=== PATIENT | male | born 1985 | race Caucasian/White ===

== ENCOUNTER 2018-06-25 19:23 | Observation (INO) | payer MEDICARE, SELFPAY ==
[2018-06-25] VITALS (7 sets, daily range): BP systolic 138–164; BP diastolic 56–89; PULSE 94–107; RESP 18–24; TEMP 37.1; O2SAT 90–94; BMI 66.4
--- NOTE | 2018-06-25 19:59 | EKG12_ITS ---
Test Reason : SOB Blood Pressure : / mmHG Vent. Rate : 101 BPM Atrial Rate : 101 BPM P-R Int : 152 ms QRS Dur : 108 ms QT Int : 378 ms P-R-T Axes : 046 071 023 degrees QTc Int : 490 ms Sinus tachycardia Otherwise normal ECG Confirmed by MARCY GONZALEZ, FAN ([id number]), video effects editor HUMBERTO VELEZ ([id number]) on 06/28/2018 3:19:17 PM Referred By: POPPY Confirmed By:FAN VIDAL MD
--- NOTE | 2018-06-25 20:01 | RAD_ITS ---
STUDY: X-RAY CHEST REASON FOR EXAM: Male, 33 years old. Shortness of breath TECHNIQUE: Single frontal view COMPARISON: Frontal and lateral views FINDINGS: The lungs are not fully expanded. There is mild right basilar interstitial prominence. Normal size heart. Normal mediastinum and hair. Normal visualized pulmonary arteries. Normal visualized aortic arch and descending thoracic aorta. Normal visualized thoracic spine. Normal visualized ribs, clavicles, and shoulders. There is no demonstrated abnormality of the visualized soft tissue structures of the upper abdomen. RAD/Chest 1 View (Portable) IMPRESSION: Mild right basilar interstitial prominence. Electronically Signed: Monico Ackerman DO at 20:24 EDT Tel [phone], Service support ,
--- NOTE | 2018-06-25 20:01 | ED.DCSUM_ITS ---
- ER Visit Summary Date of Service: 06/25/18 Chief Complaint: Shortness of breath History of Present Illness: The patient is a 33 M presenting with lightheadedness and shortness of breath. Patient states he was taking a shower and he started to feel lightheaded. He needed to use the handle bar in the show er to avoid falling. He did not pass out. He states he felt dizzy following this as well. EMS was called. He now feels improved on oxygen. He states he had mid chest pain associated with this as well. He has had a cough and sinus congestion. He denies fever or other complaints. Physical Examination: Vitals are stable. Patient is afebrile. Alert no acute distress. HEENT exam is unremarkable. Neck is supple. Lungs are clear and equal bilaterally. Heart is regular rate and rhythm. Abdomen is soft nontender nondistended. Extremities are unremarkable. Skin is warm and dry. No focal neurologic deficit. Remainder of exam is unremarkable. Emergency Department Course and Treatment: EKG is sinus tachycardia rate of 101. Chest x-ray shows right basilar interstitial prominence. CBC, chemistries unremarkable other than glucose 236. Troponin is less than 0.015. Patient was given albuterol Atrovent aerosol. Attempted to remove his nasal cannula and he desaturates into the 80s. He is satting 90% on 4 L. CTA chest was obtained and shows no evidence of PE. On re-evaluation he is now chest pain free. Due to his chest pain and hypoxia will discuss with the hospitalist for observation. Disposition: Observation Impression: Chest pain, hypoxia This note was generated with [employer] dictation software. It may contain incorrect words, spelling, and punctuation that were not noted in review of the chart prior to signing ED Disposition - Plan for ED Patient: Chief Complaint: Shortness of Breath Referrals: Manpreet Milan MD [Primary Care Provider] -
[2018-06-25] MEDS: Aspirin 81 MG TAB.CHEW 324 MG PO (20:10)
[2018-06-25 20:17] LABS: Absolute Lymphocyte Count 2.13 X10^3/ul (0.83-4.51); Absolute Neutrophil Count 6.7 X10^3/uL (2.0-7.7); Basophil# 0.03 X10^3/uL; Basophil% 0.3 % (0-1); Hemoglobin 14.6 g/dl (13.0-16.5); Lymphocyte # 2.13 X10^3/ul (4.0); Lymphocyte % 21.4 % (19-41); Mean Corp Hgb Conc 31.7 g/gl (32-36); Mean Corpuscular Hgb 27.8 pg (27.0-32.0); Mean Corpuscular Volume 87.6 fL (80-94); Mean Platelet Vol. 11.7 fl (6.2-12.0); Monocyte# 0.68 X10^3/uL; Monocyte% 6.8 % (0-10); Neutrophil # 6.68 X10^3/uL (2.7-7.7); Platelet Count 199 K/mm3 (150-450); RBC Distribution Width CV 15.1 % (11.6-14.6); RBC Distribution Width SD 48.2 fl (35.1-43.9); Red Blood Count 5.25 M/mm3 (4.6-6.2)
[2018-06-25 20:18] LABS: Differential Indicated SCAN CRITERIA MET; POSITIVE COUNT YES; POSITIVE DIFFERENTIAL NO; POSITIVE MORPHOLOGY NO
[2018-06-25 20:21] LABS: Anion Gap 9 (5-15); BUN 10 mg/dL (7-18); BUN/Creat Ratio 10.6 RATIO (10-20); Calcium,Total 8.2 mg/dL (8.5-10.1); Chloride 103 mmol/L (98-107); Creatinine, Serum 0.94 mg/dL (0.70-1.30); EST Glomerular Filtration Rate 97 mL/min (>60); Est Glom Filt Rate - Afr Amer 118 mL/min (>60); Estimated Creatinine Clearance 92.72 ml/min; Glucose 236 mg/dL (74-106); Potassium 3.5 mmol/L (3.5-5.1); Sodium Level 140 mmol/L (136-145)
[2018-06-25 20:31] LABS: Differential Comment SCANNED
--- NOTE | 2018-06-25 20:44 | CT_ITS ---
STUDY: CTA CHEST REASON FOR EXAM: Male, 33 years old. Shortness of breath, syncope RADIATION DOSAGE (If Supplied By Facility): CTDIvol = ( 22.07 ) mGy, DLP = ( 885.60 ) mGycm TECHNIQUE: The examination was performed with the intravenous administration of 100ML ml of Isovue 370 contrast material. Post-processing of the angiographic images was performed, with multiplanar reformation and 3D reconstruction. Individualized dose optimization techniques were used for this CT. COMPARISON: None. FINDINGS: Normal enhancement of the main pulmonary artery and right and left pulmonary arteries. Normal enhancement of the bilateral peripheral pulmonary arteries. There is no demonstrated pulmonary embolism. Normal thoracic aorta and visualized great vessels. There is no demonstrated aortic dissection. Normal heart and pericardium. Normal mediastinum. Normal hilar regions. Normal visualized trachea and bronchi. The lungs are well expanded. Normal pulmonary parenchyma. Normal pleura. Normal chest wall structures. Mild degenerative vertebral changes. Prominent spleen. CT/CTA Chest W/WO Contrast IMPRESSION: No demonstrated pulmonary embolism or arterial dissection. Electronically Signed: Monico Ackerman DO at 22:51 EDT Tel [phone], Service support ,
[2018-06-25] MEDS: Ipratropium/Albuterol Sulfate 3 ML AMPUL.NEB INHALATION (20:50)
--- NOTE | 2018-06-25 23:10 | HP.PCM_ITS ---
Problem List (1) Chest pain Status: Acute History of Present Illness Date of Admission: 06/26/18 Chief Complaint: chest pain The patient is a 33 year old M with a significant history of asthma; obesity; epilepsy; hypertension; diabetes; obstructive sleep apnea who presented with chest pain that started on the day of his admission. Patient reported that while in the shower he had chest pain; shortness of breath and wobbliness of his feet requiring him to hold onto a rail in the bathroom. He reports his chest pain as a baby sitting on his chest. His chest pain severity was 5 out of 10. His chest pain stayed constant. In the emergency department he was given oxygen which helped improved his chest pain. He reports no aggravating factor to his chest pain. His chest pain was nonradiating. However he had some frontal headache at the time of the chest pain. Associated with his symptoms is lightheadedness; diaphoresis and nausea. Patient reports that typically his oxygen saturation is in the low 90s. However on admission patient's patient oxygen saturation was 87 on 2 L. In the emergency department his troponin was negative. His EKG showed sinus tachycardia. Past Medical History Past Medical History (Chronic Problems): Chronic Problems Benign hypertension (Chronic) Obstructive sleep apnea (Chronic) History of cerebral palsy (Chronic) Type II diabetes mellitus (Chronic) Gout (Chronic) Bronchial asthma (Chronic) Super obesity (Chronic) Vertigo (Chronic) S/P CAPACITY PLANNING ANALYST shunt (Chronic) Allergies DUST Allergy (Uncoded 06/25/18 19:29) Other Home Medications: Ambulatory Orders Medication Instructions Recorded Allopurinol [Zyloprim] 300 mg PO DAILY 06/09/15 Fluoxetine [Prozac] 10 mg PO DAILY 06/09/15 Furosemide [Lasix] 40 mg PO BID 06/09/15 Metformin(XR) [Glucophage Xr] 500 mg PO DAILY 06/09/15 Nebivolol HCl [Bystolic (Beta 10 mg PO DAILY 06/09/15 Leonora)] levETIRAcetam tablet [Keppra 500 mg PO BID #60 tablet 10/18/15 tablet] Montelukast [Singulair] 10 mg PO DAILY 01/26/16 Albuterol Sulfate [Ventolin Hfa] 18 gm IH BID 05/07/16 Budesonide/Formoterol 80-4.5 2 puff INHALATION BID 09/14/16 [Symbicort 80-4.5 Mcg Inhaler] Theophylline Anhydrous [Jules-24] 400 mg PO BID 01/22/17 Guaifenesin [Mucinex] 1,000 mg PO BID PRN 01/24/17 Baclofen 20 mg PO DAILY 06/25/18 Levocetirizine Dihydrochloride 5 mg PO DAILY 06/25/18 [Allergy Relief] Pantoprazole Sodium [Protonix] 40 mg PO DAILY 06/25/18 Potassium 1,080 mg PO DAILY 06/25/18 Surgical History: - - Cerebral shunt secondary to hydrocephalus, tendon release Psychiatric History: No pertinent psych hx Lives: Alone Smoking Status: Never smoker - *Family History Maternal History Items: Diabetes Paternal History Items: - - History of atrial fibrillation Sibling History Items: Diabetes Review of Systems Constitutional: Denies: Chills, Fever, Weight Change HEENT: Reports: Head Aches. Denies: Sinus Congestion, Sinus Drainage Cardiovascular: Reports: Chest Pain, Light Headedness. Denies: Palpitations Respiratory: Reports: Shortness of Breath. Denies: Cough, Sputum production Gastrointestinal: Reports: Nausea. Denies: Abdominal Pain, Vomiting Genitourinary: Denies: Dysuria Musculoskeletal: Denies: Joint Pain, Joint Tenderness Skin: Denies: Rash, Wounds Neurological: Denies: Numbness, Tingling, Focal weakness Psychiatric: Denies: Anxiety, Depression, Homicidal Ideations, Suicidal Ideations Hematologic/ Lymphatic: Denies: Easy Bruising, Easy Bleeding VTE Information - Inpt Only VTE Present on Admission: No VTE Mechan Device Prophylaxis: None VTE Pharm Prophylaxis ordered?: Yes Patient Problems: Active and Suspected Problems Chest pain (Acute) - Physical Exam General: Alert, Oriented x3, Cooperative HEENT: Atraumatic, PERRLA, EOMI, Normocephalic Neck: Supple, No JVD, Negative Carotid Bruits Lungs: Diminished - Neck thickening to body habitus. Cardiovascular: No murmurs, Tachycardic Abdomen: Bowel Sounds Present, Soft, Non Tender Extremities: No edema, Capillary Refill Less than 3 Seconds Skin: No rashes, No breakdown Musculoskeletal: No Tenderness to Palpation of Joints or Extremities Neurological: Cranial nerves II-XII grossly intact Psych/Mental Status: Normal Affect, Appropriate Vital Signs Temp Pulse Resp BP Pulse Ox 98.8 F 103 H 18 138/56 H 94 06/25/18 19:24 06/25/18 22:00 06/25/18 22:00 06/25/18 22:00 06/25/18 22:00 Oxygen Flow Rate (L/min) 4 Oxygen Delivery Method Nasal Cannula Weight: 175.4 kg Body Mass Index (BMI) 66.4 Laboratory Tests Past 24 Hrs 06/25/18 06/25/18 19:36 19:36 WBC 10.0 RBC 5.25 Hgb 14.6 Hct 46.0 MCV 87.6 MCH 27.8 MCHC 31.7 L RDW 15.1 H RDW Differential 48.2 H Plt Count 199 MPV 11.7 Immature Gran % (Auto) 0.500 Neut % (Auto) 67.0 Lymph % (Auto) 21.4 Converse % (Auto) 6.8 Eos % (Auto) 4.0 Baso % (Auto) 0.3 Absolute Neuts (auto) 6.7 Absolute Lymphs (auto) 2.13 Total Counted Not Reportable Differential Comment SCANNED Sodium 140 Potassium 3.5 Chloride 103 Carbon Dioxide 28.0 Anion Gap 9 BUN 10 Creatinine 0.94 Estim Creat Clear Calc 92.72 Est GFR (MDRD) Af Amer 118 Est GFR (MDRD) Non-Af 97 BUN/Creatinine Ratio 10.6 Glucose 236 H Calcium 8.2 L Troponin I < 0.015 Assessment/Plan All Active Problems Chest pain (Acute) The patient is a 33 year old M with a significant history of asthma; morbid obesity; epilepsy; hypertension; diabetes; obstructive sleep apnea who presented with chest pain; shortness of breath and lightheadedness. Chest pain Admit to a monitored bed on PCU CXR independently reviewed confirms mild bibasilar infiltrates. EKG independently reviewed confirms sinus tachycardia Received aspirin 324 mg at emergency department ASA 81 mg p.o. daily SL NTG 0.4 mg prn as needed for chest pain Serial cardiac enzymes Stat EKG as needed for chest pain Stress test in the AM if the cardiac enzymes are negative . Because patient is unsure whether he can run a chemical stress test was ordered. Echocardiogram ordered. Acute hypoxemic respiratory failure. Oxygen saturation 87% on 2 L at admission. Etiology unclear at this time. Patient has a history of asthma but it did not appears that he was in asthma exacerbation. He had no wheezing or coughing spell. With his body habitus he is at risk for obesity hypoventilation syndrome but again is unclear why his oxygen saturation is acutely decreased if indeed he runs low 90s at baseline. As needed oxygen. At home he takes albuterol scheduled. DuoNeb scheduled. Albuterol as needed Echocardiogram ordered. Hypertension On admission blood pressure was not within goal Nebivolol continued Trend blood pressures and titrate blood pressure medication. Diabetes mellitus On admission blood glucose was not within goal. Home metformin held Correction scale insulin ordered. Obstructive sleep apnea At home patient uses a CPAP with oxygen bled in. CPAP per home setting; bleed oxygen in. Epilepsy Keppra continued Gout Allopurinol continued Depression Prozac continued History of bilateral leg swelling. Patient denies any history of heart failure Home Lasix with potassium continued DVT prophylaxis Subcutaneous Lovenox. Code Visit OBSV E&M: 19655 Initial observation care L3
[2018-06-26] VITALS (12 sets, daily range): BP systolic 136–178; BP diastolic 77–104; PULSE 79–104; RESP 18–22; TEMP 36.6–36.8; O2SAT 90–97; BMI 65.2; BMI 65.3
--- NOTE | 2018-06-26 00:26 | EKG12_ITS ---
Test Reason : AM EKG Blood Pressure : / mmHG Vent. Rate : 078 BPM Atrial Rate : 078 BPM P-R Int : 164 ms QRS Dur : 108 ms QT Int : 410 ms P-R-T Axes : 042 072 032 degrees QTc Int : 467 ms Normal sinus rhythm Normal ECG When compared with ECG of 26-JUN-2018 00:29, MANUAL COMPARISON REQUIRED, DATA IS UNCONFIRMED Confirmed by MARCY GONZALEZ, FAN ([id number]), supervising editor trailer HUMBERTO VELEZ ([id number]) on 07/01/2018 4:08:35 PM Referred By: GWENDOLYN Confirmed By:FAN VIDAL MD
[2018-06-26] MEDS: Albuterol 2.5 MG/3 ML VIAL.NEB. INHALATION (00:39)
[2018-06-26] MEDS: Atorvastatin Calcium 80 MG Tablet PO (00:51)
[2018-06-26 01:06] LABS: Bedside Glucose 153 mg/dL (70-110)
--- NOTE | 2018-06-26 01:14 | ECHOCS_ITS ---
Reason For Study: Chest Pain Procedure This was a 2D Doppler, Color Flow transthoracic echocardiogram. Technically difficult study due to patients body habitus. Echo images obtained with patient supine. Exam performed portable in patient room. Left Ventricle Normal LV size. Left ventricular systolic function is normal. The estimated ejection fraction is 60 %. Normal diastology for age. No regional wall motion abnormalities noted. Right Ventricle Normal RV size. Normal systolic function. Atria The left atrium is not well visualized. The right atrium is not well visualized. Mitral Valve Mitral valve not well visualized. Tricuspid Valve The tricuspid valve is not well visualized. Unable to estimate RV systolic pressure due to inadequate jet, pulmonary artery pressure probably normal. Unable to estimate RV systolic pressure/pulmonary artery pressure due to technically difficult study. Aortic Valve The aortic valve is not well visualized. Great Vessels Normal aortic root. Pericardium/Pleural No pericardial effusion. Medication Diluted definity 4ml given slow IV push to enhance endocardial definition. MMode/2D Measurements & Calculations LVIDd: 5.0 cm IVSd: 1.5 cm LVIDs: 2.8 cm LVPWd: 1.7 cm FS: 44.9 % Time Measurements MV dec time: 0.17 sec Doppler Measurements & Calculations MV E max william: 97.3 cm/sec Lat Peak E' William: 9.2 cm/sec Med Peak E' William: 11.7 cm/sec MV A max william: 73.4 cm/sec E/E' lat: 10.5 E/E' med: 8.3 MV E/A: 1.3 MV V2 max: 122.3 cm/sec MV P1/2t max william: 123.3 cm/sec Ao V2 max: 157.0 cm/sec MV max P.0 mmHg MV P1/2t: 58.0 msec Ao max P.9 mmHg MV V2 mean: 71.4 cm/sec MV dec slope: 622.8 cm/sec2 MV mean P.4 mmHg MVA(P1/2t): 3.8 cm2 MV V2 VTI: 28.8 cm LV V1 max: 132.1 cm/sec PA V2 max: 113.6 cm/sec LV V1 max P.0 mmHg Interpretation Summary Normal LV size. Left ventricular systolic function is normal. The estimated ejection fraction is 60 %. Normal diastology for age. Contrast injection was performed. The study was technically difficult. Ordering Physician: Javy Carr Referring Physician: Manpreet Milan Performed By: Zach Mcdermott RCS
[2018-06-26 04:18] LABS: Anion Gap 11 (5-15); BUN 9 mg/dL (7-18); BUN/Creat Ratio 13.2 RATIO (10-20); Calcium,Total 7.8 mg/dL (8.5-10.1); Chloride 106 mmol/L (98-107); Creatinine, Serum 0.68 mg/dL (0.70-1.30); EST Glomerular Filtration Rate 142 mL/min (>60); Est Glom Filt Rate - Afr Amer 171 mL/min (>60); Estimated Creatinine Clearance 128.17 ml/min; Glucose 160 mg/dL (74-106); Potassium 3.7 mmol/L (3.5-5.1); Sodium Level 142 mmol/L (136-145)
[2018-06-26 04:30] LABS: Absolute Lymphocyte Count 1.85 X10^3/ul (0.83-4.51); Absolute Neutrophil Count 5.5 X10^3/uL (2.0-7.7); Basophil# 0.04 X10^3/uL; Basophil% 0.5 % (0-1); Eosinophil# 0.39 X10^3/uL; Eosinophils% 4.5 % (0-5); Hematocrit 44.4 % (40-54); Hemoglobin 14.3 g/dl (13.0-16.5); Lymphocyte # 1.85 X10^3/ul (4.0); Lymphocyte % 21.5 % (19-41); Mean Corp Hgb Conc 32.2 g/gl (32-36); Mean Corpuscular Hgb 28.7 pg (27.0-32.0); Mean Corpuscular Volume 89.2 fL (80-94); Mean Platelet Vol. 11.2 fl (6.2-12.0); Monocyte# 0.79 X10^3/uL; Monocyte% 9.2 % (0-10); Platelet Count 158 K/mm3 (150-450); RBC Distribution Width CV 15.4 % (11.6-14.6); RBC Distribution Width SD 49.2 fl (35.1-43.9); Red Blood Count 4.98 M/mm3 (4.6-6.2); White Blood Count 8.6 K/mm3 (4.4-11.0)
[2018-06-26 04:31] LABS: Differential Indicated SCAN CRITERIA MET; POSITIVE COUNT NO; POSITIVE DIFFERENTIAL NO; POSITIVE MORPHOLOGY YES
[2018-06-26 04:32] LABS: Differential Comment SCANNED
[2018-06-26] MEDS: 0.9% NaCl Peripheral Flush Adult/Peds IV (05:35)
[2018-06-26] MEDS: Aspirin E.C. 81 MG Tablet PO (05:35)
[2018-06-26 05:55] LABS: International Normalized Ratio 1.1; Partial Thromboplast Time 27.8 Seconds (24.1-36.2); Prothrombin Time (Protime)PT. 13.7 SECONDS (11.7-14.9)
--- NOTE | 2018-06-26 05:55 | EKG12_ITS ---
Test Reason : ADM EKG Blood Pressure : / mmHG Vent. Rate : 085 BPM Atrial Rate : 085 BPM P-R Int : 168 ms QRS Dur : 102 ms QT Int : 386 ms P-R-T Axes : 033 069 028 degrees QTc Int : 459 ms Normal sinus rhythm Low voltage QRS Borderline ECG When compared with ECG of 22-JAN-2017 20:15, No significant change was found Confirmed by MARCY GONZALEZ, FAN ([id number]), society editor HUMBERTO VELEZ ([id number]) on 07/01/2018 4:08:45 PM Referred By: GWENDOLYN Confirmed By:FAN VIDAL MD
[2018-06-26 06:03] LABS: Cholesterol 176 mg/dL (200); High Density Lipoprotein 36 mg/dL; Triglycerides 107 mg/dL; Very Low Density Lipoprotein 21 mg/dL (5-40)
[2018-06-26 06:50] LABS: Bedside Glucose 193 mg/dL (70-110)
[2018-06-26] MEDS: Budesonide Respules 0.5 MG/2 ML AMPUL.NEB. INHALATION (07:29)
[2018-06-26] MEDS: Ipratropium/Albuterol Sulfate 3 ML AMPUL.NEB INHALATION (07:29)
--- NOTE | 2018-06-26 10:02 | STRESSREP ---
Stress Test Report Pharmacologic myocardial perfusion stress test. 33-year-old male with a history of chest pain. Stress protocol: Resting EKG demonstrates normal sinus rhythm with a rate of 88 bpm normal intervals and noted resting blood pressure 142/70 mmHg. 0.4 mg of regadenoson was infused per usual protocol followed by rapid intravenous saline flush injection continuous EKG monitoring was performed. The maximum heart rate attained was 111 bpm which was 59% of maximum predicted heart rate the maximum workload attained was 1 metabolic equivalent. At rest no ST or T wave changes were noted suggest abnormal flow reserve and at peak infusion no ST or T wave changes were noted suggest abnormal flow reserve. Resting blood pressure 142/70 mmHg with a maximum blood pressure 146/70 6 cm of mercury. Myocardial perfusion protocol. 15.0 mCi of technetium 99m sestamibi was injected at rest. 0.4 mg of regadenoson was infused per usual protocol. Peak infusion 45.0 mCi of technetium 99m sestamibi was injected stress images were obtained stress and rest images were reconstructed and compared in the short axis vertical long horizontal long axis. Gated images were also obtained per Perfusion SPECT analysis: Review of the stress images demonstrate normal uptake of tracer noted in all areas of the myocardium. The resting images similarly demonstrate normal uptake of tracer noted in all areas of the myocardium. No areas of reversibility are noted suggest ischemia no previous infarct is noted. Gated SPECT analysis: The gated ejection fraction is 71%. Conclusion: Normal pharmacologic myocardial perfusion stress test. Preserved ejection fraction.
[2018-06-26] MEDS: Furosemide 40 MG Tablet PO (10:26)
[2018-06-26] MEDS: Baclofen 10 MG Tablet 20 MG PO (10:26)
[2018-06-26] MEDS: levETIRAcetam 500 MG Tablet PO (10:26)
[2018-06-26] MEDS: Pantoprazole Sodium 40 MG Tablet PO (10:26)
[2018-06-26] MEDS: FLUoxetine 10 MG Capsule PO (10:26)
[2018-06-26] MEDS: Montelukast 10 MG Tablet PO (10:26)
[2018-06-26] MEDS: Nebivolol HCl 10 MG Tablet PO (10:27)
[2018-06-26] MEDS: Allopurinol 300 MG Tablet PO (10:27)
[2018-06-26] MEDS: Loratadine 10 MG Tablet 5 MG PO (10:31)
--- NOTE | 2018-06-26 11:32 | DCINST_ITS ---
- Discharge Diagnoses Current Active Problems: Current Active and Chronic Problems Chest pain (Acute) Reason(s) for Visit for Discharge Instructions: Chest pain, Shortness of breath You will use the following diet at home:: Calorie/Carbohydrate Controlled (specify 1200, 1400, etc), Cardiac Your food should be the consistency of: Regular Your liquids should be the consistency of: Regular/Thin Discharge Activity: Return to Normal Activity Additional Instructions: Continue to take all your medications and use your CPAP at night and when sleeping. Allergies/Adverse Reactions: Allergies DUST Allergy (Uncoded 06/26/18 00:22) Other Medications to take at Discharge Allopurinol [Zyloprim] 300 mg PO DAILY 06/09/15 Fluoxetine [Prozac] 10 mg PO DAILY 06/09/15 Furosemide [Lasix] 40 mg PO BID 06/09/15 Metformin(XR) [Glucophage Xr] 500 mg PO DAILY 06/09/15 Nebivolol HCl [Bystolic (Beta Leonora)] 10 mg PO DAILY 06/09/15 levETIRAcetam tablet [Keppra tablet] 500 mg PO BID #60 tablet 10/18/15 Montelukast [Singulair] 10 mg PO DAILY 01/26/16 Albuterol Sulfate [Ventolin Hfa] 18 gm IH BID 05/07/16 Budesonide/Formoterol 80-4.5 [Symbicort 80-4.5 Mcg Inhaler] 2 puff INHALATION BID 05/07/16 Theophylline Anhydrous [Jules-24] 400 mg PO BID 01/22/17 Guaifenesin [Mucinex] 1,000 mg PO BID PRN 01/24/17 Baclofen 20 mg PO DAILY 06/25/18 Levocetirizine Dihydrochloride [Allergy Relief] 5 mg PO DAILY 06/25/18 Pantoprazole Sodium [Protonix] 40 mg PO DAILY 06/25/18 Potassium 1,080 mg PO DAILY 06/25/18 Primary Care Physician: Manpreet Milan MD [Primary Care Provider] - Please follow up with your Primary Care Physician in: within 2 weeks Test Results: Test results from this visit will be discussed in further detail at your follow- up appointment, if applicable. Proposed Discharge Date: 06/26/18
--- NOTE | 2018-06-26 11:34 | DS.PCM_ITS ---
Discharge Date and Diagnosis Date of Admission: 06/26/18 Date of Discharge: 06/26/18 - Primary Discharge Diagnosis Active and Suspected Problems Chest pain (Acute) Acute hypoxic respiratory insufficiency Super super morbid obesity - Secondary Discharge Diagnosis Chronic Problems Benign hypertension (Chronic) Obstructive sleep apnea (Chronic) History of cerebral palsy (Chronic) Type II diabetes mellitus (Chronic) Gout (Chronic) Bronchial asthma (Chronic) Super obesity (Chronic) Vertigo (Chronic) S/P [employer] shunt (Chronic) Hospital Course and Treatment Imaging Results: 06/26/18 05:55 Nuclear Stress Test - Chemical [NM] AM (NON MEDS) None Operations: None Procedures: None Summary of Care Provided: The patient is a 33 year old M with a history of super super morbid obesity, asthma who comes in with complaints of shortness of breath and chest pain. Admitting EKG shows sinus tachycardia. He was found to be hypoxic with SPO2 of 87% on 2 L. He was managed on a telemetry bed with no acute events. He had a stress test in the morning that was negative. Patient's orthostatic vitals were negative on the day of discharge. He was ambulated with no drops in his oxygenation. He was oxygenating not less than 92% on room air Subjective: Patient was seen and examined. Denies any new complains. Denies worsening SOB. He had stress test that was negative. - Physical Exam General: Alert, Oriented x3, Cooperative, No apparent distress - super super morbidly obese, - HEENT: Atraumatic, PERRLA, EOMI, Normocephalic Oral: Moist Mucosa Neck: Supple, No JVD, Negative Carotid Bruits Lungs: Clear to auscultation, Normal air movement Cardiovascular: Regular rate, Regular Rhythm, Normal S1, Normal S2, No murmurs Abdomen: Bowel Sounds Present, Soft, Non Tender, Non-Distended, No Hepato- splenomegaly Extremities: No edema Skin: No rashes, No breakdown Musculoskeletal: No Tenderness to Palpation of Joints or Extremities Lymphatic: No Cervical, Supraclavicular, or Inguinal Adenopathy Neurological: Cranial nerves II-XII grossly intact, Motor Exam 5/5 strength throughout Psych/Mental Status: Normal Affect, Appropriate Vital Signs Temp Pulse Resp BP Pulse Ox 98.0 F 85 18 152/87 H 91 06/26/18 10:20 06/26/18 11:32 06/26/18 10:20 06/26/18 11:32 06/26/18 11:32 Oxygen Flow Rate (L/min) 5 Oxygen Delivery Method Room Air Weight: 172.5 kg Body Mass Index (BMI) 65.2 Orthostatic Vital Signs Start: 06/26/18 11:32 Freq: q24h Status: Active Protocol: Activity Type Activity Date Activity User E-Sign Co-Sign Detail Recorded Client Recorded Date Recorded By Document 06/26/18 11:32 DIRECTOR OF PUBLIC SAFETY [id number] 06/26/18 11:33 DIRECTOR OF PUBLIC SAFETY 06/26/18 11:32 Orthostatic Vitals Standing -Blood Pressure (90/60-120/80) 158/94 H -Extremity Use Left Arm -Pulse Rate (60-100) 87 Sitting -Blood Pressure (90/60-120/80) 147/104 H -Extremity Use Left Arm -Pulse Rate (60-100) 87 Lying -Blood Pressure (90/60-120/80) 152/87 H -Extremity Use Left Arm -Pulse Rate (60-100) 85 Intake and Output for Last 24 Hours 06/24/18 06/25/18 06/26/18 23:59 23:59 23:59 Intake Total 120 / 120 Balance 120 / 120 Laboratory Tests Past 24 Hrs 06/25/18 06/25/18 06/26/18 19:36 19:36 00:40 WBC 10.0 RBC 5.25 Hgb 14.6 Hct 46.0 MCV 87.6 MCH 27.8 MCHC 31.7 L RDW 15.1 H RDW Differential 48.2 H Plt Count 199 MPV 11.7 Immature Gran % (Auto) 0.500 Neut % (Auto) 67.0 Lymph % (Auto) 21.4 [place] % (Auto) 6.8 Eos % (Auto) 4.0 Baso % (Auto) 0.3 Absolute Neuts (auto) 6.7 Absolute Lymphs (auto) 2.13 Total Counted Not Reportable Differential Comment SCANNED PT INR APTT Sodium 140 Potassium 3.5 Chloride 103 Carbon Dioxide 28.0 Anion Gap 9 BUN 10 Creatinine 0.94 Estim Creat Clear Calc 92.72 Est GFR (MDRD) Af Amer 118 Est GFR (MDRD) Non-Af 97 BUN/Creatinine Ratio 10.6 Glucose 236 H Calcium 8.2 L Troponin I < 0.015 < 0.015 Triglycerides Cholesterol LDL Cholesterol VLDL Cholesterol HDL Cholesterol 06/26/18 06/26/18 06/26/18 03:18 03:18 03:18 WBC 8.6 RBC 4.98 Hgb 14.3 Hct 44.4 MCV 89.2 MCH 28.7 MCHC 32.2 RDW 15.4 H RDW Differential 49.2 H Plt Count 158 MPV 11.2 Immature Gran % (Auto) 0.300 Neut % (Auto) 64.0 Lymph % (Auto) 21.5 [place] % (Auto) 9.2 Eos % (Auto) 4.5 Baso % (Auto) 0.5 Absolute Neuts (auto) 5.5 Absolute Lymphs (auto) 1.85 Total Counted Not Reportable Differential Comment SCANNED PT INR APTT Sodium 142 Cancelled Potassium 3.7 Cancelled Chloride 106 Cancelled Carbon Dioxide 25.0 Cancelled Anion Gap 11 Cancelled BUN 9 Cancelled Creatinine 0.68 L Cancelled Estim Creat Clear Calc 128.17 Cancelled Est GFR (MDRD) Af Amer 171 Cancelled Est GFR (MDRD) Non-Af 142 Cancelled BUN/Creatinine Ratio 13.2 Cancelled Glucose 160 H Cancelled Calcium 7.8 L Cancelled Troponin I < 0.015 Triglycerides Cholesterol LDL Cholesterol VLDL Cholesterol HDL Cholesterol 06/26/18 06/26/18 05:30 05:30 WBC RBC Hgb Hct MCV MCH MCHC RDW RDW Differential Plt Count MPV Immature Gran % (Auto) Neut % (Auto) Lymph % (Auto) [place] % (Auto) Eos % (Auto) Baso % (Auto) Absolute Neuts (auto) Absolute Lymphs (auto) Total Counted Differential Comment PT 13.7 INR 1.1 APTT 27.8 Sodium Potassium Chloride Carbon Dioxide Anion Gap BUN Creatinine Estim Creat Clear Calc Est GFR (MDRD) Af Amer Est GFR (MDRD) Non-Af BUN/Creatinine Ratio Glucose Calcium Troponin I < 0.015 Triglycerides 107 Cholesterol 176 LDL Cholesterol 119 VLDL Cholesterol 21 HDL Cholesterol 36 L POC Glucose 06/26/18 06/26/18 06:25 01:00 POC Glucose 193 H 153 H Discharge Diet: Low fat/ Low Cholesterol, 2000 mg Sodium Diet Discharge Activity: Return to Normal Activity Home Medications: Medications to take at Discharge Allopurinol [Zyloprim] 300 mg PO DAILY 06/09/15 Fluoxetine [Prozac] 10 mg PO DAILY 06/09/15 Furosemide [Lasix] 40 mg PO BID 06/09/15 Metformin(XR) [Glucophage Xr] 500 mg PO DAILY 06/09/15 Nebivolol HCl [Bystolic (Beta Leonora)] 10 mg PO DAILY 06/09/15 levETIRAcetam tablet [Keppra tablet] 500 mg PO BID #60 tablet 10/18/15 Montelukast [Singulair] 10 mg PO DAILY 01/26/16 Albuterol Sulfate [Ventolin Hfa] 18 gm IH BID 05/07/16 Budesonide/Formoterol 80-4.5 [Symbicort 80-4.5 Mcg Inhaler] 2 puff INHALATION BID 05/07/16 Theophylline Anhydrous [Jules-24] 400 mg PO BID 01/22/17 Guaifenesin [Mucinex] 1,000 mg PO BID PRN 01/24/17 Baclofen 20 mg PO DAILY 06/25/18 Levocetirizine Dihydrochloride [Allergy Relief] 5 mg PO DAILY 06/25/18 Pantoprazole Sodium [Protonix] 40 mg PO DAILY 06/25/18 Potassium 1,080 mg PO DAILY 06/25/18 Primary Care Physician: Manpreet Milan MD [Primary Care Provider] - Please follow up with your Primary Care Physician in: within 2 weeks Disposition: Home Minutes spent on discharge:: 40 Patient Condition:: Stable Medical Necessity - Tobacco Use Smoking Status: Never smoker Meaningful Use Info Meaningful Use Diagnoses (Choose all that apply): None applicable Code Visit OBSV E&M: 72506 Observation care discharge
== END 2018-06-26 11:39 | disposition home or self-care (01) ==
LOC: ED 20:08 → PCU 23:30
PROVIDERS: Admitting Provider Hospitalist; Emergency Provider Emergency Medicine; Family Provider Family Medicine; PCP Family Medicine; Visit Provider Internal Medicine
DX: R07.89 Other chest pain (principal); J96.01 Acute respiratory failure with hypoxia; E66.01 Morbid (severe) obesity due to excess calories; G47.33 Obstructive sleep apnea (adult) (pediatric); G80.9 Cerebral palsy, unspecified; E11.9 Type 2 diabetes mellitus without complications; I10 Essential (primary) hypertension; M10.9 Gout, unspecified; J45.909 Unspecified asthma, uncomplicated; R42 Dizziness and giddiness; R00.0 Tachycardia, unspecified; G40.909 Epilepsy, unspecified, not intractable, without status epilepticus; Z98.2 Presence of cerebrospinal fluid drainage device; Z79.899 Other long term (current) drug therapy; Z79.84 Long term (current) use of oral hypoglycemic drugs; G91.9 Hydrocephalus, unspecified; Z68.44 Body mass index [BMI] 60.0-69.9, adult; Z71.3 Dietary counseling and surveillance; F32.9 Major depressive disorder, single episode, unspecified
CPT/HCPCS: 36415; 71045; 71275; 78452; 80048; 80061; 82962; 84484; 85025; 85610; 85730; 93005; 93017; 93306; 94640; 94660; 99218; 99285; A9500; Q9957; Q9967; A4216; C8929; G0378; J2785

== ENCOUNTER → 2018-08-05 19:26 | Outpatient (CLI) | payer MEDICARE, SELFPAY ==
[2018-08-05 21:45] LABS: Chlamydia Trachomatis by PCR Negative (Negative); Neisserai gonorrhoeae by PCR Negative (Negative); Probe Check PASS; Sample Adequacy Control PASS; Specimen Processing Control PASS
--- OUTSIDE RECORDS SUMMARY | 2018-09-21 15:12 | XMS RPT_ITS ---
:1985 Author Organization OH[facility] Care Team Providers Name Role Phone Zenon Carrillo Attending Unavailable Manpreet Milan Primary Care Unavailable Zenon Carrillo Referring Unavailable Manpreet Milan Primary Care Unavailable Javy Carr Admitting Unavailable Paintsil, [place] Attending Unavailable Javy Carr Admitting Unavailable Javy Carr Attending Unavailable Manpreet Milan Primary Care Unavailable Javy Carr Consulting Unavailable Javy Carr Admitting Unavailable Paintsil, [place] Attending Unavailable Manpreet Milan Primary Care Unavailable Paintsil, [place] Consulting Unavailable Bruce Victor Attending Unavailable Javy Carr Referring Unavailable PROBLEMS PROBLEMS DATE TYPE CONDITION / CODE ATTENDING STATUS SOURCE 08/06/2018 Unknown R35.0 - Frequency Zenon Carrillo Active [facility] of micturition / E Community R35.0(ICD-10) Hospital Repository 07/12/2018 Unknown R07.9 - Chest [place], [place] Active [facility] pain, unspecified Community / R07.9(ICD-10) Hospital Repository PROCEDURES PROCEDURES No Procedure Records FoundRESULTS RESULTS CT/NG [facility] BY PCR Collected: 08/05/2018 Status: F Source: [place] 4:00 PM [facility] REPOSITORY TYPE CODE TESTS RESULT OUT OF RANGE REFERENCE UNITS LAB L8200.2100 Negative Normal Chlam Negative Trac PCR LAB L8200.2200 Negative Normal NG by Negative PCR Performed By: #### L8200.2000 #### [facility] [address] [place], [address] Observed: 08/05/2018 Status: F Source: [place] CULTURE, URINE 4:00 PM [facility] REPOSITORY Urine Culture ORGANISM 1: Mixed Gram Pos AND Gram Neg Org [place] Count 11,000-25,000 MIX CULTURE Mixed contaminants. Submit a new specimen if indicated. Performed By: #### M100.0650 #### [facility] [address] [place], [address] 12 LEAD ELECTROCARDIOGRAM Observed: 07/01/2018 Status: F Source: [place] 4:09 PM [facility] REPOSITORY [facility] Cardiovascular Services [address] [place] [address] 12 Lead EKG 06/26/18 0509 MR#: [id number] Acct: [id number] Name: ROBBIE PIMENTEL Rep #: [id number] : 1985 33 From: Bruce Victor MD Attending Dr: Dee Dee Hercules MD Status: DIS JESSICA Ordering Dr: Javy Carr MD Date: 06/26/18 Location: U Sex: M C Admitted: 06/25/18 Test Reason : AM EKG Blood Pressure : / mmHG Vent. Rate : 078 BPM Atrial Rate : 078 BPM P-R Int : 164 ms QRS Dur : 108 ms QT Int : 410 ms P-R-T Axes : 042 072 032 degrees QTc Int : 467 ms Normal sinus rhythm Normal ECG When compared with ECG of 26-JUN-2018 00:29, MANUAL COMPARISON REQUIRED, DATA IS UNCONFIRMED Confirmed by BRUCE VICTOR MD ([id number]), managing editor HUMBERTO VELEZ ([id number]) on 07/01/2018 4:08:35 PM Referred By: GWENDOLYN Confirmed By:BRUCE VICTOR MD 07/01/18 1609 Date Bruce Victor MD CC: Dee Dee Hercules MD; Manpreet Milan MD; Javy Carr MD Signed 12 LEAD ELECTROCARDIOGRAM Observed: 07/01/2018 Status: F Source: [place] 4:09 PM [facility] REPOSITORY [facility] Cardiovascular Services [address] [place] [address] 12 Lead EKG 06/26/18 0029 MR#: [id number] Acct: [id number] Name: ROBBIE PIMENTEL Rep #: [id number] : 1985 33 From: Bruce Victor MD Attending Dr: Dee Dee Hercules MD Status: DIS JESSICA Ordering Dr: Javy Carr MD Date: 06/26/18 Location: [facility] Sex: M C Admitted: 06/25/18 Test Reason : ADM EKG Blood Pressure : / mmHG Vent. Rate : 085 BPM Atrial Rate : 085 BPM P-R Int : 168 ms QRS Dur : 102 ms QT Int : 386 ms P-R-T Axes : 033 069 028 degrees QTc Int : 459 ms Normal sinus rhythm Low voltage QRS Borderline ECG When compared with ECG of 22-JAN-2017 20:15, No significant change was found Confirmed by BRUCE VICTOR MD ([id number]), managing editor HUMBERTO VELEZ ([id number]) on 07/01/2018 4:08:45 PM Referred By: GWENDOLYN Confirmed By:BRUCE VICTOR MD 07/01/18 1608 Date Bruce Victor MD CC: Dee Dee Hercules MD; Manpreet Milan MD; Javy Carr MD Signed 12 LEAD ELECTROCARDIOGRAM Observed: 06/28/2018 Status: F Source: [place] 3:19 PM [facility] REPOSITORY [facility] Cardiovascular Services [address] [place] [address] 12 Lead EKG 06/25/182028 MR#: [id number] Acct: [id number] Name: ROBBIE PIMENTEL Rep #: [id number] : 1985 33 From: Bruce Victor MD Attending Dr: Dee Dee Hercules MD Status: DIS JESSICA Ordering Dr: Renu Watts MD Date: 06/25/18 Location: [facility] Sex: M C Admitted: 06/25/18 Test Reason : SOB Blood Pressure : / mmHG Vent. Rate : 101 BPM Atrial Rate : 101 BPM P-R Int : 152 ms QRS Dur : 108 ms QT Int : 378 ms P-R-T Axes : 046 071 023 degrees QTc Int : 490 ms Sinus tachycardia Otherwise normal ECG Confirmed by VALENTE GONZALEZ, BRUCE ([id number]), managing editor HUMBERTO VELEZ ([id number]) on 06/28/2018 3:19:17 PM Referred By: POPPY Confirmed By:BRUCE VICTOR MD 06/28/18 1519 Date Bruce Victor MD CC: Renu Watts MD; Dee Dee Hercules MD; Manpreet Milan MD Signed DISCHARGE SUMMARY Observed: 06/26/2018 Status: F Source: [place] 1:28 PM [facility] REPOSITORY [facility] Medical Records Department [address] [place] [address] Discharge Summary 06/26/18 1133 MR#: [id number] Acct: [id number] Name: ROBBIE PIMENTEL Rep #: [id number] : 1985 33 From: Dee Dee Hercules MD PCP: Bjorn GONZALEZ,Manpreet Status: DIS JESSICA Y Location: [place] [address]-1 Discharge Date and Diagnosis Date of Admission: 06/26/18 Date of Discharge: 06/26/18 - Primary Discharge Diagnosis Active and Suspected Problems Chest pain (Acute) Acute hypoxic respiratory insufficiency Super super morbid obesity - Secondary Discharge Diagnosis Chronic Problems Benign hypertension (Chronic) Obstructive sleep apnea (Chronic) History of cerebral palsy (Chronic) Type II diabetes mellitus (Chronic) Gout (Chronic) Bronchial asthma (Chronic) Super obesity (Chronic) Vertigo (Chronic) S/P RN ONCOLOGY shunt (Chronic) Hospital Course and Treatment Imaging Results: 06/26/18 05:55 Nuclear Stress Test - Chemical [NM] AM (NON MEDS) None Operations: None Procedures: None Summary of Care Provided: The patient is a 33 year old M with a history of super super morbid obesity, asthma who comes in with complaints of shortness of breath and chest pain. Admitting EKG shows sinus tachycardia. He was found to be hypoxic with SPO2 of 87% on 2 L. He was managed on a telemetry bed with no acute events. He had a stress test in the morning that was negative. Patient's orthostatic vitals were negative on the day of discharge. He was ambulated with no drops in his oxygenation. He was oxygenating not less than 92% on room air Subjective: Patient was seen and examined. Denies any new complains. Denies worsening SOB. He had stress test that was negative. - Physical Exam General: Alert, Oriented x3, Cooperative, No apparent distress - super super morbidly obese, - HEENT: Atraumatic, PERRLA, EOMI, Normocephalic Oral: Moist Mucosa Neck: Supple, No JVD, Negative Carotid Bruits Lungs: Clear to auscultation, Normal air movement Cardiovascular: Regular rate, Regular Rhythm, Normal S1, Normal S2, No murmurs Abdomen: Bowel Sounds Present, Soft, Non Tender, Non-Distended, No Hepato-splenomegaly Extremities: No edema Skin: No rashes, No breakdown Musculoskeletal: No Tenderness to Palpation of Joints or Extremities Lymphatic: No Cervical, Supraclavicular, or Inguinal Adenopathy Neurological: Cranial nerves II-XII grossly intact, Motor Exam 5/5 strength throughout Psych/Mental Status: Normal Affect, Appropriate Vital Signs Temp Pulse Resp BP Pulse Ox 98.0 F 85 18 152/87 H 91 06/26/18 10:20 06/26/18 11:32 06/26/18 10:20 06/26/18 11:32 06/26/18 11:32 Oxygen Flow Rate (L/min) 5 Oxygen Delivery Method Room Air Weight: 172.5 kg Body Mass Index (BMI) 65.2 Orthostatic Vital Signs Start: 06/26/18 11:32 Freq: q24h Status: Active Protocol: Activity Type Activity Date Activity User E-Sign Co-Sign Detail Recorded Client Recorded Date Recorded By Document 06/26/18 11:32 [employer] [id number] 06/26/18 11:33 [employer] Orthostatic Vitals Standing -Blood Pressure (90/60-120/80) 158/94 H -Extremity Use Left Arm -Pulse Rate (60-100) 87 Sitting -Blood Pressure (90/60-120/80) 147/104 H Intake and Output for Last 24 Hours Intake Total 120 / 120 Balance 120 / 120 Laboratory Tests Past 24 Hrs WBC 10.0 RBC 5.25 Hgb 14.6 Hct 46.0 MCV 87.6 MCH 27.8 MCHC 31.7 L RDW 15.1 H WBC 8.6 RBC 4.98 Hgb 14.3 WBC RBC Hgb Hct MCV MCH MCHC RDW RDW Differential Plt Count MPV Immature Gran % (Auto) POC Glucose POC Glucose 193 H 153 H Discharge Diet: Low fat/ Low Cholesterol, 2000 mg Sodium Diet Discharge Activity: Return to Normal Activity Home Medications: Medications to take at Discharge Allopurinol [Zyloprim] 300 mg PO DAILY 06/09/15 Fluoxetine [Prozac] 10 mg PO DAILY 06/09/15 Furosemide [Lasix] 40 mg PO BID 06/09/15 Metformin(XR) [Glucophage Xr] 500 mg PO DAILY 06/09/15 Nebivolol HCl [Bystolic (Beta Leonora)] 10 mg PO DAILY 06/09/15 levETIRAcetam tablet [Keppra tablet] 500 mg PO BID #60 tablet 10/18/15 Montelukast [Singulair] 10 mg PO DAILY 01/26/16 Albuterol Sulfate [Ventolin Hfa] 18 gm IH BID 05/07/16 Budesonide/Formoterol 80-4.5 [Symbicort 80-4.5 Mcg Inhaler] 2 puff INHALATION BID 05/07/16 Theophylline Anhydrous [Jules-24] 400 mg PO BID 01/22/17 Guaifenesin [Mucinex] 1,000 mg PO BID PRN 01/24/17 Baclofen 20 mg PO DAILY 06/25/18 Levocetirizine Dihydrochloride [Allergy Relief] 5 mg PO DAILY 06/25/18 Pantoprazole Sodium [Protonix] 40 mg PO DAILY 06/25/18 Potassium 1,080 mg PO DAILY 06/25/18 Primary Care Physician: Manpreet Milan MD [Primary Care Provider] - Please follow up with your Primary Care Physician in: within 2 weeks Disposition: Home Minutes spent on discharge:: 40 Patient Condition:: Stable Medical Necessity - Tobacco Use Smoking Status: Never smoker Meaningful Use Info Meaningful Use Diagnoses (Choose all that apply): None applicable Code Visit OBSV E AND M: 66951 Observation care discharge 06/26/18 1328 <Electronically signed by Dee Dee Hercules MD> Date Dee Dee Hercules MD Cosigner Signature (if applicable): Date CC: Dee Dee Hercules MD; Manpreet Milan MD Signed ECHO, COMPLETE W/ Observed: 06/26/2018 Status: F Source: [place] CONTRAST 11:41 [facility] REPOSITORY [facility] Cardiovascular Services [address] [place] [address] Echo Complete W/ Contrast 06/26/18 0638 MR#: [id number] Acct: [id number] Name: ROBBIE PIMENTEL Rep #: [id number] : 1985 33 From: Bruce Victor MD Attending Dr: Dee Dee Hercules MD Status: ADM JESSICA Ordering Dr: Javy Carr MD Date: 06/26/18 Location: [facility] Sex: M C Admitted: 06/25/18 Reason For Study: Chest Pain Procedure This was a 2D Doppler, Color Flow transthoracic echocardiogram. Technically difficult study due to patients body habitus. Echo images obtained with patient supine. Exam performed portable in patient room. Left Ventricle Normal LV size. Left ventricular systolic function is normal. The estimated ejection fraction is 60 %. Normal diastology for age. No regional wall motion abnormalities noted. Right Ventricle Normal RV size. Normal systolic function. Atria The left atrium is not well visualized. The right atrium is not well visualized. Mitral Valve Mitral valve not well visualized. Tricuspid Valve The tricuspid valve is not well visualized. Unable to estimate RV systolic pressure due to inadequate jet, pulmonary artery pressure probably normal. Unable to estimate RV systolic pressure/pulmonary artery pressure due to technically difficult study. Aortic Valve The aortic valve is not well visualized. Great Vessels Normal aortic root. Pericardium/Pleural No pericardial effusion. Medication Diluted definity 4ml given slow IV push to enhance endocardial definition. MMode/2D Measurements AND Calculations LVIDd: 5.0 cm IVSd: 1.5 cm LVIDs: 2.8 cm LVPWd: 1.7 cm FS: 44.9 % Time Measurements MV dec time: 0.17 sec Doppler Measurements AND Calculations MV E max william: 97.3 cm/sec Lat Peak E' William: 9.2 cm/sec Med Peak E' William: 11.7 cm/sec MV A max william: 73.4 cm/sec E/E' lat: 10.5 E/E' med: 8.3 MV E/A: 1.3 MV V2 max: 122.3 cm/sec MV P1/2t max william: 123.3 cm/sec Ao V2 max: 157.0 cm/sec MV max P.0 mmHg MV P1/2t: 58.0 msec Ao max P.9 mmHg MV V2 mean: 71.4 cm/sec MV dec slope: 622.8 cm/sec2 MV mean P.4 mmHg MVA(P1/2t): 3.8 cm2 MV V2 VTI: 28.8 cm LV V1 max: 132.1 cm/sec PA V2 max: 113.6 cm/sec LV V1 max P.0 mmHg Interpretation Summary Normal LV size. Left ventricular systolic function is normal. The estimated ejection fraction is 60 %. Normal diastology for age. Contrast injection was performed. The study was technically difficult. Ordering Physician: Javy Carr Referring Physician: Manpreet Milan Performed By: Zach Mcdermott RCS 06/26/18 1141 Date Bruce Victor MD CC: Dee Dee Hercules MD; Manpreet Milan MD; Javy Carr MD Date Dictated: 06/26/18 0638 Date Transcribed: 06/26/18 1141 Velvet Cutter: Signed DISCHARGE INSTRUCTION Observed: 06/26/2018 Status: F Source: [place] 11:39 AM [facility] REPOSITORY [facility] Medical Records Department [address] [place] [address] Instructions for Home/Discharge Instructions 06/26/18 1127 MR#: [id number] Acct: [id number] Name: ROBBIE PIMENTEL Rep #: [id number] : 1985 33 From: Dee Dee Hercules MD PCP: Manpreet Milan MD Status: ADM JESSICA - Discharge Diagnoses Current Active Problems: Current Active and Chronic Problems Chest pain (Acute) Reason(s) for Visit for Discharge Instructions: Chest pain, Shortness of breath You will use the following diet at home:: Calorie/Carbohydrate Controlled (specify 1200, 1400, etc), Cardiac Your food should be the consistency of: Regular Your liquids should be the consistency of: Regular/Thin Discharge Activity: Return to Normal Activity Additional Instructions: Continue to take all your medications and use your CPAP at night and when sleeping. Allergies/Adverse Reactions: Allergies DUST Allergy (Uncoded 06/26/18 00:22) Other Medications to take at Discharge Allopurinol [Zyloprim] 300 mg PO DAILY 06/09/15 Fluoxetine [Prozac] 10 mg PO DAILY 06/09/15 Furosemide [Lasix] 40 mg PO BID 06/09/15 Metformin(XR) [Glucophage Xr] 500 mg PO DAILY 06/09/15 Nebivolol HCl [Bystolic (Beta Leonora)] 10 mg PO DAILY 06/09/15 levETIRAcetam tablet [Keppra tablet] 500 mg PO BID #60 tablet 10/18/15 Montelukast [Singulair] 10 mg PO DAILY 01/26/16 Albuterol Sulfate [Ventolin Hfa] 18 gm IH BID 05/07/16 Budesonide/Formoterol 80-4.5 [Symbicort 80-4.5 Mcg Inhaler] 2 puff INHALATION BID 05/07/16 Theophylline Anhydrous [Jules-24] 400 mg PO BID 01/22/17 Guaifenesin [Mucinex] 1,000 mg PO BID PRN 01/24/17 Baclofen 20 mg PO DAILY 06/25/18 Levocetirizine Dihydrochloride [Allergy Relief] 5 mg PO DAILY 06/25/18 Pantoprazole Sodium [Protonix] 40 mg PO DAILY 06/25/18 Potassium 1,080 mg PO DAILY 06/25/18 Primary Care Physician: Manpreet Milan MD [Primary Care Provider] - Please follow up with your Primary Care Physician in: within 2 weeks Test Results: Test results from this visit will be discussed in further detail at your follow-up appointment, if applicable. Proposed Discharge Date: 06/26/18 06/26/18 1139 <Electronically signed by Dee Dee Hercules MD> Date Dee Dee Hercules MD CC: Manpreet Milan MD STRESS REPORT Observed: 06/26/2018 Status: F Source: [place] 10:05 [facility] REPOSITORY [facility] Cardiovascular Services [address] [place] [address] MR#: [id number] Acct: [id number] Name: ROBBIE PIMENTEL Rep #: [id number] : 1985 33 From: Bruce Victor MD Primary Care: Manpreet Milan MD Status: ADM JESSICA Ordering Dr: Sex: M C Stress Test Report Pharmacologic myocardial perfusion stress test. 33-year-old male with a history of chest pain. Stress protocol: Resting EKG demonstrates normal sinus rhythm with a rate of 88 bpm normal intervals and noted resting blood pressure 142/70 mmHg. 0.4 mg of regadenoson was infused per usual protocol followed by rapid intravenous saline flush injection continuous EKG monitoring was performed. The maximum heart rate attained was 111 bpm which was 59% of maximum predicted heart rate the maximum workload attained was 1 metabolic equivalent. At rest no ST or T wave changes were noted suggest abnormal flow reserve and at peak infusion no ST or T wave changes were noted suggest abnormal flow reserve. Resting blood pressure 142/70 mmHg with a maximum blood pressure 146/70 6 cm of mercury. Myocardial perfusion protocol. 15.0 mCi of technetium 99m sestamibi was injected at rest. 0.4 mg of regadenoson was infused per usual protocol. Peak infusion 45.0 mCi of technetium 99m sestamibi was injected stress images were obtained stress and rest images were reconstructed and compared in the short axis vertical long horizontal long axis. Gated images were also obtained per Perfusion SPECT analysis: Review of the stress images demonstrate normal uptake of tracer noted in all areas of the myocardium. The resting images similarly demonstrate normal uptake of tracer noted in all areas of the myocardium. No areas of reversibility are noted suggest ischemia no previous infarct is noted. Gated SPECT analysis: The gated ejection fraction is 71%. Conclusion: Normal pharmacologic myocardial perfusion stress test. Preserved ejection fraction. 06/26/18 1005 <Electronically signed by Bruce Victor MD> Date Bruce Victor MD CC: Dee Dee Hercules MD; Manpreet Milan MD Date Dictated: 06/26/18 1002 Date Transcribed: 06/26/18 1002 Velvet Cutter: CO Signed BEDSIDE GLUCOSE Collected: 06/26/2018 Status: F Source: [place] 6:25 AM [facility] REPOSITORY TYPE CODE TESTS RESULT OUT OF REFERENCE UNITS RANGE LAB L501.080 70-110 mg/dL High BEDSIDE GLU 193 Result Comment: MANAGEMENT OF PATIENT CARE PER NURSING PROTOCOL Performed By: #### L501.080 #### [facility] Point of Care [address] [facility]. [place], [place] [address] PROTHROMBIN TIME W/INR Collected: 06/26/2018 Status: F Source: [place] 5:30 AM [facility] REPOSITORY TYPE CODE TESTS RESULT OUT OF RANGE REFERENCE UNITS LAB L300.4150 11.7-14.9 SECONDS Normal PROTIME 13.7 LAB L300.4200 Normal INR 1.1 Performed By: #### L300.3900, L300.4310 #### [facility] [address] [place], [address] PARTIAL THROMBOPLAST Collected: 06/26/2018 Status: F Source: [place] TIME 5:30 AM [facility] REPOSITORY TYPE CODE TESTS RESULT OUT OF RANGE REFERENCE UNITS LAB L300.4310 24.1-36.2 Seconds Normal PTT 27.8 Performed By: #### L300.3900, L300.4310 #### [facility] [address] [place], [address] LIPID PROFILE Collected: 06/26/2018 Status: F Source: [place] 5:30 AM [facility] REPOSITORY Order Comment: 'TROP' Serial specimen #1, #2 or #3: 3 TYPE CODE TESTS RESULT OUT OF RANGE REFERENCE UNITS LAB L501.4900 200 mg/dL Normal CHOL 176 Result Comment: <200 mg/dL Desirable 200-240 mg/dL Borderline >240 mg/dL High Risk LAB L501.5000 mg/dL Normal TRIG 107 Result Comment: The drugs N-Acetylcysteine and Metamizole may falsely depress this assay. Serum Triglycerides Reference Interval Normal <150 mg/dL Borderline high 150 - 199 mg/dL High 200 - 499 mg/dL Very High > or = 500 mg/dL LAB L501.6400 mg/dL Low HDL 36 Result Comment: The drugs N-Acetylcysteine and Metamizole may falsely depress this assay. Reference Range HDL <40 mg/dL Low HDL Cholesterol HDL >or= 60 mg/dL High HDL Cholesterol LAB L501.6500 0-130 mg/dL Normal LDL 119 LAB L501.6600 5-40 mg/dL Normal VLDL 21 Performed By: #### L500.4100, L501.4010 #### [facility] [address] [facility] [place], [place], [address] TROPONIN-I Collected: 06/26/2018 Status: F Source: [place] 5:30 AM [facility] REPOSITORY Order Comment: 'TROP' Serial specimen #1, #2 or #3: 3 TYPE CODE TESTS RESULT OUT OF RANGE REFERENCE UNITS LAB L501.4010 <0.045 ng/mL Normal < 0.015 TROPONIN-I Result Comment: TROPONIN-I EXPECTED VALUES <0.045 Negative 0.045 - 0.590 Consistent with Cardiac Damage > OR = 0.600 Critical Value Not every elevated troponin is indicative of CA. These values should be used with clinical judgement in examining the patient's clinical picture for diagnosis. To establish a diagnosis of CA versus myocardial injury, there must be a demonstrated rise and/or fall in the troponin values, in addition to ischemic symptoms, EKG changes, new regional wall motion abnormality, and/or angiographical evidence. PLEASE NOTE: REFERENCE RANGES EDITED 18 Performed By: #### L500.4100, L501.4010 #### [facility] [address] [place], [address] TROPONIN-I Collected: 06/26/2018 Status: F Source: [place] 3:18 AM [facility] REPOSITORY Order Comment: 'TROP' Serial specimen #1, #2 or #3: 2 'TROP' Serial specimen #1, #2, #3, or #4: 2 TYPE CODE TESTS RESULT OUT OF RANGE REFERENCE UNITS LAB L501.4010 <0.045 ng/mL Normal < 0.015 TROPONIN-I Result Comment: TROPONIN-I EXPECTED VALUES <0.045 Negative 0.045 - 0.590 Consistent with Cardiac Damage > OR = 0.600 Critical Value Not every elevated troponin is indicative of CA. These values should be used with clinical judgement in examining the patient's clinical picture for diagnosis. To establish a diagnosis of CA versus myocardial injury, there must be a demonstrated rise and/or fall in the troponin values, in addition to ischemic symptoms, EKG changes, new regional wall motion abnormality, and/or angiographical evidence. PLEASE NOTE: REFERENCE RANGES EDITED 18 Performed By: #### L501.4010, L500.2500 #### [facility] [place], [address] BASIC METABOLIC Collected: 06/26/2018 Status: F Source: [place] PROFILE (BMP) 3:18 AM [facility] REPOSITORY Order Comment: 'TROP' Serial specimen #1, #2 or #3: 2 'TROP' Serial specimen #1, #2, #3, or #4: 2 TYPE CODE TESTS RESULT OUT OF RANGE REFERENCE UNITS LAB L501.0100 74-106 mg/dL High GLU 160 Result Comment: Fasting Glucose result greater than or equal to 126 mg/dL suggests DIABETES MELLITUS per A.D.A. criteria. Please note revised GLUCOSE reference range effective 2017. LAB L501.1000 7-18 mg/dL Normal BUN 9 LAB L501.1100 0.70-1.30 mg/dL Low CREAT,SERUM 0.68 Result Comment: The validity of the calculated GFR AND GFRAA in patients over 70 years has not been determined. Clinical correlation is essential. LAB L501.1110 >60 mL/min Normal EST GFR 142 Result Comment: Non- GFR Calc LAB L501.1115 >60 mL/min Normal EST GFR - AA 171 Result Comment: GFR Calc LAB L501.1255 ml/min Normal Estimated CRCL 128.17 LAB L501.1300 10-20 RATIO BUN/CRE Normal 13.2 LAB L501.2200 8.5-10 mg/dL Low .1 CA 7.8 LAB L501.5300 136-14 mmol/L 5 NA Normal 142 LAB L501.5600 3.5-5. mmol/L 1 K Normal 3.7 LAB L501.5900 98-107 mmol/L CL Normal 106 LAB L501.6100 21.0-3 mmol/L 2.0 CO2 Normal 25.0 LAB L501.6200 5-15 GAP Normal 11 Performed By: #### L501.4010, L500.2500 #### [facility] [address] [place], [place], [address] CBC W/DIFF, AUTOMATED Collected: 06/26/2018 Status: F Source: [place] 3:18 AM [facility] REPOSITORY TYPE CODE TESTS RESULT OUT OF RANGE REFERENCE UNITS LAB L100.1000 4.4-11.0 K/mm3 Normal WBC 8.6 LAB L100.1200 4.6-6.2 M/mm3 Normal RBC 4.98 LAB L100.1300 13.0-16.5 g/dl Normal HGB 14.3 LAB L100.1400 40-54 % Normal HCT 44.4 LAB L100.1500 80-94 fL Normal MCV 89.2 LAB L100.1600 27.0-32.0 pg Normal MCH 28.7 LAB L100.1700 32-36 g/gl Normal MCHC 32.2 LAB L100.1810 11.6-14.6 % High RDW CV 15.4 LAB L100.1820 35.1-43.9 fl High RDW SD 49.2 LAB L100.1900 150-450 K/mm3 Normal PLT 158 LAB L100.2000 6.2-12.0 fl Normal MPV 11.2 LAB L100.2100 47-70 % Normal NEUT% 64.0 LAB L100.2200 19-41 % Normal LY% 21.5 LAB L100.2300 0-10 % Normal MONO% 9.2 LAB L100.2400 0-5 % Normal EO% 4.5 LAB L100.2500 0-1 % Normal BASO% 0.5 LAB L100.2550 0.0-0.9 % Normal IM GRAN % 0.300 Result Comment: IG% - Immature Granulocytes (promyelocytes, myelocytes and metamyelocytes) > 1% indicates that a LEFT SHIFT is Present. LAB L100.2620 2.0-7.7 X10 3/uL Normal Absolute Neut 5.5 LAB L100.2720 0.83-4.51 X10 3/ul Normal Absolute Lymph 1.85 LAB L100.4500 Normal SMEAR COMMENT SCANNED Performed By: #### L100.0100 #### [facility] [address] [place], [address] HISTORY AND PHYSICAL Observed: 06/26/2018 Status: F Source: [place] EXAM 1:28 AM [facility] REPOSITORY [facility] Medical Records Department [address] [place] [address] History and Physical 06/25/18 2309 MR#: [id number] Acct: [id number] Name: ROBBIE PIMENTEL Rep #: [id number] : 1985 33 From: Javy Carr MD PCP: Manpreet Milan MD Status: ADM JESSICA Y Location: [place] [address] Problem List (1) Chest pain Status: Acute History of Present Illness Date of Admission: 06/26/18 Chief Complaint: chest pain The patient is a 33 year old M with a significant history of asthma; obesity; epilepsy; hypertension; diabetes; obstructive sleep apnea who presented with chest pain that started on the day of his admission. Patient reported that while in the shower he had chest pain; shortness of breath and wobbliness of his feet requiring him to hold onto a rail in the bathroom. He reports his chest pain as a baby sitting on his chest. His chest pain severity was 5 out of 10. His chest pain stayed constant. In the emergency department he was given oxygen which helped improved his chest pain. He reports no aggravating factor to his chest pain. His chest pain was nonradiating. However he had some frontal headache at the time of the chest pain. Associated with his symptoms is lightheadedness; diaphoresis and nausea. Patient reports that typically his oxygen saturation is in the low 90s. However on admission patient's patient oxygen saturation was 87 on 2 L. In the emergency department his troponin was negative. His EKG showed sinus tachycardia. Past Medical History Past Medical History (Chronic Problems): Chronic Problems Benign hypertension (Chronic) Obstructive sleep apnea (Chronic) History of cerebral palsy (Chronic) Type II diabetes mellitus (Chronic) Gout (Chronic) Bronchial asthma (Chronic) Super obesity (Chronic) Vertigo (Chronic) S/P RN ONCOLOGY shunt (Chronic) Allergies DUST Allergy (Uncoded 06/25/18 19:29) Other Home Medications: Ambulatory Orders Medication Instructions Recorded Allopurinol [Zyloprim] 300 mg PO DAILY 06/09/15 Fluoxetine [Prozac] 10 mg PO DAILY 06/09/15 Surgical History: - - Cerebral shunt secondary to hydrocephalus, tendon release Psychiatric History: No pertinent psych hx Lives: Alone Smoking Status: Never smoker - *Family History Maternal History Items: Diabetes Paternal History Items: - - History of atrial fibrillation Sibling History Items: Diabetes Review of Systems Constitutional: Denies: Chills, Fever, Weight Change HEENT: Reports: Head Aches. Denies: Sinus Congestion, Sinus Drainage Cardiovascular: Reports: Chest Pain, Light Headedness. Denies: Palpitations Respiratory: Reports: Shortness of Breath. Denies: Cough, Sputum production Gastrointestinal: Reports: Nausea. Denies: Abdominal Pain, Vomiting Genitourinary: Denies: Dysuria Musculoskeletal: Denies: Joint Pain, Joint Tenderness Skin: Denies: Rash, Wounds Neurological: Denies: Numbness, Tingling, Focal weakness Psychiatric: Denies: Anxiety, Depression, Homicidal Ideations, Suicidal Ideations Hematologic/ Lymphatic: Denies: Easy Bruising, Easy Bleeding VTE Information - Inpt Only VTE Present on Admission: No VTE Mechan Device Prophylaxis: None VTE Pharm Prophylaxis ordered?: Yes Patient Problems: Active and Suspected Problems Chest pain (Acute) - Physical Exam General: Alert, Oriented x3, Cooperative HEENT: Atraumatic, PERRLA, EOMI, Normocephalic Neck: Supple, No JVD, Negative Carotid Bruits Lungs: Diminished - Neck thickening to body habitus. Cardiovascular: No murmurs, Tachycardic Abdomen: Bowel Sounds Present, Soft, Non Tender Extremities: No edema, Capillary Refill Less than 3 Seconds Skin: No rashes, No breakdown Musculoskeletal: No Tenderness to Palpation of Joints or Extremities Neurological: Cranial nerves II-XII grossly intact Psych/Mental Status: Normal Affect, Appropriate Vital Signs Temp Pulse Resp BP Pulse Ox 98.8 F 103 H 18 138/56 H 94 06/25/18 19:24 06/25/18 22:00 06/25/18 22:00 06/25/18 22:00 06/25/18 22:00 Oxygen Flow Rate (L/min) 4 Oxygen Delivery Method Nasal Cannula Weight: 175.4 kg Body Mass Index (BMI) 66.4 Laboratory Tests Past 24 Hrs WBC 10.0 RBC 5.25 Hgb 14.6 Hct 46.0 MCV 87.6 MCH 27.8 MCHC 31.7 L RDW 15.1 H RDW Differential 48.2 H Plt Count 199 Assessment/Plan All Active Problems Chest pain (Acute) The patient is a 33 year old M with a significant history of asthma; morbid obesity; epilepsy; hypertension; diabetes; obstructive sleep apnea who presented with chest pain; shortness of breath and lightheadedness. Chest pain Admit to a monitored bed on PCU CXR independently reviewed confirms mild bibasilar infiltrates. EKG independently reviewed confirms sinus tachycardia Received aspirin 324 mg at emergency department ASA 81 mg p.o. daily SL NTG 0.4 mg prn as needed for chest pain Serial cardiac enzymes Stat EKG as needed for chest pain Stress test in the AM if the cardiac enzymes are negative . Because patient is unsure whether he can run a chemical stress test was ordered. Echocardiogram ordered. Acute hypoxemic respiratory failure. Oxygen saturation 87% on 2 L at admission. Etiology unclear at this time. Patient has a history of asthma but it did not appears that he was in asthma exacerbation. He had no wheezing or coughing spell. With his body habitus he is at risk for obesity hypoventilation syndrome but again is unclear why his oxygen saturation is acutely decreased if indeed he runs low 90s at baseline. As needed oxygen. At home he takes albuterol scheduled. DuoNeb scheduled. Albuterol as needed Echocardiogram ordered. Hypertension On admission blood pressure was not within goal Nebivolol continued Trend blood pressures and titrate blood pressure medication. Diabetes mellitus On admission blood glucose was not within goal. Home metformin held Correction scale insulin ordered. Obstructive sleep apnea At home patient uses a CPAP with oxygen bled in. CPAP per home setting; bleed oxygen in. Epilepsy Keppra continued Gout Allopurinol continued Depression Prozac continued History of bilateral leg swelling. Patient denies any history of heart failure Home Lasix with potassium continued DVT prophylaxis Subcutaneous Lovenox. Code Visit OBSV E AND M: [id number] Initial observation care L3 06/26/18 0128 <Electronically signed by Javy Carr MD> Date Javy Carr MD Cosigner Signature: Date (if applicable) CC: Manpreet Milan MD; Javy Carr MD Signed BEDSIDE GLUCOSE Collected: 06/26/2018 Status: F Source: [place] 1:00 AM [facility] REPOSITORY TYPE CODE TESTS RESULT OUT OF REFERENCE UNITS RANGE LAB L501.080 70-110 mg/dL High BEDSIDE GLU 153 Result Comment: MANAGEMENT OF PATIENT CARE PER NURSING PROTOCOL Performed By: #### L501.080 #### [facility] Point of Care [address] [facility] [place] [address] EMERGENCY DEPARTMENT Observed: 06/25/2018 Status: F Source: [place] SUMMARY 11:16 PM [facility] REPOSITORY [facility] Medical Records Department [address] [place] [address] Emergency Department Summary 06/25/181999 MR#: [id number] Acct: [id number] Name: ROBBIE PIMENTEL Rep #: [id number] : 1985 33 From: Renu Watts MD PCP: Manpreet Milan MD Status: REG ER - ER Visit Summary Date of Service: 06/25/18 Chief Complaint: Shortness of breath History of Present Illness: The patient is a 33 M presenting with lightheadedness and shortness of breath. Patient states he was taking a shower and he started to feel lightheaded. He needed to use the handle bar in the shower to avoid falling. He did not pass out. He states he felt dizzy following this as well. EMS was called. He now feels improved on oxygen. He states he had mid chest pain associated with this as well. He has had a cough and sinus congestion. He denies fever or other complaints. Physical Examination: Vitals are stable. Patient is afebrile. Alert no acute distress. HEENT exam is unremarkable. Neck is supple. Lungs are clear and equal bilaterally. Heart is regular rate and rhythm. Abdomen is soft nontender nondistended. Extremities are unremarkable. Skin is warm and dry. No focal neurologic deficit. Remainder of exam is unremarkable. Emergency Department Course and Treatment: EKG is sinus tachycardia rate of 101. Chest x-ray shows right basilar interstitial prominence. CBC, chemistries unremarkable other than glucose 236. Troponin is less than 0.015. Patient was given albuterol Atrovent aerosol. Attempted to remove his nasal cannula and he desaturates into the 80s. He is satting 90% on 4 L. CTA chest was obtained and shows no evidence of PE. On re-evaluation he is now chest pain free. Due to his chest pain and hypoxia will discuss with the hospitalist for observation. Disposition: Observation Impression: Chest pain, hypoxia This note was generated with [employer] dictation software. It may contain incorrect words, spelling, and punctuation that were not noted in review of the chart prior to signing ED Disposition - Plan for ED Patient: Chief Complaint: Shortness of Breath Referrals: Manpreet Milan MD [Primary Care Provider] - What to do if you have Problems For any increased pain, shortness of breath, bleeding, nausea or vomiting, chest pain, or any unexpected problems, contact your Primary Care Provider. Call [facility] ([phone]) or report to the closest Emergency Room. Call 911 if necessary. 06/25/18 3351 <Electronically signed by Renu Watts MD> Date Renu Watts MD Cosigner Signature (If Indicated): Date CC: Manpreet Milan MD CTA CHEST W/WO Observed: 06/25/2018 Status: F Source: [place] 8:44 PM [facility] Imaging Services [address] [place] [address] CTA Chest W/WO Contrast MR#: [id number] Acct: [id number] Name: ROBBIE PIMENTEL Rep #: [id number] : 1985 M 33 From: Monico Ackerman DO PCP: Manpreet Milan MD Status: REG ER Study: CTA Chest W/WO Contrast Date of Exam: 06/25/18 Exam# [id number] Ordering Dr: Renu Watts MD STUDY: CTA CHEST REASON FOR EXAM: Male, 33 years old. Shortness of breath, syncope RADIATION DOSAGE (If Supplied By Facility): CTDIvol = ( 22.07 ) mGy, DLP = ( 885.60 ) mGycm TECHNIQUE: The examination was performed with the intravenous administration of 100ML ml of Isovue 370 contrast material. Post-processing of the angiographic images was performed, with multiplanar reformation and 3D reconstruction. Individualized dose optimization techniques were used for this CT. COMPARISON: None. FINDINGS: Normal enhancement of the main pulmonary artery and right and left pulmonary arteries. Normal enhancement of the bilateral peripheral pulmonary arteries. There is no demonstrated pulmonary embolism. Normal thoracic aorta and visualized great vessels. There is no demonstrated aortic dissection. Normal heart and pericardium. Normal mediastinum. Normal hilar regions. Normal visualized trachea and bronchi. The lungs are well expanded. Normal pulmonary parenchyma. Normal pleura. Normal chest wall structures. Mild degenerative vertebral changes. Prominent spleen. CT/CTA Chest W/WO Contrast IMPRESSION: No demonstrated pulmonary embolism or arterial dissection. Electronically Signed: Monico Ackerman DO at 22:51 EDT Tel [phone], Service support , CC: Renu Watts MD; Manpreet Milan MD Velvet Cutter: Signed CHEST 1 VIEW Observed: 06/25/2018 Status: F Source: [place] (PORTABLE) 8:00 PM [facility] REPOSITORY [facility] Imaging Services [address] [place] [address] Chest 1 View (Portable) MR#: [id number] Acct: [id number] Name: ROBBIE PIMENTEL Rep #: [id number] : 1985 M 33 From: Monico Ackerman DO PCP: Manpreet Milan MD Status: REG ER Study: Chest 1 View (Portable) Date of Exam: 06/25/18 Exam# [id number] Ordering Dr: Renu Watts MD STUDY: X-RAY CHEST REASON FOR EXAM: Male, 33 years old. Shortness of breath TECHNIQUE: Single frontal view COMPARISON: Frontal and lateral views FINDINGS: The lungs are not fully expanded. There is mild right basilar interstitial prominence. Normal size heart. Normal mediastinum and hiar. Normal visualized pulmonary arteries. Normal visualized aortic arch and descending thoracic aorta. Normal visualized thoracic spine. Normal visualized ribs, clavicles, and shoulders. There is no demonstrated abnormality of the visualized soft tissue structures of the upper abdomen. RAD/Chest 1 View (Portable) IMPRESSION: Mild right basilar interstitial prominence. Electronically Signed: Monico Ackerman DO at 20:24 EDT Tel [phone], Service support , CC: Renu Watts MD; Manpreet Milan MD Velvet Cutter: Signed CBC W/DIFF, AUTOMATED Collected: 06/25/2018 Status: F Source: [place] 7:36 PM [facility] REPOSITORY TYPE CODE TESTS RESULT OUT OF RANGE REFERENCE UNITS LAB L100.1000 4.4-11.0 K/mm3 Normal WBC 10.0 LAB L100.1200 4.6-6.2 M/mm3 Normal RBC 5.25 LAB L100.1300 13.0-16.5 g/dl Normal HGB 14.6 LAB L100.1400 40-54 % Normal HCT 46.0 LAB L100.1500 80-94 fL Normal MCV 87.6 LAB L100.1600 27.0-32.0 pg Normal MCH 27.8 LAB L100.1700 32-36 g/gl Low MCHC 31.7 LAB L100.1810 11.6-14.6 % High RDW CV 15.1 LAB L100.1820 35.1-43.9 fl High RDW SD 48.2 LAB L100.1900 150-450 K/mm3 Normal PLT 199 LAB L100.2000 6.2-12.0 fl Normal MPV 11.7 LAB L100.2100 47-70 % Normal NEUT% 67.0 LAB L100.2200 19-41 % Normal LY% 21.4 LAB L100.2300 0-10 % Normal MONO% 6.8 LAB L100.2400 0-5 % Normal EO% 4.0 LAB L100.2500 0-1 % Normal BASO% 0.3 LAB L100.2550 0.0-0.9 % Normal IM GRAN % 0.500 Result Comment: IG% - Immature Granulocytes (promyelocytes, myelocytes and metamyelocytes) > 1% indicates that a LEFT SHIFT is Present. LAB L100.2620 2.0-7.7 X10 3/uL Normal Absolute Neut 6.7 LAB L100.2720 0.83-4.51 X10 3/ul Normal Absolute Lymph 2.13 LAB L100.4500 Normal SMEAR COMMENT SCANNED Result Comment: AUTO DIFF OK Performed By: #### L100.0100 #### [facility] [address] [place], [address] BASIC METABOLIC Collected: 06/25/2018 Status: F Source: [place] PROFILE (BMP) 7:36 PM [facility] REPOSITORY TYPE CODE TESTS RESULT OUT OF RANGE REFERENCE UNITS LAB L501.0100 74-106 mg/dL High GLU 236 Result Comment: Glucose result greater than or equal to 200 mg/dL suggests DIABETES MELLITUS per A.D.A. criteria. Please note revised GLUCOSE reference range effective 2017. LAB L501.1000 7-18 mg/dL Normal BUN 10 LAB L501.1100 0.70-1.30 mg/dL Normal CREAT,SERUM 0.94 Result Comment: The validity of the calculated GFR AND GFRAA in patients over 70 years has not been determined. Clinical correlation is essential. LAB L501.1110 >60 mL/min Normal EST GFR 97 Result Comment: Non- GFR Calc LAB L501.1115 >60 mL/min Normal EST GFR - AA 118 Result Comment: GFR Calc LAB L501.1255 ml/min Normal Estimated CRCL 92.72 LAB L501.1300 10-20 RATIO Normal BUN/CRE 10.6 LAB L501.2200 8.5-10 mg/dL Low .1 CA 8.2 LAB L501.5300 136-14 mmol/L Normal 5 NA 140 LAB L501.5600 3.5-5. mmol/L Normal 1 K 3.5 LAB L501.5900 98-107 mmol/L Normal CL 103 LAB L501.6100 21.0-3 mmol/L Normal 2.0 CO2 28.0 LAB L501.6200 5-15 Normal GAP 9 Performed By: #### L500.2500, L501.4010 #### [facility] [address] [facility] [place], [place], [address] TROPONIN-I Collected: 06/25/2018 Status: F Source: [place] 7:36 PM [facility] REPOSITORY TYPE CODE TESTS RESULT OUT OF RANGE REFERENCE UNITS LAB L501.4010 <0.045 ng/mL Normal < 0.015 TROPONIN-I Result Comment: TROPONIN-I EXPECTED VALUES <0.045 Negative 0.045 - 0.590 Consistent with Cardiac Damage > OR = 0.600 Critical Value Not every elevated troponin is indicative of CA. These values should be used with clinical judgement in examining the patient's clinical picture for diagnosis. To establish a diagnosis of CA versus myocardial injury, there must be a demonstrated rise and/or fall in the troponin values, in addition to ischemic symptoms, EKG changes, new regional wall motion abnormality, and/or angiographical evidence. PLEASE NOTE: REFERENCE RANGES EDITED 18 Performed By: #### L500.2500, L501.4010 #### [facility] [address] [place], [place], [address] ALLERGIES ALLERGIES DATE TYPE / CODE NAME / REACTION SEVERITY SOURCE CODE 06/26/2018 Miscellaneous DUST Other Unknown [place] Allergy/[id number](Critical access hospital [place]) Hospital Repository ENCOUNTERS ENCOUNTERS ADMIT/DISCHARGE ACCOUNT ADMITTING ENCOUNTER LOCATION SOURCE NUMBER CLASS 08/05/2018 [id number] Ambulatory [place] 7 [facility] ing:LABSPEC Repository 06/26/2018 [id number] Ambulatory BMSBuilding:W [place] 9 [facility] Repository 06/25/2018/ [id number] [place], Ambulatory [place] 8 9 [facility] ing:PCURoom: Repository [id number]: 1 06/25/2018 [id number] [place], Ambulatory BMSBuilding:B [place] 7 Javy JC.[facility] Repository 06/25/2018 [id number] [place], Ambulatory BMSBuilding:B [place] [address] [place] MS.[facility] Repository PAYERS PAYERS ENCOUNTER GUARANTOR PAYER SUBSCRIBER SOURCE 08/05/2018 ROBBIE Peña Primary ROBBIE J [place] [id number] Insurance:MYCARE CRSC CONAWAYDOB: Community [address] *IN [facility] [id number] Number: Repository [id number]: 330 [id number] [phone] () Date:[id number] CLAIMS [facility] [address] [address]TY: 08/05/2018 Secondary NOT GIVENUNK [place] Insurance:SELF PAY [facility] Number: Effective Repository Date:2018-08-05 06/26/2018 ROBBIE J Primary ROBBIE J [place] [id number] Insurance:MYCARE CRSC CONAWAYDOB: Community [address] *IN [facility] [id number] Number: Repository [id number]: 330 [id number] [phone] () Date:7776-88-61VPVD CLAIMS DEPTPO [address] [address]EK: 06/26/2018 Secondary NOT GIVENUNK [place] Insurance:SELF PAY [facility] Number: Effective Repository Date:2018-06-26 06/25/2018 ROBBIE J Primary ROBBIE J [place] [id number] Insurance:MYCARE CRSC CONAWAYDOB: Community [address] *IN [facility] [id number] Number: Repository [id number]: 330 [id number] [phone] (HP) Date:1926-70-03KLCG CLAIMS DEPTPO [address] [place] [address]OH: 06/25/2018 Secondary NOT GIVENUNK [place] Insurance:SELF PAY [facility] Number: Effective Repository Date:2018-06-25 06/25/2018 Robbie J Primary Robbie J [place] [id number] Insurance:MYCARE CRSC ConawayDOB: [address] *[place] [facility] [id number] Number: Repository [id number]: 330 [id number] [phone] () Date:[id number] CLAIMS DEPTPO [address] [place] [address]BL: 06/25/2018 Secondary NOT GIVENUNK [place] Insurance:SELF PAY [facility] Number: Effective Repository Date:2018-06-25 06/25/2018 Robbie J Primary Robbie J [place] [id number] Insurance:MYCARE CRSC ConawayDOB: [address] *IN [facility] [id number] Number: Repository [id number]: 330 [id number] [phone] (HP) Date:[id number] CLAIMS [address], [place] [address]HH: 06/25/2018 Secondary NOT GIVENUNK [place] Insurance:SELF PAY [facility] Number: Effective Repository Date:2018-06-25
== END ==
PROVIDERS: Family Provider Family Medicine; PCP Family Medicine; Referring Provider Family Medicine; Visit Provider Family Medicine
DX: R35.0 Frequency of micturition (principal)
CPT/HCPCS: 87086; 87088; 87491; 87591

== ENCOUNTER → 2019-04-11 11:17 | Outpatient (CLI) | payer MEDICARE, SELFPAY ==
[2019-03-23 06:29] VITALS: BMI 65.4
[2019-04-11 13:46] LABS: Absolute Lymphocyte Count 1.88 X10^3/uL (0.83-4.51); Absolute Neutrophil Count 5.8 X10^3/uL (2.0-7.7); Basophil# 0.06 X10^3/uL; Basophil% 0.7 % (0-1); Eosinophil# 0.35 X10^3/uL; Hematocrit 46.6 % (40-54); Hemoglobin 15.1 g/dL (13.0-16.5); Lymphocyte # 1.88 X10^3/ul (4.0); Lymphocyte % 21.6 % (19-41); Mean Corp Hgb Conc 32.4 g/dL (32-36); Mean Corpuscular Hgb 28.4 pg (27.0-32.0); Mean Corpuscular Volume 87.6 fL (80-94); Mean Platelet Vol. 10.8 fl (6.2-12.0); Monocyte# 0.56 X10^3/uL; Monocyte% 6.4 % (0-10); NRBC Flagged by Analyzer 0 % (0-5); Neutrophil # 5.79 X10^3/uL (2.7-7.7); Neutrophil % 66.4 % (47-70); Platelet Count 193 K/mm3 (150-450); RBC Distribution Width CV 15.7 % (11.6-14.6); RBC Distribution Width SD 49.5 fl (35.1-43.9); Red Blood Count 5.32 M/mm3 (4.6-6.2); White Blood Count 8.7 K/mm3 (4.4-11.0)
[2019-04-11 14:07] LABS: Microalbumin,Random Urine 10.4 mg/L (NO RANGE EST.); Microalbumin:Creatinine Ratio 18.2 mg/g CRE (<30 mg/g CRE)
[2019-04-11 14:08] LABS: ALB/GLOB Ratio 0.8 RATIO (0.9-2.4); AST(SGOT) 57 U/L (15-37); Alanine Aminotransfer ALT/SGPT 89 U/L (16-61); Albumin, Serum 3.7 g/dL (3.2-5.0); Alkaline Phosphatase 86 U/L (45-117); Anion Gap 10 (5-15); BUN 8 mg/dL (7-18); BUN/Creat Ratio 11.4 RATIO (10-20); Calcium,Total 8.7 mg/dL (8.5-10.1); Chloride 103 mmol/L (98-107); Cholesterol 190 mg/dL (200); EST Glomerular Filtration Rate 137 mL/min (>60); Est Glom Filt Rate - Afr Amer 165 mL/min (>60); Globulin 4.4 g/dL (2.2-4.2); Glucose 111 mg/dL (74-106); High Density Lipoprotein 41 mg/dL; Potassium 3.6 mmol/L (3.5-5.1); Protein, Total 8.1 g/dL (6.4-8.2); Sodium Level 142 mmol/L (136-145); Thyroid Stim Hormone (TSH) 4.12 uIU/mL (0.358-3.74); Triglycerides 182 mg/dL; Very Low Density Lipoprotein 36 mg/dL (5-40)
== END ==
PROVIDERS: Family Provider Family Medicine; PCP Family Medicine; Referring Provider Family Medicine; Visit Provider Family Medicine
DX: E11.9 Type 2 diabetes mellitus without complications (principal)
CPT/HCPCS: 36415; 80053; 80061; 82043; 82570; 84443; 85025

== ENCOUNTER 2019-06-02 06:13 | Emergency (ER) | payer MEDICARE, SELFPAY ==
[2019-03-23 06:29] VITALS: BMI 65.4
[2019-06-02 06:14] VITALS: BP 143/80; PULSE 84; RESP 22; TEMP 36.7; O2SAT 93; BMI 63.1
--- NOTE | 2019-06-02 06:35 | ED.VIS.GEN ---
History of Present Illness Chief Complaint: Back Informant: Patient Onset: Days - 2 Narrative: Worsening right lower back spasms after bending over to wipe the toilet 2 days ago. Intermittent spasms since with cramping in the legs. No direct falls or injuries. No loss of bowel or bladder control. Using Tylenol and Aleve last dose was last evening. No history of gastric ulcers. Has had spasms in the past however less severe. No nausea vomiting. Prior similar symptoms: Yes Past Medical History - Allergies and Home Meds Allergies/Adverse Reactions: Allergies DUST Allergy (Uncoded 06/26/18 00:22) Other Primary Care Physician: Manpreet Milan MD [Primary Care Provider] - Surgical History: - - Cerebral shunt secondary to hydrocephalus, tendon release Smoking Status: Never smoker - Family History Maternal Family History: Family History (Last Updated 03/23/19 @ 13:31 by Ying Reagan) Father Chronic a-fib CVA (cerebral vascular accident) Mother ROBERT (obstructive sleep apnea) Breast cancer Grandfather Cancer Other Diabetes Family History: Reports: Diabetes Paternal Family History: Family History (Last Updated 03/23/19 @ 13:31 by Ying Reagan) Father Chronic a-fib CVA (cerebral vascular accident) Mother ROBERT (obstructive sleep apnea) Breast cancer Grandfather Cancer Other Diabetes Family History: Reports: - - History of atrial fibrillation Sibling Family History: Family History (Last Updated 03/23/19 @ 13:31 by Ying Reagan) Father Chronic a-fib CVA (cerebral vascular accident) Mother ROBERT (obstructive sleep apnea) Breast cancer Grandfather Cancer Other Diabetes Family History: Reports: Diabetes Review of Systems General: Denies: Chills, Fever, Sweats Eyes: Denies: Visual changes - bilaterally, Diplopia ENT: Denies: Rhinorrhea, Sore throat Cardiovascular: Denies: Chest pain, Palpitations Respiratory: Denies: Dyspnea, Cough, Dyspnea on exertion Gastrointestinal: Denies: Abdominal pain, Nausea, Vomiting, Diarrhea, Melena, Hematochezia Genitourinary: Denies: Dysuria, Hematuria, Frequency Musculoskeletal: Reports: Back pain. Denies: Extremity Pain Skin: Denies: Rash, Wounds Neurological: Denies: Headache, Weakness, Parasthesia, Numbness Physical Exam Vital Signs/Narrative: Vital Signs Temp Pulse Resp BP Pulse Ox 06/02/19 06:14 98.0 F 84 22 H 143/80 H 93 Inital Vital Signs reviewed: Yes General: Well nourished, Well developed, Obese, - - Uncomfortable Head: Normocephalic, Atraumatic Eyes: Perrl, EOMI ENT: Moist mucous membranes, No rhinorrhea Neck: Supple, Nontender Cardiovascular: Regular rate, Regular rhythm, No murmurs Respiratory: No distress, CTA bilaterally, Chest nontender Abdomen: Soft, Nontender, Nondistended, Normal bowel sounds Back: - - No midline tenderness, tender palpation right paralumbar, straight leg test negative bilaterally. 1+ patellar reflex bilaterally. Extremities: Nontender, No edema Skin: Normal color, No rash Neurological: Alert, Oriented x3 Psychological: Normal affect, Normal Mood Diagnostic/Tx/Re-eval - Medical Decision Making Patient exam concerns for lumbar strain with muscle spasms there is no midline tenderness. No cauda equina symptoms. She was Toradol and Valium in the ED reevaluation symptoms more controlled he is more comfortable. We will continue to treat symptomatically. Follow-up with PCP for reevaluation as an outpatient. All questions were answered. ED Disposition - Plan for ED Patient: Disposition: Home or Assisted Living Diagnosis: Acute lumbar myofascial strain Instructions: Back Sprain/Strain Prescriptions: Ibuprofen [Motrin] 600 mg PO Q6H PRN PRN #20 tablet PRN Reason: Pain Score 1-10/10 Diazepam [Valium] 5 mg PO Q8 PRN #12 tablet PRN Reason: Muscle Spasm Referrals: Manpreet Milan MD [Primary Care Provider] - 3-5 Days
[2019-06-02] MEDS: diazePAM 5 MG Tablet PO (06:41)
[2019-06-02] MEDS: Ketorolac 60 MG/2 ML Vial IM (06:41)
== END 2019-06-02 07:38 | disposition home or self-care (01) ==
PROVIDERS: Emergency Provider Emergency Medicine; Family Provider Family Medicine; PCP Family Medicine
DX: S39.012A Strain of muscle, fascia and tendon of lower back, initial encounter (principal); X50.1XXA Overexertion from prolonged static or awkward postures, initial encounter; Y93.9 Activity, unspecified; Y92.9 Unspecified place or not applicable; E66.9 Obesity, unspecified; G91.9 Hydrocephalus, unspecified; Z98.2 Presence of cerebrospinal fluid drainage device; Z79.899 Other long term (current) drug therapy
CPT/HCPCS: 96372; 99284

== ENCOUNTER → 2019-07-18 12:18 | Outpatient (CLI) | payer MEDICARE, SELFPAY ==
[2019-03-23 06:29] VITALS: BMI 65.4
--- NOTE | 2019-07-18 14:25 | PFTCOMP ---
COMPLETE PULMONARY FUNCTION TEST INTERPRETATION Brief HPI: Patient is a 34 year old male, currently under the care of Dr. Price, who presents to [facility] for complete pulmonary function tests secondary to diagnosis of asthma. Respiratory therapist reports good effort and reproducible results. Interpretation: Forced expiration spirometry shows a moderately severe large airways obstructive ventilatory defect with an FEV1 of 58% predicted. There is a significant bronchodilator response in FVC by strict ATS criteria. Spirograms are of good quality and plateau slowly, indicating slowly emptying areas of the lungs. The respiratory flow volume loop shows decreased expiratory flow rates at high lung volumes consistent with small airways obstruction. Lung volumes by body plethysmography show a normal total lung capacity at 5.1 L, 91% predicted. FRC and RV are elevated out of proportion. Lung volume measurements are consistent with air-trapping. Diffusion capacity by carbon monoxide is decreased at 78% predicted. The airway resistance is normal. No previous pulmonary function tests were available for review. Impression: Partially reversible moderately severe large airways obstructive ventilatory defect resulting in air trapping.
== END ==
PROVIDERS: Family Provider Family Medicine; PCP Family Medicine; Referring Provider Internal Medicine Critical Care Medicine; Visit Provider Internal Medicine Critical Care Medicine
DX: J45.909 Unspecified asthma, uncomplicated (principal); E66.9 Obesity, unspecified
CPT/HCPCS: 94060; 94726; 94729

== ENCOUNTER 2019-07-29 06:18 | Emergency (ER) | payer MEDICARE, SELFPAY ==
[2019-07-29 06:19] VITALS: BP 108/91; PULSE 107; RESP 22; TEMP 37.6; O2SAT 90; BMI 62.6
--- NOTE | 2019-07-29 06:28 | EKG12_ITS ---
Test Reason : NAUSEA/VOMITING Blood Pressure : / mmHG Vent. Rate : 104 BPM Atrial Rate : 104 BPM P-R Int : 154 ms QRS Dur : 094 ms QT Int : 344 ms P-R-T Axes : 047 077 030 degrees QTc Int : 452 ms Sinus tachycardia Otherwise normal ECG Confirmed by KAMILLE GONZALEZ, AIDAN ([id number]), school photograph editor HUMBERTO VELEZ ([id number]) on 07/31/2019 9:33:12 AM Referred By: CARLOS Confirmed By:GOSIA SIMENTAL MD
--- NOTE | 2019-07-29 06:29 | RAD_ITS ---
HISTORY: COUGH, SOB ADDITIONAL HISTORY: None provided. COMPARISON: 06/25/2018 TECHNIQUE: Frontal and lateral chest radiographs. Number of images including paperwork: 2 FINDINGS: LUNGS AND PLEURA: No dense consolidation. Low lung volumes. No sizable pleural effusion or pneumothorax. CARDIAC SILHOUETTE: Unremarkable. MEDIASTINUM AND OFELIA: Unremarkable. UPPER ABDOMEN: Unremarkable. SKELETON AND SOFT TISSUES: No acute findings. Degenerative changes. OTHER DEVICES AND HARDWARE: Shunt catheter in the right chest and abdominal wall. RAD/Chest PA and Lateral IMPRESSION: Low lung volumes. No definite acute cardiopulmonary abnormality. at 0728 Reported and signed by: Yohana Morejon MD Electronically Signed: Yohana Morejon MD at 7:27 EST Tel , Service support ,
--- NOTE | 2019-07-29 06:30 | ED.VIS.GI ---
History of Present Illness Chief Complaint: Nausea/Vomiting Informant: Patient - Abdominal Pain/Flank Pain Onset: Hours - 5.5 Context: Gradual Onset Timing: Continuous Quality: Aching Location: - - right of umbilicus Current Severity: Moderate Maximum Severity: Moderate Worsened by: - - vomiting Relieved by: Nothing - Nausea/Vomiting/Emesis GI Symptom: Nausea, Vomiting Onset: Today Quality: Nonbilious. Negative for: Blood streaks, Coffee ground, Hematemesis Severity: Moderate - Diarrhea/Melena/Hematochezia GI Symptom: Negative for: Diarrhea, Melena, Hematochezia Associated Symptoms: Negative for: Dysuria, Frequency, Hematuria, Urgency Narrative: Patient states he gradually felt nauseated followed by gas pains in his abdomen that have persisted. It persisted much of the morning and because he felt lightheaded, he states that the on-call nurse directed him to come to the ER. He arrives by EMS. He states that he drinks some sparkling water before he put his CPAP on to go to bed, and went to have a bowel movement. He then started coughing and states that he coughed up the water that I drank. When asked if he was coughing or vomiting, he states both. When asked if he coughed to the point of gagging himself or felt nauseated, he states both. He has a history of asthma and agrees that he feels a little wheezy but he does not feel like he is having a significant flareup, since I do not have any chest tightness. - Past Medical History (1) Benign hypertension Status: Chronic (2) Bronchial asthma Status: Chronic (3) GERD (gastroesophageal reflux disease) Status: Chronic (4) Gout Status: Chronic (5) History of cerebral palsy Status: Chronic (6) Obstructive sleep apnea Status: Chronic (7) S/P MEDICAL RECORDS MANAGER shunt Status: Chronic (8) Type II diabetes mellitus Status: Chronic (9) Vertigo Status: Chronic Past Medical History - Allergies and Home Meds Allergies/Adverse Reactions: Allergies DUST Allergy (Uncoded 07/29/19 06:19) Other Primary Care Physician: Manpreet Milan MD [Primary Care Provider] - Surgical History: - - Cerebral shunt secondary to hydrocephalus, tendon release Lives: Alone Smoking Status: Never smoker Alcohol: None - Family History Maternal Family History: Family History (Last Updated 07/31/19 @ 13:31 by Ying Reagan) Father Chronic a-fib CVA (cerebral vascular accident) Mother ROBERT (obstructive sleep apnea) Breast cancer Grandfather Cancer Other Diabetes Family History: Reports: Diabetes Paternal Family History: Family History (Last Updated 03/23/19 @ 13:31 by Ying Reagan) Father Chronic a-fib CVA (cerebral vascular accident) Mother ROBERT (obstructive sleep apnea) Breast cancer Grandfather Cancer Other Diabetes Family History: Reports: - - History of atrial fibrillation Sibling Family History: Family History (Last Updated 03/23/19 @ 13:31 by Ying Reagan) Father Chronic a-fib CVA (cerebral vascular accident) Mother ROBERT (obstructive sleep apnea) Breast cancer Grandfather Cancer Other Diabetes Family History: Reports: Diabetes Review of Systems General: Reports: Malaise, - - lightheadedness; no near-syncope. Denies: Chills, Fever, Sweats Eyes: Denies: Visual changes - bilaterally, Diplopia ENT: Denies: Rhinorrhea, Sore throat Cardiovascular: Denies: Chest pain, Palpitations Respiratory: Reports: Dyspnea, Cough. Denies: Sputum, Dyspnea on exertion Gastrointestinal: Reports: Abdominal pain, Nausea, Vomiting. Denies: Diarrhea, Melena, Hematochezia Genitourinary: Denies: Dysuria, Hematuria, Frequency Musculoskeletal: Denies: Neck pain, Back pain, Extremity Pain Skin: Denies: Rash, Wounds Neurological: Denies: Headache, Weakness, Numbness Physical Exam Vital Signs/Narrative: Vital Signs Temp Pulse Resp BP Pulse Ox 07/29/19 06:19 99.7 F H 107 H 22 H 108/91 H 90 Inital Vital Signs reviewed: Yes General: Well nourished, Well developed, Obese, No Acute Distress Head: Normocephalic, Atraumatic Eyes: Perrl, EOMI ENT: Moist mucous membranes, No rhinorrhea Neck: Supple, Nontender, No lymphadenopathy Cardiovascular: Regular rate, Regular rhythm, No murmurs, Normal S1, Normal S2, Tachycardia Respiratory: No distress, CTA bilaterally, Chest nontender Abdomen: Soft, Nondistended, Normal bowel sounds, Tender - diffusely, nonfocal. Negative for: Guarding, Rebound tenderness, Pulsatile mass Back: Nontender, Normal Inspection Extremities: Nontender, Edema - 1+ BLE. Negative for: Calf Tenderness Skin: Normal color, No rash, No Trauma Neurological: Alert, Oriented x3, Cranial nerves II-XII grossly intact, Normal Strength, Normal Sensation Psychological: Normal affect, Normal Mood Diagnostic/Tx/Re-eval Impressions Chest X-Ray 07/29/19 06:29 IMPRESSION: Low lung volumes. No definite acute cardiopulmonary abnormality. at 0728 Reported and signed by: Yohana Morejon MD Electronically Signed: Yohana Morejon MD at 7:27 EST Tel , Service support , 07/29/19 06:29 Chest PA and Lateral [RAD] Stat Laboratory Results 07/29/19 07/29/19 06:25 06:25 WBC 9.6 RBC 5.45 Hgb 15.8 Hct 48.9 MCV 89.7 MCH 29.0 MCHC 32.3 RDW Std Deviation 51.5 H RDW Coeff of Kusum 15.9 H Plt Count 183 MPV 11.5 Immature Gran % (Auto) 0.800 Neut % (Auto) 86.3 H Lymph % (Auto) 4.8 L [place] % (Auto) 5.0 Eos % (Auto) 2.8 Baso % (Auto) 0.3 Absolute Neuts (auto) 8.3 H Absolute Lymphs (auto) 0.46 L Nucleated RBC % 0 Sodium 139 Potassium 4.3 Chloride 105 Carbon Dioxide 29.0 Anion Gap 5 BUN 11 Creatinine 0.88 Estim Creat Clear Calc 98.11 Est GFR (MDRD) Af Amer 127 Est GFR (MDRD) Non-Af 105 BUN/Creatinine Ratio 12.5 Glucose 185 H Calcium 8.4 L Total Bilirubin 0.70 AST 30 ALT 50 Alkaline Phosphatase 74 Troponin I < 0.015 Total Protein 8.1 Albumin 3.6 Globulin 4.5 H Albumin/Globulin Ratio 0.8 L Lipase 74 - Rhythm Strip Rhythm Strip: Sinus Tach Rate: 104 Ectopy: None - EKG Initial EKG Interpretation: No Acute Injury Pattern, Sinus Tachycardia - otherwise normal - Medical Decision Making After GI cocktail, Zofran, IV fluids, and simethicone patient is feeling better. He is still little sore in his right abdomen. In talking with him more, he confirms that this started with coughing, that he started coughing so hard that he gagged himself and vomited, and this happened several times. Then he noticed his right abdomen was hurting. I do not think he needs a CT scan. He has no significant leukocytosis or bandemia, and with the way his symptoms started I would not be surprised if this is all muscle strain. Really is tender diffusely. He is breathing better and wheezing last after an albuterol treatment. I will give him a dose of Toradol prior to discharge, he is encouraged to bland diet for the day, I do not think he needs prednisone right now, he is welcome to return if worse or follow-up. ED Disposition - Plan for ED Patient: Disposition: Home or Assisted Living Diagnosis: Acute gastritis without hemorrhage, Asthma exacerbation Instructions: DIET, Vomiting or Diarrhea [6yr-Adult], GASTRITIS (Adult), DIET, [place] (Adult) Prescriptions: proMETHazine tablet [Phenergan] 25 mg PO Q6H PRN PRN #10 tab PRN Reason: Nausea Prescription Printed Referrals: Manpreet Milan MD [Primary Care Provider] - 1-2 Days if not improving (or may return to the ER) Additional Instructions: Drink plenty of fluids. Avoid carbonated beverages while you have this illness.
[2019-07-29 06:35] LABS: Absolute Lymphocyte Count 0.46 X10^3/uL (0.83-4.51); Absolute Neutrophil Count 8.3 X10^3/uL (2.0-7.7); Basophil# 0.03 X10^3/uL; Basophil% 0.3 % (0-1); Eosinophil# 0.27 X10^3/uL; Eosinophils% 2.8 % (0-5); Hematocrit 48.9 % (40-54); Hemoglobin 15.8 g/dL (13.0-16.5); Lymphocyte # 0.46 X10^3/ul (4.0); Lymphocyte % 4.8 % (19-41); Mean Corp Hgb Conc 32.3 g/dL (32-36); Mean Corpuscular Volume 89.7 fL (80-94); Mean Platelet Vol. 11.5 fl (6.2-12.0); Monocyte# 0.48 X10^3/uL; NRBC Flagged by Analyzer 0 % (0-5); Neutrophil # 8.31 X10^3/uL (2.7-7.7); Neutrophil % 86.3 % (47-70); POSITIVE DIFFERENTIAL YES; Platelet Count 183 K/mm3 (150-450); RBC Distribution Width CV 15.9 % (11.6-14.6); RBC Distribution Width SD 51.5 fl (35.1-43.9); Red Blood Count 5.45 M/mm3 (4.6-6.2); White Blood Count 9.6 K/mm3 (4.4-11.0)
[2019-07-29 06:36] LABS: Differential Indicated SCAN CRITERIA MET
[2019-07-29] MEDS: 0.9% Normal Saline 1,000 ML 125 ML IV (06:36)
[2019-07-29] MEDS: Ondansetron 4 MG/2 ML Vial IV (06:36)
[2019-07-29] MEDS: Mag Hydrox/Al Hydrox/Simeth 30 ML UDC PO (06:44)
[2019-07-29 06:49] VITALS: O2SAT 93
[2019-07-29 06:54] VITALS: PULSE 102; RESP 22
[2019-07-29 06:54] LABS: ALB/GLOB Ratio 0.8 RATIO (0.9-2.4); AST(SGOT) 30 U/L (15-37); Alanine Aminotransfer ALT/SGPT 50 U/L (16-61); Albumin, Serum 3.6 g/dL (3.2-5.0); Alkaline Phosphatase 74 U/L (45-117); Anion Gap 5 (5-15); BUN 11 mg/dL (7-18); BUN/Creat Ratio 12.5 RATIO (10-20); Calcium,Total 8.4 mg/dL (8.5-10.1); Chloride 105 mmol/L (98-107); Creatinine, Serum 0.88 mg/dL (0.70-1.30); EST Glomerular Filtration Rate 105 mL/min (>60); Est Glom Filt Rate - Afr Amer 127 mL/min (>60); Estimated Creatinine Clearance 98.11 ml/min; Globulin 4.5 g/dL (2.2-4.2); Glucose 185 mg/dL (74-106); Lipase 74 U/L (73-393); Potassium 4.3 mmol/L (3.5-5.1); Protein, Total 8.1 g/dL (6.4-8.2); Sodium Level 139 mmol/L (136-145)
[2019-07-29] MEDS: Albuterol 2.5 MG/3 ML VIAL.NEB. INHALATION (06:54)
[2019-07-29 07:36] LABS: Bacteria 0 SEEN /hpf (None Seen); Mucous, Urine 0 SEEN /hpf (<or=2+); Red Blood Cells-Urine 0 SEEN /hpf (0-5); Squamous Epithelial Cells - UA 0 SEEN /hpf (0-5); White Blood Cells 0 SEEN /hpf (0-5)
[2019-07-29 07:58] LABS: Color, Urine Yellow (Yellow); Glucose, Dipstick Normal (Normal); Ketone-Dipstick Negative (Negative); Leukocyte Esterase-Dipstick Negative /ul (Negative); Nitrite-Dipstick Negative (Negative); Occult Blood-Urine Negative /ul (Negative); Protein-Dipstick 30 mg/dl (Negative); Urine Bilirubin Dipstick Negative (Negative); Urine Clarity Clear (Clear); Urine Urobilinogen Normal (Normal)
[2019-07-29] MEDS: Ketorolac 30 MG/ML Syringe IV (08:05)
[2019-07-29 08:08] VITALS: BP 153/67; PULSE 73; RESP 19; O2SAT 90
== END 2019-07-29 08:12 | disposition home or self-care (01) ==
PROVIDERS: Emergency Provider Emergency Medicine; Family Provider Family Medicine; PCP Family Medicine
DX: K29.00 Acute gastritis without bleeding (principal); J45.901 Unspecified asthma with (acute) exacerbation; E11.9 Type 2 diabetes mellitus without complications; G47.33 Obstructive sleep apnea (adult) (pediatric); G80.9 Cerebral palsy, unspecified; I10 Essential (primary) hypertension; J45.909 Unspecified asthma, uncomplicated; K21.9 Gastro-esophageal reflux disease without esophagitis; M10.9 Gout, unspecified; Z82.3 Family history of stroke; Z98.2 Presence of cerebrospinal fluid drainage device
CPT/HCPCS: 71046; 80053; 81001; 83690; 84484; 85025; 93005; 94640; 96361; 96374; 96375; 99285; J7030; J2405

== ENCOUNTER → 2019-09-02 14:09 | Outpatient (CLI) | payer MEDICARE, SELFPAY ==
[2019-09-02 13:17] VITALS: BMI 61.6
[2019-09-02 14:53] LABS: Absolute Lymphocyte Count 2.08 X10^3/uL (0.83-4.51); Absolute Neutrophil Count 5.6 X10^3/uL (2.0-7.7); Basophil# 0.07 X10^3/uL; Basophil% 0.8 % (0-1); Eosinophil# 0.39 X10^3/uL; Eosinophils% 4.4 % (0-5); Hematocrit 46.8 % (40-54); Lymphocyte # 2.08 X10^3/ul (4.0); Lymphocyte % 23.3 % (19-41); Mean Corp Hgb Conc 32.1 g/dL (32-36); Mean Corpuscular Hgb 28.7 pg (27.0-32.0); Mean Corpuscular Volume 89.7 fL (80-94); Mean Platelet Vol. 11.7 fl (6.2-12.0); Monocyte# 0.73 X10^3/uL; Monocyte% 8.2 % (0-10); NRBC Flagged by Analyzer 0 % (0-5); Neutrophil # 5.59 X10^3/uL (2.7-7.7); Neutrophil % 62.6 % (47-70); Platelet Count 226 K/mm3 (150-450); Red Blood Count 5.22 M/mm3 (4.6-6.2); White Blood Count 8.9 K/mm3 (4.4-11.0)
[2019-09-07 20:07] LABS: Alternaria alternata <0.10 kU/L (Class 0); Aspirgillus flavus Negative (Neg:<1:1); Aspirgillus fumigatus Negative (Neg:<1:1); Aspirgillus niger Negative (Neg:<1:1); Bermuda Grass <0.10 kU/L (Class 0); Bluegrass, Kentucky <0.10 kU/L (Class 0); Cat Hair/Dander, Standard <0.10 kU/L (Class 0); D farinae Mite <0.10 kU/L (Class 0); D pteronyssinus <0.10 kU/L (Class 0); Dog Epithelia <0.10 kU/L (Class 0); Elm, American White <0.10 kU/L (Class 0); Oak, White <0.10 kU/L (Class 0); Plantain, English <0.10 kU/L (Class 0); Ragweed, Short/Common <0.10 kU/L (Class 0)
[2019-09-07 20:50] LABS: Immunoglobulin E 7 IU/mL (6-495)
[2019-09-07 20:51] LABS: Mouse Urine <0.10 kU/L (Class 0)
== END ==
PROVIDERS: Family Provider Family Medicine; PCP Family Medicine; Referring Provider Nurse Practitioner Acute Care; Visit Provider Nurse Practitioner Acute Care
DX: J45.909 Unspecified asthma, uncomplicated (principal); R06.09 Other forms of dyspnea
CPT/HCPCS: 36415; 82785; 85025; 86003; 86606

== ENCOUNTER → 2019-11-16 08:17 | Outpatient (CLI) | payer MEDICARE, SELFPAY ==
[2019-09-02 13:17] VITALS: BMI 61.6
[2019-11-16 10:18] LABS: Absolute Lymphocyte Count 1.81 X10^3/uL (0.83-4.51); Absolute Neutrophil Count 4.7 X10^3/uL (2.0-7.7); Basophil# 0.05 X10^3/uL; Basophil% 0.7 % (0-1); Eosinophil# 0.37 X10^3/uL; Eosinophils% 4.9 % (0-5); Hematocrit 45.9 % (40-54); Hemoglobin 14.6 g/dL (13.0-16.5); Lymphocyte # 1.81 X10^3/ul (4.0); Lymphocyte % 24.1 % (19-41); Mean Corp Hgb Conc 31.8 g/dL (32-36); Mean Corpuscular Hgb 28.7 pg (27.0-32.0); Mean Corpuscular Volume 90.4 fL (80-94); Mean Platelet Vol. 11.6 fl (6.2-12.0); Monocyte# 0.48 X10^3/uL; Monocyte% 6.4 % (0-10); NRBC Flagged by Analyzer 0 % (0-5); Neutrophil # 4.73 X10^3/uL (2.7-7.7); Platelet Count 205 K/mm3 (150-450); RBC Distribution Width CV 15.3 % (11.6-14.6); RBC Distribution Width SD 50.7 fl (35.1-43.9); Red Blood Count 5.08 M/mm3 (4.6-6.2); White Blood Count 7.5 K/mm3 (4.4-11.0)
[2019-11-16 10:35] LABS: Hemoglobin A1c 5.9 % (4.2-6.3)
[2019-11-16 10:38] LABS: ALB/GLOB Ratio 0.8 RATIO (0.9-2.4); AST(SGOT) 38 U/L (15-37); Alanine Aminotransfer ALT/SGPT 55 U/L (16-61); Albumin, Serum 3.6 g/dL (3.2-5.0); Alkaline Phosphatase 71 U/L (45-117); Anion Gap 8 (5-15); BUN 11 mg/dL (7-18); BUN/Creat Ratio 17.4 RATIO (10-20); Calcium,Total 8.4 mg/dL (8.5-10.1); Chloride 100 mmol/L (98-107); Cholesterol 172 mg/dL (200); Creatinine, Serum 0.63 mg/dL (0.70-1.30); EST Glomerular Filtration Rate 153 mL/min (>60); Est Glom Filt Rate - Afr Amer 185 mL/min (>60); Globulin 4.5 g/dL (2.2-4.2); Glucose 109 mg/dL (74-106); High Density Lipoprotein 34 mg/dL; Potassium 3.7 mmol/L (3.5-5.1); Protein, Total 8.1 g/dL (6.4-8.2); Sodium Level 140 mmol/L (136-145); Thyroid Stim Hormone (TSH) 3.56 uIU/mL (0.358-3.74); Triglycerides 196 mg/dL; Very Low Density Lipoprotein 39 mg/dL (5-40)
[2019-11-16 10:46] LABS: Microalbumin:Creatinine Ratio 78.1 mg/g CRE (<30 mg/g CRE)
== END ==
PROVIDERS: PCP Family Medicine; Referring Provider Family Medicine; Visit Provider Family Medicine
DX: E11.9 Type 2 diabetes mellitus without complications (principal); J45.909 Unspecified asthma, uncomplicated
CPT/HCPCS: 36415; 80053; 80061; 82043; 82570; 83036; 84443; 85025

== ENCOUNTER 2020-01-28 07:58 | Observation (INO) | payer MEDICARE, MEDICAID, SELFPAY ==
[2019-09-02 13:17] VITALS: BMI 61.6
[2020-01-28 08:00] VITALS: BP 153/93; PULSE 90; RESP 22; TEMP 36.9; O2SAT 92; BMI 58.9
--- NOTE | 2020-01-28 08:17 | RAD_ITS ---
STUDY: X-RAY - LEFT FOOT CLINICAL: Male, 34 years old. Extreme pain, stiffness and swelling of the left foot. History of gout. TECHNIQUE: 3 view(s) of the foot. COMPARISON: None. FINDINGS: Normal talus, calcaneus, and tarsal bones. Normal visualized subtalar, talonavicular, calcaneocuboid, tarsal and tarsometatarsal articulations. Normal metatarsi. Nonerosive degenerative narrowing with sclerotic changes of the metatarsophalangeal joint of the great toe. Normal tibial and fibular sesamoid bones. Normal interphalangeal joint of the great toe. Normal phalanges of the great toe. Normal second through fifth metatarsophalangeal joints. Normal interphalangeal joints and phalanges of the lesser toes. Soft tissue swelling around the left foot. RAD/Foot min 3 Views IMPRESSION: 1. 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 2. No acute osseous abnormality of the left foot. Electronically Signed: Romulo Alvarado MD at 8:47 EDT , Service support ,
--- NOTE | 2020-01-28 08:17 | ED.DCSUM_ITS ---
- ER Visit Summary Date of Service: 01/28/20 Chief Complaint: [Left foot pain and inability to care for self] History of Present Illness: The patient is a 34 M [presents to the emergency department with complaint of pain in his left foot that started 4 days ago. Patient has history of gout. Patient attempted using ibuprofen for discomfort which was not helping. He had a telephone call with his primary care physician who called him in [place] which again is not helping his pain. Patient unable to bear any weight on his foot and has been crawling around the house. Patient has history of morbid obesity. Patient has history of cerebral palsy with RAILROAD AUDITOR shunt as a child. Patient has history of hypertension and diabetes. Patient with history of obstructive sleep apnea.] Patient presented via EMS. Physical Examination: [HEENT-PERRLA, EOMI. Cranial nerves II through XII shell sly intact. TMs clear. Mucous membranes moist. No adenopathy. Cardiovascular-regular rate and rhythm without murmur or ectopy Lungs-clear to auscultation, chest wall stable without crepitus or subcu emphysema Abdomen-normoactive bowel sounds, soft, nontender, no rebound or rigidity, no peritoneal signs. Extremities-intact ?4, normal range of motion, normal pulses. Left foot-patient has diffuse soft tissue swelling of the foot with tenderness over the first MTP joint. Patient has diffuse tenderness over the foot as well. Patient has diffuse discomfort to the ankle. No cellulitic changes noted. He does have a superficial abrasion to the dorsum of the base of the third toe which was caused by itching his foot with his right foot.] Test Results: [X-rays of the left foot obtained showed degenerative changes at the first MTP joint otherwise nothing acute. CBC with differential was normal. Chemistries were unremarkable.] Emergency Department Course and Treatment: [Patient was given prednisone 40 mg p.o. as well as 1 [place] p.o.] Treatment Plan: [Admit for pain control] Disposition: [Admit] Impression: [Intractable left foot pain secondary to gouty arthropathy Inability to ambulate and care for self] This note was generated with [employer] software. It may contain incorrect words, spelling, and punctuation that were not noted in review of the chart prior to signing ED Disposition - Plan for ED Patient: Referrals: Manpreet Milan MD [Primary Care Provider] -
[2020-01-28] MEDS: predniSONE 20 MG Tablet 40 MG PO (08:23)
[2020-01-28] MEDS: HYDROcodone Bitartrate/Apap 5/325 Tablet PO (08:23)
[2020-01-28 08:45] LABS: Absolute Lymphocyte Count 1.58 X10^3/uL (0.83-4.51); Basophil# 0.05 X10^3/uL; Basophil% 0.5 % (0-1); Eosinophil# 0.34 X10^3/uL; Eosinophils% 3.5 % (0-5); Hemoglobin 14.5 g/dL (13.0-16.5); Lymphocyte # 1.58 X10^3/ul (4.0); Lymphocyte % 16.4 % (19-41); Mean Corp Hgb Conc 31.5 g/dL (32-36); Mean Corpuscular Hgb 28.6 pg (27.0-32.0); Mean Corpuscular Volume 90.7 fL (80-94); Mean Platelet Vol. 10.8 fl (6.2-12.0); Monocyte# 0.67 X10^3/uL; Monocyte% 6.9 % (0-10); NRBC Flagged by Analyzer 0 % (0-5); Neutrophil # 6.96 X10^3/uL (2.7-7.7); Neutrophil % 72.1 % (47-70); Platelet Count 194 K/mm3 (150-450); RBC Distribution Width CV 15.6 % (11.6-14.6); RBC Distribution Width SD 51.1 fl (35.1-43.9); Red Blood Count 5.07 M/mm3 (4.6-6.2); White Blood Count 9.7 K/mm3 (4.4-11.0)
[2020-01-28 08:55] LABS: Anion Gap 6 (5-15); BUN 9 mg/dL (7-18); BUN/Creat Ratio 13.4 RATIO (10-20); Calcium,Total 8.9 mg/dL (8.5-10.1); Chloride 102 mmol/L (98-107); Creatinine, Serum 0.67 mg/dL (0.70-1.30); EST Glomerular Filtration Rate 143 mL/min (>60); Est Glom Filt Rate - Afr Amer 173 mL/min (>60); Estimated Creatinine Clearance 128.86 ml/min; Glucose 119 mg/dL (74-106); Potassium 3.7 mmol/L (3.5-5.1); Sodium Level 141 mmol/L (136-145)
--- NOTE | 2020-01-28 09:01 | HP.PCM_ITS ---
Problem List (1) STERN (dyspnea on exertion) Status: Chronic (2) GERD (gastroesophageal reflux disease) Status: Chronic (3) Chest pain Status: Acute (4) Benign hypertension Status: Chronic (5) Obstructive sleep apnea Status: Chronic (6) History of cerebral palsy Status: Chronic (7) Type II diabetes mellitus Status: Chronic (8) Gout Status: Chronic (9) Bronchial asthma Status: Chronic Qualifiers: Asthma severity: moderate Asthma persistence: persistent Asthma complication type: uncomplicated Qualified Code(s): J45.40 - Moderate persistent asthma, uncomplicated (10) Super obesity Status: Chronic (11) Vertigo Status: Chronic (12) 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 Patient was not able to put weight or take care of himself. Patient denies fever or chills. He also has swelling of left foot that started from left great toe and then progressed proximally to foot and lower half of left leg. At baseline, patient has mild gait instability/disequilibrium secondary to morbid obesity. Patient has history of DENTAL TECHNICIAN INSTRUCTOR shunt and seizure controlled; last episode when he was in kindergarten on [facility]. He has other comorbidities including obstructive sleep apnea on CPAP, hypertension and GERD. [] Patient was given [place] and prednisone 40 mg in ED. Past Medical History Past Medical History (Chronic Problems): Chronic Problems (Last Reviewed 09/02/19 @ 13:38 by ROBERT Craft) STERN (dyspnea on exertion) (Chronic) GERD (gastroesophageal reflux disease) (Chronic) Benign hypertension (Chronic) Obstructive sleep apnea (Chronic) History of cerebral palsy (Chronic) Type II diabetes mellitus (Chronic) Gout (Chronic) Bronchial asthma (Chronic) Super obesity (Chronic) Vertigo (Chronic) S/P DENTAL TECHNICIAN INSTRUCTOR shunt (Chronic) Medical History: Medical History (Last Reviewed 09/02/19 @ 13:38 by SANA CraftC) GERD (gastroesophageal reflux disease) (Chronic) K21.9 Chest pain (Acute) R07.9 Benign hypertension (Chronic) I10 Obstructive sleep apnea (Chronic) G47.33 History of cerebral palsy (Chronic) Z86.69 Type II diabetes mellitus (Chronic) E11.9 Gout (Chronic) M10.9 Bronchial asthma (Chronic) J45.909 Super obesity (Chronic) E66.9 Vertigo (Chronic) R42 Depression F32.9 History of bronchitis Z87.09 History of pneumonia Z87.01 Hypertension I10 Seizure disorder G40.909 Allergies DUST Allergy (Uncoded 09/02/19 13:38) Other grass Allergy (Uncoded 01/28/20 08:00) PT UNSURE OF REACTION pollen Allergy (Uncoded 01/28/20 08:00) PT UNSURE OF REACTION Home Medications: Ambulatory Orders Medication Instructions Recorded Allopurinol [Zyloprim] 300 mg PO DAILY 06/09/15 Furosemide [Lasix] 40 mg PO BID 06/09/15 Nebivolol HCl [Bystolic (Beta 10 mg PO DAILY 06/09/15 Leonora)] Montelukast [Singulair] 10 mg PO DAILY 01/26/16 Albuterol Sulfate [Ventolin Hfa] 18 gm IH Q4H PRN PRN 05/07/16 Budesonide/Formoterol 80-4.5 2 puff INHALATION BID 05/07/16 [Symbicort 80-4.5 Mcg Inhaler] Guaifenesin [Mucinex] 1,000 mg PO BID PRN 01/24/17 Baclofen 20 mg PO DAILY 06/25/18 Pantoprazole Sodium [Protonix] 40 mg PO DAILY 06/25/18 Potassium 1,080 mg PO DAILY 06/25/18 fluticasone propionate 50 2 spray INTRANASAL DAILY #48 g 03/23/19 mcg/actuation nasal spray,suspension metformin 500 mg tablet,extended 1,000 mg PO BID tab 03/23/19 release 24 hr Fluoxetine HCl 10 mg PO DAILY 01/28/20 Loratadine 10 mg PO DAILY 01/28/20 Multivitamin with Minerals 1 tab PO DAILY 01/28/20 [Multiple Vitamin] levETIRAcetam tablet [Keppra 500 mg PO BID 01/28/20 tablet] Surgical History: Surgical History (Last Reviewed 09/02/19 @ 13:38 by Dania Norris, LEAD PROJECT ENGINEER-C) S/P DENTAL TECHNICIAN INSTRUCTOR shunt (Chronic) H/O eye surgery Z98.890 H/O hernia repair Z98.890, Z87.19 Surgical History: - - Cerebral shunt secondary to hydrocephalus, tendon release Psychiatric History: No pertinent psych hx Smoking Status: Never smoker - *Family History Maternal Family History: Family History (Last Reviewed 09/02/19 @ 13:38 by ROBERT Craft) Father Chronic a-fib CVA (cerebral vascular accident) Mother ROBERT (obstructive sleep apnea) Breast cancer Grandfather Cancer Other Diabetes History Items: Diabetes Paternal Family History: Family History (Last Reviewed 09/02/19 @ 13:38 by ROBERT Craft) Father Chronic a-fib CVA (cerebral vascular accident) Mother ROBERT (obstructive sleep apnea) Breast cancer Grandfather Cancer Other Diabetes History Items: - - History of atrial fibrillation Sibling Family History: Family History (Last Reviewed 09/02/19 @ 13:38 by ROBERT Craft) Father Chronic a-fib CVA (cerebral vascular accident) Mother ROBERT (obstructive sleep apnea) Breast cancer Grandfather Cancer Other Diabetes History Items: Diabetes Review of Systems Constitutional: Denies: Chills, Fever, Weight Change HEENT: Denies: Head Aches, Sinus Congestion, Sinus Drainage Cardiovascular: Denies: Chest Pain, Palpitations Respiratory: Reports: Shortness of breath upon exertion. Denies: Cough, Shortness of breath at rest, Sputum production Gastrointestinal: Denies: Abdominal Pain, Nausea, Vomiting Genitourinary: Reports: - - Noticed decreased urine amount for last few days because of decreased water intake.. Denies: Dysuria, Frequency, Retention, Urgency Musculoskeletal: Reports: Foot Pain, Joint Pain, Joint stiffness, Joint swelling, Joint Tenderness, Leg Pain Skin: Denies: Rash, Wounds Neurological: Reports: Balance problems, Incoordination. Denies: Focal weakness, Numbness, Tingling Psychiatric: Denies: Anxiety, Depression, Homicidal Ideations, Suicidal Ideations Hematologic/ Lymphatic: Denies: Easy Bruising, Easy Bleeding VTE Information - Inpt Only VTE Present on Admission: No VTE Mechan Device Prophylaxis: None VTE Pharm Prophylaxis ordered?: Yes Patient Problems: Active and Suspected Problems (Last Reviewed 09/02/19 @ 13:38 by ROBERT Craft) Exacerbation of gout (Acute) - Physical Exam Vitals/I&O's: Vital Signs Temp Pulse Resp BP Pulse Ox 98.5 F 90 22 H 153/93 H 92 01/28/20 08:00 01/28/20 08:00 01/28/20 08:00 01/28/20 08:00 01/28/20 08:00 Oxygen Delivery Method Room Air Weight: 343 lb 7.683 oz Body Mass Index (BMI) 58.9 General: Alert, Oriented x3, Cooperative HEENT: Atraumatic, PERRLA, EOMI, Normocephalic Neck: Supple, No JVD, Negative Carotid Bruits Lungs: Clear to auscultation, No rhonchi, No wheeze, No rales, Diminished - Air entry is bilaterally diminished Cardiovascular: Regular rate, Regular Rhythm, Normal S1, Normal S2, No murmurs Abdomen: Bowel Sounds Present, Soft, Non Tender, Non-Distended Extremities: Capillary Refill Less than 3 Seconds, Edema - Edema of left foot and left lower leg., Tenderness - Exquisite tenderness present over left foot including left great toe along with swelling Skin: No rashes, No breakdown Musculoskeletal: Arthritic Changes, Tenderness Neurological: Cranial nerves II-XII grossly intact, Deep Tendon Reflexes 2+/4 and Symmetrical, Neuro grossly intact, - - Patient has DENTAL TECHNICIAN INSTRUCTOR shunt, palpable behind the right ear. Mild squint of eyes. Psych/Mental Status: Normal Affect, Appropriate Laboratory Results 01/28/20 08:30: WBC 9.7, RBC 5.07, Hgb 14.5, Hct 46.0, MCV 90.7, MCH 28.6, MCHC 31.5 L, RDW Std Deviation 51.1 H, RDW Coeff of Kusum 15.6 H, Plt Count 194, MPV 10.8, Immature Gran % (Auto) 0.600, Neut % (Auto) 72.1 H, Lymph % (Auto) 16.4 L, [place] % (Auto) 6.9, Eos % (Auto) 3.5, Baso % (Auto) 0.5, Absolute Neuts (auto) 7.0, Absolute Lymphs (auto) 1.58, Nucleated RBC % 0 01/28/20 08:30: Sodium 141, Potassium 3.7, Chloride 102, Carbon Dioxide 33.0 H, Anion Gap 6, BUN 9, Creatinine 0.67 L, Estim Creat Clear Calc 128.86, Est GFR (MDRD) Af Amer 173, Est GFR (MDRD) Non-Af 143, BUN/Creatinine Ratio 13.4, Glucose 119 H, Calcium 8.9 Current Medications Colchicine (Colchicine) 0.6 mg PO BID [facility] Colchicine (Colchicine) 1.2 mg PO X1 ONE Stop: 01/28/20 08:59 Sodium Chloride () 1,000 mls @ 100 mls/hr IV .Q10H [facility] Assessment/Plan All Active Problems (Last Reviewed 09/02/19 @ 13:38 by Dania Norris, DUSTIN-C) Exacerbation of gout (Acute) Chest pain (Acute) This 34-year-old gentleman with history of morbid obesity weight, CP, history of seizure, hydrocephalus status post DENTAL TECHNICIAN INSTRUCTOR shunt came to ER with left foot gout exacerbation 1. Acute exacerbation of gout: Patient is being admitted on MedSurg. Uric acid is 11.1, calcium 8.9. IV fluid normal saline. Started on colchicine 1.2 mg now. If pain does not get better can repeat 0.6 mg after 2 to 3 hours. Routine colchicine prophylaxis 0.6 mg twice daily from tomorrow a.m. Patient had prednisone 40 mg in the ER. Monitor kidney function, electrolytes, intake and output. Motrin as needed for moderate pain. Continue allopurinol 300 mg daily. 2. Diabetes mellitus type 2: Glucose 619. A1c tomorrow a.m. Accu-Chek SHS and cover with blood sliding scale. Hold metformin. 3. Hypertension: Blood pressure is slightly elevated. On Bystolic 10 mg daily. Hydralazine 10 mg IV every 4 hourly as needed for systolic blood pressure more than 180 mmHg. 4. Super morbid, obstructive sleep apnea, chronic rhinitis/sinusitis/postnasal drip syndrome, GERD, physical deconditioning: PT and OT ordered. Dining Room Manager consult. Patient uses his own CPAP. On loratadine. 5. Neurological disease: Mild CP, history of seizure, hydrocephalus status post DENTAL TECHNICIAN INSTRUCTOR shunt: Keppra regimen. 6. DVT prophylaxis: High risk secondary to morbid obesity, gout exacerbation and inability to walk: Lovenox 40 mg every 12 hourly. OBSV E&M: [id number] Initial observation care L2
[2020-01-28 09:21] VITALS: BP 147/91; PULSE 91; RESP 14; TEMP 36.7; O2SAT 98
[2020-01-28 09:35] LABS: AST(SGOT) 21 U/L (15-37); Alanine Aminotransfer ALT/SGPT 41 U/L (16-61); Albumin, Serum 3.5 g/dL (3.2-5.0); Alkaline Phosphatase 69 U/L (45-117); Bilirubin, Direct 0.15 mg/dL (0.00-0.30); Globulin 4.9 g/dL (2.2-4.2); Magnesium 2.1 mg/dL (1.6-2.6); Protein, Total 8.4 g/dL (6.4-8.2); Uric Acid 11.1 mg/dL (3.5-7.2)
[2020-01-28 09:38] LABS: Phosphorus 2.4 mg/dL (2.5-4.9)
[2020-01-28 09:43] VITALS: BMI 59.2
[2020-01-28 09:52] VITALS: BP 141/94; PULSE 90; RESP 18; TEMP 36.8; O2SAT 95
[2020-01-28 11:36] LABS: Bedside Glucose 131 mg/dL (70-110)
[2020-01-28] MEDS: 0.9% Normal Saline 1,000 ML 100 ML IV ×2 (11:40→21:35)
[2020-01-28] MEDS: Fluticasone 0.05% 1 SPRAY NASAL.SRY 2 SPRAY NASAL (12:36)
[2020-01-28] MEDS: Pantoprazole Sodium 40 MG Tablet PO (12:37)
[2020-01-28] MEDS: levETIRAcetam 500 MG Tablet PO ×2 (12:37→21:47)
[2020-01-28] MEDS: Enoxaparin 40 MG/0.4 ML Syringe SC ×2 (12:38→21:47)
[2020-01-28] MEDS: Nebivolol HCl 10 MG Tablet PO (12:38)
[2020-01-28] MEDS: Montelukast 10 MG Tablet PO (12:38)
[2020-01-28] MEDS: Allopurinol 300 MG Tablet PO (12:38)
[2020-01-28] MEDS: Ibuprofen 400 MG Tablet PO ×2 (12:42→21:50)
[2020-01-28 15:57] VITALS: BP 148/89; PULSE 84; RESP 18; TEMP 37; O2SAT 92
--- NOTE | 2020-01-28 16:05 | CASEMGMT ---
Addendum entered by Wiley Ramírez 01/28/20 19:55: Addendum: Call was placed to [employer] to inquire if they deliver Walkers to the hospital on the weekend. Per [employer] route sales delivery driver/route sales delivery drivers supervisor, they do not. Original Note: BEKAH MARTINEZ NOTE: To room to talk with pt. Introduced self and role of BEKAH MARTINEZ. Pt states he lives alone and has aides through [employer] for 15 hrs/week. He receives Mom's meals, 14 meals every 2 weeks. His [employer] CM is Tabitha. ANN, Claire, kb aware. Pharmacy: [facility]; [facility]. DME pt has @ home: CPAP through [employer] w/O2 bleed-in @ 5 L/M, nebulizer, Glucometer-states it is functioning well and he has all the needed supplies for it, shower chair, rails/grab bars in bathroom. Pt states is it has been difficult getting around at home d/t the severe pain from the gout flare-up and was crawling around on the floor. He states he does not have a cane or a walker. He does not feel he would be safe using crutches and would like a walker. Pt made aware walker could not be delivered to the hospital over the weekend, but that he could be given a script for a walker and he could get one at a location of his choice, but that DME companies are not open on Sundays. Pt states the pain is improving and he is able to get around better now since being at the hospital and feels he would be safe at home and able to get around well enough until Thursday when he could get a walker and that his parents could help him with picking up a walker. Plan: Home. PT/OT evals are pending. Will await eval to ensure pt is safe to return home. Pt to be given script for WW prior to discharge and he/parents can bean picker WW at location of their choice. Yohana GODFREY aware. Script on chart for Dr Forrest to sign for Heavy duty WW. Dr Forrest aware. Colt BANGURAN BEKAH MARTINEZ
[2020-01-28 16:20] LABS: Bedside Glucose 143 mg/dL (70-110)
--- NOTE | 2020-01-28 16:25 | CASEMGMT ---
As per CM, pt has waiver services and Tabitha Blackmon is pt's case investigator, pt has aides through [employer]. Green sheet will be placed on chart with information to contact Tabitha Blackmon and Sheila at discharge. SW also left Tabitha a message letting her know pt is in the hospital. FCO Ruelas
[2020-01-28 21:39] VITALS: BP 143/81; PULSE 77; RESP 18; TEMP 36.4; O2SAT 93
[2020-01-28 22:21] LABS: Bedside Glucose 140 mg/dL (70-110)
[2020-01-29 03:36] VITALS: BP 129/84; PULSE 72; RESP 18; TEMP 36.3; O2SAT 100
[2020-01-29] MEDS: oxyCODONE 5 MG Tablet PO (06:23)
[2020-01-29 06:39] LABS: Absolute Lymphocyte Count 2.58 X10^3/uL (0.83-4.51); Absolute Neutrophil Count 5.5 X10^3/uL (2.0-7.7); Basophil# 0.07 X10^3/uL; Basophil% 0.7 % (0-1); Eosinophil# 0.26 X10^3/uL; Eosinophils% 2.8 % (0-5); Hematocrit 42.9 % (40-54); Hemoglobin 13.5 g/dL (13.0-16.5); Lymphocyte # 2.58 X10^3/ul (4.0); Lymphocyte % 27.4 % (19-41); Mean Corp Hgb Conc 31.5 g/dL (32-36); Mean Corpuscular Hgb 29.2 pg (27.0-32.0); Mean Corpuscular Volume 92.9 fL (80-94); Mean Platelet Vol. 11.6 fl (6.2-12.0); Monocyte# 0.87 X10^3/uL; Monocyte% 9.2 % (0-10); NRBC Flagged by Analyzer 0 % (0-5); Neutrophil # 5.54 X10^3/uL (2.7-7.7); Neutrophil % 58.8 % (47-70); Platelet Count 215 K/mm3 (150-450); RBC Distribution Width CV 15.9 % (11.6-14.6); RBC Distribution Width SD 53.3 fl (35.1-43.9); Red Blood Count 4.62 M/mm3 (4.6-6.2); White Blood Count 9.4 K/mm3 (4.4-11.0)
[2020-01-29 06:51] LABS: Bedside Glucose 111 mg/dL (70-110)
[2020-01-29 07:08] LABS: Anion Gap 4 (5-15); BUN 14 mg/dL (7-18); BUN/Creat Ratio 19.4 RATIO (10-20); Calcium,Total 8.7 mg/dL (8.5-10.1); Chloride 106 mmol/L (98-107); Creatinine, Serum 0.72 mg/dL (0.70-1.30); EST Glomerular Filtration Rate 131 mL/min (>60); Est Glom Filt Rate - Afr Amer 158 mL/min (>60); Estimated Creatinine Clearance 119.91 ml/min; Glucose 123 mg/dL (74-106); Potassium 4.1 mmol/L (3.5-5.1); Sodium Level 141 mmol/L (136-145)
[2020-01-29] MEDS: 0.9% Normal Saline 1,000 ML 100 ML IV (07:43)
[2020-01-29 09:15] VITALS: BP 111/70; PULSE 70; RESP 16; TEMP 36.5; O2SAT 95
[2020-01-29] MEDS: Pantoprazole Sodium 40 MG Tablet PO (09:57)
[2020-01-29] MEDS: levETIRAcetam 500 MG Tablet PO ×2 (09:58→21:53)
[2020-01-29] MEDS: Loratadine 10 MG Tablet PO (09:58)
[2020-01-29] MEDS: Montelukast 10 MG Tablet PO (09:58)
[2020-01-29] MEDS: FLUoxetine 10 MG Capsule PO (09:58)
[2020-01-29] MEDS: Fluticasone 0.05% 1 SPRAY NASAL.SRY 2 SPRAY NASAL (09:59)
[2020-01-29] MEDS: Nebivolol HCl 10 MG Tablet PO (09:59)
[2020-01-29] MEDS: Enoxaparin 40 MG/0.4 ML Syringe SC ×2 (10:04→21:53)
[2020-01-29] MEDS: predniSONE 20 MG Tablet 40 MG PO (10:05)
[2020-01-29] MEDS: Allopurinol 300 MG Tablet PO (10:06)
[2020-01-29] MEDS: Ibuprofen 400 MG Tablet PO ×3 (10:09→21:53)
[2020-01-29 11:16] LABS: Bedside Glucose 149 mg/dL (70-110)
[2020-01-29 11:28] VITALS: BP 114/68; PULSE 76; RESP 16; TEMP 36.8; O2SAT 95
--- NOTE | 2020-01-29 12:23 | PCM.PN.HOSP ---
Patient Problems: Active and Suspected Problems (Last Reviewed 09/02/19 @ 13:38 by ROBERT Craft) Exacerbation of gout (Acute) Reason for Visit: Acute gouty arthritis exacerbation with multiple comorbidities Objective: No fever or chills. Mild improvement in distal left foot and lower leg pain but he still has moderate to severe pain in left great toe and forefoot. Swelling of left great toe. No open ulcer. On physical exam General: Alert, Oriented x3, Cooperative HEENT: Atraumatic, PERRLA, EOMI, Normocephalic Neck: Supple, No JVD, Negative Carotid Bruits Lungs: Clear to auscultation, No rhonchi, No wheeze, No rales, Air entry is bilaterally diminished to obesity Cardiovascular: Regular rate, Regular Rhythm, Normal S1, Normal S2, No murmurs Abdomen: Bowel Sounds Present, Soft, Non Tender, Non-Distended Extremities: Capillary Refill Less than 3 Seconds, Edema of left foot. Exquisite tenderness present over left forefoot and left great toe along with swelling. Mild erythema present on left forefoot Skin: No breakdown, no ulcer Musculoskeletal: Arthritic Changes, Tenderness as described above Neurological: Cranial nerves II-XII grossly intact, Deep Tendon Reflexes 2+/4 and Symmetrical, Neuro grossly intact, - - Patient has YEAST STACKER shunt, palpable behind the right ear. Mild squint of eyes. Psych/Mental Status: Normal Affect, Appropriate Vitals/I&O's: Vital Signs Temp Pulse Resp BP Pulse Ox 98.2 F 76 16 114/68 95 01/29/20 11:28 01/29/20 11:28 01/29/20 11:28 01/29/20 11:28 01/29/20 11:28 Oxygen Flow Rate (L/min) 5 Oxygen Delivery Method Room Air Weight: 345 lb Body Mass Index (BMI) 59.2 Intake and Output for Last 24 Hours 01/27/20 01/28/20 01/29/20 23:59 23:59 23:59 Intake Total 1631.67 / 1631.67 2420 / 2420 Output Total 200 / 200 500 / 500 Balance 1431.67 / 1431.67 1920 / 1920 Laboratory Results 01/28/20 16:12: POC Glucose 143 H 01/28/20 21:44: POC Glucose 140 H 01/29/20 06:12: WBC 9.4, RBC 4.62, Hgb 13.5, Hct 42.9, MCV 92.9, MCH 29.2, MCHC 31.5 L, RDW Std Deviation 53.3 H, RDW Coeff of Kusum 15.9 H, Plt Count 215, MPV 11.6, Immature Gran % (Auto) 1.100 H, Neut % (Auto) 58.8, Lymph % (Auto) 27.4, [place]minn % (Auto) 9.2, Eos % (Auto) 2.8, Baso % (Auto) 0.7, Absolute Neuts (auto) 5.5, Absolute Lymphs (auto) 2.58, Nucleated RBC % 0 01/29/20 06:12: Sodium 141, Potassium 4.1, Chloride 106, Carbon Dioxide 31.0, Anion Gap 4 L, BUN 14, Creatinine 0.72, Estim Creat Clear Calc 119.91, Est GFR (MDRD) Af Amer 158, Est GFR (MDRD) Non-Af 131, BUN/Creatinine Ratio 19.4, Glucose 123 H, Calcium 8.7, TSH 3.80 H 01/29/20 06:44: POC Glucose 111 H 01/29/20 11:10: POC Glucose 149 H Current Medications Acetaminophen (Tylenol) 650 mg PO Q6H PRN PRN PRN Reason: Pain Score 1-10/Temp > 100.7 F Albuterol Sulfate (Ventolin Aerosols) 2.5 mg INHALATION Q2H PRN PRN PRN Reason: Shortness of Breath/Wheezing Allopurinol (Zyloprim) 300 mg PO DAILY [facility] Last Admin: 01/29/20 10:06 Dose: 300 mg Documented by: Colchicine (Colchicine) 0.6 mg PO BID [facility] Last Admin: 01/29/20 09:57 Dose: 0.6 mg Documented by: Dextrose (D50w Syringe) 0 gm IV X1 PRN; Protocol PRN Reason: Hypoglycemia Enoxaparin Sodium (Lovenox) 40 mg SC BID [facility] Last Admin: 01/29/20 10:04 Dose: 40 mg Documented by: Fluoxetine HCl (Prozac) 10 mg PO DAILY [facility] Last Admin: 01/29/20 09:58 Dose: 10 mg Documented by: Fluticasone Propionate (Flonase Nasal [place]) 2 spray NASAL DAILY [facility] Last Admin: 01/29/20 09:59 Dose: 2 spray Documented by: Glucagon () 1 mg IM .X1 PRN PRN Reason: Hypoglycemia Guaifenesin (Mucinex) 1,200 mg PO BID PRN PRN Reason: CONGESTION Sodium Chloride () 250 mls @ 15 mls/hr IV .[id number] PRN PRN Reason: Saline Flush Sodium Chloride () 250 mls @ 15 mls/hr IV .[id number] PRN PRN Reason: Additional IVPB Infusion Ibuprofen (Motrin) 400 mg PO Q4H PRN PRN PRN Reason: Pain Score 4-10/10 Last Admin: 01/29/20 10:09 Dose: 400 mg Documented by: Insulin Human Lispro (Humalog Kwikpen (Bkc)) 0 unit SC [facility]; Protocol Last Admin: 01/29/20 11:30 Dose: Not Given Documented by: Levetiracetam (Keppra Tablet) 500 mg PO BID [facility] Last Admin: 01/29/20 09:58 Dose: 500 mg Documented by: Loratadine (Claritin) 10 mg PO DAILY [facility] Last Admin: 01/29/20 09:58 Dose: 10 mg Documented by: Montelukast Sodium (Singulair) 10 mg PO DAILY [facility] Last Admin: 01/29/20 09:58 Dose: 10 mg Documented by: Morphine Sulfate () 2 mg IV Q3H PRN PRN PRN Reason: Pain Score 6-10/10 Nebivolol (Bystolic) 10 mg PO DAILY [facility] Last Admin: 01/29/20 09:59 Dose: 10 mg Documented by: Nystatin (Mycostatin Powder) 1 applic TOPICAL TID [facility]; Protocol Ondansetron HCl (Zofran) 4 mg IV Q8H PRN PRN PRN Reason: NAUSEA/VOMITING Oxycodone HCl (Oxyir) 5 mg PO Q4H PRN PRN PRN Reason: Pain Score 4-5/10 Last Admin: 01/29/20 06:23 Dose: 5 mg Documented by: Pantoprazole Sodium (Protonix) 40 mg PO DAILY [facility] Last Admin: 01/29/20 09:57 Dose: 40 mg Documented by: Prednisone () 40 mg PO DAILY@0800 [facility] Last Admin: 01/29/20 10:05 Dose: 40 mg Documented by: Psyllium Hydrophilic Mucilloid (Metamucil) 1 packet PO DAILY PRN PRN PRN Reason: Constipation Senna/Docusate Sodium (Senokot-S, Sherice-Colace) 2 tablet PO BID [facility] Last Admin: 01/29/20 09:58 Dose: Not Given Documented by: Sodium Chloride () 10 - 40 ml IV UD PRN PRN Reason: SALINE FLUSH STROKE Vital Signs/Narrative: Vital Signs Temp Pulse Resp BP Pulse Ox 01/29/20 11:28 98.2 F 76 16 114/68 95 01/29/20 09:15 97.7 F L 70 16 111/70 95 Medical Necessity - Tobacco Use Smoking Status: Never smoker Assessment/Plan All Active Problems (Last Reviewed 09/02/19 @ 13:38 by Dania Norris NP-C) Exacerbation of gout (Acute) Chest pain (Acute) This 34-year-old gentleman with history of morbid obesity weight, CP, history of seizure, hydrocephalus status post YEAST STACKER shunt came to ER with left foot gout exacerbation 1. Acute exacerbation of gout: Patient is being admitted on MedSurg. Uric acid is 11.1, calcium 8.9. IV fluid normal saline. Started on colchicine 1.2 mg now. If pain does not get better can repeat 0.6 mg after 2 to 3 hours. Routine colchicine prophylaxis 0.6 mg twice daily from tomorrow a.m. Patient had prednisone 40 mg in the ER. Monitor kidney function, electrolytes, intake and output. Motrin as needed for moderate pain. Continue allopurinol 300 mg daily. 6/7: Pain is better. Continue colchicine. Prednisone continued. Patient might need to increase allopurinol gradually 100 mg/day q. weekly until uric acid is less than 5.8 as an outpatient when acute exacerbation is over. 2. Diabetes mellitus type 2: Glucose 619. A1c tomorrow a.m. Accu-Chek SHS and cover with blood sliding scale. Hold metformin. 3. Hypertension: Blood pressure is slightly elevated. On Bystolic 10 mg daily. Hydralazine 10 mg IV every 4 hourly as needed for systolic blood pressure more than 180 mmHg. 4. Super morbid, obstructive sleep apnea, chronic rhinitis/sinusitis/postnasal drip syndrome, GERD, physical deconditioning: PT and OT ordered. Commissary Helper consult. Patient uses his own CPAP. On loratadine. 5. Neurological disease: Mild CP, history of seizure, hydrocephalus status post YEAST STACKER shunt: Keppra regimen. 6. DVT prophylaxis: High risk secondary to morbid obesity, gout exacerbation and inability to walk: Lovenox 40 mg every 12 hourly. Inpatient E&M: 60653 Subs Hosp L2
[2020-01-29] MEDS: Nystatin Powder 15gm Bottle 1 APPLIC TOPICAL ×2 (14:55→21:54)
[2020-01-29 15:17] VITALS: BP 96/69; PULSE 73; RESP 16; TEMP 36.8; O2SAT 94
--- NOTE | 2020-01-29 15:17 | NURSING ---
mother josse called with update
[2020-01-29 16:35] LABS: Bedside Glucose 140 mg/dL (70-110)
[2020-01-29 21:45] VITALS: BP 134/75; PULSE 69; RESP 16; TEMP 37.1; O2SAT 94
[2020-01-29 22:05] LABS: Bedside Glucose 175 mg/dL (70-110)
[2020-01-30 03:57] VITALS: BP 149/90; PULSE 66; RESP 18; TEMP 36.3; O2SAT 98
[2020-01-30] MEDS: Ibuprofen 400 MG Tablet PO (06:19)
[2020-01-30] MEDS: Nystatin Powder 15gm Bottle 1 APPLIC TOPICAL (06:21)
[2020-01-30 06:26] LABS: Absolute Neutrophil Count 6.4 X10^3/uL (2.0-7.7); Basophil# 0.06 X10^3/uL; Basophil% 0.6 % (0-1); Eosinophil# 0.18 X10^3/uL; Eosinophils% 1.8 % (0-5); Hematocrit 42.6 % (40-54); Hemoglobin 13.3 g/dL (13.0-16.5); Lymphocyte % 26.5 % (19-41); Mean Corp Hgb Conc 31.2 g/dL (32-36); Mean Corpuscular Hgb 28.7 pg (27.0-32.0); Mean Platelet Vol. 11.2 fl (6.2-12.0); Monocyte% 7.9 % (0-10); NRBC Flagged by Analyzer 0 % (0-5); Neutrophil # 6.38 X10^3/uL (2.7-7.7); Neutrophil % 62.5 % (47-70); Platelet Count 219 K/mm3 (150-450); RBC Distribution Width CV 15.7 % (11.6-14.6); RBC Distribution Width SD 52.3 fl (35.1-43.9); Red Blood Count 4.63 M/mm3 (4.6-6.2); White Blood Count 10.2 K/mm3 (4.4-11.0)
[2020-01-30 06:30] LABS: Bedside Glucose 105 mg/dL (70-110)
[2020-01-30 06:53] LABS: Anion Gap 4 (5-15); BUN 16 mg/dL (7-18); BUN/Creat Ratio 26.1 RATIO (10-20); Calcium,Total 8.9 mg/dL (8.5-10.1); Chloride 107 mmol/L (98-107); Creatinine, Serum 0.61 mg/dL (0.70-1.30); EST Glomerular Filtration Rate 158 mL/min (>60); Est Glom Filt Rate - Afr Amer 191 mL/min (>60); Estimated Creatinine Clearance 141.53 ml/min; Glucose 108 mg/dL (74-106); Sodium Level 139 mmol/L (136-145); T4 Free Direct 1.19 ng/dL (0.76-1.46)
[2020-01-30 07:34] VITALS: O2SAT 93
[2020-01-30 08:11] LABS: Hemoglobin A1c 5.6 % (3.8-5.6)
[2020-01-30 08:12] VITALS: BP 133/78; PULSE 63; RESP 16; TEMP 36.7; O2SAT 95
[2020-01-30] MEDS: predniSONE 20 MG Tablet 40 MG PO (08:20)
--- NOTE | 2020-01-30 09:26 | DCINST_ITS ---
- Discharge Diagnoses Current Active Problems: Current Active and Chronic Problems (Last Reviewed 09/02/19 @ 13:38 by ROBERT Craft) Exacerbation of gout (Acute) You will use the following diet at home:: Calorie/Carbohydrate Controlled (specify 1200, 1400, etc), Cardiac Discharge Activity: May Not Drive Call your doctor if you observe: Fever of 101 or Higher, Coldness, Increased Pain, Numbness or Tingling, Inability to urinate, Inability to have a bowel mo vement, Shortness of breath, Dizziness, Fainting spells, Swelling in the ankles, Chest pain, Prolonged hiccoughing, Calf discomfort, Uncontrolled pain Additional Instructions: Advised to follow-up with PCP for increase allopurinol 100 mg q. weekly in 1 week to decrease the uric acid serum level less than 5.8 mg/dl Allergies/Adverse Reactions: Allergies DUST Allergy (Uncoded 09/02/19 13:38) Other grass Allergy (Uncoded 01/28/20 08:00) PT UNSURE OF REACTION pollen Allergy (Uncoded 01/28/20 08:00) PT UNSURE OF REACTION Medications to take at Discharge RX: Allopurinol [Zyloprim] 300 mg PO DAILY 06/09/15 RX: Nebivolol HCl [Bystolic (Beta Leonora)] 10 mg PO DAILY 06/09/15 RX: Montelukast [Singulair] 10 mg PO DAILY 01/26/16 RX: Albuterol Sulfate [Ventolin Hfa] 18 gm IH Q4H PRN PRN 05/07/16 RX: Budesonide/Formoterol 80-4.5 [Symbicort 80-4.5 Mcg Inhaler] 2 puff INHALATION BID 05/07/16 RX: Guaifenesin [Mucinex] 1,000 mg PO BID PRN 01/24/17 RX: Baclofen 20 mg PO DAILY 06/25/18 RX: Pantoprazole Sodium [Protonix] 40 mg PO DAILY 06/25/18 RX: Potassium 1,080 mg PO DAILY 06/25/18 fluticasone propionate 50 mcg/actuation nasal spray,suspension 2 spray INTRANASAL DAILY #48 g 03/23/19 metformin 500 mg tablet,extended release 24 hr 1,000 mg PO BID tab 03/23/19 RX: Fluoxetine HCl 10 mg PO DAILY 01/28/20 RX: Loratadine 10 mg PO DAILY 01/28/20 RX: Multivitamin with Minerals [Multiple Vitamin] 1 tab PO DAILY 01/28/20 RX: levETIRAcetam tablet [Keppra tablet] 500 mg PO BID 01/28/20 RX: Colchicine 0.6 mg PO BID #60 tab 01/30/20 RX: Furosemide [Lasix] 40 mg PO DAILY #0 01/30/20 RX: Nystatin Powder [Mycostatin Powder] 1 applic TOPICAL TID #1 bottle 01/30/20 The following prescriptions were given: RX: Colchicine 0.6 mg PO BID #60 tab Transmission Status: Sent to [facility]/pharmacy #[id number] RX: Nystatin Powder [Mycostatin Powder] 1 applic TOPICAL TID #1 bottle Transmission Status: Pending to [facility]/pharmacy #[id number] Primary Care Physician: Manpreet Milan MD [Primary Care Provider] - Please follow up with your Primary Care Physician in: in 1 week to increase the dose of allopurinol for gout prophylaxis Test Results: Test results from this visit will be discussed in further detail at your follow- up appointment, if applicable.
--- NOTE | 2020-01-30 09:28 | PCM.DC.SUM ---
Discharge Date and Diagnosis Date of Admission: 01/28/20 Date of Discharge: 01/30/20 - Primary Discharge Diagnosis Acute Problems: Active Problems (Last Reviewed 09/02/19 @ 13:38 by ROBERT Craft) Exacerbation of gout (Acute) - Secondary Discharge Diagnosis Chronic Problems: Chronic Problems (Last Reviewed 09/02/19 @ 13:38 by ROBERT Craft) STERN (dyspnea on exertion) (Chronic) GERD (gastroesophageal reflux disease) (Chronic) Benign hypertension (Chronic) Obstructive sleep apnea (Chronic) History of cerebral palsy (Chronic) Type II diabetes mellitus (Chronic) Gout (Chronic) Bronchial asthma (Chronic) Super obesity (Chronic) Vertigo (Chronic) S/P SAP SENIOR DEVELOPER shunt (Chronic) Hospital Course and Treatment Operations: None Summary of Care Provided: T[] This 34-year-old gentleman with history of morbid obesity weight, CP, history of seizure, hydrocephalus status post SAP SENIOR DEVELOPER shunt came to ER with left foot gout exacerbation 1. Acute exacerbation of gout: Patient is being admitted on MedSur. Uric acid is 11.1, calcium 8.9. IV fluid normal saline. Patient was started on colchicine and was treated with prednisone for 2 days. Advised to continue colchicine 0.6 mg twice daily for 5 days and then 1 tablet daily. Prescription for colchicine given. Colchicine given. Advised to not to take indomethacin or other NSAID and prednisone. Continue allopurinol 400 mg daily advised to follow-up with PCP in 1 week. Will need to increase allopurinol dose 100 mg/day q. weekly until uric acid is less than 5.8 when acute exacerbation is over. Prescription for walker signed. 2. Diabetes mellitus type 2: Glucose 619. A1c 5.6 suggestive good control of glucose last 3 months. Accu-Chek SHS and cover with blood sliding scale. Metformin resumed 3. Hypertension: Blood pressure is slightly elevated. On Bystolic 10 mg daily. Blood pressure is controlled 4. Super morbid, obstructive sleep apnea, chronic rhinitis/sinusitis/postnasal drip syndrome, GERD, physical deconditioning: PT and OT ordered. Plaster Mixer consult. Patient uses his own CPAP. On loratadine. 5. Neurological disease: Mild CP, history of seizure, hydrocephalus status post SAP SENIOR DEVELOPER shunt: Keppra regimen. 6. DVT prophylaxis: High risk secondary to morbid obesity, gout exacerbation and inability to walk: Lovenox 40 mg every 12 hourly. Discharge medication reconciliation done. Discharge follow-up instructions completed. Discharge process discussed with the patient and all questions were answered to patient's satisfaction. Total time spent, exact 35 minutes on discharge meds reconciliation, examination, coordination of care with nurses and ancillary staff, review of imaging and blood test and discussion with the patient on follow-up instructions - Physical Exam Vitals/I&O's: Vital Signs Temp Pulse Resp BP Pulse Ox 98.1 F 63 16 133/78 H 95 01/30/20 08:12 01/30/20 08:12 01/30/20 08:12 01/30/20 08:12 01/30/20 08:12 Oxygen Flow Rate (L/min) 5 Oxygen Delivery Method Room Air Weight: 345 lb Body Mass Index (BMI) 59.2 Intake and Output for Last 24 Hours 01/28/20 01/29/20 01/30/20 23:59 23:59 23:59 Intake Total 1631.67 / 1631.67 3070 / 3070 Output Total 200 / 200 500 / 500 300 / 300 Balance 1431.67 / 1431.67 2570 / 2570 -300 / -300 General: Alert, Oriented x3, Cooperative HEENT: Atraumatic, PERRLA, EOMI, Normocephalic Oral: No Gingival or Mucosal Lesions/ Ulcerations, Dry Mucosa Neck: Supple, No JVD, Negative Carotid Bruits Lungs: Clear to auscultation, No rhonchi, No wheeze, No rales, Diminished Cardiovascular: Regular rate, Regular Rhythm, Normal S1, Normal S2, No murmurs Abdomen: Bowel Sounds Present, Soft, Non Tender Extremities: No edema, Capillary Refill Less than 3 Seconds, Edema - Left leg and foot edema improved Skin: No rashes, No breakdown Musculoskeletal: Arthritic Changes, Tenderness - Tenderness is restricted to only left great toe. Patient can walk and ambulate. Walker prescription was given. Neurological: Cranial nerves II-XII grossly intact, Deep Tendon Reflexes 2+/4 and Symmetrical, Neuro grossly intact Psych/Mental Status: Normal Affect, Appropriate Laboratory Results 01/29/20 11:10: POC Glucose 149 H 01/29/20 16:28: POC Glucose 140 H 01/29/20 21:51: POC Glucose 175 H 01/30/20 06:10: Hemoglobin A1c 5.6 01/30/20 06:10: Sodium 139, Potassium 4.0, Chloride 107, Carbon Dioxide 28.0, Anion Gap 4 L, BUN 16, Creatinine 0.61 L, Estim Creat Clear Calc 141.53, Est GFR (MDRD) Af Amer 191, Est GFR (MDRD) Non-Af 158, BUN/Creatinine Ratio 26.1 H, Glucose 108 H, Calcium 8.9, Free T4 1.19 01/30/20 06:10: WBC 10.2, RBC 4.63, Hgb 13.3, Hct 42.6, MCV 92.0, MCH 28.7, MCHC 31.2 L, RDW Std Deviation 52.3 H, RDW Coeff of Kusum 15.7 H, Plt Count 219, MPV 11.2, Immature Gran % (Auto) 0.700, Neut % (Auto) 62.5, Lymph % (Auto) 26.5, [place] % (Auto) 7.9, Eos % (Auto) 1.8, Baso % (Auto) 0.6, Absolute Neuts (auto) 6.4, Absolute Lymphs (auto) 2.70, Nucleated RBC % 0 01/30/20 06:20: POC Glucose 105 Current Medications Acetaminophen (Tylenol) 650 mg PO Q6H PRN PRN PRN Reason: Pain Score 1-10/Temp > 100.7 F Albuterol Sulfate (Ventolin Aerosols) 2.5 mg INHALATION Q2H PRN PRN PRN Reason: Shortness of Breath/Wheezing Allopurinol (Zyloprim) 300 mg PO DAILY [facility] Last Admin: 01/29/20 10:06 Dose: 300 mg Documented by: Colchicine (Colchicine) 0.6 mg PO BID [facility] Last Admin: 01/29/20 21:53 Dose: 0.6 mg Documented by: Dextrose (D50w Syringe) 0 gm IV X1 PRN; Protocol PRN Reason: Hypoglycemia Enoxaparin Sodium (Lovenox) 40 mg SC BID [facility] Last Admin: 01/29/20 21:53 Dose: 40 mg Documented by: Fluoxetine HCl (Prozac) 10 mg PO DAILY [facility] Last Admin: 01/29/20 09:58 Dose: 10 mg Documented by: Fluticasone Propionate (Flonase Nasal [place]) 2 spray NASAL DAILY [facility] Last Admin: 01/29/20 09:59 Dose: 2 spray Documented by: Glucagon () 1 mg IM .X1 PRN PRN Reason: Hypoglycemia Guaifenesin (Mucinex) 1,200 mg PO BID PRN PRN Reason: CONGESTION Sodium Chloride () 250 mls @ 15 mls/hr IV .[id number] PRN PRN Reason: Saline Flush Sodium Chloride () 250 mls @ 15 mls/hr IV .[id number] PRN PRN Reason: Additional IVPB Infusion Ibuprofen (Motrin) 400 mg PO Q4H PRN PRN PRN Reason: Pain Score 4-10/10 Last Admin: 01/30/20 06:19 Dose: 400 mg Documented by: Insulin Human Lispro (Humalog Kwikpen (Bkc)) 0 unit SC [facility]; Protocol Last Admin: 01/30/20 06:21 Dose: Not Given Documented by: Levetiracetam (Keppra Tablet) 500 mg PO BID [facility] Last Admin: 01/29/20 21:53 Dose: 500 mg Documented by: Loratadine (Claritin) 10 mg PO DAILY [facility] Last Admin: 01/29/20 09:58 Dose: 10 mg Documented by: Montelukast Sodium (Singulair) 10 mg PO DAILY [facility] Last Admin: 01/29/20 09:58 Dose: 10 mg Documented by: Morphine Sulfate () 2 mg IV Q3H PRN PRN PRN Reason: Pain Score 6-10/10 Nebivolol (Bystolic) 10 mg PO DAILY [facility] Last Admin: 01/29/20 09:59 Dose: 10 mg Documented by: Nystatin (Mycostatin Powder) 1 applic TOPICAL TID [facility]; Protocol Last Admin: 01/30/20 06:21 Dose: 1 applicatio Documented by: Ondansetron HCl (Zofran) 4 mg IV Q8H PRN PRN PRN Reason: NAUSEA/VOMITING Oxycodone HCl (Oxyir) 5 mg PO Q4H PRN PRN PRN Reason: Pain Score 4-5/10 Last Admin: 01/29/20 06:23 Dose: 5 mg Documented by: Pantoprazole Sodium (Protonix) 40 mg PO DAILY [facility] Last Admin: 01/29/20 09:57 Dose: 40 mg Documented by: Prednisone () 40 mg PO DAILY@0800 [facility] Last Admin: 01/30/20 08:20 Dose: 40 mg Documented by: Psyllium Hydrophilic Mucilloid (Metamucil) 1 packet PO DAILY PRN PRN PRN Reason: Constipation Senna/Docusate Sodium (Senokot-S, Sherice-Colace) 2 tablet PO BID [facility] Last Admin: 01/30/20 08:18 Dose: Not Given Documented by: Sodium Chloride () 10 - 40 ml IV UD PRN PRN Reason: SALINE FLUSH Discharge Activity: May Not Drive Call your doctor if you observe: Fever of 101 or Higher, Coldness, Increased Pain, Numbness or Tingling, Inability to urinate, Inability to have a bowel movement, Shortness of breath, Dizziness, Fainting spells, Swelling in the ankles, Chest pain, Prolonged hiccoughing, Calf discomfort, Uncontrolled pain Home Medications: Medications to take at Discharge Allopurinol [Zyloprim] 300 mg PO DAILY 06/09/15 Nebivolol HCl [Bystolic (Beta Leonora)] 10 mg PO DAILY 06/09/15 Montelukast [Singulair] 10 mg PO DAILY 01/26/16 Albuterol Sulfate [Ventolin Hfa] 18 gm IH Q4H PRN PRN 05/07/16 Budesonide/Formoterol 80-4.5 [Symbicort 80-4.5 Mcg Inhaler] 2 puff INHALATION BID 05/07/16 Guaifenesin [Mucinex] 1,000 mg PO BID PRN 01/24/17 Baclofen 20 mg PO DAILY 06/25/18 Pantoprazole Sodium [Protonix] 40 mg PO DAILY 06/25/18 Potassium 1,080 mg PO DAILY 06/25/18 fluticasone propionate 50 mcg/actuation nasal spray,suspension 2 spray INTRANASAL DAILY #48 g 03/23/19 metformin 500 mg tablet,extended release 24 hr 1,000 mg PO BID tab 03/23/19 Fluoxetine HCl 10 mg PO DAILY 01/28/20 Loratadine 10 mg PO DAILY 01/28/20 Multivitamin with Minerals [Multiple Vitamin] 1 tab PO DAILY 01/28/20 levETIRAcetam tablet [Keppra tablet] 500 mg PO BID 01/28/20 Colchicine 0.6 mg PO BID #60 tab 01/30/20 Furosemide [Lasix] 40 mg PO DAILY #0 01/30/20 Nystatin Powder [Mycostatin Powder] 1 applic TOPICAL TID #1 bottle 01/30/20 Following Prescrptions Were Given to Patient: Colchicine 0.6 mg PO BID #60 tab Transmission Status: Received by [facility]/pharmacy #[id number] Nystatin Powder [Mycostatin Powder] 1 applic TOPICAL TID #1 bottle Transmission Status: Received by [facility]/pharmacy #[id number] Primary Care Physician: Manpreet Milan MD [Primary Care Provider] - Please follow up with your Primary Care Physician in: in 1 week to increase the dose of allopurinol for gout prophylaxis Medical Necessity - Tobacco Use Smoking Status: Never smoker Meaningful Use Info Meaningful Use Diagnoses (Choose all that apply): None applicable Inpatient E&M: 92019 [facility]
[2020-01-30] MEDS: Nebivolol HCl 10 MG Tablet PO (10:10)
[2020-01-30] MEDS: Pantoprazole Sodium 40 MG Tablet PO (10:10)
[2020-01-30] MEDS: levETIRAcetam 500 MG Tablet PO (10:10)
[2020-01-30] MEDS: FLUoxetine 10 MG Capsule PO (10:10)
[2020-01-30] MEDS: Loratadine 10 MG Tablet PO (10:10)
[2020-01-30] MEDS: Allopurinol 300 MG Tablet PO (10:11)
[2020-01-30] MEDS: Montelukast 10 MG Tablet PO (10:11)
--- NOTE | 2020-01-30 10:18 | CASEMGMT ---
BEKAH MARTINEZ Note:Intro role of CM to patient and SIDDIQI form explained re: Observation status for treatment of Gout. Explained hospitalization will be paid per? insurance policy for Outpatient billing?and condition will continue to be evaluated for Inpt necessity. Also let pt know that [facility] sends paper in the billing packet with their phone number if questions arise. Discussed Pharmacy section of SIDDIQI form and self administered medication guideline.? Pt verbalizes understanding and does not have further questions. Form signed and placed in chart, copy to pt. Pt to dc to home today. Declining any HHC or PT/OT. Script for walker given to pt and he will take care of obtaining. No assist needed. Pt has HHC aides through [place] [employer]. Pt has already called to notify of dc. ANN Dunlap also updated. CHRIS GODFREY BSN CM
--- NOTE | 2020-01-30 10:27 | CASEMGMT ---
Social Work Note Pt is discharging home today. ANN placed a call to Tabitha Blackmon at [facility] and left message that pt will be discharged home today. ANN faxed discharge paperwork to Tabitha. Denisa Shepherd MANAGER MARITIME, BROMINATION EQUIPMENT OPERATOR
== END 2020-01-30 10:45 | disposition home or self-care (01) ==
LOC: ED 08:53 → MS3 09:19
PROVIDERS: Admitting Provider Internal Medicine; Emergency Provider Emergency Medicine; PCP Family Medicine; Visit Provider Internal Medicine
DX: M10.9 Gout, unspecified (principal); K21.9 Gastro-esophageal reflux disease without esophagitis; E11.9 Type 2 diabetes mellitus without complications; G47.33 Obstructive sleep apnea (adult) (pediatric); I10 Essential (primary) hypertension; G80.9 Cerebral palsy, unspecified; E66.01 Morbid (severe) obesity due to excess calories; R56.9 Unspecified convulsions; Z68.43 Body mass index [BMI] 50.0-59.9, adult; Z79.899 Other long term (current) drug therapy; Z79.51 Long term (current) use of inhaled steroids; Z79.84 Long term (current) use of oral hypoglycemic drugs; J45.40 Moderate persistent asthma, uncomplicated; Z98.2 Presence of cerebrospinal fluid drainage device
CPT/HCPCS: 36415; 73630; 80048; 80076; 82962; 83036; 83735; 84100; 84439; 84443; 84550; 85025; 96360; 96361; 96372; 97802; 99218; 99251; 99285; J7030; A4216; G0378; G0463

== ENCOUNTER 2020-04-13 09:10 | Emergency (ER) | payer MEDICARE, MEDICAID, SELFPAY ==
[2020-02-08 06:06] VITALS: BMI 59.0
[2020-04-13 09:11] VITALS: BP 155/85; PULSE 89; RESP 16; TEMP 36.9; O2SAT 93; BMI 60.0
--- NOTE | 2020-04-13 09:24 | RAD_ITS ---
STUDY: X-RAY - RIGHT FOOT CLINICAL: Male, 34 years old. right foot pain -- NKI TECHNIQUE: 3 view(s) of the foot. COMPARISON: None. FINDINGS: There is an enthesophyte involving the posterior superior calcaneus at the site of insertion of the Achilles tendon. Normal visualized subtalar, talonavicular, calcaneocuboid, tarsal and tarsometatarsal articulations. Normal metatarsi. There is degenerative arthrosis of the metatarsophalangeal joint of the hallux . Normal tibial and fibular sesamoid bones. Normal interphalangeal joint of the great toe. Normal phalanges of the great toe. Normal second through fifth metatarsophalangeal joints. Normal interphalangeal joints and phalanges of the lesser toes. The soft tissue structures are unremarkable. RAD/Foot min 3 Views IMPRESSION: No acute bone injury of the foot. Electronically Signed: Anette Bass, at 9:46 EDT Tel , Service support ,
[2020-04-13] MEDS: HYDROcodone Bitartrate/Apap 5/325 Tablet PO (09:42)
--- NOTE | 2020-04-13 09:56 | ED.DCSUM_ITS ---
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 Denies any injury or trauma. He thinks he is having a flare of his gout. 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 gout diabetes hypertension cerebral palsy Surgical History: - - Cerebral shunt secondary to hydrocephalus, tendon release Lives: Alone Smoking Status: Never smoker Alcohol: None Drugs: None - Family History Maternal Family History: Family History (Last Reviewed 02/08/20 @ 12:37 by Arlene Barrera) Father Chronic a-fib CVA (cerebral vascular accident) Mother ROBERT (obstructive sleep apnea) Breast cancer Grandfather Cancer Other Diabetes Family History: Reports: Diabetes Paternal Family History: Family History (Last Reviewed 02/08/20 @ 12:37 by Arlene Barrera) Father Chronic a-fib CVA (cerebral vascular accident) Mother ROBERT (obstructive sleep apnea) Breast cancer Grandfather Cancer Other Diabetes Family History: Reports: - - History of atrial fibrillation Sibling Family History: Family History (Last Reviewed 02/08/20 @ 12:37 by Arlene Barrera) Father Chronic a-fib CVA (cerebral vascular accident) Mother ROBERT (obstructive sleep apnea) Breast cancer Grandfather Cancer Other Diabetes Family History: Reports: Diabetes <Oliverio Jimenez - Last Filed: 04/13/20 09:57> - Family History Maternal Family History: Family History (Last Reviewed 02/08/20 @ 12:37 by Arlene Barrera) Father Chronic a-fib CVA (cerebral vascular accident) Mother ROBERT (obstructive sleep apnea) Breast cancer Grandfather Cancer Other Diabetes Paternal Family History: Family History (Last Reviewed 02/08/20 @ 12:37 by Arlene Barrera) Father Chronic a-fib CVA (cerebral vascular accident) Mother ROBERT (obstructive sleep apnea) Breast cancer Grandfather Cancer Other Diabetes Sibling Family History: Family History (Last Reviewed 02/08/20 @ 12:37 by Arlene Barrera) Father Chronic a-fib CVA (cerebral vascular accident) Mother ROBERT (obstructive sleep apnea) Breast cancer Grandfather Cancer Other Diabetes <Madhu Page - Last Filed: 04/13/20 10:23> - Allergies and Home Meds Allergies/Adverse Reactions: Allergies DUST Allergy (Uncoded 04/13/20 09:11) Other grass Allergy (Uncoded 04/13/20 09:11) PT UNSURE OF REACTION pollen Allergy (Uncoded 04/13/20 09:11) PT UNSURE OF REACTION Primary Care Physician: Manpreet Milan MD [Primary Care Provider] - Review of Systems All systems negative except as indicated General: Denies: Chills, Fever, Sweats Eyes: Denies: Visual changes - bilaterally, Diplopia ENT: Denies: Rhinorrhea, Sore throat Cardiovascular: Denies: Chest pain, Palpitations Respiratory: Denies: Dyspnea, Cough, Dyspnea on exertion Gastrointestinal: Denies: Abdominal pain, Nausea, Vomiting, Diarrhea, Melena, Hematochezia Genitourinary: Denies: Dysuria, Hematuria, Frequency Musculoskeletal: Reports: Extremity Pain. Denies: Back pain Skin: Denies: Rash, Wounds Neurological: Denies: Headache, Weakness, Numbness <Oliverio Jimenez - Last Filed: 04/13/20 09:57> Physical Exam Vital Signs/Narrative: Vital Signs Temp Pulse Resp BP Pulse Ox 04/13/20 09:11 98.5 F 89 16 155/85 H 93 Inital Vital Signs reviewed: Yes - Extremity Exam Right Foot: - - Patient has a normal inspection of the right foot. There is no evidence of redness there is no swelling no rash no signs of trauma. He is got some mild bony tenderness at the base of his first MTP. He has normal capillary refill and sensation of all 5 toes. He has normal active range of motion of all 5 toes. There is no other bony tenderness of his foot or ankle. DP and PT pulses are normal. There is no asymmetrical leg swelling. General: Well nourished, Well developed Head: Normocephalic, Atraumatic Eyes: Perrl, EOMI ENT: No Trauma, Moist Mucous Membranes Neck: Nontender, Full ROM Cardiovascular: Regular rate, Regular rhythm, No murmurs Respiratory: No distress, CTA bilaterally, Chest nontender Abdomen: Soft, Nontender, Nondistended, Normal bowel sounds Back: Nontender Skin: Normal color, No rash Neurological: Alert, Oriented x3, Cranial nerves II-XII grossly intact, Normal Strength, Normal Sensation Psychological: Normal affect <Oliverio Jimenez - Last Filed: 04/13/20 09:57> Vital Signs/Narrative: Vital Signs Temp Pulse Resp BP Pulse Ox 04/13/20 09:11 98.5 F 89 16 155/85 H 93 <Madhu Page - Last Filed: 04/13/20 10:23> Diagnostic/Tx/Re-eval Impressions Foot X-Ray 04/13/20 09:24 IMPRESSION: No acute bone injury of the foot. Electronically Signed: Anette Bass, at 9:46 EDT Tel , Service support , 04/13/20 09:24 Xray Foot [Foot min 3 Views] [RAD] Stat - Medical Decision Making Patient was given 1 [place] for pain. X-ray is unremarkable. No acute findings are noted by radiology. Patient will be given a short course of anti-inflammatories. I discussed with him it could be an early flare of his gout but at this time there is no significant redness warmth or swelling. He does have a walker at home as he was concerned about getting around at his home. We will give him a postoperative shoe as well. He will be discharged <Oliverio Jimenez - Last Filed: 04/13/20 09:57> - Medical Decision Making I performed a history and physical examination of the patient and discussed management plan with the physician executive personal assistant. I reviewed the physician executive personal assistant's note and agree with the documented findings and plan of care. Diagnosed with gout in January. Patient states that his great toe is hurting him and was unable to walk. He has a walker that he can use at home but did not use it today. He called the ambulance. The toe itself is not red or swollen. He complains of tenderness to palpation. X-rays were negative. This may be early gout but at the time other than pain there is no outward signs of it. We can place him on naproxen would recommend using the walker to get around. But at this time I do not see a need for hospitalization. 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
[2020-04-13 10:28] VITALS: BP 151/62; PULSE 96; RESP 18; O2SAT 94
== END 2020-04-13 10:29 | disposition home or self-care (01) ==
PROVIDERS: Emergency Provider Physician Assistant Medical; PCP Family Medicine
DX: M79.671 Pain in right foot (principal); G80.9 Cerebral palsy, unspecified; E11.9 Type 2 diabetes mellitus without complications; E66.01 Morbid (severe) obesity due to excess calories; M10.9 Gout, unspecified; Z79.84 Long term (current) use of oral hypoglycemic drugs; Z98.2 Presence of cerebrospinal fluid drainage device; Z79.899 Other long term (current) drug therapy
CPT/HCPCS: 73630; 99285

== ENCOUNTER 2020-04-13 20:50 | Inpatient (IN) | payer MEDICARE, MEDICAID, SELFPAY ==
[2020-04-13 09:11] VITALS: BMI 60.0
[2020-04-13 20:50] VITALS: PULSE 92; RESP 16; O2SAT 93
[2020-04-13 20:51] VITALS: BP 157/119; PULSE 96; RESP 22; TEMP 36.8; O2SAT 92; BMI 59.8
--- NOTE | 2020-04-13 22:32 | ED.VISSUMM ---
- ER Visit Summary Date of Service: 04/13/20 Chief Complaint: Right foot pain History of Present Illness: The patient is a [address] Manpreet Milan and Dr. Deng. He reports that he has a history of gout in his right foot. He has pain that began again yesterday after he was walking more than usual. States that he is wearing tennis shoes and did not think it would cause a problem. He denies any other trauma. No fall or MVA. Describes a sharp pain in his foot that is 10 out of 10 in severity. Is worsened by walking and movement. Is taking Tylenol and Aleve without relief. He reports that the pain is so severe that he cannot walk well. Patient reports that at 9:00 this evening he fell while using his walker. He denies any blow to the head or loss of consciousness. Is not on anticoagulants. He denies any neck, back, wrist, shoulder, or hip pain. On review of systems patient denies a chronic cough is unchanged. He denies any constitutional symptoms. No fever, chills, nausea, or vomiting. Physical Examination: Vitals: Stable. Afebrile. General: Well-nourished and well-developed. Head: Normocephalic atraumatic. Neck: Supple, no lymphadenopathy. No JVD. Nontender. Cardiovascular: Regular rate and rhythm. No murmurs. Respiratory: No respiratory distress. Clear to auscultation bilaterally. Abdominal: Soft, nontender, nondistended, normal bowel sounds. No guarding, rebound, or peritoneal signs. Back: Nontender. Extremities: Severe tenderness palpation over the right first MTP joint. Mild tenderness palpation just distal to his left ankle. There is minimal erythema in both these areas. There is no induration or fluctuance. He has no pain with short arc movements of his ankle. He has a 2+ dorsalis pedis pulse bilaterally. Skin: Normal color, no rash. Neurologic: Alert and oriented ?3. Cranial nerves II through XII are intact. Normal strength and sensation. Psych: Normal affect. Test Results: Patient had an x-ray of this foot done earlier today that was normal. This was not repeated. He had a CBC that shows a white count of 12.2 with 17 lymphocytes. Chem-7 shows a glucose 133 and calcium of 8.4. His uric acid is 5.2. Emergency Department Course and Treatment: Patient was given a dose of morphine IM and prednisone p.o. He was placed in a walking boot. He attempted to ambulate and was unable to walk. Treatment Plan: Patient was discussed with Dr. Carr. He was given a dose of Ancef IV and admitted to the hospital for further evaluation and treatment. Disposition: Admitted in stable condition. Impression: 1. Right foot pain. 2. Inability to ambulate. ED Disposition - Plan for ED Patient:
[2020-04-13] MEDS: predniSONE 20 MG Tablet 40 MG PO (22:33)
[2020-04-13] MEDS: morphine 8 MG/ML Syringe IM (22:33)
--- NOTE | 2020-04-13 23:12 | PCM.HP.STD ---
Problem List (1) Exacerbation of gout Status: Acute (2) STERN (dyspnea on exertion) Status: Chronic (3) GERD (gastroesophageal reflux disease) Status: Chronic (4) Benign hypertension Status: Chronic (5) Obstructive sleep apnea Status: Chronic (6) History of cerebral palsy Status: Chronic (7) Type II diabetes mellitus Status: Chronic (8) Gout Status: Chronic (9) Bronchial asthma Status: Chronic Qualifiers: Asthma severity: moderate Asthma persistence: persistent Asthma complication type: uncomplicated Qualified Code(s): J45.40 - Moderate persistent asthma, uncomplicated (10) Super obesity Status: Chronic (11) Vertigo Status: Chronic (12) S/P PRIMARY GRADE TEACHER shunt Status: Chronic History of Present Illness Date of Admission: 04/13/20 Chief Complaint: RIGHT FOOT PAIN The patient is a 34 year old M significant history of morbid obesity; gouty arthritis; type 2 diabetes; seizure disorder and obstructive sleep apnea on CPAP who presents emergency department with right foot pain x2 days. His pain is excruciating and sharp. His pain is aggravated by moving. Morphine given at emergency department gave him some relief from pain. Associated with symptoms is swelling; mild erythema and mild increased warmth in his right foot. On the same day of presentation he was at emergency department 2 times. On the first time he was prescribed NSAIDs and was given a boot and sent home. However reportedly he continued to have difficulty in bearing weight on his right foot; and also he fell so he came back to emergency department. On the second time a decision was made to discharge patient. However patient reported that he lives by himself and he would not be able to take care of himself when discharged. A decision was then made to admit him. Past Medical History Past Medical History (Chronic Problems): Chronic Problems (Last Reviewed 04/14/20 @ 01:[address] Javy Carr MD) STERN (dyspnea on exertion) (Chronic) GERD (gastroesophageal reflux disease) (Chronic) Benign hypertension (Chronic) Obstructive sleep apnea (Chronic) History of cerebral palsy (Chronic) Type II diabetes mellitus (Chronic) Gout (Chronic) Bronchial asthma (Chronic) Super obesity (Chronic) Vertigo (Chronic) S/P PRIMARY GRADE TEACHER shunt (Chronic) Medical History: Medical History (Last Reviewed 04/14/20 @ 06:[address] Javy Carr MD) GERD (gastroesophageal reflux disease) (Chronic) K21.9 Chest pain (Inactive) R07.9 Benign hypertension (Chronic) I10 Obstructive sleep apnea (Chronic) G47.33 History of cerebral palsy (Chronic) Z86.69 Type II diabetes mellitus (Chronic) E11.9 Gout (Chronic) M10.9 Bronchial asthma (Chronic) J45.909 Super obesity (Chronic) E66.9 Vertigo (Chronic) R42 Depression F32.9 History of bronchitis Z87.09 History of pneumonia Z87.01 Hypertension I10 Seizure disorder G40.909 Allergies DUST Allergy (Uncoded 04/13/20 20:56) Other grass Allergy (Uncoded 04/13/20 20:56) PT UNSURE OF REACTION pollen Allergy (Uncoded 04/13/20 20:56) PT UNSURE OF REACTION Home Medications: Ambulatory Orders Medication Instructions Recorded Allopurinol [Zyloprim] 300 mg PO DAILY 06/09/15 Nebivolol HCl [Bystolic (Beta 10 mg PO DAILY 06/09/15 Leonora)] Montelukast [Singulair] 10 mg PO DAILY 01/26/16 Albuterol Sulfate [Ventolin Hfa] 18 gm IH Q4H PRN PRN 05/07/16 Budesonide/Formoterol 80-4.5 2 puff INHALATION BID 05/07/16 [Symbicort 80-4.5 Mcg Inhaler] Guaifenesin [Mucinex] 1,000 mg PO BID PRN 01/24/17 Baclofen 20 mg PO DAILY 06/25/18 Pantoprazole Sodium [Protonix] 40 mg PO DAILY 06/25/18 Potassium 1,080 mg PO DAILY 06/25/18 fluticasone propionate 50 2 spray INTRANASAL DAILY #48 g 03/23/19 mcg/actuation nasal spray,suspension metformin 500 mg tablet,extended 1,000 mg PO BID tab 03/23/19 release 24 hr Fluoxetine HCl 10 mg PO DAILY 01/28/20 Loratadine 10 mg PO DAILY 01/28/20 Multivitamin with Minerals 1 tab PO DAILY 01/28/20 [Multiple Vitamin] levETIRAcetam tablet [Keppra 500 mg PO BID 01/28/20 tablet] Furosemide [Lasix] 40 mg PO DAILY #0 01/30/20 Nystatin Powder [Mycostatin Powder] 1 applic TOPICAL TID #1 bottle 01/30/20 Naproxen [Naprosyn] 500 mg PO BID #14 tab 04/13/20 Surgical History: Surgical History (Last Reviewed 04/14/20 @ 01:[address] Javy Carr MD) S/P PRIMARY GRADE TEACHER shunt (Chronic) H/O eye surgery Z98.890 H/O hernia repair Z98.890, Z87.19 Surgical History: - - Cerebral shunt secondary to hydrocephalus, tendon release Psychiatric History: No pertinent psych hx Smoking Status: Never smoker - *Family History Maternal Family History: Family History (Last Reviewed 04/14/20 @ 01:[address] Javy Carr MD) Father Chronic a-fib CVA (cerebral vascular accident) Mother ROBERT (obstructive sleep apnea) Breast cancer Grandfather Cancer Other Diabetes History Items: Diabetes Paternal Family History: Family History (Last Reviewed 04/14/20 @ 01:[address] Javy Carr MD) Father Chronic a-fib CVA (cerebral vascular accident) Mother ROBERT (obstructive sleep apnea) Breast cancer Grandfather Cancer Other Diabetes History Items: - - History of atrial fibrillation Sibling Family History: Family History (Last Reviewed 04/14/20 @ 01:[address] Javy Carr MD) Father Chronic a-fib CVA (cerebral vascular accident) Mother ROBERT (obstructive sleep apnea) Breast cancer Grandfather Cancer Other Diabetes History Items: Diabetes Review of Systems Constitutional: Denies: Chills, Fever, Weight Change HEENT: Denies: Head Aches, Sinus Congestion, Sinus Drainage Cardiovascular: Denies: Chest Pain, Palpitations Respiratory: Denies: Cough, Shortness of breath at rest, Sputum production Gastrointestinal: Denies: Abdominal Pain, Nausea, Vomiting Genitourinary: Denies: Dysuria Musculoskeletal: Reports: Foot Pain. Denies: Leg Pain Skin: Reports: Skin Changes - Erythema of right foot. Denies: Rash, Wounds Neurological: Denies: Numbness, Tingling, Focal weakness Psychiatric: Denies: Anxiety, Depression, Homicidal Ideations, Suicidal Ideations Hematologic/ Lymphatic: Denies: Easy Bruising, Easy Bleeding VTE Information - Inpt Only VTE Present on Admission: No VTE Mechan Device Prophylaxis: None VTE Pharm Prophylaxis ordered?: Yes - Physical Exam Vitals/I&O's: Vital Signs Temp Pulse Resp BP Pulse Ox 98.3 F 96 22 H 157/119 H 92 04/13/20 20:51 04/13/20 20:51 04/13/20 20:51 04/13/20 20:51 04/13/20 20:51 Oxygen Delivery Method Room Air Weight: 157.941 kg Body Mass Index (BMI) 59.8 General: Alert, Oriented x3, Cooperative HEENT: Atraumatic, PERRLA, EOMI, Normocephalic Neck: Supple, No JVD, Negative Carotid Bruits Lungs: Clear to auscultation, Normal air movement Cardiovascular: Regular rate, No murmurs Abdomen: Bowel Sounds Present, Soft, Non Tender Extremities: Edema, Tenderness - Right foot Skin: No rashes, No breakdown, - - Erythema of right foot; mild increase in warmth of right foot. Musculoskeletal: Tenderness - Right foot Neurological: Cranial nerves II-XII grossly intact Psych/Mental Status: Normal Affect, Appropriate Assessment/Plan All Active Problems (Last Reviewed 04/14/20 @ 06:[address] Javy Carr MD) Exacerbation of gout (Acute) The patient is a 34 year old M significant history of morbid obesity; gouty arthritis; type 2 diabetes; seizure disorder and obstructive sleep apnea on CPAP who presents emergency department with right foot pain x2 days; swelling of same extremity; mild increase in warmth and mild erythema of the same foot. Acute flare of gouty arthritis Prednisone was ordered at emergency department and continued Received morphine IV at emergency department. We will continue patient on morphine IV as needed. IV antiemetics PRN and bowel protocol in place. In the setting of gout will hold home Lasix. Allopurinol continued Differential Diagnoses include cellulitis. Discussed with emergent department doctor to give cefazolin. Cefazolin continued. Of note x-ray of foot in first ED visit in same day 04/13/2020 did not show any fracture. Obstructive sleep apnea CPAP continued Diabetes mellitus Patient with mild hyperglycemia on presentation Hold metformin in the hospital setting. Accu-Chek with correction scale insulin ordered. Calorie controlled diet Super morbid obesity: BMI 59.8. Lifestyle modification discussed. Complicates care. Asthma Montelukast continued On ICS?laba. Therapeutic interchange with a Princess and ICS. Seizure disorder Keppra continued. Depression/anxiety Fluoxetine continued. DVT prophylaxis Subcutaneous Lovenox adjusted for weight Inpatient E&M: 11971 Init Hosp L3
[2020-04-14 00:02] LABS: Absolute Lymphocyte Count 2.05 X10^3/uL (0.83-4.51); Absolute Neutrophil Count 8.4 X10^3/uL (2.0-7.7); Basophil# 0.07 X10^3/uL; Basophil% 0.6 % (0-1); Eosinophil# 0.38 X10^3/uL; Eosinophils% 3.1 % (0-5); Hematocrit 42.5 % (40-54); Hemoglobin 13.7 g/dL (13.0-16.5); Lymphocyte # 2.05 X10^3/ul (4.0); Lymphocyte % 16.9 % (19-41); Mean Corp Hgb Conc 32.2 g/dL (32-36); Mean Corpuscular Hgb 29.1 pg (27.0-32.0); Mean Corpuscular Volume 90.4 fL (80-94); Mean Platelet Vol. 11.6 fl (6.2-12.0); Monocyte# 1.17 X10^3/uL; Monocyte% 9.6 % (0-10); NRBC Flagged by Analyzer 0 % (0-5); Neutrophil # 8.36 X10^3/uL (2.7-7.7); Neutrophil % 68.8 % (47-70); Platelet Count 194 K/mm3 (150-450); RBC Distribution Width CV 15.6 % (11.6-14.6); RBC Distribution Width SD 50.8 fl (35.1-43.9); White Blood Count 12.2 K/mm3 (4.4-11.0)
[2020-04-14 00:24] LABS: Anion Gap 4 (5-15); BUN 13 mg/dL (7-18); BUN/Creat Ratio 18.3 RATIO (10-20); Calcium,Total 8.4 mg/dL (8.5-10.1); Chloride 106 mmol/L (98-107); Creatinine, Serum 0.71 mg/dL (0.70-1.30); EST Glomerular Filtration Rate 134 mL/min (>60); Est Glom Filt Rate - Afr Amer 162 mL/min (>60); Glucose 133 mg/dL (74-106); Sodium Level 139 mmol/L (136-145); Uric Acid 5.2 mg/dL (3.5-7.2)
[2020-04-14 02:26] VITALS: BMI 59.4
[2020-04-14 02:27] VITALS: BP 147/79; PULSE 88; RESP 24; TEMP 37.3; O2SAT 92
[2020-04-14] MEDS: 0.9% Saline Lock 10 ML Syringe IV (03:11)
[2020-04-14] MEDS: Cefazolin 2 GM in 0.9% Normal Saline 100 ML IV (03:13)
[2020-04-14] MEDS: Insulin Lispro 100 UNIT/ML INSULN.PEN SC ×2 (06:34→11:33)
[2020-04-14] MEDS: Nystatin Powder 15gm Bottle 1 APPLIC TOPICAL (06:35)
[2020-04-14 06:55] LABS: Bedside Glucose 200 mg/dL (70-110)
[2020-04-14 07:06] VITALS: PULSE 82; RESP 20
[2020-04-14] MEDS: Albuterol 2.5 MG/3 ML VIAL.NEB. INHALATION (07:06)
[2020-04-14 07:29] LABS: Absolute Lymphocyte Count 1.42 X10^3/uL (0.83-4.51); Absolute Neutrophil Count 10.7 X10^3/uL (2.0-7.7); Basophil# 0.06 X10^3/uL; Basophil% 0.5 % (0-1); Eosinophil# 0.04 X10^3/uL; Eosinophils% 0.3 % (0-5); Hemoglobin 14.6 g/dL (13.0-16.5); Lymphocyte # 1.42 X10^3/ul (4.0); Mean Corp Hgb Conc 31.7 g/dL (32-36); Mean Corpuscular Hgb 28.9 pg (27.0-32.0); Mean Corpuscular Volume 90.9 fL (80-94); Monocyte% 3.9 % (0-10); NRBC Flagged by Analyzer 0 % (0-5); Neutrophil # 10.67 X10^3/uL (2.7-7.7); Platelet Count 203 K/mm3 (150-450); RBC Distribution Width CV 16.1 % (11.6-14.6); RBC Distribution Width SD 52.3 fl (35.1-43.9); Red Blood Count 5.06 M/mm3 (4.6-6.2); White Blood Count 12.9 K/mm3 (4.4-11.0)
[2020-04-14 07:45] LABS: Anion Gap 6 (5-15); BUN 14 mg/dL (7-18); BUN/Creat Ratio 18.5 RATIO (10-20); Calcium,Total 8.6 mg/dL (8.5-10.1); Chloride 104 mmol/L (98-107); Creatinine, Serum 0.76 mg/dL (0.70-1.30); EST Glomerular Filtration Rate 124 mL/min (>60); Est Glom Filt Rate - Afr Amer 150 mL/min (>60); Glucose 199 mg/dL (74-106); Potassium 4.4 mmol/L (3.5-5.1); Sodium Level 136 mmol/L (136-145)
[2020-04-14] MEDS: Acetaminophen 325 MG Tablet 650 MG PO (07:53)
[2020-04-14] MEDS: Allopurinol 300 MG Tablet PO (07:54)
[2020-04-14] MEDS: Multivitamins,Ther W-Minerals Tablet 1 TABLET PO (07:54)
[2020-04-14] MEDS: predniSONE 20 MG Tablet 40 MG PO (07:54)
[2020-04-14 08:04] VITALS: BP 145/88; PULSE 86; RESP 16; TEMP 36.6; O2SAT 95
[2020-04-14] MEDS: Glucerna Shake 120 ML LIQUID PO (10:05)
[2020-04-14] MEDS: Baclofen 10 MG Tablet 20 MG PO (10:10)
[2020-04-14] MEDS: Loratadine 10 MG Tablet PO (10:10)
[2020-04-14] MEDS: Pantoprazole Sodium 40 MG Tablet PO (10:10)
[2020-04-14] MEDS: FLUoxetine 10 MG Capsule PO (10:10)
[2020-04-14] MEDS: levETIRAcetam 500 MG Tablet PO (10:10)
[2020-04-14] MEDS: Nebivolol HCl 10 MG Tablet PO (10:10)
[2020-04-14] MEDS: Enoxaparin 40 MG/0.4 ML Syringe SC (10:10)
[2020-04-14] MEDS: Montelukast 10 MG Tablet PO (10:10)
--- NOTE | 2020-04-14 10:34 | PCM.DC ---
You will use the following diet at home:: Calorie/Carbohydrate Controlled (specify 1200, 1400, etc) - 1800 kiana / day Your food should be the consistency of: Regular Your liquids should be the consistency of: Regular/Thin Discharge Activity: Return to Normal Activity Instructions: ED ARTHRITIS Gout Additional Instructions: Do not resume allopurinol until you complete the colchicine prescription. Do not take over the counter NSAIDS while using colchicine. Allergies/Adverse Reactions: Allergies DUST Allergy (Uncoded 04/14/20 02:30) SNEEZING, COUGHING grass Allergy (Uncoded 04/14/20 02:30) SNEEZING, COUGHING pollen Allergy (Uncoded 04/14/20 02:30) SNEEZING, COUGHING Medications to take at Discharge Allopurinol [Zyloprim] 300 mg PO DAILY 06/09/15 Nebivolol HCl [Bystolic (Beta Leonora)] 10 mg PO DAILY 06/09/15 Montelukast [Singulair] 10 mg PO DAILY 01/26/16 Albuterol Sulfate [Ventolin Hfa] 18 gm IH Q4H PRN PRN 05/07/16 Budesonide/Formoterol 80-4.5 [Symbicort 80-4.5 Mcg Inhaler] 2 puff INHALATION BID 05/07/16 Guaifenesin [Mucinex] 1,000 mg PO BID PRN 01/24/17 Baclofen 20 mg PO DAILY 06/25/18 Pantoprazole Sodium [Protonix] 40 mg PO DAILY 06/25/18 Potassium 1,080 mg PO DAILY 06/25/18 fluticasone propionate 50 mcg/actuation nasal spray,suspension 2 spray INTRANASAL DAILY #48 g 03/23/19 metformin 500 mg tablet,extended release 24 hr 1,000 mg PO BID tab 03/23/19 Fluoxetine HCl 10 mg PO DAILY 01/28/20 Loratadine 10 mg PO DAILY 01/28/20 Multivitamin with Minerals [Multiple Vitamin] 1 tab PO DAILY 01/28/20 levETIRAcetam tablet [Keppra tablet] 500 mg PO BID 01/28/20 Furosemide [Lasix] 40 mg PO DAILY #0 01/30/20 Nystatin Powder [Mycostatin Powder] 1 applic TOPICAL TID #1 bottle 01/30/20 Acetaminophen [Tylenol Tablet] 650 mg PO Q6H PRN PRN tablet 04/14/20 Colchicine 0.6 mg PO DAILY #7 cap 04/14/20 Oxycodone [Oxyir] 5 mg PO Q6H PRN PRN 2 Days #8 tablet 04/14/20 The following prescriptions were given: Colchicine 0.6 mg PO DAILY #7 cap Transmission Status: Pending to [facility] Oxycodone [Oxyir] 5 mg PO Q6H PRN PRN 2 Days #8 tablet PRN Reason: Pain Score 6-10/10 Transmission Status: Sent to [facility] Primary Care Physician: Ryan Deng DPM [STAFF PHYSICIAN] - 3-5 Days if not improving Please follow up with your Primary Care Physician in: 2 weeks Test Results: Test results from this visit will be discussed in further detail at your follow-up appointment, if applicable. Please Follow Up With: PCP When: 1-2 weeks Proposed Discharge Date: 04/14/20
[2020-04-14 11:45] LABS: Bedside Glucose 257 mg/dL (70-110)
--- NOTE | 2020-04-14 11:52 | DS.PCM_ITS ---
<Petar Herman - Last Filed: 04/14/20 11:52> Discharge Date and Diagnosis Date of Admission: 04/13/20 Date of Discharge: 04/14/20 - Primary Discharge Diagnosis Acute Problems: Gout flare right foot, 1st great toe and right lateral aspect - Secondary Discharge Diagnosis Chronic Problems: Chronic Problems (Last Reviewed 04/14/20 @ 01:[address] Javy Carr MD) STERN (dyspnea on exertion) (Chronic) GERD (gastroesophageal reflux disease) (Chronic) Benign hypertension (Chronic) Obstructive sleep apnea (Chronic) History of cerebral palsy (Chronic) Type II diabetes mellitus (Chronic) Gout (Chronic) Bronchial asthma (Chronic) Super obesity (Chronic) Vertigo (Chronic) S/P QUALITY TESTER shunt (Chronic) Hospital Course and Treatment Operations: None Procedures: None Summary of Care Provided: Hospital course: The patient is a 34 year old M with pmhx as above notably recurrent gout who presented to the ER with c/o severe right foot pain from his gout. He had been treated as an outpatient with NSAIDs and had no significant improvement. He had worsening pain and inability to ambulate due to pain. He was found to have mild leukocytosis, no pain, and swollen and tender right great toe c/w gout. He was admitted and placed on prednisone and morphine. The following day he had mild erythema, significant improvement in pain, and was able to ambulate in the room with a walker. He was transitioned to colchicine therapy, as we were concerned about steroid use with his underlying diabetes. He was instructed to hold allopurinol until he completes the colchicine course. He was discharged home in stable condition and should follow up wit his PCP in 2 weeks and with his big data developer if no improvement. This patient was seen by Petar Herman PA-C under the supervision of Doctor Araujo. [] - Physical Exam Vitals/I&O's: Vital Signs Temp Pulse Resp BP Pulse Ox 97.8 F 86 16 145/88 H 95 04/14/20 08:04 04/14/20 08:04 04/14/20 08:04 04/14/20 08:04 04/14/20 08:04 Oxygen Delivery Method Room Air Weight: 346 lb 2.012 oz Body Mass Index (BMI) 59.4 Intake and Output for Last 24 Hours 04/12/20 04/13/20 04/14/20 23:59 23:59 23:59 Intake Total 310 / 310 Balance 310 / 310 General: Alert, Oriented x3, Cooperative HEENT: Atraumatic, PERRLA, EOMI, Normocephalic Neck: Supple, No JVD, Negative Carotid Bruits Lungs: Clear to auscultation, Normal air movement Cardiovascular: Regular rate, No murmurs Abdomen: Bowel Sounds Present, Soft, Non Tender, Obese Extremities: No edema, Capillary Refill Less than 3 Seconds Skin: No rashes, No breakdown Musculoskeletal: No Tenderness to Palpation of Joints or Extremities, - - ROM intact. mild eryhtema right great toe. mild tenderness to palpation. not hot. no lymphangitis. DP/PT Pulses 2+/= Neurological: Cranial nerves II-XII grossly intact Psych/Mental Status: Normal Affect, Appropriate, Alert and oriented to time, place, person, mood and affect Laboratory Results 04/13/20 23:50: WBC 12.2 H, RBC 4.70, Hgb 13.7, Hct 42.5, MCV 90.4, MCH 29.1, MCHC 32.2, RDW Std Deviation 50.8 H, RDW Coeff of Kusum 15.6 H, Plt Count 194, MPV 11.6, Immature Gran % (Auto) 1.000 H, Neut % (Auto) 68.8, Lymph % (Auto) 16.9 L , [place] % (Auto) 9.6, Eos % (Auto) 3.1, Baso % (Auto) 0.6, Absolute Neuts (auto) 8.4 H, Absolute Lymphs (auto) 2.05, Nucleated RBC % 0 04/13/20 23:50: Sodium 139, Potassium 4.0, Chloride 106, Carbon Dioxide 29.0, Anion Gap 4 L, BUN 13, Creatinine 0.71, Estim Creat Clear Calc 121.60, Est GFR (MDRD) Af Amer 162, Est GFR (MDRD) Non-Af 134, BUN/Creatinine Ratio 18.3, Glucose 133 H, Uric Acid 5.2, Calcium 8.4 L 04/14/20 06:30: POC Glucose 200 H 04/14/20 06:40: WBC 12.9 H, RBC 5.06, Hgb 14.6, Hct 46.0, MCV 90.9, MCH 28.9, MCHC 31.7 L, RDW Std Deviation 52.3 H, RDW Coeff of Kusum 16.1 H, Plt Count 203, MPV 12.0, Immature Gran % (Auto) 1.300 H, Neut % (Auto) 83.0 H, Lymph % (Auto) 11.0 L, [place] % (Auto) 3.9, Eos % (Auto) 0.3, Baso % (Auto) 0.5, Absolute Neuts (auto) 10.7 H, Absolute Lymphs (auto) 1.42, Nucleated RBC % 0 04/14/20 06:40: Sodium 136, Potassium 4.4, Chloride 104, Carbon Dioxide 26.0, Anion Gap 6, BUN 14, Creatinine 0.76, Estim Creat Clear Calc 113.60, Est GFR (MDRD) Af Amer 150, Est GFR (MDRD) Non-Af 124, BUN/Creatinine Ratio 18.5, Glucose 199 H, Calcium 8.6 04/14/20 11:31: POC Glucose 257 H Current Medications Acetaminophen (Tylenol) 650 mg PO Q6H PRN PRN PRN Reason: Pain Score 1-10/Temp > 100.7 F Last Admin: 04/14/20 07:53 Dose: 650 mg Documented by: Albuterol Sulfate (Ventolin Aerosols) 2.5 mg INHALATION Q2H PRN PRN PRN Reason: SOB &/OR WHEEZING Albuterol Sulfate (Ventolin Aerosols) 2.5 mg INHALATION Q6HWA.RT [facility] Last Admin: 04/14/20 07:06 Dose: 2.5 mg Documented by: Baclofen (Lioresal) 20 mg PO DAILY [facility] Last Admin: 04/14/20 10:10 Dose: 20 mg Documented by: Dextrose (D50w Syringe) 0 gm IV X1 PRN; Protocol PRN Reason: Hypoglycemia Enoxaparin Sodium (Lovenox) 40 mg SC BID [facility] Last Admin: 04/14/20 10:10 Dose: 40 mg Documented by: Fluoxetine HCl (Prozac) 10 mg PO DAILY [facility] Last Admin: 04/14/20 10:10 Dose: 10 mg Documented by: Fluticasone Propionate (Flonase Nasal [place]) 2 spray NASAL DAILY [facility] Last Admin: 04/14/20 10:11 Dose: Not Given Documented by: Glucagon () 1 mg IM .X1 PRN PRN Reason: Hypoglycemia Guaifenesin (Mucinex) 1,200 mg PO BID PRN PRN PRN Reason: CONGESTION Insulin Human Lispro (Humalog Kwikpen (Bkc)) 0 unit SC [facility]; Protocol Last Admin: 04/14/20 11:33 Dose: 3 u Documented by: Levetiracetam (Keppra Tablet) 500 mg PO BID [facility] Last Admin: 04/14/20 10:10 Dose: 500 mg Documented by: Loratadine (Claritin) 10 mg PO DAILY [facility] Last Admin: 04/14/20 10:10 Dose: 10 mg Documented by: Montelukast Sodium (Singulair) 10 mg PO DAILY [facility] Last Admin: 04/14/20 10:10 Dose: 10 mg Documented by: Multivitamins/Minerals ([facility]ivitamin With Minerals (Bkc)) [facility] Last Admin: 04/14/20 07:54 Dose: 1 tablet Documented by: Nebivolol (Bystolic) 10 mg PO DAILY [facility] Last Admin: 04/14/20 10:10 Dose: 10 mg Documented by: Nutritional Formula (Lactose Free) (Glucerna Shake) 120 ml PO 4X/DAY [facility] Last Admin: 04/14/20 10:05 Dose: 5 ml Documented by: Nystatin (Mycostatin Powder) 1 applic TOPICAL TID [facility]; Protocol Last Admin: 04/14/20 06:35 Dose: 1 applicatio Documented by: Ondansetron HCl (Zofran) 4 mg IV Q8H PRN PRN PRN Reason: NAUSEA/VOMITING Pantoprazole Sodium (Protonix) 40 mg PO DAILY [facility] Last Admin: 04/14/20 10:10 Dose: 40 mg Documented by: Senna/Docusate Sodium (Senokot-S, Sherice-Colace) 2 tablet PO BID PRN PRN PRN Reason: Constipation Sodium Chloride () 10 - 40 ml IV UD PRN PRN Reason: SALINE FLUSH Last Admin: 04/14/20 03:11 Dose: 10 ml Documented by: Discharge Diet: 1800 Calorie Control Diet Discharge Activity: Return to Normal Activity Home Medications: Medications to take at Discharge Allopurinol [Zyloprim] 300 mg PO DAILY 06/09/15 Nebivolol HCl [Bystolic (Beta Leonora)] 10 mg PO DAILY 06/09/15 Montelukast [Singulair] 10 mg PO DAILY 01/26/16 Albuterol Sulfate [Ventolin Hfa] 18 gm IH Q4H PRN PRN 05/07/16 Budesonide/Formoterol 80-4.5 [Symbicort 80-4.5 Mcg Inhaler] 2 puff INHALATION BID 05/07/16 Guaifenesin [Mucinex] 1,000 mg PO BID PRN 01/24/17 Baclofen 20 mg PO DAILY 06/25/18 Pantoprazole Sodium [Protonix] 40 mg PO DAILY 06/25/18 Potassium 1,080 mg PO DAILY 06/25/18 fluticasone propionate 50 mcg/actuation nasal spray,suspension 2 spray INTRANAS AL DAILY #48 g 03/23/19 metformin 500 mg tablet,extended release 24 hr 1,000 mg PO BID tab 03/23/19 Fluoxetine HCl 10 mg PO DAILY 01/28/20 Loratadine 10 mg PO DAILY 01/28/20 Multivitamin with Minerals [Multiple Vitamin] 1 tab PO DAILY 01/28/20 levETIRAcetam tablet [Keppra tablet] 500 mg PO BID 01/28/20 Furosemide [Lasix] 40 mg PO DAILY #0 01/30/20 Nystatin Powder [Mycostatin Powder] 1 applic TOPICAL TID #1 bottle 01/30/20 Acetaminophen [Tylenol Tablet] 650 mg PO Q6H PRN PRN tab 04/14/20 Colchicine 0.6 mg PO DAILY #7 cap 04/14/20 Oxycodone [Oxyir] 5 mg PO Q6H PRN PRN 2 Days #8 tab 04/14/20 Following Prescriptions Were Given to Patient: Colchicine 0.6 mg PO DAILY #7 cap Transmission Status: Received by [facility] Oxycodone [Oxyir] 5 mg PO Q6H PRN PRN 2 Days #8 tab PRN Reason: Pain Score 6-10/10 Transmission Status: Received by [facility] Primary Care Physician: Ryan Deng DPM [STAFF PHYSICIAN] - 3-5 Days if not improving Please follow up with your Primary Care Physician in: 2 weeks Please Follow Up With: PCP When: 1-2 weeks Patient Instructions: ED ARTHRITIS Gout Disposition: Home Minutes spent on discharge:: 35 Patient Condition:: Stable Medical Necessity - Tobacco Use Smoking Status: Never smoker Meaningful Use Info Meaningful Use Diagnoses (Choose all that apply): None applicable <Sung Araujo F - Last Filed: 04/14/20 16:07> Discharge Date and Diagnosis - Secondary Discharge Diagnosis Chronic Problems: Chronic Problems (Last Reviewed 04/14/20 @ 01:[address] Javy Carr MD) STERN (dyspnea on exertion) (Chronic) GERD (gastroesophageal reflux disease) (Chronic) Benign hypertension (Chronic) Obstructive sleep apnea (Chronic) History of cerebral palsy (Chronic) Type II diabetes mellitus (Chronic) Gout (Chronic) Bronchial asthma (Chronic) Super obesity (Chronic) Vertigo (Chronic) S/P QUALITY TESTER shunt (Chronic) Hospital Course and Treatment Summary of Care Provided: The patient is a 34 year old M [] - Physical Exam Vitals/I&O's: Vital Signs Temp Pulse Resp BP Pulse Ox 97.8 F 86 16 145/88 H 95 04/14/20 08:04 04/14/20 08:04 04/14/20 08:04 04/14/20 08:04 04/14/20 08:04 Oxygen Delivery Method Room Air Weight: 346 lb 2.012 oz Body Mass Index (BMI) 59.4 Intake and Output for Last 24 Hours 04/12/20 04/13/20 04/14/20 23:59 23:59 23:59 Intake Total 310 / 310 Balance 310 / 310 Laboratory Results 04/13/20 23:50: WBC 12.2 H, RBC 4.70, Hgb 13.7, Hct 42.5, MCV 90.4, MCH 29.1, MCHC 32.2, RDW Std Deviation 50.8 H, RDW Coeff of Kusum 15.6 H, Plt Count 194, MPV 11.6, Immature Gran % (Auto) 1.000 H, Neut % (Auto) 68.8, Lymph % (Auto) 16.9 L , [place] % (Auto) 9.6, Eos % (Auto) 3.1, Baso % (Auto) 0.6, Absolute Neuts (auto) 8.4 H, Absolute Lymphs (auto) 2.05, Nucleated RBC % 0 04/13/20 23:50: Sodium 139, Potassium 4.0, Chloride 106, Carbon Dioxide 29.0, Anion Gap 4 L, BUN 13, Creatinine 0.71, Estim Creat Clear Calc 121.60, Est GFR (MDRD) Af Amer 162, Est GFR (MDRD) Non-Af 134, BUN/Creatinine Ratio 18.3, Glucose 133 H, Uric Acid 5.2, Calcium 8.4 L 04/14/20 06:30: POC Glucose 200 H 04/14/20 06:40: WBC 12.9 H, RBC 5.06, Hgb 14.6, Hct 46.0, MCV 90.9, MCH 28.9, MCHC 31.7 L, RDW Std Deviation 52.3 H, RDW Coeff of Kusum 16.1 H, Plt Count 203, MPV 12.0, Immature Gran % (Auto) 1.300 H, Neut % (Auto) 83.0 H, Lymph % (Auto) 11.0 L, [place] % (Auto) 3.9, Eos % (Auto) 0.3, Baso % (Auto) 0.5, Absolute Neuts (auto) 10.7 H, Absolute Lymphs (auto) 1.42, Nucleated RBC % 0 04/14/20 06:40: Sodium 136, Potassium 4.4, Chloride 104, Carbon Dioxide 26.0, Anion Gap 6, BUN 14, Creatinine 0.76, Estim Creat Clear Calc 113.60, Est GFR (MDRD) Af Amer 150, Est GFR (MDRD) Non-Af 124, BUN/Creatinine Ratio 18.5, Glucose 199 H, Calcium 8.6 04/14/20 11:31: POC Glucose 257 H Addendum: Dr. Araujo I personally examined the patient and reviewed the chart. I agree with the above. 34-year-old morbidly obese male with a BMI of 59 presents to the hospital with right foot pain. Is mostly concentrated in his big toe and is consistent with his previous gout flares. He is feeling better since he was started on prednisone however he is a diabetic and his blood sugar is climbing therefore will transition him to colchicine with 1.2 mg being given prior to discharge and then he can take 0.6 daily for the next 7 to 10 days until symptoms resolve. Once his symptoms resolve he can resume his allopurinol. His uric acid during this acute level was 5.2, however previously was 11.1. I discussed with him the plan for discharge and he expressed understanding of the risks and benefits of going home today. Inpatient E&M: [id number] Disch Hosp
--- NOTE | 2020-04-16 13:45 | CASEMGMT ---
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 No answer and no messaging with name identifier. Latha BANGURAN RN ACM
== END 2020-04-14 12:18 | disposition home or self-care (01) | DRG 554 ==
LOC: ED 22:16 → MS3 04-14 03:38
PROVIDERS: Admitting Provider Hospitalist; Emergency Provider Emergency Medicine; PCP Family Medicine; Visit Provider Family Medicine
DX: M1A.9XX0 Chronic gout, unspecified, without tophus (tophi) (principal); Z68.43 Body mass index [BMI] 50.0-59.9, adult; K21.9 Gastro-esophageal reflux disease without esophagitis; I10 Essential (primary) hypertension; G47.33 Obstructive sleep apnea (adult) (pediatric); G80.9 Cerebral palsy, unspecified; Z98.2 Presence of cerebrospinal fluid drainage device; E66.01 Morbid (severe) obesity due to excess calories; Z79.51 Long term (current) use of inhaled steroids; Z80.3 Family history of malignant neoplasm of breast; Z82.3 Family history of stroke; Z83.3 Family history of diabetes mellitus; Z87.01 Personal history of pneumonia (recurrent); E11.65 Type 2 diabetes mellitus with hyperglycemia; F32.9 Major depressive disorder, single episode, unspecified; F41.9 Anxiety disorder, unspecified; G40.909 Epilepsy, unspecified, not intractable, without status epilepticus; J45.40 Moderate persistent asthma, uncomplicated
CPT/HCPCS: 36415; 73630; 80048; 82962; 84550; 85025; 94640; 97162; 97165; 99284; 99285; A4216

== ENCOUNTER → 2020-07-10 15:47 | Outpatient (CLI) | payer MEDICARE, MEDICAID, SELFPAY ==
[2020-04-14 02:26] VITALS: BMI 59.4
== END ==
PROVIDERS: PCP Family Medicine; Referring Provider Family Medicine; Visit Provider Family Medicine
DX: Z20.828 Contact with and (suspected) exposure to other viral communicable diseases (principal)
CPT/HCPCS: 87635; U0003

== ENCOUNTER → 2020-08-28 17:04 | Outpatient (CLI) | payer MEDICARE, MEDICAID, SELFPAY ==
[2020-08-15 14:04] VITALS: BMI 59.0
--- NOTE | 2020-08-28 17:07 | RAD_ITS ---
HISTORY: left side shoulder pain ADDITIONAL HISTORY: None provided. COMPARISON: 07/29/2019. CT 06/25/2018 EXAMINATION/TECHNIQUE: XR Chest 2 Views Number of images including paperwork: 3 FINDINGS: LUNGS AND PLEURA: No dense consolidation. Mild right middle lobe opacity with linear component. No sizable pleural effusion or pneumothorax. CARDIAC SILHOUETTE: Unremarkable. MEDIASTINUM AND OFELIA: Unremarkable. UPPER ABDOMEN: Unremarkable. SKELETON AND SOFT TISSUES: No acute findings. OTHER DEVICES AND HARDWARE: Shunt catheter overlies the right chest. RAD/Chest PA and Lateral IMPRESSION: Mild right middle lobe atelectasis versus infiltrate. at 0742 Reported and signed by: Yohana Morejon MD Electronically Signed: Yohana Morejon MD at 7:41 EST Tel , Service support ,
== END ==
PROVIDERS: PCP Family Medicine; Referring Provider Family Medicine; Visit Provider Family Medicine
DX: R07.89 Other chest pain (principal)
CPT/HCPCS: 71046

== ENCOUNTER 2020-10-27 14:28 | Inpatient (IN) | payer MEDICARE, MEDICAID, SELFPAY ==
[2020-08-15 14:04] VITALS: BMI 59.0
[2020-10-27] VITALS (13 sets, daily range): BP systolic 120–163; BP diastolic 68–101; PULSE 75–93; RESP 12–26; TEMP 36.4–37; O2SAT 88–97; BMI 60.0; BMI 62.3
--- NOTE | 2020-10-27 14:48 | CT_ITS ---
STUDY: CT BRAIN WITHOUT CONTRAST REASON FOR EXAM: Male, 35 years old. headache RADIATION DOSAGE (If Supplied By Facility): CTDIvol = ( 44.99 ) mGy, DLP = ( 829.85 ) mGycm TECHNIQUE: Transaxial CT imaging of the brain was performed without administration of intravenous contrast material. Individualized dose optimization techniques were used for this CT. COMPARISON: 08/11/2017 FINDINGS: Normal soft tissue structures. Normal calvarium. Right ventricular shunt catheter is stable in position. Stable ventricular system without dilation. Normal white matter tracts of the cerebral hemispheres. Normal basal ganglia and thalami. Normal brainstem. Normal cerebellum. There is no intracranial hemorrhage. There are no findings of an acute ischemic infarction. Normal visualized paranasal sinuses. CT/Brain/Head without Contrast IMPRESSION: Stable, nonacute unenhanced CT scan of the brain. 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 Electronically Signed: Huy Barnett MD ([place]) at 15:41 EST , Service support ,
--- NOTE | 2020-10-27 14:49 | ED.DCSUM_ITS ---
History of Present Illness Chief Complaint: Shortness of Breath Informant: Patient Narrative: 35-year-old male presenting with chest pressure and shortness of breath. He states the chest pressure has been constant since yesterday but he notes he has had it for the last 3 days. Patient also complains of shortness of breath. He has a home pulse oximeter and states that his oxygen has been dropping down to 90 at home. Patient states he is having to wear his CPAP throughout the day just to get his oxygen up. Patient has not had fever, body aches, myalgias. He does state he is fatigued. He also notes that he has a frontal pressure headache. He states he has history of LEVELER HELPER shunt. He denies being dizzy or lightheaded. Denies visual changes. - Past Medical History (1) Benign hypertension Status: Chronic (2) GERD (gastroesophageal reflux disease) Status: Chronic (3) Gout Status: Chronic (4) History of cerebral palsy Status: Chronic (5) Obstructive sleep apnea Status: Chronic Past Medical History - Allergies and Home Meds Allergies/Adverse Reactions: Allergies DUST Allergy (Uncoded 10/27/20 14:34) SNEEZING, COUGHING grass Allergy (Uncoded 10/27/20 14:34) SNEEZING, COUGHING pollen Allergy (Uncoded 10/27/20 14:34) SNEEZING, COUGHING Primary Care Physician: Manpreet Milan MD [Primary Care Provider] - Prior records reviewed: Yes Surgical History: noncontributory, - - Cerebral shunt secondary to hydrocephalus, tendon release Lives: Spouse/ Significant Other Smoking Status: Never smoker Alcohol: None Drugs: None - Family History Maternal Family History: Family History (Last Reviewed 08/15/20 @ 13:47 by Dania Norris NP, FORESTRY AID TECHNICIAN-C) Father Chronic a-fib CVA (cerebral vascular accident) Mother ROBERT (obstructive sleep apnea) Breast cancer Grandfather Cancer Other Diabetes Family History: Reports: Diabetes Paternal Family History: Family History (Last Reviewed 08/15/20 @ 13:47 by Dania Norris NP, FORESTRY AID TECHNICIAN-C) Father Chronic a-fib CVA (cerebral vascular accident) Mother ROBERT (obstructive sleep apnea) Breast cancer Grandfather Cancer Other Diabetes Family History: Reports: - - History of atrial fibrillation Sibling Family History: Family History (Last Reviewed 08/15/20 @ 13:47 by Dania Norris FORESTRY AID TECHNICIAN, FORESTRY AID TECHNICIAN-C) Father Chronic a-fib CVA (cerebral vascular accident) Mother ROBERT (obstructive sleep apnea) Breast cancer Grandfather Cancer Other Diabetes Family History: Reports: Diabetes Review of Systems General: Reports: Malaise. Denies: Chills, Fever, Sweats Eyes: Denies: Visual changes - bilaterally, Diplopia ENT: Denies: Rhinorrhea, Sore throat Cardiovascular: Reports: Chest pain. Denies: Palpitations, Heart racing Respiratory: Reports: Dyspnea. Denies: Cough Gastrointestinal: Denies: Abdominal pain, Nausea, Vomiting Genitourinary: Denies: Dysuria, Hematuria Musculoskeletal: Denies: Myalgias, Arthralgias Neurological: Reports: Headache. Denies: Weakness, Parasthesia Psych: Denies: Depression, Anxiety Physical Exam Vital Signs/Narrative: Vital Signs Temp Pulse Resp BP Pulse Ox 10/27/20 14:29 97.5 F L 93 26 H 163/101 H 94 Inital Vital Signs reviewed: Yes General: Well nourished, No Acute Distress Head: Normocephalic, Atraumatic Eyes: Perrl ENT: Moist mucous membranes, No rhinorrhea Cardiovascular: Regular rate, Regular rhythm Respiratory: No distress, CTA bilaterally Abdomen: Soft, Nontender, Nondistended Extremities: Nontender, No edema Skin: Normal color, No rash Neurological: Alert, Oriented x3, Cranial nerves II-XII grossly intact Psychological: Normal affect, Normal Mood Diagnostic/Tx/Re-eval Clinical Impression(s) from Imaging Studies Brain CT 10/27/20 14:48 IMPRESSION: Stable, nonacute unenhanced CT scan of the brain. Right LEVELER HELPER shunt. Electronically Signed: Huy Barnett MD (Brooks) at 15:41 EST , Service support , Shuntogram 10/27/20 15:30 IMPRESSION: Unremarkable LEVELER HELPER shunt. Electronically Signed: uHy Barnett MD (Brooks) at 15:49 EST , Service support , Laboratory Data 10/27/20 10/27/20 10/27/20 15:15 15:15 15:15 WBC 9.2 RBC 5.07 Hgb 14.4 Hct 46.1 MCV 90.9 MCH 28.4 MCHC 31.2 L RDW Std Deviation 49.9 H RDW Coeff of Kusum 15.2 H Plt Count 200 MPV 11.6 Immature Gran % (Auto) 1.100 H Neut % (Auto) 64.9 Lymph % (Auto) 20.9 [place] % (Auto) 6.8 Eos % (Auto) 5.4 H Baso % (Auto) 0.9 Absolute Neuts (auto) 6.0 Absolute Lymphs (auto) 1.93 Nucleated RBC % 0 D-Dimer Quant (PE/DVT) 0.29 Sodium 139 Potassium 3.4 L Chloride 102 Carbon Dioxide 31.0 Anion Gap 6 BUN 9 Creatinine 0.76 Estim Creat Clear Calc 112.51 Est GFR (MDRD) Af Amer 149 Est GFR (MDRD) Non-Af 123 BUN/Creatinine Ratio 11.8 Glucose 159 H Calcium 8.8 Troponin I < 0.015 - Medical Decision Making 5-year-old male presenting with shortness of breath saying that he has to wear his CPAP during the day. Patient was noted to be hypoxic on room air at 88%. Patient had EKG performed on arrival which is sinus rhythm at 91 bpm without signs of ischemic change. Patient had shuntogram visualized to be operational. CT brain is negative. There is nothing on his AP chest that appears acute as interpreted by myself radiology does agree. D-dimer is negative. Troponin is negative. Covid is negative. Given patient's hypoxia I will admit him to the hospital for further treatment. Impression: 1. Hypoxia 2. Shortness of breath 3. Chest pain ED Disposition - Plan for ED Patient: Referrals: Manpreet Milan MD [Primary Care Provider] -
--- NOTE | 2020-10-27 14:49 | EKG12_ITS ---
Test Reason : SOB Blood Pressure : / mmHG Vent. Rate : 091 BPM Atrial Rate : 091 BPM P-R Int : 156 ms QRS Dur : 104 ms QT Int : 376 ms P-R-T Axes : 040 073 013 degrees QTc Int : 462 ms Normal sinus rhythm Normal ECG Confirmed by ANJUM GONZALEZ, BENJA ([id number]), commercial production editor TAMMY NOLAN ([id number]) on 10/30/2020 12:34:42 PM Referred By: RU Confirmed By:BENJA VALERO MD
[2020-10-27] MEDS: Aspirin 81 MG TAB.CHEW 324 MG PO (15:15)
[2020-10-27 15:24] LABS: Absolute Lymphocyte Count 1.93 X10^3/uL (0.83-4.51); Basophil# 0.08 X10^3/uL; Basophil% 0.9 % (0-1); Eosinophils% 5.4 % (0-5); Hematocrit 46.1 % (40-54); Hemoglobin 14.4 g/dL (13.0-16.5); Lymphocyte # 1.93 X10^3/ul (4.0); Lymphocyte % 20.9 % (19-41); Mean Corp Hgb Conc 31.2 g/dL (32-36); Mean Corpuscular Hgb 28.4 pg (27.0-32.0); Mean Corpuscular Volume 90.9 fL (80-94); Mean Platelet Vol. 11.6 fl (6.2-12.0); Monocyte# 0.63 X10^3/uL; Monocyte% 6.8 % (0-10); NRBC Flagged by Analyzer 0 % (0-5); Neutrophil % 64.9 % (47-70); Platelet Count 200 K/mm3 (150-450); RBC Distribution Width CV 15.2 % (11.6-14.6); RBC Distribution Width SD 49.9 fl (35.1-43.9); Red Blood Count 5.07 M/mm3 (4.6-6.2); White Blood Count 9.2 K/mm3 (4.4-11.0)
--- NOTE | 2020-10-27 15:30 | RAD_ITS ---
EXAM: XR SHUNTOGRAM CLINICAL INDICATION: Headache TECHNIQUE: Frontal view of the head, neck, chest, abdomen and pelvis. This report was created using Experiment report generation technology. COMPARISON: None. FINDINGS: Right ventriculoperitoneal shunt catheter is grossly intact without obvious catheter disruption. The tip of the catheter projects over the left lower abdomen. No acute abnormality of chest, abdomen or pelvis. 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 Electronically Signed: Huy Barnett MD ([place]) at 15:49 EST , Service support ,
[2020-10-27 15:39] LABS: D-Dimer Quantitative (DVT/PE) 0.29 FEU/ug/m (0.27-0.49)
[2020-10-27 15:43] LABS: Anion Gap 6 (5-15); BUN 9 mg/dL (7-18); BUN/Creat Ratio 11.8 RATIO (10-20); Calcium,Total 8.8 mg/dL (8.5-10.1); Chloride 102 mmol/L (98-107); Creatinine, Serum 0.76 mg/dL (0.70-1.30); EST Glomerular Filtration Rate 123 mL/min (>60); Est Glom Filt Rate - Afr Amer 149 mL/min (>60); Estimated Creatinine Clearance 112.51 ml/min; Glucose 159 mg/dL (74-106); Potassium 3.4 mmol/L (3.5-5.1); Sodium Level 139 mmol/L (136-145)
[2020-10-27 16:46] LABS: Allen Test Positive; Base Excess 9 mmol/L (-2 to +2); Bicarbonate 34.4 mmol/L (22-26); Blood Gas Specimen Type ART; O2 Delivery Device Cannula; PO2 86 mmHG (75-100); SITE R Radial; SO2 96 % (95-99); Total Carbon Dioxide 36 mmol/L; pCO2 62.1 mmHg (35-45); pH 7.35 (7.35-7.45)
--- NOTE | 2020-10-27 17:03 | PCM.HP.STD ---
Problem List (1) Hypoxia Status: Acute (2) GERD (gastroesophageal reflux disease) Status: Chronic Qualifiers: Esophagitis presence: esophagitis presence not specified Qualified Code(s): K21.9 - Gastro-esophageal reflux disease without esophagitis (3) Benign hypertension Status: Chronic (4) Obstructive sleep apnea Status: Chronic (5) Type II diabetes mellitus Status: Chronic Qualifiers: Diabetes mellitus complication status: with other specified complication (6) Super obesity Status: Chronic (7) S/P FLUTE POLISHER shunt Status: Chronic History of Present Illness Date of Admission: 10/27/20 Chief Complaint: Shortness of breath - 3 days The patient is a 35 year old M with past medical history of ROBERT on CPAP, hypertension, GERD, seizure disorder, super morbid obesity, type II DM who comes in with progressive shortness of breath. Patient at baseline uses CPAP with 4 L of oxygen bled into it. Patient verbalized on the last 3 days, he feels very short of breath, he is not on oxygen [id number]. He took his pulse oximetry and he was saturating 88% on room air. He found that he was fatigued, and has increasingly been using his CPAP. This persisted for 3 days. 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 Zafar. He denied any fever or chills or runny nose or cough. He denies any asthma exacerbation. His admitting vitals show temperature of 97.5F, heart rate 93, blood pressure 163/101, respiratory rate was 26, SPO2 was 94% on room air, later on was 88% on room air. His CBCD was unremarkable. BMP showed potassium of 3.4, otherwise unremarkable. Initial troponins was negative. CT scan of the brain was unremarkable. Shuntogram was also unremarkable. COVID-19 antigen test was negative. Past Medical History Past Medical History (Chronic Problems): Chronic Problems (Last Reviewed 08/15/20 @ 13:47 by Dania Norris THERAPEUTIC SPECIALIST, THERAPEUTIC SPECIALIST-C) STERN (dyspnea on exertion) (Chronic) GERD (gastroesophageal reflux disease) (Chronic) Benign hypertension (Chronic) Obstructive sleep apnea (Chronic) History of cerebral palsy (Chronic) Type II diabetes mellitus (Chronic) Gout (Chronic) Bronchial asthma (Chronic) Super obesity (Chronic) Vertigo (Chronic) S/P FLUTE POLISHER shunt (Chronic) Medical History: Medical History (Last Reviewed 08/15/20 @ 13:47 by Dania Norris THERAPEUTIC SPECIALIST, THERAPEUTIC SPECIALIST-C) GERD (gastroesophageal reflux disease) (Chronic) K21.9 Chest pain (Inactive) R07.9 Benign hypertension (Chronic) I10 Obstructive sleep apnea (Chronic) G47.33 History of cerebral palsy (Chronic) Z86.69 Type II diabetes mellitus (Chronic) E11.9 Gout (Chronic) M10.9 Bronchial asthma (Chronic) J45.909 Super obesity (Chronic) E66.9 Vertigo (Chronic) R42 Depression F32.9 History of bronchitis Z87.09 History of pneumonia Z87.01 Hypertension I10 Seizure disorder G40.909 Allergies DUST Allergy (Uncoded 10/27/20 14:34) SNEEZING, COUGHING grass Allergy (Uncoded 10/27/20 14:34) SNEEZING, COUGHING pollen Allergy (Uncoded 10/27/20 14:34) SNEEZING, COUGHING Home Medications: Ambulatory Orders Medication Instructions Recorded Allopurinol [Zyloprim] 300 mg PO DAILY 06/09/15 Nebivolol HCl [Bystolic (Beta 10 mg PO DAILY 06/09/15 Leonora)] Montelukast [Singulair] 10 mg PO DAILY 01/26/16 Albuterol Sulfate [Ventolin Hfa] 18 gm IH Q4H PRN PRN 05/07/16 Budesonide/Formoterol 80-4.5 2 puff INHALATION BID 05/07/16 [Symbicort 80-4.5 Mcg Inhaler] Guaifenesin [Mucinex] 1,000 mg PO BID PRN 01/24/17 Baclofen 20 mg PO DAILY 06/25/18 Pantoprazole Sodium [Protonix] 40 mg PO DAILY 06/25/18 Potassium 1,080 mg PO DAILY 06/25/18 fluticasone propionate 50 2 spray INTRANASAL DAILY #48 g 03/23/19 mcg/actuation nasal spray,suspension metformin 500 mg tablet,extended 1,000 mg PO BID tab 03/23/19 release 24 hr Loratadine 10 mg PO DAILY 01/28/20 Multivitamin with Minerals 1 tab PO DAILY 01/28/20 [Multiple Vitamin] levETIRAcetam tablet [Keppra 500 mg PO BID 01/28/20 tablet] Furosemide [Lasix] 40 mg PO DAILY #0 01/30/20 Nystatin Powder [Mycostatin Powder] 1 applic TOPICAL TID #1 bottle 01/30/20 Acetaminophen [Tylenol Tablet] 650 mg PO Q6H PRN PRN tab 04/14/20 fluoxetine 10 mg capsule 20 mg PO DAILY cap 08/15/20 Surgical History: Surgical History (Last Reviewed 08/15/20 @ 13:47 by Dania Norris THERAPEUTIC SPECIALIST, THERAPEUTIC SPECIALIST-C) S/P FLUTE POLISHER shunt (Chronic) H/O eye surgery Z98.890 H/O hernia repair Z98.890, Z87.19 Surgical History: - - Cerebral shunt secondary to hydrocephalus, tendon release Psychiatric History: No pertinent psych hx Lives: Spouse/ Significant Other Smoking Status: Never smoker Tobacco Use: Non-smoker Alcohol: None Drugs: None - *Family History Maternal Family History: Family History (Last Reviewed 08/15/20 @ 13:47 by Dania Norris THERAPEUTIC SPECIALIST, THERAPEUTIC SPECIALIST-C) Father Chronic a-fib CVA (cerebral vascular accident) Mother ROBERT (obstructive sleep apnea) Breast cancer Grandfather Cancer Other Diabetes History Items: Diabetes Paternal Family History: Family History (Last Reviewed 08/15/20 @ 13:47 by Dania Norris THERAPEUTIC SPECIALIST, THERAPEUTIC SPECIALIST-C) Father Chronic a-fib CVA (cerebral vascular accident) Mother ROBERT (obstructive sleep apnea) Breast cancer Grandfather Cancer Other Diabetes History Items: - - History of atrial fibrillation Sibling Family History: Family History (Last Reviewed 08/15/20 @ 13:47 by Dania Norris THERAPEUTIC SPECIALIST, THERAPEUTIC SPECIALIST-C) Father Chronic a-fib CVA (cerebral vascular accident) Mother ROBERT (obstructive sleep apnea) Breast cancer Grandfather Cancer Other Diabetes History Items: Diabetes Review of Systems Constitutional: Reports: Weakness, Fatigue. Denies: Anorexia, Chills, Fever, Night Sweats, Malaise, Weight Change Eyes: Denies: Blurred vision, Cataracts, Conjunctivae Inflammation, Pain, Redness, Vision Change HEENT: Denies: Difficulty Hearing, Difficulty Swallowing, Head Aches, Hearing Changes, Sinus Congestion, Sinus Drainage Cardiovascular: Denies: Chest Pain, Claudication, Orthopnea, Palpitations, Paroxysmal Noc. Dyspnea Respiratory: Reports: Shortness of Breath, Shortness of breath at rest, Shortness of breath upon exertion, Wheezing. Denies: Cough, Sputum production Gastrointestinal: Denies: Abdominal Pain, Hematemesis, Hematochezia, Nausea, Vomiting Genitourinary: Denies: Dysuria Musculoskeletal: Denies: Joint Pain, Joint stiffness, Joint swelling, Joint Tenderness Skin: Denies: Rash, Wounds Neurological: Denies: Difficulty swallowing, Focal weakness, Numbness, Tingling Psychiatric: Denies: Anxiety, Depression, Homicidal Ideations, Suicidal Ideations Hematologic/ Lymphatic: Denies: Easy Bruising, Easy Bleeding VTE Information - Inpt Only VTE Present on Admission: No VTE Pharm Prophylaxis ordered?: Yes Patient Problems: Active and Suspected Problems (Last Reviewed 08/15/20 @ 13:47 by Dania Norris THERAPEUTIC SPECIALIST, THERAPEUTIC SPECIALIST-C) Hypoxia (Acute) - Physical Exam Vitals/I&O's: Vital Signs Temp Pulse Resp BP Pulse Ox 97.5 F L 81 21 H 120/68 97 10/27/20 14:29 10/27/20 16:26 10/27/20 16:26 10/27/20 16:26 10/27/20 16:26 Oxygen Flow Rate (L/min) 2 Oxygen Delivery Method Nasal Cannula Weight: 158.757 kg Body Mass Index (BMI) 60.0 General: Alert, Oriented x3, Cooperative, No apparent distress, - - on 3L oxygen, super morbidly obese HEENT: Atraumatic, PERRLA, EOMI, Normocephalic Oral: Moist Mucosa Neck: Supple Lungs: Diminished Cardiovascular: Regular rate, Regular Rhythm, Normal S1, Normal S2, No murmurs Abdomen: Bowel Sounds Present, Soft, Non Tender, Non-Distended, No Hepato-splenomegaly Extremities: Edema - Bilateral leg edema +2 Skin: No rashes Musculoskeletal: No Tenderness to Palpation of Joints or Extremities Lymphatic: No Cervical, Supraclavicular, or Inguinal Adenopathy Neurological: Cranial nerves II-XII grossly intact, Neuro grossly intact Psych/Mental Status: Normal Affect, Appropriate Microbiology Past 72 Hours 10/27/20 15:05 Mucosa - Nose SARS-CoV-2 Antigen (Rapid) - Final Laboratory Results 10/27/20 15:15: WBC 9.2, RBC 5.07, Hgb 14.4, Hct 46.1, MCV 90.9, MCH 28.4, MCHC 31.2 L, RDW Std Deviation 49.9 H, RDW Coeff of K[place] 15.2 H, Plt Count 200, MPV 11.6, Immature Gran % (Auto) 1.100 H, Neut % (Auto) 64.9, Lymph % (Auto) 20.9, [place] % (Auto) 6.8, Eos % (Auto) 5.4 H, Baso % (Auto) 0.9, Absolute Neuts (auto) 6.0, Absolute Lymphs (auto) 1.93, Nucleated RBC % 0 10/27/20 15:15: D-Dimer Quant (PE/DVT) 0.29 10/27/20 15:15: Sodium 139, Potassium 3.4 L, Chloride 102, Carbon Dioxide 31.0, Anion Gap 6, BUN 9, Creatinine 0.76, Estim Creat Clear Calc 112.51, Est GFR (MDRD) Af Amer 149, Est GFR (MDRD) Non-Af 123, BUN/Creatinine Ratio 11.8, Glucose 159 H, Calcium 8.8, Troponin I < 0.015 10/27/20 16:39: Specimen Type ART, Sample Site R Radial, pH 7.35, Bicarbonate Actual 34.4 H, Total CO2 36, Base Excess 9 H, O2 Saturation 96, ABG pCO2 62.1 H, ABG pO2 86, Tomer Test Positive, O2 Delivery Device Cannula, Liter Flow 2.0 Assessment/Plan All Active Problems (Last Reviewed 08/15/20 @ 13:47 by Dania Norris THERAPEUTIC SPECIALIST, THERAPEUTIC SPECIALIST-C) Exacerbation of gout (Acute) Hypoxia (Acute) 1. Acute hypoxic respiratory insufficiency likely secondary to obesity hypoventilation syndrome History of obstructive sleep apnea, on CPAP Admitted SPO2 was 88% on room air, improved to 94% on 2 L of oxygen Pulmonology consult, Continue on breathing treatments 2. Hypokalemia, replace, recheck in a.m. Will also check magnesium level 3. Asthma, moderate persistent, no signs of asthma exacerbation Continue on breathing treatments 4. Morbid obesity, BMI 60.1, lifestyle modification recommended 5. Hypertension, controlled, on continue with home regimen 6. Type II DM, on metformin, , will continue with blood glucose checkswith insulin sliding scale 7. ROBERT on CPAP 8. Seizure disorder, history of FLUTE POLISHER shunt, continue on Keppra 9. DVT PPx- Lovenox SC Inpatient E&M: 43897 Init Hosp L3
[2020-10-27 18:40] LABS: AST(SGOT) 51 U/L (15-37); Alanine Aminotransfer ALT/SGPT 61 U/L (16-61); Albumin, Serum 3.6 g/dL (3.2-5.0); Alkaline Phosphatase 78 U/L (45-117); Bilirubin, Direct 0.08 mg/dL (0.00-0.30); Globulin 4.3 g/dL (2.2-4.2); Magnesium 1.9 mg/dL (1.6-2.6); Protein, Total 7.9 g/dL (6.4-8.2)
[2020-10-27] MEDS: Potassium Chloride Oral Tablet 20 MEQ 40 MEQ PO (18:48)
[2020-10-27] MEDS: metFORMIN (XR) 500 MG Tablet 1000 MG PO (18:49)
[2020-10-27] MEDS: Budesonide Respules 0.5 MG/2 ML AMPUL.NEB. INHALATION (19:52)
[2020-10-27] MEDS: Ipratropium/Albuterol Sulfate 3 ML AMPUL.NEB INHALATION (19:52)
[2020-10-27] MEDS: Enoxaparin 40 MG/0.4 ML Syringe SC (21:02)
[2020-10-27] MEDS: levETIRAcetam 500 MG Tablet PO (21:02)
[2020-10-27 22:16] LABS: Bedside Glucose 136 mg/dL (70-110)
[2020-10-28] VITALS (9 sets, daily range): BP systolic 144–160; BP diastolic 79–94; PULSE 68–90; RESP 12–20; TEMP 36.3–36.7; O2SAT 86–96
[2020-10-28] MEDS: Nystatin Powder 15gm Bottle 1 APPLIC TOPICAL ×2 (03:12→08:21)
[2020-10-28 06:22] LABS: Absolute Lymphocyte Count 1.87 X10^3/uL (0.83-4.51); Absolute Neutrophil Count 4.9 X10^3/uL (2.0-7.7); Basophil# 0.06 X10^3/uL; Basophil% 0.8 % (0-1); Eosinophil# 0.42 X10^3/uL; Eosinophils% 5.3 % (0-5); Hematocrit 45.4 % (40-54); Hemoglobin 14.1 g/dL (13.0-16.5); Lymphocyte # 1.87 X10^3/ul (4.0); Lymphocyte % 23.4 % (19-41); Mean Corp Hgb Conc 31.1 g/dL (32-36); Mean Corpuscular Hgb 28.3 pg (27.0-32.0); Mean Platelet Vol. 11.6 fl (6.2-12.0); Monocyte% 7.5 % (0-10); NRBC Flagged by Analyzer 0 % (0-5); Neutrophil # 4.94 X10^3/uL (2.7-7.7); Neutrophil % 61.9 % (47-70); Platelet Count 181 K/mm3 (150-450); RBC Distribution Width CV 15.5 % (11.6-14.6); RBC Distribution Width SD 51.3 fl (35.1-43.9); Red Blood Count 4.99 M/mm3 (4.6-6.2)
[2020-10-28] MEDS: Insulin Lispro 100 UNIT/ML INSULN.PEN SC ×2 (06:30→12:20)
[2020-10-28 06:50] LABS: Bedside Glucose 190 mg/dL (70-110)
[2020-10-28 06:52] LABS: ALB/GLOB Ratio 0.8 RATIO (0.9-2.4); AST(SGOT) 65 U/L (15-37); Alanine Aminotransfer ALT/SGPT 62 U/L (16-61); Albumin, Serum 3.3 g/dL (3.2-5.0); Alkaline Phosphatase 74 U/L (45-117); Anion Gap 5 (5-15); BUN 11 mg/dL (7-18); BUN/Creat Ratio 16.9 RATIO (10-20); Calcium,Total 8.5 mg/dL (8.5-10.1); Chloride 101 mmol/L (98-107); Creatinine, Serum 0.65 mg/dL (0.70-1.30); EST Glomerular Filtration Rate 147 mL/min (>60); Est Glom Filt Rate - Afr Amer 178 mL/min (>60); Estimated Creatinine Clearance 131.56 ml/min; Globulin 4.1 g/dL (2.2-4.2); Glucose 169 mg/dL (74-106); Potassium 3.7 mmol/L (3.5-5.1); Protein, Total 7.4 g/dL (6.4-8.2); Sodium Level 140 mmol/L (136-145)
[2020-10-28] MEDS: Ipratropium/Albuterol Sulfate 3 ML AMPUL.NEB INHALATION ×2 (07:18→15:11)
[2020-10-28] MEDS: Budesonide Respules 0.5 MG/2 ML AMPUL.NEB. INHALATION (07:18)
[2020-10-28 08:00] LABS: Magnesium 2.1 mg/dL (1.6-2.6)
[2020-10-28] MEDS: Fluticasone 0.05% 1 SPRAY NASAL.SRY 2 SPRAY NASAL (08:18)
[2020-10-28] MEDS: Montelukast 10 MG Tablet PO (08:19)
[2020-10-28] MEDS: Furosemide 40 MG Tablet PO (08:19)
[2020-10-28] MEDS: Baclofen 10 MG Tablet 20 MG PO (08:19)
[2020-10-28] MEDS: Enoxaparin 40 MG/0.4 ML Syringe SC (08:19)
[2020-10-28] MEDS: Loratadine 10 MG Tablet PO (08:19)
[2020-10-28] MEDS: Allopurinol 300 MG Tablet PO (08:20)
[2020-10-28] MEDS: Pantoprazole Sodium 40 MG Tablet PO (08:20)
[2020-10-28] MEDS: Nebivolol HCl 10 MG Tablet PO (08:20)
[2020-10-28] MEDS: levETIRAcetam 500 MG Tablet PO (08:20)
[2020-10-28] MEDS: metFORMIN (XR) 500 MG Tablet 1000 MG PO (08:20)
[2020-10-28] MEDS: Multivitamins,Ther W-Minerals Tablet 1 TABLET PO (08:20)
[2020-10-28] MEDS: FLUoxetine 20 MG Capsule PO (08:21)
[2020-10-28] MEDS: Glucerna Shake 120 ML LIQUID PO ×2 (08:27→12:23)
[2020-10-28] MEDS: Magnesium Sulfate 1 GM in 0.9% Normal Saline 100 ML IV (08:47)
--- NOTE | 2020-10-28 08:51 | PCM.CONS.PUL ---
Problem List (1) Hypoxia Status: Acute (2) STERN (dyspnea on exertion) Status: Chronic (3) GERD (gastroesophageal reflux disease) Status: Chronic Qualifiers: Esophagitis presence: esophagitis presence not specified Qualified Code(s): K21.9 - Gastro-esophageal reflux disease without esophagitis (4) Benign hypertension Status: Chronic (5) Obstructive sleep apnea Status: Chronic (6) History of cerebral palsy Status: Chronic (7) Type II diabetes mellitus Status: Chronic Qualifiers: Diabetes mellitus complication status: with other specified complication (8) Gout Status: Chronic (9) Bronchial asthma Status: Chronic Qualifiers: Asthma severity: moderate Asthma persistence: persistent Asthma complication type: uncomplicated Qualified Code(s): J45.40 - Moderate persistent asthma, uncomplicated (10) Super obesity Status: Chronic (11) S/P [employer] shunt Status: Chronic Reason for Consult Date of Consultation: 10/28/20 Reason for Consultation: Hypoxia History of Present Illness: The patient is a 35 year old M with past medical history listed below and well-known to me from the outpatient office, who presented to [facility] on 10/27/2020 secondary to increasing chest pressure and shortness of breath. Patient reportedly had had 24 hours of progressive chest pain, but it first noticed that 3 days prior. Patient states that he does have a pulse oximeter at home and had noted saturations in the mid 80s despite his baseline supplemental oxygen. Patient had used his CPAP during the day and was able to get his saturations to improve. Patient had not reported any fever, chills, nausea or vomiting. Patient did have a frontal headache, but denied any syncope, dizziness or lightheadedness. Patient did not report any new medications in the last week. In the ER, patient was hypertensive at 163/101 and saturating 94% on baseline oxygen. Initial imaging with CT of the head and shuntogram were unremarkable. Laboratory data showed a white blood cell count of 9.2, hemoglobin of 14.4 and a D-dimer of 0.29. Chemistries were unremarkable, along with troponin. EKG showed sinus rhythm at 91 bpm. Patient was admitted to the floor for further evaluation given increased need for supplemental oxygen. Overnight, patient was placed on BiPAP therapy. Patient woke up this morning feeling much improved. Saturations were stable on baseline nasal cannula oxygen. Patient is not reporting any current chest pain or abdominal pain. Patient does state that he has been struggling with his weight loss secondary to the loss of his mother. Patient is active in counseling. Patient does report that he has been compliant with his CPAP and oxygen therapy at home. Patient is not reporting any nocturnal cough or sinus congestion. Review of systems otherwise negative from a constitutional, HEENT, respiratory, cardiovascular, GI, genitourinary, musculoskeletal, skin, neurologic, psychiatric and hematologic system unless stated above. Past Medical History Past Medical History (Chronic Problems): Chronic Problems (Last Reviewed 08/15/20 @ 13:47 by Dania Norris MANAGER OF COMMUNITY RELATIONS, MANAGER OF COMMUNITY RELATIONS-C) STERN (dyspnea on exertion) (Chronic) GERD (gastroesophageal reflux disease) (Chronic) Benign hypertension (Chronic) Obstructive sleep apnea (Chronic) History of cerebral palsy (Chronic) Type II diabetes mellitus (Chronic) Gout (Chronic) Bronchial asthma (Chronic) Super obesity (Chronic) Vertigo (Chronic) S/P [employer] shunt (Chronic) Medical History: Medical History (Last Reviewed 08/15/20 @ 13:47 by Dania Norris MANAGER OF COMMUNITY RELATIONS, MANAGER OF COMMUNITY RELATIONS-C) GERD (gastroesophageal reflux disease) (Chronic) K21.9 Chest pain (Inactive) R07.9 Benign hypertension (Chronic) I10 Obstructive sleep apnea (Chronic) G47.33 History of cerebral palsy (Chronic) Z86.69 Type II diabetes mellitus (Chronic) E11.9 Gout (Chronic) M10.9 Bronchial asthma (Chronic) J45.909 Super obesity (Chronic) E66.9 Vertigo (Chronic) R42 Depression F32.9 History of bronchitis Z87.09 History of pneumonia Z87.01 Hypertension I10 Seizure disorder G40.909 Allergies DUST Allergy (Uncoded 10/27/20 14:34) SNEEZING, COUGHING grass Allergy (Uncoded 10/27/20 14:34) SNEEZING, COUGHING pollen Allergy (Uncoded 10/27/20 14:34) SNEEZING, COUGHING Home Medications: Ambulatory Orders Medication Instructions Recorded Allopurinol [Zyloprim] 300 mg PO DAILY 06/09/15 Nebivolol HCl [Bystolic (Beta 10 mg PO DAILY 06/09/15 Leonora)] Montelukast [Singulair] 10 mg PO DAILY 01/26/16 Albuterol Sulfate [Ventolin Hfa] 18 gm IH Q4H PRN PRN 09/14/16 Budesonide/Formoterol 80-4.5 2 puff INHALATION BID 05/07/16 [Symbicort 80-4.5 Mcg Inhaler] Guaifenesin [Mucinex] 1,000 mg PO BID PRN 01/24/17 Baclofen 20 mg PO DAILY 06/25/18 Pantoprazole Sodium [Protonix] 40 mg PO DAILY 06/25/18 Potassium 1,080 mg PO DAILY 06/25/18 fluticasone propionate 50 2 spray INTRANASAL DAILY #48 g 03/23/19 mcg/actuation nasal spray,suspension metformin 500 mg tablet,extended 1,000 mg PO BID tab 03/23/19 release 24 hr Loratadine 10 mg PO DAILY 01/28/20 Multivitamin with Minerals 1 tab PO DAILY 01/28/20 [Multiple Vitamin] levETIRAcetam tablet [Keppra 500 mg PO BID 01/28/20 tablet] Furosemide [Lasix] 40 mg PO DAILY #0 01/30/20 Nystatin Powder [Mycostatin Powder] 1 applic TOPICAL TID #1 bottle 01/30/20 Acetaminophen [Tylenol Tablet] 650 mg PO Q6H PRN PRN tab 04/14/20 fluoxetine 10 mg capsule 20 mg PO DAILY cap 08/15/20 Surgical History: Surgical History (Last Reviewed 08/15/20 @ 13:47 by Dania Norris MANAGER OF COMMUNITY RELATIONS, MANAGER OF COMMUNITY RELATIONS-C) S/P [employer] shunt (Chronic) H/O eye surgery Z98.890 H/O hernia repair Z98.890, Z87.19 Surgical History: - - Cerebral shunt secondary to hydrocephalus, tendon release Psychiatric History: No pertinent psych hx Lives: Spouse/ Significant Other Smoking Status: Never smoker Tobacco Use: Non-smoker Alcohol: None Drugs: None - *Family History Maternal Family History: Family History (Last Reviewed 08/15/20 @ 13:47 by Dania Norris MANAGER OF COMMUNITY RELATIONS, MANAGER OF COMMUNITY RELATIONS-C) Father Chronic a-fib CVA (cerebral vascular accident) Mother ROBERT (obstructive sleep apnea) Breast cancer Grandfather Cancer Other Diabetes History Items: Diabetes Paternal Family History: Family History (Last Reviewed 08/15/20 @ 13:47 by Dania Norris NP, MANAGER OF COMMUNITY RELATIONS-C) Father Chronic a-fib CVA (cerebral vascular accident) Mother ROBERT (obstructive sleep apnea) Breast cancer Grandfather Cancer Other Diabetes History Items: - - History of atrial fibrillation Sibling Family History: Family History (Last Reviewed 08/15/20 @ 13:47 by Dania Norris MANAGER OF COMMUNITY RELATIONS, MANAGER OF COMMUNITY RELATIONS-C) Father Chronic a-fib CVA (cerebral vascular accident) Mother ROBERT (obstructive sleep apnea) Breast cancer Grandfather Cancer Other Diabetes History Items: Diabetes Review of Systems Comment: See HPI Patient Problems: Active and Suspected Problems (Last Reviewed 08/15/20 @ 13:47 by Dania Norris MANAGER OF COMMUNITY RELATIONS, MANAGER OF COMMUNITY RELATIONS-C) Hypoxia (Acute) Objective: All imaging was personally reviewed. Agree with formal interpretation. Patient's last pulmonary function test was completed in 2019 showing a moderately severe obstructive ventilatory defect (FVC 65%, FEV1 58%, TLC 91%, RV 168%, DLCO 78%). Patient's last echocardiogram was completed in 2018 showing an EF of 60% with normal diastolic function. And poor visualization of the right ventricle. - Physical Exam Vitals/I&O's: Vital Signs Temp Pulse Resp BP Pulse Ox 36.3 C L 77 16 144/94 H 93 10/28/20 03:09 10/28/20 07:18 10/28/20 07:18 10/28/20 03:09 10/28/20 07:18 Oxygen Flow Rate (L/min) 3 Oxygen Delivery Method Nasal Cannula Weight: 164.6 kg Body Mass Index (BMI) 62.3 Intake and Output for Last 24 Hours 10/26/20 10/27/20 10/28/20 23:59 23:59 23:59 Intake Total 400 / 400 Balance 400 / 400 General: Alert, Oriented x3, Cooperative, No apparent distress, - - Morbid obesity HEENT: Atraumatic, PERRLA, EOMI, Normocephalic, - - Disconjugate gaze Oral: Moist Mucosa, No Gingival or Mucosal Lesions/ Ulcerations, - - Crowded posterior pharynx Neck: Supple, No JVD, No Nodes, Trachea Midline Lungs: No rhonchi, No wheeze, No rales, Diminished Cardiovascular: Regular rate, Regular Rhythm, Normal S1, Normal S2, No murmurs, No rub noted, No Gallop Abdomen: Bowel Sounds Present, Soft, Non Tender, Non-Distended, Obese Extremities: No clubbing, No cyanosis, No edema, Capillary Refill Less than 3 Seconds Skin: - - Vascular insufficiency changes of the lower legs Musculoskeletal: No Tenderness to Palpation of Joints or Extremities Lymphatic: No Cervical, Supraclavicular, or Inguinal Adenopathy Neurological: Cranial nerves II-XII grossly intact, Neuro grossly intact, Motor Exam 5/5 strength throughout Psych/Mental Status: Alert and oriented to time, place, person, mood and affect Microbiology Past 72 Hours 10/27/20 15:05 Mucosa - Nose SARS-CoV-2 Antigen (Rapid) - Final Laboratory Results 10/27/20 15:15: WBC 9.2, RBC 5.07, Hgb 14.4, Hct 46.1, MCV 90.9, MCH 28.4, MCHC 31.2 L, RDW Std Deviation 49.9 H, RDW Coeff of Kusum 15.2 H, Plt Count 200, MPV 11.6, Immature Gran % (Auto) 1.100 H, Neut % (Auto) 64.9, Lymph % (Auto) 20.9, [place] % (Auto) 6.8, Eos % (Auto) 5.4 H, Baso % (Auto) 0.9, Absolute Neuts (auto) 6.0, Absolute Lymphs (auto) 1.93, Nucleated RBC % 0 10/27/20 15:15: D-Dimer Quant (PE/DVT) 0.29 10/27/20 15:15: Sodium 139, Potassium 3.4 L, Chloride 102, Carbon Dioxide 31.0, Anion Gap 6, BUN 9, Creatinine 0.76, Estim Creat Clear Calc 112.51, Est GFR (MDRD) Af Amer 149, Est GFR (MDRD) Non-Af 123, BUN/Creatinine Ratio 11.8, Glucose 159 H, Calcium 8.8, Troponin I < 0.015 10/27/20 15:15: Magnesium 1.9, Total Bilirubin 0.40, Direct Bilirubin 0.08, AST 51 H, ALT 61, Alkaline Phosphatase 78, Total Protein 7.9, Albumin 3.6, Globulin 4.3 H 10/27/20 16:39: Specimen Type ART, Sample Site R Radial, pH 7.35, Bicarbonate Actual 34.4 H, Total CO2 36, Base Excess 9 H, O2 Saturation 96, ABG pCO2 62.1 H, ABG pO2 86, Tomer Test Positive, O2 Delivery Device Cannula, Liter Flow 2.0 10/27/20 22:12: POC Glucose 136 H 10/28/20 05:30: WBC 8.0, RBC 4.99, Hgb 14.1, Hct 45.4, MCV 91.0, MCH 28.3, MCHC 31.1 L, RDW Std Deviation 51.3 H, RDW Coeff of Kusum 15.5 H, Plt Count 181, MPV 11.6, Immature Gran % (Auto) 1.100 H, Neut % (Auto) 61.9, Lymph % (Auto) 23.4, [place] % (Auto) 7.5, Eos % (Auto) 5.3 H, Baso % (Auto) 0.8, Absolute Neuts (auto) 4.9, Absolute Lymphs (auto) 1.87, Nucleated RBC % 0 10/28/20 05:30: Sodium 140, Potassium 3.7, Chloride 101, Carbon Dioxide 34.0 H, Anion Gap 5, BUN 11, Creatinine 0.65 L, Estim Creat Clear Calc 131.56, Est GFR (MDRD) Af Amer 178, Est GFR (MDRD) Non-Af 147, BUN/Creatinine Ratio 16.9, Glucose 169 H, Calcium 8.5, Total Bilirubin 0.50, AST 65 H, ALT 62 H, Alkaline Phosphatase 74, Total Protein 7.4, Albumin 3.3, Globulin 4.1, Albumin/Globulin Ratio 0.8 L 10/28/20 05:30: Magnesium 2.1 10/28/20 06:27: POC Glucose 190 H Current Medications Acetaminophen (Acetaminophen 325 Mg Tablet) 650 mg PO Q6H PRN PRN PRN Reason: Pain Score 1-10/Temp > 100.7 F Al Hydroxide/Mg Hydroxide (Mag Hydrox/Al Hydrox/Simeth 30 Ml Udc) 30 ml PO Q6H PRN PRN PRN Reason: Gastric Burning Albuterol Sulfate (Albuterol 2.5 Mg/3 Ml Vial.Neb.) 2.5 mg INHALATION Q2H PRN PRN PRN Reason: Shortness of Breath/Wheezing Albuterol/Ipratropium (Ipratropium/Albuterol Sulfate 3 Ml Ampul.Neb) 3 ml INHALATION Q4HWA.RT [facility] Last Admin: 10/28/20 07:18 Dose: 3 ml Documented by: Allopurinol ([facility] 300 Mg Tablet) [facility] Admin: 10/28/20 08:20 Dose: 300 mg Documented by: Baclofen (Baclofen 10 Mg Tablet) 20 mg PO DAILY [facility] Last Admin: 10/28/20 08:19 Dose: 20 mg Documented by: Budesonide (Budesonide Respules 0.5 Mg/2 Ml Ampul.Neb.) 0.5 mg INHALATION Q12H.RT [facility] Last Admin: 10/28/20 07:18 Dose: 0.5 mg Documented by: Dextrose (Dextrose 50%-Water 25 Gm/50 Ml Disp.Syrin) 0 gm IV X1 PRN; Protocol PRN Reason: Hypoglycemia Enoxaparin Sodium (Enoxaparin 40 Mg/0.4 Ml Syringe) 40 mg SC BID [facility] Last Admin: 10/28/20 08:19 Dose: 40 mg Documented by: Fluoxetine HCl (Fluoxetine 20 Mg Capsule) 20 mg PO DAILY [facility] Last Admin: 10/28/20 08:21 Dose: 20 mg Documented by: Fluticasone Propionate (Fluticasone 0.05% 1 [place] Nasal.Sry) 2 spray NASAL DAILY [facility] Last Admin: 10/28/20 08:18 Dose: 2 spray Documented by: Furosemide (Furosemide 40 Mg Tablet) 40 mg PO DAILY [facility] Last Admin: 10/28/20 08:19 Dose: 40 mg Documented by: Glucagon (Glucagon 1 Mg/Ml Syringe) 1 mg IM .X1 PRN PRN Reason: Hypoglycemia Sodium Chloride () 250 mls @ 15 mls/hr IV .[id number] PRN PRN Reason: Saline Flush Sodium Chloride () 250 mls @ 15 mls/hr IV .[id number] PRN PRN Reason: Additional IVPB Infusion Magnesium Sulfate 1 gm/ Sodium (Chloride) 102 mls @ 52 mls/hr IV X1 ONE Stop: 10/28/20 10:27 Last Admin: 10/28/20 08:47 Dose: 52 mls/hr Documented by: Insulin Human Lispro (Insulin Lispro 100 Unit/Ml Insuln.Pen) 0 unit SC ACHS [facility]; Protocol Last Admin: 10/28/20 06:30 Dose: 1 units Documented by: Levetiracetam (Levetiracetam 500 Mg Tablet) 500 mg PO BID [facility] Last Admin: 10/28/20 08:20 Dose: 500 mg Documented by: Loratadine (Loratadine 10 Mg Tablet) 10 mg PO DAILY [facility] Last Admin: 10/28/20 08:19 Dose: 10 mg Documented by: Metformin HCl (Metformin (Xr) 500 Mg Tablet) 1,000 mg PO BIDCM [facility] Last Admin: 10/28/20 08:20 Dose: 1,000 mg Documented by: Montelukast Sodium (Montelukast 10 Mg Tablet) 10 mg PO DAILY [facility] Last Admin: 10/28/20 08:19 Dose: 10 mg Documented by: Multivitamins/Minerals (Multivitamins,Ther W-Minerals Tablet) 1 tablet PO DAILY@0800 [facility] Last Admin: 10/28/20 08:20 Dose: 1 tablet Documented by: Nebivolol (Nebivolol Hcl 10 Mg Tablet) 10 mg PO DAILY [facility] Last Admin: 10/28/20 08:20 Dose: 10 mg Documented by: Nutritional Formula (Lactose Free) (Glucerna Shake 120 Ml Liquid) 120 ml PO TIDCM [facility] Last Admin: 10/28/20 08:27 Dose: 120 ml Documented by: Nystatin (Nystatin Powder 15gm Bottle) 1 applic TOPICAL BID [facility]; Protocol Last Admin: 10/28/20 08:21 Dose: 1 applicatio Documented by: Ondansetron HCl (Ondansetron 4 Mg/2 Ml Vial) 4 mg IV Q8H PRN PRN PRN Reason: NAUSEA/VOMITING Pantoprazole Sodium (Pantoprazole Sodium 40 Mg Tablet) 40 mg PO DAILY [facility] Last Admin: 10/28/20 08:20 Dose: 40 mg Documented by: Psyllium Hydrophilic Mucilloid (Psyllium 1 Packet) 1 packet PO DAILY PRN PRN PRN Reason: Constipation Sodium Chloride (0.9% Saline Lock 10 Ml Syringe) 10 - 40 ml IV UD PRN PRN Reason: SALINE FLUSH Clinical Impression(s) from Imaging Studies Brain CT 10/27/20 14:48 IMPRESSION: Stable, nonacute unenhanced CT scan of the brain. Right [employer] shunt. Electronically Signed: Huy Barnett MD ([place]) at 15:41 EST , Service support , Shuntogram 10/27/20 15:30 IMPRESSION: Unremarkable [employer] shunt. Electronically Signed: Huy Barnett MD ([place]) at 15:49 EST , Service support , Assessment/Plan All Active Problems (Last Reviewed 08/15/20 @ 13:47 by Dania Norris MANAGER OF COMMUNITY RELATIONS, MANAGER OF COMMUNITY RELATIONS-C) Exacerbation of gout (Acute) Hypoxia (Acute) RECOMMENDATIONS: 1. Supplemental oxygen as needed 2. Keep saturations 90 to 92% 3. Avoid narcotics 4. Walking oximetry prior to discharge 5. Transition to [facility] as an outpatient IMPRESSIONS: 1. Hypoxia secondary to obesity hypoventilation syndrome Patient is currently on CPAP as an outpatient. However, ABG shows a normal AA gradient suggesting hypoventilation as an etiology. Patient does have a history of a [employer] shunt, but this appears to be working correctly. Patient should keep saturations 90 to 92% to maintain hypoxic drive. Patient would benefit from transition from CPAP to BiPAP to help with nocturnal ventilation. This can be addressed as an outpatient. Did encourage weight loss. Once patient is on BiPAP for 3 to 6 months, may evaluate with echocardiogram for pulmonary hypertension, although body habitus may make this difficult. 2. Moderate persistent asthma/ROBERT No signs or symptoms of exacerbation at this time. Do not recommend change in baseline regimen from an asthmatic standpoint. Transition to AVAPS is secondary to obesity hypoventilation syndrome, not lack of efficacy of ROBERT therapy. No indication for steroids or increased bronchodilators from my perspective 3. Morbid obesity/type 2 diabetes mellitus/hypertension/seizure disorder with history of [employer] shunt Complicates care, management, recovery and prognosis. Continue with p.o. medications for diabetes and hypertension. Did stress to the patient that weight loss will be helpful. These appear to be relatively controlled at this time. Likely okay to continue with baseline regimens. There does not appear to be any findings consistent with [employer] shunt malfunction. Presenting headache could be explained by hypoxia. Inpatient E&M: 96162 Init Hosp L3
[2020-10-28] MEDS: 0.9% Saline Lock 10 ML Syringe IV (10:43)
--- NOTE | 2020-10-28 10:57 | PCM.DC ---
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 Continue to use your CPAP at night until you are seen by Dr. Gaytan's assistant center manager, Dania Norris. Follow-up with her in 1 week. Allergies/Adverse Reactions: Allergies DUST Allergy (Uncoded 10/27/20 14:34) SNEEZING, COUGHING grass Allergy (Uncoded 10/27/20 14:34) SNEEZING, COUGHING pollen Allergy (Uncoded 10/27/20 14:34) SNEEZING, COUGHING Medications to take at Discharge Allopurinol [Zyloprim] 300 mg PO DAILY 06/09/15 Nebivolol HCl [Bystolic (Beta Leonora)] 10 mg PO DAILY 06/09/15 Montelukast [Singulair] 10 mg PO DAILY 01/26/16 Albuterol Sulfate [Ventolin Hfa] 18 gm IH Q4H PRN PRN 05/07/16 Budesonide/Formoterol 80-4.5 [Symbicort 80-4.5 Mcg Inhaler] 2 puff INHALATION BID 05/07/16 Guaifenesin [Mucinex] 1,000 mg PO BID PRN 01/24/17 Baclofen 20 mg PO DAILY 06/25/18 Pantoprazole Sodium [Protonix] 40 mg PO DAILY 06/25/18 Potassium 1,080 mg PO DAILY 06/25/18 fluticasone propionate 50 mcg/actuation nasal spray,suspension 2 spray INTRANASAL DAILY #48 g 03/23/19 metformin 500 mg tablet,extended release 24 hr 1,000 mg PO BID tab 03/23/19 Loratadine 10 mg PO DAILY 01/28/20 Multivitamin with Minerals [Multiple Vitamin] 1 tab PO DAILY 01/28/20 levETIRAcetam tablet [Keppra tablet] 500 mg PO BID 01/28/20 Furosemide [Lasix] 40 mg PO DAILY #0 01/30/20 Nystatin Powder [Mycostatin Powder] 1 applic TOPICAL TID #1 bottle 01/30/20 Acetaminophen [Tylenol Tablet] 650 mg PO Q6H PRN PRN tab 04/14/20 fluoxetine 10 mg capsule 20 mg PO DAILY cap 08/15/20 Primary Care Physician: Manpreet Milan MD [Primary Care Provider] - Please follow up with your Primary Care Physician in: within 1-2 weeks Test Results: Test results from this visit will be discussed in further detail at your follow-up appointment, if applicable. Please Follow Up With: Dania Norris NP, [employer]OM STICK WORKER-C When: in 1 week Proposed Discharge Date: 10/28/20
--- NOTE | 2020-10-28 11:00 | PCM.DC.SUM ---
Discharge Date and Diagnosis - Problem List Patient Problems: Active and Suspected Problems (Last Reviewed 08/15/20 @ 13:47 by Dania Norris ANIMAL CAREGIVER, ANIMAL CAREGIVER-C) Hypoxia (Acute) Date of Admission: 10/27/20 Date of Discharge: 10/28/20 - Primary Discharge Diagnosis Acute Problems: Active Problems (Last Reviewed 08/15/20 @ 13:47 by Dania Norris ANIMAL CAREGIVER, ANIMAL CAREGIVER-C) Acute hypoxic respiratory insufficiency Acute respiratory acidosis Obesity hypoventilation syndrome - Secondary Discharge Diagnosis Chronic Problems: Chronic Problems (Last Reviewed 08/15/20 @ 13:47 by Dania Norris NP, ANIMAL CAREGIVER-C) STERN (dyspnea on exertion) (Chronic) GERD (gastroesophageal reflux disease) (Chronic) Benign hypertension (Chronic) Obstructive sleep apnea (Chronic) History of cerebral palsy (Chronic) Type II diabetes mellitus (Chronic) Gout (Chronic) Bronchial asthma (Chronic) Super obesity (Chronic) Vertigo (Chronic) S/P CUSTOMER CARE REPRESENTATIVE shunt (Chronic) Hospital Course and Treatment Imaging Results: Clinical Impression(s) from Imaging Studies Brain CT 10/27/20 14:48 IMPRESSION: Stable, nonacute unenhanced CT scan of the brain. Right CUSTOMER CARE REPRESENTATIVE shunt. Electronically Signed: Huy Barnett MD (Brooks) at 15:41 EST , Service support , Shuntogram 10/27/20 15:30 IMPRESSION: Unremarkable CUSTOMER CARE REPRESENTATIVE shunt. Electronically Signed: Huy Barnett MD (Brooks) at 15:49 EST , Service support , Pulmonology Operations: None Procedures: None Summary of Care Provided: 35 year old M with past medical history of ROBERT on CPAP, hypertension, GERD, seizure disorder, super morbid obesity, type II DM who comes in with progressive shortness of breath. Patient at baseline uses CPAP with 4 L of oxygen bled into it. Patient verbalized on the last 3 days, he feels very short of breath, he is not on oxygen [id number]. He took his pulse oximetry and he was saturating 88% on room air. He found that he was fatigued, and has increasingly been using his CPAP. This persisted for 3 days. 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 He denied any fever or chills or runny nose or cough. He denies any asthma exacerbation. Patient had an ABG done which showed pH of 7.35, PCO2 was 62.1 which is above his previous of 44, PO2 was 86 on 2 L of oxygen. He was managed overnight on BiPAP with improvement in his fatigue. He was seen by pulmonology. Patient was discharged home on continuous oxygen. He qualified for home oxygen. He will follow-up with Dania Norris in the outpatient in a week for paperwork for BiPAP. He was encouraged to continue using the oxygen [id number]. Patient Problems: Active and Suspected Problems (Last Reviewed 08/15/20 @ 13:47 by Dania Norris ANIMAL CAREGIVER, ANIMAL CAREGIVER-C) Hypoxia (Acute) Subjective: On the day of discharge, patient felt improved. He denied any fever or chills. He did well on the BiPAP. He was evaluated for home oxygen and qualified. Objective: General: Alert, Oriented x3, Cooperative, No apparent distress, - - on 3L oxygen, super morbidly obese HEENT: Atraumatic, PERRLA, EOMI, Normocephalic Oral: Moist Mucosa Neck: Supple Lungs: Diminished Cardiovascular: Regular rate, Regular Rhythm, Normal S1, Normal S2, No murmurs Abdomen: Bowel Sounds Present, Soft, Non Tender, Non-Distended, No Hepato-splenomegaly Extremities: Edema - Bilateral leg edema +2 Skin: No rashes Musculoskeletal: No Tenderness to Palpation of Joints or Extremities Lymphatic: No Cervical, Supraclavicular, or Inguinal Adenopathy Neurological: Cranial nerves II-XII grossly intact, Neuro grossly intact Psych/Mental Status: Normal Affect, Appropriate - Physical Exam Vitals/I&O's: Vital Signs Temp Pulse Resp BP Pulse Ox 98.0 F 90 20 H 160/79 H 90 10/28/20 09:10 10/28/20 09:10 10/28/20 09:10 10/28/20 09:10 10/28/20 09:12 Oxygen Flow Rate (L/min) [ 3 AMBULATION with Oxygen] Oxygen Flow Rate (L/min) 3 Oxygen Delivery Method Nasal Cannula Weight: 164.6 kg Body Mass Index (BMI) 62.3 Intake and Output for Last 24 Hours 0310/27/20 10/28/20 23:59 23:59 23:59 Intake Total 502 / 502 Balance 502 / 502 Microbiology Past 72 Hours 10/27/20 15:05 Mucosa - Nose SARS-CoV-2 Antigen (Rapid) - Final Laboratory Results 10/27/20 15:15: WBC 9.2, RBC 5.07, Hgb 14.4, Hct 46.1, MCV 90.9, MCH 28.4, MCHC 31.2 L, RDW Std Deviation 49.9 H, RDW Coeff of Kusum 15.2 H, Plt Count 200, MPV 11.6, Immature Gran % (Auto) 1.100 H, Neut % (Auto) 64.9, Lymph % (Auto) 20.9, [place] % (Auto) 6.8, Eos % (Auto) 5.4 H, Baso % (Auto) 0.9, Absolute Neuts (auto) 6.0, Absolute Lymphs (auto) 1.93, Nucleated RBC % 0 10/27/20 15:15: D-Dimer Quant (PE/DVT) 0.29 10/27/20 15:15: Sodium 139, Potassium 3.4 L, Chloride 102, Carbon Dioxide 31.0, Anion Gap 6, BUN 9, Creatinine 0.76, Estim Creat Clear Calc 112.51, Est GFR (MDRD) Af Amer 149, Est GFR (MDRD) Non-Af 123, BUN/Creatinine Ratio 11.8, Glucose 159 H, Calcium 8.8, Troponin I < 0.015 10/27/20 15:15: Magnesium 1.9, Total Bilirubin 0.40, Direct Bilirubin 0.08, AST 51 H, ALT 61, Alkaline Phosphatase 78, Total Protein 7.9, Albumin 3.6, Globulin 4.3 H 10/27/20 16:39: Specimen Type ART, Sample Site R Radial, pH 7.35, Bicarbonate Actual 34.4 H, Total CO2 36, Base Excess 9 H, O2 Saturation 96, ABG pCO2 62.1 H, ABG pO2 86, Tomer Test Positive, O2 Delivery Device Cannula, Liter Flow 2.0 10/27/20 22:12: POC Glucose 136 H 10/28/20 05:30: WBC 8.0, RBC 4.99, Hgb 14.1, Hct 45.4, MCV 91.0, MCH 28.3, MCHC 31.1 L, RDW Std Deviation 51.3 H, RDW Coeff of Kusum 15.5 H, Plt Count 181, MPV 11.6, Immature Gran % (Auto) 1.100 H, Neut % (Auto) 61.9, Lymph % (Auto) 23.4, [place] % (Auto) 7.5, Eos % (Auto) 5.3 H, Baso % (Auto) 0.8, Absolute Neuts (auto) 4.9, Absolute Lymphs (auto) 1.87, Nucleated RBC % 0 10/28/20 05:30: Sodium 140, Potassium 3.7, Chloride 101, Carbon Dioxide 34.0 H, Anion Gap 5, BUN 11, Creatinine 0.65 L, Estim Creat Clear Calc 131.56, Est GFR (MDRD) Af Amer 178, Est GFR (MDRD) Non-Af 147, BUN/Creatinine Ratio 16.9, Glucose 169 H, Calcium 8.5, Total Bilirubin 0.50, AST 65 H, ALT 62 H, Alkaline Phosphatase 74, Total Protein 7.4, Albumin 3.3, Globulin 4.1, Albumin/Globulin Ratio 0.8 L 10/28/20 05:30: Magnesium 2.1 10/28/20 06:27: POC Glucose 190 H Current Medications Acetaminophen (Acetaminophen 325 Mg Tablet) 650 mg PO Q6H PRN PRN PRN Reason: Pain Score 1-10/Temp > 100.7 F Al Hydroxide/Mg Hydroxide (Mag Hydrox/Al Hydrox/Simeth 30 Ml Udc) 30 ml PO Q6H PRN PRN PRN Reason: Gastric Burning Albuterol Sulfate (Albuterol 2.5 Mg/3 Ml Vial.Neb.) 2.5 mg INHALATION Q2H PRN PRN PRN Reason: Shortness of Breath/Wheezing Albuterol/Ipratropium (Ipratropium/Albuterol Sulfate 3 Ml Ampul.Neb) 3 ml INHALATION Q4HWA.RT [facility] Last Admin: 10/28/20 07:18 Dose: 3 ml Documented by: [facility]opurinol ([facility] 300 Mg Tablet) [facility] Admin: 10/28/20 08:20 Dose: 300 mg Documented by: Baclofen (Baclofen 10 Mg Tablet) 20 mg PO DAILY [facility] Last Admin: 10/28/20 08:19 Dose: 20 mg Documented by: Budesonide (Budesonide Respules 0.5 Mg/2 Ml Ampul.Neb.) 0.5 mg INHALATION Q12H.RT [facility] Last Admin: 10/28/20 07:18 Dose: 0.5 mg Documented by: Dextrose (Dextrose 50%-Water 25 Gm/50 Ml Disp.Syrin) 0 gm IV X1 PRN; Protocol PRN Reason: Hypoglycemia Enoxaparin Sodium (Enoxaparin 40 Mg/0.4 Ml Syringe) 40 mg SC BID [facility] Last Admin: 10/28/20 08:19 Dose: 40 mg Documented by: Fluoxetine HCl (Fluoxetine 20 Mg Capsule) 20 mg PO DAILY [facility] Last Admin: 10/28/20 08:21 Dose: 20 mg Documented by: Fluticasone Propionate (Fluticasone 0.05% 1 [place] Nasal.Sry) 2 spray NASAL DAILY [facility] Last Admin: 10/28/20 08:18 Dose: 2 spray Documented by: Furosemide (Furosemide 40 Mg Tablet) 40 mg PO DAILY [facility] Last Admin: 10/28/20 08:19 Dose: 40 mg Documented by: Glucagon (Glucagon 1 Mg/Ml Syringe) 1 mg IM .X1 PRN PRN Reason: Hypoglycemia Sodium Chloride () 250 mls @ 15 mls/hr IV .[id number] PRN PRN Reason: Saline Flush Sodium Chloride () 250 mls @ 15 mls/hr IV .[id number] PRN PRN Reason: Additional IVPB Infusion Insulin Human Lispro (Insulin Lispro 100 Unit/Ml Insuln.Pen) 0 unit SC ACHS [facility]; Protocol Last Admin: 10/28/20 06:30 Dose: 1 units Documented by: Levetiracetam (Levetiracetam 500 Mg Tablet) 500 mg PO BID [facility] Last Admin: 10/28/20 08:20 Dose: 500 mg Documented by: Loratadine (Loratadine 10 Mg Tablet) 10 mg PO DAILY [facility] Last Admin: 10/28/20 08:19 Dose: 10 mg Documented by: Metformin HCl (Metformin (Xr) 500 Mg Tablet) 1,000 mg PO BIDCM [facility] Last Admin: 10/28/20 08:20 Dose: 1,000 mg Documented by: Montelukast Sodium (Montelukast 10 Mg Tablet) 10 mg PO DAILY [facility] Last Admin: 10/28/20 08:19 Dose: 10 mg Documented by: Multivitamins/Minerals (Multivitamins,Ther W-Minerals Tablet) 1 tablet PO DAILY@0800 [facility] Last Admin: 10/28/20 08:20 Dose: 1 tablet Documented by: Nebivolol (Nebivolol Hcl 10 Mg Tablet) 10 mg PO DAILY [facility] Last Admin: 10/28/20 08:20 Dose: 10 mg Documented by: Nutritional Formula (Lactose Free) (Glucerna Shake 120 Ml Liquid) 120 ml PO TIDCM [facility] Last Admin: 10/28/20 08:27 Dose: 120 ml Documented by: Nystatin (Nystatin Powder 15gm Bottle) 1 applic TOPICAL BID [facility]; Protocol Last Admin: 10/28/20 08:21 Dose: 1 applicatio Documented by: Ondansetron HCl (Ondansetron 4 Mg/2 Ml Vial) 4 mg IV Q8H PRN PRN PRN Reason: NAUSEA/VOMITING Pantoprazole Sodium (Pantoprazole Sodium 40 Mg Tablet) 40 mg PO DAILY [facility] Last Admin: 10/28/20 08:20 Dose: 40 mg Documented by: Psyllium Hydrophilic Mucilloid (Psyllium 1 Packet) 1 packet PO DAILY PRN PRN PRN Reason: Constipation Sodium Chloride (0.9% Saline Lock 10 Ml Syringe) 10 - 40 ml IV UD PRN PRN Reason: SALINE FLUSH Last Admin: 10/28/20 10:43 Dose: 10 ml Documented by: Discharge Diet: Low fat/ Low Cholesterol, 2000 mg Sodium Diet, Carb Control Diet Discharge Activity: Return to Normal Activity Home Medications: Medications to take at Discharge Allopurinol [Zyloprim] 300 mg PO DAILY 06/09/15 Nebivolol HCl [Bystolic (Beta Leonora)] 10 mg PO DAILY 06/09/15 Montelukast [Singulair] 10 mg PO DAILY 01/26/16 Albuterol Sulfate [Ventolin Hfa] 18 gm IH Q4H PRN PRN 05/07/16 Budesonide/Formoterol 80-4.5 [Symbicort 80-4.5 Mcg Inhaler] 2 puff INHALATION BID 05/07/16 Guaifenesin [Mucinex] 1,000 mg PO BID PRN 01/24/17 Baclofen 20 mg PO DAILY 06/25/18 Pantoprazole Sodium [Protonix] 40 mg PO DAILY 06/25/18 Potassium 1,080 mg PO DAILY 06/25/18 fluticasone propionate 50 mcg/actuation nasal spray,suspension 2 spray INTRANASAL DAILY #48 g 03/23/19 metformin 500 mg tablet,extended release 24 hr 1,000 mg PO BID tab 03/23/19 Loratadine 10 mg PO DAILY 01/28/20 Multivitamin with Minerals [Multiple Vitamin] 1 tab PO DAILY 01/28/20 levETIRAcetam tablet [Keppra tablet] 500 mg PO BID 01/28/20 Furosemide [Lasix] 40 mg PO DAILY #0 01/30/20 Nystatin Powder [Mycostatin Powder] 1 applic TOPICAL TID #1 bottle 01/30/20 Acetaminophen [Tylenol Tablet] 650 mg PO Q6H PRN PRN tab 04/14/20 fluoxetine 10 mg capsule 20 mg PO DAILY cap 08/15/20 Primary Care Physician: Manpreet Milan MD [Primary Care Provider] - Please follow up with your Primary Care Physician in: within 1-2 weeks Please Follow Up With: Dania Norris ANIMAL CAREGIVER, ANIMAL CAREGIVER-C When: in 1 week Disposition: Home Minutes spent on discharge:: 40 Patient Condition:: Stable Medical Necessity - Tobacco Use Smoking Status: Never smoker Tobacco Use: Non-smoker Meaningful Use Info Meaningful Use Diagnoses (Choose all that apply): None applicable Inpatient E&M: 29911 [facility]
[2020-10-28 11:53] LABS: BNP,B-Type NATRIURETIC PEPTIDE < 2.0 pg/mL (0-100)
[2020-10-28 12:16] LABS: Bedside Glucose 279 mg/dL (70-110)
== END 2020-10-28 15:50 | disposition home or self-care (01) | DRG 206 ==
LOC: ED 16:32 → MS3 17:13
PROVIDERS: Admitting Provider Internal Medicine; Emergency Provider Student in an Organized Health Care Education/Training Program; PCP Family Medicine; Visit Provider Internal Medicine
DX: E66.2 Morbid (severe) obesity with alveolar hypoventilation (principal); Z68.44 Body mass index [BMI] 60.0-69.9, adult; E87.2 Acidosis; R09.02 Hypoxemia; E87.6 Hypokalemia; J45.40 Moderate persistent asthma, uncomplicated; K21.9 Gastro-esophageal reflux disease without esophagitis; E11.9 Type 2 diabetes mellitus without complications; R06.89 Other abnormalities of breathing; G80.9 Cerebral palsy, unspecified; I10 Essential (primary) hypertension; G40.909 Epilepsy, unspecified, not intractable, without status epilepticus; Z98.2 Presence of cerebrospinal fluid drainage device; M1A.9XX0 Chronic gout, unspecified, without tophus (tophi); I27.20 Pulmonary hypertension, unspecified; Z79.51 Long term (current) use of inhaled steroids; Z80.3 Family history of malignant neoplasm of breast; Z82.3 Family history of stroke; Z83.3 Family history of diabetes mellitus; Z87.01 Personal history of pneumonia (recurrent)
CPT/HCPCS: 36415; 36600; 70450; 75809; 80048; 80053; 80076; 82803; 82962; 83735; 83880; 84484; 85025; 85379; 87426; 93005; 94002; 94003; 94640; 97802; 99285; A4216

== ENCOUNTER → 2020-11-07 10:37 | Outpatient (CLI) | payer MEDICARE, MEDICAID, SELFPAY ==
[2020-11-07 09:42] VITALS: BMI 63.6
[2020-11-07 12:35] LABS: Absolute Lymphocyte Count 2.09 X10^3/uL (0.83-4.51); Absolute Neutrophil Count 5.1 X10^3/uL (2.0-7.7); Basophil% 1.2 % (0-1); Eosinophil# 0.45 X10^3/uL; Eosinophils% 5.3 % (0-5); Hematocrit 48.1 % (40-54); Hemoglobin 14.9 g/dL (13.0-16.5); Lymphocyte # 2.09 X10^3/ul (4.0); Lymphocyte % 24.6 % (19-41); Mean Corpuscular Hgb 28.6 pg (27.0-32.0); Mean Corpuscular Volume 92.3 fL (80-94); Mean Platelet Vol. 12.1 fl (6.2-12.0); Monocyte# 0.65 X10^3/uL; Monocyte% 7.6 % (0-10); NRBC Flagged by Analyzer 0 % (0-5); Neutrophil % 59.9 % (47-70); Platelet Count 240 K/mm3 (150-450); RBC Distribution Width CV 15.1 % (11.6-14.6); RBC Distribution Width SD 50.6 fl (35.1-43.9); Red Blood Count 5.21 M/mm3 (4.6-6.2); White Blood Count 8.5 K/mm3 (4.4-11.0)
[2020-11-07 12:47] LABS: Hemoglobin A1c 6.7 % (3.8-5.6)
[2020-11-07 12:59] LABS: Microalbumin,Random Urine 32.2 mg/L (NO RANGE EST.); Microalbumin:Creatinine Ratio 181.9 mg/g CRE (<30 mg/g CRE)
[2020-11-07 13:30] LABS: ALB/GLOB Ratio 1.1 RATIO (0.9-2.4); AST(SGOT) 55 U/L (15-37); Alanine Aminotransfer ALT/SGPT 76 U/L (16-61); Albumin, Serum 4.2 g/dL (3.2-5.0); Alkaline Phosphatase 86 U/L (45-117); Anion Gap 8 (5-15); BUN 14 mg/dL (7-18); BUN/Creat Ratio 18.8 RATIO (10-20); Calcium,Total 9.1 mg/dL (8.5-10.1); Chloride 102 mmol/L (98-107); Creatinine, Serum 0.75 mg/dL (0.70-1.30); EST Glomerular Filtration Rate 126 mL/min (>60); Est Glom Filt Rate - Afr Amer 152 mL/min (>60); Globulin 3.9 g/dL (2.2-4.2); Glucose 127 mg/dL (74-106); Protein, Total 8.1 g/dL (6.4-8.2); Sodium Level 141 mmol/L (136-145)
== END ==
PROVIDERS: PCP Family Medicine; Referring Provider Family Medicine; Visit Provider Family Medicine
DX: E11.9 Type 2 diabetes mellitus without complications (principal); F33.1 Major depressive disorder, recurrent, moderate
CPT/HCPCS: 36415; 80053; 82043; 82570; 83036; 85025

== ENCOUNTER → 2020-11-20 21:30 | Outpatient (CLI) | payer MEDICARE, MEDICAID, SELFPAY ==
[2020-11-07 09:42] VITALS: BMI 63.6
== END ==
PROVIDERS: PCP Family Medicine; Referring Provider Nurse Practitioner Acute Care; Visit Provider Nurse Practitioner Acute Care
DX: E66.2 Morbid (severe) obesity with alveolar hypoventilation (principal); G47.33 Obstructive sleep apnea (adult) (pediatric)
CPT/HCPCS: 95811

== ENCOUNTER → 2020-11-21 14:44 | Outpatient (CLI) | payer MEDICARE, MEDICAID, SELFPAY ==
[2020-11-07 09:42] VITALS: BMI 63.6
--- NOTE | 2020-11-21 14:46 | ECHOCS_ITS ---
Reason For Study: Dyspnea/SOB Procedure This was a 2D Doppler, Color Flow transthoracic echocardiogram. Technically difficult study due to patients body habits. Patient scanned sitting upright due to SOB. The study was technically difficult. Contrast injection was performed. Exam performed in department. Left Ventricle Based upon the 2D echocardiographic and contrast enhanced images obtained there appears to be grossly normal left ventricular size, wall motion, and systolic function. The estimated ejection fraction is 65 %. No evidence for diastolic dysfunction. Right Ventricle Based upon the 2D echocardiographic images obtained there appears to be grossly normal right ventricular size and systolic function. Atria The left atrium is not well visualized. The right atrium is not well visualized. No doppler evidence for ASD. Mitral Valve There is no mitral annular calcification. Normal mitral valve. Tricuspid Valve The tricuspid valve is not well visualized. Aortic Valve The aortic valve is not well visualized. Pulmonic Valve The pulmonic valve is not well visualized. Great Vessels The aortic root is not well visualized. Pericardium/Pleural No pericardial effusion. Medication 22 gauge I.V. with prn adaptor inserted into left arm. Diluted definity 4ml given slow IV push to enhance endocardial definition. Time Measurements MV dec time: 0.22 sec Doppler Measurements & Calculations MV E max duy: 105.9 cm/sec MV V2 max: 140.6 cm/sec MV P1/2t max duy: 139.6 cm/sec MV A max duy: 78.4 cm/sec MV max P.9 mmHg MV P1/2t: 88.7 msec MV E/A: 1.4 MV V2 mean: 77.4 cm/sec MV mean P.9 mmHg MV dec slope: 461.2 cm/sec2 MV V2 VTI: 30.9 cm MVA(P1/2t): 2.5 cm2 ECHO/Echo Complete W/ Contrast Interpretation Summary The study was technically difficult. Contrast injection was performed. Based upon the 2D echocardiographic and contrast enhanced images obtained there appears to be grossly normal left ventricular size, wall motion, and systolic function. The estimated ejection fraction is 65 %. No evidence for diastolic dysfunction. Ordering Physician: Dania Norris Referring Physician: Manpreet Milan Performed By: Zach Mcdermott RCS
== END ==
PROVIDERS: PCP Family Medicine; Referring Provider Nurse Practitioner Acute Care; Visit Provider Nurse Practitioner Acute Care
DX: R06.00 Dyspnea, unspecified (principal); R06.02 Shortness of breath
CPT/HCPCS: 93306; Q9957; A4216; C8929

== ENCOUNTER → 2021-02-12 14:42 | Outpatient (CLI) | payer MEDICARE, MEDICAID, SELFPAY ==
[2021-01-08 06:01] VITALS: BMI 62.6
[2021-02-12 17:56] LABS: Absolute Lymphocyte Count 1.97 X10^3/uL (0.83-4.51); Absolute Neutrophil Count 5.7 X10^3/uL (2.0-7.7); Basophil# 0.06 X10^3/uL; Basophil% 0.7 % (0-1); Eosinophil# 0.42 X10^3/uL; Eosinophils% 4.8 % (0-5); Hematocrit 44.6 % (40-54); Hemoglobin 13.9 g/dL (13.0-16.5); Lymphocyte # 1.97 X10^3/ul (0.83-4.51); Lymphocyte % 22.5 % (19-41); Mean Corp Hgb Conc 31.2 g/dL (32-36); Mean Corpuscular Hgb 28.3 pg (27.0-32.0); Mean Corpuscular Volume 90.8 fL (80-94); Mean Platelet Vol. 11.8 fl (6.2-12.0); Monocyte# 0.57 X10^3/uL; Monocyte% 6.5 % (0-10); NRBC Flagged by Analyzer 0 % (0-5); Neutrophil # 5.65 X10^3/uL (2.7-7.7); Neutrophil % 64.6 % (47-70); Platelet Count 204 K/mm3 (150-450); RBC Distribution Width CV 15.6 % (11.6-14.6); RBC Distribution Width SD 51.2 fl (35.1-43.9); Red Blood Count 4.91 M/mm3 (4.6-6.2); White Blood Count 8.8 K/mm3 (4.4-11.0)
[2021-02-12 18:09] LABS: ALB/GLOB Ratio 0.9 RATIO (0.9-2.4); AST(SGOT) 41 U/L (15-37); Alanine Aminotransfer ALT/SGPT 58 U/L (16-61); Albumin, Serum 3.6 g/dL (3.2-5.0); Alkaline Phosphatase 84 U/L (45-117); Anion Gap 8 (5-15); BUN 8 mg/dL (7-18); BUN/Creat Ratio 11.2 RATIO (10-20); Calcium,Total 8.6 mg/dL (8.5-10.1); Chloride 104 mmol/L (98-107); Creatinine, Serum 0.71 mg/dL (0.70-1.30); EST Glomerular Filtration Rate 132 mL/min (>60); Est Glom Filt Rate - Afr Amer 160 mL/min (>60); Glucose 154 mg/dL (74-106); Potassium 4.1 mmol/L (3.5-5.1); Protein, Total 7.6 g/dL (6.4-8.2); Sodium Level 142 mmol/L (136-145)
== END ==
PROVIDERS: PCP Family Medicine; Referring Provider Family Medicine; Visit Provider Family Medicine
DX: E11.9 Type 2 diabetes mellitus without complications (principal); I27.20 Pulmonary hypertension, unspecified
CPT/HCPCS: 36415; 80053; 85025

== ENCOUNTER → 2021-03-11 08:52 | Outpatient (CLI) | payer MEDICARE, MEDICAID, SELFPAY ==
[2021-01-08 06:01] VITALS: BMI 62.6
[2021-03-11 09:38] LABS: Allen Test POS; Blood Gas Specimen Type ART; O2 Delivery Device Nasal Can; SITE R RADIAL; pH 7.41 (7.35-7.45)
[2021-03-11 09:39] LABS: Base Excess 1 mmol/L (-2 to +2); PO2 87 mmHG (75-100); SO2 97 % (95-99); Total Carbon Dioxide 27 mmol/L; pCO2 40.9 mmHg (35-45)
== END ==
PROVIDERS: PCP Family Medicine; Referring Provider Psychiatry & Neurology Neurology; Visit Provider Psychiatry & Neurology Neurology
DX: R56.9 Unspecified convulsions (principal)
CPT/HCPCS: 82803

== ENCOUNTER 2021-10-13 12:28 | Emergency (ER) | payer MEDICARE, SELFPAY ==
[2021-10-13 12:29] VITALS: BP 165/87; PULSE 100; RESP 15; TEMP 36.6; O2SAT 95; BMI 59.8
[2021-10-13 13:49] LABS: Absolute Lymphocyte Count 2.33 X10^3/uL (0.83-4.51); Absolute Neutrophil Count 5.1 X10^3/uL (2.0-7.7); Basophil# 0.09 X10^3/uL; Eosinophil# 0.43 X10^3/uL; Hematocrit 45.9 % (40-54); Hemoglobin 14.8 g/dL (13.0-16.5); Lymphocyte # 2.33 X10^3/ul (0.83-4.51); Lymphocyte % 27.1 % (19-41); Mean Corp Hgb Conc 32.2 g/dL (32-36); Mean Corpuscular Volume 89.8 fL (80-94); Mean Platelet Vol. 10.8 fl (6.2-12.0); Monocyte# 0.65 X10^3/uL; Monocyte% 7.6 % (0-10); NRBC Flagged by Analyzer 0 % (0-5); Neutrophil # 5.05 X10^3/uL (2.7-7.7); Neutrophil % 58.8 % (47-70); Platelet Count 193 K/mm3 (150-450); RBC Distribution Width CV 15.6 % (11.6-14.6); RBC Distribution Width SD 50.9 fl (35.1-43.9); Red Blood Count 5.11 M/mm3 (4.6-6.2); White Blood Count 8.6 K/mm3 (4.4-11.0)
[2021-10-13 13:52] LABS: Anion Gap 6 (5-15); BUN 13 mg/dL (7-18); BUN/Creat Ratio 15.5 RATIO (10-20); Calcium,Total 8.7 mg/dL (8.5-10.1); Chloride 104 mmol/L (98-107); Creatinine, Serum 0.84 mg/dL (0.70-1.30); EST Glomerular Filtration Rate 109 mL/min (>60); Est Glom Filt Rate - Afr Amer 132 mL/min (>60); Estimated Creatinine Clearance 100.82 ml/min; Glucose 104 mg/dL (74-106); Potassium 3.6 mmol/L (3.5-5.1); Sodium Level 140 mmol/L (136-145)
--- NOTE | 2021-10-13 14:04 | ED.RN ---
up to bathroom. multiple attempts to urinate for specimen
--- NOTE | 2021-10-13 14:18 | CT_ITS ---
STUDY: CT ABDOMEN AND PELVIS WITH CONTRAST REASON FOR EXAM: Male, 36 years old. LLQ abdominal pain RADIATION DOSAGE (If Supplied By Facility): CTDIvol = ( 31.36 ) mGy, DLP = ( 1539.18 ) mGycm TECHNIQUE: Transaxial images were obtained from the dome of the diaphragm to the symphysis pubis without oral contrast. IV 100mL Isovue-370 was administered. Sagittal and coronal images were reconstructed. Individualized dose optimization techniques were used for this CT. COMPARISON: 08/11/1970 FINDINGS: The visualized lung bases are unremarkable. The visualized portions of the heart are within normal limits. Normal liver. Normal gallbladder and extrahepatic biliary system. Normal spleen. Normal pancreas. Normal bilateral adrenal glands. Normal right kidney. Normal left kidney. Normal visualized stomach. Normal small intestine. Normal colon. There is non-visualization of the appendix. Normal abdominal aorta. Normal inferior vena cava. Normal retroperitoneum. Normal urinary bladder. Normal abdominal wall. Mild dextroscoliosis of the thoracic lumbar spine with degenerative disc disease. CT/Abdomen/Pelvis W IV Cont ONLY IMPRESSION: Normal enhanced CT of the abdomen and pelvis. Electronically Signed: Daniel Birmingham MD at 15:17 EST ,
--- NOTE | 2021-10-13 14:25 | ED.VIS.GI ---
HPI HPI - GI History of Present Illness Chief Complaint: Abd Pain Narrative Narrative: 36-year-old male presenting with left lower quadrant pain. He denies nausea, vomiting, diarrhea, constipation, fever, chills. He denies urinary complaints. He states he has a history of a muscle pull in this area. He has no history of diverticulitis. He states he called his primary care physician who sent him to the emergency room for evaluation. [facility] Medical History Benign hypertension Bronchial asthma Chest pain Depression GERD (gastroesophageal reflux disease) Gout History of bronchitis History of cerebral palsy History of pneumonia Hypertension Obstructive sleep apnea Seizure disorder Super obesity Type II diabetes mellitus Vertigo Home Medications allopurinol 300 mg PO DAILY 06/09/15 [History Last Taken 04/13/20 08:00] nebivolol 10 mg PO DAILY 06/09/15 [History Last Taken 04/13/20 08:00] montelukast 10 mg PO DAILY 01/26/16 [History Last Taken 04/13/20 16:00] albuterol sulfate 18 gm IH Q4H PRN PRN 05/07/16 [History Last Taken 04/12/20 20:00] guaifenesin 1,000 mg PO BID PRN 01/24/17 [History Last Taken Unknown] baclofen 20 mg PO DAILY 06/25/18 [History Last Taken 04/13/20 16:00] pantoprazole 40 mg PO DAILY 06/25/18 [History Last Taken 04/13/20 08:00] potassium 1,080 mg PO DAILY 06/25/18 [History Last Taken 04/13/20 08:00] fluticasone propionate 50 mcg/actuation nasal spray,suspension 2 spray INTRANASAL DAILY #48 g 03/23/19 [History Last Taken 04/13/20 08:00] metformin 500 mg tablet,extended release 24 hr 1,000 mg PO BID tab 03/23/19 [History Last Taken 04/13/20 16:00] levetiracetam 500 mg PO BID 01/28/20 [History Last Taken 04/13/20 16:00] multivitamin with minerals 1 tab PO DAILY 01/28/20 [History Last Taken 04/13/20 08:00] nystatin 1 applic TOPICAL TID #1 bottle 01/30/20 [Rx Last Taken 04/12/20] acetaminophen 650 mg PO Q6H PRN PRN tab 04/14/20 [Rx Last Taken Unknown] fluoxetine 10 mg capsule 20 mg PO DAILY cap 08/15/20 [History Last Taken Unknown] budesonide-formoterol HFA 160 mcg-4.5 mcg/actuation aerosol inhaler 2 puff INHALATION BID #1 each 11/07/20 [Rx Last Taken Unknown] furosemide 40 mg PO BID 10/13/21 [History Last Taken Unknown] Allergy/AdvReac Type Severity Reaction Status Date / Time DUST Allergy SNEEZING, Uncoded 10/13/21 12:29 COUGHING grass Allergy SNEEZING, Uncoded 10/13/21 12:29 COUGHING pollen Allergy SNEEZING, Uncoded 10/13/21 12:29 COUGHING Family History Father Chronic a-fib CVA (cerebral vascular accident) Mother ROBERT (obstructive sleep apnea) Breast cancer Grandfather Cancer bladder Other Diabetes Surgical History H/O eye surgery H/O hernia repair 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 Social History Smoking Status: Never smoker ROS ROS ED Constitutional Constitutional ED: Denies chills or fever(s) ENT ENT ED: Denies rhinorrhea or sore throat Cardiovascular Cardiovascular: Denies chest pain or palpitations Respiratory/Chest Respiratory/Chest: Denies cough or dyspnea Gastrointestinal Gastrointestinal: Reports abdominal pain; Denies constipation, diarrhea, nausea or vomiting Genitourinary Genitourinary ED: Denies dysuria or hematuria Musculoskeletal Musculoskeletal: Denies arthralgias or myalgias Integumentary Denies Abrasions or rash Neurologic Neurologic: Denies headache(s) or weakness EXAM Physical Exam Const Vital Signs: 10/13/21 12:29 10/13/21 16:06 Temperature 97.8 F Temperature Source Temporal Pulse Rate 100 88 Respiratory Rate 15 22 H Blood Pressure 165/87 H Blood Pressure Mean 113 Pulse Ox 95 93 Oxygen Delivery Method Nasal Cannula Nasal Cannula Oxygen Flow Rate (L/min) 2 2 Positive obese General Appearance ED: NAD; Negative for pallor Nutritional Appearance: obese HEENT normocephalic and atraumatic Eyes PERRL and EOMs intact bilaterally General Eye ED: Negative for pale conjunctiva or scleral icterus Neck No no lymphadenopathy and No supple GI non-distended Palpation: soft and tender LLQ Back/Spine no CVA tenderness Neuro CN's II-XII intact bilaterally Sensorium / Orientation: alert, oriented to person and oriented to place Psych mental status grossly normal and thought process normal Skin General Skin Exam: Negative for jaundice or pallor MDM MDM MDM Narrative Medical decision making narrative: Lab work was obtained. CBC and BMP are normal. Urinalysis is negative. Patient required nothing for pain. CT of the abdomen pelvis was performed which is negative for acute intra-abdominal findings. Patient counseled on this and he states he presumed this is a muscle pull because he had a before. He will use ibuprofen and ice at home. Patient discharged home in stable condition. Impression: 1. Abdominal pain Lab Data Attestation: I reviewed the patient's lab results. Labs: Laboratory Results - last 24 hr 10/13/21 10/13/21 10/13/21 13:00 13:00 14:30 WBC 8.6 RBC 5.11 Hgb 14.8 Hct 45.9 MCV 89.8 MCH 29.0 MCHC 32.2 RDW Std Deviation 50.9 H RDW Coeff of Kusum 15.6 H Plt Count 193 MPV 10.8 Immature Gran % (Auto) 0.500 Neut % (Auto) 58.8 Lymph % (Auto) 27.1 Jones % (Auto) 7.6 Eos % (Auto) 5.0 Baso % (Auto) 1.0 Absolute Neuts (auto) 5.1 Absolute Lymphs (auto) 2.33 Nucleated RBC % 0 Sodium 140 Potassium 3.6 Chloride 104 Carbon Dioxide 30.0 Anion Gap 6 BUN 13 Creatinine 0.84 Estim Creat Clear Calc 100.82 Est GFR (MDRD) Af Amer 132 Est GFR (MDRD) Non-Af 109 BUN/Creatinine Ratio 15.5 Glucose 104 Calcium 8.7 Urine Color Yellow Urine Clarity Clear Urine pH 5.0 Ur Specific Hines 1.020 Urine Protein 15 H Urine Glucose (UA) Normal Urine Ketones Negative Urine Occult Blood Negative Urine Nitrite Negative Urine Bilirubin Negative Urine Urobilinogen Normal Ur Leukocyte Esterase Negative Urine RBC 0 SEEN Urine WBC 0 SEEN Ur Squamous Epith Cells 0 SEEN Urine Bacteria 0 SEEN Urine Mucus 0 SEEN Radiography Diagnostic Testing: Clinical Impression(s) from Imaging Studies Abdomen/Pelvis CT 10/13/21 14:18 IMPRESSION: Normal enhanced CT of the abdomen and pelvis. Electronically Signed: Daniel Birmingham MD at 15:17 EST , Discharge Plan Triage Chief Complaint: Abd Pain ED Provider: Robinson Guillen Dx/Rx/DC Orders Instructions: ED Abdominal Pain Unkn Cause Male... Prescriptions: No Action fluticasone propionate 50 mcg/actuation spray,suspension 2 spray INTRANASAL DAILY Qty: 48 RF: 0 budesonide-formoterol [Symbicort] 160-4.5 mcg/actuation HFA aerosol inhaler 2 puff INHALATION BID Qty: 1 RF: 3 allopurinol 300 MG tablet 300 mg PO DAILY RF: 0 nebivolol 10 MG tablet 10 mg PO DAILY RF: 0 metformin 500 mg tablet extended release 24 hr 1,000 mg PO BID RF: 0 montelukast 10 MG tablet 10 mg PO DAILY RF: 0 albuterol sulfate 18 GM HFA aerosol inhaler 18 gm IH Q4H PRN PRN (Reason: Sob &/Or Wheezing) RF: 0 guaifenesin 1,200 MG tablet 1,000 mg PO BID PRN (Reason: Congestion) RF: 0 baclofen 20 MG tablet 20 mg PO DAILY RF: 0 potassium 99 MG tablet 1,080 mg PO DAILY RF: 0 pantoprazole 40 MG tablet 40 mg PO DAILY RF: 0 multivitamin with minerals 1 EACH tablet 1 tab PO DAILY RF: 0 levetiracetam 500 MG tablet 500 mg PO BID RF: 0 nystatin 1 APPLIC bottle 1 applic TOPICAL TID Qty: 1 RF: 0 fluoxetine 10 mg capsule 20 mg PO DAILY RF: 0 acetaminophen 325 MG tablet 650 mg PO Q6H PRN PRN (Reason: Pain Score 1-10/Temp > 100.7 F) RF: 0 furosemide 20 MG tablet 40 mg PO BID RF: 0 Primary Care Provider: Aliza Roman Referrals: Aliza Roman MD [Primary Care Provider] - Disposition Disposition: Home, Self Care
[2021-10-13 14:35] LABS: Bacteria 0 SEEN /hpf (None Seen); Mucous, Urine 0 SEEN /hpf (<or=2+); Red Blood Cells-Urine 0 SEEN /hpf (0-5); Squamous Epithelial Cells - UA 0 SEEN /hpf (0-5); White Blood Cells 0 SEEN /hpf (0-5)
[2021-10-13 14:39] LABS: Color, Urine Yellow (Yellow); Glucose, Dipstick Normal (Normal); Ketone-Dipstick Negative (Negative); Leukocyte Esterase-Dipstick Negative /ul (Negative); Nitrite-Dipstick Negative (Negative); Occult Blood-Urine Negative /ul (Negative); Protein-Dipstick 15 mg/dl (Negative); Urine Bilirubin Dipstick Negative (Negative); Urine Clarity Clear (Clear); Urine Urobilinogen Normal (Normal)
[2021-10-13 16:06] VITALS: PULSE 88; RESP 22; O2SAT 93
== END 2021-10-13 16:23 | disposition home or self-care (01) ==
PROVIDERS: Emergency Provider Student in an Organized Health Care Education/Training Program; PCP Family Medicine; Visit Provider Student in an Organized Health Care Education/Training Program
DX: R10.9 Unspecified abdominal pain (principal); G40.909 Epilepsy, unspecified, not intractable, without status epilepticus; E11.9 Type 2 diabetes mellitus without complications; I10 Essential (primary) hypertension; K21.9 Gastro-esophageal reflux disease without esophagitis; G47.33 Obstructive sleep apnea (adult) (pediatric)
CPT/HCPCS: 74177; 80048; 81001; 85025; 99284; P9612; Q9967; A4216

== ENCOUNTER 2022-02-14 12:32 | Emergency (ER) | payer MEDICARE, MEDICAID, SELFPAY ==
[2022-02-14 12:35] VITALS: BP 142/69; PULSE 146; RESP 38; TEMP 39.4; O2SAT 98; BMI 60.0
--- NOTE | 2022-02-14 12:58 | RAD_ITS ---
STUDY: X-RAY CHEST REASON FOR EXAM: Male, 36 years old. CHEST PAIN fever TECHNIQUE: XR Chest 1 View COMPARISON: 08/28/2020 FINDINGS: There is no demonstrated pleural abnormality. Right DYE TUB OPERATOR shunt. Normal size heart. Normal mediastinum and hair. Normal visualized pulmonary arteries. Normal visualized aortic arch and descending thoracic aorta. Normal visualized thoracic spine. Normal visualized ribs, clavicles, and shoulders. There is no demonstrated abnormality of the visualized soft tissue structures of the upper abdomen. RAD/Chest 1 View (Portable) IMPRESSION: There are no acute findings. Electronically Signed: Tripp John MD at 14:09 EDT ,
--- NOTE | 2022-02-14 12:58 | EKG12_ITS ---
Test Reason : Blood Pressure : / mmHG Vent. Rate : 147 BPM Atrial Rate : 144 BPM P-R Int : 116 ms QRS Dur : 112 ms QT Int : 338 ms P-R-T Axes : 025 099 006 degrees QTc Int : 528 ms Undetermined rhythm : Consider Sinus Tachycardia Incomplete right bundle branch block Nonspecific T wave abnormality Abnormal ECG Confirmed by ANJUM GONZALEZ, BENJA ([id number]), assignment desk editor TAMMY NOLAN ([id number]) on 02/18/2022 8:03:46 AM Referred By: MODE Confirmed By:BENJA VALERO MD
--- NOTE | 2022-02-14 13:02 | EDS_ITS ---
HPI History of Present Illness Chief Complaint: General Illness Narrative Narrative: Patient presents with fever, cough and worsening dyspnea for the past few days but worse since yesterday. He has noticed in the past week a rash under his breasts under his pannus and in his penile region, he was treated with nystatin and this seems to have improved. There is no neck pain or stiffness. He is denying a headache. He does have some upper airway congestion. He is denying any abdominal pain. No dysuria. No testicular pain. [facility] Medical History (Updated 02/14/22 @ 17:[address] Souleymane Allen MD) Benign hypertension Bronchial asthma Chest pain Depression GERD (gastroesophageal reflux disease) Gout History of bronchitis History of cerebral palsy History of pneumonia Hypertension Obstructive sleep apnea Seizure disorder Super obesity Type II diabetes mellitus Vertigo Home Medications allopurinol 300 mg tablet 300 mg PO DAILY gout 06/09/15 [History Last Taken 04/13/20 08:00] nebivolol 10 mg tablet 10 mg PO DAILY heart 06/09/15 [History Last Taken 04/13/20 08:00] montelukast 10 mg tablet 10 mg PO DAILY allergies 01/26/16 [History Last Taken 04/13/20 16:00] albuterol sulfate 90 mcg/actuation aerosol inhaler 18 gm IH Q4H PRN PRN Sob &/Or Wheezing 05/07/16 [History Last Taken 04/12/20 20:00] guaifenesin 1,200 mg tablet, extended release 12 hr 1,000 mg PO BID PRN Congestion 01/24/17 [History Last Taken Unknown] baclofen 20 mg tablet 20 mg PO DAILY muscle spasms 06/25/18 [History Last Taken 04/13/20 16:00] pantoprazole 40 mg tablet,delayed release 40 mg PO DAILY gi 06/25/18 [History Last Taken 04/13/20 08:00] potassium 99 mg tablet 1,080 mg PO DAILY supplement 06/25/18 [History Last Taken 04/13/20 08:00] fluticasone propionate 50 mcg/actuation nasal spray,suspension 2 spray intranasal DAILY allergies #48 grams 03/23/19 [History Last Taken 04/13/20 08:00] metformin 500 mg tablet,extended release 24 hr 1,000 mg PO BID diabetes 03/23/19 [History Last Taken 04/13/20 16:00] levetiracetam 500 mg tablet 500 mg PO BID seizures 01/28/20 [History Last Taken 04/13/20 16:00] multivitamin with minerals 1 tab PO DAILY vitamin 01/28/20 [History Last Taken 04/13/20 08:00] nystatin 100,000 unit/gram topical powder 1 applic topical TID #1 BOTTLE 01/30/20 [Rx Last Taken 04/12/20] acetaminophen 325 mg tablet 650 mg PO Q6H PRN PRN Pain Score 1-10/Temp > 100.7 F 04/14/20 [Rx Last Taken Unknown] fluoxetine 10 mg capsule 20 mg PO DAILY depression 08/15/20 [History Last Taken Unknown] budesonide-formoterol HFA 160 mcg-4.5 mcg/actuation aerosol inhaler (Symbicort) 2 puff inhalation BID #1 ea 11/07/20 [Rx Last Taken Unknown] furosemide 20 mg tablet 40 mg PO BID diuretic 10/13/21 [History Last Taken Unknown] colchicine 0.6 mg tablet ea PO 12/02/21 [History Last Taken Unknown] liraglutide 0.6 mg/0.1 mL (18 mg/3 mL) subcutaneous pen injector ml subcut 12/02/21 [History Last Taken Unknown] amoxicillin 500 mg-potassium clavulanate 125 mg tablet (Augmentin) 1 tab PO BID #14 tabs 02/14/22 [Rx Last Taken Unknown] doxycycline hyclate 100 mg capsule 100 mg PO BID #14 caps 02/14/22 [Rx Last Taken Unknown] Allergy/AdvReac Type Severity Reaction Status Date / Time DUST Allergy SNEEZING, Uncoded 12/02/21 13:46 COUGHING grass Allergy SNEEZING, Uncoded 12/02/21 13:46 COUGHING pollen Allergy SNEEZING, Uncoded 12/02/21 13:46 COUGHING Family History Father Chronic a-fib CVA (cerebral vascular accident) Mother ROBERT (obstructive sleep apnea) Breast cancer Grandfather Cancer bladder Other Diabetes Surgical History H/O eye surgery H/O hernia repair S/P [employer]UCATIONAL [employer]ER[employer] TE[employer]ER shunt Social History Smoking Status: Never smoker ROS ROS ED ROS Narrative Past medical history: Reviewed, it is extensive and includes, obesity, gout, hypoxia on home oxygen, GERD, hypertension, ROBERT, diabetes, asthma Medications: Reviewed in [employer] Social history: Noncontributory Review of systems: All systems negative except as indicated General: Fever Eyes: No visual changes ENT: Upper airway congestion Neck: No neck pain Cardiovascular: No chest pain Respiratory: Shortness of breath with a cough Gastrointestinal: No abdominal pain, nausea vomiting or diarrhea Genitourinary: No dysuria. Penile rash Musculoskeletal: Denies myalgias no difficulty with ambulation Skin: Rash as in HPI Neurological: No memory loss, confusion or any focal weakness Psych: No recent behavioral changes Hematologic: No easy bleeding or easy bruising EXAM Physical Exam Narrative Exam Narrative: Physical exam General: Patient is morbidly obese, he appears somewhat uncomfortable. Head: Normocephalic, Atraumatic Eyes: Conjunctiva not pale ENT: Moist mucous membranes. He does have some upper airway congestion. Neck: Supple, Nontender, No lymphadenopathy Cardiovascular: Tachycardic, Regular rhythm I cannot appreciate any murmurs Respiratory: Patient is speaking in full sentences, he has some coarse breath sounds but no obvious wheezing. Abdomen: Soft, Nontender, Nondistended normal external genitalia including scrotum and posterior scrotal regions without any signs of foreign years. I examined the penis and the tip of the penis at this time I cannot see any evidence of candidiasis. Back: Nontender, Normal Inspection. Negative for: CVA tenderness Extremities: Nontender, No edema Skin: Normal color, No rash. I examined under the breasts and pannus there is very slight candidiasis but looks like it is healing. Neurological: Alert, Normal Strength, Normal Sensation Psychological: Normal affect Const Vital Signs: 02/14/22 12:35 02/14/22 13:41 02/14/22 13:41 Temperature 102.9 F H Temperature Source Oral Pulse Rate 146 H 137 H Respiratory Rate 38 H 23 H Respiratory Effort Short of Breath Respiratory Pattern Tachypnea Blood Pressure 142/69 H 137/48 H Blood Pressure Mean 93 77 Pulse Ox 98 94 Oxygen Delivery Method Nasal Cannula Nasal Cannula Oxygen Flow Rate (L/min) 2 2 02/14/22 15:03 02/14/22 15:03 02/14/22 15:03 Temperature 97.6 F L 97.6 F L Temperature Source Temporal Temporal Pulse Rate 116 H Respiratory Rate 21 H Respiratory Effort Respiratory Pattern Blood Pressure 96/47 L Blood Pressure Mean 63 Pulse Ox 93 Oxygen Delivery Method Non-Rebreather @ 15L/min Nasal Cannula Oxygen Flow Rate (L/min) 2 02/14/22 16:06 02/14/22 16:06 Temperature 98.7 F 97.6 F L Temperature Source Temporal Temporal Pulse Rate 78 Respiratory Rate 14 Respiratory Effort Respiratory Pattern Blood Pressure 117/87 H Blood Pressure Mean 97 Pulse Ox 98 Oxygen Delivery Method Oxygen Flow Rate (L/min) MDM MDM MDM Narrative Medical decision making narrative: Patient has an unremarkable emergency department work-up, however I do believe there is a possibility that he has pneumonia especially with tachycardia fever and slight white count as well as a cough. I will be cautious because he has comorbidities and treat him with antibiotics. There is no evidence of sepsis at this time especially that his lactic acid improved with IV fluids. He appears well he significantly improved and wants to go home he is only slightly tachycardic, he tells me his baselines about 1 10-1 15 which is what he has right now. If anything worsens he is to return, he is on home oxygen when he needs it although at this time he was satting well without any oxygen for about an hour prior to discharge Lab Data Labs: Laboratory Results - last 24 hr 02/14/22 02/14/22 02/14/22 13:15 13:15 13:37 WBC 11.6 H RBC 5.04 Hgb 14.8 Hct 45.6 MCV 90.5 MCH 29.4 MCHC 32.5 RDW Std Deviation 49.9 H RDW Coeff of [place] 15.2 H Plt Count 200 MPV 11.0 Immature Gran % (Auto) 0.900 Neut % (Auto) 85.1 H Lymph % (Auto) 7.6 L [place] % (Auto) 4.8 Eos % (Auto) 1.2 Baso % (Auto) 0.4 Absolute Neuts (auto) 9.8 H Absolute Lymphs (auto) 0.88 Nucleated RBC % 0 PT 13.3 INR 1.0 APTT 27.7 Sodium Potassium Chloride Carbon Dioxide Anion Gap BUN Creatinine Estim Creat Clear Calc Est GFR (MDRD) Af Amer Est GFR (MDRD) Non-Af BUN/Creatinine Ratio Glucose Lactic Acid Calcium Total Bilirubin AST ALT Alkaline Phosphatase Total Protein Albumin Globulin Albumin/Globulin Ratio Urine Color Yellow Urine Clarity Clear Urine pH 6.0 Ur Specific Sieper 1.010 Urine Protein 15 H Urine Glucose (UA) 100 H Urine Ketones Negative Urine Occult Blood Negative Urine Nitrite Negative Urine Bilirubin Negative Urine Urobilinogen Normal Ur Leukocyte Esterase Negative Urine RBC 0 SEEN Urine WBC 0 SEEN Ur Squamous Epith Cells 0 SEEN Urine Bacteria 0 SEEN Urine Mucus 0 SEEN 02/14/22 02/14/22 02/14/22 13:37 13:37 16:16 WBC RBC Hgb Hct MCV MCH MCHC RDW Std Deviation RDW Coeff of [place] Plt Count MPV Immature Gran % (Auto) Neut % (Auto) Lymph % (Auto) [place] % (Auto) Eos % (Auto) Baso % (Auto) Absolute Neuts (auto) Absolute Lymphs (auto) Nucleated RBC % PT INR APTT Sodium 139 Potassium 3.8 Chloride 105 Carbon Dioxide 27.0 Anion Gap 7 BUN 14 Creatinine 0.82 Estim Creat Clear Calc 103.28 Est GFR (MDRD) Af Amer 134 Est GFR (MDRD) Non-Af 111 BUN/Creatinine Ratio 17.0 Glucose 198 H Lactic Acid 2.4 H* 1.7 Calcium 8.8 Total Bilirubin 0.50 AST 26 ALT 42 Alkaline Phosphatase 96 Total Protein 8.0 Albumin 3.5 Globulin 4.5 H Albumin/Globulin Ratio 0.8 L Urine Color Urine Clarity Urine pH Ur Specific Sieper Urine Protein Urine Glucose (UA) Urine Ketones Urine Occult Blood Urine Nitrite Urine Bilirubin Urine Urobilinogen Ur Leukocyte Esterase Urine RBC Urine WBC Ur Squamous Epith Cells Urine Bacteria Urine Mucus Radiography Diagnostic Testing: Clinical Impression(s) from Imaging Studies Chest X-Ray 02/14/22 12:58 IMPRESSION: There are no acute findings. Electronically Signed: Tripp John MD at 14:09 EDT , Discharge Plan Triage Chief Complaint: General Illness ED Provider: Souleymane Allen Dx/Rx/DC Orders Clinical Impression: Fever, Cough Instructions: ED Cough Chronic Uncertain Cause Adult, ED Fever Control (Adult) Prescriptions: New doxycycline hyclate 100 mg capsule 100 mg PO BID Qty: 14 0RF amoxicillin-pot clavulanate [Augmentin] 500-125 mg tablet 1 tab PO BID Qty: 14 0RF No Action fluticasone propionate 50 mcg/actuation spray,suspension 2 spray INTRANASAL DAILY Qty: 48 Label Comments: USE 2 SPRAYS IN EACH NOSTRIL DAILY budesonide-formoterol [Symbicort] 160-4.5 mcg/actuation HFA aerosol inhaler 2 puff INHALATION BID Qty: 1 3RF Rx Instructions: administer with spacer, rinse mouth after each use colchicine 0.6 mg tablet PO Label Comments: take 1 tablet by mouth every 6 hours if needed for GOUT FLARE Victoza 3-Foster 0.6 mg/0.1 mL (18 mg/3 mL) pen injector subcut Label Comments: inject 1.8 milligram subcutaneously daily allopurinol 300 MG tablet 300 mg PO DAILY Label Comments: gout nebivolol 10 MG tablet 10 mg PO DAILY Label Comments: blood pressure metformin 500 mg tablet extended release 24 hr 1,000 mg PO BID Label Comments: diabetes montelukast 10 MG tablet 10 mg PO DAILY Label Comments: allergy med albuterol sulfate 18 GM HFA aerosol inhaler 18 gm IH Q4H PRN PRN (Reason: Sob &/Or Wheezing) Label Comments: inhaler guaifenesin 1,200 MG tablet 1,000 mg PO BID PRN (Reason: Congestion) baclofen 20 MG tablet 20 mg PO DAILY potassium 99 MG tablet 1,080 mg PO DAILY pantoprazole 40 MG tablet 40 mg PO DAILY multivitamin with minerals 1 EACH tablet 1 tab PO DAILY levetiracetam 500 MG tablet 500 mg PO BID Label Comments: seizure nystatin 1 APPLIC bottle 1 applic TOPICAL TID Qty: 1 0RF Protocol: *Topical Application Instructions APPLICATION INSTRUCTIONS: groin Rx Instructions: SKIN ISSUES fluoxetine 10 mg capsule 20 mg PO DAILY Label Comments: TAKE 1 CAPSULE BY MOUTH EVERY DAY acetaminophen 325 MG tablet 650 mg PO Q6H PRN PRN (Reason: Pain Score 1-10/Temp > 100.7 F) 0RF furosemide 20 MG tablet 40 mg PO BID Label Comments: Diuretic (water pill) Primary Care Provider: Aliza Roman Referrals: Alzia Roman MD [Primary Care Provider] - 2 Days Disposition Disposition: Home, Self Care
[2022-02-14 13:23] LABS: Bacteria 0 SEEN /hpf (None Seen); Mucous, Urine 0 SEEN /hpf (<or=2+); Red Blood Cells-Urine 0 SEEN /hpf (0-5); Squamous Epithelial Cells - UA 0 SEEN /hpf (0-5); White Blood Cells 0 SEEN /hpf (0-5)
[2022-02-14 13:24] LABS: Absolute Lymphocyte Count 0.88 X10^3/uL (0.83-4.51); Absolute Neutrophil Count 9.8 X10^3/uL (2.0-7.7); Basophil# 0.05 X10^3/uL; Basophil% 0.4 % (0-1); Color, Urine Yellow (Yellow); Eosinophil# 0.14 X10^3/uL; Eosinophils% 1.2 % (0-5); Glucose, Dipstick 100 mg/dl (Normal); Hematocrit 45.6 % (40-54); Hemoglobin 14.8 g/dL (13.0-16.5); Ketone-Dipstick Negative (Negative); Leukocyte Esterase-Dipstick Negative /ul (Negative); Lymphocyte # 0.88 X10^3/ul (0.83-4.51); Lymphocyte % 7.6 % (19-41); Mean Corp Hgb Conc 32.5 g/dL (32-36); Mean Corpuscular Hgb 29.4 pg (27.0-32.0); Mean Corpuscular Volume 90.5 fL (80-94); Monocyte# 0.56 X10^3/uL; Monocyte% 4.8 % (0-10); NRBC Flagged by Analyzer 0 % (0-5); Neutrophil # 9.84 X10^3/uL (2.7-7.7); Neutrophil % 85.1 % (47-70); Nitrite-Dipstick Negative (Negative); Occult Blood-Urine Negative /ul (Negative); Platelet Count 200 K/mm3 (150-450); Protein-Dipstick 15 mg/dl (Negative); RBC Distribution Width CV 15.2 % (11.6-14.6); RBC Distribution Width SD 49.9 fl (35.1-43.9); Red Blood Count 5.04 M/mm3 (4.6-6.2); Urine Bilirubin Dipstick Negative (Negative); Urine Clarity Clear (Clear); Urine Urobilinogen Normal (Normal); White Blood Count 11.6 K/mm3 (4.4-11.0)
[2022-02-14 13:41] VITALS: BP 137/48; PULSE 137; RESP 23; O2SAT 94
[2022-02-14] MEDS: Acetaminophen 500 MG Tablet 1000 MG PO (13:44)
[2022-02-14] MEDS: 0.9% Normal Saline 1,000 ML 999 ML IV (13:45)
[2022-02-14] MEDS: Ketorolac 15 MG/ML Vial IV (13:45)
[2022-02-14 13:58] LABS: Partial Thromboplast Time 27.7 Seconds (24.1-36.2); Prothrombin Time (Protime)PT. 13.3 SECONDS (11.7-14.9)
[2022-02-14 14:05] LABS: ALB/GLOB Ratio 0.8 RATIO (0.9-2.4); AST(SGOT) 26 U/L (15-37); Alanine Aminotransfer ALT/SGPT 42 U/L (16-61); Albumin, Serum 3.5 g/dL (3.2-5.0); Alkaline Phosphatase 96 U/L (45-117); Anion Gap 7 (5-15); BUN 14 mg/dL (7-18); Calcium,Total 8.8 mg/dL (8.5-10.1); Chloride 105 mmol/L (98-107); Creatinine, Serum 0.82 mg/dL (0.70-1.30); EST Glomerular Filtration Rate 111 mL/min (>60); Est Glom Filt Rate - Afr Amer 134 mL/min (>60); Estimated Creatinine Clearance 103.28 ml/min; Globulin 4.5 g/dL (2.2-4.2); Glucose 198 mg/dL (74-106); Potassium 3.8 mmol/L (3.5-5.1); Sodium Level 139 mmol/L (136-145)
[2022-02-14 14:09] LABS: Lactic Acid 2.4 mmol/L (0.4-1.9)
[2022-02-14 15:03] VITALS: BP 96/47; PULSE 116; RESP 21; TEMP 36.4; O2SAT 93
[2022-02-14 16:06] VITALS: BP 117/87; PULSE 78; RESP 14; TEMP 36.4; TEMP 37.1; O2SAT 98
[2022-02-14] MEDS: Ceftriaxone 1 GM/50 ML BAG IV (16:22)
[2022-02-14 16:59] LABS: Lactic Acid 1.7 mmol/L (0.4-1.9)
[2022-02-14 17:44] LABS: Reflex Lactate? Y
[2022-02-14 18:00] VITALS: BP 92/55
[2022-02-14 18:46] VITALS: BP 92/60; PULSE 107; RESP 20; TEMP 36.6; O2SAT 94
== END 2022-02-14 18:58 | disposition home or self-care (01) ==
PROVIDERS: Emergency Provider Emergency Medicine; PCP Family Medicine; Visit Provider Emergency Medicine
DX: R50.9 Fever, unspecified (principal); E66.01 Morbid (severe) obesity due to excess calories; G40.909 Epilepsy, unspecified, not intractable, without status epilepticus; E11.9 Type 2 diabetes mellitus without complications; R06.02 Shortness of breath; R05.9 Cough, unspecified; I10 Essential (primary) hypertension; R21 Rash and other nonspecific skin eruption; K21.9 Gastro-esophageal reflux disease without esophagitis; G47.33 Obstructive sleep apnea (adult) (pediatric); J45.909 Unspecified asthma, uncomplicated; R06.00 Dyspnea, unspecified; F32.A Depression, unspecified; M10.9 Gout, unspecified; Z99.81 Dependence on supplemental oxygen
CPT/HCPCS: 71045; 80053; 81001; 83605; 85025; 85610; 85730; 87040; 87077; 87086; 87088; 87186; 87428; 93005; 96361; 96365; 96367; 96375; 99285

== ENCOUNTER 2022-05-02 21:04 | Emergency (ER) | payer MEDICARE, MEDICAID, SELFPAY ==
[2022-05-02 21:05] VITALS: BP 168/102; PULSE 103; RESP 24; TEMP 36.5; BMI 60.5
[2022-05-02 21:07] VITALS: BP 168/102; PULSE 103; RESP 24; TEMP 36.5
--- NOTE | 2022-05-02 21:28 | RAD_ITS ---
STUDY: X-RAY - RIGHT HAND REASON FOR EXAM: Male, 36 years old. pain TECHNIQUE: 3 view(s) of the hand. COMPARISON: None. FINDINGS: Normal radiocarpal articulation. Normal distal radioulnar joint. Normal visualized carpal bones. Normal carpal articulations Normal carpometacarpal articulation of the thumb. Normal second through fifth carpometacarpal joints. Normal metacarpi. Normal metacarpophalangeal joint of the thumb. Normal interphalangeal joint of the thumb. Normal proximal and distal phalanges of the thumb. Normal metacarpophalangeal joints of the second through fifth fingers. Normal proximal and distal interphalangeal joints of the second through fifth fingers. Normal phalanges of the second through fifth fingers. The soft tissue structures are unremarkable. RAD/Hand Min 3 Views IMPRESSION: Normal x-ray examination of the hand. Electronically Signed: Daniel Birmingham MD at 22:18 EDT ,
--- NOTE | 2022-05-02 21:31 | EX.ED.UPPERE ---
HPI History of Present Illness Chief Complaint: Upper Extremity Injury Narrative Narrative: Patient presents with nontraumatic swelling of the right hand for 2 days. No fever or chills he noticed some redness. He has a history of gout although he has never had gout in his hand or wrist. He has no wrist pain. No fevers or chills [facility] Medical History (Updated 05/02/22 @ 21:[address] Souleymane Allen MD) Benign hypertension Bronchial asthma Chest pain Depression GERD (gastroesophageal reflux disease) Gout History of bronchitis History of cerebral palsy History of pneumonia Hypertension Obstructive sleep apnea Seizure disorder Super obesity Type II diabetes mellitus Vertigo Home Medications allopurinol 300 mg tablet 300 mg PO DAILY gout 06/09/15 [History Last Taken 04/13/20 08:00] nebivolol 10 mg tablet 10 mg PO DAILY heart 06/09/15 [History Last Taken 04/13/20 08:00] montelukast 10 mg tablet 10 mg PO DAILY allergies 01/26/16 [History Last Taken 04/13/20 16:00] albuterol sulfate 90 mcg/actuation aerosol inhaler 18 gm IH Q4H PRN PRN Sob &/Or Wheezing 05/07/16 [History Last Taken 04/12/20 20:00] guaifenesin 1,200 mg tablet, extended release 12 hr 1,000 mg PO BID PRN Congestion 01/24/17 [History Last Taken Unknown] baclofen 20 mg tablet 20 mg PO DAILY muscle spasms 06/25/18 [History Last Taken 04/13/20 16:00] pantoprazole 40 mg tablet,delayed release 40 mg PO DAILY gi 06/25/18 [History Last Taken 04/13/20 08:00] potassium 99 mg tablet 1,080 mg PO DAILY supplement 06/25/18 [History Last Taken 04/13/20 08:00] fluticasone propionate 50 mcg/actuation nasal spray,suspension 2 spray intranasal DAILY allergies #48 grams 03/23/19 [History Last Taken 04/13/20 08:00] metformin 500 mg tablet,extended release 24 hr 1,000 mg PO BID diabetes 03/23/19 [History Last Taken 04/13/20 16:00] levetiracetam 500 mg tablet 500 mg PO BID seizures 01/28/20 [History Last Taken 04/13/20 16:00] multivitamin with minerals 1 tab PO DAILY vitamin 01/28/20 [History Last Taken 04/13/20 08:00] nystatin 100,000 unit/gram topical powder 1 applic topical TID #1 BOTTLE 01/30/20 [Rx Last Taken 04/12/20] acetaminophen 325 mg tablet 650 mg PO Q6H PRN PRN Pain Score 1-10/Temp > 100.7 F 04/14/20 [Rx Last Taken Unknown] fluoxetine 10 mg capsule 20 mg PO DAILY depression 08/15/20 [History Last Taken Unknown] budesonide-formoterol HFA 160 mcg-4.5 mcg/actuation aerosol inhaler (Symbicort) 2 puff inhalation BID #1 ea 11/07/20 [Rx Last Taken Unknown] furosemide 20 mg tablet 40 mg PO BID diuretic 10/13/21 [History Last Taken Unknown] colchicine 0.6 mg tablet ea PO 12/02/21 [History Last Taken Unknown] liraglutide 0.6 mg/0.1 mL (18 mg/3 mL) subcutaneous pen injector ml subcut 12/02/21 [History Last Taken Unknown] doxycycline hyclate 100 mg capsule 100 mg PO BID #20 caps 05/02/22 [Rx Last Taken Unknown] Allergy/AdvReac Type Severity Reaction Status Date / Time grass pollen Allergy Other Verified 03/25/22 16:38 house dust Allergy Other Verified 03/25/22 16:38 pollen extracts Allergy Other Verified 03/25/22 16:38 bird dander Allergy Intermediate Chest Uncoded 02/27/22 13:41 tightness Family History Father Chronic a-fib CVA (cerebral vascular accident) Mother ROBERT (obstructive sleep apnea) Breast cancer Grandfather Cancer bladder Other Diabetes Surgical History H/O eye surgery H/O hernia repair S/P PREBOARDER shunt Social History Smoking Status: Never smoker ROS ROS ED ROS Narrative Past medical history: Type 2 diabetes, obesity, ROBERT, gout Medications: Reviewed Social history: Noncontributory Review of systems: Musculoskeletal: Right hand pain Skin: No abrasions or lacerations Neurological: No weakness or paresthesias Hematologic: No easy bleeding or easy bruising EXAM Physical Exam Narrative Exam Narrative: Physical exam General: Patient does not appear in significant distress . Head: Normocephalic, Atraumatic Neck: No C-spine tenderness Cardiovascular: Normal distal pulses Back: Nontender, Normal Inspection. Extremities: Right hand shows slight dorsal swelling and very slight erythema, no tenderness in the wrist no effusion no other joint pain. Normal strength and sensation. Skin: No abrasions, no lacerations Neurological: Normal strength and sensation Const Vital Signs: 05/02/22 21:05 05/02/22 21:07 Temperature 97.7 F L 97.7 F L Temperature Source Temporal Temporal Pulse Rate 103 H 103 H Respiratory Rate 24 H 24 H Blood Pressure 168/102 H 168/102 H Blood Pressure Mean 124 124 MDM MDM Radiography Diagnostic Testing: Right hand x-ray read by me is negative Treatment and Re-Evaluation Narrative: Patient likely has early cellulitis will be treated with antibiotics if anything worsens he is to return. Discharge Plan Triage Chief Complaint: Upper Extremity Injury ED Provider: Souleymane Allen Dx/Rx/DC Orders Clinical Impression: Type II diabetes mellitus, Cellulitis Instructions: Cellulitis Dc Prescriptions: New doxycycline hyclate 100 mg capsule 100 mg PO BID Qty: 20 0RF No Action fluticasone propionate 50 mcg/actuation spray,suspension 2 spray INTRANASAL DAILY Qty: 48 Label Comments: USE 2 SPRAYS IN EACH NOSTRIL DAILY budesonide-formoterol [Symbicort] 160-4.5 mcg/actuation HFA aerosol inhaler 2 puff INHALATION BID Qty: 1 3RF Rx Instructions: administer with spacer, rinse mouth after each use colchicine 0.6 mg tablet PO Label Comments: take 1 tablet by mouth every 6 hours if needed for GOUT FLARE Victoza 3-Foster 0.6 mg/0.1 mL (18 mg/3 mL) pen injector subcut Label Comments: inject 1.8 milligram subcutaneously daily allopurinol 300 MG tablet 300 mg PO DAILY Label Comments: gout nebivolol 10 MG tablet 10 mg PO DAILY Label Comments: blood pressure metformin 500 mg tablet extended release 24 hr 1,000 mg PO BID Label Comments: diabetes montelukast 10 MG tablet 10 mg PO DAILY Label Comments: allergy med albuterol sulfate 18 GM HFA aerosol inhaler 18 gm IH Q4H PRN PRN (Reason: Sob &/Or Wheezing) Label Comments: inhaler guaifenesin 1,200 MG tablet 1,000 mg PO BID PRN (Reason: Congestion) baclofen 20 MG tablet 20 mg PO DAILY potassium 99 MG tablet 1,080 mg PO DAILY pantoprazole 40 MG tablet 40 mg PO DAILY multivitamin with minerals 1 EACH tablet 1 tab PO DAILY levetiracetam 500 MG tablet 500 mg PO BID Label Comments: seizure nystatin 1 APPLIC bottle 1 applic TOPICAL TID Qty: 1 0RF Protocol: *Topical Application Instructions APPLICATION INSTRUCTIONS: groin Rx Instructions: SKIN ISSUES fluoxetine 10 mg capsule 20 mg PO DAILY Label Comments: TAKE 1 CAPSULE BY MOUTH EVERY DAY acetaminophen 325 MG tablet 650 mg PO Q6H PRN PRN (Reason: Pain Score 1-10/Temp > 100.7 F) 0RF furosemide 20 MG tablet 40 mg PO BID Label Comments: Diuretic (water pill) Primary Care Provider: Aliza Roman Referrals: Aliza Roman MD [Primary Care Provider] - 2 Days for wound check Disposition Disposition: Home, Self Care
[2022-05-02] MEDS: Doxycycline 100 MG CAPSULE PO (21:56)
[2022-05-02 21:59] VITALS: BP 142/84; PULSE 88; RESP 49; O2SAT 98
== END 2022-05-02 22:00 | disposition home or self-care (01) ==
PROVIDERS: Emergency Provider Emergency Medicine; PCP Family Medicine; Visit Provider Emergency Medicine
DX: L03.113 Cellulitis of right upper limb (principal); E11.9 Type 2 diabetes mellitus without complications; I10 Essential (primary) hypertension; G47.33 Obstructive sleep apnea (adult) (pediatric); M10.9 Gout, unspecified
CPT/HCPCS: 73130; 99282

== ENCOUNTER 2023-01-13 13:02 | Emergency (ER) | payer MEDICARE, MEDICAID, SELFPAY ==
[2023-01-13 13:03] VITALS: BP 152/95; PULSE 100; RESP 16; TEMP 36.6; O2SAT 96
--- NOTE | 2023-01-13 13:07 | RAD_ITS ---
STUDY: X-RAY - PELVIS AND LEFT HIP REASON FOR EXAM: Male, 37 years old. FALL TECHNIQUE: 3 views of the pelvis and hip. COMPARISON: December 02, [address] pelvis [address] left hip[address] pelvis October 13, 2021 FINDINGS: There is a non-specific bowel gas pattern. Normal visualized soft tissue structures. Normal bilateral iliac wings, sacroiliac joints and visualized sacrum. Normal bilateral superior and inferior pubic rami. Normal pubic symphysis. Normal bilateral ischial tuberosities. There is a stable appearance of the bilateral hip joints. There is apparent bilateral hip dysplasia. There is a slight flattened appearance of the bilateral humeral heads and a fat widened appearance of the femoral necks. There is also a proximal migration of the left hip stable since prior study. Visualized subchondral cyst formation and/or chronic erosion of the superior aspect of the left acetabulum stable since prior study. RAD/HIP, UNI W/ Pelvis 2-3 Views IMPRESSION: No visualized fracture .. Stable bilateral hip dysplasia as described on prior study. Could consider follow-up MRI especially of the left hip if clinically appropriate. Electronically Signed: Vaishali Malcolm MD at 14:17 EDT ,
--- NOTE | 2023-01-13 15:49 | EDS_ITS ---
HPI History of Present Illness Chief Complaint: Lower Extremity Injury Informant: patient Narrative Narrative: Patient presents with pain near his left hip. Patient has known hip dysplasia on both sides so he always has some discomfort. He also has some cerebral palsy affecting his left lower extremity so he always has some weakness there. He was playing volleyball over the weekend. He fell onto his buttock to avoid hitting the neck. He states it really did not hurt at the time. But later that evening he started to get soreness in his left hip and he has noticed this just slowly increased a little bit. Is worse with weightbearing and is better with rest. No fevers or chills. No secondary trauma. All the pain is in the left inguinal area which is where he normally has pain when his hip hurts. No nausea vomiting abdominal pain change in bowel habits or difficulty urinating. No fullness or swelling in that area. [facility] Medical History (Updated 01/13/23 @ 15:[address] Asif Mast MD) Benign hypertension Bronchial asthma Chest pain Depression GERD (gastroesophageal reflux disease) Gout History of bronchitis History of cerebral palsy History of pneumonia Hypertension Obstructive sleep apnea Seizure disorder Super obesity Type II diabetes mellitus Vertigo Home Medications allopurinol 300 mg tablet 300 mg PO DAILY gout 06/09/15 [History Last Taken 04/13/20 08:00] nebivolol 10 mg tablet 10 mg PO DAILY heart 06/09/15 [History Last Taken 04/13/20 08:00] guaifenesin 1,200 mg tablet, extended release 12 hr 1,000 mg PO BID PRN Congestion 01/24/17 [History Last Taken Unknown] baclofen 20 mg tablet 20 mg PO DAILY muscle spasms 06/25/18 [History Last Taken 04/13/20 16:00] pantoprazole 40 mg tablet,delayed release 40 mg PO DAILY gi 06/25/18 [History Last Taken 04/13/20 08:00] potassium 99 mg tablet 1,080 mg PO DAILY supplement 06/25/18 [History Last Taken 04/13/20 08:00] metformin 500 mg tablet,extended release 24 hr 1,000 mg PO BID diabetes 03/23/19 [History Last Taken 04/13/20 16:00] levetiracetam 500 mg tablet 500 mg PO BID seizures 01/28/20 [History Last Taken 04/13/20 16:00] multivitamin with minerals 1 tab PO DAILY vitamin 01/28/20 [History Last Taken 04/13/20 08:00] nystatin 100,000 unit/gram topical powder 1 applic topical TID #1 BOTTLE 01/30/20 [Rx Last Taken 04/12/20] acetaminophen 325 mg tablet 650 mg PO Q6H PRN PRN Pain Score 1-10/Temp > 100.7 F 04/14/20 [Rx Last Taken Unknown] fluoxetine 10 mg capsule 20 mg PO DAILY depression 08/15/20 [History Last Taken Unknown] furosemide 20 mg tablet 40 mg PO BID diuretic 10/13/21 [History Last Taken Unknown] colchicine 0.6 mg tablet ea PO 12/02/21 [History Last Taken Unknown] liraglutide 0.6 mg/0.1 mL (18 mg/3 mL) subcutaneous pen injector ml subcut 12/02/21 [History Last Taken Unknown] albuterol sulfate 2.5 mg/3 mL (0.083 %) solution for nebulization 2.5 mg (3 mL) inhalation Q4H PRN shortness of breath or wheezing #180 mL 01/05/23 [Rx Last Taken Unknown] albuterol sulfate 90 mcg/actuation aerosol inhaler 2 inh inhalation Q4H PRN PRN Sob &/Or Wheezing #8.5 grams 01/05/23 [Rx Last Taken Unknown] budesonide-formoterol HFA 160 mcg-4.5 mcg/actuation aerosol inhaler (Symbicort) 2 puff inhalation BID #10.2 grams 01/05/23 [Rx Last Taken Unknown] fluticasone propionate 50 mcg/actuation nasal spray,suspension 2 spray intranasal DAILY allergies #16 grams 01/05/23 [Rx Last Taken Unknown] montelukast 10 mg tablet 10 mg PO DAILY allergies #90 tabs 01/05/23 [Rx Last Taken Unknown] spacer #1 ea 01/05/23 [Rx Last Taken Unknown] hydrocodone-acetaminophen 5-325mg 5mg-325mg 1 tab PO Q6H PRN PRN Pain 3 days #10 TABLETS 01/13/23 [Rx Last Taken Unknown] Allergy/AdvReac Type Severity Reaction Status Date / Time animal dander Allergy Chest Verified 01/13/23 13:06 tightness grass pollen Allergy Other Verified 01/13/23 13:06 house dust Allergy Other Verified 01/13/23 13:06 pollen extracts Allergy Other Verified 01/13/23 13:06 Family History Father Chronic a-fib CVA (cerebral vascular accident) Mother ROBERT (obstructive sleep apnea) Breast cancer Grandfather Cancer bladder Other Diabetes Surgical History H/O eye surgery H/O hernia repair S/P WRAPPER LEAF INSPECTOR shunt Social History Smoking Status: Never smoker ROS ROS ED Constitutional Constitutional ED: Denies chills, fever(s) or subjective Cardiovascular Cardiovascular: Denies chest pain or palpitations Respiratory/Chest Respiratory/Chest: Denies cough Gastrointestinal Gastrointestinal: Denies nausea or vomiting Genitourinary Genitourinary ED: Denies dysuria, hematuria or urinary frequency Musculoskeletal Musculoskeletal: Reports arthralgias; Denies back pain, myalgias or neck pain Integumentary Denies Abrasions or rash Neurologic Neurologic: Denies headache(s), paresthesias or weakness Allergic/Immunologic Allergic/Immunologic ED: Denies urticaria EXAM Physical Exam Narrative Exam Narrative: Patient awake alert no acute distress pleasant sitting in chair in triage room. HEENT shows no sign of trauma Neck is supple Heart is regular Lungs are clear bilaterally. No difficulty breathing. O2 saturation 96% on room air showing no hypoxia. Abdomen is obese but benign Extremities show somewhat thin left extremity. There is no edema. No distended veins. He is not somewhat tender but moving the hip causes some discomfort for him. He states mostly it hurts when he bears weight. There is no notable pain with passive range of motion that would make me think this is infectious. No deformities or bruising. Const Vital Signs: 01/13/23 13:03 Temperature 98 F Temperature Source Temporal Pulse Rate 100 Respiratory Rate 16 Blood Pressure 152/95 H Blood Pressure Mean 114 Pulse Ox 96 Oxygen Delivery Method Room Air MDM MDM MDM Narrative Medical decision making narrative: My independent interpretation the patient's three-view x-ray of the left hip shows no sign of fracture or dislocation. There is sign of dysplasia on both sides but more on the left. Final reading is similar. Patient's been trying Aleve is not working. I will write for some stronger meds. He has absolutely no controlled substances on his online prescribing report when that was accessed and reviewed. We discussed returning with fevers worsening pain or any other concerns. All questions were answered Radiography Diagnostic Testing: Clinical Impression(s) from Imaging Studies Hip/Pelvis X-Ray 01/13/23 13:07 IMPRESSION: No visualized fracture .. Stable bilateral hip dysplasia as described on prior study. Could consider follow-up MRI especially of the left hip if clinically appropriate. Electronically Signed: Vaishali Malcolm MD at 14:17 EDT , Discharge Plan Triage Chief Complaint: Lower Extremity Injury ED Provider: Asif Mast Dx/Rx/DC Orders Clinical Impression: Contusion of hip, left, Fall from slipping, Hip dysplasia Instructions: ED Hip Contusion Prescriptions: New hydrocodone-acetaminophen [hydrocodone-acetaminophen] 5-325 mg tablet 1 tab PO Q6H PRN PRN (Reason: Pain) 3 Days Qty: 10 0RF No Action colchicine 0.6 mg tablet PO Label Comments: take 1 tablet by mouth every 6 hours if needed for GOUT FLARE Victoza 3-Foster 0.6 mg/0.1 mL (18 mg/3 mL) pen injector subcut Label Comments: inject 1.8 milligram subcutaneously daily albuterol sulfate 2.5 mg /3 mL (0.083 %) solution for nebulization 2.5 mg inhalation Q4H PRN (Reason: shortness of breath or wheezing) Qty: 180 11RF albuterol sulfate 90 mcg/actuation HFA aerosol inhaler 2 inh inhalation Q4H PRN PRN (Reason: Sob &/Or Wheezing) Qty: 8.5 11RF budesonide-formoterol [Symbicort] 160-4.5 mcg/actuation HFA aerosol inhaler 2 puff inhalation BID Qty: 10.2 11RF montelukast 10 mg tablet 10 mg PO DAILY Qty: 90 3RF fluticasone propionate 50 mcg/actuation spray,suspension 2 spray INTRANASAL DAILY Qty: 16 11RF (DME) spacer See Rx Instructions .ROUTE .MEDSUPPLY Qty: 1 0RF Rx Instructions: As directed allopurinol 300 MG tablet 300 mg PO DAILY Label Comments: gout nebivolol 10 MG tablet 10 mg PO DAILY Label Comments: blood pressure metformin 500 mg tablet extended release 24 hr 1,000 mg PO BID Label Comments: diabetes guaifenesin 1,200 MG tablet 1,000 mg PO BID PRN (Reason: Congestion) baclofen 20 MG tablet 20 mg PO DAILY potassium 99 MG tablet 1,080 mg PO DAILY pantoprazole 40 MG tablet 40 mg PO DAILY multivitamin with minerals 1 EACH tablet 1 tab PO DAILY levetiracetam 500 MG tablet 500 mg PO BID Label Comments: seizure nystatin 1 APPLIC bottle 1 applic TOPICAL TID Qty: 1 0RF Protocol: *Topical Application Instructions APPLICATION INSTRUCTIONS: groin Rx Instructions: SKIN ISSUES fluoxetine 10 mg capsule 20 mg PO DAILY Label Comments: TAKE 1 CAPSULE BY MOUTH EVERY DAY acetaminophen 325 MG tablet 650 mg PO Q6H PRN PRN (Reason: Pain Score 1-10/Temp > 100.7 F) 0RF furosemide 20 MG tablet 40 mg PO BID Label Comments: Diuretic (water pill) Primary Care Provider: Aliza Roman Referrals: Aliza Roman MD [Primary Care Provider] - 3-5 Days Disposition Disposition: Home, Self Care
== END 2023-01-13 16:18 | disposition home or self-care (01) ==
LOC: ED 15:56
PROVIDERS: Emergency Provider Emergency Medicine; PCP Family Medicine; Visit Provider Emergency Medicine
DX: S70.02XA Contusion of left hip, initial encounter (principal); G40.909 Epilepsy, unspecified, not intractable, without status epilepticus; E11.9 Type 2 diabetes mellitus without complications; Z79.4 Long term (current) use of insulin; Q65.89 Other specified congenital deformities of hip; I10 Essential (primary) hypertension; Y93.68 Activity, volleyball (beach) (court); W19.XXXA Unspecified fall, initial encounter; M10.9 Gout, unspecified; K21.9 Gastro-esophageal reflux disease without esophagitis; Z79.899 Other long term (current) drug therapy; Z79.84 Long term (current) use of oral hypoglycemic drugs; F32.A Depression, unspecified; Z79.52 Long term (current) use of systemic steroids
CPT/HCPCS: 73502; 99284

== ENCOUNTER → 2023-01-30 | Outpatient (CLI) | payer MEDICARE, MEDICAID, SELFPAY ==
[2023-01-30 08:11] LABS: ALB/GLOB Ratio 0.8 RATIO (0.9-2.4); AST(SGOT) 28 U/L (15-37); Alanine Aminotransfer ALT/SGPT 42 U/L (16-61); Albumin, Serum 3.2 g/dL (3.2-5.0); Alkaline Phosphatase 86 U/L (45-117); Anion Gap 8 (5-15); BUN 14 mg/dL (7-18); Calcium,Total 8.5 mg/dL (8.5-10.1); Chloride 104 mmol/L (98-107); Cholesterol 180 mg/dL (200); Creatinine, Serum 0.67 mg/dL (0.70-1.30); EST Glomerular Filtration Rate 142 mL/min (>60); Est Glom Filt Rate - Afr Amer 171 mL/min (>60); Globulin 4.2 g/dL (2.2-4.2); Glucose 177 mg/dL (74-106); High Density Lipoprotein 37 mg/dL; Protein, Total 7.4 g/dL (6.4-8.2); Sodium Level 138 mmol/L (136-145); Triglycerides 304 mg/dL; Very Low Density Lipoprotein 61 mg/dL (5-40)
== END | disposition home or self-care (01) ==
PROVIDERS: PCP Family Medicine; Referring Provider Family Medicine; Visit Provider Family Medicine
DX: E11.9 Type 2 diabetes mellitus without complications (principal); I10 Essential (primary) hypertension
CPT/HCPCS: 36415; 80053; 80061

== ENCOUNTER → 2023-02-02 | Outpatient (CLI) | payer MEDICARE, MEDICAID, SELFPAY ==
--- NOTE | 2023-02-02 17:30 | CT_ITS ---
EXAM: CT LEFT LOWER EXTREMITY WITHOUT INTRAVENOUS CONTRAST CLINICAL INDICATION: Pain after fall -- Cannot have MRI due to shunt TECHNIQUE: Helically acquired images were obtained of the left lower extremity without intravenous contrast. 2-D reformats were performed by the technologist. CTDIvol = ( 48.72 ) mGy, DLP = ( 1885.96 ) mGycm This CT exam was performed using one or more of the following dose reduction techniques: automated exposure control, adjustment of the mA and/or kV according to patient size, and/or use of iterative reconstruction technique. COMPARISON: No relevant prior studies available. FINDINGS: BONES/JOINTS: Dysplastic appearance of the left hip with secondary degenerative changes of moderate severity including prominent subchondral cyst at the acetabular roof. No acute or healing fracture or malalignment. SOFT TISSUES: Small right inguinal hernia containing fat and ovoid soft tissue/fluid measuring approximately 3.0 x 2.5 cm. No soft tissue swelling or gas. No radiopaque foreign body. OTHER FINDINGS: No bowel herniation. CT/Extremity Lower without Contra IMPRESSION: 1. No acute or healing fracture or malalignment. 2. Small right inguinal hernia containing fat and ovoid soft tissue/fluid measuring approximately 3.0 x 2.5 cm. No bowel herniation. Electronically Signed: Jason Grover MD at 23:45 EDT ,
== END | disposition home or self-care (01) ==
LOC: CT 17:26
PROVIDERS: PCP Family Medicine
DX: Q65.89 Other specified congenital deformities of hip (principal)
CPT/HCPCS: 73700

== ENCOUNTER 2023-02-15 10:04 | Emergency (ER) | payer MEDICARE, MEDICAID, SELFPAY ==
[2023-02-15 10:05] VITALS: BP 135/95; PULSE 96; RESP 16; TEMP 36.6; O2SAT 94; BMI 57.4
[2023-02-15 10:36] LABS: Absolute Lymphocyte Count 2.26 X10^3/uL (0.83-4.51); Absolute Neutrophil Count 5.9 X10^3/uL (2.0-7.7); Basophil# 0.06 X10^3/uL; Basophil% 0.7 % (0-1); Eosinophil# 0.29 X10^3/uL; Eosinophils% 3.2 % (0-5); Hematocrit 47.1 % (40-54); Hemoglobin 15.3 g/dL (13.0-16.5); Lymphocyte # 2.26 X10^3/ul (0.83-4.51); Lymphocyte % 24.8 % (19-41); Mean Corp Hgb Conc 32.5 g/dL (32-36); Mean Corpuscular Hgb 28.5 pg (27.0-32.0); Mean Corpuscular Volume 87.9 fL (80-94); Mean Platelet Vol. 11.1 fl (6.2-12.0); Monocyte# 0.58 X10^3/uL; Monocyte% 6.4 % (0-10); NRBC Flagged by Analyzer 0 % (0-5); Neutrophil # 5.88 X10^3/uL (2.7-7.7); Neutrophil % 64.2 % (47-70); Platelet Count 196 K/mm3 (150-450); RBC Distribution Width CV 15.5 % (11.6-14.6); RBC Distribution Width SD 48.9 fl (35.1-43.9); Red Blood Count 5.36 M/mm3 (4.6-6.2); White Blood Count 9.1 K/mm3 (4.4-11.0)
--- NOTE | 2023-02-15 10:44 | CT_ITS ---
STUDY: CT ABDOMEN AND PELVIS WITH CONTRAST REASON FOR EXAM: Male, 37 years old. DX WITH HERNIA LAST WEEK, PAIN TODAY LT SIDE, HTN, GERD, DB,shunt d/t hydrocephalus-CEREBRAL PALSY RADIATION DOSAGE (If Supplied By Facility): CTDIvol = ( 24.26 ) mGy, DLP = ( 1777.75 ) mGycm TECHNIQUE: Transaxial images were obtained from the dome of the diaphragm to the symphysis pubis without oral contrast. ml of 100mL Isovue-370 contrast was administered. Sagittal and coronal images were reconstructed. Individualized dose optimization techniques were used for this CT. COMPARISON: None. FINDINGS: The visualized lung bases are unremarkable. The visualized portions of the heart are within normal limits. Right-sided TERRITORY SERVICE REPRESENTATIVE shunt catheter tubing terminates in the mid anterior abdominal region. There is decreased attenuation of the liver consistent with steatosis. Normal gallbladder and extrahepatic biliary system. Normal spleen. Normal pancreas. Normal bilateral adrenal glands. Normal right kidney. Normal left kidney. Normal visualized stomach. Normal small intestine. Normal colon. There is non-visualization of the appendix. No bowel dilatation or evidence of obstruction. No fluid collections or free air is present. No inflammatory stranding is seen. Normal abdominal aorta. Normal inferior vena cava. Normal retroperitoneum. Normal urinary bladder. Normal abdominal wall. Normal osseous structures. CT/Abdomen/Pelvis W IV Cont ONLY IMPRESSION: 1. No acute process of the abdomen and pelvis. 2. No bowel dilatation or evidence of obstruction. No fluid collections or free air is present. No inflammatory stranding is seen. Electronically Signed: Antonio Swan MD at 12:23 EDT ,
[2023-02-15 10:49] LABS: ALB/GLOB Ratio 0.8 RATIO (0.9-2.4); AST(SGOT) 24 U/L (15-37); Alanine Aminotransfer ALT/SGPT 48 U/L (16-61); Albumin, Serum 3.4 g/dL (3.2-5.0); Alkaline Phosphatase 96 U/L (45-117); Anion Gap 9 (5-15); BUN 16 mg/dL (7-18); BUN/Creat Ratio 21.9 RATIO (10-20); Calcium,Total 8.8 mg/dL (8.5-10.1); Chloride 103 mmol/L (98-107); Creatinine, Serum 0.73 mg/dL (0.70-1.30); EST Glomerular Filtration Rate 127 mL/min (>60); Est Glom Filt Rate - Afr Amer 154 mL/min (>60); Estimated Creatinine Clearance 114.89 ml/min; Globulin 4.4 g/dL (2.2-4.2); Glucose 151 mg/dL (74-106); Lipase 26 U/L (13-75); Potassium 3.9 mmol/L (3.5-5.1); Protein, Total 7.8 g/dL (6.4-8.2); Sodium Level 140 mmol/L (136-145)
[2023-02-15 10:49] LABS: Bacteria 0 SEEN /hpf (None Seen); Mucous, Urine 0 SEEN /hpf (<or=2+); Red Blood Cells-Urine 0 SEEN /hpf (0-5); Squamous Epithelial Cells - UA 0 SEEN /hpf (0-5); White Blood Cells 0 SEEN /hpf (0-5)
[2023-02-15 10:52] LABS: Color, Urine Yellow (Yellow); Glucose, Dipstick 1000 mg/dl (Normal); Ketone-Dipstick Negative (Negative); Leukocyte Esterase-Dipstick Negative /ul (Negative); Nitrite-Dipstick Negative (Negative); Occult Blood-Urine Negative /ul (Negative); Protein-Dipstick Negative (Negative); Specific Gravity, Urine 1.015 (1.002-1.030); Urine Bilirubin Dipstick Negative (Negative); Urine Clarity Clear (Clear); Urine Urobilinogen Normal (Normal)
[2023-02-15 11:09] LABS: Lactic Acid 1.3 mmol/L (0.4-1.9)
--- NOTE | 2023-02-15 11:42 | ED.VIS.GI ---
HPI HPI - GI History of Present Illness Chief Complaint: Abd Pain Narrative Narrative: Patient presenting with left lower quadrant abdominal pain. Patient states it started today when he was at [employer]. He stood up and felt this pain. He states that when he sits still it is better. Denies diarrhea or constipation. Denies fever or chills. Denies urinary complaints. Denies history of kidney stones. Patient does state that he had recently injured his hip and had a CT of it and they noted that he had a hernia. He wanted to make sure this was not a hernia pain. He did not feel a pop when he stood up. He states he has no nausea. [facility] Medical History Benign hypertension Bronchial asthma Chest pain Depression GERD (gastroesophageal reflux disease) Gout History of bronchitis History of cerebral palsy History of pneumonia Hypertension Obstructive sleep apnea Seizure disorder Super obesity Type II diabetes mellitus Vertigo Home Medications allopurinol 300 mg tablet 300 mg PO DAILY gout 06/09/15 [History Last Taken 04/13/20 08:00] nebivolol 10 mg tablet 10 mg PO DAILY heart 06/09/15 [History Last Taken 04/13/20 08:00] guaifenesin 1,200 mg tablet, extended release 12 hr 1,000 mg PO BID PRN Congestion 01/24/17 [History Last Taken Unknown] baclofen 20 mg tablet 20 mg PO DAILY muscle spasms 06/25/18 [History Last Taken 04/13/20 16:00] pantoprazole 40 mg tablet,delayed release 40 mg PO DAILY gi 06/25/18 [History Last Taken 04/13/20 08:00] potassium 99 mg tablet 1,080 mg PO DAILY supplement 06/25/18 [History Last Taken 04/13/20 08:00] levetiracetam 500 mg tablet 500 mg PO BID seizures 01/28/20 [History Last Taken 04/13/20 16:00] multivitamin with minerals 1 tab PO DAILY vitamin 01/28/20 [History Last Taken 04/13/20 08:00] nystatin 100,000 unit/gram topical powder 1 applic topical TID #1 BOTTLE 01/30/20 [Rx Last Taken 04/12/20] acetaminophen 325 mg tablet 650 mg PO Q6H PRN PRN Pain Score 1-10/Temp > 100.7 F 04/14/20 [Rx Last Taken Unknown] fluoxetine 10 mg capsule 20 mg PO DAILY depression 08/15/20 [History Last Taken Unknown] furosemide 20 mg tablet 40 mg PO BID diuretic 10/13/21 [History Last Taken Unknown] colchicine 0.6 mg tablet ea PO 12/02/21 [History Last Taken Unknown] liraglutide 0.6 mg/0.1 mL (18 mg/3 mL) subcutaneous pen injector ml subcut 12/02/21 [History Last Taken Unknown] albuterol sulfate 2.5 mg/3 mL (0.083 %) solution for nebulization 2.5 mg (3 mL) inhalation Q4H PRN shortness of breath or wheezing #180 mL 01/05/23 [Rx Last Taken Unknown] albuterol sulfate 90 mcg/actuation aerosol inhaler 2 inh inhalation Q4H PRN PRN Sob &/Or Wheezing #8.5 grams 01/05/23 [Rx Last Taken Unknown] budesonide-formoterol HFA 160 mcg-4.5 mcg/actuation aerosol inhaler (Symbicort) 2 puff inhalation BID #10.2 grams 01/05/23 [Rx Last Taken Unknown] fluticasone propionate 50 mcg/actuation nasal spray,suspension 2 spray intranasal DAILY allergies #16 grams 01/05/23 [Rx Last Taken Unknown] montelukast 10 mg tablet 10 mg PO DAILY allergies #90 tabs 01/05/23 [Rx Last Taken Unknown] spacer #1 ea 01/05/23 [Rx Last Taken Unknown] dapagliflozin propanediol 5 mg tablet (Farxiga) 5 mg PO DAILY 01/22/23 [History Last Taken Unknown] Allergy/AdvReac Type Severity Reaction Status Date / Time animal dander Allergy Chest Verified 01/21/23 13:01 tightness grass pollen Allergy Other Verified 01/21/23 13:01 house dust Allergy Other Verified 01/21/23 13:01 pollen extracts Allergy Other Verified 01/21/23 13:01 Family History Father Chronic a-fib CVA (cerebral vascular accident) Mother ROBERT (obstructive sleep apnea) Breast cancer Grandfather Cancer bladder Other Diabetes Surgical History H/O eye surgery H/O hernia repair S/P WARP PLACER shunt Social History Smoking Status: Never smoker ROS ROS ED Constitutional Constitutional ED: Denies chills, fever(s) or sweats Eyes Eyes: Denies blurry vision or change in vision ENT ENT ED: Denies ear pain or sore throat Cardiovascular Cardiovascular: Denies chest pain, palpitations or racing heartbeat Respiratory/Chest Respiratory/Chest: Denies cough, dyspnea or sputum Gastrointestinal Gastrointestinal: Reports abdominal pain; Denies constipation, diarrhea, nausea or vomiting Genitourinary Genitourinary ED: Denies dysuria, hematuria or urinary frequency Musculoskeletal Musculoskeletal: Denies arthralgias, myalgias or neck pain Integumentary Denies abscess, Abrasions or rash Neurologic Neurologic: Denies headache(s), paresthesias or weakness Psychiatric Psychiatric: Denies anxiety, depression, suicidal ideation or suicidal thoughts Endocrine Endocrinology: Denies polydipsia or polyuria EXAM Physical Exam Const Vital Signs: 02/15/23 10:05 Temperature 97.9 F Temperature Source Temporal Pulse Rate 96 Respiratory Rate 16 Blood Pressure 135/95 H Blood Pressure Mean 108 Pulse Ox 94 Oxygen Delivery Method Room Air Positive obese General Appearance ED: NAD; Negative for pallor Nutritional Appearance: obese HEENT Reports moist mucous membranes Eyes PERRL Resp normal respiratory effort and clear to auscultation bilaterally Auscultation: Negative for rales, rhonchi or wheezes Cardio regular rate GI Palpation: tender LLQ; Negative for hernia Back/Spine no CVA tenderness Neuro CN's II-XII intact bilaterally and moves all extremities Sensorium / Orientation: alert Motor Exam: strength 5/5 throughout Psych mental status grossly normal and thought process normal Skin General Skin Exam: Negative for jaundice or pallor MDM MDM MDM Narrative Medical decision making narrative: Patient presenting with left lower quadrant abdominal pain. Differential includes UTI, kidney stone, ureteral stone, diverticulitis, colitis, hernia, muscle strain. CBC to assess white blood cell count, hemoglobin, platelets. CMP to assess liver function, renal function, electrolytes. Lactic acid will be added to make sure there is no ischemic bowel. Lipase to assess for pancreatitis. UA source for assess for UTI. CBC shows no significant leukocytosis. Hemoglobin hematocrit are stable. Platelets are normal. Liver function, renal function all within normal limits. Electrolytes normal. Lactic acid normal at 1.3. Lipase negative. Urinalysis negative for infection. CT of the abdomen pelvis with IV contrast was obtained and shows no acute intra-abdominal process. Patient counseled on findings. Recommended ibuprofen and Tylenol. Return precautions discussed. Impression: 1. Abdominal pain Lab Data Attestation: I reviewed the patient's lab results. Labs: Laboratory Results - last 24 hr 02/15/23 02/15/23 02/15/23 10:26 10:26 10:38 WBC 9.1 RBC 5.36 Hgb 15.3 Hct 47.1 MCV 87.9 MCH 28.5 MCHC 32.5 RDW Std Deviation 48.9 H RDW Coeff of [place] 15.5 H Plt Count 196 MPV 11.1 Immature Gran % (Auto) 0.700 Neut % (Auto) 64.2 Lymph % (Auto) 24.8 [place] % (Auto) 6.4 Eos % (Auto) 3.2 Baso % (Auto) 0.7 Absolute Neuts (auto) 5.9 Absolute Lymphs (auto) 2.26 Nucleated RBC % 0 Sodium 140 Potassium 3.9 Chloride 103 Carbon Dioxide 28.0 Anion Gap 9 BUN 16 Creatinine 0.73 Estim Creat Clear Calc 114.89 Est GFR (MDRD) Af Amer 154 Est GFR (MDRD) Non-Af 127 BUN/Creatinine Ratio 21.9 H Glucose 151 H Lactic Acid 1.3 Calcium 8.8 Total Bilirubin 0.40 AST 24 ALT 48 Alkaline Phosphatase 96 Total Protein 7.8 Albumin 3.4 Globulin 4.4 H Albumin/Globulin Ratio 0.8 L Lipase 26 Urine Color Urine Clarity Urine pH Ur Specific [place] Urine Protein Urine Glucose (UA) Urine Ketones Urine Occult Blood Urine Nitrite Urine Bilirubin Urine Urobilinogen Ur Leukocyte Esterase Urine RBC Urine WBC Ur Squamous Epith Cells Urine Bacteria Urine Mucus 02/15/23 10:47 WBC RBC Hgb Hct MCV MCH MCHC RDW Std Deviation RDW Coeff of [place] Plt Count MPV Immature Gran % (Auto) Neut % (Auto) Lymph % (Auto) [place] % (Auto) Eos % (Auto) Baso % (Auto) Absolute Neuts (auto) Absolute Lymphs (auto) Nucleated RBC % Sodium Potassium Chloride Carbon Dioxide Anion Gap BUN Creatinine Estim Creat Clear Calc Est GFR (MDRD) Af Amer Est GFR (MDRD) Non-Af BUN/Creatinine Ratio Glucose Lactic Acid Calcium Total Bilirubin AST ALT Alkaline Phosphatase Total Protein Albumin Globulin Albumin/Globulin Ratio Lipase Urine Color Yellow Urine Clarity Clear Urine pH 8.0 Ur Specific [place] 1.015 Urine Protein Negative Urine Glucose (UA) 1000 H Urine Ketones Negative Urine Occult Blood Negative Urine Nitrite Negative Urine Bilirubin Negative Urine Urobilinogen Normal Ur Leukocyte Esterase Negative Urine RBC 0 SEEN Urine WBC 0 SEEN Ur Squamous Epith Cells 0 SEEN Urine Bacteria 0 SEEN Urine Mucus 0 SEEN Radiography Diagnostic Testing: Clinical Impression(s) from Imaging Studies Abdomen/Pelvis CT 02/15/23 10:44 IMPRESSION: 1. No acute process of the abdomen and pelvis. 2. No bowel dilatation or evidence of obstruction. No fluid collections or free air is present. No inflammatory stranding is seen. Electronically Signed: Antonio Swan MD at 12:23 EDT Reading Location ID and State: [facility] / [place] , Service support , Discharge Plan Triage Chief Complaint: Abd Pain ED Provider: Robinson Guillen Dx/Rx/DC Orders Instructions: ED Abdominal Pain Unkn Cause Male... Prescriptions: No Action colchicine 0.6 mg tablet PO Label Comments: take 1 tablet by mouth every 6 hours if needed for GOUT FLARE Victoza 3-Foster 0.6 mg/0.1 mL (18 mg/3 mL) pen injector subcut Label Comments: inject 1.8 milligram subcutaneously daily albuterol sulfate 2.5 mg /3 mL (0.083 %) solution for nebulization 2.5 mg inhalation Q4H PRN (Reason: shortness of breath or wheezing) Qty: 180 11RF albuterol sulfate 90 mcg/actuation HFA aerosol inhaler 2 inh inhalation Q4H PRN PRN (Reason: Sob &/Or Wheezing) Qty: 8.5 11RF budesonide-formoterol [Symbicort] 160-4.5 mcg/actuation HFA aerosol inhaler 2 puff inhalation BID Qty: 10.2 11RF montelukast 10 mg tablet 10 mg PO DAILY Qty: 90 3RF fluticasone propionate 50 mcg/actuation spray,suspension 2 spray INTRANASAL DAILY Qty: 16 11RF (DME) spacer See Rx Instructions .ROUTE .MEDSUPPLY Qty: 1 0RF Rx Instructions: As directed Farxiga 5 mg tablet 5 mg PO DAILY allopurinol 300 MG tablet 300 mg PO DAILY Label Comments: gout nebivolol 10 MG tablet 10 mg PO DAILY Label Comments: blood pressure guaifenesin 1,200 MG tablet 1,000 mg PO BID PRN (Reason: Congestion) baclofen 20 MG tablet 20 mg PO DAILY potassium 99 MG tablet 1,080 mg PO DAILY pantoprazole 40 MG tablet 40 mg PO DAILY multivitamin with minerals 1 EACH tablet 1 tab PO DAILY levetiracetam 500 MG tablet 500 mg PO BID Label Comments: seizure nystatin 1 APPLIC bottle 1 applic TOPICAL TID Qty: 1 0RF Protocol: *Topical Application Instructions APPLICATION INSTRUCTIONS: groin Rx Instructions: SKIN ISSUES fluoxetine 10 mg capsule 20 mg PO DAILY Label Comments: TAKE 1 CAPSULE BY MOUTH EVERY DAY acetaminophen 325 MG tablet 650 mg PO Q6H PRN PRN (Reason: Pain Score 1-10/Temp > 100.7 F) 0RF furosemide 20 MG tablet 40 mg PO BID Label Comments: Diuretic (water pill) Primary Care Provider: Aliza Roman Referrals: Aliza Roman MD [Primary Care Provider] - Disposition Disposition: Home, Self Care Discharge Date/Time: 02/15/23 13:28
[2023-02-15] MEDS: Ketorolac 15 MG/ML Vial IV (11:46)
== END 2023-02-15 13:28 | disposition home or self-care (01) ==
PROVIDERS: Emergency Provider Student in an Organized Health Care Education/Training Program; PCP Family Medicine; Visit Provider Student in an Organized Health Care Education/Training Program
DX: R10.32 Left lower quadrant pain (principal); E11.9 Type 2 diabetes mellitus without complications; I10 Essential (primary) hypertension; M10.9 Gout, unspecified; Z79.899 Other long term (current) drug therapy; K21.9 Gastro-esophageal reflux disease without esophagitis; F32.A Depression, unspecified; Z79.85 Long-term (current) use of injectable non-insulin antidiabetic drugs
CPT/HCPCS: 74177; 80053; 81001; 83605; 83690; 85025; 96374; 99283; Q9967; A4216

== ENCOUNTER → 2023-09-03 | Outpatient (CLI) | payer MEDICARE, MEDICAID, SELFPAY ==
--- OUTSIDE RECORDS SUMMARY | 2023-09-03 12:42 | XMS RPT_ITS | CCD ---
Author Name Unknown Address [address] [place] [address] Organization [facility] Care Team Providers Care Ret[employer] Specialist Name Role Phone INA LEVINE Primary Care Physician [phone] LANCE CRUZ Primary Care Unavailable Results Test Name Value Interpretation Reference Range Facil ity Encounters Encounter Date Encounter Type Care Provider Facility Start: 07-21-2022 End: 07-21-2022 ambulatory LANCE CRUZ Facility:[facility] Start: 10-10-2021 End: 10-10-2021 Patient encounter procedure TONNY SONG MD [facility] Payers Date Payer Category Payer Medicare [id number] Social History Date Type Detail Facility [facility] Sex Assigned At Male [facility] Influenza virus A and B RNA and SARS-CoV-2 (COVID-19) N gene panel CINDY+probe (Resp) 07-21-2022 Note Date & Type Note Facility 07-21-2022 Influenza virus A and B RNA and SARS-CoV-2 (COVID-19) N gene panel CINDY+probe (Resp) COVID 19 RESULT: SARS-CoV-2 (Agent of COVID-19) Not Detected by RT-PCR or equivalent method. shruthi [id number]_Oqzth [employer] (ALEKSANDR)_EUA This test was developed and its performance characteristics determined by [facility] [place]. This test has been authorized by FDA under an Emergency Use Authorization (EUA). This test has been validated in accordance with the FDA's Guidance Document Policy for Diagnostics Testing in Laboratories Certified to Perform High Complexity Testing under CLIA prior to Emergency use Authorization for Coronavirus Disease 2019 during the Public Health Emergency issued on October 22, 2019. Test performed by [facility], [facility] [place], [address] [place], [place] [address]. INFLUENZA A PCR: Negative for Influenza A by RT-PCR INFLUENZA B PCR: Negative for Influenza B by RT-PCR [facility] Progress note 07-21-2022 Note Date & Type Note Facility 07-21-2022 Note HNO ID: [id number] Author: Ag Villalta MD Service: ? Author Type: Physician Type: Progress Notes Filed: 07/21/2022 12:47 PM Note Text: Patient presents with: Sinus Problem: sinus pressure, drainage, cough and sore throat x 4 days HPI: Feeling sick for 5 days. His doctor recommended he be tested for COVID. Positive symptoms: Cough, Sore throat, Sinus pressure, Nasal Congestion, Rhinorrhea, Post nasal drainage, Negative symptoms: Shortness of breath (beyond baseline), Vomiting, Diarrhea, OTC: Cold Medicine Baseline oxygen 91% at rest off home O2. PAST MEDICAL HISTORY Diagnosis Date Asthma Cerebral palsy (HCC) DM2 (diabetes mellitus, type 2) (HCC) Gout HTN (hypertension) Hydrocephalus with operating shunt (HCC) Obesity hypoventilation syndrome (HCC) Sleep apnea on BiPap MEDICATIONS: Current Outpatient Medications Medication Sig allopurinol (ZYLOPRIM) 300 mg tablet Take 1 tablet by mouth once daily. nebivolol (BYSTOLIC) 10 mg tablet Take 1 tablet by mouth once daily. montelukast (SINGULAIR) 10 mg tablet Take 1 tablet by mouth once daily. metFORMIN (GLUCOPHAGE) 500 mg tablet Take 1 tablet by mouth once daily. No current facility-administered medications for this visit. ALLERGIES: ALLERGIES Allergen Reactions Seasonal Allergies Other: See Comments VITALS: BP 128/80 Pulse (!) 122 Temp 36.7 ?C (98.1 ?F) Resp 22 Wt (!) 157.4 kg (347 lb) SpO2 91% PHYSICAL EXAM: GEN: mildly ill appearing HEENT: PERRL, exotropia, conjunctiva clear, scalp seborrhea Ears: canals clear. TMs without erythema, bulge, or effusion Sinuses:tender sinuses Throat: moist mucous membranes, mild erythema, no exudate Neck: supple, no thyromegaly, no lymphadenopathy HEART: regular rate and rhythm, no murmurs LUNGS: clear to auscultation, no wheezes or crackles, no increased WOB ASSESSMENT/PLAN: 1. Sore throat - ICD9: 462, ICD10: J02.9 (primary diagnosis) - STREP A MOLECULAR (POC) - negative. - COVID WITH FLUA+B, ROUTINE 2. URI, acute - ICD9: 465.9, ICD10: J06.9 - suspect viral URI, differential includes COVID-19. - Discussed supportive care treatment with home isolation, rest, cold medicine, and analgesia. - Red flags to seek further treatment include chest pain, shortness of breath, and lethargy; in the ER if severe. - COVID WITH FLUA+B, ROUTINE Ag Villalta MD [facility] Evaluation + Plan note Note Date & Type Note Facility Evaluation + Plan note No data available for this section [facility] Hospital Discharge instructions Note Date & Type Note Facility Hospital Discharge instructions No data available for this section [facility] Summary Purpose Family History No Family History Records FoundNo Family History Records Found Advance Directives No Advanced Directives Records FoundNo Advanced Directives Records Found Additional Source Comments (unrecognized sect ion and content) No Status Records FoundNo Status Records Found INFORMATION SOURCE (unrecogn ized section and content) DATE CREATED AUTHOR AUTHOR'S ORGANIZ ATION 07/22/2022 [facility] FOR RECORDS PERTAINING TO PATIENTS WHO ARE OR HAVE BEEN ENROLLED IN A CHEMICAL DEPENDENCY/SUBSTANCEABUSE PROGRAM, SOME INFORMATION MAY BE OMITTED. This clinical summary was aggregated from multiple sources. Caution should be exercised in using it in the provision of clinical care. This summary normalizes information from multiple sources, and as a consequence, information in this document may materially change the coding, format and clinical context of patient data. In addition, data may be omitted in some cases. CLINICAL DECISIONS SHOULD BE BASED ON THE PRIMARY CLINICAL RECORDS. [employer] [facility]. provides no warranty or guarantee of the accuracy or completeness of information in this document.
[2023-09-03 14:31] LABS: Amphetamine Urine VISTA NEGATIVE (<1000 ng/mL); Barbiturate Urine VISTA NEGATIVE (< 200 ng/mL); Benzodiazepine Urine VISTA NEGATIVE (< 200 ng/mL); Cocaine Urine VISTA NEGATIVE (< 300 ng/mL); Ecstacy Urine VISTA NEGATIVE (< 500 ng/mL); Methadone Urine VISTA NEGATIVE (< 300 ng/mL); PCP Urine VISTA NEGATIVE (< 25 ng/mL); THC Urine VISTA NEGATIVE (< 50 ng/mL); Vista UDS pH Range 5
== END | disposition home or self-care (01) ==
LOC: LAB 11:00
PROVIDERS: PCP Family Medicine; Referring Provider Anesthesiology Pain Medicine; Visit Provider Anesthesiology Pain Medicine
DX: F11.20 Opioid dependence, uncomplicated (principal)
CPT/HCPCS: 80307

== ENCOUNTER → 2023-09-10 | Outpatient (CLI) | payer MEDICARE, MEDICAID, SELFPAY ==
[2023-09-10 13:54] LABS: Amphetamine Urine VISTA NEGATIVE (<1000 ng/mL); Barbiturate Urine VISTA NEGATIVE (< 200 ng/mL); Benzodiazepine Urine VISTA NEGATIVE (< 200 ng/mL); Cocaine Urine VISTA NEGATIVE (< 300 ng/mL); Ecstacy Urine VISTA NEGATIVE (< 500 ng/mL); Methadone Urine VISTA NEGATIVE (< 300 ng/mL); PCP Urine VISTA NEGATIVE (< 25 ng/mL); THC Urine VISTA NEGATIVE (< 50 ng/mL); Vista UDS pH Range 7
== END | disposition home or self-care (01) ==
PROVIDERS: PCP Family Medicine; Referring Provider Anesthesiology Pain Medicine; Visit Provider Anesthesiology Pain Medicine
DX: F11.20 Opioid dependence, uncomplicated (principal)
CPT/HCPCS: 80307

== ENCOUNTER → 2023-10-30 | Outpatient (CLI) | payer MEDICARE, MEDICAID, SELFPAY ==
--- NOTE | 2023-10-30 10:25 | RAD_ITS ---
INDICATION: Other intervertebral disc degeneration, lumbar region EXAMINATION/TECHNIQUE: X-RAY - XR Spine Lumbar 2 or 3 Views COMPARISON: No relevant prior comparison study available FINDINGS: VERTEBRAE: Preserved vertebral body height. No fracture. No spondylolisthesis. Preservation of the normal lumbar lordosis. No substantial scoliosis. DISCS: The disc spaces are within normal limits. Mild endplate spondylosis. INCLUDED ABDOMEN: Included bowel gas pattern is non-obstructive. RAD/Lumbar Spine 2 or 3 Views IMPRESSION: Mild degenerative changes. Electronically Signed: Chris Valentine MD at 15:28 EST ,
--- OUTSIDE RECORDS SUMMARY | 2023-10-30 10:45 | XMS RPT_ITS | CCD ---
Author Name Unknown Address [address] [place] [address] Organization [facility] Care Team Providers Care Licensed Home Inspector Name Role Phone INA LEVINE Primary Care Physician [phone] Rodney GONZALEZ, Denny Brewer Primary Care Provider Denny Santos MD Unavailable DENNY STEVENS Primary Care Unavailable SIMIN PLASCENCIA Attending Unavailable DENNY STEVENS Primary Care Unavailable SIMIN PLASCENCIA Referring Unavailable Allergies Allergy Classification Reported Allergen(s) Allergy Type Date of Onset Reaction(s) Facility (5 sources) Seasonal allergy; Translations: [SEASONAL ALLERGIES] Allergy to substance 1 Other: See Comments [facility] Work Phone: Medications Completed/Discontinued Medications Medication Drug Class(es) Dates Sig (Normalized) Sig (Original) acetaminophen 325 mg oral tablet (3 sources) Start: 04-14-2020 acetaminophen (TYLENOL) 325 mg tablet Take by mouth. 0 04/14/2020 Active Problems Problem Classification Problem Date Documented Da te Episodic/Chronic Diabetes mellitus without complication (4 sources) Diabetes mellitus; Translations: [Type 2 diabetes mellitus without complications] Onset: 05-16-2014 05-16-2014 Chronic Mycoses (1 source) Onychomycosis; Translations: [Tinea unguium] 10-06-2023 Episodic Nervous system congenital anomalies (4 sources) Congenital hydrocephalus; Translations: [Congenital hydrocephalus, unspecified] Onset: 10-06-2023 10-06-2023 Chronic Other connective tissue disease (1 source) Pain of toe of left foot; Translations: [Pain in left toe(s)] 10-06-2023 Episodic Other connective tissue disease (1 source) Pain of toe of right foot; Translations: [Pain in right toe(s)] 10-06-2023 Episodic Other non-traumatic joint disorders (1 source) Hip pain; Translations: [Pain in left hip] 10-13-2023 Episodic Other nutritional; endocrine; and metabolic disorders (4 sources) Morbid obesity; Translations: [Morbid (severe) obesity due to excess calories] Onset: 10-06-2023 10-06-2023 Chronic Other skin disorders (1 source) Foot callus; Translations: [Corns and callosities] 10-06-2023 Episodic Residual codes; unclassified (2 sources) Pain; Translations: [Pain, unspecified] 10-06-2023 Episodic Residual codes; unclassified (1 source) Pain, unspecified; Translations: [Pain] Onset: 10-06-2023 Episodic Results Test Name Value Interpretation Reference Range Facil ity Encounters Encounter Date Encounter Type Care Provider Facility Start: 10-13-2023 Orders Only Rashida Mccormick Work Phone: [facility] Plan of Treatment Date Care Activity Detail Author Start: 08-24-2023 Depression Assessment Depression Assessment [facility] Start: 04-24-2023 Covid-19 Vaccine ( season) Covid-19 Vaccine ( season) [facility] Start: 01-27-2015 Pneumococcal vaccination Pneumococcal Vaccine (2 of 2 - PCV) [facility] Start: 2003 Urine microalbumin profile DTaP,Tdap,Td Vaccine (1 - Tdap) [facility] Start: 2002 Annual PCP Team Chronic Disease Visit Annual PCP Team Chronic Disease Visit [facility] Start: 2002 Hepatitis B surface antibody level LDL Cholesterol [facility] Start: 2002 Hepatitis C screening Hepatitis C Screening [facility] Start: 2002 HIV screening HIV Screening [facility] Start: 1994 Diabetic foot examination Diabetic Foot Exam [facility] Start: 1994 Glaucoma screening Dilated Retinal Exam [facility] Start: 1994 Hepatitis B screening Urine Albumin:Creatinine Ratio [facility] Start: 1989 Hemoglobin A1c measurement HbA1C [facility] Start: 1984 Hepatitis B Vaccine (1 of 3 - 3-dose series) Hepatitis B Vaccine (1 of 3 - 3-dose series) [facility] XR Foot - bilateral AP and Lateral and oblique XR FOOT GENERAL 3V AP/LAT/OBL BILATERAL Radiology Routine Pain 10/06/2023 12:52 PM EST [facility] Work Phone: End: 11-11-2024 XR Pelvis and Hip - left AP and Lateral frog [facility] Work Phone: Payers Date Payer Category Payer Medicaid [employer] [id number] 2015-Present [phone] [address] [place] [address] Medicaid [id number] 2015 Medicare [employer] [facility] [employer] [id number] 2015-Present [phone] [address] [place] [address] Medicare [id number] 2015 Medicare [id number] Social History Date Type Detail Facility Never smoker [facility] Sex Assigned At Male [facility] Start: 05-16-2014 Tobacco smoking stat [facility] Never smoked tobacco [facility] Start: 05-16-2014 Tobacco use and exposure Smokeless tobacco non-user [facility] Start: 10-06-2023 Alcohol intake Current drinke r of alcohol (finding) [facility] Start: 10-06-2023 History of Social function [facility] Start: 10-06-2023 Tobacco use panel [facility] National Score (1-100), lower number is lower risk 66 [facility] Start: 10-06-2023 Alcohol Comment holidays [facility] Start: 1984 Sex Assigned At Not on file [facility] Clinical Notes 10-06-2023 Patient InstructionsSimin Plascencia - 10/06/2023 2:26 PM Camryn Harvey LPN - 10/06/2023 2:11 PM Liseth Tomas, RT(R) - 10/06/2023 1:20 PM EST Note Date & Type Note Facility 10-06-2023 Note HNO ID: [id number] Author: SIMIN PLASCENCIA, ? Service: ? Author Type: Physician Type: Progress Notes Filed: 10/06/2023 14:44 Note Text: Initial Office Visit Subjective: This 38 year old male presents to clinic for diabetic foot check. Patient has the following complaints: pain in left great toenail. Patient admits to being diabetic for 4-5 years now. Patient +B/T/N in feet at this time. Patient +pain in legs when walking. No other pedal complaints at this time. No change in medications or medical history since last visit. PAIN EVALUATION No data found in the last 1 encounters. No results found for: HBA1C PCP: Denny Stevens MD PAST MEDICAL HISTORY Diagnosis Date Asthma Cerebral palsy ([facility]) DM2 (diabetes mellitus, type 2) ([facility]) Gout HTN (hypertension) Hydrocephalus with operating shunt ([facility]) Obesity hypoventilation syndrome ([facility]) Sleep apnea on BiPap Current Outpatient Medications Medication Sig traMADol (ULTRAM) 50 mg tablet Potassium Gluconate 2.5 mEq tab Take 1,[address] (PROTONIX) 40 mg tablet Take 1 tablet by mouth every afternoon. VICTOZA 3-DENITA 0.6 mg/0.1 mL (18 mg/3 mL) INJECT 1.8MG SUBCUTANEOUSLY EVERY DAY levETIRAcetam (KEPPRA) 500 mg tablet FARXIGA 10 mg tablet Take 1 tablet by mouth every afternoon. colchicine 0.6 mg tablet take 1 tablet by mouth every 6 hours if needed for GOUT FLARE baclofen 20 mg tablet Take 1 tablet by mouth every afternoon. acetaminophen (TYLENOL) 325 mg tablet Take by mouth. FLUoxetine HCl 20 mg tablet Take 20 mg by mouth once daily. allopurinol (ZYLOPRIM) 300 mg tablet Take 1 tablet by mouth once daily. montelukast (SINGULAIR) 10 mg tablet Take 1 tablet by mouth once daily. No current facility-administered medications for this visit. ALLERGIES Allergen Reactions Seasonal Allergies Other: See Comments PAST SURGICAL HISTORY Procedure Laterality Date SHUNT PLACEMENT W/ULTRASOUND GUIDANCE 1983 at PAST SURGICAL HISTORY OF 1988 heel cord lengthing, L REVISION OF A SHUNT 1988 FAMILY HISTORY Problem Relation Age of Onset other (a fib [Other]) Father other (dm2 [Other]) Mother other (dm2 [Other]) Father Cancer Maternal Grandmother Cancer Paternal Grandfather other (heart diease [Other]) Paternal Grandfather Social History Tobacco Use Smoking status: Never Smokeless tobacco: Never Vaping Use Vaping Use: Never used Substance Use Topics Alcohol use: Yes Comment: holidays Drug use: No REVIEW OF SYSTEMS GENERAL: Negative for Malaise, significant weight loss, fever RESPIRATORY: Negative for cough, wheezing and shortness of breath CARDIOVASCULAR: Negative for chest pain, leg swelling and palpitations GI: Negative for abdominal discomfort, blood in stools or black stools and change in bowel habits : Negative for dysuria, frequency and incontinence MUSCULOSKELETAL: Negative for joint pain or swelling, back pain, and muscle pain. SKIN: Negative for lesions, rash, and itching. HEMATOLOGY/LYMPHOLOGY Negative for prolonged bleeding, bruising easily, and swollen nodes. ENDOCRINE: Negative for cold or heat intolerance, polyuria, polydipsia and goiter. NEURO: negative The remainder of the review of systems is noncontributory. Objective: Patient presents to clinic nonambulatory Constitutional: Pt is a well developed 38 year old male who is alert, oriented, cooperative and in no apparent distress. Eyes: Following during examination. No redness or drainage. Respiratory: RR normal and nonlabored. Even breathing. No evidence of distress. Psychology: Patient is engaged during conversation. Normal affect and mood. Does not appear depressed or anxious. Vasc: DP and PT pulses are palpable bilateral. CFT is less than 5 seconds bilateral. Skin temperature is warm to warm proximal to distal bilateral. There is mild edema or varicosities noted. Hair growth present. Neuro: Protective sensation is intact to the foot and toes when tested with the 5.07 SWM bilateral. Vibratory sensation is intact at the hallux bilateral. No Significant neurological defecits. Derm: Inspection and palpation performed. Nails 1-5 b/l are discolored-yellow, thick, crumbly, dystrophic and with subungal debris. Pain is present to left hallux toenail. Skin is of normal turgor and texture. Hyperkeratosis noted to left hallux. NO ulcerations, scars, verruca or other lesions noted. Ortho: Ankle joint DF is full with the knee extended and full with knee flexed. No pain or crepitus noted. STJ, MTJ ROM are full and free of pain or crepitus. Muscle strength is 5/5 for dorsiflexors, plantarflexors, inverters, everters. Digital deformities include none. Assessment: Diabetes Mellitus Type II (B35.1) Onychomycosis (primary encounter diagnosis) (M79.675) Pain in toe of left foot (M79.674) Pain in toe of right foot (L84) Callus of foot Plan: 1. Patient was seen and evaluated. 2. (more content not included)... [facility] 10-06-2023 Note HNO ID: [id number] Author: CAMRYN IMLAN LPN Service: ? Author Type: LICENSED NURSE Type: Progress Notes Filed: 10/06/2023 14:44 Note Text: AMB ROOMING INTAKE FLOWSHEET DATA Risk Screening Do you have concerns about personal safety or safety in the home?: No Patient presents with: Left Foot - New, Diabetic Foot Care Right Foot - New, Diabetic Foot Care Camryn Milan LPN [facility] 10-06-2023 Note HNO ID: [id number] Author: LISETH GONZALEZ RT(Juliano) Service: Radiology Author Type: Technologist Type: Progress Notes Filed: 10/06/2023 12:55 Note Text: Radiology Service Progress Note PATIENT NAME: Robbie Rodriges DATE OF SERVICE: October 06, 2023 TIME: 12:37 PM PATIENT IDENTITY VERIFICATION COMPLETED USING TWO (2) IDENTIFIERS: Name and Date of confirmed by patient verbally. FALL SCREENING: Has the patient had 2 falls in the last year or 1 fall with injury or currently using an Ambulatory Assistive Device (Walker, Cane, Wheelchair, Crutches, etc.)? Yes, Patient High Risk for Falls What interventions were put in place to prevent falls during this visit? Instructed Patient to Remain Seated (Not on Exam Table) Until Exam and Increased Observations by Caregivers PATIENT GENDER DATA: Male PATIENT RELEVANT IMPLANT DATA REVIEWED: Not Applicable PATIENT PRESENTS WITH AN IMPLANTABLE OR ATTACHED OIL PROCESSING TECHNICIAN: No RADIOLOGY DEPARTMENT: General X-ray: Exam(s) Completed: Lower Extremity X-Ray(s): Foot, Bilateral PERIPHERAL IV DATA: Not applicable SIGNED BY: RT King(R) October 06, 2023 12:37 PM [facility] 10-06-2023 Instructions Simin Plascencia - 10/06/2023 2:41 PM EST Diabetes Foot Care Instructions When you have diabetes, proper foot care is very important. Poor foot care may lead to amputation of a foot or leg. As a person with diabetes, you are more vulnerable to foot problems, because diabetes can damage your nerves and reduce blood flow to your feet. Here are some diabetes foot care tips to follow: Wash and Dry Your Feet Daily Use mild soaps Use warm water Pat your skin dry; do not rub. Thoroughly dry your feet. After washing, use lotion on your feet to prevent cracking. Do not put lotion between your toes. Examine Your Feet Each Day Check the tops and bottoms of your feet. Have someone else look at your feet if you cannot see them. Check for dry, cracked skin. Look for blisters, cuts, scratches, or other sores. Check for redness, increased warmth, or tenderness when touching any area of your feet. Check for ingrown toenails, corns, and calluses. If you get a blister or sore from your shoes, do not pop it. Apply a bandage and wear a different pair of shoes. Take Care of Your Toenails Cut toenails after bathing, when they are soft. Cut toenails straight across and smooth with a nail file. Avoid cutting into the corners of toes. Do not cut cuticles. If you have neuropathy (or decreased sensation in your feet) a gym teacher should always cut your toenails. Be Careful When Exercising Walk and exercise in comfortable shoes. Do not exercise when you have open sores on your feet. Protect Your Feet With Shoes and Socks Never go barefoot. Always protect your feet by wearing shoes or hard-soled slippers or footwear. Avoid shoes with high heels and pointed toes. Avoid shoes that expose your toes or heels (such as open-toed shoes or sandals). These types of shoes increase your risk for injury and potential infections. Try on new footwear with the type of socks you usually wear. Do not wear new shoes for more than an hour at a time. Change your socks daily. Look and feel inside your shoes before putting them on to make sure there are no foreign objects or rough areas. Avoid tight socks. Wear natural-fiber socks (cotton, wool, or a cotton-wool blend). Wear special shoes if your health care provider recommends them. Wear shoes/boots that will protect your feet from various weather conditions (cold, moisture, etc.). Make sure your shoes fit properly. If you have neuropathy (nerve damage), you may not notice that your shoes are too tight. Perform the footwear test described below. Footwear Test Use this simple test to see if your shoes fit correctly: Stand on a piece of paper. (Make sure you are standing and not sitting, because your foot changes shape when you stand.) Trace the outline of your foot. Trace the outline of your shoe. Compare the tracings: Is the shoe too narrow? Is your foot crammed into the shoe? The shoe should be at least 1/2 inch longer than your longest toe and as wide as your foot. Proper Shoe Choices The following types of shoes are best for people with diabetes Closed toes and heels Leather uppers without a seam inside At least 1/2 inch extra space at the end of your longest toe Inside of shoe should be soft with no rough areas Outer sole should be made of stiff material Shoes should be at least as wide as your feet Tips for Foot Care in Diabetes Don't wait to treat a minor foot problem if you have diabetes. Follow your health care provider's guidelines and first aid guidelines. Report foot injuries and infections to your health care provider immediately. Check water temperature with your elbow, not your foot. Do not use a heating pad on your feet. Do not cross your legs. Do not self-treat your corns, calluses, or other foot problems. Go to your health care provider or gym teacher to treat these conditions. documented in this encounter [facility] 10-06-2023 History of Presen t illness Narrative Initial Office Visit Subjective: This 38 year old male presents to clinic for diabetic foot check. Patient has the following complaints: pain in left great toenail. Patient admits to being diabetic for 4-5 years now. Patient +B/T/N in feet at this time. Patient +pain in legs when walking. No other pedal complaints at this time. No change in medications or medical history since last visit. PAIN EVALUATION No data found in the last 1 encounters. No results found for: HBA1C PCP: Denny Stevens MD PAST MEDICAL HISTORY Diagnosis Date Asthma Cerebral palsy ([facility]) DM2 (diabetes mellitus, type 2) ([facility]) Gout HTN (hypertension) Hydrocephalus with operating shunt ([facility]) Obesity hypoventilation syndrome ([facility]) Sleep apnea on BiPap Current Outpatient Medications Medication Sig traMADol (ULTRAM) 50 mg tablet Potassium Gluconate 2.5 mEq tab Take 1,[address] (PROTONIX) 40 mg tablet Take 1 tablet by mouth every afternoon. VICTOZA 3-DENITA 0.6 mg/0.1 mL (18 mg/3 mL) INJECT 1.8MG SUBCUTANEOUSLY EVERY DAY levETIRAcetam (KEPPRA) 500 mg tablet FARXIGA 10 mg tablet Take 1 tablet by mouth every afternoon. colchicine 0.6 mg tablet take 1 tablet by mouth every 6 hours if needed for GOUT FLARE baclofen 20 mg tablet Take 1 tablet by mouth every afternoon. acetaminophen (TYLENOL) 325 mg tablet Take by mouth. FLUoxetine HCl 20 mg tablet Take 20 mg by mouth once daily. allopurinol (ZYLOPRIM) 300 mg tablet Take 1 tablet by mouth once daily. montelukast (SINGULAIR) 10 mg tablet Take 1 tablet by mouth once daily. No current facility-administered medications for this visit. ALLERGIES Allergen Reactions Seasonal Allergies Other: See Comments PAST SURGICAL HISTORY Procedure Laterality Date SHUNT PLACEMENT W/ULTRASOUND GUIDANCE 1983 at PAST SURGICAL HISTORY OF 1988 heel cord lengthing, L REVISION OF A SHUNT 1988 FAMILY HISTORY Problem Relation Age of Onset other (a fib [Other]) Father other (dm2 [Other]) Mother other (dm2 [Other]) Father Cancer Maternal Grandmother Cancer Paternal Grandfather other (heart diease [Other]) Paternal Grandfather Social History Tobacco Use Smoking status: Never Smokeless tobacco: Never Vaping Use Vaping Use: Never used Substance Use Topics Alcohol use: Yes Comment: holidays Drug use: No REVIEW OF SYSTEMS GENERAL: Negative for Malaise, significant weight loss, fever RESPIRATORY: Negative for cough, wheezing and shortness of breath CARDIOVASCULAR: Negative for chest pain, leg swelling and palpitations GI: Negative for abdominal discomfort, blood in stools or black stools and change in bowel habits : Negative for dysuria, frequency and incontinence MUSCULOSKELETAL: Negative for joint pain or swelling, back pain, and muscle pain. SKIN: Negative for lesions, rash, and itching. HEMATOLOGY/LYMPHOLOGY Negative for prolonged bleeding, bruising easily, and swollen nodes. ENDOCRINE: Negative for cold or heat intolerance, polyuria, polydipsia and goiter. NEURO: negative The remainder of the review of systems is noncontributory. Objective: Patient presents to clinic nonambulatory Constitutional: Pt is a well developed 38 year old male who is alert, oriented, cooperative and in no apparent distress. Eyes: Following during examination. No redness or drainage. Respiratory: RR normal and nonlabored. Even breathing. No evidence of distress. Psychology: Patient is engaged during conversation. Normal affect and mood. Does not appear depressed or anxious. Vasc: DP and PT pulses are palpable bilateral. CFT is less than 5 seconds bilateral. Skin temperature is warm to warm proximal to distal bilateral. There is mild edema or varicosities noted. Hair growth present. Neuro: Protective sensation is intact to the foot and toes when tested with the 5.07 SWM bilateral. Vibratory sensation is intact at the hallux bilateral. No Significant neurological defecits. Derm: Inspection and palpation performed. Nails 1-5 b/l are discolored-yellow, thick, crumbly, dystrophic and with subungal debris. Pain is present to left hallux toenail. Skin is of normal turgor and texture. Hyperkeratosis noted to left hallux. NO ulcerations, scars, verruca or other lesions noted. Ortho: Ankle joint DF is full with the knee extended and full with knee flexed. No pain or crepitus noted. STJ, MTJ ROM are full and free of pain or crepitus. Muscle strength is 5/5 for dorsiflexors, plantarflexors, inverters, everters. Digital deformities include none. Assessment: Diabetes Mellitus Type II (B35.1) Onychomycosis (primary encounter diagnosis) (M79.675) Pain in toe of left foot (M79.674) Pain in toe of right foot (L84) Callus of foot Plan: 1. Patient was seen and evaluated. 2. Patient was instructed on the continued importance of diabetic foot care along with proper diet and keeping their blood sugar under control to prevent complications. Instructions given both oral and written. 3. Toenails 1-5 b/l debrided in length and thickness. Discussed possible matrixectomy of left hallux due to deformity of nail. Patient may consider. Needs A1c below 8 to consider 4. Callus reduced with dremmel to left hallux. Continue with diabetic shoe. Avoid barefoot walking Simin Plascencia DPM AMB ROOMING INTAKE FLOWSHEET DATA Risk Screening Do you have concerns about personal safety or safety in the home?: No Patient presents with: Left Foot - New, Diabetic Foot Care Right Foot - New, Diabetic Foot Care Camryn Milan LPN documented in this encounter [facility] 10-06-2023 History of Presen t illness Narrative Radiology Service Progress Note PATIENT NAME: Robbie Rodriges DATE OF SERVICE: October 06, 2023 TIME: 12:37 PM PATIENT IDENTITY VERIFICATION COMPLETED USING TWO (2) IDENTIFIERS: Name and Date of confirmed by patient verbally. FALL SCREENING: Has the patient had 2 falls in the last year or 1 fall with injury or currently using an Ambulatory Assistive Device (Walker, Cane, Wheelchair, Crutches, etc.)? Yes, Patient High Risk for Falls What interventions were put in place to prevent falls during this visit? Instructed Patient to Remain Seated (Not on Exam Table) Until Exam and Increased Observations by Caregivers PATIENT GENDER DATA: Male PATIENT RELEVANT IMPLANT DATA REVIEWED: Not Applicable PATIENT PRESENTS WITH AN IMPLANTABLE OR ATTACHED OIL PROCESSING TECHNICIAN: No RADIOLOGY DEPARTMENT: General X-ray: Exam(s) Completed: Lower Extremity X-Ray(s): Foot, Bilateral PERIPHERAL IV DATA: Not applicable SIGNED BY: RT King(R) October 06, 2023 12:37 PM documented in this encounter [facility] Evaluation + Plan note No data available for this section [facility] documented in this encounter [facility]* Diagnosis Pain Generalized pain documented in this encounter [facility] note* Diagnosis Pain- Primary Generalized pain documented in this encounter [facility] note* Diagnosis Pain in left hip- Primary Pain in joint, pelvic region and thigh documented [facility] Discharge instructions No data available for this section [facility] Reason for referral (narrative)* Diagnostic Procedure Only (Routine) - Authorized Specialty Diagnoses / Procedures Referred By Stephen vega Referred To Contact XR IMAGING Diagnoses Pain Procedures XR HIP GENERAL 3V PELV/AP/LAT LEFT RADEX HIP UNILATERAL WITH PELVIS 2-3 VIEWS Rashida Guido PA-C [address] [place], [place] [id number] Xr Imaging [place] [address] Referral ID Status Reason Start Date Expiration Date Visits Requested Visits Authorized [id number] Authorized Auto-Generat ed Referral 10/13/2023 11/11/2024 1 1 [facility] for referral (narrative)* Diagnostic Procedure Only (Routine) - Pending Review Specialty Diagnoses / Procedures Referred By Contac t Referred To Contact XR IMAGING Diagnoses Pain in left hip Procedures XR HIP GENERAL 3V PELV/AP/LAT LEFT RADEX HIP UNILATERAL WITH PELVIS 2-3 VIEWS Philippe Lamb MD [address] [facility] [address] [address] Xr Imaging [place] [id number] Referral ID Status Reason Start Date Expiration Date Visits Requested Visits Authorized [id number] Pending Review Auto-Generat ed Referral 10/14/2023 11/11/2024 1 1 [facility] for visit Narrative* Diagnostic Procedure Only (Routine) - Closed Specialty Diagnoses / Procedures Referred By Contac t Referred To Contact XR IMAGING Diagnoses Pain Procedures XR FOOT GENERAL 3V AP/LAT/OBL BILATERAL RADEX FOOT COMPLETE MINIMUM 3 VIEWS Simin Pl[address] [place] [id number] [place] [id number] Referral ID Status Reason Start Date Expiration Date V isits Requested Visits Authorized [id number] Closed Auto-Generate d Referral 09/18/2023 10/17/2024 1 1 [facility] Summary Purpose Family History No Family History Records FoundNo Family History Records Found Advance Directives No Advanced Directives Records FoundNo Advanced Directives Records Found Additional Source Comments (unrecognized sect ion and content) No Status Records FoundNo Status Records Found INFORMATION SOURCE (unrecogn ized section and content) DATE CREATED AUTHOR AUTHOR'S ORGANIZ ATION 10/08/2023 [facility] Source Comments (unrecognize d section and content) In the event this informatio n is protected by the Federal Confidentiality of Alcohol and Drug Abuse Patient Records regulations: The Federal rules restrict any use of the information to criminally investigate or prosecute any alcohol or drug abuse patient.[facility] the event this information is protected by the Federal Confidentiality of Alcohol and Drug Abuse Patient Records regulations: The Federal rules restrict any use of the information to criminally investigate or prosecute any alcohol or drug abuse patient.[facility] the event this information is protected by the Federal Confidentiality of Alcohol and Drug Abuse Patient Records regulations: The Federal rules restrict any use of the information to criminally investigate or prosecute any alcohol or drug abuse patient.[facility] the event this information is protected by the Federal Confidentiality of Alcohol and Drug Abuse Patient Records regulations: The Federal rules restrict any use of the information to criminally investigate or prosecute any alcohol or drug abuse patient.[facility] Reason for Visit (unrecogniz ed section and content) Care Teams (unrecognized sec tion and content) Licensed Home Inspector Relationship Specialty Start Date End Date Denny Stevens MD [address] [place] [address] PCP - General Family Medicine 07/21/22 Denny Santos MD [address] [place] [id number] Referring Sports Medicine 08/31/23 Licensed Home Inspector Relationship Specialty Start Date End Date Denny Stevens MD [address] [place], [place] [address] PCP - General Family Medicine 07/21/22 Denny Santos MD [address] [place] [id number] Referring Sports Medicine 08/31/23 FOR RECORDS PERTAINING TO PATIENTS WHO ARE [...] BE BASED ON THE PRIMARY CLINICAL RECORDS. [facility]. provides no warranty or guarantee of the accuracy or completeness of information in this document.
== END | disposition home or self-care (01) ==
LOC: RAD 10:21
PROVIDERS: PCP Family Medicine; Referring Provider Anesthesiology Pain Medicine; Visit Provider Anesthesiology Pain Medicine
DX: M51.36 Other intervertebral disc degeneration, lumbar region (principal)
CPT/HCPCS: 72100

== ENCOUNTER 2023-12-05 11:02 | Emergency (ER) | payer MEDICARE, MEDICAID, SELFPAY ==
[2023-12-05 11:03] VITALS: BP 171/95; PULSE 100; RESP 24; TEMP 35.7; O2SAT 95
--- NOTE | 2023-12-05 11:17 | CT_ITS ---
EXAM: CT LUMBAR SPINE WITH INTRAVENOUS CONTRAST CLINICAL INDICATION: Pain status post injection TECHNIQUE: Helically acquired images were obtained of the lumbar spine with intravenous contrast. 2D reformats were reviewed. This CT exam was performed using one or more of the following dose reduction techniques: automated exposure control, adjustment of the mA and/or kV according to patient size, and/or use of iterative reconstruction technique. CONTRAST: IV 100mL [id number] COMPARISON: CT abdomen pelvis 02/15/2023 FINDINGS: VERTEBRAE: No acute fracture or subluxation. DISCS/SPINAL CANAL/NEURAL FORAMINA: Multilevel disc space narrowing and vertebral body hypertrophy. Facet arthropathy noted at L3-4, L4-5 and L5-S1. Multilevel spinal stenosis related to short pedicles and bony hypertrophic changes. Dysplastic changes of the left hip with secondary degenerative change again noted.. No discrete evidence of disc herniation. VASCULATURE: Visualized abdominal aorta is not dilated. LYMPH NODES: Normal. No retroperitoneal adenopathy. CT/Spine Lumbar WITH Contrast IMPRESSION: 1. Diffuse spinal stenosis related to short pedicles and prominent bony hypertrophy of the facets and vertebral bodies. 2. Dysplastic and degenerative changes of left hip. Electronically Signed: Tyler Lyman MD at 13:04 EDT ,
--- NOTE | 2023-12-05 11:21 | EDS_ITS ---
HPI History of Present Illness Chief Complaint: Back Narrative Narrative: 38-year-old male past medical history of diabetes, chronic hip dysplasia for which he received injection from pain management on 23 November, 11 days ago[address] He sees Dr. Gray. He states the following Thursday approximately 5 days afterwards, he developed pain. He is no longer able to sit. He denies any chills but states he had a fever few days ago as high as 101. He took Tylenol. He states he had the pain management doctor look at the area no redness or swelling was noted. He saw his primary care provider as well who thought there was swelling, so he was put on prednisone. He presents via EMS today because he is having pain at the top of the cleft of his buttocks and it hurts when he sits or lies flat. [facility] Medical History Benign hypertension Bronchial asthma Chest pain Depression GERD (gastroesophageal reflux disease) Gout History of bronchitis History of cerebral palsy History of pneumonia Hypertension Obstructive sleep apnea 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 Seizure disorder Super obesity Type II diabetes mellitus Vertigo Home Medications allopurinol 300 mg tablet 300 mg PO DAILY gout 06/09/15 [History Last Taken 04/13/20 08:00] nebivolol 10 mg tablet 10 mg PO DAILY heart 06/09/15 [History Last Taken 04/13/20 08:00] baclofen 20 mg tablet 20 mg PO DAILY muscle spasms 06/25/18 [History Last Taken 04/13/20 16:00] pantoprazole 40 mg tablet,delayed release 40 mg PO DAILY gi 06/25/18 [History Last Taken 04/13/20 08:00] levetiracetam 500 mg tablet 500 mg PO BID seizures 01/28/20 [History Last Taken 04/13/20 16:00] multivitamin with minerals 1 tab PO DAILY vitamin 01/28/20 [History Last Taken 04/13/20 08:00] acetaminophen 325 mg tablet 650 mg (2 x 325 mg) PO Q6H PRN PRN Pain Score 1- 10/Temp > 100.7 F 04/14/20 [Rx Last Taken Unknown] fluoxetine 10 mg capsule 20 mg PO DAILY depression 08/15/20 [History Last Taken Unknown] furosemide 20 mg tablet 40 mg PO BID diuretic 10/13/21 [History Last Taken Unknown] colchicine 0.6 mg tablet ea PO 12/02/21 [History Last Taken Unknown] liraglutide 0.6 mg/0.1 mL (18 mg/3 mL) subcutaneous pen injector ml subcut 12/02/21 [History Last Taken Unknown] albuterol sulfate 2.5 mg/3 mL (0.083 %) solution for nebulization 2.5 mg (3 mL) inhalation Q4H PRN shortness of breath or wheezing #180 mL 01/05/23 [Rx Last Taken Unknown] albuterol sulfate 90 mcg/actuation aerosol inhaler 2 inh inhalation Q4H PRN PRN Sob &/Or Wheezing #8.5 grams 01/05/23 [Rx Last Taken Unknown] budesonide-formoterol HFA 160 mcg-4.5 mcg/actuation aerosol inhaler (Symbicort) 2 puff inhalation BID #10.2 grams 01/05/23 [Rx Last Taken Unknown] montelukast 10 mg tablet 10 mg PO DAILY allergies #90 tabs 01/05/23 [Rx Last Taken Unknown] spacer #1 ea 01/05/23 [Rx Last Taken Unknown] dapagliflozin propanediol 5 mg tablet (Farxiga) 10 mg PO DAILY 07/23/23 [History Last Taken Unknown] potassium citrate 10 mEq (1,080 mg) tablet,extended release 10 meq PO DAILY 07/23/23 [History Last Taken Unknown] fluticasone propionate 50 mcg/actuation nasal spray,suspension 2 spray intranasal DAILY allergies #16 grams 11/23/23 [Rx Last Taken Unknown] ipratropium bromide 21 mcg (0.03 %) nasal spray 2 spray intranasal BID #30 mL 11/23/23 [Rx Last Taken Unknown] Allergy/AdvReac Type Severity Reaction Status Date / Time animal dander Allergy Chest Verified 11/23/23 13:45 tightness grass pollen Allergy Other Verified 11/23/23 13:45 house dust Allergy Other Verified 11/23/23 13:45 pollen extracts Allergy Other Verified 11/23/23 13:45 Family History Father Chronic a-fib CVA (cerebral vascular accident) Mother ROBERT (obstructive sleep apnea) Breast cancer Grandfather Cancer bladder Other Diabetes Surgical History H/O eye surgery H/O hernia repair S/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 HEENT: No sore throat. No neck pain. No loss of vision. No rhinorrhea. Cardiovascular: No chest pain. No palpitations. No pedal edema. Respiratory: No cough, no shortness of breath. Abdominal: No abdominal pain. No nausea. No vomiting. Genitourinary: No dysuria. No hematuria. Musculoskeletal: No myalgias. No arthralgias. Positive low back pain and sacral pain. Worse with sitting or lying on back. Reported swelling in that area. Neurologic: No headaches. No dizziness. No lightheadedness. Skin: No rash. No change in color. Psychiatric: No depression. No anxiety. EXAM Physical Exam Narrative Exam Narrative: Afebrile. Vital signs noted. Nontoxic-appearing. HEENT: Normocephalic. Atraumatic. PERRL, EOMI. Neck soft and supple. No point tenderness or step off. Cardiovascular: Regular rate and rhythm. No murmurs, rubs, or gallops appreciated. Respiratory: No tachypnea. Lungs clear to auscultation bilaterally. Gastrointestinal: Abdomen soft, obese, nontender, with normoactive bowel sounds. No rebound or guarding. Neurological: Awake. Alert. Nonfocal, nonlateralizing. Able to sit on edge of cot. Skin: No rash. Normal color. No pallor. Musculoskeletal: No pedal edema. Full range of motion extremities. Mild tenderness to palpation above top of buttocks cleft, no noted erythema, no fluctuance. Const Vital Signs: 12/05/23 11:03 Temperature 96.3 F L Temperature Source Temporal Pulse Rate 100 Respiratory Rate 24 H Blood Pressure 171/95 H Blood Pressure Mean 120 Pulse Ox 95 Oxygen Delivery Method Room Air MDM MDM MDM Narrative Medical decision making narrative: In the differential diagnosis is pilonidal abscess versus chronic back pain exacerbation versus sacral abscess/fluid collection status post injection. While I do not feel that an emergent MRI is indicated, I will obtain basic laboratory work along with CT of the lumbar spine and sacrum with IV contrast. Patient is enrolled in pain management taking tramadol. I do not feel that narcotics are currently indicated. I reviewed his laboratory work and he has normal white count of 8.1, hemoglobin normal at 15.2, platelet count normal at 202. Electrolyte panel shows creatinine low at 0.61, chloride slightly elevated at 108 which I think is nonspecific, sodium normal at 139, potassium normal at 4.3. Glucose is appropriately elevated at 129 with anion gap low at 3. I have no concern for diabetic ketoacidosis. I reviewed the CT report which shows no evidence of a fluid collection or pilonidal abscess. There is noted spinal stenosis. At this point in time, he was seen ambulating to the bathroom in his room. I do not feel that he requires admission. He states he is already on prednisone. Britni turpin, I do not feel narcotic pain medication is indicated to treat his pain as he is enrolled in pain management. He will continue his tramadol and take up to 3 g of Tylenol and finish his prednisone. Prior to discharge, he was given 1 shot of Toradol intravenously, along with Zofran for nausea. I feel he can be discharged safely home with follow-up. Return instructions to the emergency department were reviewed. He will follow-up with his primary care provider and pain management doctor on Thursday. Disposition is discharged home in stable condition. History & Record Review Discussion w/independent historian: Patient Lab Data Attestation: I reviewed the patient's lab results. Labs: Laboratory Results - last 24 hr 12/05/23 12/05/23 11:30 13:01 WBC 8.1 RBC 5.43 Hgb 15.2 Hct 47.4 MCV 87.3 MCH 28.0 MCHC 32.1 RDW Std Deviation 49.2 H RDW Coeff of K[place] 15.6 H Plt Count 202 MPV 11.1 Immature Gran % (Auto) 1.000 H Neut % (Auto) 57.5 Lymph % (Auto) 31.9 [place] % (Auto) 7.5 Eos % (Auto) 1.5 Baso % (Auto) 0.6 Absolute Neuts (auto) 4.6 Absolute Lymphs (auto) 2.57 Nucleated RBC % 0 Sodium 139 Potassium 4.3 Chloride 108 H Carbon Dioxide 28.0 Anion Gap 3 L BUN 18 Creatinine 0.61 L Est GFR (MDRD) Af Amer 187 Est GFR (MDRD) Non-Af 155 BUN/Creatinine Ratio 29.3 H Glucose 129 H Calcium 8.9 Total Bilirubin 0.40 AST 36 ALT 48 Alkaline Phosphatase 96 Total Protein 8.1 Albumin 3.6 Globulin 4.5 H Albumin/Globulin Ratio 0.8 L Urine Color Yellow Urine Clarity Sl. Cloudy Urine pH 5.0 Ur Specific [place] 1.010 Urine Protein 30 H Urine Glucose (UA) 1000 H Urine Ketones Negative Urine Occult Blood 150 H Urine Nitrite Negative Urine Bilirubin Negative Urine Urobilinogen Normal Ur Leukocyte Esterase 500 H Urine RBC 0-5 SEEN Urine WBC 25-50 SEEN Ur Squamous Epith Cells 0 SEEN Urine Bacteria 1+ Urine Mucus 0 SEEN Radiography Diagnostic Testing: Clinical Impression(s) from Imaging Studies Lumbar Spine CT 12/05/23 11:17 IMPRESSION: 1. Diffuse spinal stenosis related to short pedicles and prominent bony hypertrophy of the facets and vertebral bodies. 2. Dysplastic and degenerative changes of left hip. Electronically Signed: Tyler Lyman MD at 13:04 EDT Reading Location ID and State: [address] [place] [address] Tel , Service support , Discharge Plan Triage Chief Complaint: Back ED Provider: Romulo Estrella Dx/Rx/DC Orders Clinical Impression: Back pain, Spinal stenosis Instructions: Anatomy of a Normal Spine, ED Back Pain (Acute or Chronic) Prescriptions: No Action colchicine 0.6 mg tablet PO Patient Comments: take 1 tablet by mouth every 6 hours if needed for GOUT FLARE Victoza 3-Foster 0.6 mg/0.1 mL (18 mg/3 mL) pen injector subcut Patient Comments: inject 1.8 milligram subcutaneously daily albuterol sulfate 2.5 mg /3 mL (0.083 %) solution for nebulization 2.5 mg inhalation Q4H PRN (Reason: shortness of breath or wheezing) Qty: 180 11RF albuterol sulfate 90 mcg/actuation HFA aerosol inhaler 2 inh inhalation Q4H PRN PRN (Reason: Sob &/Or Wheezing) Qty: 8.5 11RF budesonide-formoterol [Symbicort] 160-4.5 mcg/actuation HFA aerosol inhaler 2 puff inhalation BID Qty: 10.2 11RF montelukast 10 mg tablet 10 mg PO DAILY Qty: 90 3RF (DME) spacer See Rx Instructions .ROUTE .MEDSUPPLY Qty: 1 0RF Rx Instructions: As directed potassium citrate 10 mEq (1,080 mg) tablet extended release 10 meq PO DAILY Patient Comments: TAKE 1 TABLET BY MOUTH EVERY DAY Farxiga 5 mg tablet 10 mg PO DAILY ipratropium bromide 21 mcg (0.03 %) spray,non-aerosol 2 spray intranasal BID Qty: 30 6RF fluticasone propionate 50 mcg/actuation spray,suspension 2 spray INTRANASAL DAILY Qty: 16 11RF allopurinol 300 MG tablet 300 mg PO DAILY Patient Comments: gout nebivolol 10 MG tablet 10 mg PO DAILY Patient Comments: blood pressure baclofen 20 MG tablet 20 mg PO DAILY pantoprazole 40 MG tablet 40 mg PO DAILY multivitamin with minerals 1 EACH tablet 1 tab PO DAILY levetiracetam 500 MG tablet 500 mg PO BID Patient Comments: seizure fluoxetine 10 mg capsule 20 mg PO DAILY Patient Comments: TAKE 1 CAPSULE BY MOUTH EVERY DAY acetaminophen 325 MG tablet 650 mg PO Q6H PRN PRN (Reason: Pain Score 1-10/Temp > 100.7 F) 0RF furosemide 20 MG tablet 40 mg PO BID Patient Comments: Diuretic (water pill) Primary Care Provider: Aliza Roman Referrals: Alejandro Gray MD [Med Staff - Active Staff] - 2 Days Aliza Roman MD [Primary Care Provider] - 3-5 Days Activity Restrictions/Additional Instructions: Call your pain management physician on Thursday. You can continue Tylenol up to 3 g / 3000 mg a day. Continue your tramadol as previously directed. You have evidence of spinal stenosis on your CT scan. Disposition Disposition: Home, Self Care
[2023-12-05 11:43] LABS: Absolute Lymphocyte Count 2.57 X10^3/uL (0.83-4.51); Absolute Neutrophil Count 4.6 X10^3/uL (2.0-7.7); Basophil# 0.05 X10^3/uL; Basophil% 0.6 % (0-1); Eosinophil# 0.12 X10^3/uL; Eosinophils% 1.5 % (0-5); Hematocrit 47.4 % (40-54); Hemoglobin 15.2 g/dL (13.0-16.5); Lymphocyte # 2.57 X10^3/ul (0.83-4.51); Lymphocyte % 31.9 % (19-41); Mean Corp Hgb Conc 32.1 g/dL (32-36); Mean Corpuscular Volume 87.3 fL (80-94); Mean Platelet Vol. 11.1 fl (6.2-12.0); Monocyte% 7.5 % (0-10); NRBC Flagged by Analyzer 0 % (0-5); Neutrophil # 4.63 X10^3/uL (2.7-7.7); Neutrophil % 57.5 % (47-70); Platelet Count 202 K/mm3 (150-450); RBC Distribution Width CV 15.6 % (11.6-14.6); RBC Distribution Width SD 49.2 fl (35.1-43.9); Red Blood Count 5.43 M/mm3 (4.6-6.2); White Blood Count 8.1 K/mm3 (4.4-11.0)
[2023-12-05 12:16] LABS: ALB/GLOB Ratio 0.8 RATIO (0.9-2.4); AST(SGOT) 36 U/L (15-37); Alanine Aminotransfer ALT/SGPT 48 U/L (16-61); Albumin, Serum 3.6 g/dL (3.2-5.0); Alkaline Phosphatase 96 U/L (45-117); Anion Gap 3 (5-15); BUN 18 mg/dL (7-18); BUN/Creat Ratio 29.3 RATIO (10-20); Calcium,Total 8.9 mg/dL (8.5-10.1); Chloride 108 mmol/L (98-107); Creatinine, Serum 0.61 mg/dL (0.70-1.30); EST Glomerular Filtration Rate 155 mL/min (>60); Est Glom Filt Rate - Afr Amer 187 mL/min (>60); Globulin 4.5 g/dL (2.2-4.2); Glucose 129 mg/dL (74-106); Potassium 4.3 mmol/L (3.5-5.1); Protein, Total 8.1 g/dL (6.4-8.2); Sodium Level 139 mmol/L (136-145)
[2023-12-05 13:10] LABS: Mucous, Urine 0 SEEN /hpf (<or=2+); Squamous Epithelial Cells - UA 0 SEEN /hpf (0-5)
[2023-12-05 13:17] LABS: Color, Urine Yellow (Yellow); Glucose, Dipstick 1000 mg/dl (Normal); Ketone-Dipstick Negative (Negative); Leukocyte Esterase-Dipstick 500 /ul (Negative); Nitrite-Dipstick Negative (Negative); Occult Blood-Urine 150 /ul (Negative); Protein-Dipstick 30 mg/dl (Negative); Urine Bilirubin Dipstick Negative (Negative); Urine Clarity Sl. Cloudy (Clear); Urine Urobilinogen Normal (Normal)
[2023-12-05 13:34] LABS: Bacteria 1+ /hpf (None Seen); Red Blood Cells-Urine 0-5 SEEN /hpf (0-5); White Blood Cells 25-50 SEEN /hpf (0-5)
[2023-12-05] MEDS: Ondansetron 4 MG/2 ML Vial IV (14:13)
[2023-12-05] MEDS: Ketorolac 30 MG/ML Syringe IV (14:13)
[2023-12-05 14:42] VITALS: BP 162/84; PULSE 86; RESP 20; TEMP 36.6; O2SAT 95
== END 2023-12-05 14:43 | disposition home or self-care (01) ==
PROVIDERS: Emergency Provider Emergency Medicine; PCP Family Medicine; Visit Provider Emergency Medicine
DX: M48.00 Spinal stenosis, site unspecified (principal); E11.9 Type 2 diabetes mellitus without complications; G47.33 Obstructive sleep apnea (adult) (pediatric)
CPT/HCPCS: 72132; 80053; 81001; 85025; 96374; 96375; 99282; Q9967; J2405

== ENCOUNTER 2023-12-18 22:27 | Emergency (ER) | payer MEDICARE, MEDICAID, SELFPAY ==
[2023-12-18 22:28] VITALS: BP 137/65; PULSE 91; RESP 18; TEMP 36.9; O2SAT 98; BMI 58.1
[2023-12-18 22:54] VITALS: BP 133/86; PULSE 84; RESP 18; O2SAT 97
--- NOTE | 2023-12-18 23:01 | ED.VIS.BACK ---
HPI History of Present Illness Chief Complaint: Back Informant: patient Narrative Narrative: Patient presents with acute on chronic back pain. Patient has been following with Dr. Gray for pain management secondary to back pain. Earlier this month he had an injection in his back. Since that time he has an area just superior to the injection site that is swollen and painful. He was seen in the emergency room on the sixth and had a CT of the lumbar spine that showed some spinal stenosis. There was no evidence of abscess. Patient has seen his primary care physician as well as pain management since and states that his pain is not controlled. 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 He is on baclofen twice a day as well. His PCP recently put him on a prednisone taper that he states did not help. He states he has numbness radiating down the backs of both legs today. There is been no new injury. He has no fever or chills. He states he called his insurance company and they recommended he come back to the emergency room. [facility] Medical History Benign hypertension Bronchial asthma Chest pain Depression GERD (gastroesophageal reflux disease) Gout History of bronchitis History of cerebral palsy History of pneumonia Hypertension Obstructive sleep apnea 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 Seizure disorder Super obesity Type II diabetes mellitus Vertigo Home Medications allopurinol 300 mg tablet 300 mg PO DAILY gout 06/09/15 [History Last Taken 04/13/20 08:00] nebivolol 10 mg tablet 10 mg PO DAILY heart 06/09/15 [History Last Taken 04/13/20 08:00] baclofen 20 mg tablet 20 mg PO DAILY muscle spasms 06/25/18 [History Last Taken 04/13/20 16:00] pantoprazole 40 mg tablet,delayed release 40 mg PO DAILY gi 06/25/18 [History Last Taken 04/13/20 08:00] levetiracetam 500 mg tablet 500 mg PO BID seizures 01/28/20 [History Last Taken 04/13/20 16:00] multivitamin with minerals 1 tab PO DAILY vitamin 01/28/20 [History Last Taken 04/13/20 08:00] acetaminophen 325 mg tablet 650 mg (2 x 325 mg) PO Q6H PRN PRN Pain Score 1-10/Temp > 100.7 F 04/14/20 [Rx Last Taken Unknown] fluoxetine 10 mg capsule 20 mg PO DAILY depression 08/15/20 [History Last Taken Unknown] furosemide 20 mg tablet 40 mg PO BID diuretic 10/13/21 [History Last Taken Unknown] colchicine 0.6 mg tablet ea PO 12/02/21 [History Last Taken Unknown] liraglutide 0.6 mg/0.1 mL (18 mg/3 mL) subcutaneous pen injector ml subcut 12/02/21 [History Last Taken Unknown] albuterol sulfate 2.5 mg/3 mL (0.083 %) solution for nebulization 2.5 mg (3 mL) inhalation Q4H PRN shortness of breath or wheezing #180 mL 01/05/23 [Rx Last Taken Unknown] albuterol sulfate 90 mcg/actuation aerosol inhaler 2 inh inhalation Q4H PRN PRN Sob &/Or Wheezing #8.5 grams 01/05/23 [Rx Last Taken Unknown] budesonide-formoterol HFA 160 mcg-4.5 mcg/actuation aerosol inhaler (Symbicort) 2 puff inhalation BID #10.2 grams 01/05/23 [Rx Last Taken Unknown] montelukast 10 mg tablet 10 mg PO DAILY allergies #90 tabs 01/05/23 [Rx Last Taken Unknown] spacer #1 ea 01/05/23 [Rx Last Taken Unknown] dapagliflozin propanediol 5 mg tablet (Farxiga) 10 mg PO DAILY 07/23/23 [History Last Taken Unknown] potassium citrate 10 mEq (1,080 mg) tablet,extended release 10 meq PO DAILY 07/23/23 [History Last Taken Unknown] fluticasone propionate 50 mcg/actuation nasal spray,suspension 2 spray intranasal DAILY allergies #16 grams 11/23/23 [Rx Last Taken Unknown] ipratropium bromide 21 mcg (0.03 %) nasal spray 2 spray intranasal BID #30 mL 11/23/23 [Rx Last Taken Unknown] hydrocodone-acetaminophen 5-325mg 5mg-325mg 1 tab PO TID 12/18/23 [History Last Taken Unknown] naproxen 500 mg tablet (Naprosyn) 500 mg PO BID PRN pain #20 tabs 12/19/23 [Rx Last Taken Unknown] Allergy/AdvReac Type Severity Reaction Status Date / Time animal dander Allergy Chest Verified 12/18/23 22:29 tightness grass pollen Allergy Other Verified 12/18/23 22:29 house dust Allergy Other Verified 12/18/23 22:29 pollen extracts Allergy Other Verified 12/18/23 22:29 Family History Father Chronic a-fib CVA (cerebral vascular accident) Mother ROBERT (obstructive sleep apnea) Breast cancer Grandfather Cancer bladder Other Diabetes Surgical History H/O eye surgery H/O hernia repair S/P PROGRAMMER OR 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 shunt Social History Smoking Status: Never smoker ROS ROS ED Constitutional Constitutional ED: Denies chills or fever(s) Eyes Eyes: Denies discharge from eye(s) ENT ENT ED: Denies discharge from eye(s), rhinorrhea or sore throat Cardiovascular Cardiovascular: Denies chest pain or palpitations Respiratory/Chest Respiratory/Chest: Denies cough or dyspnea Gastrointestinal Gastrointestinal: Denies abdominal pain, nausea or vomiting Genitourinary Genitourinary ED: Denies dysuria or hematuria Musculoskeletal Musculoskeletal: Reports back pain; Denies extremity pain Integumentary Denies Abrasions or rash Neurologic Neurologic: Reports paresthesias RLE and LLE; Denies headache(s) or weakness Psychiatric Psychiatric: Reports anxiety and depression Allergic/Immunologic Allergic/Immunologic ED: Denies lip swelling or urticaria EXAM Physical Exam Const Vital Signs: 12/18/23 22:28 12/18/23 22:54 12/19/23 00:54 Temperature 98.4 F Temperature Source Oral Pulse Rate 91 84 99 Respiratory Rate 18 18 20 H Blood Pressure 137/65 H 133/86 H 128/96 H Blood Pressure Mean 89 101 106 Pulse Ox 98 97 91 Oxygen Delivery Method Room Air Room Air Room Air Positive obese Nutritional Appearance: obese HEENT Reports moist mucous membranes Eyes EOMs intact bilaterally Resp normal respiratory effort and clear to auscultation bilaterally Cardio regular rate and regular rhythm GI soft to palpation and non-tender Back/Spine Back/Spine Narrative: Reproducible tenderness over the low lumbar spine midline. No erythema. No palpable masses. Extremity normal to inspection Extremity Narrative: Good distal pulses in the lower extremities. No focal neurologic deficit appreciated. Psych Mood & Affect: sad and tearful Skin no rashes or lesions noted MDM MDM MDM Narrative Medical decision making narrative: IV line established. Labwork obtained to evaluate for leukocytosis, anemia, and electrolyte derangement. Lumbar spine CT with IV contrast to be obtained to evaluate for any evidence of abscess or abnormal fluid collection. Patient given a dose of Dilaudid and Zofran here for pain control. History & Record Review Discussion w/independent historian: Patient Additional record(s) reviewed:: Prior ED visit and Prior labs Lab Data Attestation: I reviewed the patient's lab results. Labs: Laboratory Results - last 24 hr 12/18/23 23:25 WBC 9.5 RBC 5.09 Hgb 14.7 Hct 44.7 MCV 87.8 MCH 28.9 MCHC 32.9 RDW Std Deviation 48.0 H RDW Coeff of [place] 15.2 H Plt Count 225 MPV 10.8 Immature Gran % (Auto) 0.800 Neut % (Auto) 60.9 Lymph % (Auto) 27.8 [place] % (Auto) 7.9 Eos % (Auto) 2.0 Baso % (Auto) 0.6 Absolute Neuts (auto) 5.8 Absolute Lymphs (auto) 2.65 Nucleated RBC % 0 Sodium 139 Potassium 4.6 Chloride 104 Carbon Dioxide 31.0 Anion Gap 4 L BUN 19 H Creatinine 0.70 Estim Creat Clear Calc 194.38 Est GFR (MDRD) Af Amer 160 Est GFR (MDRD) Non-Af 133 BUN/Creatinine Ratio 27.1 H Glucose 216 H Calcium 8.7 Radiography Diagnostic Testing: Clinical Impression(s) from Imaging Studies Lumbar Spine CT 12/19/23 00:10 IMPRESSION: 1. No acute abnormalities identified involving the lumbar spine. 2. Degenerative changes. Electronically Signed: Tripp Vogel MD at 1:05 EDT , Treatment and Re-Evaluation Narrative: CBC reveals normal white count 9.5 with a hemoglobin of 14.7. Chemistry studies remarkable only for glucose of 216. Renal function is normal. CT scan of the lumbar spine with IV contrast reveals no evidence of focal fluid collection. No acute abnormalities are identified. No critical stenosis. After the patient received 0.5 mg of Dilaudid he did have some mild hypoxia with a sat of 85%. He does normally wear CPAP at night for sleep apnea. He was placed on 2 L nasal cannula. He states that the numbness in his legs resolved with pain medication. At this time he is alert and appropriate. He is satting 96% on room air. I will write him a prescription for naproxen. 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 Return instructions provided. Discharge Plan Triage Chief Complaint: Back ED Provider: Zeny Dumont Dx/Rx/DC Orders Clinical Impression: Back pain Instructions: ED Back Pain (Acute or Chronic) Prescriptions: New naproxen [Naprosyn] 500 mg tablet 500 mg PO BID PRN (Reason: pain) Qty: 20 0RF No Action colchicine 0.6 mg tablet PO Patient Comments: take 1 tablet by mouth every 6 hours if needed for GOUT FLARE Victoza 3-Foster 0.6 mg/0.1 mL (18 mg/3 mL) pen injector subcut Patient Comments: inject 1.8 milligram subcutaneously daily albuterol sulfate 2.5 mg /3 mL (0.083 %) solution for nebulization 2.5 mg inhalation Q4H PRN (Reason: shortness of breath or wheezing) Qty: 180 11RF albuterol sulfate 90 mcg/actuation HFA aerosol inhaler 2 inh inhalation Q4H PRN PRN (Reason: Sob &/Or Wheezing) Qty: 8.5 11RF budesonide-formoterol [Symbicort] 160-4.5 mcg/actuation HFA aerosol inhaler 2 puff inhalation BID Qty: 10.2 11RF montelukast 10 mg tablet 10 mg PO DAILY Qty: 90 3RF (DME) spacer See Rx Instructions .ROUTE .MEDSUPPLY Qty: 1 0RF Rx Instructions: As directed potassium citrate 10 mEq (1,080 mg) tablet extended release 10 meq PO DAILY Patient Comments: TAKE 1 TABLET BY MOUTH EVERY DAY Farxiga 5 mg tablet 10 mg PO DAILY ipratropium bromide 21 mcg (0.03 %) spray,non-aerosol 2 spray intranasal BID Qty: 30 6RF fluticasone propionate 50 mcg/actuation spray,suspension 2 spray INTRANASAL DAILY Qty: 16 11RF allopurinol 300 MG tablet 300 mg PO DAILY Patient Comments: gout nebivolol 10 MG tablet 10 mg PO DAILY Patient Comments: blood pressure baclofen 20 MG tablet 20 mg PO DAILY pantoprazole 40 MG tablet 40 mg PO DAILY multivitamin with minerals 1 EACH tablet 1 tab PO DAILY levetiracetam 500 MG tablet 500 mg PO BID Patient Comments: seizure fluoxetine 10 mg capsule 20 mg PO DAILY Patient Comments: TAKE 1 CAPSULE BY MOUTH EVERY DAY acetaminophen 325 MG tablet 650 mg PO Q6H PRN PRN (Reason: Pain Score 1-10/Temp > 100.7 F) 0RF furosemide 20 MG tablet 40 mg PO BID Patient Comments: Diuretic (water pill) hydrocodone-acetaminophen 5-325 mg tablet 1 tab PO TID Primary Care Provider: Aliza Roman Referrals: Alejandro Gray MD [Med Staff - Active Staff] - 1 Week Aliza Roman MD [Primary Care Provider] - Disposition Disposition: Home, Self Care
[2023-12-18] MEDS: Ondansetron 4 MG/2 ML Vial IV (23:25)
[2023-12-18] MEDS: HYDROmorphone 1 MG/ML Syringe 0.5 MG IV (23:25)
[2023-12-18] MEDS: 0.9% Normal Saline (1000mL) 1,000 ML 150 ML IV (23:25)
[2023-12-18 23:32] LABS: Absolute Lymphocyte Count 2.65 X10^3/uL (0.83-4.51); Absolute Neutrophil Count 5.8 X10^3/uL (2.0-7.7); Basophil# 0.06 X10^3/uL; Basophil% 0.6 % (0-1); Eosinophil# 0.19 X10^3/uL; Hematocrit 44.7 % (40-54); Hemoglobin 14.7 g/dL (13.0-16.5); Lymphocyte # 2.65 X10^3/ul (0.83-4.51); Lymphocyte % 27.8 % (19-41); Mean Corp Hgb Conc 32.9 g/dL (32-36); Mean Corpuscular Hgb 28.9 pg (27.0-32.0); Mean Corpuscular Volume 87.8 fL (80-94); Mean Platelet Vol. 10.8 fl (6.2-12.0); Monocyte# 0.75 X10^3/uL; Monocyte% 7.9 % (0-10); NRBC Flagged by Analyzer 0 % (0-5); Neutrophil # 5.81 X10^3/uL (2.7-7.7); Neutrophil % 60.9 % (47-70); Platelet Count 225 K/mm3 (150-450); RBC Distribution Width CV 15.2 % (11.6-14.6); Red Blood Count 5.09 M/mm3 (4.6-6.2); White Blood Count 9.5 K/mm3 (4.4-11.0)
[2023-12-18 23:59] LABS: Anion Gap 4 (5-15); BUN 19 mg/dL (7-18); BUN/Creat Ratio 27.1 RATIO (10-20); Calcium,Total 8.7 mg/dL (8.5-10.1); Chloride 104 mmol/L (98-107); EST Glomerular Filtration Rate 133 mL/min (>60); Est Glom Filt Rate - Afr Amer 160 mL/min (>60); Estimated Creatinine Clearance 194.38 ml/min; Glucose 216 mg/dL (74-106); Potassium 4.6 mmol/L (3.5-5.1); Sodium Level 139 mmol/L (136-145)
--- NOTE | 2023-12-19 00:10 | CT_ITS ---
EXAM: CT LUMBAR SPINE WITH INTRAVENOUS CONTRAST CLINICAL INDICATION: pain after injection TECHNIQUE: Helically acquired images were obtained of the lumbar spine with intravenous contrast. 2D reformats were reviewed. This CT exam was performed using one or more of the following dose reduction techniques: automated exposure control, adjustment of the mA and/or kV according to patient size, and/or use of iterative reconstruction technique. CONTRAST: IV 100mL [id number] RADIATION DOSE: CTDIvol = 73.11 mGy, DLP = 2708.88 mGy-cm COMPARISON: CT lumbar spine 12/05/2023. FINDINGS: VERTEBRAE: Facet joint hypertrophy. No fracture. No traumatic subluxation. No discrete lytic or blastic abnormality. Normal alignment. DISCS/SPINAL CANAL/NEURAL FORAMINA: Degenerative changes of the intervertebral discs throughout the lumbar spine. No critical stenosis. VASCULATURE: Visualized abdominal aorta is not dilated. LYMPH NODES: Unremarkable. No retroperitoneal adenopathy. CT/Spine Lumbar WITH Contrast IMPRESSION: 1. No acute abnormalities identified involving the lumbar spine. 2. Degenerative changes. Electronically Signed: Tripp Vogel MD at 1:05 EDT ,
[2023-12-19 00:54] VITALS: BP 128/96; PULSE 99; RESP 20; O2SAT 91
== END 2023-12-19 01:40 | disposition home or self-care (01) ==
PROVIDERS: Emergency Provider Emergency Medicine; PCP Family Medicine; Visit Provider Emergency Medicine
DX: M54.9 Dorsalgia, unspecified (principal); E11.9 Type 2 diabetes mellitus without complications; I10 Essential (primary) hypertension; M10.9 Gout, unspecified; K21.9 Gastro-esophageal reflux disease without esophagitis; F32.A Depression, unspecified; Z79.899 Other long term (current) drug therapy; Z79.85 Long-term (current) use of injectable non-insulin antidiabetic drugs; G47.30 Sleep apnea, unspecified; Z99.89 Dependence on other enabling machines and devices; R09.02 Hypoxemia
CPT/HCPCS: 72132; 80048; 85025; 96361; 96374; 96375; 99284; J7030; Q9967; A4216; J2405

== ENCOUNTER 2023-12-23 17:07 | Emergency (ER) | payer MEDICARE, MEDICAID, SELFPAY ==
[2023-12-23 17:08] VITALS: BP 148/94; PULSE 81; RESP 18; TEMP 36.2; O2SAT 94
--- NOTE | 2023-12-23 18:50 | CT_ITS ---
INDICATION: Seizure EXAMINATION: CT BRAIN - CT Head or Brain W/O Contrast Injection TECHNIQUE: Multiple axial images were obtained of the head without intravenous contrast. A radiation dose optimization technique was used for this scan. IV Contrast dosage and agent: None. COMPARISON: None FINDINGS: BRAIN PARENCHYMA: Right parietal ventricular shunt is in place with slight relative decrease size of right lateral ventricle compared with left ventricle. No hydrocephalus. No midline shift. No intra- or extra-axial hemorrhage. No evidence of acute infarct. No intracranial mass or mass effect. Unremarkable white matter for age. There is preservation of the pérez/white matter interface. Posterior fossa structures are unremarkable. CSF SPACES: Cerebral volume appropriate for age. No hydrocephalus. Basal cisterns are patent. CALVARIUM, SKULL BASE, PARANASAL SINUSES AND MASTOID AIR CELLS: No acute osseous finding. Left maxillary mucous retention cyst.. Mastoid air cells are clear. ORBITS: Both globes, extraocular muscles, optic nerves and retrobulbar fat appear unremarkable. ASPECTS Score for Acute Strokes: 10 CT/Brain/Head without Contrast IMPRESSION: Right parietal ventricular shunt in place with relatively small right lateral ventricle . No other acute intracranial finding. Electronically Signed: Yvan Díaz MD at 20:03 EDT ,
--- NOTE | 2023-12-23 18:50 | RAD_ITS ---
INDICATION: headache EXAMINATION/TECHNIQUE: X-RAY - XR Shuntogram (Previously Placed) COMPARISON: October 30, 2023 lumbar spine radiograph. FINDINGS: Lateral head and neck, frontal chest, frontal abdominal radiograph submitted for review. No evidence of shunt disruption on provided images. Lungs are clear. Nonobstructive bowel gas pattern. RAD/Shuntogram/Prev Placed Shunt IMPRESSION: No evidence of shunt disruption. Electronically Signed: Yvan Díaz MD at 20:07 EDT ,
--- NOTE | 2023-12-23 18:50 | EKG12_ITS ---
Test Reason : BACK PAIN Blood Pressure : / mmHG Vent. Rate : 080 BPM Atrial Rate : 080 BPM P-R Int : 154 ms QRS Dur : 114 ms QT Int : 400 ms P-R-T Axes : 044 082 025 degrees QTc Int : 461 ms Sinus rhythm with Fusion complexes Incomplete right bundle branch block Borderline ECG Confirmed by MARCY GONZALEZ, FAN ([id number]), editor school photograph BHAKTI ABRAHAM ([id number]) on 12/24/2023 11:39:50 AM Referred By: Confirmed By:FAN VIDAL MD
--- NOTE | 2023-12-23 18:52 | EDS_ITS ---
HPI History of Present Illness Chief Complaint: Back Narrative Narrative: 38-year-old male presenting with either an episode of syncope or seizure. He has a history of seizure and is on Keppra. He has not had one in a while but he does report that he is having difficulty sleeping secondary to chronic back pain and sleep apnea. He does wear a CPAP. Patient is unable to get comfortable when he sleeps he was a chronic back pain. She has pain management for this. Patient states today he was started on duloxetine and took his first dose and noted that he started to feel very anxious today and he went to his knees and grabbed a hold of the table next to him and apparently started shaking and did not fall and hit his head per his girlfriend but did go unresponsive for several minutes. He states that initially he could hear her talking but could not respond and he states when he woke up he was a little confused for about 10 minutes. He has a mild headache and some mild neck pain. He has chronic back pain with no real change. Patient denies any chest pain or shortness of breath associate with the episode. Patient also has a history of a SEISMIC PROSPECTING OBSERVER HELPER shunt. He denies nausea, vomiting, visual complaints. His hearing is normal. He does not have any numbness or tingling anywhere. [facility] Medical History Benign hypertension Bronchial asthma Chest pain Depression GERD (gastroesophageal reflux disease) Gout History of bronchitis History of cerebral palsy History of pneumonia Hypertension Obstructive sleep apnea 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 Seizure disorder Super obesity Type II diabetes mellitus Vertigo Home Medications allopurinol 300 mg tablet 300 mg PO DAILY gout 06/09/15 [History Last Taken 04/13/20 08:00] nebivolol 10 mg tablet 10 mg PO DAILY heart 06/09/15 [History Last Taken 04/13/20 08:00] baclofen 20 mg tablet 20 mg PO Q12H muscle spasms 06/25/18 [History Last Taken 04/13/20 16:00] pantoprazole 40 mg tablet,delayed release 40 mg PO DAILY gi 06/25/18 [History Last Taken 04/13/20 08:00] levetiracetam 500 mg tablet 500 mg PO BID seizures 01/28/20 [History Last Taken 04/13/20 16:00] multivitamin with minerals 1 tab PO DAILY vitamin 01/28/20 [History Last Taken 04/13/20 08:00] acetaminophen 325 mg tablet 650 mg (2 x 325 mg) PO Q6H PRN PRN Pain Score 1- 10/Temp > 100.7 F 04/14/20 [Rx Last Taken Unknown] fluoxetine 10 mg capsule 20 mg PO DAILY depression 08/15/20 [History Last Taken Unknown] furosemide 20 mg tablet 40 mg PO BID diuretic 10/13/21 [History Last Taken Unknown] colchicine 0.6 mg tablet 0.6 mg PO PRN gout 12/02/21 [History Last Taken Unknown] albuterol sulfate 2.5 mg/3 mL (0.083 %) solution for nebulization 2.5 mg (3 mL) inhalation Q4H PRN shortness of breath or wheezing #180 mL 01/05/23 [Rx Last Taken Unknown] albuterol sulfate 90 mcg/actuation aerosol inhaler 2 inh inhalation Q4H PRN PRN Sob &/Or Wheezing #8.5 grams 01/05/23 [Rx Last Taken Unknown] budesonide-formoterol HFA 160 mcg-4.5 mcg/actuation aerosol inhaler (Symbicort) 2 puff inhalation BID #10.2 grams 01/05/23 [Rx Last Taken Unknown] montelukast 10 mg tablet 10 mg PO DAILY allergies #90 tabs 01/05/23 [Rx Last Taken Unknown] spacer #1 ea 01/05/23 [Rx Last Taken Unknown] potassium citrate 10 mEq (1,080 mg) tablet,extended release 10 meq PO DAILY 07/23/23 [History Last Taken Unknown] fluticasone propionate 50 mcg/actuation nasal spray,suspension 2 spray intranasal DAILY allergies #16 grams 11/23/23 [Rx Last Taken Unknown] ipratropium bromide 21 mcg (0.03 %) nasal spray 2 spray intranasal BID #30 mL 11/23/23 [Rx Last Taken Unknown] hydrocodone-acetaminophen 5-325mg 5mg-325mg 1 tab PO Q6H 12/18/23 [History Last Taken Unknown] naproxen 500 mg tablet (Naprosyn) 500 mg PO BID PRN pain #20 tabs 12/19/23 [Rx Last Taken Unknown] semaglutide 0.25 mg or 0.5 mg (2 mg/3 mL) subcutaneous pen injector (Ozempic) 0.5 mg subcut QWEEK 12/23/23 [History Last Taken Unknown] tramadol 50 mg tablet 50 mg PO TID 12/23/23 [History Last Taken Unknown] Allergy/AdvReac Type Severity Reaction Status Date / Time animal dander Allergy Chest Verified 12/23/23 17:12 tightness grass pollen Allergy Other Verified 12/23/23 17:12 house dust Allergy Other Verified 12/23/23 17:12 pollen extracts Allergy Other Verified 12/23/23 17:12 Family History Father Chronic a-fib CVA (cerebral vascular accident) Mother ROBERT (obstructive sleep apnea) Breast cancer Grandfather Cancer bladder Other Diabetes Surgical History H/O eye surgery H/O hernia repair S/P SEISMIC PROSPECTING OBSERVER HELPER shunt Social History Smoking Status: Never smoker ROS ROS ED Constitutional Constitutional ED: Denies chills, fever(s) or sweats Eyes Eyes: Denies blurry vision or change in vision ENT ENT ED: Denies ear pain or sore throat Cardiovascular Cardiovascular: Denies chest pain, palpitations or racing heartbeat Respiratory/Chest Respiratory/Chest: Denies cough, dyspnea or sputum Gastrointestinal Gastrointestinal: Denies abdominal pain, constipation, diarrhea, nausea or vomiting Genitourinary Genitourinary ED: Denies dysuria, hematuria or urinary frequency Musculoskeletal Musculoskeletal: Reports back pain; Denies arthralgias, myalgias or neck pain Integumentary Denies abscess, Abrasions or rash Neurologic Neurologic: Reports headache(s); Denies paresthesias or weakness Psychiatric Psychiatric: Denies anxiety, depression, suicidal ideation or suicidal thoughts Endocrine Endocrinology: Denies polydipsia or polyuria EXAM Physical Exam Const Vital Signs: 12/23/23 17:08 12/23/23 19:07 12/23/23 21:00 Temperature 97.2 F L Temperature Source Temporal Pulse Rate 81 65 71 Respiratory Rate 18 18 12 Blood Pressure 148/94 H 120/78 113/80 Blood Pressure Mean 112 92 91 Pulse Ox 94 94 100 Oxygen Delivery Method Room Air Room Air Room Air 12/23/23 22:37 Temperature 98.5 F Temperature Source Pulse Rate 76 Respiratory Rate 18 Blood Pressure 126/76 H Blood Pressure Mean 92 Pulse Ox 94 Oxygen Delivery Method Positive well nourished General Appearance ED: NAD HEENT atraumatic and trauma Eyes PERRL and EOMs intact bilaterally Resp normal respiratory effort Auscultation: Negative for rales, rhonchi or wheezes Cardio regular rhythm GI normal to inspection, nondistended, normoactive bowel sounds Extremity normal to inspection Neuro CN's II-XII intact bilaterally, moves all extremities, no focal motor deficits and no sensory deficits noted Omayra Coma Scale: document GCS findings Spontaneous Obeys Commands Oriented 15 Motor Exam: strength 5/5 throughout Psych mental status grossly normal Skin no rashes or lesions noted and no wounds MDM MDM MDM Narrative Medical decision making narrative: 38-year-old male presenting after episode of anxiety and he is concerned he might have a seizure or syncope. No history of syncope but does have history of seizure. Patient on Keppra and has not missed any doses. Differential seizure, syncope, dehydration, anemia, electrolyte normalities, intracranial hemorrhage, C-spine fracture, anxiety. CT brain will be obtained. X-rays will be obtained. CBC to assess for blood cell count, hemoglobin, platelets. CMP to assess liver function and renal function electrolytes, glucose. High-sensitivity troponin and EKG to assess for ischemia/dysrhythmia. Patient CBC shows normal white blood cell count, hemoglobin, platelets. Renal function electrolytes are normal. LFTs are normal. CT of the brain shows no acute process. Shuntogram was negative. EKG on my interpretation showed normal sinus rhythm without any evidence of ischemia or dysrhythmia. Patient was given IV fluids. We discussed his workup being negative. I suspect he might of had a breakthrough seizure due to the slight postictal phase. I recommend he continue his medication at home and return precautions were discussed. He will follow-up with his pain management physician for his back pain. He stated that he will discontinue his duloxetine since he started that today and was unsure if this is causing his symptoms. Impression 1. Breakthrough seizure 2. History of back pain Lab Data Labs: Laboratory Results - last 24 hr 12/23/23 19:00 WBC 8.2 RBC 5.30 Hgb 15.1 Hct 46.0 MCV 86.8 MCH 28.5 MCHC 32.8 RDW Std Deviation 47.8 H RDW Coeff of [place] 15.3 H Plt Count 218 MPV 10.2 Immature Gran % (Auto) 1.200 H Neut % (Auto) 67.2 Lymph % (Auto) 21.6 [place] % (Auto) 7.3 Eos % (Auto) 2.2 Baso % (Auto) 0.5 Absolute Neuts (auto) 5.5 Absolute Lymphs (auto) 1.77 Nucleated RBC % 0 Sodium 138 Potassium 4.3 Chloride 102 Carbon Dioxide 32.0 Anion Gap 4 L BUN 15 Creatinine 0.68 L Estim Creat Clear Calc 204.27 Est GFR (MDRD) Af Amer 167 Est GFR (MDRD) Non-Af 138 BUN/Creatinine Ratio 22.1 H Glucose 243 H Calcium 9.1 Total Bilirubin 0.40 AST 31 ALT 41 Alkaline Phosphatase 84 Troponin I High Sens < 3 L Total Protein 8.2 Albumin 3.7 Globulin 4.5 H Albumin/Globulin Ratio 0.8 L Radiography Diagnostic Testing: Clinical Impression(s) from Imaging Studies Brain CT 12/23/23 18:50 IMPRESSION: Right parietal ventricular shunt in place with relatively small right lateral ventricle . No other acute intracranial finding. Electronically Signed: Yvan Díaz MD at 20:03 EDT , Shuntogram 12/23/23 18:50 IMPRESSION: No evidence of shunt disruption. Electronically Signed: Yvan Díaz MD at 20:07 EDT , Discharge Plan Triage Chief Complaint: Back ED Provider: Robinson Guillen Dx/Rx/DC Orders Instructions: ED Back Pain (Acute or Chronic), ED Seizure, Recurrent (Adult), ED SEISMIC PROSPECTING OBSERVER HELPER Shunt Prescriptions: No Action colchicine 0.6 mg tablet 0.6 mg PO PRN Patient Comments: take 1 tablet by mouth every 6 hours if needed for GOUT FLARE albuterol sulfate 2.5 mg /3 mL (0.083 %) solution for nebulization 2.5 mg inhalation Q4H PRN (Reason: shortness of breath or wheezing) Qty: 180 11RF albuterol sulfate 90 mcg/actuation HFA aerosol inhaler 2 inh inhalation Q4H PRN PRN (Reason: Sob &/Or Wheezing) Qty: 8.5 11RF budesonide-formoterol [Symbicort] 160-4.5 mcg/actuation HFA aerosol inhaler 2 puff inhalation BID Qty: 10.2 11RF montelukast 10 mg tablet 10 mg PO DAILY Qty: 90 3RF (DME) spacer See Rx Instructions .ROUTE .MEDSUPPLY Qty: 1 0RF Rx Instructions: As directed potassium citrate 10 mEq (1,080 mg) tablet extended release 10 meq PO DAILY Patient Comments: TAKE 1 TABLET BY MOUTH EVERY DAY ipratropium bromide 21 mcg (0.03 %) spray,non-aerosol 2 spray intranasal BID Qty: 30 6RF fluticasone propionate 50 mcg/actuation spray,suspension 2 spray INTRANASAL DAILY Qty: 16 11RF allopurinol 300 MG tablet 300 mg PO DAILY Patient Comments: gout nebivolol 10 MG tablet 10 mg PO DAILY Patient Comments: blood pressure baclofen 20 MG tablet 20 mg PO Q12H pantoprazole 40 MG tablet 40 mg PO DAILY multivitamin with minerals 1 EACH tablet 1 tab PO DAILY levetiracetam 500 MG tablet 500 mg PO BID Patient Comments: seizure fluoxetine 10 mg capsule 20 mg PO DAILY Patient Comments: TAKE 1 CAPSULE BY MOUTH EVERY DAY acetaminophen 325 MG tablet 650 mg PO Q6H PRN PRN (Reason: Pain Score 1-10/Temp > 100.7 F) 0RF furosemide 20 MG tablet 40 mg PO BID Patient Comments: Diuretic (water pill) Ozempic 0.25 mg or 0.5 mg (2 mg/3 mL) pen injector 0.5 mg subcut QWEEK tramadol 50 mg tablet 50 mg PO TID hydrocodone-acetaminophen 5-325 mg tablet 1 tab PO Q6H naproxen [Naprosyn] 500 mg tablet 500 mg PO BID PRN (Reason: pain) Qty: 20 0RF Primary Care Provider: Aliza Roman Referrals: Aliza Roman MD [Primary Care Provider] - Disposition Disposition: Home, Self Care Discharge Date/Time: 12/23/23 22:38
[2023-12-23] MEDS: 0.9% Normal Saline (1000mL) 1,000 ML 1000 ML IV (19:05)
[2023-12-23 19:06] VITALS: BMI 60.0
[2023-12-23 19:07] VITALS: BP 120/78; PULSE 65; RESP 18; O2SAT 94
[2023-12-23 19:07] LABS: Absolute Lymphocyte Count 1.77 X10^3/uL (0.83-4.51); Absolute Neutrophil Count 5.5 X10^3/uL (2.0-7.7); Basophil# 0.04 X10^3/uL; Basophil% 0.5 % (0-1); Eosinophil# 0.18 X10^3/uL; Eosinophils% 2.2 % (0-5); Hemoglobin 15.1 g/dL (13.0-16.5); Lymphocyte # 1.77 X10^3/ul (0.83-4.51); Lymphocyte % 21.6 % (19-41); Mean Corp Hgb Conc 32.8 g/dL (32-36); Mean Corpuscular Hgb 28.5 pg (27.0-32.0); Mean Corpuscular Volume 86.8 fL (80-94); Mean Platelet Vol. 10.2 fl (6.2-12.0); Monocyte% 7.3 % (0-10); NRBC Flagged by Analyzer 0 % (0-5); Neutrophil % 67.2 % (47-70); Platelet Count 218 K/mm3 (150-450); RBC Distribution Width CV 15.3 % (11.6-14.6); RBC Distribution Width SD 47.8 fl (35.1-43.9); White Blood Count 8.2 K/mm3 (4.4-11.0)
[2023-12-23 19:39] LABS: ALB/GLOB Ratio 0.8 RATIO (0.9-2.4); AST(SGOT) 31 U/L (15-37); Alanine Aminotransfer ALT/SGPT 41 U/L (16-61); Albumin, Serum 3.7 g/dL (3.2-5.0); Alkaline Phosphatase 84 U/L (45-117); Anion Gap 4 (5-15); BUN 15 mg/dL (7-18); BUN/Creat Ratio 22.1 RATIO (10-20); Calcium,Total 9.1 mg/dL (8.5-10.1); Chloride 102 mmol/L (98-107); Creatinine, Serum 0.68 mg/dL (0.70-1.30); EST Glomerular Filtration Rate 138 mL/min (>60); Est Glom Filt Rate - Afr Amer 167 mL/min (>60); Estimated Creatinine Clearance 204.27 ml/min; Globulin 4.5 g/dL (2.2-4.2); Glucose 243 mg/dL (74-106); Potassium 4.3 mmol/L (3.5-5.1); Protein, Total 8.2 g/dL (6.4-8.2); Sodium Level 138 mmol/L (136-145); Troponin-I HS < 3 pg/mL (3.0-78.0)
[2023-12-23 21:00] VITALS: BP 113/80; PULSE 71; RESP 12; O2SAT 100
[2023-12-23 22:37] VITALS: BP 126/76; PULSE 76; RESP 18; TEMP 36.9; O2SAT 94
== END 2023-12-23 22:38 | disposition home or self-care (01) ==
PROVIDERS: Emergency Provider Student in an Organized Health Care Education/Training Program; PCP Family Medicine; Visit Provider Student in an Organized Health Care Education/Training Program
DX: G40.909 Epilepsy, unspecified, not intractable, without status epilepticus (principal); E11.9 Type 2 diabetes mellitus without complications; M54.9 Dorsalgia, unspecified; G89.29 Other chronic pain; G47.30 Sleep apnea, unspecified; F41.9 Anxiety disorder, unspecified; R51.9 Headache, unspecified; G47.33 Obstructive sleep apnea (adult) (pediatric); K21.9 Gastro-esophageal reflux disease without esophagitis; I10 Essential (primary) hypertension; Z99.89 Dependence on other enabling machines and devices
CPT/HCPCS: 70450; 75809; 80053; 84484; 85025; 93005; 96360; 99284; A4216

== ENCOUNTER → 2024-01-13 | Outpatient (CLI) | payer MEDICARE, MEDICAID, SELFPAY | END | disposition home or self-care (01) | LOC: BFHLAB 14:22 → LABSPEC 14:23 | PROVIDERS: PCP Nurse Practitioner Family; Referring Provider Nurse Practitioner Family; Visit Provider Nurse Practitioner Family | DX: L02.91 Cutaneous abscess, unspecified (principal) | CPT/HCPCS: 87070; 87205 ==

== ENCOUNTER 2024-03-28 06:46 | Day surgery (SDC) | payer MEDICARE, MEDICAID, SELFPAY ==
[2024-03-28] VITALS (8 sets, daily range): BP systolic 127–156; BP diastolic 66–86; PULSE 87–92; RESP 16; TEMP 36.5–37.3; O2SAT 95–97; BMI 58.8
[2024-03-28] MEDS: MethylPREDNISolone Acetate 80 MG/ML Vial (07:08)
[2024-03-28] MEDS: Lactated Ringers 1,000 ML 15 ML IV (07:24)
--- NOTE | 2024-03-28 07:25 | RAD_ITS ---
PROCEDURE: Left hip injection. DATE OF EXAMINATION: March 28, 2024. INDICATION: Male, 38 years old. Left hip pain. FLUOROSCOPY TIME (if supplied): (12 seconds) minutes/seconds. 12.57 mGy. 3 images were submitted. RAD/Fluoro Guided Needle Placement IMPRESSION: Intraoperative imaging provided for left hip injection. Electronically Signed: Donaldo Roldan MD at 15:25 EDT ,
--- NOTE | 2024-03-28 07:39 | PCM.PRE.AN2 ---
ASA Classification* ASA Classification ASA Classification: 3 Assessment & Plan Anesthesia* Anesthesia Assessment Anesthesia Assessment: Discussed sedation and/or anesthesia options, risks, benefits, and alternatives with patient/parents/legal guardian/POA. Questions invited. The patient/parents/legal guardian/POA seems to understand and agrees to proceed with anesthesia plan. Reviewed the physical assessment, medical history, allergy history and patient home medications list prior to surgery/procedure/anesthetic and documented any changes. Performed airway and anesthesia risk assessments. Anesthesia Type Anesthesia Type: MAC (*see written pre anesthesia record for full assessment) Anesthesia Focused Assessment* Temperature: 99.1 F Pulse Rate: 88 Blood Pressure: 156/86 Respiratory Rate: 16 Pulse Ox: 95 Airway Assessment Mouth opens: >3 cm Mallampati Score: III Focused Labs Anesthesia Preop lab: CBC WBC 8.2 K/mm3 (4.4-11.0) 12/23/23 19:00 RBC 5.30 M/mm3 (4.6-6.2) 12/23/23 19:00 Hgb 15.1 g/dL (13.0-16.5) 12/23/23 19:00 Hct 46.0 % (40-54) 12/23/23 19:00 Plt Count 218 K/mm3 (150-450) 12/23/23 19:00 CHEMISTRY Potassium 4.3 mmol/L (3.5-5.1) 12/23/23 19:00 Sodium 138 mmol/L (136-145) 12/23/23 19:00 Magnesium 2.1 mg/dL (1.6-2.6) 10/28/20 05:30 Phosphorus 2.4 mg/dL (2.5-4.9) L 01/28/20 08:30 BUN 15 mg/dL (7-18) 12/23/23 19:00 Creatinine 0.68 mg/dL (0.70-1.30) L 12/23/23 19:00 Glucose 243 mg/dL (74-106) H 12/23/23 19:00 POC Glucose 279 mg/dL (70-110) H 10/28/20 12:07 TSH 3.80 uIU/mL (0.358-3.74) H 01/29/20 06:12 COAG PT 13.3 SECONDS (11.7-14.9) 02/14/22 13:37 Pre-Assessment Diagnosis/Proposed Procedure Planned Operative Procedure(s): LEFT HIP INTRA ARTICULAR STEROID INJECTION UNDER FLUOROSCOPY Anesthesia History 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 When Was Last Pacemaker Check QUESTION #4 FULL TEXT: You/Your Family Experience fever (hyperthermia) with Anesthesia Last Oral Intake Last Oral intake: Last Oral Intake NPO since 06:20 03/28/24 07:11 Meds taken in AM with sips of Yes 03/28/24 07:11 water? 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 Female No 03/17/24 08:06 HX of Motion Sickness Yes 03/17/24 08:06 HX of N/V After Surgery No 03/17/24 08:06 Non-Smoker Yes 03/17/24 08:06 Duration of Surgery greater No 03/17/24 08:06 than 60 minutes Number of Risk Factors 2 03/17/24 08:06 PONV Score Moderate Risk 03/17/24 08:06 Height & Weight Height & Weight: Anesthesia: Height & Weight Height 5 ft 4 in 03/28/24 07:11 Weight: 155.4 kg 03/28/24 07:11 Body Mass Index (BMI) 58.8 03/28/24 07:11 Respiratory Assessment Respiratory Assessment - construction teacher: Respiratory Tract Infection Hx - construction teacher Hx Respiratory Tract Infection No 03/17/24 08:06 STOP Sleep Apnea STOP Sleep Apnea - construction teacher: STOP Sleep Apnea - construction teacher Hx Hypertension Yes: CONTROLLED WITH MEDS 03/17/24 08:06 Hx Sleep Apnea Yes 03/17/24 08:06 CPAP No 03/17/24 08:06 BIPAP Yes 03/17/24 08:06 Do you snore loudly (louder than talking or can be heard Do you often feel tired/ fatigued/ sleepy during daytime? Has anyone observed you stop breathing during sleep? STOP Results Positive 03/17/24 08:06 QUESTION #5 FULL TEXT : Do you snore loudly (louder than talking or can be heard through closed doors)? 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 Specify any problems Hx of Preganancy in last 3 N/A 03/17/24 08:06 Months Nurse Filling Out Transfusion [id number] 03/17/24 08:06 & Questions: Date: 03/17/24 03/17/24 08:06 Time: 08:13 03/17/24 08:06 Patient unable to answer at this time (ie. confused, unrespo /Reproduction History /Reproductive History - construction teacher: /Reproductive Hx- construction teacher Hx Now Gestational Age (in weeks): EDC: Hx Hx Para Hx Section SAB Active Medications Active Medications: Current Medications Generic Name Dose Route Start Last Admin Trade Name Freq PRN Reason Stop Dose Admin Lactated Ringer's 1,000 mls @ 15 mls/hr 03/28/24 07:00 03/28/24 07:24 IV 15 mls/hr .Q48H ZAIN Administration Lactated Ringer's 1,000 mls @ 15 mls/hr 03/28/24 07:15 IV .Q48H ZAIN PFSH Medical History Anxiety Chronic cough Diabetes Non-smoker History of echocardiogram History of stress test 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 Seizure disorder Depression Hypertension History of bronchitis History of pneumonia GERD (gastroesophageal reflux disease) Chest pain Vertigo Super obesity Bronchial asthma Gout Type II diabetes mellitus History of cerebral palsy Obstructive sleep apnea Benign hypertension Home Medications ?Medication ?Instructions ?Recorded ?Last Taken ?Type allopurinol 300 mg tablet 300 mg PO DAILY gout 06/09/15 04/13/20 08:00 History nebivolol 10 mg tablet 10 mg PO DAILY heart 06/09/15 03/28/24 06:20 History baclofen 20 mg tablet 20 mg PO Q12H muscle spasms 06/25/18 04/13/20 16:00 History pantoprazole 40 mg tablet,delayed 40 mg PO DAILY gi 06/25/18 04/13/20 08:00 History release levetiracetam 500 mg tablet 500 mg PO BID seizures 01/28/20 04/13/20 16:00 History multivitamin with minerals 1 tab PO DAILY vitamin 01/28/20 04/13/20 08:00 History acetaminophen 325 mg tablet 650 mg (2 x 325 mg) PO Q6H PRN PRN 04/14/20 Unknown Rx Pain Score 1-10/Temp > 100.7 F fluoxetine 10 mg capsule 20 mg PO DAILY depression 08/15/20 Unknown History furosemide 20 mg tablet 40 mg PO BID diuretic 10/13/21 Unknown History colchicine 0.6 mg tablet 0.6 mg PO PRN gout 12/02/21 Unknown History albuterol sulfate 2.5 mg/3 mL 2.5 mg (3 mL) inhalation Q4H PRN 01/05/23 Unknown Rx (0.083 %) solution for nebulization shortness of breath or wheezing #180 mL albuterol sulfate 90 mcg/actuation 2 inh inhalation Q4H PRN PRN Sob 01/05/23 Unknown Rx aerosol inhaler &/Or Wheezing #8.5 grams budesonide-formoterol HFA 160 2 puff inhalation BID #10.2 grams 01/05/23 Unknown Rx mcg-4.5 mcg/actuation aerosol inhaler (Symbicort) montelukast 10 mg tablet 10 mg PO DAILY allergies #90 tabs 01/05/23 Unknown Rx spacer #1 ea 01/05/23 Unknown Rx potassium citrate 10 mEq (1,080 10 meq PO DAILY 07/23/23 Unknown History mg) tablet,extended release fluticasone propionate 50 2 spray intranasal DAILY allergies 11/23/23 Unknown Rx mcg/actuation nasal #16 grams spray,suspension ipratropium bromide 21 mcg (0.03 2 spray intranasal BID #30 mL 11/23/23 Unknown Rx %) nasal spray naproxen 500 mg tablet (Naprosyn) 500 mg PO BID PRN pain #20 tabs 12/19/23 Unknown Rx semaglutide 0.25 mg or 0.5 mg (2 0.5 mg subcut QWEEK 12/23/23 03/21/24 History mg/3 mL) subcutaneous pen injector (Ozempic) Allergy/AdvReac Type Severity Reaction Status Date / Time animal dander Allergy Chest Verified 03/28/24 07:05 tightness grass pollen Allergy Other Verified 03/28/24 07:05 house dust Allergy Other Verified 03/28/24 07:05 pollen extracts Allergy Other Verified 03/28/24 07:05 Family History Father Chronic a-fib CVA (cerebral vascular accident) Mother ROBERT (obstructive sleep apnea) Breast cancer Grandfather Cancer bladder Other Diabetes Surgical History H/O hernia repair H/O eye surgery S/P APPRAISER LAND shunt Social History Smoking Status: Never smoker Review of Systems (Anesthesia) ROS Narrative System reviewed and no additional complaints, except as documented.
[2024-03-28 07:44] LABS: Bedside Glucose 275 mg/dL (74-106)
[2024-03-28] MEDS: Lidocaine 1% (5 ml sdv) 5 ML Vial (08:27)
--- NOTE | 2024-03-28 08:36 | PCM.POST.ANE ---
Anesthesia: Postop Eval I Current Vital Signs Temperature: 98.8 F Pulse Rate: 90 Blood Pressure: 128/71 Respiratory Rate: 16 Pulse Ox: 96 Oxygen Delivery Method: Room Air Assessment Airway patent: Yes Spontaneous unlabored respirations: Yes Mental status: Awake and Calm nausea: No Vomiting: No Anesthesia Complication: No Fluid Hydration Crystalloid volume administer (ml): 300 Total IV fluid infused: 300 Progress Note Anesthesia document: Postop Eval 1 completed: Yes
--- NOTE | 2024-03-28 08:36 | PCM.OPRPT ---
Report of Operation Date of Procedure: 03/28/24 Description of Surgical Findings:: PREOPERATIVE DIAGNOSIS: Osteoarthritis of the left hip POSTOPERATIVE DIAGNOSIS: Osteoarthritis of the left hip PROCEDURE PERFORMED: Left hip intraarticular steroid injection under fluoroscopy guidance. ANESTHESIA: MAC. BLOOD LOSS: Minimal. COMPLICATIONS: None. DESCRIPTION OF PROCEDURE: History and physical of today was reviewed. Risks and benefits of the procedure were explained. The patient understood and agreed to proceed. Informed consent was obtained. IV inserted per routine protocol. The patient was taken to the operating room and placed in the supine position. The left hip area was prepped and draped in a sterile fashion using iodine x3. Under fluoroscopy guidance on AP view, the left hip joint was visualized. The skin and subcutaneous tissue was anesthetized with approximately 3 mL of 1% lidocaine using a 25-gauge regular needle approximately 3 cm cephalad to the left greater trochanter. Under direct visualization with fluoroscopy on an AP view, using a 22-gauge 5-inch spinal needle, the needle was advanced via the skin using the lateral approach. The tip of the needle was maneuvered and directed towards the superiormost aspect of the hip joint. Once the tip of the needle was at the vicinity of the joint, after negative aspiration for blood and positive aspiration of synovial fluid, a total of 1 mL of contrast was injected to confirm correct placement of the needle as well as halo spread around the hip joint. After repeated negative aspiration for blood and confirmation on AP as well as oblique view, a total of 10 mL of preservative-free 0.25% Marcaine with 80 mg of Depo-Medrol was injected easily. The needle was then removed intact. The patient experienced no sign or symptoms of intrathecal or intravascular injection. The patient experienced no paresthesia. The procedure was completed without any apparent difficulty or any complications. The patient appeared to tolerate it well. ASSESSMENT AND PLAN: This is a 38-year-old male with osteoarthritis of the left hip status post left hip intra-articular steroid injection under fluoroscopic guidance, patient will continue his current medications, patient will follow up in approximately 2 weeks for reevaluation.
--- NOTE | 2024-03-28 09:10 | POSTOPAN2_ITS ---
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.[email or web address] Spontaneous unlabored Yes 03/28/24 08:36 ENGINEERING MODEL MAKER.JOSE respirations Mental status Awake,Calm 03/28/24 08:36 ENGINEERING MODEL MAKER.JOSE nausea No 03/28/24 08:36 ENGINEERING MODEL MAKER.JOSE Vomiting No 03/28/24 08:36 ENGINEERING MODEL MAKERELIAZAR Anesthesia Postop Eval I: Fluid Summary Crystalloid volume administer 300 03/28/24 08:36 ENGINEERING MODEL MAKER.JOSE (ml) Colloids volume administered ( ml) Blood Product volume administered (ml) Total IV fluid infused 300 03/28/24 08:36 ENGINEERING MODEL MAKERELIAZAR Anesthesia Postop Eval I: Summary Notes Anesthesia Complication No 03/28/24 08:36 ZEFERINO Anesthesia Complication Comment: Post-operative progress note Anesthesia: Postop Eval II Evaluation Mental status: Awake Pain Level: 0 nausea: No Vomiting: No
--- NOTE | 2024-03-28 09:10 | PCM.POSTANE2 ---
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[email or web address] Spontaneous unlabored Yes 03/28/24 08:36 LABOR CONTRACTOR.JOSE respirations Mental status Awake,Calm 03/28/24 08:36 LABOR CONTRACTOR.JOSE nausea No 03/28/24 08:36 LABOR CONTRACTOR.JOSE Vomiting No 03/28/24 08:36 LABOR CONTRACTORELIAZAR Anesthesia Postop Eval I: Fluid Summary Crystalloid volume administer 300 03/28/24 08:36 LABOR CONTRACTOR.JOSE (ml) Colloids volume administered ( ml) Blood Product volume administered (ml) Total IV fluid infused 300 03/28/24 08:36 LABOR CONTRACTORELIAZAR Anesthesia Postop Eval I: Summary Notes Anesthesia Complication No 03/28/24 08:36 ZEFERINO Anesthesia Complication Comment: Post-operative progress note Anesthesia: Postop Eval II Evaluation Mental status: Awake Pain Level: 0 nausea: No Vomiting: No
== END 2024-03-28 09:04 | disposition home or self-care (01) ==
LOC: SDC 06:46 → AC 06:48
PROVIDERS: PCP Family Medicine; Referring Provider Anesthesiology Pain Medicine; Visit Provider Anesthesiology Pain Medicine
PROC: 3E0U3GC Introduction of Other Therapeutic Substance into Joints, Percutaneous Approach (ICD-10-PCS; CPT 20610; principal; 2024-03-28 08:20)
DX: M16.12 Unilateral primary osteoarthritis, left hip (principal); E11.9 Type 2 diabetes mellitus without complications; I10 Essential (primary) hypertension; J45.909 Unspecified asthma, uncomplicated; K21.9 Gastro-esophageal reflux disease without esophagitis; G47.33 Obstructive sleep apnea (adult) (pediatric); F41.9 Anxiety disorder, unspecified; Z79.51 Long term (current) use of inhaled steroids; Z79.899 Other long term (current) drug therapy
CPT/HCPCS: 20610; 01992; 76000; 77002; 82962; J7120

== ENCOUNTER 2024-08-29 09:31 | Day surgery (SDC) | payer MEDICARE, MEDICAID, SELFPAY ==
[2024-08-29 10:14] VITALS: BP 159/97; PULSE 96; RESP 16; TEMP 36.6; O2SAT 95; BMI 57.6
[2024-08-29] MEDS: MethylPREDNISolone Acetate 80 MG/ML Vial (10:53)
--- NOTE | 2024-08-29 11:03 | RAD_ITS ---
STUDY: HIP INJECTION. LEFT REASON FOR EXAM: Male, 39 years old. LT HIP INJECTION FLUOROSCOPY TIME (if supplied): ( 4 seconds ) minutes/seconds. 1.94 mGy. One image was submitted. FINDINGS: Intraoperative imaging provided for left hip injection. RAD/Fluoro Guided Needle Placement IMPRESSION: Intraoperative imaging provided for left hip injection. Electronically Signed: Donaldo Roldan MD at 12:02 EST ,
[2024-08-29] MEDS: Lidocaine 1% (5 ml sdv) 5 ML Vial (11:10)
[2024-08-29] MEDS: Bupivacaine 0.25% 30 ML Vial (11:10)
--- NOTE | 2024-08-29 11:14 | PCM.OPRPT ---
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: No Type of Anesthesia: Local RN Documented Start/Stop Times: Operation Date: 08/29/24 11:00 Case Time Into Pre-Op 08/29/24 09:51 Out of Pre-Op 08/29/24 10:58 Into Room 08/29/24 11:02 Procedure Start 08/29/24 11:09 Procedure End 08/29/24 11:12 Anesthesia End 08/29/24 11:13 Out of Room 08/29/24 11:13 Procedure Start Time: 11:14 Procedure Stop Time: 11:14 Select all DRAINS/GRAFTS/IMPLANTS that apply: None Estimated Blood Loss: 1 Specimen collected: No Description of surgery: PREOPERATIVE DIAGNOSIS: Osteoarthritis of the left hip POSTOPERATIVE DIAGNOSIS: Osteoarthritis of the left hip PROCEDURE PERFORMED: Left hip intraarticular steroid injection under fluoroscopy guidance. ANESTHESIA: Local BLOOD LOSS: Minimal. COMPLICATIONS: None. DESCRIPTION OF PROCEDURE: History and physical of today was reviewed. Risks and benefits of the procedure were explained. The patient understood and agreed to proceed. Informed consent was obtained. IV inserted per routine protocol. The patient was taken to the operating room and placed in the supine position. The left hip area was prepped and draped in a sterile fashion using iodine x3. Under fluoroscopy guidance on AP view, the left hip joint was visualized. The skin and subcutaneous tissue was anesthetized with approximately 3 mL of 1% lidocaine using a 25-gauge regular needle approximately 3 cm cephalad to the left greater trochanter. Under direct visualization with fluoroscopy on an AP view, using a 22-gauge 5-inch spinal needle, the needle was advanced via the skin using the lateral approach. The tip of the needle was maneuvered and directed towards the superiormost aspect of the hip joint. Once the tip of the needle was at the vicinity of the joint, after negative aspiration for blood and positive aspiration of synovial fluid, a total of 1 mL of contrast was injected to confirm correct placement of the needle as well as halo spread around the hip joint. After repeated negative aspiration for blood and confirmation on AP as well as oblique view, a total of 10 mL of preservative-free 0.25% Marcaine with 80 mg of Depo-Medrol was injected easily. The needle was then removed intact. The patient experienced no sign or symptoms of intrathecal or intravascular injection. The patient experienced no paresthesia. The procedure was completed without any apparent difficulty or any complications. The patient appeared to tolerate it well. ASSESSMENT AND PLAN: This is a 39-year-old male with osteoarthritis of the left hip status post left hip intra-articular steroid injection under fluoroscopic guidance, patient will continue his current medications, patient will follow up in approximately 2 weeks for reevaluation. Surgical Findings: 0 Complications Complications: No Admit VTE Documentation VTE Present on Admission: No VTE Mechan Device Prophylaxis: None VTE Pharm Prophylaxis ordered?: No
[2024-08-29 11:34] VITALS: BP 159/106; PULSE 96; RESP 16; TEMP 36.7; O2SAT 96
[2024-08-29 13:50] VITALS: BP 167/105; O2SAT 98
[2024-08-29 17:14] LABS: Bedside Glucose 287 mg/dL (74-106)
== END 2024-08-29 11:47 | disposition home or self-care (01) ==
LOC: SDC 09:32 → AC 09:36
PROVIDERS: PCP Family Medicine; Referring Provider Anesthesiology Pain Medicine; Visit Provider Anesthesiology Pain Medicine
PROC: 3E0U3GC Introduction of Other Therapeutic Substance into Joints, Percutaneous Approach (ICD-10-PCS; CPT 20610; principal; 2024-08-29 10:55)
DX: M16.12 Unilateral primary osteoarthritis, left hip (principal); M54.50 Low back pain, unspecified; Z79.899 Other long term (current) drug therapy
CPT/HCPCS: 20610; 76000; 77002; 82962; A4216

== ENCOUNTER → 2024-09-21 | Outpatient (CLI) | payer MEDICARE, MEDICAID, SELFPAY ==
[2024-09-21 10:34] LABS: ALB/GLOB Ratio 0.7 RATIO (0.9-2.4); AST(SGOT) 54 U/L (15-37); Alanine Aminotransfer ALT/SGPT 84 U/L (16-61); Albumin, Serum 3.4 g/dL (3.2-5.0); Alkaline Phosphatase 126 U/L (45-117); Anion Gap 8 (5-15); BUN 16 mg/dL (7-18); BUN/Creat Ratio 22.3 RATIO (10-20); Calcium,Total 9.4 mg/dL (8.5-10.1); Chloride 101 mmol/L (98-107); Cholesterol 233 mg/dL (200); Creatinine, Serum 0.72 mg/dL (0.70-1.30); EST Glomerular Filtration Rate 129 mL/min (>60); Est Glom Filt Rate - Afr Amer 156 mL/min (>60); Globulin 4.7 g/dL (2.2-4.2); Glucose 319 mg/dL (74-106); High Density Lipoprotein 37 mg/dL; Potassium 4.3 mmol/L (3.5-5.1); Protein, Total 8.1 g/dL (6.4-8.2); Sodium Level 136 mmol/L (136-145); Triglycerides 311 mg/dL; Very Low Density Lipoprotein 62 mg/dL (5-40)
[2024-09-21 13:41] LABS: Microalbumin,Random Urine 8.8 mg/L (NO RANGE EST.); Microalbumin:Creatinine Ratio 16.1 mg/g CRE (<30 mg/g CRE)
== END | disposition home or self-care (01) ==
LOC: MTLAB 08:23
PROVIDERS: PCP Family Medicine; Referring Provider Family Medicine; Visit Provider Family Medicine
DX: I10 Essential (primary) hypertension (principal); E11.9 Type 2 diabetes mellitus without complications
CPT/HCPCS: 36415; 80053; 80061; 82043; 82570

== ENCOUNTER 2024-10-28 12:48 | Emergency (ER) | payer MEDICARE, MEDICAID, SELFPAY ==
[2024-10-28 12:49] VITALS: BP 153/102; PULSE 105; RESP 16; TEMP 36.7; O2SAT 94
--- NOTE | 2024-10-28 12:56 | VDLE_ITS ---
Reason For Study Reason For Study: Pain RLE RIGHT LEFT GSV is normal. CFV is compressible, spontaneous, phasic, competent, CFV is compressible, spontaneous, phasic, competent and demonstrates normal augmentation. and demonstrates normal augmentation. FV is compressible, spontaneous, phasic, competent and demonstrates normal augmentation. POP V is compressible, spontaneous, phasic, competent and demonstrates normal augmentation. T/P Trunk is compressible. PTV is compressible. RT PerV is compressible. Procedure This is a venous duplex using B-mode, color flow and spectral Doppler. Exam performed in department. A preliminary report was called and/or faxed to ED, Jil GODFREY. VL/Venous Duplex US, Unilateral Interpretation Summary Deep veins of the right lower extremity are patent and compressible segmentally . There is no evidence of right lower extremity deep vein thrombosis. Valvular competence appears intact within the p roximal deep venous system on the right . The right great saphenous vein appears patent and compressible segmentally. The left common femoral vein is patent and compressible . Ordering Physician: Hafsa Salcedo Referring Physician: Aliza Roman Performed By: Maday Boo, ROBERT, RVT
--- NOTE | 2024-10-28 15:17 | ED.VIS.LOWEX ---
HPI History of Present Illness Chief Complaint: Lower Extremity Injury Informant: patient and spouse/S.O. Narrative Narrative: 39-year-old male presenting to the emergency department chief complaint of right calf pain. Patient states that he has a history of lymphedema and noticed that his leg was more swollen last night he had pain in the right calf. He denies a history of DVT PE. He states that he is concerned for DVT. He denies any injuries to the leg. He takes 40 mg of furosemide twice a day PFSH [facility] Medical History ROBERT treated with BiPAP Cerebral palsy Anxiety Chronic cough Diabetes Non-smoker History of echocardiogram History of stress test 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 Seizure disorder Depression Hypertension History of bronchitis History of pneumonia GERD (gastroesophageal reflux disease) Chest pain Vertigo Super obesity Bronchial asthma Gout Type II diabetes mellitus History of cerebral palsy Obstructive sleep apnea Benign hypertension Home Medications ?Medication ?Instructions ?Recorded ?Last Taken ?Type allopurinol 300 mg tablet 300 mg PO DAILY gout 06/09/15 08/28/24 History nebivolol 10 mg tablet 10 mg PO DAILY heart 06/09/15 08/28/24 History baclofen 20 mg tablet 20 mg PO Q12H muscle spasms 06/25/18 08/28/24 History pantoprazole 40 mg tablet,delayed 40 mg PO DAILY gi 06/25/18 08/28/24 History release levetiracetam 500 mg tablet 500 mg PO BID seizures 01/28/20 08/28/24 History multivitamin with minerals 1 tab PO DAILY vitamin 01/28/20 08/28/24 History acetaminophen 325 mg tablet 650 mg (2 x 325 mg) PO Q6H PRN PRN 04/14/20 08/22/24 Rx Pain Score 1-10/Temp > 100.7 F fluoxetine 10 mg capsule 20 mg PO DAILY depression 08/15/20 08/28/24 History furosemide 20 mg tablet 40 mg PO BID diuretic 10/13/21 08/28/24 History colchicine 0.6 mg tablet 0.6 mg PO PRN gout 12/02/21 08/22/24 History albuterol sulfate 2.5 mg/3 mL 2.5 mg (3 mL) inhalation Q4H PRN 01/05/23 Unknown Rx (0.083 %) solution for nebulization shortness of breath or wheezing #180 mL albuterol sulfate 90 mcg/actuation 2 inh inhalation Q4H PRN PRN Sob 01/05/23 Unknown Rx aerosol inhaler &/Or Wheezing #8.5 grams budesonide-formoterol HFA 160 2 puff inhalation BID #10.2 grams 01/05/23 08/28/24 Rx mcg-4.5 mcg/actuation aerosol inhaler (Symbicort) montelukast 10 mg tablet 10 mg PO DAILY allergies #90 tabs 01/05/23 08/28/24 Rx spacer #1 ea 01/05/23 Unknown Rx potassium citrate 10 mEq (1,080 10 meq PO DAILY 07/23/23 08/28/24 History mg) tablet,extended release fluticasone propionate 50 2 spray intranasal DAILY allergies 11/23/23 08/28/24 Rx mcg/actuation nasal #16 grams spray,suspension ipratropium bromide 21 mcg (0.03 2 spray intranasal BID #30 mL 11/23/23 08/28/24 Rx %) nasal spray naproxen 500 mg tablet (Naprosyn) 500 mg PO BID PRN pain #20 tabs 12/19/23 Unknown Rx Held on 08/29/24. Instructions: Conflicting Appointment semaglutide 1 mg/dose (4 mg/3 mL) mg subcut 05/31/24 08/19/24 History subcutaneous pen injector (Ozempic) Allergy/AdvReac Type Severity Reaction Status Date / Time animal dander Allergy Chest Verified 10/28/24 12:52 tightness grass pollen Allergy Other Verified 10/28/24 12:52 house dust Allergy Other Verified 10/28/24 12:52 pollen extracts Allergy Other Verified 10/28/24 12:52 Family History Father Chronic a-fib CVA (cerebral vascular accident) Mother ROBERT (obstructive sleep apnea) Breast cancer Grandfather Cancer bladder Other Diabetes Surgical History H/O hernia repair H/O eye surgery S/P SENIOR BUYER shunt Social History Smoking Status: Never smoker ROS ROS ED Constitutional Constitutional ED: Denies chills or weight loss Eyes Eyes: Denies change in vision or diplopia ENT ENT ED: Denies ear pain, rhinorrhea or sore throat Cardiovascular Cardiovascular: Denies chest pain, orthopnea, palpitations or racing heartbeat Respiratory/Chest Respiratory/Chest: Denies cough, dyspnea or orthopnea Gastrointestinal Gastrointestinal: Denies abdominal pain, diarrhea, nausea or vomiting Genitourinary Genitourinary ED: Denies dysuria, hematuria or urinary frequency Musculoskeletal Musculoskeletal: Reports other Details: Right leg swelling and pain ; Denies arthralgias or myalgias Integumentary Denies abscess or rash Neurologic Neurologic: Denies headache(s) or weakness Psychiatric Psychiatric: Denies anxiety, depression, suicidal ideation or suicidal thoughts Endocrine Endocrinology: Denies polydipsia, polyphagia or polyuria Allergic/Immunologic Allergic/Immunologic ED: Denies mouth swelling, tongue swelling or urticaria EXAM Physical Exam Const Vital Signs: 10/28/24 12:49 Temperature 98.1 F Temperature Source Temporal Pulse Rate 105 H Respiratory Rate 16 Blood Pressure 153/102 H Blood Pressure Mean 119 Pulse Ox 94 Oxygen Delivery Method Room Air Positive well nourished and well developed General Appearance ED: well developed HEENT Reports normocephalic, head/scalp atraumatic and moist mucous membranes Eyes PERRL Eyes Narrative: Chronic strabismus Neck no lymphadenopathy, supple and no JVD Resp normal respiratory effort and clear to auscultation bilaterally Cardio regular rate, regular rhythm and no murmurs GI normal to inspection, nondistended, normoactive bowel sounds and non-tender Palpation: soft Back/Spine no CVA tenderness and normal ROM Extremity Extremity Narrative: Right greater than left distal leg swelling. Calf is mildly tender. I do not palpate any cords. Distal leg and foot is warm. Achilles palpates intact and functionally is intact. No rashes. There are multiple abrasions due to dog scratches but no erythema. General Extremety ED: Negative for edema General Extremity: Negative for edema Neuro oriented x3 and CN's II-XII intact bilaterally Sensorium / Orientation: alert Motor Exam: strength 5/5 throughout Psych mental status grossly normal Mood & Affect: Negative for depressed or tearful Skin no rashes or lesions noted and no wounds MDM MDM MDM Narrative Medical decision making narrative: Differential diagnosis includes lymphedema congestive heart DVT superficial venous thrombosis cellulitis muscle injury bony injury Duplex ultrasound was obtained and is negative for DVT. Patient was advised to monitor salt intake and increase his Lasix to 3 times a day over the next couple days. Elevate the leg with compression stockings monitor for changes in the skin such as erythema or increased warmth. Return if worsening or concerns. Follow-up primary care if not improving History & Record Review Discussion w/independent historian: Patient and Significant other Discharge Plan Triage Chief Complaint: Lower Extremity Injury ED Provider: Madhu Page Dx/Rx/DC Orders Clinical Impression: Pain of right calf, Right leg swelling Instructions: ED Lymphedema Prescriptions: No Action colchicine 0.6 mg tablet 0.6 mg PO PRN Patient Comments: take 1 tablet by mouth every 6 hours if needed for GOUT FLARE albuterol sulfate 2.5 mg /3 mL (0.083 %) solution for nebulization 2.5 mg inhalation Q4H PRN (Reason: shortness of breath or wheezing) Qty: 180 11RF Patient Comments: has not taken to date, on standby albuterol sulfate 90 mcg/actuation HFA aerosol inhaler 2 inh inhalation Q4H PRN PRN (Reason: Sob &/Or Wheezing) Qty: 8.5 11RF Patient Comments: has not taken, on standby budesonide-formoterol [Symbicort] 160-4.5 mcg/actuation HFA aerosol inhaler 2 puff inhalation BID Qty: 10.2 11RF montelukast 10 mg tablet 10 mg PO DAILY Qty: 90 3RF (DME) spacer See Rx Instructions .ROUTE .MEDSUPPLY Qty: 1 0RF Rx Instructions: As directed potassium citrate 10 mEq (1,080 mg) tablet extended release 10 meq PO DAILY Patient Comments: TAKE 1 TABLET BY MOUTH EVERY DAY ipratropium bromide 21 mcg (0.03 %) spray,non-aerosol 2 spray intranasal BID Qty: 30 6RF fluticasone propionate 50 mcg/actuation spray,suspension 2 spray INTRANASAL DAILY Qty: 16 11RF Ozempic 1 mg/dose (4 mg/3 mL) pen injector subcut allopurinol 300 MG tablet 300 mg PO DAILY Patient Comments: gout nebivolol 10 MG tablet 10 mg PO DAILY Patient Comments: blood pressure baclofen 20 MG tablet 20 mg PO Q12H pantoprazole 40 MG tablet 40 mg PO DAILY multivitamin with minerals 1 EACH tablet 1 tab PO DAILY levetiracetam 500 MG tablet 500 mg PO BID Patient Comments: seizure fluoxetine 10 mg capsule 20 mg PO DAILY Patient Comments: TAKE 1 CAPSULE BY MOUTH EVERY DAY acetaminophen 325 MG tablet 650 mg PO Q6H PRN PRN (Reason: Pain Score 1-10/Temp > 100.7 F) 0RF furosemide 20 MG tablet 40 mg PO BID Patient Comments: Diuretic (water pill) naproxen [Naprosyn] 500 mg tablet 500 mg PO BID PRN (Reason: pain) Qty: 20 0RF Primary Care Provider: Aliza Roman Referrals: Aliza Roman MD [Primary Care Provider] - 3-5 Days if not improving Print Language: German Disposition Disposition: Home, Self Care Discharge Date/Time: 10/28/24 14:19
== END 2024-10-28 14:19 | disposition home or self-care (01) ==
LOC: ED 14:12
PROVIDERS: Emergency Provider Emergency Medicine; PCP Family Medicine; Referring Provider Emergency Medicine; Visit Provider Emergency Medicine
DX: M79.661 Pain in right lower leg (principal); E11.9 Type 2 diabetes mellitus without complications; I10 Essential (primary) hypertension; M79.89 Other specified soft tissue disorders; Z79.899 Other long term (current) drug therapy; K21.9 Gastro-esophageal reflux disease without esophagitis; F32.A Depression, unspecified
CPT/HCPCS: 93971; 99284

== ENCOUNTER 2024-11-27 11:00 | Emergency (ER) | payer MEDICARE, MEDICAID, SELFPAY ==
[2024-11-27 11:01] VITALS: BP 152/73; PULSE 87; RESP 25; TEMP 36.9; O2SAT 96; BMI 60.9
--- NOTE | 2024-11-27 11:36 | EKG12_ITS ---
Test Reason : FALL Blood Pressure : */* mmHG Vent. Rate : 77 BPM Atrial Rate : 77 BPM P-R Int : 158 ms QRS Dur : 150 ms QT Int : 424 ms P-R-T Axes : 53 91 -11 degrees QTcB Int : 479 ms Normal sinus rhythm Right bundle branch block T wave abnormality, consider inferior ischemia Abnormal ECG Confirmed by MARCY GONZALEZ, FAN ([id number]), legal editor CATHERINE PATTERSON ([id number]) on 11/28/2024 9:15:43 AM Referred By: Confirmed By: FAN VIDAL MD
--- NOTE | 2024-11-27 11:36 | CT_ITS ---
PROCEDURE: BRAIN/HEAD WITHOUT CONTRAST 11/27/2024 REASON FOR EXAM: HEAD INJURY, POSSIBLE SEIZURE SPREADING MACHINE OPERATOR shunt surgery. History of seizures TECHNIQUE: Head CT without intravenous contrast. Coronal and Sagittal reconstruction series were provided. One or more dose reduction techniques were used (e.g., Automated exposure control, adjustment of the mA and/or kV according to patient size, use of iterative reconstruction technique. RADIATION DOSE SUMMARY: CTDlvol: 44.99 mGy DLP: 796.11 mGycm COMPARISON: None. FINDINGS: Brain: Right parietal SPREADING MACHINE OPERATOR shunt tube appears satisfactorily positioned. No ventriculomegaly. No mass, mass effect or midline shift. No intra-axial or extra-axial hemorrhage. CSF Spaces: Again SPREADING MACHINE OPERATOR shunt tube in place. Ventricles and sulci are normal in size. Sinuses/Mastoids: Mucous retention cyst in the base of the left maxillary sinus. Mastoid air cells and remaining sinuses are clear. Bones: Unremarkable. CT/Brain/Head without Contrast IMPRESSION: No acute process detected. Reading Location: [facility]
--- NOTE | 2024-11-27 11:36 | RAD_ITS ---
PROCEDURE: HIP, UNI W/ PELVIS 2-3 VIEWS 11/27/2024 REASON FOR EXAM: HIP PAIN, FALL TECHNIQUE: AP pelvis and 2 radiographic views of the left hip. FINDINGS: Bones: No fracture Joints: No dislocation. Marked cartilage loss and deformity of bone ends of advanced osteoarthritis Soft tissues: Unremarkable Other: RAD/HIP, UNI W/ Pelvis 2-3 Views IMPRESSION: Advanced osteoarthritis of left hip. Reading [facility]
--- NOTE | 2024-11-27 11:46 | EX.ED.DYSGE1 ---
HPI <GUICHO Jarrell - Last Filed: 11/27/24 14:41> History of Present Illness Chief Complaint: Edema Narrative Narrative: Patient presenting today due to concerns for a possible seizure that occurred this morning. He got up from his chair but did not use his cane that he normally uses to ambulate, he then fell to the ground onto his right side. He then rolled onto his back and his noticed that his head bobbed back and forth about 3 times against the ground. She was trying to talk to him but he was not responding, the episode lasted a few minutes. He reports that he could hear her talking to him but he thinks he was in shock from the fall and could not respond. He is not currently postictal. He does have a history of a seizure disorder and is compliant with his Keppra. No incontinence occurred. He does report mild left hip pain from the fall. Additionally, he reports history of lower extremity edema, he thinks he has a history of CHF but is not sure. He takes Lasix, his swelling has been worse since Thursday, his PCP told him to double his dose and he took 80 mg yesterday and today, he does report some improvement of his edema since then. He denies fevers, chills, chest pain, abdominal pain, and shortness of breath. He has a PMH of T2DM, cerebral palsy, ALLERGY AND IMMUNOLOGY CHIEF shunt, obesity, HTN, and ROBERT. PFSH <GUICHO Jarrell - Last Filed: 11/27/24 14:41> [facility] Medical History ROBERT treated with BiPAP Cerebral palsy Anxiety Chronic cough Diabetes Non-smoker History of echocardiogram History of stress test 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 Seizure disorder Depression Hypertension History of bronchitis History of pneumonia GERD (gastroesophageal reflux disease) Chest pain Vertigo Super obesity Bronchial asthma Gout Type II diabetes mellitus History of cerebral palsy Obstructive sleep apnea Benign hypertension Home Medications ?Medication ?Instructions ?Recorded ?Last Taken ?Type allopurinol 300 mg tablet 300 mg PO DAILY gout 06/09/15 08/28/24 History nebivolol 10 mg tablet 10 mg PO DAILY heart 06/09/15 08/28/24 History baclofen 20 mg tablet 20 mg PO Q12H muscle spasms 06/25/18 08/28/24 History pantoprazole 40 mg tablet,delayed 40 mg PO DAILY gi 06/25/18 08/28/24 History release levetiracetam 500 mg tablet 500 mg PO BID seizures 01/28/20 08/28/24 History multivitamin with minerals 1 tab PO DAILY vitamin 01/28/20 08/28/24 History acetaminophen 325 mg tablet 650 mg (2 x 325 mg) PO Q6H PRN PRN 04/14/20 08/22/24 Rx Pain Score 1-10/Temp > 100.7 F fluoxetine 10 mg capsule 20 mg PO DAILY depression 08/15/20 08/28/24 History furosemide 20 mg tablet 40 mg PO BID diuretic 10/13/21 08/28/24 History colchicine 0.6 mg tablet 0.6 mg PO PRN gout 12/02/21 08/22/24 History albuterol sulfate 2.5 mg/3 mL 2.5 mg (3 mL) inhalation Q4H PRN 01/05/23 Unknown Rx (0.083 %) solution for nebulization shortness of breath or wheezing #180 mL albuterol sulfate 90 mcg/actuation 2 inh inhalation Q4H PRN PRN Sob 01/05/23 Unknown Rx aerosol inhaler &/Or Wheezing #8.5 grams budesonide-formoterol HFA 160 2 puff inhalation BID #10.2 grams 01/05/23 08/28/24 Rx mcg-4.5 mcg/actuation aerosol inhaler (Symbicort) montelukast 10 mg tablet 10 mg PO DAILY allergies #90 tabs 01/05/23 08/28/24 Rx spacer #1 ea 01/05/23 Unknown Rx potassium citrate 10 mEq (1,080 10 meq PO DAILY 07/23/23 08/28/24 History mg) tablet,extended release fluticasone propionate 50 2 spray intranasal DAILY allergies 11/23/23 08/28/24 Rx mcg/actuation nasal #16 grams spray,suspension ipratropium bromide 21 mcg (0.03 2 spray intranasal BID #30 mL 11/23/23 08/28/24 Rx %) nasal spray naproxen 500 mg tablet (Naprosyn) 500 mg PO BID PRN pain #20 tabs 12/19/23 Unknown Rx Held on 08/29/24. Instructions: Conflicting Appointment semaglutide 1 mg/dose (4 mg/3 mL) mg subcut 05/31/24 08/19/24 History subcutaneous pen injector (Ozempic) Allergy/AdvReac Type Severity Reaction Status Date / Time animal dander Allergy Chest Verified 11/27/24 11:05 tightness grass pollen Allergy Other Verified 11/27/24 11:05 house dust Allergy Other Verified 11/27/24 11:05 pollen extracts Allergy Other Verified 11/27/24 11:05 Family History Father Chronic a-fib CVA (cerebral vascular accident) Mother ROBERT (obstructive sleep apnea) Breast cancer Grandfather Cancer bladder Other Diabetes Surgical History H/O hernia repair H/O eye surgery S/P ALLERGY AND IMMUNOLOGY CHIEF shunt Social History Smoking Status: Never smoker ROS <GUICHO Jarrell - Last Filed: 11/27/24 14:41> ROS ED Constitutional Constitutional ED: Denies chills or fever(s) Cardiovascular Cardiovascular: Denies chest pain Respiratory/Chest Respiratory/Chest: Denies dyspnea Gastrointestinal Gastrointestinal: Denies abdominal pain, nausea or vomiting Genitourinary Genitourinary ED: Denies dysuria, hematuria or urinary urgency Musculoskeletal Musculoskeletal: Reports arthralgias; Denies myalgias Integumentary Denies Abrasions Neurologic Neurologic: Denies headache(s) or weakness EXAM <GUICHO Jarrell - Last Filed: 11/27/24 14:41> Physical Exam Const Vital Signs: 11/27/24 11:01 11/27/24 13:00 11/27/24 13:21 Temperature 98.5 F 98.4 F Temperature Source Oral Pulse Rate 87 81 81 Respiratory Rate 25 H 16 16 Blood Pressure 152/73 H 131/69 H 131/69 H Blood Pressure Mean 99 89 89 Pulse Ox 96 93 94 Oxygen Delivery Method Room Air Room Air Positive well nourished, well developed and no apparent distress General Appearance ED: well developed HEENT Reports normocephalic and head/scalp atraumatic Mouth ED: Yes moist mucous membranes normal Eyes PERRL and EOMs intact bilaterally Neck full ROM and supple Chest Wall inspection of chest normal Resp normal respiratory effort and clear to auscultation bilaterally Cardio regular rate and regular rhythm GI soft to palpation, non-tender, non-distended and no masses Back/Spine normal ROM and normal to inspection Extremity normal to inspection and full ROM Extremity Narrative: Pain to the left greater trochanter, slight pain to the left hip with log roll. Bilateral DP pulse 2+, good cap refill, sensation intact Mild nonpitting edema to the bilateral feet and ankles Neuro oriented x3, CN's II-XII intact bilaterally, moves all extremities, no focal motor deficits and no sensory deficits noted Sensorium / Orientation: awake and alert Psych mental status grossly normal and thought process normal Skin no rashes or lesions noted and no wounds <Dr. Davonte Mendez DO - Last Filed: 11/27/24 19:05> Physical Exam Const Vital Signs: 11/27/24 11:01 11/27/24 13:00 11/27/24 13:21 Temperature 98.5 F 98.4 F Temperature Source Oral Pulse Rate 87 81 81 Respiratory Rate 25 H 16 16 Blood Pressure 152/73 H 131/69 H 131/69 H Blood Pressure Mean 99 89 89 Pulse Ox 96 93 94 Oxygen Delivery Method Room Air Room Air [facility] <GUICHO Jarrell - Last Filed: 11/27/24 14:41> [facility] Narrative Medical decision making narrative: Patient presenting today due to a fall that occurred this morning. He got up to help his with something and was not using his cane and lost his balance and fell onto his side, his then noticed he bobbed his head against the ground about 3 times and was not answering her for a few minutes. He does have a history of a seizure disorder and is compliant with his Keppra. He does not think that he had a seizure and thinks that he just was in shock from the fall and could not answer her. He did not have any loss of consciousness, no incontinence. He reports concerns due to hitting his head against the ground a few times due to his ALLERGY AND IMMUNOLOGY CHIEF shunt. Therefore, a shuntogram and head CT obtained to assess for intracranial abnormality. These came back negative. He reported left hip pain from the fall, this is negative for fracture but show severe arthritis. He also has complaints of lower extremity edema which is chronic for him, he upped his Lasix dose a few days ago and has had improvement of the swelling. He has mild foot and ankle swelling on my exam. No evidence for DVT. Labs obtained, his CBC, BMP, troponin, and BNP are unremarkable aside from hyperglycemia at 303, no evidence of DKA. Patient was instructed to follow-up with his PCP over the next 5 to 7 days. He will be discharged home in stable condition. Lab Data Attestation: I reviewed the patient's lab results. Labs: Laboratory Results - last 24 hr 11/27/24 11:19 WBC 7.6 RBC 5.14 Hgb 15.1 Hct 45.3 MCV 88.1 MCH 29.4 MCHC 33.3 RDW Std Deviation 49.7 H RDW Coeff of Kusum 15.4 H Plt Count 190 MPV 11.8 Immature Gran % (Auto) 1.300 H Neut % (Auto) 64.3 Lymph % (Auto) 25.6 Jerauld % (Auto) 5.5 Eos % (Auto) 2.6 Baso % (Auto) 0.7 Absolute Neuts (auto) 4.9 Absolute Lymphs (auto) 1.95 Nucleated RBC % 0 Sodium 138 Potassium 3.9 Chloride 100 Carbon Dioxide 24.1 Anion Gap 14 BUN 16 Creatinine 0.61 L Estim Creat Clear Calc 227.50 Est GFR (MDRD) Non-Af 125 BUN/Creatinine Ratio 26.2 H Glucose 303 H Calcium 9.2 Troponin T High Sens 12 NT pro BNP II < 36 Radiography X-Ray: Read by ED Physician Diagnostic Testing: Clinical Impression(s) from Imaging Studies Brain CT 11/27/24 11:36 IMPRESSION: No acute process detected. Reading [facility] Hip/Pelvis X-Ray 11/27/24 11:36 IMPRESSION: Advanced osteoarthritis of left hip. Reading Location: [facility] Shuntogram 11/27/24 12:09 IMPRESSION: Patent ALLERGY AND IMMUNOLOGY CHIEF shunt. Reading Location: [facility] EKG Initial EKG: Comments: 89 bpm, sinus rhythm, no ST elevation, interpreted by attending ED physician <Dr. Davonte Mendez, DO - Last Filed: 11/27/24 19:05> MDM MDM Narrative Medical decision making narrative: Patient presenting today due to a fall that occurred this morning. He got up to help his with something and was not using his cane and lost his balance and fell onto his side, his then noticed he bobbed his head against the ground about 3 times and was not answering her for a few minutes. He does have a history of a seizure disorder and is compliant with his Keppra. He does not think that he had a seizure and thinks that he just was in shock from the fall and could not answer her. He did not have any loss of consciousness, no incontinence. He reports concerns due to hitting his head against the ground a few times due to his ALLERGY AND IMMUNOLOGY CHIEF shunt. Therefore, a shuntogram and head CT obtained to assess for intracranial abnormality. These came back negative. He reported left hip pain from the fall, this is negative for fracture but show severe arthritis. He also has complaints of lower extremity edema which is chronic for him, he upped his Lasix dose a few days ago and has had improvement of the swelling. He has mild foot and ankle swelling on my exam. No evidence for DVT. Labs obtained, his CBC, BMP, troponin, and BNP are unremarkable aside from hyperglycemia at 303, no evidence of DKA. Patient was instructed to follow-up with his PCP over the next 5 to 7 days. He will be discharged home in stable condition. ED attending note: I evaluated the patient in conjunction with the ROQUE. I agree with his/her statements and above findings. I have personally performed a face to face assessment of the patient and have reviewed the ROQUE Note. I performed a substantive portion of the visit including all aspects of the following. I personally saw the patient performed chart review, physical exam, reviewed labs, imaging (if obtained), and formulated a treatment and management plan. History as above Exam as above MDM/plan: X-ray of the patient's hip was read and reviewed person myself show no evidence of obvious bony abnormality. Radiologist agrees my interpretation X-ray of the patient's ALLERGY AND IMMUNOLOGY CHIEF shunt was read and reviewed personally by myself showed no evidence of obvious shunt kinking or occlusion. Radiologist agrees my interpretation This note was generated with [employer] software. It may contain incorrect words, spelling, and punctuation that were not noted in review of the chart prior to signing. Lab Data Labs: Laboratory Results - last 24 hr 11/27/24 11:19 WBC 7.6 RBC 5.14 Hgb 15.1 Hct 45.3 MCV 88.1 MCH 29.4 MCHC 33.3 RDW Std Deviation 49.7 H RDW Coeff of Kusum 15.4 H Plt Count 190 MPV 11.8 Immature Gran % (Auto) 1.300 H Neut % (Auto) 64.3 Lymph % (Auto) 25.6 Jerauld % (Auto) 5.5 Eos % (Auto) 2.6 Baso % (Auto) 0.7 Absolute Neuts (auto) 4.9 Absolute Lymphs (auto) 1.95 Nucleated RBC % 0 Sodium 138 Potassium 3.9 Chloride 100 Carbon Dioxide 24.1 Anion Gap 14 BUN 16 Creatinine 0.61 L Estim Creat Clear Calc 227.50 Est GFR (MDRD) Non-Af 125 BUN/Creatinine Ratio 26.2 H Glucose 303 H Calcium 9.2 Troponin T High Sens 12 NT pro BNP II < 36 Radiography Diagnostic Testing: Clinical Impression(s) from Imaging Studies Brain CT 11/27/24 11:36 IMPRESSION: No acute process detected. Reading [facility] Hip/Pelvis X-Ray 11/27/24 11:36 IMPRESSION: Advanced osteoarthritis of left hip. Reading Location: [facility] Shuntogram 11/27/24 12:09 IMPRESSION: Patent ALLERGY AND IMMUNOLOGY CHIEF shunt. Reading Location: [facility] Discharge Plan Triage Chief Complaint: Edema ED Midlevel Provider: Krystina Hernández ED Provider: Davonte Mendez Dx/Rx/DC Orders Clinical Impression: Fall, Observed seizure-like activity, Lower extremity edema Instructions: ED Lymphedema, ED Seizure, Recurrent (Adult) Prescriptions: No Action colchicine 0.6 mg tablet 0.6 mg PO PRN Patient Comments: take 1 tablet by mouth every 6 hours if needed for GOUT FLARE albuterol sulfate 2.5 mg /3 mL (0.083 %) solution for nebulization 2.5 mg inhalation Q4H PRN (Reason: shortness of breath or wheezing) Qty: 180 11RF Patient Comments: has not taken to date, on standby albuterol sulfate 90 mcg/actuation HFA aerosol inhaler 2 inh inhalation Q4H PRN PRN (Reason: Sob &/Or Wheezing) Qty: 8.5 11RF Patient Comments: has not taken, on standby budesonide-formoterol [Symbicort] 160-4.5 mcg/actuation HFA aerosol inhaler 2 puff inhalation BID Qty: 10.2 11RF montelukast 10 mg tablet 10 mg PO DAILY Qty: 90 3RF (DME) spacer See Rx Instructions .ROUTE .MEDSUPPLY Qty: 1 0RF Rx Instructions: As directed potassium citrate 10 mEq (1,080 mg) tablet extended release 10 meq PO DAILY Patient Comments: TAKE 1 TABLET BY MOUTH EVERY DAY ipratropium bromide 21 mcg (0.03 %) spray,non-aerosol 2 spray intranasal BID Qty: 30 6RF fluticasone propionate 50 mcg/actuation spray,suspension 2 spray INTRANASAL DAILY Qty: 16 11RF Ozempic 1 mg/dose (4 mg/3 mL) pen injector subcut allopurinol 300 MG tablet 300 mg PO DAILY Patient Comments: gout nebivolol 10 MG tablet 10 mg PO DAILY Patient Comments: blood pressure baclofen 20 MG tablet 20 mg PO Q12H pantoprazole 40 MG tablet 40 mg PO DAILY multivitamin with minerals 1 EACH tablet 1 tab PO DAILY levetiracetam 500 MG tablet 500 mg PO BID Patient Comments: seizure fluoxetine 10 mg capsule 20 mg PO DAILY Patient Comments: TAKE 1 CAPSULE BY MOUTH EVERY DAY acetaminophen 325 MG tablet 650 mg PO Q6H PRN PRN (Reason: Pain Score 1-10/Temp > 100.7 F) 0RF furosemide 20 MG tablet 40 mg PO BID Patient Comments: Diuretic (water pill) naproxen [Naprosyn] 500 mg tablet 500 mg PO BID PRN (Reason: pain) Qty: 20 0RF Primary Care Provider: Aliza Roman Referrals: Aliza Roman MD [Primary Care Provider] - 5-7 Days Activity Restrictions/Additional Instructions: Follow-up with your PCP and return for any worsening symptoms. Print Language: Emirati Disposition Disposition: Home, Self Care Discharge Date/Time: 11/27/24 13:32
[2024-11-27 11:51] LABS: Absolute Lymphocyte Count 1.95 X10^3/uL (0.83-4.51); Absolute Neutrophil Count 4.9 X10^3/uL (2.0-7.7); Basophil# 0.05 X10^3/uL; Basophil% 0.7 % (0-1); Eosinophils% 2.6 % (0-5); Hematocrit 45.3 % (40-54); Hemoglobin 15.1 g/dL (13.0-16.5); Lymphocyte # 1.95 X10^3/ul (0.83-4.51); Lymphocyte % 25.6 % (19-41); Mean Corp Hgb Conc 33.3 g/dL (32-36); Mean Corpuscular Hgb 29.4 pg (27.0-32.0); Mean Corpuscular Volume 88.1 fL (80-94); Mean Platelet Vol. 11.8 fl (6.2-12.0); Monocyte# 0.42 X10^3/uL; Monocyte% 5.5 % (0-10); NRBC Flagged by Analyzer 0 % (0-5); Neutrophil # 4.89 X10^3/uL (2.7-7.7); Neutrophil % 64.3 % (47-70); Platelet Count 190 K/mm3 (150-450); RBC Distribution Width CV 15.4 % (11.6-14.6); RBC Distribution Width SD 49.7 fl (35.1-43.9); Red Blood Count 5.14 M/mm3 (4.6-6.2); White Blood Count 7.6 K/mm3 (4.4-11.0)
--- NOTE | 2024-11-27 12:09 | RAD_ITS ---
EXAM: Diagnostic shuntogram of placed shunt. CLINICAL HISTORY: Bilateral lower extremity edema for 2 days. COMPARISON: Yesterday, November 26 pelvis and November 27 brain TECHNIQUE: Plain films were obtained to survey the entire course of the right-sided GENERAL WORKER shunt. FINDINGS: Skull demonstrates right parietal shunt. The tubing traverses the right skull and right thorax and then is seen right abdomen initially and then crosses over to the left abdomen. No obvious kinking or other abnormality. RAD/Shuntogram/Prev Placed Shunt IMPRESSION: Patent GENERAL WORKER shunt. Reading Location: [facility]
[2024-11-27 12:16] LABS: Troponin T High Sensitivity 12 ng/L (<=22)
[2024-11-27 12:17] LABS: Anion Gap 14 (5-15); BUN 16 mg/dL (4-19); BUN/Creat Ratio 26.2 RATIO (10-20); Calcium,Total 9.2 mg/dL (7.6-11.0); Carbon Dioxide 24.1 mmol/L (21.0-32.0); Chloride 100 mmol/L (98-108); Creatinine, Serum 0.61 mg/dL (0.70-1.20); EST Glomerular Filtration Rate 125 (>60); Glucose 303 mg/dL (70-99); Potassium 3.9 mmol/L (3.3-5.1); Sodium Level 138 mmol/L (133-145)
[2024-11-27 12:18] LABS: Pro- Brain NATRIURETIC PEPTIDE < 36 pg/mL (<=450)
[2024-11-27 13:00] VITALS: BP 131/69; PULSE 81; RESP 16; O2SAT 93
[2024-11-27 13:21] VITALS: BP 131/69; PULSE 81; RESP 16; TEMP 36.9; O2SAT 94
== END 2024-11-27 13:32 | disposition home or self-care (01) ==
PROVIDERS: Physician Assistant; Emergency Provider Emergency Medicine; PCP Family Medicine; Visit Provider Emergency Medicine
DX: G40.909 Epilepsy, unspecified, not intractable, without status epilepticus (principal); E11.65 Type 2 diabetes mellitus with hyperglycemia; M25.552 Pain in left hip; I10 Essential (primary) hypertension; R60.0 Localized edema; Z98.2 Presence of cerebrospinal fluid drainage device; E66.9 Obesity, unspecified; Z79.899 Other long term (current) drug therapy; W19.XXXA Unspecified fall, initial encounter; K21.9 Gastro-esophageal reflux disease without esophagitis; M16.12 Unilateral primary osteoarthritis, left hip
CPT/HCPCS: 70450; 73502; 75809; 80048; 83880; 84484; 85025; 93005; 99285

== ENCOUNTER 2025-01-09 06:24 | Day surgery (SDC) | payer MEDICARE, MEDICAID, SELFPAY ==
[2025-01-09] VITALS (7 sets, daily range): BP systolic 128–154; BP diastolic 80–90; PULSE 85–89; RESP 16–18; TEMP 36.6–36.7; O2SAT 94–98; BMI 60.1
[2025-01-09] MEDS: Lactated Ringers 1,000 ML 15 ML IV (07:03)
--- NOTE | 2025-01-09 07:15 | RAD_ITS ---
PROCEDURE: FLUORO GUIDED NEEDLE PLACEMENT 01/09/2025 REASON FOR EXAM: INJECTION LT HIP TECHNIQUE: Intraoperative fluoroscopic services provided for left hip injection. 8.4 seconds of fluoroscopy. 2.99 mGy. 3 images were obtained. COMPARISON: None FINDINGS: Intraoperative fluoroscopic services provided for left hip injection. RAD/Fluoro Guided Needle Placement IMPRESSION: Intraoperative fluoroscopic services provided for left hip injection. Reading Location: [facility]
--- NOTE | 2025-01-09 07:18 | PCM.PRE.AN2 ---
ASA Classification* ASA Classification ASA Classification: 3 Assessment & Plan Anesthesia* Anesthesia Assessment Anesthesia Assessment: Discussed sedation and/or anesthesia options, risks, benefits, and alternatives with patient/parents/legal guardian/POA. Questions invited. The patient/parents/legal guardian/POA seems to understand and agrees to proceed with anesthesia plan. Reviewed the physical assessment, medical history, allergy history and patient home medications list prior to surgery/procedure/anesthetic and documented any changes. Performed airway and anesthesia risk assessments. Anesthesia Type Anesthesia Type: MAC Anesthesia Focused Assessment* Temperature: 97.8 F Pulse Rate: 85 Blood Pressure: 154/90 Respiratory Rate: 18 Pulse Ox: 94 Airway Assessment Mouth opens: >3 cm Mallampati Score: II Focused Labs Anesthesia Preop lab: CBC WBC 7.6 K/mm3 (4.4-11.0) 11/27/24 11:19 11/27/24 RBC 5.14 M/mm3 (4.6-6.2) 11/27/24 11:19 11/27/24 Hgb 15.1 g/dL (13.0-16.5) 11/27/24 11:19 11/27/24 Hct 45.3 % (40-54) 11/27/24 11:19 11/27/24 Plt Count 190 K/mm3 (150-450) 11/27/24 11:19 11/27/24 CHEMISTRY Potassium 3.9 mmol/L (3.3-5.1) 11/27/24 11:19 11/27/24 Sodium 138 mmol/L (133-145) 11/27/24 11:19 11/27/24 Magnesium 2.1 mg/dL (1.6-2.6) 10/28/20 05:30 10/28/20 Phosphorus 2.4 mg/dL (2.5-4.9) L 01/28/20 08:30 01/28/20 BUN 16 mg/dL (4-19) 11/27/24 11:19 11/27/24 Creatinine 0.61 mg/dL (0.70-1.20) L 11/27/24 11:19 11/27/24 Glucose 303 mg/dL (70-99) H 11/27/24 11:19 11/27/24 POC Glucose 287 mg/dL (74-106) H 08/29/24 10:07 08/29/24 TSH 3.80 uIU/mL (0.358-3.74) H 01/29/20 06:12 01/29/20 COAG PT 13.3 SECONDS (11.7-14.9) 02/14/22 13:37 02/14/22 Pre-Assessment Diagnosis/Proposed Procedure Planned Operative Procedure(s): left hip injection Anesthesia History Anesthesia History - 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 When Was Last Pacemaker Check QUESTION #4 FULL TEXT: You/Your Family Experience fever (hyperthermia) with Anesthesia Last Oral Intake Last Oral intake: Last Oral Intake NPO since 21:00 01/09/25 06:48 Meds taken in AM with sips of No 01/09/25 06:48 water? 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 - crm marketing executive: PONV - crm marketing executive Female HX of Motion Sickness HX of N/V After Surgery Non-Smoker Duration of Surgery greater than 60 minutes Number of Risk Factors PONV Score Height & Weight Height & Weight: Anesthesia: Height & Weight Height 5 ft 4 in 01/09/25 06:48 Weight: 159 kg 01/09/25 06:48 Body Mass Index (BMI) 60.1 01/09/25 06:48 Respiratory Assessment Respiratory Assessment - crm marketing executive: Respiratory Tract Infection Hx - crm marketing executive Hx Respiratory Tract Infection No 03/17/24 08:06 STOP Sleep Apnea STOP Sleep Apnea - crm marketing executive: STOP Sleep Apnea - crm marketing executive Hx Hypertension Yes: CONTROLLED WITH MEDS 03/17/24 08:06 Hx Sleep Apnea Yes 03/28/24 08:47 CPAP No 03/17/24 08:06 BIPAP Yes 07/25/24 08:06 Do you snore loudly (louder than talking or can be heard Do you often feel tired/ fatigued/ sleepy during daytime? Has anyone observed you stop breathing during sleep? STOP Results QUESTION #5 FULL TEXT : Do you snore loudly (louder than talking or can be heard through closed doors)? Tobacco Use History Tobacco Use History - crm marketing executive: Tobacco Use History - crm marketing executive Tobacco Use Non-smoker 02/27/22 14:09 Smoking Status Never smoker 11/27/24 11:04 Hx Tobacco Use No 03/17/24 08:06 Years Smoking Packs Smoked per Day Smoking Cessation Date was within the last 15 years Hx Smoking Cessation Date Hx Smoking Cessation Counseling Hematologic Medial History Hematologic Hx - crm marketing executive: Hematologic Medical Hx - radiographer cardiac catheterization Hx of Blood Transfusion Hx of Transfusion in last 3 Months Date of Last Transfusion (if within last 3 months) Ever experience any problems with transfusion(s)? Specify any problems Hx of Preganancy in last 3 Months Nurse Filling Out Transfusion & Questions: Date: Time: Patient unable to answer at this time (ie. confused, unrespo /Reproduction History /Reproductive History - crm marketing executive: /Reproductive Hx- crm marketing executive Hx Now Gestational Age (in weeks): EDC: Hx Hx Para Hx Section SAB Active Medications Active Medications: Current Medications Generic Name Dose Route Start Last Admin Trade Name Freq PRN Reason Stop Dose Admin Lactated Ringer's 1,000 mls @ 15 mls/hr 01/09/25 06:30 01/09/25 07:03 IV 15 mls/hr .Q48H ZAIN Administration PFSH Medical History ROBERT treated with BiPAP Cerebral palsy Anxiety Chronic cough Diabetes Non-smoker History of echocardiogram History of stress test 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 Seizure disorder Depression Hypertension History of bronchitis History of pneumonia GERD (gastroesophageal reflux disease) Chest pain Vertigo Super obesity Bronchial asthma Gout Type II diabetes mellitus History of cerebral palsy Obstructive sleep apnea Benign hypertension Home Medications ?Medication ?Instructions ?Recorded ?Last Taken ?Type nebivolol 10 mg tablet 10 mg PO DAILY heart 06/09/15 08/28/24 History baclofen 20 mg tablet 20 mg PO Q12H muscle spasms 06/25/18 08/28/24 History pantoprazole 40 mg tablet,delayed 40 mg PO DAILY gi 06/25/18 08/28/24 History release levetiracetam 500 mg tablet 500 mg PO BID seizures 01/28/20 08/28/24 History acetaminophen 325 mg tablet 650 mg (2 x 325 mg) PO Q6H PRN PRN 04/14/20 08/22/24 Rx Pain Score 1-10/Temp > 100.7 F furosemide 20 mg tablet 40 mg PO BID diuretic 10/13/21 08/28/24 History colchicine 0.6 mg tablet 0.6 mg PO PRN gout 12/02/21 08/22/24 History albuterol sulfate 2.5 mg/3 mL 2.5 mg (3 mL) inhalation Q4H PRN 01/05/23 Unknown Rx (0.083 %) solution for nebulization shortness of breath or wheezing #180 mL albuterol sulfate 90 mcg/actuation 2 inh inhalation Q4H PRN PRN Sob 01/05/23 Unknown Rx aerosol inhaler &/Or Wheezing #8.5 grams montelukast 10 mg tablet 10 mg PO DAILY allergies #90 tabs 01/05/23 08/28/24 Rx spacer #1 ea 01/05/23 Unknown Rx potassium citrate 10 mEq (1,080 10 meq PO DAILY 07/23/23 08/28/24 History mg) tablet,extended release allopurinol 300 mg tablet 300 mg PO BID gout 12/19/24 Unknown History 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 sensor (FreeStyle #2 ea 12/19/24 Unknown Rx Nancy 3 Plus Sensor device) 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,medicare interviewer,cont #1 ea 12/19/24 Unknown Rx (FreeStyle Nancy 3 [place]) celecoxib 200 mg capsule 200 mg PO DAILY 12/19/24 Unknown History insulin regular hum U-500 conc 500 100 unit (0.2 mL) subcut TIDWMEAL 12/19/24 Unknown Rx unit/mL(3 mL) subcut pen (Humulin #18 mL R U-500 (Conc) Insulin Kwikpen) rosuvastatin 5 mg tablet 5 mg PO QDAY #30 tabs 12/19/24 Unknown Rx tirzepatide 2.5 mg/0.5 mL 2.5 mg (0.5 mL) subcut QWEEK #2 mL 12/19/24 Unknown Rx subcutaneous pen injector (Mounjaro) Allergy/AdvReac Type Severity Reaction Status Date / Time animal dander Allergy Chest Verified 01/09/25 06:46 tightness grass pollen Allergy Other Verified 01/09/25 06:46 house dust Allergy Other Verified 01/09/25 06:46 pollen extracts Allergy Other Verified 01/09/25 06:46 Family History Father Chronic a-fib CVA (cerebral vascular accident) Mother ROBERT (obstructive sleep apnea) Breast cancer Grandfather Cancer bladder Other Diabetes Hypertension Thyroid disorder Surgical History H/O hernia repair H/O eye surgery S/P WELDER shunt Social History Smoking Status: Never smoker Review of Systems (Anesthesia) ROS Narrative System reviewed and no additional complaints, except as documented.
[2025-01-09] MEDS: MethylPREDNISolone Acetate 80 MG/ML Vial (08:16)
[2025-01-09] MEDS: Lidocaine 1% (5 ml sdv) 5 ML Vial (08:16)
[2025-01-09] MEDS: Bupivacaine 0.25% 30 ML Vial (08:16)
--- NOTE | 2025-01-09 08:24 | OP.PCM_ITS ---
Operative Report (Standard) Operative Information Date of Procedure: 01/09/25 Pre-Operative Diagnosis: 1 Post-Operative Diagnosis: 1 Surgery/Procedure Performed: 1 grinder set up operator centerless: No Type of Anesthesia: Local MAC RN Documented Start/Stop Times: Operation Date: 01/09/25 08:15 Case Time Into Pre-Op 01/09/25 06:28 Out of Pre-Op 01/09/25 08:04 Anesthesia Start 01/09/25 08:07 Into Room 01/09/25 08:07 Procedure Start 01/09/25 08:17 Procedure End 01/09/25 08:18 Anesthesia End 01/09/25 08:21 Out of Room 01/09/25 08:21 Procedure Start Time: 08:24 Procedure Stop Time: 08:24 Select all DRAINS/GRAFTS/IMPLANTS that apply: None Estimated Blood Loss: 1 Specimen collected: No Description of surgery: PREOPERATIVE DIAGNOSIS: Osteoarthritis of the left hip POSTOPERATIVE DIAGNOSIS: Osteoarthritis of the left hip PROCEDURE PERFORMED: Left hip intraarticular steroid injection under fluoroscopy guidance. ANESTHESIA: MAC BLOOD LOSS: Minimal. COMPLICATIONS: None. DESCRIPTION OF PROCEDURE: History and physical of today was reviewed. Risks and benefits of the procedure were explained. The patient understood and agreed to proceed. Informed consent was obtained. IV inserted per routine protocol. The patient was taken to the operating room and placed in the supine position. The left hip area was prepped and draped in a sterile fashion using iodine x3. Under fluoroscopy guidance on AP view, the left hip joint was visualized. The skin and subcutaneous tissue was anesthetized with approximately 3 mL of 1% lidocaine using a 25-gauge regular needle approximately 3 cm cephalad to the left greater trochanter. Under direct visualization with fluoroscopy on an AP view, using a 22-gauge 5-inch spinal needle, the needle was advanced via the skin using the lateral approach. The tip of the needle was maneuvered and directed towards the superiormost aspect of the hip joint. Once the tip of the needle was at the vicinity of the joint, after negative aspiration for blood and positive aspiration of synovial fluid, a total of 1 mL of contrast was injected to confirm correct placement of the needle as well as halo spread around the hip joint. After repeated negative aspiration for blood and confirmation on AP as well as oblique view, a total of 10 mL of preservative-free 0.25% Marcaine with 80 mg of Depo-Medrol was injected easily. The needle was then removed intact. The patient experienced no sign or symptoms of intrathecal or intravascular injection. The patient experienced no paresthesia. The procedure was completed without any apparent difficulty or any complications. The patient appeared to tolerate it well. ASSESSMENT AND PLAN: This is a 39-year-old male with osteoarthritis of the left hip status post left hip intra-articular steroid injection under fluoroscopic guidance, patient will continue his current medications, patient will follow up in approximately 2 weeks for reevaluation. Surgical Findings: 1 Complications Complications: No Admit VTE Documentation VTE Present on Admission: No VTE Mechan Device Prophylaxis: None VTE Pharm Prophylaxis ordered?: No
--- NOTE | 2025-01-09 08:59 | PCM.POST.ANE ---
Anesthesia: Postop Eval I Current Vital Signs Temperature: 98 F Pulse Rate: 85 Blood Pressure: 154/87 Respiratory Rate: 16 Pulse Ox: 98 Oxygen Delivery Method: Room Air Assessment Airway patent: Yes Spontaneous unlabored respirations: Yes Mental status: Awake and Calm nausea: No Vomiting: No Anesthesia Complication: No Fluid Hydration Crystalloid volume administer (ml): 200 Total IV fluid infused: 200 Progress Note Anesthesia document: Postop Eval 1 completed: Yes
--- NOTE | 2025-01-09 09:09 | POSTOPAN2_ITS ---
Anesthesia Postop Eval I Sum Postop Eval Completion status Anesthesia document: Postop Eval 1 completed: Yes Anesthesia Postop Eval I Summary Anesthesia Postop Eval I Summary: Anesthesia Postop Eval I: Assessment Summary Airway patent Yes 01/09/25 09:00 SHORT STORY [email or web address] Spontaneous unlabored Yes 01/09/25 09:00 SHORT STORY [email or web address] respirations Mental status Awake,Calm 01/09/25 09:00 SHORT STORY [email or web address] nausea No 01/09/25 09:00 SHORT STORY [email or web address] Vomiting No 01/09/25 09:00 SHORT STORY [email or web address] Anesthesia Postop Eval I: Fluid Summary Crystalloid volume administer 200 01/09/25 09:00 SHORT STORY [email or web address] (ml) Colloids volume administered ( ml) Blood Product volume administered (ml) Total IV fluid infused 200 01/09/25 09:00 SHORT STORY [email or web address] Anesthesia Postop Eval I: Summary Notes Anesthesia Complication No 01/09/25 09:00 SHORT STORY [email or web address] Anesthesia Complication Comment: Post-operative progress note Anesthesia: Postop Eval II Evaluation Mental status: Awake Pain Level: 2 nausea: No Vomiting: No
--- NOTE | 2025-01-09 09:09 | PCM.POSTANE2 ---
Anesthesia Postop Eval I Sum Postop Eval Completion status Anesthesia document: Postop Eval 1 completed: Yes Anesthesia Postop Eval I Summary Anesthesia Postop Eval I Summary: Anesthesia Postop Eval I: Assessment Summary Airway patent Yes 01/09/25 09:00 GLASS PROCESSING WORKER.[email or web address] Spontaneous unlabored Yes 01/09/25 09:00 GLASS PROCESSING WORKER.[email or web address] respirations Mental status Awake,Calm 01/09/25 09:00 GLASS PROCESSING WORKER.[email or web address] nausea No 01/09/25 09:00 GLASS PROCESSING WORKER.[email or web address] Vomiting No 01/09/25 09:00 GLASS PROCESSING WORKER.[email or web address] Anesthesia Postop Eval I: Fluid Summary Crystalloid volume administer 200 01/09/25 09:00 GLASS PROCESSING WORKER.[email or web address] (ml) Colloids volume administered ( ml) Blood Product volume administered (ml) Total IV fluid infused 200 01/09/25 09:00 GLASS PROCESSING WORKER.[email or web address] Anesthesia Postop Eval I: Summary Notes Anesthesia Complication No 01/09/25 09:00 GLASS PROCESSING WORKER.[email or web address] Anesthesia Complication Comment: Post-operative progress note Anesthesia: Postop Eval II Evaluation Mental status: Awake Pain Level: 2 nausea: No Vomiting: No
== END 2025-01-09 08:49 | disposition home or self-care (01) ==
LOC: SDC 06:24 → AC 06:25
PROVIDERS: PCP Family Medicine; Referring Provider Anesthesiology Pain Medicine; Visit Provider Anesthesiology Pain Medicine
PROC: 3E0U3GC Introduction of Other Therapeutic Substance into Joints, Percutaneous Approach (ICD-10-PCS; CPT 20610; principal; 2025-01-09 08:10)
DX: M16.12 Unilateral primary osteoarthritis, left hip (principal); G80.9 Cerebral palsy, unspecified; G40.909 Epilepsy, unspecified, not intractable, without status epilepticus; E11.9 Type 2 diabetes mellitus without complications; Z79.4 Long term (current) use of insulin; I10 Essential (primary) hypertension; F41.9 Anxiety disorder, unspecified; F32.A Depression, unspecified; K21.9 Gastro-esophageal reflux disease without esophagitis; M10.9 Gout, unspecified; G47.33 Obstructive sleep apnea (adult) (pediatric); Z79.85 Long-term (current) use of injectable non-insulin antidiabetic drugs; Z79.899 Other long term (current) drug therapy
CPT/HCPCS: 20610; 76000; 77002

== ENCOUNTER 2025-04-23 16:29 | Emergency (ER) | payer MEDICARE, MEDICAID, SELFPAY ==
[2025-04-23 16:30] VITALS: BP 153/66; PULSE 95; RESP 20; TEMP 36.9; O2SAT 97; BMI 59.4
--- NOTE | 2025-04-23 16:38 | EX.ED.DYSGE1 ---
HPI History of Present Illness Chief Complaint: Lower Extremity Injury Detail of Chief Complaint: Pain localized to the left greater trochanteric region. Informant: patient, spouse/S.O. and EMS Onset/Context/Timing Onset: Days (Pain has gotten worse over the past 2 days) Context: Sudden Onset Timing: Continuous Quality: Pain Location: Points to the left greater trochanteric region. Current Severity: Mild Maximum Severity: Severe Worsened by: Weightbearing Relieved by: Nothing Associated Symptoms Associated Symptoms: Denies paresthesia, anesthesia or motor weakness. Denies symptoms of ji Narrative Narrative: Patient states Dr. Alexis and checks his hip with cortisone. He was asked specifically he has history of osteoporosis. He was not certain. Review of prior records and outside records indicates he does have osteoarthritis of his left hip joint. He was asked if he has [id number]. He responded yes. He denies fever, chills night sweats. He denies urologic symptoms. He denies paresthesia, anesthesia motors. He is a type II diabetic on Mounjaro and insulin. He takes insulin prior to eating. He denies cramps or pain in his calf or thigh with walking. He has not noted a rash over the left hip region. He denies direct or indirect trauma to the hip area. Prior similar symptoms: Yes Recent Illness/Hospitalization: No PFSH PFSH Medical History ROBERT treated with BiPAP Cerebral palsy Anxiety Chronic cough Diabetes Non-smoker History of echocardiogram History of stress test 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 Seizure disorder Depression Hypertension History of bronchitis History of pneumonia GERD (gastroesophageal reflux disease) Chest pain Vertigo Super obesity Bronchial asthma Gout Type II diabetes mellitus History of cerebral palsy Obstructive sleep apnea Benign hypertension Medical History no medical history Home Medications ?Medication ?Instructions ?Recorded ?Last Taken ?Type baclofen 20 mg tablet 20 mg PO Q12H muscle spasms 06/25/18 08/28/24 History pantoprazole 40 mg tablet,delayed 40 mg PO DAILY gi 06/25/18 08/28/24 History release acetaminophen 325 mg tablet 650 mg (2 x 325 mg) PO Q6H PRN PRN 04/14/20 08/22/24 Rx Pain Score 1-10/Temp > 100.7 F furosemide 20 mg tablet 40 mg PO BID diuretic 10/13/21 08/28/24 History colchicine 0.6 mg tablet 0.6 mg PO PRN gout 12/02/21 08/22/24 History albuterol sulfate 2.5 mg/3 mL 2.5 mg (3 mL) inhalation Q4H PRN 01/05/23 Unknown Rx (0.083 %) solution for nebulization shortness of breath or wheezing #180 mL albuterol sulfate 90 mcg/actuation 2 inh inhalation Q4H PRN PRN Sob 01/05/23 Unknown Rx aerosol inhaler &/Or Wheezing #8.5 grams montelukast 10 mg tablet 10 mg PO DAILY allergies #90 tabs 01/05/23 08/28/24 Rx spacer #1 ea 01/05/23 Unknown Rx potassium citrate 10 mEq (1,080 10 meq PO DAILY 07/23/23 08/28/24 History mg) tablet,extended release allopurinol 300 mg tablet 300 mg PO BID gout 12/19/24 Unknown History 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,movie star,cont #1 ea 12/19/24 Unknown Rx (FreeStyle Nancy 3 Kerrick) celecoxib 200 mg capsule 200 mg PO DAILY 12/19/24 Unknown History rosuvastatin 5 mg tablet 5 mg PO QDAY #30 tabs 12/19/24 Unknown Rx budesonide-formoterol HFA 160 2 inh inhalation BID #1 ea 01/23/25 Unknown Rx mcg-4.5 mcg/actuation aerosol inhaler (Symbicort) levetiracetam 500 mg tablet 500 mg PO BID seizures 01/23/25 Unknown History nebivolol 10 mg tablet 10 mg PO DAILY heart 01/23/25 Unknown History 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 sensor (FreeStyle #2 ea 02/06/25 Unknown Rx Nancy 3 Plus Sensor device) insulin regular hum U-500 conc 500 115 unit (0.23 mL) subcut TIDWMEAL 02/06/25 Unknown Rx unit/mL(3 mL) subcut pen (Humulin #18 mL R U-500 (Conc) Insulin Kwikpen) tirzepatide 5 mg/0.5 mL 5 mg (0.5 mL) subcut QWEEK #2 mL 02/06/25 Unknown Rx subcutaneous pen injector (Ean) hydrocodone-acetaminophen 5-325mg 1 tab PO Q6H PRN PRN Pain 5 days 04/23/25 Unknown Rx 5mg-325mg #20 TABLETS Allergy/AdvReac Type Severity Reaction Status Date / Time animal dander Allergy Chest Verified 02/06/25 13:06 tightness grass pollen Allergy Other Verified 02/06/25 13:06 house dust Allergy Other Verified 02/06/25 13:06 pollen extracts Allergy Other Verified 02/06/25 13:06 Family History Father Chronic a-fib CVA (cerebral vascular accident) Mother ROBERT (obstructive sleep apnea) Breast cancer Grandfather Cancer bladder Other Diabetes Hypertension Thyroid disorder Family History no significant family his Surgical History H/O hernia repair H/O eye surgery S/P CHILD ADVOCATE shunt Surgical History no surgical history Social History (Updated 04/23/25 @ 16:[address] Dre Johnson MD) household members: spouse Smoking Status: Never smoker ROS ROS ED Constitutional Constitutional ED: Denies chills, fever(s), subjective, sweats or weight loss Gastrointestinal Gastrointestinal: Denies abdominal pain, nausea or vomiting Genitourinary Genitourinary ED: Denies dysuria or urinary frequency Musculoskeletal Musculoskeletal: Reports other Details: Pain left hip region ; Denies arthralgias, back pain, myalgias or neck pain Integumentary Denies Abrasions or rash Neurologic Neurologic: Denies paresthesias or weakness Endocrine Endocrinology: Denies cold intolerance or heat intolerance Hematologic/Lymphatic Hematologic/Lymphatic: Reports systems reviewed and no addt'l complaints, except as documented EXAM Physical Exam Const Vital Signs: 04/23/25 16:30 Temperature 98.4 F Temperature Source Oral Pulse Rate 95 Respiratory Rate 20 H Blood Pressure 153/66 H Blood Pressure Mean 95 Pulse Ox 97 Oxygen Delivery Method Room Air Positive well nourished and well developed Constitutional Narrative: Patient's BMI is 59.4. Vital signs are remarkable for elevated blood pressure of 153/66. Pulse pressure slightly widened pulse. General Appearance ED: well developed and NAD; Negative for cyanotic, diaphoretic or pallor HEENT Reports moist mucous membranes HEENT Narrative: Head is atraumatic. Eyes are normal. Ears are normal. Eyes PERRL and EOMs intact bilaterally General Eye ED: Negative for pale conjunctiva or scleral icterus Resp normal respiratory effort and clear to auscultation bilaterally Cardio regular rate, regular rhythm, S1 normal heart sound, S2 normal heart sound and no murmurs GI normal to inspection, nondistended, normoactive bowel sounds, non-tender, non-distended and no masses; Negative for hepatosplenomegaly Extremity Negative for normal to inspection Extremity Narrative: Patient has thickening of his toenails. He still has hair on his toes. DP pulse was palpable. PT was not due to edema. Capillary refill is normal. Sensation is normal right and left foot. Logrolling of his left lower extremity does not cause him discomfort. He is able to lift his leg up off the bed. He does have pain outpatient over the left greater trochanteric region. Neuro oriented x3, CN's II-XII intact bilaterally and no sensory deficits noted Sensorium / Orientation: alert Psych Mood & Affect: depressed Skin no rashes or lesions noted, no wounds and skin turgor normal General Skin Exam: Negative for jaundice or pallor MDM MDM MDM Narrative Medical decision making narrative: Suspect patient has exacerbation of his osteoarthritis based on review of outside records and ER records. Outside records were reviewed and were authored by Lesvia Russo, for endocrine and management of his diabetes, Dania Kenny regarding his pulmonary disease and obstructive sleep apnea, ER visit November of this year for fall. Also records from earlier this year regarding sleep lab note. Suspect patient's pain is due to osteoarthritis and is worse since his BMI is 59.4. Has not had images for 2 to 3 years. Will reimage the area and obtain basic blood work to assess white count, electrolytes and specifically glucose renal function and inflammatory markers. History & Record Review Additional record(s) reviewed:: Prior outpatient record, Prior ED visit and Prior labs Lab Data Attestation: I reviewed the patient's lab results. Lab results narrative: CBC is unremarkable. Basic metabolic panel reveals glucose of 195. CO2 anion gap are normal. Sed rate slightly elevated. This is nonspecific. Labs: Laboratory Results - last 24 hr 04/23/25 16:58 WBC 9.8 RBC 5.03 Hgb 14.5 Hct 43.6 MCV 86.7 MCH 28.8 MCHC 33.3 RDW Std Deviation 46.8 H RDW Coeff of [place] 14.9 H Plt Count 206 MPV 10.7 Immature Gran % (Auto) 0.900 Neut % (Auto) 64.0 Lymph % (Auto) 24.9 [place] % (Auto) 6.6 Eos % (Auto) 3.1 Baso % (Auto) 0.5 Absolute Neuts (auto) 6.3 Absolute Lymphs (auto) 2.44 Nucleated RBC % 0 ESR 37 H Sodium 143 Potassium 4.0 Chloride 105 Carbon Dioxide 25.1 Anion Gap 13 BUN 12 Creatinine 0.60 L Estim Creat Clear Calc 227.69 Est GFR (MDRD) Non-Af 125 BUN/Creatinine Ratio 20.1 H Glucose 195 H Calcium 8.9 Radiography Chest X-Ray - ED: Read by ED Physician (Three-view x-ray of the left hip reveals severe osteoarthritis. This has progressed significantly since December 2022. There is no fracture, subluxation dislocation noted. There is asymmetry of the femoral head) Diagnostic Testing: Clinical Impression(s) from Imaging Studies Hip/Pelvis X-Ray 04/23/25 17:05 IMPRESSION: Very severe osteoarthritis of the left hip. This has significantly worsened since December 2022. No fracture. Note: The femoral heads are aspherical. Correlate with impingement. Orthopedic consultation suggested to ensure no significant bony reduction and bone stock and remodeling of the acetabulum in this young patient. Reading Location: [id number] The report by radiologist was reviewed at 1731. Will ask if he is seen by orthopedics. He is present under the care of pain management. Based on this he at the minimum needs orthopedic referral to determine if total hip arthroplasty is still an option. Treatment and Re-Evaluation :: Patient and were told he has significant osteoarthritis. He has seen orthopedic surgeon. He informed that he has seen multiple orthopedic surgeons. He is even been seen by the [facility] and they are reluctant to do surgery because of his obstructive sleep apnea and body weight. He has declined bypass surgery. Patient was treated with opiate analgesics for pain. He is instructed to follow-up with orthopedics because of the significant changes noted since 2022. Discharge Plan Triage Chief Complaint: Lower Extremity Injury ED Provider: Dre Johnson Dx/Rx/DC Orders Clinical Impression: Osteoarthritis of left hip, Type II diabetes mellitus, S/P CHILD ADVOCATE shunt, Obesity hypoventilation syndrome, Fatty liver disease, nonalcoholic, Obstructive sleep apnea, History of cerebral palsy, Body mass index (BMI) greater than 50 Instructions: ED Osteoarthritis Prescriptions: New hydrocodone-acetaminophen 5-325 mg tablet 1 tab PO Q6H PRN PRN (Reason: Pain) 5 Days Qty: 20 0RF No Action colchicine 0.6 mg tablet 0.6 mg PO PRN Patient Comments: take 1 tablet by mouth every 6 hours if needed for GOUT FLARE albuterol sulfate 2.5 mg /3 mL (0.083 %) solution for nebulization 2.5 mg inhalation Q4H PRN (Reason: shortness of breath or wheezing) Qty: 180 11RF Patient Comments: has not taken to date, on standby albuterol sulfate 90 mcg/actuation HFA aerosol inhaler 2 inh inhalation Q4H PRN PRN (Reason: Sob &/Or Wheezing) Qty: 8.5 11RF Patient Comments: has not taken, on standby montelukast 10 mg tablet 10 mg PO DAILY Qty: 90 3RF (DME) spacer See Rx Instructions .ROUTE .MEDSUPPLY Qty: 1 0RF Rx Instructions: As directed potassium citrate 10 mEq (1,080 mg) tablet extended release 10 meq PO DAILY Patient Comments: TAKE 1 TABLET BY MOUTH EVERY DAY celecoxib 200 mg capsule 200 mg PO DAILY (DME) FreeStyle Nancy 3 Kerrick Misc See Rx Instructions .Route Qty: 1 0RF Rx Instructions: As directed rosuvastatin 5 mg tablet 5 mg PO QDAY Qty: 30 5RF budesonide-formoterol [Symbicort] 160-4.5 mcg/actuation HFA aerosol inhaler 2 inh inhalation BID Qty: 1 11RF Rx Instructions: administer with spacer, rinse mouth after each use Mounjaro 5 mg/0.5 mL pen injector 5 mg subcut QWEEK Qty: 2 3RF (DME) FreeStyle Nancy 3 Plus Sensor Device See Rx Instructions .Route Qty: 2 5RF Rx Instructions: 1 sensor 15 q days Humulin R U-500 (Conc) Kwikpen 500 unit/mL (3 mL) insulin pen 115 unit subcut TIDWMEAL Qty: 18 5RF allopurinol 300 mg tablet 300 mg PO BID Patient Comments: gout nebivolol 10 mg tablet 10 mg PO DAILY Patient Comments: blood pressure baclofen 20 MG tablet 20 mg PO Q12H pantoprazole 40 MG tablet 40 mg PO DAILY levetiracetam 500 mg tablet 500 mg PO BID Patient Comments: seizure acetaminophen 325 MG tablet 650 mg PO Q6H PRN PRN (Reason: Pain Score 1-10/Temp > 100.7 F) 0RF furosemide 20 MG tablet 40 mg PO BID Patient Comments: Diuretic (water pill) Primary Care Provider: Aliza Roman Referrals: Aliza Roman MD [Primary Care Provider] - Activity Restrictions/Additional Instructions: The name of the bicycle sharps are [employer] bicycle works and at [employer] Print Language: Indonesian Disposition Disposition: Home, Self Care
[2025-04-23] MEDS: HYDROcodone Bitartrate/Apap 5/325 Tablet PO (16:50)
--- OUTSIDE RECORDS SUMMARY | 2025-04-23 17:03 | XMS RPT_ITS | CCD ---
Author Organization [facility] Care Team Providers Care Language Tutor Name Role Phone ALIZA ROMAN Primary Care Physician Dr. Aliza Roman Primary Care Provider [phone] Dr. Aliza Roman Referring Provider Dr. Kenneth Gaytan Attending Provider GUICHO Gonzalez Attending Provider Dr. Bruce Victor Attending Provider [phone] Aliza Roman Primary Care Provider [phone] Dr. Aliza Roman Referring Provider Myrna RN DERMATOLOGY, RN DERMATOLOGY-C Dania Attending Provider Dr. Aliza Roman Primary Care Provider [phone] Dr. Aliza Roman Referring Provider Myrna RN DERMATOLOGY, RN DERMATOLOGY-C Dania Attending Provider [phone] GUICHO Gonzalez Attending Provider Dr. Aliza Roman Primary Care Provider [phone] Dr. Aliza Roman Referring Provider Dr. Kenneth Gaytan Attending Provider MD Denny Santos Attending Provider Denny Stevens MD Primary Care Provider [phone] Denny Santos MD Unavailable Dr. Aliza Roman Primary Care Provider [phone] Dr. Aliza Roman Referring Provider [phone] Kenneth Gaytan Attending Provider MD Denny Santos Attending Provider SIMIN HENDRIX Referring Unavailable NANCY, DENNY MICHAELS Primary Care Unavailable SIMIN HENDRIX Attending Unavailable NANCY, DENNY MICHAELS Primary Care Unavailable NANCY, DENNY MICHAELS Primary Care Unavailable TORITO DUEÑAS Attending Unavailable NANCY, DENNY MICHAELS Primary Care Unavailable TORITO DUEÑAS Referring Unavailable Dr. Aliza Roman Primary Care Provider [phone] Dr. Aliza Roman Referring Provider [phone] Myrna RN DERMATOLOGY, RN DERMATOLOGY-C Dania Attending Provider ALIZA ROMAN Primary Care Physician MARGARETTE ARELLANO-KAILA VALENTINE Attending Unavail able ALIZA ROMAN Primary Care Unavailable MARGARETTE ARELLANO-PRODUCT ANALYSTKAILA Attending Unavail able ALIZA ROMAN Primary Care Unavailable Dr. Aliza Roman MD Primary Care Provider [phone] Dr. Carlos Ibarra MD Attending Provider [phone] Dr. Carlos Ibarra MD Referring Provider Dr. Aliza Roman MD Attending Provider [phone] Aliza Roman MD Referring Provider [phone] Madhu Page DO Referring Provider [phone] Madhu Page DO Emergency Provider Dr. Aliza Roman MD Primary Care Provider Dr. Carlos Ibarra MD Attending Provider Dr. Carlos Ibarra MD Referring Provider Dr. Aliza Roman MD Attending Provider [phone] Dr. Aliza Roman MD Referring Provider [phone] Dr. Madhu Page DO Attending Provider [phone] Madhu Referring Provider Camilo GIVENS, Dr. Leung Emergency Provider Reji GONZALEZ, Dr. Mamadou Maradiaga Attending Provider Denisse GIVENS, Dr. Pereyra Referring Provider Andrea GIVENS, Dr. Arauz Emergency Provider [phone] Jessie GONZALEZ, Dr. Abrams Primary Care Provider Dr. Davonte Mendez DO Attending Provider Karan RN DERMATOLOGY-CLesvia Attending Provider Fred GONZALEZ, Dr. Gonzalez Attending Provider Fred GNOZALEZ, Dr. Gonzalez Referring Provider Jessie GONZALEZ, Dr. Abrams Primary Care Provider Jessie GONZALEZ, Dr. Abrams Referring Provider [phone] Myrna RN DERMATOLOGY-CDania Attending Provider Carlos Ibarra Referring Unavailable Carlos Ibarra Attending Unavailable Miedel, Aliza Primary Care Unavailable Miedel, Aliza Primary Care Unavailable Miedel, Aliza Attending Unavailable Miedel, Aliza Referring Unavailable Miedel, Aliza Primary Care Unavailable Madhu Page Attending Unavailable Madhu Page Referring Unavailable Miedel, Aliza Primary Care Unavailable Davonte Mendez Attending Unavailable Carlos Ibarra Referring Unavailable Miedel, Aliza Primary Care Unavailable Carlos Ibarra Attending Unavailable Carlos Ibarra Referring Unavailable Miedel, Aliza Primary Care Unavailable Carlos Ibarra Attending Unavailable Carlos Ibarra Referring Unavailable Carlos Ibarra Attending Unavailable Miedel, Aliza Primary Care Unavailable Miedel, Aliza Primary Care Unavailable Dania Norris NP Attending Unavailable Miedel, Aliza Referring Unavailable Miedel, Aliza Primary Care Unavailable Lesvia Russo Attending Unavailable Miedel, Aliza Referring Unavailable Dania Norris NP Attending Unavailable Miedel, Aliza Referring Unavailable Miedel, Aliza Primary Care Unavailable Lesvia Russo Attending Unavailable Aliza Roman Referring Unavailable Aliza Roman Primary Care Unavailable Allergies Allergy Classification Reported Allergen(s) Allergy Type Date of Onset Reaction(s) Facility DULoxetine (1 source) DULoxetine; Translations: [duloxetine] Drug Allergy Seizure (finding) [facility] (1 source) Dust Allergy to substance 2 SNEEZING, COUGHING [facility] Work Phone: (1 source) Pollen Allergy to substance 2 SNEEZING, COUGHING [facility] Work Phone: (1 source) grass Allergy to substance 2 SNEEZING, COUGHING [facility] Work Phone: (14 sources) Grass pollen; Translations: [grass pollen] Allergy to substance 2 Other [facility] Comment on above: SNEEZING, COUGHING (13 sources) house dust allergenic extract Drug Allergy 2 Other [facility] Comment on above: SNEEZING, COUGHING (13 sources) Pollen Allergy to substance 2 [facility] Comment on above: SNEEZING, COUGHING (1 source) bird dander Allergy to substance 2 Chest tightness [facility] Work Phone: (13 sources) animal dander; Translations: [animal dander] Allergy to substance 3 Chest tightness [facility] Comment on above: bird dander (6 sources) Seasonal allergy; Translations: [SEASONAL ALLERGIES] Allergy to substance 1 Other: See Comments [facility] Work Phone: (1 source) DULoxetine; Translations: [duloxetine] Drug Allergy Seizure (finding) [facility] (1 source) house dust allergenic extract Drug Allergy 5 [facility] (1 source) Pollen Drug allergy (disorder) 5 [facility] Medications Current Medications Medication Drug Class(es) Dates Sig (Normalized) Sig (Original) [id number] actuat albuterol 0.09 mg/actuat metered dose inhaler (20 sources) beta2-Adrenergic Agonist Start: 01-05-2023 Albuterol Sulfate 90 mcg/actuation HFA aerosol inhaler Active 2 NMA INHALATION EVERY 4 HOURS NEEDED as needed for Sob &/Or Wheezing 8.January 05, 2023 1:06pm Start: 01-05-2023 Albuterol Sulf ate Active 2 INH INHALATION EVERY 4 HOURS NEEDED 8.January 05, 2023 1:06pm Start: 01-05-2023 take 2.5 mg by inhal ation every four hours Albuterol Sulfate Active 2.5 MG INHALATION Q4H 180 January 05, 2023 12:06pm Start: 01-05-2023 take 2.5 mg by inhal ation every four hours Albuterol Sulfate Active 2.5 MG INHALATION Q4H 180 January 05, 2023 1:06pm Start: 01-05-2023 End: 01-05-2023 take 2.5 mg by inhalation every four hours as needed Albuterol Sulfate 2.5 mg /3 mL (0.083 %) solution for nebulization Discontinued 2.5 mg INHALATION Q4H as needed January 05, 2023 12:00am January 05, 2023 1:07pm Start: 05-07-2016 End: 01-05-2023 Albuterol Sulfate 18 GM HFA aerosol inhaler Discontinued 18 NMA IH EVERY 4 HOURS NEEDED as needed for Sob &/Or Wheezing May 07, 2016 12:00am January 05, 2023 1:07pm Start: 05-07-2016 End: 01-05-2023 Albuterol Sulfate 18 GM HFA aerosol inhaler Discontinued 18 NMA IH EVERY 4 HOURS NEEDED as needed for Sob &/Or Wheezing May 06, 2016 11:00pm January 05, 2023 12:07pm Start: 05-07-2016 End: 01-05-2023 take 18 g by inhalation every four hours as needed Albuterol Sulfate Discontinued 18 G IH EVERY 4 HOURS NEEDED May 06, 2016 11:00pm January 05, 2023 12:07pm Start: 05-07-2016 End: 01-05-2023 take 18 g by inhalation every four hours as needed Albuterol Sulfate Discontinued 18 G IH EVERY 4 HOURS NEEDED May 07, 2016 12:00am January 05, 2023 1:07pm Start: 05-07-2016 take 18 g by inhalat ion every four hours as needed Albuterol Sulfate Active 18 G IH EVERY 4 HOURS NEEDED May 07, 2016 12:00am Start: 01-23-2014 End: 01-27-2014 take 2.5 mg by inhalation every four hours as needed for wheezing Albuterol Sulfate 2.5 MG/3 ML Vial.Neb. Discontinued 2.5 mg INHALATION EVERY 4 HOURS NEEDED January 23, 2014 12:00am January 27, 2014 2:32pm Use q4 hours and PRN for wheezing Albuterol Sulfate 2.5 mg /3 mL (0.083 %) solution for nebulization (5 sources) Start: 01-05-2023 take 2.5 mg by inhalation every four hours as needed for wheezing Albuterol Sulfate 2.5 mg /3 mL (0.083 %) solution for nebulization Active 2.5 mg INHALATION Q4H as needed for shortness of breath or wheezing 180 January 05, 2023 1:06pm Start: 01-05-2023 take 2.5 mg by inhal ation every four hours as needed for wheezing Albuterol Sulfate 2.5 mg /3 mL (0.083 %) solution for nebulization Active 2.5 mg INHALATION Q4H as needed for shortness of breath or wheezing 180 January 05, 2023 12:06pm allopurinol 300 mg oral tablet (20 sources) Xanthine Oxidase Inhibitor Start: 12-19-2024 take 1 tablet by mouth twice daily Allopurinol 300 mg tablet Active 300 mg PO TWICE A DAY December 19, 2024 1:19pm Start: 05-16-2014 End: 12-19-2024 take 1 tablet by mouth once daily Allopurinol 300 MG tablet Discontinued 300 mg PO DAILY June 09, 2015 12:00am December 19, 2024 1:22pm Comment on above: Take 1 tablet by scott th once daily. Baclofen (20 sources) gamma-Aminobutyric Acid-ergic Agonist Start: 01-19-2024 BACLOFEN 20 MG TABLE T BACLOFEN 20 MG TABLET, 0 Refill(s) Start Date: 01/19/24 Status: Ordered Start: 06-25-2018 take 1 tablet by scott th every twelve hours Baclofen 20 MG tablet Active 20 mg PO Q12H June 25, 2018 12:00am Start: 06-25-2018 take 20 mg by mouth once daily Baclofen Active 20 MG PO DAILY June 25, 2018 12:00am Comment on above: Take 1 tablet by scott th every afternoon. Blood-Glucose Sensor (Freestyle Nancy 3 Plus Sensor) device (4 sources) Start: 02-06-2025 Blood-Glucose Sensor (Freestyle Nancy 3 Plus Sensor) device Active 0 .Route 2 February 06, 2025 1:26pm 1 sensor 15 q days Start: 12-19-2024 End: 02-06-2025 Blood-Glucose Sensor (Freest yle Nancy 3 Plus Sensor) device Discontinued 0 .Route 2 December 19, 2024 12:00am February 06, 2025 1:27pm 1 sensor 15 q days Start: 12-19-2024 Blood-Glucose Sensor (Freestyle Nancy 3 Plus Sensor) device Active 0 .Route 2 December 19, 2024 12:00am 1 sensor 15 q days Blood-Glucose,Rack Carrier,Cont (Freestyle Nancy 3 [place]) misc (3 sources) Start: 12-19-2024 Blood-Glucose,Rack Carrier,Cont (Freestyle Nancy 3 [place]) misc Active 0 .Route 1 December 19, 2024 12:00am As directed Budesonide-Formoterol (20 sources) Corticoste roid, beta2-Adre nergic Agonist Start: 01-23-2025 Budesonide-Formoterol (Symbicort) 160-4.5 mcg/actuation HFA aerosol inhaler Active 2 NMA INHALATION TWICE A DAY 1 January 23, 2025 12:00am administer with spacer, rinse mouth after each use Start: 01-05-2023 End: 12-19-2024 Budesonide-Formoterol (Symbi ale) 160-4.5 mcg/actuation HFA aerosol inhaler Discontinued 2 NMA INHALATION TWICE A DAY 10.2 January 05, 2023 1:06pm December 19, 2024 1:31pm Start: 01-05-2023 Budesonide-For moterol (Symbicort) 160-4.5 mcg/actuation HFA aerosol inhaler Active 2 NMA INHALATION TWICE A DAY 10.2 January 05, 2023 1:06pm Start: 01-05-2023 Budesonide-For moterol (Symbicort) 160-4.5 mcg/actuation HFA aerosol inhaler Active 2 NMA INHALATION TWICE A DAY 10.2 January 05, 2023 12:06pm Start: 01-05-2023 take 1 puff(s) by in halation twice daily Budesonide-Formoterol (Symbicort) 160-4.5 mcg/actuation HFA aerosol inhaler Active 2 PUFF INHALATION TWICE A DAY 10.2 January 05, 2023 12:06pm Start: 01-05-2023 take 1 puff(s) by in halation twice daily Budesonide-Formoterol (Symbicort) 160-4.5 mcg/actuation HFA aerosol inhaler Active 2 PUFF INHALATION TWICE A DAY 10.2 January 05, 2023 1:06pm Start: 07-08-2022 End: 01-05-2023 Budesonide-Formoterol (Symbi ale) 160-4.5 mcg/actuation HFA aerosol inhaler Discontinued 2 NMA INHALATION TWICE A DAY 10.2 July 08, 2022 1:00am January 05, 2023 1:07pm Start: 07-08-2022 End: 01-05-2023 Budesonide-Formoterol (Symbi ale) 160-4.5 mcg/actuation HFA aerosol inhaler Discontinued 2 NMA INHALATION TWICE A DAY 10.2 July 08, 2022 12:00am January 05, 2023 12:07pm Start: 07-08-2022 End: 01-05-2023 take 1 puff(s) by inhalation twice daily Budesonide-Formoterol (Symbicort) 160-4.5 mcg/actuation HFA aerosol inhaler Discontinued 2 PUFF INHALATION TWICE A DAY 10.2 July 08, 2022 12:00am January 05, 2023 12:07pm Start: 07-08-2022 End: 01-05-2023 take 1 puff(s) by inhalation twice daily Budesonide-Formoterol (Symbicort) 160-4.5 mcg/actuation HFA aerosol inhaler Discontinued 2 PUFF INHALATION TWICE A DAY 10.2 July 08, 2022 1:00am January 05, 2023 1:07pm Start: 11-07-2020 End: 07-08-2022 Budesonide-Formoterol (Symbi ale) 160-4.5 mcg/actuation HFA aerosol inhaler Discontinued 2 NMA INHALATION TWICE A DAY 1 November 07, 2020 12:00am July 08, 2022 3:03pm administer with spacer, rinse mouth after each use Start: 11-07-2020 End: 07-08-2022 Budesonide-Formoterol (Symbi ale) 160-4.5 mcg/actuation HFA aerosol inhaler Discontinued 2 NMA INHALATION TWICE A DAY 1 November 06, 2020 11:00pm July 08, 2022 2:03pm administer with spacer, rinse mouth after each use Start: 11-07-2020 End: 07-08-2022 take 1 puff(s) by mouth twice daily Budesonide-Formoterol (Symbicort) 160-4.5 mcg/actuation HFA aerosol inhaler Discontinued 2 PUFF INHALATION TWICE A DAY 1 November 06, 2020 11:00pm July 08, 2022 2:03pm administer with spacer, rinse mouth after each use Start: 11-07-2020 End: 07-08-2022 take 1 puff(s) by mouth twice daily Budesonide-Formoterol (Symbicort) 160-4.5 mcg/actuation HFA aerosol inhaler Discontinued 2 PUFF INHALATION TWICE A DAY 1 November 07, 2020 12:00am July 08, 2022 3:03pm administer with spacer, rinse mouth after each use Start: 11-07-2020 take 1 puff(s) by mo uth twice daily Budesonide-Formoterol (Symbicort) 160-4.5 mcg/actuation HFA aerosol inhaler Active 2 PUFF INHALATION TWICE A DAY 1 November 07, 2020 12:00am administer with spacer, rinse mouth after each use Start: 05-07-2016 End: 11-07-2020 Budesonide-Formoterol 1 INHA LER inhaler Discontinued 2 NMA INHALATION TWICE A DAY May 07, 2016 12:00am November 07, 2020 1:36pm Start: 05-07-2016 End: 11-07-2020 Budesonide-Formoterol 1 INHA LER inhaler Discontinued 2 NMA INHALATION TWICE A DAY May 06, 2016 11:00pm November 07, 2020 12:36pm Start: 05-07-2016 End: 11-07-2020 take 1 puff(s) by inhalation twice daily Budesonide-Formoterol Discontinued 2 PUFF INHALATION TWICE A DAY May 06, 2016 11:00pm November 07, 2020 12:36pm Start: 05-07-2016 End: 11-07-2020 take 1 puff(s) by inhalation twice daily Budesonide-Formoterol Discontinued 2 PUFF INHALATION TWICE A DAY May 07, 2016 12:00am November 07, 2020 1:36pm celecoxib 200 mg oral capsule (3 sources) Nonsteroidal Anti-inflammatory Drug Start: 12-19-2024 take 1 capsule by mouth once daily Celecoxib 200 mg capsule Active 200 mg PO DAILY December 19, 2024 12:00am colchicine 0.6 mg oral tablet (18 sources) Start: 12-02-2021 Colchicine 0.6 mg tablet Active 0.6 mg PO NEEDED December 02, 2021 12:00am Comment on above: take 1 tablet by scott th every 6 hours if needed for GOUT [place]ARE doxycycline monohydrate 100 mg oral tablet (20 sources) Tetracycline-class Drug Start: 01-19-2024 take 1 tablet by mouth twice daily doxycycline monohydrate 100 mg oral tablet TAKE 1 TABLET BY MOUTH 2 TIMES A DAY FOR 10 DAYS Start Date: 01/19/24 Status: Ordered Start: 05-02-2022 End: 01-05-2023 take 1 capsule by mouth twice daily Doxycycline Hyclate 100 mg capsule Discontinued 100 mg PO TWICE A DAY May 02, 2022 12:00am January 05, 2023 12:43pm Start: 02-14-2022 End: 02-27-2022 take 1 capsule by mouth twice daily Doxycycline Hyclate 100 mg capsule Discontinued 100 mg PO TWICE A DAY February 14, 2022 12:00am February 27, 2022 1:42pm furosemide 40 mg oral tablet (20 sources) Loop Diuretic Start: 01-19-2024 furosemide 40 mg oral tablet Dose : 40 mg = 1 tab(s), 0 Refill(s) Start Date: 01/19/24 Status: Ordered Start: 10-13-2021 take 2 tablets by mo uth twice daily Furosemide 20 MG tablet Active 40 mg PO TWICE A DAY October 13, 2021 1:54pm Start: 10-13-2021 take 40 mg by mouth twice janice y Furosemide Active 40 MG PO TWICE A DAY October 13, 2021 1:54pm Start: 01-30-2020 End: 10-13-2021 take 2 tablets by mouth once daily Furosemide 20 MG tablet Discontinued 40 mg PO DAILY 0 January 30, 2020 9:25am October 13, 2021 1:54pm Start: 01-30-2020 End: 10-13-2021 take 40 mg by mouth once daily Furosemide Discontinued 40 MG PO DAILY 0 January 30, 2020 9:25am October 13, 2021 1:54pm Start: 06-09-2015 End: 01-30-2020 take 2 tablets by mouth twice daily Furosemide 20 MG tablet Discontinued 40 mg PO TWICE A DAY June 09, 2015 12:00am January 30, 2020 9:25am Start: 06-09-2015 End: 01-30-2020 take 40 mg by mouth twice daily Furosemide Discontinue d 40 MG PO TWICE A DAY June 09, 2015 12:00am January 30, 2020 9:25am gabapentin 300 mg oral capsule (2 sources) Anti-epileptic Agent Start: 01-19-2024 gabapenti n 300 mg oral capsule Dose : 300 mg = 1 cap(s), Oral, BID, # 60 cap(s), 0 Refill(s) Start Date: 01/19/24 Status: Ordered 3 ml insulin, regular, human 500 unt/ml pen injector (4 sources) Insulin Start: 02-06-2025 Insulin Regula r Hum U-500 Conc (Humulin R U-500 (Conc) Kwikpen) 500 unit/mL (3 mL) insulin pen Active 115 U SC 3 times per day with meals February 06, 2025 1:27pm Start: 12-19-2024 End: 02-06-2025 Insulin Regular Hum U-500 Co nc (Humulin R U-500 (Conc) Kwikpen) 500 unit/mL (3 mL) insulin pen Discontinued 100 U SC 3 times per day with meals December 19, 2024 12:00am February 06, 2025 1:28pm Ipratropium (13 sources) Anticholinergic Start: 11-23-2023 Ipratropium Br omide Active 2 SPRAY INTRANASAL TWICE A DAY November 23, 2023 2:03pm Start: 07-23-2023 End: 11-23-2023 Ipratropium [place] 21 mcg ( 0.03 %) spray,non-aerosol Discontinued 2 NMA INTRANASAL TWICE A DAY July 23, 2023 1:00am November 23, 2023 2:04pm Start: 07-23-2023 End: 11-23-2023 Ipratropium [place] Disconti nued 2 SPRAY INTRANASAL TWICE A DAY July 23, 2023 1:00am November 23, 2023 2:04pm Multivitamin With Minerals (9 sources) Start: 01-28-2020 take 1 tablet by mouth once daily Multivitamin With Minerals Active 1 TABLET PO DAILY January 27, 2020 11:00pm Start: 01-28-2020 take 1 tablet by scott th once daily Multivitamin With Minerals Active 1 TABLET PO DAILY January 28, 2020 12:00am pantoprazole 40 mg delayed release oral tablet (20 sources) Proton Pump Inhibitor Start: 06-25-2018 take 1 tablet by mouth once daily Pantoprazole 40 MG tablet Active 40 mg PO DAILY June 25, 2018 12:00am Comment on above: Take 1 tablet by scott th every afternoon. potassium citrate 10 meq extended release oral tablet (12 sources) Start: 07-23-2023 take 1 tablet by mouth once daily Potassium Citrate 10 mEq (1,080 mg) tablet extended release Active 10 meq PO DAILY July 23, 2023 1:00am predniSONE 20 mg oral tablet (20 sources) Start: 01-19-2024 Deltasone 20mg tab (TAPER) Dose : 20 mg = 1 tab(s), 0 Refill(s) Start Date: 01/19/24 Status: Ordered Start: 06-09-2015 End: 05-16-2016 take 4 tablets by mouth once daily, then take 3 tablets by mouth once daily, then take 2 tablets by mouth once daily, then take 1 tablet by mouth once daily, then take 1 tablet by mouth every other day Prednisone 10 MG tablet Discontinued 10 mg PO DIRECTED 33 June 09, 2015 12:00am May 16, 2016 9:27pm Take 4 tablets daily for 3 days, then 3 daily for 3 days, then 2 daily for 3 days, then 1 a day for 3 days then 1 QOD for 3 doses. Start: 01-23-2014 End: 01-27-2014 take 3 tablets by mouth once daily Prednisone 20 MG tablet Discontinued 60 mg PO DAILY@0800 January 23, 2014 12:00am January 27, 2014 2:32pm Start: 01-23-2014 End: 01-27-2014 take 60 mg by mouth once daily Prednisone Discontinued 60 MG PO DAILY@0800 15 January 23, 2014 12:00am January 27, 2014 2:32pm rosuvastatin calcium 5 mg oral tablet (3 sources) HMG-CoA Reductase Inhibitor Start: 12-19-2024 take 1 tablet by mouth once daily Rosuvastatin 5 mg tablet Active 5 mg PO daily December 19, 2024 12:00am spacer (12 sources) Start: 01-05-2023 spacer Active 0 .ROUTE .MEDSUPPLY January 04, 2023 11:00pm As directed Start: 01-05-2023 spacer Active 0 .ROUTE .MEDSUPPLY January 05, 2023 12:00am As directed Tirzepatide (Mounjaro) 5 mg/ 0.5 mL pen injector (1 source) Start: 02-06-2025 Tirzepatide (M ounjaro) 5 mg/0.5 mL pen injector Active 5 mg SC EVERY WEEK February 06, 2025 12:00am Completed/Discontinued Medications Medication Drug Class(es) Dates Sig (Normalized) Sig (Original) 0.25 MG, 0.5 MG Dose 3 ML semaglutide 0.68 MG/ML Pen Injector [Ozempic] (2 sources) Start: 01-19-2024 inject 0.5 mg by subcutaneous injection every week Ozempic 2 mg/3 mL (0.25 mg or 0.5 mg dose) subcutaneous solution Dose : 0.5 mg =, Subcutaneous, qWeek, rotate injection sites, # 1 EA, 0 Refill(s) Start Date: 01/19/24 Status: Ordered acetaminophen 325 mg oral tablet (18 sources) Start: 04-14-2020 acetaminophen (TYLENOL) 325 mg tablet Take by mouth. 0 04/14/2020 Active Start: 04-14-2020 Acetaminophen 325 MG tablet Active 650 mg PO EVERY 6 HOURS NEEDED as needed for Pain Score 1-10/Temp > 100.7 F April 14, 2020 12:00am Start: 04-14-2020 take 650 mg by mouth every six hours as needed Acetaminophen Active 650 MG PO EVERY 6 HOURS NEEDED April 14, 2020 12:00am Comment on above: Take by mouth. acetaminophen 325 mg / HYDROcodone bitartrate 5 mg oral tablet (20 sources) Opioid Agonist Start: 12-18-2023 End: 03-17-2024 Hydrocodone-Acetaminophen 5-325 mg tablet Discontinued 1 {tbl} PO EVERY 6 HOURS December 18, 2023 12:00am March 17, 2024 8:03am Start: 12-18-2023 take 1 tablet by scott th every six hours Hydrocodone-Acetaminophen Active 1 TABLE T PO EVERY 6 HOURS December 18, 2023 12:00am Start: 12-18-2023 take 1 tablet by scott th three times daily Hydrocodone-Acetaminophen Active 1 TABLE T PO THREE TIMES A DAY December 18, 2023 12:00am Start: 01-13-2023 End: 02-04-2023 Hydrocodone-Acetaminophen 5- 325 mg tablet Discontinued 1 {tbl} PO EVERY 6 HOURS NEEDED as needed for Pain 10 01January 30, 2023 February 03, 2023 12:00am February 04, 2023 12:05am Start: 01-13-2023 End: 02-04-2023 take 1 tablet by mouth every six hours as needed Hydrocodone-Acetaminophen Discontinued 1 TABLET PO EVERY 6 HOURS NEEDED 10 01January 30, 2023 February 04, 2023 12:05am amoxicillin 500 mg / clavulanate 125 mg oral tablet (20 sources) Penicillin-class Antibacterial Start: 02-14-2022 End: 02-27-2022 Amoxicillin-Pot Clavulanate (Augmentin) 500-125 mg tablet Discontinued 1 {tbl} PO TWICE A DAY February 14, 2022 12:00am February 27, 2022 1:41pm Start: 05-16-2016 End: 05-19-2016 take 1 tablet by mouth every twelve hours Amoxicillin-Pot Clavulanate 875 MG tablet Discontinued 875 mg PO Q12H May 16, 2016 12:00am May 19, 2016 2:51pm dapagliflozin 10 mg oral tablet (20 sources) Sodium-Glucose Cotransporter 2 Inhibitor Start: 09-23-2023 take 1 tablet by mouth once FARXIGA 10 mg tablet Take 1 tablet by mouth every afternoon. 0 09/23/2023 Active Start: 01-22-2023 End: 12-23-2023 take 1 tablet by mouth once daily Dapagliflozin Propanediol (Farxiga) 5 mg tablet Discontinued 10 mg PO DAILY July 23, 2023 2:06pm December 23, 2023 5:14pm Comment on above: Take 1 tablet by scott th every afternoon. FLUoxetine 10 mg oral capsule (20 sources) Serotonin Reuptake Inhibitor Start: 0 End: take 2 capsules by mouth once daily Fluoxetine 10 mg capsule Discontinued 20 mg PO DAILY August 15, 2020 2:28pm December 19, 2024 1:31pm Start: 08-15-2020 take 20 mg by mouth once daily Fluoxetine Active 20 MG PO DAILY August 15, 2020 2:28pm Start: 01-28-2020 End: 08-15-2020 take 1 capsule by mouth once daily Fluoxetine 10 mg capsule Discontinued 10 mg PO DAILY January 28, 2020 12:00am August 15, 2020 2:28pm Start: 06-09-2015 End: 03-23-2019 take 1 capsule by mouth once daily Fluoxetine 10 MG capsule Discontinued 10 mg PO DAILY June 09, 2015 12:00am March 23, 2019 1:19pm take 1 tablet by scott once daily FLUoxetine HCl 20 mg tablet Take 20 mg by mouth once daily. 0 Active Comment on above: Take 20 mg by mouth once daily. fluticasone propionate 0.05 mg/actuat metered dose nasal spray (20 sources) Corticosteroid Start: 03-23-2019 End: 12-19-2024 Fluticasone Propionate 50 mcg/actuation spray,suspension Discontinued 2 NMA INTRANASAL DAILY November 23, 2023 2:10pm December 19, 2024 1:31pm Start: 03-23-2019 End: 11-23-2023 Fluticasone Propionate Disco ntinued 2 SPRAY INTRANASAL DAILY January 05, 2023 1:07pm November 23, 2023 2:10pm 12 hr guaiFENesin 1200 mg extended release oral tablet (20 sources) Start: 01-24-2017 End: 07-23-2023 Guaifenesin 1,200 MG tablet Discontinued 1000 mg PO TWICE A DAY as needed for Congestion January 24, 2017 6:16pm July 23, 2023 2:06pm Start: 01-24-2017 End: 07-23-2023 take 1000 mg by mouth twice daily Guaifenesin Disconti nued 1000 MG PO TWICE A DAY January 24, 2017 6:16pm July 23, 2023 2:06pm Start: 01-22-2017 End: 01-24-2017 take 1 tablet by mouth twice daily as needed for congestion Guaifenesin (Mucinex) 1,200 MG tablet Discontinued 1200 mg PO TWICE A DAY as needed for Congestion January 22, 2017 11:13pm January 24, 2017 6:16pm hydrOXYzine hydrochloride 25 mg oral tablet (14 sources) Antihistamine Start: 12-09-2018 End: 03-23-2019 take 1 tablet by mouth three to four times daily as needed Hydroxyzine Hcl 25 mg tablet Discontinued 25 mg PO 3 to 4 times per day as needed December 09, 2018 12:00am March 23, 2019 1:20pm 3 ml insulin glargine 100 unt/ml pen injector (3 sources) Insulin Analog Start: 12-19-2024 End: 12-19-2024 Insulin Glargine (Lantus Solostar U-100 Insulin) 100 unit/mL (3 mL) insulin pen Discontinued 0 - 50 U SC AT BEDTIME December 19, 2024 12:00am December 19, 2024 2:36pm 3 ml insulin lispro 100 unt/ml pen injector (3 sources) Insulin Analog Start: 12-19-2024 End: 12-19-2024 Insulin Lispro (Humalog Kwikpen Insulin) 100 unit/mL insulin pen Discontinued 40 U SC THREE TIMES A DAY December 19, 2024 12:00am December 19, 2024 2:36pm Ipratropium [place] 21 mcg (0.03 %) spray,non-aerosol (5 sources) Start: 11-23-2023 End: 12-19-2024 Ipratropium [place] 21 mcg (0.03 %) spray,non-aerosol Discontinued 2 NMA INTRANASAL TWICE A DAY November 23, 2023 2:03pm December 19, 2024 1:31pm Start: 11-23-2023 Ipratropium Br omide 21 mcg (0.03 %) spray,non-aerosol Active 2 NMA INTRANASAL TWICE A DAY November 23, 2023 2:03pm Start: 11-23-2023 Ipratropium Br omide 21 mcg (0.03 %) spray,non-aerosol Active 2 NMA INTRANASAL TWICE A DAY November 23, 2023 1:03pm levETIRAcetam 500 mg oral tablet (20 sources) Start: 10-18-2015 End: 01-23-2025 take 1 tablet by mouth twice daily Levetiracetam 500 MG tablet Discontinued 500 mg PO TWICE A DAY January 28, 2020 9:43am January 23, 2025 2:49pm levocetirizine dihydrochloride 5 mg oral tablet (14 sources) Histamine-1 Receptor Antagonist Start: 06-25-2018 End: 03-23-2019 take 1 tablet by mouth once daily Levocetirizine 5 MG tablet Discontinued 5 mg PO DAILY June 25, 2018 12:00am March 23, 2019 1:22pm 3 ml liraglutide 6 mg/ml pen injector (18 sources) GLP-1 Receptor Agonist Start: 12-02-2021 End: 12-23-2023 Liraglutide (Victoza 3-Denita) 0.6 mg/0.1 mL (18 mg/3 mL) pen injector Discontinued mL SC December 02, 2021 12:00am December 23, 2023 5:15pm Comment on above: INJECT 1.8MG SUBCUTA NEOUSLY EVERY DAY 24 hr metFORMIN hydrochloride 500 mg extended release oral tablet (20 sources) Biguanide Start: 03-23-2019 End: 01-21-2023 Metformin 500 mg tablet extended release 24 hr Discontinued 1000 mg PO TWICE A DAY March 23, 2019 1:21pm January 21, 2023 1:21pm Start: 03-23-2019 End: 01-21-2023 take 1000 mg by mouth twice daily Metformin Discontinued 1000 MG PO TWICE A DAY March 23, 2019 1:21pm January 21, 2023 1:21pm Start: 06-09-2015 End: 03-23-2019 take 1 tablet by mouth once daily Metformin 500 MG tablet Discontinued 500 mg PO DAILY June 09, 2015 12:00am March 23, 2019 1:23pm Start: 05-16-2014 End: 10-06-2023 take 1 tablet by mouth once daily metFORMIN (GLUCOPHAGE) 500 mg tablet Take 1 tablet by mouth once daily. 0 05/16/2014 10/06/2023 Discontinued Comment on above: Take 1 tablet by scott once daily. montelukast 10 mg oral tablet (20 sources) Leukotriene Receptor Antagonist Start: 4 End: 3 take 1 tablet by mouth once daily Montelukast 10 MG tablet Discontinued 10 mg PO DAILY January 26, 2016 12:00am January 05, 2023 1:07pm Comment on above: Take 1 tablet by scott once daily. Multivitamin With Minerals 1 EACH tablet (5 sources) Start: 0 End: 5 take 1 tablet by mouth once daily Multivitamin With Minerals 1 EACH tablet Discontinued 1 {tbl} PO DAILY January 28, 2020 12:00am December 19, 2024 1:31pm Start: 01-28-2020 take 1 tablet by scott th once daily Multivitamin With Minerals 1 EACH tablet Active 1 {tbl} PO DAILY January 28, 2020 12:00am Start: 01-28-2020 take 1 tablet by scott once daily Multivitamin With Minerals 1 EACH tablet Active 1 {tbl} PO DAILY January 27, 2020 11:00pm naproxen 500 mg oral tablet (20 sources) Nonsteroidal Anti-inflammatory Drug Start: 12-19-2023 End: 12-19-2024 take 1 tablet by mouth twice daily as needed for pain Naproxen (Naprosyn) 500 mg tablet Discontinued 500 mg PO TWICE A DAY as needed for pain December 19, 2023 12:00am December 19, 2024 1:31pm On Hold: Conflicting Appointment Start: 04-13-2020 End: 04-14-2020 take 1 tablet by mouth twice daily Naproxen 500 MG tablet Discontinued 500 mg PO TWICE A DAY April 13, 2020 12:00am April 14, 2020 10:26am PAIN nebivolol 10 mg oral tablet (20 sources) Start: 05-16-2014 End: 01-23-2025 take 1 tablet by mouth once daily Nebivolol 10 MG tablet Discontinued 10 mg PO DAILY June 09, 2015 12:00am January 23, 2025 2:49pm Comment on above: Take 1 tablet by scott once daily. nystatin 100 unt/mg topical powder (14 sources) Polyene Antifungal Start: 01-30-2020 End: 11-23-2023 Nystatin 1 APPLIC bottle Discontinued 1 NMA TOPICAL THREE TIMES A DAY January 30, 2020 12:00am November 23, 2023 1:47pm SKIN ISSUES Please contact the information source for Protocol details. Start: 01-30-2020 End: 11-23-2023 Nystatin Discontinued 1 APPL IC TOPICAL THREE TIMES A DAY January 30, 2020 12:00am November 23, 2023 1:47pm SKIN ISSUES oxyCODONE hydrochloride 5 mg oral tablet (14 sources) Opioid Agonist Start: 04-14-2020 End: 04-16-2020 take 1 tablet by mouth every six hours as needed for pain Oxycodone 5 MG tablet Discontinued 5 mg PO EVERY 6 HOURS NEEDED as needed for Pain Score 6-10/10 8 2 April 14, 2020 April 15, 2020 12:00am April 16, 2020 12:02am potassium chloride 10 meq extended release oral tablet (14 sources) Start: 07-14-2013 End: 09-30-2013 take 1 tablet by mouth once daily Potassium Chloride 10 MEQ tablet Discontinued 10 meq PO DAILY July 14, 2013 1:00am September 30, 2013 5:36pm potassium gluconate 2.5 meq oral tablet (18 sources) Start: 06-25-2018 Potassium Gluc wilman 2.5 mEq tab Take 1,080 mg by mouth. 0 06/25/2018 Active Start: 06-25-2018 End: 07-23-2023 Potassium 99 MG tablet Disco ntinued 1080 mg PO DAILY June 25, 2018 12:00am July 23, 2023 2:09pm Start: 06-25-2018 End: 07-23-2023 take 1080 mg by mouth once daily Potassium Discontinued 1080 MG PO DAILY June 25, 2018 12:00am July 23, 2023 2:09pm Comment on above: Take 1,080 mg by scott th. Semaglutide (5 sources) Start: 05-31-2024 End: 12-19-2024 Semaglutide (Ozempic) 1 mg/dose (4 mg/3 mL) pen injector Discontinued mg SC May 31, 2024 12:00am December 19, 2024 1:31pm Start: 05-31-2024 Semaglutide (O zempic) 1 mg/dose (4 mg/3 mL) pen injector Active mg SC May 31, 2024 12:00am Start: 05-31-2024 Semaglutide (O zempic) 1 mg/dose (4 mg/3 mL) pen injector Active mg SC May 30, 2024 11:00pm Semaglutide [Semaglutide 0.2 5 Mg Or 0.5 Mg (2 Mg/3 Ml) Subcutaneous Pen Injector] (6 sources) Start: 12-23-2023 End: 05-31-2024 Semaglutide [Semaglutide 0.2 5 Mg Or 0.5 Mg (2 Mg/3 Ml) Subcutaneous Pen Injector] (Semaglutide 0.25 Mg Or 0.5 Mg (2 Mg/3 Ml) Subcutaneous Pen ) 0.25 mg or 0.5 mg (2 mg/3 mL) pen injector Discontinued 0.5 mg SC EVERY WEEK December 23, 2023 12:00am May 31, 2024 2:00pm Start: 12-23-2023 End: 05-31-2024 Semaglutide [Semaglutide 0.2 5 Mg Or 0.5 Mg (2 Mg/3 Ml) Subcutaneous Pen Injector] (Semaglutide 0.25 Mg Or 0.5 Mg (2 Mg/3 Ml) Subcutaneous Pen ) 0.25 mg or 0.5 mg (2 mg/3 mL) pen injector Discontinued 0.5 mg SC EVERY WEEK December 22, 2023 11:00pm May 31, 2024 1:00pm Start: 12-23-2023 Semaglutide [S emaglutide 0.25 Mg Or 0.5 Mg (2 Mg/3 Ml) Subcutaneous Pen Injector] (Semaglutide 0.25 Mg Or 0.5 Mg (2 Mg/3 Ml) Subcutaneous Pen ) 0.25 mg or 0.5 mg (2 mg/3 mL) pen injector Active 0.5 MG SC EVERY WEEK December 23, 2023 12:00am SITagliptin 25 mg oral tablet (3 sources) Dipeptidyl Peptidase 4 Inhibitor Start: 12-19-2024 End: 12-19-2024 take 4 tablets by mouth once daily Sitagliptin Phosphate (Januvia) 25 mg tablet Discontinued 100 mg PO DAILY December 19, 2024 12:00am December 19, 2024 2:10pm theophylline 400 mg extended release oral capsule (14 sources) Methylxanthine Start: 01-22-2017 End: 03-23-2019 take 1 capsule by mouth twice daily Theophylline 400 MG capsule,extended release 24hr Discontinued 400 mg PO TWICE A DAY January 22, 2017 12:00am March 23, 2019 1:45pm Tirzepatide (Mounjaro) 2.5 mg/0.5 mL pen injector (3 sources) Start: 12-19-2024 End: 02-06-2025 Tirzepatide (Mounjaro) 2.5 mg/0.5 mL pen injector Discontinued 2.5 mg SC EVERY WEEK December 19, 2024 12:00am February 06, 2025 1:26pm Start: 12-19-2024 Tirzepatide (M ounjaro) 2.5 mg/0.5 mL pen injector Active 2.5 mg SC EVERY WEEK December 19, 2024 12:00am traMADol hydrochloride 50 mg oral tablet (10 sources) Opioid Agonist Start: 12-23-2023 End: 03-17-2024 take 1 tablet by mouth three times daily Tramadol 50 mg tablet Discontinued 50 mg PO THREE TIMES A DAY December 23, 2023 12:00am March 17, 2024 8:08am Start: 10-05-2023 traMADol (ULTR AM) 50 mg tablet Problems Problem Classification Problem Date Documented Date Episodic/Chronic Abdominal hernia (20 sources) Recurrent umbilical hernia; Translations: [Umbilical hernia without obstruction or gangrene] 02-19-2023 Episodic Comment on above: Incidentally noted. Small umbilical defect containing chronically incarcerated fat. Would appear to be a low risk for bowel herniation This is a 37-year-ol d male with incidentally noted right inguinal hernia. Specifically, on exam and with independent review of the patient's CT imaging this represents a indirect inguinal hernia defect. While patient is tender today on exam, he denies prior symptoms. Given this absence of symptoms and absence of bowel within the hernia, alongside patient's super morbid obesity I would recommend against proceeding for operative repair. His present BMI of 58 I believe he is at exceptionally high risk of recurrence given well-documented data to show increased risk of recurrence in individuals with BMI greater than 40. Unfortunately, patient is convinced that he would not be a candidate for bariatric surgery and would be categorically excluded based on his mental health history. I have encouraged him to continue his current plans of reducing his calorie intake through drinking and suggested he could reach out to his primary care provider regarding GLP-1 medications for possible weight loss. I have also provided him with red flag symptoms that should prompt him to seek emergent evaluation if experienced. Shared with him that such an event rate should be very low based on extrapolation of the [facility]. Acute bronchitis (14 sources) Acute bronchitis with bronchospasm; Translations: [Acute bronchitis, unspecified] 10-01-2013 Episodic Asthma (20 sources) Exacerbation of asthma; Translations: [Unspecified asthma with (acute) exacerbation] Chronic Conditions associated with dizziness or vertigo (14 sources) Vertigo; Translations: [Dizziness and giddiness] 12-09-2018 Episodic Diabetes mellitus with complications (1 source) Type 2 diabetes mellitus with hyperglycemia; Translations: [Type 2 diabetes mellitus with hyperglycemia] Onset: 5 Chronic Diabetes mellitus without complication (20 sources) Type 2 diabetes mellitus; Translations: [Type 2 diabetes mellitus without complications] Onset: 4 05-02-2022 Chronic Disorders of lipid metabolism (7 sources) Hyperlipidemia; Translations: [Hyperlipidemia, unspecified] Onset: 5 12-19-2024 Chronic E Codes: Fall (16 sources) Fall on same level from slipping; Translations: [Fall on same level from slipping, tripping and stumbling without subsequent striking against object, initial encounter] 01-21-2023 Episodic Epilepsy; convulsions (2 sources) Epilepsy 01-15-2024 Chronic Epilepsy; convulsions (4 sources) Seizure related finding; Translations: [Unspecified convulsions] 11-27-2024 Episodic Esophageal disorders (14 sources) Gastroesophageal reflux disease; Translations: [Gastro-esophageal reflux disease without esophagitis] 10-27-2020 Chronic Essential hypertension (18 sources) Benign hypertension; Translations: [Essential (primary) hypertension] Onset: 5 12-09-2018 Chronic Fever of unknown origin (14 sources) Fever; Translations: [Fever, unspecified] 02-22-2022 Episodic Gastritis and duodenitis (14 sources) Acute gastritis; Translations: [Acute gastritis without bleeding] 07-30-2019 Episodic Gout and other crystal arthropathies (20 sources) Gout; Translations: [Gout, unspecified] 01-28-2020 Chronic Lymphadenitis (14 sources) Mesenteric lymphadenitis; Translations: [Nonspecific mesenteric lymphadenitis] 01-25-2017 Episodic Mycoses (1 source) Onychomycosis; Translations: [Tinea unguium] 10-06-2023 Episodic Nervous system congenital anomalies (7 sources) Congenital hydrocephalus; Translations: [Congenital hydrocephalus, unspecified] Onset: 4 10-06-2023 Chronic Nonspecific chest pain (14 sources) Chest pain; Translations: [Chest pain, unspecified] 04-14-2020 Episodic Osteoarthritis (16 sources) 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; Translations: [Unilateral osteoarthritis resulting from hip dysplasia, left hip] Onset: 5 08-31-2023 Chronic Other aftercare (1 source) care home (current) use of insulin; Translations: [medical terminologist (current) use of insulin] Onset: 5 Episodic Other congenital anomalies (3 sources) Other specified congenital deformities of hip; Translations: [Other congenital deformity of hip (joint)] Chronic Other congenital anomalies (12 sources) Disorder of hip joint; Translations: [Other specified congenital deformities of hip] 01-21-2023 Chronic Other connective tissue disease (14 sources) Foot pain; Translations: [Pain in right foot] 04-14-2020 Episodic Other connective tissue disease (1 source) Pain of toe of left foot; Translations: [Pain in left toe(s)] 10-06-2023 Episodic Other connective tissue disease (1 source) Pain of toe of right foot; Translations: [Pain in right toe(s)] 10-06-2023 Episodic Other connective tissue disease (5 sources) Swelling of right lower limb; Translations: [Other specified soft tissue disorders] 10-28-2024 Episodic Other connective tissue disease (5 sources) Pain in calf; Translations: [Pain in right lower leg] 10-28-2024 Episodic Other connective tissue disease (1 source) Pain in right lower leg; Translations: [Pain in right lower leg] Onset: 5 Episodic Other liver diseases (6 sources) Fatty (change of) liver, not elsewhere classified; Translations: [Nonalcoholic fatty liver disease] 12-19-2024 Chronic Other liver diseases (14 sources) Elevated liver enzymes level; Translations: [Abnormal levels of other serum enzymes] 01-25-2017 Episodic Other lower respiratory disease (14 sources) Dyspnea on exertion; Translations: [Dyspnea, unspecified] 03-23-2019 Episodic Other lower respiratory disease (14 sources) Cough; Translations: [Cough] 02-22-2022 Episodic Other lower respiratory disease (15 sources) Hypoxia; Translations: [Hypoxemia] 10-27-2020 Episodic Other lower respiratory disease (1 source) Hypoxemia; Translations: [Hypoxemia] Episodic Other nervous system disorders (12 sources) Ventriculoperitoneal shunt in situ; Translations: [Presence of cerebrospinal fluid drainage device] 04-13-2020 Chronic Comment on above: 2 WEEKS AFTER Other nervous system disorders (14 sources) H/O: brain disorder; Translations: [Personal history of other diseases of the nervous system and sense organs] 12-09-2018 Episodic Other nervous system disorders (3 sources) Personal history of other diseases of the nervous system and sense organs; Translations: [Personal history of other disorders of nervous system and sense organs] Episodic Other non-traumatic joint disorders (15 sources) Hip pain; Translations: [Pain in unspecified hip] 12-02-2021 Episodic Other non-traumatic joint disorders (5 sources) Pain in unspecified hip; Translations: [Pain in joint, pelvic region and thigh] 08-31-2023 Episodic Other non-traumatic joint disorders (1 source) Pain in right hip; Translations: [Pain in right hip] Onset: 5 Episodic Other nutritional; endocrine; and metabolic disorders (20 sources) Morbid obesity; Translations: [Obesity, unspecified] Onset: 4 04-13-2020 Chronic Other nutritional; endocrine; and metabolic disorders (15 sources) Alveolar hypoventilation; Translations: [Morbid (severe) obesity with alveolar hypoventilation] 10-17-2021 Chronic Comment on above: BiPAP 24/18 centimet ers of water Other nutritional; endocrine; and metabolic disorders (9 sources) Morbid (severe) obesity with alveolar hypoventilation; Translations: [Obesity hypoventilation syndrome] Chronic Other nutritional; endocrine; and metabolic disorders (8 sources) Obesity, unspecified; Translations: [Obesity, unspecified] Chronic Other nutritional; endocrine; and metabolic disorders (6 sources) Obesity; Translations: [Obesity, unspecified] 12-19-2024 Chronic Other skin disorders (1 source) Foot callus; Translations: [Corns and callosities] 10-06-2023 Episodic Paralysis (2 sources) Cerebral palsy, unspecified; Translations: [Infantile cerebral palsy, unspecified] 01-21-2023 Chronic Residual codes; unclassified (14 sources) Obstructive sleep apnea syndrome; Translations: [Obstructive sleep apnea (adult) (pediatric)] 12-09-2018 Chronic Residual codes; unclassified (3 sources) Pain; Translations: [Pain, unspecified] 10-06-2023 Episodic Residual codes; unclassified (1 source) Pain, unspecified; Translations: [Pain] Onset: Episodic Residual codes; unclassified (4 sources) Edema of lower extremity; Translations: [Localized edema] 11-27-2024 Episodic Residual codes; unclassified (1 source) Edema, unspecified; Translations: [Edema, unspecified] Onset: Episodic Skin and subcutaneous tissue infections (13 sources) Cellulitis; Translations: [Cellulitis, unspecified] 2022 Episodic Spondylosis; intervertebral disc disorders; other back problems (20 sources) Backache; Translations: [Dorsalgia, unspecified] 12-05-2023 Episodic Sprains and strains (14 sources) Lower back injury; Translations: [Strain of muscle, fascia and tendon of lower back, initial encounter] 06-03-2019 Episodic Superficial injury; contusion (12 sources) Contusion of hip; Translations: [Contusion of left hip, initial encounter] 01-21-2023 Episodic Results Test Name Value Interpretation Reference Range Facility Endocrinology Visit Reporton 02-06-2025 Endocrinology Visit Report [facility] [address] [place] [address] OFFICE VISIT Date of Service: 02/06/25 MR#: [id number] Acct: [id number] Name: LORENDONNA Mariana Rep #: [id number] : 1985 Provider: ROBERT munoz Age/Sex: 39/M Location[place] [facility] [place]: Signed Intake Vital Signs 12/19/24 13:26 01/23/25 08:20 02/06/25 13:03 Height 5 ft 4 in 5 ft 4 in 5 ft 4 in Weight: 352 lb 356 lb BMI 60.4 61.1 BP 118/70 140/85 H Blood Pressure Location Rt radial Lt brachial Position Sitting Sitting Respiration 22 H Pulse 84 85 Pulse Source NIBP Monitor Temp 97.8 F Pulse Oximetry (%) 95 93 Oxygen Delivery Method nasal canula room air Oxygen Flow Rate (L/min) 2 Intake Visit Reasons: 7 Wk FU Chief Complaint: f/u diabetes [employer] Manager Required: No Accompanied by: Is patient in pain?: Yes (Lt Hip) Pain scale (1-10): 5 Allergies animal dander Allergy (Verified 02/06/25 13:06) Chest tightness grass pollen Allergy (Verified 02/06/25 13:06) Other house dust Allergy (Verified 02/06/25 13:06) Other pollen extracts Allergy (Verified 02/06/25 13:06) Other Medications ???Medication ???Instructions ???Recorded ???Confirmed ???Type baclofen 20 mg tablet 20 mg PO Q12H muscle spasms 02/06/25 History pantoprazole 40 mg tablet,delayed 40 mg PO DAILY gi 06/25/18 History release acetaminophen 325 mg tablet 650 mg (2 x 325 mg) PO Q6H PRN PRN 04/14/20 02/06/25 Rx Pain Score 1-10/Temp > 100.7 F furosemide 20 mg tablet 40 mg PO BID diuretic 10/13/21 History colchicine 0.6 mg tablet 0.6 mg PO PRN gout 12/02/21 History albuterol sulfate 2.5 mg/3 mL 2.5 mg (3 mL) inhalation Q4H PRN 0 01/05/23 02/06/25 Rx (0.083 %) solution for nebulization shortness of breath or wheezing #180 mL albuterol sulfate 90 mcg/actuation 2 inh inhalation Q4H PRN PRN Sob 01/05/23 02/06/25 Rx aerosol inhaler /Or Wheezing #8.5 grams montelukast 10 mg tablet 10 mg PO DAILY allergies #90 tabs 01/05/23 02/06/25 Rx spacer #1 ea 01/05/23 02/06/25 Rx potassium citrate 10 mEq (1,080 10 meq PO DAILY 07/23/23 02/06/25 History mg) tablet,extended release allopurinol 300 mg tablet 300 mg PO BID gout 12/19/24 History 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,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, cont #1 ea 12/19/24 02/06/25 Rx (FreeStyle Nancy 3 [place]) celecoxib 200 mg capsule 200 mg PO DAILY 12/19/24 02/06/25 History rosuvastatin 5 mg tablet 5 mg PO QDAY #30 tabs 12/19/24 Rx budesonide-formoterol HFA 160 2 inh inhalation BID #1 ea 5 02/06/25 Rx mcg-4.5 mcg/actuation aerosol inhaler (Symbicort) levetiracetam 500 mg tablet 500 mg PO BID seizures 01/23/25 History nebivolol 10 mg tablet 10 mg PO DAILY heart 01/23/2501/22 History 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 sensor (FreeStyle #2 ea 02/06/25 02/06/25 Rx Nancy 3 Plus Sensor device) insulin regular hum U-500 conc 500 115 unit (0.23 mL) subcut TIDWME AL 02/06/25 02/06/25 Rx unit/mL(3 mL) subcut pen (Humulin #18 mL R U-500 (Conc) Insulin Kwikpen) tirzepatide 5 mg/0.5 mL 5 mg (0.5 mL) subcut QWEEK #2 mL 0 02/06/25 02/06/25 Rx subcutaneous pen injector (Ean) [facility] Medical History ROBERT treated with BiPAP Cerebral palsy Anxiety Chronic cough Diabetes Non-smoker History of echocardiogram History of stress test 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 Seizure disorder Depression Hypertension History of bronchitis History of pneumonia GERD (gastroesophageal reflux disease) Chest pain Vertigo Super obesity Bronchial asthma Gout Type II diabetes mellitus History of cerebral palsy Obstructive sleep apnea Benign hypertension Surgical History H/O hernia repair H/O eye surgery S/P ENGINEERING ILLUSTRATOR shunt Family History Father Chronic a-fib CVA (cerebral vascular accident) Mother ROBERT (obstructive sleep apnea) Breast cancer Grandfather Cancer bladder Other Diabetes Hypertension Thyroid disorder Social History Smoking Status: Never smoker HPI HPI Chief Complaint: f/u diabetes Details: DONNA RODRIGES, is a 39 M who presents to the office today for evaluation and management of diabetes. GMI today is 7.3%, improved significantly from A1C on 12/19/24 at 9.6%. He has gained 8 lbs since that time. Currently taking Mounjaro 2.5 mg qweek- tolerating well, and U500 50 u with low carb meals, 100 u with high carb meals. CGM tracings reviewed in detail with patient- he is having post meal elevations. He denies any significan (more content not included)... Normal [facility] Pulmonary Visit Reporton Pulmonary Visit Report [facility] of [address] [place] [address] OFFICE VISIT Date of Service: 01/23/25 MR#: [id number] Acct: [id number] Name: DNONA RODRIGES Rep #: [id number] : 1985 Provider: ROBERT Norris Age/Sex: 39/M [facility] Status: Signed Assessment and Plan Assessment and Plan (1) Obesity hypoventilation syndrome: Status: Chronic Comment: BiPAP 24/18 centimeters of water Plan: Stable, he is using and benefiting from Pap therapy. No indication for titration study at this time. Contact the office for any new or worsening symptoms in the meantime. Follow-up in 6 months. (2) Bronchial asthma: Status: Chronic Qualifiers: Asthma severity: moderate Asthma complication type: uncomplicated Asthma persistence: persistent Qualified Code(s): J45.40 - Moderate persistent asthma, uncomplicated Plan: Stable, no signs of exacerbation of asthma today. No change in maintenance medications, symptomatically controlled with the use of Symbicort and Singulair. No additional testing at this time. Contact the office with any signs of new or worsening symptoms. Follow-up in 6 months. (3) Super obesity: Status: Chronic Plan: Complicates exam, plan, care and prognosis. Continue to encourage healthy weight loss. (4) Hypoxia: Status: Chronic Plan: The patient is using and benefiting from oxygen. Continue to utilize to maintain a saturation of 89-92%. Follow-up in 6 months. Medications: New budesonide-formoterol 160-4.5 mcg/actuation (Symbicort) administer with spacer, rinse mouth after each use 2 inhalations inhalation BID 1 ea 11RF Plan Details Additional Comments: This note was generated with [employer] dictation software. It may contain incorrect words, spelling, and punctuation that were not noted in checking the note before signing. Follow Up: 6 Months HPI HPI Comments Details: This patient presents to the office today for follow-up of his asthma and obesity hypoventilation syndrome. He is ambulatory with the use of a wheeled walker, currently on supplemental oxygen and accompanied today by his . He has not recently been seen in the ED or urgent care for any respiratory illness. He reports an ED visit secondary to a fall earlier this year. He has not required any antibiotics or prednisone for any breathing problems. He is compliant with use of Symbicort 2 puffs twice daily. He does report rinsing his mouth out after each use. He denies any medication side effect such as sore throat or thrush. He is compliant with Flonase and Singulair daily. He has not recently needed to use his albuterol rescue inhaler. He does have shortness of breath on exertion. He denies any cough, sputum production or hemoptysis. He denies any wheezing, chest tightness, chest pain or palpitations. He has not had any fever, chills or body aches. He continues to struggle with hip pain. He is currently under the care of pain management. He is compliant with Lasix 40 mg twice daily as prescribed. He admits that if he is away from home frequently for doctors office visits he is not as compliant with the Lasix. He is also compliant with supplemental oxygen, using 2 L/min on exertion. He has been working with an cloth handler for weight loss. Recently started Mounjaro. He reports that he failed Ozempic. He wakes up feeling rested and refreshed with use of his PAP device. He is not having difficulty with nocturia or dry mouth. He is experiencing mask leaks, which he attributes to the fact that he is only receiving 3 headgear's per year. He has previously requested to have an order to dispense a new headgear every 2 months. According to our documentation, we accommodated this request back in September. He is not requiring naps. He denies nodding off to sleep unintentionally. Compliance report for the past 30 days shows 100% compliance with an average use of 9 hours and 40 minutes per night. Current setting is BiPAP 24/18 cm of water with a residual AHI 1.6 events per hour. Leaks do appear to be an issue. Intake Vital Signs 12/07/24 08:02 01/23/25 08:20 Height 5 ft 4 in 5 ft 4 in Weight: 352 lb BMI 60.4 BP 118/70 Blood Pressure Location Rt radial Position Sitting Respiration 22 H Pulse 84 Pulse Source NIBP Temp 97.8 F Temperature Source Temporal Artery Pulse Oximetry (%) 95 Oxygen Delivery Method nasal canula Oxygen Flow Rate (L/min) 2 Intake Visit Reasons: 6 M FU Chief Complaint: establish care- diabetes DME Vendor: Rodríguez Accompanied by: Is patient in pain?: No Allergies animal dander Allergy (Verified 01/23/25 14:46) Chest tightness grass pollen Allergy (Verified 01/23/25 14:46) Other house dust Allergy (Verified 01/23/25 14:46) Other pollen extracts Allergy (Verif (more content not included)... Normal [facility] Fluoro Guided Needle Placeme nton 01-09-2025 Fluoro Guided Needle Placement [facility] Imaging Services [address] [place], [place] [id number] Fluoro Guided Needle Placement MR#: [id number] Acct: [id number] Name: DONNA RODRIGES Rep #: [id number] : 1985 M 39 From: Donaldo powell MD PCP: Dr. Aliza Roman MD Status: [facility] Study: Fluoro Guided Needle Placement Date of Exam: 0 01/09/25 Exam# [id number] Ordering Dr: Carlos Ibarra MD PROCEDURE: FLUORO GUIDED NEEDLE PLACEMENT 01/09/2025 REASON FOR EXAM: INJECTION LT HIP TECHNIQUE: Intraoperative fluoroscopic services provided for left hip injection. 8.4 seconds of fluoroscopy. 2.99 mGy. 3 images were obtained. COMPARISON: None FINDINGS: Intraoperative fluoroscopic services provided for left hip injection. RAD/Fluoro Guided Needle Placement IMPRESSION: Intraoperative fluoroscopic services provided for left hip injection. Reading Location: [place] [address] CC: Dr. Aliza Roman MD; Dr. Carlos Ibarra MD Mandarin Teacher: Signed [facility] MR/POSTOP.ANE 01-09-2025 [facility] Medical Records Department [address] [place] [address] Anesthesia Postop Eval I 01/09/2559 MR#: [id number] Acct: [id number] Name: DONNA RODRIGES Rep #: [id number] : 1985 39 From: Ike Sanchez CRNA PCP: Dr. Aliza Roman MD Status:[facility] Y Race: C Location: [facility] Anesthesia: Postop Eval I Current Vital Signs Temperature: 98 F Pulse Rate: 85 Blood Pressure: 154/87 Respiratory Rate: 16 Pulse Ox: 98 Oxygen Delivery Method: Room Air Assessment Airway patent: Yes Spontaneous unlabored respirations: Yes Mental status: Awake and Calm nausea: No Vomiting: No Anesthesia Complication: No Fluid Hydration Crystalloid volume administer (ml): 200 Total IV fluid infused: 200 Progress Note Anesthesia document: Postop Eval 1 completed: Yes 01/09/25 09 Date Ike Sanchez CRNA Cosigner Signature: Date CC: Signed [facility] MR/[id number] 01-09-2025 MR/POST[address] Medical Records Department [address] [place] [address] Anesthesia Postop Eval II 01/09/25908 MR#: [id number] Acct: [id number] Name: DONNA RODRIGES Rep #: [id number] : 1985 39 From: Sridhar Cardozo MD PCP: Dr. Aliza Roman MD Status:[facility] Y Race: C Location: [facility] Anesthesia Postop Eval I Sum Postop Eval Completion status Anesthesia document: Postop Eval 1 completed: Yes Anesthesia Postop Eval I Summary Anesthesia Postop Eval I Summary: Anesthesia Postop Eval I: Assessment Summary Airway patent Yes 01/09/25 09:00 GAS PLANT [email or web address] Spontaneous unlabored Yes 01/09/25 09:00 GAS PLANT [email or web address].[email or web address] respirations Mental status Awake,Calm 01/09/25 09:00 GAS PLANT OPERATOR.[email or web address] nausea No 01/09/25 09:00 GAS PLANT [email or web address].[email or web address] Vomiting No 01/09/25 09:00 GAS PLANT OPERATOR.[email or web address] Anesthesia Postop Eval I: Fluid Summary Crystalloid volume administer 200 01/09/25 09:00 GAS PLANT [email or web address].[email or web address] (ml) Colloids volume administered ( ml) Blood Product volume administered (ml) Total IV fluid infused 200 01/09/25 09:00 GAS PLANT [email or web address].[email or web address] Anesthesia Postop Eval I: Summary Notes Anesthesia Complication No 01/09/25 09:00 GAS PLANT [email or web address].JBLOU Anesthesia Complication Comment: Post-operative progress note Anesthesia: Postop Eval II Evaluation Mental status: Awake Pain Level: 2 nausea: No Vomiting: No 01/09/25908 Date Sridhar Cardozo MD Cosigner Signature: Date CC: Signed Normal [facility] Operative Reporton 5 Operative Report [facility] Medical Records Department [address] [place] [address] Operative Report 01/09/25823 MR#: [id number] Acct: [id number] Name: DONNA RODRIGES Rep #: [id number] : 1985 39 From: Carlos Ibarra MD PCP: Dr. Aliza Roman MD Status:REG [facility] Location: [place] [address] Operative Report (Standard) Operative Information Date of Procedure: 01/09/25 Pre-Operative Diagnosis: 1 Post-Operative Diagnosis: 1 Surgery/Procedure Performed: 1 rug repairer: No Type of Anesthesia: Local MAC RN Documented Start/Stop Times: Operation Date: 01/09/25 08:15 Case Time Into Pre-Op 01/09/25 06:28 Out of Pre-Op 01/09/25 08:04 Anesthesia Start 01/09/25 08:07 Into Room 01/09/25 08:07 Procedure Start 01/09/25 08:17 Procedure End 01/09/25 08:18 Anesthesia End 01/09/25 08:21 Out of Room 01/09/25 08:21 Procedure Start Time: 08:24 Procedure Stop Time: 08:24 Select all DRAINS/GRAFTS/IMPLANTS that apply: None Estimated Blood Loss: 1 Specimen collected: No Description of surgery: PREOPERATIVE DIAGNOSIS: Osteoarthritis of the left hip POSTOPERATIVE DIAGNOSIS: Osteoarthritis of the left hip PROCEDURE PERFORMED: Left hip intraarticular steroid injection under fluoroscopy guidance. ANESTHESIA: MAC BLOOD LOSS: Minimal. COMPLICATIONS: None. DESCRIPTION OF PROCEDURE: History and physical of today was reviewed. Risks and benefits of the procedure were explained. The patient understood and agreed to proceed. Informed consent was obtained. IV inserted per routine protocol. The patient was taken to the operating room and placed in the supine position. The left hip area was prepped and draped in a sterile fashion using iodine x3. Under fluoroscopy guidance on AP view, the left hip joint was visualized. The skin and subcutaneous tissue was anesthetized with approximately 3 mL of 1% lidocaine using a 25-gauge regular needle approximately 3 cm cephalad to the left greater trochanter. Under direct visualization with fluoroscopy on an AP view, using a 22-gauge 5-inch spinal needle, the needle was advanced via the skin using the lateral approach. The tip of the needle was maneuvered and directed towards the superiormost aspect of the hip joint. Once the tip of the needle was at the vicinity of the joint, after negative aspiration for blood and positive aspiration of synovial fluid, a total of 1 mL of contrast was injected to confirm correct placement of the needle as well as halo spread around the hip joint. After repeated negative aspiration for blood and confirmation on AP as well as oblique view, a total of 10 mL of preservative-free 0.25% Marcaine with 80 mg of Depo-Medrol was injected easily. The needle was then removed intact. The patient experienced no sign or symptoms of intrathecal or intravascular injection. The patient experienced no paresthesia. The procedure was completed without any apparent difficulty or any complications. The patient appeared to tolerate it well. ASSESSMENT AND PLAN: This is a 39-year-old male with osteoarthritis of the left hip status post left hip intra-articular steroid injection under fluoroscopic guidance, patient will continue his current medications, patient will follow up in approximately 2 weeks for reevaluation. Surgical Findings: 1 Complications Complications: No Admit VTE Documentation VTE Present on Admission: No VTE Mechan Device Prophylaxis: None VTE Pharm Prophylaxis ordered?: No 01/09/25 0825 Cosigner Signature (if applicable): CC: Dr. Aliza Roman MD; Dr. Carlos Ibarra MD Signed Normal [facility] Endocrinology Visit Reporton 12-19-2024 Endocrinology Visit Report [facility] [address] [place] [address] OFFICE VISIT Date of Service: 12/19/24 MR#: [id number] Acct: [id number] Name: DONNA RODRIGES Rep #: [id number] : 1985 Provider: ROBERT munoz Age/Sex: 39/M [facility] Status: Signed Intake Vital Signs 11/27/24 11:01 12/19/24 13:26 Height 5 ft 4 in 5 ft 4 in Weight: 348 lb BMI 59.7 BP 141/82 H Blood Pressure Location Lt brachial Position Sitting Pulse 81 Pulse Source Monitor Pulse Oximetry (%) 93 Oxygen Delivery Method room air Intake Visit Reasons: Diabetes Chief Complaint: establish care- diabetes Allergies animal dander Allergy (Verified 12/19/24 13:34) Chest tightness grass pollen Allergy (Verified 12/19/24 13:34) Other house dust Allergy (Verified 12/19/24 13:34) Other pollen extracts Allergy (Verified 12/19/24 13:34) Other Medications ???Medication ???Instructions ???Recorded ???Confirmed ???Type nebivolol 10 mg tablet 10 mg PO DAILY heart 06/09/1511/23 History baclofen 20 mg tablet 20 mg PO Q12H muscle spasms 12/19/24 History pantoprazole 40 mg tablet,delayed 40 mg PO DAILY gi 06/25/18 History release levetiracetam 500 mg tablet 500 mg PO BID seizures 01/28/20 History acetaminophen 325 mg tablet 650 mg (2 x 325 mg) PO Q6H PRN PRN 04/14/20 12/19/24 Rx Pain Score 1-10/Temp > 100.7 F furosemide 20 mg tablet 40 mg PO BID diuretic 10/13/21 History colchicine 0.6 mg tablet 0.6 mg PO PRN gout 12/02/21 History albuterol sulfate 2.5 mg/3 mL 2.5 mg (3 mL) inhalation Q4H PRN 0 01/05/23 12/19/24 Rx (0.083 %) solution for nebulization shortness of breath or wheezing #180 mL albuterol sulfate 90 mcg/actuation 2 inh inhalation Q4H PRN PRN Sob 01/05/23 12/19/24 Rx aerosol inhaler /Or Wheezing #8.5 grams montelukast 10 mg tablet 10 mg PO DAILY allergies #90 tabs 01/05/23 12/19/24 Rx spacer #1 ea 01/05/23 05/31/24 Rx potassium citrate 10 mEq (1,080 10 meq PO DAILY 07/23/23 12/19/24 History mg) tablet,extended release allopurinol 300 mg tablet 300 mg PO BID gout 12/19/24 History 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 meter,continuous #1 ea 12/19/24 12/19/24 Rx (FreeStyle Nancy 3 [place]) 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 sensor (FreeStyle #2 ea 12/19/24 12/19/24 Rx Nancy 3 Plus Sensor device) celecoxib 200 mg capsule 200 mg PO DAILY 12/19/24 12/19/24 History insulin regular hum U-500 conc 500 100 unit (0.2 mL) subcut TIDWMEA L 12/19/24 12/19/24 Rx unit/mL(3 mL) subcut pen (Humulin #18 mL R U-500 (Conc) Insulin Kwikpen) rosuvastatin 5 mg tablet 5 mg PO QDAY #30 tabs 12/19/24 Rx tirzepatide 2.5 mg/0.5 mL 2.5 mg (0.5 mL) subcut QWEEK #2 mL 12/19/24 12/19/24 Rx subcutaneous pen injector (Mounjaro) [facility] Medical History ROBERT treated with BiPAP Cerebral palsy Anxiety Chronic cough Diabetes Non-smoker History of echocardiogram History of stress test 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 Seizure disorder Depression Hypertension History of bronchitis History of pneumonia GERD (gastroesophageal reflux disease) Chest pain Vertigo Super obesity Bronchial asthma Gout Type II diabetes mellitus History of cerebral palsy Obstructive sleep apnea Benign hypertension Surgical History H/O hernia repair H/O eye surgery S/P ENGINEERING ILLUSTRATOR shunt Family History (Updated 12/19/24 @ 13:25 by Isaias Dumont RN) Father Chronic a-fib CVA (cerebral vascular accident) Mother ROBERT (obstructive sleep apnea) Breast cancer Grandfather Cancer bladder Other Diabetes Hypertension Thyroid disorder Social History Smoking Status: Never smoker HPI HPI Chief Complaint: establish care- diabetes Details: DONNA RODRIGES, is a 39 M who presents to the office today for evaluation and management of diabetes. Referred by PCP for uncontrolled blood sugars. He was diagnosed in routine labs approximately 4+ years ago. + family history. He denies any known complications of diabetes. A1C today is 9.6%, improved somewhat from 09/23/24 at 10.8%. Currently taking Januvia 100 mg once daily, Lantus 50 u once daily, and Humalog 45 u TIDCM unless he is not having bread with his meal. Reports typical fasting blood sugar is 250. He denies any recent blood sugar <100. Initially he states that he is mindful of his diet; however, at the end of the appointment he was more forthcoming with his dietary choices. His diet contains a large amount of processed carbohydrates. Unfortunately, he is on a fixed income an (more content not included)... Normal [facility] - Hematology and Cell countsOrdered By: Lesvia Russo on 12-19-2024 HbA1c (Bld) [Mass fraction] 9.6 % High 4.2-6.3 [facility] 12 Lead EKGon 11-27-2024 12 [address] [facility] Cardiovascular Services [address] [place] [address] 12 Lead EKG 11/27/24 1148 MR#: [id number] Acct: [id number] Name: DONNA RODRIEGS Rep #: [id number] : 1985 39 From: Bruce Victor MD Attending Dr: Status: DEP ER Ordering Dr: Krystina Hernández Date: 11/27/24 Location: ED Sex: M C Admitted: Test Reason : FALL Blood Pressure : */* mmHG Vent. Rate : 77 BPM Atrial Rate : 77 BPM P-R Int : 158 ms QRS Dur : 150 ms QT Int : 424 ms P-R-T Axes : 53 91 -11 degrees QTcB Int : 479 ms Normal sinus rhythm Right bundle branch block T wave abnormality, consider inferior ischemia Abnormal ECG Confirmed by BRUCE VICTOR MD ([id number]), movie editor CATHERINE PATTERSON ([id number]) on 11/28/2024 9:15:43 AM Referred By: Confirmed By: BRUCE VICTOR MD 11/28/24 0915 Date Bruce Victor MD CC: Dr. Aliza Roman MD; Dr. Davonte Mendez DO; GUICHO Jarrell Signed Normal [facility] Absolute lymphocyte countOrd ered By: Krystina Hernández on 11-27-2024 Lymphocytes Auto (Unsp spec) [#/Vol] 1.95 10*3/uL 0.83-4.51 [facility] Absolute neutrophil countOrd ered By: Krystina Hernández on 11-27-2024 Neutrophils (Bld) [#/Vol] 4.9 10*3/uL 2.0-7.7 [facility] Anion gap in Serum or Plasma Ordered By: Krystina Hernández on 11-27-2024 Anion gap [Moles/Vol] 14 mmol/L 5-15 [facility] Automated lymphocyte count a s percentage of total leukocytesOrdered By: Krystina Hernández on 11-27-2024 Lymphocytes/100 WBC Auto (Unsp spec) 25.6 % [facility] BUN/creatinine ratioOrdered By: Krystina Hernández on 11-27-2024 Urea nitrogen/Creatinine [Mass ratio] 26.2 mg/mg High 06-12 [facility] Basic Metabolic Profile (BMP )on 11-27-2024 BUN/CRE 26.2 RATIO High 06-12 [facility] Comment on above: Performed By: #### L 500.2500, L503.7505 ####[facility] [address] [place], [address] Calcium [Mass/Vol] 9.2 mg/dL Normal 7.6-11.[address] [facility] Comment on above: Performed By: #### L 500.2500, L503.7505 ####[facility] [address] [place], [address] Chloride [Moles/Vol] 100 mmol/L Normal 98-108 [facility] Comment on above: Performed By: #### L 500.2500, L503.7505 ####[facility] [address] [place], [address] CO2 [Moles/Vol] 24.1 mmol/L Normal 21.0-32.0 [facility] Comment on above: Performed By: #### L 500.2500, L503.7505 ####[facility] [address] [place], [address] Creatinine [Mass/Vol] 0.61 mg/dL Low 0.70-1.20 [facility] Comment on above: Performed By: #### L 500.2500, L503.7505 ####[facility] [address] [place], [address] ECRCL 227.50 ml/min Normal 50-250 [facility] Comment on above: Performed By: #### L 500.2500, L503.7505 ####[facility] [address] [place], [address] GAP 14 Normal 5-15 [facility] Comment on above: Performed By: #### L 500.2500, L503.7505 ####[facility] [address] [place], [address] GFR/1.73 sq M.predicted among non-blacks MDRD (S/P/Bld) [Vol rate/Area] 125 mL/min/{1.73_m2} Normal >60 [facility] Comment on above: Result Comment: mL/m in/1.73m2 CKD-EPI Creatinine Equation (2020) Performed By: #### L 500.2500, L503.7505 ####[facility] [address] [place], [address] Glucose [Mass/Vol] 303 mg/dL High 70-[address] [facility] Comment on above: Performed By: #### L 500.2500, L503.7505 ####[facility] [address] [place], [address] Potassium [Moles/Vol] 3.9 mmol/L Normal 3.3-5.1 [facility] Comment on above: Performed By: #### L 500.2500, L503.7505 ####[facility] [address] [place], [address] Sodium [Moles/Vol] 138 mmol/L Normal 133-[address] [facility] Comment on above: Performed By: #### L 500.2500, L503.7505 ####[facility] [address] [place], [place], [address] Urea nitrogen [Mass/Vol] 16 mg/dL Normal 4-19 [facility] Comment on above: Performed By: #### L 500.2500, L503.7505 ####[facility] [address] [place], [address] Basophil percentageOrdered B y: Krystina Hernández on 11-27-2024 Basophils/100 WBC (Bld) 0.7 % 0-1 [facility] Brain/Head without Contrasto n 11-27-2024 Brain/Head without Contrast [facility] Imaging Services [address] [place], [place] [address] Brain/Head without Contrast MR#: [id number] Acct: [id number] Name: DONNA RODRIGES Rep #: [id number] : 1985 M 39 From: Asif [place] DO PCP: Dr. Aliza Roman MD Status: REG ER Study: Brain/Head without Contrast Date of Exam: 02/15 Exam# [id number] Ordering Dr: Krystina Hernández PROCEDURE: BRAIN/HEAD WITHOUT CONTRAST 11/27/2024 REASON FOR EXAM: HEAD INJURY, POSSIBLE SEIZURE ENGINEERING ILLUSTRATOR shunt surgery. History of seizures TECHNIQUE: Head CT without intravenous contrast. Coronal and Sagittal reconstruction series were provided. One or more dose reduction techniques were used (e.g., Automated exposure control, adjustment of the mA and/or kV according to patient size, use of iterative reconstruction technique. RADIATION DOSE SUMMARY: CTDlvol: 44.99 mGy DLP: 796.11 mGycm COMPARISON: None. FINDINGS: Brain: Right parietal ENGINEERING ILLUSTRATOR shunt tube appears satisfactorily positioned. No ventriculomegaly. No mass, mass effect or midline shift. No intra-axial or extra-axial hemorrhage. CSF Spaces: Again ENGINEERING ILLUSTRATOR shunt tube in place. Ventricles and sulci are normal in size. Sinuses/Mastoids: Mucous retention cyst in the base of the left maxillary sinus. Mastoid air cells and remaining sinuses are clear. Bones: Unremarkable. CT/Brain/Head without Contrast IMPRESSION: No acute process detected. Reading [facility] CC: Dr. Aliza Roman MD; GUICHO Jarrell Mandarin Teacher: Signed Normal [facility] CBC W/Diff, Automatedon 04-0 Absolute Lymph 1.95 X10 3/uL Normal 0.83-4.51 [facility] Comment on above: Performed By: #### L 100.0100 #### [facility] [address] [place], [address] Absolute Neut 4.9 X10 3/uL Normal 2.0-7.7 [facility] Comment on above: Performed By: #### L 100.0100 #### [facility] [address] [place], [address] Basophils/100 WBC (Bld) 0.7 % Normal 0-1 [facility] Comment on above: Performed By: #### L 100.0100 #### [facility] [address] [place], [address] Eosinophils/100 WBC (Bld) 2.6 % Normal 0-5 [facility] Comment on above: Performed By: #### L 100.0100 #### [facility] [address] [place], [address] Erythrocyte distribution width (RBC) [Ratio] 15.4 % High 11.6-14.6 [facility] Comment on above: Performed By: #### L 100.0100 #### [facility] [address] [place], [address] Hematocrit (Bld) [Volume fraction] 45.3 % Normal 40-54 [facility] Comment on above: Performed By: #### L 100.0100 #### [facility] [address] [place], [address] Hemoglobin (Bld) [Mass/Vol] 15.1 g/dL Normal 13.0-16.5 [facility] Comment on above: Performed By: #### L 100.0100 #### [facility] [address] [place], [address] IG% 1.300 High 0.0-0.9 [facility] Comment on above: Result Comment: IG% - Immature Granulocytes (promyelocytes, myelocytes and metamyelocytes) > 1% indicates that a LEFT SHIFT is Present. Performed By: #### L 100.0100 #### [facility] [address] [place], [address] Lymphocytes/100 WBC (Bld) 25.6 % Normal 19-41 [facility] Comment on above: Performed By: #### L 100.0100 #### [facility] [address] [place], [address] MCH (RBC) [Entitic mass] 29.4 pg Normal 27.0-32.0 [facility] Comment on above: Performed By: #### L 100.0100 #### [facility] [address] [place], [address] MCHC (RBC) [Mass/Vol] 33.3 g/dL Normal 32-36 [facility] Comment on above: Performed By: #### L 100.0100 #### [facility] [address] [place], [address] MCV (RBC) [Entitic vol] 88.1 fL Normal 80-94 [facility] Comment on above: Performed By: #### L 100.0100 #### [facility] [address] [place], [address] Monocytes/100 WBC (Bld) 5.5 % Normal 0-10 [facility] Comment on above: Performed By: #### L 100.0100 #### [facility] [address] [place], [address] Neutrophils/100 WBC (Bld) 64.3 % Normal 47-70 [facility] Comment on above: Performed By: #### L 100.0100 #### [facility] [address] [place], [address] Nucleated RBC (Bld) [#/Vol] 0 10*3/uL Normal 0-5 [facility] Comment on above: Performed By: #### L 100.0100 #### [facility] [address] [place], [address] Platelet mean volume (Bld) [Entitic vol] 11.8 fL Normal 6.2-12.0 [facility] Comment on above: Performed By: #### L 100.0100 #### [facility] [address] [place], [address] Platelets (Bld) [#/Vol] 190 10*3/uL Normal 150-450 [facility] Comment on above: Performed By: #### L 100.0100 #### [facility] [address] [place], [address] RBC (Bld) [#/Vol] 5.14 10*6/uL Normal 4.6-6.2 [facility] Comment on above: Performed By: #### L 100.0100 #### [facility] [address] [place], [address] RDW SD 49.7 fl High 35.1-43.9 [facility] Comment on above: Performed By: #### L 100.0100 #### [facility] [address] [place], [address] WBC (Bld) [#/Vol] 7.6 10*3/uL Normal 4.4-11.[address] [facility] Comment on above: Performed By: #### L 100.0100 #### [facility] [address] [place], [address] Carbon dioxide, total [Moles /volume] in Central venous bloodOrdered By: Krystina Hernández on 11-27-2024 CO2 [Moles/Vol] 24.1 mmol/L 21.0-32.0 [facility] Chloride assayOrdered By: Prema Hernández on 11-27-2024 Chloride [Moles/Vol] 100 mmol/L 98-108 [facility] Emergency Department Summary on 11-27-2024 Emergency Department Summary [facility] Medical Records Department [address] [place] [address] Emergency Department Summary 11/27/24 MR#: [id number] Acct: [id number] Name: DONNA RODRIGES Rep #: [id number] : 1985 39 From: Krystina LINDO PCP: Dr. Aliza Roman MD Status:DEP ER Location: ED HPI History of Present Illness Chief Complaint: Edema Narrative Narrative: Patient presenting today due to concerns for a possible seizure that occurred this morning. He got up from his chair but did not use his cane that he normally uses to ambulate, he then fell to the ground onto his right side. He then rolled onto his back and his noticed that his head bobbed back and forth about 3 times against the ground. She was trying to talk to him but he was not responding, the episode lasted a few minutes. He reports that he could hear her talking to him but he thinks he was in shock from the fall and could not respond. He is not currently postictal. He does have a history of a seizure disorder and is compliant with his Keppra. No incontinence occurred. He does report mild left hip pain from the fall. Additionally, he reports history of lower extremity edema, he thinks he has a history of CHF but is not sure. He takes Lasix, his swelling has been worse since Thursday, his PCP told him to double his dose and he took 80 mg yesterday and today, he does report some improvement of his edema since then. He denies fevers, chills, chest pain, abdominal pain, and shortness of breath. He has a PMH of T2DM, cerebral palsy, ENGINEERING ILLUSTRATOR shunt, obesity, HTN, and ROBERT. [facility] Medical History ROBERT treated with BiPAP Cerebral palsy Anxiety Chronic cough Diabetes Non-smoker History of echocardiogram History of stress test 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 Seizure disorder Depression Hypertension History of bronchitis History of pneumonia GERD (gastroesophageal reflux disease) Chest pain Vertigo Super obesity Bronchial asthma Gout Type II diabetes mellitus History of cerebral palsy Obstructive sleep apnea Benign hypertension Home Medications ???Medication ???Instructions ???Recorded ???Last Taken ???Type allopurinol 300 mg tablet 300 mg PO DAILY gout 06/09/1501/15 History nebivolol 10 mg tablet 10 mg PO DAILY heart 06/09/1501/15 History baclofen 20 mg tablet 20 mg PO Q12H muscle spasms 08/28/24 History pantoprazole 40 mg tablet,delayed 40 mg PO DAILY gi 06/25/18 History release levetiracetam 500 mg tablet 500 mg PO BID seizures 01/28/20 History multivitamin with minerals 1 tab PO DAILY vitamin 01/28/20 History acetaminophen 325 mg tablet 650 mg (2 x 325 mg) PO Q6H PRN PRN 04/14/20 08/22/24 Rx Pain Score 1-10/Temp > 100.7 F fluoxetine 10 mg capsule 20 mg PO DAILY depression 08/15/20 08/28/24 History furosemide 20 mg tablet 40 mg PO BID diuretic 10/13/2101/15 History colchicine 0.6 mg tablet 0.6 mg PO PRN gout 12/02/21 History albuterol sulfate 2.5 mg/3 mL 2.5 mg (3 mL) inhalation Q4H PRN 0 01/05/23 Unknown Rx (0.083 %) solution for nebulization shortness of breath or wheezing #180 mL albuterol sulfate 90 mcg/actuation 2 inh inhalation Q4H PRN PRN Sob 01/05/23 Unknown Rx aerosol inhaler /Or Wheezing #8.5 grams budesonide-formoterol HFA 160 2 puff inhalation BID #10.2 grams 01/05/23 08/28/24 Rx mcg-4.5 mcg/actuation aerosol inhaler (Symbicort) montelukast 10 mg tablet 10 mg PO DAILY allergies #90 tabs 01/05/23 08/28/24 Rx spacer #1 ea 01/05/23 Unknown Rx potassium citrate 10 mEq (1,080 10 meq PO DAILY 07/23/23 08/28/24 History mg) tablet,extended release fluticasone propionate 50 2 spray intranasal DAILY allergies 11/23/23 08/28/24 Rx mcg/actuation nasal #16 grams spray,suspension ipratropium bromide 21 mcg (0.03 2 spray intranasal BID #30 mL 09/1608/28/24 Rx %) nasal spray naproxen 500 mg tablet (Naprosyn) 500 mg PO BID PRN pain #20 tabs 0 12/19/23 Unknown Rx Held on 08/29/24. Instructions: Conflicting Appointment semaglutide 1 mg/dose (4 mg/3 mL) mg subcut 05/31/24 08/19/24 Histo ry subcutaneous pen injector (Ozempic) Allergy/AdvReac Type Severity Reaction Status Date / Time animal dander Allergy Chest Verified 11/27/24 11:05 tightness grass pollen Allergy Other Verified 11/27/24 11:05 house dust Allergy Other Verified 11/27/24 11:05 pollen extracts Allergy Other Verified 11/27/24 11:05 Family History Father Chronic a-fib CVA (cerebral vascular accident) Mother ROBERT (obstructive sleep apnea) Breast cancer Grandfather Cancer bladder Other Diabetes Surgica (more content not included)... Normal [facility] Eosinophil percentageOrdered By: Krystina Hernández on 11-27-2024 Eosinophils/100 WBC (Bld) 2.6 % 0-5 [facility] Erythrocyte distribution wid th (RBC) [Ratio]Ordered By: Krystina Hernández on 11-27-2024 Erythrocyte distribution width (RBC) [Entitic vol] 49.7 fL High 35.1-43.[address] [facility] Erythrocyte distribution wid th ratioOrdered By: Krystina Hernández on 11-27-2024 Erythrocyte distribution width (RBC) [Ratio] 15.4 % High 11.6-14.6 [facility] Erythrocyte distribution wid th standard deviationOrdered By: Krystina Hernández on 11-27-2024 Erythrocyte distribution width (RBC) [Ratio] 49.7 fl High 35.1-43.9 [facility] Estimation of creatinine dorothy aranceOrdered By: Krystina Hernández on 11-27-2024 Estimated Creatinine Clearance Calc 227.50 ml/min 50-250 [facility] GFR/1.73 sq M.predicted supa g non-blacks MDRD (S/P/Bld) [Vol rate/Area]Ordered By: Krystina Hernández on 11-27-2024 Estimated GFR (MDRD) Non-Af Amer 125 >60 [facility] Comment on above: mL/min/1.73m2 CKD-EP I Creatinine Equation (2020) Glomerular filtration rate ( GFR) estimation/1.73 sq m using serum, plasma, or whole bOrdered By: Krystina Hernández on 11-27-2024 GFR/1.73 sq M.predicted among non-blacks MDRD (S/P/Bld) [Vol rate/Area] 125 mL/min/{1.73_m2} >60 [facility] Comment on above: mL/min/1.73m2 CKD-EP I Creatinine Equation (2020) HIP, UNI W/ Pelvis 2-3 Views on 11-27-2024 HIP, UNI W/ Pelvis 2-[address] [facility] Imaging Services [address] [place] [address] HIP, UNI W/ Pelvis 2-3 Views MR#: [id number] Acct: [id number] Name: DONNA RODRIGES Rep #: [id number] : 1985 M 39 From: Asif [place] DO PCP: Dr. Aliza Roman MD Status: [facility] ER Study: HIP, UNI W/ Pelvis 2-3 Views Date of Exam: 02/15 Exam# [id number] Ordering Dr: Krystina Hernández PROCEDURE: HIP, UNI W/ PELVIS 2-3 VIEWS 11/27/2024 REASON FOR EXAM: HIP PAIN, FALL TECHNIQUE: AP pelvis and 2 radiographic views of the left hip. FINDINGS: Bones: No fracture Joints: No dislocation. Marked cartilage loss and deformity of bone ends of advanced osteoarthritis Soft tissues: Unremarkable Other: RAD/HIP, UNI W/ Pelvis 2-3 Views IMPRESSION: Advanced osteoarthritis of left hip. Reading [facility] CC: Dr. Aliza Roman MD; GUICHO Jarrell Mandarin Teacher: Signed Normal [facility] Hematocrit Auto (Bld) [Volum e fraction]Ordered By: Krystina Hernández on 11-27-2024 Hematocrit (Bld) [Volume fraction] 45.3 % 40-54 [facility] Hemoglobin measurementOrdere d By: Krystina Hernández on 11-27-2024 Hemoglobin (Bld) [Mass/Vol] 15.1 g/dL 13.0-16.5 [facility] Immature granulocytes/100 WB C Auto (Bld)Ordered By: Krystina Hernández on 11-27-2024 Immature granulocytes/100 WBC (Bld) 1.300 % High 0.0-0.9 [facility] Comment on above: IG% - Immature Granu locytes (promyelocytes, myelocytes and metamyelocytes) > 1% indicates that a LEFT SHIFT is Present. L501.4021on 11-27-2024 Trop T High Sen 12 ng/L Normal <=22 [facility] Comment on above: Performed By: #### L 501.4021 #### [facility] [address] [place], [place], [id number] L503.7505on 11-27-2024 proBNP < 36 Normal <=450 [facility] Comment on above: Result Comment: Hear t Failure Unlikely: < 300 pg/mL Heart Failure Likely < 50 Years: > 450 pg/mL 50-75 Years: > 900 pg/mL >75 Years: > 1800 pg/mL Performed By: #### L 500.2500, L503.7505 ####[facility] [address] [place], [address] Lymphocytes Auto (Unsp spec) [#/Vol]Ordered By: Krystina Hernández on 11-27-2024 Lymphocytes (Bld) [#/Vol] 1.95 10*3/uL 0.83-4.5 1 [facility] Lymphocytes/100 WBC Auto (Un sp spec)Ordered By: Krystina Hernández on 11-27-2024 Lymphocytes/100 WBC (Bld) 25.6 % 19-41 [facility] MCV (mean corpuscular volume ) determinationOrdered By: Krystina Hernández on 11-27-2024 MCV (RBC) [Entitic vol] 88.1 fL 80-94 [facility] Mean corpuscular hemoglobin (MCH) determinationOrdered By: Krystina Hernández on 11-27-2024 MCH (RBC) [Entitic mass] 29.4 pg 27.0-32.0 [facility] Mean corpuscular hemoglobin concentration (MCHC) determinationOrdered By: Krystina Hernández on 11-27-2024 MCHC (RBC) [Mass/Vol] 33.3 g/dL 32-36 [facility] Mean platelet volume determi nationOrdered By: Krystina Hernández on 11-27-2024 Platelet mean volume (Bld) [Entitic vol] 11.8 fL 6.2-12.0 [facility] Monocyte percentageOrdered B y: Krystina Hernández on 11-27-2024 Monocytes/100 WBC (Bld) 5.5 % 0-10 [facility] Natriuretic peptide.B prohor valentine N-Terminal [Mass/Vol]Ordered By: Krystina Hernández on 11-27-2024 MG-LvbY-Ncqg Natriuretic Peptide II < 36 pg/mL <450 [facility] Comment on above: Heart Failure Unlike ly: < 300 pg/mLHeart Failure Likely< 50 Years: > 450 pg/mL50-75 Years: > 900 pg/mL>75 Years: > 1800 pg/mL Natriuretic peptide.B prohor valentine N-Terminal [Mass/volume] in Serum or PlasmaOrdered By: Krystina Hernández on 11-27-2024 Natriuretic peptide.B prohormone N-Terminal [Mass/Vol] < 36 pg/mL <450 [facility] Comment on above: Heart Failure Unlike ly: < 300 pg/mLHeart Failure Likely< 50 Years: > 450 pg/mL50-75 Years: > 900 pg/mL>75 Years: > 1800 pg/mL Neutrophil percentageOrdered By: Krystina Hernández on 11-27-2024 Neutrophils/100 WBC (Bld) 64.3 % 47-70 [facility] Nucleated red blood cell per centageOrdered By: Krystina Hernández on 11-27-2024 Nucleated RBC/100 WBC (Bld) [Ratio] 0 % 0-5 [facility] Platelet countOrdered By: Prema Hernández on 11-27-2024 Platelets (Bld) [#/Vol] 190 10*3/uL 150-450 [facility] Potassium (Unsp spec) [Mass/ Vol]Ordered By: Krystina Hernández on 11-27-2024 Potassium [Moles/Vol] 3.9 mmol/L 3.3-5.1 [facility] Potassium measurement (mass/ volume)Ordered By: Krystina Hernández on 11-27-2024 Potassium (Unsp spec) [Mass/Vol] 3.9 mmol/L 3.3-5.1 [facility] RBC Auto (Bld) [#/Vol]Ordere d By: Krystina Hernández on 11-27-2024 RBC (Bld) [#/Vol] 5.14 10*6/uL 4.6-6.2 [facility] Serum creatinine measurement (mass/volume)Ordered By: Krystina Hernández on 11-27-2024 Creatinine [Mass/Vol] 0.61 mg/dL Low 0.70-1.20 [facility] Serum glucose measurement (m ass/volume)Ordered By: Krystina Hernández on 11-27-2024 Glucose [Mass/Vol] 303 mg/dL High 70-[address] [facility] Serum or plasma calcium gloria urement (mass/volume)Ordered By: Krystina Hernández on 11-27-2024 Calcium [Mass/Vol] 9.2 mg/dL 7.6-11.[address] [facility] Serum or plasma urea nitroge n measurement (mass/volume)Ordered By: Krystina Hernández on 11-27-2024 Urea nitrogen [Mass/Vol] 16 mg/dL 4-19 [facility] Shuntogram/Prev Placed Shunt on 11-27-2024 Shuntogram/Prev Placed Shunt [facility] Imaging Services [address] [place] [id number] Shuntogram/Prev Placed Shunt MR#: [id number] Acct: [id number] Name: DONNA RODRIGES Rep #: [id number] : 1985 M 39 From: Asif [place] DO PCP: Dr. Aliza Roman MD Status: REG ER Study: Shuntogram/Prev Placed Shunt Date of Exam: 02/15 Exam# [id number] Ordering Dr: Davonte Mendez DO EXAM: Diagnostic shuntogram of placed shunt. CLINICAL HISTORY: Bilateral lower extremity edema for 2 days. COMPARISON: Yesterday, November 26 pelvis and November 27 brain TECHNIQUE: Plain films were obtained to survey the entire course of the right-sided ENGINEERING ILLUSTRATOR shunt. FINDINGS: Skull demonstrates right parietal shunt. The tubing traverses the right skull and right thorax and then is seen right abdomen initially and then crosses over to the left abdomen. No obvious kinking or other abnormality. RAD/Shuntogram/Prev Placed Shunt IMPRESSION: Patent ENGINEERING ILLUSTRATOR shunt. Reading Location[facility] CC: Dr. Aliza Roman MD; Dr. Davonte Mendez DO Mandarin Teacher: Signed Normal [facility] Sodium levelOrdered By: Obey Hernández on 11-27-2024 Sodium [Moles/Vol] 138 mmol/L 133-[address] [facility] Troponin T.cardiac High sens itivity method [Mass/Vol]Ordered By: Krystina Hernández on 11-27-2024 Troponin T High Sensitivity 12 ng/L <22 [facility] Troponin T.cardiac [Mass/vol ume] in Serum or Plasma by High sensitivity methodOrdered By: Krystina Hernández on 11-27-2024 Troponin T.cardiac High sensitivity method [Mass/Vol] 12 ng/L <22 [facility] White blood cell (WBC) count Ordered By: Krystina Hernández on 11-27-2024 WBC (Bld) [#/Vol] 7.6 10*3/uL 4.4-11.[address] [facility] Emergency Department Summary on 10-28-2024 Emergency Department Summary [facility] Medical Records Department [address] [place] [address] Emergency Department Summary 10/28/24 MR#: [id number] Acct: [id number] Name: DONNA RODRIGES Rep #: [id number] : 1985 39 From: Madhu Page DO PCP: Dr. Aliza Roman MD Status:DEP ER Location: ED HPI History of Present Illness Chief Complaint: Lower Extremity Injury Informant: patient and spouse/S.O. Narrative Narrative: 39-year-old male presenting to the emergency department chief complaint of right calf pain. Patient states that he has a history of lymphedema and noticed that his leg was more swollen last night he had pain in the right calf. He denies a history of DVT PE. He states that he is concerned for DVT. He denies any injuries to the leg. He takes 40 mg of furosemide twice a day PFSH PFSH Medical History ROBERT treated with BiPAP Cerebral palsy Anxiety Chronic cough Diabetes Non-smoker History of echocardiogram History of stress test 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 Seizure disorder Depression Hypertension History of bronchitis History of pneumonia GERD (gastroesophageal reflux disease) Chest pain Vertigo Super obesity Bronchial asthma Gout Type II diabetes mellitus History of cerebral palsy Obstructive sleep apnea Benign hypertension Home Medications ???Medication ???Instructions ???Recorded ???Last Taken ???Type allopurinol 300 mg tablet 300 mg PO DAILY gout 06/09/1501/15 History nebivolol 10 mg tablet 10 mg PO DAILY heart 06/09/1501/15 History baclofen 20 mg tablet 20 mg PO Q12H muscle spasms 08/28/24 History pantoprazole 40 mg tablet,delayed 40 mg PO DAILY gi 06/25/18 History release levetiracetam 500 mg tablet 500 mg PO BID seizures 01/28/20 History multivitamin with minerals 1 tab PO DAILY vitamin 01/28/20 History acetaminophen 325 mg tablet 650 mg (2 x 325 mg) PO Q6H PRN PRN 04/14/20 08/22/24 Rx Pain Score 1-10/Temp > 100.7 F fluoxetine 10 mg capsule 20 mg PO DAILY depression 08/15/20 08/28/24 History furosemide 20 mg tablet 40 mg PO BID diuretic 10/13/2101/15 History colchicine 0.6 mg tablet 0.6 mg PO PRN gout 12/02/21 History albuterol sulfate 2.5 mg/3 mL 2.5 mg (3 mL) inhalation Q4H PRN 0 01/05/23 Unknown Rx (0.083 %) solution for nebulization shortness of breath or wheezing #180 mL albuterol sulfate 90 mcg/actuation 2 inh inhalation Q4H PRN PRN Sob 01/05/23 Unknown Rx aerosol inhaler /Or Wheezing #8.5 grams budesonide-formoterol HFA 160 2 puff inhalation BID #10.2 grams 01/05/23 08/28/24 Rx mcg-4.5 mcg/actuation aerosol inhaler (Symbicort) montelukast 10 mg tablet 10 mg PO DAILY allergies #90 tabs 01/05/23 08/28/24 Rx spacer #1 ea 01/05/23 Unknown Rx potassium citrate 10 mEq (1,080 10 meq PO DAILY 07/23/23 08/28/24 History mg) tablet,extended release fluticasone propionate 50 2 spray intranasal DAILY allergies 11/23/23 08/28/24 Rx mcg/actuation nasal #16 grams spray,suspension ipratropium bromide 21 mcg (0.03 2 spray intranasal BID #30 mL 09/1608/28/24 Rx %) nasal spray naproxen 500 mg tablet (Naprosyn) 500 mg PO BID PRN pain #20 tabs 0 12/19/23 Unknown Rx Held on 08/29/24. Instructions: Conflicting Appointment semaglutide 1 mg/dose (4 mg/3 mL) mg subcut 05/31/24 08/19/24 Histo ry subcutaneous pen injector (Ozempic) Allergy/AdvReac Type Severity Reaction Status Date / Time animal dander Allergy Chest Verified 10/28/24 12:52 tightness grass pollen Allergy Other Verified 10/28/24 12:52 house dust Allergy Other Verified 10/28/24 12:52 pollen extracts Allergy Other Verified 10/28/24 12:52 Family History Father Chronic a-fib CVA (cerebral vascular accident) Mother ROBERT (obstructive sleep apnea) Breast cancer Grandfather Cancer bladder Other Diabetes Surgical History H/O hernia repair H/O eye surgery S/P ENGINEERING ILLUSTRATOR shunt Social History Smoking Status: Never smoker ROS ROS ED Constitutional Constitutional ED: Denies chills or weight loss Eyes Eyes: Denies change in vision or diplopia ENT ENT ED: Denies ear pain, rhinorrhea or sore throat Cardiovascular Cardiovascular: Denies chest pain, orthopnea, palpitations or racing heartbeat Respiratory/Chest Respiratory/Chest: Denies cough, dyspnea or orthopnea Gastrointestinal Gastrointestinal: Denies abdominal pain, diarrhea, nausea or vomiting Genitourinary Genitourinary ED: Denies dysuria, hematuria or urinary frequency Musculoskeletal Musc (more content not included)... Normal [facility] Venous Duplex US, Unilateral on 10-28-2024 Venous Duplex US, Unilateral [facility] Cardiovascular Services [address] [place] [address] Venous Duplex US, Unilateral 10/28/24 1307 MR#: [id number] Acct: [id number] Name: DONNA RODRIGES Rep #: [id number] : 1985 39 From: Mamadou Mendoza MD Attending Dr: Status: DEP ER Ordering Dr: Hafsa Salcedo DO Date: 10/28/24 Location: ED Sex: M C Admitted: Reason For Study Reason For Study: Pain RLE RIGHT LEFT GSV is normal. CFV is compressible, spontaneous, phasic, competent, CFV is compressible, spontaneous, phasic, competent and demonstrates normal augmentation. and demonstrates normal augmentation. FV is compressible, spontaneous, phasic, competent and demonstrates normal augmentation. POP V is compressible, spontaneous, phasic, competent and demonstrates normal augmentation. T/P Trunk is compressible. PTV is compressible. RT PerV is compressible. Procedure This is a venous duplex using B-mode, color flow and spectral Doppler. Exam performed in department. A preliminary report was called and/or faxed to ED, Jil GODFREY. VL/Venous Duplex US, Unilateral Interpretation Summary Deep veins of the right lower extremity are patent and compressible segmentally. There is no evidence of right lower extremity deep vein thrombosis. Valvular competence appears intact within the proximal deep venous system on the right . The right great saphenous vein appears patent and compressible segmentally. The left common femoral vein is patent and compressible . Ordering Physician: Hafsa Salcedo Referring Physician: Aliza Roamn Performed By: Maday Boo, RDCS, RVT 10/31/241809 Date Mamadou Mendoza MD CC: Dr. Hafsa Salcedo DO; Dr. Madhu Page DO; Dr. Aliza Roman MD Date Dictated: 10/28/24 1307 Date Transcribed: 10/31/241809 Mandarin Teacher: Signed Normal [facility] Albumin to globulin ratioOrd ered By: Aliza Roman on 09-21-2024 Albumin/Globulin [Mass ratio] 0.7 {ratio} Low 0.9-2.4 [facility] Bilirubin, totalOrdered By: Aliza Roman on 09-21-2024 Bilirubin [Mass/Vol] 0.40 mg/dL 0.20-1.00 [facility] Comment on above: For patients on eltr ombopag therapy, use of Dimension [place] TBIL is not recommended. Blood urea nitrogen (BUN)/cr eatinine ratioOrdered By: Aliza Roman on 09-21-2024 Urea nitrogen/Creatinine [Mass ratio] 22.3 mg/mg High 10-20 [facility] Carbon dioxide measurementOr dered By: Aliza Roman on 09-21-2024 CO2 [Moles/Vol] 27.0 mmol/L 21.0-32.0 [facility] Chloride measurementOrdered By: Aliza oRman on 09-21-2024 Chloride [Moles/Vol] 101 mmol/L 98-107 [facility] Comprehensive Metabolic Prof ilon 09-21-2024 Albumin [Mass/Vol] 3.4 g/dL Normal 3.2-5.[address] [facility] Comment on above: Performed By: #### L 502.0250, L500.4050, L500.4100 ####[facility] [address] [place], [address] Albumin/Globulin [Mass ratio] 0.7 {ratio} Low 0.9-2.4 [facility] Comment on above: Performed By: #### L 502.0250, L500.4050, L500.4100 ####[facility] [address] [place], [address] ALK P 126 U/L High 45-117 [facility] Comment on above: Performed By: #### L 502.0250, L500.4050, L500.4100 ####[facility] [address] [place], [address] ALT [Catalytic activity/Vol] 84 U/L High 16-61 [facility] Comment on above: Performed By: #### L 502.0250, L500.4050, L500.4100 ####[facility] [address] [place], [address] AST [Catalytic activity/Vol] 54 U/L High 15-37 [facility] Comment on above: Performed By: #### L 502.0250, L500.4050, L500.4100 ####[facility] [address] [place], [address] Bilirubin [Mass/Vol] 0.40 mg/dL Normal 0.20-1.00 [facility] Comment on above: Result Comment: For patients on eltrombopag therapy, use of Dimension [place] TBIL is not recommended. Performed By: #### L 502.0250, L500.4050, L500.4100 ####[facility] [address] [place], [address] BUN/CRE 22.3 RATIO High 10-20 [facility] Comment on above: Performed By: #### L 502.0250, L500.4050, L500.4100 ####[facility] [address] [place], [address] CA,Total 9.4 mg/dL Normal 8.5-10.1 [facility] Comment on above: Performed By: #### L 502.0250, L500.4050, L500.4100 ####[facility] [address] [place], [address] Chloride [Moles/Vol] 101 mmol/L Normal 98-107 [facility] Comment on above: Performed By: #### L 502.0250, L500.4050, L500.4100 ####[facility] [address] [place], [address] CO2 [Moles/Vol] 27.0 mmol/L Normal 21.0-32.0 [facility] Comment on above: Performed By: #### L 502.0250, L500.4050, L500.4100 ####[facility] [address] [place], [address] Creatinine [Mass/Vol] 0.72 mg/dL Normal 0.70-1.30 [facility] Comment on above: Result Comment: The validity of the calculated GFR GFRAA in patients over 70 years has not been determined. Clinical correlation is essential. Performed By: #### L 502.0250, L500.4050, L500.4100 ####[facility] [address] [place], [address] EST GFR - AA 156 mL/min Normal >60 [facility] Comment on above: Result Comment: Afri can Lebanese GFR Calc Performed By: #### L 502.0250, L500.4050, L500.4100 ####[facility] [address] [place], [address] GAP 8 Normal 5-15 [facility] Comment on above: Performed By: #### L 502.0250, L500.4050, L500.4100 ####[facility] [address] [place], [address] GFR/1.73 sq M.predicted among non-blacks MDRD (S/P/Bld) [Vol rate/Area] 129 mL/min/{1.73_m2} Normal >60 [facility] Comment on above: Result Comment: Non- GFR Calc Performed By: #### L 502.0250, L500.4050, L500.4100 ####[facility] [address] [place], [address] Globulin (S) [Mass/Vol] 4.7 g/dL High 2.2-4.2 [facility] Comment on above: Performed By: #### L 502.0250, L500.4050, L500.4100 ####[facility] [address] [place], [address] Glucose [Mass/Vol] 319 mg/dL High 74-[address] [facility] Comment on above: Result Comment: Gluc ose result greater than or equal to 200 mg/dL suggests DIABETES MELLITUS per A.D.A. criteria. Performed By: #### L 502.0250, L500.4050, L500.4100 ####[facility] [address] [place], [address] Potassium [Moles/Vol] 4.3 mmol/L Normal 3.5-5.1 [facility] Comment on above: Performed By: #### L 502.0250, L500.4050, L500.4100 ####[facility] [address] [place], [address] Sodium [Moles/Vol] 136 mmol/L Normal 136-[address] [facility] Comment on above: Performed By: #### L 502.0250, L500.4050, L500.4100 ####[facility] [address] [place], [address] T PROT 8.1 g/dL Normal 6.4-8.2 [facility] Comment on above: Performed By: #### L 502.0250, L500.4050, L500.4100 ####[facility] [address] [place], [address] Urea nitrogen [Mass/Vol] 16 mg/dL Normal 7-18 [facility] Comment on above: Performed By: #### L 502.0250, L500.4050, L500.4100 ####[facility] [address] [place], [address] Estimated glomerular filtrat ion rate (GFR) AmericanOrdered By: Aliza Roman on 09-21-2024 Estimated GFR (MDRD) Amer 156 mL/min >60 [facility] Comment on above: GFR Calc Glomerular filtration rate ( GFR) estimationOrdered By: Aliza Roman on 09-21-2024 Estimated GFR (MDRD) Non-Af Amer 129 mL/min >60 [facility] Comment on above: Non- GFR Calc GFR/1.73 sq M.predicted among non-blacks MDRD (S/P/Bld) [Vol rate/Area] 129 mL/min/{1.73_m2} >60 [facility] Comment on above: Non- GFR Calc Glucose measurementOrdered B y: Aliza Roman on 09-21-2024 Glucose [Mass/Vol] 319 mg/dL High 74-[address] [facility] Comment on above: Glucose result great er than or equal to 200 mg/dLsuggests DIABETES MELLITUS per A.D.A. criteria. High density lipoprotein (HD L) measurementOrdered By: Aliza Roman on 09-21-2024 Cholesterol in HDL [Mass/Vol] 37 mg/dL Low >40 [facility] Comment on above: The drugs N-Acetylcy steine and Metamizole may falsely depress this assay. Reference Range HDL <40 mg/dL Low HDL Cholesterol HDL >or= 60 mg/dL High HDL Cholesterol Laboratory - Chemistry and C hemistry - challengeOrdered By: Aliza Roman on 09-21-2024 AST [Catalytic activity/Vol] 54 U/L High 15-37 [facility] Lipid Profileon 09-21-2024 Cholesterol [Mass/Vol] 233 mg/dL High 200 [facility] Comment on above: Result Comment: <200 mg/dL Desirable 200-240 mg/dL Borderline >240 mg/dL High Risk Performed By: #### L 502.0250, L500.4050, L500.4100 ####[facility] [address] [place], [address] Cholesterol in HDL [Mass/Vol] 37 mg/dL Low [facility] Comment on above: Result Comment: The drugs N-Acetylcysteine and Metamizole may falsely depress this assay. Reference Range HDL <40 mg/dL Low HDL Cholesterol HDL >or= 60 mg/dL High HDL Cholesterol Performed By: #### L 502.0250, L500.4050, L500.4100 ####[facility] [address] [place], [address] Cholesterol in LDL [Mass/Vol] 134 mg/dL High 0-130 [facility] Comment on above: Performed By: #### L 502.0250, L500.4050, L500.4100 ####[facility] [address] [place], [address] Cholesterol in VLDL [Mass/Vol] 62 mg/dL High 5-40 [facility] Comment on above: Performed By: #### L 502.0250, L500.4050, L500.4100 ####[facility] [address] [place], [address] Triglyceride [Mass/Vol] 311 mg/dL High [facility] Comment on above: Result Comment: The drugs N-Acetylcysteine and Metamizole may falsely depress this assay. Serum Triglycerides Reference Interval Normal <150 mg/dL Borderline high 150 - 199 mg/dL High 200 - 499 mg/dL Very High > or = 500 mg/dL Performed By: #### L 502.0250, L500.4050, L500.4100 ####[facility] [address] [place], [address] Low density lipoprotein (LDL ) cholesterol measurementOrdered By: Aliza Roman on 09-21-2024 Cholesterol in LDL [Mass/Vol] 134 mg/dL High 0-130 [facility] Microalb:Creat Ratio,Random URon 09-21-2024 Creatinine [Mass/Vol] 55.10 mg/dL Normal NO RAN GE EST. [facility] Comment on above: Performed By: #### L 502.0250, L500.4050, L500.4100 ####[facility] [address] [place], [address] MALB:CRE 16.1 mg/g CRE Normal <30 mg/g CRE [facility] Comment on above: Performed By: #### L 502.0250, L500.4050, L500.4100 ####[facility] [address] [place], [address] MICROALBUMIN,UR 8.8 mg/L Normal NO RANGE EST. [facility] Comment on above: Performed By: #### L 502.0250, L500.4050, L500.4100 ####[facility] [address] [place], [address] Potassium measurementOrdered By: Aliza Roman on 09-21-2024 Potassium [Moles/Vol] 4.3 mmol/L 3.5-5.1 [facility] Random urine microalbumin me asurementOrdered By: Aliza Roman on 09-21-2024 Urine Random Microalbumin 8.8 mg/L NO RANGE EST. [facility] Serum anion gap measurementO rdered By: Aliza Roman on 09-21-2024 Anion gap [Moles/Vol] 8 mmol/L 5-15 [facility] Serum globulin measurementOr dered By: Aliza Roman on 09-21-2024 Globulin (S) [Mass/Vol] 4.7 g/dL High 2.2-4.2 [facility] Serum or plasma alanine elizondo otransferase (ALT) measurementOrdered By: Aliza Roman on 09-21-2024 ALT [Catalytic activity/Vol] 84 U/L High 16-61 [facility] Serum or plasma albumin gloria urement (mass/volume)Ordered By: Aliza Roman on 09-21-2024 Albumin [Mass/Vol] 3.4 g/dL 3.2-5.[address] [facility] Serum or plasma alkaline ramesh sphatase measurementOrdered By: Aliza Roman on 09-21-2024 ALP [Catalytic activity/Vol] 126 U/L High 45-117 [facility] Serum or plasma calcium gloria urement (mass/volume)Ordered By: Aliza Roman on 09-21-2024 Calcium [Mass/Vol] 9.4 mg/dL 8.5-10.[address] [facility] Serum or plasma cholesterol measurement (mass/volume)Ordered By: Aliza Roman on 09-21-2024 Cholesterol [Mass/Vol] 233 mg/dL High <200 [facility] Comment on above: <200 mg/dL Desirable 200-240 mg/dL Borderline >240 mg/dL High Risk Serum or plasma creatinine m easurement (mass/volume)Ordered By: Aliza Roman on 09-21-2024 Creatinine [Mass/Vol] 0.72 mg/dL 0.70-1.30 [facility] Comment on above: The validity of the calculated GFR & GFRAA in patients over 70 years has not been determined. Clinical correlation is essential. Serum or plasma urea nitroge n measurement (mass/volume)Ordered By: Aliza Roman on 09-21-2024 Urea nitrogen [Mass/Vol] 16 mg/dL 7-18 [facility] Sodium levelOrdered By: Sunny Roman on 09-21-2024 Sodium [Moles/Vol] 136 mmol/L 136-[address] [facility] Total proteinOrdered By: Byron Roman on 09-21-2024 Protein [Mass/Vol] 8.1 g/dL 6.4-8.[address] [facility] Triglycerides measurementOrd ered By: Aliza Roman on 09-21-2024 Triglyceride [Mass/Vol] 311 mg/dL High <199 [facility] Comment on above: The drugs N-Acetylcy steine and Metamizole may falsely depress this assay.Serum Triglycerides Reference Interval Normal <150 mg/dL Borderline high 150 - 199 mg/dL High 200 - 499 mg/dL Very High > or = 500 mg/dL Urine albumin/creatinine rat io for detection of microalbuminuriaOrdered By: Aliza Roman on 09-21-2024 Urine Microalbumin/Creatinine Ratio 16.1 mg/g CRE <30 [facility] Urine creatinine measurement (mass/volume)Ordered By: Aliza Roman on 09-21-2024 Creatinine (U) [Mass/Vol] 55.10 mg/dL NO RANGE EST. [facility] Very low density lipoprotein (VLDL) cholesterol measurementOrdered By: Aliza Roman on 09-21-2024 Very low density lipoprotein (VLDL) cholesterol measurement 62 mg/dL High 5-40 [facility] VLDL Cholesterol 62 mg/dL High 5-40 [facility] Bedside Glucoseon 08-29-2024 FINGERSTICK GLU 287 mg/dL High 74-106 [facility] Comment on above: Result Comment: TIN BESS OF PATIENT CARE PER NURSING PROTOCOL Performed By: #### L 501.080 #### [facility] [address] [place], [address] Fluoro Guided Needle Placeme nton 08-29-2024 Fluoro Guided Needle Placement [facility] Imaging Services [address] [place] [address] Fluoro Guided Needle Placement MR#: [id number] Acct: [id number] Name: DONNA RODRIGES Rep #: [id number] : 1985 M 39 From: Donaldo powell MD PCP: Dr. Aliza Roman MD Status: PRE [facility] Study: Fluoro Guided Needle Placement Date of Exam: 0 08/29/24 Exam# [id number] Ordering Dr: [place] [id number] STUDY: HIP INJECTION. LEFT REASON FOR EXAM: Male, 39 years old. LT HIP INJECTION FLUOROSCOPY TIME (if supplied): ( 4 seconds ) minutes/seconds. 1.94 mGy. One image was submitted. FINDINGS: Intraoperative imaging provided for left hip injection. RAD/Fluoro Guided Needle Placement IMPRESSION: Intraoperative imaging provided for left hip injection. Electronically Signed: Donaldo Roldan MD at 12:02 EST Reading Location ID and State: [address] [place] [address] , Service support , CC: Dr. Aliza Roman MD; Dr. Carlos Ibarra MD Mandarin Teacher: Signed Normal [facility] Operative Reporton 5 Operative Report [facility] Medical Records Department [address] [place] [address] Operative Report 08/29/24 1114 MR#: [id number] Acct: [id number] Name: DONNA RODRIGES Rep #: [id number] : 1985 39 From: Carlos Ibarra MD PCP: Dr. Aliza Roman MD Status:REG [facility] Location: [place] [address] Operative Report (Standard) Operative Information Date of Procedure: 08/29/24 Pre-Operative Diagnosis: 1 Post-Operative Diagnosis: 1 Surgery/Procedure Performed: 1 rug repairer: No Type of Anesthesia: Local RN Documented Start/Stop Times: Operation Date: 08/29/24 11:00 Case Time Into Pre-Op 08/29/24 09:51 Out of Pre-Op 08/29/24 10:58 Into Room 08/29/24 11:02 Procedure Start 08/29/24 11:09 Procedure End 08/29/24 11:12 Anesthesia End 08/29/24 11:13 Out of Room 08/29/24 11:13 Procedure Start Time: 11:14 Procedure Stop Time: 11:14 Select all DRAINS/GRAFTS/IMPLANTS that apply: None Estimated Blood Loss: 1 Specimen collected: No Description of surgery: PREOPERATIVE DIAGNOSIS: Osteoarthritis of the left hip POSTOPERATIVE DIAGNOSIS: Osteoarthritis of the left hip PROCEDURE PERFORMED: Left hip intraarticular steroid injection under fluoroscopy guidance. ANESTHESIA: Local BLOOD LOSS: Minimal. COMPLICATIONS: None. DESCRIPTION OF PROCEDURE: History and physical of today was reviewed. Risks and benefits of the procedure were explained. The patient understood and agreed to proceed. Informed consent was obtained. IV inserted per routine protocol. The patient was taken to the operating room and placed in the supine position. The left hip area was prepped and draped in a sterile fashion using iodine x3. Under fluoroscopy guidance on AP view, the left hip joint was visualized. The skin and subcutaneous tissue was anesthetized with approximately 3 mL of 1% lidocaine using a 25-gauge regular needle approximately 3 cm cephalad to the left greater trochanter. Under direct visualization with fluoroscopy on an AP view, using a 22-gauge 5-inch spinal needle, the needle was advanced via the skin using the lateral approach. The tip of the needle was maneuvered and directed towards the superiormost aspect of the hip joint. Once the tip of the needle was at the vicinity of the joint, after negative aspiration for blood and positive aspiration of synovial fluid, a total of 1 mL of contrast was injected to confirm correct placement of the needle as well as halo spread around the hip joint. After repeated negative aspiration for blood and confirmation on AP as well as oblique view, a total of 10 mL of preservative-free 0.25% Marcaine with 80 mg of Depo-Medrol was injected easily. The needle was then removed intact. The patient experienced no sign or symptoms of intrathecal or intravascular injection. The patient experienced no paresthesia. The procedure was completed without any apparent difficulty or any complications. The patient appeared to tolerate it well. ASSESSMENT AND PLAN: This is a 39-year-old male with osteoarthritis of the left hip status post left hip intra-articular steroid injection under fluoroscopic guidance, patient will continue his current medications, patient will follow up in approximately 2 weeks for reevaluation. Surgical Findings: 0 Complications Complications: No Admit VTE Documentation VTE Present on Admission: No VTE Mechan Device Prophylaxis: None VTE Pharm Prophylaxis ordered?: No 08/29/24 0631 Cosigner Signature (if applicable): CC: Dr. Aliza Roman MD; Dr. Carlos Ibarra MD Signed Normal [facility] Pulmonary Visit Reporton Pulmonary Visit Report [facility] Pulmonary Medicine of [address] [place] [address] OFFICE VISIT Date of Service: 05/31/24 MR#: [id number] Acct: [id number] Name: DONNA RODRIGES Rep #: [id number] : 1985 Provider: ROBERT Norris Age/Sex: 39/M Location: [facility] Status: Signed Assessment and Plan Assessment and Plan (1) Bronchial asthma: Status: Chronic Qualifiers: Asthma complication type: uncomplicated Asthma persistence: persistent Asthma severity: moderate Qualified Code(s): J45.40 - Moderate persistent asthma, uncomplicated Plan: Stable, no signs of exacerbation of asthma today. No change in maintenance medications, symptomatically controlled with the use of Symbicort, Flonase and Singulair. No additional testing at this time. Contact the office with any signs of new or worsening symptoms. Follow-up in 6 months. (2) Super obesity: Status: Chronic Plan: Deteriorated, the patient has put on a few pounds since last office visit. The patient reports that he needs to lose 108 pounds before he can have his hip replacement. Continue to encourage healthy weight loss. (3) Obesity hypoventilation syndrome: Status: Chronic Comment: BiPAP 24/18 centimeters of water Plan: Stable, he is using and benefiting from Pap therapy. No indication for titration study at this time. Continue to encourage weight loss. Contact the office for any new or worsening symptoms in the meantime. Follow-up in 6 months. Plan Details Follow Up: 6 Months ([facility]) [facility] HPI Comments Details: This patient presents to the office today for follow-up of his asthma and obesity hypoventilation syndrome. He is ambulatory with the use of a cane, currently on supplemental oxygen and accompanied today by his . He has not recently been seen in the ED or urgent care for any respiratory illness. He has not required any antibiotics or prednisone for any breathing problems. He is compliant with use of Symbicort 2 puffs twice daily. He does report rinsing his mouth out after each use. He denies any medication side effect such as sore throat or thrush. He is compliant with Flonase and Singulair daily. He has not recently needed to use his albuterol rescue inhaler. He does have shortness of breath on exertion. He denies any cough, sputum production or hemoptysis. He denies any wheezing, chest tightness, chest pain or palpitations. He has not had any fever, chills or body aches. He is compliant with Lasix 40 mg twice daily as prescribed. He is also compliant with supplemental oxygen, using 2 L/min on exertion. He wakes up feeling rested and refreshed with use of his PAP device. He is not having difficulty with nocturia or dry mouth. He is not having excessive mask leaks. He is not requiring naps. He denies nodding off to sleep unintentionally. Compliance report for the past 30 days shows 100% compliance with an average use of 10 hours and 6 minutes per night. Current setting is BiPAP 24/18 cm of water with a residual AHI 2.5 events per hour. Leaks do not appear to be an issue. Intake Vital Signs 11/23/23 08:19 03/28/24 07:11 05/31/24 12:38 Height 5 ft 4 in 5 ft 4 in 5 ft 4 in Weight: 343 lb BMI 58.8 BP 153/97 H Blood Pressure Location Lt brachial Position Sitting Respiration 22 H Pulse 98 Pulse Source Monitor Temp 97.2 F L Temperature Source Temporal Artery Pulse Oximetry (%) 93 Oxygen Delivery Method room air Intake Visit Reasons: 6 m fu Chief Complaint: hernia [employer] Manager Required: No DME Vendor: rodríguez Accompanied by: Allergies animal dander Allergy (Verified 05/31/24 13:59) Chest tightness grass pollen Allergy (Verified 05/31/24 13:59) Other house dust Allergy (Verified 05/31/24 13:59) Other pollen extracts Allergy (Verified 05/31/24 13:59) Other Medications ???Medication ???Instructions ???Recorded ???Confirmed ???Type allopurinol 300 mg tablet 300 mg PO DAILY gout 06/09/15 05/31/24 History nebivolol 10 mg tablet 10 mg PO DAILY heart 06/09/15 05/31/24 History baclofen 20 mg tablet 20 mg PO Q12H muscle spasms 06/25/18 05/31/24 History pantoprazole 40 mg tablet,delayed 40 mg PO DAILY gi 06/25/18 05/31/24 History release levetiracetam 500 mg tablet 500 mg PO BID seizures 01/28/20 05/31/24 History multivitamin with minerals 1 tab PO DAILY vitamin 01/28/20 05/31/24 History acetaminophen 325 mg tablet 650 mg (2 x 325 mg) PO Q6H PRN PRN 04/14/20 05/31/24 Rx Pain Score 1-10/Temp > 100.7 F fluoxetine 10 mg capsule 20 mg PO DAILY depression 08/15/20 05/31/24 History furosemide 20 mg tablet 40 mg PO BID diuretic 10/13/21 05/31/24 History colchicine 0.6 mg tablet 0.6 mg PO PRN gout 12/02/21 05/31/24 History albuterol sulfate 2.5 mg/3 mL 2.5 mg (3 mL) inhalation Q4H PRN 01/05/23 (more content not included)... Normal [facility] Bedside Glucoseon 03-28-2024 FINGERSTICK GLU 275 mg/dL High 74-106 [facility] Comment on above: Result Comment: TIN BESS OF PATIENT CARE PER NURSING PROTOCOL Performed By: #### L 501.080 #### [facility] [address] [place], [address] Fluoro Guided Needle Placeme nton 03-28-2024 Fluoro Guided Needle Placement [facility] Imaging Services [address] [place] [address] Fluoro Guided Needle Placement MR#: [id number] Acct: [id number] Name: DONNA RODRIGES Rep #: [id number] : 1985 M 38 From: Donaldo powell MD PCP: Dr. Aliza Roman MD Status: [facility] Study: Fluoro Guided Needle Placement Date of Exam: 0 03/28/24 Exam# [id number] Ordering Dr: [place] [id number] PROCEDURE: Left hip injection. DATE OF EXAMINATION: March 28, 2024. INDICATION: Male, 38 years old. Left hip pain. FLUOROSCOPY TIME (if supplied): (12 seconds) minutes/seconds. 12.57 mGy. 3 images were submitted. RAD/Fluoro Guided Needle Placement IMPRESSION: Intraoperative imaging provided for left hip injection. Electronically Signed: Donaldo Roldan MD at 15:25 EDT , CC: Dr. Aliza Roman MD; Dr. Carlos Ibarra MD Mandarin Teacher: Signed [facility] MR/POSTOP.[facility] 03-28-2024 [facility]POSTOP[facility] Medical Records Department [address] [place] [address] Anesthesia Postop Eval I 03/28/24 0836 MR#: [id number] Acct: [id number] Name: DONNA RODRIGES Rep #: [id number] : 1985 38 From: Helena Moralez CRNA PCP: Dr. Aliza Roman MD Status:[facility] Y Race: C Location: [place] [address] Anesthesia: Postop Eval I Current Vital Signs Temperature: 98.8 F Pulse Rate: 90 Blood Pressure: 128/71 Respiratory Rate: 16 Pulse Ox: 96 Oxygen Delivery Method: Room Air Assessment Airway patent: Yes Spontaneous unlabored respirations: Yes Mental status: Awake and Calm nausea: No Vomiting: No Anesthesia Complication: No Fluid Hydration Crystalloid volume administer (ml): 300 Total IV fluid infused: 300 Progress Note Anesthesia document: Postop Eval 1 completed: Yes 03/28/24 0836 Date Helena Moralez GAS PLANT OPERATOR Cosigner Signature: Date CC: Signed Normal [facility] MR/[id number] 03-28-2024 [facility] Medical Records Department [address] [place] [address] Anesthesia Postop Eval II 03/28/24 0910 MR#: [id number] Acct: [id number] Name: DONNA RODRIGES Rep #: [id number] : 1985 38 From: Manpreet Campbell MD PCP: Dr. Aliza Roman MD Status:[facility] Y Race: C Location: [facility] Anesthesia Postop Eval I Sum Postop Eval Completion status Anesthesia document: Postop Eval 1 completed: Yes Anesthesia Postop Eval I Summary Anesthesia Postop Eval I Summary: Anesthesia Postop Eval I: Assessment Summary Airway patent Yes 03/28/24 08:36 GAS PLANT OPERATOR.SKOBY Spontaneous unlabored Yes 03/28/24 08:36 GAS PLANT OPERATOR.SKOBY respirations Mental status Awake,Calm 03/28/24 08:36 GAS PLANT OPERATOR.SKOBY nausea No 03/28/24 08:36 GAS PLANT OPERATOR.SKOBY Vomiting No 03/28/24 08:36 GAS PLANT OPERATOR.SKOBY Anesthesia Postop Eval I: Fluid Summary Crystalloid volume administer 300 03/28/24 08:36 GAS PLANT OPERATOR.SKOBY (ml) Colloids volume administered ( ml) Blood Product volume administered (ml) Total IV fluid infused 300 03/28/24 08:36 GAS PLANT OPERATOR.JOSE Anesthesia Postop Eval I: Summary Notes Anesthesia Complication No 03/28/24 08:36 GAS PLANT OPERATOR.SKOBY Anesthesia Complication Comment: Post-operative progress note Anesthesia: Postop Eval II Evaluation Mental status: Awake Pain Level: 0 nausea: No Vomiting: No 03/28/24 0910 Date Manpreet Campbell MD Cosigner Signature: Date CC: Signed Normal [facility] Operative Reporton 4 Operative Report [facility] Medical Records Department [address] [place] [address] Operative Report 03/28/24 0836 MR#: [id number] Acct: [id number] Name: DONNA RODRIGES Rep #: [id number] : 1985 38 From: Carlos Ibarra MD PCP: Dr. Aliza Roman MD Status:[facility] Location: [place] [address] Report of Operation Date of Procedure: 03/28/24 Description of Surgical Findings:: PREOPERATIVE DIAGNOSIS: Osteoarthritis of the left hip POSTOPERATIVE DIAGNOSIS: Osteoarthritis of the left hip PROCEDURE PERFORMED: Left hip intraarticular steroid injection under fluoroscopy guidance. ANESTHESIA: MAC. BLOOD LOSS: Minimal. COMPLICATIONS: None. DESCRIPTION OF PROCEDURE: History and physical of today was reviewed. Risks and benefits of the procedure were explained. The patient understood and agreed to proceed. Informed consent was obtained. IV inserted per routine protocol. The patient was taken to the operating room and placed in the supine position. The left hip area was prepped and draped in a sterile fashion using iodine x3. Under fluoroscopy guidance on AP view, the left hip joint was visualized. The skin and subcutaneous tissue was anesthetized with approximately 3 mL of 1% lidocaine using a 25-gauge regular needle approximately 3 cm cephalad to the left greater trochanter. Under direct visualization with fluoroscopy on an AP view, using a 22-gauge 5-inch spinal needle, the needle was advanced via the skin using the lateral approach. The tip of the needle was maneuvered and directed towards the superiormost aspect of the hip joint. Once the tip of the needle was at the vicinity of the joint, after negative aspiration for blood and positive aspiration of synovial fluid, a total of 1 mL of contrast was injected to confirm correct placement of the needle as well as halo spread around the hip joint. After repeated negative aspiration for blood and confirmation on AP as well as oblique view, a total of 10 mL of preservative-free 0.25% Marcaine with 80 mg of Depo-Medrol was injected easily. The needle was then removed intact. The patient experienced no sign or symptoms of intrathecal or intravascular injection. The patient experienced no paresthesia. The procedure was completed without any apparent difficulty or any complications. The patient appeared to tolerate it well. ASSESSMENT AND PLAN: This is a 38-year-old male with osteoarthritis of the left hip status post left hip intra-articular steroid injection under fluoroscopic guidance, patient will continue his current medications, patient will follow up in approximately 2 weeks for reevaluation. 03/28/24 0838 Cosigner Signature (if applicable): CC: Dr. Aliza Roman MD; Dr. Carlos Ibarra MD Signed [facility] XR SHUNTOGRAMon 02-03-2024 XR SHUNTOGRAM ORIGINAL EXAMINATION: SHUNT SERIES 6 x-ray views 02/02/2024 10:37 am COMPARISON: None. HISTORY: ORDERING SYSTEM PROVIDED HISTORY: Reason for Exam: Assess shunt integrity FINDINGS: Very small areas of calcification are identified along the shunt. The tubing does not appear discontinuous on these images. No other contributory finding. IMPRESSION: There may be minimal Sherice shunt tubing calcification. No shunt discontinuity seen. Interpreted by: Bobby Johnson MD Preliminary Report By: Bobby Johnson MD Electronically signed By Bobby Johnson MD Dictated Date: 02/03/2024 9:16:44 AM Prelim Date: 02/03/2024 9:18:07 AM Sign Date: 02/03/2024 9:18:07 AM Ordering Provider: KAILA PFEIFFER [facility] ([place]) CT HEAD OR BRAIN W/O CONTRAS Ton 02-02-2024 CT HEAD OR BRAIN W/O CONTRAST ORIGINAL EXAMINATION: CT OF THE HEAD WITHOUT CONTRAST 02/02/2024 10:37 am TECHNIQUE: CT of the head was performed without the administration of intravenous contrast. Automated exposure control, iterative reconstruction, and/or weight based adjustment of the mA/kV was utilized to reduce the radiation dose to as low as reasonably achievable. COMPARISON: 10/10/2021. HISTORY: ORDERING SYSTEM PROVIDED HISTORY: Reason for Exam: Hydrocephalus FINDINGS: There is no acute intracranial hemorrhage, mass, mass effect or abnormal extra-axial fluid collection. There is no CT evidence of acute infarct. The density in the larger dural venous sinuses is grossly normal. A ventriculostomy tube seen from a right parietal approach. The tubing terminates near the posterior aspect of the right lateral ventricle. The ventricular caliber is unchanged relative to the 2021 exam. Paucity of the white matter is similar to the prior study. There are few scattered chronic insults in the white matter which are similar to the prior exam. Lacunar defects near the right caudate are unchanged. The skull base and calvarium demonstrate no abnormality. A 1.6 cm retention cyst or polyp seen in the left maxillary sinus. Included mastoid air cells are clear. IMPRESSION: No interval change. Interpreted by: Luca Foss MD Preliminary Report By: Luca Foss MD Electronically signed By Luca Foss MD Dictated Date: 02/02/2024 2:55:17 PM Prelim Date: 02/02/2024 3:05:07 PM Sign Date: 02/02/2024 3:05:07 PM Ordering Provider: KAILA PFEIFFER [facility] ([place]) Absolute lymphocyte countOrd ered By: Robinson Guillen on 12-23-2023 Lymphocytes Auto (Unsp spec) [#/Vol] 1.77 10*3/uL 0.83-4.51 [facility] Automated lymphocyte count a s percentage of total leukocytesOrdered By: Robinson Guillen on 12-23-2023 Lymphocytes/100 WBC Auto (Unsp spec) 21.6 % 19-41 [facility] Basophil percentageOrdered B y: Robinson Guillen on 12-23-2023 Basophils/100 WBC (Bld) 0.5 % 0-1 [facility] Bilirubin [Mass/Vol] 0.40 mg/dL 0.20-1.00 [facility] Comment on above: For patients on eltr ombopag therapy, use of Dimension [place] TBIL is not recommended. Chloride [Moles/Vol] 102 mmol/L 98-107 [facility] Eosinophils/100 WBC (Bld) 2.2 % 0-5 [facility] Glucose [Mass/Vol] 243 mg/dL 74-[address] [facility] Comment on above: Glucose result great er than or equal to 200 mg/dLsuggests DIABETES MELLITUS per A.D.A. criteria. Hemoglobin (Bld) [Mass/Vol] 15.1 g/dL 13.0-16.5 [facility] Monocytes/100 WBC (Bld) 7.3 % 0-10 [facility] Neutrophils (Bld) [#/Vol] 5.5 10*3/uL 2.0-7.7 [facility] Neutrophils/100 WBC (Bld) 67.2 % 47-70 [facility] Potassium [Moles/Vol] 4.3 mmol/L 3.5-5.1 [facility] Comment on above: Moderate Hemolysis, Result may be falsely increased. Protein [Mass/Vol] 8.2 g/dL 6.4-8.[address] [facility] Sodium [Moles/Vol] 138 mmol/L 136-[address] [facility] WBC (Bld) [#/Vol] 8.2 10*3/uL 4.4-11.[address] [facility] Determination of erythrocyte mean corpuscular volume (MCV)Ordered By: Robinson Guillen on 12-23-2023 MCV (RBC) [Entitic vol] 86.8 fL 80-94 [facility] Erythrocyte distribution wid th ratioOrdered By: Robinson Guillen on 12-23-2023 Erythrocyte distribution width (RBC) [Ratio] 15.3 % 11.6-14.6 [facility] Erythrocyte distribution wid th standard deviationOrdered By: Robinson Guillen on 12-23-2023 Erythrocyte distribution width (RBC) [Entitic vol] 47.8 fL 35.1-43.[address] [facility] Hematocrit Auto (Bld) [Volum e fraction]Ordered By: Robinson Guillen on 12-23-2023 Hematocrit (Bld) [Volume fraction] 46.0 % 40-54 [facility] Immature granulocytes/100 WB C Auto (Bld)Ordered By: Robinson uGillen on 12-23-2023 Immature granulocytes/100 WBC (Bld) 1.200 % 0.0-0.9 [facility] Comment on above: IG% - Immature Granu locytes (promyelocytes, myelocytes and metamyelocytes) > 1% indicates that a LEFT SHIFT is Present. Laboratory - Chemistry and C hemistry - challengeOrdered By: Robinson Guillen on 12-23-2023 Albumin/Globulin [Mass ratio] 0.8 {ratio} 0.9-2.4 [facility] ALP [Catalytic activity/Vol] 84 U/L 45-117 [facility] ALT [Catalytic activity/Vol] 41 U/L 16-61 [facility] CO2 [Moles/Vol] 32.0 mmol/L 21.0-32.0 [facility] Globulin (S) [Mass/Vol] 4.5 g/dL 2.2-4.2 [facility] Urea nitrogen/Creatinine [Mass ratio] 22.1 mg/mg 10-20 [facility] Laboratory - Hematology and Cell countsOrdered By: Robinson Guillen on 12-23-2023 MCH (RBC) [Entitic mass] 28.5 pg 27.0-32.0 [facility] MCHC (RBC) [Mass/Vol] 32.8 g/dL 32-36 [facility] Nucleated RBC/100 WBC (Bld) [Ratio] 0 % 0-5 [facility] Platelet mean volume (Bld) [Entitic vol] 10.2 fL 6.2-12.0 [facility] Platelets (Bld) [#/Vol] 218 10*3/uL 150-450 [facility] No Panel InformationOrdered By: Robinson Guillen on 12-23-2023 Estimated Creatinine Clearance Calc 204.27 ml/min [facility] Estimated GFR (MDRD) Amer 167 mL/min >60 [facility] Comment on above: GFR Calc Estimated GFR (MDRD) Non-Af Amer 138 mL/min >60 [facility] Comment on above: Non- GFR Calc Troponin I High Sensitivity < 3 pg/mL 3.0-78.0 [facility] Comment on above: Please Note: New Katja t Units and Gender Specific Reference Ranges. For more information see Policy Stat Procedure [place] High Sensitivity Troponin (TNIH) and attachments. RBC Auto (Bld) [#/Vol]Ordere d By: Robinson Guillen on 12-23-2023 RBC (Bld) [#/Vol] 5.30 10*6/uL 4.6-6.2 [facility] Serum or plasma calcium gloria urement (mass/volume)Ordered By: Robinson Guillen on 12-23-2023 Calcium [Mass/Vol] 9.1 mg/dL 8.5-10.[address] [facility] Serum or plasma creatinine m easurement (mass/volume)Ordered By: Robinson Guillen on 12-23-2023 Creatinine [Mass/Vol] 0.68 mg/dL 0.70-1.30 [facility] Comment on above: The validity of the calculated GFR & GFRAA in patients over 70 years has not been determined. Clinical correlation is essential. Serum or plasma urea nitroge n measurement (mass/volume)Ordered By: Robinson Guillen on 12-23-2023 Urea nitrogen [Mass/Vol] 15 mg/dL 7-18 [facility] Thin prep Papanicolaou smear with manual screeningOrdered By: Robinson Guillen on 12-23-2023 Thin prep Papanicolaou smear with manual screening 3.7 g/dL 3.2-5.0 [facility] Thin prep Papanicolaou smear with manual screening 31 U/L 15-37 [facility] Comment on above: Moderate Hemolysis, Result may be falsely increased. Thin prep Papanicolaou smear with manual screening 4 5-15 [facility] Absolute lymphocyte countOrd ered By: Zeny Dumont on 12-18-2023 Lymphocytes Auto (Unsp spec) [#/Vol] 2.65 10*3/uL 0.83-4.51 [facility] Automated lymphocyte count a s percentage of total leukocytesOrdered By: Zeny Dumont on 12-18-2023 Lymphocytes/100 WBC Auto (Unsp spec) 27.8 % 19-41 [facility] Basophil percentageOrdered B y: Zeny Dumont on 12-18-2023 Basophils/100 WBC (Bld) 0.6 % 0-1 [facility] Chloride [Moles/Vol] 104 mmol/L 98-107 [facility] Eosinophils/100 WBC (Bld) 2.0 % 0-5 [facility] Glucose [Mass/Vol] 216 mg/dL 74-[address] [facility] Comment on above: Glucose result great er than or equal to 200 mg/dLsuggests DIABETES MELLITUS per A.D.A. criteria. Hemoglobin (Bld) [Mass/Vol] 14.7 g/dL 13.0-16.5 [facility] Monocytes/100 WBC (Bld) 7.9 % 0-10 [facility] Neutrophils (Bld) [#/Vol] 5.8 10*3/uL 2.0-7.7 [facility] Neutrophils/100 WBC (Bld) 60.9 % 47-70 [facility] Potassium [Moles/Vol] 4.6 mmol/L 3.5-5.1 [facility] Comment on above: Moderate Hemolysis, Result may be falsely increased. Sodium [Moles/Vol] 139 mmol/L 136-[address] [facility] WBC (Bld) [#/Vol] 9.5 10*3/uL 4.4-11.[address] [facility] Determination of erythrocyte mean corpuscular volume (MCV)Ordered By: Zeny Dumont on 12-18-2023 MCV (RBC) [Entitic vol] 87.8 fL 80-94 [facility] Erythrocyte distribution wid th ratioOrdered By: Zeny Dumont on 12-18-2023 Erythrocyte distribution width (RBC) [Ratio] 15.2 % 11.6-14.6 [facility] Erythrocyte distribution wid th standard deviationOrdered By: Zeny Dumont on 12-18-2023 Erythrocyte distribution width (RBC) [Entitic vol] 48.0 fL 35.1-43.[address] [facility] Hematocrit Auto (Bld) [Volum e fraction]Ordered By: Zeny Dumont on 12-18-2023 Hematocrit (Bld) [Volume fraction] 44.7 % 40-54 [facility] Immature granulocytes/100 WB C Auto (Bld)Ordered By: Zeny Dumont on 12-18-2023 Immature granulocytes/100 WBC (Bld) 0.800 % 0.0-0.9 [facility] Comment on above: IG% - Immature Granu locytes (promyelocytes, myelocytes and metamyelocytes) > 1% indicates that a LEFT SHIFT is Present. Laboratory - Chemistry and C hemistry - challengeOrdered By: Zeny Dumont on 12-18-2023 CO2 [Moles/Vol] 31.0 mmol/L 21.0-32.0 [facility] Urea nitrogen/Creatinine [Mass ratio] 27.1 mg/mg 10-20 [facility] Laboratory - Hematology and Cell countsOrdered By: Zeny Dumont on 12-18-2023 MCH (RBC) [Entitic mass] 28.9 pg 27.0-32.0 [facility] MCHC (RBC) [Mass/Vol] 32.9 g/dL 32-36 [facility] Nucleated RBC/100 WBC (Bld) [Ratio] 0 % 0-5 [facility] Platelet mean volume (Bld) [Entitic vol] 10.8 fL 6.2-12.0 [facility] Platelets (Bld) [#/Vol] 225 10*3/uL 150-450 [facility] No Panel InformationOrdered By: Zeny Dumont on 12-18-2023 Estimated Creatinine Clearance Calc 194.38 ml/min [facility] Estimated GFR (MDRD) Amer 160 mL/min >60 [facility] Comment on above: GFR Calc Estimated GFR (MDRD) Non-Af Amer 133 mL/min >60 [facility] Comment on above: Non- GFR Calc RBC Auto (Bld) [#/Vol]Ordere d By: Zeny Dumont on 12-18-2023 RBC (Bld) [#/Vol] 5.09 10*6/uL 4.6-6.2 [facility] Serum or plasma calcium gloria urement (mass/volume)Ordered By: Zeny Dumont on 12-18-2023 Calcium [Mass/Vol] 8.7 mg/dL 8.5-10.[address] [facility] Serum or plasma creatinine m easurement (mass/volume)Ordered By: Zeny Dumont on 12-18-2023 Creatinine [Mass/Vol] 0.70 mg/dL 0.70-1.30 [facility] Comment on above: The validity of the calculated GFR & GFRAA in patients over 70 years has not been determined. Clinical correlation is essential. Serum or plasma urea nitroge n measurement (mass/volume)Ordered By: Zeny Dumont on 12-18-2023 Urea nitrogen [Mass/Vol] 19 mg/dL 7-18 [facility] Thin prep Papanicolaou smear with manual screeningOrdered By: Zeny Dumont on 12-18-2023 Thin prep Papanicolaou smear with manual screening 4 5-15 [facility] Absolute lymphocyte countOrd ered By: Romulo Estrella on 12-05-2023 Lymphocytes Auto (Unsp spec) [#/Vol] 2.57 10*3/uL 0.83-4.51 [facility] Automated lymphocyte count a s percentage of total leukocytesOrdered By: Romulo Estrella on 12-05-2023 Lymphocytes/100 WBC Auto (Unsp spec) 31.9 % 19-41 [facility] Basophil percentageOrdered B y: Romulo Estrella on 12-05-2023 Basophil percentage 25-50 SEEN /hpf 0-5 [facility] Basophils/100 WBC (Bld) 0.6 % 0-1 [facility] Bilirubin [Mass/Vol] 0.40 mg/dL 0.20-1.00 [facility] Comment on above: For patients on eltr ombopag therapy, use of Dimension [place] TBIL is not recommended. Chloride [Moles/Vol] 108 mmol/L 98-107 [facility] Eosinophils/100 WBC (Bld) 1.5 % 0-5 [facility] Glucose [Mass/Vol] 129 mg/dL 74-[address] [facility] Comment on above: Fasting Glucose resu lt greater than or equal to 126 mg/dL suggests DIABETES MELLITUS per A.D.A. criteria. Hemoglobin (Bld) [Mass/Vol] 15.2 g/dL 13.0-16.5 [facility] Monocytes/100 WBC (Bld) 7.5 % 0-10 [facility] Neutrophils (Bld) [#/Vol] 4.6 10*3/uL 2.0-7.7 [facility] Neutrophils/100 WBC (Bld) 57.5 % 47-70 [facility] Potassium [Moles/Vol] 4.3 mmol/L 3.5-5.1 [facility] Comment on above: Moderate Hemolysis, Result may be falsely increased. Protein [Mass/Vol] 8.1 g/dL 6.4-8.[address] [facility] Sodium [Moles/Vol] 139 mmol/L 136-[address] [facility] WBC (Bld) [#/Vol] 8.1 10*3/uL 4.4-11.[address] [facility] Bilirubin Test strip Ql (U)O rdered By: Romulo Estrella on 12-05-2023 Bilirubin Ql (U) Negative Negative [facility] Determination of erythrocyte mean corpuscular volume (MCV)Ordered By: Romulo Estrella on 12-05-2023 MCV (RBC) [Entitic vol] 87.3 fL 80-94 [facility] Erythrocyte distribution wid th ratioOrdered By: Romulo Estrella on 12-05-2023 Erythrocyte distribution width (RBC) [Ratio] 15.6 % 11.6-14.6 [facility] Erythrocyte distribution wid th standard deviationOrdered By: Romulo Estrella on 12-05-2023 Erythrocyte distribution width (RBC) [Entitic vol] 49.2 fL 35.1-43.[address] [facility] Hematocrit Auto (Bld) [Volum e fraction]Ordered By: Romulo Estrella on 12-05-2023 Hematocrit (Bld) [Volume fraction] 47.4 % 40-54 [facility] Immature granulocytes/100 WB C Auto (Bld)Ordered By: Romulo Estrella on 12-05-2023 Immature granulocytes/100 WBC (Bld) 1.000 % 0.0-0.9 [facility] Comment on above: IG% - Immature Granu locytes (promyelocytes, myelocytes and metamyelocytes) > 1% indicates that a LEFT SHIFT is Present. Ketones Test strip Ql (U)Ord ered By: Romulo Estrella on 12-05-2023 Ketones Ql (U) Negative Negative [facility] Laboratory - Chemistry and C hemistry - challengeOrdered By: Romulo Estrella on 12-05-2023 Albumin/Globulin [Mass ratio] 0.8 {ratio} 0.9-2.4 [facility] ALP [Catalytic activity/Vol] 96 U/L 45-117 [facility] ALT [Catalytic activity/Vol] 48 U/L 16-61 [facility] CO2 [Moles/Vol] 28.0 mmol/L 21.0-32.0 [facility] Globulin (S) [Mass/Vol] 4.5 g/dL 2.2-4.2 [facility] Urea nitrogen/Creatinine [Mass ratio] 29.3 mg/mg 10-20 [facility] Laboratory - Hematology and Cell countsOrdered By: Romulo Estrella on 12-05-2023 MCH (RBC) [Entitic mass] 28.0 pg 27.0-32.0 [facility] MCHC (RBC) [Mass/Vol] 32.1 g/dL 32-36 [facility] Nucleated RBC/100 WBC (Bld) [Ratio] 0 % 0-5 [facility] Platelet mean volume (Bld) [Entitic vol] 11.1 fL 6.2-12.0 [facility] Platelets (Bld) [#/Vol] 202 10*3/uL 150-450 [facility] Mucus LM Ql (Urine sed)Order ed By: Romulo Estrella on 12-05-2023 Mucus Ql (Urine sed) 0 SEEN /hpf [facility] Nitrite Test strip Ql (U)Ord ered By: Romulo Estrella on 12-05-2023 Nitrite Ql (U) Negative Negative [facility] No Panel InformationOrdered By: Romulo Estrella on 12-05-2023 Urine RBC 0-5 SEEN /hpf 0-5 [facility] Estimated GFR (MDRD) Amer 187 mL/min >60 [facility] Comment on above: GFR Calc Estimated GFR (MDRD) Non-Af Amer 155 mL/min >60 [facility] Comment on above: Non- GFR Calc Protein Test strip Ql (U)Ord ered By: Romulo Estrella on 12-05-2023 Protein Ql (U) 30 mg/dl Negative [facility] RBC Auto (Bld) [#/Vol]Ordere d By: Romulo Estrella on 12-05-2023 RBC (Bld) [#/Vol] 5.43 10*6/uL 4.6-6.2 [facility] Serum or plasma calcium gloria urement (mass/volume)Ordered By: Romulo Estrella on 12-05-2023 Calcium [Mass/Vol] 8.9 mg/dL 8.5-10.[address] [facility] Serum or plasma creatinine m easurement (mass/volume)Ordered By: Romulo Estrella on 12-05-2023 Creatinine [Mass/Vol] 0.61 mg/dL 0.70-1.30 [facility] Comment on above: The validity of the calculated GFR & GFRAA in patients over 70 years has not been determined. Clinical correlation is essential. Serum or plasma urea nitroge n measurement (mass/volume)Ordered By: Romulo Estrella on 12-05-2023 Urea nitrogen [Mass/Vol] 18 mg/dL 7-18 [facility] Squamous epithelial cells de tection in urine sediment by light microscopyOrdered By: Romulo Estrella on 12-05-2023 Epithelial cells.squamous LM Ql (Urine sed) 0 SEEN /hpf 0-5 [facility] Thin prep Papanicolaou smear with manual screeningOrdered By: Romulo Estrella on 12-05-2023 Thin prep Papanicolaou smear with manual screening 3.6 g/dL 3.2-5.0 [facility] Thin prep Papanicolaou smear with manual screening 36 U/L 15-37 [facility] Comment on above: Moderate Hemolysis, Result may be falsely increased. Thin prep Papanicolaou smear with manual screening 3 5-15 [facility] Urine blood detectionOrdered By: Romulo Estrella on 12-05-2023 RBC Ql (U) 150 /ul Negative [facility] Urine clarityOrdered By: Jocelyn Estrella on 12-05-2023 Clarity (U) Sl. Cloudy Clear [facility] Urine color determinationOrd ered By: Romulo Estrella on 12-05-2023 Color (U) Yellow Yellow [facility] Urine glucose detectionOrder ed By: Romulo Estrella on 12-05-2023 Glucose Ql (U) 1000 mg/dl Normal [facility] Urine leukocyte esterase det ection by dipstickOrdered By: Romulo Estrella on 12-05-2023 Leukocyte esterase Test strip Ql (U) 500 /ul Negative [facility] Urine pHOrdered By: Romulo latif on 12-05-2023 pH (U) 5.0 [pH] 5.0 - 8.0 [facility] Urine sediment bacteria coun t by microscopy (number/high power field)Ordered By: Romulo Estrella on 12-05-2023 Bacteria LM.HPF (Urine sed) [#/Area] 1 /[HPF] None Seen [facility] Urine specific gravity measu rementOrdered By: Romulo Estrella on 12-05-2023 Specific gravity (U) [Rel density] 1.010 1.002-1.030 [facility] Urine urobilinogen measureme ntOrdered By: Romulo Estrella on 12-05-2023 Urobilinogen Ql (U) Normal mg/dl Normal [facility] CNOVon 11-19-2023 CNOV Office Visit (ORTHIN ) DONNA RODRIGES ([id number]) 1985 M Date Time Provider Department 11/19/23 2:30 PM TORITO DUEÑAS During your visit today, we recorded the following information about you: Weight Height 148.4 kg 1.626 m Torito Dueñas PA-C 11/19/2023 6:52 PM Signed Patient: Donna Rodriges : 1985 Providers Referring physician: Denny Stevens MD Primary care physician: Denny Stevens MD Chief complaint: Patient presents with: Left Hip - Pain Patient seen in subspecialty orthopedic hip consultation at the request of Denny Stevens MD . The final recommendations will be communicated back to the requesting clinician by way of the shared medical record or letter via [place] mail. HPI: Donna Rodriges is a 38 year old male seen with a several years history of left hip pain. The onset of pain has been acute on chronic, and the pain is worsening over the past few months. The pain primarily localizes: left groin pain. PAIN EVALUATION 11/17/2023195111/19/2023 1500 Pain Level: 8 7 Pain Location: Hip-Left Hip-Left Description: Shooting Burning Duration Units: Months Unknown Frequency: Continuous Continuous Intervention/Comfort measure: Medication Medication;Reposition;R elaxation The patient denies preceding traumatic injury. The patient does have pain with weight-bearing. The patient does not have pain at night. The patient has difficulty with placing shoes and socks. The pain is exacerbated with ADL's, managing stairs, prolonged standing, recreational activities, and walking. He denies numbness, tingling, or electric shocks. He reports popping, catching, and instability. Alleviating factors: Nothing makes my pain better Prior pertinent orthopedic surgery: none Prior interventions: Physical therapy: Yes Injections/ aspiration: Yes minimal relief with most recent injection Bracing: No Assistive devise: cane Pain medications: Ibuprofen and Tylenol Past Medical History PAST MEDICAL HISTORY Diagnosis Date Asthma Cerebral palsy (HCC) DM2 (diabetes mellitus, type 2) (HCC) Gout HTN (hypertension) Hydrocephalus with operating shunt (HCC) Obesity hypoventilation syndrome (HCC) Sleep apnea on BiPap Past Surgical History PAST SURGICAL HISTORY Procedure Laterality Date SHUNT PLACEMENT W/ULTRASOUND GUIDANCE 1983 at PAST SURGICAL HISTORY OF 1988 heel cord lengthing, L REVISION OF A SHUNT 1988 Family History FAMILY HISTORY Problem Relation Age of Onset other (a fib [Other]) Father other (dm2 [Other]) Mother other (dm2 [Other]) Father Cancer Maternal Grandmother Cancer Paternal Grandfather other (heart diease [Other]) Paternal Grandfather Social History Social History Tobacco Use Smoking status: Never Smokeless tobacco: Never Vaping Use Vaping Use: Never used Substance Use Topics Alcohol use: Yes Comment: holidays Drug use: No Allergies: ALLERGIES Allergen Reactions Seasonal Allergies Other: See Comments Medications Current Outpatient Medications: Potassium Gluconate 2.[address] (PROTONIX) 40 mg tablet VICTOZA 3-DENITA 0.6 mg/0.1 mL (18 mg/3 mL) levETIRAcetam (KEPPRA) 500 mg tablet FARXIGA 10 mg tablet colchicine 0.6 mg tablet baclofen 20 mg tablet acetaminophen (TYLENOL) 325 mg tablet FLUoxetine HCl 20 mg tablet allopurinol (ZYLOPRIM) 300 mg tablet montelukast (SINGULAIR) 10 mg tablet traMADol (ULTRAM) 50 mg tablet Review of Systems: Reviewed and charted into Node1. Physical Exam: PE reveals a male with the following vitals signs: Ht 162.6 cm (5' 4) Wt (!) 148.4 kg (327 lb 2.6 oz) BMI 56.16 kg/m? Body mass index is 56.16 kg/m?. General appearance: Well appearing, alert, in no acute distress, well-hydrated, well nourished. Psych: Mood and affect broad and appropriate Head: Normocephalic, no masses, lesions, tenderness or abnormalities Eyes: Anicteric sclera. Pupils are equally round and reactive to light. Extraocular movements are intact. ENT: Nares patent Lymph: There is no lymphadenopathy. The patient has a stable gait with cane. There is a negative Trendelenberg sign. HIP EXAM: Left Hip extension 10 degrees Hip flexion 90 degrees Hip IR (supine) 5 degrees Hip ER (supine) 5 degrees Hip aBduction 30 degrees Hip aDduction 15 degrees Knee extension 0 degrees Knee flexion 110 degrees Straight leg raise Intact Knee effusion No Knee stable Yes Point tenderness on palpation: The left hip is tender over the anterior aspect of the hip. Pain with resisted hip flexion: positive Pain with passive hip rotation: positive Skin: Normal temperature without erythema Scars: No Motor/sensory function: Intact DP/PT pulses: 2+ KNEE EXAM: Examination of the knees demonstrates normal ROM without pain. Radiology Findings: (I hav (more content not included)... Normal [facility] XR HIP 3V PELV+ AP/LAT LTon 11-16-2023 XR HIP 3V PELV+ AP/LAT LT * * *Final Rep ort* * * DATE OF EXAM: Nov 16 2023 10:36AM [id number] - XR HIP 3V PELV+ AP/LAT LT / PROCEDURE REASON: Pain * * * * Physician Interpretation * * * * EXAMINATION: XR HIP 3V PELV+ AP/LAT LT HISTORY: Hx of hip dysplasia, Increasing pain over the last 6 months Pain . TECHNIQUE: XR HIP 3V PELV+ AP/LAT LT Laterality: LEFT Number of different views (projections): 3 M: XB_1 COMPARISON: RESULT: Dysplasia of the left acetabulum with severe joint space narrowing. Minimal right hip degenerative change. Maintained sacroiliac joints and pubic symphysis. There is a catheter projecting over the abdomen. No acute fracture or dislocation. There are no bony erosions. IMPRESSION: Advanced left hip degenerative change. Mandarin Teacher: PSCB Transcribe Date/Time: Nov 18 2023 4:59P Dictated by : BOBBY BANUELOS MD This examination was interpreted and the report reviewed and electronically signed by: BOBBY BANUELOS MD on Nov 18 2023 5:13PM EST [id number] Normal [facility] CNOVon 10-06-2023 CNOV Office Visit (PODIWS ) DONNA RODRIGES ([id number]) 1985 M Date Time Provider Department 10/06/23 2:15 PM SIMIN HENDRIX PODIWS During your visit today, we recorded the following information about you: Camryn Milan LPN 10/06/2023 2:44 PM Signed AMB ROOMING INTAKE FLOWSHEET DATA Risk Screening Do you have concerns about personal safety or safety in the home?: No Patient presents with: Left Foot - New, Diabetic Foot Care Right Foot - New, Diabetic Foot Care DENZEL Knight Matthew 10/06/2023 2:44 PM Signed Initial Office Visit Subjective: This 38 year [...] noted. Ortho: Ankle joint DF is full wit (more content not included)... Normal [facility] XR FOOT 3V AP/LAT/OBL BILon 10-06-2023 XR FOOT 3V AP/LAT/OBL DWIGHT * * *Final Rep ort* * * DATE OF EXAM: Oct 06 2023 12:52PM [id number] - XR FOOT 3V AP/LAT/OBL DWIGHT / PROCEDURE REASON: Pain * * * * Physician Interpretation * * * * EXAMINATION: XR FOOT 3V AP/LAT/OBL DWIGHT CLINICAL HISTORY: Bilateral foot pain Technique: XR FOOT 3V AP/LAT/OBL DWIGHT -- BILATERAL with 3 each views on 5 images Comparison: None RESULT: Right foot: No acute fracture or dislocation. No destructive osseous lesion. Pseudoarthrosis at the third and fourth metatarsal bases. Hammertoe deformities of the second through fifth toes. Left foot: No acute fracture or dislocation. Left first metatarsophalangeal joint space narrowing with subchondral sclerosis and marginal osteophytes. Hammertoe deformities of the left second through fifth toes. IMPRESSION: No acute osseous abnormality Mandarin Teacher: EVERARDO Transcribe Date/Time: Oct 07 2023 12:11P Dictated by : ARIANNA RODRIGUEZ MD This examination was interpreted and the report reviewed and electronically signed by: ARIANNA RODRIGUEZ MD on Oct 07 2023 12:13PM EST [id number] Normal [facility] Laboratory - Drug toxicology Ordered By: Alejandro Gray on 09-10-2023 Amphetamines Ql (U) Negative <1000 ng/mL [facility] Benzodiazepines Ql (U) Negative < 200 ng/mL [facility] Cannabinoids Screen Ql (U) Negative < 50 ng/mL [facility] Cocaine Ql (U) Negative < 300 ng/mL [facility] Opiates Ql (U) Negative < 300 ng/mL [facility] No Panel InformationOrdered By: Alejandro Grya on 09-10-2023 MDMA (Ecstasy) Screen Negative < 500 ng/mL [facility] Miscellaneous Test See comment [facility] Comment on above: TEST RESULTS LIMITS Tramadol Positive [id number] Tramadol Conf, MS, UR 1312 ng/mL [id number] TESTING PERFORMED AT [facility]. ORIGINAL REPORT ON FILE IN LAB CONTAINS ADDITIONAL TEST SITE INFORMATION. Urine Barbiturates Screen Negative < 200 ng/m L [facility] Urine Drug Screen Comment [facility] Comment on above: CONFIRMATORY TESTING FOR ALL POSITIVE URINE DRUG SCREENRESULTS WILL ONLY BE SENT OUT UPON PHYSICIAN ORDER. VISTA Urine Drug Screen methods provide only preliminaryanalytical test results. A more specific alternate chemicalmethod must be used in order to obtain a confirmedanalytical result. Gas chromatography/mass spectrometery(GC/MS) is the preferred confirmatory method. Clinicalconsideration and professional judgement should be appliedto any drug of abuse test result, particularly whenpreliminary positive results are used. URINE TCA TESTING MUST BE ORDERED SEPARATELY. USE TESTMNEMONIC: [facility] Urine Methadone Screen Negative < 300 ng/mL [facility] Urine phencyclidine (PCP) de tectionOrdered By: Alejandro Gray on 09-10-2023 Phencyclidine Ql (U) Negative < 25 ng/mL [facility] Laboratory - Drug toxicology Ordered By: Alejandro Gray on 09-03-2023 Amphetamines Ql (U) Negative <1000 ng/mL [facility] Benzodiazepines Ql (U) Negative < 200 ng/mL [facility] Cannabinoids Screen Ql (U) Negative < 50 ng/mL [facility] Cocaine Ql (U) Negative < 300 ng/mL [facility] Opiates Ql (U) Negative < 300 ng/mL [facility] No Panel InformationOrdered By: Alejandro Gray on 09-03-2023 MDMA (Ecstasy) Screen Negative < 500 ng/mL [facility] Urine Barbiturates Screen Negative < 200 ng/m L [facility] Urine Drug Screen Comment [facility] Comment on above: CONFIRMATORY TESTING FOR ALL POSITIVE URINE DRUG SCREENRESULTS WILL ONLY BE SENT OUT UPON PHYSICIAN ORDER. VISTA Urine Drug Screen methods provide only preliminaryanalytical test results. A more specific alternate chemicalmethod must be used in order to obtain a confirmedanalytical result. Gas chromatography/mass spectrometery(GC/MS) is the preferred confirmatory method. Clinicalconsideration and professional judgement should be appliedto any drug of abuse test result, particularly whenpreliminary positive results are used. URINE TCA TESTING MUST BE ORDERED SEPARATELY. USE TESTMNEMONIC: [facility] Urine Methadone Screen Negative < 300 ng/mL [facility] Urine phencyclidine (PCP) de tectionOrdered By: Alejandro Gray on 09-03-2023 Phencyclidine Ql (U) Negative < 25 ng/mL [facility] Absolute lymphocyte countOrd ered By: Dr. Guillen on 02-15-2023 Lymphocytes Auto (Unsp spec) [#/Vol] 2.26 10*3/uL 0.83-4.51 [facility] Basophil percentageOrdered B y: Dr. Guillen on 02-15-2023 Basophil percentage 0 SEEN /hpf 0-5 [facility] Lactate [Moles/Vol] 1.3 mmol/L 0.4-2.0 [facility] Basophils/100 WBC (Bld) 0.7 % 0-1 [facility] Bilirubin [Mass/Vol] 0.40 mg/dL 0.20-1.00 [facility] Comment on above: For patients on eltr ombopag therapy, use of Dimension [place] TBIL is not recommended. Chloride [Moles/Vol] 103 mmol/L 98-107 [facility] Eosinophils/100 WBC (Bld) 3.2 % 0-5 [facility] Glucose [Mass/Vol] 151 mg/dL 74-[address] [facility] Comment on above: Fasting Glucose resu lt greater than or equal to 126 mg/dL suggests DIABETES MELLITUS per A.D.A. criteria. Neutrophils (Bld) [#/Vol] 5.9 10*3/uL 2.0-7.7 [facility] Neutrophils/100 WBC (Bld) 64.2 % 47-70 [facility] Potassium [Moles/Vol] 3.9 mmol/L 3.5-5.1 [facility] Protein [Mass/Vol] 7.8 g/dL 6.4-8.[address] [facility] Sodium [Moles/Vol] 140 mmol/L 136-[address] [facility] WBC (Bld) [#/Vol] 9.1 10*3/uL 4.4-11.[address] [facility] Bilirubin Test strip Ql (U)O rdered By: Dr. Guillen on 02-15-2023 Bilirubin Ql (U) Negative Negative [facility] Blood erythrocytes count (nu mber/volume)Ordered By: Dr. Guillen on 02-15-2023 RBC (Bld) [#/Vol] 5.36 10*6/uL 4.6-6.2 [facility] Blood hemoglobin measurement (mass/volume)Ordered By: Dr. Guillen on 02-15-2023 Hemoglobin (Bld) [Mass/Vol] 15.3 g/dL 13.0-16.5 [facility] Blood lymphocytes/100 leukoc ytesOrdered By: Dr. Guillen on 02-15-2023 Lymphocytes/100 WBC (Bld) 24.8 % 19-41 [facility] Blood monocytes/100 leukocyt esOrdered By: Dr. Guillen on 02-15-2023 Monocytes/100 WBC (Bld) 6.4 % 0-10 [facility] Blood platelet mean volumeOr dered By: Dr. Guillen on 02-15-2023 Platelet mean volume (Bld) [Entitic vol] 11.1 fL 6.2-12.0 [facility] Determination of erythrocyte mean corpuscular volume (MCV)Ordered By: Dr. Guillen on 02-15-2023 MCV (RBC) [Entitic vol] 87.9 fL 80-94 [facility] Hematocrit Auto (Bld) [Volum e fraction]Ordered By: Dr. Guillen on 02-15-2023 Hematocrit (Bld) [Volume fraction] 47.1 % 40-54 [facility] Ketones Test strip Ql (U)Ord ered By: Dr. Guillen on 02-15-2023 Ketones Ql (U) Negative Negative [facility] Laboratory - Chemistry and C hemistry - challengeOrdered By: Dr. Guillen on 02-15-2023 ALP [Catalytic activity/Vol] 96 U/L 45-117 [facility] ALT [Catalytic activity/Vol] 48 U/L 16-61 [facility] CO2 [Moles/Vol] 28.0 mmol/L 21.0-32.0 [facility] Globulin (S) [Mass/Vol] 4.4 g/dL 2.2-4.2 [facility] Lipase [Catalytic activity/Vol] 26 U/L 13-75 [facility] Comment on above: Please note:LIPASE r evised reference range effective 22. New Lipase methodology. Expected to produce lower values than the previous assay method. NEW Reference Range: 13 - 75 U/L Urea nitrogen/Creatinine [Mass ratio] 21.9 mg/mg 10-20 [facility] Laboratory - Hematology and Cell countsOrdered By: Dr. Guillen on 02-15-2023 Erythrocyte distribution width (RBC) [Entitic vol] 48.9 fL 35.1-43.[address] [facility] Erythrocyte distribution width (RBC) [Ratio] 15.5 % 11.6-14.6 [facility] Immature granulocytes/100 WBC (Bld) 0.700 % 0.0-0.9 [facility] Comment on above: IG% - Immature Granu locytes (promyelocytes, myelocytes and metamyelocytes) > 1% indicates that a LEFT SHIFT is Present. MCH (RBC) [Entitic mass] 28.5 pg 27.0-32.0 [facility] Nucleated RBC/100 WBC (Bld) [Ratio] 0 % 0-5 [facility] MCHC Auto (RBC) [Mass/Vol]Or dered By: Dr. Guillen on 02-15-2023 MCHC (RBC) [Mass/Vol] 32.5 g/dL 32-36 [facility] Mucus LM Ql (Urine sed)Order ed By: Dr. Guillen on 02-15-2023 Mucus Ql (Urine sed) 0 SEEN /hpf [facility] Nitrite Test strip Ql (U)Ord ered By: Dr. Guillen on 02-15-2023 Nitrite Ql (U) Negative Negative [facility] No Panel InformationOrdered By: Dr. Guillen on 02-15-2023 Estimated Creatinine Clearance Calc 114.89 ml/min [facility] Estimated GFR (MDRD) Amer 154 mL/min >60 [facility] Comment on above: GFR Calc Estimated GFR (MDRD) Non-Af Amer 127 mL/min >60 [facility] Comment on above: Non- GFR Calc Platelets bldOrdered By: Dr. Guillen on 02-15-2023 Platelets (Bld) [#/Vol] 196 10*3/uL 150-450 [facility] Protein Test strip Ql (U)Ord ered By: Dr. Guillen on 02-15-2023 Protein Ql (U) Negative Negative [facility] Serum or plasma albumin gloria urement (mass/volume)Ordered By: Dr. Guillen on 02-15-2023 Albumin [Mass/Vol] 3.4 g/dL 3.2-5.[address] [facility] Serum or plasma albumin/glob ulin mass ratioOrdered By: Dr. Guillen on 02-15-2023 Albumin/Globulin [Mass ratio] 0.8 {ratio} 0.9-2.4 [facility] Serum or plasma calcium gloria urement (mass/volume)Ordered By: Dr. Guillen on 02-15-2023 Calcium [Mass/Vol] 8.8 mg/dL 8.5-10.[address] [facility] Serum or plasma creatinine m easurement (mass/volume)Ordered By: Dr. Guillen on 02-15-2023 Creatinine [Mass/Vol] 0.73 mg/dL 0.70-1.30 [facility] Comment on above: The validity of the calculated GFR & GFRAA in patients over 70 years has not been determined. Clinical correlation is essential. Serum or plasma urea nitroge n measurement (mass/volume)Ordered By: Dr. Guillen on 02-15-2023 Urea nitrogen [Mass/Vol] 16 mg/dL 7-18 [facility] Squamous epithelial cells de tection in urine sediment by light microscopyOrdered By: Dr. Guillen on 02-15-2023 Epithelial cells.squamous LM Ql (Urine sed) 0 SEEN /hpf 0-5 [facility] Thin prep Papanicolaou smear with manual screeningOrdered By: Dr. Guillen on 02-15-2023 Thin prep Papanicolaou smear with manual screening 24 U/L 15-37 [facility] Thin prep Papanicolaou smear with manual screening 9 5-15 [facility] Urine blood detectionOrdered By: Dr. Guillen on 02-15-2023 RBC Ql (U) Negative Negative [facility] RBC Ql (U) 0 SEEN /hpf 0-5 [facility] Urine clarityOrdered By: Dr. Guillen on 02-15-2023 Clarity (U) Clear Clear [facility] Urine color determinationOrd ered By: Dr. Guillen on 02-15-2023 Color (U) Yellow Yellow [facility] Urine glucose detectionOrder ed By: Dr. Guillen on 02-15-2023 Glucose Ql (U) 1000 mg/dl Normal [facility] Urine leukocyte esterase det ection by dipstickOrdered By: Dr. Guillen on 02-15-2023 Leukocyte esterase Test strip Ql (U) Negative Negative [facility] Urine pHOrdered By: Dr. Kai conklin on 02-15-2023 pH (U) 8.0 [pH] 5.0 - 8.0 [facility] Urine sediment bacteria coun t by microscopy (number/high power field)Ordered By: Dr. Guillen on 02-15-2023 Bacteria LM.HPF (Urine sed) [#/Area] 0 /[HPF] None Seen [facility] Urine specific gravity measu rementOrdered By: Dr. Guillen on 02-15-2023 Specific gravity (U) [Rel density] 1.015 1.002-1.030 [facility] Urobilinogen Auto test strip Ql (U)Ordered By: Dr. Guillen on 02-15-2023 Urobilinogen Ql (U) Normal mg/dl Normal [facility] Basophil percentageOrdered B y: Dr. Roman on 01-30-2023 Bilirubin [Mass/Vol] 0.40 mg/dL 0.20-1.00 [facility] Comment on above: For patients on eltr ombopag therapy, use of Dimension [place] TBIL is not recommended. Chloride [Moles/Vol] 104 mmol/L 98-107 [facility] Cholesterol [Mass/Vol] 180 mg/dL <200 [facility] Comment on above: <200 mg/dL Desirable 200-240 mg/dL Borderline >240 mg/dL High Risk Glucose [Mass/Vol] 177 mg/dL 74-[address] [facility] Comment on above: Fasting Glucose resu lt greater than or equal to 126 mg/dL suggests DIABETES MELLITUS per A.D.A. criteria. Potassium [Moles/Vol] 4.0 mmol/L 3.5-5.1 [facility] Protein [Mass/Vol] 7.4 g/dL 6.4-8.[address] [facility] Sodium [Moles/Vol] 138 mmol/L 136-[address] [facility] Triglyceride [Mass/Vol] 304 mg/dL <199 [facility] Comment on above: The drugs N-Acetylcy steine and Metamizole may falsely depress this assay.Serum Triglycerides Reference Interval Normal <150 mg/dL Borderline high 150 - 199 mg/dL High 200 - 499 mg/dL Very High > or = 500 mg/dL Laboratory - Chemistry and C hemistry - challengeOrdered By: Dr. Roman on 01-30-2023 ALP [Catalytic activity/Vol] 86 U/L 45-117 [facility] ALT [Catalytic activity/Vol] 42 U/L 16-61 [facility] CO2 [Moles/Vol] 26.0 mmol/L 21.0-32.0 [facility] Globulin (S) [Mass/Vol] 4.2 g/dL 2.2-4.2 [facility] Urea nitrogen/Creatinine [Mass ratio] 21.0 mg/mg 10-20 [facility] No Panel InformationOrdered By: Dr. Roman on 01-30-2023 Estimated GFR (MDRD) Amer 171 mL/min >60 [facility] Comment on above: GFR Calc Estimated GFR (MDRD) Non-Af Amer 142 mL/min >60 [facility] Comment on above: Non- GFR Calc Serum or plasma albumin gloria urement (mass/volume)Ordered By: Dr. Roman on 01-30-2023 Albumin [Mass/Vol] 3.2 g/dL 3.2-5.[address] [facility] Serum or plasma albumin/glob ulin mass ratioOrdered By: Dr. Roman on 01-30-2023 Albumin/Globulin [Mass ratio] 0.8 {ratio} 0.9-2.4 [facility] Serum or plasma calcium gloria urement (mass/volume)Ordered By: Dr. Roman on 01-30-2023 Calcium [Mass/Vol] 8.5 mg/dL 8.5-10.[address] [facility] Serum or plasma cholesterol in HDL measurement (mass/volume)Ordered By: Dr. Roman on 01-30-2023 Cholesterol in HDL [Mass/Vol] 37 mg/dL >40 [facility] Comment on above: The drugs N-Acetylcy steine and Metamizole may falsely depress this assay. Reference Range HDL <40 mg/dL Low HDL Cholesterol HDL >or= 60 mg/dL High HDL Cholesterol Serum or plasma cholesterol in VLDL measurement (mass/volume)Ordered By: Dr. Roman on 01-30-2023 Cholesterol in VLDL [Mass/Vol] 61 mg/dL 5-40 [facility] Serum or plasma creatinine m easurement (mass/volume)Ordered By: Dr. Roman on 01-30-2023 Creatinine [Mass/Vol] 0.67 mg/dL 0.70-1.30 [facility] Comment on above: The validity of the calculated GFR & GFRAA in patients over 70 years has not been determined. Clinical correlation is essential. Serum or plasma low density lipoprotein (LDL) cholesterol measurement (mass/volume)Ordered By: Dr. Roman on 01-30-2023 Cholesterol in LDL [Mass/Vol] 82 mg/dL 0-130 [facility] Serum or plasma urea nitroge n measurement (mass/volume)Ordered By: Dr. Roman on 01-30-2023 Urea nitrogen [Mass/Vol] 14 mg/dL 7-18 [facility] Thin prep Papanicolaou smear with manual screeningOrdered By: Dr. Roman on 01-30-2023 Thin prep Papanicolaou smear with manual screening 28 U/L 15-37 [facility] Thin prep Papanicolaou smear with manual screening 8 5-15 [facility] Absolute lymphocyte counton 02-14-2022 Lymphocytes Auto (Unsp spec) [#/Vol] 0.88 10*3/uL 0.83-4.51 [facility] Work Phone: Basophil percentageon 2021 Lactate [Moles/Vol] 1.7 mmol/L 0.4-2.0 [facility] Work Phone: Bilirubin [Mass/Vol] 0.50 mg/dL 0.20-1.00 [facility] Work Phone: Comment on above: For patients on eltr ombopag therapy, use of [employer] [place] TBIL is not recommended. Chloride [Moles/Vol] 105 mmol/L 98-107 [facility] Work Phone: Glucose [Mass/Vol] 198 mg/dL 74-[address] [facility] Work Phone: Comment on above: Fasting Glucose resu lt greater than or equal to 126 mg/dL suggests DIABETES MELLITUS per A.D.A. criteria. Potassium [Moles/Vol] 3.8 mmol/L 3.5-5.1 [facility] Work Phone: Protein [Mass/Vol] 8.0 g/dL 6.4-8.[address] [facility] Work Phone: Sodium [Moles/Vol] 139 mmol/L 136-[address] [facility] Work Phone: Basophil percentage 0 SEEN /hpf 0-5 [facility] Work Phone: [phone] Basophils/100 WBC (Bld) 0.4 % 0-1 [facility] Work Phone: Eosinophils/100 WBC (Bld) 1.2 % 0-5 [facility] Work Phone: [phone] Neutrophils (Bld) [#/Vol] 9.8 10*3/uL 2.0-7.7 [facility] Work Phone: Neutrophils/100 WBC (Bld) 85.1 % 47-70 [facility] Work Phone: [phone] WBC (Bld) [#/Vol] 11.6 10*3/uL 4.4-11.0 [facility] Work Phone: Bilirubin Test strip Ql (U)o n 02-14-2022 Bilirubin Ql (U) Negative Negative [facility] Work Phone: Blood erythrocytes count (nu mber/volume)on 02-14-2022 RBC (Bld) [#/Vol] 5.04 10*6/uL 4.6-6.2 [facility] Work Phone: Blood hemoglobin measurement (mass/volume)on 02-14-2022 Hemoglobin (Bld) [Mass/Vol] 14.8 g/dL 13.0-16.5 [facility] Work Phone: Blood lymphocytes/100 leukoc yteson 02-14-2022 Lymphocytes/100 WBC (Bld) 7.6 % 19-41 [facility] Work Phone: [phone] Blood monocytes/100 leukocyt eson 02-14-2022 Monocytes/100 WBC (Bld) 4.8 % 0-10 [facility] Work Phone: Blood platelet mean volumeon 02-14-2022 Platelet mean volume (Bld) [Entitic vol] 11.0 fL 6.2-12.0 [facility] Work Phone: Determination of erythrocyte mean corpuscular volume (MCV)on 02-14-2022 MCV (RBC) [Entitic vol] 90.5 fL 80-94 [facility] Work Phone: Hematocrit Auto (Bld) [Volum e fraction]on 02-14-2022 Hematocrit (Bld) [Volume fraction] 45.6 % 40-54 [facility] Work Phone: INR in Blood by Coagulation assayon 02-14-2022 INR Coag (Bld) [Relative time] 1.0 {INR} [facility] Work Phone: Ketones Test strip Ql (U)on 02-14-2022 Ketones Ql (U) Negative Negative [facility] Work Phone: Laboratory - Chemistry and C hemistry - challengeon 02-14-2022 ALP [Catalytic activity/Vol] 96 U/L 45-117 [facility] Work Phone: ALT [Catalytic activity/Vol] 42 U/L 16-61 [facility] Work Phone: CO2 [Moles/Vol] 27.0 mmol/L 21.0-32.0 [facility] Work Phone: Globulin (S) [Mass/Vol] 4.5 g/dL 2.2-4.2 [facility] Work Phone: Urea nitrogen/Creatinine [Mass ratio] 17.0 mg/mg 10-20 [facility] Work Phone: Laboratory - Coagulationon 0 02-14-2022 aPTT Coag (Bld) [Time] 27.7 s 24.1-36.2 reji [facility] Work Phone: PT Coag (PPP) [Time] 13.3 s 11.7-14.[address] [facility] Work Phone: Laboratory - Hematology and Cell countson 02-14-2022 Erythrocyte distribution width (RBC) [Entitic vol] 49.9 fL 35.1-43.9 [facility] r [facility] Work Phone: Erythrocyte distribution width (RBC) [Ratio] 15.2 % 11.6-14.6 [facility] Work Phone: Immature granulocytes/100 WBC (Bld) 0.900 % 0.0-0.9 [facility] Work Phone: Comment on above: IG% - Immature Granu locytes (promyelocytes, myelocytes and metamyelocytes) > 1% indicates that a LEFT SHIFT is Present. MCH (RBC) [Entitic mass] 29.4 pg 27.0-32.0 [facility] Work Phone: Nucleated RBC/100 WBC (Bld) [Ratio] 0 % 0-5 [facility] Work Phone: MCHC Auto (RBC) [Mass/Vol]on 02-14-2022 MCHC (RBC) [Mass/Vol] 32.5 g/dL 32-36 [facility] Work Phone: Mucus LM Ql (Urine sed)on Mucus Ql (Urine sed) 0 SEEN /hpf [facility] Work Phone: Nitrite Test strip Ql (U)on 02-14-2022 Nitrite Ql (U) Negative Negative [facility] Work Phone: No Panel Informationon 02-14 Estimated Creatinine Clearance Calc 103.28 ml/min [facility] Work Phone: Estimated GFR (MDRD) Amer 134 mL/min >60 [facility] Work Phone: Comment on above: GFR Calc Estimated GFR (MDRD) Non-Af Amer 111 mL/min >60 [facility] Work Phone: Comment on above: Non- GFR Calc Platelets bldon 02-14-2022 Platelets (Bld) [#/Vol] 200 10*3/uL 150-450 [facility] Work Phone: Protein Test strip Ql (U)on 02-14-2022 Protein Ql (U) 15 mg/dl Negative [facility] Work Phone: Serum or plasma albumin gloria urement (mass/volume)on 02-14-2022 Albumin [Mass/Vol] 3.5 g/dL 3.2-5.[address] [facility] Work Phone: Serum or plasma albumin/glob ulin mass ratioon 02-14-2022 Albumin/Globulin [Mass ratio] 0.8 {ratio} 0.9-2.4 [facility] Work Phone: Serum or plasma calcium gloria urement (mass/volume)on 02-14-2022 Calcium [Mass/Vol] 8.8 mg/dL 8.5-10.[address] [facility] Work Phone: Serum or plasma creatinine m easurement (mass/volume)on 02-14-2022 Creatinine [Mass/Vol] 0.82 mg/dL 0.70-1.30 [facility] Work Phone: Comment on above: The validity of the calculated GFR & GFRAA in patients over 70 years has not been determined. Clinical correlation is essential. Serum or plasma urea nitroge n measurement (mass/volume)on 02-14-2022 Urea nitrogen [Mass/Vol] 14 mg/dL 7-18 [facility] Work Phone: Squamous epithelial cells de tection in urine sediment by light microscopyon 02-14-2022 Epithelial cells.squamous LM Ql (Urine sed) 0 SEEN /hpf 0-5 [facility] Work Phone: Thin prep Papanicolaou smear with manual screeningon 02-14-2022 Thin prep Papanicolaou smear with manual screening 26 U/L 15-37 [facility] Work Phone: Thin prep Papanicolaou smear with manual screening 7 5-15 [facility] Work Phone: Urine blood detectionon 01-23 RBC Ql (U) Negative Negative [facility] Work Phone: RBC Ql (U) 0 SEEN /hpf 0-5 [facility] Work Phone: Urine clarityon 02-14-2022 Clarity (U) Clear Clear [facility] Work Phone: Urine color determinationon 02-14-2022 Color (U) Yellow Yellow [facility] Work Phone: Urine glucose detectionon Glucose Ql (U) 100 mg/dl Normal [facility] Work Phone: Urine leukocyte esterase det ection by dipstickon 02-14-2022 Leukocyte esterase Test strip Ql (U) Negative Negative [facility] Work Phone: Urine pHon 02-14-2022 pH (U) 6.0 [pH] 5.0 - 8.0 [facility] Work Phone: Urine sediment bacteria coun t by microscopy (number/high power field)on 02-14-2022 Bacteria LM.HPF (Urine sed) [#/Area] 0 /[HPF] None Seen [facility] Work Phone: Urine specific gravity measu rementon 02-14-2022 Specific gravity (U) [Rel density] 1.010 1.002-1.030 [facility] Work Phone: Urobilinogen Auto test strip Ql (U)on 02-14-2022 Urobilinogen Ql (U) Normal mg/dl Normal [facility] Work Phone: Culture, urine Bacteria identified Cx Nom (U) Proteus mirabilis [facility] Work Phone: Laboratory - Microbiology an d Antimicrobial susceptibility Bacteria identified Cx Nom (Bld) No growth in 5 days. [facility] Work Phone: No Panel Information SARS-CoV-2 & FLU Antigen (Rapid) [facility] Work Phone: Vital Signs Date Time Vital Sign Value Performing Clinician Faci lity 02-06-2025 13:03-0400 Body height 162.[address] Aliza Roman MD Work Phone: [facility] 02-06-2025 13:03-0400 Body mass index (BMI) [Ratio] 61.1 kg/m2 Dr. Aliza Roman MD Work Phone: [facility] 02-06-2025 13:03-0400 Body weight 161.[address] Aliza Roman MD Work Phone: [facility] 02-06-2025 13:03-0400 Diastolic blood pressure 85 mm[Hg] Dr. Aliza Roman MD Work Phone: [facility] 02-06-2025 13:03-0400 Heart rate 85 /min Dr. Aliza Roman MD Work Phone: [facility] 02-06-2025 13:03-0400 SaO2% (BldA) [Mass fraction] 93 % Dr. Aliza Roman MD Work Phone: [facility] 02-06-2025 13:03-0400 Systolic blood pressure 140 mm[Hg] Dr. Aliza Roman MD Work Phone: [facility] 01-23-2025 08:20-0400 Body mass index (BMI) [Ratio] 60.4 kg/m2 Dr. Aliza Roman MD Work Phone: [facility] 01-23-2025 08:20-0400 Body temperature 97.8 [degF] Dr. Aliza Roman MD Work Phone: [facility] 01-23-2025 08:20-0400 Body weight 159.[address] Aliza Roman MD Work Phone: [facility] 01-23-2025 08:20-0400 Diastolic blood pressure 70 mm[Hg] Dr. Aliza Roman MD Work Phone: [facility] 01-23-2025 08:20-0400 Heart rate 84 /min Dr. Aliza Roman MD Work Phone: [facility] 01-23-2025 08:20-0400 Inhaled oxygen flow rate 2 L/min Dr. Aliza Roman MD Work Phone: [facility] 01-23-2025 08:20-0400 Respiratory rate 22 /min Dr. Aliza Roman MD Work Phone: [facility] 01-23-2025 08:20-0400 SaO2% (BldA) [Mass fraction] 95 % Dr. Aliza Roman MD Work Phone: [facility] 01-23-2025 08:20-0400 Systolic blood pressure 118 mm[Hg] Dr. Aliza Roman MD Work Phone: [facility] 01-09-2025 09:00-0400 Body temperature 98 [degF] Dr. Aliza Roman MD Work Phone: [facility] 01-09-2025 09:00-0400 Diastolic blood pressure 87 mm[Hg] Dr. Aliza Roman MD Work Phone: [facility] 01-09-2025 09:00-0400 Heart rate 85 /min Dr. Aliza Roman MD Work Phone: [facility] 01-09-2025 09:00-0400 Respiratory rate 16 /min Dr. Aliza Roman MD Work Phone: [facility] 01-09-2025 09:00-0400 SaO2% (BldA) [Mass fraction] 98 % Dr. Aliza Roman MD Work Phone: [facility] 01-09-2025 09:00-0400 Systolic blood pressure 154 mm[Hg] Dr. Aliza Roman MD Work Phone: [facility] 01-09-2025 08:35-0400 Body temperature 98 [degF] Dr. Aliza Roman MD Work Phone: [facility] 01-09-2025 08:35-0400 Diastolic blood pressure 87 mm[Hg] Dr. lAiza Roman MD Work Phone: [facility] 01-09-2025 08:35-0400 Heart rate 85 /min Dr. Aliza Roman MD Work Phone: [facility] 01-09-2025 08:35-0400 Respiratory rate 16 /min Dr. Aliza Roman MD Work Phone: [facility] 01-09-2025 08:35-0400 SaO2% (BldA) [Mass fraction] 96 % Dr. Aliza Roman MD Work Phone: [facility] 01-09-2025 08:35-0400 Systolic blood pressure 154 mm[Hg] Dr. Aliza Roman MD Work Phone: [facility] 01-09-2025 06:48-0400 Body height 162.[address] Aliza Roman MD Work Phone: [facility] 01-09-2025 06:48-0400 Body mass index (BMI) [Ratio] 60.1 kg/m2 Dr. Aliza Roman MD Work Phone: [phone] [place] [address] 01-09-2025 06:48-0400 Body weight [address] Aliza Roman MD Work Phone: [facility] 12-19-2024 13:26-0400 Body mass index (BMI) [Ratio] 59.7 kg/m2 Dr. Aliza Roman MD Work Phone: [facility] 12-19-2024 13:26-0400 Body weight 157.[address] Aliza Roman MD Work Phone: [facility] 12-19-2024 13:26-0400 Diastolic blood pressure 82 mm[Hg] Dr. Aliza Roman MD Work Phone: [facility] 12-19-2024 13:26-0400 Heart rate 81 /min Dr. Aliza Roman MD Work Phone: [facility] 12-19-2024 13:26-0400 SaO2% (BldA) [Mass fraction] 93 % Dr. Aliza Roman MD Work Phone: [facility] 12-19-2024 13:26-0400 Systolic blood pressure 141 mm[Hg] Dr. Aliza Roman MD Work Phone: [facility] 11-27-2024 13:21-0400 Body temperature 98.4 [degF] Dr. Aliza Roman MD Work Phone: [facility] 11-27-2024 13:21-0400 Diastolic blood pressure 69 mm[Hg] Dr. Aliza Roman MD Work Phone: [facility] 11-27-2024 13:21-0400 Heart rate 81 /min Dr. Aliza Roman MD Work Phone: [facility] 11-27-2024 13:21-0400 Respiratory rate 16 /min Dr. Aliza Roman MD Work Phone: [facility] 11-27-2024 13:21-0400 SaO2% (BldA) [Mass fraction] 94 % Dr. Aliza Roman MD Work Phone: [facility] 11-27-2024 13:21-0400 Systolic blood pressure 131 mm[Hg] Dr. Aliza Roman MD Work Phone: [facility] 11-27-2024 11:01-0400 Body height 162.[address] Aliza Roman MD Work Phone: [facility] 11-27-2024 11:01-0400 Body mass index (BMI) [Ratio] 60.9 kg/m2 Dr. Aliza Roman MD Work Phone: [facility] 11-27-2024 11:01-0400 Body weight [address] Aliza Roman MD Work Phone: [facility] 10-28-2024 12:49-0500 Body height 162.[address] Aliza Roman MD Work Phone: [facility] 10-28-2024 12:49-0500 Body temperature 98.1 [degF] Dr. Aliza Roman MD Work Phone: [facility] 10-28-2024 12:49-0500 Diastolic blood pressure 102 mm[Hg] Dr. Aliza Roman MD Work Phone: [facility] 10-28-2024 12:49-0500 Heart rate 105 /min Dr. Aliza Roman MD Work Phone: [facility] 10-28-2024 12:49-0500 Respiratory rate 16 /min Dr. Aliza Roman MD Work Phone: [facility] 10-28-2024 12:49-0500 SaO2% (BldA) [Mass fraction] 94 % Dr. Aliza Roman MD Work Phone: [facility] 10-28-2024 12:49-0500 Systolic blood pressure 153 mm[Hg] Dr. Aliza Roman MD Work Phone: [facility] 08-29-2024 13:50-0500 Diastolic blood pressure 105 mm[Hg] Dr. Aliza Roman MD Work Phone: [facility] 08-29-2024 13:50-0500 Systolic blood pressure 167 mm[Hg] Dr. Aliza Roman MD Work Phone: [facility] 08-29-2024 11:34-0500 Body temperature 98.1 [degF] Dr. Aliza Roman MD Work Phone: [facility] 08-29-2024 11:34-0500 Heart rate 96 /min Dr. Aliza Roman MD Work Phone: [facility] 08-29-2024 11:34-0500 Respiratory rate 16 /min Dr. Aliza Roman MD Work Phone: [facility] 08-29-2024 11:34-0500 SaO2% (BldA) [Mass fraction] 96 % Dr. Aliza Roman MD Work Phone: [facility] 08-29-2024 10:14-0500 Body mass index (BMI) [Ratio] 57.6 kg/m2 Dr. Aliza Roman MD Work Phone: [facility] 08-29-2024 10:14-0500 Body weight 152.[address] Aliza Roman MD Work Phone: [facility] 12-23-2023 22:37-0400 Body temperature 98.5 [degF] Dr. Aliza Roman Work Phone: [facility] 12-23-2023 22:37-0400 Diastolic blood pressure 76 mm[Hg] Dr. Aliza Roman Work Phone: [facility] 12-23-2023 22:37-0400 Heart rate 76 /min Dr. Aliza Roman Work Phone: [facility] 12-23-2023 22:37-0400 Respiratory rate 18 /min Dr. Aliza Roman Work Phone: [facility] 12-23-2023 22:37-0400 SaO2% (BldA) [Mass fraction] 94 % Dr. Aliza Roman Work Phone: [facility] 12-23-2023 22:37-0400 Systolic blood pressure 126 mm[Hg] Dr. Aliza Roman Work Phone: [facility] 12-23-2023 19:06-0400 Body mass index (BMI) [Ratio] 60 kg/m2 Dr. Aliza Roman Work Phone: [facility] 12-23-2023 19:06-0400 Body weight 158.[address] Aliza Roman Work Phone: [facility] 12-23-2023 17:08-0400 Body height 162.[address] Aliza Roman Work Phone: [facility] 12-19-2023 00:54-0400 Diastolic blood pressure 96 mm[Hg] Dr. Aliza Roman Work Phone: [facility] 12-19-2023 00:54-0400 Heart rate 99 /min Dr. Aliza Roman Work Phone: [facility] 12-19-2023 00:54-0400 Respiratory rate 20 /min Dr. Aliza Roman Work Phone: [facility] 12-19-2023 00:54-0400 SaO2% (BldA) [Mass fraction] 91 % Dr. Aliza Roman Work Phone: [facility] 12-19-2023 00:54-0400 Systolic blood pressure 128 mm[Hg] Dr. Aliza Roman Work Phone: [facility] 12-18-2023 22:28-0400 Body height 162.[address] Aliza Roman Work Phone: [facility] 12-18-2023 22:28-0400 Body mass index (BMI) [Ratio] 58.1 kg/m2 Dr. Aliza Roman Work Phone: [facility] 12-18-2023 22:28-0400 Body temperature 98.4 [degF] Dr. Aliza Roman Work Phone: [facility] 12-18-2023 22:28-0400 Body weight 153.[address] Aliza Roman Work Phone: [facility] 12-05-2023 14:42-0400 Body temperature 97.9 [degF] Dr. Aliza Roman Work Phone: [facility] 12-05-2023 14:42-0400 Diastolic blood pressure 84 mm[Hg] Dr. Aliza Roman Work Phone: [facility] 12-05-2023 14:42-0400 Heart rate 86 /min Dr. Aliza Roman Work Phone: [facility] 12-05-2023 14:42-0400 Respiratory rate 20 /min Dr. Aliza Roman Work Phone: [facility] 12-05-2023 14:42-0400 SaO2% (BldA) [Mass fraction] 95 % Dr. Aliza Roman Work Phone: [facility] 12-05-2023 14:42-0400 Systolic blood pressure 162 mm[Hg] Dr. Aliza Roman Work Phone: [facility] 12-05-2023 11:03-0400 Body height 162.[address] Aliza Roman Work Phone: [facility] 11-23-2023 08:19-0400 Body mass index (BMI) [Ratio] 56.9 kg/m2 Dr. Aliza Roman Work Phone: [facility] 11-23-2023 08:19-0400 Body temperature 97.5 [degF] Dr. Aliza Roman Work Phone: [facility] 11-23-2023 08:19-0400 Body weight 150.[address] Aliza Roman Work Phone: [facility] 11-23-2023 08:19-0400 Diastolic blood pressure 83 mm[Hg] Dr. Aliza Roman Work Phone: [facility] 11-23-2023 08:19-0400 Heart rate 96 /min Dr. Aliza Roman Work Phone: [facility] 11-23-2023 08:19-0400 Inhaled oxygen flow rate 2 L/min Dr. Aliza Roman Work Phone: [facility] 11-23-2023 08:19-0400 Respiratory rate 20 /min Dr. Aliza Roman Work Phone: [facility] 11-23-2023 08:19-0400 SaO2% (BldA) [Mass fraction] 94 % Dr. Aliza Roman Work Phone: [facility] 11-23-2023 08:19-0400 Systolic blood pressure 131 mm[Hg] Dr. Aliza Roman Work Phone: [facility] 08-31-2023 10:46-0500 Body height 162.[address] Aliza Roman Work Phone: [facility] 08-31-2023 10:46-0500 Body mass index (BMI) [Ratio] 58.7 kg/m2 Dr. Aliza Roman Work Phone: [facility] 08-31-2023 10:46-0500 Body weight 155.[address] Aliza Roman Work Phone: [facility] 07-23-2023 06:22-0500 Body mass index (BMI) [Ratio] 57.3 kg/m2 Dr. Aliza Roman Work Phone: [facility] 07-23-2023 06:22-0500 Body temperature 97.3 [degF] Dr. Aliza Roman Work Phone: [facility] 07-23-2023 06:22-0500 Body weight 151.[address] Aliza Roman Work Phone: [facility] 07-23-2023 06:22-0500 Diastolic blood pressure 82 mm[Hg] Dr. Aliza Roman Work Phone: [facility] 07-23-2023 06:22-0500 Heart rate 105 /min Dr. Aliza Roman Work Phone: [facility] 07-23-2023 06:22-0500 Respiratory rate 18 /min Dr. Aliza Roman Work Phone: [facility] 07-23-2023 06:22-0500 SaO2% (BldA) [Mass fraction] 93 % Dr. Aliza Roman Work Phone: [facility] 07-23-2023 06:22-0500 Systolic blood pressure 130 mm[Hg] Dr. Aliza Roman Work Phone: [facility] 02-15-2023 10:05-0400 Body height 162.[address] Aliza Roman Work Phone: [facility] 02-15-2023 10:05-0400 Body mass index (BMI) [Ratio] 57.4 kg/m2 Dr. Aliza Roman Work Phone: [facility] 02-15-2023 10:05-0400 Body temperature 97.9 [degF] Dr. Aliza Roman Work Phone: [facility] 02-15-2023 10:05-0400 Body weight 151.[address] Aliza Roman Work Phone: [facility] 02-15-2023 10:05-0400 Diastolic blood pressure 95 mm[Hg] Dr. Aliza Roman Work Phone: [facility] 02-15-2023 10:05-0400 Heart rate 96 /min Dr. Aliza Roman Work Phone: [facility] 02-15-2023 10:05-0400 Respiratory rate 16 /min Dr. Aliza Roman Work Phone: [facility] 02-15-2023 10:05-0400 SaO2% (BldA) [Mass fraction] 94 % Dr. Aliza Roman Work Phone: [facility] 02-15-2023 10:05-0400 Systolic blood pressure 135 mm[Hg] Dr. Aliza Roman Work Phone: [facility] 01-13-2023 13:03-0400 Body height 162.[address] Aliza Roman Work Phone: [facility] 01-13-2023 13:03-0400 Body temperature 98 [degF] Dr. Aliza Roman Work Phone: [facility] 01-13-2023 13:03-0400 Diastolic blood pressure 95 mm[Hg] Dr. Aliza Roman Work Phone: [facility] 01-13-2023 13:03-0400 Heart rate 100 /min Dr. Aliza Roman Work Phone: [facility] 01-13-2023 13:03-0400 Respiratory rate 16 /min Dr. Aliza Roman Work Phone: [facility] 01-13-2023 13:03-0400 SaO2% (BldA) [Mass fraction] 96 % Dr. Aliza Roman Work Phone: [facility] 01-13-2023 13:03-0400 Systolic blood pressure 152 mm[Hg] Dr. Aliza Roman Work Phone: [facility] 01-05-2023 07:46-0400 Body mass index (BMI) [Ratio] 56.8 kg/m2 Dr. Aliza Roman Work Phone: [facility] 01-05-2023 07:46-0400 Body temperature 97.6 [degF] Dr. Aliza Roman Work Phone: [facility] 01-05-2023 07:46-0400 Body weight 150.[address] Aliza Roman Work Phone: [facility] 01-05-2023 07:46-0400 Diastolic blood pressure 84 mm[Hg] Dr. Aliza Roman Work Phone: [facility] 01-05-2023 07:46-0400 Heart rate 106 /min Dr. Aliza Roman Work Phone: [facility] 01-05-2023 07:46-0400 Inhaled oxygen flow rate 2 L/min Dr. Aliza Roman Work Phone: [facility] 01-05-2023 07:46-0400 Respiratory rate 18 /min Dr. Aliza Roman Work Phone: [facility] 01-05-2023 07:46-0400 SaO2% (BldA) [Mass fraction] 94 % Dr. Aliza Roman Work Phone: [facility] 01-05-2023 07:46-0400 Systolic blood pressure 142 mm[Hg] Dr. Aliza Roman Work Phone: [facility] 05-02-2022 21:59-0400 Diastolic blood pressure 84 mm[Hg] Dr. Aliza Roman Work Phone: [facility] Work Phone: 05-02-2022 21:59-0400 Heart rate 88 /min Dr. Aliza Roman Work Phone: [facility] Work Phone: 05-02-2022 21:59-0400 Respiratory rate 49 /min Dr. Aliza Roman Work Phone: [facility] Work Phone: 05-02-2022 21:59-0400 SaO2% (BldA) [Mass fraction] 98 % Dr. Aliza Roman Work Phone: [facility] Work Phone: 05-02-2022 21:59-0400 Systolic blood pressure 142 mm[Hg] Dr. Aliza Roman Work Phone: [facility] Work Phone: 05-02-2022 21:07-0400 Body temperature 97.7 [degF] Dr. Aliza Roman Work Phone: [facility] Work Phone: 05-02-2022 21:05-0400 Body height 162.[address] Aliza Roman Work Phone: [facility] Work Phone: 05-02-2022 21:05-0400 Body mass index (BMI) [Ratio] 60.5 kg/m2 Dr. Aliza Roman Work Phone: [facility] Work Phone: 05-02-2022 21:05-0400 Body weight 159.[address] Aliza Roman Work Phone: [facility] Work Phone: 02-27-2022 07:56-0400 Body mass index (BMI) [Ratio] 59.5 kg/m2 Dr. Aliza Roman Work Phone: [facility] Work Phone: 02-27-2022 07:56-0400 Body temperature 98.7 [degF] Dr. Aliza Roman Work Phone: [facility] Work Phone: 02-27-2022 07:56-0400 Body weight 157.[address] Aliza Roman Work Phone: [facility] Work Phone: 02-27-2022 07:56-0400 Diastolic blood pressure 81 mm[Hg] Dr. Aliza Roman Work Phone: [facility] Work Phone: 02-27-2022 07:56-0400 Heart rate 86 /min Dr. Aliza Roman Work Phone: [facility] Work Phone: 02-27-2022 07:56-0400 Inhaled oxygen flow rate 2 L/min Dr. Aliza Roman Work Phone: [facility] Work Phone: 02-27-2022 07:56-0400 Respiratory rate 20 /min Dr. Aliza Roman Work Phone: [facility] Work Phone: 02-27-2022 07:56-0400 SaO2% (BldA) [Mass fraction] 96 % Dr. Aliza Roman Work Phone: [facility] Work Phone: 02-27-2022 07:56-0400 Systolic blood pressure 147 mm[Hg] Dr. Aliza Roman Work Phone: [facility] Work Phone: 02-14-2022 18:46-0400 Body temperature 97.9 [degF] Dr. Aliza Roman Work Phone: [facility] Work Phone: 02-14-2022 18:46-0400 Diastolic blood pressure 60 mm[Hg] Dr. Aliza Roman Work Phone: [facility] Work Phone: 02-14-2022 18:46-0400 Heart rate 107 /min Dr. Aliza Roman Work Phone: [facility] Work Phone: 02-14-2022 18:46-0400 Respiratory rate 20 /min Dr. Aliza Roman Work Phone: [facility] Work Phone: 02-14-2022 18:46-0400 SaO2% (BldA) [Mass fraction] 94 % Dr. Aliza Roman Work Phone: [facility] Work Phone: 02-14-2022 18:46-0400 Systolic blood pressure 92 mm[Hg] Dr. Aliza Roman Work Phone: [facility] Work Phone: 02-14-2022 15:03-0400 Inhaled oxygen flow rate 2 L/min Dr. Aliza Roman Work Phone: [facility] Work Phone: 02-14-2022 12:35-0400 Body height 162.[address] Aliza Roman Work Phone: [facility] Work Phone: 02-14-2022 12:35-0400 Body mass index (BMI) [Ratio] 60 kg/m2 Dr. Aliza Roman Work Phone: [facility] Work Phone: 02-14-2022 12:35-0400 Body weight 158.[address] Aliza Roman Work Phone: [facility] Work Phone: 12-02-2021 13:46-0400 Body mass index (BMI) [Ratio] 59.1 kg/m2 Dr. Aliza Roman Work Phone: [facility] Work Phone: 12-02-2021 13:46-0400 Body weight 156.[address] Aliza Roman Work Phone: [facility] Work Phone: 10-17-2021 06:25-0500 Body mass index (BMI) [Ratio] 59.7 kg/m2 Dr. Aliza Roman Work Phone: [facility] Work Phone: 10-17-2021 06:25-0500 Body temperature 97.5 [degF] Dr. Aliza Roman Work Phone: [facility] Work Phone: 10-17-2021 06:25-0500 Body weight 157.[address] Aliza Roman Work Phone: [facility] Work Phone: 10-17-2021 06:25-0500 Diastolic blood pressure 83 mm[Hg] Dr. Aliza Roman Work Phone: [facility] Work Phone: 10-17-2021 06:25-0500 Heart rate 89 /min Dr. Aliza Roman Work Phone: [facility] Work Phone: 10-17-2021 06:25-0500 Respiratory rate 18 /min Dr. Aliza Roman Work Phone: [facility] Work Phone: 10-17-2021 06:25-0500 SaO2% (BldA) [Mass fraction] 95 % Dr. Aliza Roamn Work Phone: [facility] Work Phone: 10-17-2021 06:25-0500 Systolic blood pressure 145 mm[Hg] Dr. Aliza Roman Work Phone: [facility] Work Phone: Encounters Encounter Date Encounter Type Care Provider Facility Start: 02-06-2025 End: 02-06-2025 Patient encounter procedure Lesvia HOODC -[facility] Work Phone: Start: 02-06-2025 End: 02-06-[address] Aliza Roman MD Work Phone: [facility] Work Phone: Start: 01-23-2025 End: 01-23-2025 Patient encounter procedure Dania Norris RN DERMATOLOGYAnny -[facility] Work Phone: Start: 01-23-2025 End: 01-23-[address] Aliza Roman MD Work Phone: [facility] Work Phone: Start: 01-09-2025 End: 01-09-2025 Admission to same day surgery center Dr. Carlos Ibarra MD [facility] Start: 01-09-2025 End: 01-09-[address] Aliza Roman MD Work Phone: [facility] Work Phone: Start: 12-19-2024 End: 12-19-2024 Patient encounter procedure Lesvia Russo NP-C -[facility] Work Phone: Start: 12-19-2024 End: 12-19-2024 ambulatory Aliza Roman Facility:[facility] Start: 11-27-2024 End: 11-27-2024 Emergency department patient visit Dr. Aliza Roman MD Work Phone: -Emergency Department Work Phone: Start: 10-28-2024 End: 10-28-2024 Emergency department patient visit Dr. Aliza Roman MD Work Phone: -Emergency Department Work Phone: Start: 09-21-2024 End: 09-21-[address] Aliza Roman MD -[facility] Work Phone: Start: 09-21-2024 End: 09-21-2024 ambulatory Aliza Roman Facility:[facility] Start: 08-29-2024 ambulatory Carlos Ibarra Facilit y:[facility] Start: 08-29-2024 End: 08-29-2024 Admission to same day surgery center Dr. Carlos Ibarra MD [facility] Start: 08-29-2024 End: 08-29-2024 ambulatory Carlos Ibarra Facility:[facility] Start: 05-31-2024 End: 05-31-2024 ambulatory Aliza Midayanna Facility:[facility] Start: 03-28-2024 End: 03-28-2024 ambulatory Carlos Ibarra Facility:[facility] Start: 02-02-2024 End: 02-02-2024 ambulatory KAILA P[employer]FFER [employer] Facility:[facility] Start: 02-02-2024 End: 02-02-2024 Patient encounter procedure KAILA PFEIFFER [employer] ANALYST [facility] Start: 01-19-2024 End: 01-19-2024 ambulatory KAILA PFEIFFER [employer] A[employer]LY[employer] Facility:[facility] Start: 01-19-2024 End: 01-19-2024 Patient encounter procedure KAILA PFEIFFER [employer]PRODUCT ANALYST [facility] Start: 12-23-2023 End: 12-23-2023 Emergency department patient visit Dr. Aliza Roman Work Phone: [facility] Work Phone: Start: 12-18-2023 End: 12-19-2023 Emergency department patient visit Dr. Aliza Roman Work Phone: [facility] Work Phone: Start: 12-05-2023 End: 12-05-2023 Emergency department patient visit Dr. Aliza Roman Work Phone: [facility] Work Phone: Start: 11-23-2023 End: 11-23-[address] Aliza Roman Work Phone: [facility] Medicine Work Phone: Start: 11-19-2023 End: 11-19-2023 ambulatory DENNY STEVENS Facility:[facility] Start: 11-16-2023 End: 11-16-2023 ambulatory DENNY STEVENS Facility:[facility] Start: 11-16-2023 End: 11-16-2023 Subsequent hospital visit by physician Xr [facility] Work Phone: Radiology Comment on above: Pain [R52] Start: 10-30-2023 End: 10-30-[address] Aliza Roman Work Phone: [facility] Work Phone: Start: 10-30-2023 End: 10-30-[address] Aliza Roman Work Phone: [facility], [facility] Work Phone: Start: 10-13-2023 Orders Only Torito Mccormick Work Phone: [facility] [place] Comment on above: Pain (Primary Dx) Pain in left hip (Pr imary Dx) Start: 10-06-2023 End: 10-06-2023 [facility] Facility[facility] Start: 10-06-2023 End: 10-06-2023 ambulatory [facility] Facility:[facility] Start: 10-06-2023 End: 10-06-2023 Patient encounter procedure Simin Herrerasiobhan Work Phone: Podiatry Comment on above: Onychomycosis (Prima ry Dx); Pain in toe of left foot; Pain in toe of right foot; Callus of foot Start: 10-06-2023 End: 10-06-2023 Subsequent hospital visit by physician Xr [facility] Work Phone: Radiology Comment on above: Pain [R52] Start: 09-10-2023 End: 09-10-[address] Aliza Roman Work Phone: [facility] Work Phone: Start: 09-03-2023 End: 09-03-[address] Aliza Roman Work Phone: [facility] Work Phone: Start: 09-03-2023 End: 09-03-[address] Aliza Roman Work Phone: [facility] Work Phone: Start: 08-31-2023 End: 08-31-[address] Aliza Roman Work Phone: [facility] Work Phone: Start: 07-23-2023 End: 07-23-[address] [facility] Work Phone: Start: 02-15-2023 End: 02-15-2023 Emergency department patient visit Dr. Aliza Roman Work Phone: [facility] Start: 02-02-2023 End: 02-02-[address] Aliza Roman Work Phone: [facility] Work Phone: Start: 02-02-2023 End: 02-02-[address] Aliza Roman Work Phone: [facility] Start: 01-30-2023 End: 01-30-[address] Aliza Roman Work Phone: [facility] Start: 01-21-2023 End: 01-21-[address] Aliza Roman Work Phone: [facility] Start: 01-13-2023 End: 01-13-2023 Emergency department patient visit Dr. Aliza Roman Work Phone: [facility] Start: 01-05-2023 End: 01-05-[address] [facility] Roman [facility] Start: 05-02-2022 End: 05-02-2022 Emergency department patient visit Dr. Aliza Roman [facility] Start: 02-27-2022 End: 02-27-[address] Aliza Roman Work Phone: [facility] Start: 02-14-2022 End: 02-14-2022 Emergency department patient visit Dr. Aliza Roman [facility] Start: 12-02-2021 End: 12-02-[address] Aliza Roman Work Phone: [facility] Start: 10-17-2021 End: 10-17-[address] Aliza Roman Work Phone: [facility] Start: 10-10-2021 End: 10-10-2021 Patient encounter procedure TONNY SONG MD [facility] Procedures Date Procedure Procedure Detail Performing Clinician Start: 01-09-[address] Domingo Roman MD Work Phone: Start: 01-09-2025 Fluoroscopic guidance Carlos Roman MD Work Phone: Start: 11-27-2024 X-ray of shunt Dr. Sunny Roman MD Work Phone: Start: 11-27-2024 CT of head without contrast Dr. Aliza Roman MD Work Phone: Start: 11-27-2024 Plain x-ray of pelvi s and lower extremity Dr. Aliza Roman MD Work Phone: Start: 11-27-[address] Aliza Roman MD Work Phone: Start: 09-21-2024 Measurement of renal function Dr. Aliza Roman MD Work Phone: Comment on above: GFR Calc Start: 09-21-[address] Aliza Roman MD Work Phone: Start: 09-21-2024 Urine microalbumin/creatinine ratio measurement Dr. Aliza Roman MD Work Phone: Start: 12-23-2023 CT of head without contrast Dr. Aliza Roman Work Phone: Start: 12-23-2023 Radiographic imaging of soft tissue Dr. Aliza Roman Work Phone: Start: 12-19-2023 Computerized axial tomography of lumbar spine with contrast Dr. Aliza Roman Work Phone: Start: 12-05-2023 Computerized axial tomography of lumbar spine with contrast Dr. Aliza Roman Work Phone: Start: 10-30-2023 X-ray of lumbar spin e, two or three views Dr. Aliza Roman Work Phone: Start: 02-15-2023 Computed tomography of abdomen and pelvis with intravenous contrast Dr. Aliza Roman Work Phone: Start: 02-02-2023 MRI of lower extremity Dr. Aliza Roman Work Phone: Start: 01-13-2023 Plain x-ray of pelvi s and lower extremity Dr. Aliza Roman Work Phone: Start: 02-14-2022 Plain chest X-ray Dr. Denny Roman Work Phone: Start: 12-02-2021 Plain x-ray of pelvi s and lower extremity Dr. Aliza Roman Work Phone: Bacteria identified in Blood by Culture Dr. Aliza Roman Work Phone: H/O: surgery S/P ENGINEERING ILLUSTRATOR shunt Dr. Aliza balderas Work Phone: SARS-CoV-2 & FLU Ant igen (Rapid) Dr. 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 Aliza aly Work Phone: Plan of Treatment Date Care Activity Detail Author Start: 01-09-2025 Arthrocentesis aspir &/inj major jt/bursa w/o us DRAIN/INJ JOINT/BURSA W/O US [facility] Start: 01-09-2025 Fluoroscopic guidance [facility] Start: 01-09-2025 Patient discharge [facility] Start: 11-27-2024 [facility] Start: 11-27-2024 [facility] Start: 10-28-2024 [facility] Start: 08-29-2024 Arthrocentesis aspir &/inj major jt/bursa w/o us DRAIN/INJ JOINT/BURSA W/O US [facility] Start: 08-29-2024 Patient discharge [facility] Start: 12-23-2023 [facility] Start: 12-19-2023 [facility] Start: 12-05-2023 [facility] Start: 09-03-2023 Procedure [facility] Start: 08-31-2023 Patient referral [facility] Work Phone: Start: 08-24-2023 Depression Assessment Depression Ass essment [facility] Start: 04-24-2023 Covid-19 Vaccine ( season) Covid-19 Vaccine () [facility] Start: 05-02-2022 Plain x-ray of hand Hand Min 3 Views [facility] Work Phone: Start: 05-02-2022 XR Hand GE 3 Views [facility] Work Phone: Start: 02-14-2022 End: 02-14-2022 [facility] Work Phone: Start: 02-14-2022 End: 02-14-2022 Blood culture [facility] Work Phone: Start: 01-27-2015 Pneumococcal vaccination Pneum ococcal Vaccine (2 of 2 - PCV) [facility] Start: 2003 Hepatitis B Vaccine (1 of 3 - 19+ 3-dose series) Hepatitis B Vaccine (1 of 3 - 19+ 3-dose series) [facility] Start: 2003 Urine microalbumin profile DTaP,Tdap,Td Vaccine (1 - Tdap) [facility] Start: 2002 Annual PCP Team [employer] Immigration Officer oswaldo Disease Visit Annual PCP Team Chronic Disease Visit [facility] Start: 2002 Hepatitis B surface antibody level LDL Cholesterol [facility] Start: 2002 Hepatitis C screening Hepatitis C Sc reening [facility] Start: 2002 HIV screening HIV Screening [facility] Start: 1994 Diabetic foot examination Diabetic F oot Exam [facility] Start: 1994 Glaucoma screening Dilated Retinal E xam [facility] Start: 1994 Hepatitis B screening Urine Albumin:Creatinine Ratio [facility] Start: 1989 Hemoglobin A1c measurement HbA1C [facility] Start: 1984 Hepatitis B Vaccine (1 of 3 - 3-dose series) Hepatitis B Vaccine (1 of 3 - 3-dose series) [facility] Bacteria identified in Blood by Culture Blood Culture [facility] Work Phone: Bacteria identified in Urine by Culture Urine Culture [facility] Work Phone: Blood culture [facility] Work Phone: Patient Education [facility] Work Phone: Patient referral [facility] Work Phone: XR Foot - bilateral AP and Lateral and oblique XR FOOT GENERAL 3V AP/LAT/OBL BILATERAL Radiology Routine Pain 10/06/2023 12:52 PM EST [facility] Work Phone: End: 11-11-2024 XR Pelvis and Hip - left AP and Lateral frog [facility] Work Phone: Comment on above: 1 Occurrences starti ng 10/13/2023 until 11/11/2024 1 Occurrences starti ng 10/14/2023 until 11/11/2024 XR Pelvis and Hip - left AP and Lateral frog XR HIP GENERAL 3V PELV/AP/LAT LEFT Radiology Routine Pain 11/16/2023 10:36 AM EDT [facility] Work Phone: [facility] Work Phone: [facility] Immunizations Immunization Date Immunization Notes Care Provider Fa cility 12-14-2020 Covid (Moderna) Dr. Aliza flores Work Phone: [facility] 05-30-[address] Aliza Roman Work Phone: [facility] 05-25-[address] Aliza Roman Work Phone: [facility] 05-24-[address] Aliza Roman Work Phone: [facility] 05-12-[address] Aliza Roman Work Phone: [facility] 05-25-[address] Aliza Roman Work Phone: [facility] 01-27-[address] Byron Roman Work Phone: [facility] Work Phone: 01-27-2014 pneumococcal vaccine , unspecified formulation Dr. Aliza Roman Work Phone: [facility] Payers Date Payer Category Payer Self-pay [id number] 2015 Medicaid [facility] [id number] 2015-Present [phone] [address] [place] [address] Medicaid [id number] 2015 Medicare [employer] [id number] 2015-Present [phone] [address] [place] [address] Medicare [id number] 2014 Unknown [id number] 2014 Unknown [id number] 1984 Unknown [id number] 1984 Unknown [id number] Unknown [id number] Unknown [id number] Unknown [id number] Unknown [id number] Unknown [id number] Unknown [id number] Unknown [id number] Unknown [id number] [id number] Unknown [id number] Unknown [id number] Unknown [id number] Social History Date Type Detail Facility [facility] Start: 1985 Sex Assigned At Male A [facility] Start: 02-14-2022 End: 12-23-2023 Tobacco smoking status NHIS Unknown if ever smoked [facility] Start: 10-27-2020 None [facility] Start: 10-27-2020 Spouse/ Signif icant Other [facility] Start: 10-27-2020 Non-smoker [facility] Start: 05-16-2014 End: 11-27-2024 Tobacco smoking status INIS Never smoked tobacco [facility] Start: 05-16-2014 Tobacco use and exposure Smokeless tobacco non-user [facility] Start: 10-06-2023 Alcohol intake Current drinke r of alcohol (finding) [facility] Start: 10-06-2023 History of Social function [facility] Start: 10-06-2023 Tobacco use panel [facility] National Score (1-100), lower number is lower risk 66 [facility] Start: 10-06-2023 Alcohol Comment holidays [facility] Start: 1985 Sex Assigned At Not on file [facility] Start: 10-28-2024 End: 11-27-2024 Sex Male (finding) [facility] Goals Date Patient Goal Desired Activity /State Mental Status Date Assessment Result Facility 01-09-2025 Cognitive function Voice/Name [facility] Work Phone: 11-27-2024 Cognitive function Level Of Cons ciousness Awake;Alert;Appropriate;Follow s Commands [facility] Work Phone: 08-29-2024 Cognitive function Voice/Name [facility] Work Phone: 02-14-2022 Cognitive function Level Of Cons ciousness Awake;Alert;Appropriate;Follow s Commands [facility] Work Phone: Clinical Notes 10-06-2023 to 01-09-2025 Note Date & Type Note Facility 01-09-2025 Procedure note [facility] 01-09-2025 Consult note [facility] 12-19-2024 Evaluation note Diagnosis Onset Date Resolution Benign hypertension chronic December 19, 2024 1:29pm Fatty liver disease, nonalcoholic chronic December 19, 2024 1:29pm Hyperlipemia chronic December 19, 2024 1:29pm Obesity chronic December 19 1:29pm Type II diabetes mellitus chronic December 19, 2024 1:29pm [facility] Work Phone: 1(105) 153-872004-28-2025 Evaluation note* Diagnosis Onset Date Resolution Status Admit Date Benign hypertension chronic December 19, 2024 1:29pm Fatty liver disease, nonalcoholic ch ronic December 19, 2024 1:29pm Hyperlipemia chronic December 19, 2024 1:29pm Obesity chronic December 19 1:29pm Type II diabetes mellitus chronic December 19, 2024 1:29pm Bronchial asthma chronic January 2:35pm Hypoxia chronic January 23, 2025 2:35pm Obesity hypoventilation syndrome chr onic January 23, 2025 2:35pm Super obesity chronic January 23 2:35pm [facility] Work Phone: 1(215) 589-300404-06-2025 Radiology Diagnostic study note [facility] Imaging Services [address] [facility] [address] [place], [place] [address] Shuntogram/Prev Placed Shunt MR#: [id number] Acct: [id number] Name: DONNA RODRIGES Rep #: [id number] : 1985 M 39 From: Pet er Peer DO PCP: Dr. Aliza Roman MD Status: REG ER Study:Shuntogram/Prev Placed Shunt Date of Ex am: 11/27/24 Exam# [id number] Ordering Dr: Mica Mendez DO EXAM: Diagnostic shuntogram of placed shunt. CLINICAL HISTORY: Bilateral lower extremity edema for 2 days. COMPARISON: Yesterday, November 26 pelvis and November 27 brain TECHNIQUE: Plain films were obtained to survey the entire course of the right-sided ENGINEERING ILLUSTRATOR shunt. FINDINGS: Skull demonstrates right parietal shunt. The tubing traverses the right skull and right thorax and then is seen right abdomen initially and then crosses over to the left abdomen. No obvious kinking or other abnormality. RAD/Shuntogram/Prev Placed Shunt IMPRESSION: Patent ENGINEERING ILLUSTRATOR shunt. Reading Location: [facility] CC: Dr. Aliza Roman MD; Dr. Davonte Mendez DO ~ Mandarin Teacher: Signed [facility]04-06-2025 Radiology Diagnostic study note [facility] Imaging Services [address] [place], [place] [address] HIP, UNI W/ Pelvis 2-3 Views MR#: [id number] Acct: [id number] Name: DONNA RODRIGES Rep #: [id number] : 1985 M 39 From: Pet er Peer DO PCP: Dr. Aliza Roman MD Status: REG ER Study:HIP, UNI W/ Pelvis 2-3 Views Date of Ex am: 11/27/24 Exam# [id number] Ordering Dr: Krystina Bunch PROCEDURE: HIP, UNI W/ PELVIS 2-3 VIEWS 11/27/2024 REASON FOR EXAM: HIP PAIN, FALL TECHNIQUE: AP pelvis and 2 radiographic views of the left hip. FINDINGS: Bones: No fracture Joints: No dislocation. Marked cartilage loss and deformity of bone ends of advanced osteoarthritis Soft tissues: Unremarkable Other: RAD/HIP, UNI W/ Pelvis 2-3 Views IMPRESSION: Advanced osteoarthritis of left hip. Reading Location: [facility] CC: Dr. Aliza Roman MD; GUICHO Jarrell ~ Mandarin Teacher: Signed [facility]04-06-2025 Radiology Diagnostic study note [facility] Imaging Services [address] [place] [address] Brain/Head without Contrast MR#: [id number] Acct: [id number] Name: DONNA RODRIGES Rep #: [id number] : 1985 M 39 From: Pet er Peer DO PCP: Dr. Aliza Roman MD Status: REG ER Study:Brain/Head without Contrast Date of Exa m: 11/27/24 Exam# [id number] Ordering Dr: Krystina Bunch PROCEDURE: BRAIN/HEAD WITHOUT CONTRAST 11/27/2024 REASON FOR EXAM: HEAD INJURY, POSSIBLE SEIZURE ENGINEERING ILLUSTRATOR shunt surgery. History of seizures TECHNIQUE: Head CT without intravenous contrast. Coronal and Sagittal reconstruction serieswere provided. One or more dose reduction techniques were used (e.g., Automated exposure control, adjustment of the mA and/or kV according to patient size, use of iterative reconstruction technique. RADIATION DOSE SUMMARY: CTDlvol: 44.99 mGy DLP: 796.11 mGycm COMPARISON: None. FINDINGS: Brain: Right parietal ENGINEERING ILLUSTRATOR shunt tube appears satisfactorily positioned. No ventriculomegaly. No mass, mass effect or midline shift. No intra-axial or extra-axial hemorrhage. CSF Spaces: Again ENGINEERING ILLUSTRATOR shunt tube in place. Ventricles and sulci are normal in size. Sinuses/Mastoids: Mucous retention cyst in the base of the left maxillary sinus. Mastoid air cells and remaining sinuses are clear. Bones: Unremarkable. CT/Brain/Head without Contrast IMPRESSION: No acute process detected. Reading Location: [facility] CC: Dr. Aliza Roman MD; GUICHO Jarrell ~ Mandarin Teacher: Signed [facility]06-11-2024 Note ORIGINAL EXAMINATION: CT OF THE HEAD WITHOUT CONTRAST 02/02/2024 10:37 am TECHNIQUE: CT of the head was performed without the administration of intravenous contrast. Automated exposure control, iterative reconstruction, and/or weight based adjustment of the mA/kV was utilized to reduce the radiation dose to as low as reasonably achievable. COMPARISON: 10/10/2021. HISTORY: ORDERING SYSTEM PROVIDED HISTORY: Reason for Exam: Hydrocephalus FINDINGS: There is no acute intracranial hemorrhage, mass, mass effect or abnormal extra-axial fluid collection. There is no CT evidence of acute infarct. The density in the larger dural venous sinuses is grossly normal. A ventriculostomy tube seen from a right parietal approach. The tubing terminates near the posterior aspect of the right lateral ventricle. The ventricular caliber is unchanged relative to the 2021 exam. Paucity of the white matter is similar to the prior study. There are few scattered chronic insults in the white matter which are similar to the prior exam. Lacunar defects near the right caudate are unchanged. The skull base and calvarium demonstrate no abnormality. A 1.6 cm retention cyst or polyp seen in the left maxillary sinus. Included mastoid air cells are clear. IMPRESSION: No interval change. Interpreted by: Luca Foss MD Preliminary Report By: Luca Foss MD Electronically signed By Lcua Foss MD Dictated Date: 02/02/2024 2:55:17 PM Prelim Date: 02/02/2024 3:05:07 PM Sign Date: 02/02/2024 3:05:07 PM Ordering Provider: [facility] Discharge summary Author Zeny Dumont [facility] December 19, 2023 1:20am Note Date/Time December 18, 2023 11: 05pm [facility] Medical Records Department [address] [place] [address] Emergency Department Summary 12/18/23 MR#: [id number] Acct: [id number] Name: DONNA RODRIGES Rep #:[id number] : 1985 38 From: Zeny Dumont MD PCP: Dr. Aliza Roman MD Status:REG ER Location: ED HPI History of Present Illness Chief Complaint: Back Informant: patient Narrative Narrative: Patient presents with acute on chronic back pain. Patient has been following with Dr. Gray for pain management secondary to back pain. Earlier this month he had an injection in his back. Since that time he has an area just superior to the injection site that is swollen and painful. He was seen in the emergencyroom on the sixth and had a CT of the lumbar spine that showed some spinal stenosis. There was no evidence of abscess. Patient has seen his primary care physician as well as pain management since and states that his pain is not controlled. He finished his last prescription of [place] today and states he doesnot want to go machine operator picker his new prescription tomorrow because the pills do not help him. He is on baclofen twice a day as well. His PCP recently put him on aprednisone taper that he states did not help. He states he has numbness radiating down the backs of both legs today. There is been no new injury. He has no fever or chills. He states he called his insurance company and they recommended he come back to the emergency room. [facility] Medical History Benign hypertension Bronchial asthma Chest pain Depression GERD (gastroesophageal reflux disease) Gout History of bronchitis History of cerebral palsy History of pneumonia Hypertension Obstructive sleep apnea 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 Seizure disorder Super obesity Type II diabetes mellitus Vertigo Home Medications allopurinol 300 mg tablet 300 mg PO DAILY gout 06/09/15 [History Last Taken 04/13/20 08:00] nebivolol 10 mg tablet 10 mg PO DAILY heart 06/09/15 [History Last Taken 04/13/20 08:00] baclofen 20 mg tablet 20 mg PO DAILY muscle spasms 06/25/18 [History Last Taken 04/13/20 16:00] pantoprazole 40 mg tablet,delayed release 40 mg PO DAILY gi 06/25/18 [History Last Taken 04/13/20 08:00] levetiracetam 500 mg tablet 500 mg PO BID seizures 01/28/20 [History Last Taken 04/13/20 16:00] multivitamin with minerals 1 tab PO DAILY vitamin 01/28/20 [History Last Taken 04/13/20 08:00] acetaminophen 325 mg tablet 650 mg (2 x 325 mg) PO Q6H PRN PRN Pain Score 1- 10/Temp > 100.7 F 04/14/20 [Rx Last Taken Unknown] fluoxetine 10 mg capsule 20 mg PO DAILY depression 08/15/20 [History Last Taken Unknown] furosemide 20 mg tablet 40 mg PO BID diuretic 10/13/21 [History Last Taken Unknown] colchicine 0.6 mg tablet ea PO 12/02/21 [History Last Taken Unknown] liraglutide 0.6 mg/0.1 mL (18 mg/3 mL) subcutaneous pen injector ml subcut 12/02/21 [History Last Taken Unknown] albuterol sulfate 2.5 mg/3 mL (0.083 %) solution for nebulization 2.5 mg (3 mL) inhalation Q4H PRN shortness of breath or wheezing #180 mL 01/05/23 [Rx Last Taken Unknown] albuterol sulfate 90 mcg/actuation aerosol inhaler 2 inh inhalation Q4H PRN PRN Sob &/Or Wheezing #8.5 grams 01/05/23 [Rx Last Taken Unknown] budesonide-formoterol HFA 160 mcg-4.5 mcg/actuation aerosol inhaler (Symbicort) 2 puff inhalation BID #10.2 grams 01/05/23 [Rx Last Taken Unknown] montelukast 10 mg tablet 10 mg PO DAILY allergies #90 tabs 01/05/23 [Rx Last Taken Unknown] spacer #1 ea 01/05/23 [Rx Last Taken Unknown] dapagliflozin propanediol 5 mg tablet (Farxiga) 10 mg PO DAILY 07/23/23 [History Last Taken Unknown] potassium citrate 10 mEq (1,080 mg) tablet,extended release 10 meq PO DAILY 07/23/23 [History Last Taken Unknown] fluticasone propionate 50 mcg/actuation nasal spray,suspension 2 spray intranasal DAILY allergies #16 grams 11/23/23 [Rx Last Taken Unknown] ipratropium bromide 21 mcg (0.03 %) nasal spray 2 spray intranasal BID #30 mL 11/23/23 [Rx Last Taken Unknown] hydrocodone-acetaminophen 5-325mg 5mg-325mg 1 tab PO TID 12/18/23 [History Last Taken Unknown] naproxen 500 mg tablet (Naprosyn) 500 mg PO BID PRN pain #20 tabs 12/19/23 [Rx Last Taken Unknown] Allergy/AdvReac Type Severity Reaction Status Date / Time animal dander Allergy Chest Verified 12/18/23 22:29 tightness grass pollen Allergy Other Verified 12/18/23 22:29 house dust Allergy Other Verified 12/18/23 22:29 pollen extracts Allergy Other Verified 12/18/23 22:29 Family History Father Chronic a-fib CVA (cerebral vascular accident) Mother ROBERT (obstructive sleep apnea) Breast cancer Grandfather Cancer bladder Other Diabetes Surgical History H/O eye surgery H/O hernia repair S/P ENGINEERING ILLUSTRATOR shunt Social History Smoking Status: Never smoker ROS ROS ED Constitutional Constitutional ED: Denies chills or fever(s) Eyes Eyes: Denies discharge from eye(s) ENT ENT ED: Denies discharge from eye(s), rhinorrhea or sore throat Cardiovascular Cardiovascular: Denies chest pain or palpitations Respiratory/Chest Respiratory/Chest: Denies cough or dyspnea Gastrointestinal Gastrointestinal: Denies abdominal pain, nausea or vomiting Genitourinary Genitourinary ED: Denies dysuria or hematuria Musculoskeletal Musculoskeletal: Reports back pain; Denies extremity pain Integumentary Denies Abrasions or rash Neurologic Neurologic: Reports paresthesias RLE and LLE; Denies headache(s) or weakness Psychiatric Psychiatric: Reports anxiety and depression Allergic/Immunologic Allergic/Immunologic ED: Denies lip swelling or urticaria EXAM Physical Exam Const Vital Signs: 12/18/23 22:28 12/18/23 22:54 12/19/23 00:54 Temperature 98.4 F Temperature Source Oral Pulse Rate 91 84 99 Respiratory Rate 18 18 20 H Blood Pressure 137/65 H 133/86 H 128/96 H Blood Pressure Mean 89 101 106 Pulse Ox 98 97 91 Oxygen Delivery Method Room Air Room Air Room Air Positive obese Nutritional Appearance: obese HEENT Reports moist mucous membranes Eyes EOMs intact bilaterally Resp normal respiratory effort and clear to auscultation bilaterally Cardio regular rate and regular rhythm GI soft to palpation and non-tender Back/Spine Back/Spine Narrative: Reproducible tenderness over the low lumbar spine midline. No erythema. No palpable masses. Extremity normal to inspection Extremity Narrative: Good distal pulses in the lower extremities. No focal neurologic deficit appreciated. Psych Mood & Affect: sad and tearful Skin no rashes or lesions noted MDM MDM MDM Narrative Medical decision making narrative: IV line established. Labwork obtained to evaluate for leukocytosis, anemia, andelectrolyte derangement. Lumbar spine CT with IV contrast to be obtained to evaluate for any evidence of abscess or abnormal fluid collection. Patient given a dose of Dilaudid and Zofran here for pain control. History & Record Review Discussion w/independent historian: Patient Additional record(s) reviewed:: Prior ED visit and Prior labs Lab Data Attestation: I reviewed the patient's lab results. Labs: Laboratory Results - last 24 hr 12/18/23 23:25 WBC 9.5 RBC 5.09 Hgb 14.7 Hct 44.7 MCV 87.8 MCH 28.9 MCHC 32.9 RDW Std Deviation 48.0 H RDW Coeff of Kusum 15.2 H Plt Count 225 MPV 10.8 Immature Gran % (Auto) 0.800 Neut % (Auto) 60.9 Lymph % (Auto) 27.8 Beauregard % (Auto) 7.9 Eos % (Auto) 2.0 Baso % (Auto) 0.6 Absolute Neuts (auto) 5.8 Absolute Lymphs (auto) 2.65 Nucleated RBC % 0 Sodium 139 Potassium 4.6 Chloride 104 Carbon Dioxide 31.0 Anion Gap 4 L BUN 19 H Creatinine 0.70 Estim Creat Clear Calc 194.38 Est GFR (MDRD) Af Amer 160 Est GFR (MDRD) Non-Af 133 BUN/Creatinine Ratio 27.1 H Glucose 216 H Calcium 8.7 Radiography Diagnostic Testing: Clinical Impression(s) from Imaging Studies Lumbar Spine CT 12/19/23 00:10 IMPRESSION: 1. No acute abnormalities identified involving the lumbar spine. 2. Degenerative changes. Electronically Signed: Tripp Vogel MD at 1:05 EDT , Treatment and Re-Evaluation Narrative: CBC reveals normal white count 9.5 with a hemoglobin of 14.7. Chemistry studiesremarkable only for glucose of 216. Renal function is normal. CT scan of the lumbar spine with IV contrast reveals no evidence of focal fluid collection. Noacute abnormalities are identified. No critical stenosis. After the patient received 0.5 mg of Dilaudid he did have some mild hypoxia witha sat of 85%. He does normally wear CPAP at night for sleep apnea. He was placed on 2 L nasal cannula. He states that the numbness in his legs resolved with pain medication. At this time he is alert and appropriate. He is satting 96% on room air. I will write him a prescription for naproxen. He has [place] and baclofen to machine operator picker at the pharmacy tomorrow. Return instructions provided. Discharge Plan Triage Chief Complaint: Back ED Provider: Zeny Dumont Dx/Rx/DC Orders Clinical Impression: Back pain Instructions: ED Back Pain (Acute or Chronic) Prescriptions: New naproxen [Naprosyn] 500 mg tablet 500 mg PO BID PRN (Reason: pain) Qty: 20 0RF No Action colchicine 0.6 mg tablet PO Patient Comments: take 1 tablet by mouth every 6 hours if needed for GOUT FLARE Victoza 3-Denita 0.6 mg/0.1 mL (18 mg/3 mL) pen injector subcut Patient Comments: inject 1.8 milligram subcutaneously daily albuterol sulfate 2.5 mg /3 mL (0.083 %) solution for nebulization 2.5 mg inhalation Q4H PRN (Reason: shortness of breath or wheezing) Qty: 180 11RF albuterol sulfate 90 mcg/actuation HFA aerosol inhaler 2 inh inhalation Q4H PRN PRN (Reason: Sob &/Or Wheezing) Qty: 8.5 11RF budesonide-formoterol [Symbicort] 160-4.5 mcg/actuation HFA aerosol inhaler 2 puff inhalation BID Qty: 10.2 11RF montelukast 10 mg tablet 10 mg PO DAILY Qty: 90 3RF (DME) spacer See Rx Instructions .ROUTE .MEDSUPPLY Qty: 1 0RF Rx Instructions: As directed potassium citrate 10 mEq (1,080 mg) tablet extended release 10 meq PO DAILY Patient Comments: TAKE 1 TABLET BY MOUTH EVERY DAY Farxiga 5 mg tablet 10 mg PO DAILY ipratropium bromide 21 mcg (0.03 %) spray,non-aerosol 2 spray intranasal BID Qty: 30 6RF fluticasone propionate 50 mcg/actuation spray,suspension 2 spray INTRANASAL DAILY Qty: 16 11RF allopurinol 300 MG tablet 300 mg PO DAILY Patient Comments: gout nebivolol 10 MG tablet 10 mg PO DAILY Patient Comments: blood pressure baclofen 20 MG tablet 20 mg PO DAILY pantoprazole 40 MG tablet 40 mg PO DAILY multivitamin with minerals 1 EACH tablet 1 tab PO DAILY levetiracetam 500 MG tablet 500 mg PO BID Patient Comments: seizure fluoxetine 10 mg capsule 20 mg PO DAILY Patient Comments: TAKE 1 CAPSULE BY MOUTH EVERY DAY acetaminophen 325 MG tablet 650 mg PO Q6H PRN PRN (Reason: Pain Score 1-10/Temp > 100.7 F) 0RF furosemide 20 MG tablet 40 mg PO BID Patient Comments: Diuretic (water pill) hydrocodone-acetaminophen 5-325 mg tablet 1 tab PO TID Primary Care Provider: Aliza Roman Referrals: Alejandro Gray MD [Med Staff - Active Staff] - 1 Week Aliza Roman MD [Primary Care Provider] - Disposition Disposition: Home, Self Care What to do if you have Problems For any increased pain, shortness of breath, bleeding, nausea or vomiting, chestpain, or any unexpected problems, contact your Primary Care Provider. Call [facility] ([phone]) or report to the closest Emergency Room. Call 911 if necessary. 12/19/23 0120 <Electronically signed by Zeny Dumont MD> Cosigner Signature (if applicable): CC: Dr. Aliza Roman MD ~ Signed [facility] Work Phone: [phone] 971-421204-13-2024 Discharge summary Author Romulo Estrella [facility] December 05, 2023 2:16pm Note Date/Time December 05, 2023 11: 23am [facility] Medical Records Department [address] [place] [address] Emergency Department Summary 12/05/23 MR#: [id number] Acct: [id number] Name: DONNA RODRIGES Rep #:[id number] : 1985 38 From: Romulo Estrella MD PCP: Dr. Aliza Roman MD Status:REG ER Location: ED HPI History of Present Illness Chief Complaint: Back Narrative Narrative: 38-year-old male past medical history of diabetes, chronic hip dysplasia for which he received injection from pain management on 23 November, 11 days [address] He sees Dr[address] Gray. He states the following Thursday approximately 5 days afterwards, he developed pain. He is no longer able to sit. He denies any chills but states he had a fever few days ago as high as 101. He took Tylenol. He states he had the pain management doctor look at the area no redness or swelling was noted. He saw his primary care provider as well who thought there was swelling, so he was put on prednisone. He presents via EMS today because heis having pain at the top of the cleft of his buttocks and it hurts when he sitsor lies flat. PFS PFSH Medical History Benign hypertension Bronchial asthma Chest pain Depression GERD (gastroesophageal reflux disease) Gout History of bronchitis History of cerebral palsy History of pneumonia Hypertension Obstructive sleep apnea 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 Seizure disorder Super obesity Type II diabetes mellitus Vertigo Home Medications allopurinol 300 mg tablet 300 mg PO DAILY gout 06/09/15 [History Last Taken 04/13/20 08:00] nebivolol 10 mg tablet 10 mg PO DAILY heart 06/09/15 [History Last Taken 04/13/20 08:00] baclofen 20 mg tablet 20 mg PO DAILY muscle spasms 06/25/18 [History Last Taken 04/13/20 16:00] pantoprazole 40 mg tablet,delayed release 40 mg PO DAILY gi 06/25/18 [History Last Taken 04/13/20 08:00] levetiracetam 500 mg tablet 500 mg PO BID seizures 01/28/20 [History Last Taken 04/13/20 16:00] multivitamin with minerals 1 tab PO DAILY vitamin 01/28/20 [History Last Taken 04/13/20 08:00] acetaminophen 325 mg tablet 650 mg (2 x 325 mg) PO Q6H PRN PRN Pain Score 1- 10/Temp > 100.7 F 04/14/20 [Rx Last Taken Unknown] fluoxetine 10 mg capsule 20 mg PO DAILY depression 08/15/20 [History Last Taken Unknown] furosemide 20 mg tablet 40 mg PO BID diuretic 10/13/21 [History Last Taken Unknown] colchicine 0.6 mg tablet ea PO 12/02/21 [History Last Taken Unknown] liraglutide 0.6 mg/0.1 mL (18 mg/3 mL) subcutaneous pen injector ml subcut 12/02/21 [History Last Taken Unknown] albuterol sulfate 2.5 mg/3 mL (0.083 %) solution for nebulization 2.5 mg (3 mL) inhalation Q4H PRN shortness of breath or wheezing #180 mL 01/05/23 [Rx Last Taken Unknown] albuterol sulfate 90 mcg/actuation aerosol inhaler 2 inh inhalation Q4H PRN PRN Sob &/Or Wheezing #8.5 grams 01/05/23 [Rx Last Taken Unknown] budesonide-formoterol HFA 160 mcg-4.5 mcg/actuation aerosol inhaler (Symbicort) 2 puff inhalation BID #10.2 grams 01/05/23 [Rx Last Taken Unknown] montelukast 10 mg tablet 10 mg PO DAILY allergies #90 tabs 01/05/23 [Rx Last Taken Unknown] spacer #1 ea 01/05/23 [Rx Last Taken Unknown] dapagliflozin propanediol 5 mg tablet (Farxiga) 10 mg PO DAILY 07/23/23 [History Last Taken Unknown] potassium citrate 10 mEq (1,080 mg) tablet,extended release 10 meq PO DAILY 07/23/23 [History Last Taken Unknown] fluticasone propionate 50 mcg/actuation nasal spray,suspension 2 spray intranasal DAILY allergies #16 grams 11/23/23 [Rx Last Taken Unknown] ipratropium bromide 21 mcg (0.03 %) nasal spray 2 spray intranasal BID #30 mL 11/23/23 [Rx Last Taken Unknown] Allergy/AdvReac Type Severity Reaction Status Date / Time animal dander Allergy Chest Verified 11/23/23 13:45 tightness grass pollen Allergy Other Verified 11/23/23 13:45 house dust Allergy Other Verified 11/23/23 13:45 pollen extracts Allergy Other Verified 11/23/23 13:45 Family History Father Chronic a-fib CVA (cerebral vascular accident) Mother ROBERT (obstructive sleep apnea) Breast cancer Grandfather Cancer bladder Other Diabetes Surgical History H/O eye surgery H/O hernia repair S/P ENGINEERING ILLUSTRATOR shunt Social History Smoking Status: Never smoker ROS ROS ED ROS Narrative Constitutional: Reported fever, no chills. HEENT: No sore throat. No neck pain. No loss of vision. No rhinorrhea. Cardiovascular: No chest pain. No palpitations. No pedal edema. Respiratory: No cough, no shortness of breath. Abdominal: No abdominal pain. No nausea. No vomiting. Genitourinary: No dysuria. No hematuria. Musculoskeletal: No myalgias. No arthralgias. Positive low back pain and sacral pain. Worse with sitting or lying on back. Reported swelling in that area. Neurologic: No headaches. No dizziness. No lightheadedness. Skin: No rash. No change in color. Psychiatric: No depression. No anxiety. EXAM Physical Exam Narrative Exam Narrative: Afebrile. Vital signs noted. Nontoxic-appearing. HEENT: Normocephalic. Atraumatic. PERRL, EOMI. Neck soft and supple. No pointtenderness or step off. Cardiovascular: Regular rate and rhythm. No murmurs, rubs, or gallops appreciated. Respiratory: No tachypnea. Lungs clear to auscultation bilaterally. Gastrointestinal: Abdomen soft, obese, nontender, with normoactive bowel sounds. No rebound or guarding. Neurological: Awake. Alert. Nonfocal, nonlateralizing. Able to sit on edge of cot. Skin: No rash. Normal color. No pallor. Musculoskeletal: No pedal edema. Full range of motion extremities. Mild tenderness to palpation above top of buttocks cleft, no noted erythema, no fluctuance. Const Vital Signs: 12/05/23 11:03 Temperature 96.3 F L Temperature Source Temporal Pulse Rate 100 Respiratory Rate 24 H Blood Pressure 171/95 H Blood Pressure Mean 120 Pulse Ox 95 Oxygen Delivery Method Room Air MDM MDM MDM Narrative Medical decision making narrative: In the differential diagnosis is pilonidal abscess versus chronic back pain exacerbation versus sacral abscess/fluid collection status post injection. While I do not feel that an emergent MRI is indicated, I will obtain basic laboratory work along with CT of the lumbar spine and sacrum with IV contrast. Patient is enrolled in pain management taking tramadol. I do not feel that narcotics are currently indicated. I reviewed his laboratory work and he has normal white count of 8.1, hemoglobin normal at 15.2, platelet count normal at 202. Electrolyte panel shows creatinine low at 0.61, chloride slightly elevated at 108 which I think is nonspecific, sodium normal at 139, potassium normal at 4.3. Glucose is appropriately elevated at 129 with anion gap low at 3. I have no concern for diabeticketoacidosis. I reviewed the CT report which shows no evidence of a fluid collection or pilonidal abscess. There is noted spinal stenosis. At this pointin time, he was seen ambulating to the bathroom in his room. I do not feel thathe requires admission. He states he is already on prednisone. However, I do not feel narcotic pain medication is indicated to treat his pain as he is enrolled in pain management. He will continue his tramadol and take up to 3 g of Tylenol and finish his prednisone. Prior to discharge, he was given 1 shot of Toradol intravenously, along with Zofran for nausea. I feel he can be discharged safely home with follow-up. Return instructions to the emergency department were reviewed. He will follow-up with his primary care provider and pain management doctor on Thursday. Disposition is discharged home in stable condition. History & Record Review Discussion w/independent historian: Patient Lab Data Attestation: I reviewed the patient's lab results. Labs: Laboratory Results - last 24 hr 12/05/23 12/05/23 11:30 13:01 WBC 8.1 RBC 5.43 Hgb 15.2 Hct 47.4 MCV 87.3 MCH 28.0 MCHC 32.1 RDW Std Deviation 49.2 H RDW Coeff of Kusum 15.6 H Plt Count 202 MPV 11.1 Immature Gran % (Auto) 1.000 H Neut % (Auto) 57.5 Lymph % (Auto) 31.9 Beauregard % (Auto) 7.5 Eos % (Auto) 1.5 Baso % (Auto) 0.6 Absolute Neuts (auto) 4.6 Absolute Lymphs (auto) 2.57 Nucleated RBC % 0 Sodium 139 Potassium 4.3 Chloride 108 H Carbon Dioxide 28.0 Anion Gap 3 L BUN 18 Creatinine 0.61 L Est GFR (MDRD) Af Amer 187 Est GFR (MDRD) Non-Af 155 BUN/Creatinine Ratio 29.3 H Glucose 129 H Calcium 8.9 Total Bilirubin 0.40 AST 36 ALT 48 Alkaline Phosphatase 96 Total Protein 8.1 Albumin 3.6 Globulin 4.5 H Albumin/Globulin Ratio 0.8 L Urine Color Yellow Urine Clarity Sl. Cloudy Urine pH 5.0 Ur Specific [place] 1.010 Urine Protein 30 H Urine Glucose (UA) 1000 H Urine Ketones Negative Urine Occult Blood 150 H Urine Nitrite Negative Urine Bilirubin Negative Urine Urobilinogen Normal Ur Leukocyte Esterase 500 H Urine RBC 0-5 SEEN Urine WBC 25-50 SEEN Ur Squamous Epith Cells 0 SEEN Urine Bacteria 1+ Urine Mucus 0 SEEN Radiography Diagnostic Testing: Clinical Impression(s) from Imaging Studies Lumbar Spine CT 12/05/23 11:17 IMPRESSION: 1. Diffuse spinal stenosis related to short pedicles and prominent bony hypertrophy of the facets and vertebral bodies. 2. Dysplastic and degenerative changes of left hip. Electronically Signed: Tyler Lyman MD at 13:04 EDT , Discharge Plan Triage Chief Complaint: Back ED Provider: Romulo Estrella Dx/Rx/DC Orders Clinical Impression: Back pain, Spinal stenosis Instructions: Anatomy of a Normal Spine, ED Back Pain (Acute or Chronic) Prescriptions: No Action colchicine 0.6 mg tablet PO Patient Comments: take 1 tablet by mouth every 6 hours if needed for GOUT FLARE Victoza 3-Denita 0.6 mg/0.1 mL (18 mg/3 mL) pen injector subcut Patient Comments: inject 1.8 milligram subcutaneously daily albuterol sulfate 2.5 mg /3 mL (0.083 %) solution for nebulization 2.5 mg inhalation Q4H PRN (Reason: shortness of breath or wheezing) Qty: 180 11RF albuterol sulfate 90 mcg/actuation HFA aerosol inhaler 2 inh inhalation Q4H PRN PRN (Reason: Sob &/Or Wheezing) Qty: 8.5 11RF budesonide-formoterol [Symbicort] 160-4.5 mcg/actuation HFA aerosol inhaler 2 puff inhalation BID Qty: 10.2 11RF montelukast 10 mg tablet 10 mg PO DAILY Qty: 90 3RF (DME) spacer See Rx Instructions .ROUTE .MEDSUPPLY Qty: 1 0RF Rx Instructions: As directed potassium citrate 10 mEq (1,080 mg) tablet extended release 10 meq PO DAILY Patient Comments: TAKE 1 TABLET BY MOUTH EVERY DAY Farxiga 5 mg tablet 10 mg PO DAILY ipratropium bromide 21 mcg (0.03 %) spray,non-aerosol 2 spray intranasal BID Qty: 30 6RF fluticasone propionate 50 mcg/actuation spray,suspension 2 spray INTRANASAL DAILY Qty: 16 11RF allopurinol 300 MG tablet 300 mg PO DAILY Patient Comments: gout nebivolol 10 MG tablet 10 mg PO DAILY Patient Comments: blood pressure baclofen 20 MG tablet 20 mg PO DAILY pantoprazole 40 MG tablet 40 mg PO DAILY multivitamin with minerals 1 EACH tablet 1 tab PO DAILY levetiracetam 500 MG tablet 500 mg PO BID Patient Comments: seizure fluoxetine 10 mg capsule 20 mg PO DAILY Patient Comments: TAKE 1 CAPSULE BY MOUTH EVERY DAY acetaminophen 325 MG tablet 650 mg PO Q6H PRN PRN (Reason: Pain Score 1-10/Temp > 100.7 F) 0RF furosemide 20 MG tablet 40 mg PO BID Patient Comments: Diuretic (water pill) Primary Care Provider: Aliza Roman Referrals: Alejandro Gray MD [Med Staff - Active Staff] - 2 Days Aliza Roman MD [Primary Care Provider] - 3-5 Days Activity Restrictions/Additional Instructions: Call your pain management physician on Thursday. You can continue Tylenol up to 3g / 3000 mg a day. Continue your tramadol as previously directed. You have evidence of spinal stenosis on your CT scan. Disposition Disposition: Home, Self Care What to do if you have Problems For any increased pain, shortness of breath, bleeding, nausea or vomiting, chestpain, or any unexpected problems, contact your Primary Care Provider. Call [facility] ([phone]) or report to the closest Emergency Room. Call 911 if necessary. 12/05/23 1416 <Electronically signed by Romulo Estrella MD> Cosigner Signature (if applicable): CC: Dr. Aliza Roman MD ~ Signed [facility] Work Phone: 1(589) 845-102203-28-2024 NoteHNO ID: [id number] Author: OTRITO DUEÑAS PA-C Service: ? Author Type: Physician Kidney Puller Type: Progress Notes Filed: 11/19/2023 18:52 Note Text: Patient: Donna Rodriges : 1985 Providers Referring physician: Denny Stevens MD Primary care physician: Denny Stevesn MD Chief complaint: Patient presents with: Left Hip - Pain Patient seen in subspecialty orthopedic hip consultation at the request of Denny Stevens MD . The final recommendations will be communicated back to the requesting clinician by way of the shared medical record or letter via US mail. HPI: Donna Rodriges is a 38 year old male seen with a several years history of left hip pain. The onset of pain has been acute on chronic, and the pain is worsening over the past few months. The pain primarily localizes: left groin pain. PAIN EVALUATION 11/17/2023195111/19/2023 1500 Pain Level: 8 7 Pain Location: Hip-Left Hip-Left Description: Shooting Burning Duration Units: Months Unknown Frequency: Continuous Continuous Intervention/Comfort measure: Medication Medication;Reposition;Relaxation The patient denies preceding traumatic injury. The patient does have pain with weight-bearing. The patient does not have pain at night. The patient has difficulty with placing shoes and socks. The pain is exacerbated with ADL's, managing stairs, prolonged standing, recreational activities, and walking. He denies numbness, tingling, or electric shocks. He reports popping, catching, and instability. Alleviating factors: Nothing makes my pain better Prior pertinent orthopedic surgery: none Prior interventions: Physical therapy: Yes Injections/ aspiration: Yes minimal relief with most recent injection Bracing: No Assistive devise: cane Pain medications: Ibuprofen and Tylenol Past Medical History PAST MEDICAL HISTORY Diagnosis Date Asthma Cerebral palsy (HCC) DM2 (diabetes mellitus, type 2) (HCC) Gout HTN (hypertension) Hydrocephalus with operating shunt (HCC) Obesity hypoventilation syndrome (HCC) Sleep apnea on BiPap Past Surgical History PAST SURGICAL HISTORY Procedure Laterality Date SHUNT PLACEMENT W/ULTRASOUND GUIDANCE 1983 at PAST SURGICAL HISTORY OF 1988 heel cord lengthing, L REVISION OF A SHUNT 1988 Family History FAMILY HISTORY Problem Relation Age of Onset other (a fib [Other]) Father other (dm2 [Other]) Mother other (dm2 [Other]) Father Cancer Maternal Grandmother Cancer Paternal Grandfather other (heart diease [Other]) Paternal Grandfather Social History Social History Tobacco Use Smoking status: Never Smokeless tobacco: Never Vaping Use Vaping Use: Never used Substance Use Topics Alcohol use: Yes Comment: holidays Drug use: No Allergies: ALLERGIES Allergen Reactions Seasonal Allergies Other: See Comments Medications Current Outpatient Medications: Potassium Gluconate 2.[address] (PROTONIX) 40 mg tablet VICTOZA 3-DENITA 0.6 mg/0.1 mL (18 mg/3 mL) levETIRAcetam (KEPPRA) 500 mg tablet FARXIGA 10 mg tablet colchicine 0.6 mg tablet baclofen 20 mg tablet acetaminophen (TYLENOL) 325 mg tablet FLUoxetine HCl 20 mg tablet allopurinol (ZYLOPRIM) 300 mg tablet montelukast (SINGULAIR) 10 mg tablet traMADol (ULTRAM) 50 mg tablet Review of Systems: Reviewed and charted into [facility]. Physical Exam: PE reveals a male with the following vitals signs: Ht 162.6 cm (5' 4) Wt (!) 148.4 kg (327 lb 2.6 oz) BMI 56.16 kg/m? Body mass index is 56.16 kg/m?. General appearance: Well appearing, alert, in no acute distress, well-hydrated, well nourished. Psych: Mood and affect broad and appropriate Head: Normocephalic, no masses, lesions, tenderness or abnormalities Eyes: Anicteric sclera. Pupils are equally round and reactive to light. Extraocular movements are intact. ENT: Nares patent Lymph: There is no lymphadenopathy. The patient has a stable gait with cane. There is a negative Trendelenberg sign. HIP EXAM: Left Hip extension 10 degrees Hip flexion 90 degrees Hip IR (supine) 5 degrees Hip ER (supine) 5 degrees Hip aBduction 30 degrees Hip aDduction 15 degrees Knee extension 0 degrees Knee flexion 110 degrees Straight leg raise Intact Knee effusion No Knee stable Yes Point tenderness on palpation: The left hip is tender over the anterior aspect of the hip. Pain with resisted hip flexion: positive Pain with passive hip rotation: positive Skin: Normal temperature without erythema Scars: No Motor/sensory function: Intact DP/PT pulses: 2+ KNEE EXAM: Examination of the knees demonstrates normal ROM without pain. Radiology Findings: (I have reviewed appropriate radiology images and reports.) 11/16/23 Left hip XR RESULT: Dysplasia of the left acetabulum with severe joint space narrowing. Minimal right hip degenerative change. Maintained sacroiliac (more content not included)...[facility]03-25-2024 NoteHNO ID: [id number] Author: RICHIE LOUIS RT(R) Service: Radiology Author Type: Technologist Type: Progress Notes Filed: 11/16/2023 10:37 Note Text: Radiology Service Progress Note PATIENT NAME: Donna Rodriges DATE OF SERVICE: November 16, 2023 TIME: 10:28 AM PATIENT IDENTITY VERIFICATION COMPLETED USING TWO (2) [...] falls during this visit? Instructed Patient to Call for Help if Needed, Offered Assistance with Transfers/Clothing, and Increased Observations by Caregivers PATIENT GENDER DATA: Male PATIENT RELEVANT IMPLANT DATA REVIEWED: Yes PATIENT PRESENTS WITH AN IMPLANTABLE OR ATTACHED GROCERY MANAGER: No RADIOLOGY DEPARTMENT: General X-ray: Exam(s) Completed: Pelvis X-Ray: Pelvis with Hip Left PERIPHERAL IV DATA: Not applicable SIGNED BY: RT Shahrzad(Juliano) November 16, 2023 10:28 [facility]03-25-2024 History of Present illness Narrative* Richie Louis RT(R) - 11/16/2023 10:30 AM EDT Radiology Service Progress Note PATIENT NAME: Donna Rodriges DATE OF SERVICE: November 16, 2023 TIME: 10:28 AM PATIENT IDENTITY VERIFICATION COMPLETED USING TWO (2) IDENTIFIERS: Name and Date of confirmedby patient verbally. FALL SCREENING: Has the patient had 2 falls in the last year or 1 fall with injury or currently using an Ambulatory Assistive Device (Walker, Cane, Wheelchair, Crutches, etc.)? Yes, Patient High Riskfor Falls What interventions were put in place to prevent falls during this visit? Instructed Patient to Callfor Help if Needed, Offered Assistance with Transfers/Clothing, and Increased Observations by Caregivers PATIENT GENDER DATA: Male PATIENT RELEVANT IMPLANT DATA REVIEWED: Yes PATIENT PRESENTS WITH AN IMPLANTABLE OR ATTACHED GROCERY MANAGER: No RADIOLOGY DEPARTMENT: General X-ray: Exam(s) Completed: Pelvis X-Ray: Pelvis with Hip Left PERIPHERAL IV DATA: Not applicable SIGNED BY: RT Shahrzad(Juliano) November 16, 2023 10:28 AM documented in [facility]-2024 NoteHNO ID: [id number] Author: SIMIN HENDRIX, ? Service: ? Author Type: Physician Type: [...] palsy (HCC) DM2 (diabetes mellitus, type 2) ([facility]) Gout HTN (hypertension) Hydrocephalus with operating shunt ([facility]) Obesity hypoventilation syndrome (HCC) Sleep apnea on [...] seen and evaluated. 2. (more content not included)...[facility]02-13-2024 NoteHNO ID: [id number] Author: CAMRYN MILAN LPN Service: ? Author Type: LICENSED NURSE Type: Progress Notes Filed: 10/06/2023 14:44 Note Text: AMB ROOMING INTAKE FLOWSHEET DATA Risk Screening Do you have concerns about personal safety or safety in the home?: No Patient presents with: Left Foot - New, Diabetic Foot Care Right Foot - New, Diabetic Foot Care [facility]24 NoteHNO ID: [id number] Author: TONI GONZALEZ RT(R) Service: Radiology Author Type: Technologist Type: Progress Notes Filed: 10/06/2023 12:55 Note Text: Radiology Service Progress Note PATIENT NAME: Donna Rodriges DATE OF SERVICE: October 06, 2023 [...] PATIENT PRESENTS WITH AN IMPLANTABLE OR ATTACHED GROCERY MANAGER: No RADIOLOGY DEPARTMENT: General X-ray: Exam(s) Completed: Lower Extremity X-Ray(s): Foot, Bilateral PERIPHERAL IV DATA: Not applicable SIGNED BY: RT King(R) October 06, 2023 12:37 [facility]02-13-2024 Instructions* Patient Instructions* Simin Hendrix - 10/06/2023 2:41 PM EST Diabetes Foot [...] it. Apply a bandage and wear a differentpair of shoes. Take Care of Your Toenails Cut toenails after bathing, when they are soft. Cut toenails straight across and smooth with a nail file. Avoid cutting into the corners of toes. Do not cut cuticles. If you have neuropathy (or decreased sensation in your feet) a service center supervisor should always cut your toenails. Be Careful [...] make sure there are no foreign objects orrough areas. Avoid tight socks. Wear natural-fiber socks [...] Go to your health care provider or service center supervisor to treat these conditions. documented in this encounterPark[facility]02-13-2024 History of Present illness Narrative* Simin Hendrix - 10/06/2023 2:26 PM EST Initial Office Visit Subjective: This 38 year [...] toes when tested with the 5.07 SWM bilateral.Vibratory sensation is intact at the hallux bilateral. [...] full with knee flexed. No pain or crepitusnoted. STJ, MTJ ROM are full and free of pain or crepitus. Muscle strength is 5/5 for dorsiflexors,plantarflexors, inverters, everters. Digital deformities include none. Assessment: [...] with diabetic shoe. Avoid barefoot walking Simin Hendrix DPM * Camryn Milan LPN - 10/06/2023 2:11 PM EST AMB ROOMING INTAKE FLOWSHEET DATA Risk Screening Do you have concerns about personal safety or safety in the home?: No Patient presents with: Left Foot - New, Diabetic Foot Care Right Foot - New, Diabetic Foot Care Camryn Milan LPN documented in this encounterPark[facility] Health02-13-2024 History of Present illness Narrative* Tnoi Gonzalez RT(R) - 10/06/2023 1:20 PM EST Radiology Service Progress Note PATIENT NAME: Donna Rodriges DATE OF SERVICE: October 06, 2023 TIME: 12:37 PM PATIENT IDENTITY VERIFICATION COMPLETED USING TWO (2) IDENTIFIERS: Name and Date of confirmedby patient verbally. FALL SCREENING: Has the patient had 2 falls in the last year or 1 fall with injury or currently using an Ambulatory Assistive Device (Walker, Cane, Wheelchair, Crutches, etc.)? Yes, Patient High Riskfor Falls What interventions were put in place to prevent falls during this visit? Instructed Patient to Remain Seated (Not on Exam Table) Until Exam and Increased Observations by Caregivers PATIENT GENDER DATA: Male PATIENT RELEVANT IMPLANT DATA REVIEWED: Not Applicable PATIENT PRESENTS WITH AN IMPLANTABLE OR ATTACHED GROCERY MANAGER: No RADIOLOGY DEPARTMENT: General X-ray: Exam(s) Completed: Lower Extremity X- Ray(s): Foot, Bilateral PERIPHERAL IV DATA: Not applicable SIGNED BY: RT King(R) October 06, 2023 12:37 PM [facility] Author Sridhar Cardozo [facility] Note Date/Time January 09, 2025 7:19a m [facility] Medical Records Department [address] [place] [address] Pre-Anesthesia Evaluation 01/09/25 0718 MR#: [id number] Acct: [id number] Name: DONNA RODRIGES Rep #:[id number] : 1985 39 From: Sridhar Cardozo MD PCP: Dr. Aliza Roman MD Status:REG SDC Y Race: C Location: [place] [address] ASA Classification* ASA Classification ASA Classification: 3 Assessment & Plan Anesthesia* Anesthesia Assessment Anesthesia Assessment: Discussed sedation and/or anesthesia options, risks, benefits, and alternatives with patient/parents/legal guardian/POA. Questions invited. The patient/parents/legal guardian/POA seems to understand and agrees to proceedwith anesthesia plan. Reviewed the physical assessment, medical history, allergy history and patient home medications list prior to surgery/procedure/anesthetic and documented any changes. Performed airway and anesthesia risk assessments. Anesthesia Type Anesthesia Type: MAC Anesthesia Focused Assessment* Temperature: 97.8 F Pulse Rate: 85 Blood Pressure: 154/90 Respiratory Rate: 18 Pulse Ox: 94 Airway Assessment Mouth opens: >3 cm Mallampati Score: II Focused Labs Anesthesia Preop lab: CBC WBC 7.6 K/mm3 (4.4-11.0) 11/27/24 11:19 11/27/24 RBC 5.14 M/mm3 (4.6-6.2) 11/27/24 11:11/27/24 Hgb 15.1 g/dL (13.0-16.5) 11/27/24 11:11/27/24 Hct 45.3 % (40-54) 11/27/24 11:19 11/27/24 Plt Count 190 K/mm3 (150-450) 11/27/24 11:19 11/27/24 CHEMISTRY Potassium 3.9 mmol/L (3.3-5.1) 11/27/24 11:19 11/27/24 Sodium 138 mmol/L (133-145) 11/27/24 11:19 11/27/24 Magnesium 2.1 mg/dL (1.6-2.6) 10/28/20 05:30 10/28/20 Phosphorus 2.4 mg/dL (2.5-4.9) L 01/28/20 08:30 01/28/20 BUN 16 mg/dL (4-19) 11/27/24 11:19 11/27/24 Creatinine 0.61 mg/dL (0.70-1.20) L 11/27/24 11:19 Glucose 303 mg/dL (70-99) H 11/27/24 11:19 11/27/24 POC Glucose 287 mg/dL (74-106) H 08/29/24 10:07 08/29/24 TSH 3.80 uIU/mL (0.358-3.74) H 01/29/20 06:12 03/12 COAG PT 13.3 SECONDS (11.7-14.9) 02/14/22 13:37 Pre-Assessment Diagnosis/Proposed Procedure Planned Operative Procedure(s): left hip injection Anesthesia History 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 When Was Last Pacemaker Check QUESTION #4 FULL TEXT: You/Your Family Experience fever (hyperthermia) with Anesthesia Last Oral Intake Last Oral intake: Last Oral Intake NPO since 21:00 01/09/25 06:48 Meds taken in AM with sips of No 01/09/25 06:48 water? 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 Female HX of Motion Sickness HX of N/V After Surgery Non-Smoker Duration of Surgery greater than 60 minutes Number of Risk Factors PONV Score Height & Weight Height & Weight: Anesthesia: Height & Weight Height 5 ft 4 in 01/09/25 06:48 Weight: 159 kg 01/09/25 06:48 Body Mass Index (BMI) 60.1 01/09/25 06:48 Respiratory Assessment Respiratory Assessment - assistant professor of criminal justice: Respiratory Tract Infection Hx - assistant professor of criminal justice Hx Respiratory Tract Infection No 03/17/24 08:06 STOP Sleep Apnea STOP Sleep Apnea - assistant professor of criminal justice: STOP Sleep Apnea - assistant professor of criminal justice Hx Hypertension Yes: CONTROLLED WITH MEDS 03/17/24 08:06 Hx Sleep Apnea Yes 03/28/24 08:47 CPAP No 03/17/24 08:06 BIPAP Yes 03/17/24 08:06 Do you snore loudly (louder than talking or can be heard Do you often feel tired/ fatigued/ sleepy during daytime? Has anyone observed you stop breathing during sleep? STOP Results QUESTION #5 FULL TEXT : Do you snore loudly (louder than talking or can be heard through closed doors)? 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 Specify any problems Hx of Preganancy in last 3 Months Nurse Filling Out Transfusion & Questions: Date: Time: Patient unable to answer at this time (ie. 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: /Reproductive Hx- assistant professor of criminal justice Hx Now Gestational Age (in weeks): EDC: Hx Hx Para Hx Section SAB Active Medications Active Medications: Current Medications Generic Name Dose Route Start Last Admin Trade Name Freq PRN Reason Stop Dose Admin Lactated Ringer's 1,000 mls @ 15 mls/hr 01/09/25 06:30 01/09/25 07:03 IV 15 mls/hr .Q48H ZAIN Administration PFSH Medical History ROBERT treated with BiPAP Cerebral palsy Anxiety Chronic cough Diabetes Non-smoker History of echocardiogram History of stress test 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 Seizure disorder Depression Hypertension History of bronchitis History of pneumonia GERD (gastroesophageal reflux disease) Chest pain Vertigo Super obesity Bronchial asthma Gout Type II diabetes mellitus History of cerebral palsy Obstructive sleep apnea Benign hypertension Home Medications ?Medication ?Instructions ?Recorded ?Last Taken ?Type nebivolol 10 mg tablet 10 mg PO DAILY heart 5 08/28/24 History baclofen 20 mg tablet 20 mg PO Q12H muscle spasms 06/25/18 08/28/24 History pantoprazole 40 mg tablet,delayed 40 mg PO DAILY gi 08/28/24 History release levetiracetam 500 mg tablet 500 mg PO BID seizures 02/1008/28/24 History acetaminophen 325 mg tablet 650 mg (2 x 325 mg) PO Q6H PRN PRN 04/14/20 08/22/24 Rx Pain Score 1-10/Temp > 100.7 F furosemide 20 mg tablet 40 mg PO BID diuretic 08/28/24 History colchicine 0.6 mg tablet 0.6 mg PO PRN gout 12/02/21 08/22/24 History albuterol sulfate 2.5 mg/3 mL 2.5 mg (3 mL) inhalation Q4H PRN 01/05/23 Unknown Rx (0.083 %) solution for nebulization shortness of breat h or wheezing #180 mL albuterol sulfate 90 mcg/actuation 2 inh inhalation Q4 H PRN PRN Sob 01/05/23 Unknown Rx aerosol inhaler &/Or Wheezing #8.5 grams montelukast 10 mg tablet 10 mg PO DAILY allergies #90 tabs 01/05/23 08/28/24 Rx spacer #1 ea 01/05/23 Unknown Rx potassium citrate 10 mEq (1,080 10 meq PO DAILY 08/28/24 History mg) tablet,extended release allopurinol 300 mg tablet 300 mg PO BID gout 12/19/24 Unknown History 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 sensor (FreeStyle #2 ea 12/19/24 Unknown Rx Nancy 3 Plus Sensor device) 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,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,cont #1 ea 12/19/24 Unknown Rx (FreeStyle Nancy 3 [place]) celecoxib 200 mg capsule 200 mg PO DAILY 12/19/24 Unk nown History insulin regular hum U-500 conc 500 100 unit (0.2 mL) s ubcut TIDWMEAL 12/19/24 Unknown Rx unit/mL(3 mL) subcut pen (Humulin #18 mL R U-500 (Conc) Insulin Kwikpen) rosuvastatin 5 mg tablet 5 mg PO QDAY #30 tabs Unknown Rx tirzepatide 2.5 mg/0.5 mL 2.5 mg (0.5 mL) subcut QWEEK #2 mL 12/19/24 Unknown Rx subcutaneous pen injector (Mounjaro) Allergy/AdvReac Type Severity Reaction Status Date / Time animal dander Allergy Chest Verified 01/09/25 06:46 tightness grass pollen Allergy Other Verified 01/09/25 06:46 house dust Allergy Other Verified 01/09/25 06:46 pollen extracts Allergy Other Verified 01/09/25 06:46 Family History Father Chronic a-fib CVA (cerebral vascular accident) Mother ROBERT (obstructive sleep apnea) Breast cancer Grandfather Cancer bladder Other Diabetes Hypertension Thyroid disorder Surgical History H/O hernia repair H/O eye surgery S/P ENGINEERING ILLUSTRATOR shunt Social History Smoking Status: Never smoker Review of Systems (Anesthesia) ROS Narrative System reviewed and no additional complaints, except as documented. 01/09/25718 <Electronically signed by Sridhar Cardozo MD > Date _ Sridhar Cardozo MD Cosigner Signature: Date CC: ~ Signed [facility] Work Phone: Evaluation + Plan note No data available for this section [facility] Evaluation + Plan note Future Appointments Appointment Date:02/02/2024 01:30:00 PM Scheduled Provider: Location:[facility] Appointment Type:CT Head or Brain w/o Contrast Future Scheduled Tests Radiology* XR Shuntogram 01/19/24 * CT Head or Brain w/o Contrast 02/02/24 * XR Skull Minimum 4 Views 01/19/24 [facility] Evaluation note* Diagnosis Onset Date Resolution Status Obesity hypoventilation syndrome acute Bronchial asthma chronic Super obesity chronic History of cerebral palsy ch ronic Congenital dysplasia of left hip noneactive [facility] Work Phone: Evaluation note* Diagnosis Onset Date Resolution Status Hypoxia acute Obesity hypoventilation syndrome acute Bronchial asthma chronic [facility] Work Phone: Evaluation note* Diagnosis Onset Date Resolution Status Obesity hypoventilation syndrome acute Bronchial asthma chronic Super obesity chronic History of cerebral palsy ch ronic Cerebral palsy noneactive Congenital dysplasia of left hip noneactive [facility] Work Phone: Evaluation note* Diagnosis Onset Date Resolution Status Obesity hypoventilation syndrome acute Bronchial asthma chronic Super obesity chronic Hip pain acute 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 [facility] Work Phone: Evaluation note* Diagnosis Onychomycosis- Primary Dermatophytosis of nail Pain in toe of left foot Pain in limb Pain in toe of right foot Pain in limb Callus of foot Corns and callosities [facility] Pain Generalized [facility] Pain- Primary Generalized pain [facility] Diagnosis Pain in left hip- Primary Pain in joint, pelvic region and thigh [facility] Diagnosis Pain Generalized pain [facility] Diagnosis Onset Date Resolution Status Hip pain acute 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 acute Obesity hypoventilation syndrome acute Bronchial asthma chronic Super obesity chronic [facility] Work Phone: Evaluation noteNo assessment information available [facility] Work Phone: Hospital Discharge instructions No data available for this section [facility] Hospital Discharge instructions Additional Instructions Call your pain management physician on Thursday. You can continue Tylenol up to 3 g / 3000 mg a day. Continue your tramadol as previously directed. You have evidence of spinal stenosis on your CT scan.[facility] Work Phone: Hospital Discharge instructions Additional Instructions Follow-up with your PCP and return for any worsening symptoms.[facility] Work Phone: Progress note No data available for this section [facility] Reason for referral (narrative)* Diagnostic Procedure Only (Routine) - Authorized Specialty Diagnoses / Procedures Referred By Contac t Referred To Contact XR IMAGING Diagnoses Pain Procedures XR HIP GENERAL 3V PELV/AP/LAT LEFT RADEX HIP UNILATERAL WITH PELVIS 2-3 VIEWS Torito Dueñas PA-C [address] [address] Xr Imaging [place] [address] Referral ID Status Reason Start Date Expiration Date Visits Requested Visits Authorized [id number] Authorized Auto-Generat ed Referral 10/13/2023 11/11/2024 1 1 [facility] for referral (narrative)* Diagnostic Procedure Only (Routine) - Pending Review Specialty Diagnoses / Procedures Referred By Contac t Referred To Contact XR IMAGING Diagnoses Pain in left hip Procedures XR HIP GENERAL 3V PELV/AP/LAT LEFT RADEX HIP UNILATERAL WITH PELVIS 2-3 VIEWS Philippe Lamb MD [address] [facility] [place] [address] Xr Imaging [facility] Referral ID Status Reason Start Date Expiration Date Visits Requested Visits Authorized [id number] Pending Review Auto-Generat ed Referral 10/14/2023 11/11/2024 1 1 [facility] for referral (narrative)No [facility] for [facility] Work [facility]: Reason for visit Narrative* Diagnostic Procedure Only (Routine) - Closed Specialty Diagnoses / Procedures Referred By Contac t Referred To Contact XR IMAGING Diagnoses Pain Procedures XR FOOT GENERAL 3V AP/LAT/OBL BILATERAL RADEX FOOT COMPLETE MINIMUM 3 VIEWS Simin Hendrix [address] [place] [address] [place] [address] Referral ID Status Reason Start Date Expiration Date V isits Requested Visits Authorized [id number] Closed Auto-Generate d Referral 09/18/2023 10/17/2024 1 1 [facility]* Diagnostic Procedure Only (Routine) - Closed Specialty Diagnoses / Procedures Referred By Contac t Referred To Contact XR IMAGING Diagnoses Pain Procedures XR HIP GENERAL 3V PELV/AP/LAT LEFT RADEX HIP UNILATERAL WITH PELVIS 2-3 VIEWS Torito Dueñas PA-C [address] [address] [place] [address] Referral ID Status Reason Start Date Expiration Date V isits Requested Visits Authorized [id number] Closed Auto-Generate d Referral 10/13/2023 11/11/2024 1 1 [facility] Chief Complaint and Reason for Visit Chief Complaint 4 M FU LEFT HIP xray Fever Reason for Visit Obesity hypoventilat ion syndrome Bronchial asthma Super obesity History of cerebral palsy Congenital dysplasia of left hip Chief Complaint Fever 4 M FU UPPER Reason for Visit Hypoxia Obesity hypoventilation syndrome Bronchial asthma Chief Complaint 6 M FU LEFT HIP PAIN LEFT HIP PAIN AFTER FALL Reason for Visit Obesity hypoventilat ion syndrome Bronchial asthma Super obesity History of cerebral palsy Cerebral palsy Congenital dysplasia of left hip Chief Complaint 6 M FU LEFT HIP PAIN LEFT HIP PAIN AFTER FALL ABD PAIN/HERNIA Reason for Visit Obesity hypoventilat ion syndrome Bronchial asthma Super obesity History of cerebral palsy Cerebral palsy Congenital dysplasia of left hip Chief Complaint 6 M FU LEFT HIP Reason for Visit Obesity hypoventilat ion syndrome Bronchial asthma Super obesity Hip pain 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 Chief Complaint LEFT HIP 4 M FU back Reason for Visit Hip pain 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 Obesity hypoventilation syndrome Bronchial asthma Super obesity Chief Complaint LEFT HIP 4 M FU back back Reason for Visit Hip pain 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 Obesity hypoventilation syndrome Bronchial asthma Super obesity Chief Complaint LEFT HIP 4 M FU back back back Reason for Visit Hip pain 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 Obesity hypoventilation syndrome Bronchial asthma Super obesity Chief Complaint Admit Date FASTING September 21, 2024 8 :22am R LE EDEMA October 28, 2024 12:4 8pm Chief Complaint Admit Date FASTING September 21, 2024 8 :22am R LE EDEMA October 28, 2024 12:4 8pm PAIN RLE October 28, 2024 1:07 pm edema November 27, 2024 11:0 0am Chief Complaint Admit Date FASTING September 21, 2024 8 :22am R LE EDEMA October 28, 2024 12:4 8pm PAIN RLE October 28, 2024 1:07 pm edema November 27, 2024 11:0 0am Diabetes December 19, 2024 1:2 9pm Reason for Visit Admit Date Benign hypertension December 19, 2024 1:2 9pm Fatty liver disease, nonalcoholic December 19, 2024 1:29pm Hyperlipemia December 19, 2024 1:2 9pm Obesity December 19, 2024 1:2 9pm Type II diabetes mellitus December 19 1:29pm Chief Complaint Admit Date R LE EDEMA October 28, 2024 12:4 8pm PAIN RLE October 28, 2024 1:07 pm edema November 27, 2024 11:0 0am Diabetes December 19, 2024 1:2 9pm 6 M FU January 23, 2025 2:35p m Chief Complaint Admit Date R LE EDEMA October 28, 2024 12:4 8pm PAIN RLE October 28, 2024 1:07 pm edema November 27, 2024 11:0 0am Diabetes December 19, 2024 1:2 9pm 6 M FU January 23, 2025 2:35p m 7 Wk FU February 06, 2025 12:5 8pm Reason for Visit Admit Date Benign hypertension December 19, 2024 1:2 9pm Fatty liver disease, nonalcoholic December 19, 2024 1:29pm Hyperlipemia December 19, 2024 1:2 9pm Obesity December 19, 2024 1:2 9pm Type II diabetes mellitus December 19 1:29pm Bronchial asthma January 23, 2025 2:35p m Hypoxia January 23, 2025 2:35p m Obesity hypoventilation syndrome January 2:35pm Super obesity January 23, 2025 2:35p m Family History No Family History Records Found Relationship Condition Age at Onset Recorded Date/T rigoberto Not Specified Diabetes mellitus Unknown father Chronic atrial fibrillation Unknown Cerebrovascular accident (CVA) Unknown mother Obstructive sleep apnea syndrome Unknown Malignant neoplasm of breast Unknown grandfather Malignant neoplasm Unknown Relationship Condition Age at Onset Recorded Date/T rigoberto Not Specified Diabetes mellitus Unknown Hypertension Unknown Disorder of thyroid Unknown father Chronic atrial fibrillation Unknown Cerebrovascular accident (CVA) Unknown mother Obstructive sleep apnea syndrome Unknown Malignant neoplasm of breast Unknown grandfather Malignant neoplasm Unknown Advance Directives No Advanced Directives Records Found Advance Directive Response Recorded Date/ Time Advance Directives Yes April 11:10am Living Will No February 14, 2022 1:41pm Power of Agent Licensing Clerk No February 14 1:41pm Advance Directive Response Recorded Date/ Time Advance Directives Yes February 27 2:09pm Living Will No May 02 9:07pm Power of Agent Licensing Clerk No May 02, 2022 9:07pm Advance Directive Response Recorded Date/ Time Advance Directives Yes February 27 2:09pm Living Will No January 13, 2023 2 :25pm Power of Agent Licensing Clerk No January 13, 2023 2:25pm Advance Directive Response Recorded Date/ Time Advance Directives Yes February 27 2:09pm Living Will No February 15, 2023 10:20am Power of Agent Licensing Clerk No February 15 10:20am Advance Directive Response Recorded Date/ Time Advance Directives Yes February 27 1:09pm Living Will No February 15, 2023 9:20am Power of Agent Licensing Clerk No February 15 9:20am Advance Directive Response Recorded Date/ Time Advance Directives Yes February 27 2:09pm Living Will No December 05, 2023 11:10am Power of Agent Licensing Clerk No December 04 11:10am Advance Directive Response Recorded Date/ Time Advance Directives Yes February 27 2:09pm Living Will No December 18, 2023 10:28pm Power of Agent Licensing Clerk No December 17 10:28pm Advance Directive Response Recorded Date/ Time Advance Directives Yes February 27 2:09pm Living Will No December 23, 2023 5: 08pm Power of Agent Licensing Clerk No December 23, 2023 5:08pm Advance Directive Response Recorded Date/ Time Living Will No October 28, 2024 2:17pm Power of Agent Licensing Clerk No October 28 2:17pm Advance Directives Yes February 27 1:09pm Advance Directive Response Recorded Date/ Time Living Will No October 28, 2024 3:17pm Do you have a Healthcare Power of Agent Licensing Clerk? No October 28, 2024 3:17pm Living Will No November 27, 2024 11:04am Do you have a Healthcare Power of Agent Licensing Clerk? No November 27, 2024 11:04am Advance Directives Yes February 27 2:09pm Summary Purpose Additional Source Comments Goals (unrecognized section and content) Goals may be documented in a n alternate section Care Teams (unrecognized sec tion and content) Team Status: Active Member Role Status Dates Dr. Manpreet Milan MD Family Provider Active Dr. Aliza Roman MD Primary Care Provider Active Team Status: Inactive Member Role Status Dates Dr. Aliza Roman MD Primary Care Provider, Referrin g Provider Active Dania Norris RN DERMATOLOGY, RN DERMATOLOGY-C Attending Provider Active Team Status: Inactive Member Role Status Dates Dr. Aliza Roman MD Primary Care Provider, Referrin g Provider Active GUICHO Gill Attending Provider Active Team Status: Inactive Member Role Status Dates Dr. Aliza Roman MD Primary Care Provider Active Dr. Asif Mast MD Attending Provider, Emergency Provider Active Team Status: Inactive Member Role Status Dates Dr. Aliza Roman MD Primary Care Provider Active GUICHO Gill Attending Provider, Referring Provi jaclyn Active Team Status: Inactive Member Role Status Dates Dr. Aliza Roman MD Primary Care Prov ider, Attending Provider, Referring Provider Active Team Status: Inactive Member Role Status Dates Dr. Aliza Roman MD Primary Care Provider Active Dr. Robinson Guillen DO Emergency Provider Active Team Status: Inactive Member Role Status Dates Dr. Aliza Roman MD Primary Care Provider, Referluis e g Provider Active Dr. Kenneth Gaytan MD Attending Provider Active Team Status: Inactive Member Role Status Dates Dr. Aliza Roman MD Primary Care Provider, Referrin g Provider Active Denny Santos MD Attending Provider Active Team Status: Inactive Member Role Status Dates Dr. Aliza Roman MD Primary Care Provider Active Dr. Alejandro Gray MD Attending Provider, Referring Pr ovider Active Language Tutor Relationship Specialty Start Date End Date Denny Stevens MD [address] [place] [address] PCP - General Family Medicine 07/21/22 Denny Santos MD [address] [place] [id number] Referring Sports Medicine 08/31/23 Language Tutor Relationship Specialty Start Date End Date Denny Stevens MD [address] [place], [place] [id number] PCP - General Family Medicine 07/21/22 Denny Santos MD [address] [place] [address] [phone] Referring Sports Medicine 08/31/23 Language Tutor Relationship Specialty Start Date End Date Denny Stevens MD [address] [place], [place] [address] PCP - General Family Medicine 07/21/22 Denny Santos MD [address] [place] [address] [phone] Referring Sports Medicine 08/31/23 Language Tutor Relationship Specialty Start Date End Date Denny Stevens MD [address] [place] [address] PCP - General Family Medicine 07/21/22 Denny Santos MD [address] [facility] [address] [place] [address] Referring Sports Medicine 08/31/23 Team Status: Inactive Member Role Status Dates Dr. Aliza Roman MD Primary Care Provider Active Romulo Estrella MD Emergency Provider Active Team Status: Inactive Member Role Status Dates Dr. Aliza Roman MD Primary Care Provider Active Romulo Estrella MD Attending Provider, Emergency Provid er Active Team Status: Inactive Member Role Status Dates Dr. Aliza Roman MD Primary Care Provider Active Dr. Zeny Dumont MD Emergency Provider Active Team Status: Active Member Role Status Dates Dr. Aliza Romna MD Primary Care Provider Active Team Status: Inactive Member Role Status Dates Dr. Aliza Roman MD Primary Care Provider Active Start: August 29, 2024 End: August 29, 2024 Dr. Carlos Ibarra MD Attending Provider Active Start: August 29, 2024 End: August 29, 2024 Dr. Carlos Ibarra MD Referring Provider Active Start: August 29, 2024 End: August 29, 2024 Team Status: Inactive Member Role Status Dates Dr. Aliza Roman MD Primary Care Provider Active Start: September 21, 2024 End: September 21, 2024 Dr. Aliza Roman MD Attending Provider Active Start: September 21, 2024 End: September 21, 2024 Dr. Aliza Roman MD Referring Provider Active Start: September 21, 2024 End: September 21, 2024 Team Status: Inactive Member Role Status Dates Dr. Aliza Roman MD Primary Care Provider Active Start: October 28, 2024 End: October 28, 2024 Dr. Madhu Page DO Referring Provider Active Start: October 28, 2024 End: October 28, 2024 Dr. Madhu Page DO Emergency Provider Active Start: October 28, 2024 End: October 28, 2024 Team Status: Inactive Member Role Status Dates Dr. Aliza Roman MD Primary Care Provider Active Start: October 28, 2024 End: October 28, 2024 Dr. Madhu Page DO Attending Provider Active Start: October 28, 2024 End: October 28, 2024 Dr. Madhu Page DO Referring Provider Active Start: October 28, 2024 End: October 28, 2024 Dr. Madhu Page DO Emergency Provider Active Start: October 28, 2024 End: October 28, 2024 Team Status: Active Member Role Status Dates Dr. Mamadou Mendoza MD Attending Provider Active Start: October 28, 2024 Dr. Hafsa Salcedo DO Referring Provider Active Start: October 28, 2024 Team Status: Inactive Member Role Status Dates Dr. Aliza Roman MD Primary Care Provider Active Start: November 27, 2024 End: November 27, 2024 Dr. Davonte Mendez DO Emergency Provider Active Start: November 27, 2024 End: November 27, 2024 Team Status: Inactive Member Role Status Dates Dr. Aliza Roman MD Primary Care Provider Active Start: November 27, 2024 End: November 27, 2024 Dr. Davonte Mendez DO Attending Provider Active Start: November 27, 2024 End: November 27, 2024 Dr. Davonte Mendez DO Emergency Provider Active Start: November 27, 2024 End: November 27, 2024 Team Status: Inactive Member Role Status Dates Dr. Aliza Roman MD Primary Care Provider Active Start: December 19, 2024 End: December 19, 2024 Dr. Aliza Roman MD Referring Provider Active Start: December 19, 2024 End: December 19, 2024 ROBERT Winter Attending Provider Active Start: December 19, 2024 End: December 19, 2024 Team Status: Inactive Member Role Status Dates Dr. Aliza Roman MD Primary Care Provider Active Start: January 09, 2025 End: January 09, 2025 Dr. Carlos Ibarra MD Attending Provider Active Start: January 09, 2025 End: January 09, 2025 Dr. Carlos Ibarra MD Referring Provider Active Start: January 09, 2025 End: January 09, 2025 Team Status: Inactive Member Role Status Dates Dr. Aliza Roman MD Primary Care Provider Active Start: January 23, 2025 End: January 23, 2025 Dr. Aliza Roman MD Referring Provider Active Start: January 23, 2025 End: January 23, 2025 Dania Norris NP, RN DERMATOLOGY-C Attending Provider Active Start: January 23, 2025 End: January 23, 2025 Team Status: Inactive Member Role Status Dates Dr. Aliza Roman MD Primary Care Provider Active Start: February 06, 2025 End: February 06, 2025 Dr. Aliza Roman MD Referring Provider Active Start: February 06, 2025 End: February 06, 2025 SANA WinterC Attending Provider Active Start: February 06, 2025 End: February 06, 2025 Source Comments (unrecognize d section and content) In the event this informatio n is protected by the Federal Confidentiality of Alcohol and Drug Abuse Patient Records regulations: The Federal rules restrict any use of the information to criminally investigate or prosecute any alcohol or drug abuse patient.[facility] Health[facility] the event this information is protected by the Federal Confidentiality of Alcohol and Drug Abuse Patient Records regulations: The Federal rules restrict any use of the information to criminally investigate or prosecute any alcohol or drug abuse patient.[facility] HealthIn the event this information is protected by the Federal Confidentiality of Alcohol and Drug Abuse Patient Records regulations: The Federal rules restrict any use of the information to criminally investigate or prosecute any alcohol or drug abuse patient.[facility] Health[facility] the event this information is protected by the Federal Confidentiality of Alcohol and Drug Abuse Patient Records regulations: The Federal rules restrict any use of the information to criminally investigate or prosecute any alcohol or drug abuse patient.[facility] HealthIn the event this information is protected by the Federal Confidentiality of Alcohol and Drug Abuse Patient Records regulations: The Federal rules restrict any use of the information to criminally investigate or prosecute any alcohol or drug abuse patient.[facility] Reason for Visit (unrecogniz ed section and content) Reason Comments New Di[facility] (unrecognized sect ion and content) No Status Records FoundNo Status Records FoundNo Status Records Found INFORMATION SOURCE (unrecogn ized section and content) DATE CREATED AUTHOR 11/20/2023 [facility] DATE CREATED AUTHOR AUTHOR'S ORGANIZ ATION 02/04/2024 [facility] ([place]) DATE CREATED AUTHOR AUTHOR'S ORGANIZ ATION 02/08/2025 [facility] FOR RECORDS PERTAINING TO PATIENTS WHO ARE [...] BE BASED ON THE PRIMARY CLINICAL RECORDS. [employer] [facility]. provides no warranty or guarantee of the accuracy or completeness of information in this document.
--- NOTE | 2025-04-23 17:05 | RAD_ITS ---
PROCEDURE: HIP, UNI W/ PELVIS 2-3 VIEWS 04/23/2025 REASON FOR EXAM: INJURY/PAIN TECHNIQUE: Procedure Code: RADHP Modality: DX Procedure: HIP, UNI W/ PELVIS 2-3 VIEWS Laterality: Left COMPARISON: November 27, 2024, January 13, 2023 FINDINGS: Bones: No fracture seen. Joints: Severe joint space narrowing with flattening, remodeling, sclerosis, subchondral cyst formation. Soft tissues: Soft tissues are unremarkable. Note: The femoral heads are aspherical. RAD/HIP, UNI W/ Pelvis 2-3 Views IMPRESSION: Very severe osteoarthritis of the left hip. This has significantly worsened si nce December 2022. No fracture. Note: The femoral heads are aspherical. Correlate with impingement. Orthopedi c consultation suggested to ensure no significant bony reduction and bone stock and remodeling of the acetabulum in this young pa tient. Reading Location: [id number]
[2025-04-23 17:10] LABS: Hematocrit 43.6 % (40-54); Hemoglobin 14.5 g/dL (13.0-16.5); Immature Granulocytes Count 0.090 X10^3/uL (0.0-0.0); Mean Corp Hgb Conc 33.3 g/dL (32-36); Mean Corpuscular Volume 86.7 fL (80-94); Mean Platelet Vol. 10.7 fl (6.2-12.0); NRBC Flagged by Analyzer 0 % (0-5); Platelet Count 206 K/mm3 (150-450); RBC Distribution Width CV 14.9 % (11.6-14.6); RBC Distribution Width SD 46.8 fl (35.1-43.9); Red Blood Count 5.03 M/mm3 (4.6-6.2); White Blood Count 9.8 K/mm3 (4.4-11.0)
[2025-04-23 17:33] LABS: Anion Gap 13 (5-15); BUN 12 mg/dL (4-19); BUN/Creat Ratio 20.1 RATIO (10-20); Calcium,Total 8.9 mg/dL (7.6-11.0); Carbon Dioxide 25.1 mmol/L (21.0-32.0); Chloride 105 mmol/L (98-108); Estimated Creatinine Clearance 227.69 ml/min (50-250); Glucose 195 mg/dL (70-99); Potassium 4.0 mmol/L (3.3-5.1)
[2025-04-23 18:45] VITALS: BP 124/82; PULSE 87; RESP 15; TEMP 36.4; O2SAT 99
== END 2025-04-23 19:15 | disposition home or self-care (01) ==
PROVIDERS: Emergency Provider Emergency Medicine; PCP Family Medicine; Visit Provider Emergency Medicine
DX: M16.12 Unilateral primary osteoarthritis, left hip (principal); Z68.43 Body mass index [BMI] 50.0-59.9, adult; E66.2 Morbid (severe) obesity with alveolar hypoventilation; E11.9 Type 2 diabetes mellitus without complications; K76.0 Fatty (change of) liver, not elsewhere classified; Z98.2 Presence of cerebrospinal fluid drainage device
CPT/HCPCS: 73502; 80048; 85025; 85652; 99283; A4216

== ENCOUNTER 2025-06-12 06:48 | Day surgery (SDC) | payer MEDICARE, MEDICAID, SELFPAY ==
[2025-06-12] VITALS (7 sets, daily range): BP systolic 115–142; BP diastolic 71–93; PULSE 77–98; RESP 6–18; TEMP 36.6–36.8; O2SAT 92–99; BMI 60.9
--- OUTSIDE RECORDS SUMMARY | 2025-06-12 06:59 | XMS RPT_ITS | CCD ---
Author Organization [facility] Care Team Providers Care Commercial Service Technician Name Role Phone ALIZA ROMAN Primary Care Physician [phone] Dr. Aliza Roman Primary Care Provider [phone] Dr. Aliza Roman Referring Provider Dr. Kenneth Gaytan Attending Provider GUICHO Gonzalez Attending Provider Dr. Bruce Victor Attending Provider [phone] Aliza Roman Primary Care Provider [phone] Aliza Roman Referring Provider Myrna MANAGER NIGHT, MANAGER NIGHT-C Dania Attending Provider Dr. Aliza Roman Primary Care Provider [phone] Dr. Aliza Roman Referring Provider Myrna MANAGER NIGHT, MANAGER NIGHT-C Dania Attending Provider GUICHO Gonzalez Attending Provider Dr. Aliza Roman Primary Care Provider [phone] Dr. Aliza Roman Referring Provider Dr. Kenneth Gaytan Attending Provider MD Denny Santos Attending Provider Denny Stevens MD Primary Care Provider [phone] Denny Santos MD Unavailable Dr. Aliza Roman Primary Care Provider [phone] Dr. Aliza Roman Referring Provider [phone] Kenneth Gaytan Attending Provider MD Denny Santos Attending Provider [phone] SIMIN HENDRIX Referring Unavailable NANCY, DENNY MICHAELS Primary Care Unavailable SIMIN HENDRIX Attending Unavailable NANCY, DENNY MICHAELS Primary Care Unavailable NANCY, DENNY MICHAELS Primary Care Unavailable TORITO DUEÑAS Attending Unavailable NANCY, DENNY MICHAELS Primary Care Unavailable TORITO DUEÑAS Referring Unavailable Dr. Aliza Roman Primary Care Provider Dr. Aliza Roman Referring Provider [phone] Myrna MANAGER NIGHT, MANAGER NIGHT-C Dania Attending Provider ALIZA ROMAN Primary Care Physician [phone] MARGARETTE ARELLANO-LOBSTER FISHERMANKAILA Attending Unavail able ALIZA ROMAN Primary Care Unavailable MARGARETTE STRUCTURAL STEEL SHOP SUPERVISOR-LOBSTER FISHERMAN, KAILA Attending Unavail able ALIZA ROMAN Primary Care Unavailable Dr. Aliza Roman MD Primary Care Provider [phone] Dr. Carlos Ibarra MD Attending Provider Dr. Carlos Ibarra MD Referring Provider Dr. Aliza Roman MD Attending Provider [phone] Aliza Roman MD Referring Provider [phone] Dr. Madhu Page DO Referring Provider [phone] Madhu Page DO Emergency Provider Dr. Aliza Roman MD Primary Care Provider Dr. Carlos Ibarra MD Attending Provider Dr. Carlos Ibarra MD Referring Provider Dr. Aliza Roman MD Attending Provider Dr. Aliza Roman MD Referring Provider Dr. Madhu Page DO Attending Provider Camilo GIVENS, Dr. Leung Referring Provider Camilo GIVENS, Dr. Leung Emergency Provider Reji GONZALEZ, Dr. Mamadou Maradiaga Attending Provider Denisse GIVENS, Dr. Pereyra Referring Provider Andrea GIVENS, Dr. Arauz Emergency Provider Jessie GONZALEZ, Dr. Abrams Primary Care Provider Dr. Davonte Mendez DO Attending Provider Karan MANAGER NIGHT-CLesvia Attending Provider Fred GONZALEZ, Dr. Gonzalez Attending Provider [phone] Fred GONZALEZ, Dr. Gonzalez Referring Provider Jessie GONZALEZ, Dr. Abrams Primary Care Provider Jessie GONZALEZ, Dr. Abrams Referring Provider Myrna MANAGER NIGHT-CDania Attending Provider Jessie GONZALEZ, Dr. Abrams Primary Care Provider Jessie GONZALEZ, Dr. Abrams Referring Provider [phone] Karan MANAGER NIGHT-CLesvia Attending Provider [phone] Dr. Dre Johnson MD Emergency Provider [phone] Bobby Mas Attending Unavailable Bobby Mas Referring Unavailable Flaco Guadalupe Attending Unavaila ble No, Physician Referring Unavailable Miedel, Aliza Primary Care Unavailable Davonte Mendez Attending Unavailable Carlos Ibarra Referring Unavailable Carlos Ibarra Attending Unavailable Lovelyel, Aliza Primary Care Unavailable Carlos Ibarra Referring Unavailable Carlos Ibarra Attending Unavailable Miedel, Aliza Primary Care Unavailable Miedel, Aliza Primary Care Unavailable Miedel, Aliza Attending Unavailable Miedel, Aliza Referring Unavailable Dre Johnson Attending Unavailable Miedel, Aliza Primary Care Unavailable Carlos Ibarra Referring Unavailable Carlos Ibarra Attending Unavailable Miedel, Aliza Primary Care Unavailable Vtedel, Aliza Primary Care Unavailable Carlos Ibarra Referring Unavailable Carlos Ibarra Attending Unavailable Vtedel, Aliza Primary Care Unavailable Lesvia Russo Attending Unavailable Miedel, Aliza Referring Unavailable Miedel, Aliza Primary Care Unavailable Dania Norris NP Attending Unavailable Miedel, Aliza Referring Unavailable Miedel, Ailza Primary Care Unavailable Lesvia Russo Attending Unavailable Miedel, Aliza Referring Unavailable Miedel, Aliza Primary Care Unavailable Madhu Page Attending Unavailable Madhu Page Referring Unavailable Allergies Allergy Classification Reported Allergen(s) Allergy Type Date of Onset Reaction(s) Facility DULoxetine (1 source) DULoxetine; Translations: [duloxetine] Drug Allergy Seizure (finding) [facility] (1 source) Dust Allergy to substance 2 SNEEZING, COUGHING [facility] Work Phone: (1 source) Pollen Allergy to substance 2 SNEEZING, COUGHING [facility] Work Phone: (1 source) grass Allergy to substance 2 SNEEZING, COUGHING [facility] Work Phone: (15 sources) Grass pollen; Translations: [grass pollen] Allergy to substance 2 Other [facility] Comment on above: SNEEZING, COUGHING (14 sources) house dust allergenic extract Drug Allergy 2 [facility] Comment on above: SNEEZING, COUGHING (14 sources) Pollen Allergy to substance 2 [facility] Comment on above: SNEEZING, COUGHING (1 source) bird dander Allergy to substance 2 Chest tightness [facility] Work Phone: (14 sources) animal dander; Translations: [animal dander] Allergy to substance 3 Chest tightness [facility] Comment on above: bird dander (6 sources) Seasonal allergy; Translations: [SEASONAL ALLERGIES] Allergy to substance 1 Other: See Comments [facility] Work Phone: (1 source) DULoxetine; Translations: [duloxetine] Drug Allergy Seizure (finding) [facility] (1 source) DULoxetine Drug Allergy [facility] (1 source) house dust allergenic extract Drug Allergy [facility] (1 source) Pollen Drug allergy (disorder) [facility] Medications Current Medications Medication Drug Class(es) Dates Sig (Normalized) Sig (Original) acetaminophen 325 mg / HYDROcodone bitartrate 5 mg oral tablet (20 sources) Opioid Agonist Start: 04-23-2025 take 2 tablets by mouth every six hours as needed for pain Hydrocodone-Acetamin ophen 5-325 mg tablet Active 1 {tbl} PO EVERY 6 HOURS NEEDED as needed for Pain 20 5 0 April 23, 2025 Osteoarthritis of left hip Type 2 diabetes mellitus Body mass index (BMI) greater than 50 Unilateral primary osteoarthritis, left hip Type 2 diabetes mellitus with hyperglycemia 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 Start: 12-18-2023 End: 03-17-2024 Hydrocodone-Acetaminophen 5- 325 mg tablet Discontinued 1 [...] 6 HOURS NEEDED as needed for Pain 20 5 0 January 30, 2023 February 03, 2023 12:00am February 04, 2023 12:05am Contusion of left hip Dysplasia of hip Contusion of left hip, initial encounter Other specified congenital deformities of hip Start: 01-13-2023 End: 02-04-2023 take 1 tablet by mouth every six hours as needed Hydrocodone-Acetaminophen Discontinued 1 TABLET PO EVERY 6 HOURS NEEDED 20 5 January 30, 2023 February 04, 2023 12:05am [id number] 200 actuat albuterol 0.09 mg/actuat metered dose inhaler (20 sources) beta2-Adrenergic Agonist Start: 01-05-2023 Albut balwinder Sulfate 90 mcg/actuation HFA aerosol inhaler Active 2 NMA INHALATION EVERY 4 HOURS NEEDED as needed for Sob &/Or Wheezing 8.5 11 January 05, 2023 1:06pm Start: 01-05-2023 Albuterol Sulf ate Active 2 INH INHALATION EVERY 4 HOURS NEEDED 8.5 January 05, 2023 1:06pm Start: 01-05-2023 take [...] 2.5 mg INHALATION EVERY 4 HOURS NEEDED 25 0 January 23, 2014 12:00am January 27, 2014 2:32pm Use q4 hours and PRN for wheezing Albuterol Sulfate 2.5 mg /3 mL (0.083 %) solution for nebulization (6 sources) Start: 01-05-2023 take 2.5 mg by inhalation every four hours as needed for wheezing Albuterol Sulfate 2.5 mg /3 mL (0.083 %) solution for nebulization Active 2.5 mg INHALATION Q4H as needed for shortness of breath or wheezing 180 11 January 05, 2023 1:06pm Start: 01-05-2023 take [...] TWICE A DAY December 19, 2024 1:19pm gout Start: 05-16-2014 End: 12-19-2024 take 1 tablet by mouth once daily Allopurinol 300 MG tablet Discontinued 300 mg PO DAILY June 09, 2015 12:00am December 19, 2024 1:22pm gout Comment on above: Take 1 tablet by scott th once daily. Baclofen (20 sources) gamma-Aminobutyric Acid-ergic Agonist Start: 01-19-2024 BACLOFEN 20 MG TABLE T BACLOFEN 20 MG TABLET, 0 Refill(s) Start Date: 01/19/24 Status: Ordered Start: 06-25-2018 take 1 tablet by scott th every twelve hours Baclofen 20 MG tablet Active 20 mg PO Q12H June 25, 2018 12:00am muscle spasms Start: 06-25-2018 take 20 mg by mouth once daily Baclofen Active 20 MG PO DAILY June 25, 2018 12:00am Comment on above: Take 1 tablet by scott th every afternoon. Blood-Glucose Sensor (Freestyle Nancy 3 Plus Sensor) device (6 sources) Start: 02-06-2025 Blood-Glucose Sensor (Freestyle Nancy 3 Plus Sensor) device Active 0 .Route 2 February 06, 2025 1:26pm Type 2 diabetes mellitus Type 2 diabetes mellitus without complications 1 sensor 15 q days Start: 02-06-2025 Blood-Glucose Sensor (Freestyle Nancy 3 Plus Sensor) device Active 0 .Route 2 February 06, 2025 1:26pm 1 sensor 15 q days Start: 12-19-2024 End: 02-06-2025 Blood-Glucose Sensor (Freest yle Nancy 3 Plus Sensor) device Discontinued 0 .Route 2 December 19, 2024 12:00am February 06, 2025 1:27pm Type 2 diabetes mellitus Type 2 diabetes mellitus without complications 1 sensor 15 q days Start: 12-19-2024 End: 02-06-2025 Blood-Glucose Sensor (Freest yle Nancy 3 Plus Sensor) device Discontinued 0 .Route 2 December 19, 2024 12:00am February 06, 2025 1:27pm 1 sensor 15 q days Start: 12-19-2024 Blood-Glucose Sensor (Freestyle Nancy 3 Plus Sensor) device Active 0 .Route 2 December 19, 2024 12:00am 1 sensor 15 q days Blood-Glucose,Railroad Engineer,Cont (Freestyle Nancy 3 [place]) misc (4 sources) Start: 12-19-2024 Blood-Glucose,Railroad Engineer,Cont (Freestyle Nancy 3 [place]) misc Active 0 .Route 1 0 December 19, 2024 12:00am Type 2 diabetes mellitus Type 2 diabetes mellitus without complications As directed Start: 12-19-2024 Blood-Glucose, Railroad Engineer,Cont (Freestyle Nancy 3 [place]) [facility] Active 0 .Route 1 December 19, 2024 12:00am As directed Budesonide-Formoterol (20 sources) Corticosteroid, beta2-Adrenergic Agonist Start: 01-23-2025 Budesonide-Formoterol (Symbicort) 160-4.5 mcg/actuation HFA aerosol inhaler Active 2 NMA INHALATION TWICE A DAY 1 January 23, 2025 12:00am administer with spacer, rinse mouth after each use Start: 01-23-2025 Budesonide-For moterol (Symbicort) 160-4.5 mcg/actuation HFA aerosol inhaler Active 2 NMA INHALATION TWICE A DAY January 23, 2025 12:00am administer with spacer, rinse mouth after each use Start: 01-05-2023 End: 12-19-2024 Budesonide-Formoterol (Symbi ale) 160-4.5 mcg/actuation HFA aerosol inhaler Discontinued 2 NMA INHALATION TWICE A DAY 10.2 January 05, 2023 1:06pm December 19, 2024 1:31pm Start: 01-05-2023 End: 12-19-2024 Budesonide-Formoterol (Symbi ale) [...] Discontinued 2 NMA INHALATION TWICE A DAY November 06, 2020 11:00pm July 08, 2022 2:03pm administer with spacer, rinse mouth after each use Start: 11-07-2020 End: 07-08-2022 take 1 puff(s) by mouth twice daily Budesonide-Formoterol (Symbicort) 160-4.5 mcg/actuation HFA aerosol inhaler Discontinued 2 PUFF INHALATION TWICE A DAY November 06, 2020 11:00pm July 08, 2022 [...] 07, 2016 12:00am November 07, 2020 1:36pm lungs Start: 05-07-2016 End: 11-07-2020 Budesonide-Formoterol 1 INHA [...] 2020 1:36pm celecoxib 200 mg oral capsule (4 sources) Nonsteroidal Anti-inflammatory Drug Start: 12-19-2024 take 1 capsule by mouth once daily Celecoxib 200 mg capsule Active 200 mg PO DAILY December 19, 2024 12:00am colchicine 0.6 mg oral tablet (19 sources) Start: 12-02-2021 Colchicine 0.6 mg tablet Active 0.6 mg PO NEEDED December 02, 2021 12:00am gout Comment on above: take 1 tablet by scott every 6 hours if needed for GOUT [...] Discontinued 100 mg PO TWICE A DAY 20 0 May 02, 2022 12:00January 05, 2023 12:43pm Start: 02-14-2022 End: 02-27-2022 take 1 capsule by mouth twice daily Doxycycline Hyclate 100 mg capsule Discontinued 100 mg PO TWICE A DAY 14 0 February 14, 2022 12:00am February 27, 2022 1:42pm furosemide 40 mg oral tablet (20 sources) Loop Diuretic Start: 01-19-2024 furosemide 40 mg oral tablet Dose : 40 mg = 1 tab(s), 0 Refill(s) Start Date: 01/19/24 Status: Ordered Start: 10-13-2021 take 2 tablets by mo ut twice daily Furosemide 20 MG tablet Active 40 mg PO TWICE A DAY October 13, 2021 1:54pm diuretic Start: 10-13-2021 take 40 mg by mouth twice janice y Furosemide Active 40 MG PO TWICE A DAY October 13, 2021 1:54pm Start: 01-30-2020 End: 10-13-2021 take 2 tablets by mouth once daily Furosemide 20 MG tablet Discontinued 40 mg PO DAILY 0 0 January 30, 2020 9:25am October 13, 2021 1:54pm diuretic Start: 01-30-2020 End: 10-13-2021 take 40 mg by mouth once daily Furosemide Discontinued 40 MG PO DAILY 0 January 30, 2020 9:25am October 13, 2021 1:54pm Start: 06-09-2015 End: 01-30-2020 take 2 tablets by mouth twice daily Furosemide 20 MG tablet Discontinued 40 mg PO TWICE A DAY June 09, 2015 12:00am January 30, 2020 9:25am diuretic Start: 06-09-2015 End: 01-30-2020 take 40 mg [...] insulin, regular, human 500 unt/ml pen injector (6 sources) Insulin Start: 02-06-2025 Insulin Regula r Hum U-500 Conc (Humulin R U-500 (Conc) Kwikpen) 500 unit/mL (3 mL) insulin pen Active 115 U SC 3 times per day with meals 18 February 06, 2025 1:27pm Type 2 diabetes mellitus Type 2 diabetes mellitus without complications Start: 12-19-2024 End: 02-06-2025 Insulin Regular Hum U-500 Co nc (Humulin R U-500 (Conc) Kwikpen) 500 unit/mL (3 mL) insulin pen Discontinued 100 U SC 3 times per day with meals 08 01December 19, 2024 12:00am February 06, 2025 1:28pm Type 2 diabetes mellitus Type 2 diabetes mellitus without complications Ipratropium (14 sources) Anticholinergic Start: 11-23-2023 Ipratropium Br omide Active 2 SPRAY INTRANASAL TWICE A DAY November 23, 2023 2:03pm Start: 07-23-2023 End: 11-23-2023 Ipratropium [place] 21 mcg ( 0.03 %) spray,non-aerosol Discontinued 2 NMA INTRANASAL TWICE A DAY July 23, 2023 1:00am November 23, 2023 2:04pm Start: 07-23-2023 End: 11-23-2023 Ipratropium [place] Disconti nued 2 SPRAY INTRANASAL TWICE A [...] mg PO DAILY June 25, 2018 12:00am gi Comment on above: Take 1 tablet by scott th every afternoon. potassium citrate 10 meq extended release oral tablet (13 sources) Start: 07-23-2023 take 1 tablet by [...] MG tablet Discontinued 60 mg PO DAILY@0800 15 0 January 23, 2014 12:00am January 27, 2014 2:32pm Start: 01-23-2014 End: 01-27-2014 take 60 mg by mouth once daily Prednisone Discontinued 60 MG PO DAILY@0800 15 January 23, 2014 12:00am January 27, 2014 2:32pm rosuvastatin calcium 5 mg oral tablet (4 sources) HMG-CoA Reductase Inhibitor Start: 12-19-2024 take 1 tablet by mouth once daily Rosuvastatin 5 mg tablet Active 5 mg PO daily 30 December 19, 2024 12:00am Hyperlipidemia Hyperlipidemia, unspecified spacer (13 sources) Start: 01-05-2023 spacer Active 0 .ROUTE .MEDSUPPLY 1 January 05, 2023 12:00am As directed Start: 01-05-2023 spacer Active 0 .ROUTE .MEDSUPPLY January 04, 2023 11:00pm As directed Start: 01-05-2023 spacer Active 0 .ROUTE .MEDSUPPLY January 05, 2023 12:00am As directed Tirzepatide (Mounjaro) 5 mg/ 0.5 mL pen injector (2 sources) Start: 02-06-2025 Tirzepatide (M ounjaro) 5 mg/0.5 mL pen injector Active 5 mg SC EVERY WEEK 2 February 06, 2025 12:00am Type 2 diabetes mellitus Type 2 diabetes mellitus with hyperglycemia 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 0 04/14/2020 Active Start: 04-14-2020 Acetaminophen 325 MG tablet Active 650 mg PO EVERY 6 HOURS NEEDED as needed for Pain Score 1-10/Temp > 100.7 F 0 April 14, 2020 12:00am Start: 04-14-2020 take 650 mg by mouth every six hours as needed Acetaminophen Active 650 MG PO EVERY 6 HOURS NEEDED April 14, 2020 12:00am Comment on above: Take by mouth. amoxicillin 500 mg / clavulanate 125 mg oral tablet (20 sources) Penicillin-class Antibacterial Start: 02-14-2022 End: 02-27-2022 Amoxicillin-Pot Clavulanate (Augmentin) 500-125 mg tablet Discontinued 1 {tbl} PO TWICE A DAY 14 0 February 14, 2022 12:00am February 27, 2022 1:41pm Start: 05-16-2016 End: 05-19-2016 take 1 tablet by mouth every twelve hours Amoxicillin-Pot Clavulanate 875 MG tablet Discontinued 875 mg PO Q12H 20 0 May 16, 2016 12:00am May 19, 2016 [...] 15, 2020 2:28pm December 19, 2024 1:31pm depression Start: 08-15-2020 take 20 mg by mouth once daily Fluoxetine Active 20 MG PO DAILY August 15, 2020 2:28pm Start: 01-28-2020 End: 08-15-2020 take 1 capsule by mouth once daily Fluoxetine 10 mg capsule Discontinued 10 mg PO DAILY January 28, 2020 12:00am August 15, 2020 2:28pm depression Start: 06-09-2015 End: 03-23-2019 take 1 capsule by mouth once daily Fluoxetine 10 MG capsule Discontinued 10 mg PO DAILY June 09, 2015 12:00am March 23, 2019 1:19pm depression take 1 tablet by scott th once daily FLUoxetine HCl 20 mg tablet Take 20 mg by mouth once daily. 0 Active Comment on above: Take 20 mg by mouth once daily. fluticasone propionate 0.05 mg/actuat metered dose nasal spray (20 sources) Corticosteroid Start: 03-23-2019 End: 12-19-2024 Fluticasone Propionate 50 mcg/actuation spray,suspension Discontinued 2 NMA INTRANASAL DAILY 09 07November 23, 2023 2:10pm December 19, 2024 1:31pm allergies Start: 03-23-2019 End: 11-23-2023 Fluticasone Propionate Disco [...] TWICE A DAY as needed for Congestion 14 0 January 22, 2017 11:13pm January 24, 2017 6:16pm hydrOXYzine hydrochloride 25 mg oral tablet (15 sources) Antihistamine Start: 12-09-2018 End: 03-23-2019 take 1 tablet by mouth three to four times daily as needed Hydroxyzine Hcl 25 mg tablet Discontinued 25 mg PO 3 to 4 times per day as needed December 09, 2018 12:00am March 23, 2019 1:20pm 3 ml insulin glargine 100 unt/ml pen injector (4 sources) Insulin Analog Start: 12-19-2024 End: 12-19-2024 Insulin Glargine (Lantus Solostar U-100 Insulin) 100 unit/mL (3 mL) insulin pen Discontinued 0 - 50 U SC AT BEDTIME December 19, 2024 12:00am December 19, 2024 2:36pm 3 ml insulin lispro 100 unt/ml pen injector (4 sources) Insulin Analog Start: 12-19-2024 End: 12-19-2024 Insulin Lispro (Humalog Kwikpen Insulin) 100 unit/mL insulin pen Discontinued 40 U SC THREE TIMES A DAY December 19, 2024 12:00am December 19, 2024 2:36pm Ipratropium [place] 21 mcg (0.03 %) spray,non-aerosol (6 sources) Start: 11-23-2023 End: 12-19-2024 Ipratropium [place] 21 mcg (0.03 %) spray,non-aerosol Discontinued 2 NMA INTRANASAL TWICE A DAY 30 November 23, 2023 2:03pm December 19, 2024 1:31pm Start: 11-23-2023 End: 12-19-2024 Ipratropium [place] 21 mcg ( 0.03 %) spray,non-aerosol Discontinued [...] 28, 2020 9:43am January 23, 2025 2:49pm seizures levocetirizine dihydrochloride 5 mg oral tablet (15 sources) Histamine-1 Receptor Antagonist Start: 06-25-2018 End: 03-23-2019 take 1 tablet by mouth once daily Levocetirizine 5 MG tablet Discontinued 5 mg PO DAILY June 25, 2018 12:00am March 23, 2019 1:22pm allergy 3 ml liraglutide 6 mg/ml pen injector (19 sources) GLP-1 Receptor Agonist Start: 12-02-2021 End: [...] 23, 2019 1:21pm January 21, 2023 1:21pm diabetes Start: 03-23-2019 End: 01-21-2023 take 1000 mg by mouth twice daily Metformin Discontinued 1000 MG PO TWICE A DAY March 23, 2019 1:21pm January 21, 2023 1:21pm Start: 06-09-2015 End: 03-23-2019 take 1 tablet by mouth once daily Metformin 500 MG tablet Discontinued 500 mg PO DAILY June 09, 2015 12:00am March 23, 2019 1:23pm diabetes Start: 05-16-2014 End: 10-06-2023 take 1 tablet [...] 26, 2016 12:00am January 05, 2023 1:07pm allergies Comment on above: Take 1 tablet by scott th once daily. Multivitamin With Minerals 1 EACH tablet (6 sources) Start: 0 End: 5 take 1 tablet by mouth once daily Multivitamin With Minerals 1 EACH tablet Discontinued 1 {tbl} PO DAILY January 28, 2020 12:00am December 19, 2024 1:31pm vitamin Start: 01-28-2020 End: 12-19-2024 take 1 tablet by mouth [...] TWICE A DAY as needed for pain 20 0 December 19, 2023 12:00am December 19, 2024 [...] 09, 2015 12:00am January 23, 2025 2:49pm heart Comment on above: Take 1 tablet by scott th once daily. nystatin 100 unt/mg topical powder (15 sources) Polyene Antifungal Start: 01-30-2020 End: 11-23-2023 Nystatin 1 APPLIC bottle Discontinued 1 NMA TOPICAL THREE TIMES A DAY 1 0 January 30, 2020 12:00am November 23, 2023 1:47pm SKIN ISSUES Please contact the information source for Protocol details. Start: 01-30-2020 End: 11-23-2023 Nystatin Discontinued 1 APPL IC TOPICAL THREE TIMES A DAY 1 January 30, 2020 12:00am November 23, 2023 1:47pm SKIN ISSUES oxyCODONE hydrochloride 5 mg oral tablet (15 sources) Opioid Agonist Start: 04-14-2020 End: 04-16-2020 take 1 tablet by mouth every six hours as needed for pain Oxycodone 5 MG tablet Discontinued 5 mg PO EVERY 6 HOURS NEEDED as needed for Pain Score 6-10/10 8 2 0 April 14, 2020 April 15, 2020 12:00am April 16, 2020 12:02am Gout Gout, unspecified potassium chloride 10 meq extended release oral tablet (15 sources) Start: 07-14-2013 End: 09-30-2013 take 1 tablet by mouth once daily Potassium Chloride 10 MEQ tablet Discontinued 10 meq PO DAILY July 14, 2013 1:00am September 30, 2013 5:36pm potassium gluconate 2.5 meq oral tablet (19 sources) Start: 06-25-2018 Potassium Gluc wilman 2.5 mEq tab Take 1,080 mg by mouth. 0 06/25/2018 Active Start: 06-25-2018 End: 07-23-2023 Potassium 99 MG tablet Disco ntinued 1080 mg PO DAILY June 25, 2018 12:00am July 23, 2023 2:09pm supplement Start: 06-25-2018 End: 07-23-2023 take 1080 mg by mouth once daily Potassium Discontinued 1080 MG PO DAILY June 25, 2018 12:00am July 23, 2023 2:09pm Comment on above: Take 1,080 mg by scott mondragon Semaglutide (6 sources) Start: 05-31-2024 End: 12-19-2024 Semaglutide (Ozempic) [...] Mg (2 Mg/3 Ml) Subcutaneous Pen Injector] (7 sources) Start: 12-23-2023 End: 05-31-2024 Semaglutide [Semaglutide [...] 2023 12:00am SITagliptin 25 mg oral tablet (4 sources) Dipeptidyl Peptidase 4 Inhibitor Start: 12-19-2024 End: 12-19-2024 take 4 tablets by mouth once daily Sitagliptin Phosphate (Januvia) 25 mg tablet Discontinued 100 mg PO DAILY December 19, 2024 12:00am December 19, 2024 2:10pm theophylline 400 mg extended release oral capsule (15 sources) Methylxanthine Start: 01-22-2017 End: 03-23-2019 take 1 capsule by mouth twice daily Theophylline 400 MG capsule,extended release 24hr Discontinued 400 mg PO TWICE A DAY January 22, 2017 12:00am March 23, 2019 1:45pm Lungs Tirzepatide (Mounjaro) 2.5 mg/0.5 mL pen injector (4 sources) Start: 12-19-2024 End: 02-06-2025 Tirzepatide (Mounjaro) 2.5 mg/0.5 mL pen injector Discontinued 2.5 mg SC EVERY WEEK 2 December 19, 2024 12:00am February 06, 2025 1:26pm Type 2 diabetes mellitus Type 2 diabetes mellitus without complications Start: 12-19-2024 End: 02-06-2025 Tirzepatide (Mounjaro) 2.5 m g/0.5 mL pen injector Discontinued 2.5 mg SC EVERY WEEK 2 December 19, 2024 12:00am February 06, 2025 1:26pm Start: 12-19-2024 Tirzepatide (M ounjaro) 2.5 mg/0.5 mL pen injector Active 2.5 mg SC EVERY WEEK 2 December 19, 2024 12:00am traMADol hydrochloride 50 mg oral tablet (11 sources) Opioid Agonist Start: 12-23-2023 End: 03-17-2024 take 1 tablet by mouth three times daily Tramadol 50 mg tablet Discontinued 50 mg PO THREE TIMES A DAY December 23, 2023 12:00am March 17, 2024 8:08am Start: 10-05-2023 traMADol (ULTR AM) 50 mg tablet Problems Active Problems Problem Classification Problem Date Documented Date [...] [facility]. Acute bronchitis (15 sources) Acute bronchitis with bronchospasm; Translations: [Acute bronchitis, unspecified] 10-01-2013 Episodic Asthma (20 sources) Exacerbation of asthma; Translations: [Unspecified asthma with (acute) exacerbation] Chronic Conditions associated with dizziness or vertigo (15 sources) Vertigo; Translations: [Dizziness and giddiness] 12-09-2018 Episodic Diabetes mellitus with complications (1 source) Type 2 diabetes mellitus with hyperglycemia; Translations: [Type 2 diabetes mellitus with hyperglycemia] Onset: 5 Chronic Diabetes mellitus without complication (20 sources) Type 2 diabetes mellitus; Translations: [Type 2 diabetes mellitus without complications] Onset: 4 05-02-2022 Chronic Disorders of lipid metabolism (9 sources) Hyperlipidemia; Translations: [Hyperlipidemia, unspecified] Onset: 5 12-19-2024 Chronic E Codes: Fall (18 sources) Fall on same level from slipping; Translations: [Fall on same level from slipping, tripping and stumbling without subsequent striking against object, initial encounter] 01-21-2023 Episodic Epilepsy; convulsions (2 sources) Epilepsy 01-15-2024 Chronic Epilepsy; convulsions (5 sources) Seizure related finding; Translations: [Unspecified convulsions] 11-27-2024 Episodic Esophageal disorders (15 sources) Gastroesophageal reflux disease; Translations: [Gastro-esophageal reflux disease without esophagitis] 10-27-2020 Chronic Essential hypertension (20 sources) Benign hypertension; Translations: [Essential (primary) hypertension] Onset: 5 12-09-2018 Chronic Fever of unknown origin (15 sources) Fever; Translations: [Fever, unspecified] 02-22-2022 Episodic Gastritis and duodenitis (15 sources) Acute gastritis; Translations: [Acute gastritis without bleeding] 07-30-2019 Episodic Gout and other crystal arthropathies (20 sources) Gout; Translations: [Gout, unspecified] 01-28-2020 Chronic Lymphadenitis (15 sources) Mesenteric lymphadenitis; Translations: [Nonspecific mesenteric lymphadenitis] 01-25-2017 Episodic Mycoses (1 source) Onychomycosis; Translations: [Tinea unguium] 10-06-2023 Episodic Nervous system congenital anomalies (7 sources) Congenital hydrocephalus; Translations: [Congenital hydrocephalus, unspecified] Onset: 4 10-06-2023 Chronic Nonspecific chest pain (15 sources) Chest pain; Translations: [Chest pain, unspecified] 04-14-2020 Episodic Osteoarthritis (19 sources) 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; Translations: [Unilateral osteoarthritis resulting from hip dysplasia, left hip] Onset: 5 08-31-2023 Chronic Other congenital anomalies (4 sources) Other specified congenital deformities of hip; Translations: [Other congenital deformity of hip (joint)] Onset: 5 Chronic Other congenital anomalies (13 sources) Disorder of hip joint; Translations: [Other specified congenital deformities of hip] 01-21-2023 Chronic Other connective tissue disease (15 sources) Foot pain; Translations: [Pain in right foot] 04-14-2020 Episodic Other connective tissue disease (1 source) Pain of toe of left foot; Translations: [Pain in left toe(s)] 10-06-2023 Episodic Other connective tissue disease (1 source) Pain of toe of right foot; Translations: [Pain in right toe(s)] 10-06-2023 Episodic Other connective tissue disease (6 sources) Swelling of right lower limb; Translations: [Other specified soft tissue disorders] 10-28-2024 Episodic Other connective tissue disease (6 sources) Pain in calf; Translations: [Pain in right lower leg] 10-28-2024 Episodic Other liver diseases (7 sources) Fatty (change of) liver, not elsewhere classified; Translations: [Nonalcoholic fatty liver disease] 12-19-2024 Chronic Other liver diseases (15 sources) Elevated liver enzymes level; Translations: [Abnormal levels of other serum enzymes] 01-25-2017 Episodic Other lower respiratory disease (15 sources) Dyspnea on exertion; Translations: [Dyspnea, unspecified] 03-23-2019 Episodic Other lower respiratory disease (15 sources) Cough; Translations: [Cough] 02-22-2022 Episodic Other lower respiratory disease (17 sources) Hypoxia; Translations: [Hypoxemia] 10-27-2020 Episodic Other lower respiratory disease (1 source) Hypoxemia; Translations: [Hypoxemia] Episodic Other nervous system disorders (13 sources) Ventriculoperitoneal shunt in situ; Translations: [Presence of cerebrospinal fluid drainage device] 04-13-2020 Chronic Comment on above: 2 WEEKS AFTER Other nervous system disorders (15 sources) H/O: brain disorder; Translations: [Personal history of other diseases of the nervous system and sense organs] 12-09-2018 Episodic Other nervous system disorders (3 sources) Personal history of other diseases of the nervous system and sense organs; Translations: [Personal history of other disorders of nervous system and sense organs] Episodic Other non-traumatic joint disorders (16 sources) Hip pain; Translations: [Pain in unspecified hip] 12-02-2021 Episodic Other non-traumatic joint disorders (5 sources) Pain in unspecified hip; Translations: [Pain in joint, pelvic region and thigh] 08-31-2023 Episodic Other non-traumatic joint disorders (1 source) Pain in left hip; Translations: [Pain in left hip] Onset: 5 Episodic Other nutritional; endocrine; and metabolic disorders (20 sources) Morbid obesity; Translations: [Obesity, unspecified] Onset: 4 04-13-2020 Chronic Other nutritional; endocrine; and metabolic disorders (17 sources) Alveolar hypoventilation; Translations: [Morbid (severe) obesity with alveolar hypoventilation] 10-17-2021 Chronic Comment on above: BiPAP 24/ centimet ers of water Other nutritional; endocrine; and metabolic disorders (9 sources) Morbid (severe) obesity with alveolar hypoventilation; Translations: [Obesity hypoventilation syndrome] Chronic Other nutritional; endocrine; and metabolic disorders (8 sources) Obesity, unspecified; Translations: [Obesity, unspecified] Chronic Other nutritional; endocrine; and metabolic disorders (8 sources) Obesity; Translations: [Obesity, unspecified] 12-19-2024 Chronic Other nutritional; endocrine; and metabolic disorders (1 source) Body mass index 40+ - severely obese 04-23-2025 Chronic Other skin disorders (1 source) Foot callus; Translations: [Corns and callosities] 10-06-2023 Episodic Paralysis (2 sources) Cerebral palsy, unspecified; Translations: [Infantile cerebral palsy, unspecified] 01-21-2023 Chronic Residual codes; unclassified (15 sources) Obstructive sleep apnea syndrome; Translations: [Obstructive sleep apnea (adult) (pediatric)] 12-09-2018 Chronic Residual codes; unclassified (3 sources) Pain; Translations: [Pain, unspecified] 10-06-2023 Episodic Residual codes; unclassified (1 source) Pain, unspecified; Translations: [Pain] Onset: Episodic Residual codes; unclassified (5 sources) Edema of lower extremity; Translations: [Localized edema] 11-27-2024 Episodic Skin and subcutaneous tissue infections (14 sources) Cellulitis; Translations: [Cellulitis, unspecified] 2022 Episodic Spondylosis; intervertebral disc disorders; other back problems (20 sources) Backache; Translations: [Dorsalgia, unspecified] 12-05-2023 Episodic Sprains and strains (15 sources) Lower back injury; Translations: [Strain of muscle, fascia and tendon of lower back, initial encounter] 06-03-2019 Episodic Superficial injury; contusion (13 sources) Contusion of hip; Translations: [Contusion of left hip, initial encounter] 01-21-2023 Episodic Past or Other Problems Problem Classification Problem Date Documented Da te Episodic/Chronic Other aftercare (1 source) 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; Translations: [intermediate (current) use of insulin] Onset: 02-06-2025 Episodic Other connective tissue disease (1 source) Pain in right lower leg; Translations: [Pain in right lower leg] Onset: 12-19-2024 Episodic Other non-traumatic joint disorders (1 source) Pain in right hip; Translations: [Pain in right hip] Onset: 01-13-2025 Episodic Residual codes; unclassified (1 source) Edema, unspecified; Translations: [Edema, unspecified] Onset: 12-19-2024 Episodic Results Test Name Value Interpretation Reference Range Facility Absolute lymphocyte countOrd ered By: [facility] on 04-23-2025 Lymphocytes Auto (Unsp spec) [#/Vol] 2.44 10*3/uL 0.83-4.51 [facility] Absolute neutrophil countOrd ered By: [facility] on 04-23-2025 Neutrophils (Bld) [#/Vol] 6.3 10*3/uL 2.0-7.7 [facility] Anion gap in Serum or Plasma Ordered By: [facility] on 04-23-2025 Anion gap [Moles/Vol] 13 mmol/L 5-15 [facility] Automated lymphocyte count a s percentage of total leukocytesOrdered By: [facility] on 04-23-2025 Lymphocytes/100 WBC Auto (Unsp spec) 24.9 % - [facility] BUN/creatinine ratioOrdered By: [facility] on 04-23-2025 Urea nitrogen/Creatinine [Mass ratio] 20.1 mg/mg High 06-12 [facility] Basic Metabolic Profile (BMP )on 04-23-2025 BUN/CRE 20.1 RATIO High 06-12 [facility] Comment on above: Performed By: #### L 502.0250, L500.4050, L500.4100 #### [facility] [address] [place], [place], [id number] Calcium [Mass/Vol] 8.9 mg/dL Normal 7.6-11.0 [facility] Comment on above: Performed By: #### L 502.0250, L500.4050, L500.4100 #### [facility] [address] [place], [address] Chloride [Moles/Vol] 105 mmol/L Normal 98-108 [facility] Comment on above: Performed By: #### L 502.0250, L500.4050, L500.4100 #### [facility] [address] [place], [address] CO2 [Moles/Vol] 25.1 mmol/L Normal 21.0-32.0 [facility] Comment on above: Performed By: #### L 502.0250, L500.4050, L500.4100 #### [facility] [address] [place], [address] Creatinine [Mass/Vol] 0.60 mg/dL Low 0.70-1.20 [facility] Comment on above: Performed By: #### L 502.0250, L500.4050, L500.4100 #### [facility] [address] [place], [address] ECRCL 227.69 ml/min Normal 50-250 [facility] Comment on above: Performed By: #### L 502.0250, L500.4050, L500.4100 #### [facility] [address] [place], [address] GAP 13 Normal 5-15 [facility] Comment on above: Performed By: #### L 502.0250, L500.4050, L500.4100 #### [facility] [address] [place], [address] GFR/1.73 sq M.predicted among non-blacks MDRD (S/P/Bld) [Vol rate/Area] 125 mL/min/{1.73_m2} Normal >60 [facility] Comment on above: Result Comment: mL/m in/1.73m2 CKD-EPI Creatinine Equation (2020) Performed By: #### L 502.0250, L500.4050, L500.4100 #### [facility] [address] [place], [address] Glucose [Mass/Vol] 195 mg/dL High 70-99 [facility] Comment on above: Performed By: #### L 502.0250, L500.4050, L500.4100 #### [facility] [address] [place], [address] Potassium [Moles/Vol] 4.0 mmol/L Normal 3.3-5.1 [facility] Comment on above: Performed By: #### L 502.0250, L500.4050, L500.4100 #### [facility] [address] [place], [address] Sodium [Moles/Vol] 143 mmol/L Normal 133-145 [facility] Comment on above: Performed By: #### L 502.0250, L500.4050, L500.4100 #### [facility] [address] [place], [address] Urea nitrogen [Mass/Vol] 12 mg/dL Normal 4-19 [facility] Comment on above: Performed By: #### L 502.0250, L500.4050, L500.4100 #### [facility] [address] [place], [address] Basophil percentageOrdered B y: Dre Johnson on 04-23-2025 Basophils/100 WBC (Bld) 0.5 % 0-1 [facility] CBC W/Diff, Automatedon 03-26 Absolute Lymph 2.44 X10 3/uL Normal 0.83-4.51 [facility] Comment on above: Performed By: #### L 502.0250, L500.4050, L500.4100 #### [facility] [address] [place], [address] Absolute Neut 6.3 X10 3/uL Normal 2.0-7.7 [facility] Comment on above: Performed By: #### L 502.0250, L500.4050, L500.4100 #### [facility] [address] [place], [address] Basophils/100 WBC (Bld) 0.5 % Normal 0-1 [facility] Comment on above: Performed By: #### L 502.0250, L500.4050, L500.4100 #### [facility] [address] [place], [address] Eosinophils/100 WBC (Bld) 3.1 % Normal 0-5 [facility] Comment on above: Performed By: #### L 502.0250, L500.4050, L500.4100 #### [facility] [address] [place], [address] Erythrocyte distribution width (RBC) [Ratio] 14.9 % High 11.6-14.6 [facility] Comment on above: Performed By: #### L 502.0250, L500.4050, L500.4100 #### [facility] [address] [place], [address] Hematocrit (Bld) [Volume fraction] 43.6 % Normal 40-54 [facility] Comment on above: Performed By: #### L 502.0250, L500.4050, L500.4100 #### [facility] [address] [place], [address] Hemoglobin (Bld) [Mass/Vol] 14.5 g/dL Normal 13.0-16.5 [facility] Comment on above: Performed By: #### L 502.0250, L500.4050, L500.4100 #### [facility] [address] [place], [address] IG% 0.900 Normal 0.0-0.9 [facility] Comment on above: Result Comment: IG% - Immature Granulocytes (promyelocytes, myelocytes and metamyelocytes) > 1% indicates that a LEFT SHIFT is Present. Performed By: #### L 502.0250, L500.4050, L500.4100 #### [facility] [address] [place], [address] Lymphocytes/100 WBC (Bld) 24.9 % Normal 19-41 [facility] Comment on above: Performed By: #### L 502.0250, L500.4050, L500.4100 #### [facility] [address] [place], [address] MCH (RBC) [Entitic mass] 28.8 pg Normal 27.0-32.0 [facility] Comment on above: Performed By: #### L 502.0250, L500.4050, L500.4100 #### [facility] [address] [place], [address] MCHC (RBC) [Mass/Vol] 33.3 g/dL Normal 32-36 [facility] Comment on above: Performed By: #### L 502.0250, L500.4050, L500.4100 #### [facility] [address] [place], [address] MCV (RBC) [Entitic vol] 86.7 fL Normal 80-94 [facility] Comment on above: Performed By: #### L 502.0250, L500.4050, L500.4100 #### [facility] [address] [place], [address] Monocytes/100 WBC (Bld) 6.6 % Normal 0-10 [facility] Comment on above: Performed By: #### L 502.0250, L500.4050, L500.4100 #### [facility] [address] [place], [address] Neutrophils/100 WBC (Bld) 64.0 % Normal 47-70 [facility] Comment on above: Performed By: #### L 502.0250, L500.4050, L500.4100 #### [facility] [address] [place], [address] Nucleated RBC (Bld) [#/Vol] 0 10*3/uL Normal 0-5 [facility] Comment on above: Performed By: #### L 502.0250, L500.4050, L500.4100 #### [facility] [address] [place], [address] Platelet mean volume (Bld) [Entitic vol] 10.7 fL Normal 6.2-12.0 [facility] Comment on above: Performed By: #### L 502.0250, L500.4050, L500.4100 #### [facility] [address] [place], [address] Platelets (Bld) [#/Vol] 206 10*3/uL Normal 150-450 [facility] Comment on above: Performed By: #### L 502.0250, L500.4050, L500.4100 #### [facility] [address] [place], [address] RBC (Bld) [#/Vol] 5.03 10*6/uL Normal 4.6-6.2 [facility] Comment on above: Performed By: #### L 502.0250, L500.4050, L500.4100 #### [facility] [address] [place], [address] RDW SD 46.8 fl High 35.1-43.9 [facility] Comment on above: Performed By: #### L 502.0250, L500.4050, L500.4100 #### [facility] [address] [place], [address] WBC (Bld) [#/Vol] 9.8 10*3/uL Normal 4.4-11.0 [facility] Comment on above: Performed By: #### L 502.0250, L500.4050, L500.4100 #### [facility] [address] [place], [place], [id number] Carbon dioxide, total [Moles /volume] in Central venous bloodOrdered By: Dre Johnson on 04-23-2025 CO2 [Moles/Vol] 25.1 mmol/L 21.0-32.0 [facility] Chloride assayOrdered By: Molina Johnson on 04-23-2025 Chloride [Moles/Vol] 105 mmol/L 98-108 [facility] Emergency Department Summary on 04-23-2025 Emergency Department Summary [facility] Medical Records Department [address] [place] [address] Emergency Department Summary 04/23/25 MR#: [id number] Acct: [id number] Name: DONNA RODRIGES Rep #: [id number] : 1985 39 From: Dre Johnson MD PCP: Dr. Aliza Roman MD Status:REG ER Location: ED HPI History of Present Illness Chief Complaint: Lower Extremity Injury Detail of Chief Complaint: Pain localized to the left greater trochanteric region. Informant: patient, spouse/S.O. and EMS Onset/Context/Timing Onset: Days (Pain has gotten worse over the past 2 days) Context: Sudden Onset Timing: Continuous Quality: Pain Location: Points to the left greater trochanteric region. Current Severity: Mild Maximum Severity: Severe Worsened by: Weightbearing Relieved by: Nothing Associated Symptoms Associated Symptoms: Denies paresthesia, anesthesia or motor weakness. Denies symptoms of ji Narrative Narrative: Patient states Dr. Alexis and checks his hip with cortisone. He was asked specifically he has history of osteoporosis. He was not certain. Review of prior records and outside records indicates he does have osteoarthritis of his left hip joint. He was asked if he has [id number]. He responded yes. He denies fever, chills night sweats. He denies urologic symptoms. He denies paresthesia, anesthesia motors. He is a type II diabetic on Mounjaro and insulin. He takes insulin prior to eating. He denies cramps or pain in his calf or thigh with walking. He has not noted a rash over the left hip region. He denies direct or indirect trauma to the hip area. Prior similar symptoms: Yes Recent Illness/Hospitalization : No PFSH PFSH Medical History ROBERT treated with [...] cerebral palsy Obstructive sleep apnea Benign hypertension Medical History no medical history Home Medications ???Medication ???Instructions ???Recorded ???Last Taken ???Type baclofen 20 mg tablet 20 mg [...] DAILY 07/23/23 08/28/24 History mg) tablet,extended release allopurinol 300 mg tablet 300 mg PO BID gout 12/19/24 Unknow n History 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,top taper machine, cont #1 ea 12/19/24 Unknown Rx (FreeStyle Nancy 3 Acampo) celecoxib 200 mg capsule 200 mg PO DAILY 12/19/24 Unknown H istory rosuvastatin 5 mg tablet 5 mg PO QDAY #30 tabs 12/19/24 Unk nown Rx budesonide-formoterol HFA 160 2 inh inhalation BID #1 ea 5 Unknown Rx mcg-4.5 mcg/actuation aerosol inhaler (Symbicort) levetiracetam 500 mg tablet 500 mg PO BID seizures 01/23/25 Un known History nebivolol 10 mg tablet 10 mg PO DAILY heart 01/23/25 Unkn own History 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 sensor (FreeStyle #2 ea 02/06/25 Unknown Rx Nancy 3 Plus Sensor device) insulin regular hum U-500 conc 500 115 unit (0.23 mL) subcut TIDWME AL 02/06/25 Unknown Rx unit/mL(3 mL) subcut pen (Humulin #18 mL R U-500 (Conc) Insulin Kwikpen) tirzepatide 5 mg/0.5 mL 5 mg (0.5 mL) subcut QWEEK #2 mL 0 02/06/25 Unknown Rx subcutaneous pen injector (Ean) hydrocodone-acetaminoph en 5-325mg 1 tab PO Q6H PRN PRN Pain 5 days 04/23/25 Unknown Rx 5mg-325mg #20 TABLETS Allergy/AdvReac Type Severity Reaction Status Date / Time animal dander Allergy Chest Verified 02/06/25 13:06 tightness grass pollen Allergy Other Verified 02/06/25 13:06 house dust Allergy Other Verified 02/06/25 13:06 pollen extracts Allergy Other Verified 02/06/25 13:06 Family History Father Uniformer (more content not included)... Normal [facility] Eosinophil percentageOrdered By: Dre Johnson on 04-23-2025 Eosinophils/100 WBC (Bld) 3.1 % 0-5 [facility] Erythrocyte Sed Rateon 04-23 SED RATE 37 mm/hr High 0-20 [facility] Comment on above: Performed By: #### L 502.0250, L500.4050, L500.4100 #### [facility] [address] [place], [address] Erythrocyte distribution wid th ratioOrdered By: Dre Johnson on 04-23-2025 Erythrocyte distribution width (RBC) [Ratio] 14.9 % High 11.6-14.6 [facility] Erythrocyte distribution wid th standard deviationOrdered By: Dre Johnson on 04-23-2025 Erythrocyte distribution width (RBC) [Ratio] 46.8 fl High 35.1-43.9 [facility] Erythrocyte sedimentation ra teOrdered By: Dre Johnson on 04-23-2025 ESR (Bld) [Velocity] 37 mm/h High 0-20 [facility] Glomerular filtration rate ( GFR) estimation/1.73 sq m using serum, plasma, or whole bOrdered By: Dre Johnson on 04-23-2025 GFR/1.73 sq M.predicted among non-blacks MDRD (S/P/Bld) [Vol rate/Area] 125 mL/min/{1.73_m2} >60 [facility] Comment on above: mL/min/1.73m2 CKD-EP I Creatinine Equation (2020) HIP, UNI W/ Pelvis 2-3 Views on 04-23-2025 HIP, UNI W/ Pelvis 2-3 Views [facility] Services [address] [place], [place] [id number] HIP, UNI W/ Pelvis 2-3 Views MR#: [id number] Acct: [id number] Name: DONNA RODRIGES Rep #: [id number] : 1985 M 39 From: Rylan Meyer MD PCP: Dr. Aliza Roman MD Status: REG ER Study: HIP, UNI W/ Pelvis 2-3 Views Date of Exam: Exam# [id number] Ordering Dr: Dre Johnson MD PROCEDURE: HIP, UNI W/ PELVIS 2-3 VIEWS 04/23/2025 REASON FOR EXAM: INJURY/PAIN TECHNIQUE: Procedure Code: RADHP Modality: DX Procedure: HIP, UNI W/ PELVIS 2-3 VIEWS Laterality: Left COMPARISON: November 27, 2024, January 13, 2023 FINDINGS: Bones: No fracture seen. Joints: Severe joint space narrowing with flattening, remodeling, sclerosis, subchondral cyst formation. Soft tissues: Soft tissues are unremarkable. Note: The femoral heads are aspherical. RAD/HIP, UNI W/ Pelvis 2-3 Views IMPRESSION: Very severe osteoarthritis of the left hip. This has significantly worsened since December 2022. No fracture. Note: The femoral heads are aspherical. Correlate with impingement. Orthopedic consultation suggested to ensure no significant bony reduction and bone stock and remodeling of the acetabulum in this young patient. Reading Location: [id number] CC: Dr. Aliza Roman MD; Dr. Dre Johnson MD Group Therapist: Signed Normal [facility] Hematocrit Auto (Bld) [Volum e fraction]Ordered By: Dre Johnson on 04-23-2025 Hematocrit (Bld) [Volume fraction] 43.6 % 40-54 [facility] Hemoglobin measurementOrdere d By: Dre Johnson on 04-23-2025 Hemoglobin (Bld) [Mass/Vol] 14.5 g/dL 13.0-16.5 [facility] Immature granulocytes/100 WB C Auto (Bld)Ordered By: Dre Johnson on 04-23-2025 Immature granulocytes/100 WBC (Bld) 0.900 % 0.0-0.9 [facility] Comment on above: IG% - Immature Granu locytes (promyelocytes, myelocytes and metamyelocytes) > 1% indicates that a LEFT SHIFT is Present. MCV (mean corpuscular volume ) determinationOrdered By: Dre Johnson on 04-23-2025 MCV (RBC) [Entitic vol] 86.7 fL 80-94 [facility] Mean corpuscular hemoglobin (MCH) determinationOrdered By: Dre Johnson on 04-23-2025 MCH (RBC) [Entitic mass] 28.8 pg 27.0-32.0 [facility] Mean corpuscular hemoglobin concentration (MCHC) determinationOrdered By: Dre Johnson on 04-23-2025 MCHC (RBC) [Mass/Vol] 33.3 g/dL 32-36 [facility] Mean platelet volume determi nationOrdered By: Dre Johnson on 04-23-2025 Platelet mean volume (Bld) [Entitic vol] 10.7 fL 6.2-12.0 [facility] Monocyte percentageOrdered B y: Dre Johnson on 04-23-2025 Monocytes/100 WBC (Bld) 6.6 % 0-10 [facility] Neutrophil percentageOrdered By: Dre Johnson on 04-23-2025 Neutrophils/100 WBC (Bld) 64.0 % 47-70 [facility] Nucleated red blood cell per centageOrdered By: Dre Johnson on 04-23-2025 Nucleated RBC/100 WBC (Bld) [Ratio] 0 % 0-5 [facility] Platelet countOrdered By: Molina Johnson on 04-23-2025 Platelets (Bld) [#/Vol] 206 10*3/uL 150-450 [facility] Potassium measurement (mass/ volume)Ordered By: Dre Johnson on 04-23-2025 Potassium (Unsp spec) [Mass/Vol] 4.0 mmol/L 3.3-5.1 [facility] RBC Auto (Bld) [#/Vol]Ordere d By: Dre Johnson on 04-23-2025 RBC (Bld) [#/Vol] 5.03 10*6/uL 4.6-6.2 [facility] Serum creatinine measurement (mass/volume)Ordered By: Dre Johnson on 04-23-2025 Creatinine [Mass/Vol] 0.60 mg/dL Low 0.70-1.20 [facility] Serum glucose measurement (m ass/volume)Ordered By: Dre Johnson on 04-23-2025 Glucose [Mass/Vol] 195 mg/dL High 70-99 [facility] Serum or plasma calcium gloria urement (mass/volume)Ordered By: Dre Johnson on 04-23-2025 Calcium [Mass/Vol] 8.9 mg/dL 7.6-11.0 [facility] Serum or plasma urea nitroge n measurement (mass/volume)Ordered By: Dre Johnson on 04-23-2025 Urea nitrogen [Mass/Vol] 12 mg/dL 4-19 [facility] Sodium levelOrdered By: Dremoise Madisono on 04-23-2025 Sodium [Moles/Vol] 143 mmol/L 133-145 [facility] White blood cell (WBC) count Ordered By: Dre Johnson on 04-23-2025 WBC (Bld) [#/Vol] 9.8 10*3/uL 4.4-11.0 [facility] Endocrinology Visit Reporton 02-06-2025 Endocrinology Visit Report [facility] [address] [place] [address] OFFICE VISIT Date of Service: 02/06/25 MR#: [id number] Acct: [id number] Name: DONNA RODRIGES Rep #: [id number] : 1985 Provider: ROBERT munoz Age/Sex: 39/M Location: [facility] Status: Signed Intake Vital Signs 12/19/24 13:26 [...] 7 Wk FU Chief Complaint: f/u diabetes Marketing Manager Required: No Accompanied by: Is patient [...] 300 mg PO BID gout 12/19/24 History 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,top taper machine, cont #1 ea 12/19/24 02/06/25 Rx (FreeStyle Nancy 3 Acampo) celecoxib 200 mg capsule 200 mg PO DAILY 12/19/24 02/06/25 History rosuvastatin 5 mg tablet 5 mg PO QDAY #30 tabs 12/19/24 Rx budesonide-formoterol HFA 160 2 inh inhalation BID #1 ea 2 5 02/06/25 Rx mcg-4.5 mcg/actuation aerosol inhaler [...] 0 02/06/25 02/06/25 Rx subcutaneous pen injector (Mounjaro) [facility] Medical History ROBERT treated with BiPAP [...] H/O hernia repair H/O eye surgery S/P PAYROLL ACCOUNTING SPECIALIST shunt Family History Father Chronic a-fib CVA [...] any significan (more content not included)... Normal [facility] Pulmonary Visit Reporton Pulmonary Visit Report [facility] [place] [address] [place] [address] OFFICE VISIT Date of Service: 01/23/25 MR#: [id number] Acct: [id number] Name: DONNA RODRIGES Rep #: [id number] : 1985 Provider: ROBERT Norris Age/Sex: 39/M Location: [facility] Status: Signed Assessment and Plan Assessment and [...] Additional Comments: This note was generated with iTOK dictation software. It may contain incorrect words, [...] exertion. 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 Recently started Mounjaro. He [...] Chief Complaint: establish care- diabetes DME Vendor: Sha Accompanied by: Is patient in pain?: No Allergies animal dander Allergy (Verified 01/23/25 14:46) Chest tightness grass pollen Allergy (Verified 01/23/25 14:46) Other house dust Allergy (Verified 01/23/25 14:46) Other pollen extracts Allergy (Verif (more content not included)... Normal [facility] Fluoro Guided Needle Placeme nton 01-09-2025 Fluoro Guided Needle Placement [facility] Imaging Services [address] [place] [address] Fluoro Guided Needle Placement MR#: [id number] Acct: [id number] Name: DONNA RODRIGES Rep #: [id number] : 1985 M 39 From: Donaldo powell MD PCP: Dr. Aliza Roman MD Status: DEP [facility] Study: Fluoro Guided Needle Placement Date of Exam: 0 01/09/25 Exam# [id number] Ordering Dr: Carlos Ibarra MD PROCEDURE: FLUORO GUIDED NEEDLE PLACEMENT 01/09/2025 REASON FOR EXAM: INJECTION LT HIP TECHNIQUE: Intraoperative fluoroscopic services provided for left hip injection. 8.4 seconds of fluoroscopy. 2.99 mGy. 3 images were obtained. COMPARISON: None FINDINGS: Intraoperative fluoroscopic services provided for left hip injection. RAD/Fluoro Guided Needle Placement IMPRESSION: Intraoperative fluoroscopic services provided for left hip injection. Reading Location: [facility] CC: Dr. Aliza Roman MD; Dr. Carlos Ibarra MD Group Therapist: Signed [facility] MR/POSTOP.ANEon 01-09-2025 MR/POSTOP.[facility] Medical Records Department [address] [place] [address] Anesthesia Postop Eval I 01/09/25 0859 MR#: [id number] Acct: [id number] Name: DONNA RODRIGES Rep #: [id number] : 1985 39 From: Ike Sanchez CRNA PCP: Dr. Aliza Roman MD Status:DEP COC Y Race: C [place] [facility] [place]esthesia: Postop Eval I Current Vital Signs [...] Anesthesia document: Postop Eval 1 completed: Yes 01/09/25899 Date Ike Laura LOOM CHANGEOVER OPERATOR Cosigner Signature: Date CC: Signed Normal [facility] MR/[id number] 01-09-2025 MR/POSTOPAN2 [facility] Medical Records Department [address] [place] [address] Anesthesia Postop Eval II 01/09/25908 MR#: [id number] Acct: [id number] Name: DONNA RODRIGES Rep #: [id number] : 1985 39 From: Sridhar Cardozo MD PCP: Dr. Aliza Roman MD Status:[facility] Y Race: C Location[place] [facility] Anesthesia Postop Eval I Sum Postop Eval Completion status Anesthesia document: Postop Eval 1 completed: Yes Anesthesia Postop Eval I Summary Anesthesia Postop Eval I Summary: Anesthesia Postop Eval I: Assessment Summary Airway patent Yes 01/09/25 09:00 LOOM CHANGEOVER OPERATOR.KESHAWNU Spontaneous unlabored Yes 01/09/25 09:00 LOOM CHANGEOVER OPERATOR.SERGEY respirations Mental status Awake,Calm 01/09/25 09:00 LOOM CHANGEOVER OPERATOR.JBLOU nausea No 01/09/25 09:00 LOOM CHANGEOVER OPERATOR.JBLOU Vomiting No 01/09/25 09:00 LOOM CHANGEOVER OPERATOR.REGILOU Anesthesia Postop Eval I: Fluid Summary Crystalloid volume administer 200 01/09/25 09:00 LOOM CHANGEOVER OPERATOR.SERGEY (ml) Colloids volume administered ( ml) Blood Product volume administered (ml) Total IV fluid infused 200 01/09/25 09:00 LOOM CHANGEOVER OPERATOR.SERGEY Anesthesia Postop Eval I: Summary Notes Anesthesia Complication No 01/09/25 09:00 LOOM CHANGEOVER OPERATOR.SERGEY Anesthesia Complication Comment: Post-operative progress note Anesthesia: Postop Eval II Evaluation Mental status: Awake Pain Level: 2 nausea: No Vomiting: No 01/09/25908 Date Sridhar Puentes Signature: Date CC: Signed Normal [facility] Operative Reporton 5 Operative Report [facility] Medical Records Department [address] [place] [address] Operative Report 01/09/25823 MR#: [id number] Acct: [id number] Name: DONNA RODRIGES Rep #: [id number] : 1985 39 From: Carlos Ibarra MD PCP: Dr. Aliza Roman MD Status:[facility] Location: [place] [address] Operative Report (Standard) Operative Information Date of Procedure: 01/09/25 Pre-Operative Diagnosis: 1 Post-Operative Diagnosis: 1 Surgery/Procedure Performed: 1 marker hand: No Type of Anesthesia: Local MAC RN [...] None VTE Pharm Prophylaxis ordered?: No 01/09/25 0870 Cosigner Signature (if applicable): CC: Dr. Aliza Roman MD; Dr. Carlos Ibarra MD Signed Normal [facility] Endocrinology Visit Reporton 12-19-2024 Endocrinology Visit Report [facility] [address] [facility] [place] [address] OFFICE VISIT Date of Service: 12/19/24 MR#: [id number] Acct: [id number] Name: DONNA RODRIGES Rep #: [id number] : 1985 Provider: ROBERT munoz Age/Sex: 39/M Location: [facility] Status: Signed Intake Vital Signs 11/27/24 11:01 [...] mg tablet 10 mg PO DAILY heart 06/09/15/04/17 History baclofen 20 mg tablet 20 mg [...] ea 12/19/24 12/19/24 Rx (FreeStyle Nancy 3 Acampo) 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 sensor (FreeStyle #2 ea 12/19/24 12/19/24 [...] mL 12/19/24 12/19/24 Rx subcutaneous pen injector (Joonunhalima) [facility] Medical History ROBERT treated with BiPAP [...] H/O hernia repair H/O eye surgery S/P PAYROLL ACCOUNTING SPECIALIST shunt Family History (Updated 12/19/24 @ 13:25 [...] income an (more content not included)... Normal [facility] - Hematology and Cell countsOrdered By: Lesvia Russo on 12-19-2024 HbA1c (Bld) [Mass fraction] 9.6 % High 4.2-6.3 [facility] 12 Lead EKGon 11-27-2024 12 Lead EKG [facility] Cardiovascular Services [address] [place] [address] 12 Lead EKG 11/27/24 1148 MR#: [id number] Acct: [id number] Name: DONNA RODRIGES Rep #: [id number] : 1985 39 From: Bruce Victor MD [...] ECG Confirmed by BRUCE VICTOR MD ([id number]), editor greeting card CATHERINE PATTERSON ([id number]) on 11/28/2024 9:15:43 AM Referred By: Confirmed By: BRUCE VICTOR MD 11/28/24914 Date Bruce Victor MD CC: Dr. Aliza Roman MD; Dr. Davonte Mendez DO; GUICHO Jarrell Signed Normal [facility] Absolute lymphocyte countOrd ered By: Krystina Hernández on 11-27-2024 Lymphocytes Auto (Unsp spec) [#/Vol] 1.95 10*3/uL 0.83-4.51 [facility] Absolute neutrophil countOrd ered By: Krystina Hernández on 11-27-2024 Neutrophils (Bld) [#/Vol] 4.9 10*3/uL 2.0-7.7 [facility] Anion gap in Serum or Plasma Ordered By: Krystina Hernández on 11-27-2024 Anion gap [Moles/Vol] 14 mmol/L 5-15 [facility] Automated lymphocyte count a s percentage of total leukocytesOrdered By: Krystina Hernández on 11-27-2024 Lymphocytes/100 WBC Auto (Unsp spec) 25.6 % - [facility] BUN/creatinine ratioOrdered By: Krystina Hernández on 11-27-2024 Urea nitrogen/Creatinine [Mass ratio] 26.2 mg/mg High 06-12 [facility] Basic Metabolic Profile (BMP )on 11-27-2024 BUN/CRE 26.2 RATIO High 06-12 [facility] Comment on above: Performed By: #### L 502.0250, L500.4050, L500.4100 #### [facility] [address] [place], [address] Calcium [Mass/Vol] 9.2 mg/dL Normal 7.6-11.0 [facility] Comment on above: Performed By: #### L 502.0250, L500.4050, L500.4100 #### [facility] [address] [place], [address] Chloride [Moles/Vol] 100 mmol/L Normal 98-108 [facility] Comment on above: Performed By: #### L 502.0250, L500.4050, L500.4100 #### [facility] [address] [place], [address] CO2 [Moles/Vol] 24.1 mmol/L Normal 21.0-32.0 [facility] Comment on above: Performed By: #### L 502.0250, L500.4050, L500.4100 #### [facility] [address] [place], [address] Creatinine [Mass/Vol] 0.61 mg/dL Low 0.70-1.20 [facility] Comment on above: Performed By: #### L 502.0250, L500.4050, L500.4100 #### [facility] [address] [place], [address] ECRCL 227.50 ml/min Normal 50-250 [facility] Comment on above: Performed By: #### L 502.0250, L500.4050, L500.4100 #### [facility] [address] [place], [address] GAP 14 Normal 5-15 [facility] Comment on above: Performed By: #### L 502.0250, L500.4050, L500.4100 #### [facility] [address] [place], [address] GFR/1.73 sq M.predicted among non-blacks MDRD (S/P/Bld) [Vol rate/Area] 125 mL/min/{1.73_m2} Normal >60 [facility] Comment on above: Result Comment: mL/m in/1.73m2 CKD-EPI Creatinine Equation (2020) Performed By: #### L 502.0250, L500.4050, L500.4100 #### [facility] [address] [place], [address] Glucose [Mass/Vol] 303 mg/dL High 70-99 [facility] Comment on above: Performed By: #### L 502.0250, L500.4050, L500.4100 #### [facility] [address] [place], [address] Potassium [Moles/Vol] 3.9 mmol/L Normal 3.3-5.1 [facility] Comment on above: Performed By: #### L 502.0250, L500.4050, L500.4100 #### [facility] [address] [place], [address] Sodium [Moles/Vol] 138 mmol/L Normal 133-145 [facility] Comment on above: Performed By: #### L 502.0250, L500.4050, L500.4100 #### [facility] [address] [place], [address] Urea nitrogen [Mass/Vol] 16 mg/dL Normal 4-19 [facility] Comment on above: Performed By: #### L 502.0250, L500.4050, L500.4100 #### [facility] [address] [place], [address] Basophil percentageOrdered B y: Krystina Hernández on 11-27-2024 Basophils/100 WBC (Bld) 0.7 % 0-1 [facility] Brain/Head without Contrasto n 11-27-2024 Brain/Head without Contrast [facility] Imaging Services [address] [place], [place] [address] Brain/Head without Contrast MR#: [id number] Acct: [id number] Name: DONNA RODRIGES Rep #: [id number] : 1985 M 39 From: Asif Toledo DO PCP: Dr. Aliza Roman MD Status: REG ER Study: Brain/Head without Contrast Date of Exam: 02/15 Exam# [id number] Ordering Dr: Krystina Hernández PROCEDURE: BRAIN/HEAD WITHOUT CONTRAST 11/27/2024 REASON FOR EXAM: HEAD INJURY, POSSIBLE SEIZURE PAYROLL ACCOUNTING SPECIALIST shunt surgery. History of seizures TECHNIQUE: Head CT without intravenous contrast. Coronal and Sagittal reconstruction series were provided. One or more dose reduction techniques were used (e.g., Automated exposure control, adjustment of the mA and/or kV according to patient size, use of iterative reconstruction technique. RADIATION DOSE SUMMARY: CTDlvol: 44.99 mGy DLP: 796.11 mGycm COMPARISON: None. FINDINGS: Brain: Right parietal PAYROLL ACCOUNTING SPECIALIST shunt tube appears satisfactorily positioned. No ventriculomegaly. No mass, mass effect or midline shift. No intra-axial or extra-axial hemorrhage. CSF Spaces: Again PAYROLL ACCOUNTING SPECIALIST shunt tube in place. Ventricles and sulci are normal in size. Sinuses/Mastoids: Mucous retention cyst in the base of the left maxillary sinus. Mastoid air cells and remaining sinuses are clear. Bones: Unremarkable. CT/Brain/Head without Contrast IMPRESSION: No acute process detected. Reading Location: [facility] CC: Dr. Aliza Roman MD; GUICHO Jarrell Group Therapist: Signed Normal [facility] CBC W/Diff, Automatedon Absolute Lymph 1.95 X10 3/uL Normal 0.83-4.51 [facility] Comment on above: Performed By: #### L 100.0100 #### [facility] [address] [place], [place], [address] Absolute Neut 4.9 X10 3/uL Normal 2.0-7.7 [facility] Comment on above: Performed By: #### L 100.0100 #### [facility] [address] [place], [address] Basophils/100 WBC (Bld) 0.7 % Normal 0-1 [facility] Comment on above: Performed By: #### L 100.0100 #### [facility] [address] [place], [address] Eosinophils/100 WBC (Bld) 2.6 % Normal 0-5 [facility] Comment on above: Performed By: #### L 100.0100 #### [facility] [address] [place], [address] Erythrocyte distribution width (RBC) [Ratio] 15.4 % High 11.6-14.6 [facility] Comment on above: Performed By: #### L 100.0100 #### [facility] [address] [place], [address] Hematocrit (Bld) [Volume fraction] 45.3 % Normal 40-54 [facility] Comment on above: Performed By: #### L 100.0100 #### [facility] [address] [place], [address] Hemoglobin (Bld) [Mass/Vol] 15.1 g/dL Normal 13.0-16.5 [facility] Comment on above: Performed By: #### L 100.0100 #### [facility] [address] [place], [address] IG% 1.300 High 0.0-0.9 [facility] Comment on above: Result Comment: IG% - Immature Granulocytes (promyelocytes, myelocytes and metamyelocytes) > 1% indicates that a LEFT SHIFT is Present. Performed By: #### L 100.0100 #### [facility] [address] [place], [address] Lymphocytes/100 WBC (Bld) 25.6 % Normal 19-41 [facility] Comment on above: Performed By: #### L 100.0100 #### [facility] [address] [place], [address] MCH (RBC) [Entitic mass] 29.4 pg Normal 27.0-32.0 [facility] Comment on above: Performed By: #### L 100.0100 #### [facility] [address] [place], [address] MCHC (RBC) [Mass/Vol] 33.3 g/dL Normal 32-36 [facility] Comment on above: Performed By: #### L 100.0100 #### [facility] [address] [place], [address] MCV (RBC) [Entitic vol] 88.1 fL Normal 80-94 [facility] Comment on above: Performed By: #### L 100.0100 #### [facility] [address] [place], [address] Monocytes/100 WBC (Bld) 5.5 % Normal 0-[address] [facility] Comment on above: Performed By: #### L 100.0100 #### [facility] [address] [place], [address] Neutrophils/100 WBC (Bld) 64.3 % Normal 47-70 [facility] Comment on above: Performed By: #### L 100.0100 #### [facility] [address] [place], [address] Nucleated RBC (Bld) [#/Vol] 0 10*3/uL Normal 0-5 [facility] Comment on above: Performed By: #### L 100.0100 #### [facility] [address] [place], [address] Platelet mean volume (Bld) [Entitic vol] 11.8 fL Normal 6.2-12.0 [facility] Comment on above: Performed By: #### L 100.0100 #### [facility] [address] [place], [address] Platelets (Bld) [#/Vol] 190 10*3/uL Normal 150-450 [facility] Comment on above: Performed By: #### L 100.0100 #### [facility] [address] [place], [address] RBC (Bld) [#/Vol] 5.14 10*6/uL Normal 4.6-6.2 [facility] Comment on above: Performed By: #### L 100.0100 #### [facility] [address] [place], [address] RDW SD 49.7 fl High 35.1-43.9 [facility] Comment on above: Performed By: #### L 100.0100 #### [facility] [address] [place], [address] WBC (Bld) [#/Vol] 7.6 10*3/uL Normal 4.4-11.0 [facility] Comment on above: Performed By: #### L 100.0100 #### [facility] [address] [place], [address] Carbon dioxide, total [Moles /volume] in Central venous bloodOrdered By: Krystian Hernández on 11-27-2024 CO2 [Moles/Vol] 24.1 mmol/L 21.0-32.0 [facility] Chloride assayOrdered By: Prema Hernández on 11-27-2024 Chloride [Moles/Vol] 100 mmol/L 98-108 [facility] Emergency Department Summary on 11-27-2024 Emergency Department Summary [facility] Medical Records Department [address] [place] [address] Emergency Department Summary 11/27/24 MR#: [id number] Acct: [id number] Name: DONNA RODRIGES Rep #: [id number] : 1985 39 From: Krystina LINDO PCP: Dr. Aliza Roman MD Status:DEP ER Location: ED [facility] History of Present Illness Chief Complaint: Edema [...] has a PMH of T2DM, cerebral palsy, PAYROLL ACCOUNTING SPECIALIST shunt, obesity, HTN, and ROBERT. [facility] Medical History ROBERT treated with BiPAP [...] (0.03 2 spray intranasal BID #30 mL 0409/1608/28/24 Rx %) nasal spray naproxen 500 mg [...] Diabetes Surgica (more content not included)... Normal [facility] Eosinophil percentageOrdered By: Krystina Hernández on 11-27-2024 Eosinophils/100 WBC (Bld) 2.6 % 0-5 [facility] Erythrocyte distribution wid th (RBC) [Ratio]Ordered By: Krystina Hernández on 11-27-2024 Erythrocyte distribution width (RBC) [Entitic vol] 49.7 fL High 35.1-43.9 [facility] Erythrocyte distribution wid th ratioOrdered By: Krystina Hernández on 11-27-2024 Erythrocyte distribution width (RBC) [Ratio] 15.4 % High 11.6-14.6 [facility] Erythrocyte distribution wid th standard deviationOrdered By: Krystina eHrnández on 11-27-2024 Erythrocyte distribution width (RBC) [Ratio] 49.7 fl High 35.1-43.9 [facility] Estimation of creatinine dorothy aranceOrdered By: Krystina Hernández on 11-27-2024 Estimated Creatinine Clearance Calc 227.50 ml/min 50-250 [facility] GFR/1.73 sq M.predicted supa g non-blacks MDRD (S/P/Bld) [Vol rate/Area]Ordered By: Krystina Hernández on 11-27-2024 Estimated GFR (MDRD) Non-Af Amer 125 >60 [facility] Comment on above: mL/min/1.73m2 CKD-EP I Creatinine Equation (2020) Glomerular filtration rate ( GFR) estimation/1.73 sq m using serum, plasma, or whole bOrdered By: Krystina Hernández on 11-27-2024 GFR/1.73 sq M.predicted among non-blacks MDRD (S/P/Bld) [Vol rate/Area] 125 mL/min/{1.73_m2} >60 [facility] Comment on above: mL/min/1.73m2 CKD-EP I Creatinine Equation (2020) HIP, UNI W/ Pelvis 2-3 Views on 11-27-2024 HIP, UNI W/ Pelvis 2-3 Views [facility] Imaging Services [address], [place] [address] HIP, UNI W/ Pelvis 2-3 Views MR#: [id number] Acct: [id number] Name: DONNA RODRIGES Rep #: [id number] : 1985 M 39 From: Asif Toledo DO PCP: Dr. Aliza Roman MD Status: REG ER Study: HIP, UNI W/ Pelvis 2-3 Views Date of Exam: 02/15 Exam# [id number] Ordering Dr: Krystina Hernández PROCEDURE: HIP, UNI [...] Advanced osteoarthritis of left hip. Reading Location: [facility] CC: Dr. Aliza Roman MD; GUICHO Jarrell Group Therapist: Signed Normal [facility] Hematocrit Auto (Bld) [Volum e fraction]Ordered By: Krystina Hernández on 11-27-2024 Hematocrit (Bld) [Volume fraction] 45.3 % 40-54 [facility] Hemoglobin measurementOrdere d By: Krystina Hernández on 11-27-2024 Hemoglobin (Bld) [Mass/Vol] 15.1 g/dL 13.0-16.5 [facility] Immature granulocytes/100 WB C Auto (Bld)Ordered By: Krystina Hernández on 11-27-2024 Immature granulocytes/100 WBC (Bld) 1.300 % High 0.0-0.9 [facility] Comment on above: IG% - Immature Granu locytes (promyelocytes, myelocytes and metamyelocytes) > 1% indicates that a LEFT SHIFT is Present. L501.4021on 11-27-2024 Trop T High Sen 12 ng/L Normal <=22 [facility] Comment on above: Performed By: #### L 502.0250, L500.4050, L500.4100 #### [facility] [address], [address] L503.7505on 11-27-2024 proBNP < 36 Normal <=450 [facility] Comment on above: Result Comment: Hear t Failure Unlikely: < 300 pg/mL Heart Failure Likely < 50 Years: > 450 pg/mL 50-75 Years: > 900 pg/mL >75 Years: > 1800 pg/mL Performed By: #### L 100.0100 #### [facility] [address] [place], [place], [address] Lymphocytes Auto (Unsp spec) [#/Vol]Ordered By: Krystina Hernández on 11-27-2024 Lymphocytes (Bld) [#/Vol] 1.95 10*3/uL 0.83-4.5 1 [facility] Lymphocytes/100 WBC Auto (Un sp spec)Ordered By: Krystina Hernández on 11-27-2024 Lymphocytes/100 WBC (Bld) 25.6 % 19-41 [facility] MCV (mean corpuscular volume ) determinationOrdered By: Krystina Hernández on 11-27-2024 MCV (RBC) [Entitic vol] 88.1 fL 80-94 [facility] Mean corpuscular hemoglobin (MCH) determinationOrdered By: Krystina Hernández on 11-27-2024 MCH (RBC) [Entitic mass] 29.4 pg 27.0-32.0 [facility] Mean corpuscular hemoglobin concentration (MCHC) determinationOrdered By: Krystina Hernández on 11-27-2024 MCHC (RBC) [Mass/Vol] 33.3 g/dL 32-36 [facility] Mean platelet volume determi nationOrdered By: Krystina Hernández on 11-27-2024 Platelet mean volume (Bld) [Entitic vol] 11.8 fL 6.2-12.0 [facility] Monocyte percentageOrdered B y: Krystina Hernández on 11-27-2024 Monocytes/100 WBC (Bld) 5.5 % 0-10 [facility] Natriuretic peptide.B prohor valentine N-Terminal [Mass/Vol]Ordered By: Krystina Hernández on 11-27-2024 [id number] Natriuretic Peptide II < 36 pg/mL <450 [facility] Comment on above: Heart Failure Unlike ly: < 300 pg/mLHeart Failure Likely< 50 Years: > 450 pg/mL50-75 Years: > 900 pg/mL>75 Years: > 1800 pg/mL Natriuretic peptide.B prohor valentine N-Terminal [Mass/volume] in Serum or PlasmaOrdered By: Krystina Hernández on 11-27-2024 Natriuretic peptide.B prohormone N-Terminal [Mass/Vol] < 36 pg/mL <450 [facility] Comment on above: Heart Failure Unlike ly: < 300 pg/mLHeart Failure Likely< 50 Years: > 450 pg/mL50-75 Years: > 900 pg/mL>75 Years: > 1800 pg/mL Neutrophil percentageOrdered By: Krystina Hernández on 11-27-2024 Neutrophils/100 WBC (Bld) 64.3 % 47-70 [facility] Nucleated red blood cell per centageOrdered By: Krystina Hernández on 11-27-2024 Nucleated RBC/100 WBC (Bld) [Ratio] 0 % 0-5 [facility] Platelet countOrdered By: Prema Hernández on 11-27-2024 Platelets (Bld) [#/Vol] 190 10*3/uL 150-450 [facility] Potassium (Unsp spec) [Mass/ Vol]Ordered By: Krystina Hernández on 11-27-2024 Potassium [Moles/Vol] 3.9 mmol/L 3.3-5.1 [facility] Potassium measurement (mass/ volume)Ordered By: Krystina Hernández on 11-27-2024 Potassium (Unsp spec) [Mass/Vol] 3.9 mmol/L 3.3-5.1 [facility] RBC Auto (Bld) [#/Vol]Ordere d By: Krystina Hernández on 11-27-2024 RBC (Bld) [#/Vol] 5.14 10*6/uL 4.6-6.2 [facility] Serum creatinine measurement (mass/volume)Ordered By: Krystina Hernández on 11-27-2024 Creatinine [Mass/Vol] 0.61 mg/dL Low 0.70-1.20 [facility] Serum glucose measurement (m ass/volume)Ordered By: Krystina Hernández on 11-27-2024 Glucose [Mass/Vol] 303 mg/dL High 70-99 [facility] Serum or plasma calcium gloria urement (mass/volume)Ordered By: Krystina Hernández on 11-27-2024 Calcium [Mass/Vol] 9.2 mg/dL 7.6-11.0 [facility] Serum or plasma urea nitroge n measurement (mass/volume)Ordered By: Krystina Hernández on 11-27-2024 Urea nitrogen [Mass/Vol] 16 mg/dL 4-19 [facility] Shuntogram/Prev Placed Shunt on 11-27-2024 Shuntogram/Prev Placed Shunt [facility] Imaging Services [address] [place], [place] [id number] Shuntogram/Prev Placed Shunt MR#: [id number] Acct: [id number] Name: DONNA RODRIGES Rep #: [id number] : 1985 M 39 From: Asif [place] DO PCP: Dr. Aliza Roman MD Status: [facility] ER Study: Shuntogram/Prev Placed Shunt Date of Exam: 02/15 Exam# [id number] Ordering Dr: Davonte Mendez DO EXAM: Diagnostic shuntogram of placed shunt. CLINICAL HISTORY: Bilateral lower extremity edema for 2 days. COMPARISON: Yesterday, November 26 pelvis and November 27 brain TECHNIQUE: Plain films were obtained to survey the entire course of the right-sided [employer] shunt. FINDINGS: Skull demonstrates right parietal shunt. The tubing traverses the right skull and right thorax and then is seen right abdomen initially and then crosses over to the left abdomen. No obvious kinking or other abnormality. RAD/Shuntogram/Prev Placed Shunt IMPRESSION: Patent [employer]IST shunt. Reading Location: [facility] CC: Dr. Aliza Roman MD; Dr. Davonte Mendez DO Group Therapist: Signed Normal [facility] Sodium levelOrdered By: Obey Hernández on 11-27-2024 Sodium [Moles/Vol] 138 mmol/L 133-145 [facility] Troponin T.cardiac High sens itivity method [Mass/Vol]Ordered By: Krystina Hernández on 11-27-2024 Troponin T High Sensitivity 12 ng/L <22 [facility] Troponin T.cardiac [Mass/vol ume] in Serum or Plasma by High sensitivity methodOrdered By: Krystina Hernández on 11-27-2024 Troponin T.cardiac High sensitivity method [Mass/Vol] 12 ng/L <22 [facility] White blood cell (WBC) count Ordered By: Krystina Hernández on 11-27-2024 WBC (Bld) [#/Vol] 7.6 10*3/uL 4.4-11.0 [facility] Emergency Department Summary on 10-28-2024 Emergency Department Summary [facility] Medical Records Department [address] [place] [address] Emergency Department Summary 10/28/24 MR#: [id number] Acct: [id number] Name: DONNA RODRIGES Rep #: [id number] : 1985 39 From: Madhu Page DO [...] H/O hernia repair H/O eye surgery S/P [employer] shunt Social History Smoking Status: Never smoker [...] Musculoskeletal Musc (more content not included)... Normal [facility] Venous Duplex US, Unilateral on 10-28-2024 Venous Duplex US, Unilateral [facility] Cardiovascular Services [address] [place] [address] Venous Duplex US, Unilateral 10/28/24 1307 MR#: [id number] Acct: [id number] Name: DONNA RODRIGES Rep #: [id number] : 1985 39 From: Mamadou Mendoza MD [...] Ordering Physician: Hafsa Salcedo Referring Physician: Aliza Roman Performed By: Maday Boo, ANTONIOCS, RVT 10/31/241809 Date Mamadou Mendoza MD CC: Dr. Hafsa Salcedo DO; Dr. Madhu Page DO; Dr. Aliza Roman MD Date Dictated: 10/28/24 1307 Date Transcribed: 10/31/241809 Group Therapist: Signed Normal [facility] Albumin to globulin ratioOrd ered By: Aliza Roman on 09-21-2024 Albumin/Globulin [Mass ratio] 0.7 {ratio} Low 0.9-2.4 [facility] Bilirubin, totalOrdered By: Aliza Roman on 09-21-2024 Bilirubin [Mass/Vol] 0.40 mg/dL 0.20-1.00 [facility] Comment on above: For patients on eltr ombopag therapy, use of Dimension [place] TBIL is not recommended. Blood urea nitrogen (BUN)/cr eatinine ratioOrdered By: Aliza Roman on 09-21-2024 Urea nitrogen/Creatinine [Mass ratio] 22.3 mg/mg High 10-20 [facility] Carbon dioxide measurementOr dered By: Aliza Roman on 09-21-2024 CO2 [Moles/Vol] 27.0 mmol/L 21.0-32.0 [facility] Chloride measurementOrdered By: Aliza Roman on 09-21-2024 Chloride [Moles/Vol] 101 mmol/L 98-107 [facility] Comprehensive Metabolic Prof ilon 09-21-2024 Albumin [Mass/Vol] 3.4 g/dL Normal 3.2-5.0 [facility] Comment on above: Performed By: #### L 502.0250, L500.4050, L500.5650 #### [facility] [address] [place], [address] Albumin/Globulin [Mass ratio] 0.7 {ratio} Low 0.9-2.4 [facility] Comment on above: Performed By: #### L 502.0250, L500.4050, L500.4100 #### [facility] [address] [place], [address] ALK P 126 U/L High 45-117 [facility] Comment on above: Performed By: #### L 502.0250, L500.4050, L500.4100 #### [facility] [address] [place], [address] ALT [Catalytic activity/Vol] 84 U/L High 16-61 [facility] Comment on above: Performed By: #### L 502.0250, L500.4050, L500.4100 #### [facility] [address] [place], [address] AST [Catalytic activity/Vol] 54 U/L High 15-37 [facility] Comment on above: Performed By: #### L 502.0250, L500.4050, L500.4100 #### [facility] [address] [place], [address] Bilirubin [Mass/Vol] 0.40 mg/dL Normal 0.20-1.00 [facility] Comment on above: Result Comment: For patients on eltrombopag therapy, use of Dimension [place] TBIL is not recommended. Performed By: #### L 502.0250, L500.4050, L500.4100 #### [facility] [address] [place], [address] BUN/CRE 22.3 RATIO High 10-20 [facility] Comment on above: Performed By: #### L 502.0250, L500.4050, L500.4100 #### [facility] [address] [place], [address] CA,Total 9.4 mg/dL Normal 8.5-10.1 [facility] Comment on above: Performed By: #### L 502.0250, L500.4050, L500.4100 #### [facility] [address] [place], [address] Chloride [Moles/Vol] 101 mmol/L Normal 98-107 [facility] Comment on above: Performed By: #### L 502.0250, L500.4050, L500.4100 #### [facility] [address] [place], [address] CO2 [Moles/Vol] 27.0 mmol/L Normal 21.0-32.0 [facility] Comment on above: Performed By: #### L 502.0250, L500.4050, L500.4100 #### [facility] [address] [place], [address] Creatinine [Mass/Vol] 0.72 mg/dL Normal 0.70-1.30 [facility] Comment on above: Result Comment: The validity of the calculated GFR GFRAA in patients over 70 years has not been determined. Clinical correlation is essential. Performed By: #### L 502.0250, L500.4050, L500.4100 #### [facility] [address] [place], [address] EST GFR - AA 156 mL/min Normal >60 [facility] Comment on above: Result Comment: Afri can [place] GFR Calc Performed By: #### L 502.0250, L500.4050, L500.4100 #### [facility] [address] [place], [address] GAP 8 Normal 5-15 [facility] Comment on above: Performed By: #### L 502.0250, L500.4050, L500.4100 #### [facility] [address] [place], [address] GFR/1.73 sq M.predicted among non-blacks MDRD (S/P/Bld) [Vol rate/Area] 129 mL/min/{1.73_m2} Normal >60 [facility] Comment on above: Result Comment: Non- GFR Calc Performed By: #### L 502.0250, L500.4050, L500.4100 #### [facility] [address] [place], [address] Globulin (S) [Mass/Vol] 4.7 g/dL High 2.2-4.[address] [facility] Comment on above: Performed By: #### L 502.0250, L500.4050, L500.4100 #### [facility] [address] [place], [address] Glucose [Mass/Vol] 319 mg/dL High 74-106 [facility] Comment on above: Result Comment: Gluc ose result greater than or equal to 200 mg/dL suggests DIABETES MELLITUS per A.D.A. criteria. Performed By: #### L 502.0250, L500.4050, L500.4100 #### [facility] [address] [place], [address] Potassium [Moles/Vol] 4.3 mmol/L Normal 3.5-5.1 [facility] Comment on above: Performed By: #### L 502.0250, L500.4050, L500.4100 #### [facility] [address] [place], [address] Sodium [Moles/Vol] 136 mmol/L Normal 136-145 [facility] Comment on above: Performed By: #### L 502.0250, L500.4050, L500.4100 #### [facility] [address] [place], [address] T PROT 8.1 g/dL Normal 6.4-8.2 [facility] Comment on above: Performed By: #### L 502.0250, L500.4050, L500.4100 #### [facility] [address] [place], [address] Urea nitrogen [Mass/Vol] 16 mg/dL Normal 7-18 [facility] Comment on above: Performed By: #### L 502.0250, L500.4050, L500.4100 #### [facility] [address] [place], [address] Estimated glomerular filtrat ion rate (GFR) AmericanOrdered By: Aliza Roman on 09-21-2024 Estimated GFR (MDRD) Amer 156 mL/min >60 [facility] Comment on above: GFR Calc Glomerular filtration rate ( GFR) estimationOrdered By: Aliza Roman on 09-21-2024 Estimated GFR (MDRD) Non-Af Amer 129 mL/min >60 [facility] Comment on above: Non- GFR Calc GFR/1.73 sq M.predicted among non-blacks MDRD (S/P/Bld) [Vol rate/Area] 129 mL/min/{1.73_m2} >60 [facility] Comment on above: Non- GFR Calc Glucose measurementOrdered B y: Aliza Roman on 09-21-2024 Glucose [Mass/Vol] 319 mg/dL High 74-106 [facility] Comment on above: Glucose result great er than or equal to 200 mg/dLsuggests DIABETES MELLITUS per A.D.A. criteria. High density lipoprotein (HD L) measurementOrdered By: Aliza Roman on 09-21-2024 Cholesterol in HDL [Mass/Vol] 37 mg/dL Low >40 [facility] Comment on above: The drugs N-Acetylcy steine and Metamizole may falsely depress this assay. Reference Range HDL <40 mg/dL Low HDL Cholesterol HDL >or= 60 mg/dL High HDL Cholesterol Laboratory - Chemistry and C hemistry - challengeOrdered By: Aliza Roman on 09-21-2024 AST [Catalytic activity/Vol] 54 U/L High 15-37 [facility] Lipid Profileon 09-21-2024 Cholesterol [Mass/Vol] 233 mg/dL High 200 [facility] Comment on above: Result Comment: <200 mg/dL Desirable 200-240 mg/dL Borderline >240 mg/dL High Risk Performed By: #### L 502.0250, L500.4050, L500.4100 #### [facility] [address] [place], [address] Cholesterol in HDL [Mass/Vol] 37 mg/dL Low [facility] Comment on above: Result Comment: The drugs N-Acetylcysteine and Metamizole may falsely depress this assay. Reference Range HDL <40 mg/dL Low HDL Cholesterol HDL >or= 60 mg/dL High HDL Cholesterol Performed By: #### L 502.0250, L500.4050, L500.4100 #### [facility] [address] [place], [address] Cholesterol in LDL [Mass/Vol] 134 mg/dL High 0-130 [facility] Comment on above: Performed By: #### L 502.0250, L500.4050, L500.4100 #### [facility] [address] [place], [address] Cholesterol in VLDL [Mass/Vol] 62 mg/dL High 5-40 [facility] Comment on above: Performed By: #### L 502.0250, L500.4050, L500.4100 #### [facility] [address] [place], [address] Triglyceride [Mass/Vol] 311 mg/dL High [facility] Comment on above: Result Comment: The drugs N-Acetylcysteine and Metamizole may falsely depress this assay. Serum Triglycerides Reference Interval Normal <150 mg/dL Borderline high 150 - 199 mg/dL High 200 - 499 mg/dL Very High > or = 500 mg/dL Performed By: #### L 502.0250, L500.4050, L500.4100 #### [facility] [address] [place], [address] Low density lipoprotein (LDL ) cholesterol measurementOrdered By: Aliza Roman on 09-21-2024 Cholesterol in LDL [Mass/Vol] 134 mg/dL High 0-130 [facility] Microalb:Creat Ratio,Random URon 09-21-2024 Creatinine [Mass/Vol] 55.10 mg/dL Normal NO RAN GE EST. [facility] Comment on above: Performed By: #### L 502.0250, L500.4050, L500.4100 #### [facility] [address] [place], [address] MALB:CRE 16.1 mg/g CRE Normal <30 mg/g CRE [facility] Comment on above: Performed By: #### L 502.0250, L500.4050, L500.4100 #### [facility] [address] [place], [address] MICROALBUMIN,UR 8.8 mg/L Normal NO RANGE EST. [facility] Comment on above: Performed By: #### L 502.0250, L500.4050, L500.4100 #### [facility] [address] [place], [address] Potassium measurementOrdered By: Aliza Roman on 09-21-2024 Potassium [Moles/Vol] 4.3 mmol/L 3.5-5.1 [facility] Random urine microalbumin me asurementOrdered By: Aliza Roman on 09-21-2024 Urine Random Microalbumin 8.8 mg/L NO RANGE EST. [facility] Serum anion gap measurementO rdered By: Aliza Roman on 09-21-2024 Anion gap [Moles/Vol] 8 mmol/L 5-15 [facility] Serum globulin measurementOr dered By: Aliza Roman on 09-21-2024 Globulin (S) [Mass/Vol] 4.7 g/dL High 2.2-4.2 [facility] Serum or plasma alanine elizondo otransferase (ALT) measurementOrdered By: Aliza Roman on 09-21-2024 ALT [Catalytic activity/Vol] 84 U/L High 16-61 [facility] Serum or plasma albumin gloria urement (mass/volume)Ordered By: Aliza Roman on 09-21-2024 Albumin [Mass/Vol] 3.4 g/dL 3.2-5.0 [facility] Serum or plasma alkaline ramesh sphatase measurementOrdered By: Aliza Roman on 09-21-2024 ALP [Catalytic activity/Vol] 126 U/L High 45-117 [facility] Serum or plasma calcium gloria urement (mass/volume)Ordered By: Aliza Roman on 09-21-2024 Calcium [Mass/Vol] 9.4 mg/dL 8.5-10.1 [facility] Serum or plasma cholesterol measurement (mass/volume)Ordered By: Aliza Roman on 09-21-2024 Cholesterol [Mass/Vol] 233 mg/dL High <200 [facility] Comment on above: <200 mg/dL Desirable 200-240 mg/dL Borderline >240 mg/dL High Risk Serum or plasma creatinine m easurement (mass/volume)Ordered By: Aliza Roman on 09-21-2024 Creatinine [Mass/Vol] 0.72 mg/dL 0.70-1.30 [facility] Comment on above: The validity of the calculated GFR & GFRAA in patients over 70 years has not been determined. Clinical correlation is essential. Serum or plasma urea nitroge n measurement (mass/volume)Ordered By: Aliza Roman on 09-21-2024 Urea nitrogen [Mass/Vol] 16 mg/dL 7-18 [facility] Sodium levelOrdered By: Sunny Roman on 09-21-2024 Sodium [Moles/Vol] 136 mmol/L 136-145 [facility] Total proteinOrdered By: Byron Roman on 09-21-2024 Protein [Mass/Vol] 8.1 g/dL 6.4-8.2 [facility] Triglycerides measurementOrd ered By: Aliza Roman on 09-21-2024 Triglyceride [Mass/Vol] 311 mg/dL High <199 [facility] Comment on above: The drugs N-Acetylcy steine and Metamizole may falsely depress this assay.Serum Triglycerides Reference Interval Normal <150 mg/dL Borderline high 150 - 199 mg/dL High 200 - 499 mg/dL Very High > or = 500 mg/dL Urine albumin/creatinine rat io for detection of microalbuminuriaOrdered By: Aliza Roman on 09-21-2024 Urine Microalbumin/Creatinine Ratio 16.1 mg/g CRE <30 [facility] Urine creatinine measurement (mass/volume)Ordered By: Aliza Roman on 09-21-2024 Creatinine (U) [Mass/Vol] 55.10 mg/dL NO RANGE EST. [facility] Very low density lipoprotein (VLDL) cholesterol measurementOrdered By: Aliza Roman on 09-21-2024 Very low density lipoprotein (VLDL) cholesterol measurement 62 mg/dL High 5-40 [facility] VLDL Cholesterol 62 mg/dL High 5-40 [facility] Bedside Glucoseon 08-29-2024 FINGERSTICK GLU 287 mg/dL High 74-106 [facility] Comment on above: Result Comment: TIN BESS OF PATIENT CARE PER NURSING PROTOCOL Performed By: #### L 502.0250, L500.4050, L500.4100 #### [facility] [address] [facility] [place], [place], [address] Fluoro Guided Needle Placeme nton 08-29-2024 Fluoro Guided Needle Placement [facility] Imaging Services [address] [place] [address] Fluoro Guided Needle Placement MR#: [id number] Acct: [id number] Name: DONNA RODRIGES Mar[place] Rep #: [id number] : 1985 M 39 From: Donaldo powell MD PCP: Dr. Aliza Roman MD Status: [facility] [place] Study: Fluoro Guided Needle Placement Date of Exam: 0 08/29/24 Exam# [id number] Ordering [place]: [place] [id number] STUDY: HIP INJECTION. LEFT REASON FOR EXAM: Male, 39 years old. LT HIP INJECTION FLUOROSCOPY TIME (if supplied): ( 4 seconds ) minutes/seconds. 1.94 mGy. One image was submitted. FINDINGS: Intraoperative imaging provided for left hip injection. RAD/Fluoro Guided Needle Placement IMPRESSION: Intraoperative imaging provided for left hip injection. Electronically Signed: Donaldo Roldan MD at 12:02 EST Reading Location ID and State: [address] [place] [address] , Service support , CC: Dr. Aliza Roman MD; Dr. Carlos Ibarra MD Group Therapist: Signed Normal [facility] Fluoro Guided Needle Placement [facility] Imaging Services [address] [place] [id number] Fluoro Guided Needle Placement MR#: [id number] Acct: [id number] Name: DONNA RODRIGES Rep #: [id number] : 1985 M 39 From: Donaldo powell MD PCP: Dr. Aliza Rmoan MD Status: [facility] Study: Fluoro Guided Needle Placement Date of Exam: 0 08/29/24 Exam# [id number] Ordering [place]: [place] [id number] STUDY: HIP INJECTION. LEFT REASON FOR EXAM: Male, 39 years old. LT HIP INJECTION FLUOROSCOPY TIME (if supplied): ( 4 seconds ) minutes/seconds. 1.94 mGy. One image was submitted. FINDINGS: Intraoperative imaging provided for left hip injection. RAD/Fluoro Guided Needle Placement IMPRESSION: Intraoperative imaging provided for left hip injection. Electronically Signed: Donaldo Roldan MD at 12:02 EST Reading Location ID and State: [facility] [place] / [place] , Service support , CC: Dr. Aliza Roman MD; Dr. Carlos Ibarra MD Group Therapist: Signed Normal [facility] Operative Reporton 5 Operative Report [facility] Medical Records Department [address] [place] [address] Operative Report 08/29/24 1114 MR#: [id number] Acct: [id number] Name: DONNA RODRIGES Rep #: [id number] : 1985 39 From: Carlos Ibarra MD PCP: Dr. Aliza Roman MD Status:[facility] Location: [place] [address] Operative Report (Standard) Operative Information Date of Procedure: 08/29/24 Pre-Operative Diagnosis: 1 Post-Operative Diagnosis: 1 Surgery/Procedure Performed: 1 marker hand: No Type of Anesthesia: Local RN Documented [...] None VTE Pharm Prophylaxis ordered?: No 08/29/24 2028 Cosigner Signature (if applicable): CC: Dr. Aliza Roman MD; Dr. Carlos Ibarra MD Signed Normal [facility] XR SHUNTOGRAMon 02-03-2024 XR SHUNTOGRAM ORIGINAL EXAMINATION: [...] 02/03/2024 9:18:07 AM Ordering Provider: KAILA PFEIFFER [facility] CT HEAD OR BRAIN W/O CONTRAS Ton [...] 02/02/2024 3:05:07 PM Ordering Provider: KAILA PFEIFFER Normal [facility] ([place]) Absolute lymphocyte countOrd ered By: Robinson Guillen on 12-23-2023 Lymphocytes Auto (Unsp spec) [#/Vol] 1.77 10*3/uL 0.83-4.51 [facility] Automated lymphocyte count a s percentage of total leukocytesOrdered By: Robinson Guillen on 12-23-2023 Lymphocytes/100 WBC Auto (Unsp spec) 21.6 % 19-41 [facility] Basophil percentageOrdered B y: Robinson Guillen on 12-23-2023 Basophils/100 WBC (Bld) 0.5 % 0-1 [facility] Bilirubin [Mass/Vol] 0.40 mg/dL 0.20-1.00 [facility] Comment on above: For patients on eltr ombopag therapy, use of Dimension [place] TBIL is not recommended. Chloride [Moles/Vol] 102 mmol/L 98-107 [facility] Eosinophils/100 WBC (Bld) 2.2 % 0-5 [facility] Glucose [Mass/Vol] 243 mg/dL 74-106 [facility] Comment on above: Glucose result great er than or equal to 200 mg/dLsuggests DIABETES MELLITUS per A.D.A. criteria. Hemoglobin (Bld) [Mass/Vol] 15.1 g/dL 13.0-16.5 [facility] Monocytes/100 WBC (Bld) 7.3 % 0-[address] [facility] Neutrophils (Bld) [#/Vol] 5.5 10*3/uL 2.0-7.7 [facility] Neutrophils/100 WBC (Bld) 67.2 % 47-70 [facility] Potassium [Moles/Vol] 4.3 mmol/L 3.5-5.1 [facility] Comment on above: Moderate Hemolysis, Result may be falsely increased. Protein [Mass/Vol] 8.2 g/dL 6.4-8.2 [facility] Sodium [Moles/Vol] 138 mmol/L 136-145 [facility] WBC (Bld) [#/Vol] 8.2 10*3/uL 4.4-11.0 [facility] Determination of erythrocyte mean corpuscular volume (MCV)Ordered By: Robinson Guillen on 12-23-2023 MCV (RBC) [Entitic vol] 86.8 fL 80-94 [facility] Erythrocyte distribution wid th ratioOrdered By: Robinson Guillen on 12-23-2023 Erythrocyte distribution width (RBC) [Ratio] 15.3 % 11.6-14.6 [facility] Erythrocyte distribution wid th standard deviationOrdered By: Robinson Guillen on 12-23-2023 Erythrocyte distribution width (RBC) [Entitic vol] 47.8 fL 35.1-43.9 [facility] Hematocrit Auto (Bld) [Volum e fraction]Ordered By: Robinson Guillen on 12-23-2023 Hematocrit (Bld) [Volume fraction] 46.0 % 40-54 [facility] Immature granulocytes/100 WB C Auto (Bld)Ordered By: Robinson Guillen on 12-23-2023 Immature granulocytes/100 WBC (Bld) 1.200 % 0.0-0.9 [facility] Comment on above: IG% - Immature Granu locytes (promyelocytes, myelocytes and metamyelocytes) > 1% indicates that a LEFT SHIFT is Present. Laboratory - Chemistry and C hemistry - challengeOrdered By: Robinson Guillen on 12-23-2023 Albumin/Globulin [Mass ratio] 0.8 {ratio} 0.9-2.4 [facility] ALP [Catalytic activity/Vol] 84 U/L 45-117 [facility] ALT [Catalytic activity/Vol] 41 U/L 16-61 [facility] CO2 [Moles/Vol] 32.0 mmol/L 21.0-32.0 [facility] Globulin (S) [Mass/Vol] 4.5 g/dL 2.2-4.[address] [facility] Urea nitrogen/Creatinine [Mass ratio] 22.1 mg/mg 10-20 [facility] Laboratory - Hematology and Cell countsOrdered By: Robinson Guillen on 12-23-2023 MCH (RBC) [Entitic mass] 28.5 pg 27.0-32.0 [facility] MCHC (RBC) [Mass/Vol] 32.8 g/dL 32-36 [facility] Nucleated RBC/100 WBC (Bld) [Ratio] 0 % 0-5 [facility] Platelet mean volume (Bld) [Entitic vol] 10.2 fL 6.2-12.0 [facility] Platelets (Bld) [#/Vol] 218 10*3/uL 150-450 [facility] No Panel InformationOrdered By: Robinson Guillen on 12-23-2023 Estimated Creatinine Clearance Calc 204.27 ml/min [facility] Estimated GFR (MDRD) Amer 167 mL/min >60 [facility] Comment on above: GFR Calc Estimated GFR (MDRD) Non-Af Amer 138 mL/min >60 [facility] Comment on above: Non- GFR Calc Troponin I High Sensitivity < 3 pg/mL 3.0-78.0 [facility] Comment on above: Please Note: New Katja t Units and Gender Specific Reference Ranges. For more information see Policy Stat Procedure [place] High Sensitivity Troponin (TNIH) and attachments. RBC Auto (Bld) [#/Vol]Ordere d By: Robinson Guillen on 12-23-2023 RBC (Bld) [#/Vol] 5.30 10*6/uL 4.6-6.2 [facility] Serum or plasma calcium gloria urement (mass/volume)Ordered By: Robinson Guillen on 12-23-2023 Calcium [Mass/Vol] 9.1 mg/dL 8.5-10.1 [facility] Serum or plasma creatinine m easurement (mass/volume)Ordered By: Robinson Guillen on 12-23-2023 Creatinine [Mass/Vol] 0.68 mg/dL 0.70-1.30 [facility] Comment on above: The validity of the calculated GFR & GFRAA in patients over 70 years has not been determined. Clinical correlation is essential. Serum or plasma urea nitroge n measurement (mass/volume)Ordered By: Robinson Guillen on 12-23-2023 Urea nitrogen [Mass/Vol] 15 mg/dL 7-18 [facility] Thin prep Papanicolaou smear with manual screeningOrdered By: Robinson Guillen on 12-23-2023 Thin prep Papanicolaou smear with manual screening 3.7 g/dL 3.2-5.0 [facility] Thin prep Papanicolaou smear with manual screening 31 U/L 15-37 [facility] Comment on above: Moderate Hemolysis, Result may be falsely increased. Thin prep Papanicolaou smear with manual screening 4 5-15 [facility] Absolute lymphocyte countOrd ered By: Zeny Dumont on 12-18-2023 Lymphocytes Auto (Unsp spec) [#/Vol] 2.65 10*3/uL 0.83-4.51 [facility] Automated lymphocyte count a s percentage of total leukocytesOrdered By: Zeny Dumont on 12-18-2023 Lymphocytes/100 WBC Auto (Unsp spec) 27.8 % 19-41 [facility] Basophil percentageOrdered B y: Zeny Dumont on 12-18-2023 Basophils/100 WBC (Bld) 0.6 % 0-1 [facility] Chloride [Moles/Vol] 104 mmol/L 98-107 [facility] Eosinophils/100 WBC (Bld) 2.0 % 0-5 [facility] Glucose [Mass/Vol] 216 mg/dL 74-106 [facility] Comment on above: Glucose result great er than or equal to 200 mg/dLsuggests DIABETES MELLITUS per A.D.A. criteria. Hemoglobin (Bld) [Mass/Vol] 14.7 g/dL 13.0-16.5 [facility] Monocytes/100 WBC (Bld) 7.9 % 0-10 [facility] Neutrophils (Bld) [#/Vol] 5.8 10*3/uL 2.0-7.7 [facility] Neutrophils/100 WBC (Bld) 60.9 % 47-70 [facility] Potassium [Moles/Vol] 4.6 mmol/L 3.5-5.1 [facility] Comment on above: Moderate Hemolysis, Result may be falsely increased. Sodium [Moles/Vol] 139 mmol/L 136-145 [facility] WBC (Bld) [#/Vol] 9.5 10*3/uL 4.4-11.0 [facility] Determination of erythrocyte mean corpuscular volume (MCV)Ordered By: Zeny Dumont on 12-18-2023 MCV (RBC) [Entitic vol] 87.8 fL 80-94 [facility] Erythrocyte distribution wid th ratioOrdered By: Zeny Dumont on 12-18-2023 Erythrocyte distribution width (RBC) [Ratio] 15.2 % 11.6-14.6 [facility] Erythrocyte distribution wid th standard deviationOrdered By: Zeny Dumont on 12-18-2023 Erythrocyte distribution width (RBC) [Entitic vol] 48.0 fL 35.1-43.9 [facility] Hematocrit Auto (Bld) [Volum e fraction]Ordered By: Zeny Dumont on 12-18-2023 Hematocrit (Bld) [Volume fraction] 44.7 % 40-54 [facility] Immature granulocytes/100 WB C Auto (Bld)Ordered By: Zeny Dumont on 12-18-2023 Immature granulocytes/100 WBC (Bld) 0.800 % 0.0-0.9 [facility] Comment on above: IG% - Immature Granu locytes (promyelocytes, myelocytes and metamyelocytes) > 1% indicates that a LEFT SHIFT is Present. Laboratory - Chemistry and C hemistry - challengeOrdered By: Zeny Dumont on 12-18-2023 CO2 [Moles/Vol] 31.0 mmol/L 21.0-32.0 [facility] Urea nitrogen/Creatinine [Mass ratio] 27.1 mg/mg 10-20 [facility] Laboratory - Hematology and Cell countsOrdered By: Zeny Dumont on 12-18-2023 MCH (RBC) [Entitic mass] 28.9 pg 27.0-32.0 [facility] MCHC (RBC) [Mass/Vol] 32.9 g/dL 32-36 [facility] Nucleated RBC/100 WBC (Bld) [Ratio] 0 % 0-5 [facility] Platelet mean volume (Bld) [Entitic vol] 10.8 fL 6.2-12.0 [facility] Platelets (Bld) [#/Vol] 225 10*3/uL 150-450 [facility] No Panel InformationOrdered By: Zeny Dumont on 12-18-2023 Estimated Creatinine Clearance Calc 194.38 ml/min [facility] Estimated GFR (MDRD) Amer 160 mL/min >60 [facility] Comment on above: GFR Calc Estimated GFR (MDRD) Non-Af Amer 133 mL/min >60 [facility] Comment on above: Non- GFR Calc RBC Auto (Bld) [#/Vol]Ordere d By: Zeny Dumont on 12-18-2023 RBC (Bld) [#/Vol] 5.09 10*6/uL 4.6-6.2 [facility] Serum or plasma calcium gloria urement (mass/volume)Ordered By: Zeny Dumont on 12-18-2023 Calcium [Mass/Vol] 8.7 mg/dL 8.5-10.1 [facility] Serum or plasma creatinine m easurement (mass/volume)Ordered By: Zeny Dumont on 12-18-2023 Creatinine [Mass/Vol] 0.70 mg/dL 0.70-1.30 [facility] Comment on above: The validity of the calculated GFR & GFRAA in patients over 70 years has not been determined. Clinical correlation is essential. Serum or plasma urea nitroge n measurement (mass/volume)Ordered By: Zeny Dumont on 12-18-2023 Urea nitrogen [Mass/Vol] 19 mg/dL 7-18 [facility] Thin prep Papanicolaou smear with manual screeningOrdered By: Zeny Dumont on 12-18-2023 Thin prep Papanicolaou smear with manual screening 4 5-15 [facility] Absolute lymphocyte countOrd ered By: Romulo Estrella on 12-05-2023 Lymphocytes Auto (Unsp spec) [#/Vol] 2.57 10*3/uL 0.83-4.51 [facility] Automated lymphocyte count a s percentage of total leukocytesOrdered By: Romulo Estrella on 12-05-2023 Lymphocytes/100 WBC Auto (Unsp spec) 31.9 % 19-41 [facility] Basophil percentageOrdered B y: Romulo Estrella on 12-05-2023 Basophil percentage 25-50 SEEN /hpf 0-5 [facility] Basophils/100 WBC (Bld) 0.6 % 0-1 [facility] Bilirubin [Mass/Vol] 0.40 mg/dL 0.20-1.00 [facility] Comment on above: For patients on eltr ombopag therapy, use of Dimension [place] TBIL is not recommended. Chloride [Moles/Vol] 108 mmol/L 98-107 [facility] Eosinophils/100 WBC (Bld) 1.5 % 0-5 [facility] Glucose [Mass/Vol] 129 mg/dL 74-106 [facility] Comment on above: Fasting Glucose resu lt greater than or equal to 126 mg/dL suggests DIABETES MELLITUS per A.D.A. criteria. Hemoglobin (Bld) [Mass/Vol] 15.2 g/dL 13.0-16.5 [facility] Monocytes/100 WBC (Bld) 7.5 % 0-10 [facility] Neutrophils (Bld) [#/Vol] 4.6 10*3/uL 2.0-7.7 [facility] Neutrophils/100 WBC (Bld) 57.5 % 47-70 [facility] Potassium [Moles/Vol] 4.3 mmol/L 3.5-5.1 [facility] Comment on above: Moderate Hemolysis, Result may be falsely increased. Protein [Mass/Vol] 8.1 g/dL 6.4-8.2 [facility] Sodium [Moles/Vol] 139 mmol/L 136-145 [facility] WBC (Bld) [#/Vol] 8.1 10*3/uL 4.4-11.0 [facility] Bilirubin Test strip Ql (U)O rdered By: Romulo Estrella on 12-05-2023 Bilirubin Ql (U) Negative Negative [facility] Determination of erythrocyte mean corpuscular volume (MCV)Ordered By: Romulo Estrella on 12-05-2023 MCV (RBC) [Entitic vol] 87.3 fL 80-94 [facility] Erythrocyte distribution wid th ratioOrdered By: Romulo Estrella on 12-05-2023 Erythrocyte distribution width (RBC) [Ratio] 15.6 % 11.6-14.6 [facility] Erythrocyte distribution wid th standard deviationOrdered By: Romulo Estrella on 12-05-2023 Erythrocyte distribution width (RBC) [Entitic vol] 49.2 fL 35.1-43.9 [facility] Hematocrit Auto (Bld) [Volum e fraction]Ordered By: Romulo Estrella on 12-05-2023 Hematocrit (Bld) [Volume fraction] 47.4 % 40-54 [facility] Immature granulocytes/100 WB C Auto (Bld)Ordered By: Romulo Estrella on 12-05-2023 Immature granulocytes/100 WBC (Bld) 1.000 % 0.0-0.9 [facility] Comment on above: IG% - Immature Granu locytes (promyelocytes, myelocytes and metamyelocytes) > 1% indicates that a LEFT SHIFT is Present. Ketones Test strip Ql (U)Ord ered By: Romulo Estrella on 12-05-2023 Ketones Ql (U) Negative Negative [facility] Laboratory - Chemistry and C hemistry - challengeOrdered By: Romulo Estrella on 12-05-2023 Albumin/Globulin [Mass ratio] 0.8 {ratio} 0.9-2.4 [facility] ALP [Catalytic activity/Vol] 96 U/L 45-117 [facility] ALT [Catalytic activity/Vol] 48 U/L 16-61 [facility] CO2 [Moles/Vol] 28.0 mmol/L 21.0-32.0 [facility] Globulin (S) [Mass/Vol] 4.5 g/dL 2.2-4.2 [facility] Urea nitrogen/Creatinine [Mass ratio] 29.3 mg/mg 10-20 [facility] Laboratory - Hematology and Cell countsOrdered By: Romulo Estrella on 12-05-2023 MCH (RBC) [Entitic mass] 28.0 pg 27.0-32.0 [facility] MCHC (RBC) [Mass/Vol] 32.1 g/dL 32-36 [facility] Nucleated RBC/100 WBC (Bld) [Ratio] 0 % 0-5 [facility] Platelet mean volume (Bld) [Entitic vol] 11.1 fL 6.2-12.0 [facility] Platelets (Bld) [#/Vol] 202 10*3/uL 150-450 [facility] Mucus LM Ql (Urine sed)Order ed By: Romulo Estrella on 12-05-2023 Mucus Ql (Urine sed) 0 SEEN /hpf [facility] Nitrite Test strip Ql (U)Ord ered By: Romulo Estrella on 12-05-2023 Nitrite Ql (U) Negative Negative [facility] No Panel InformationOrdered By: Romulo Estrella on 12-05-2023 Urine RBC 0-5 SEEN /hpf 0-5 [facility] Estimated GFR (MDRD) Amer 187 mL/min >60 [facility] Comment on above: GFR Calc Estimated GFR (MDRD) Non-Af Amer 155 mL/min >60 [facility] Comment on above: Non- GFR Calc Protein Test strip Ql (U)Ord ered By: Romulo Estrella on 12-05-2023 Protein Ql (U) 30 mg/dl Negative [facility] RBC Auto (Bld) [#/Vol]Ordere d By: Romulo Estrella on 12-05-2023 RBC (Bld) [#/Vol] 5.43 10*6/uL 4.6-6.2 [facility] Serum or plasma calcium gloria urement (mass/volume)Ordered By: Romulo Estrella on 12-05-2023 Calcium [Mass/Vol] 8.9 mg/dL 8.5-10.1 [facility] Serum or plasma creatinine m easurement (mass/volume)Ordered By: Romulo Estrella on 12-05-2023 Creatinine [Mass/Vol] 0.61 mg/dL 0.70-1.30 [facility] Comment on above: The validity of the calculated GFR & GFRAA in patients over 70 years has not been determined. Clinical correlation is essential. Serum or plasma urea nitroge n measurement (mass/volume)Ordered By: Romulo Estrella on 12-05-2023 Urea nitrogen [Mass/Vol] 18 mg/dL 7-18 [facility] Squamous epithelial cells de tection in urine sediment by light microscopyOrdered By: Romulo Estrella on 12-05-2023 Epithelial cells.squamous LM Ql (Urine sed) 0 SEEN /hpf 0-5 [facility] Thin prep Papanicolaou smear with manual screeningOrdered By: Romulo Estrella on 12-05-2023 Thin prep Papanicolaou smear with manual screening 3.6 g/dL 3.2-5.0 [facility] Thin prep Papanicolaou smear with manual screening 36 U/L 15-37 [facility] Comment on above: Moderate Hemolysis, Result may be falsely increased. Thin prep Papanicolaou smear with manual screening 3 5-15 [facility] Urine blood detectionOrdered By: Romulo Estrella on 12-05-2023 RBC Ql (U) 150 /ul Negative [facility] Urine clarityOrdered By: Jocelyn Estrella on 12-05-2023 Clarity (U) Sl. Cloudy Clear [facility] Urine color determinationOrd ered By: Romulo Estrella on 12-05-2023 Color (U) Yellow Yellow [facility] Urine glucose detectionOrder ed By: Romulo Estrella on 12-05-2023 Glucose Ql (U) 1000 mg/dl Normal [facility] Urine leukocyte esterase det ection by dipstickOrdered By: Romulo Estrella on 12-05-2023 Leukocyte esterase Test strip Ql (U) 500 /ul Negative [facility] Urine pHOrdered By: Romulo latif on 12-05-2023 pH (U) 5.0 [pH] 5.0 - 8.0 [facility] Urine sediment bacteria coun t by microscopy (number/high power field)Ordered By: Romulo Estrella on 12-05-2023 Bacteria LM.HPF (Urine sed) [#/Area] 1 /[HPF] None Seen [facility] Urine specific gravity measu rementOrdered By: Romulo Estrella on 12-05-2023 Specific gravity (U) [Rel density] 1.010 1.002-1.030 [facility] Urine urobilinogen measureme ntOrdered By: Romulo Estrella on 12-05-2023 Urobilinogen Ql (U) Normal mg/dl Normal [facility] CNOVon 11-19-2023 CNOV Office Visit (ORTHIN ) DONNA RODRIGES ([id number]) 1985 M Date Time Provider Department 11/19/23 [...] Review of Systems: Reviewed and charted into [facility]. Physical Exam: PE reveals a male with [...] (I hav (more content not included)... Normal [facility] XR HIP 3V PELV+ AP/LAT LTon 11-16-2023 [...] erosions. IMPRESSION: Advanced left hip degenerative change. Group Therapist: [facility] Transcribe Date/Time: Nov 18 2023 4:59P Dictated by : BOBBY BANUELOS MD This examination was interpreted and the report reviewed and electronically signed by: BOBBY BANUELOS MD on Nov 18 2023 5:13PM EST [id number] Normal [facility] CNOVon 10-06-2023 CNOV Office Visit (PODIWS ) DONNA RODRIGES ([id number]) 1985 M Date Time Provider Department 10/06/23 [...] palsy (HCC) DM2 (diabetes mellitus, type 2) ([facility]) Gout HTN (hypertension) Hydrocephalus with operating shunt ([facility]) Obesity hypoventilation syndrome ([facility]) Sleep apnea on BiPap Current Outpatient Medications [...] full wit (more content not included)... Normal [facility] XR FOOT 3V AP/LAT/OBL BILon 10-06-2023 XR [...] fifth toes. IMPRESSION: No acute osseous abnormality Group Therapist: [facility] Transcribe Date/Time: Oct 07 2023 12:11P Dictated by : ARIANNA RODRIGUEZ MD This examination was interpreted and the report reviewed and electronically signed by: ARIANNA RODRIGUEZ MD on Oct 07 2023 12:13PM EST [id number] Normal [facility] Laboratory - Drug toxicology Ordered By: Alejandro Gray on 09-10-2023 Amphetamines Ql (U) Negative <1000 ng/mL [facility] Benzodiazepines Ql (U) Negative < 200 ng/mL [facility] Cannabinoids Screen Ql (U) Negative < 50 ng/mL [facility] Cocaine Ql (U) Negative < 300 ng/mL [facility] Opiates Ql (U) Negative < 300 ng/mL [facility] No Panel InformationOrdered By: Alejandro Gray on 09-10-2023 MDMA (Ecstasy) Screen Negative < 500 ng/mL [facility] Miscellaneous Test See comment [facility] Comment on above: TEST RESULTS LIMITS Tramadol Positive Yektxp=107 Tramadol Conf, [place], [place] 1312 ng/mL Dcxvjp=160 TESTING PERFORMED AT [facility]. ORIGINAL REPORT ON FILE IN LAB CONTAINS ADDITIONAL TEST SITE INFORMATION. Urine Barbiturates Screen Negative < 200 ng/m L [facility] Urine Drug Screen Comment [facility] Comment on above: CONFIRMATORY TESTING FOR ALL [...] TESTING MUST BE ORDERED SEPARATELY. USE TESTMNEMONIC: [facility] Urine Methadone Screen Negative < 300 ng/mL [facility] Urine phencyclidine (PCP) de tectionOrdered By: Alejandro Gray on 09-10-2023 Phencyclidine Ql (U) Negative < 25 ng/mL [facility] Laboratory - Drug toxicology Ordered By: Alejandro Gray on 09-03-2023 Amphetamines Ql (U) Negative <1000 ng/mL [facility] Benzodiazepines Ql (U) Negative < 200 ng/mL [facility] Cannabinoids Screen Ql (U) Negative < 50 ng/mL [facility] Cocaine Ql (U) Negative < 300 ng/mL [facility] Opiates Ql (U) Negative < 300 ng/mL [facility] No Panel InformationOrdered By: Alejandro Gray on 09-03-2023 MDMA (Ecstasy) Screen Negative < 500 ng/mL [facility] Urine Barbiturates Screen Negative < 200 ng/m L [facility] Urine Drug Screen Comment [facility] Comment on above: CONFIRMATORY TESTING FOR ALL [...] TESTING MUST BE ORDERED SEPARATELY. USE TESTMNEMONIC: [facility] Urine Methadone Screen Negative < 300 ng/mL [facility] Urine phencyclidine (PCP) de tectionOrdered By: Alejandro Gray on 09-03-2023 Phencyclidine Ql (U) Negative < 25 ng/mL [facility] Absolute lymphocyte countOrd ered By: Dr. Gulilen on 02-15-2023 Lymphocytes Auto (Unsp spec) [#/Vol] 2.26 10*3/uL 0.83-4.51 [facility] Basophil percentageOrdered B y: Dr. Guillen on 02-15-2023 Basophil percentage 0 SEEN /hpf 0-5 [facility] Lactate [Moles/Vol] 1.3 mmol/L 0.4-2.0 [facility] Basophils/100 WBC (Bld) 0.7 % 0-[address] [facility] Bilirubin [Mass/Vol] 0.40 mg/dL 0.20-1.00 [facility] Comment on above: For patients on eltr ombopag therapy, use of Dimension [place] TBIL is not recommended. Chloride [Moles/Vol] 103 mmol/L 98-107 [facility] Eosinophils/100 WBC (Bld) 3.2 % 0-5 [facility] Glucose [Mass/Vol] 151 mg/dL 74-106 [facility] Comment on above: Fasting Glucose resu lt greater than or equal to 126 mg/dL suggests DIABETES MELLITUS per A.D.A. criteria. Neutrophils (Bld) [#/Vol] 5.9 10*3/uL 2.0-7.7 [facility] Neutrophils/100 WBC (Bld) 64.2 % 47-70 [facility] Potassium [Moles/Vol] 3.9 mmol/L 3.5-5.1 [facility] Protein [Mass/Vol] 7.8 g/dL 6.4-8.2 [facility] Sodium [Moles/Vol] 140 mmol/L 136-145 [facility] WBC (Bld) [#/Vol] 9.1 10*3/uL 4.4-11.0 [facility] Bilirubin Test strip Ql (U)O rdered By: Dr. Guillen on 02-15-2023 Bilirubin Ql (U) Negative Negative [facility] Blood erythrocytes count (nu mber/volume)Ordered By: Dr. Guillen on 02-15-2023 RBC (Bld) [#/Vol] 5.36 10*6/uL 4.6-6.2 [facility] Blood hemoglobin measurement (mass/volume)Ordered By: Dr. Guillen on 02-15-2023 Hemoglobin (Bld) [Mass/Vol] 15.3 g/dL 13.0-16.5 [facility] Blood lymphocytes/100 leukoc ytesOrdered By: Dr. Guillen on 02-15-2023 Lymphocytes/100 WBC (Bld) 24.8 % 19-41 [facility] Blood monocytes/100 leukocyt esOrdered By: Dr. Guillen on 02-15-2023 Monocytes/100 WBC (Bld) 6.4 % 0-10 [facility] Blood platelet mean volumeOr dered By: Dr. Guillen on 02-15-2023 Platelet mean volume (Bld) [Entitic vol] 11.1 fL 6.2-12.0 [facility] Determination of erythrocyte mean corpuscular volume (MCV)Ordered By: Dr. Guillen on 02-15-2023 MCV (RBC) [Entitic vol] 87.9 fL 80-94 [facility] Hematocrit Auto (Bld) [Volum e fraction]Ordered By: Dr. Guillen on 02-15-2023 Hematocrit (Bld) [Volume fraction] 47.1 % 40-54 [facility] Ketones Test strip Ql (U)Ord ered By: Dr. Guillen on 02-15-2023 Ketones Ql (U) Negative Negative [facility] Laboratory - Chemistry and C hemistry - challengeOrdered By: Dr. Guillen on 02-15-2023 ALP [Catalytic activity/Vol] 96 U/L 45-117 [facility] ALT [Catalytic activity/Vol] 48 U/L 16-61 [facility] CO2 [Moles/Vol] 28.0 mmol/L 21.0-32.0 [facility] Globulin (S) [Mass/Vol] 4.4 g/dL 2.2-4.2 [facility] Lipase [Catalytic activity/Vol] 26 U/L 13-75 [facility] Comment on above: Please note:LIPASE r evised reference range effective 22. New Lipase methodology. Expected to produce lower values than the previous assay method. NEW Reference Range: 13 - 75 U/L Urea nitrogen/Creatinine [Mass ratio] 21.9 mg/mg 10-20 [facility] Laboratory - Hematology and Cell countsOrdered By: Dr. Guillen on 02-15-2023 Erythrocyte distribution width (RBC) [Entitic vol] 48.9 fL 35.1-43.9 [facility] Erythrocyte distribution width (RBC) [Ratio] 15.5 % 11.6-14.6 [facility] Immature granulocytes/100 WBC (Bld) 0.700 % 0.0-0.9 [facility] Comment on above: IG% - Immature Granu locytes (promyelocytes, myelocytes and metamyelocytes) > 1% indicates that a LEFT SHIFT is Present. MCH (RBC) [Entitic mass] 28.5 pg 27.0-32.0 [facility] Nucleated RBC/100 WBC (Bld) [Ratio] 0 % 0-5 [facility] MCHC Auto (RBC) [Mass/Vol]Or dered By: Dr. Guillen on 02-15-2023 MCHC (RBC) [Mass/Vol] 32.5 g/dL 32-36 [facility] Mucus LM Ql (Urine sed)Order ed By: Dr. Guillen on 02-15-2023 Mucus Ql (Urine sed) 0 SEEN /hpf [facility] Nitrite Test strip Ql (U)Ord ered By: Dr. Guillen on 02-15-2023 Nitrite Ql (U) Negative Negative [facility] No Panel InformationOrdered By: Dr. Guillen on 02-15-2023 Estimated Creatinine Clearance Calc 114.89 ml/min [facility] Estimated GFR (MDRD) Amer 154 mL/min >60 [facility] Comment on above: GFR Calc Estimated GFR (MDRD) Non-Af Amer 127 mL/min >60 [facility] Comment on above: Non- GFR Calc Platelets bldOrdered By: Dr. Guillen on 02-15-2023 Platelets (Bld) [#/Vol] 196 10*3/uL 150-450 [facility] Protein Test strip Ql (U)Ord ered By: Dr. Guillen on 02-15-2023 Protein Ql (U) Negative Negative [facility] Serum or plasma albumin gloria urement (mass/volume)Ordered By: Dr. Guillen on 02-15-2023 Albumin [Mass/Vol] 3.4 g/dL 3.2-5.0 [facility] Serum or plasma albumin/glob ulin mass ratioOrdered By: Dr. Guillen on 02-15-2023 Albumin/Globulin [Mass ratio] 0.8 {ratio} 0.9-2.4 [facility] Serum or plasma calcium gloria urement (mass/volume)Ordered By: Dr. Guillen on 02-15-2023 Calcium [Mass/Vol] 8.8 mg/dL 8.5-10.1 [facility] Serum or plasma creatinine m easurement (mass/volume)Ordered By: Dr. Guillen on 02-15-2023 Creatinine [Mass/Vol] 0.73 mg/dL 0.70-1.30 [facility] Comment on above: The validity of the calculated GFR & GFRAA in patients over 70 years has not been determined. Clinical correlation is essential. Serum or plasma urea nitroge n measurement (mass/volume)Ordered By: Dr. Guillen on 02-15-2023 Urea nitrogen [Mass/Vol] 16 mg/dL 7-18 [facility] Squamous epithelial cells de tection in urine sediment by light microscopyOrdered By: Dr. Guillen on 02-15-2023 Epithelial cells.squamous LM Ql (Urine sed) 0 SEEN /hpf 0-5 [facility] Thin prep Papanicolaou smear with manual screeningOrdered By: Dr. Guillen on 02-15-2023 Thin prep Papanicolaou smear with manual screening 24 U/L 15-37 [facility] Thin prep Papanicolaou smear with manual screening 9 5-15 [facility] Urine blood detectionOrdered By: Dr. Guillen on 02-15-2023 RBC Ql (U) Negative Negative [facility] RBC Ql (U) 0 SEEN /hpf 0-5 [facility] Urine clarityOrdered By: Dr. Guillen on 02-15-2023 Clarity (U) Clear Clear [facility] Urine color determinationOrd ered By: Dr. Guillen on 02-15-2023 Color (U) Yellow Yellow [facility] Urine glucose detectionOrder ed By: Dr. Guillen on 02-15-2023 Glucose Ql (U) 1000 mg/dl Normal [facility] Urine leukocyte esterase det ection by dipstickOrdered By: Dr. Guillen on 02-15-2023 Leukocyte esterase Test strip Ql (U) Negative Negative [facility] Urine pHOrdered By: Dr. Kai conklin on 02-15-2023 pH (U) 8.0 [pH] 5.0 - 8.0 [facility] Urine sediment bacteria coun t by microscopy (number/high power field)Ordered By: Dr. Guillen on 02-15-2023 Bacteria LM.HPF (Urine sed) [#/Area] 0 /[HPF] None Seen [facility] Urine specific gravity measu rementOrdered By: Dr. Guillen on 02-15-2023 Specific gravity (U) [Rel density] 1.015 1.002-1.030 [facility] Urobilinogen Auto test strip Ql (U)Ordered By: Dr. Guillen on 02-15-2023 Urobilinogen Ql (U) Normal mg/dl Normal [facility] Basophil percentageOrdered B y: Dr. Roman on 01-30-2023 Bilirubin [Mass/Vol] 0.40 mg/dL 0.20-1.00 [facility] Comment on above: For patients on eltr ombopag therapy, use of Dimension [place] TBIL is not recommended. Chloride [Moles/Vol] 104 mmol/L 98-107 [facility] Cholesterol [Mass/Vol] 180 mg/dL <200 [facility] Comment on above: <200 mg/dL Desirable 200-240 mg/dL Borderline >240 mg/dL High Risk Glucose [Mass/Vol] 177 mg/dL 74-106 [facility] Comment on above: Fasting Glucose resu lt greater than or equal to 126 mg/dL suggests DIABETES MELLITUS per A.D.A. criteria. Potassium [Moles/Vol] 4.0 mmol/L 3.5-5.1 [facility] Protein [Mass/Vol] 7.4 g/dL 6.4-8.2 [facility] Sodium [Moles/Vol] 138 mmol/L 136-145 [facility] Triglyceride [Mass/Vol] 304 mg/dL <199 [facility] Comment on above: The drugs N-Acetylcy steine and Metamizole may falsely depress this assay.Serum Triglycerides Reference Interval Normal <150 mg/dL Borderline high 150 - 199 mg/dL High 200 - 499 mg/dL Very High > or = 500 mg/dL Laboratory - Chemistry and C hemistry - challengeOrdered By: Dr. Roman on 01-30-2023 ALP [Catalytic activity/Vol] 86 U/L 45-117 [facility] ALT [Catalytic activity/Vol] 42 U/L 16-61 [facility] CO2 [Moles/Vol] 26.0 mmol/L 21.0-32.0 [facility] Globulin (S) [Mass/Vol] 4.2 g/dL 2.2-4.2 [facility] Urea nitrogen/Creatinine [Mass ratio] 21.0 mg/mg 10-20 [facility] No Panel InformationOrdered By: Dr. Roman on 01-30-2023 Estimated GFR (MDRD) Amer 171 mL/min >60 [facility] Comment on above: GFR Calc Estimated GFR (MDRD) Non-Af Amer 142 mL/min >60 [facility] Comment on above: Non- GFR Calc Serum or plasma albumin gloria urement (mass/volume)Ordered By: Dr. Roman on 01-30-2023 Albumin [Mass/Vol] 3.2 g/dL 3.2-5.0 [facility] [facility] Serum or plasma albumin/glob ulin mass ratioOrdered By: Dr. Roman on 01-30-2023 Albumin/Globulin [Mass ratio] 0.8 {ratio} 0.9-2.4 [facility] Serum or plasma calcium gloria urement (mass/volume)Ordered By: Dr. Roman on 01-30-2023 Calcium [Mass/Vol] 8.5 mg/dL 8.5-10.1 [facility] Serum or plasma cholesterol in HDL measurement (mass/volume)Ordered By: Dr. Roman on 01-30-2023 Cholesterol in HDL [Mass/Vol] 37 mg/dL >40 [facility] Comment on above: The drugs N-Acetylcy steine and Metamizole may falsely depress this assay. Reference Range HDL <40 mg/dL Low HDL Cholesterol HDL >or= 60 mg/dL High HDL Cholesterol Serum or plasma cholesterol in VLDL measurement (mass/volume)Ordered By: Dr. Roman on 01-30-2023 Cholesterol in VLDL [Mass/Vol] 61 mg/dL 5-40 [facility] Serum or plasma creatinine m easurement (mass/volume)Ordered By: Dr. Roman on 01-30-2023 Creatinine [Mass/Vol] 0.67 mg/dL 0.70-1.30 [facility] Comment on above: The validity of the calculated GFR & GFRAA in patients over 70 years has not been determined. Clinical correlation is essential. Serum or plasma low density lipoprotein (LDL) cholesterol measurement (mass/volume)Ordered By: Dr. Roman on 01-30-2023 Cholesterol in LDL [Mass/Vol] 82 mg/dL 0-130 [facility] Serum or plasma urea nitroge n measurement (mass/volume)Ordered By: Dr. Roman on 01-30-2023 Urea nitrogen [Mass/Vol] 14 mg/dL 7-18 [facility] Thin prep Papanicolaou smear with manual screeningOrdered By: Dr. Roman on 01-30-2023 Thin prep Papanicolaou smear with manual screening 28 U/L 15-37 [facility] Thin prep Papanicolaou smear with manual screening 8 5-15 [facility] Absolute lymphocyte counton 02-14-2022 Lymphocytes Auto (Unsp spec) [#/Vol] 0.88 10*3/uL 0.83-4.51 [facility] Work Phone: Basophil percentageon 2021 Lactate [Moles/Vol] 1.7 mmol/L 0.4-2.0 [facility] Work Phone: Bilirubin [Mass/Vol] 0.50 mg/dL 0.20-1.00 [facility] Work Phone: Comment on above: For patients on eltr ombopag therapy, use of Dimension [place] TBIL is not recommended. Chloride [Moles/Vol] 105 mmol/L 98-107 [facility] Work Phone: Glucose [Mass/Vol] 198 mg/dL 74-106 [facility] Work Phone: Comment on above: Fasting Glucose resu lt greater than or equal to 126 mg/dL suggests DIABETES MELLITUS per A.D.A. criteria. Potassium [Moles/Vol] 3.8 mmol/L 3.5-5.1 [facility] Work Phone: Protein [Mass/Vol] 8.0 g/dL 6.4-8.2 [facility] Work Phone: Sodium [Moles/Vol] 139 mmol/L 136-145 [facility] Work Phone: Basophil percentage 0 SEEN /hpf 0-5 [facility] Work Phone: Basophils/100 WBC (Bld) 0.4 % 0-1 [facility] Work Phone: Eosinophils/100 WBC (Bld) 1.2 % 0-5 [facility] Work Phone: Neutrophils (Bld) [#/Vol] 9.8 10*3/uL 2.0-7.7 [facility] Work Phone: Neutrophils/100 WBC (Bld) 85.1 % 47-70 [facility] Work Phone: WBC (Bld) [#/Vol] 11.6 10*3/uL 4.4-11.0 [facility] Work Phone: Bilirubin Test strip Ql (U)o n 02-14-2022 Bilirubin Ql (U) Negative Negative [facility] Work Phone: Blood erythrocytes count (nu mber/volume)on 02-14-2022 RBC (Bld) [#/Vol] 5.04 10*6/uL 4.6-6.2 [facility] Work Phone: Blood hemoglobin measurement (mass/volume)on 02-14-2022 Hemoglobin (Bld) [Mass/Vol] 14.8 g/dL 13.0-16.5 [facility] Work Phone: Blood lymphocytes/100 leukoc yteson 02-14-2022 Lymphocytes/100 WBC (Bld) 7.6 % 19-41 [facility] Work Phone: Blood monocytes/100 leukocyt eson 02-14-2022 Monocytes/100 WBC (Bld) 4.8 % 0-10 [facility] Work Phone: Blood platelet mean volumeon 02-14-2022 Platelet mean volume (Bld) [Entitic vol] 11.0 fL 6.2-12.0 [facility] Work Phone: Determination of erythrocyte mean corpuscular volume (MCV)on 02-14-2022 MCV (RBC) [Entitic vol] 90.5 fL 80-94 [facility] Work Phone: Hematocrit Auto (Bld) [Volum e fraction]on 02-14-2022 Hematocrit (Bld) [Volume fraction] 45.6 % 40-54 [facility] Work Phone: INR in Blood by Coagulation assayon 02-14-2022 INR Coag (Bld) [Relative time] 1.0 {INR} [facility] Work Phone: Ketones Test strip Ql (U)on 02-14-2022 Ketones Ql (U) Negative Negative [facility] Work Phone: Laboratory - Chemistry and C hemistry - challengeon 02-14-2022 ALP [Catalytic activity/Vol] 96 U/L 45-117 [facility] Work Phone: ALT [Catalytic activity/Vol] 42 U/L 16-61 [facility] Work Phone: CO2 [Moles/Vol] 27.0 mmol/L 21.0-32.0 [facility] Work Phone: Globulin (S) [Mass/Vol] 4.5 g/dL 2.2-4.2 [facility] Work Phone: Urea nitrogen/Creatinine [Mass ratio] 17.0 mg/mg 10-20 [facility] Work Phone: Laboratory - Coagulationon 0 02-14-2022 aPTT Coag (Bld) [Time] 27.7 s 24.1-36.2 Wo reji [facility] Work Phone: PT Coag (PPP) [Time] 13.3 s 11.7-14.[address] [facility] Work Phone: Laboratory - Hematology and Cell countson 02-14-2022 Erythrocyte distribution width (RBC) [Entitic vol] 49.9 fL 35.1-43.9 [facility] Work Phone: Erythrocyte distribution width (RBC) [Ratio] 15.2 % 11.6-14.6 [facility] Work Phone: Immature granulocytes/100 WBC (Bld) 0.900 % 0.0-0.9 [facility] Work Phone: Comment on above: IG% - Immature Granu locytes (promyelocytes, myelocytes and metamyelocytes) > 1% indicates that a LEFT SHIFT is Present. MCH (RBC) [Entitic mass] 29.4 pg 27.0-32.0 [facility] Work Phone: Nucleated RBC/100 WBC (Bld) [Ratio] 0 % 0-5 [facility] Work Phone: MCHC Auto (RBC) [Mass/Vol]on 02-14-2022 MCHC (RBC) [Mass/Vol] 32.5 g/dL 32-36 [facility] Work Phone: Mucus LM Ql (Urine sed)on Mucus Ql (Urine sed) 0 SEEN /hpf [facility] Work Phone: Nitrite Test strip Ql (U)on 02-14-2022 Nitrite Ql (U) Negative Negative [facility] Work Phone: No Panel Informationon 02-14 Estimated Creatinine Clearance Calc 103.28 ml/min [facility] Work Phone: Estimated GFR (MDRD) Amer 134 mL/min >60 [facility] Work Phone: Comment on above: GFR Calc Estimated GFR (MDRD) Non-Af Amer 111 mL/min >60 [facility] Work Phone: Comment on above: Non- GFR Calc Platelets bldon 02-14-2022 Platelets (Bld) [#/Vol] 200 10*3/uL 150-450 [facility] Work Phone: Protein Test strip Ql (U)on 02-14-2022 Protein Ql (U) 15 mg/dl Negative [facility] Work Phone: Serum or plasma albumin gloria urement (mass/volume)on 02-14-2022 Albumin [Mass/Vol] 3.5 g/dL 3.2-5.0 [facility] Work Phone: Serum or plasma albumin/glob ulin mass ratioon 02-14-2022 Albumin/Globulin [Mass ratio] 0.8 {ratio} 0.9-2.4 [facility] Work Phone: Serum or plasma calcium gloria urement (mass/volume)on 02-14-2022 Calcium [Mass/Vol] 8.8 mg/dL 8.5-10.1 [facility] Work Phone: Serum or plasma creatinine m easurement (mass/volume)on 02-14-2022 Creatinine [Mass/Vol] 0.82 mg/dL 0.70-1.30 [facility] Work Phone: Comment on above: The validity of the calculated GFR & GFRAA in patients over 70 years has not been determined. Clinical correlation is essential. Serum or plasma urea nitroge n measurement (mass/volume)on 02-14-2022 Urea nitrogen [Mass/Vol] 14 mg/dL 7-18 [facility] Work Phone: Squamous epithelial cells de tection in urine sediment by light microscopyon 02-14-2022 Epithelial cells.squamous LM Ql (Urine sed) 0 SEEN /hpf 0-5 [facility] Work Phone: Thin prep Papanicolaou smear with manual screeningon 02-14-2022 Thin prep Papanicolaou smear with manual screening 26 U/L 15-37 [facility] Work Phone: Thin prep Papanicolaou smear with manual screening 7 5-15 [facility] Work Phone: Urine blood detectionon 01-23 RBC Ql (U) Negative Negative [facility] Work Phone: RBC Ql (U) 0 SEEN /hpf 0-5 [facility] Work Phone: Urine clarityon 02-14-2022 Clarity (U) Clear Clear [facility] Work Phone: Urine color determinationon 02-14-2022 Color (U) Yellow Yellow [facility] Work Phone: Urine glucose detectionon Glucose Ql (U) 100 mg/dl Normal [facility] Work Phone: Urine leukocyte esterase det ection by dipstickon 02-14-2022 Leukocyte esterase Test strip Ql (U) Negative Negative [facility] Work Phone: Urine pHon 02-14-2022 pH (U) 6.0 [pH] 5.0 - 8.0 [facility] Work Phone: Urine sediment bacteria coun t by microscopy (number/high power field)on 02-14-2022 Bacteria LM.HPF (Urine sed) [#/Area] 0 /[HPF] None Seen [facility] Work Phone: Urine specific gravity measu rementon 02-14-2022 Specific gravity (U) [Rel density] 1.010 1.002-1.030 [facility] Work Phone: Urobilinogen Auto test strip Ql (U)on 02-14-2022 Urobilinogen Ql (U) Normal mg/dl Normal [facility] Work Phone: Culture, urine Bacteria identified Cx Nom (U) Proteus mirabilis [facility] Work Phone: Laboratory - Microbiology an d Antimicrobial susceptibility Bacteria identified Cx Nom (Bld) No growth in 5 days. [facility] Work Phone: No Panel Information SARS-CoV-2 & FLU Antigen (Rapid) [facility] Work Phone: Vital Signs Date Time Vital Sign Value Performing Clinician Loius rogers 04-23-2025 18:45-0400 Body temperature 97.6 [degF] Dr. Aliza Roman MD Work Phone: [facility] 04-23-2025 18:45-0400 Diastolic blood pressure 82 mm[Hg] Dr. Aliza Roman MD Work Phone: [facility] 04-23-2025 18:45-0400 Heart rate 87 /min Dr. Aliza Roman MD Work Phone: [facility] 04-23-2025 18:45-0400 Respiratory rate 15 /min Dr. Aliza Roman MD Work Phone: [facility] 04-23-2025 18:45-0400 SaO2% (BldA) [Mass fraction] 99 % Dr. Aliza Roman MD Work Phone: [facility] 04-23-2025 18:45-0400 Systolic blood pressure 124 mm[Hg] Dr. Aliza Roman MD Work Phone: [facility] 04-23-2025 16:30-0400 Body height 162.[address] Aliza Roman MD Work Phone: [facility] 04-23-2025 16:30-0400 Body mass index (BMI) [Ratio] 59.4 kg/m2 Dr. Aliza Roman MD Work Phone: [facility] 04-23-2025 16:30-0400 Body weight 157.[address] Aliza Roman MD Work Phone: [facility] 02-06-2025 13:03-0400 Body height 162.[address] Aliza Roman MD Work Phone: [facility] 02-06-2025 13:03-0400 Body mass index (BMI) [Ratio] 61.1 kg/m2 Dr. Aliza Roman MD Work Phone: [facility] 02-06-2025 13:03-0400 Body weight 161.[address] Aliza Roman MD Work Phone: [facility] 02-06-2025 13:03-0400 Diastolic blood pressure 85 mm[Hg] Dr. Aliza Roman MD Work Phone: [facility] 02-06-2025 13:03-0400 Heart rate 85 /min Dr. Aliza Roman MD Work Phone: [facility] 02-06-2025 13:03-0400 SaO2% (BldA) [Mass fraction] 93 % Dr. Aliza Roman MD Work Phone: [facility] 02-06-2025 13:03-0400 Systolic blood pressure 140 mm[Hg] Dr. Aliza Roman MD Work Phone: [facility] 01-23-2025 08:20-0400 Body mass index (BMI) [Ratio] 60.4 kg/m2 Dr. Aliza Roman MD Work Phone: [facility] 01-23-2025 08:20-0400 Body temperature 97.8 [degF] Dr. Aliza Roman MD Work Phone: [facility] 01-23-2025 08:20-0400 Body weight 159.[address] Aliza Roman MD Work Phone: [facility] 01-23-2025 08:20-0400 Diastolic blood pressure 70 mm[Hg] Dr. Aliza Roman MD Work Phone: [facility] 01-23-2025 08:20-0400 Heart rate 84 /min Dr. Aliza Roman MD Work Phone: [facility] 01-23-2025 08:20-0400 Inhaled oxygen flow rate 2 L/min Dr. Aliza Roman MD Work Phone: [facility] 01-23-2025 08:20-0400 Respiratory rate 22 /min Dr. Aliza Roman MD Work Phone: [facility] 01-23-2025 08:20-0400 SaO2% (BldA) [Mass fraction] 95 % Dr. Aliza Roman MD Work Phone: [facility] 01-23-2025 08:20-0400 Systolic blood pressure 118 mm[Hg] Dr. Aliza Roman MD Work Phone: [facility] 01-09-2025 09:00-0400 Body temperature 98 [degF] Dr. Aliza Roman MD Work Phone: [facility] 01-09-2025 09:00-0400 Diastolic blood pressure 87 mm[Hg] Dr. Aliza Roman MD Work Phone: [facility] 01-09-2025 09:00-0400 Heart rate 85 /min Dr. Aliza Roman MD Work Phone: [facility] 01-09-2025 09:00-0400 Respiratory rate 16 /min Dr. Aliza Roman MD Work Phone: [facility] 01-09-2025 09:00-0400 SaO2% (BldA) [Mass fraction] 98 % Dr. Aliza Roman MD Work Phone: [facility] 01-09-2025 09:00-0400 Systolic blood pressure 154 mm[Hg] Dr. Aliza Roman MD Work Phone: [facility] 01-09-2025 08:35-0400 Body temperature 98 [degF] Dr. Aliza Roman MD Work Phone: [facility] 01-09-2025 08:35-0400 Diastolic blood pressure 87 mm[Hg] Dr. Aliza Roman MD Work Phone: [facility] 01-09-2025 08:35-0400 Heart rate 85 /min Dr. Aliza Roman MD Work Phone: [facility] 01-09-2025 08:35-0400 Respiratory rate 16 /min Dr. Aliza Roman MD Work Phone: [facility] 01-09-2025 08:35-0400 SaO2% (BldA) [Mass fraction] 96 % Dr. Aliza Roman MD Work Phone: [facility] 01-09-2025 08:35-0400 Systolic blood pressure 154 mm[Hg] Dr. Aliza Roman MD Work Phone: [facility] 01-09-2025 06:48-0400 Body height 162.[address] Aliza Roman MD Work Phone: [facility] 01-09-2025 06:48-0400 Body mass index (BMI) [Ratio] 60.1 kg/m2 Dr. Aliza Roman MD Work Phone: [facility] 01-09-2025 06:48-0400 Body weight [address] Aliza Roman MD Work Phone: [facility] 12-19-2024 13:26-0400 Body mass index (BMI) [Ratio] 59.7 kg/m2 Dr. Aliza Roman MD Work Phone: [facility] 12-19-2024 13:26-0400 Body weight 157.[address] Aliza Roman MD Work Phone: [facility] 12-19-2024 13:26-0400 Diastolic blood pressure 82 mm[Hg] Dr. Aliza Roman MD Work Phone: [facility] 12-19-2024 13:26-0400 Heart rate 81 /min Dr. Aliza Roman MD Work Phone: [facility] 12-19-2024 13:26-0400 SaO2% (BldA) [Mass fraction] 93 % Dr. Aliza Roman MD Work Phone: [facility] 12-19-2024 13:26-0400 Systolic blood pressure 141 mm[Hg] Dr. Aliza Roman MD Work Phone: [facility] 11-27-2024 13:21-0400 Body temperature 98.4 [degF] Dr. Aliza Roman MD Work Phone: [facility] 11-27-2024 13:21-0400 Diastolic blood pressure 69 mm[Hg] Dr. Aliza Roman MD Work Phone: [facility] 11-27-2024 13:21-0400 Heart rate 81 /min Dr. Aliza Roman MD Work Phone: [facility] 11-27-2024 13:21-0400 Respiratory rate 16 /min Dr. Aliza Roman MD Work Phone: [facility] 11-27-2024 13:21-0400 SaO2% (BldA) [Mass fraction] 94 % Dr. Aliza Roman MD Work Phone: [facility] 11-27-2024 13:21-0400 Systolic blood pressure 131 mm[Hg] Dr. Aliza Roman MD Work Phone: [facility] 11-27-2024 11:01-0400 Body height 162.[address] Aliza Roman MD Work Phone: [facility] 11-27-2024 11:01-0400 Body mass index (BMI) [Ratio] 60.9 kg/m2 Dr. Aliza Roman MD Work Phone: [facility] 11-27-2024 11:01-0400 Body weight [address] Aliza Roman MD Work Phone: [facility] 10-28-2024 12:49-0500 Body height 162.[address] Aliza Roman MD Work Phone: [facility] 10-28-2024 12:49-0500 Body temperature 98.1 [degF] Dr. Aliza Roman MD Work Phone: [phone] [place] [address] 10-28-2024 12:49-0500 Diastolic blood pressure 102 mm[Hg] Dr. Aliza Roman MD Work Phone: [phone])[phone] [place] [address] 10-28-2024 12:49-0500 Heart rate 105 /min Dr. Aliza Roman MD Work Phone: [facility] 10-28-2024 12:49-0500 Respiratory rate 16 /min Dr. Aliza Roman MD Work Phone: [facility] 10-28-2024 12:49-0500 SaO2% (BldA) [Mass fraction] 94 % Dr. Aliza Roman MD Work Phone: [facility] 10-28-2024 12:49-0500 Systolic blood pressure 153 mm[Hg] Dr. Aliza Roman MD Work Phone: [facility] 08-29-2024 13:50-0500 Diastolic blood pressure 105 mm[Hg] Dr. Aliza Roman MD Work Phone: [facility] 08-29-2024 13:50-0500 Systolic blood pressure 167 mm[Hg] Dr. Aliza Roman MD Work Phone: [facility] 08-29-2024 11:34-0500 Body temperature 98.1 [degF] Dr. Aliza Roman MD Work Phone: [facility] 08-29-2024 11:34-0500 Heart rate 96 /min Dr. Aliza Roman MD Work Phone: [facility] 08-29-2024 11:34-0500 Respiratory rate 16 /min Dr. Aliza Roman MD Work Phone: [facility] 08-29-2024 11:34-0500 SaO2% (BldA) [Mass fraction] 96 % Dr. Aliza Roman MD Work Phone: [facility] 08-29-2024 10:14-0500 Body mass index (BMI) [Ratio] 57.6 kg/m2 Dr. Aliza Roman MD Work Phone: [facility] 08-29-2024 10:14-0500 Body weight 152.[address] Aliza Roman MD Work Phone: [facility] 12-23-2023 22:37-0400 Body temperature 98.5 [degF] Dr. Aliza Roman Work Phone: [facility] 12-23-2023 22:37-0400 Diastolic blood pressure 76 mm[Hg] Dr. Aliza Roman Work Phone: [facility] 12-23-2023 22:37-0400 Heart rate 76 /min Dr. Aliza Roman Work Phone: [facility] 12-23-2023 22:37-0400 Respiratory rate 18 /min Dr. Aliza Roman Work Phone: [facility] 12-23-2023 22:37-0400 SaO2% (BldA) [Mass fraction] 94 % Dr. Aliza Roman Work Phone: [facility] 12-23-2023 22:37-0400 Systolic blood pressure 126 mm[Hg] Dr. Aliza Roman Work Phone: [facility] 12-23-2023 19:06-0400 Body mass index (BMI) [Ratio] 60 kg/m2 Dr. Aliza Roman Work Phone: [facility] 12-23-2023 19:06-0400 Body weight 158.[address] Aliza Roman Work Phone: [facility] 12-23-2023 17:08-0400 Body height 162.[address] Aliza Roman Work Phone: [facility] 12-19-2023 00:54-0400 Diastolic blood pressure 96 mm[Hg] Dr. Aliza Roman Work Phone: [facility] 12-19-2023 00:54-0400 Heart rate 99 /min Dr. Aliza Roman Work Phone: [facility] 12-19-2023 00:54-0400 Respiratory rate 20 /min Dr. Aliza Roman Work Phone: [facility] 12-19-2023 00:54-0400 SaO2% (BldA) [Mass fraction] 91 % Dr. Aliza Roman Work Phone: [facility] 12-19-2023 00:54-0400 Systolic blood pressure 128 mm[Hg] Dr. Aliza Roman Work Phone: [facility] 12-18-2023 22:28-0400 Body height 162.[address] Aliza Roman Work Phone: [facility] 12-18-2023 22:28-0400 Body mass index (BMI) [Ratio] 58.1 kg/m2 Dr. Aliza Roman Work Phone: [facility] 12-18-2023 22:28-0400 Body temperature 98.4 [degF] Dr. Aliza Roman Work Phone: [facility] 12-18-2023 22:28-0400 Body weight 153.[address] Aliza Roman Work Phone: [facility] 12-05-2023 14:42-0400 Body temperature 97.9 [degF] Dr. Aliza Roman Work Phone: [facility] 12-05-2023 14:42-0400 Diastolic blood pressure 84 mm[Hg] Dr. Aliza Roman Work Phone: [facility] 12-05-2023 14:42-0400 Heart rate 86 /min Dr. Aliza Roman Work Phone: [facility] 12-05-2023 14:42-0400 Respiratory rate 20 /min Dr. Aliza Roman Work Phone: [facility] 12-05-2023 14:42-0400 SaO2% (BldA) [Mass fraction] 95 % Dr. Aliza Roman Work Phone: [facility] 12-05-2023 14:42-0400 Systolic blood pressure 162 mm[Hg] Dr. Aliza Roman Work Phone: [facility] 12-05-2023 11:03-0400 Body height 162.[address] Aliza Roman Work Phone: [facility] 11-23-2023 08:19-0400 Body mass index (BMI) [Ratio] 56.9 kg/m2 Dr. Aliza Roman Work Phone: [facility] 11-23-2023 08:19-0400 Body temperature 97.5 [degF] Dr. Aliza Roman Work Phone: [facility] 11-23-2023 08:19-0400 Body weight 150.[address] Aliza Roman Work Phone: [facility] 11-23-2023 08:19-0400 Diastolic blood pressure 83 mm[Hg] Dr. Aliza Roman Work Phone: [facility] 11-23-2023 08:19-0400 Heart rate 96 /min Dr. Aliza Roman Work Phone: [facility] 11-23-2023 08:19-0400 Inhaled oxygen flow rate 2 L/min Dr. Aliza Roman Work Phone: [facility] 11-23-2023 08:19-0400 Respiratory rate 20 /min Dr. Aliza Roman Work Phone: [facility] 11-23-2023 08:19-0400 SaO2% (BldA) [Mass fraction] 94 % Dr. Aliza Roman Work Phone: [facility] 11-23-2023 08:19-0400 Systolic blood pressure 131 mm[Hg] Dr. Aliza Roman Work Phone: [facility] 08-31-2023 10:46-0500 Body height 162.[address] Aliza Roman Work Phone: [facility] 08-31-2023 10:46-0500 Body mass index (BMI) [Ratio] 58.7 kg/m2 Dr. Aliza Roman Work Phone: [facility] 08-31-2023 10:46-0500 Body weight 155.[address] Aliza Roman Work Phone: [facility] 07-23-2023 06:22-0500 Body mass index (BMI) [Ratio] 57.3 kg/m2 Dr. Aliza Roman Work Phone: [facility] 07-23-2023 06:22-0500 Body temperature 97.3 [degF] Dr. Aliza Roman Work Phone: [facility] 07-23-2023 06:22-0500 Body weight 151.[address] Aliza Roman Work Phone: [facility] 07-23-2023 06:22-0500 Diastolic blood pressure 82 mm[Hg] Dr. Aliza Roman Work Phone: [facility] 07-23-2023 06:22-0500 Heart rate 105 /min Dr. Aliza Roman Work Phone: [facility] 07-23-2023 06:22-0500 Respiratory rate 18 /min Dr. Aliza Roman Work Phone: [facility] 07-23-2023 06:22-0500 SaO2% (BldA) [Mass fraction] 93 % Dr. Aliza Roman Work Phone: [facility] 07-23-2023 06:22-0500 Systolic blood pressure 130 mm[Hg] Dr. Aliza Roman Work Phone: [facility] 02-15-2023 10:05-0400 Body height 162.[address] Aliza Roman Work Phone: [facility] 02-15-2023 10:05-0400 Body mass index (BMI) [Ratio] 57.4 kg/m2 Dr. Aliza Roman Work Phone: [facility] 02-15-2023 10:05-0400 Body temperature 97.9 [degF] Dr. Aliza Roman Work Phone: [facility] 02-15-2023 10:05-0400 Body weight 151.[address] Aliza Roman Work Phone: [facility] 02-15-2023 10:05-0400 Diastolic blood pressure 95 mm[Hg] Dr. Aliza Roman Work Phone: [facility] 02-15-2023 10:05-0400 Heart rate 96 /min Dr. Aliza Roman Work Phone: [facility] 02-15-2023 10:05-0400 Respiratory rate 16 /min Dr. Aliza Roman Work Phone: [facility] 02-15-2023 10:05-0400 SaO2% (BldA) [Mass fraction] 94 % Dr. Aliza Roman Work Phone: [facility] 02-15-2023 10:05-0400 Systolic blood pressure 135 mm[Hg] Dr. Aliza Roman Work Phone: [facility] 01-13-2023 13:03-0400 Body height 162.[address] Aliza Roman Work Phone: [facility] 01-13-2023 13:03-0400 Body temperature 98 [degF] Dr. Aliza Roman Work Phone: [facility] 01-13-2023 13:03-0400 Diastolic blood pressure 95 mm[Hg] Dr. Aliza Roman Work Phone: [facility] 01-13-2023 13:03-0400 Heart rate 100 /min Dr. Aliza Roman Work Phone: [facility] 01-13-2023 13:03-0400 Respiratory rate 16 /min Dr. Aliza Roman Work Phone: [facility] 01-13-2023 13:03-0400 SaO2% (BldA) [Mass fraction] 96 % Dr. Aliza Roman Work Phone: [facility] 01-13-2023 13:03-0400 Systolic blood pressure 152 mm[Hg] Dr. Aliza Roman Work Phone: [facility] 01-05-2023 07:46-0400 Body mass index (BMI) [Ratio] 56.8 kg/m2 Dr. Aliza Roman Work Phone: [facility] 01-05-2023 07:46-0400 Body temperature 97.6 [degF] Dr. Aliza Roman Work Phone: [facility] 01-05-2023 07:46-0400 Body weight 150.[address] Aliza Roman Work Phone: [facility] 01-05-2023 07:46-0400 Diastolic blood pressure 84 mm[Hg] Dr. Aliza Roman Work Phone: [facility] 01-05-2023 07:46-0400 Heart rate 106 /min Dr. Aliza Roman Work Phone: [facility] 01-05-2023 07:46-0400 Inhaled oxygen flow rate 2 L/min Dr. Aliza Roman Work Phone: [facility] 01-05-2023 07:46-0400 Respiratory rate 18 /min Dr. Aliza Roman Work Phone: [facility] 01-05-2023 07:46-0400 SaO2% (BldA) [Mass fraction] 94 % Dr. Aliza Roman Work Phone: [facility] 01-05-2023 07:46-0400 Systolic blood pressure 142 mm[Hg] Dr. Aliza Roman Work Phone: [facility] 05-02-2022 21:59-0400 Diastolic blood pressure 84 mm[Hg] Dr. Aliza Roman Work Phone: [facility] Work Phone: 05-02-2022 21:59-0400 Heart rate 88 /min Dr. Aliza Roman Work Phone: [facility] Work Phone: 05-02-2022 21:59-0400 Respiratory rate 49 /min Dr. Aliza Roman Work Phone: [facility] Work Phone: 05-02-2022 21:59-0400 SaO2% (BldA) [Mass fraction] 98 % Dr. Aliza Roman Work Phone: [facility] Work Phone: 05-02-2022 21:59-0400 Systolic blood pressure 142 mm[Hg] Dr. Aliza Roman Work Phone: [facility] Work Phone: 05-02-2022 21:07-0400 Body temperature 97.7 [degF] Dr. Aliza Roman Work Phone: [facility] Work Phone: 05-02-2022 21:05-0400 Body height 162.[address] Aliza Roman Work Phone: [facility] Work Phone: 05-02-2022 21:05-0400 Body mass index (BMI) [Ratio] 60.5 kg/m2 Dr. Aliza Roman Work Phone: [facility] Work Phone: 05-02-2022 21:05-0400 Body weight 159.[address] Aliza Rmoan Work Phone: [facility] Work Phone: 02-27-2022 07:56-0400 Body mass index (BMI) [Ratio] 59.5 kg/m2 Dr. Aliza Roman Work Phone: [facility] Work Phone: 02-27-2022 07:56-0400 Body temperature 98.7 [degF] Dr. Aliza Roman Work Phone: [facility] Work Phone: 02-27-2022 07:56-0400 Body weight 157.[address] Aliza Roman Work Phone: [facility] Work Phone: 02-27-2022 07:56-0400 Diastolic blood pressure 81 mm[Hg] Dr. Aliza Roman Work Phone: [facility] Work Phone: 02-27-2022 07:56-0400 Heart rate 86 /min Dr. Aliza Roman Work Phone: [facility] Work Phone: 02-27-2022 07:56-0400 Inhaled oxygen flow rate 2 L/min Dr. Aliza Romna Work Phone: [facility] Work Phone: 02-27-2022 07:56-0400 Respiratory rate 20 /min Dr. Aliza Roman Work Phone: [facility] Work Phone: 02-27-2022 07:56-0400 SaO2% (BldA) [Mass fraction] 96 % Dr. Aliza Roman Work Phone: [facility] Work Phone: 02-27-2022 07:56-0400 Systolic blood pressure 147 mm[Hg] Dr. Aliza Roman Work Phone: [facility] Work Phone: 02-14-2022 18:46-0400 Body temperature 97.9 [degF] Dr. Aliza Roman Work Phone: [facility] Work Phone: 02-14-2022 18:46-0400 Diastolic blood pressure 60 mm[Hg] Dr. Aliza Roman Work Phone: [facility] Work Phone: 02-14-2022 18:46-0400 Heart rate 107 /min Dr. Aliza Roman Work Phone: [facility] Work Phone: 02-14-2022 18:46-0400 Respiratory rate 20 /min Dr. Aliza Roman Work Phone: [facility] Work Phone: 02-14-2022 18:46-0400 SaO2% (BldA) [Mass fraction] 94 % Dr. Aliza Roman Work Phone: [facility] Work Phone: 02-14-2022 18:46-0400 Systolic blood pressure 92 mm[Hg] Dr. Aliza Roman Work Phone: [facility] Work Phone: 02-14-2022 15:03-0400 Inhaled oxygen flow rate 2 L/min Dr. Aliza Roman Work Phone: [facility] Work Phone: 02-14-2022 12:35-0400 Body height 162.[address] Aliza Roman Work Phone: [facility] Work Phone: 02-14-2022 12:35-0400 Body mass index (BMI) [Ratio] 60 kg/m2 Dr. Aliza Roman Work Phone: [facility] Work Phone: 02-14-2022 12:35-0400 Body weight 158.[address] Aliza Roman Work Phone: [facility] Work Phone: 12-02-2021 13:46-0400 Body mass index (BMI) [Ratio] 59.1 kg/m2 Dr. Aliza Roman Work Phone: [facility] Work Phone: 12-02-2021 13:46-0400 Body weight 156.[address] Aliza Roman Work Phone: [facility] Work Phone: 10-17-2021 06:25-0500 Body mass index (BMI) [Ratio] 59.7 kg/m2 Dr. Aliza Roman Work Phone: [facility] Work Phone: 10-17-2021 06:25-0500 Body temperature 97.5 [degF] Dr. Aliza Roman Work Phone: [facility] Work Phone: 10-17-2021 06:25-0500 Body weight 157.[address] Aliza Roman Work Phone: [facility] Work Phone: 10-17-2021 06:25-0500 Diastolic blood pressure 83 mm[Hg] Dr. Aliza Roman Work Phone: [facility] Work Phone: 10-17-2021 06:25-0500 Heart rate 89 /min Dr. Aliza Roman Work Phone: [facility] Work Phone: 10-17-2021 06:25-0500 Respiratory rate 18 /min Dr. Aliza Roman Work Phone: [facility] Work Phone: 10-17-2021 06:25-0500 SaO2% (BldA) [Mass fraction] 95 % Dr. Aliza Roman Work Phone: [facility] Work Phone: 10-17-2021 06:25-0500 Systolic blood pressure 145 mm[Hg] Dr. Aliza Roman Work Phone: [facility] Work Phone: Encounters Encounter Date Encounter Type Care Provider Facility Start: 06-12-2025 ambulatory Carlos Rojas y:[facility] Start: 06-02-2025 ambulatory [facility] Start: 05-29-2025 Office outpatient ne w 45 minutes [facility] Start: 05-29-2025 ambulatory [facility] Start: 04-23-2025 End: 04-23-2025 Emergency department patient visit Dr. Aliza Roman MD Work Phone: -Emergency Department Work Phone: Start: 02-06-2025 End: 02-06-2025 Patient encounter procedure Lesvia Russo MANAGER NIGHT-C -[facility] Work Phone: Start: 02-06-2025 End: 02-06-[address] Aliza Roman MD Work Phone: [facility] Work Phone: Start: 01-23-2025 End: 01-23-2025 Patient encounter procedure Dania Norris MANAGER NIGHT-C -[facility] Work Phone: Start: 01-23-2025 End: 01-23-[address] Aliza Roman MD Work Phone: [facility] Work Phone: Start: 01-09-2025 End: 01-09-2025 Admission to same day surgery center Dr. Carlos Ibarra MD [facility] Start: 01-09-2025 End: 01-09-[address] Aliza Roman MD Work Phone: [facility] Work Phone: Start: 12-19-2024 End: 12-19-2024 Patient encounter procedure Lesvia Russo NP-C -[facility] Work Phone: Start: 12-19-2024 End: 12-19-2024 ambulatory Aliza Roman Facility:[facility] Start: 11-27-2024 End: 11-27-2024 Emergency department patient visit Dr. Aliza Roman MD Work Phone: -Emergency Department Work Phone: Start: 10-28-2024 End: 10-28-2024 Emergency department patient visit Dr. Aliza Roman MD Work Phone: -Emergency Department Work Phone: Start: 09-21-2024 End: 09-21-[address] Aliza Roman MD -Laboratory, [place] Work Phone: Start: 09-21-2024 End: 09-21-2024 ambulatory Aliza Roman Facility:[facility] Start: 08-29-2024 ambulatory Carlos Ibarra Facilit y:[facility] Start: 08-29-2024 End: 08-29-2024 Admission to same day surgery center Dr. Carlos Ibarra MD -[facility] Start: 08-29-2024 End: 08-29-2024 ambulatory Carlos Ibarra Facility:[facility] Start: 02-02-2024 End: 02-02-2024 ambulatory KIALA PFEIFFER [employer]PER[employer] Facility:[facility] Start: 02-02-2024 End: 02-02-2024 Patient encounter procedure KAILA PFEIFFER [employer] SUPERVISOR-[employer] FISHERMAN [facility] Start: 01-19-2024 End: 01-19-2024 ambulatory KAILA PFEIFFER [employer] SUPERVISOR-[employer]ERMAN Facility:[facility] Start: 01-19-2024 End: 01-19-2024 Patient encounter procedure KAILA SAUCEDONER [employer] SUPERVISOR-[employer]ERMAN [facility] Start: 12-23-2023 End: 12-23-2023 Emergency department patient visit Dr. Aliza Roman Work Phone: [facility] Work Phone: Start: 12-18-2023 End: 12-19-2023 Emergency department patient visit Dr. Aliza Roman Work Phone: [facility] Work Phone: Start: 12-05-2023 End: 12-05-2023 Emergency department patient visit Dr. Aliza Roman Work Phone: [facility] Work Phone: Start: 11-23-2023 End: 11-23-[address] Aliza Roman Work Phone: [facility] Work Phone: Start: 11-19-2023 End: 11-19-2023 ambulatory DENNY STEVENS Facility:[facility] Start: 11-16-2023 End: 11-16-2023 ambulatory DENNY STEVENS Facility:[facility] Start: 11-16-2023 End: 11-16-2023 Subsequent hospital visit by physician Angel [facility] Work Phone: Radiology Comment on above: Pain [R52] Start: 10-30-2023 End: 10-30-[address] Aliza Roman Work Phone: [facility] Work Phone: Start: 10-30-2023 End: 10-30-[address] Aliza Roman Work Phone: [facility]-Radiology, [facility] Work Phone: Start: 10-13-2023 Orders Only Torito Mccormick Work Phone: [facility] Comment on above: Pain (Primary Dx) Pain in left hip (Pr imary Dx) Start: 10-06-2023 End: 10-06-2023 ambulatory SIMIN HENDRIX Facility:[facility] Start: 10-06-2023 End: 10-06-2023 ambulatory SIMINMAXIMO HENDRIX Facility:[facility] Start: 10-06-2023 End: 10-06-2023 Patient encounter procedure Simin Hendrix Work Phone: Podiatry Comment on above: Onychomycosis (Prima ry Dx); Pain in toe of left foot; Pain in toe of right foot; Callus of foot Start: 10-06-2023 End: 10-06-2023 Subsequent hospital visit by physician Xr [facility] Work Phone: Radiology Comment on above: Pain [R52] Start: 09-10-2023 End: 09-10-[address] Aliza Roman Work Phone: [facility] Work Phone: Start: 09-03-2023 End: 09-03-[address] Aliza Roman Work Phone: [facility] Work Phone: Start: 09-03-2023 End: 09-03-[address] Aliza Roman Work Phone: [facility]Laboratory Work Phone: Start: 08-31-2023 End: 08-31-[address] Aliza Roman Work Phone: [facility] Work Phone: Start: 07-23-2023 End: 07-23-[address] Aliza Roman Work Phone: [facility]-Pulmonary Medicine [facility] Work Phone: Start: 02-15-2023 End: 02-15-2023 Emergency department patient visit Dr. Aliza Roman Work Phone: [facility]Emergency Department Start: 02-02-2023 End: 02-02-[address] Aliza Roman Work Phone: [facility] Work Phone: Start: 02-02-2023 End: 02-02-[address] Aliza Roman Work Phone: [facility] Start: 01-30-2023 End: 01-30-[address] Aliza Roman Work Phone: [facility]Laboratory Start: 01-21-2023 End: 01-21-[address] Aliza Roman Work Phone: [facility] Start: 01-13-2023 End: 01-13-2023 Emergency department patient [facility] Start: 01-05-2023 End: 01-05-[address] Aliza Roman Work Phone: [facility] Start: 05-02-2022 End: 05-02-2022 Emergency department patient visit Dr. Aliza Roman [facility] Start: 02-27-2022 End: 02-27-[address] Aliza Roman Work Phone: [facility] Start: 02-14-2022 End: 02-14-2022 Emergency department patient visit Dr. Aliza Roman [facility] Start: 12-02-2021 End: 12-02-[address] Aliza Roman Work Phone: [facility] Start: 10-17-2021 End: 10-17-[address] Aliza Roman Work Phone: [facility] Start: 10-10-2021 End: 10-10-2021 Patient encounter procedure TONNY SONG MD [facility] Procedures Date Procedure Procedure Detail Performing Clinician Start: 05-29-2025 Radiologic examinati on pelvis 1/2 carol Mas Start: 04-23-2025 Plain x-ray of pelvi s and lower extremity Dr. Aliza Roman MD Work Phone: Start: 04-23-[address] Aliza Roman MD Work Phone: Start: 01-09-[address] 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 Aliza balderas Work Phone: SARS-CoV-2 & FLU Ant igen (Rapid) Dr. 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 Aliza aly Work Phone: Plan of Treatment Date Care Activity Detail Author Start: 04-23-2025 [facility] Start: 01-09-2025 Arthrocentesis aspir &/inj major jt/bursa w/o us DRAIN/INJ JOINT/BURSA W/O US [facility] Start: 01-09-2025 Fluoroscopic guidance [facility] Start: 01-09-2025 Patient discharge [facility] Start: 11-27-2024 [facility] Start: 11-27-2024 [facility] Start: 10-28-2024 [facility] Start: 08-29-2024 Arthrocentesis aspir &/inj major jt/bursa w/o us DRAIN/INJ JOINT/BURSA W/O US [facility] Start: 08-29-2024 Patient discharge [facility] Start: 12-23-2023 [facility] Start: 12-19-2023 [facility] Start: 12-05-2023 [facility] Start: 09-03-2023 Procedure [facility] Start: 08-31-2023 Patient referral [facility] Work Phone: Start: 08-24-2023 Depression Assessment Depression Ass essment [facility] Start: 04-24-2023 Covid-19 Vaccine () Covid-19 Vaccine () [facility] Start: 05-02-2022 Plain x-ray of hand Hand Min 3 Views [facility] Work Phone: Start: 05-02-2022 XR Hand GE 3 Views [facility] Work Phone: Start: 02-14-2022 End: 02-14-2022 [facility] Work Phone: Start: 02-14-2022 End: 02-14-2022 Blood culture [facility] Work Phone: Start: 01-27-2015 Pneumococcal vaccination Pneum ococcal Vaccine (2 of 2 - PCV) [facility] Start: 2003 Hepatitis B Vaccine (1 of 3 - 19+ 3-dose series) Hepatitis B Vaccine (1 of 3 - 19+ 3-dose series) [facility] Start: 2003 Urine microalbumin profile DTaP,Tdap,Td Vaccine (1 - Tdap) [facility] Start: 2002 Annual PCP Team Uniformer oswaldo Disease Visit Annual PCP Team Chronic Disease Visit [facility] Start: 2002 Hepatitis B surface antibody level LDL Cholesterol [facility] Start: 2002 Hepatitis C screening Hepatitis C Sc alondra [facility] Start: 2002 HIV screening HIV Screening [facility] Start: 1994 Diabetic foot examination Diabetic F oot Exam [facility] Start: 1994 Glaucoma screening Dilated Retinal E xam [facility] Start: 1994 Hepatitis B screening Urine Albumin:Creatinine Ratio [facility] Start: 1989 Hemoglobin A1c measurement HbA1C [facility] Start: 1984 Hepatitis B Vaccine (1 of 3 - 3-dose series) Hepatitis B Vaccine (1 of 3 - 3-dose series) [facility] Bacteria identified in Blood by Culture Blood Culture [facility] Work Phone: Bacteria identified in Urine by Culture Urine Culture [facility] Work Phone: Blood culture [facility] Work Phone: Patient Education [facility] Work Phone: Patient referral [facility] Work Phone: XR Foot - bilateral AP and Lateral and oblique XR FOOT GENERAL 3V AP/LAT/OBL BILATERAL Radiology Routine Pain 10/06/2023 12:52 PM EST [facility] Work Phone: End: 11-11-2024 XR Pelvis and Hip - left AP and Lateral frog [facility] Work Phone: Comment on above: 1 Occurrences starti ng 10/13/2023 until 11/11/2024 1 Occurrences starti ng 10/14/2023 until 11/11/2024 XR Pelvis and Hip - left AP and Lateral frog XR HIP GENERAL 3V PELV/AP/LAT LEFT Radiology Routine Pain 11/16/2023 10:36 AM EDT [facility] Work Phone: [facility] Work Phone: [facility] Immunizations Immunization Date Immunization Notes Care Provider Fa cili 12-14-2020 Covid (Moderna) Dr. Aliza flores Work Phone: [facility] 05-30-[address] Aliza Roman Work Phone: [facility] 05-25-[address] Aliza Roman Work Phone: [facility] 05-24-[address] Aliza Roman Work Phone: [facility] 05-12-[address] Aliza Roman Work Phone: [facility] 05-25-[address] Aliza Roman Work Phone: [facility] 01-27-[address] Byron Roman Work Phone: [facility] Work Phone: 01-27-2014 pneumococcal vaccine , unspecified formulation Dr. Aliza Roman Work Phone: [facility] Payers Date Payer Category Payer Self-pay [id number] 2015 Medicaid [employer] [id number] 2015-Present [phone] [address] [place] [address] Medicaid [id number] 2015 Medicare [employer] [id number] 2015-Present [phone] [address] [place] [address] Medicare [id number] 2014 Unknown [id number] 2014 Unknown [id number] 1984 Unknown [id number] 1984 Unknown [id number] 1984 Unknown [id number] Unknown [id number] Unknown [id number] Unknown [id number] Unknown [id number] Unknown [id number] Unknown [id number] Unknown [id number] Unknown [id number] Unknown [id number] Unknown [id number] Unknown [id number] Social History Date Type Detail Facility [facility] Start: 1985 Sex Assigned At Male A [facility] Start: 02-14-2022 End: 12-23-2023 Tobacco smoking status NHIS Unknown if ever smoked [facility] Start: 10-27-2020 None [facility] Start: 10-27-2020 Spouse/ Signif icant Other [facility] Start: 10-27-2020 Non-smoker [facility] Start: 05-16-2014 End: 04-23-2025 Tobacco smoking status NHIS Never smoked tobacco [facility] Start: 05-16-2014 Tobacco use and exposure Smokeless tobacco non-user [facility] Start: 10-06-2023 Alcohol intake Current drinke r of alcohol (finding) [facility] Start: 10-06-2023 History of Social function [facility] Start: 10-06-2023 Tobacco use panel [facility] National Score (1-100), lower number is lower risk 66 [facility] Start: 10-06-2023 Alcohol Comment holidays [facility] Start: 1985 Sex Assigned At Not on file C [facility] Start: 10-28-2024 End: 11-27-2024 Sex Male (finding) [facility] Goals Date Patient Goal Desired Activity /State Mental Status Date Assessment Result Facility 01-09-2025 Cognitive function Voice/Name [facility] Work Phone: 11-27-2024 Cognitive function Level Of Cons ciousness Awake;Alert;Appropriate;Follow s Commands [facility] Work Phone: 08-29-2024 Cognitive function Voice/Name [facility] Work Phone: 02-14-2022 Cognitive function Level Of Cons ciousness Awake;Alert;Appropriate;Follow s Commands [facility] Work Phone: Clinical Notes 10-06-2023 to 04-23-2025 Note Date & Type Note Facility 04-23-2025 Discharge summary [facility] 04-23-2025 Radiology Diagnostic study note [facility] Imaging Services [address] [place], [place] [id number] HIP, UNI W/ Pelvis 2-3 Views MR#: [id number] Acct: [id number] Name: DONNA RODRIGES Rep #: [id number] : 1985 M 39 From: Fran Meyer MD PCP: Dr. Aliza Roman MD Status: REG ER Study:HIP, UNI W/ Pelvis 2-3 Views Date of Ex am: 04/23/25 Exam# [id number] Ordering Dr: Molina Johnson MD PROCEDURE: HIP, UNI W/ PELVIS 2-3 VIEWS 04/23/2025 REASON FOR EXAM: INJURY/PAIN TECHNIQUE: Procedure Code: RADHP Modality: DX Procedure: HIP, UNI W/ PELVIS 2-3 VIEWS Laterality: Left COMPARISON: November 27, 2024, January 13, 2023 FINDINGS: Bones: No fracture seen. Joints: Severe joint space narrowing with flattening, remodeling, sclerosis, subchondral cyst formation. Soft tissues: Soft tissues are unremarkable. Note: The femoral heads are aspherical. RAD/HIP, UNI W/ Pelvis 2-3 Views IMPRESSION: Very severe osteoarthritis of the left hip. This has significantly worsened since December 2022. No fracture. Note: The femoral heads are aspherical. Correlate with impingement. Orthopedicconsultation suggested to ensure no significant bony reduction and bone stock and remodeling of the acetabulum in this young patient. Reading Location: [id number] CC: Dr. Aliza Roman MD; Dr. Dre Johnson MD ~ Group Therapist: Signed [facility] 04-23-2025 Discharge summary Note Date/Time April 23, 2025 6:39pm [facility] Medical Records Department [address] [place] [address] Emergency Department Summary 04/23/25 MR#: [id number] Acct: [id number] Name: DONNA RODRIGES Rep #:[id number] : 1985 39 From: Dre Johnson MD PCP: Dr. Aliza Roman MD Status:REG ER Location: ED HPI History of Present Illness Chief Complaint: Lower Extremity Injury Detail of Chief Complaint: Pain localized to the left greater trochanteric region. Informant: patient, spouse/S.O. and EMS Onset/Context/Timing Onset: Days (Pain has gotten worse over the past 2 days) Context: Sudden Onset Timing: Continuous Quality: Pain Location: Points to the left greater trochanteric region. Current Severity: Mild Maximum Severity: Severe Worsened by: Weightbearing Relieved by: Nothing Associated Symptoms Associated Symptoms: Denies paresthesia, anesthesia or motor weakness. Denies symptoms of ji Narrative Narrative: Patient states Dr. Alexis and checks his hip with cortisone. He was asked specifically he has history of osteoporosis. He was not certain. Review of prior records and outside records indicates he does have osteoarthritis of his left hip joint. He was asked if he has [id number]. He responded yes. He denies fever, chills night sweats. He denies urologic symptoms. He denies paresthesia, anesthesia motors. He is a type II diabetic on Mounjaro and insulin. He takes insulin prior to eating. He denies cramps or pain in his calf or thigh with walking. He has not noted a rash over the left hip region. He denies direct or indirect trauma to the hip area. Prior similar symptoms: Yes Recent Illness/Hospitalization: No PFSH PFS Medical History ROBERT treated with BiPAP Cerebral palsy Anxiety Chronic cough Diabetes Non-smoker History of echocardiogram History of stress test 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 Seizure disorder Depression Hypertension History of bronchitis History of pneumonia GERD (gastroesophageal reflux disease) Chest pain Vertigo Super obesity Bronchial asthma Gout Type II diabetes mellitus History of cerebral palsy Obstructive sleep apnea Benign hypertension Medical History no medical history Home Medications ?Medication ?Instructions ?Recorded ?Last Taken ?Type baclofen 20 mg tablet 20 mg PO Q12H muscle spasms 06/25/18 08/28/24 History pantoprazole 40 mg tablet,delayed 40 mg PO DAILY gi 08/28/24 History release acetaminophen 325 mg tablet 650 [...] mg PO BID gout 12/19/24 Unknown History 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,top taper machine,cont #1 ea 12/19/24 Unknown Rx (FreeStyle Nancy 3 Acampo) celecoxib 200 mg capsule 200 mg PO DAILY 12/19/24 Unk nown History rosuvastatin 5 mg tablet 5 mg PO QDAY #30 tabs Unknown Rx budesonide-formoterol HFA 160 2 inh inhalation BID #1 ea 01/23/25 Unknown Rx mcg-4.5 mcg/actuation aerosol inhaler (Symbicort) levetiracetam 500 mg tablet 500 mg PO BID seizures 10/18 Unknown History nebivolol 10 mg tablet 10 mg PO DAILY heart 5 Unknown History 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 sensor (FreeStyle #2 ea 02/06/25 Unknown Rx Nancy 3 Plus Sensor device) insulin regular hum U-500 conc 500 115 unit (0.23 mL) subcut TIDWMEAL 02/06/25 Unknown Rx unit/mL(3 mL) subcut pen (Humulin #18 mL R U-500 (Conc) Insulin Kwikpen) tirzepatide 5 mg/0.5 mL 5 mg (0.5 mL) subcut QWEEK # 2 mL 02/06/25 Unknown Rx subcutaneous pen injector (Mounakashro) hydrocodone-acetaminophen 5-325mg 1 tab PO Q6H PRN PRN Pain 5 days 04/23/25 Unknown Rx 5mg-325mg #20 TABLETS Allergy/AdvReac Type Severity Reaction Status Date / Time animal dander Allergy Chest Verified 02/06/25 13:06 tightness grass pollen Allergy Other Verified 02/06/25 13:06 house dust Allergy Other Verified 02/06/25 13:06 pollen extracts Allergy Other Verified 02/06/25 13:06 Family History Father Chronic a-fib CVA (cerebral vascular accident) Mother ROBERT (obstructive sleep apnea) Breast cancer Grandfather Cancer bladder Other Diabetes Hypertension Thyroid disorder Family History no significant family his Surgical History H/O hernia repair H/O eye surgery S/P PAYROLL ACCOUNTING SPECIALIST shunt Surgical History no surgical history Social History (Updated 04/23/25 @ 16:[address] Dre Johnson MD) household members: spouse Smoking Status: Never smoker ROS ROS ED Constitutional Constitutional ED: Denies chills, fever(s), subjective, sweats or weight loss Gastrointestinal Gastrointestinal: Denies abdominal pain, nausea or vomiting Genitourinary Genitourinary ED: Denies dysuria or urinary frequency Musculoskeletal Musculoskeletal: Reports other Details: Pain left hip region ; Denies arthralgias, back pain, myalgias or neck pain Integumentary Denies Abrasions or rash Neurologic Neurologic: Denies paresthesias or weakness Endocrine Endocrinology: Denies cold intolerance or heat intolerance Hematologic/Lymphatic Hematologic/Lymphatic: Reports systems reviewed and no addt'l complaints, exceptas documented EXAM Physical Exam Const Vital Signs: 04/23/25 16:30 Temperature 98.4 F Temperature Source Oral Pulse Rate 95 Respiratory Rate 20 H Blood Pressure 153/66 H Blood Pressure Mean 95 Pulse Ox 97 Oxygen Delivery Method Room Air Positive well nourished and well developed Constitutional Narrative: Patient's BMI is 59.4. Vital signs are remarkable for elevated blood pressure of 153/66. Pulse pressure slightly widened pulse. General Appearance ED: well developed and NAD; Negative for cyanotic, diaphoretic or pallor HEENT Reports moist mucous membranes HEENT Narrative: Head is atraumatic. Eyes are normal. Ears are normal. Eyes PERRL and EOMs intact bilaterally General Eye ED: Negative for pale conjunctiva or scleral icterus Resp normal respiratory effort and clear to auscultation bilaterally Cardio regular rate, regular rhythm, S1 normal heart sound, S2 normal heart sound and no murmurs GI normal to inspection, nondistended, normoactive bowel sounds, non-tender, non-distended and no masses; Negative for hepatosplenomegaly Extremity Negative for normal to inspection Extremity Narrative: Patient has thickening of his toenails. He still has hair on his toes. DP pulse was palpable. PT was not due to edema. Capillary refill is normal. Sensation is normal right and left foot. Logrolling of his left lower extremitydoes not cause him discomfort. He is able to lift his leg up off the bed. He does have pain outpatient over the left greater trochanteric region. Neuro oriented x3, CN's II-XII intact bilaterally and no sensory deficits noted Sensorium / Orientation: alert Psych Mood & Affect: depressed Skin no rashes or lesions noted, no wounds and skin turgor normal General Skin Exam: Negative for jaundice or pallor MDM MDM MDM Narrative Medical decision making narrative: Suspect patient has exacerbation of his osteoarthritis based on review of outside records and ER records. Outside records were reviewed and were authoredby Lesvia Russo, for endocrine and management of his diabetes, Dania Kenny regarding his pulmonary disease and obstructive sleep apnea, ER visit November of this year for fall. Also records from earlier this year regarding sleep lab note. Suspect patient's pain is due to osteoarthritis and is worse since his BMI is 59.4. Has not had images for 2 to 3 years. Will reimage the area and obtain basic blood work to assess white count, electrolytes and specifically glucose renal function and inflammatory markers. History & Record Review Additional record(s) reviewed:: Prior outpatient record, Prior ED visit and Prior labs Lab Data Attestation: I reviewed the patient's lab results. Lab results narrative: CBC is unremarkable. Basic metabolic panel reveals glucose of 195. CO2 anion gap are normal. Sed rate slightly elevated. This is nonspecific. Labs: Laboratory Results - last 24 hr 04/23/25 16:58 WBC 9.8 RBC 5.03 Hgb 14.5 Hct 43.6 MCV 86.7 MCH 28.8 MCHC 33.3 RDW Std Deviation 46.8 H RDW Coeff of Kus[place] 14.9 H Plt Count 206 MPV 10.7 Immature Gran % (Auto) 0.900 Neut % (Auto) 64.0 Lymph % (Auto) 24.9 [place] % (Auto) 6.6 Eos % (Auto) 3.1 Baso % (Auto) 0.5 Absolute Neuts (auto) 6.3 Absolute Lymphs (auto) 2.44 Nucleated RBC % 0 ESR 37 H Sodium 143 Potassium 4.0 Chloride 105 Carbon Dioxide 25.1 Anion Gap 13 BUN 12 Creatinine 0.60 L Estim Creat Clear Calc 227.69 Est GFR (MDRD) Non-Af 125 BUN/Creatinine Ratio 20.1 H Glucose 195 H Calcium 8.9 Radiography Chest X-Ray - ED: Read by ED Physician (Three-view x-ray of the left hip revealssevere osteoarthritis. This has progressed significantly since December 2022. Thereis no fracture, subluxation dislocation noted. There is asymmetry of the femoral head) Diagnostic Testing: Clinical Impression(s) from Imaging Studies Hip/Pelvis X-Ray 04/23/25 17:05 IMPRESSION: Very severe osteoarthritis of the left hip. This has significantly worsened since December 2022. No fracture. Note: The femoral heads are aspherical. Correlate with impingement. Orthopedicconsultation suggested to ensure no significant bony reduction and bone stock and remodeling of the acetabulum in this young patient. Reading Location: [id number] The report by radiologist was reviewed at 1731. Will ask if he is seen by orthopedics. He is present under the care of pain management. Based on this heat the minimum needs orthopedic referral to determine if total hip arthroplasty is still an option. Treatment and Re-Evaluation :: Patient and were told he has significant osteoarthritis. He has seen orthopedic surgeon. He informed that he has seen multiple orthopedic surgeons. He is even been seen by the [facility] and they are reluctant to do surgery because of his obstructive sleep apnea and body weight. He has declinedbypass surgery. Patient was treated with opiate analgesics for pain. He is instructed to follow-up with orthopedics because of the significant changes noted since 2022. Discharge Plan Triage Chief Complaint: Lower Extremity Injury ED Provider: Dre Johnson Dx/Rx/DC Orders Clinical Impression: Osteoarthritis of left hip, Type II diabetes mellitus, S/P PAYROLL ACCOUNTING SPECIALIST shunt, Obesity hypoventilation syndrome, Fatty liver disease, nonalcoholic, Obstructive sleep apnea, History of cerebral palsy, Body mass index (BMI) greater than 50 Instructions: ED Osteoarthritis Prescriptions: New hydrocodone-acetaminophen 5-325 mg tablet 1 tab PO Q6H PRN PRN (Reason: Pain) 5 Days Qty: 20 0RF No Action colchicine 0.6 mg tablet 0.6 mg PO PRN Patient Comments: take 1 tablet by mouth every 6 hours if needed for GOUT FLARE albuterol sulfate 2.5 mg /3 mL (0.083 %) solution for nebulization 2.5 mg inhalation Q4H PRN (Reason: shortness of breath or wheezing) Qty: 180 11RF Patient Comments: has not taken to date, on standby albuterol sulfate 90 mcg/actuation HFA aerosol inhaler 2 inh inhalation Q4H PRN PRN (Reason: Sob &/Or Wheezing) Qty: 8.5 11RF Patient Comments: has not taken, on standby montelukast 10 mg tablet 10 mg PO DAILY Qty: 90 3RF (DME) spacer See Rx Instructions .ROUTE .MEDSUPPLY Qty: 1 0RF Rx Instructions: As directed potassium citrate 10 mEq (1,080 mg) tablet extended release 10 meq PO DAILY Patient Comments: TAKE 1 TABLET BY MOUTH EVERY DAY celecoxib 200 mg capsule 200 mg PO DAILY (DME) FreeStyle Nancy 3 Acampo Misc See Rx Instructions .Route Qty: 1 0RF Rx Instructions: As directed rosuvastatin 5 mg tablet 5 mg PO QDAY Qty: 30 5RF budesonide-formoterol [Symbicort] 160-4.5 mcg/actuation HFA aerosol inhaler 2 inh inhalation BID Qty: 1 11RF Rx Instructions: administer with spacer, rinse mouth after each use Mounjaro 5 mg/0.5 mL pen injector 5 mg subcut QWEEK Qty: 2 3RF (DME) FreeStyle Nancy 3 Plus Sensor Device See Rx Instructions .Route Qty: 2 5RF Rx Instructions: 1 sensor 15 q days Humulin R U-500 (Conc) Kwikpen 500 unit/mL (3 mL) insulin pen 115 unit subcut TIDWMEAL Qty: 18 5RF allopurinol 300 mg tablet 300 mg PO BID Patient Comments: gout nebivolol 10 mg tablet 10 mg PO DAILY Patient Comments: blood pressure baclofen 20 MG tablet 20 mg PO Q12H pantoprazole 40 MG tablet 40 mg PO DAILY levetiracetam 500 mg tablet 500 mg PO BID Patient Comments: seizure acetaminophen 325 MG tablet 650 mg PO Q6H PRN PRN (Reason: Pain Score 1-10/Temp > 100.7 F) 0RF furosemide 20 MG tablet 40 mg PO BID Patient Comments: Diuretic (water pill) Primary Care Provider: Aliza Roman Referrals: Aliza Roman MD [Primary Care Provider] - Activity Restrictions/Additional Instructions: The name of the bicycle sharps are [employer] and at [employer] Language: German Disposition Disposition: Home, Self Care What to do if you have Problems For any increased pain, shortness of breath, bleeding, nausea or vomiting, chestpain, or any unexpected problems, contact your Primary Care Provider. Call [facility] ([phone]) or report to the closest Emergency Room. Call 911 if necessary. 04/23/25 1839 <Electronically signed by Dre Johnson MD> Cosigner Signature (if applicable): CC: Dr. Aliza Roman MD ~ Signed [facility] Work Phone: 1(650) 492-100906-02-2025 Evaluation note* Diagnosis Onset Date Resolution Status Admit Date Bronchial asthma chronic January 2:35pm Hypoxia chronic January 23, 2025 2:35pm Obesity hypoventilation syndrome chr onic January 23, 2025 2:35pm Super obesity chronic January 23, 025 2:35pm Benign hypertension chronic February 06, 2025 12:58pm Hyperlipemia chronic February 06 025 12:58pm Obesity chronic February 06 12:58pm Type II diabetes mellitus chronic February 06, 2025 12:58pm [facility] Work Phone: 1(223) 379-178605-19-2025 Procedure note [facility] Medical Records Department [address] [place] [address] Operative Report 01/09/25823 MR#: [id number] Acct: [id number] Name: DONNA RODRIGES Rep #:[id number] : 1985 39 From: Carlos Ibarra MD PCP: Dr. Aliza Roman MD Status:[facility] Location: [place] [address] Operative Report (Standard) Operative Information Date of Procedure: 01/09/25 Pre-Operative Diagnosis: 1 Post-Operative Diagnosis: 1 Surgery/Procedure Performed: 1 marker hand: No Type of Anesthesia: Local MAC RN [...] PERFORMED: Left hip intraarticular steroid injection under fluoroscopyguidance. ANESTHESIA: MAC BLOOD LOSS: Minimal. COMPLICATIONS: None. DESCRIPTION OF PROCEDURE: History and physical of today was reviewed. Risks and benefits of the procedure were explained. The patient understood and agreedto proceed. Informed consent was obtained. IV inserted [...] 1% lidocaine using a 25-gauge regular needle approximately3 cm cephalad to the left greater trochanter. [...] vicinity of the joint, after negative aspiration forblood andpositive aspiration of synovial fluid, a total of 1 mL of contrast was injected to confirmcorrect placement of the needle as well as halo spread around the hipjoint. After repeated negativeaspiration for blood and confirmation on AP as well as oblique view, a total of 10 mL of preservative-free 0.25% Marcaine with 80 mg of Depo- Medrol was injected easily. The needle was then removed intact. The patient experienced no sign or symptoms of intrathecal or intravascular injection. The patient experienced no paresthesia. The procedure was completedwithout any apparent difficulty or any complications. The patient appeared to tolerate it well. ASSESSMENT AND PLAN: This is a 39-year-old male with osteoarthritis of the left hip status post left hip intra-articularsteroid injection under fluoroscopic guidance, patient will continue his current medications, patient will follow up in approximately 2 weeks for reevaluation. Surgical Findings: 1 Complications Complications: No Admit VTE Documentation VTE Present on Admission: No VTE Mechan Device Prophylaxis: None VTE Pharm Prophylaxis ordered?: No 01/09/25824 Cosigner Signature (if applicable): CC: Dr. Aliza Roman MD; Dr. Carlos Ibarra MD~ Signed [facility]05-19-2025 Consult note [facility] Medical Records Department [address] [place] [address] Pre-Anesthesia Evaluation 01/09/25 0718 MR#: [id number] Acct: [id number] Name: DONNA RODRIGES Rep #:[id number] : 1985 39 From: Sridhar Cardozo MD PCP: Dr. Aliza Roman MD Status:REG [facility] Race: C Location: [place] [address] ASA Classification* ASA Classification ASA Classification: 3 [...] 11/27/24 11:11/27/24 Hgb 15.1 g/dL (13.0-16.5) 11/27/24 11:19 11/27/24 Hct 45.3 % (40-54) 11/27/24 11:19 11/27/24 [...] hip injection Anesthesia History Anesthesia History - academic success coordinator: Anesthesia History - academic success coordinator Hx Hospitalization No 03/17/24 08:06 Any Problems [...] take am of surgery PONV PONV - academic success coordinator: PONV - academic success coordinator Female HX of Motion Sickness HX of N/V After Surgery Non-Smoker Duration of Surgery greater than 60 minutes Number of Risk Factors PONV Score Height & Weight Height & Weight: Anesthesia: Height & Weight Height 5 ft 4 in 01/09/25 06:48 Weight: 159 kg 01/09/25 06:48 Body Mass Index (BMI) 60.1 01/09/25 06:48 Respiratory Assessment Respiratory Assessment - academic success coordinator: Respiratory Tract Infection Hx - academic success coordinator Hx Respiratory Tract Infection No 03/17/24 08:06 STOP Sleep Apnea STOP Sleep Apnea - academic success coordinator: STOP Sleep Apnea - academic success coordinator Hx Hypertension Yes: CONTROLLED WITH MEDS 03/17/24 [...] than talking or can be heard through closeddoors)? 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 Specify any problems Hx of Preganancy in last 3 Months Nurse Filling Out Transfusion & Questions: Date: Time: Patient unable to answer at this time (ie. confused, unrespo /Reproduction History /Reproductive History - academic success coordinator: /Reproductive Hx- academic success coordinator Hx Now Gestational Age (in weeks): EDC: [...] Unknown Rx Nancy 3 Plus Sensor device) 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,top taper machine,cont #1 ea 12/19/24 Unknown Rx (FreeStyle Nancy 3 Acampo) celecoxib 200 mg capsule 200 mg PO [...] H/O hernia repair H/O eye surgery S/P PAYROLL ACCOUNTING SPECIALIST shunt Social History Smoking Status: Never smoker Review of Systems (Anesthesia) ROS Narrative System reviewed and no additional complaints, except as documented. 01/09/25718 > Date _ Sridhar Cardozo MD Cosigner Signature: Date CC: ~ Signed [facility]04-28-2025 Evaluation note* Diagnosis Onset Date Resolution Status Admit Date Benign hypertension chronic December 19, 2024 1:29pm Fatty liver disease, nonalcoholic chronic December 19, 2024 1:29pm Hyperlipemia chronic December 19, 2024 1:29pm Obesity chronic December 19 1:29pm Type II diabetes mellitus chronic December 19, 2024 1:29pm [facility] Work Phone: 1(237) 378-775204-28-2025 Evaluation note* Diagnosis Onset Date Resolution Status [...] 23, 2025 2:35pm Super obesity chronic January 23, 2 025 2:35pm [facility] Work Phone: 1(240) 866-876104-06-2025 Radiology Diagnostic study note [facility] Imaging Services [address] [place] [address] Shuntogram/Prev Placed Shunt MR#: [id number] Acct: [id number] Name: DONNA RODRIGES Rep #: [id number] : 1985 M 39 From: Pet er Peer DO PCP: Dr. Aliza Roman MD Status: REG ER Study:Shuntogram/Prev Placed Shunt Date of Ex am: 11/27/24 Exam# [id number] Ordering Dr: Mica Mendez DO EXAM: Diagnostic shuntogram of placed shunt. CLINICAL HISTORY: Bilateral lower extremity edema for 2 days. COMPARISON: Yesterday, November 26 pelvis and November 27 brain TECHNIQUE: Plain films were obtained to survey the entire course of the right-sided PAYROLL ACCOUNTING SPECIALIST shunt. FINDINGS: Skull demonstrates right parietal shunt. The tubing traverses the right skull and right thorax and then is seen right abdomen initially and then crosses over to the left abdomen. No obvious kinking or other abnormality. RAD/Shuntogram/Prev Placed Shunt IMPRESSION: Patent PAYROLL ACCOUNTING SPECIALIST shunt. Reading Location: [facility] CC: Dr. Aliza Roman MD; Dr. Davonte Mendez DO ~ Group Therapist: Signed [facility]04-06-2025 Radiology Diagnostic study note [facility] Imaging Services [address] [place], [place] [id number] HIP, UNI W/ Pelvis 2-3 Views MR#: [id number] Acct: [id number] Name: LORENDONNA J Rep #: [id number] : 1985 M 39 From: Pet er Peer PCP: Dr. Aliza Roman MD Status: REG ER Study:HIP, UNI W/ Pelvis 2-3 Views Date of Ex am: 11/27/24 Exam# [id number] Ordering Dr: Krystina Bunch PROCEDURE: HIP, UNI [...] Advanced osteoarthritis of left hip. Reading Location: [facility] CC: Dr. Aliza Roman MD; GUICHO Jarrell ~ Group Therapist: Signed [facility]04-06-2025 Radiology Diagnostic study note [facility] Imaging Services [address] [place] [address] Brain/Head without Contrast MR#: [id number] Acct: [id number] Name: DONNA RODRIGES Rep #: [id number] : 1985 M 39 From: Pet er Peer PCP: Dr. Aliza Roman MD Status: REG ER Study:Brain/Head without Contrast Date of Exa m: 11/27/24 Exam# [id number] Ordering Dr: Krystina Bunch PROCEDURE: BRAIN/HEAD WITHOUT CONTRAST 11/27/2024 REASON FOR EXAM: HEAD INJURY, POSSIBLE SEIZURE PAYROLL ACCOUNTING SPECIALIST shunt surgery. History of seizures TECHNIQUE: Head CT without intravenous contrast. Coronal and Sagittal reconstruction serieswere provided. One or more dose reduction techniques were used (e.g., Automated exposure control, adjustment of the mA and/or kV according to patient size, use of iterative reconstruction technique. RADIATION DOSE SUMMARY: CTDlvol: 44.99 mGy DLP: 796.11 mGycm COMPARISON: None. FINDINGS: Brain: Right parietal PAYROLL ACCOUNTING SPECIALIST shunt tube appears satisfactorily positioned. No ventriculomegaly. No mass, mass effect or midline shift. No intra-axial or extra-axial hemorrhage. CSF Spaces: Again PAYROLL ACCOUNTING SPECIALIST shunt tube in place. Ventricles and sulci are normal in size. Sinuses/Mastoids: Mucous retention cyst in the base of the left maxillary sinus. Mastoid air cells and remaining sinuses are clear. Bones: Unremarkable. CT/Brain/Head without Contrast IMPRESSION: No acute process detected. Reading [facility] CC: Dr. Aliza Roman MD; GUICHO Jarrell ~ Group Therapist: Signed [facility]06-11-2024 Note ORIGINAL EXAMINATION: CT OF THE HEAD [...] Sign Date: 02/02/2024 3:05:07 PM Ordering Provider: [facility]04-27-2024 Discharge summary Author Zeny Dumont [facility] December 19, 2023 1:20am Note Date/Time December 18, 2023 11: 05pm [facility] Medical Records Department [address] [place] [address] Emergency Department Summary 12/18/23 MR#: [id number] Acct: [id number] Name: DONNA RODRIGES Rep #:[id number] : 1985 38 From: Zeny Dumont MD PCP: Dr. Ailza Roman MD Status:REG ER Location: ED HPI [...] controlled. He finished his last prescription of Roby today and states he doesnot want to go last picker his new prescription tomorrow because the [...] he come back to the emergency room. [facility] Medical History Benign hypertension Bronchial asthma [...] H/O eye surgery H/O hernia repair S/P PAYROLL ACCOUNTING SPECIALIST shunt Social History Smoking Status: Never smoker [...] % (Auto) 60.9 Lymph % (Auto) 27.8 [place] % (Auto) 7.9 Eos % (Auto) 2.0 [...] him a prescription for naproxen. He has Roby and baclofen to last picker at the pharmacy tomorrow. Return instructions [...] your Primary Care Provider. Call [facility] ([phone]) or report to the closest Emergency Room. Call 911 if necessary. 12/19/23 0120 <Electronically signed by Zeny Dumont MD> Cosigner Signature (if applicable): CC: Dr. Aliza Roman MD ~ Signed [facility] Work Phone: 1(360) 842-114804-13-2024 Discharge summary Author Romulo Estrella [facility] December 05, 2023 2:16pm Note Date/Time December 05, 2023 11: 23am [facility] Medical Records Department [address] [place] [address] Emergency Department Summary 12/05/23 MR#: [id number] Acct: [id number] Name: DONNA RODRIGES Rep #:[id number] : 1985 38 From: Romulo Estrella MD [...] it hurts when he sitsor lies flat. [facility] Medical History Benign hypertension Bronchial asthma [...] H/O eye surgery H/O hernia repair S/P PAYROLL ACCOUNTING SPECIALIST shunt Social History Smoking Status: Never smoker [...] % (Auto) 57.5 Lymph % (Auto) 31.9 [place] % (Auto) 7.5 Eos % (Auto) 1.5 [...] Sl. Cloudy Urine pH 5.0 Ur Specific [place] 1.010 Urine Protein 30 H Urine Glucose [...] your Primary Care Provider. Call [facility] ([phone]) or report to the closest Emergency Room. Call 911 if necessary. 12/05/23 1416 <Electronically signed by Romulo Estrella MD> Cosigner Signature (if applicable): CC: Dr. Aliza Roamn MD ~ Signed [facility] Work Phone: 1(549) 957-752303-28-2024 NoteHNO ID: [id number] Author: TORITO DUEÑAS PA-C Service: ? Author Type: Physician Microsoft Access Developer Type: Progress Notes Filed: 11/19/2023 18:52 Note [...] Review of Systems: Reviewed and charted into [facility]. Physical Exam: PE reveals a male with [...] degenerative change. Maintained sacroiliac (more content not included)...[facility]03-25-2024 NoteHNO ID: [id number] Author: RICHIE LOUIS RT(R) Service: Radiology Author [...] PATIENT PRESENTS WITH AN IMPLANTABLE OR ATTACHED PERSONAL DEVELOPMENT COACH: No RADIOLOGY DEPARTMENT: General X-ray: Exam(s) Completed: Pelvis X-Ray: Pelvis with Hip Left PERIPHERAL IV DATA: Not applicable SIGNED BY: RT Shahrzad(R) November 16, 2023 10:28 [facility]03-25-2024 History of Present illness Narrative* Richie Louis [...] PATIENT PRESENTS WITH AN IMPLANTABLE OR ATTACHED PERSONAL DEVELOPMENT COACH: No RADIOLOGY DEPARTMENT: General X-ray: Exam(s) Completed: Pelvis X-Ray: Pelvis with Hip Left PERIPHERAL IV DATA: Not applicable SIGNED BY: RT Shahrzad(Juliano) November 16, 2023 10:28 AM documented in [facility]-2024 NoteHNO ID: [id number] Author: SIMIN HENDRIX, ? Service: ? Author [...] palsy (HCC) DM2 (diabetes mellitus, type 2) ([facility]) Gout HTN (hypertension) Hydrocephalus with operating shunt [...] seen and evaluated. 2. (more content not included)...[facility]02-13-2024 NoteHNO ID: [id number] Author: CAMRYN MILAN LPN Service: ? Author Type: LICENSED NURSE Type: Progress Notes Filed: 10/06/2023 14:44 Note Text: AMB ROOMING INTAKE FLOWSHEET DATA Risk Screening Do you have concerns about personal safety or safety in the home?: No Patient presents with: Left Foot - New, Diabetic Foot Care Right Foot - New, Diabetic Foot Care [facility]-2024 NoteHNO ID: [id number] Author: TONI GONZALEZ RT(R) Service: Radiology Author [...] PATIENT PRESENTS WITH AN IMPLANTABLE OR ATTACHED PERSONAL DEVELOPMENT COACH: No RADIOLOGY DEPARTMENT: General X-ray: Exam(s) Completed: Lower Extremity X-Ray(s): Foot, Bilateral PERIPHERAL IV DATA: Not applicable SIGNED BY: RT King(R) October 06, 2023 12:37 [facility]02-13-2024 Instructions* Patient Instructions* Simin Hendrix - 10/06/2023 [...] (or decreased sensation in your feet) a senior paralegal should always cut your toenails. Be Careful [...] Go to your health care provider or senior paralegal to treat these conditions. documented in this [facility]24 History of Present illness Narrative* Simin Hendrix [...] Care Camryn Milan LPN documented in this [facility]Kind[facility]-13-2024 History of Present illness Narrative* Toni Gonzalez RT(R) - 10/06/2023 1:20 PM EST [...] PATIENT PRESENTS WITH AN IMPLANTABLE OR ATTACHED PERSONAL DEVELOPMENT COACH: No RADIOLOGY DEPARTMENT: General X-ray: Exam(s) Completed: Lower Extremity X- Ray(s): Foot, Bilateral PERIPHERAL IV DATA: Not applicable SIGNED BY: RT King(R) October 06, 2023 12:37 PM [facility] Author Sridhar Cardozo [facility] Note Date/Time January 09, 2025 7:19a m [facility] Medical Records Department [address] [place] [address] Pre-Anesthesia Evaluation 01/09/25 0718 MR#: [id number] Acct: [id number] Name: DONNA RODRIGES Rep #:[id number] : 1985 39 From: Sridhar Cardozo MD PCP: Dr. Aliza Roman MD Status:REG SDC Y Race: C Location: [place] [address] ASA Classification* ASA Classification ASA Classification: 3 [...] 11:19 11/27/24 RBC 5.14 M/mm3 (4.6-6.2) 11/27/24 11:19 11/27/24 Hgb 15.1 g/dL (13.0-16.5) 11/27/24 11:19 11/27/24 Hct 45.3 % (40-54) 11/27/24 11:19 11/27/24 [...] TSH 3.80 uIU/mL (0.358-3.74) H 01/29/20 06:12 0603/12 COAG PT 13.3 SECONDS (11.7-14.9) 02/14/22 13:37 Pre-Assessment Diagnosis/Proposed Procedure Planned Operative Procedure(s): left hip injection Anesthesia History Anesthesia History - academic success coordinator: Anesthesia History - academic success coordinator Hx Hospitalization No 03/17/24 08:06 Any Problems [...] take am of surgery PONV PONV - academic success coordinator: PONV - academic success coordinator Female HX of Motion Sickness HX of N/V After Surgery Non-Smoker Duration of Surgery greater than 60 minutes Number of Risk Factors PONV Score Height & Weight Height & Weight: Anesthesia: Height & Weight Height 5 ft 4 in 01/09/25 06:48 Weight: 159 kg 01/09/25 06:48 Body Mass Index (BMI) 60.1 01/09/25 06:48 Respiratory Assessment Respiratory Assessment - academic success coordinator: Respiratory Tract Infection Hx - academic success coordinator Hx Respiratory Tract Infection No 03/17/24 08:06 STOP Sleep Apnea STOP Sleep Apnea - academic success coordinator: STOP Sleep Apnea - academic success coordinator Hx Hypertension Yes: CONTROLLED WITH MEDS 03/17/24 [...] Tobacco Use History Tobacco Use History - academic success coordinator: Tobacco Use History - academic success coordinator Tobacco Use Non-smoker 02/27/22 14:09 Smoking Status Never smoker 11/27/24 11:04 Hx Tobacco Use No 03/17/24 08:06 Years Smoking Packs Smoked per Day Smoking Cessation Date was within the last 15 years Hx Smoking Cessation Date Hx Smoking Cessation Counseling Hematologic Medial History Hematologic Hx - academic success 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 Specify any problems Hx of Preganancy in last 3 Months Nurse Filling Out Transfusion & Questions: Date: Time: Patient unable to answer at this time (ie. confused, unrespo /Reproduction History /Reproductive History - academic success coordinator: /Reproductive Hx- academic success coordinator Hx Now Gestational Age (in weeks): EDC: [...] Unknown Rx Nancy 3 Plus Sensor device) 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,top taper machine,cont #1 ea 12/19/24 Unknown Rx (FreeStyle Nancy 3 Acampo) celecoxib 200 mg capsule 200 mg PO [...] H/O hernia repair H/O eye surgery S/P PAYROLL ACCOUNTING SPECIALIST shunt Social History Smoking Status: Never smoker Review of Systems (Anesthesia) ROS Narrative System reviewed and no additional complaints, except as documented. 01/09/25718 <Electronically signed by Sridhar Cardozo MD > Date _ Sridhar Cardozo MD Cosigner Signature: Date CC: ~ Signed [facility] Work Phone: Evaluation + Plan note No data available for this section [facility] Evaluation + Plan note Future Appointments Appointment Date:02/02/2024 01:30:00 PM Scheduled Provider: Location:RAD Appointment Type:CT Head or Brain w/o Contrast Future Scheduled Tests Radiology* XR Shuntogram 01/19/24 * CT Head or Brain w/o Contrast 02/02/24 * XR Skull Minimum 4 Views 01/19/24 [facility] Evaluation note* Diagnosis Onset Date Resolution Status Obesity hypoventilation syndrome acute Bronchial asthma chronic Super obesity chronic History of cerebral palsy ch ronic Congenital dysplasia of left hip noneactive [facility] Work Phone: evaluation note* Diagnosis Onset Date Resolution Status Hypoxia acute Obesity hypoventilation syndrome acute Bronchial asthma [facility] Work Phone: evaluation note* Diagnosis Onset Date Resolution Status Obesity hypoventilation syndrome acute Bronchial asthma chronic Super obesity chronic History of cerebral palsy ch ronic Cerebral palsy noneactive Congenital dysplasia of left hip noneactive [facility] Work Phone: Evaluation note* Diagnosis Onset Date Resolution Status Obesity hypoventilation syndrome acute Bronchial asthma chronic Super obesity chronic Hip pain acute 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 [facility] Work Phone: Evaluation note* Diagnosis Onychomycosis- Primary Dermatophytosis of nail Pain in toe of left foot Pain in limb Pain in toe of right foot Pain in limb Callus of foot Corns and callosities [facility] Generalized pain [facility] Pain- Primary Generalized pain [facility] Pain in left hip- Primary Pain in joint, pelvic region and thigh [facility] Pain Generalized pain [facility] Diagnosis Onset Date Resolution Status Hip pain acute 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 acute Obesity hypoventilation syndrome acute Bronchial asthma chronic Super obesity chronic [facility] Work Phone: Evaluation noteNo assessment information available [facility] Work Phone: Hospital Discharge instructions No data available for this section [facility] Hospital Discharge instructions Additional Instructions Call your pain management physician on Thursday. You can continue Tylenol up to 3 g / 3000 mg a day. Continue your tramadol as previously directed. You have evidence of spinal stenosis on your CT scan.[facility] Work Phone: Hospital Discharge instructions Additional Instructions Follow-up with your PCP and return for any worsening symptoms.[facility] Work Phone: Hospital Discharge instructionsAdditional Instructions The name of the bicycle [employer] are [employer] and [facility] Work Phone: Progress note No data available for this section [facility] Reason for referral (narrative)* Diagnostic Procedure Only (Routine) - Authorized Specialty Diagnoses / Procedures Referred By Stephen vega Referred To Contact XR IMAGING Diagnoses Pain Procedures XR HIP GENERAL 3V PELV/AP/LAT LEFT RADEX HIP UNILATERAL WITH PELVIS 2-3 VIEWS Torito Dueñas PA-C [address] [address] Xr Imaging [facility] Referral ID Status Reason Start Date Expiration Date Visits Requested Visits Authorized [id number] Authorized Auto-Generat ed Referral 10/13/2023 11/11/2024 1 1 [facility] for referral (narrative)* Diagnostic Procedure Only (Routine) - Pending Review Specialty Diagnoses / Procedures Referred By Contac t Referred To Contact XR IMAGING Diagnoses Pain in left hip Procedures XR HIP GENERAL 3V PELV/AP/LAT LEFT RADEX HIP UNILATERAL WITH PELVIS 2-3 VIEWS Philippe Lamb MD [address] [place] [address] Xr Imaging [place] [address] Referral ID Status Reason Start Date Expiration Date Visits Requested Visits Authorized [id number] Pending Review Auto-Generat ed Referral 10/14/2023 11/11/[address] [facility] for referral (narrative)No reason for referral information availableWNationwide Children's Hospital Work Phone: Reason for visit Narrative* Diagnostic Procedure Only (Routine) - Closed Specialty Diagnoses / Procedures Referred By Contac t Referred To Contact XR IMAGING Diagnoses Pain Procedures XR FOOT GENERAL 3V AP/LAT/OBL BILATERAL RADEX FOOT COMPLETE MINIMUM 3 VIEWS Simin Hendrix[address] [place] [address] X[facility] Referral ID Status Reason Start Date Expiration Date V isits Requested Visits Authorized [id number] Closed Auto-Generate d Referral 09/18/2023 10/17/[address] [facility] for visit Narrative* Diagnostic Procedure Only (Routine) - Closed Specialty Diagnoses / Procedures Referred By Contac t Referred To Contact XR IMAGING Diagnoses Pain Procedures XR HIP GENERAL 3V PELV/AP/LAT LEFT RADEX HIP UNILATERAL WITH PELVIS 2-3 VIEWS Torito Dueñas PA-C [address] [place] [id number] Xr Imaging [facility] Referral ID Status Reason Start Date Expiration Date V isits Requested Visits Authorized [id number] Closed Auto-Generate d Referral 10/13/2023 11/11/2024 1 1 [facility] Chief Complaint and Reason for Visit Chief [...] Super obesity January 23, 2025 2:35p m Chief Complaint Admit Date 6 M FU January 23, 2025 2:35p m 7 Wk FU February 06, 2025 12:5 8pm lower ex April 23, 2025 4: 29pm Reason for Visit Admit Date Bronchial asthma January 23, 2025 2:35p m Hypoxia January 23, 2025 2:35p m Obesity hypoventilation syndrome January 2:35pm Super obesity January 23, 2025 2:35p m Benign hypertension February 06, 2025 12:5 8pm Hyperlipemia February 06, 2025 12:5 8pm Obesity February 06, 2025 12:5 8pm Type II diabetes mellitus February 06 12:58pm Family History No Family History Records Found [...] No February 14, 2022 1:41pm Power of Business Unit Director No February 14 1:41pm Advance Directive Response Recorded Date/ Time Advance Directives Yes February 27 2:09pm Living Will No May 02 9:07pm Power of Business Unit Director No May 02, 2022 9:07pm Advance Directive Response Recorded Date/ Time Advance Directives Yes February 27 2:09pm Living Will No January 13, 2023 2 :25pm Power of Business Unit Director No January 13, 2023 2:25pm Advance Directive Response Recorded Date/ Time Advance Directives Yes February 27 2:09pm Living Will No February 15, 2023 10:20am Power of Business Unit Director No February 15 10:20am Advance Directive Response Recorded Date/ Time Advance Directives Yes February 27 1:09pm Living Will No February 15, 2023 9:20am Power of Business Unit Director No February 15 9:20am Advance Directive Response Recorded Date/ Time Advance Directives Yes February 27 2:09pm Living Will No December 05, 2023 11:10am Power of Business Unit Director No December 04 11:10am Advance Directive Response Recorded Date/ Time Advance Directives Yes February 27 2:09pm Living Will No December 18, 2023 10:28pm Power of Business Unit Director No December 17 10:28pm Advance Directive Response Recorded Date/ Time Advance Directives Yes February 27 2:09pm Living Will No December 23, 2023 5: 08pm Power of Business Unit Director No December 23, 2023 5:08pm Advance Directive Response Recorded Date/ Time Living Will No October 28, 2024 2:17pm Power of Business Unit Director No October 28 2:17pm Advance Directives Yes February 27 1:09pm Advance Directive Response Recorded Date/ Time Living Will No October 28, 2024 3:17pm Do you have a Healthcare Power of Business Unit Director? No October 28, 2024 3:17pm Living Will No November 27, 2024 11:04am Do you have a Healthcare Power of Business Unit Director? No November 27, 2024 11:04am Advance Directives Yes February 27 2:09pm Advance Directive Response Recorded Date/ Time Do you have a Healthcare Power of Business Unit Director? No April 23, 2025 4:33pm Advance Directives Yes February 27 2:09pm Summary [...] Provider, Referrin g Provider Active Dania Norris MANAGER NIGHT, MANAGER NIGHT-C Attending Provider Active Team Status: Inactive Member Role Status Dates Dr. Aliza Roman MD Primary Care Provider, Referrin g Provider Active Rain LINDO PA Attending Provider Active Team Status: Inactive Member Role Status Dates Dr. Aliza Roman MD Primary Care Provider Active Dr. Asif Mast MD Attending Provider, Emergency Provider Active Team Status: Inactive Member Role Status Dates Dr. Aliza Roman MD Primary Care Provider Active Rain LINDO PA Attending Provider, Referring Provi jaclyn Active Team [...] Primary Care Provider, Referrin g Provider Active Dr. Kenneth Gaytan MD Attending Provider Active Team Status: Inactive Member Role Status Dates Dr. Aliza Roman MD Primary Care Provider, Referrin g Provider Active Denny Santos MD Attending Provider Active Team Status: Inactive Member Role Status Dates Dr. Aliza Roman MD Primary Care Provider Active Dr. Alejandro Gray MD Attending Provider, Referring Pr ovider Active Commercial Service Technician Relationship Specialty Start Date End Date Denny Stevens MD [address] [place] [address] PCP - General Family Medicine 07/21/22 Denny Santos MD [facility] [place] [id number] Referring Sports Medicine 08/31/23 Commercial Service Technician Relationship Specialty Start Date End Date Denny Stevens MD [address] [place] [phone] PCP - General Family Medicine 07/21/22 Denny Santos MD [address] [place], [place] [phone] Referring Sports Medicine 08/31/23 Commercial Service Technician Relationship Specialty Start Date End Date Denny Stevens MD [address] [place] [id number] PCP - General Family Medicine 07/21/22 Denny Santos MD [address] [place] [address] Referring Sports Medicine 08/31/23 Commercial Service Technician Relationship Specialty Start Date End Date Denny Stevens MD [address] [place] [id number] PCP - General Family Medicine 07/21/22 Denny Santos MD [address] [place], [place] [phone] Referring Sports Medicine 08/31/23 Team Status: Inactive [...] Active Member Role Status Dates Dr. Aliza Roman [...] December 19, 2024 End: December 19, 2024 SANA WinterC Attending Provider Active Start: December 19, 2024 [...] 2025 End: January 23, 2025 Dania Norris NP MANAGER NIGHT-C Attending Provider Active Start: January 23, 2025 End: January 23, 2025 Team Status: Inactive Member Role Status Dates Dr. Aliza Roman MD Primary Care Provider Active Start: February 06, 2025 End: February 06, 2025 Dr. Aliza Roman MD Referring Provider Active Start: February 06, 2025 End: February 06, 2025 ROBERT Winter Attending Provider Active Start: February 06, 2025 End: February 06, 2025 Team Status: Active Member Role/Relationship Status Dates Dr. Aliza Roman MD Primary Care Provider Active Team Status: Inactive Member Role/Relationship Status Dates Dr. Aliza Roman MD Primary Care Provider Active Start: January 09, 2025 End: January 09, 2025 Dr. Carlos Ibarra MD Attending Provider Active Start: January 09, 2025 End: January 09, 2025 Dr. Carlos Ibarra MD Referring Provider Active Start: January 09, 2025 End: January 09, 2025 Team Status: Inactive Member Role/Relationship Status Dates Dr. Aliza Roman MD Primary Care Provider Active Start: January 23, 2025 End: January 23, 2025 Dr. Aliza Roman MD Referring Provider Active Start: January 23, 2025 End: January 23, 2025 Dania Norris NP MANAGER NIGHT-C Attending Provider Active Start: January 23, 2025 End: January 23, 2025 Team Status: Inactive Member Role/Relationship Status Dates Dr. Aliza Roman MD Primary Care Provider Active Start: February 06, 2025 End: February 06, 2025 Dr. Aliza Roman MD Referring Provider Active Start: February 06, 2025 End: February 06, 2025 Lesvia Russo NP-C Attending Provider Active Start: February 06, 2025 End: February 06, 2025 Team Status: Inactive Member Role/Relationship Status Dates Dr. Aliza Roman MD Primary Care Provider Active Start: April 23, 2025 End: April 23, 2025 Dr. Dre Johnson MD Emergency Provider Active Sta rt: April 23, 2025 End: April 23, 2025 Source Comments (unrecognize d section and content) In the event this informatio n is protected by the Federal Confidentiality of Alcohol and Drug Abuse Patient Records regulations: The Federal rules restrict any use of the information to criminally investigate or prosecute any alcohol or drug abuse patient.[facility] the event this information is protected by the Federal Confidentiality of Alcohol and Drug Abuse Patient Records regulations: The Federal rules restrict any use of the information to criminally investigate or prosecute any alcohol or drug abuse patient.[facility] the event this information is protected by the Federal Confidentiality of Alcohol and Drug Abuse Patient Records regulations: The Federal rules restrict any use of the information to criminally investigate or prosecute any alcohol or drug abuse patient.[facility] the event this information is protected by the Federal Confidentiality of Alcohol and Drug Abuse Patient Records regulations: The Federal rules restrict any use of the information to criminally investigate or prosecute any alcohol or drug abuse patient.[facility] the event this information is protected by the Federal Confidentiality of Alcohol and Drug Abuse Patient Records regulations: The Federal rules restrict any use of the information to criminally investigate or prosecute any alcohol or drug abuse patient.[facility] Reason for Visit (unrecogniz ed section and content) Reason Comments [facility] (unrecognized sect ion and content) No Status Records FoundNo Status Records FoundNo Status Records FoundNo Status Records Found INFORMATION SOURCE (unrecogn ized section and content) DATE CREATED AUTHOR 11/20/2023 [facility] DATE CREATED AUTHOR AUTHOR'S ORGANIZ ATION 02/04/2024 [facility] DATE CREATED AUTHOR AUTHOR'S ORGANIZ ATION 06/06/2025 [facility] DATE CREATED AUTHOR AUTHOR'S ORGANIZ ATION 06/10/2025 [facility] FOR RECORDS PERTAINING TO PATIENTS WHO [...] BE BASED ON THE PRIMARY CLINICAL RECORDS. [employer] provides no warranty or guarantee of the accuracy or completeness of information in this document.
[2025-06-12] MEDS: Lactated Ringers 1,000 ML 15 ML IV (07:31)
--- NOTE | 2025-06-12 07:40 | RAD_ITS ---
PROCEDURE: FLUORO GUIDED NEEDLE PLACEMENT 06/12/2025 REASON FOR EXAM: HIP INJECTION LEFT TECHNIQUE: Procedure Code: RADFGN Modality: DX Procedure: FLUORO GUIDED NEEDLE PLACEMENT. Radiation dose: 2.1 mGy. Fluoroscopy: 5.2 seconds. 2 images were submitted. Intraoperative fluoroscopic services provided for left hip injection. COMPARISON: None FINDINGS: Intraoperative fluoroscopic services provided for left hip injection. RAD/Fluoro Guided Needle Placement IMPRESSION: Intraoperative fluoroscopic services provided for left hip injection. Reading Location: [place] [address]
--- NOTE | 2025-06-12 07:50 | PRE.ANES_ITS ---
ASA Classification* ASA Classification ASA Classification: 3 Assessment & Plan Anesthesia* Anesthesia Assessment Anesthesia Assessment: Discussed sedation and/or anesthesia options, risks, benefits, and alternatives with patient/parents/legal guardian/POA. Questions invited. The patient/parents/legal guardian/POA seems to understand and agrees to proceed with anesthesia plan. Reviewed the physical assessment, medical history, allergy history and patient home medications list prior to surgery/procedure/anesthetic and documented any changes. Performed airway and anesthesia risk assessments. Anesthesia Type Anesthesia Type: MAC Anesthesia Focused Assessment* Temperature: 98 F Pulse Rate: 77 Blood Pressure: 139/79 Respiratory Rate: 16 Pulse Ox: 95 Airway Assessment Mouth opens: >3 cm Mallampati Score: II Labs Anesthesia Preop lab: CBC WBC, (4.4-11.0) 9.8 K/mm3 04/23/25, 16:58 RBC, (4.6-6.2) 5.03 M/mm3 04/23/25, 16:58 Hgb, (13.0-16.5) 14.5 g/dL 04/23/25, 16:58 Hct, (40-54) 43.6 % 04/23/25, 16:58 Plt Count, (150-450) 206 K/mm3 04/23/25, 16:58 CHEMISTRY Potassium, (3.3-5.1) 4.0 mmol/L 04/23/25, 16:58 Sodium, (133-145) 143 mmol/L 04/23/25, 16:58 Magnesium, (1.6-2.6) 2.1 mg/dL 10/28/20, 05:30 Phosphorus, (2.5-4.9) 2.4 mg/dL L 01/28/20, 08:30 BUN, (4-19) 12 mg/dL 04/23/25, 16:58 Creatinine, (0.70-1.20) 0.60 mg/dL L 04/23/25, 16:58 Glucose, (70-99) 195 mg/dL H 04/23/25, 16:58 POC Glucose, (74-106) 112 mg/dL H Today, 07:17 TSH, (0.358-3.74) 3.80 uIU/mL H 01/29/20, 06:12 COAG PT, (11.7-14.9) 13.3 SECONDS 02/14/22, 13:37 Pre-Assessment Diagnosis/Proposed Procedure Planned Operative Procedure(s): (L) Injection, Hip Anesthesia History Anesthesia History - person investigator: Anesthesia History - person investigator Hx Hospitalization No 06/01/25 15:29 Any Problems With Anesthesia No 06/01/25 15:29 Cholinesterase deficiency No 06/01/25 15:29 You/Your Family Experience No 06/01/25 15:29 fever (hyperthermia) with Relationship Recent Exposure to Contagious No 06/12/25 07:13 Disease Does patient have nerve No 06/01/25 15:29 stimulator Patient instructed to have device shut off --Does patient have Pacemaker No 06/12/25 07:13 or ICD? When Was Last Pacemaker Check QUESTION #4 FULL TEXT: You/Your Family Experience fever (hyperthermia) with Anesthesia Last Oral Intake Last Oral intake: Last Oral Intake NPO since 02:00 06/12/25 07:13 Meds taken in AM with sips of No 06/12/25 07:13 water? 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 - person investigator: PONV - person investigator Female No 06/01/25 15:29 HX of Motion Sickness Yes 06/01/25 15:29 HX of N/V After Surgery No 06/01/25 15:29 Non-Smoker Yes 06/01/25 15:29 Duration of Surgery greater No 06/01/25 15:29 than 60 minutes Number of Risk Factors 2 06/01/25 15:29 PONV Score Moderate Risk 06/01/25 15:29 Height & Weight Height & Weight: Anesthesia: Height & Weight Height 5 ft 4 in 06/12/25 07:13 Weight: 161 kg 06/12/25 07:13 Body Mass Index (BMI) 60.9 06/12/25 07:13 Respiratory Assessment Respiratory Assessment - person investigator: Respiratory Tract Infection Hx - person investigator Hx Respiratory Tract Infection No 06/01/25 15:29 STOP Sleep Apnea STOP Sleep Apnea - person investigator: STOP Sleep Apnea - person investigator Hx Hypertension Yes: CONTROLLED WITH MEDS 06/01/25 15:29 Hx Sleep Apnea Yes 06/01/25 15:29 CPAP No 06/01/25 15:29 BIPAP Yes 06/01/25 15:29 Do you snore loudly (louder than talking or can be heard Do you often feel tired/ fatigued/ sleepy during daytime? Has anyone observed you stop breathing during sleep? STOP Results Positive 06/01/25 15:29 QUESTION #5 FULL TEXT : Do you snore loudly (louder than talking or can be heard through closed doors)? 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 Specify any problems Hx of Preganancy in last 3 N/A 06/01/25 15:29 Months Nurse Filling Out Transfusion MGRIFFITH 06/01/25 15:29 & Questions: Date: 06/01/25 06/01/25 15:29 Time: 15:33 06/01/25 15:29 Patient unable to answer at this time (ie. confused, unrespo /Reproduction History /Reproductive History - person investigator: /Reproductive Hx- person investigator Hx Now No 06/01/25 15:29 Gestational Age (in weeks): EDC: Hx Hx Para Hx Section SAB Active Medications Active Medications: Current Medications Generic Name Dose Route Start Last Admin Trade Name Freq PRN Reason Stop Dose Admin Lactated Ringer's 1,000 mls @ 15 mls/hr 06/12/25 07:15 06/12/25 07:31 IV 15 mls/hr .Q48H ZAIN Administration PFSH Medical History Wears glasses Alcohol use Arthritis Uses wheelchair High cholesterol Restless legs Seizures History of edema BiPAP (biphasic positive airway pressure) dependence On home oxygen therapy ROBERT treated with BiPAP Cerebral palsy Anxiety Chronic cough Diabetes Non-smoker History of echocardiogram History of stress test 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 Seizure disorder Depression Hypertension History of bronchitis History of pneumonia GERD (gastroesophageal reflux disease) Chest pain Vertigo Super obesity Bronchial asthma Gout Type II diabetes mellitus History of cerebral palsy Obstructive sleep apnea Benign hypertension Home Medications ?Medication ?Instructions ?Recorded ?Last Taken ?Type baclofen 20 mg tablet 20 mg PO Q12H muscle spasms 06/25/18 08/28/24 History pantoprazole 40 mg tablet,delayed 40 mg PO DAILY gi 08/28/24 History release acetaminophen 325 mg tablet 650 mg (2 x 325 mg) PO Q6H PRN PRN 04/14/20 08/22/24 Rx Pain Score 1-10/Temp > 100.7 F furosemide 20 mg tablet 40 mg PO BID diuretic 08/28/24 History colchicine 0.6 mg tablet 0.6 mg PO PRN gout 12/02/21 08/22/24 History albuterol sulfate 2.5 mg/3 mL 2.5 mg (3 mL) inhalation Q4H PRN 01/05/23 Unknown Rx (0.083 %) solution for nebulization shortness of breat h or wheezing #180 mL albuterol sulfate 90 mcg/actuation 2 inh inhalation Q4 H PRN PRN Sob 01/05/23 Unknown Rx aerosol inhaler &/Or Wheezing #8.5 grams montelukast 10 mg tablet 10 mg PO DAILY allergies #90 tabs 01/05/23 08/28/24 Rx spacer #1 ea 01/05/23 Unknown Rx potassium citrate 10 mEq (1,080 10 meq PO DAILY 08/28/24 History mg) tablet,extended release allopurinol 300 mg tablet 300 mg PO BID gout 12/19/24 Unknown History 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,fermenting cellars receiver,cont #1 ea 12/19/24 Unknown Rx (FreeStyle Nancy 3 [place]) celecoxib 200 mg capsule 200 mg PO DAILY 12/19/24 Unk nown History rosuvastatin 5 mg tablet 5 mg PO QDAY #30 tabs Unknown Rx budesonide-formoterol HFA 160 2 inh inhalation BID #1 ea 01/23/25 Unknown Rx mcg-4.5 mcg/actuation aerosol inhaler (Symbicort) levetiracetam 500 mg tablet 500 mg PO BID seizures 10/18 Unknown History nebivolol 10 mg tablet 10 mg PO DAILY heart 5 Unknown History 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 sensor (FreeStyle #2 ea 02/06/25 Unknown Rx Nancy 3 Plus Sensor device) insulin regular hum U-500 conc 500 See Rx Instructions subcut TIDWMEAL 06/01/25 Unknown History unit/mL(3 mL) subcut pen (Humulin R U-500 (Conc) Insulin Kwikpen) tirzepatide 5 mg/0.5 mL 5 mg subcut SA 06/01/2512/16 History subcutaneous pen injector (Mounjaro) Allergy/AdvReac Type Severity Reaction Status Date / Time duloxetine Allergy Severe Other Verified 06/12/25 07:11 animal dander Allergy Chest Verified 06/12/25 07:11 tightness grass pollen Allergy Other Verified 06/12/25 07:11 house dust Allergy Other Verified 06/12/25 07:11 pollen extracts Allergy Other Verified 06/12/25 07:11 Family History Father Chronic a-fib CVA (cerebral vascular accident) Mother ROBERT (obstructive sleep apnea) Breast cancer Grandfather Cancer bladder Other Diabetes Hypertension Thyroid disorder Surgical History History of surgery History of surgery H/O hernia repair H/O eye surgery 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
[2025-06-12] MEDS: Lidocaine 1% (5 ml sdv) 5 ML Vial (08:32)
--- NOTE | 2025-06-12 08:56 | PCM.POST.ANE ---
Anesthesia: Postop Eval I Current Vital Signs Temperature: 98 F Pulse Rate: 98 Blood Pressure: 142/78 Respiratory Rate: 18 Pulse Ox: 99 Assessment Airway patent: Yes Spontaneous unlabored respirations: Yes nausea: No Vomiting: No Anesthesia Complication: No Fluid Hydration Crystalloid volume administer (ml): 100 Total IV fluid infused: 100 Progress Note Anesthesia document: Postop Eval 1 completed: Yes
--- NOTE | 2025-06-12 08:57 | OP.PCM_ITS ---
Operative Report (Standard) Operative Information Date of Procedure: 06/12/25 Pre-Operative Diagnosis: Osteoarthritis of the left hip Post-Operative Diagnosis: Osteoarthritis of the left hip Surgery/Procedure Performed: Left hip intraarticular steroid injection under fluoroscopy guidance. gold and silver assayer: No Type of Anesthesia: Local MAC RN Documented Start/Stop Times: Operation Date: 06/12/25 08:40 Case Time Into Pre-Op 06/12/25 07:01 Anesthesia Start 06/12/25 08:41 Into Room 06/12/25 08:41 Procedure End 06/12/25 08:53 Procedure Start Time: 08:57 Procedure Stop Time: 08:57 Select all DRAINS/GRAFTS/IMPLANTS that apply: None Estimated Blood Loss: 1 Specimen collected: No Description of surgery: PREOPERATIVE DIAGNOSIS: Osteoarthritis of the left hip POSTOPERATIVE DIAGNOSIS: Osteoarthritis of the left hip PROCEDURE PERFORMED: Left hip intraarticular steroid injection under fluoroscopy guidance. ANESTHESIA: MAC BLOOD LOSS: Minimal. COMPLICATIONS: None. DESCRIPTION OF PROCEDURE: History and physical of today was reviewed. Risks and benefits of the procedure were explained. The patient understood and agreed to proceed. Informed consent was obtained. IV inserted per routine protocol. The patient was taken to the operating room and placed in the supine position. The left hip area was prepped and draped in a sterile fashion using iodine x3. Under fluoroscopy guidance on AP view, the left hip joint was visualized. The skin and subcutaneous tissue was anesthetized with approximately 3 mL of 1% lidocaine using a 25-gauge regular needle approximately 3 cm cephalad to the left greater trochanter. Under direct visualization with fluoroscopy on an AP view, using a 22-gauge 5-inch spinal needle, the needle was advanced via the skin using the lateral approach. The tip of the needle was maneuvered and directed towards the superiormost aspect of the hip joint. Once the tip of the needle was at the vicinity of the joint, after negative aspiration for blood and positive aspiration of synovial fluid, a total of 1 mL of contrast was injected to confirm correct placement of the needle as well as halo spread around the hip joint. After repeated negative aspiration for blood and confirmation on AP as well as oblique view, a total of 10 mL of preservative-free 0.25% Marcaine with 80 mg of Depo-Medrol was injected easily. The needle was then removed intact. The patient experienced no sign or symptoms of intrathecal or intravascular injection. The patient experienced no paresthesia. The procedure was completed without any apparent difficulty or any complications. The patient appeared to tolerate it well. ASSESSMENT AND PLAN: This is a 40-year-old male with osteoarthritis of the left hip status post left hip intra-articular steroid injection under fluoroscopic guidance, patient will continue his current medications, patient will follow up in approximately 2 weeks for reevaluation. Surgical Findings: 0 Complications Complications: No Admit VTE Documentation VTE Present on Admission: No VTE Mechan Device Prophylaxis: None VTE Pharm Prophylaxis ordered?: No
--- NOTE | 2025-06-12 12:05 | PCM.POSTANE2 ---
Anesthesia Postop Eval I Sum Postop Eval Completion status Anesthesia document: Postop Eval 1 completed: Yes Anesthesia Postop Eval I Summary Anesthesia Postop Eval I Summary: Anesthesia Postop Eval I: Assessment Summary Airway patent Yes 06/12/25 08:56 MAJOR SALES [email or web address].[email or web address] Spontaneous unlabored Yes 06/12/25 08:56 MAJOR SALES ASSOCIATE.CSIR respirations Mental status nausea No 06/12/25 08:56 MAJOR SALES ASSOCIATE.CSIR Vomiting No 06/12/25 08:56 MAJOR SALES ASSOCIATE.CSIR Anesthesia Postop Eval I: Fluid Summary Crystalloid volume administer 100 06/12/25 08:56 MAJOR SALES ASSOCIATE.CSIR (ml) Colloids volume administered ( ml) Blood Product volume administered (ml) Total IV fluid infused 100 06/12/25 08:56 MAJOR SALES ASSOCIATE.CSIR Anesthesia Postop Eval I: Summary Notes Anesthesia Complication No 06/12/25 08:56 MAJOR SALES ASSOCIATE.CSIR Anesthesia Complication Comment: Post-operative progress note Anesthesia: Postop Eval II Evaluation Mental status: Awake Pain Level: 2 nausea: No Vomiting: No
--- NOTE | 2025-06-12 12:05 | POSTOPAN2_ITS ---
Anesthesia Postop Eval I Sum Postop Eval Completion status Anesthesia document: Postop Eval 1 completed: Yes Anesthesia Postop Eval I Summary Anesthesia Postop Eval I Summary: Anesthesia Postop Eval I: Assessment Summary Airway patent Yes 06/12/25 08:56 WELCOME WAGON [email or web address].[email or web address] Spontaneous unlabored Yes 06/12/25 08:56 WELCOME WAGON HOSTESS.CSIR respirations Mental status nausea No 06/12/25 08:56 WELCOME WAGON HOSTESS.CSIR Vomiting No 06/12/25 08:56 WELCOME WAGON HOSTESS.CSIR Anesthesia Postop Eval I: Fluid Summary Crystalloid volume administer 100 06/12/25 08:56 WELCOME WAGON HOSTESS.CSIR (ml) Colloids volume administered ( ml) Blood Product volume administered (ml) Total IV fluid infused 100 06/12/25 08:56 WELCOME WAGON HOSTESS.CSIR Anesthesia Postop Eval I: Summary Notes Anesthesia Complication No 06/12/25 08:56 WELCOME WAGON HOSTESS.CSIR Anesthesia Complication Comment: Post-operative progress note Anesthesia: Postop Eval II Evaluation Mental status: Awake Pain Level: 2 nausea: No Vomiting: No
== END 2025-06-12 09:38 | disposition home or self-care (01) ==
LOC: SDC 06:50 → AC 06:51
PROVIDERS: PCP Family Medicine; Referring Provider Anesthesiology Pain Medicine; Visit Provider Anesthesiology Pain Medicine
PROC: 3E0U3GC Introduction of Other Therapeutic Substance into Joints, Percutaneous Approach (ICD-10-PCS; CPT 20610; principal; 2025-06-12 08:35)
DX: M16.12 Unilateral primary osteoarthritis, left hip (principal); E11.9 Type 2 diabetes mellitus without complications; E78.00 Pure hypercholesterolemia, unspecified; I10 Essential (primary) hypertension; K21.9 Gastro-esophageal reflux disease without esophagitis; Z79.85 Long-term (current) use of injectable non-insulin antidiabetic drugs
CPT/HCPCS: 20610; 76000; 77002; 82962; J2405

== ENCOUNTER 2025-06-15 14:47 | Observation (INO) | payer MEDICARE, MEDICAID, SELFPAY ==
[2025-06-15 14:48] VITALS: BP 134/88; PULSE 99; RESP 14; TEMP 36.8; O2SAT 97; BMI 61.7
--- NOTE | 2025-06-15 15:06 | CT_ITS ---
PROCEDURE: EXTREMITY LOWER WITHOUT CONTRA 06/15/2025 REASON FOR EXAM: Chronic left hip pain, worse today. TECHNIQUE: Procedure Code: CTELWO Modality: CT Procedure: EXTREMITY LOWER WITHOUT CONTRA Coronal and Sagittal reconstruction series were provided. One or more dose reduction techniques were used (e.g., Automated exposure control, adjustment of the mA and/or kV according to patient size, use of iterative reconstruction technique). RADIATION DOSE SUMMARY: CTDlvol: 62.15 mGy DLP: 2483.48 mGycm COMPARISON: XR LT HIP w/ Pelvis 2-3 Views, 04/23/2025 FINDINGS: BONES: No acute fracture or focal osseous lesion. JOINTS: No dislocation. Severe left hip joint space narrowing with subchondral sclerosis, cystic change and mild femoral head flattening. Small hip joint effusion. SOFT TISSUES: Linear calcifications in the left rectus femoris muscle near the myotendinous junction, likely related to prior injury. Bilateral ductus deferens calcification, can result from diabetes (most common), normal aging or chronic infection/inflammation. CT/Extremity Lower without Contra IMPRESSION: Severe left hip osteoarthrosis with small joint effusion. Reading Location: [id number]
--- NOTE | 2025-06-15 15:07 | ED.VIS.LOWEX ---
HPI History of Present Illness Chief Complaint: Lower Extremity Injury Narrative Narrative: 40-year-old male past medical history of obesity, chronic left hip pain secondary to hip dysplasia presents with increasing left hip pain. He relates history that he has been seen by his pain management physician, Dr. Alexis. Yesterday he had cortisone injections into his left hip. However, today he is experiencing increased pain with weightbearing. No fevers or chills, no nausea or vomiting. He called Dr. Alexis, and because of his increasing pain was prescribed hydrocodone but he has been unable to take it. He states that no orthopedic surgeon in the area will touch him and that he has been following up with Dr. Guadalupe in [facility]. He states that there is a piece of bone, that may be projecting into the tissue. He is concerned that this piece of bone may have shifted and is causing him more pain. Additionally, he denies any recent falls or trauma. [facility] Medical History Wears glasses Alcohol use Arthritis Uses wheelchair High cholesterol Restless legs Seizures History of edema BiPAP (biphasic positive airway pressure) dependence On home oxygen therapy ROBERT treated with BiPAP Cerebral palsy Anxiety Chronic cough Diabetes Non-smoker History of echocardiogram History of stress test 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 Seizure disorder Depression Hypertension History of bronchitis History of pneumonia GERD (gastroesophageal reflux disease) Chest pain Vertigo Super obesity Bronchial asthma Gout Type II diabetes mellitus History of cerebral palsy Obstructive sleep apnea Benign hypertension Home Medications Medication Instructions Recorded Last Taken Type baclofen 20 mg tablet 20 mg PO Q12H muscle spasms 06/25/18 08/28/24 History pantoprazole 40 mg tablet,delayed 40 mg PO DAILY gi 06/25/18 08/28/24 History release furosemide 20 mg tablet 40 mg PO BID diuretic 10/13/21 08/28/24 History colchicine 0.6 mg tablet 0.6 mg PO PRN gout 12/02/21 08/22/24 History albuterol sulfate 2.5 mg/3 mL 2.5 mg (3 mL) inhalation Q4H PRN 01/05/23 Unknown Rx (0.083 %) solution for nebulization shortness of breath or wheezing #180 mL albuterol sulfate 90 mcg/actuation 2 inh inhalation Q4H PRN PRN Sob 01/05/23 Unknown Rx aerosol inhaler &/Or Wheezing #8.5 grams montelukast 10 mg tablet 10 mg PO DAILY allergies #90 tabs 01/05/23 08/28/24 Rx spacer #1 ea 01/05/23 Unknown Rx potassium citrate 10 mEq (1,080 10 meq PO DAILY 07/23/23 08/28/24 History mg) tablet,extended release allopurinol 300 mg tablet 300 mg PO BID gout 12/19/24 Unknown History 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,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,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 #1 ea 12/19/24 Unknown Rx (FreeStyle Nancy 3 [place]) celecoxib 200 mg capsule 200 mg PO DAILY 12/19/24 Unknown History rosuvastatin 5 mg tablet 5 mg PO QDAY #30 tabs 12/19/24 Unknown Rx budesonide-formoterol HFA 160 2 inh inhalation BID #1 ea 01/23/25 Unknown Rx mcg-4.5 mcg/actuation aerosol inhaler (Symbicort) levetiracetam 500 mg tablet 500 mg PO BID seizures 01/23/25 Unknown History nebivolol 10 mg tablet 10 mg PO DAILY heart 01/23/25 Unknown History 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 sensor (FreeStyle #2 ea 02/06/25 Unknown Rx Nancy 3 Plus Sensor device) insulin regular hum U-500 conc 500 See Rx Instructions subcut TIDWMEAL 06/01/25 Unknown History unit/mL(3 mL) subcut pen (Humulin R U-500 (Conc) Insulin Kwikpen) tirzepatide 5 mg/0.5 mL 5 mg subcut .tuesdays06/15/25 Unknown History subcutaneous pen injector (Mounjaro) Allergy/AdvReac Type Severity Reaction Status Date / Time duloxetine Allergy Severe Other Verified 06/15/25 14:52 animal dander Allergy Chest Verified 06/15/25 14:52 tightness grass pollen Allergy Other Verified 06/15/25 14:52 house dust Allergy Other Verified 06/15/25 14:52 pollen extracts Allergy Other Verified 06/15/25 14:52 Family History Father Chronic a-fib CVA (cerebral vascular accident) Mother ROBERT (obstructive sleep apnea) Breast cancer Grandfather Cancer bladder Other Diabetes Hypertension Thyroid disorder Surgical History History of surgery History of surgery H/O hernia repair H/O eye surgery S/P SWITCH FOREMAN shunt Social History household members: spouse Smoking Status: Never smoker ROS ROS ED ROS Narrative Review of systems positive for left hip pain and left groin pain. No recent falls. No fevers or chills. Increasing pain since cortisone shot. Worse with weightbearing and standing, and with movement. EXAM Physical Exam Narrative Exam Narrative: Afebrile. Vital signs noted. Nontoxic-appearing. Cardiovascular semination regular rate and rhythm. Lungs are clear to auscultation bilaterally. Abdomen is soft and nontender with positive bowel sounds. Diffuse tenderness to palpation left hip and mainly in groin area. Appears neurovasc intact distally. Range of motion of left hip limited secondary to pain. Const Vital Signs: 06/15/25 14:48 06/15/25 18:48 06/15/25 21:04 Temperature 98.2 F 97.9 F Temperature Source Oral Pulse Rate 99 98 78 Respiratory Rate 14 20 H 16 Blood Pressure 134/88 H 135/103 H 146/90 H Blood Pressure Mean 103 113 108 Pulse Ox 97 95 94 Oxygen Delivery Method Room Air MDM MDM MDM Narrative Medical decision making narrative: Differential diagnosis includes but not limited to acute on chronic left hip pain versus fracture versus postinjection pain. I had a lengthy discussion with the patient and his . He will be given morphine 8 mg IM and reimaging of the left hip obtained. In review of his prior workups, has had x-rays. I did believe CT of the left hip would be more beneficial to look for occult fracture. I reviewed the CT report of the CT of the left hip. There is severe left hip osteoarthritis with small effusion. This may be the steroid that was reportedly injected by Dr. Alexis with pain management. Patient required initially the intramuscular injection of morphine, then was given oral hydrocodone. He was requesting even more pain medication as his hip pain is intractable. He is unable to ambulate. I then obtain baseline laboratory work. I reviewed his laboratory work and he has slight leukocytosis of 12.8 which could be from the steroid. Clinically I do not feel he has a septic hip. He has no fever here. Platelet count normal at 201. BMP is remarkable for creatinine low at 0.56 and LFTs are grossly normal. At this point in time, given his intractable hip pain, patient discussed with Dr. Eisenberg for observation on the medical surgical floor. Disposition is assigned observation. Patient is in stable condition. History & Record Review Discussion w/independent historian: Patient Additional record(s) reviewed:: Prior ED visit Lab Data Attestation: I reviewed the patient's lab results. Labs: Laboratory Results - last 24 hr 06/15/25 19:35 WBC 12.8 H RBC 5.13 Hgb 14.5 Hct 44.1 MCV 86.0 MCH 28.3 MCHC 32.9 RDW Std Deviation 48.4 H RDW Coeff of [place] 15.6 H Plt Count 201 MPV 10.8 Immature Gran % (Auto) 1.000 H Neut % (Auto) 70.0 Lymph % (Auto) 20.1 [place] % (Auto) 7.1 Eos % (Auto) 1.0 Baso % (Auto) 0.8 Absolute Neuts (auto) 9.0 H Absolute Lymphs (auto) 2.58 Nucleated RBC % 0 Sodium 141 Potassium 4.5 Chloride 105 Carbon Dioxide 25.6 Anion Gap 10 BUN 17 Creatinine 0.56 L Estim Creat Clear Calc 247.60 Est GFR (MDRD) Non-Af 127 BUN/Creatinine Ratio 30.9 H Glucose 173 H Calcium 8.9 Total Bilirubin 0.37 AST 18 ALT 24 Alkaline Phosphatase 98 Total Protein 7.6 Albumin 4.0 Globulin 3.6 Albumin/Globulin Ratio 1.1 Radiography Diagnostic Testing: Clinical Impression(s) from Imaging Studies Lower Extremity CT 06/15/25 15:06 IMPRESSION: Severe left hip osteoarthrosis with small joint effusion. Reading Location: [facility] Management Discussion w/another healthcare provider: Hospitalist (Dr. Eisenberg) Discharge Plan Dx/Rx/DC Orders Clinical Impression: Intractable pain, 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, Obesity Disposition Disposition: Acute Care Hospital [facility]
[2025-06-15] MEDS: HYDROcodone Bitartrate/Apap 5/325 Tablet PO (17:13)
[2025-06-15 18:48] VITALS: BP 135/103; PULSE 98; RESP 20; O2SAT 95
[2025-06-15 19:40] LABS: Hematocrit 44.1 % (40-54); Hemoglobin 14.5 g/dL (13.0-16.5); Immature Granulocytes Count 0.130 X10^3/uL (0.0-0.0); Mean Corp Hgb Conc 32.9 g/dL (32-36); Mean Corpuscular Volume 86.0 fL (80-94); Mean Platelet Vol. 10.8 fl (6.2-12.0); NRBC Flagged by Analyzer 0 % (0-5); Platelet Count 201 K/mm3 (150-450); RBC Distribution Width CV 15.6 % (11.6-14.6); RBC Distribution Width SD 48.4 fl (35.1-43.9); Red Blood Count 5.13 M/mm3 (4.6-6.2); White Blood Count 12.8 K/mm3 (4.4-11.0)
[2025-06-15 20:10] LABS: AST(SGOT) 18 U/L (<=37); Alanine Aminotransfer ALT/SGPT 24 U/L (<=46); Albumin, Serum 4.0 g/dL (3.5-5.0); Alkaline Phosphatase 98 U/L (40-129); Anion Gap 10 (5-15); BUN 17 mg/dL (4-19); BUN/Creat Ratio 30.9 RATIO (10-20); Calcium,Total 8.9 mg/dL (7.6-11.0); Carbon Dioxide 25.6 mmol/L (21.0-32.0); Chloride 105 mmol/L (98-108); Globulin 3.6 g/dL (2.2-4.2); Glucose 173 mg/dL (70-99); Potassium 4.5 mmol/L (3.3-5.1)
[2025-06-15 21:04] VITALS: BP 146/90; PULSE 78; RESP 16; TEMP 36.6; O2SAT 94
--- NOTE | 2025-06-15 21:09 | HP.PCM.HOS_ITS ---
[facility] - General General Date of Admission: 06/15/25 Date of Service: 06/15/25 Chief Complaint: Uncontrolled Left Hip Pain with Inability to Ambulate. HPI Narrative DONNA PIMENTEL, is a 40 M with a past medical history of essential hypertension; on nebivolol and furosemide BID, hyperlipidemia; on rosuvastatin, super-morbid (class III) obesity; with BMI of 61.8 this admission on tirzepatide, ROBERT; on BiPAP, DM-2; of unknown control on regular insulin, history of asthma; on budesonide BID plus montelukast, history of cerebral palsy; s/p ADMINISTRATIVE OPERATIONS COORDINATOR shunt ~2 weeks after , seizure disorder (last seizure ~2014); on levetiracetam, RLS, history of vertigo, history of depression; not on current treatment, history of gout; on allopurinol BID and colchicine prn, muscle spasms; on baclofen BID, GERD; on pantoprazole and OA; with chronic Left hip dysplasia/pain with a bone fragment that may be protruding in to the soft tissue causing him to sometimes use a wheelchair to mobilize with recent cortisol injection in the Left hip by Dr. Alexis of pain management yesterday, also on celecoxib plus prn hydrocodone who presents to [facility] ER complaining of uncontrolled Left hip pain with inability to ambulate. Mr. Pimentel reports his acute symptoms began shortly after his recent cortisol injection in the Left hip when today he noticed increased pain with weightbearing radiating in to his Left groin causing him to be unable to ambulate. He then contacted Dr. Alexis and was called in a prescription for hydrocodone but he states he was unable to take it so he decided to come in for further evaluation and treatment. He denies recent fall or injury. He informed the ER physician his orthopedic surgeon / Dr. Guadalupe in [place], [place] has been apparently been justifiably hesitant to proceed with surgery due to concerns surrounding his excess weight and multiple comorbidities. There was no report of fever, chills, runny nose, sore throat, ear pain, chest pain, palpitations, heart racing, LE edema, abdominal pain, nausea, vomiting, diarrhea, constipation, dysuria, hematuria, headache or rash. In the ER he underwent LLE CT that revealed severe Left hip osteoarthritis with small joint effusion with Leukocytosis of 12.8K thought to be due to recent steroid administration complicated by Intractable Left Hip Pain with Ambulatory Dysfunction and he was then admitted to the general medical floor under observation status for a stay that is expected to be less than 2 midnights. [facility] Medical History Wears glasses Alcohol use Arthritis Uses wheelchair High cholesterol Restless legs Seizures History of edema BiPAP (biphasic positive airway pressure) dependence On home oxygen therapy ROBERT treated with BiPAP Cerebral palsy Anxiety Chronic cough Diabetes Non-smoker History of echocardiogram History of stress test 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 Seizure disorder Depression Hypertension History of bronchitis History of pneumonia GERD (gastroesophageal reflux disease) Chest pain Vertigo Super obesity Bronchial asthma Gout Type II diabetes mellitus History of cerebral palsy Obstructive sleep apnea Benign hypertension Home Medications Medication Instructions Recorded Last Taken Type baclofen 20 mg tablet 20 mg PO Q12H muscle spasms 06/25/18 06/15/25 History pantoprazole 40 mg tablet,delayed 40 mg PO DAILY gi 06/15/25 History release furosemide 20 mg tablet 40 mg PO BID diuretic 06/13/25 History colchicine 0.6 mg tablet 0.6 mg PO PRN gout 12/02/21 08/22/24 History albuterol sulfate 2.5 mg/3 mL 2.5 mg (3 mL) inhalation Q4H PRN 01/05/23 Unknown Rx (0.083 %) solution for nebulization shortness of breat h or wheezing #180 mL albuterol sulfate 90 mcg/actuation 2 inh inhalation Q4 H PRN PRN Sob 01/05/23 Unknown Rx aerosol inhaler &/Or Wheezing #8.5 grams montelukast 10 mg tablet 10 mg PO DAILY allergies #90 tabs 01/05/23 06/15/25 Rx spacer #1 ea 01/05/23 Unknown Rx potassium citrate 10 mEq (1,080 10 meq PO DAILY 06/15/25 History mg) tablet,extended release allopurinol 300 mg tablet 300 mg PO BID gout 12/19/24 06/15/25 History 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,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,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 #1 ea 12/19/24 Unknown Rx (FreeStyle Nancy 3 Condon) celecoxib 200 mg capsule 200 mg PO DAILY 12/19/24 History rosuvastatin 5 mg tablet 5 mg PO QDAY #30 tabs 06/14/25 Rx budesonide-formoterol HFA 160 2 inh inhalation BID #1 ea 01/23/25 06/15/25 Rx mcg-4.5 mcg/actuation aerosol inhaler (Symbicort) levetiracetam 500 mg tablet 500 mg PO BID seizures 10/1806/15/25 History nebivolol 10 mg tablet 10 mg PO DAILY heart 5 06/15/25 History 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 sensor (FreeStyle #2 ea 02/06/25 Unknown Rx Nancy 3 Plus Sensor device) insulin regular hum U-500 conc 500 See Rx Instructions subcut TIDWMEAL 06/01/25 06/13/25 History unit/mL(3 mL) subcut pen (Humulin R U-500 (Conc) Insulin Kwikpen) tirzepatide 5 mg/0.5 mL 5 mg subcut .tuesdays06/13/25 History subcutaneous pen injector (Mounjaro) Allergy/AdvReac Type Severity Reaction Status Date / Time duloxetine Allergy Severe Other Verified 06/15/25 14:52 animal dander Allergy Chest Verified 06/15/25 14:52 tightness grass pollen Allergy Other Verified 06/15/25 14:52 house dust Allergy Other Verified 06/15/25 14:52 pollen extracts Allergy Other Verified 06/15/25 14:52 Family History Father Chronic a-fib CVA (cerebral vascular accident) Mother ROBERT (obstructive sleep apnea) Breast cancer Grandfather Cancer bladder Other Diabetes Hypertension Thyroid disorder Surgical History History of surgery History of surgery H/O hernia repair H/O eye surgery S/P ADMINISTRATIVE OPERATIONS COORDINATOR shunt Social History household members: spouse Smoking Status: Never smoker ROS ROS Narrative Review of Systems: Constitutional: Patient denies fever or chills. Eyes: Patient denies changes in vision or discharge from eyes. ENT: Patient denies runny nose, sore throat or ear pain. Resp: Patient denies SOB or worsening of his chronic cough. CV: Patient denies chest pain, palpitations, heart racing or LE edema. GI: Patient denies abdominal pain, nausea, vomiting, diarrhea or constipation. : Patient denies dysuria or hematuria. MSK: Patient admits to severe pain in Left hip radiating to groin with inability to ambulate. Skin: Patient denies rash. Psych: Patient denies symptoms of uncontrolled depression or anxiety. Neuro: Patient admits to inability to ambulate due to Left hip pain but he denies headache or other neurologic symptoms. Allergy: Patient denies lip swelling, tongue swelling or urticaria. Hematology: Patient denies easy bleeding or easy bruisability. Endocrinology: Patient denies polyuria, polydipsia, polyphagia or heat/cold intolerance. 14 point ROS otherwise negative except for positives noted above in HPI. Vital Signs Vital Signs Vital Signs: 06/15/25 14:48 06/15/25 18:48 06/15/25 21:04 Temperature 98.2 F 97.9 F Temperature Source Oral Pulse Rate 99 98 78 Respiratory Rate 14 20 H 16 Blood Pressure 134/88 H 135/103 H 146/90 H Blood Pressure Mean 103 113 108 Pulse Ox 97 95 94 Oxygen Delivery Method Room Air Weight Weight: 360 lb 0.238 oz Body Mass Index (BMI) 61.7 Physical Exam Const alert, oriented x3 and no apparent distress Constitutional Narrative: Super morbid obesity with nontoxic appearance. General Appearance: cooperative HEENT normocephalic, head/scalp atraumatic, hearing grossly normal bilaterally and moist oral mucous membranes Eyes PERRL, EOMs intact bilaterally and conjunctivae normal Neck no lymphadenopathy, supple and no JVD Resp normal respiratory effort, no retractions, no use of accessory muscles and clear to auscultation bilaterally Cardio regular rate and regular rhythm GI normal to inspection, nondistended, normoactive bowel sounds, soft to palpation, non-tender and non-distended GI Narrative: Obese. Extremity Extremity Narrative: Decreased ROM at Left hip with patient unable to bear weight or ambulate at this time. Skin Skin Narrative: Patient has no evidence of rash. Neuro oriented x3, CN's II-XII intact bilaterally, moves all extremities and no focal motor deficits Sensorium / Orientation: awake, alert, oriented to person, oriented to place and oriented to time Speech: speech normal Psych affect normal Results Medical Records Data Attestation: I reviewed the patient's medical records Lab / Micro Data Attestation: I reviewed the patient's lab results. 06/16/25 04:52 06/16/25 04:52 Labs: Laboratory Results - last 24 hr 06/15/25 19:35: WBC 12.8 H, RBC 5.13, Hgb 14.5, Hct 44.1, MCV 86.0, MCH 28.3, MCHC 32.9, RDW Std Deviation 48.4 H, RDW Coeff of Kusum 15.6 H, Plt Count 201, MPV 10.8, Immature Gran % (Auto) 1.000 H, Neut % (Auto) 70.0, Lymph % (Auto) 20.1, Calvert % (Auto) 7.1, Eos % (Auto) 1.0, Baso % (Auto) 0.8, Absolute Neuts (auto) 9.0 H, Absolute Lymphs (auto) 2.58, Nucleated RBC % 0, Sodium 141, Potassium 4.5, Chloride 105, Carbon Dioxide 25.6, Anion Gap 10, BUN 17, Creatinine 0.56 L, Estim Creat Clear Calc 247.60, Est GFR (MDRD) Non-Af 127, BUN/Creatinine Ratio 30.9 H, Glucose 173 H, Calcium 8.9, Total Bilirubin 0.37, AST 18, ALT 24, Alkaline Phosphatase 98, Total Protein 7.6, Albumin 4.0, Globulin 3.6, Albumin/Globulin Ratio 1.1 Imaging Radiology Impression Lower Extremity CT 06/15/25 15:06 IMPRESSION: Severe left hip osteoarthrosis with small joint effusion. Reading Location: [facility] Assessment & Plan Assessment/Plan (1) Intractable pain: (2) Inability to ambulate due to left hip: (3) 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: (4) Leukocytosis: QUALIFIERS: Leukocytosis type: unspecified Qualified Code(s): D 72.829 - Elevated white blood cell count, unspecified (5) Morbid obesity with BMI of 60.0-69.9, adult: (6) Hyperglycemia due to type 2 diabetes mellitus: QUALIFIERS: Diabetes mellitus skilled nursing insulin use: with skilled nursing use Qualified Code(s): E11.65 - Type 2 diabetes mellitus with hyperglycemia; 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 Intractable Left Hip Pain with Ambulatory Dysfunction with LLE CT that revealed severe Left hip osteoarthritis with small joint effusion with Leukocytosis of 12.8K thought to be due to recent steroid administration - Admit to general medical floor under observation status. Give acetaminophen prn for [id number] (level 1-5/10) pain or fever. Give hydromorphone IV prn for severe (level 6-10/10) pain. Finally, we will consult PT/OT and Case Management to see this patient on-rounds in the AM for further recommendations with help appreciated in advance. 2. OA; with chronic Left hip dysplasia/pain with a bone fragment that may be protruding in to the soft tissue causing him to sometimes use a wheelchair to mobilize with recent cortisol injection in the Left hip by Dr. Alexis of pain management yesterday, also on celecoxib plus prn hydrocodone complicating #1 - Noted. Patient will need to follow up with his orthopedic surgeon if conservative management with PT/OT and analgesics are not effective in controlling his symptoms. 3. Super-morbid (class III) obesity; with BMI of 61.8 this admission on tirzepatide plus ROBERT; on BIPAP adding to the burden of disease outlined in #1 & #2 - Weight loss will be recommended. Check TSH. This complicates his case and may hamper recovery. 4. DM-2; of unknown control on regular insulin - ADA diet plus FSBS q. AC/HS with SSI. Check HgbA1c to objectively assess quality of diabetic control with hyperglycemia of 173 mg/dL present on admission. 5. Essential hypertension; on nebivolol and furosemide BID - Maintain current therapy plus give prn IV hydralazine for systolic blood pressure > 160 mmHg. 6. Hyperlipidemia; on rosuvastatin - Hold statin with muscle weakness and soreness and monitor for improvement. 7. History of asthma; on budesonide BID plus montelukast - Stable with no evidence of acute flare at this time. 8. History of cerebral palsy; s/p ADMINISTRATIVE OPERATIONS COORDINATOR shunt ~2 weeks after - Noted. 9. Seizure disorder (last seizure ~2014); on levetiracetam - Resume current therapy. 10. RLS - Stable. 11. History of vertigo - Give meclizine prn if vertigo symptoms recur. 12. History of depression; not on current treatment - Stable. 13. History of gout; on allopurinol BID and colchicine prn - Stable with no evidence of acute flare. Maintain home regimen. 14. Muscle spasms; on baclofen BID - Continue baclofen as previous. 15. GERD; on pantoprazole - Maintain PPI. 16. DVT prophylaxis - Enoxaparin 40 mg sq BID plus SCD's. Total time: Approximately (but not less than) 70 minutes. Charges/Coding Visit Charges OBSV E&M: 33901 Observ/hosp same date L2
--- OUTSIDE RECORDS SUMMARY | 2025-06-15 22:08 | XMS RPT_ITS | CCD ---
Author Organization [facility] CliniSyct Care Team Providers Care Gelatin Dynamite Packing Operator Name Role Phone ALIZA ROMAN Primary Care Physician Dr. Aliza Roman Primary Care Provider [phone] Dr. Aliza Roman Referring Provider Dr. Kenneth Gaytan Attending Provider GUICHO Gonzalez Attending Provider Dr. Bruce Victor Attending Provider [phone] Aliza Roman Primary Care Provider [phone] Dr. Aliza Roman Referring Provider Myrna GRANT OFFICER, GRANT OFFICER-C Dania Attending Provider Dr. Aliza Roman Primary Care Provider [phone] Dr. Aliza Roman Referring Provider Myrna GRANT OFFICER, GRANT OFFICER-C Dania Attending Provider [phone] GUICHO oGnzalez Attending Provider Dr. Aliza Roman Primary Care Provider [phone] Dr. Aliza Roman Referring Provider Dr. Kenneth Gaytan Attending Provider MD Denny Santos Attending Provider Denny Stevens MD Primary Care Provider [phone] Denny Santos MD Unavailable Dr. Aliza Roman Primary Care Provider [phone] Dr. Aliza Roman Referring Provider [phone] Kenneth Gaytan Attending Provider MD [phone] Dr. Aliza Roman Referring Provider [phone] Myrna GRANT OFFICER, GRANT OFFICER-C Dania Attending Provider ALIZA ROMAN Primary Care Physician MARGARETTE ARELLANO-KAILA VALENTINE Attending Unavail able ALIZA ROMAN Primary Care Unavailable MARGARETTE ARELLANO-METEOROLOGICAL OBSERVERKAILA Attending Unavail able ALIZA ROMAN Primary Care Unavailable Dr. Aliza Roman MD Primary Care Provider [phone] Dr. Carlos Ibarra MD Attending Provider [phone] Dr. Carlos Ibarra MD Referring Provider Dr. Aliza Roman MD Attending Provider [phone] Aliza Roman MD Referring Provider [phone] Madhu Page DO Referring Provider [phone] Madhu Page DO Emergency Provider Dr. Aliza Roman MD Primary Care Provider Dr. Carlos Ibarra MD Attending Provider Dr. Carlos Ibarra MD Referring Provider [phone] Dr. Aliza Roman MD Attending Provider [phone] Dr. Aliza Roman MD Referring Provider [phone] Dr. Madhu Page DO Attending Provider [phone] Madhu Referring Provider Camilo GIVENS, Dr. Leung Emergency Provider Reji GONZALEZ, Dr. Mamadou Maradiaga Attending Provider Denisse GIVENS, Dr. Pereyra Referring Provider Andrea GIVENS, Dr. Arauz Emergency Provider [phone] Jessie GONZALEZ, Dr. Abrams Primary Care Provider Dr. Davonte Mendez DO Attending Provider Karan GRANT OFFICER-CLesvia Attending Provider Fred GONZALEZ, Dr. Gonzalez Attending Provider Fred GONZALEZ, Dr. Gonzalez Referring Provider Jessie GONZALEZ, Dr. Abrams Primary Care Provider Jessie GONZALEZ, Dr. Abrams Referring Provider Myrna GRANT OFFICER-CDania Attending Provider Jessie GONZALEZ, Dr. Abrams Primary Care Provider Jessie GONZALEZ, Dr. Abrams Referring Provider Karan GRANT OFFICER-CLesvia Attending Provider Alex GONZALEZ, Dr. Erickson Emergency Provider Bobby Mas Attending Unavailable Bobby Mas Referring [...] Attending Unavailable Miedel, Aliza Primary Care Unavailable [facility], Aliza Primary Care Unavailable Carlos Ibarra Referring Unavailable Carlos Ibarra Attending Unavailable Caedel, Aliza Primary Care Unavailable Dania Norris NP Attending Unavailable Miedel, Aliza Referring Unavailable Miedel, Aliza Primary Care Unavailable Lesvia Russo Attending Unavailable Miedel, Aliza Referring Unavailable Miedel, Aliza Primary Care Unavailable Lesvia Russo Attending Unavailable Miedel, Aliza Referring Unavailable Miedel, Aliza Primary Care Unavailable Madhu Page Attending Unavailable Madhu Page Referring Unavailable Flaco Guadalupe MD Unavailable Unavailable Allergies Allergy Classification Reported Allergen(s) Allergy Type Date of Onset Reaction(s) Facility DULoxetine (1 source) DULoxetine; Translations: [duloxetine] Drug Allergy Seizure (finding) [facility] (1 source) Dust Allergy to substance 2 SNEEZING, COUGHING [facility] Work Phone: (1 source) Pollen Allergy to substance 2 SNEEZING, COUGHING [facility] Work Phone: (1 source) grass Allergy to substance 2 SNEEZING, COUGHING [facility] Work Phone: (15 sources) Grass pollen; Translations: [grass pollen] Allergy to substance 2 Other [facility] Comment on above: SNEEZING, COUGHING (14 sources) house dust allergenic extract Drug Allergy 2 [facility] Comment on above: SNEEZING, COUGHING (14 sources) Pollen Allergy to substance 2 [facility] Comment on above: SNEEZING, COUGHING (1 source) bird dander Allergy to substance 2 Chest tightness [facility] Work Phone: (14 sources) animal dander; Translations: [animal dander] Allergy to substance 3 Chest tightness [facility] Comment on above: bird dander (6 sources) Seasonal allergy; Translations: [SEASONAL ALLERGIES] Allergy to substance 1 Other: See Comments [facility] Work Phone: (1 source) DULoxetine; Translations: [duloxetine] Drug Allergy Seizure (finding) [facility] (1 source) DULoxetine Drug Allergy [facility] Repository (1 source) house dust allergenic extract Drug Allergy [facility] Repository (1 source) Pollen Drug allergy (disorder) [facility] Repository Medications Current Medications Medication Drug Class(es) [...] hip Type 2 diabetes mellitus with hyperglycemia terminal make up operator (current) use of insulin Start: 12-18-2023 End: [...] January 30, 2023 February 04, 2023 12:05am [id number] 200 actuat albuterol 0.09 mg/actuat metered dose [...] 2024 12:00am 1 sensor 15 q days Blood-Glucose,[employer] ([employer] [place] [address] [place]) misc (4 sources) Start: 12-19-2024 Blood-Glucose,[employer] ([employer] [place]) misc Active 0 .Route 1 0 December 19, 2024 12:00am Type 2 diabetes mellitus Type 2 diabetes mellitus without complications As directed Start: 12-19-2024 Blood-Glucose, [employer] ([employer] [place]) misc Active 0 .Route 1 December 19, [...] Active 2 PUFF INHALATION TWICE A DAY November 07, 2020 12:00am administer with spacer, [...] A DAY 20 0 May 02, 2022 12:00am January 05, 2023 [...] 2023 2:03pm Start: 07-23-2023 End: 11-23-2023 Ipratropium [place] 21 mcg ( 0.03 %) spray,non-aerosol Discontinued 2 NMA INTRANASAL TWICE A DAY July 23, 2023 1:00am November 23, 2023 2:04pm Start: 07-23-2023 End: 11-23-2023 Ipratropium [place] Disconti nued 2 SPRAY INTRANASAL TWICE A [...] 01-05-2023 spacer Active 0 .ROUTE .MEDSUPPLY 1 0 January 05, 2023 12:00am As directed Start: 01-05-2023 spacer Active 0 .ROUTE .MEDSUPPLY January 04, 2023 11:00pm As directed Start: 01-05-2023 spacer Active 0 .ROUTE .MEDSUPPLY January 05, 2023 12:00am As directed Tirzepatide (Mounjaro) 5 mg/ 0.5 mL pen injector (2 sources) Start: 02-06-2025 Tirzepatide (M ounjaro) 5 mg/0.5 mL pen injector Active 5 mg SC EVERY WEEK 2 3 February 06, 2025 12:00am Type 2 diabetes mellitus Type 2 diabetes mellitus with hyperglycemia terminal make 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 (current) use of insulin Start: 02-06-2025 Tirzepatide (M shelbyjaro) 5 mg/0.5 mL pen injector Active 5 [...] 2024 12:00am December 19, 2024 2:36pm Ipratropium [place] 21 mcg (0.03 %) spray,non-aerosol (6 sources) Start: 11-23-2023 End: 12-19-2024 Ipratropium [place] 21 mcg (0.03 %) spray,non-aerosol Discontinued 2 NMA INTRANASAL TWICE A DAY 30 November 23, 2023 2:03pm December 19, 2024 1:31pm Start: 11-23-2023 End: 12-19-2024 Ipratropium [place] 21 mcg ( 0.03 %) spray,non-aerosol Discontinued [...] Discontinued 500 mg PO TWICE A DAY 14 April 13, 2020 12:00am April 14, 2020 [...] Discontinued 2.5 mg SC EVERY WEEK 2 5 December 19, 2024 12:00am February 06, 2025 [...] Translations: [Chest pain, unspecified] 04-14-2020 Episodic Osteoarthritis (20 sources) 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; Translations: [Unilateral osteoarthritis resulting from hip dysplasia, left hip] Onset: 5 08-31-2023 Chronic Other congenital anomalies (6 sources) Other specified congenital deformities of hip; [...] hypoventilation] 10-17-2021 Chronic Comment on above: BiPAP centimet ers of water Other nutritional; endocrine; [...] Da te Episodic/Chronic Other aftercare (1 source) long-term (current) use of insulin; Translations: [long-term (current) use of insulin] Onset: 02-06-2025 Episodic [...] Test Name Value Interpretation Reference Range Facility Bedside Glucoseon 06-12-2025 FINGERSTICK GLU 112 mg/dL High 74-106 [facility] Comment on above: Result Comment: TIN BESS OF PATIENT CARE PER NURSING PROTOCOL Performed By: #### L 501.080 ####[facility] [address] [facility]. [place], [place], [address] Fluoro Guided Needle Placeme nton 06-12-2025 Fluoro Guided Needle Placement [facility] Imaging Services [address] [place], [place] [address] Fluoro Guided Needle Placement MR#: [id number] Acct: [id number] Name: DONNA RODRIGES Rep #: [id number] : 1985 M 40 From: Donaldo powell MD PCP: Dr. Aliza Roman MD Status: [facility] Study: Fluoro Guided Needle Placement Date of Exam: Exam# [id number] Ordering Dr: Carlos Ibarra MD PROCEDURE: FLUORO GUIDED NEEDLE PLACEMENT 06/12/2025 REASON FOR EXAM: HIP INJECTION LEFT TECHNIQUE: Procedure Code: RADFGN Modality: DX Procedure: FLUORO GUIDED NEEDLE PLACEMENT. Radiation dose: 2.1 mGy. Fluoroscopy: 5.2 seconds. 2 images were submitted. Intraoperative fluoroscopic services provided for left hip injection. COMPARISON: None FINDINGS: Intraoperative fluoroscopic services provided for left hip injection. RAD/Fluoro Guided Needle Placement IMPRESSION: Intraoperative fluoroscopic services provided for left hip injection. Reading Location: [place] [address] CC: Dr. Aliza Roman MD; Dr. Carlos Ibarra MD Pallet Stone Positioner: Signed [facility] MR/POSTOP.ANEon 06-12-2025 MR/POSTOP.[facility] Medical Records Department [address] [place] [address] Anesthesia Postop Eval I 06/12/25 0856 MR#: [id number] Acct: [id number] Name: DONNA RODRIGES Rep #: [id number] : 1985 40 From: Diane Lee CRNA PCP: Dr. Aliza Roman MD Status:[facility] Y Race: C Location: [address] Anesthesia: Postop Eval I Current Vital Signs Temperature: 98 F Pulse Rate: 98 Blood Pressure: 142/78 Respiratory Rate: 18 Pulse Ox: 99 Assessment Airway patent: Yes Spontaneous unlabored respirations: Yes nausea: No Vomiting: No Anesthesia Complication: No Fluid Hydration Crystalloid volume administer (ml): 100 Total IV fluid infused: 100 Progress Note Anesthesia document: Postop Eval 1 completed: Yes 06/12/25 0857 Date Diane Sirca CHANGE MANAGEMENT LEAD Cosigner Signature: Date CC: Signed [facility] MR/[id number] 06-12-2025 MR/POSTOPAN2 [facility] Medical Records Department [address] [place] [address] Anesthesia Postop Eval II 06/12/25 1205 MR#: [id number] Acct: [id number] Name: DONNA RODRIGES Rep #: [id number] : 1985 40 From: Sridhar Cardozo MD PCP: Dr. Aliza Roman MD Status:[facility] Y Race: C Location: [facility] Anesthesia Postop Eval I Sum Postop Eval Completion status Anesthesia document: Postop Eval 1 completed: Yes Anesthesia Postop Eval I Summary Anesthesia Postop Eval I Summary: Anesthesia Postop Eval I: Assessment Summary Airway patent Yes 06/12/25 08:56 CHANGE MANAGEMENT LEAD.CSIR Spontaneous unlabored Yes 06/12/25 08:56 CHANGE MANAGEMENT LEAD.CSIR respirations Mental status nausea No 06/12/25 08:56 CHANGE MANAGEMENT LEAD.CSIR Vomiting No 06/12/25 08:56 CHANGE MANAGEMENT LEAD.CSIR Anesthesia Postop Eval I: Fluid Summary Crystalloid volume administer 100 06/12/25 08:56 CHANGE MANAGEMENT LEAD.CSIR (ml) Colloids volume administered ( ml) Blood Product volume administered (ml) Total IV fluid infused 100 06/12/25 08:56 CHANGE MANAGEMENT LEAD.CSIR Anesthesia Postop Eval I: Summary Notes Anesthesia Complication No 06/12/25 08:56 CHANGE MANAGEMENT LEAD.CSIR Anesthesia Complication Comment: Post-operative progress note Anesthesia: Postop Eval II Evaluation Mental status: Awake Pain Level: 2 nausea: No Vomiting: No 06/12/25 1205 Date Sridhar Puentes Signature: Date CC: Signed Normal [facility] Operative Reporton [address] [facility] Medical Records Department [address] [place] [address] Operative Report 06/12/25 0857 MR#: [id number] Acct: [id number] Name: DONNA RODRIGES Rep #: [id number] : 1985 40 From: Carlos Ibarra MD PCP: Dr. Aliza Roman MD Status:[facility] Location: [place] [address] Operative Report (Standard) Operative Information Date of Procedure: 06/12/25 Pre-Operative Diagnosis: Osteoarthritis of the left hip Post-Operative Diagnosis: Osteoarthritis of the left hip Surgery/Procedure Performed: Left hip intraarticular steroid injection under fluoroscopy guidance. envelope adjuster: No Type of Anesthesia: Local MAC RN Documented Start/Stop Times: Operation Date: 06/12/25 08:40 Case Time Into Pre-Op 06/12/25 07:01 Anesthesia Start 06/12/25 08:41 Into Room 06/12/25 08:41 Procedure End 06/12/25 08:53 Procedure Start Time: 08:57 Procedure Stop Time: 08:57 Select all DRAINS/GRAFTS/IMPLANTS that apply: None Estimated [...] well. ASSESSMENT AND PLAN: This is a 40-year-old male with osteoarthritis of the left hip status post left hip intra-articular steroid injection under fluoroscopic guidance, patient will continue his current medications, patient will follow up in approximately 2 weeks for reevaluation. Surgical Findings: 0 Complications Complications: No Admit VTE Documentation VTE Present on Admission: No VTE Mechan Device Prophylaxis: None VTE Pharm Prophylaxis ordered?: No 06/12/25 0858 Cosigner Signature (if applicable): CC: Dr. Aliza Roman MD; Dr. Carlos Ibarra MD Signed Normal [facility] Absolute lymphocyte countOrd ered By: [facility] on 04-23-2025 Lymphocytes Auto (Unsp spec) [#/Vol] 2.44 10*3/uL 0.83-4.51 [facility] Absolute neutrophil countOrd ered By: [facility] on 04-23-2025 Neutrophils (Bld) [#/Vol] 6.3 10*3/uL 2.0-7.7 [facility] Anion gap in Serum or Plasma Ordered By: [facility] on 04-23-2025 Anion gap [Moles/Vol] 13 mmol/L 5- [facility] Automated lymphocyte count a s percentage of total leukocytesOrdered By: [facility] on 04-23-2025 Lymphocytes/100 WBC Auto (Unsp spec) 24.9 % - [facility] BUN/creatinine ratioOrdered By: [facility] on 04-23-2025 Urea nitrogen/Creatinine [Mass ratio] 20.1 mg/mg High 06-12 [facility] Basic Metabolic Profile (BMP )on 04-23-2025 BUN/CRE 20.1 RATIO High [facility] Comment on above: Performed By: #### L 500.2500, L100.0100, L101.9900 #### [facility] Laboratory [address] [place], [address] Calcium [Mass/Vol] 8.9 mg/dL Normal 7.6-11.0 [facility] Comment on above: Performed By: #### L 500.2500, L100.0100, L101.9900 #### [facility] [address] [place], [address] Chloride [Moles/Vol] 105 mmol/L Normal 98-108 [facility] Comment on above: Performed By: #### L 500.2500, L100.0100, L101.9900 #### [facility] [address] [place], [address] CO2 [Moles/Vol] 25.1 mmol/L Normal 21.0-32.0 [facility] Comment on above: Performed By: #### L 500.2500, L100.0100, L101.9900 #### [facility] [address] [place], [address] Creatinine [Mass/Vol] 0.60 mg/dL Low 0.70-1.20 [facility] Comment on above: Performed By: #### L 500.2500, L100.0100, L101.9900 #### [facility] [address] [place], [address] ECRCL 227.69 ml/min Normal 50-250 [facility] Comment on above: Performed By: #### L 500.2500, L100.0100, L101.9900 #### [facility] [address] [place], [address] GAP 13 Normal 5-15 [facility] Comment on above: Performed By: #### L 500.2500, L100.0100, L101.9900 #### [facility] [address] [place], [address] GFR/1.73 sq M.predicted among non-blacks MDRD (S/P/Bld) [Vol rate/Area] 125 mL/min/{1.73_m2} Normal >60 [facility] Comment on above: Result Comment: mL/m in/1.73m2 CKD-EPI Creatinine Equation (2020) Performed By: #### L 500.2500, L100.0100, L101.9900 #### [facility] [address] [place], [address] Glucose [Mass/Vol] 195 mg/dL High 70-99 [facility] Comment on above: Performed By: #### L 500.2500, L100.0100, L101.9900 #### [facility] [address] [place], [address] Potassium [Moles/Vol] 4.0 mmol/L Normal 3.3-5.1 [facility] Comment on above: Performed By: #### L 500.2500, L100.0100, L101.9900 #### [facility] [address] [place], [address] Sodium [Moles/Vol] 143 mmol/L Normal 133-145 [facility] Comment on above: Performed By: #### L 500.2500, L100.0100, L101.9900 #### [facility] [address] [place], [address] Urea nitrogen [Mass/Vol] 12 mg/dL Normal 4-19 [facility] Comment on above: Performed By: #### L 500.2500, L100.0100, L101.9900 #### [facility] [address] [place], [address] Basophil percentageOrdered B y: Dre Johnson on 04-23-2025 Basophils/100 WBC (Bld) 0.5 % 0-1 [facility] CBC W/Diff, Automatedon 03-26 Absolute Lymph 2.44 X10 3/uL Normal 0.83-4.51 [facility] Comment on above: Performed By: #### L 500.2500, L100.0100, L101.9900 #### [facility] [address] [place], [address] Absolute Neut 6.3 X10 3/uL Normal 2.0-7.7 [facility] Comment on above: Performed By: #### L 500.2500, L100.0100, L101.9900 #### [facility] [address] [place], [address] Basophils/100 WBC (Bld) 0.5 % Normal 0-1 [facility] Comment on above: Performed By: #### L 500.2500, L100.0100, L101.9900 #### [facility] [address] [place], [address] Eosinophils/100 WBC (Bld) 3.1 % Normal 0-5 [facility] Comment on above: Performed By: #### L 500.2500, L100.0100, L101.9900 #### [facility] [address] [place], [address] Erythrocyte distribution width (RBC) [Ratio] 14.9 % High 11.6-14.6 [facility] Comment on above: Performed By: #### L 500.2500, L100.0100, L101.9900 #### [facility] [address] [place], [address] Hematocrit (Bld) [Volume fraction] 43.6 % Normal 40-54 [facility] Comment on above: Performed By: #### L 500.2500, L100.0100, L101.9900 #### [facility] [address] [place], [address] Hemoglobin (Bld) [Mass/Vol] 14.5 g/dL Normal 13.0-16.5 [facility] Comment on above: Performed By: #### L 500.2500, L100.0100, L101.9900 #### [facility] [address] [place], [address] IG% 0.900 Normal 0.0-0.9 [facility] Comment on above: Result Comment: IG% - Immature Granulocytes (promyelocytes, myelocytes and metamyelocytes) > 1% indicates that a LEFT SHIFT is Present. Performed By: #### L 500.2500, L100.0100, L101.9900 #### [facility] [address] [place], [address] Lymphocytes/100 WBC (Bld) 24.9 % Normal 19-41 [facility] Comment on above: Performed By: #### L 500.2500, L100.0100, L101.9900 #### [facility] [address] [place], [address] MCH (RBC) [Entitic mass] 28.8 pg Normal 27.0-32.0 [facility] Comment on above: Performed By: #### L 500.2500, L100.0100, L101.9900 #### [facility] [address] [place], [address] MCHC (RBC) [Mass/Vol] 33.3 g/dL Normal 32-36 [facility] Comment on above: Performed By: #### L 500.2500, L100.0100, L101.9900 #### [facility] [address] [place], [address] MCV (RBC) [Entitic vol] 86.7 fL Normal 80-94 [facility] Comment on above: Performed By: #### L 500.2500, L100.0100, L101.9900 #### [facility] [address] [place], [address] Monocytes/100 WBC (Bld) 6.6 % Normal 0-10 [facility] Comment on above: Performed By: #### L 500.2500, L100.0100, L101.9900 #### [facility] [address] [place], [address] Neutrophils/100 WBC (Bld) 64.0 % Normal 47-70 [facility] Comment on above: Performed By: #### L 500.2500, L100.0100, L101.9900 #### [facility] [address] [place], [address] Nucleated RBC (Bld) [#/Vol] 0 10*3/uL Normal 0-5 [facility] Comment on above: Performed By: #### L 500.2500, L100.0100, L101.9900 #### [facility] [address] [place], [address] Platelet mean volume (Bld) [Entitic vol] 10.7 fL Normal 6.2-12.0 [facility] Comment on above: Performed By: #### L 500.2500, L100.0100, L101.9900 #### [facility] [address] [place], [address] Platelets (Bld) [#/Vol] 206 10*3/uL Normal 150-450 [facility] Comment on above: Performed By: #### L 500.2500, L100.0100, L101.9900 #### [facility] [address] [place], [address] RBC (Bld) [#/Vol] 5.03 10*6/uL Normal 4.6-6.2 [facility] [facility] Comment on above: Performed By: #### L 500.2500, L100.0100, L101.9900 #### [facility] [address] [place], [address] RDW SD 46.8 fl High 35.1-43.9 [facility] Comment on above: Performed By: #### L 500.2500, L100.0100, L101.9900 #### [facility] [address] [place], [address] WBC (Bld) [#/Vol] 9.8 10*3/uL Normal 4.4-11.0 [facility] Comment on above: Performed By: #### L 500.2500, L100.0100, L101.9900 #### [facility] [address] [place], [address] [place] dioxide, total [Moles /volume] in Central venous bloodOrdered By: Dre Johnson on 04-23-2025 CO2 [Moles/Vol] 25.1 mmol/L 21.0-32.0 [facility] Chloride assayOrdered By: Molina Johnson on 04-23-2025 Chloride [Moles/Vol] 105 mmol/L 98-108 [facility] Emergency Department Summary on 04-23-[address] [facility] Medical Records Department [address] [place] [address] Emergency Department Summary 04/23/25 MR#: [id number] Acct: [id number] Name: DONNA RODRIGES Rep #: [id number] : 1985 39 From: Dre Johnson MD [...] joint. He was asked if he has luzm-[id number]-dbzz. He responded yes. He denies fever, chills [...] PO BID gout 12/19/24 Unknow n History 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,sternman, cont #1 ea 12/19/24 Unknown Rx (FreeStyle Nancy 3 [place]) celecoxib 200 mg capsule 200 mg PO [...] 0 02/06/25 Unknown Rx subcutaneous pen injector (Mounjaro) hydrocodone-acetaminoph en 5-325mg 1 tab PO Q6H PRN PRN Pain 5 days 04/23/25 Unknown Rx 5mg-325mg #20 TABLETS Allergy/AdvReac Type Severity Reaction Status Date / Time animal dander Allergy Chest Verified 02/06/25 13:06 tightness grass pollen Allergy Other Verified 02/06/25 13:06 house dust Allergy Other Verified 02/06/25 13:06 pollen extracts Allergy Other Verified 02/06/25 13:06 Family History Father 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 Normal [facility] Eosinophil percentageOrdered By: Dre Johnson on 04-23-2025 Eosinophils/100 WBC (Bld) 3.1 % 0-5 [facility] Erythrocyte Sed Rateon 04-23 SED RATE 37 mm/hr High 0-20 [facility] Comment on above: Performed By: #### L 500.2500, L100.0100, L101.9900 #### [facility] Laboratory [address] [place], [place], [address] Erythrocyte distribution wid th ratioOrdered By: Dre Johnson on 04-23-2025 Erythrocyte distribution width (RBC) [Ratio] 14.9 % High 11.6-14.6 [facility] Erythrocyte distribution wid th standard deviationOrdered By: Dre Johnson on 04-23-2025 Erythrocyte distribution width (RBC) [Ratio] 46.8 fl High 35.1-43.9 [facility] Erythrocyte sedimentation ra teOrdered By: Dre Johnson on 04-23-2025 ESR (Bld) [Velocity] 37 mm/h High 0-20 [facility] Glomerular filtration rate ( GFR) estimation/1.73 sq m using serum, plasma, or whole bOrdered By: Dre Johnson on 04-23-2025 GFR/1.73 sq M.predicted among non-blacks MDRD (S/P/Bld) [Vol rate/Area] 125 mL/min/{1.73_m2} >60 [facility] Comment on above: mL/min/1.73m2 CKD-EP I Creatinine Equation (2020) HIP, UNI W/ Pelvis 2-3 Views on 04-23-2025 HIP, UNI W/ Pelvis 2-3 Views [facility] Imaging Services [address] [place], [place] [address] HIP, UNI W/ Pelvis 2-3 Views MR#: [id number] Acct: [id number] Name: DONNA RODRIGES Rep #: [id number] : 1985 M 39 From: Rylan Meyer MD PCP: Dr. Aliza Roman MD Status: REG ER Study: HIP, UNI W/ Pelvis 2-3 Views Date of Exam: Exam# [id number] Ordering Dr: Dre Johnson MD PROCEDURE: HIP, [...] acetabulum in this young patient. Reading Location: [id number] CC: Dr. Aliza Roman MD; Dr. Dre Johnson MD Pallet Stone Positioner: Signed Normal [facility] Hematocrit Auto (Bld) [Volum e fraction]Ordered By: Dre Johnson on 04-23-2025 Hematocrit (Bld) [Volume fraction] 43.6 % 40-54 [facility] Hemoglobin measurementOrdere d By: Dre Johnson on 04-23-2025 Hemoglobin (Bld) [Mass/Vol] 14.5 g/dL 13.0-16.5 [facility] Immature granulocytes/100 WB C Auto (Bld)Ordered By: Dre Johnson on 04-23-2025 Immature granulocytes/100 WBC (Bld) 0.900 % 0.0-0.9 [facility] Comment on above: IG% - Immature Granu locytes (promyelocytes, myelocytes and metamyelocytes) > 1% indicates that a LEFT SHIFT is Present. MCV (mean corpuscular volume ) determinationOrdered By: Dre Johnson on 04-23-2025 MCV (RBC) [Entitic vol] 86.7 fL 80-94 [facility] Mean corpuscular hemoglobin (MCH) determinationOrdered By: Dre Johnson on 04-23-2025 MCH (RBC) [Entitic mass] 28.8 pg 27.0-32.0 [facility] Mean corpuscular hemoglobin concentration (MCHC) determinationOrdered By: Dre Johnson on 04-23-2025 MCHC (RBC) [Mass/Vol] 33.3 g/dL 32-36 [facility] Mean platelet volume determi nationOrdered By: Dre Johnson on 04-23-2025 Platelet mean volume (Bld) [Entitic vol] 10.7 fL 6.2-12.0 [facility] Monocyte percentageOrdered B y: Dremoise Madisono on 04-23-2025 Monocytes/100 WBC (Bld) 6.6 % 0-10 [facility] Neutrophil percentageOrdered By: Dre Johnson on 04-23-2025 Neutrophils/100 WBC (Bld) 64.0 % 47-70 [facility] Nucleated red blood cell per centageOrdered By: Dre Johnson on 04-23-2025 Nucleated RBC/100 WBC (Bld) [Ratio] 0 % 0-5 [facility] Platelet countOrdered By: [facility] Alex on 04-23-2025 Platelets (Bld) [#/Vol] 206 10*3/uL 150-450 [facility] Potassium measurement (mass/ volume)Ordered By: Dremoise Johnson on 04-23-2025 Potassium (Unsp spec) [Mass/Vol] 4.0 mmol/L 3.3-5.1 [facility] RBC Auto (Bld) [#/Vol]Ordere d By: Dre Johnson on 04-23-2025 RBC (Bld) [#/Vol] 5.03 10*6/uL 4.6-6.2 [facility] Serum creatinine measurement (mass/volume)Ordered By: Dre Johnson on 04-23-2025 Creatinine [Mass/Vol] 0.60 mg/dL Low 0.70-1.20 [facility] Serum glucose measurement (m ass/volume)Ordered By: Dre Johnson on 04-23-2025 Glucose [Mass/Vol] 195 mg/dL High 70-99 [facility] Serum or plasma calcium gloria urement (mass/volume)Ordered By: Dre Johnson on 04-23-2025 Calcium [Mass/Vol] 8.9 mg/dL 7.6-11.0 [facility] Serum or plasma urea nitroge n measurement (mass/volume)Ordered By: Dre Johnson on 04-23-2025 Urea nitrogen [Mass/Vol] 12 mg/dL 4-19 [facility] Sodium levelOrdered By: Dre Johnson on 04-23-2025 Sodium [Moles/Vol] 143 mmol/L 133-145 [facility] White blood cell (WBC) count Ordered By: Dre Johnson on 04-23-2025 WBC (Bld) [#/Vol] 9.8 10*3/uL 4.4-11.0 [facility] Endocrinology Visit Reporton 02-06-2025 Endocrinology Visit Report [facility] [address] [place] [address] OFFICE VISIT Date of Service: 02/06/25 MR#: [id number] Acct: [id number] Name: DONNA RODRIGES Rep #: [id number] : 1985 Provider: ROBERT munoz Age/Sex: 39/M Location: [facility] Status: Signed Intake Vital Signs 12/19/24 13:26 [...] 7 Wk FU Chief Complaint: f/u diabetes Chute Boss Required: No Accompanied by: Is patient in [...] 300 mg PO BID gout 12/19/24 History 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,sternman, cont #1 ea 12/19/24 02/06/25 Rx (FreeStyle Nancy 3 [place]) celecoxib 200 mg capsule 200 mg PO [...] 02/06/25 02/06/25 Rx subcutaneous pen injector (Moun[facility]o) [facility] Medical History ROBERT treated with BiPAP Cerebral [...] H/O hernia repair H/O eye surgery S/P NEW ACCOUNTS REPRESENTATIVE shunt Family History Father Chronic a-fib CVA [...] any significan (more content not included)... Normal [facility] Pulmonary Visit Reporton Pulmonary Visit Report [facility] [place] [address] [place], [place] [id number] OFFICE VISIT Date of Service: 01/23/25 MR#: [id number] Acct: [id number] Name: DONNA RODRIGES Rep #: [id number] : 1985 Provider: ROBERT Norris Age/Sex: 39/M Location: [facility] Status: Signed Assessment and Plan Assessment and [...] Additional Comments: This note was generated with [employer] dictation software. It may contain incorrect words, [...] exertion. He has been working with an electrician for weight loss. Recently started Mounjaro. He [...] Allergy (Verif (more content not included)... Normal [facility] Fluoro Guided Needle Placeme nton 01-09-2025 Fluoro Guided Needle Placement [facility] Imaging Services [address] [place] [address] Fluoro Guided Needle Placement MR#: [id number] Acct: [id number] Name: DONNA RODRIGES Rep #: [id number] : 1985 M 39 From: Donaldo powell MD PCP: Dr. Aliza Roman MD Status: [facility] Study: Fluoro Guided Needle Placement Date of Exam: 0 01/09/25 Exam# [id number] Ordering Dr: Carlos Ibarra MD PROCEDURE: FLUORO GUIDED NEEDLE PLACEMENT 01/09/2025 REASON FOR EXAM: INJECTION LT HIP TECHNIQUE: Intraoperative fluoroscopic services provided for left hip injection. 8.4 seconds of fluoroscopy. 2.99 mGy. 3 images were obtained. COMPARISON: None FINDINGS: Intraoperative fluoroscopic services provided for left hip injection. RAD/Fluoro Guided Needle Placement IMPRESSION: Intraoperative fluoroscopic services provided for left hip injection. Reading Location: [place] [address] CC: Dr. Aliza Roman MD; Dr. Carlos Ibarra MD Pallet Stone Positioner: Signed [facility] MR/POSTOP.[facility] 01-09-2025 MR/POSTOP.[facility] Medical Records Department [address] [place] [address] Anesthesia Postop Eval I 01/09/25 0859 MR#: [id number] Acct: [id number] Name: DONNA RODRIGES Rep #: [id number] : 1985 39 From: Ike Sanchez CRNA PCP: Dr. Aliza Roman MD Status:DEP [facility] Y Race: C Location: [facility] Anesthesia: Postop Eval I Current Vital Signs [...] completed: Yes 01/09/25 09 Date Ike Sanchez CHANGE MANAGEMENT LEAD Cosigner Signature: Date CC: Signed Normal [facility] MR/[id number] 01-09-2025 MR/POSTOPAN2 [facility] Medical Records Department [address] [place] [address] Anesthesia Postop Eval II 01/09/25908 MR#: [id number] Acct: [id number] Name: DONNA RODRIGES Rep #: [id number] : 1985 39 From: Sridhar Cardozo MD PCP: Dr. Aliza Roman MD Status:[facility] Y Race: C Location: [facility] Anesthesia Postop Eval I Sum Postop Eval Completion status Anesthesia document: Postop Eval 1 completed: Yes Anesthesia Postop Eval I Summary Anesthesia Postop Eval I Summary: Anesthesia Postop Eval I: Assessment Summary Airway patent Yes 01/09/25 09:00 CHANGE MANAGEMENT LEAD.KESHAWNU Spontaneous unlabored Yes 01/09/25 09:00 CHANGE MANAGEMENT LEAD.JBLOU respirations Mental status Awake,Calm 01/09/25 09:00 CHANGE MANAGEMENT LEAD.JBLOU nausea No 01/09/25 09:00 CHANGE MANAGEMENT LEAD.JBLOU Vomiting No 01/09/25 09:00 CHANGE MANAGEMENT LEAD.JBLOU Anesthesia Postop Eval I: Fluid Summary Crystalloid volume administer 200 01/09/25 09:00 CHANGE MANAGEMENT LEAD.JBLOU (ml) Colloids volume administered ( ml) Blood Product volume administered (ml) Total IV fluid infused 200 01/09/25 09:00 CHANGE MANAGEMENT LEAD.JBLOU Anesthesia Postop Eval I: Summary Notes Anesthesia Complication No 01/09/25 09:00 KARLA Anesthesia Complication Comment: Post-operative progress note Anesthesia: Postop Eval II Evaluation Mental status: Awake Pain Level: 2 nausea: No Vomiting: No 01/09/25 0909 Date Sridhar Puentes Signature: Date CC: Signed Normal [facility] Operative Reporton [address] [facility] Medical Records Department [address] [place] [address] Operative Report 01/09/25 0824 MR#: [id number] Acct: [id number] Name: DONNA RODRIGES Mariana Rep #: [id number] : 1985 39 From: Carlos Ibarra MD PCP: Dr. Aliza Roman MD Status:[facility] Location: [place] [address] Operative Report (Standard) Operative Information Date of Procedure: 01/09/25 Pre-Operative Diagnosis: 1 Post-Operative Diagnosis: 1 Surgery/Procedure Performed: 1 envelope adjuster: No Type of Anesthesia: Local MAC RN [...] None VTE Pharm Prophylaxis ordered?: No 01/09/25 3726 Cosigner Signature (if applicable): CC: Dr. Aliza Roman MD; Dr. aCrlos Ibarra MD Signed Normal [facility] Endocrinology Visit Reporton 12-19-2024 Endocrinology Visit Report [facility] [address] [place] [address] [address] [place] [address] OFFICE VISIT Date of Service: 12/19/24 MR#: [id number] Acct: [id number] Name: DONNA RODRIGES Rep #: [id number] : 1985 Provider: ROBERT munoz Age/Sex: 39/M Location: [facility] Status: Signed Intake Vital Signs 11/27/24 11:01 [...] ea 12/19/24 12/19/24 Rx (FreeStyle Nancy 3 [place]) 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 sensor (FreeStyle #2 ea 12/19/24 12/19/24 [...] mL 12/19/24 12/19/24 Rx subcutaneous pen injector (Ean) [facility] Medical History ROBERT treated with BiPAP Cerebral [...] H/O hernia repair H/O eye surgery S/P NEW ACCOUNTS REPRESENTATIVE shunt Family History (Updated 12/19/24 @ 13:25 [...] income an (more content not included)... Normal [facility] Laboratory - Hematology and Cell countsOrdered By: Lesvia Russo on 12-19-2024 HbA1c (Bld) [Mass fraction] 9.6 % High 4.2-6.3 [facility] 12 Lead EKGon 11-27-2024 12 Lead EKG [facility] Cardiovascular Services [address] [place] [address] 12 Lead EKG 11/27/24 1148 MR#: [id number] Acct: [id number] Name: DONNA RODRIGES Rep #: [id number] : 1985 39 From: Bruce Victor MD [...] consider inferior ischemia Abnormal ECG Confirmed by MACRY MD, BRUCE ([id number]), editorial director CATHERINE PATTERSON ([id number]) on 11/28/2024 9:15:43 AM Referred By: Confirmed By: BRUCE VICTOR MD 11/28/2415 Date Bruce Victor MD CC: Dr. Aliza Roman MD; Dr. Davonte Mendez DO; GUICHO Jarrell Signed Normal [facility] Absolute lymphocyte countOrd ered By: Krystina Hernández on 11-27-2024 Lymphocytes Auto (Unsp spec) [#/Vol] 1.95 10*3/uL 0.83-4.51 [facility] Absolute neutrophil countOrd ered By: Krystina Hernández on 11-27-2024 Neutrophils (Bld) [#/Vol] 4.9 10*3/uL 2.0-7.7 [facility] Anion gap in Serum or Plasma Ordered By: Krystina Hernández on 11-27-2024 Anion gap [Moles/Vol] 14 mmol/L 5-15 [facility] Automated lymphocyte count a s percentage of total leukocytesOrdered By: Krystina Hernández on 11-27-2024 Lymphocytes/100 WBC Auto (Unsp spec) 25.6 % 19-41 [facility] BUN/creatinine ratioOrdered By: Krystina Hernández on 11-27-2024 Urea nitrogen/Creatinine [Mass ratio] 26.2 mg/mg High 10-20 [facility] Basic Metabolic Profile (BMP )on 11-27-2024 BUN/CRE 26.2 RATIO High 06-12 [facility] Comment on above: Performed By: #### L 760.0275, L500.2500 #### [facility] Laboratory [facility] [place], [address] Calcium [Mass/Vol] 9.2 mg/dL Normal 7.6-11.0 [facility] Comment on above: Performed By: #### L 503.7505, L500.2500 #### [facility] Laboratory [address] [place], [address] Chloride [Moles/Vol] 100 mmol/L Normal 98-108 [facility] Comment on above: Performed By: #### L 503.7505, L500.2500 #### [facility] Laboratory [address] [place], [address] CO2 [Moles/Vol] 24.1 mmol/L Normal 21.0-32.0 [facility] Comment on above: Performed By: #### L 503.7505, L500.2500 #### [facility] Laboratory [address] [place], [address] Creatinine [Mass/Vol] 0.61 mg/dL Low 0.70-1.20 [facility] Comment on above: Performed By: #### L 503.7505, L500.2500 #### [facility] Laboratory [address] [place], [address] ECRCL 227.50 ml/min Normal 50-250 [facility] Comment on above: Performed By: #### L 503.7505, L500.2500 #### [facility] Laboratory [address] [place], [address] GAP 14 Normal 5-15 [facility] Comment on above: Performed By: #### L 503.7505, L500.2500 #### [facility] Laboratory [address] [place], [address] GFR/1.73 sq M.predicted among non-blacks MDRD (S/P/Bld) [Vol rate/Area] 125 mL/min/{1.73_m2} Normal >60 [facility] Comment on above: Result Comment: mL/m in/1.73m2 CKD-EPI Creatinine Equation (2020) Performed By: #### L 503.7505, L500.2500 #### [facility] Laboratory [address] [place], [address] Glucose [Mass/Vol] 303 mg/dL High 70-99 [facility] Comment on above: Performed By: #### L 503.7505, L500.2500 #### [facility] Laboratory [address] [place], [address] Potassium [Moles/Vol] 3.9 mmol/L Normal 3.3-5.1 [facility] Comment on above: Performed By: #### L 503.7505, L500.2500 #### [facility] Laboratory [address] [place], [address] Sodium [Moles/Vol] 138 mmol/L Normal 133-145 [facility] Comment on above: Performed By: #### L 503.7505, L500.2500 #### [facility] Laboratory [address] [place], [address] Urea nitrogen [Mass/Vol] 16 mg/dL Normal 4-19 [facility] Comment on above: Performed By: #### L 503.7505, L500.2500 #### [facility] Laboratory [address] [place], [address] Basophil percentageOrdered B y: Krystina Hernández on 11-27-2024 Basophils/100 WBC (Bld) 0.7 % 0-1 [facility] Brain/Head without Contrasto n 11-27-2024 Brain/Head without Contrast [facility] Imaging Services [address] [place] [address] Brain/Head without Contrast MR#: [id number] Acct: [id number] Name: LORENDONNA Mariana Rep #: [id number] : 1985 M 39 From: Asif Toledo DO PCP: Dr. Aliza Roman MD Status: REG ER Study: Brain/Head without Contrast Date of Exam: 02/15 Exam# [id number] Ordering Dr: Krystina Hernández PA PROCEDURE: BRAIN/HEAD WITHOUT CONTRAST 11/27/2024 REASON FOR EXAM: HEAD INJURY, POSSIBLE SEIZURE NEW ACCOUNTS REPRESENTATIVE shunt surgery. History of seizures TECHNIQUE: Head CT without intravenous contrast. Coronal and Sagittal reconstruction series were provided. One or more dose reduction techniques were used (e.g., Automated exposure control, adjustment of the mA and/or kV according to patient size, use of iterative reconstruction technique. RADIATION DOSE SUMMARY: CTDlvol: 44.99 mGy DLP: 796.11 mGycm COMPARISON: None. FINDINGS: Brain: Right parietal NEW ACCOUNTS REPRESENTATIVE shunt tube appears satisfactorily positioned. No ventriculomegaly. No mass, mass effect or midline shift. No intra-axial or extra-axial hemorrhage. CSF Spaces: Again NEW ACCOUNTS REPRESENTATIVE shunt tube in place. Ventricles and sulci are normal in size. Sinuses/Mastoids: Mucous retention cyst in the base of the left maxillary sinus. Mastoid air cells and remaining sinuses are clear. Bones: Unremarkable. CT/Brain/Head without Contrast IMPRESSION: No acute process detected. Reading [facility] CC: Dr. Aliza Roman MD; GUICHO Jarrell Pallet Stone Positioner: Signed Normal [facility] CBC W/Diff, Automatedon 04-0 Absolute Lymph 1.95 X10 3/uL Normal 0.83-4.51 [facility] Comment on above: Performed By: #### L 100.0100 ####[facility] [address] [place], [address] Absolute Neut 4.9 X10 3/uL Normal 2.0-7.7 [facility] Comment on above: Performed By: #### L 100.0100 ####[facility] [address] [place], [address] Basophils/100 WBC (Bld) 0.7 % Normal 0-1 [facility] Comment on above: Performed By: #### L 100.0100 ####[facility] [address] [place], [address] Eosinophils/100 WBC (Bld) 2.6 % Normal 0-5 [facility] Comment on above: Performed By: #### L 100.0100 ####[facility] [address] [place], [address] Erythrocyte distribution width (RBC) [Ratio] 15.4 % High 11.6-14.6 [facility] Comment on above: Performed By: #### L 100.0100 ####[facility] [address] [place], [address] Hematocrit (Bld) [Volume fraction] 45.3 % Normal 40-54 [facility] Comment on above: Performed By: #### L 100.0100 ####[facility] [address] [place], [address] Hemoglobin (Bld) [Mass/Vol] 15.1 g/dL Normal 13.0-16.5 [facility] Comment on above: Performed By: #### L 100.0100 ####[facility] [address] [place], [address] IG% 1.300 High 0.0-0.9 [facility] Comment on above: Result Comment: IG% - Immature Granulocytes (promyelocytes, myelocytes and metamyelocytes) > 1% indicates that a LEFT SHIFT is Present. Performed By: #### L 100.0100 ####[facility] [address] [place], [address] Lymphocytes/100 WBC (Bld) 25.6 % Normal 19-41 [facility] Comment on above: Performed By: #### L 100.0100 ####[facility] [address] [place], [address] MCH (RBC) [Entitic mass] 29.4 pg Normal 27.0-32.0 [facility] Comment on above: Performed By: #### L 100.0100 ####[facility] [address] [place], [address] MCHC (RBC) [Mass/Vol] 33.3 g/dL Normal 32-36 [facility] Comment on above: Performed By: #### L 100.0100 ####[facility] [address] [place], [address] MCV (RBC) [Entitic vol] 88.1 fL Normal 80-94 [facility] Comment on above: Performed By: #### L 100.0100 ####[facility] [address] [place], [address] Monocytes/100 WBC (Bld) 5.5 % Normal 0-10 [facility] Comment on above: Performed By: #### L 100.0100 ####[facility] [address] [place], [address] Neutrophils/100 WBC (Bld) 64.3 % Normal 47-70 [facility] Comment on above: Performed By: #### L 100.0100 ####[facility] [address] [place], [address] Nucleated RBC (Bld) [#/Vol] 0 10*3/uL Normal 0-5 [facility] Comment on above: Performed By: #### L 100.0100 ####[facility] [address] [place], [address] Platelet mean volume (Bld) [Entitic vol] 11.8 fL Normal 6.2-12.0 [facility] Comment on above: Performed By: #### L 100.0100 ####[facility] [address] [place], [address] Platelets (Bld) [#/Vol] 190 10*3/uL Normal 150-450 [facility] [facility] Comment on above: Performed By: #### L 100.0100 ####[facility] [address] [place], [address] RBC (Bld) [#/Vol] 5.14 10*6/uL Normal 4.6-6.2 [facility] Comment on above: Performed By: #### L 100.0100 ####[facility] [address] [place], [address] RDW SD 49.7 fl High 35.1-43.9 [facility] Comment on above: Performed By: #### L 100.0100 ####[facility] [address] [place], [address] WBC (Bld) [#/Vol] 7.6 10*3/uL Normal 4.4-11.0 [facility] Comment on above: Performed By: #### L 100.0100 ####[facility] [address] [place], [address] Carbon dioxide, total [Moles /volume] in Central venous bloodOrdered By: Krystina Hernández on 11-27-2024 CO2 [Moles/Vol] 24.1 mmol/L 21.0-32.0 [facility] Chloride assayOrdered By: Prema Hernández on 11-27-2024 Chloride [Moles/Vol] 100 mmol/L 98-108 [facility] Emergency Department Summary on 11-27-[address] [facility] Medical Records Department [address] [place] [address] Emergency Department Summary 11/27/24 MR#: [id number] Acct: [id number] Name: DONNA RODRIGES Rep #: [id number] : 1985 39 From: Krystina LINDO PCP: [...] has a PMH of T2DM, cerebral palsy, NEW ACCOUNTS REPRESENTATIVE shunt, obesity, HTN, and ROBERT. [facility] Medical History ROBERT treated with BiPAP Cerebral [...] Diabetes Surgica (more content not included)... Normal [facility] Eosinophil percentageOrdered By: Krystina Hernández on 11-27-2024 Eosinophils/100 WBC (Bld) 2.6 % 0-5 [facility] Erythrocyte distribution wid th (RBC) [Ratio]Ordered By: Krystina Hernández on 11-27-2024 Erythrocyte distribution width (RBC) [Entitic vol] 49.7 fL High 35.1-43.9 [facility] Erythrocyte distribution wid th ratioOrdered By: Krystina Hernández on 11-27-2024 Erythrocyte distribution width (RBC) [Ratio] 15.4 % High 11.6-14.6 [facility] Erythrocyte distribution wid th standard deviationOrdered By: Krystina Hernández on 11-27-2024 Erythrocyte distribution width (RBC) [Ratio] 49.7 fl High 35.1-43.9 [facility] Estimation of creatinine dorothy aranceOrdered By: Krystina Hernández on 11-27-2024 Estimated Creatinine Clearance Calc 227.50 ml/min 50-250 [facility] GFR/1.73 sq M.predicted supa g non-blacks MDRD (S/P/Bld) [Vol rate/Area]Ordered By: Krystina Hernández on 11-27-2024 Estimated GFR (MDRD) Non-Af Amer 125 >60 [facility] Comment on above: mL/min/1.73m2 CKD-EP I Creatinine Equation (2020) Glomerular filtration rate ( GFR) estimation/1.73 sq m using serum, plasma, or whole bOrdered By: Krystina Hernández on 11-27-2024 GFR/1.73 sq M.predicted among non-blacks MDRD (S/P/Bld) [Vol rate/Area] 125 mL/min/{1.73_m2} >60 [facility] Comment on above: mL/min/1.73m2 CKD-EP I Creatinine Equation (2020) HIP, UNI W/ Pelvis 2-3 Views on 11-27-2024 HIP, UNI W/ Pelvis 2-3 Views [facility] Imaging Services [address] [place] [address] HIP, UNI W/ Pelvis 2-3 Views MR#: [id number] Acct: [id number] Name: DONNA RODRIGES Rep #: [id number] : 1985 M 39 From: Asif Toledo DO PCP: Dr. Aliza Roman MD Status: REG ER Study: HIP, UNI W/ Pelvis 2-3 Views Date of Exam: 02/15 Exam# [id number] Ordering Dr: Krystina Hernández PROCEDURE: HIP, UNI [...] osteoarthritis of left hip. [facility] CC: Dr. Aliza Roman MD; GUICHO Jarrell Pallet Stone Positioner: Signed Normal [facility] Hematocrit Auto (Bld) [Volum e fraction]Ordered By: Krystina Hernández on 11-27-2024 Hematocrit (Bld) [Volume fraction] 45.3 % 40-54 [facility] Hemoglobin measurementOrdere d By: Krystina Hernández on 11-27-2024 Hemoglobin (Bld) [Mass/Vol] 15.1 g/dL 13.0-16.5 [facility] Immature granulocytes/100 WB C Auto (Bld)Ordered By: Krystina Hernández on 11-27-2024 Immature granulocytes/100 WBC (Bld) 1.300 % High 0.0-0.9 [facility] Comment on above: IG% - Immature Granu locytes (promyelocytes, myelocytes and metamyelocytes) > 1% indicates that a LEFT SHIFT is Present. L501.4021on 11-27-2024 Trop T High Sen 12 ng/L Normal <=22 [facility] Comment on above: Performed By: #### L 501.4021 ####[facility] [address] [place], [address] L503.7505on 11-27-2024 proBNP < 36 Normal <=450 [facility] Comment on above: Result Comment: Hear t Failure Unlikely: < 300 pg/mL Heart Failure Likely < 50 Years: > 450 pg/mL 50-75 Years: > 900 pg/mL >75 Years: > 1800 pg/mL Performed By: #### L 503.7505, L500.2500 #### [facility] Laboratory [address] [place], [address] Lymphocytes Auto (Unsp spec) [#/Vol]Ordered By: Krystina Hernández on 11-27-2024 Lymphocytes (Bld) [#/Vol] 1.95 10*3/uL 0.83-4.5 1 [facility] Lymphocytes/100 WBC Auto (Un sp spec)Ordered By: Krystina Hernández on 11-27-2024 Lymphocytes/100 WBC (Bld) 25.6 % 19-41 [facility] MCV (mean corpuscular volume ) determinationOrdered By: Krystina Hernández on 11-27-2024 MCV (RBC) [Entitic vol] 88.1 fL 80-94 [facility] Mean corpuscular hemoglobin (MCH) determinationOrdered By: Krystina Hernández on 11-27-2024 MCH (RBC) [Entitic mass] 29.4 pg 27.0-32.0 [facility] Mean corpuscular hemoglobin concentration (MCHC) determinationOrdered By: Krystina Hernández on 11-27-2024 MCHC (RBC) [Mass/Vol] 33.3 g/dL 32-36 [facility] Mean platelet volume determi nationOrdered By: Krystina Hernández on 11-27-2024 Platelet mean volume (Bld) [Entitic vol] 11.8 fL 6.2-12.0 [facility] Monocyte percentageOrdered B y: Krystina Hernández on 11-27-2024 Monocytes/100 WBC (Bld) 5.5 % 0-10 [facility] Natriuretic peptide.B prohor valentine N-Terminal [Mass/Vol]Ordered By: Krystina Hernández on 11-27-2024 LS-AwzB-Ltcs Natriuretic Peptide II < 36 pg/mL <450 [facility] Comment on above: Heart Failure Unlike ly: < 300 pg/mLHeart Failure Likely< 50 Years: > 450 pg/mL50-75 Years: > 900 pg/mL>75 Years: > 1800 pg/mL Natriuretic peptide.B prohor valentine N-Terminal [Mass/volume] in Serum or PlasmaOrdered By: Krystina Hernández on 11-27-2024 Natriuretic peptide.B prohormone N-Terminal [Mass/Vol] < 36 pg/mL <450 [facility] Comment on above: Heart Failure Unlike ly: < 300 pg/mLHeart Failure Likely< 50 Years: > 450 pg/mL50-75 Years: > 900 pg/mL>75 Years: > 1800 pg/mL Neutrophil percentageOrdered By: Krystina Hernández on 11-27-2024 Neutrophils/100 WBC (Bld) 64.3 % 47-70 [facility] Nucleated red blood cell per centageOrdered By: Krystina Hernández on 11-27-2024 Nucleated RBC/100 WBC (Bld) [Ratio] 0 % 0-5 [facility] Platelet countOrdered By: Prema Hernández on 11-27-2024 Platelets (Bld) [#/Vol] 190 10*3/uL 150-450 [facility] Potassium (Unsp spec) [Mass/ Vol]Ordered By: Krystina Hernández on 11-27-2024 Potassium [Moles/Vol] 3.9 mmol/L 3.3-5.1 [facility] Potassium measurement (mass/ volume)Ordered By: Krystina Hernández on 11-27-2024 Potassium (Unsp spec) [Mass/Vol] 3.9 mmol/L 3.3-5.1 [facility] RBC Auto (Bld) [#/Vol]Ordere d By: Krystina Hernández on 11-27-2024 RBC (Bld) [#/Vol] 5.14 10*6/uL 4.6-6.2 [facility] Serum creatinine measurement (mass/volume)Ordered By: Krystina Hernández on 11-27-2024 Creatinine [Mass/Vol] 0.61 mg/dL Low 0.70-1.20 [facility] Serum glucose measurement (m ass/volume)Ordered By: Krystina Hernández on 11-27-2024 Glucose [Mass/Vol] 303 mg/dL High 70-99 [facility] Serum or plasma calcium gloria urement (mass/volume)Ordered By: Krystina Hernández on 11-27-2024 Calcium [Mass/Vol] 9.2 mg/dL 7.6-11.0 [facility] Serum or plasma urea nitroge n measurement (mass/volume)Ordered By: Krystina Hernández on 11-27-2024 Urea nitrogen [Mass/Vol] 16 mg/dL 4-19 [facility] Shuntogram/Prev Placed Shunt on 11-27-2024 Shuntogram/Prev Placed Shunt [facility] Imaging Services [address] [place], [place] [address] Shuntogram/Prev Placed Shunt MR#: [id number] Acct: [id number] Name: DONNA RODRIGES Rep #: [id number] : 1985 M 39 From: Asif Toledo DO PCP: Dr. Aliza Roman MD Status: [facility] ER Study: Shuntogram/Prev Placed Shunt Date of Exam: 02/15 Exam# [id number] Ordering Dr: Davonte Mendez DO EXAM: Diagnostic shuntogram of placed shunt. CLINICAL HISTORY: Bilateral lower extremity edema for 2 days. COMPARISON: Yesterday, November 26 pelvis and November 27 brain TECHNIQUE: Plain films were obtained to survey the entire course of the right-sided NEW ACCOUNTS REPRESENTATIVE shunt. FINDINGS: Skull demonstrates right parietal shunt. The tubing traverses the right skull and right thorax and then is seen right abdomen initially and then crosses over to the left abdomen. No obvious kinking or other abnormality. RAD/Shuntogram/Prev Placed Shunt IMPRESSION: Patent NEW ACCOUNTS REPRESENTATIVE shunt. Reading [facility] CC: Dr. Aliza Roman MD; Dr. Davonte Mendez DO Pallet Stone Positioner: Signed Normal [facility] Sodium levelOrdered By: Obey Hernández on 11-27-2024 Sodium [Moles/Vol] 138 mmol/L 133-145 [facility] Troponin T.cardiac High sens itivity method [Mass/Vol]Ordered By: Krystina Hernández on 11-27-2024 Troponin T High Sensitivity 12 ng/L <22 [facility] Troponin T.cardiac [Mass/vol ume] in Serum or Plasma by High sensitivity methodOrdered By: Krystina Hernández on 11-27-2024 Troponin T.cardiac High sensitivity method [Mass/Vol] 12 ng/L <22 [facility] White blood cell (WBC) count Ordered By: Krystina Hernández on 11-27-2024 WBC (Bld) [#/Vol] 7.6 10*3/uL 4.4-11.0 [facility] Emergency Department Summary on 10-28-2024 Emergency Department Summary [facility] Medical Records Department [address] [place] [address] Emergency Department Summary 10/28/24 MR#: [id number] Acct: [id number] Name: DONNA RODRIGES Rep #: [id number] : 1985 39 From: Madhu Page DO PCP: Dr. Aliza Roman MD Status:DEP ER Location: ED [facility] History of Present Illness Chief Complaint: Lower [...] 40 mg of furosemide twice a day [facility] Medical History ROBERT treated with BiPAP Cerebral [...] H/O hernia repair H/O eye surgery S/P NEW ACCOUNTS REPRESENTATIVE shunt Social History Smoking Status: Never smoker [...] Musculoskeletal Musc (more content not included)... Normal [facility] Venous Duplex US, Unilateral on 10-28-2024 Venous Duplex US, Unilateral [facility] Cardiovascular Services [address] [place] [address] Venous Duplex US, Unilateral 10/28/24 1307 MR#: [id number] Acct: [id number] Name: DONNA RODRIGES Rep #: [id number] : 1985 39 From: Mamadou Mendoza MD Attending Dr: Status: DEP Ordering Dr: Hafsa Salcedo DO Date: 10/28/24 [...] Physician: Aliza Roman Performed By: Maday Boo, ROBERT, RVT 10/31/241809 Date Mamadou Mendoza MD CC: Dr. Hafsa Salcedo DO; Dr. Madhu Page DO; Dr. Aliza Roman MD Date Dictated: 10/28/24 1307 Date Transcribed: 10/31/24 1810 Pallet Stone Positioner: Signed Normal [facility] Albumin to globulin ratioOrd ered By: Aliza Roman on 09-21-2024 Albumin/Globulin [Mass ratio] 0.7 {ratio} Low 0.9-2.4 [facility] Bilirubin, totalOrdered By: Aliza Roman on 09-21-2024 Bilirubin [Mass/Vol] 0.40 mg/dL 0.20-1.00 [facility] Comment on above: For patients on eltr ombopag therapy, use of Dimension Jackson TBIL is not recommended. Blood urea nitrogen (BUN)/cr eatinine ratioOrdered By: Aliza Roman on 09-21-2024 Urea nitrogen/Creatinine [Mass ratio] 22.3 mg/mg High 10-20 [facility] Carbon dioxide measurementOr dered By: Aliza Roman on 09-21-2024 CO2 [Moles/Vol] 27.0 mmol/L 21.0-32.0 [facility] Chloride measurementOrdered By: Aliza Roman on 09-21-2024 Chloride [Moles/Vol] 101 mmol/L 98-107 [facility] Comprehensive Metabolic Prof ilon 09-21-2024 Albumin [Mass/Vol] 3.4 g/dL Normal 3.2-5.0 [facility] Comment on above: Performed By: #### L 502.0250, L500.4050, L500.4100 ####[facility] [address] [place], [address] Albumin/Globulin [Mass ratio] 0.7 {ratio} Low 0.9-2.4 [facility] Comment on above: Performed By: #### L 502.0250, L500.4050, L500.4100 ####[facility] [address] [place], [address] ALK P 126 U/L High 45-117 [facility] Comment on above: Performed By: #### L 502.0250, L500.4050, L500.4100 ####[facility] [address] [place], [address] ALT [Catalytic activity/Vol] 84 U/L High 16-61 [facility] Comment on above: Performed By: #### L 502.0250, L500.4050, L500.4100 ####[facility] [address] [place], [address] AST [Catalytic activity/Vol] 54 U/L High 15-37 [facility] Comment on above: Performed By: #### L 502.0250, L500.4050, L500.4100 ####[facility] [address] [place], [address] Bilirubin [Mass/Vol] 0.40 mg/dL Normal 0.20-1.00 [facility] Comment on above: Result Comment: For patients on eltrombopag therapy, use of Dimension Jackson TBIL is not recommended. Performed By: #### L 502.0250, L500.4050, L500.4100 ####[facility] [address] [place], [address] BUN/CRE 22.3 RATIO High 10-20 [facility] Comment on above: Performed By: #### L 502.0250, L500.4050, L500.4100 ####[facility] [address] [place], [address] CA,Total 9.4 mg/dL Normal 8.5-10.1 [facility] Comment on above: Performed By: #### L 502.0250, L500.4050, L500.4100 ####[facility] [address] [place], [address] Chloride [Moles/Vol] 101 mmol/L Normal 98-107 [facility] Comment on above: Performed By: #### L 502.0250, L500.4050, L500.4100 ####[facility] [address] [place], [address] CO2 [Moles/Vol] 27.0 mmol/L Normal 21.0-32.0 [facility] Comment on above: Performed By: #### L 502.0250, L500.4050, L500.4100 ####[facility] [address] [place], [address] Creatinine [Mass/Vol] 0.72 mg/dL Normal 0.70-1.30 [facility] Comment on above: Result Comment: The validity of the calculated GFR GFRAA in patients over 70 years has not been determined. Clinical correlation is essential. Performed By: #### L 502.0250, L500.4050, L500.4100 ####[facility] [address] [place], [address] EST GFR - AA 156 mL/min Normal >60 [facility] Comment on above: Result Comment: Afri can Malawian GFR Calc Performed By: #### L 502.0250, L500.4050, L500.4100 ####[facility] [address] [place], [address] GAP 8 Normal 5-15 [facility] Comment on above: Performed By: #### L 502.0250, L500.4050, L500.4100 ####[facility] [address] [place], [address] GFR/1.73 sq M.predicted among non-blacks MDRD (S/P/Bld) [Vol rate/Area] 129 mL/min/{1.73_m2} Normal >60 [facility] Comment on above: Result Comment: Non- GFR Calc Performed By: #### L 502.0250, L500.4050, L500.4100 ####[facility] [address] [place], [address] Globulin (S) [Mass/Vol] 4.7 g/dL High 2.2-4.2 [facility] Comment on above: Performed By: #### L 502.0250, L500.4050, L500.4100 ####[facility] [address] [place], [address] Glucose [Mass/Vol] 319 mg/dL High 74-106 [facility] Comment on above: Result Comment: Gluc ose result greater than or equal to 200 mg/dL suggests DIABETES MELLITUS per A.D.A. criteria. Performed By: #### L 502.0250, L500.4050, L500.4100 ####[facility] [address] [place], [address] Potassium [Moles/Vol] 4.3 mmol/L Normal 3.5-5.1 [facility] Comment on above: Performed By: #### L 502.0250, L500.4050, L500.4100 ####[facility] [address] [place], [address] Sodium [Moles/Vol] 136 mmol/L Normal 136-145 [facility] Comment on above: Performed By: #### L 502.0250, L500.4050, L500.4100 ####[facility] [address] [place], [address] T PROT 8.1 g/dL Normal 6.4-8.2 [facility] Comment on above: Performed By: #### L 502.0250, L500.4050, L500.4100 ####[facility] [address] [place], [address] Urea nitrogen [Mass/Vol] 16 mg/dL Normal 7-18 [facility] Comment on above: Performed By: #### L 502.0250, L500.4050, L500.4100 ####[facility] [address] [place], [place], [address] Estimated glomerular filtrat ion rate (GFR) AmericanOrdered By: Aliza Roman on 09-21-2024 Estimated GFR (MDRD) Amer 156 mL/min >60 [facility] Comment on above: GFR Calc Glomerular filtration rate ( GFR) estimationOrdered By: Aliza Roman on 09-21-2024 Estimated GFR (MDRD) Non-Af Amer 129 mL/min >60 [facility] Comment on above: Non- GFR Calc GFR/1.73 sq M.predicted among non-blacks MDRD (S/P/Bld) [Vol rate/Area] 129 mL/min/{1.73_m2} >60 [facility] Comment on above: Non- GFR Calc Glucose measurementOrdered B y: Aliza Roman on 09-21-2024 Glucose [Mass/Vol] 319 mg/dL High 74-106 [facility] Comment on above: Glucose result great er than or equal to 200 mg/dLsuggests DIABETES MELLITUS per A.D.A. criteria. High density lipoprotein (HD L) measurementOrdered By: Aliza Roman on 09-21-2024 Cholesterol in HDL [Mass/Vol] 37 mg/dL Low >40 [facility] Comment on above: The drugs N-Acetylcy steine and Metamizole may falsely depress this assay. Reference Range HDL <40 mg/dL Low HDL Cholesterol HDL >or= 60 mg/dL High HDL Cholesterol Laboratory - Chemistry and C hemistry - challengeOrdered By: Aliza Roman on 09-21-2024 AST [Catalytic activity/Vol] 54 U/L High 15-37 [facility] Lipid Profileon 09-21-2024 Cholesterol [Mass/Vol] 233 mg/dL High 200 [facility] Comment on above: Result Comment: <200 mg/dL Desirable 200-240 mg/dL Borderline >240 mg/dL High Risk Performed By: #### L 502.0250, L500.4050, L500.4100 ####[facility] [address] [place], [place], [address] Cholesterol in HDL [Mass/Vol] 37 mg/dL Low [facility] Comment on above: Result Comment: The drugs N-Acetylcysteine and Metamizole may falsely depress this assay. Reference Range HDL <40 mg/dL Low HDL Cholesterol HDL >or= 60 mg/dL High HDL Cholesterol Performed By: #### L 502.0250, L500.4050, L500.4100 ####[facility] [address] [place], [address] Cholesterol in LDL [Mass/Vol] 134 mg/dL High 0-130 [facility] Comment on above: Performed By: #### L 502.0250, L500.4050, L500.4100 ####[facility] [address] [place], [address] Cholesterol in VLDL [Mass/Vol] 62 mg/dL High 5-40 [facility] Comment on above: Performed By: #### L 502.0250, L500.4050, L500.4100 ####[facility] [address] [place], [address] Triglyceride [Mass/Vol] 311 mg/dL High [facility] Comment on above: Result Comment: The drugs N-Acetylcysteine and Metamizole may falsely depress this assay. Serum Triglycerides Reference Interval Normal <150 mg/dL Borderline high 150 - 199 mg/dL High 200 - 499 mg/dL Very High > or = 500 mg/dL Performed By: #### L 502.0250, L500.4050, L500.4100 ####[facility] [address] [place], [address] Low density lipoprotein (LDL ) cholesterol measurementOrdered By: Aliza Roman on 09-21-2024 Cholesterol in LDL [Mass/Vol] 134 mg/dL High 0-130 [facility] Microalb:Creat Ratio,Random URon 09-21-2024 Creatinine [Mass/Vol] 55.10 mg/dL Normal NO RAN GE EST. [facility] Comment on above: Performed By: #### L 502.0250, L500.4050, L500.4100 ####[facility] [address] [place], [address] MALB:CRE 16.1 mg/g CRE Normal <30 mg/g CRE [facility] Comment on above: Performed By: #### L 502.0250, L500.4050, L500.4100 ####[facility] [address] [place], [address] MICROALBUMIN,UR 8.8 mg/L Normal NO RANGE EST. [facility] Comment on above: Performed By: #### L 502.0250, L500.4050, L500.4100 ####[facility] [address] [place], [address] Potassium measurementOrdered By: Aliza Roman on 09-21-2024 Potassium [Moles/Vol] 4.3 mmol/L 3.5-5.1 [facility] Random urine microalbumin me asurementOrdered By: Aliza Roman on 09-21-2024 Urine Random Microalbumin 8.8 mg/L NO RANGE EST. [facility] Serum anion gap measurementO rdered By: Aliza Roman on 09-21-2024 Anion gap [Moles/Vol] 8 mmol/L 5-15 [facility] Serum globulin measurementOr dered By: Aliza Roman on 09-21-2024 Globulin (S) [Mass/Vol] 4.7 g/dL High 2.2-4.2 [facility] Serum or plasma alanine elizondo otransferase (ALT) measurementOrdered By: Aliza Roman on 09-21-2024 ALT [Catalytic activity/Vol] 84 U/L High 16-61 [facility] Serum or plasma albumin gloria urement (mass/volume)Ordered By: Aliza Roman on 09-21-2024 Albumin [Mass/Vol] 3.4 g/dL 3.2-5.0 [facility] Serum or plasma alkaline ramesh sphatase measurementOrdered By: Aliza Roman on 09-21-2024 ALP [Catalytic activity/Vol] 126 U/L High 45-117 [facility] Serum or plasma calcium gloria urement (mass/volume)Ordered By: Aliza Roman on 09-21-2024 Calcium [Mass/Vol] 9.4 mg/dL 8.5-10.1 [facility] Serum or plasma cholesterol measurement (mass/volume)Ordered By: Aliza Roman on 09-21-2024 Cholesterol [Mass/Vol] 233 mg/dL High <200 [facility] Comment on above: <200 mg/dL Desirable 200-240 mg/dL Borderline >240 mg/dL High Risk Serum or plasma creatinine m easurement (mass/volume)Ordered By: Aliza Roman on 09-21-2024 Creatinine [Mass/Vol] 0.72 mg/dL 0.70-1.30 [facility] Comment on above: The validity of the calculated GFR & GFRAA in patients over 70 years has not been determined. Clinical correlation is essential. Serum or plasma urea nitroge n measurement (mass/volume)Ordered By: Aliza Roman on 09-21-2024 Urea nitrogen [Mass/Vol] 16 mg/dL 7-18 [facility] Sodium levelOrdered By: Sunny Roman on 09-21-2024 Sodium [Moles/Vol] 136 mmol/L 136-145 [facility] Total proteinOrdered By: Byron Roman on 09-21-2024 Protein [Mass/Vol] 8.1 g/dL 6.4-8.2 [facility] Triglycerides measurementOrd ered By: Aliza Roman on 09-21-2024 Triglyceride [Mass/Vol] 311 mg/dL High <199 [facility] Comment on above: The drugs N-Acetylcy steine and Metamizole may falsely depress this assay.Serum Triglycerides Reference Interval Normal <150 mg/dL Borderline high 150 - 199 mg/dL High 200 - 499 mg/dL Very High > or = 500 mg/dL Urine albumin/creatinine rat io for detection of microalbuminuriaOrdered By: Aliza Roman on 09-21-2024 Urine Microalbumin/Creatinine Ratio 16.1 mg/g CRE <30 [facility] Urine creatinine measurement (mass/volume)Ordered By: Aliza Roman on 09-21-2024 Creatinine (U) [Mass/Vol] 55.10 mg/dL NO RANGE EST. [facility] Very low density lipoprotein (VLDL) cholesterol measurementOrdered By: Aliza Roman on 09-21-2024 Very low density lipoprotein (VLDL) cholesterol measurement 62 mg/dL High 5-40 [facility] VLDL Cholesterol 62 mg/dL High 5-40 [facility] Bedside Glucoseon 08-29-2024 FINGERSTICK GLU 287 mg/dL High 74-106 [facility] Comment on above: Result Comment: TIN BESS OF PATIENT CARE PER NURSING PROTOCOL Performed By: #### L 501.080 #### [facility] Laboratory [address] [place], [address] Performed By: #### L 501.080 ####[facility] [address] [place], [address] Fluoro Guided Needle Placeme nton 08-29-2024 Fluoro Guided Needle Placement [facility] Imaging Services [address] [place] [address] Fluoro Guided Needle Placement MR#: [id number] Acct: [id number] Name: DONNA RODRIGES Rep #: [id number] : 1985 M 39 From: Donaldo powell MD PCP: Dr. Aliza Roman MD Status: [facility] Study: Fluoro Guided Needle Placement Date of Exam: 0 08/29/24 Exam# [id number] Ordering Dr: [place] [id number] STUDY: HIP INJECTION. LEFT REASON FOR EXAM: Male, 39 years old. LT HIP INJECTION FLUOROSCOPY TIME (if supplied): ( 4 seconds ) minutes/seconds. 1.94 mGy. One image was submitted. FINDINGS: Intraoperative imaging provided for left hip injection. RAD/Fluoro Guided Needle Placement IMPRESSION: Intraoperative imaging provided for left hip injection. Electronically Signed: Donaldo Roldan MD at 12:02 EST , CC: Dr. Aliza Roman MD; Dr. Carlos Ibarra MD Pallet Stone Positioner: Signed Normal [facility] Fluoro Guided Needle Placement [facility] Imaging Services [address] [place] [address] [id number] Fluoro Guided Needle Placement MR#: [id number] Acct: [id number] Name: DONNA RODRIGES Rep #: [id number] : 1985 39 From: Donaldo powell MD PCP: Dr. Aliza Roman MD Status: [facility] Study: Fluoro Guided Needle Placement Date of Exam: 0 08/29/24 Exam# [id number] Ordering [place]: [place] [id number] STUDY: HIP INJECTION. LEFT REASON FOR EXAM: Male, 39 years old. LT HIP INJECTION FLUOROSCOPY TIME (if supplied): ( 4 seconds ) minutes/seconds. 1.94 mGy. One image was submitted. FINDINGS: Intraoperative imaging provided for left hip injection. RAD/Fluoro Guided Needle Placement IMPRESSION: Intraoperative imaging provided for left hip injection. Electronically Signed: Donaldo Roldan MD at 12:02 EST , CC: Dr. Aliza Roman MD; Dr. Carlos Ibarra MD Pallet Stone Positioner: Signed Normal [facility] Operative Reporton [address] [facility] Medical Records Department [address] [place] [address] Operative Report 08/29/24 1114 MR#: [id number] Acct: [id number] Name: DONNA RODRIGES Rep #: [id number] : 1985 39 From: Carlos Ibarra MD PCP: Dr. Aliza Roman MD Status:[facility] Location: [place] [address] Operative Report (Standard) Operative Information Date of Procedure: 08/29/24 Pre-Operative Diagnosis: 1 Post-Operative Diagnosis: 1 Surgery/Procedure Performed: 1 envelope adjuster: No Type of Anesthesia: Local RN Documented [...] None VTE Pharm Prophylaxis ordered?: No 08/29/24 1115 Cosigner Signature (if applicable): CC: Dr. Aliza Roman MD; Dr. Carlos Ibarra MD Signed Normal [facility] XR SHUNTOGRAMon 02-03-2024 XR SHUNTOGRAM ORIGINAL EXAMINATION: [...] 02/03/2024 9:18:07 AM Ordering Provider: KAILA PFEIFFER [facility] ([place] CT HEAD OR BRAIN W/O CONTRAS Ton [...] 02/02/2024 3:05:07 PM Ordering Provider: KAILA PFEIFFER [facility] ([place]) Absolute lymphocyte countOrd ered By: Robinson Guillen on 12-23-2023 Lymphocytes Auto (Unsp spec) [#/Vol] 1.77 10*3/uL 0.83-4.51 [facility] Automated lymphocyte count a s percentage of total leukocytesOrdered By: Robinson Guillen on 12-23-2023 Lymphocytes/100 WBC Auto (Unsp spec) 21.6 % 19-41 [facility] Basophil percentageOrdered B y: Robinson Guillen on 05-01-2024 Basophils/100 WBC (Bld) 0.5 % 0-1 [facility] Bilirubin [Mass/Vol] 0.40 mg/dL 0.20-1.00 [facility] Comment on above: For patients on eltr ombopag therapy, use of Dimension [place] TBIL is not recommended. Chloride [Moles/Vol] 102 mmol/L 98-107 [facility] Eosinophils/100 WBC (Bld) 2.2 % 0-5 [facility] Glucose [Mass/Vol] 243 mg/dL 74-106 [facility] Comment on above: Glucose result great er than or equal to 200 mg/dLsuggests DIABETES MELLITUS per A.D.A. criteria. Hemoglobin (Bld) [Mass/Vol] 15.1 g/dL 13.0-16.5 [facility] Monocytes/100 WBC (Bld) 7.3 % 0-10 [facility] Neutrophils (Bld) [#/Vol] 5.5 10*3/uL 2.0-7.7 [facility] Neutrophils/100 WBC (Bld) 67.2 % 47-70 [facility] Potassium [Moles/Vol] 4.3 mmol/L 3.5-5.1 [facility] Comment on above: Moderate Hemolysis, Result may be falsely increased. Protein [Mass/Vol] 8.2 g/dL 6.4-8.2 [facility] Sodium [Moles/Vol] 138 mmol/L 136-145 [facility] WBC (Bld) [#/Vol] 8.2 10*3/uL 4.4-11.0 [facility] Determination of erythrocyte mean corpuscular volume (MCV)Ordered By: Robinson Guillen on 12-23-2023 MCV (RBC) [Entitic vol] 86.8 fL 80-94 [facility] Erythrocyte distribution wid th ratioOrdered By: Robinson Guillen on 12-23-2023 Erythrocyte distribution width (RBC) [Ratio] 15.3 % 11.6-14.6 [facility] Erythrocyte distribution wid th standard deviationOrdered By: Robinson Guillen on 12-23-2023 Erythrocyte distribution width (RBC) [Entitic vol] 47.8 fL 35.1-43.9 [facility] Hematocrit Auto (Bld) [Volum e fraction]Ordered By: Robinson Guillen on 12-23-2023 Hematocrit (Bld) [Volume fraction] 46.0 % 40-54 [facility] Immature granulocytes/100 WB C Auto (Bld)Ordered By: Robinson Guillen on 12-23-2023 Immature granulocytes/100 WBC (Bld) 1.200 % 0.0-0.9 [facility] Comment on above: IG% - Immature Granu locytes (promyelocytes, myelocytes and metamyelocytes) > 1% indicates that a LEFT SHIFT is Present. Laboratory - Chemistry and C hemistry - challengeOrdered By: Robinson Guillen on 12-23-2023 Albumin/Globulin [Mass ratio] 0.8 {ratio} 0.9-2.4 [facility] ALP [Catalytic activity/Vol] 84 U/L 45-117 [facility] ALT [Catalytic activity/Vol] 41 U/L 16-61 [facility] CO2 [Moles/Vol] 32.0 mmol/L 21.0-32.0 [facility] Globulin (S) [Mass/Vol] 4.5 g/dL 2.2-4.2 [facility] Urea nitrogen/Creatinine [Mass ratio] 22.1 mg/mg 10-20 [facility] Laboratory - Hematology and Cell countsOrdered By: Robinson Guillen on 12-23-2023 MCH (RBC) [Entitic mass] 28.5 pg 27.0-32.0 [facility] MCHC (RBC) [Mass/Vol] 32.8 g/dL 32-36 [facility] Nucleated RBC/100 WBC (Bld) [Ratio] 0 % 0-5 [facility] Platelet mean volume (Bld) [Entitic vol] 10.2 fL 6.2-12.0 [facility] Platelets (Bld) [#/Vol] 218 10*3/uL 150-450 [facility] No Panel InformationOrdered By: Robinson Guillen on 12-23-2023 Estimated Creatinine Clearance Calc 204.27 ml/min [facility] Estimated GFR (MDRD) Amer 167 mL/min >60 [facility] Comment on above: GFR Calc Estimated GFR (MDRD) Non-Af Amer 138 mL/min >60 [facility] Comment on above: Non- GFR Calc Troponin I High Sensitivity < 3 pg/mL 3.0-78.0 [facility] Comment on above: Please Note: New Katja t Units and Gender Specific Reference Ranges. For more information see Policy Stat Procedure Jackson High Sensitivity Troponin (TNIH) and attachments. RBC Auto (Bld) [#/Vol]Ordere d By: Robinson Guillen on 12-23-2023 RBC (Bld) [#/Vol] 5.30 10*6/uL 4.6-6.2 [facility] Serum or plasma calcium gloria urement (mass/volume)Ordered By: Robinson Guillen on 12-23-2023 Calcium [Mass/Vol] 9.1 mg/dL 8.5-10.1 [facility] Serum or plasma creatinine m easurement (mass/volume)Ordered By: Robinson Guillen on 12-23-2023 Creatinine [Mass/Vol] 0.68 mg/dL 0.70-1.30 [facility] Comment on above: The validity of the calculated GFR & GFRAA in patients over 70 years has not been determined. Clinical correlation is essential. Serum or plasma urea nitroge n measurement (mass/volume)Ordered By: Robinson Guillen on 12-23-2023 Urea nitrogen [Mass/Vol] 15 mg/dL 7-18 [facility] Thin prep Papanicolaou smear with manual screeningOrdered By: Robinson Guillen on 12-23-2023 Thin prep Papanicolaou smear with manual screening 3.7 g/dL 3.2-5.0 [facility] Thin prep Papanicolaou smear with manual screening 31 U/L 15-37 [facility] Comment on above: Moderate Hemolysis, Result may be falsely increased. Thin prep Papanicolaou smear with manual screening 4 5-15 [facility] Absolute lymphocyte countOrd ered By: Zeny Dumont on 12-18-2023 Lymphocytes Auto (Unsp spec) [#/Vol] 2.65 10*3/uL 0.83-4.51 [facility] Automated lymphocyte count a s percentage of total leukocytesOrdered By: Zeny Dumont on 12-18-2023 Lymphocytes/100 WBC Auto (Unsp spec) 27.8 % 19-41 [facility] Basophil percentageOrdered B y: Zeny Dumont on 12-18-2023 Basophils/100 WBC (Bld) 0.6 % 0-1 [facility] Chloride [Moles/Vol] 104 mmol/L 98-107 [facility] Eosinophils/100 WBC (Bld) 2.0 % 0-5 [facility] Glucose [Mass/Vol] 216 mg/dL 74-106 [facility] Comment on above: Glucose result great er than or equal to 200 mg/dLsuggests DIABETES MELLITUS per A.D.A. criteria. Hemoglobin (Bld) [Mass/Vol] 14.7 g/dL 13.0-16.5 [facility] Monocytes/100 WBC (Bld) 7.9 % 0-10 [facility] Neutrophils (Bld) [#/Vol] 5.8 10*3/uL 2.0-7.7 [facility] Neutrophils/100 WBC (Bld) 60.9 % 47-70 [facility] Potassium [Moles/Vol] 4.6 mmol/L 3.5-5.1 [facility] Comment on above: Moderate Hemolysis, Result may be falsely increased. Sodium [Moles/Vol] 139 mmol/L 136-145 [facility] WBC (Bld) [#/Vol] 9.5 10*3/uL 4.4-11.0 [facility] Determination of erythrocyte mean corpuscular volume (MCV)Ordered By: Zeny Dumont on 12-18-2023 MCV (RBC) [Entitic vol] 87.8 fL 80-94 [facility] Erythrocyte distribution wid th ratioOrdered By: Zeny Dumont on 12-18-2023 Erythrocyte distribution width (RBC) [Ratio] 15.2 % 11.6-14.6 [facility] Erythrocyte distribution wid th standard deviationOrdered By: Zeny Dumont on 12-18-2023 Erythrocyte distribution width (RBC) [Entitic vol] 48.0 fL 35.1-43.9 [facility] Hematocrit Auto (Bld) [Volum e fraction]Ordered By: Zeny Dumont on 12-18-2023 Hematocrit (Bld) [Volume fraction] 44.7 % 40-54 [facility] Immature granulocytes/100 WB C Auto (Bld)Ordered By: Zeny Dumont on 12-18-2023 Immature granulocytes/100 WBC (Bld) 0.800 % 0.0-0.9 [facility] Comment on above: IG% - Immature Granu locytes (promyelocytes, myelocytes and metamyelocytes) > 1% indicates that a LEFT SHIFT is Present. Laboratory - Chemistry and C hemistry - challengeOrdered By: Zeny Dumont on 12-18-2023 CO2 [Moles/Vol] 31.0 mmol/L 21.0-32.0 [facility] Urea nitrogen/Creatinine [Mass ratio] 27.1 mg/mg 10-20 [facility] Laboratory - Hematology and Cell countsOrdered By: Zeny Dumont on 12-18-2023 MCH (RBC) [Entitic mass] 28.9 pg 27.0-32.0 [facility] MCHC (RBC) [Mass/Vol] 32.9 g/dL 32-36 [facility] Nucleated RBC/100 WBC (Bld) [Ratio] 0 % 0-5 [facility] Platelet mean volume (Bld) [Entitic vol] 10.8 fL 6.2-12.0 [facility] Platelets (Bld) [#/Vol] 225 10*3/uL 150-450 [facility] No Panel InformationOrdered By: Zeny Dumont on 12-18-2023 Estimated Creatinine Clearance Calc 194.38 ml/min [facility] Estimated GFR (MDRD) Amer 160 mL/min >60 [facility] Comment on above: GFR Calc Estimated GFR (MDRD) Non-Af Amer 133 mL/min >60 [facility] Comment on above: Non- GFR Calc RBC Auto (Bld) [#/Vol]Ordere d By: Zeny Dumont on 12-18-2023 RBC (Bld) [#/Vol] 5.09 10*6/uL 4.6-6.2 [facility] [place] [place] Serum or plasma calcium gloria urement (mass/volume)Ordered By: Zeny Dumont on 12-18-2023 Calcium [Mass/Vol] 8.7 mg/dL 8.5-10.1 [facility] [place] [place] Serum or plasma creatinine m easurement (mass/volume)Ordered By: Zeny Dumont on 12-18-2023 Creatinine [Mass/Vol] 0.70 mg/dL 0.70-1.30 [facility] Comment on above: The validity of the calculated GFR & GFRAA in patients over 70 years has not been determined. Clinical correlation is essential. Serum or plasma urea nitroge n measurement (mass/volume)Ordered By: Zeny Dumont on 12-18-2023 Urea nitrogen [Mass/Vol] 19 mg/dL 7-18 [facility] Thin prep Papanicolaou smear with manual screeningOrdered By: Zeny Dumont on 12-18-2023 Thin prep Papanicolaou smear with manual screening 4 5-15 [facility] Absolute lymphocyte countOrd ered By: Rmoulo Estrella on 12-05-2023 Lymphocytes Auto (Unsp spec) [#/Vol] 2.57 10*3/uL 0.83-4.51 [facility] Automated lymphocyte count a s percentage of total leukocytesOrdered By: Romulo Estrella on 12-05-2023 Lymphocytes/100 WBC Auto (Unsp spec) 31.9 % 19-41 [facility] Basophil percentageOrdered B y: Romulo Estrella on 12-05-2023 Basophil percentage 25-50 SEEN /hpf 0-5 [facility] Basophils/100 WBC (Bld) 0.6 % 0-1 [facility] Bilirubin [Mass/Vol] 0.40 mg/dL 0.20-1.00 [facility] Comment on above: For patients on eltr ombopag therapy, use of Dimension [place] TBIL is not recommended. Chloride [Moles/Vol] 108 mmol/L 98-107 [facility] Eosinophils/100 WBC (Bld) 1.5 % 0-5 [facility] Glucose [Mass/Vol] 129 mg/dL 74-106 [facility] Comment on above: Fasting Glucose resu lt greater than or equal to 126 mg/dL suggests DIABETES MELLITUS per A.D.A. criteria. Hemoglobin (Bld) [Mass/Vol] 15.2 g/dL 13.0-16.5 [facility] Monocytes/100 WBC (Bld) 7.5 % 0-10 [facility] Neutrophils (Bld) [#/Vol] 4.6 10*3/uL 2.0-7.7 [facility] Neutrophils/100 WBC (Bld) 57.5 % 47-70 [facility] Potassium [Moles/Vol] 4.3 mmol/L 3.5-5.1 [facility] Comment on above: Moderate Hemolysis, Result may be falsely increased. Protein [Mass/Vol] 8.1 g/dL 6.4-8.2 [facility] Sodium [Moles/Vol] 139 mmol/L 136-145 [facility] WBC (Bld) [#/Vol] 8.1 10*3/uL 4.4-11.0 [facility] Bilirubin Test strip Ql (U)O rdered By: Romulo Estrella on 12-05-2023 Bilirubin Ql (U) Negative Negative [facility] Determination of erythrocyte mean corpuscular volume (MCV)Ordered By: Romulo Estrella on 12-05-2023 MCV (RBC) [Entitic vol] 87.3 fL 80-94 [facility] Erythrocyte distribution wid th ratioOrdered By: Romulo Estrella on 12-05-2023 Erythrocyte distribution width (RBC) [Ratio] 15.6 % 11.6-14.6 [facility] Erythrocyte distribution wid th standard deviationOrdered By: Romulo Estrella on 12-05-2023 Erythrocyte distribution width (RBC) [Entitic vol] 49.2 fL 35.1-43.9 [facility] Hematocrit Auto (Bld) [Volum e fraction]Ordered By: Romulo Estrella on 12-05-2023 Hematocrit (Bld) [Volume fraction] 47.4 % 40-54 [facility] Immature granulocytes/100 WB C Auto (Bld)Ordered By: Romulo Estrella on 12-05-2023 Immature granulocytes/100 WBC (Bld) 1.000 % 0.0-0.9 [facility] Comment on above: IG% - Immature Granu locytes (promyelocytes, myelocytes and metamyelocytes) > 1% indicates that a LEFT SHIFT is Present. Ketones Test strip Ql (U)Ord ered By: Romulo Estrella on 12-05-2023 Ketones Ql (U) Negative Negative [facility] Laboratory - Chemistry and C hemistry - challengeOrdered By: Romulo Estrella on 12-05-2023 Albumin/Globulin [Mass ratio] 0.8 {ratio} 0.9-2.4 [facility] ALP [Catalytic activity/Vol] 96 U/L 45-117 [facility] ALT [Catalytic activity/Vol] 48 U/L 16-61 [facility] CO2 [Moles/Vol] 28.0 mmol/L 21.0-32.0 [facility] Globulin (S) [Mass/Vol] 4.5 g/dL 2.2-4.2 [facility] Urea nitrogen/Creatinine [Mass ratio] 29.3 mg/mg 10-20 [facility] Laboratory - Hematology and Cell countsOrdered By: Romulo Esrtella on 12-05-2023 MCH (RBC) [Entitic mass] 28.0 pg 27.0-32.0 [facility] MCHC (RBC) [Mass/Vol] 32.1 g/dL 32-36 [facility] Nucleated RBC/100 WBC (Bld) [Ratio] 0 % 0-5 [facility] Platelet mean volume (Bld) [Entitic vol] 11.1 fL 6.2-12.0 [facility] Platelets (Bld) [#/Vol] 202 10*3/uL 150-450 [facility] Mucus LM Ql (Urine sed)Order ed By: Romulo Estrella on 12-05-2023 Mucus Ql (Urine sed) 0 SEEN /hpf [facility] Nitrite Test strip Ql (U)Ord ered By: Romulo Estrella on 12-05-2023 Nitrite Ql (U) Negative Negative [facility] No Panel InformationOrdered By: Romulo Estrella on 12-05-2023 Urine RBC 0-5 SEEN /hpf 0-5 [facility] Estimated GFR (MDRD) Amer 187 mL/min >60 [facility] Comment on above: GFR Calc Estimated GFR (MDRD) Non-Af Amer 155 mL/min >60 [facility] Comment on above: Non- GFR Calc Protein Test strip Ql (U)Ord ered By: Romulo Estrella on 12-05-2023 Protein Ql (U) 30 mg/dl Negative [facility] RBC Auto (Bld) [#/Vol]Ordere d By: Romulo Estrella on 12-05-2023 RBC (Bld) [#/Vol] 5.43 10*6/uL 4.6-6.2 [facility] Serum or plasma calcium gloria urement (mass/volume)Ordered By: Romulo Estrella on 12-05-2023 Calcium [Mass/Vol] 8.9 mg/dL 8.5-10.1 [facility] Serum or plasma creatinine m easurement (mass/volume)Ordered By: Romulo Estrella on 12-05-2023 Creatinine [Mass/Vol] 0.61 mg/dL 0.70-1.30 [facility] Comment on above: The validity of the calculated GFR & GFRAA in patients over 70 years has not been determined. Clinical correlation is essential. Serum or plasma urea nitroge n measurement (mass/volume)Ordered By: Romulo Estrella on 12-05-2023 Urea nitrogen [Mass/Vol] 18 mg/dL 7-18 [facility] Squamous epithelial cells de tection in urine sediment by light microscopyOrdered By: Romulo Estrella on 12-05-2023 Epithelial cells.squamous LM Ql (Urine sed) 0 SEEN /hpf 0-5 [facility] Thin prep Papanicolaou smear with manual screeningOrdered By: Romulo Estrella on 12-05-2023 Thin prep Papanicolaou smear with manual screening 3.6 g/dL 3.2-5.0 [facility] Thin prep Papanicolaou smear with manual screening 36 U/L 15-37 [facility] Comment on above: Moderate Hemolysis, Result may be falsely increased. Thin prep Papanicolaou smear with manual screening 3 5-15 [facility] Urine blood detectionOrdered By: Romulo Estrella on 12-05-2023 RBC Ql (U) 150 /ul Negative [facility] Urine clarityOrdered By: Jocelyn Estrella on 12-05-2023 Clarity (U) Sl. Cloudy Clear [facility] Urine color determinationOrd ered By: Romulo Estrella on 12-05-2023 Color (U) Yellow Yellow [facility] Urine glucose detectionOrder ed By: Romulo Estrella on 12-05-2023 Glucose Ql (U) 1000 mg/dl Normal [facility] Urine leukocyte esterase det ection by dipstickOrdered By: Romulo Estrella on 12-05-2023 Leukocyte esterase Test strip Ql (U) 500 /ul Negative [facility] Urine pHOrdered By: Romulo latif on 12-05-2023 pH (U) 5.0 [pH] 5.0 - 8.0 [facility] Urine sediment bacteria coun t by microscopy (number/high power field)Ordered By: Romulo Estrella on 12-05-2023 Bacteria LM.HPF (Urine sed) [#/Area] 1 /[HPF] None Seen [facility] Urine specific gravity measu rementOrdered By: Romulo Estrella on 12-05-2023 Specific gravity (U) [Rel density] 1.010 1.002-1.030 [facility] Urine urobilinogen measureme ntOrdered By: Romulo Estrella on 12-05-2023 Urobilinogen Ql (U) Normal mg/dl Normal [facility] CNOVon 11-19-2023 CNOV Office Visit (ORTHIN ) LORENDONNA PINTO ([id number]) 1985 Date Time Provider Department 11/19/23 2:30 PM [...] instability. Alleviating factors: Nothing makes my pain better" Prior pertinent orthopedic surgery: none Prior interventions: [...] Review of Systems: Reviewed and charted into [facility]. Physical Exam: PE reveals a male with the following vitals signs: Ht 162.6 cm (5' 4") Wt (!) 148.4 kg (327 lb 2.6 [...] (I hav (more content not included)... Normal [facility] XR HIP 3V PELV+ AP/LAT LTon [...] erosions. IMPRESSION: Advanced left hip degenerative change. Pallet Stone Positioner: EVERARDO Transcribe Date/Time: Nov 18 2023 4:59P Dictated by : BOBBY BANUELOS MD This examination was interpreted and the report reviewed and electronically signed by: BOBBY BANUELOS MD on Nov 18 2023 5:13PM EST [id number] Normal [facility] CNOVon 10-06-2023 CNOV Office Visit (PODIWS ) DONNA RODRIGES ([id number]) 1985 M Date Time Provider Department 10/06/23 [...] full wit (more content not included)... Normal [facility] XR FOOT 3V AP/LAT/OBL BILon 10-06-2023 [...] fifth toes. IMPRESSION: No acute osseous abnormality Pallet Stone Positioner: EVERARDO Transcribe Date/Time: Oct 07 2023 12:11P Dictated by : ARIANNA RODRIGUEZ MD This examination was interpreted and the report reviewed and electronically signed by: ARIANNA RODRIGUEZ MD on Oct 07 2023 12:13PM EST [id number] Normal [facility] Laboratory - Drug toxicology Ordered By: Aeljandro Gray on 09-10-2023 Amphetamines Ql (U) Negative <1000 ng/mL [facility] Benzodiazepines Ql (U) Negative < 200 ng/mL [facility] Cannabinoids Screen Ql (U) Negative < 50 ng/mL [facility] Cocaine Ql (U) Negative < 300 ng/mL [facility] Opiates Ql (U) Negative < 300 ng/mL [facility] No Panel InformationOrdered By: Alejandro Gary on 09-10-2023 MDMA (Ecstasy) Screen Negative < 500 ng/mL [facility] Miscellaneous Test See comment [facility] Comment on above: TEST RESULTS LIMITS Tramadol Positive Pwyorp=[id number] Tramadol Conf, [place], [place] 1312 ng/mL Hyyjmz=125 TESTING PERFORMED AT [facility]. ORIGINAL REPORT ON FILE IN LAB CONTAINS ADDITIONAL TEST SITE INFORMATION. Urine Barbiturates Screen Negative < 200 ng/m L [facility] Urine Drug Screen Comment [facility] Comment on above: CONFIRMATORY TESTING FOR ALL [...] TESTING MUST BE ORDERED SEPARATELY. USE TESTMNEMONIC: [facility] Urine Methadone Screen Negative < 300 ng/mL [facility] Urine phencyclidine (PCP) de tectionOrdered By: Alejandro Gray on 09-10-2023 Phencyclidine Ql (U) Negative < 25 ng/mL [facility] Laboratory - Drug toxicology Ordered By: Alejandro Gray on 09-03-2023 Amphetamines Ql (U) Negative <1000 ng/mL [facility] Benzodiazepines Ql (U) Negative < 200 ng/mL [facility] Cannabinoids Screen Ql (U) Negative < 50 ng/mL [facility] Cocaine Ql (U) Negative < 300 ng/mL [facility] Opiates Ql (U) Negative < 300 ng/mL [facility] No Panel InformationOrdered By: Alejandro Gray on 09-03-2023 MDMA (Ecstasy) Screen Negative < 500 ng/mL [facility] Urine Barbiturates Screen Negative < 200 ng/m L [facility] Urine Drug Screen Comment [facility] Comment on above: CONFIRMATORY TESTING FOR ALL [...] TESTING MUST BE ORDERED SEPARATELY. USE TESTMNEMONIC: [facility] Urine Methadone Screen Negative < 300 ng/mL [facility] Urine phencyclidine (PCP) de tectionOrdered By: Alejandro Gray on 09-03-2023 Phencyclidine Ql (U) Negative < 25 ng/mL [facility] Absolute lymphocyte countOrd ered By: Dr. Guillen on 02-15-2023 Lymphocytes Auto (Unsp spec) [#/Vol] 2.26 10*3/uL 0.83-4.51 [facility] Basophil percentageOrdered B y: Dr. Guillen on 02-15-2023 Basophil percentage 0 SEEN /hpf 0-5 [facility] Lactate [Moles/Vol] 1.3 mmol/L 0.4-2.0 [facility] Basophils/100 WBC (Bld) 0.7 % 0-1 [facility] Bilirubin [Mass/Vol] 0.40 mg/dL 0.20-1.00 [facility] Comment on above: For patients on eltr ombopag therapy, use of Dimension Jackson TBIL is not recommended. Chloride [Moles/Vol] 103 mmol/L 98-107 [facility] Eosinophils/100 WBC (Bld) 3.2 % 0-5 [facility] Glucose [Mass/Vol] 151 mg/dL 74-106 [facility] Comment on above: Fasting Glucose resu lt greater than or equal to 126 mg/dL suggests DIABETES MELLITUS per A.D.A. criteria. Neutrophils (Bld) [#/Vol] 5.9 10*3/uL 2.0-7.7 [facility] Neutrophils/100 WBC (Bld) 64.2 % 47-70 [facility] Potassium [Moles/Vol] 3.9 mmol/L 3.5-5.1 [facility] Protein [Mass/Vol] 7.8 g/dL 6.4-8.2 [facility] Sodium [Moles/Vol] 140 mmol/L 136-145 [facility] WBC (Bld) [#/Vol] 9.1 10*3/uL 4.4-11.0 [facility] Bilirubin Test strip Ql (U)O rdered By: Dr. Guillen on 02-15-2023 Bilirubin Ql (U) Negative Negative [facility] Blood erythrocytes count (nu mber/volume)Ordered By: Dr. Guillen on 02-15-2023 RBC (Bld) [#/Vol] 5.36 10*6/uL 4.6-6.2 [facility] Blood hemoglobin measurement (mass/volume)Ordered By: Dr. Guillen on 02-15-2023 Hemoglobin (Bld) [Mass/Vol] 15.3 g/dL 13.0-16.5 [facility] Blood lymphocytes/100 leukoc ytesOrdered By: Dr. Guillen on 02-15-2023 Lymphocytes/100 WBC (Bld) 24.8 % 19-41 [facility] Blood monocytes/100 leukocyt esOrdered By: Dr. Guillen on 02-15-2023 Monocytes/100 WBC (Bld) 6.4 % 0-10 [facility] Blood platelet mean volumeOr dered By: Dr. Guillen on 02-15-2023 Platelet mean volume (Bld) [Entitic vol] 11.1 fL 6.2-12.0 [facility] Determination of erythrocyte mean corpuscular volume (MCV)Ordered By: Dr. Guillen on 02-15-2023 MCV (RBC) [Entitic vol] 87.9 fL 80-94 [facility] Hematocrit Auto (Bld) [Volum e fraction]Ordered By: Dr. Guillen on 02-15-2023 Hematocrit (Bld) [Volume fraction] 47.1 % 40-54 [facility] Ketones Test strip Ql (U)Ord ered By: Dr. Guillen on 02-15-2023 Ketones Ql (U) Negative Negative [facility] Laboratory - Chemistry and C hemistry - challengeOrdered By: Dr. Guillen on 02-15-2023 ALP [Catalytic activity/Vol] 96 U/L 45-117 [facility] ALT [Catalytic activity/Vol] 48 U/L 16-61 [facility] CO2 [Moles/Vol] 28.0 mmol/L 21.0-32.0 [facility] Globulin (S) [Mass/Vol] 4.4 g/dL 2.2-4.2 [facility] Lipase [Catalytic activity/Vol] 26 U/L 13-75 [facility] Comment on above: Please note:LIPASE r evised reference range effective 22. New Lipase methodology. Expected to produce lower values than the previous assay method. NEW Reference Range: 13 - 75 U/L Urea nitrogen/Creatinine [Mass ratio] 21.9 mg/mg 10-20 [facility] Laboratory - Hematology and Cell countsOrdered By: Dr. Guillen on 02-15-2023 Erythrocyte distribution width (RBC) [Entitic vol] 48.9 fL 35.1-43.9 [facility] Erythrocyte distribution width (RBC) [Ratio] 15.5 % 11.6-14.6 [facility] Immature granulocytes/100 WBC (Bld) 0.700 % 0.0-0.9 [facility] Comment on above: IG% - Immature Granu locytes (promyelocytes, myelocytes and metamyelocytes) > 1% indicates that a LEFT SHIFT is Present. MCH (RBC) [Entitic mass] 28.5 pg 27.0-32.0 [facility] Nucleated RBC/100 WBC (Bld) [Ratio] 0 % 0-5 [facility] MCHC Auto (RBC) [Mass/Vol]Or dered By: Dr. Guillen on 02-15-2023 MCHC (RBC) [Mass/Vol] 32.5 g/dL 32-36 [facility] Mucus LM Ql (Urine sed)Order ed By: Dr. Guillen on 02-15-2023 Mucus Ql (Urine sed) 0 SEEN /hpf [facility] Nitrite Test strip Ql (U)Ord ered By: Dr. Guillen on 02-15-2023 Nitrite Ql (U) Negative Negative [facility] No Panel InformationOrdered By: Dr. Guillen on 02-15-2023 Estimated Creatinine Clearance Calc 114.89 ml/min [facility] Estimated GFR (MDRD) Amer 154 mL/min >60 [facility] Comment on above: GFR Calc Estimated GFR (MDRD) Non-Af Amer 127 mL/min >60 [facility] Comment on above: Non- GFR Calc Platelets bldOrdered By: Dr. Guillen on 02-15-2023 Platelets (Bld) [#/Vol] 196 10*3/uL 150-450 [facility] Protein Test strip Ql (U)Ord ered By: Dr. Guillen on 02-15-2023 Protein Ql (U) Negative Negative [facility] Serum or plasma albumin gloria urement (mass/volume)Ordered By: Dr. Guillen on 02-15-2023 Albumin [Mass/Vol] 3.4 g/dL 3.2-5.0 [facility] Serum or plasma albumin/glob ulin mass ratioOrdered By: Dr. Guillen on 02-15-2023 Albumin/Globulin [Mass ratio] 0.8 {ratio} 0.9-2.4 [facility] Serum or plasma calcium gloria urement (mass/volume)Ordered By: Dr. Guillen on 02-15-2023 Calcium [Mass/Vol] 8.8 mg/dL 8.5-10.1 [facility] Serum or plasma creatinine m easurement (mass/volume)Ordered By: Dr. Guillen on 02-15-2023 Creatinine [Mass/Vol] 0.73 mg/dL 0.70-1.30 [facility] Comment on above: The validity of the calculated GFR & GFRAA in patients over 70 years has not been determined. Clinical correlation is essential. Serum or plasma urea nitroge n measurement (mass/volume)Ordered By: Dr. Guillen on 02-15-2023 Urea nitrogen [Mass/Vol] 16 mg/dL 7-18 [facility] Squamous epithelial cells de tection in urine sediment by light microscopyOrdered By: Dr. Guillen on 02-15-2023 Epithelial cells.squamous LM Ql (Urine sed) 0 SEEN /hpf 0-5 [facility] Thin prep Papanicolaou smear with manual screeningOrdered By: Dr. Guillen on 02-15-2023 Thin prep Papanicolaou smear with manual screening 24 U/L 15-37 [facility] Thin prep Papanicolaou smear with manual screening 9 5-15 [facility] Urine blood detectionOrdered By: Dr. Guillen on 02-15-2023 RBC Ql (U) Negative Negative [facility] RBC Ql (U) 0 SEEN /hpf 0-5 [facility] Urine clarityOrdered By: Dr. Guillen on 02-15-2023 Clarity (U) Clear Clear [facility] Urine color determinationOrd ered By: Dr. Guillen on 02-15-2023 Color (U) Yellow Yellow [facility] Urine glucose detectionOrder ed By: Dr. Guillen on 02-15-2023 Glucose Ql (U) 1000 mg/dl Normal [facility] Urine leukocyte esterase det ection by dipstickOrdered By: Dr. Guillen on 02-15-2023 Leukocyte esterase Test strip Ql (U) Negative Negative [facility] Urine pHOrdered By: Dr. Kai conklin on 02-15-2023 pH (U) 8.0 [pH] 5.0 - 8.0 [facility] Urine sediment bacteria coun t by microscopy (number/high power field)Ordered By: Dr. Guillen on 02-15-2023 Bacteria LM.HPF (Urine sed) [#/Area] 0 /[HPF] None Seen [facility] Urine specific gravity measu rementOrdered By: Dr. Guillen on 02-15-2023 Specific gravity (U) [Rel density] 1.015 1.002-1.030 [facility] Urobilinogen Auto test strip Ql (U)Ordered By: Dr. Guillen on 02-15-2023 Urobilinogen Ql (U) Normal mg/dl Normal [facility] Basophil percentageOrdered B y: Dr. Roman on 01-30-2023 Bilirubin [Mass/Vol] 0.40 mg/dL 0.20-1.00 [facility] Comment on above: For patients on eltr ombopag therapy, use of Dimension [place] TBIL is not recommended. Chloride [Moles/Vol] 104 mmol/L 98-107 [facility] Cholesterol [Mass/Vol] 180 mg/dL <200 [facility] Comment on above: <200 mg/dL Desirable 200-240 mg/dL Borderline >240 mg/dL High Risk Glucose [Mass/Vol] 177 mg/dL 74-106 [facility] Comment on above: Fasting Glucose resu lt greater than or equal to 126 mg/dL suggests DIABETES MELLITUS per A.D.A. criteria. Potassium [Moles/Vol] 4.0 mmol/L 3.5-5.1 [facility] Protein [Mass/Vol] 7.4 g/dL 6.4-8.2 [facility] Sodium [Moles/Vol] 138 mmol/L 136-145 [facility] Triglyceride [Mass/Vol] 304 mg/dL <199 [facility] Comment on above: The drugs N-Acetylcy steine and Metamizole may falsely depress this assay.Serum Triglycerides Reference Interval Normal <150 mg/dL Borderline high 150 - 199 mg/dL High 200 - 499 mg/dL Very High > or = 500 mg/dL Laboratory - Chemistry and C hemistry - challengeOrdered By: Dr. Roman on 01-30-2023 ALP [Catalytic activity/Vol] 86 U/L 45-117 [facility] ALT [Catalytic activity/Vol] 42 U/L 16-61 [facility] CO2 [Moles/Vol] 26.0 mmol/L 21.0-32.0 [facility] Globulin (S) [Mass/Vol] 4.2 g/dL 2.2-4.2 [facility] Urea nitrogen/Creatinine [Mass ratio] 21.0 mg/mg 10-20 [facility] No Panel InformationOrdered By: Dr. Roman on 01-30-2023 Estimated GFR (MDRD) Amer 171 mL/min >60 [facility] Comment on above: GFR Calc Estimated GFR (MDRD) Non-Af Amer 142 mL/min >60 [facility] Comment on above: Non- GFR Calc Serum or plasma albumin gloria urement (mass/volume)Ordered By: Dr. Roman on 01-30-2023 Albumin [Mass/Vol] 3.2 g/dL 3.2-5.0 [facility] Serum or plasma albumin/glob ulin mass ratioOrdered By: Dr. Roman on 01-30-2023 Albumin/Globulin [Mass ratio] 0.8 {ratio} 0.9-2.4 [facility] Serum or plasma calcium gloria urement (mass/volume)Ordered By: Dr. Roman on 01-30-2023 Calcium [Mass/Vol] 8.5 mg/dL 8.5-10.1 [facility] Serum or plasma cholesterol in HDL measurement (mass/volume)Ordered By: Dr. Roman on 01-30-2023 Cholesterol in HDL [Mass/Vol] 37 mg/dL >40 [facility] Comment on above: The drugs N-Acetylcy steine and Metamizole may falsely depress this assay. Reference Range HDL <40 mg/dL Low HDL Cholesterol HDL >or= 60 mg/dL High HDL Cholesterol Serum or plasma cholesterol in VLDL measurement (mass/volume)Ordered By: Dr. Roman on 01-30-2023 Cholesterol in VLDL [Mass/Vol] 61 mg/dL 5-40 [facility] Serum or plasma creatinine m easurement (mass/volume)Ordered By: Dr. Roman on 01-30-2023 Creatinine [Mass/Vol] 0.67 mg/dL 0.70-1.30 [facility] Comment on above: The validity of the calculated GFR & GFRAA in patients over 70 years has not been determined. Clinical correlation is essential. Serum or plasma low density lipoprotein (LDL) cholesterol measurement (mass/volume)Ordered By: Dr. Roman on 01-30-2023 Cholesterol in LDL [Mass/Vol] 82 mg/dL 0-130 [facility] Serum or plasma urea nitroge n measurement (mass/volume)Ordered By: Dr. Roman on 01-30-2023 Urea nitrogen [Mass/Vol] 14 mg/dL 7-18 [facility] Thin prep Papanicolaou smear with manual screeningOrdered By: Dr. Roman on 01-30-2023 Thin prep Papanicolaou smear with manual screening 28 U/L 15-37 [facility] Thin prep Papanicolaou smear with manual screening 8 5-15 [facility] Absolute lymphocyte counton 02-14-2022 Lymphocytes Auto (Unsp spec) [#/Vol] 0.88 10*3/uL 0.83-4.51 [facility] Work Phone: Basophil percentageon 2021 Lactate [Moles/Vol] 1.7 mmol/L 0.4-2.0 [facility] Work Phone: Bilirubin [Mass/Vol] 0.50 mg/dL 0.20-1.00 [facility] Work Phone: Comment on above: For patients on eltr ombopag therapy, use of Dimension [place] TBIL is not recommended. Chloride [Moles/Vol] 105 mmol/L 98-107 [facility] Work Phone: Glucose [Mass/Vol] 198 mg/dL 74-106 [facility] Work Phone: Comment on above: Fasting Glucose resu lt greater than or equal to 126 mg/dL suggests DIABETES MELLITUS per A.D.A. criteria. Potassium [Moles/Vol] 3.8 mmol/L 3.5-5.1 [facility] Work Phone: Protein [Mass/Vol] 8.0 g/dL 6.4-8.2 [facility] Work Phone: Sodium [Moles/Vol] 139 mmol/L 136-145 [facility] Work Phone: Basophil percentage 0 SEEN /hpf 0-5 [facility] Work Phone: Basophils/100 WBC (Bld) 0.4 % 0-1 [facility] Work Phone: [phone] Eosinophils/100 WBC (Bld) 1.2 % 0-5 [facility] Work Phone: [phone] Neutrophils (Bld) [#/Vol] 9.8 10*3/uL 2.0-7.7 [facility] Work Phone: [phone] Neutrophils/100 WBC (Bld) 85.1 % 47-70 [facility] Work Phone: [phone] WBC (Bld) [#/Vol] 11.6 10*3/uL 4.4-11.0 [facility] Work Phone: Bilirubin Test strip Ql (U)o n 02-14-2022 Bilirubin Ql (U) Negative Negative [facility] Work Phone: Blood erythrocytes count (nu mber/volume)on 02-14-2022 RBC (Bld) [#/Vol] 5.04 10*6/uL 4.6-6.2 [facility] Work Phone: Blood hemoglobin measurement (mass/volume)on 02-14-2022 Hemoglobin (Bld) [Mass/Vol] 14.8 g/dL 13.0-16.5 [facility] Work Phone: [phone] Blood lymphocytes/100 leukoc yteson 02-14-2022 Lymphocytes/100 WBC (Bld) 7.6 % 19-41 [facility] Work Phone: [phone] Blood monocytes/100 leukocyt eson 02-14-2022 Monocytes/100 WBC (Bld) 4.8 % 0-10 [facility] Work Phone: [phone] Blood platelet mean volumeon 02-14-2022 Platelet mean volume (Bld) [Entitic vol] 11.0 fL 6.2-12.0 [facility] Work Phone: Determination of erythrocyte mean corpuscular volume (MCV)on 02-14-2022 MCV (RBC) [Entitic vol] 90.5 fL 80-94 [facility] Work Phone: Hematocrit Auto (Bld) [Volum e fraction]on 02-14-2022 Hematocrit (Bld) [Volume fraction] 45.6 % 40-54 [facility] Work Phone: INR in Blood by Coagulation assayon 02-14-2022 INR Coag (Bld) [Relative time] 1.0 {INR} [facility] Work Phone: Ketones Test strip Ql (U)on 02-14-2022 Ketones Ql (U) Negative Negative [facility] Work Phone: Laboratory - Chemistry and C hemistry - challengeon 02-14-2022 ALP [Catalytic activity/Vol] 96 U/L 45-117 [facility] Work Phone: ALT [Catalytic activity/Vol] 42 U/L 16-61 [facility] Work Phone: CO2 [Moles/Vol] 27.0 mmol/L 21.0-32.0 [facility] Work Phone: Globulin (S) [Mass/Vol] 4.5 g/dL 2.2-4.2 [facility] Work Phone: Urea nitrogen/Creatinine [Mass ratio] 17.0 mg/mg 10-20 [facility] Work Phone: Laboratory - Coagulationon 0 02-14-2022 aPTT Coag (Bld) [Time] 27.7 s 24.1-36.2 reji [facility] [place] [place] Work Phone: PT Coag (PPP) [Time] 13.3 s 11.7-14.9 os [facility] Work Phone: Laboratory - Hematology and Cell countson 02-14-2022 Erythrocyte distribution width (RBC) [Entitic vol] 49.9 fL 35.1-43.9 [facility] Work Phone: Erythrocyte distribution width (RBC) [Ratio] 15.2 % 11.6-14.6 [facility] Work Phone: Immature granulocytes/100 WBC (Bld) 0.900 % 0.0-0.9 [facility] Work Phone: Comment on above: IG% - Immature Granu locytes (promyelocytes, myelocytes and metamyelocytes) > 1% indicates that a LEFT SHIFT is Present. MCH (RBC) [Entitic mass] 29.4 pg 27.0-32.0 [facility] Work Phone: Nucleated RBC/100 WBC (Bld) [Ratio] 0 % 0-5 [facility] Work Phone: MCHC Auto (RBC) [Mass/Vol]on 02-14-2022 MCHC (RBC) [Mass/Vol] 32.5 g/dL 32-36 [facility] Work Phone: Mucus LM Ql (Urine sed)on Mucus Ql (Urine sed) 0 SEEN /hpf [facility] Work Phone: Nitrite Test strip Ql (U)on 02-14-2022 Nitrite Ql (U) Negative Negative [facility] Work Phone: No Panel Informationon 02-14 Estimated Creatinine Clearance Calc 103.28 ml/min [facility] Work Phone: Estimated GFR (MDRD) Amer 134 mL/min >60 [facility] Work Phone: Comment on above: GFR Calc Estimated GFR (MDRD) Non-Af Amer 111 mL/min >60 [facility] Work Phone: Comment on above: Non- GFR Calc Platelets bldon 02-14-2022 Platelets (Bld) [#/Vol] 200 10*3/uL 150-450 [facility] Work Phone: Protein Test strip Ql (U)on 02-14-2022 Protein Ql (U) 15 mg/dl Negative [facility] Work Phone: Serum or plasma albumin gloria urement (mass/volume)on 02-14-2022 Albumin [Mass/Vol] 3.5 g/dL 3.2-5.0 [facility] Work Phone: Serum or plasma albumin/glob ulin mass ratioon 02-14-2022 Albumin/Globulin [Mass ratio] 0.8 {ratio} 0.9-2.4 [facility] Work Phone: Serum or plasma calcium gloria urement (mass/volume)on 02-14-2022 Calcium [Mass/Vol] 8.8 mg/dL 8.5-10.1 [facility] Work Phone: Serum or plasma creatinine m easurement (mass/volume)on 02-14-2022 Creatinine [Mass/Vol] 0.82 mg/dL 0.70-1.30 [facility] Work Phone: Comment on above: The validity of the calculated GFR & GFRAA in patients over 70 years has not been determined. Clinical correlation is essential. Serum or plasma urea nitroge n measurement (mass/volume)on 02-14-2022 Urea nitrogen [Mass/Vol] 14 mg/dL 7-18 [facility] Work Phone: Squamous epithelial cells de tection in urine sediment by light microscopyon 02-14-2022 Epithelial cells.squamous LM Ql (Urine sed) 0 SEEN /hpf 0-5 [facility] Work Phone: Thin prep Papanicolaou smear with manual screeningon 02-14-2022 Thin prep Papanicolaou smear with manual screening 26 U/L 15-37 [facility] Work Phone: Thin prep Papanicolaou smear with manual screening 7 5-15 [facility] Work Phone: Urine blood detectionon 01-23 RBC Ql (U) Negative Negative [facility] Work Phone: RBC Ql (U) 0 SEEN /hpf 0-5 [facility] Work Phone: Urine clarityon 02-14-2022 Clarity (U) Clear Clear [facility] Work Phone: Urine color determinationon 02-14-2022 Color (U) Yellow Yellow [facility] Work Phone: Urine glucose detectionon Glucose Ql (U) 100 mg/dl Normal [facility] Work Phone: Urine leukocyte esterase det ection by dipstickon 02-14-2022 Leukocyte esterase Test strip Ql (U) Negative Negative [facility] Work Phone: Urine pHon 02-14-2022 pH (U) 6.0 [pH] 5.0 - 8.0 [facility] Work Phone: Urine sediment bacteria coun t by microscopy (number/high power field)on 02-14-2022 Bacteria LM.HPF (Urine sed) [#/Area] 0 /[HPF] None Seen [facility] Work Phone: Urine specific gravity measu rementon 02-14-2022 Specific gravity (U) [Rel density] 1.010 1.002-1.030 [facility] Work Phone: Urobilinogen Auto test strip Ql (U)on 02-14-2022 Urobilinogen Ql (U) Normal mg/dl Normal [facility] Work Phone: Culture, urine Bacteria identified Cx Nom (U) Proteus mirabilis [facility] Work Phone: Laboratory - Microbiology an d Antimicrobial susceptibility Bacteria identified Cx Nom (Bld) No growth in 5 days. [facility] Work Phone: No Panel Information SARS-CoV-2 & FLU Antigen (Rapid) [facility] Work Phone: Vital Signs Date Time Vital Sign Value Performing Clinician Facility 05-29-2025 12:01-0400 Body height 162.56 cm Flaco Guadalupe MD [facility] 05-29-2025 12:01-0400 Body mass index (BMI) [Ratio] 58.18 kg/m2 Flaco Guadalupe MD [facility] 05-29-2025 12:01-0400 Body weight 153.77 kg Flaco Guadalupe MD [facility] 04-23-2025 18:45-0400 Body temperature 97.6 [degF] Dr. Aliza Roman MD Work Phone: [facility] 04-23-2025 18:45-0400 Diastolic blood pressure 82 mm[Hg] Dr. Aliza Roman MD Work Phone: [facility] 04-23-2025 18:45-0400 Heart rate 87 /min Dr. Aliza Roman MD Work Phone: [facility] 04-23-2025 18:45-0400 Respiratory rate 15 /min Dr. Aliza Roman MD Work Phone: [facility] 04-23-2025 18:45-0400 SaO2% (BldA) [Mass fraction] 99 % Dr. Aliza Roman MD Work Phone: [facility] 04-23-2025 18:45-0400 Systolic blood pressure 124 mm[Hg] Dr. Aliza Roman MD Work Phone: [facility] 04-23-2025 16:30-0400 Body height 162.[address] Aliza Roman MD Work Phone: [facility] 04-23-2025 16:30-0400 Body mass index (BMI) [Ratio] 59.4 kg/m2 Dr. Aliza Roman MD Work Phone: [facility] 04-23-2025 16:30-0400 Body weight 157.[address] Aliza Roman MD Work Phone: [facility] 02-06-2025 13:03-0400 Body height 162.[address] Aliza Roman MD Work Phone: [facility] 02-06-2025 13:03-0400 Body mass index (BMI) [Ratio] 61.1 kg/m2 Dr. Aliza Roman MD Work Phone: [facility] 02-06-2025 13:03-0400 Body weight 161.[address] Aliza Roman MD Work Phone: [facility] 02-06-2025 13:03-0400 Diastolic blood pressure 85 mm[Hg] Dr. Aliza Roman MD Work Phone: [facility] 02-06-2025 13:03-0400 Heart rate 85 /min Dr. Aliza Roman MD Work Phone: [facility] 02-06-2025 13:03-0400 SaO2% (BldA) [Mass fraction] 93 % Dr. Aliza Roman MD Work Phone: [facility] 02-06-2025 13:03-0400 Systolic blood pressure 140 mm[Hg] Dr. Aliza Roman MD Work Phone: [facility] 01-23-2025 08:20-0400 Body mass index (BMI) [Ratio] 60.4 kg/m2 Dr. Aliza Roman MD Work Phone: [facility] 01-23-2025 08:20-0400 Body temperature 97.8 [degF] Dr. Aliza Roman MD Work Phone: [facility] 01-23-2025 08:20-0400 Body weight 159.[address] Aliza Roman MD Work Phone: [facility] 01-23-2025 08:20-0400 Diastolic blood pressure 70 mm[Hg] Dr. Aliza Roman MD Work Phone: [facility] 01-23-2025 08:20-0400 Heart rate 84 /min Dr. Aliza Roman MD Work Phone: [facility] 01-23-2025 08:20-0400 Inhaled oxygen flow rate 2 L/min Dr. Aliza Roman MD Work Phone: [facility] 01-23-2025 08:20-0400 Respiratory rate 22 /min Dr. Aliza Roman MD Work Phone: [facility] 01-23-2025 08:20-0400 SaO2% (BldA) [Mass fraction] 95 % Dr. Aliza Roman MD Work Phone: [facility] 01-23-2025 08:20-0400 Systolic blood pressure 118 mm[Hg] Dr. Aliza Roman MD Work Phone: [facility] 01-09-2025 09:00-0400 Body temperature 98 [degF] Dr. Aliza Roman MD Work Phone: [facility] 01-09-2025 09:00-0400 Diastolic blood pressure 87 mm[Hg] Dr. Aliza Roman MD Work Phone: [facility] 01-09-2025 09:00-0400 Heart rate 85 /min Dr. Aliza Roman MD Work Phone: [facility] 01-09-2025 09:00-0400 Respiratory rate 16 /min Dr. Aliza Roman MD Work Phone: [facility] 01-09-2025 09:00-0400 SaO2% (BldA) [Mass fraction] 98 % Dr. Aliza Roman MD Work Phone: [facility] 01-09-2025 09:00-0400 Systolic blood pressure 154 mm[Hg] Dr. Aliza Roman MD Work Phone: [facility] 01-09-2025 08:35-0400 Body temperature 98 [degF] Dr. Aliza Roman MD Work Phone: [facility] 01-09-2025 08:35-0400 Diastolic blood pressure 87 mm[Hg] Dr. Aliza Roman MD Work Phone: [facility] 01-09-2025 08:35-0400 Heart rate 85 /min Dr. Aliza Roman MD Work Phone: [facility] 01-09-2025 08:35-0400 Respiratory rate 16 /min Dr. Aliza Roman MD Work Phone: [facility] 01-09-2025 08:35-0400 SaO2% (BldA) [Mass fraction] 96 % Dr. Aliza Roman MD Work Phone: [facility] 01-09-2025 08:35-0400 Systolic blood pressure 154 mm[Hg] Dr. Aliza Roman MD Work Phone: [facility] 01-09-2025 06:48-0400 Body height 162.[address] Aliza Roman MD Work Phone: [facility] 01-09-2025 06:48-0400 Body mass index (BMI) [Ratio] 60.1 kg/m2 Dr. Aliza Roman MD Work Phone: [facility] 01-09-2025 06:48-0400 Body weight [address] Aliza Roman MD Work Phone: [facility] 12-19-2024 13:26-0400 Body mass index (BMI) [Ratio] 59.7 kg/m2 Dr. Aliza Roman MD Work Phone: [facility] 12-19-2024 13:26-0400 Body weight 157.[address] Aliza Roman MD Work Phone: [facility] 12-19-2024 13:26-0400 Diastolic blood pressure 82 mm[Hg] Dr. Aliza Roman MD Work Phone: [facility] 12-19-2024 13:26-0400 Heart rate 81 /min Dr. Aliza Roman MD Work Phone: [facility] 12-19-2024 13:26-0400 SaO2% (BldA) [Mass fraction] 93 % Dr. Aliza Roman MD Work Phone: [facility] 12-19-2024 13:26-0400 Systolic blood pressure 141 mm[Hg] Dr. Aliza Roman MD Work Phone: [facility] 11-27-2024 13:21-0400 Body temperature 98.4 [degF] Dr. Aliza Roman MD Work Phone: [facility] 11-27-2024 13:21-0400 Diastolic blood pressure 69 mm[Hg] Dr. Aliza Roman MD Work Phone: [facility] 11-27-2024 13:21-0400 Heart rate 81 /min Dr. Aliza Roman MD Work Phone: [facility] 11-27-2024 13:21-0400 Respiratory rate 16 /min Dr. Aliza Roman MD Work Phone: [facility] 11-27-2024 13:21-0400 SaO2% (BldA) [Mass fraction] 94 % Dr. Aliza Roman MD Work Phone: [facility] 11-27-2024 13:21-0400 Systolic blood pressure 131 mm[Hg] Dr. Aliza Roman MD Work Phone: [facility] 11-27-2024 11:01-0400 Body height 162.[address] Aliza Roman MD Work Phone: [facility] 11-27-2024 11:01-0400 Body mass index (BMI) [Ratio] 60.9 kg/m2 Dr. Aliza Roman MD Work Phone: [facility] 11-27-2024 11:01-0400 Body weight [address] Aliza Roman MD Work Phone: [facility] 10-28-2024 12:49-0500 Body height 162.[address] Aliza Roman MD Work Phone: [facility] 10-28-2024 12:49-0500 Body temperature 98.1 [degF] Dr. lAiza Roman MD Work Phone: 1(148)[phone] [place] [address] 10-28-2024 12:49-0500 Diastolic blood pressure 102 mm[Hg] Dr. Aliza Roman MD Work Phone: 9(675)130-699[address] [place] [address] 10-28-2024 12:49-0500 Heart rate 105 /min Dr. Aliza Roman MD Work Phone: 8(286)576-190569 [place] [address] 10-28-2024 12:49-0500 Respiratory rate 16 /min Dr. Aliza Roman MD Work Phone: 9(377)826-261669 [place] [address] 10-28-2024 12:49-0500 SaO2% (BldA) [Mass fraction] 94 % Dr. Aliza Roman MD Work Phone: 9(402)283-966469 [place] [address] 10-28-2024 12:49-0500 Systolic blood pressure 153 mm[Hg] Dr. Aliza Roman MD Work Phone: [facility] 08-29-2024 13:50-0500 Diastolic blood pressure 105 mm[Hg] Dr. Aliza Roman MD Work Phone: [facility] 08-29-2024 13:50-0500 Systolic blood pressure 167 mm[Hg] Dr. Aliza Roman MD Work Phone: [facility] 08-29-2024 11:34-0500 Body temperature 98.1 [degF] Dr. Aliza Roman MD Work Phone: [facility] 08-29-2024 11:34-0500 Heart rate 96 /min Dr. Aliza Roman MD Work Phone: [facility] 08-29-2024 11:34-0500 Respiratory rate 16 /min Dr. Aliza Roman MD Work Phone: [facility] 08-29-2024 11:34-0500 SaO2% (BldA) [Mass fraction] 96 % Dr. Aliza Roman MD Work Phone: [facility] 08-29-2024 10:14-0500 Body mass index (BMI) [Ratio] 57.6 kg/m2 Dr. Aliza Roman MD Work Phone: [facility] 08-29-2024 10:14-0500 Body weight 152.[address] Aliza Roman MD Work Phone: [facility] 12-23-2023 22:37-0400 Body temperature 98.5 [degF] Dr. Aliza Roman Work Phone: [facility] 12-23-2023 22:37-0400 Diastolic blood pressure 76 mm[Hg] Dr. Aliza Roman Work Phone: [facility] 12-23-2023 22:37-0400 Heart rate 76 /min Dr. Aliza Roman Work Phone: [facility] 12-23-2023 22:37-0400 Respiratory rate 18 /min Dr. Aliza Roman Work Phone: [facility] 12-23-2023 22:37-0400 SaO2% (BldA) [Mass fraction] 94 % Dr. Aliza Roman Work Phone: [facility] 12-23-2023 22:37-0400 Systolic blood pressure 126 mm[Hg] Dr. Aliza Roman Work Phone: [facility] 12-23-2023 19:06-0400 Body mass index (BMI) [Ratio] 60 kg/m2 Dr. Aliza Roman Work Phone: [facility] 12-23-2023 19:06-0400 Body weight 158.[address] Aliza Roman Work Phone: [facility] 12-23-2023 17:08-0400 Body height 162.[address] Aliza Roman Work Phone: [facility] 12-19-2023 00:54-0400 Diastolic blood pressure 96 mm[Hg] Dr. Aliza Roman Work Phone: [facility] 12-19-2023 00:54-0400 Heart rate 99 /min Dr. Aliza Roman Work Phone: [facility] 12-19-2023 00:54-0400 Respiratory rate 20 /min Dr. Aliza Roman Work Phone: [facility] 12-19-2023 00:54-0400 SaO2% (BldA) [Mass fraction] 91 % Dr. Aliza Roman Work Phone: [facility] 12-19-2023 00:54-0400 Systolic blood pressure 128 mm[Hg] Dr. Aliza Roman Work Phone: [facility] 12-18-2023 22:28-0400 Body height 162.[address] Aliza Roman Work Phone: [facility] 12-18-2023 22:28-0400 Body mass index (BMI) [Ratio] 58.1 kg/m2 Dr. Aliza Roman Work Phone: [facility] 12-18-2023 22:28-0400 Body temperature 98.4 [degF] Dr. Aliza Roman Work Phone: [facility] 12-18-2023 22:28-0400 Body weight 153.[address] Aliza Roman Work Phone: [facility] 12-05-2023 14:42-0400 Body temperature 97.9 [degF] Dr. Aliza Roman Work Phone: [facility] 12-05-2023 14:42-0400 Diastolic blood pressure 84 mm[Hg] Dr. Aliza Roman Work Phone: [facility] 12-05-2023 14:42-0400 Heart rate 86 /min Dr. Aliza Roman Work Phone: [facility] 12-05-2023 14:42-0400 Respiratory rate 20 /min Dr. Aliza Roman Work Phone: [facility] 12-05-2023 14:42-0400 SaO2% (BldA) [Mass fraction] 95 % Dr. Aliza Roman Work Phone: [facility] 12-05-2023 14:42-0400 Systolic blood pressure 162 mm[Hg] Dr. Aliza Roman Work Phone: [facility] 12-05-2023 11:03-0400 Body height 162.[address] Aliza Roman Work Phone: [facility] 11-23-2023 08:19-0400 Body mass index (BMI) [Ratio] 56.9 kg/m2 Dr. Aliza Roman Work Phone: [facility] 11-23-2023 08:19-0400 Body temperature 97.5 [degF] Dr. Aliza Roman Work Phone: [facility] 11-23-2023 08:19-0400 Body weight 150.[address] Aliza Roman Work Phone: [facility] 11-23-2023 08:19-0400 Diastolic blood pressure 83 mm[Hg] Dr. Aliza Roman Work Phone: [facility] 11-23-2023 08:19-0400 Heart rate 96 /min Dr. Aliza Roman Work Phone: [facility] 11-23-2023 08:19-0400 Inhaled oxygen flow rate 2 L/min Dr. Aliza Roman Work Phone: [facility] 11-23-2023 08:19-0400 Respiratory rate 20 /min Dr. Aliza Roman Work Phone: [facility] 11-23-2023 08:19-0400 SaO2% (BldA) [Mass fraction] 94 % Dr. Aliza Roman Work Phone: [facility] 11-23-2023 08:19-0400 Systolic blood pressure 131 mm[Hg] Dr. Aliza Roman Work Phone: [facility] 08-31-2023 10:46-0500 Body height 162.[address] Aliza Roman Work Phone: [facility] 08-31-2023 10:46-0500 Body mass index (BMI) [Ratio] 58.7 kg/m2 Dr. Aliza Roman Work Phone: [facility] 08-31-2023 10:46-0500 Body weight 155.[address] Aliza Roman Work Phone: [facility] 07-23-2023 06:22-0500 Body mass index (BMI) [Ratio] 57.3 kg/m2 Dr. Aliza Roman Work Phone: [facility] 07-23-2023 06:22-0500 Body temperature 97.3 [degF] Dr. Aliza Roman Work Phone: [facility] 07-23-2023 06:22-0500 Body weight 151.[address] Aliza Roman Work Phone: [facility] 07-23-2023 06:22-0500 Diastolic blood pressure 82 mm[Hg] Dr. Aliza Roman Work Phone: [facility] 07-23-2023 06:22-0500 Heart rate 105 /min Dr. Aliza Roman Work Phone: [facility] 07-23-2023 06:22-0500 Respiratory rate 18 /min Dr. Aliza Roman Work Phone: [facility] 07-23-2023 06:22-0500 SaO2% (BldA) [Mass fraction] 93 % Dr. Aliza Roman Work Phone: [facility] 07-23-2023 06:22-0500 Systolic blood pressure 130 mm[Hg] Dr. Aliza Roman Work Phone: [facility] 02-15-2023 10:05-0400 Body height 162.[address] Aliza Roman Work Phone: [facility] 02-15-2023 10:05-0400 Body mass index (BMI) [Ratio] 57.4 kg/m2 Dr. Aliza Roman Work Phone: [facility] 02-15-2023 10:05-0400 Body temperature 97.9 [degF] Dr. Aliza Roman Work Phone: [facility] 02-15-2023 10:05-0400 Body weight 151.[address] Aliza Roman Work Phone: [facility] 02-15-2023 10:05-0400 Diastolic blood pressure 95 mm[Hg] Dr. Aliza Roman Work Phone: [facility] 02-15-2023 10:05-0400 Heart rate 96 /min Dr. Aliza Roman Work Phone: [facility] 02-15-2023 10:05-0400 Respiratory rate 16 /min Dr. Aliza Roman Work Phone: [facility] 02-15-2023 10:05-0400 SaO2% (BldA) [Mass fraction] 94 % Dr. Aliza Roman Work Phone: [facility] 02-15-2023 10:05-0400 Systolic blood pressure 135 mm[Hg] Dr. Aliza Roman Work Phone: [facility] 01-13-2023 13:03-0400 Body height 162.[address] Aliza Roman Work Phone: [facility] 01-13-2023 13:03-0400 Body temperature 98 [degF] Dr. Aliza Roman Work Phone: [facility] 01-13-2023 13:03-0400 Diastolic blood pressure 95 mm[Hg] Dr. Aliza Roman Work Phone: [facility] 01-13-2023 13:03-0400 Heart rate 100 /min Dr. Aliza Roman Work Phone: [facility] 01-13-2023 13:03-0400 Respiratory rate 16 /min Dr. Aliza Roman Work Phone: [facility] 01-13-2023 13:03-0400 SaO2% (BldA) [Mass fraction] 96 % Dr. Aliza Roman Work Phone: [facility] 01-13-2023 13:03-0400 Systolic blood pressure 152 mm[Hg] Dr. Aliza Roman Work Phone: [facility] 01-05-2023 07:46-0400 Body mass index (BMI) [Ratio] 56.8 kg/m2 Dr. Aliza Roman Work Phone: [facility] 01-05-2023 07:46-0400 Body temperature 97.6 [degF] Dr. Aliza Roman Work Phone: [facility] 01-05-2023 07:46-0400 Body weight 150.[address] Aliza Roman Work Phone: [facility] 01-05-2023 07:46-0400 Diastolic blood pressure 84 mm[Hg] Dr. Aliza Roman Work Phone: [facility] 01-05-2023 07:46-0400 Heart rate 106 /min Dr. Aliza Roman Work Phone: [facility] 01-05-2023 07:46-0400 Inhaled oxygen flow rate 2 L/min Dr. Aliza Roman Work Phone: [facility] 01-05-2023 07:46-0400 Respiratory rate 18 /min Dr. Aliza Roman Work Phone: [facility] 01-05-2023 07:46-0400 SaO2% (BldA) [Mass fraction] 94 % Dr. Aliza Roman Work Phone: [facility] 01-05-2023 07:46-0400 Systolic blood pressure 142 mm[Hg] Dr. Aliza Roman Work Phone: [facility] 05-02-2022 21:59-0400 Diastolic blood pressure 84 mm[Hg] Dr. Aliza Roman Work Phone: [facility] Work Phone: 05-02-2022 21:59-0400 Heart rate 88 /min Dr. Aliza Roman Work Phone: [facility] Work Phone: 05-02-2022 21:59-0400 Respiratory rate 49 /min Dr. Aliza Roman Work Phone: [facility] Work Phone: 05-02-2022 21:59-0400 SaO2% (BldA) [Mass fraction] 98 % Dr. Aliza Roman Work Phone: [facility] Work Phone: 05-02-2022 21:59-0400 Systolic blood pressure 142 mm[Hg] Dr. Aliza Roman Work Phone: [facility] Work Phone: 05-02-2022 21:07-0400 Body temperature 97.7 [degF] Dr. Aliza Roman Work Phone: [facility] Work Phone: 05-02-2022 21:05-0400 Body height 162.[address] Aliza Roman Work Phone: [facility] Work Phone: 05-02-2022 21:05-0400 Body mass index (BMI) [Ratio] 60.5 kg/m2 Dr. Aliza Roman Work Phone: [facility] Work Phone: 05-02-2022 21:05-0400 Body weight 159.[address] Aliza Roman Work Phone: [facility] Work Phone: 02-27-2022 07:56-0400 Body mass index (BMI) [Ratio] 59.5 kg/m2 Dr. Aliza Roman Work Phone: [facility] Work Phone: 02-27-2022 07:56-0400 Body temperature 98.7 [degF] Dr. Aliza Roman Work Phone: [facility] Work Phone: 02-27-2022 07:56-0400 Body weight 157.[address] Aliza Roman Work Phone: [facility] Work Phone: 02-27-2022 07:56-0400 Diastolic blood pressure 81 mm[Hg] Dr. Aliza Roman Work Phone: [facility] Work Phone: 02-27-2022 07:56-0400 Heart rate 86 /min Dr. Aliza Roman Work Phone: [facility] Work Phone: 02-27-2022 07:56-0400 Inhaled oxygen flow rate 2 L/min Dr. Aliza Roman Work Phone: [facility] Work Phone: 02-27-2022 07:56-0400 Respiratory rate 20 /min Dr. Aliza Roman Work Phone: [facility] Work Phone: 02-27-2022 07:56-0400 SaO2% (BldA) [Mass fraction] 96 % [facility] [facility] Work Phone: 02-27-2022 07:56-0400 Systolic blood pressure 147 mm[Hg] Dr. Aliza Roman Work Phone: [facility] Work Phone: 02-14-2022 18:46-0400 Body temperature 97.9 [degF] Dr. Aliza Roman Work Phone: [facility] Work Phone: 02-14-2022 18:46-0400 Diastolic blood pressure 60 mm[Hg] Dr. Aliza Roman Work Phone: [facility] Work Phone: 02-14-2022 18:46-0400 Heart rate 107 /min Dr. Aliza Roman Work Phone: [facility] Work Phone: 02-14-2022 18:46-0400 Respiratory rate 20 /min Dr. Aliza Roman Work Phone: [facility] Work Phone: 02-14-2022 18:46-0400 SaO2% (BldA) [Mass fraction] 94 % Dr. Aliza Roman Work Phone: [facility] Work Phone: 02-14-2022 18:46-0400 Systolic blood pressure 92 mm[Hg] Dr. Aliza Roman Work Phone: [facility] Work Phone: 02-14-2022 15:03-0400 Inhaled oxygen flow rate 2 L/min Dr. Aliza Roman Work Phone: [facility] Work Phone: 02-14-2022 12:35-0400 Body height 162.[address] Aliza Roman Work Phone: [facility] Work Phone: 02-14-2022 12:35-0400 Body mass index (BMI) [Ratio] 60 kg/m2 Dr. Aliza Roman Work Phone: [facility] Work Phone: 02-14-2022 12:35-0400 Body weight 158.[address] Aliza Roman Work Phone: [facility] Work Phone: 12-02-2021 13:46-0400 Body mass index (BMI) [Ratio] 59.1 kg/m2 Dr. Aliza Roman Work Phone: [facility] Work Phone: 12-02-2021 13:46-0400 Body weight 156.[address] Aliza Roman Work Phone: [facility] Work Phone: 10-17-2021 06:25-0500 Body mass index (BMI) [Ratio] 59.7 kg/m2 Dr. Aliza Roman Work Phone: [facility] Work Phone: 10-17-2021 06:25-0500 Body temperature 97.5 [degF] Dr. Aliza Roman Work Phone: [facility] Work Phone: 10-17-2021 06:25-0500 Body weight 157.[address] Aliza Roman Work Phone: [facility] Work Phone: 10-17-2021 06:25-0500 Diastolic blood pressure 83 mm[Hg] Dr. Aliza Roman Work Phone: [facility] Work Phone: 10-17-2021 06:25-0500 Heart rate 89 /min Dr. Aliza Roman Work Phone: [facility] Work Phone: 10-17-2021 06:25-0500 Respiratory rate 18 /min Dr. Aliza Roman Work Phone: [facility] Work Phone: 10-17-2021 06:25-0500 SaO2% (BldA) [Mass fraction] 95 % Dr. Aliza Roman Work Phone: [facility] Work Phone: 10-17-2021 06:25-0500 Systolic blood pressure 145 mm[Hg] Dr. Aliza Roman Work Phone: [facility] Work Phone: Encounters Encounter Date Encounter Type Care Provider Facility Start: 06-12-2025 End: 06-12-2025 ambulatory Carlos Fred Facility:[facility] Start: 06-02-2025 End: 06-02-2025 Encounter identifier Flaco Guadalupe Work Phone: [facility] Start: 06-02-2025 ambulatory Flaco Guadalupe [facility] Start: 05-29-2025 End: 05-29-2025 Office outpatient new 45 minutes Bobby Mas Work Phone: [facility] Start: 05-29-2025 ambulatory Bobby JONES [facility] Start: 04-23-2025 End: 04-23-2025 Emergency department patient visit Dr. Aliza Roman MD Work Phone: -Emergency Department Work Phone: Start: 02-06-2025 End: 02-06-2025 Patient encounter procedure Lesvia Russo GRANT OFFICER-C -[facility] Work Phone: Start: 02-06-2025 End: 02-06-[address] Aliza Roman MD Work Phone: [facility] Work Phone: Start: 01-23-2025 End: 01-23-2025 Patient encounter procedure Dania Norris GRANT OFFICER-C [facility] Work Phone: Start: 01-23-2025 End: 01-23-[address] Aliza Roman MD Work Phone: [facility] Work Phone: Start: 01-09-2025 End: 01-09-2025 Admission to same day surgery center Dr. Carlos Ibarra MD -[facility] Start: 01-09-2025 End: 01-09-[address] Aliza Roman MD Work Phone: [facility] Work Phone: Start: 12-19-2024 End: 12-19-2024 Patient encounter procedure Lesvia Russo GRANT OFFICER-C -[facility] Work Phone: Start: 12-19-2024 End: 12-19-2024 ambulatory Aliza Roman Facility:[facility] Start: 11-27-2024 End: 11-27-2024 Emergency department patient visit Dr. Aliza Roman MD Work Phone: -Emergency Department Work Phone: Start: 10-28-2024 End: 10-28-2024 Emergency department patient visit Dr. Aliza Roman MD Work Phone: -Emergency Department Work Phone: Start: 09-21-2024 End: 09-21-[address] Aliza Roman MD -Laboratory, [place] Work Phone: Start: 09-21-2024 End: 09-21-2024 ambulatory Aliza Roman Facility:[facility] Start: 08-29-2024 ambulatory Carlos Ibarra Facilit y:[facility] Start: 08-29-2024 End: 08-29-2024 Admission to same day surgery center Dr. Carlos Ibarra MD -[facility] Start: 08-29-2024 End: 08-29-2024 ambulatory Carlos Ibarra Facility:[facility] Start: 02-02-2024 End: 02-02-2024 ambulatory KAILA PFEIFFER OCCUPATIONAL THERAPY ASSISTANT-METEOROLOGICAL OBSERVER Facility:[facility] Start: 02-02-2024 End: 02-02-2024 Patient encounter procedure KAILA PFEIFFER OCCUPATIONAL THERAPY ASSISTANT-METEOROLOGICAL OBSERVER [facility] Start: 01-19-2024 End: 01-19-2024 ambulatory KAILA PFEIFFER OCCUPATIONAL THERAPY ASSISTANT-METEOROLOGICAL OBSERVER Facility:[facility] Start: 01-19-2024 End: 01-19-2024 Patient encounter procedure KAILA PFEIFFER OCCUPATIONAL THERAPY ASSISTANT-METEOROLOGICAL OBSERVER [facility] Start: 12-23-2023 End: 12-23-2023 Emergency department patient visit Dr. Aliza Roman Work Phone: [facility]-Emergency Department Work Phone: Start: 12-18-2023 End: 12-19-2023 Emergency department patient visit Dr. Aliza Roman Work Phone: [facility]-Emergency Department Work Phone: Start: 12-05-2023 End: 12-05-2023 Emergency department patient visit Dr. Aliza Roman Work Phone: [facility]-Emergency Department Work Phone: Start: 11-23-2023 End: 11-23-[address] Aliza Roman Work Phone: [facility] Work Phone: Start: 11-19-2023 End: 11-19-2023 ambulatory DENNY STEVENS Facility:[facility] Start: 11-16-2023 End: 11-16-2023 ambulatory DENNY STEVENS Facility:[facility] Start: 11-16-2023 End: 11-16-2023 Subsequent hospital visit by physician [facility] Work Phone: Radiology Comment on above: Pain [R52] Start: 10-30-2023 End: 10-30-[address] Aliza Roman Work Phone: [facility] Work Phone: Start: 10-30-2023 End: 10-30-[address] Aliza Roman Work Phone: [facility]-Radiology, [facility] Work Phone: Start: 10-13-2023 Orders Only Torito Mccormick Work Phone: [facility] Comment on above: Pain (Primary Dx) Pain in left hip (Pr imary Dx) Start: 10-06-2023 End: 10-06-2023 ambulatory SIMIN HENDRIX Facility:[facility] Start: 10-06-2023 End: 10-06-2023 ambulatory SIMIN HENDRIX Facility:[facility] Start: 10-06-2023 End: 10-06-2023 Patient encounter procedure Simin Hendrix Work Phone: Podiatry Comment on above: Onychomycosis (Prima ry Dx); Pain in toe of left foot; Pain in toe of right foot; Callus of foot Start: 10-06-2023 End: 10-06-2023 Subsequent hospital visit by physician Xr [facility] Work Phone: Radiology Comment on above: Pain [R52] Start: 09-10-2023 End: 09-10-[address] Aliza Roman Work Phone: [facility]-Laboratory Work Phone: Start: 09-03-2023 End: 09-03-[address] Aliza Roman Work Phone: [facility] Work Phone: Start: 09-03-2023 End: 09-03-[address] Aliza Roman Work Phone: [facility]-Laboratory Work Phone: Start: 08-31-2023 End: 08-31-[address] Aliza Roman Work Phone: [facility] Work Phone: Start: 07-23-2023 End: 07-23-[address] Aliza Roman Work Phone: [facility]-Pulmonary Medicine [facility] Work Phone: Start: 02-15-2023 End: 02-15-2023 Emergency department patient visit Dr. Aliza Roman Work Phone: [facility]-Emergency Department Start: 02-02-2023 End: 02-02-[address] Aliza Roman Work Phone: [facility] Work Phone: Start: 02-02-2023 End: 02-02-[address] Aliza Roman Work Phone: [facility] Start: 01-30-2023 End: 01-30-[address] Aliza Roman Work Phone: [facility]-Laboratory Start: 01-21-2023 End: 01-21-[address] Aliza Roman Work Phone: [facility] Start: 01-13-2023 End: 01-13-2023 Emergency department [facility] Start: 01-05-2023 End: 01-05-[address] Aliza Roman Work Phone: [facility] Start: 05-02-2022 End: 05-02-2022 Emergency department patient [facility] Start: 02-27-2022 End: 02-27-[address] Aliza Roman Work Phone: [facility] Start: 02-14-2022 End: 02-14-2022 Emergency department patient [facility] Start: 12-02-2021 End: 12-02-[address] Aliza Roman Work Phone: [facility] Start: 10-17-2021 End: 10-17-[address] Aliza Roman Work Phone: [facility] Start: 10-10-2021 End: 10-10-2021 Patient encounter procedure TONNY SONG MD [facility] Procedures Date Procedure Procedure Detail Performing Clinician Start: 05-29-2025 End: 05-29-2025 Radiologic examination pelvis 1/2 views Bobby Mas Start: 04-23-2025 Plain x-ray of pelvi [...] Aliza Roman Work Phone: H/O: surgery S/P NEW ACCOUNTS REPRESENTATIVE shunt Dr. Aliza balderas Work Phone: SARS-CoV-2 & FLU Ant igen (Rapid) Dr. 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 Aliza aly Work Phone: Plan of Treatment Date Care Activity Detail Author Start: 08-07-2025 Donna Rodriges [facility] Work Phone: Start: 04-23-2025 [facility] Start: 01-09-2025 Arthrocentesis aspir&/inj major jt/bursa w/o us DRAIN/INJ JOINT/BURSA W/O US [facility] Start: 01-09-2025 Fluoroscopic guidance [facility] Start: 01-09-2025 Patient discharge [facility] Start: 11-27-2024 [facility] Start: 11-27-2024 [facility] Start: 10-28-2024 [facility] Start: 08-29-2024 Arthrocentesis aspir&/inj major jt/bursa w/o us DRAIN/INJ JOINT/BURSA W/O US [facility] Start: 08-29-2024 Patient discharge [facility] Start: 12-23-2023 [facility] Start: 12-19-2023 [facility] Start: 12-05-2023 [facility] Start: 09-03-2023 Procedure [facility] Start: 08-31-2023 Patient referral [facility] Work Phone: Start: 08-24-2023 Depression Assessment Depression Ass essment [facility] Start: 04-24-2023 Covid-19 Vaccine ( season) Covid-19 Vaccine ( season) [facility] Start: 05-02-2022 Plain x-ray of hand Hand Min 3 Views [facility] Work Phone: Start: 05-02-2022 XR Hand GE 3 Views [facility] Work Phone: Start: 02-14-2022 End: 02-14-2022 [facility] Work Phone: Start: 02-14-2022 End: 02-14-2022 Blood culture [facility] Work Phone: Start: 01-27-2015 Pneumococcal vaccination Pneum ococcal Vaccine (2 of 2 - PCV) [facility] Start: 2003 Hepatitis B Vaccine (1 of 3 - 19+ 3-dose series) Hepatitis B Vaccine (1 of 3 - 19+ 3-dose series) [facility] Start: 2003 Urine microalbumin profile DTaP,Tdap,Td Vaccine (1 - Tdap) [facility] Start: 2002 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 Disease Visit Annual PCP Team Chronic Disease Visit [facility] Start: 2002 Hepatitis B surface antibody level LDL Cholesterol [facility] Start: 2002 Hepatitis C screening Hepatitis C Sc reening [facility] Start: 2002 HIV screening HIV Screening [facility] Start: 1994 Diabetic foot examination Diabetic Foot Exam [facility] Start: 1994 Glaucoma screening Dilated Retinal E xam [facility] Start: 1994 Hepatitis B screening Urine Albumin:Creatinine Ratio [facility] Start: 1989 Hemoglobin A1c measurement HbA1C [facility] Start: 1984 Hepatitis B Vaccine (1 of 3 - 3-dose series) Hepatitis B Vaccine (1 of 3 - 3-dose series) [facility] Bacteria identified in Blood by Culture Blood Culture [facility] Work Phone: Bacteria identified in Urine by Culture Urine Culture [facility] Work Phone: Blood culture [facility] Work Phone: Patient Education [facility] Work Phone: Patient referral [facility] Work Phone: XR Foot - bilateral AP and Lateral and oblique XR FOOT GENERAL 3V AP/LAT/OBL BILATERAL Radiology Routine Pain 10/06/2023 12:52 PM EST [facility] Work Phone: End: 11-11-2024 XR Pelvis and Hip - left AP and Lateral frog [facility] Work Phone: Comment on above: 1 Occurrences starti ng 10/13/2023 until 11/11/2024 1 Occurrences starti ng 10/14/2023 until 11/11/2024 XR Pelvis and Hip - left AP and Lateral frog XR HIP GENERAL 3V PELV/AP/LAT LEFT Radiology Routine Pain 11/16/2023 10:36 AM EDT [facility] Work Phone: [facility] Work Phone: [facility] Immunizations Immunization Date Immunization Notes Care Provider Dusty burden 12-14-2020 Juliane (Moderna) Dr. Aliza flores Work Phone: [facility] 05-30-[address] Aliza Roman Work Phone: [facility] 05-25-[address] Aliza Roman Work Phone: [facility] 05-24-[address] Aliza Roman Work Phone: [facility] 05-12-[address] Aliza Roman Work Phone: [facility] 05-25-[address] Aliza Roman Work Phone: [facility] 01-27-[address] Byron Roman Work Phone: [facility] Work Phone: 01-27-2014 pneumococcal vaccine , unspecified formulation Dr. Aliza Roman Work Phone: [facility] Payers Date Payer Category Payer Self-pay [id number] 2015 Medicaid [facility] MEDICA[facility] [id number] 2015-Present [phone] [address] [place] [id number] Medicaid [id number] 2015 Medicare [facility] ARE [facility] MEDICARE [id number] 2015-Present [phone] [address] [place] [address] Medicare [id number] 2014 Unknown [id number] 2014 Unknown [id number] 1984 Unknown [id number] 1984 Unknown [id number] 1984 Unknown [id number] Unknown [id number] Unknown [id number] Unknown [id number] Unknown [id number] Unknown [id number] Unknown [id number] Unknown [id number] Unknown [id number] Unknown [id number] Unknown [id number] Unknown [id number] Social History Date Type Detail Facility [facility] Start: 1985 Sex Assigned At Male A [facility] Start: 02-14-2022 End: 12-23-2023 Tobacco smoking status PAIS Unknown if ever smoked [facility] Start: 10-27-2020 None [facility] Start: 10-27-2020 Spouse/ Signif icant Other [facility] Start: 10-27-2020 Non-smoker [facility] Start: 05-16-2014 End: 04-23-2025 Tobacco smoking status NHIS Never smoked tobacco [facility] Start: 05-16-2014 Tobacco use and exposure Smokeless tobacco non-user [facility] Start: 10-06-2023 Alcohol intake Current drinke r of alcohol (finding) [facility] Start: 10-06-2023 History of Social function [facility] Start: 10-06-2023 Tobacco use panel [facility] National Score (1-100), lower number is lower risk 66 [facility] Start: 10-06-2023 Alcohol Comment holidays [facility] Start: 1985 Sex Assigned At Not on file [facility] Start: 10-28-2024 End: 11-27-2024 Sex Male (finding) [facility] Start: 05-29-2025 Alcohol intake Alcohol Use Details [facility] Start: 05-29-2025 Tobacco use and exposure Non-Smoking Tobacco Use Details [facility] Start: 02-28-2025 Sexual Orientation Choose not to disclose [facility] NEGATED: Highlighted rowStart: 05-29-2025 Tobacco smoking status NHIS Never smoker [facility] Goals Date Patient Goal Desired Activity /State Mental Status Date Assessment Result Facility 01-09-2025 Cognitive function Voice/Name [facility] Work Phone: 11-27-2024 Cognitive function Level Of Cons ciousness Awake;Alert;Appropriate;Follow s Commands [facility] Work Phone: 08-29-2024 Cognitive function Voice/Name [facility] Work Phone: 02-14-2022 Cognitive function Level Of Cons ciousness Awake;Alert;Appropriate;Follow s Commands [facility] Work Phone: Clinical Notes 10-06-2023 to 05-29-2025 Note Date & Type Note Facility 05-29-2025 Evaluation note Type assessment assessment [facility] Work Phone: [phone] 298-182910-06-2025 History of Present illness Narrative* Encounter Date Complaint History Of Brandon nt Illness New Hip Patient is here for an evaluation of his left hip. He has been having pain and significant limitations with his hip for quite sometime. He has been limited to a chair to ambulate because of the pain and he is currently on disability for his hip and his other chronic medical conditions but this is mainly for the hip. He has been following pain management for his hip for the last couple of years and has been receiving intra-articular cortisone injections with minimal benefit of his symptoms. The symptoms have been at it's worse for the last 2 years. When he was able to work, he was only able to work a couple hours at a time due to CP and having hip pain. He has been to a couple different Orthopedic physicians and he reports will not "touch" him due to his medical conditions as well as his weight. He has been trying to improve his weight with diet modifications as well as exercises that he tries to do on his own but it's been quite difficult to do anything due to the pain. He reports that he is a diabetic and his last A1C read was of a 6.2. 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 [facility] [place] Work Phone: 1([phone]) 137-339908-31-2025 Discharge summary [facility] Medical Records Department [address] [place] [address] Emergency Department Summary 04/23/25 MR#: [id number] Acct: [id number] Name: DONNA RODRIGES Rep #:[id number] : 1985 39 From: Dre Johnson MD [...] joint. He was asked if he has [id number]. He responded yes. He denies fever, chills [...] similar symptoms: Yes Recent Illness/Hospitalization: No PFSH PFSH Medical History ROBERT treated [...] mg PO BID gout 12/19/24 Unknown History 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,sternman,cont #1 ea 12/19/24 Unknown Rx (FreeStyle Nancy 3 [place]) celecoxib 200 mg capsule 200 mg PO [...] mL 02/06/25 Unknown Rx subcutaneous pen injector (Mounjaro) hydrocodone-acetaminophen 5-325mg 1 tab PO Q6H PRN [...] H/O hernia repair H/O eye surgery S/P NEW ACCOUNTS REPRESENTATIVE shunt Surgical History no surgical history Social [...] to inspection, nondistended, normoactive bowel sounds, non-tender, non- distended and no masses; Negative for hepatosplenomegaly Extremity [...] to lift his leg up off the bed.He does have pain outpatient over the left [...] his pulmonary disease and obstructive sleep apnea, ERvisit November of this year for fall. Also [...] % (Auto) 64.0 Lymph % (Auto) 24.9 [place] % (Auto) 6.6 Eos % (Auto) 3.1 [...] acetabulum in this young patient. Reading Location: [id number] The report by radiologist was reviewed at [...] [facility] and [facility] are reluctant to do [facility] because of his obstructive sleep apnea and body weight. He has de clinedbypass surgery. Patient was treated with opiate analgesics for pain. He is instructed to follow-up with orthopedics because of the significant changes noted since 2022. Discharge Plan Triage Chief Complaint: Lower Extremity Injury ED Provider: Dre Johnson Dx/Rx/DC Orders Clinical Impression: Osteoarthritis of left hip, Type II diabetes mellitus, S/P NEW ACCOUNTS REPRESENTATIVE shunt, Obesity hypoventilation syndrome, Fatty liver disease, nonalcoholic, Obstructive sleep apnea, History of cerebral palsy, Body massindex (BMI) greater than 50 Instructions: ED Osteoarthritis [...] mg PO DAILY (DME) FreeStyle Nancy 3 [place] Misc See Rx Instructions .Route Qty: 1 [...] are [employer] and at [employer] Print Language: Armenian Disposition Disposition: Home, Self Care What to do if you have Problems For any increased pain, shortness of breath, bleeding, nausea or vomiting, chestpain, or any unexpected problems, contact your Primary Care Provider. Call [facility] ([phone]) or report tothe closest Emergency Room. Call 911 if necessary. 04/23/25 1839 Cosigner Signature (if applicable): CC: Dr. Aliza Roman MD ~ Signed [facility]08-31-2025 Radiology Diagnostic study note [facility] Imaging Services [address], [place] [address] HIP, UNI W/ Pelvis 2-3 Views MR#: [id number] Acct: [id number] Name: DONNA RODRIGES Rep #: [id number] : 1985 M 39 From: Fran Meyer MD PCP: Dr. Aliza Roman MD Status: REG ER Study:HIP, UNI W/ Pelvis 2-3 Views Date of Ex am: 04/23/25 Exam# [id number] Ordering Dr: Molina Johnson MD PROCEDURE: HIP, [...] acetabulum in this young patient. Reading Location: [id number] CC: Dr. Aliza Roman MD; Dr. Dre Johnson MD ~ Pallet Stone Positioner: Signed [facility]08-31-2025 Discharge summary Author Dre Johnson [facility] Note Date/Time April 23, 2025 6: 39pm [facility] Medical Records Department [address] [place] [address] Emergency Department Summary 04/23/25 MR#: [id number] Acct: [id number] Name: DONNA RODRIGES Rep #:[id number] : 1985 39 From: Dre Johnson MD [...] joint. He was asked if he has qyiy-sv-gqtt. He responded yes. He denies fever, chills [...] mg PO BID gout 12/19/24 Unknown History 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,sternman,cont #1 ea 12/19/24 Unknown Rx (FreeStyle Nancy 3 [place]) celecoxib 200 mg capsule 200 mg PO [...] mL 02/06/25 Unknown Rx subcutaneous pen injector (Mounjaro) hydrocodone-acetaminophen 5-325mg 1 tab PO Q6H PRN [...] H/O hernia repair H/O eye surgery S/P NEW ACCOUNTS REPRESENTATIVE shunt Surgical History no surgical history Social [...] % (Auto) 64.0 Lymph % (Auto) 24.9 Hamblen % (Auto) 6.6 Eos % (Auto) 3.1 [...] acetabulum in this young patient. Reading Location: [facility] The report by radiologist was reviewed at [...] [facility] and [facility] are reluctant to do [facility] [...] left hip, Type II diabetes mellitus, S/P NEW ACCOUNTS REPRESENTATIVE shunt, Obesity hypoventilation syndrome, Fatty liver disease, [...] mg PO DAILY (DME) FreeStyle Nancy 3 [place] Misc See Rx Instructions .Route Qty: 1 [...] name of the bicycle sharps are dirty [employer] works and at [employer] [place] [employer] Language: Armenian Disposition Disposition: Home, Self Care What to do if you have Problems For any increased pain, shortness of breath, bleeding, nausea or vomiting, chestpain, or any unexpected problems, contact your Primary Care Provider. Call [facility] ([phone]) or report to the closest Emergency Room. Call 911 if necessary. 04/23/25 0419 <Electronically signed by Dre Johnson MD> Cosigner Signature (if applicable): CC: Dr. Aliza Roman MD ~ Signed [facility] Work Phone: 1(931) 619-673906-02-2025 Evaluation note* Diagnosis Onset Date Resolution Status Admit Date Bronchial asthma chronic January 2:35pm Hypoxia chronic January 23, 2025 2:35pm Obesity hypoventilation syndrome chr onic January 23, 2025 2:35pm Super obesity chronic January 23, 025 2:35pm Benign hypertension chronic February 06, 2025 12:58pm Hyperlipemia chronic February 06 025 12:58pm Obesity chronic February 06 12:58pm Type II diabetes mellitus chronic February 06, 2025 12:58pm [facility] Work Phone: 1(194) 987-593705-19-2025 Procedure note [facility] Medical Records Department [address] [place] [address] Operative Report 01/09/25823 MR#: [id number] Acct: [id number] Name: DONNA RODRIGES Rep #:[id number] : 1985 39 From: Carlos Ibarra MD PCP: Dr. Aliza Roman MD [facility] Location: [place] [address] Operative Report (Standard) Operative Information Date of Procedure: 01/09/25 Pre-Operative Diagnosis: 1 Post-Operative Diagnosis: 1 Surgery/Procedure Performed: 1 envelope adjuster: No Type of Anesthesia: Local MAC RN [...] Prophylaxis: None VTE Pharm Prophylaxis ordered?: No 01/09/2529 Cosigner Signature (if applicable): CC: Dr. Aliza Roman MD; Dr. Carlos Ibarra MD~ Signed [facility]05-19-2025 Consult note [facility] Medical Records Department [address] [place] [address] Pre-Anesthesia Evaluation 01/09/25 0718 MR#: [id number] Acct: [id number] Name: DONNA RODRIGES Rep #:[id number] : 1985 39 From: Sridhar Cardozo MD PCP: Dr. 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: Anesthesia History - steam flattener Hx Hospitalization No 03/17/24 08:06 Any Problems [...] take am of surgery PONV PONV - steam flattener: PONV - steam flattener Female HX of Motion Sickness HX of N/V After Surgery Non-Smoker Duration of Surgery greater than 60 minutes Number of Risk Factors PONV Score Height & Weight Height & Weight: Anesthesia: Height & Weight Height 5 ft 4 in 01/09/25 06:48 Weight: 159 kg 01/09/25 06:48 Body Mass Index (BMI) 60.1 01/09/25 06:48 Respiratory Assessment Respiratory Assessment - steam flattener: Respiratory Tract Infection Hx - steam flattener Hx Respiratory Tract Infection No 07/25/24 08:06 STOP Sleep Apnea STOP Sleep Apnea - steam flattener: STOP Sleep Apnea - steam flattener Hx Hypertension Yes: CONTROLLED WITH MEDS 03/17/24 [...] Tobacco Use History Tobacco Use History - steam flattener: Tobacco Use History - steam flattener Tobacco Use Non-smoker 02/27/22 14:09 Smoking Status Never smoker 11/27/24 11:04 Hx Tobacco Use No 03/17/24 08:06 Years Smoking Packs Smoked per Day Smoking Cessation Date was within the last 15 years Hx Smoking Cessation Date Hx Smoking Cessation Counseling Hematologic Medial History Hematologic Hx - steam flattener: 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 Specify any problems Hx of Preganancy in last 3 Months Nurse Filling Out Transfusion & Questions: Date: Time: Patient unable to answer at this time (ie. confused, unrespo /Reproduction History /Reproductive History - steam flattener: /Reproductive Hx- steam flattener Hx Now Gestational Age (in weeks): EDC: [...] Unknown Rx Nancy 3 Plus Sensor device) 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,sternman,cont #1 ea 12/19/24 Unknown Rx (FreeStyle Nancy 3 [place]) celecoxib 200 mg capsule 200 mg PO [...] H/O hernia repair H/O eye surgery S/P NEW ACCOUNTS REPRESENTATIVE shunt Social History Smoking Status: Never smoker Review of Systems (Anesthesia) ROS Narrative System reviewed and no additional complaints, except as documented. 01/09/25718 > Date _ Sridhar Cardozo MD Cosigner Signature: Date CC: ~ Signed [facility]04-28-2025 Evaluation note* Diagnosis Onset Date Resolution Status Admit Date Benign hypertension chronic December 19, 2024 1:29pm Fatty liver disease, nonalcoholic chronic December 19, 2024 1:29pm Hyperlipemia chronic December 19, 2024 1:29pm Obesity chronic December 19 1:29pm Type II diabetes mellitus chronic December 19, 2024 1:29pm [facility] Work Phone: [phone] 612-131504-28-2025 Evaluation note* Diagnosis Onset Date Resolution Status [...] 2025 2:35pm Super obesity chronic January 23 025 2:35pm [facility] Work Phone: 1(175) 419-832304-06-2025 Radiology Diagnostic study note [facility] Imaging Services [address] [place] [address] Shuntogram/Prev Placed Shunt MR#: [id number] Acct: [id number] Name: DONNA RODRIGES Rep #: [id number] : 1985 M 39 From: Pet er Peer PCP: Dr. Aliza Roman MD Status: REG ER Study:Shuntogram/Prev Placed Shunt Date of Ex am: 11/27/24 Exam# [id number] Ordering Dr: Mica Mendez DO EXAM: Diagnostic shuntogram of placed shunt. CLINICAL HISTORY: Bilateral lower extremity edema for 2 days. COMPARISON: Yesterday, November 26 pelvis and November 27 brain TECHNIQUE: Plain films were obtained to survey the entire course of the right-sided NEW ACCOUNTS REPRESENTATIVE shunt. FINDINGS: Skull demonstrates right parietal shunt. The tubing traverses the right skull and right thorax and then is seen right abdomen initially and then crosses over to the left abdomen. No obvious kinking or other abnormality. RAD/Shuntogram/Prev Placed Shunt IMPRESSION: Patent NEW ACCOUNTS REPRESENTATIVE shunt. Reading Location: [facility]- CC: Dr. Aliza Roman MD; Dr. Davonte Mendez DO ~ Pallet Stone Positioner: Signed [facility]04-06-2025 Radiology Diagnostic study note [facility] Imaging Services [address] [place] [address] HIP, UNI W/ Pelvis 2-3 Views MR#: [id number] Acct: [id number] Name: DONNA RODRIGES Rep #: [id number] : 1985 M 39 From: Pet er Peer DO PCP: Dr. Aliza Roman MD Status: REG ER Study:HIP, UNI W/ Pelvis 2-3 Views Date of Ex am: 11/27/24 Exam# [id number] Ordering Dr: Krystina Bunch PROCEDURE: HIP, UNI [...] Advanced osteoarthritis of left hip. Reading Location: [facility] CC: Dr. Aliza Roman MD; GUICHO Jarrell ~ Pallet Stone Positioner: Signed [facility]04-06-2025 Radiology Diagnostic study note [facility] Imaging Services [address], [place] [address] Brain/Head without Contrast MR#: [id number] Acct: [id number] Name: DONNA RODRIGES Rep #: [id number] : 1985 M 39 From: Pet er Peer DO PCP: Dr. Aliza Roman MD Status: REG ER Study:Brain/Head without Contrast Date of Exa m: 11/27/24 Exam# [id number] Ordering Dr: Krystina Bunch PROCEDURE: BRAIN/HEAD WITHOUT CONTRAST 11/27/2024 REASON FOR EXAM: HEAD INJURY, POSSIBLE SEIZURE NEW ACCOUNTS REPRESENTATIVE shunt surgery. History of seizures TECHNIQUE: Head CT without intravenous contrast. Coronal and Sagittal reconstruction serieswere provided. One or more dose reduction techniques were used (e.g., Automated exposure control, adjustment of the mA and/or kV according to patient size, use of iterative reconstruction technique. RADIATION DOSE SUMMARY: CTDlvol: 44.99 mGy DLP: 796.11 mGycm COMPARISON: None. FINDINGS: Brain: Right parietal NEW ACCOUNTS REPRESENTATIVE shunt tube appears satisfactorily positioned. No ventriculomegaly. No mass, mass effect or midline shift. No intra-axial or extra-axial hemorrhage. CSF Spaces: Again NEW ACCOUNTS REPRESENTATIVE shunt tube in place. Ventricles and sulci are normal in size. Sinuses/Mastoids: Mucous retention cyst in the base of the left maxillary sinus. Mastoid air cells and remaining sinuses are clear. Bones: Unremarkable. CT/Brain/Head without Contrast IMPRESSION: No acute process detected. Reading [facility] CC: Dr. Aliza Roman MD; GUICHO Jarrell ~ Pallet Stone Positioner: Signed [facility]06-11-2024 Note ORIGINAL EXAMINATION: CT OF THE HEAD [...] Sign Date: 02/02/2024 3:05:07 PM Ordering Provider: [place] [id number] Discharge summary Author Zeny Dumont [facility] December 19, 2023 1:20am Note Date/Time December 18, 2023 11: 05pm [facility] Medical Records Department [address] [place] [address] Emergency Department Summary 12/18/23 MR#: [id number] Acct: [id number] Name: DONNA RODRIGES Rep #:[id number] : 1985 38 From: Zeny Dumont MD [...] controlled. He finished his last prescription of Holstein today and states he doesnot want to go sweet pickle maker his new prescription tomorrow because the pills [...] he come back to the emergency room. [facility] Medical History Benign hypertension Bronchial asthma Chest [...] H/O eye surgery H/O hernia repair S/P NEW ACCOUNTS REPRESENTATIVE shunt Social History Smoking Status: Never smoker [...] % (Auto) 60.9 Lymph % (Auto) 27.8 Hamblen % (Auto) 7.9 Eos % (Auto) 2.0 [...] him a prescription for naproxen. He has Holstein and baclofen to sweet pickle maker at the pharmacy tomorrow. Return instructions provided. [...] your Primary Care Provider. Call [facility] ([phone]) or report to the closest Emergency Room. Call 911 if necessary. 12/19/23 0120 <Electronically signed by Zeny Dumont MD> Cosigner Signature (if applicable): CC: Dr. Aliza Roman MD ~ Signed [facility] Work Phone: 1(788) 375-242204-13-2024 Discharge summary Author Romulo Estrella [facility] December 05, 2023 2:16pm Note Date/Time December 05, 2023 11: 23am [facility] Medical Records Department [address] [place] [address] Emergency Department Summary 12/05/23 MR#: [id number] Acct: [id number] Name: DONNA RODRIGES Rep #:[id number] : 1985 38 From: Romulo Estrella MD [...] it hurts when he sitsor lies flat. [facility] Medical History Benign hypertension Bronchial asthma Chest [...] H/O eye surgery H/O hernia repair S/P NEW ACCOUNTS REPRESENTATIVE shunt Social History Smoking Status: Never smoker [...] % (Auto) 57.5 Lymph % (Auto) 31.9 [place]len % (Auto) 7.5 Eos % (Auto) 1.5 [...] Sl. Cloudy Urine pH 5.0 Ur Specific [place] 1.010 Urine Protein 30 H Urine Glucose [...] problems, contact your Primary Care Provider. Call [employer] [facility] ([phone]) or report to the closest Emergency Room. Call 911 if necessary. 12/05/23 1416 <Electronically signed by Romulo Esterlla MD> Cosigner Signature (if applicable): CC: Dr. Aliza Roman MD ~ Signed [facility] Work Phone: 1(887) 371-389503-28-2024 NoteHNO ID: [id number] Author: TORITO DUEÑAS PA-C Service: ? Author Type: Physician Water Rights Specialist Type: Progress Notes Filed: 11/19/2023 18:52 Note [...] reports popping, catching, and instability. Alleviating factors: "Nothing makes my pain better" Prior pertinent orthopedic surgery: none Prior interventions: [...] Review of Systems: Reviewed and charted into Epic. Physical Exam: PE reveals a male with the following vitals signs: Ht 162.6 cm (5' 4") Wt (!) 148.4 kg (327 lb 2.6 [...] degenerative change. Maintained sacroiliac (more content not included)...[facility]03-25-2024 NoteHNO ID: [id number] Author: RICHIE LOUIS RT(R) Service: Radiology Author [...] PATIENT PRESENTS WITH AN IMPLANTABLE OR ATTACHED MEDICAL PHYSICIST: No RADIOLOGY DEPARTMENT: General X-ray: Exam(s) Completed: Pelvis X-Ray: Pelvis with Hip Left PERIPHERAL IV DATA: Not applicable SIGNED BY: RT Shahrzad(R) November 16, 2023 10:28 [facility]03-25-2024 History of Present illness Narrative* Richie Louis [...] PATIENT PRESENTS WITH AN IMPLANTABLE OR ATTACHED MEDICAL PHYSICIST: No RADIOLOGY DEPARTMENT: General X-ray: Exam(s) Completed: Pelvis X-Ray: Pelvis with Hip Left PERIPHERAL IV DATA: Not applicable SIGNED BY: RT Shahrzad(R) November 16, 2023 10:28 AM documented in [facility] encounter[facility]-2024 NoteHNO ID: [id number] Author: SIMIN HENDRIX, ? Service: ? Author [...] last 1 encounters. No results found for: "HBA1C" PCP: Denny Stevens MD PAST MEDICAL HISTORY [...] seen and evaluated. 2. (more content not included)...[facility]02-13-2024 NoteHNO ID: [id number] Author: CAMRYN MILAN LPN Service: ? Author Type: LICENSED NURSE Type: Progress Notes Filed: 10/06/2023 14:44 Note Text: AMB ROOMING INTAKE FLOWSHEET DATA Risk Screening Do you have concerns about personal safety or safety in the home?: No Patient presents with: Left Foot - New, Diabetic Foot Care Right Foot - New, Diabetic Foot Care Camryn Milan [facility]02-13-2024 NoteHNO ID: [id number] Author: TONI GONZALEZ RT(R) Service: Radiology Author [...] PATIENT PRESENTS WITH AN IMPLANTABLE OR ATTACHED MEDICAL PHYSICIST: No RADIOLOGY DEPARTMENT: General X-ray: Exam(s) Completed: Lower Extremity X-Ray(s): Foot, Bilateral PERIPHERAL IV DATA: Not applicable SIGNED BY: RT King(R) October 06, 2023 12:37 [facility]02-13-2024 Instructions* Patient Instructions* Simin Hendrix - [...] or sore from your shoes, do not "pop" it. Apply a bandage and wear a differentpair of shoes. Take Care of Your Toenails Cut toenails after bathing, when they are soft. Cut toenails straight across and smooth with a nail file. Avoid cutting into the corners of toes. Do not cut cuticles. If you have neuropathy (or decreased sensation in your feet) a quality systems manager should always cut your toenails. Be Careful [...] your shoes are too tight. Perform the "footwear test" described below. Footwear Test Use this simple [...] Go to your health care provider or quality systems manager to treat these conditions. documented in this encounterOhio[facility]02-13-2024 History of Present illness Narrative* Simin Hendrix [...] last 1 encounters. No results found for: "HBA1C" PCP: Denny Stevens MD PAST MEDICAL HISTORY [...] Care Camryn Milan LPN documented in this encounterOhio[facility]02-13-2024 History of Present illness Narrative* Toni Gonzalez [...] PATIENT PRESENTS WITH AN IMPLANTABLE OR ATTACHED MEDICAL PHYSICIST: No RADIOLOGY DEPARTMENT: General X-ray: Exam(s) Completed: Lower Extremity X- Ray(s): Foot, Bilateral PERIPHERAL IV DATA: Not applicable SIGNED BY: RT King(R) October 06, 2023 12:37 PM documented in this encounterOhiohealth Hardin Memorial HospitalConsult note Author Sridhar Cardozo [facility] Note Date/Time January 09, 2025 7:19a [facility] Medical Records Department [address] [place] [address] Pre-Anesthesia Evaluation 01/09/25 0718 MR#: [id number] Acct: [id number] Name: DONNA RODRIGES Rep #:[id number] : 1985 39 From: Sridhar Cardozo MD PCP: Dr. 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: Anesthesia History - steam flattener Hx Hospitalization No 03/17/24 08:06 Any Problems [...] take am of surgery PONV PONV - steam flattener: PONV - steam flattener Female HX of Motion Sickness HX of N/V After Surgery Non-Smoker Duration of Surgery greater than 60 minutes Number of Risk Factors PONV Score Height & Weight Height & Weight: Anesthesia: Height & Weight Height 5 ft 4 in 01/09/25 06:48 Weight: 159 kg 01/09/25 06:48 Body Mass Index (BMI) 60.1 01/09/25 06:48 Respiratory Assessment Respiratory Assessment - steam flattener: Respiratory Tract Infection Hx - steam flattener Hx Respiratory Tract Infection No 03/17/24 08:06 STOP Sleep Apnea STOP Sleep Apnea - steam flattener: STOP Sleep Apnea - steam flattener Hx Hypertension Yes: CONTROLLED WITH MEDS 03/17/24 [...] Tobacco Use History Tobacco Use History - steam flattener: Tobacco Use History - steam flattener Tobacco Use Non-smoker 02/27/22 14:09 Smoking Status Never smoker 11/27/24 11:04 Hx Tobacco Use No 03/17/24 08:06 Years Smoking Packs Smoked per Day Smoking Cessation Date was within the last 15 years Hx Smoking Cessation Date Hx Smoking Cessation Counseling Hematologic Medial History Hematologic Hx - steam flattener: 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 Specify any problems Hx of Preganancy in last 3 Months Nurse Filling Out Transfusion & Questions: Date: Time: Patient unable to answer at this time (ie. confused, unrespo /Reproduction History /Reproductive History - steam flattener: /Reproductive Hx- steam flattener Hx Now Gestational Age (in weeks): EDC: [...] Unknown Rx Nancy 3 Plus Sensor device) 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,sternman,cont #1 ea 12/19/24 Unknown Rx (FreeStyle Nancy 3 [place]) celecoxib 200 mg capsule 200 mg PO [...] H/O hernia repair H/O eye surgery S/P NEW ACCOUNTS REPRESENTATIVE shunt Social History Smoking Status: Never smoker Review of Systems (Anesthesia) ROS Narrative System reviewed and no additional complaints, except as documented. 01/09/25718 <Electronically signed by Sridhar Cardozo MD > Date _ Sridhar Cardozo MD Cosigner Signature: Date CC: ~ Signed [facility] Work Phone: Consult note* Clinical Note Date No Information [facility] Work Phone: Discharge summary* Clinical Note Date No Information [facility] Work Phone: Evaluation + Plan note No data available for this section [facility] Evaluation + Plan note Future Appointments Appointment Date:02/02/2024 01:30:00 PM Scheduled Provider: Location:[facility] Appointment Type:CT Head or Brain w/o Contrast Future Scheduled Tests Radiology* XR Shuntogram 01/19/24 * CT Head or Brain w/o Contrast 02/02/24 * XR Skull Minimum 4 Views 01/19/24 [facility] Evaluation note* Diagnosis Onset Date Resolution Status Obesity hypoventilation syndrome acute Bronchial asthma chronic Super obesity chronic History of cerebral palsy ch ronic Congenital dysplasia of left hip noneactive [facility] Work Phone: Evaluation note* Diagnosis Onset Date Resolution Status Hypoxia acute Obesity hypoventilation syndrome acute Bronchial asthma chronic [facility] Work Phone: Evaluation note* Diagnosis Onset Date Resolution Status Obesity hypoventilation syndrome acute Bronchial asthma chronic Super obesity chronic History of cerebral palsy ch ronic Cerebral palsy noneactive Congenital dysplasia of left hip noneactive [facility] Work Phone: Evaluation note* Diagnosis Onset Date Resolution Status Obesity hypoventilation syndrome acute Bronchial asthma chronic Super obesity chronic Hip pain acute 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 acute [facility] Work Phone: Evaluation note* Diagnosis Onychomycosis- Primary Dermatophytosis of nail Pain in toe of left foot Pain in limb Pain in toe of right foot Pain in limb Callus of foot Corns and callosities documented in this encounter [facility]* Diagnosis Pain Generalized pain documented in this encounter [facility]* Diagnosis Pain- Primary Generalized pain [facility] Diagnosis Pain in left hip- Primary Pain in joint, pelvic region and thigh documented in this encounter [facility]* Diagnosis Pain Generalized pain documented [facility] this encounter [facility]* Diagnosis Onset Date Resolution Status Hip pain acute 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 acute Obesity hypoventilation syndrome acute Bronchial asthma chronic Super obesity chronic [facility] Work Phone: Evaluation noteNo assessment information available [facility] Work Phone: History and physical note* Clinical Note Date No Information [facility] Work Phone: Hospital Discharge instructions No data available for this section [facility] Hospital Discharge instructions Additional Instructions Call your pain management physician on Thursday. You can continue Tylenol up to 3 g / 3000 mg a day. Continue your tramadol as previously directed. 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 [employer] and at [facility] [employer] [facility] Work Phone: Instructions* Date Instruction Additional Infor mation No Information [facility] Work Phone: Progress note No data available for this section [facility] Progress note* Clinical Note Date No Information [facility] Work Phone: Reason for referral (narrative)* Diagnostic Procedure Only (Routine) - Authorized Specialty Diagnoses / Procedures Referred By Stephen vega Referred To Contact XR IMAGING Diagnoses Pain Procedures XR HIP GENERAL 3V PELV/AP/LAT LEFT RADEX HIP UNILATERAL WITH PELVIS 2-3 VIEWS Torito Dueñas PA-C [address] [address] Xr Imaging [id number] Referral ID Status Reason Start Date Expiration Date Visits Requested Visits Authorized [id number] Authorized Auto-Generat ed Referral 10/13/2023 11/11/[address] [facility] for referral (narrative)* Diagnostic Procedure Only (Routine) - Pending Review Specialty Diagnoses / Procedures Referred By Stephen vega Referred To Contact XR IMAGING Diagnoses Pain in left hip Procedures XR HIP GENERAL 3V PELV/AP/LAT LEFT RADEX HIP UNILATERAL WITH PELVIS 2-3 VIEWS Philippe Lamb MD [address] [place] [address] Xr Imaging [id number] Referral ID Status Reason Start Date Expiration Date Visits Requested Visits Authorized [id number] Pending Review Auto-Generat ed Referral 10/14/2023 11/11/2024 1 [facility]No reason for [facility] Reason for referral (narrative)* Reason For Referral No Information [facility] Work Phone: Reason for visit Narrative* Diagnostic Procedure Only (Routine) - Closed Specialty Diagnoses / Procedures Referred By Contac t Referred To Contact XR IMAGING Diagnoses Pain Procedures XR FOOT GENERAL 3V AP/LAT/OBL BILATERAL RADEX FOOT COMPLETE MINIMUM 3 VIEWS Simin Hendrix [address] [place] [address] Xr Imaging [id number] Referral ID Status Reason Start Date Expiration Date V isits Requested Visits Authorized [id number] Closed Auto-Generate d Referral 09/18/2023 10/17/2024 1 1 [facility] N[facility]* Diagnostic Procedure Only (Routine) - Closed Specialty Diagnoses / Procedures Referred By Contac t Referred To Contact XR IMAGING Diagnoses Pain Procedures XR HIP GENERAL 3V PELV/AP/LAT LEFT RADEX HIP UNILATERAL WITH PELVIS 2-3 VIEWS Torito Dueñas PA-C [address] [address] Xr Imaging [id number] Referral ID Status Reason Start Date Expiration Date V isits Requested Visits Authorized [id number] Closed Auto-Generate d Referral 10/13/2023 11/11/2024 1 1 [facility] Chief Complaint and Reason for Visit Chief [...] diabetes mellitus February 06 12:58pm Family History Relationship Condition Age at Onset Recorded Date/T [...] of breast Unknown grandfather Malignant neoplasm Unknown Family Member Type Diagnosis Age At Onset No Information Advance Directives Advance Directive Response Recorded Date/ Time Advance Directives Yes April 11:10am Living Will No February 14, 2022 1:41pm Power of Web Communications Specialist No February 14 1:41pm Advance Directive Response Recorded Date/ Time Advance Directives Yes February 27 2:09pm Living Will No May 02 9:07pm Power of Web Communications Specialist No May 02, 2022 9:07pm Advance Directive Response Recorded Date/ Time Advance Directives Yes February 27 2:09pm Living Will No January 13, 2023 2 :25pm Power of Web Communications Specialist No January 13, 2023 2:25pm Advance Directive Response Recorded Date/ Time Advance Directives Yes February 27 2:09pm Living Will No February 15, 2023 10:20am Power of Web Communications Specialist No February 15 10:20am Advance Directive Response Recorded Date/ Time Advance Directives Yes February 27 1:09pm Living Will No February 15, 2023 9:20am Power of Web Communications Specialist No February 15 9:20am Advance Directive Response Recorded Date/ Time Advance Directives Yes February 27 2:09pm Living Will No December 05, 2023 11:10am Power of Web Communications Specialist No December 04 11:10am Advance Directive Response Recorded Date/ Time Advance Directives Yes February 27 2:09pm Living Will No December 18, 2023 10:28pm Power of Web Communications Specialist No December 17 10:28pm Advance Directive Response Recorded Date/ Time Advance Directives Yes February 27 2:09pm Living Will No December 23, 2023 5: 08pm Power of Web Communications Specialist No December 23, 2023 5:08pm Advance Directive Response Recorded Date/ Time Living Will No October 28, 2024 2:17pm Power of Web Communications Specialist No October 28 2:17pm Advance Directives Yes February 27 1:09pm Advance Directive Response Recorded Date/ Time Living Will No October 28, 2024 3:17pm Do you have a Healthcare Power of Web Communications Specialist? No October 28, 2024 3:17pm Living Will No November 27, 2024 11:04am Do you have a Healthcare Power of Web Communications Specialist? No November 27, 2024 11:04am Advance Directives Yes February 27 2:09pm Advance Directive Response Recorded Date/ Time Do you have a Healthcare Power of Web Communications Specialist? No April 23, 2025 4:33pm Advance Directives Yes February 27 2:09pm Directive Yes / No Effective Date File Name No Information Summary Purpose Additional Source Comments Goals (unrecognized [...] Provider, Referrin g Provider Active Dania Norris GRANT OFFICER, GRANT OFFICER-C Attending Provider Active Team Status: Inactive Member [...] MD Attending Provider, Referring Pr ovider Active Gelatin Dynamite Packing Operator Relationship Specialty Start Date End Date Denny Stevens MD [address] [place] [address] [id number] PCP - General Family Medicine 07/21/22 Denny Santos MD [address] [place] [id number] Referring Sports Medicine 08/31/23 Gelatin Dynamite Packing Operator Relationship Specialty Start Date End Date Denny Stevens MD [address] [place] [address] PCP - General Family Medicine 07/21/22 Denny Santos MD [address] [place] [address] [place], [place] [phone] Referring Sports Medicine 08/31/23 Gelatin Dynamite Packing Operator Relationship Specialty Start Date End Date Denny Stevens MD [address] [place] [address] PCP - General Family Medicine 07/21/22 Denny Santos MD [address] [place] [address] [place], [place] [phone] Referring Sports Medicine 08/31/23 Gelatin Dynamite Packing Operator Relationship Specialty Start Date End Date Denny Stevens MD [address] [place] [address] PCP - General Family Medicine 07/21/22 Denny Santos MD [address] [place] [address] [place], [place] [phone] Referring Sports Medicine 08/31/23 Team Status: Inactive [...] End: January 23, 2025 Dania Norris NP, GRANT OFFICER-C Attending Provider Active Start: January 23, 2025 [...] End: January 23, 2025 Dania Norris NP GRANT OFFICER-C Attending Provider Active Start: January 23, 2025 [...] April 23, 2025 End: April 23, 2025 Name Effective Dates (start - stop) Status Members No Information Source Comments (unrecognize d section and content) In the event this informatio n is protected by the Federal Confidentiality of Alcohol and Drug Abuse Patient Records regulations: The Federal rules restrict any use of the information to criminally investigate or prosecute any alcohol or drug abuse patient.[facility] the event this information is protected by the Federal Confidentiality of Alcohol and Drug Abuse Patient Records regulations: The Federal rules restrict any use of the information to criminally investigate or prosecute any alcohol or drug abuse patient.[facility] the event this information is protected by the Federal Confidentiality of Alcohol and Drug Abuse Patient Records regulations: The Federal rules restrict any use of the information to criminally investigate or prosecute any alcohol or drug abuse patient.[facility] the event this information is protected by the Federal Confidentiality of Alcohol and Drug Abuse Patient Records regulations: The Federal rules restrict any use of the information to criminally investigate or prosecute any alcohol or drug abuse patient.[facility] the event this information is protected by the Federal Confidentiality of Alcohol and Drug Abuse Patient Records regulations: The Federal rules restrict any use of the information to criminally investigate or prosecute any alcohol or drug abuse patient.[facility] Reason for Visit (unrecogniz ed section and content) Reason Comments New Diabetic Foot Care (unrecognized sect ion and content) No Status Records FoundNo Status Records FoundNo Status Records FoundNo Status Records Found INFORMATION SOURCE (unrecogn ized section and content) DATE CREATED AUTHOR 11/20/2023 [facility] DATE CREATED AUTHOR AUTHOR'S ORGANIZ ATION 02/04/2024 [facility] ([place]) DATE CREATED AUTHOR AUTHOR'S ORGANIZ ATION 06/06/2025 [facility] DATE CREATED AUTHOR AUTHOR'S ORGANIZ ATION 06/13/2025 [facility] FOR RECORDS PERTAINING TO PATIENTS WHO ARE [...] BE BASED ON THE PRIMARY CLINICAL RECORDS. [employer] [facility]. provides no warranty or guarantee of the accuracy or completeness of information in this document.
[2025-06-15 22:28] VITALS: BMI 59.8
[2025-06-15 22:40] VITALS: BP 129/75; PULSE 72; RESP 22; TEMP 36.5; O2SAT 98
[2025-06-15 22:52] LABS: Magnesium 2.2 mg/dL (1.5-2.2)
[2025-06-15] MEDS: 0.9% Normal Saline (1000mL) 1,000 ML 70 ML IV (23:04)
[2025-06-16] MEDS: MELATONIN 3 MG TABLET PO (00:04)
--- NOTE | 2025-06-16 00:41 | CPS ---
Patient refused PAP therapy for night time use. Patient stated that his is bringing in his machine the next day, and wishes just to wear O2 for the night in the mean time.
[2025-06-16 03:18] VITALS: BP 148/93; PULSE 74; RESP 18; TEMP 36.4; O2SAT 97
[2025-06-16] MEDS: Ketorolac 30 MG/ML Syringe IV (03:51)
[2025-06-16] MEDS: 0.9% Saline Lock 10 ML Syringe IV ×2 (03:51→14:09)
[2025-06-16 05:05] LABS: Hematocrit 44.0 % (40-54); Hemoglobin 14.2 g/dL (13.0-16.5); Immature Granulocytes Count 0.100 X10^3/uL (0.0-0.0); Mean Corp Hgb Conc 32.3 g/dL (32-36); Mean Corpuscular Volume 87.8 fL (80-94); Mean Platelet Vol. 11.5 fl (6.2-12.0); NRBC Flagged by Analyzer 0 % (0-5); Platelet Count 197 K/mm3 (150-450); RBC Distribution Width CV 15.7 % (11.6-14.6); RBC Distribution Width SD 50.1 fl (35.1-43.9); Red Blood Count 5.01 M/mm3 (4.6-6.2); White Blood Count 10.8 K/mm3 (4.4-11.0)
[2025-06-16 05:30] LABS: AST(SGOT) 18 U/L (<=37); Alanine Aminotransfer ALT/SGPT 19 U/L (<=46); Albumin, Serum 3.7 g/dL (3.5-5.0); Alkaline Phosphatase 92 U/L (40-129); Anion Gap 11 (5-15); BUN 18 mg/dL (4-19); BUN/Creat Ratio 29.6 RATIO (10-20); Calcium,Total 8.6 mg/dL (7.6-11.0); Carbon Dioxide 23.8 mmol/L (21.0-32.0); Chloride 104 mmol/L (98-108); Estimated Creatinine Clearance 218.94 ml/min (50-250); Globulin 3.4 g/dL (2.2-4.2); Glucose 252 mg/dL (70-99); Potassium 4.3 mmol/L (3.3-5.1)
[2025-06-16 06:00] VITALS: BMI 59.4
[2025-06-16 07:20] VITALS: O2SAT 97
[2025-06-16 09:00] VITALS: BP 131/80; PULSE 70; RESP 18; TEMP 36.8; O2SAT 94
--- NOTE | 2025-06-16 11:25 | CASEMGMT ---
Addendum entered by Tana Almazan 06/16/25 14:05: TC to [facility], left vm that pt was admitted lastnight and dc'ing today and that dc instructions were faxed. Also left returned call back number. Addendum entered by Tana Almazan 06/16/25 13:59: Faxed DC Instructions to [facility] at this time. Original Note: BEKAH MARTINEZ Assessment: Face to Face with pt for initial transition planning/care coordination assessment. RN JUAN introduced self and role at [facility], pt voices understanding and consents to assessment. Pt is A&O x4 and answers all questions appropriately at this time. Pt sitting up in chair on RA with at bedside. Care providers, pharmacy, and demographics verified/updated. Admitting Dx: L hip pain with inability to ambulate Strata Score: 3 PCP:Jessie Specialists:tammy Alexis mgmt; morgan Guadalupe from [employer]; damian Russo Preferred Pharmacy: [facility] Retail Insurance: My Care [facility] Prescription Benefit: yes LNOK: Annamarie Rodriges, ; Rigoberto Rodriges, father Living Arrangements: Pt lives with in a single story home with a 2 inch lip up. Pt reports that his [facility] CM is working on obtaining a ramp for this. Pt reports he has aides who assist him with his bathing and dressing as well as laundry, getting groceries and meal prep. Pt also assists with meal prep. Pt denies concerns at home. Transportation: Pt drives self and denies concerns with transportation. Pt is also aware of [employer] through his insurance. DME:shower chair, rollator, grab bars in the bathroom, bipap with O2 concentrator and portable concentrator HHC/SNF: Pt is active with [facility] for 20 hours/wk aide services. Pt denies hx of skilled HHC and pt denies SNF stays. Pt states no concerns with going home at time of dc. Pt denies need for any therapy in the home. Pt states at this point, therapy will not help his problem. Pt denies wanting to go to a SNF. Pt discusses that his CM [employer] is working on a power scooter for him. He states he was recently ordered a walker but sent it back because it did not go through his doorways. Pt denies need for RN JUAN to work on a walker as he states his CM told him this may jeopardize his power scooter. Pt states his dad thrifts and recently saw walkers and is going to go back to see if it is still available. Discussed [employer] as well as an option. Pt reports he wears 2L of oxygen with exertion and 4L through his bipap. Verified oxygen orders for 2L cont only. Pt states no further concerns/needs. CM to follow. Advised pt to ask CM if any further questions/concerns/needs arise, voices understanding. Pt Goal: Home Plan: Home with resuming of aide services. Will fax dc summary to [facility] when available. Maggy GODFREY CM
--- NOTE | 2025-06-16 12:54 | PCM.DC ---
Discharge Instructions DC O2, CPAP, BIPAP needs Home O2 Discharge instructions: No Dressing / Incision Discharge Activity: Return to Normal Activity Weight Bearing Status: Full weight bearing Follow Up Care Test Results: Test results from this visit will be discussed in further detail at your follow-up appointment, if applicable. Discharge Plan Admission Admit Date/Time: 06/15/25 21:54 Primary Reason for Your Visit: left hip osteoartritis Attending Provider: Hector Harris Primary Care Provider: Aliza Roman Consulting Providers: Flaco Hardin Discharge Orders/Prescriptions Prescriptions: New oxycodone 5 mg tablet 15 mg PO TID 7 Days Qty: 63 0RF Rx Instructions: two-three tid for pain Continued colchicine 0.6 mg tablet 0.6 mg PO PRN Patient Comments: take 1 tablet by mouth every 6 hours if needed for GOUT FLARE albuterol sulfate 2.5 mg /3 mL (0.083 %) solution for nebulization 2.5 mg inhalation Q4H PRN (Reason: shortness of breath or wheezing) Qty: 180 11RF Patient Comments: has not taken to date, on standby albuterol sulfate 90 mcg/actuation HFA aerosol inhaler 2 inh inhalation Q4H PRN PRN (Reason: Sob &/Or Wheezing) Qty: 8.5 11RF Patient Comments: has not taken, on standby montelukast 10 mg tablet 10 mg PO DAILY Qty: 90 3RF (DME) spacer See Rx Instructions .ROUTE .MEDSUPPLY Qty: 1 0RF Rx Instructions: As directed potassium citrate 10 mEq (1,080 mg) tablet extended release 10 meq PO DAILY Patient Comments: TAKE 1 TABLET BY MOUTH EVERY DAY (DME) FreeStyle Nancy 3 [employer] Misc See Rx Instructions .Route Qty: 1 0RF Rx Instructions: As directed rosuvastatin 5 mg tablet 5 mg PO QDAY Qty: 30 5RF budesonide-formoterol [Symbicort] 160-4.5 mcg/actuation HFA aerosol inhaler 2 inh inhalation BID Qty: 1 11RF Rx Instructions: administer with spacer, rinse mouth after each use (DME) FreeStyle Nancy 3 Plus Sensor Device See Rx Instructions .Route Qty: 2 5RF Rx Instructions: 1 sensor 15 q days allopurinol 300 mg tablet 300 mg PO BID Patient Comments: gout nebivolol 10 mg tablet 10 mg PO DAILY Patient Comments: blood pressure baclofen 20 MG tablet 20 mg PO Q12H pantoprazole 40 MG tablet 40 mg PO DAILY levetiracetam 500 mg tablet 500 mg PO BID Patient Comments: seizure furosemide 20 MG tablet 40 mg PO BID Patient Comments: Diuretic (water pill) Humulin R U-500 (Conc) Kwikpen 500 unit/mL (3 mL) insulin pen See Rx Instructions subcut TIDWMEAL Rx Instructions: SLIDING SCALE subcutaneously 3 times per day with meals; Mounjaro 5 mg/0.5 mL pen injector 5 mg subcut .tuesdays Changed celecoxib 200 mg capsule 200 mg PO BIDCM Qty: 1 0RF Rx Instructions: Increase your Celebrex to 1 twice a day No Action BIPAP -Bilevel Positive Airway Pressure ([facility] INFORMATIONAL USE ONLY) Patient Comments: DME: Sha, Pt is unaware of settings however knows he has a 2L oxygen bleed in OXYGEN - Supplemental ([facility] INFORMATIONAL USE ONLY) Patient Comments: DME: Sha per CM not patient wear 2lpm at rest and with exertion as needed. Referrals / Follow Up: Aliza Roman MD [Primary Care Provider, Family Practice] Carlos Ibarra MD [Med Staff - Active Staff, Pain Management] - Within 2 Weeks Disposition Disposition (needs filled in before D/C Order can be placed): Home, Self Care
[2025-06-16 13:15] VITALS: BP 140/93; PULSE 72; RESP 18; TEMP 36.7; O2SAT 92
--- NOTE | 2025-06-16 13:21 | DS.PCM_ITS ---
Providers Date of Admission: 06/15/25 Date of Discharge: 06/16/25 Primary Care Physician: Dr. Aliza Roman MD Reason For Visit: LEFT HIP PAIN W. 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: Status: Acute Code(s): M16.32 - Unilateral osteoarthritis resulting from hip dysplasia, left hip (4) Leukocytosis: Status: Acute Code(s): D72.829 - Elevated white blood cell count, unspecified Qualifiers: Leukocytosis type: unspecified Qualified Code(s): D72.829 - Elevated white blood cell count, unspecified (5) Morbid obesity with BMI of 60.0-69.9, adult: Status: Acute Code(s): E66.01 - Morbid (severe) obesity due to excess calories; Z68.44 - Body mass index [BMI] 60.0-69.9, adult (6) Hyperglycemia due to type 2 diabetes mellitus: Status: Acute Code(s): E11.65 - Type 2 diabetes mellitus with hyperglycemia Qualifiers: 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 Uncontrolled acute on chronic pain secondary to congenital dysplasia of the left hip #2 class III obesity #3 type 2 diabetes #4 seizure disorder #5 hyperlipidemia #6 essential hypertension Medications at Discharge Home Medications baclofen 20 mg tablet 20 mg PO Q12H muscle spasms 06/25/18 pantoprazole 40 mg tablet,delayed release 40 mg PO DAILY gi 06/25/18 furosemide 20 mg tablet 40 mg PO BID diuretic 10/13/21 colchicine 0.6 mg tablet 0.6 mg PO PRN gout 12/02/21 albuterol sulfate 2.5 mg/3 mL (0.083 %) solution for nebulization 2.5 mg (3 mL) inhalation Q4H PRN shortness of breath or wheezing #180 mL 01/05/23 albuterol sulfate 90 mcg/actuation aerosol inhaler 2 inh inhalation Q4H PRN PRN Sob &/Or Wheezing #8.5 grams 01/05/23 montelukast 10 mg tablet 10 mg PO DAILY allergies #90 tabs 01/05/23 spacer #1 ea 01/05/23 potassium citrate 10 mEq (1,080 mg) tablet,extended release 10 meq PO DAILY 07/23/23 allopurinol 300 mg tablet 300 mg PO BID gout 12/19/24 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,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,cont (FreeStyle Nancy 3 Richards) #1 ea 12/19/24 rosuvastatin 5 mg tablet 5 mg PO QDAY #30 tabs 12/19/24 budesonide-formoterol HFA 160 mcg-4.5 mcg/actuation aerosol inhaler (Symbicort) 2 inh inhalation BID #1 ea 01/23/25 levetiracetam 500 mg tablet 500 mg PO BID seizures 01/23/25 nebivolol 10 mg tablet 10 mg PO DAILY heart 01/23/25 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 sensor (FreeStyle Nancy 3 Plus Sensor device) #2 ea 02/06/25 insulin regular hum U-500 conc 500 unit/mL(3 mL) subcut pen (Humulin R U-500 (Conc) Insulin Kwikpen) See Rx Instructions subcut TIDWMEAL 06/01/25 tirzepatide 5 mg/0.5 mL subcutaneous pen injector (Mounjaro) 5 mg subcut .tuesdays06/15/25 BIPAP -Bilevel Positive Airway Pressure ([facility] INFORMATIONAL USE ONLY) ROBERT 06/16/25 OXYGEN - Supplemental ([facility] INFORMATIONAL USE ONLY) 06/16/25 celecoxib 200 mg capsule 200 mg PO BIDCM #1 cap 06/16/25 oxycodone 5 mg tablet 15 mg (3 x 5 mg) PO TID pain 7 days #63 tabs 06/16/25 Hospital Course Operations None Procedures None Summary of Care Provided Minutes Spent on Discharge: 31 Hospital Course: This 40-year-old white male was seen in the emergency room at [facility] with complaints of increasing pain in his left hip with inability to ambulate and perform ADLs at home. Patient has a history of chronic left hip pain from a congenital dysplasia of the hip, he has seen orthopedic surgeon, the plan is to replace the left hip but according to the patient, they would like him to lose weight before the surgery and they are also having trouble getting his insurance to cover the surgery itself. Patient is due to see his orthopedic surgeon in July of this year again. Patient sees Dr. Alexis for chronic pain and recently had a left intra-articular hip injection a few days ago. CT of the left hip showed severe osteoarthritic changes of the left hip, patient was placed in observation status on MedSurg 3, he received narcotic analgesics and PT and OT were scheduled to see the patient. I had a long discussion with the patient, his left hip pain has been chronic in nature and it has worsened over the past several weeks, I contacted his pain management physician and went over treatment plans with the pain management physician and it was okay that I write for the patient to have stronger narcotics at home. I gave the patient an option to either go to an extended care facility for short-term rehab services or go home and he chose to go home. On 06/16/2025, patient was seen and examined: On examination he appeared in good health and spirits. Patient is morbidly obese. Vital signs as documented. Skin warm and dry and without overt rashes. Neck without JVD, neck was supple, trachea midline, thyroid was normal. Lungs clear bilaterally, normal air movement was noted. Heart exam notable for regular rhythm, normal sounds and absence of murmurs, rubs or gallops. Abdomen unremarkable and without evidence of organomegaly, masses, or abdominal aortic enlargement. Bowel sounds are present, abdomen is not distended. Extremities nonedematous, no cyanosis was noted, no clubbing was noted. Neuro: Cranial nerves II through XII are grossly intact, no focal motor deficits were noted, sensation to light touch and pinprick intact, motor exam 5/5 throughout. Psych: Patient is alert and oriented x3, he does not appear anxious or depressed, he does not appear agitated. Patient was discharged home in stable condition on 06/16/2025. Weight / BMI Weight Weight: 158 kg Body Mass Index (BMI) 59.4 ABG / Lab / Microbiology Data 06/16/25 04:52 06/16/25 04:52 Laboratory: Laboratory Results - last 24 hr 06/16/25 11:55: POC Glucose 166 H Radiography Diagnostic Testing: Radiology Impression Lower Extremity CT 06/15/25 15:06 IMPRESSION: Severe left hip osteoarthrosis with small joint effusion. Reading Location: [facility] [place] D/C Instructions Weight Bearing Status: Full weight bearing DC O2, CPAP, BIPAP Needs Home O2 Discharge instructions: No Meaningful Use Info Meaningful Use Meaningful Use Diagnoses (Choose all that apply): None applicable Discharge Plan Admission Admit Date/Time: 06/15/25 21:54 Primary Reason for Your Visit: left hip osteoartritis Attending Provider: Hector Harris Primary Care Provider: Aliza Roman Consulting Providers: Flaco Hardin Discharge Orders/Prescriptions Prescriptions: New oxycodone 5 mg tablet 15 mg PO TID 7 Days Qty: 63 0RF Rx Instructions: two-three tid for pain Continued colchicine 0.6 mg tablet 0.6 mg PO PRN Patient Comments: take 1 tablet by mouth every 6 hours if needed for GOUT FLARE albuterol sulfate 2.5 mg /3 mL (0.083 %) solution for nebulization 2.5 mg inhalation Q4H PRN (Reason: shortness of breath or wheezing) Qty: 180 11RF Patient Comments: has not taken to date, on standby albuterol sulfate 90 mcg/actuation HFA aerosol inhaler 2 inh inhalation Q4H PRN PRN (Reason: Sob &/Or Wheezing) Qty: 8.5 11RF Patient Comments: has not taken, on standby montelukast 10 mg tablet 10 mg PO DAILY Qty: 90 3RF (DME) spacer See Rx Instructions .ROUTE .MEDSUPPLY Qty: 1 0RF Rx Instructions: As directed potassium citrate 10 mEq (1,080 mg) tablet extended release 10 meq PO DAILY Patient Comments: TAKE 1 TABLET BY MOUTH EVERY DAY (DME) FreeStyle Nancy 3 Richards Misc See Rx Instructions .Route Qty: 1 0RF Rx Instructions: As directed rosuvastatin 5 mg tablet 5 mg PO QDAY Qty: 30 5RF budesonide-formoterol [Symbicort] 160-4.5 mcg/actuation HFA aerosol inhaler 2 inh inhalation BID Qty: 1 11RF Rx Instructions: administer with spacer, rinse mouth after each use (DME) FreeStyle Nancy 3 Plus Sensor Device See Rx Instructions .Route Qty: 2 5RF Rx Instructions: 1 sensor 15 q days allopurinol 300 mg tablet 300 mg PO BID Patient Comments: gout nebivolol 10 mg tablet 10 mg PO DAILY Patient Comments: blood pressure baclofen 20 MG tablet 20 mg PO Q12H pantoprazole 40 MG tablet 40 mg PO DAILY levetiracetam 500 mg tablet 500 mg PO BID Patient Comments: seizure furosemide 20 MG tablet 40 mg PO BID Patient Comments: Diuretic (water pill) Humulin R U-500 (Conc) Kwikpen 500 unit/mL (3 mL) insulin pen See Rx Instructions subcut TIDWMEAL Rx Instructions: SLIDING SCALE subcutaneously 3 times per day with meals; Mounjaro 5 mg/0.5 mL pen injector 5 mg subcut .tuesdays Changed celecoxib 200 mg capsule 200 mg PO BIDCM Qty: 1 0RF Rx Instructions: Increase your Celebrex to 1 twice a day No Action BIPAP -Bilevel Positive Airway Pressure ([facility] INFORMATIONAL USE ONLY) Patient Comments: DME: Sha Pt is unaware of settings however knows he has a 2L oxygen bleed in OXYGEN - Supplemental ([facility] INFORMATIONAL USE ONLY) Patient Comments: DME: Sha per CM not patient wear 2lpm at rest and with exertion as needed. Referrals / Follow Up: Aliza Roman MD [Primary Care Provider, Family Practice] Carlos Ibarra MD [Med Staff - Active Staff, Pain Management] - Within 2 Weeks Disposition Disposition (needs filled in before D/C Order can be placed): Home, Self Care Charges/Coding Visit Charges Inpatient E&M: 80611 Disch Hosp >30min
--- NOTE | 2025-06-16 14:35 | PHA.DC_ITS ---
Pharmacy [facility] Counseling Pharmacy Service has performed discharge medication reconciliation and counseling for this patient. The patient's discharge medication list was reviewed for discrepancies and discrepancies were resolved. The patient was counseled on the following discharge medications and changes in medications for homegoing were reviewed. The Reason for Use, instructions for use, and potential side effects were reviewed for all new medications. The patient's questions regarding all of their medications were answered. 1. Oxycodone 15 mg PO 2-3 times daily PRN pain 2. Increase celebrext to BID The patient was able to verbally demonstrate an understanding of their discharge medications. Medications at Discharge Home Medications baclofen 20 mg tablet 20 mg PO Q12H muscle spasms 06/25/18 pantoprazole 40 mg tablet,delayed release 40 mg PO DAILY gi 06/25/18 furosemide 20 mg tablet 40 mg PO BID diuretic 10/13/21 colchicine 0.6 mg tablet 0.6 mg PO PRN gout 12/02/21 albuterol sulfate 2.5 mg/3 mL (0.083 %) solution for nebulization 2.5 mg (3 mL) inhalation Q4H PRN shortness of breath or wheezing #180 mL 01/05/23 albuterol sulfate 90 mcg/actuation aerosol inhaler 2 inh inhalation Q4H PRN PRN Sob &/Or Wheezing #8.5 grams 01/05/23 montelukast 10 mg tablet 10 mg PO DAILY allergies #90 tabs 01/05/23 spacer #1 ea 01/05/23 potassium citrate 10 mEq (1,080 mg) tablet,extended release 10 meq PO DAILY 07/23/23 allopurinol 300 mg tablet 300 mg PO BID gout 12/19/24 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,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,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 (FreeStyle Nancy 3 Upperglade) #1 ea 12/19/24 rosuvastatin 5 mg tablet 5 mg PO QDAY #30 tabs 12/19/24 budesonide-formoterol HFA 160 mcg-4.5 mcg/actuation aerosol inhaler (Symbicort) 2 inh inhalation BID #1 ea 01/23/25 levetiracetam 500 mg tablet 500 mg PO BID seizures 01/23/25 nebivolol 10 mg tablet 10 mg PO DAILY heart 01/23/25 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 sensor (Symbios ATM Venture[employer] Nancy 3 Plus Sensor device) #2 ea 02/06/25 insulin regular hum U-500 conc 500 unit/mL(3 mL) subcut pen (Humulin R U-500 (Conc) Insulin Kwikpen) See Rx Instructions subcut TIDWMEAL 06/01/25 tirzepatide 5 mg/0.5 mL subcutaneous pen injector (Mounjaro) 5 mg subcut .tues06/15/25 BIPAP -Bilevel Positive Airway Pressure ([facility] INFORMATIONAL USE ONLY) ROBERT 06/16/25 OXYGEN - Supplemental ([facility] INFORMATIONAL USE ONLY) 06/16/25 celecoxib 200 mg capsule 200 mg PO BIDCM #1 cap 06/16/25 oxycodone 5 mg tablet 15 mg (3 x 5 mg) PO TID pain 7 days #63 tabs 06/16/25
--- NOTE | 2025-06-16 16:00 | CASEMGMT ---
Social Work SW met with pt and assisted in completing a HCPOA and Living will. Pt naming his Sharon as decision maker. Copy placed on chart and original given to pt. ROSARIO Wu
== END 2025-06-16 14:43 | disposition home health service (06) ==
LOC: ED 21:29 → MS3 22:05
PROVIDERS: Admitting Provider Internal Medicine; Emergency Provider Emergency Medicine; PCP Family Medicine; Visit Provider Internal Medicine
DX: M16.32 Unilateral osteoarthritis resulting from hip dysplasia, left hip (principal); G40.909 Epilepsy, unspecified, not intractable, without status epilepticus; E66.813 Obesity, class 3; Z68.44 Body mass index [BMI] 60.0-69.9, adult; E11.65 Type 2 diabetes mellitus with hyperglycemia; Z79.4 Long term (current) use of insulin; I10 Essential (primary) hypertension; E78.00 Pure hypercholesterolemia, unspecified; R26.2 Difficulty in walking, not elsewhere classified; D72.829 Elevated white blood cell count, unspecified; G89.29 Other chronic pain; K21.9 Gastro-esophageal reflux disease without esophagitis; Z79.899 Other long term (current) drug therapy; G47.33 Obstructive sleep apnea (adult) (pediatric); J45.909 Unspecified asthma, uncomplicated; Z79.51 Long term (current) use of inhaled steroids; Q65.89 Other specified congenital deformities of hip
CPT/HCPCS: 36415; 73700; 80053; 82962; 83036; 83735; 84100; 84443; 85025; 96372; 96374; 96375; 96376; 99221; 99285; A4216; G0378

== ENCOUNTER 2025-07-05 12:15 | Emergency (ER) | payer MEDICARE, MEDICAID, SELFPAY ==
[2025-07-05 12:15] VITALS: BP 177/90; PULSE 89; RESP 16; TEMP 36.8; O2SAT 97
--- NOTE | 2025-07-05 15:40 | VDLE_ITS ---
Reason For Study Reason For Study: Right leg swelling RIGHT LEFT GSV is normal. CFV is compressible, spontaneous, phasic, competent, CFV is compressible, spontaneous, phasic, competent and demonstrates normal augmentation. and demonstrates normal augmentation. FV is compressible, spontaneous, phasic, competent and demonstrates normal augmentation. POP V is compressible, spontaneous, phasic, competent and demonstrates normal augmentation. T/P Trunk is compressible. PTV is compressible. RT PerV is compressible. Procedure This is a venous duplex using B-mode, color flow and spectral Doppler. Exam performed in department. A preliminary report was called and/or faxed to Dr. Esparza. VL/Venous Duplex US, Unilateral Interpretation Summary Deep veins of the right lower extremity are patent and compressible segmentally . There is no evidence of right lower extremity deep vein thrombosis. The right great saphenous vein appears patent a nd compressible segmentally. Ordering Physician: Luna Esparza Referring Physician: Aliza Roman Performed By: Denisa Rose RVT
[2025-07-05 15:43] VITALS: BP 153/82; PULSE 93; RESP 20; O2SAT 91
--- NOTE | 2025-07-05 15:49 | EX.ED.DYSGE1 ---
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 [facility] Medical History Leukocytosis Hyperglycemia due to type 2 diabetes mellitus Morbid obesity with BMI of 60.0-69.9, adult Inability to ambulate due to left hip Intractable pain Obesity Wears glasses Alcohol use Arthritis Uses wheelchair High cholesterol Restless legs Seizures History of edema BiPAP (biphasic positive airway pressure) dependence On home oxygen therapy ROBERT treated with BiPAP Cerebral palsy Anxiety Chronic cough Diabetes Non-smoker History of echocardiogram History of stress test 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 Seizure disorder Depression Hypertension History of bronchitis History of pneumonia GERD (gastroesophageal reflux disease) Chest pain Vertigo Super obesity Bronchial asthma Gout Type II diabetes mellitus History of cerebral palsy Obstructive sleep apnea Benign hypertension Home Medications ?Medication ?Instructions ?Recorded ?Last Taken ?Type baclofen 20 mg tablet 20 mg PO Q12H muscle spasms 06/25/18 06/15/25 History pantoprazole 40 mg tablet,delayed 40 mg PO DAILY gi 06/25/18 06/15/25 History release furosemide 20 mg tablet 40 mg PO BID diuretic 10/13/21 06/13/25 History colchicine 0.6 mg tablet 0.6 mg PO PRN gout 12/02/21 08/22/24 History albuterol sulfate 2.5 mg/3 mL 2.5 mg (3 mL) inhalation Q4H PRN 01/05/23 Unknown Rx (0.083 %) solution for nebulization shortness of breath or wheezing #180 mL albuterol sulfate 90 mcg/actuation 2 inh inhalation Q4H PRN PRN Sob 01/05/23 Unknown Rx aerosol inhaler &/Or Wheezing #8.5 grams montelukast 10 mg tablet 10 mg PO DAILY allergies #90 tabs 01/05/23 06/15/25 Rx spacer #1 ea 01/05/23 Unknown Rx potassium citrate 10 mEq (1,080 10 meq PO DAILY 07/23/23 06/15/25 History mg) tablet,extended release allopurinol 300 mg tablet 300 mg PO BID gout 12/19/24 06/15/25 History 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,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,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 #1 ea 12/19/24 Unknown Rx (FreeStyle Nancy 3 [place]) rosuvastatin 5 mg tablet 5 mg PO QDAY #30 tabs 12/19/24 06/14/25 Rx budesonide-formoterol HFA 160 2 inh inhalation BID #1 ea 01/23/25 06/15/25 Rx mcg-4.5 mcg/actuation aerosol inhaler (Symbicort) levetiracetam 500 mg tablet 500 mg PO BID seizures 01/23/25 06/15/25 History nebivolol 10 mg tablet 10 mg PO DAILY heart 01/23/25 06/15/25 History 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 sensor (FreeStyle #2 ea 02/06/25 Unknown Rx Nancy 3 Plus Sensor device) insulin regular hum U-500 conc 500 See Rx Instructions subcut TIDWMEAL 06/01/25 06/13/25 History unit/mL(3 mL) subcut pen (Humulin R U-500 (Conc) Insulin Kwikpen) tirzepatide 5 mg/0.5 mL 5 mg subcut .tuesdays 06/15/25 06/13/25 History subcutaneous pen injector (Ean) BIPAP -Bilevel Positive Airway ROBERT 06/16/25 Unknown History Pressure ([facility] INFORMATIONAL USE ONLY) OXYGEN - Supplemental ([facility] 06/16/25 Unknown History INFORMATIONAL USE ONLY) celecoxib 200 mg capsule 200 mg PO BIDCM #1 cap 06/16/25 06/15/25 Rx oxycodone 5 mg tablet 15 mg (3 x 5 mg) PO TID pain 7 06/16/25 Unknown Rx days #63 tabs Allergy/AdvReac Type Severity Reaction Status Date / Time duloxetine Allergy Severe Other Verified 07/05/25 12:17 animal dander Allergy Chest Verified 07/05/25 12:17 tightness grass pollen Allergy Other Verified 07/05/25 12:17 house dust Allergy Other Verified 07/05/25 12:17 pollen extracts Allergy Other Verified 07/05/25 12:17 Family History Father Chronic a-fib CVA (cerebral vascular accident) Mother ROBERT (obstructive sleep apnea) Breast cancer Grandfather Cancer bladder Other Diabetes Hypertension Thyroid disorder Surgical History History of surgery History of surgery H/O hernia repair H/O eye surgery S/P SURFACE GRINDING MACHINE HAND shunt Social History household members: spouse Smoking Status: Never smoker ROS ROS ED ROS Narrative Pertinent Positives: Right lower extremity edema pain sedentary lifestyle Pertinent Negatives: Fevers chills redness vomiting weakness numbness tingling chest pain or pressure shortness of breath The remainder of review of systems negative unless otherwise stated in the HPI above. Systems reviewed including constitutional, psychiatric, cardiovascular, respiratory, integument, HENT, gastrointestinal. EXAM Physical Exam Narrative Exam Narrative: Patient is afebrile hemodynamically stable does not appear toxic or in distress they are normocephalic and atraumatic abdomen intact and equal MSPs no evidence of an arterial occlusion there is no overlying cellulitis crepitus vesicular lesions or other skin discoloration or hemorrhagic bullae there is right lower extremity edema it does appear to be greater than the left however he states that he has a history of cerebral palsy so it is always larger compared to his left. Does have some mild calf tenderness on the right Const Vital Signs: 07/05/25 12:15 07/05/25 15:33 07/05/25 15:43 Temperature 98.3 F Temperature Source Oral Pulse Rate 89 93 Respiratory Rate 16 20 H Respiratory Effort Non-Labored Blood Pressure 177/90 H 153/82 H Blood Pressure Mean 119 105 Pulse Ox 97 91 Oxygen Delivery Method Room Air Room Air MDM MDM MDM Narrative Medical decision making narrative: Nursing notes, triage notes, available previous documentation, and vital signs were reviewed. Any discrepancies noted were addressed. Differential Diagnoses: DVT low suspicion for cellulitis or necrotizing process this is not an arterial occlusion lower suspicion for heart failure Imaging Reviewed: Venous doppler negative for DVT Previous Documentation Reviewed: None available or applicable at this time. ED Course: Patient presenting with right lower extremity edema and calf tenderness patient will undergo DVT study believe any labs or other additional imaging is necessary at this time. 1613: Patient's venous Doppler study was negative for DVT patient can follow-up with his medical care team in the outpatient setting return precautions follow-up recommendations provided he is stable for discharge home This note was made utilizing voice recognition software. All attempts were made to correct spelling or other errors prior to note completion. However, due to the fast-paced nature of emergency medicine, some errors may still be present. Discharge Plan Triage Chief Complaint: Edema ED Provider: Luna Esparza Dx/Rx/DC Orders Clinical Impression: Pain and swelling of right lower extremity, Congenital dysplasia of left hip, History of diabetes mellitus Instructions: ED Peripheral Edema, Unilateral Prescriptions: No Action colchicine 0.6 mg tablet 0.6 mg PO PRN Patient Comments: take 1 tablet by mouth every 6 hours if needed for GOUT FLARE albuterol sulfate 2.5 mg /3 mL (0.083 %) solution for nebulization 2.5 mg inhalation Q4H PRN (Reason: shortness of breath or wheezing) Qty: 180 11RF Patient Comments: has not taken to date, on standby albuterol sulfate 90 mcg/actuation HFA aerosol inhaler 2 inh inhalation Q4H PRN PRN (Reason: Sob &/Or Wheezing) Qty: 8.5 11RF Patient Comments: has not taken, on standby montelukast 10 mg tablet 10 mg PO DAILY Qty: 90 3RF (DME) spacer See Rx Instructions .ROUTE .MEDSUPPLY Qty: 1 0RF Rx Instructions: As directed potassium citrate 10 mEq (1,080 mg) tablet extended release 10 meq PO DAILY Patient Comments: TAKE 1 TABLET BY MOUTH EVERY DAY (DME) FreeStyle Nancy 3 [place] Misc See Rx Instructions .Route Qty: 1 0RF Rx Instructions: As directed rosuvastatin 5 mg tablet 5 mg PO QDAY Qty: 30 5RF budesonide-formoterol [Symbicort] 160-4.5 mcg/actuation HFA aerosol inhaler 2 inh inhalation BID Qty: 1 11RF Rx Instructions: administer with spacer, rinse mouth after each use (DME) FreeStyle Nancy 3 Plus Sensor Device See Rx Instructions .Route Qty: 2 5RF Rx Instructions: 1 sensor 15 q days allopurinol 300 mg tablet 300 mg PO BID Patient Comments: gout nebivolol 10 mg tablet 10 mg PO DAILY Patient Comments: blood pressure baclofen 20 MG tablet 20 mg PO Q12H pantoprazole 40 MG tablet 40 mg PO DAILY levetiracetam 500 mg tablet 500 mg PO BID Patient Comments: seizure furosemide 20 MG tablet 40 mg PO BID Patient Comments: Diuretic (water pill) Humulin R U-500 (Conc) Kwikpen 500 unit/mL (3 mL) insulin pen See Rx Instructions subcut TIDWMEAL Rx Instructions: SLIDING SCALE subcutaneously 3 times per day with meals; Mounjaro 5 mg/0.5 mL pen injector 5 mg subcut .tuesdays oxycodone 5 mg tablet 15 mg PO TID 7 Days Qty: 63 0RF Rx Instructions: two-three tid for pain BIPAP -Bilevel Positive Airway Pressure ([facility] INFORMATIONAL USE ONLY) Patient Comments: DME: Sha Pt is unaware of settings however knows he has a 2L oxygen bleed in OXYGEN - Supplemental ([facility] INFORMATIONAL USE ONLY) Patient Comments: DME: desiree Dalton CM not patient wear 2lpm at rest and with exertion as needed. celecoxib 200 mg capsule 200 mg PO BIDCM Qty: 1 0RF Rx Instructions: Increase your Celebrex to 1 twice a day Primary Care Provider: lAiza Roman Referrals: Aliza Roman MD [Primary Care Provider, Family Practice] Activity Restrictions/Additional Instructions: You can follow-up with your primary care doctor please return if you are having worsening symptoms Print Language: Nepali Disposition Disposition: Home, Self Care D/C Safety Score for UGIB Assessment [place] Bleeding Score (GBS): Stratifies upper GI bleeding patients who are low-risk and candidates for outpatient management. Hemoglobin, BUN, Recent Vital Signs: Pulse Rate 93 Blood Pressure 153/82 Score Interpretation: Score of 0: A GBS of 0 is a ?Low Risk? GI bleed, and is highly sensitive (99.6% in a 2007 retrospective study) for predicting which patients did not require any ?medical intervention?: blood transfusion, endoscopy, or surgery. This was confirmed in a 2009 Lanc study where patients with a score of 0 were actually discharged and had no GI bleeding mortality at 6 month followup Score above 0: A GBS greater than zero suggests a ?High Risk? GI bleed that is likely to require ?medical intervention?: transfusion, endoscopy, or surgery. A higher GBS also correlated with a higher likelihood of needing intervention Scores >/= 6 are associated with >50% risk of needing intervention D/C Safety Score for LGIB Assessment Assessment Tool: Readmission and adverse event risk in patients with acute lower GI bleeding. Hemoglobin and Recent Vital Signs: Pulse Rate 93 07/05/25 15:43 Blood Pressure 153/82 07/05/25 15:43 Score Interpretation: Probability Percentage of safe discharge (absence of rebleeding, blood transfusion, therapeutic intervention, 28 day readmission, or ) Score of 8 or below: Consider discharge, with appropriate precautions. Score of 9 or above: Discharge NOT recommended. Consider admission with further workup and resuscitation as necessary.
== END 2025-07-05 16:50 | disposition home or self-care (01) ==
PROVIDERS: Emergency Provider Specialist/Technologist Athletic Trainer; PCP Family Medicine; Visit Provider Specialist/Technologist Athletic Trainer
DX: M79.604 Pain in right leg (principal); E11.9 Type 2 diabetes mellitus without complications; M79.89 Other specified soft tissue disorders; Q65.89 Other specified congenital deformities of hip; E78.00 Pure hypercholesterolemia, unspecified; I10 Essential (primary) hypertension; K21.9 Gastro-esophageal reflux disease without esophagitis
CPT/HCPCS: 93971; 99284

== ENCOUNTER 2025-07-05 22:45 | Emergency (ER) | payer MEDICARE, MEDICAID, SELFPAY ==
[2025-07-05 22:46] VITALS: BP 179/75; PULSE 95; RESP 16; TEMP 36.6; O2SAT 96
[2025-07-05 23:06] VITALS: BMI 60.2
[2025-07-05 23:13] VITALS: PULSE 96; RESP 96; O2SAT 97
--- OUTSIDE RECORDS SUMMARY | 2025-07-05 23:37 | XMS RPT_ITS | CCD ---
Author Organization [facility] Care Team Providers Care Hydro Operator Name Role Phone ALIZA ROMAN Primary Care Physician Dr. Aliza Roman Primary Care Provider [phone] Dr. Aliza Roman Referring Provider [phone] Kenneth Gaytan Attending Provider GUICHO Gonzalez Attending Provider Dr. Bruce Victor Attending Provider Dr. Aliza Roman Primary Care Provider [phone] Dr. Aliza Roman Referring Provider [phone] Myrna CHAN NP-Heaven Najera Attending Provider [phone] Dr. Aliza Roman Primary Care Provider [phone] Dr. Aliza Roman Referring Provider [phone] Myrna CHAN, DUSTIN-C Dania Attending Provider [phone] GUICHO Gonzalez Attending Provider Dr. Aliza Roman Primary Care Provider [phone] Dr. Aliza Roman Referring Provider [phone] Kenneth Gaytan Attending Provider MD Denny Santos Attending Provider Denny Stevens MD Primary Care Provider Denny Santos MD Unavailable Dr. Aliza Roman Primary Care Provider Dr. Aliza Roman Referring Provider [phone] Kenneth Gaytan Attending Provider MD Denny Santos Attending Provider [phone] SIMIN HENDRIX Referring Unavailable NANCY, DENNY MICHAELS Primary Care Unavailable SIMIN HENDRIX Attending Unavailable NANCY, DENNY MICHAELS Primary Care Unavailable NANCY, DENNY MICHAELS Primary Care Unavailable TORITO DUEÑAS Attending Unavailable NANCY, DENNY MICHAELS Primary Care Unavailable TORITO DUEÑAS Referring Unavailable Dr. Aliza Roman Primary Care Provider [phone] Dr. Aliza Roman Referring Provider Myrna HOOD MAKER, ROBERT Najera Attending Provider ALIZA ROMAN Primary Care Physician KAILA GALEANA Attending Unavail able ALIZA ROMAN Primary Care Unavailable KAILA GALEANA Attending Unavail able JESSIE ALIZA Primary Care Unavailable Dr. Aliza Roman MD Primary Care Provider Fred GONZALEZ, Dr. Gonzalez Attending Provider Fred GONZALEZ, Dr. Gonzalez Referring Provider Dr. Aliza Roman MD Attending Provider [phone] Dr. Aliza Roman MD Referring Provider [phone] Dr. Madhu Page DO Referring Provider Dr. Madhu Page DO Emergency Provider [phone] Aliza Roman MD Primary Care Provider Fred GONZALEZ, Dr. Gonzalez Attending Provider [phone] Fred GONZALEZ, Dr. Gonzalez Referring Provider [phone] Jessie GONZALEZ, Dr. Abrams Attending Provider [phone] Dr. Aliza Roman MD Referring Provider Dr. Madhu Page DO Attending Provider Camilo GIVENS, Dr. Leung Referring Provider [phone] Camilo GIVENS, Dr. Leung Emergency Provider [phone] Mamadou Mendoza MD Attending Provider Denisse GIVENS, Dr. Pereyra Referring Provider [phone] Davonte Mendez DO Emergency Provider Dr. Aliza Roman MD Primary Care Provider [phone] Dr. Davonte Mendez DO Attending Provider Karan HOOD MAKER-CLesvia Attending Provider Fred GONZALEZ, Dr. Gonzalez Attending Provider Fred GONZALEZ, Dr. Gonzalez Referring Provider Jessie GONZALEZ, Dr. Abrams Primary Care Provider [phone] Dr. Aliza Roman MD Referring Provider [phone] Myrna HOOD MAKER-CDania Attending Provider Jessie GONZALEZ, Dr. Abrams Primary Care Provider [phone] Dr. Aliza Roman MD Referring Provider Karan HOOD MAKER-CLesvia Attending Provider Dr. Dre Johnson MD Emergency Provider Collins GONZALEZ, Flaco Unavailable Unavailable Collins GONZALEZ, Flaco Unavailable Unavailable Miedel, Aliza Primary Care Unavailable Carlos Ibarra Referring Unavailable Carlos Ibarra Attending Unavailable Miedel, Aliza Primary Care Unavailable Carlos Ibarra Referring Unavailable Carlos Ibarra Attending Unavailable Miedel, Aliza Primary Care Unavailable Fred, Carlos Referring Unavailable Carlos Ibarra Attending Unavailable Miedel, Aliza Primary Care Unavailable Carlos Ibarra Attending Unavailable Fred, Carlos Referring Unavailable Miedel, Aliza Primary Care Unavailable Miedel, Aliza Referring Unavailable Dania Norris NP Attending Unavailable Lesvia Russo Attending Unavailable Vted, Sultan Primary Care Unavailable Vtedel, Aliza Referring Unavailable Miedel, Sultan Primary Care Unavailable Miedel, Aliza Referring Unavailable Lesvia Russo Attending Unavailable Miedel, Sultan Primary Care Unavailable Flaco Hardin Attending Unavailable Flaco Hardin Consulting Unavailable Flaco Hardin Admitting Unavailable Hector Harris Attending Unavailable Hector Harris Consulting Unavailable Vted, Sultan Primary Care Unavailable Miedel, Aliza Referring Unavailable Miedel, Aliza Attending Unavailable Madhu Page Referring Unavailable Madhu Page Attending Unavailable Vted, Sultan Primary Care Unavailable Davonte Mendez Attending Unavailable Mied, Sultan Primary Care Unavailable Miedel, Sultan Primary Care Unavailable Dre Johnson Attending Unavailable Lovelyel, Sultan Primary Care Unavailable Flaco Hardin Consulting Unavailable Flaco Hardin Admitting Unavailable Hector Harrsi Attending Unavailable Jessie GONZALEZ, Dr. Abrams Primary Care Physician Dr. Dre Johnson MD Attending Physician Dr. Dre Johnson MD Emergency Department Physician Dr. Carlos Ibarra MD Attending Physician Dr. Carlos Ibarra MD Referring Provider Romulo Estrella MD Emergency Department Physician Dr. Flaco Hardin DO Admitting Physician Selin vailable Dr. Flaco Hardin DO Nurse Practitioner Unav ailable Dr. Hector Harris DO Attending Physician Dr. Hector Harris DO Nurse Practitioner Flaco Guadalupe MD Unavailable Unavailable Bobby Mas Attending Unavailable Bobby Mas Referring Unavailable Flaco Guadalupe Attending Unavaila ble GuadalupeFlaco vega Referring Unavaila ble GuadalupeFlaco vega Attending Unavaila ble No, Physician Referring Unavailable Flaco Guadalupe Attending Unavaila ble No, Physician Referring Unavailable Allergies Allergy Classification Reported Allergen(s) Allergy Type Date of Onset Reaction(s) Facility DULoxetine (1 source) DULoxetine; Translations: [duloxetine] Drug Allergy Seizure (finding) [facility] (1 source) Dust Allergy to substance 2 SNEEZING, COUGHING [facility] Work Phone: (1 source) Pollen Allergy to substance 2 SNEEZING, COUGHING [facility] Work Phone: (1 source) grass Allergy to substance 2 SNEEZING, COUGHING [facility] Work Phone: (16 sources) Grass pollen; Translations: [grass pollen] Allergy to substance 2 Other [facility] Comment on above: SNEEZING, COUGHING (15 sources) house dust allergenic extract Drug Allergy 2 Other [facility] Comment on above: SNEEZING, COUGHING (15 sources) Pollen Allergy to substance 2 Other [facility] Comment on above: SNEEZING, COUGHING (1 source) bird dander Allergy to substance 2 Chest tightness [facility] Work Phone: (15 sources) animal dander; Translations: [animal dander] Allergy to substance 3 Chest tightness [facility] Comment on above: bird dander (6 sources) Seasonal allergy; Translations: [SEASONAL ALLERGIES] Allergy to substance 1 Other: See Comments [facility] Work Phone: (2 sources) DULoxetine; Translations: [duloxetine] Drug Allergy 5 Seizure (finding) [facility] Comment on above: SEIZURE-LIKE SYMPTOM S (1 source) DULoxetine Drug Allergy 5 [facility] (1 source) house dust allergenic extract Drug Allergy 5 [facility] (1 source) Pollen Drug allergy (disorder) 5 [facility] Medications Current Medications Medication Drug Class(es) Dates Sig (Normalized) Sig (Original) [id number] 200 actuat albuterol 0.09 mg/actuat metered dose inhaler (20 sources) beta2-Adrenergic Agonist Start: 01-05-2023 Albuterol Sulfate 90 mcg/actuation HFA aerosol inhaler Active 2 NMA INHALATION EVERY 4 HOURS NEEDED as needed for Sob &/Or Wheezing 8.5 11 January 05, 2023 12:06pm Complies with drug therapy Start: 01-05-2023 Albuterol Sulf ate Active 2 [...] or wheezing 180 11 January 05, 2023 12:06pm Complies with drug therapy Start: 05-07-2016 End: 01-05-2023 Albuterol Sulfate 18 GM HFA aerosol inhaler Discontinued 18 NMA IH EVERY 4 HOURS NEEDED as needed for Sob &/Or Wheezing May 06, 2016 11:00pm January 05, 2023 12:07pm Start: 05-07-2016 End: 01-05-2023 Albuterol Sulfate 18 [...] EVERY 4 HOURS NEEDED 25 0 January 22, 2014 11:00pm January 27, 2014 1:32pm Use q4 hours and PRN for wheezing [...] PO TWICE A DAY December 19, 2024 12:19pm gout Complies with drug therapy Start: 05-16-2014 End: 12-19-2024 take 1 tablet by mouth once daily Allopurinol 300 MG tablet Discontinued 300 mg PO DAILY June 08, 2015 11:00pm December 19, 2024 12:22pm gout Comment on above: Take 1 tablet by scott th once daily. Baclofen (20 sources) gamma-Aminobutyric Acid-ergic Agonist Start: 01-19-2024 BACLOFEN 20 MG TABLE T BACLOFEN 20 MG TABLET, 0 Refill(s) Start Date: 01/19/24 Status: Ordered Start: 06-25-2018 take 1 tablet by scott th every twelve hours Baclofen 20 MG tablet Active 20 mg PO Q12H June 24, 2018 11:00pm muscle spasms Complies with drug therapy Start: 06-25-2018 take 20 mg by mouth once daily Baclofen Active 20 MG PO DAILY June 25, 2018 12:00am Comment on above: Take 1 tablet by scott th every afternoon. BIPAP -Bilevel Positive Airway Pressure ([facility] INFORMATIONAL USE ONLY) (1 source) Start: 06-16-2025 Blood-Glucose Sensor (Freestyle Nancy 3 Plus Sensor) device (8 sources) Start: 02-06-2025 Blood-Glucose Sensor (Freestyle Nancy 3 Plus Sensor) device Active 0 .Route 2 February 06, 2025 12:26pm Type 2 diabetes mellitus Type 2 diabetes [...] Sensor) device Discontinued 0 .Route 2 December 18, 2024 11:00pm February 06, 2025 12:27pm Type 2 diabetes mellitus Type 2 diabetes mellitus without complications 1 sensor 15 q days Start: 12-19-2024 End: 02-06-2025 Blood-Glucose Sensor (Freest yle Nancy 3 Plus Sensor) device Discontinued 0 .Route 2 5 December 19, 2024 12:00am February [...] 2024 12:00am 1 sensor 15 q days Blood-Glucose,Pinion Polisher,Cont (Freestyle Nancy 3 Holly) misc (5 sources) Start: 12-19-2024 Blood-Glucose,Pinion Polisher,Cont (Freestyle Nancy 3 Holly) misc Active 0 .Route 1 0 December 18, 2024 11:00pm Type 2 diabetes mellitus Type 2 diabetes mellitus without complications As directed Start: 12-19-2024 Blood-Glucose, Pinion Polisher,Cont (Freestyle Nancy 3 Holly) misc Active 0 .Route 1 0 December 19, 2024 12:00am Type 2 diabetes mellitus Type 2 diabetes mellitus without complications As directed Start: 12-19-2024 Blood-Glucose, Pinion Polisher,Cont (Freestyle Nancy 3 Holly) misc Active 0 .Route 1 December 19, 2024 12:00am As directed Budesonide-Formoterol (20 sources) Corticosteroid, beta2-Adrenergic Agonist Start: 01-23-2025 Budesonide-Formoterol (Symbicort) 160-4.5 mcg/actuation HFA aerosol inhaler Active 2 NMA INHALATION TWICE A DAY 1 January 22, 2025 11:00pm administer with spacer, rinse mouth after each use Complies with drug therapy Start: 01-23-2025 Budesonide-For moterol (Symbicort) 160-4.5 mcg/actuation [...] A DAY 10.2 January 05, 2023 12:06pm December 19, 2024 12:31pm Start: 01-05-2023 End: 12-19-2024 Budesonide-Formoterol (Symbi ale) [...] 05, 2023 12:07pm Start: 07-08-2022 End: 01-05-2023 Budesonide-Formoterol (Symbi ale) [...] 2 NMA INHALATION TWICE A DAY 1 3 November 06, 2020 11:00pm July 08, 2022 2:03pm administer with spacer, rinse mouth after each use Start: 11-07-2020 End: 07-08-2022 Budesonide-Formoterol (Symbi ale) 160-4.5 mcg/actuation HFA aerosol inhaler Discontinued 2 NMA INHALATION TWICE A DAY 1 3 November 07, 2020 12:00am July 08, 2022 [...] Start: 11-07-2020 take 1 puff(s) by mo ut twice daily Budesonide-Formoterol (Symbicort) 160-4.5 mcg/actuation HFA aerosol inhaler Active 2 PUFF INHALATION TWICE A DAY November 07, 2020 12:00am administer with spacer, rinse mouth after each use Start: 05-07-2016 End: 11-07-2020 Budesonide-Formoterol 1 INHA LER inhaler Discontinued 2 NMA INHALATION TWICE A DAY May 06, 2016 11:00pm November 07, 2020 12:36pm lungs Start: 05-07-2016 End: 11-07-2020 Budesonide-Formoterol 1 [...] 2020 1:36pm celecoxib 200 mg oral capsule (6 sources) Nonsteroidal Anti-inflammatory Drug Start: 06-16-2025 take 1 capsule by mouth twice daily at mealtime Celecoxib 200 mg capsule Active 200 mg PO TWICE DAILY WITH MEALS June 16, 2025 12:13pm Increase your Celebrex to 1 twice a day Complies with drug therapy Start: 12-19-2024 End: 06-16-2025 take 1 capsule by mouth once daily Celecoxib 200 mg capsule Discontinued 200 mg PO DAILY December 18, 2024 11:00pm June 16, 2025 12:13pm colchicine 0.6 mg oral tablet (20 sources) Start: 12-02-2021 Colchicine 0.6 mg tablet Active 0.6 mg PO NEEDED December 01, 2021 11:00pm gout Complies with drug therapy Comment on above: take 1 tablet by scott every 6 hours if needed for GOUT FLARE doxycycline monohydrate 100 mg oral tablet (20 sources) Tetracycline-c lass Drug Start: 01-19-2024 take 1 tablet by mouth twice daily doxycycline monohydrate 100 mg oral tablet TAKE 1 TABLET BY MOUTH 2 TIMES A DAY FOR 10 DAYS Start Date: 01/19/24 Status: Ordered Start: 05-02-2022 End: 01-05-2023 take 1 capsule by mouth twice daily Doxycycline Hyclate 100 mg capsule Discontinued 100 mg PO TWICE A DAY 20 May 01, 2022 11:00pm January 05, 2023 11:43am Start: 02-14-2022 End: 02-27-2022 take 1 capsule by mouth twice daily Doxycycline Hyclate 100 mg capsule Discontinued 100 mg PO TWICE A DAY 14 February 13, 2022 11:00pm February 27, 2022 12:42pm furosemide 40 mg oral tablet (20 sources) Loop Diuretic Start: 01-19-2024 furosemide 40 mg oral tablet Dose : 40 mg = 1 tab(s), 0 Refill(s) Start Date: 01/19/24 Status: Ordered Start: 10-13-2021 take 2 tablets by mo [facility] twice daily Furosemide 20 MG tablet Active 40 mg PO TWICE A DAY October 13, 2021 12:54pm diuretic Complies with drug therapy Start: 10-13-2021 take 40 mg by mouth twice janice y Furosemide Active 40 MG PO TWICE A DAY October 13, 2021 1:54pm Start: 01-30-2020 End: 10-13-2021 take 2 tablets by mouth once daily Furosemide 20 MG tablet Discontinued 40 mg PO DAILY 0 January 30, 2020 8:25am October 13, 2021 12:54pm diuretic Start: 01-30-2020 End: 10-13-2021 take 40 mg by mouth once daily Furosemide Discontinued 40 MG PO DAILY January 30, 2020 9:25am October 13, 2021 1:54pm Start: 06-09-2015 End: 01-30-2020 take 2 tablets by mouth twice daily Furosemide 20 MG tablet Discontinued 40 mg PO TWICE A DAY June 08, 2015 11:00pm January 30, 2020 8:25am diuretic Start: 06-09-2015 End: 01-30-2020 take 40 [...] insulin, regular, human 500 unt/ml pen injector (9 sources) Insulin Start: 06-01-2025 Insulin Regula r Hum U-500 Conc (Humulin R U-500 (Conc) Kwikpen) 500 unit/mL (3 mL) insulin pen Active 0 U SC 3 times per day with meals May 31, 2025 11:00pm SLIDING SCALE subcutaneously 3 times per day with meals; Complies with drug therapy Start: 02-06-2025 End: 06-01-2025 Insulin Regular Hum U-500 Co nc (Humulin R U-500 (Conc) Kwikpen) 500 unit/mL (3 mL) insulin pen Discontinued 115 U SC 3 times per day with meals 18 February 06, 2025 12:27pm June 01, 2025 2:26pm Type 2 diabetes mellitus Type 2 diabetes mellitus without complications Start: 12-19-2024 End: 02-06-2025 Insulin Regular Hum U-500 Co nc (Humulin R U-500 (Conc) Kwikpen) 500 unit/mL (3 mL) insulin pen Discontinued 100 U SC 3 times per day with meals 18 December 18, 2024 11:00pm February 06, 2025 12:28pm Type 2 diabetes mellitus Type 2 diabetes mellitus without complications Multivitamin With Minerals (9 sources) Start: 01-28-2020 take 1 tablet by mouth once daily Multivitamin With Minerals Active 1 TABLET PO DAILY January 27, 2020 11:00pm Start: 01-28-2020 take 1 tablet by scott once daily Multivitamin With Minerals Active 1 TABLET PO DAILY January 28, 2020 12:00am oxyCODONE hydrochloride 5 mg oral tablet (17 sources) Opioid Agonist Start: 06-16-2025 take 3 tablets by mouth three times daily for pain Start: 04-14-2020 End: 04-16-2020 take 1 tablet by mouth every six hours as needed for pain Oxycodone 5 MG tablet Discontinued 5 mg PO EVERY 6 HOURS NEEDED as needed for Pain Score 6-10/10 8 2 0 April 14, 2020 April 14, 2020 11:00pm April 15, 2020 11:02pm Gout Gout, unspecified OXYGEN - Supplemental ([facility] INFORMATIONAL USE ONLY) (1 source) Start: 06-16-2025 pantoprazole 40 mg delayed release oral tablet (20 sources) Proton Pump Inhibitor Start: 06-25-2018 take 1 tablet by mouth once daily Pantoprazole 40 MG tablet Active 40 mg PO DAILY June 24, 2018 11:00pm gi Complies with drug therapy Comment on above: Take 1 tablet by scott th every afternoon. potassium citrate 10 meq extended release oral tablet (14 sources) Start: 07-23-2023 take 1 tablet by mouth once daily Potassium Citrate 10 mEq (1,080 mg) tablet extended release Active 10 meq PO DAILY July 23, 2023 12:00am Complies with drug therapy predniSONE 20 mg oral tablet (20 sources) [...] tablet Discontinued 10 mg PO DIRECTED 33 0 June 08, 2015 11:00pm May 16, 2016 8:27pm Take 4 tablets daily for 3 days, then 3 daily for 3 days, then 2 daily for 3 days, then 1 a day for 3 days then 1 QOD for 3 doses. Start: 01-23-2014 End: 01-27-2014 take 3 tablets by mouth once daily Prednisone 20 MG tablet Discontinued 60 mg PO DAILY@0800 15 0 January 22, 2014 11:00pm January 27, 2014 1:32pm Start: 01-23-2014 End: 01-27-2014 take 60 mg by mouth once daily Prednisone Discontinued 60 MG PO DAILY@0800 15 January 23, 2014 12:00am January 27, 2014 2:32pm rosuvastatin calcium 5 mg oral tablet (5 sources) HMG-CoA Reductase Inhibitor Start: 12-19-2024 take 1 tablet by mouth once daily Rosuvastatin 5 mg tablet Active 5 mg PO daily 30 5 December 18, 2024 11:00pm Hyperlipidemia Hyperlipidemia, unspecified Complies with drug therapy spacer (14 sources) Start: 01-05-2023 spacer Active 0 .ROUTE .MEDSUPPLY 1 January 04, 2023 11:00pm As directed Start: 01-05-2023 spacer Active 0 .ROUTE .MEDSUPPLY 1 January 05, 2023 12:00am As directed Start: 01-05-2023 spacer Active 0 .ROUTE .MEDSUPPLY January 04, 2023 11:00pm As directed Start: 01-05-2023 spacer Active 0 .ROUTE .MEDSUPPLY January 05, 2023 12:00am As directed Tirzepatide (4 sources) Start: 06-15-2025 Tirzepatide (M ounjaro) 5 mg/0.5 mL pen injector Active 5 mg SC .tuesdaysJune 14, 2025 11:00pm Complies with drug therapy Start: 06-12-2025 End: 06-15-2025 Tirzepatide (Mounjaro) 5 mg/ 0.5 mL pen injector Discontinued 5 mg SC SA 6 0 June 12, 2025 3:10pm June 15, 2025 8:10pm Start: 06-01-2025 End: 06-12-2025 Tirzepatide (Mounjaro) 5 mg/ 0.5 mL pen injector Discontinued 5 mg SC SA May 31, 2025 11:00pm June 12, 2025 3:10pm Start: 02-06-2025 End: 06-01-2025 Tirzepatide (Mounjaro) 5 mg/ 0.5 mL pen injector Discontinued 5 mg SC EVERY WEEK 2 February 05, 2025 11:00pm June 01, 2025 2:26pm Type 2 diabetes mellitus Type 2 diabetes mellitus with hyperglycemia 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 0 04/14/2020 Active Start: 04-14-2020 End: 06-15-2025 Acetaminophen 325 MG tablet Discontinued 650 mg PO EVERY 6 HOURS NEEDED as needed for Pain Score 1-10/Temp > 100.7 F 0 April 13, 2020 11:00pm June 15, 2025 8:07pm Start: 04-14-2020 take 650 mg by mouth every six hours as needed Acetaminophen Active 650 MG PO EVERY 6 HOURS NEEDED April 14, 2020 12:00am Comment on above: Take by mouth. 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 Start: 12-18-2023 End: 03-17-2024 Hydrocodone-Acetaminophen 5- 325 mg tablet Discontinued 1 {tbl} PO EVERY 6 HOURS December 17, 2023 11:00pm March 17, 2024 7:03am Start: 12-18-2023 take 1 tablet by scott [...] 20 5 0 January 30, 2023 February 02, 2023 11:00pm February 03, 2023 11:05pm Contusion of left hip Dysplasia of hip Contusion of left hip, initial encounter Other specified congenital deformities of hip Start: 01-13-2023 End: 02-04-2023 take 1 tablet by mouth every six hours as needed Hydrocodone-Acetaminophen Discontinued 1 TABLET PO EVERY 6 HOURS NEEDED 20 5 January 30, 2023 February 04, 2023 12:05am amoxicillin 500 mg / clavulanate 125 mg oral tablet (20 sources) Penicillin-class Antibacterial Start: 02-14-2022 End: 02-27-2022 Amoxicillin-Pot Clavulanate (Augmentin) 500-125 mg tablet Discontinued 1 {tbl} PO TWICE A DAY 14 0 February 13, 2022 11:00pm February 27, 2022 12:41pm Start: 05-16-2016 End: 05-19-2016 take 1 tablet by mouth every twelve hours Amoxicillin-Pot Clavulanate 875 MG tablet Discontinued 875 mg PO Q12H 20 0 May 15, 2016 11:00pm May 19, 2016 1:51pm dapagliflozin 10 mg oral tablet (20 sources) Sodium-Glucose Cotransporter 2 Inhibitor Start: 09-23-2023 take 1 tablet by mouth once FARXIGA 10 mg tablet Take 1 tablet by mouth every afternoon. 0 09/23/2023 Active Start: 01-22-2023 End: 12-23-2023 take 1 tablet by mouth once daily Dapagliflozin Propanediol (Farxiga) 5 mg tablet Discontinued 10 mg PO DAILY July 23, 2023 1:06pm December 23, 2023 4:14pm Comment on above: Take 1 tablet by scott th every afternoon. FLUoxetine 10 mg oral capsule (20 sources) Serotonin Reuptake Inhibitor Start: 0 End: take 2 capsules by mouth once daily Fluoxetine 10 mg capsule Discontinued 20 mg PO DAILY August 15, 2020 1:28pm December 19, 2024 12:31pm depression Start: 08-15-2020 take 20 mg by mouth once daily Fluoxetine Active 20 MG PO DAILY August 15, 2020 2:28pm Start: 01-28-2020 End: 08-15-2020 take 1 capsule by mouth once daily Fluoxetine 10 mg capsule Discontinued 10 mg PO DAILY January 27, 2020 11:00pm August 15, 2020 1:28pm depression Start: 06-09-2015 End: 03-23-2019 take 1 capsule by mouth once daily Fluoxetine 10 MG capsule Discontinued 10 mg PO DAILY June 08, 2015 11:00pm March 23, 2019 12:19pm depression take 1 tablet by scott th once daily FLUoxetine HCl 20 mg tablet Take 20 mg by mouth once daily. 0 Active Comment on above: Take 20 mg by mouth once daily. fluticasone propionate 0.05 mg/actuat metered dose nasal spray (20 sources) Corticosteroid Start: 03-23-2019 End: 12-19-2024 Fluticasone Propionate 50 mcg/actuation spray,suspension Discontinued 2 NMA INTRANASAL DAILY 09 07November 23, 2023 1:10pm December 19, 2024 12:31pm allergies Start: 03-23-2019 End: 11-23-2023 Fluticasone Propionate Disco ntinued 2 SPRAY INTRANASAL DAILY January 05, 2023 1:07pm November 23, 2023 2:10pm 12 hr guaiFENesin 1200 mg extended release oral tablet (20 sources) Start: 01-24-2017 End: 07-23-2023 Guaifenesin 1,200 MG tablet Discontinued 1000 mg PO TWICE A DAY as needed for Congestion January 24, 2017 5:16pm July 23, 2023 1:06pm Start: 01-24-2017 End: 07-23-2023 take 1000 mg [...] for Congestion 14 0 January 22, 2017 10:13pm January 24, 2017 5:16pm hydrOXYzine hydrochloride 25 mg oral tablet (16 sources) Antihistamine Start: 12-09-2018 End: 03-23-2019 take 1 tablet by mouth three to four times daily as needed Hydroxyzine Hcl 25 mg tablet Discontinued 25 mg PO 3 to 4 times per day as needed December 08, 2018 11:00pm March 23, 2019 12:20pm 3 ml insulin glargine 100 unt/ml pen injector (5 sources) Insulin Analog Start: 12-19-2024 End: 12-19-2024 Insulin Glargine (Lantus Solostar U-100 Insulin) 100 unit/mL (3 mL) insulin pen Discontinued 0 - 50 U SC AT BEDTIME December 18, 2024 11:00pm December 19, 2024 1:36pm 3 ml insulin lispro 100 unt/ml pen injector (5 sources) Insulin Analog Start: 12-19-2024 End: 12-19-2024 Insulin Lispro (Humalog Kwikpen Insulin) 100 unit/mL insulin pen Discontinued 40 U SC THREE TIMES A DAY December 18, 2024 11:00pm December 19, 2024 1:36pm ipratropium bromide 0.021 mg/actuat metered dose nasal spray (16 sources) Anticholinergic Start: 11-23-2023 Ipratropium Br omide Active 2 SPRAY INTRANASAL TWICE A DAY November 23, 2023 2:03pm Start: 07-23-2023 End: 12-19-2024 Ipratropium [place] 21 mcg ( 0.03 %) spray,non-aerosol Discontinued 2 NMA INTRANASAL TWICE A DAY 30 6 November 23, 2023 1:03pm December 19, 2024 12:31pm Start: 07-23-2023 End: 11-23-2023 Ipratropium [place] Disconti nued 2 SPRAY INTRANASAL TWICE A DAY July 23, 2023 1:00am November 23, 2023 2:04pm Ipratropium [place] 21 mcg ( 0.03 %) spray,non-aerosol (6 sources) Start: 11-23-2023 End: 12-19-2024 Ipratropium [place] 21 mcg (0.03 %) spray,non-aerosol Discontinued 2 NMA INTRANASAL TWICE A DAY 20 02November 23, 2023 2:03pm December 19, 2024 1:31pm Start: 11-23-2023 End: 12-19-2024 Ipratropium [place] 21 mcg ( 0.03 %) spray,non-aerosol Discontinued [...] PO TWICE A DAY January 28, 2020 8:43am January 23, 2025 1:49pm seizures levocetirizine dihydrochloride 5 mg oral tablet (16 sources) Histamine-1 Receptor Antagonist Start: 06-25-2018 End: 03-23-2019 take 1 tablet by mouth once daily Levocetirizine 5 MG tablet Discontinued 5 mg PO DAILY June 24, 2018 11:00pm March 23, 2019 12:22pm allergy 3 ml liraglutide 6 mg/ml pen injector (20 sources) GLP-1 Receptor Agonist Start: 12-02-2021 End: 12-23-2023 Liraglutide (Victoza 3-Denita) 0.6 mg/0.1 mL (18 mg/3 mL) pen injector Discontinued mL SC December 01, 2021 11:00pm December 23, 2023 4:15pm Comment on above: INJECT 1.8MG SUBCUTA NEOUSLY EVERY DAY 24 hr metFORMIN hydrochloride 500 mg extended release oral tablet (20 sources) Biguanide Start: 03-23-2019 End: 01-21-2023 Metformin 500 mg tablet extended release 24 hr Discontinued 1000 mg PO TWICE A DAY March 23, 2019 12:21pm January 21, 2023 12:21pm diabetes Start: 03-23-2019 End: 01-21-2023 take 1000 mg by mouth twice daily Metformin Discontinued 1000 MG PO TWICE A DAY March 23, 2019 1:21pm January 21, 2023 1:21pm Start: 06-09-2015 End: 03-23-2019 take 1 tablet by mouth once daily Metformin 500 MG tablet Discontinued 500 mg PO DAILY June 08, 2015 11:00pm March 23, 2019 12:23pm diabetes Start: 05-16-2014 End: 10-06-2023 take 1 tablet by mouth once daily metFORMIN (GLUCOPHAGE) 500 mg tablet Take 1 tablet by mouth once daily. 0 05/16/2014 10/06/2023 Discontinued Comment on above: Take 1 tablet by scott th once daily. montelukast 10 mg oral tablet (20 sources) Leukotriene Receptor Antagonist Start: 4 End: 3 take 1 tablet by mouth once daily Montelukast 10 MG tablet Discontinued 10 mg PO DAILY January 25, 2016 11:00pm January 05, 2023 12:07pm allergies Comment on above: Take 1 tablet by scott th once daily. Multivitamin With Minerals 1 EACH tablet (7 sources) Start: 0 End: 5 take 1 tablet by mouth once daily Multivitamin With Minerals 1 EACH tablet Discontinued 1 {tbl} PO DAILY January 27, 2020 11:00pm December 19, 2024 12:31pm vitamin Start: 01-28-2020 End: 12-19-2024 take 1 [...] A DAY as needed for pain 20 December 18, 2023 11:00pm December 19, 2024 12:31pm On Hold: Conflicting Appointment Start: 04-13-2020 End: 04-14-2020 take 1 tablet by mouth twice daily Naproxen 500 MG tablet Discontinued 500 mg PO TWICE A DAY April 12, 2020 11:00pm April 14, 2020 9:26am PAIN nebivolol 10 mg oral tablet (20 sources) Start: 05-16-2014 End: 01-23-2025 take 1 tablet by mouth once daily Nebivolol 10 MG tablet Discontinued 10 mg PO DAILY June 08, 2015 11:00pm January 23, 2025 1:49pm heart Comment on above: Take 1 tablet by scott once daily. nystatin 100 unt/mg topical powder (16 sources) Polyene Antifungal Start: 01-30-2020 End: 11-23-2023 Nystatin 1 APPLIC bottle Discontinued 1 NMA TOPICAL THREE TIMES A DAY 1 0 January 29, 2020 11:00pm November 23, 2023 12:47pm SKIN ISSUES Please contact the information source for Protocol details. Start: 01-30-2020 End: 11-23-2023 Nystatin Discontinued 1 APPL IC TOPICAL THREE TIMES A DAY 1 January 30, 2020 12:00am November 23, 2023 1:47pm SKIN ISSUES potassium chloride 10 meq extended release oral tablet (16 sources) Start: 07-14-2013 End: 09-30-2013 take 1 tablet by mouth once daily Potassium Chloride 10 MEQ tablet Discontinued 10 meq PO DAILY July 14, 2013 12:00am September 30, 2013 4:36pm potassium gluconate 2.5 meq oral tablet (20 sources) Start: 06-25-2018 Potassium Gluc wilman 2.5 mEq tab Take 1,080 mg by mouth. 0 06/25/2018 Active Start: 06-25-2018 End: 07-23-2023 Potassium 99 MG tablet Disco ntinued 1080 mg PO DAILY June 24, 2018 11:00pm July 23, 2023 1:09pm supplement Start: 06-25-2018 End: 07-23-2023 take 1080 mg by mouth once daily Potassium Discontinued 1080 MG PO DAILY June 25, 2018 12:00am July 23, 2023 2:09pm Comment on above: Take 1,080 mg by scott th. Semaglutide (7 sources) Start: 05-31-2024 End: 12-19-2024 Semaglutide (Ozempic) 1 mg/dose (4 mg/3 mL) pen injector Discontinued mg SC May 30, 2024 11:00pm December 19, 2024 12:31pm Start: 05-31-2024 End: 12-19-2024 Semaglutide (Ozempic) 1 mg/d ose (4 mg/3 mL) pen injector Discontinued mg [...] Mg (2 Mg/3 Ml) Subcutaneous Pen Injector] (8 sources) Start: 12-23-2023 End: 05-31-2024 Semaglutide [Semaglutide [...] 2023 12:00am SITagliptin 25 mg oral tablet (5 sources) Dipeptidyl Peptidase 4 Inhibitor Start: 12-19-2024 End: 12-19-2024 take 4 tablets by mouth once daily Sitagliptin Phosphate (Januvia) 25 mg tablet Discontinued 100 mg PO DAILY December 18, 2024 11:00pm December 19, 2024 1:10pm theophylline 400 mg extended release oral capsule (16 sources) Methylxanthine Start: 01-22-2017 End: 03-23-2019 take 1 capsule by mouth twice daily Theophylline 400 MG capsule,extended release 24hr Discontinued 400 mg PO TWICE A DAY January 21, 2017 11:00pm March 23, 2019 12:45pm Lungs Tirzepatide (1 source) Start: 12-19-2024 End: 02-06-2025 Tirzepatide (Mounjaro) 2.5 mg/0.5 mL pen injector Discontinued 2.5 mg SC EVERY WEEK 2 5 December 18, 2024 11:00pm February 06, 2025 12:26pm Type 2 diabetes mellitus Type 2 diabetes mellitus without complications Tirzepatide (Mounjaro) 2.5 mg/0.5 mL pen injector [...] 12:00am traMADol hydrochloride 50 mg oral tablet (12 sources) Opioid Agonist Start: 12-23-2023 End: 03-17-2024 take 1 tablet by mouth three times daily Tramadol 50 mg tablet Discontinued 50 mg PO THREE TIMES A DAY December 22, 2023 11:00pm March 17, 2024 7:08am Start: 10-05-2023 traMADol (ULTR AM) 50 mg [...] [facility]. Acute bronchitis (16 sources) Acute bronchitis with bronchospasm; Translations: [Acute bronchitis, unspecified] 10-01-2013 Episodic Asthma (20 sources) Exacerbation of asthma; Translations: [Unspecified asthma with (acute) exacerbation] Chronic Conditions associated with dizziness or vertigo (16 sources) Vertigo; Translations: [Dizziness and giddiness] 12-09-2018 Episodic Diabetes mellitus with complications (4 sources) Type 2 diabetes mellitus with hyperglycemia; Translations: [Hyperglycemia due to type 2 diabetes mellitus] Onset: 5 06-20-2025 Chronic Diabetes mellitus without complication (20 sources) Type 2 diabetes mellitus; Translations: [Type 2 diabetes mellitus without complications] Onset: 4 05-02-2022 Chronic Diseases of white blood cells (4 sources) Elevated white blood cell count, unspecified; Translations: [Leukocytosis] Onset: 5 06-20-2025 Chronic Disorders of lipid metabolism (10 sources) Hyperlipidemia; Translations: [Hyperlipidemia, unspecified] Onset: 5 12-19-2024 Chronic E Codes: Fall (20 sources) Fall on same level from slipping; Translations: [Fall on same level from slipping, tripping and stumbling without subsequent striking against object, initial encounter] 01-21-2023 Episodic Epilepsy; convulsions (2 sources) Epilepsy 01-15-2024 Chronic Epilepsy; convulsions (6 sources) Seizure related finding; Translations: [Unspecified convulsions] 11-27-2024 Episodic Esophageal disorders (16 sources) Gastroesophageal reflux disease; Translations: [Gastro-esophageal reflux disease without esophagitis] 10-27-2020 Chronic Essential hypertension (20 sources) Benign hypertension; Translations: [Essential (primary) hypertension] Onset: 5 12-09-2018 Chronic Fever of unknown origin (16 sources) Fever; Translations: [Fever, unspecified] 02-22-2022 Episodic Gastritis and duodenitis (16 sources) Acute gastritis; Translations: [Acute gastritis without bleeding] 07-30-2019 Episodic Gout and other crystal arthropathies (20 sources) Gout; Translations: [Gout, unspecified] 01-28-2020 Chronic Lymphadenitis (16 sources) Mesenteric lymphadenitis; Translations: [Nonspecific mesenteric lymphadenitis] 01-25-2017 Episodic Mycoses (1 source) Onychomycosis; Translations: [Tinea unguium] 10-06-2023 Episodic Nervous system congenital anomalies (7 sources) Congenital hydrocephalus; Translations: [Congenital hydrocephalus, unspecified] Onset: 4 10-06-2023 Chronic Nonspecific chest pain (16 sources) Chest pain; Translations: [Chest pain, unspecified] 04-14-2020 Episodic Osteoarthritis (20 sources) 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; Translations: [Unilateral osteoarthritis resulting from hip dysplasia, left hip] Onset: 5 08-31-2023 Chronic Other aftercare (2 sources) care home (current) use of insulin; 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] Onset: 5 Episodic Other congenital anomalies (13 sources) Other specified congenital deformities of hip; Translations: [Other congenital deformity of hip (joint)] Onset: 5 Chronic Other congenital anomalies (14 sources) Disorder of hip joint; Translations: [Other [...] toe(s)] 10-06-2023 Episodic Other connective tissue disease (7 sources) Swelling of right lower limb; Translations: [Other specified soft tissue disorders] 10-28-2024 Episodic Other connective tissue disease (6 sources) Pain in calf; Translations: [Pain in right lower leg] 10-28-2024 Episodic Other connective tissue disease (1 source) Pain of right calf; Translations: [Pain in right lower leg] 10-28-2024 Episodic Other connective tissue disease (1 source) Pain in right foot; Translations: [Pain in right foot] 04-14-2020 Episodic Other liver diseases (8 sources) Fatty (change of) liver, not elsewhere classified; Translations: [Nonalcoholic fatty liver disease] 12-19-2024 Chronic Other liver diseases (16 sources) Elevated liver enzymes level; Translations: [Abnormal levels of other serum enzymes] 01-25-2017 Episodic Other lower respiratory disease (16 sources) Dyspnea on exertion; Translations: [Dyspnea, unspecified] 03-23-2019 Episodic Other lower respiratory disease (16 sources) Cough; Translations: [Cough] 02-22-2022 Episodic Other lower respiratory disease (18 sources) Hypoxia; Translations: [Hypoxemia] 10-27-2020 Episodic Other lower respiratory disease (1 source) Hypoxemia; Translations: [Hypoxemia] Episodic Other nervous system disorders (14 sources) Ventriculoperitoneal shunt in situ; Translations: [Presence of cerebrospinal fluid drainage device] 04-13-2020 Chronic Comment on above: 2 WEEKS AFTER Other nervous system disorders (2 sources) Difficulty in walking, not elsewhere classified; Translations: [Difficulty in walking, not elsewhere classified] Onset: 5 Chronic Other nervous system disorders (2 sources) Unable to walk; Translations: [Difficulty in walking, not elsewhere classified] 06-20-2025 Chronic Other nervous system disorders (16 sources) H/O: brain disorder; Translations: [Personal history of other diseases of the nervous system and sense organs] 12-09-2018 Episodic Other nervous system disorders (3 sources) Personal history of other diseases of the nervous system and sense organs; Translations: [Personal history of other disorders of nervous system and sense organs] Episodic Other non-traumatic joint disorders (17 sources) Hip pain; Translations: [Pain in unspecified hip] 12-02-2021 Episodic Other non-traumatic joint disorders (5 sources) Pain in unspecified hip; Translations: [Pain in joint, pelvic region and thigh] 08-31-2023 Episodic Other non-traumatic joint disorders (3 sources) Pain in left hip; Translations: [Pain in left hip] Onset: 5 Episodic Other nutritional; endocrine; and metabolic disorders (20 sources) Morbid obesity; Translations: [Obesity, unspecified] Onset: 4 04-13-2020 Chronic Other nutritional; endocrine; and metabolic disorders (18 sources) Alveolar hypoventilation; Translations: [Morbid (severe) obesity with alveolar hypoventilation] 10-17-2021 Chronic Comment on above: BiPAP centimet ers of water Other nutritional; endocrine; and metabolic disorders (9 sources) Morbid (severe) obesity with alveolar hypoventilation; Translations: [Obesity hypoventilation syndrome] Chronic Other nutritional; endocrine; and metabolic disorders (8 sources) Obesity, unspecified; Translations: [Obesity, unspecified] Chronic Other nutritional; endocrine; and metabolic disorders (10 sources) Obesity; Translations: [Obesity, unspecified] 12-19-2024 Chronic Other nutritional; endocrine; and metabolic disorders (4 sources) Body mass index 40+ - severely obese; Translations: [Morbid (severe) obesity due to excess calories] 04-23-2025 Chronic Other nutritional; endocrine; and metabolic disorders (2 sources) Morbid (severe) obesity due to excess calories; Translations: [Morbid (severe) obesity due to excess calories] Onset: Chronic Other nutritional; endocrine; and metabolic disorders (2 sources) Body mass index (BMI) 60.0-69.9, adult; Translations: [Body mass index [BMI] 60.0-69.9, adult] Onset: Chronic Other skin disorders (1 source) Foot callus; Translations: [Corns and callosities] 10-06-2023 Episodic Paralysis (2 sources) Cerebral palsy, unspecified; Translations: [Infantile cerebral palsy, unspecified] 01-21-2023 Chronic Residual codes; unclassified (16 sources) Obstructive sleep apnea syndrome; Translations: [Obstructive sleep apnea (adult) (pediatric)] 12-09-2018 Chronic Residual codes; unclassified (5 sources) Pain; Translations: [Pain, unspecified] 10-06-2023 Episodic Residual codes; unclassified (3 sources) Pain, unspecified; Translations: [Pain] Onset: Episodic Residual codes; unclassified (6 sources) Edema of lower extremity; Translations: [Localized edema] 11-27-2024 Episodic Skin and subcutaneous tissue infections (15 sources) Cellulitis; Translations: [Cellulitis, unspecified] 2022 Episodic Spondylosis; intervertebral disc disorders; other back problems (20 sources) Backache; Translations: [Dorsalgia, unspecified] 12-05-2023 Episodic Sprains and strains (16 sources) Lower back injury; Translations: [Strain of muscle, fascia and tendon of lower back, initial encounter] 06-03-2019 Episodic Superficial injury; contusion (14 sources) Contusion of hip; Translations: [Contusion of left hip, initial encounter] 01-21-2023 Episodic Past or Other Problems Problem Classification Problem Date Documented Da te Episodic/Chronic Other connective tissue disease (1 source) Pain [...] Range Facility Absolute lymphocyte countOrd ered By: Flaco Sherwood on 06-16-2025 Lymphocytes Auto (Unsp spec) [#/Vol] 2.47 10*3/uL 0.83-4.51 [facility] Absolute neutrophil countOrd ered By: Flaco Sherwood on 06-16-2025 Neutrophils (Bld) [#/Vol] 7.3 10*3/uL 2.0-7.7 [facility] Anion gap in Serum or Plasma Ordered By: Flaco Sherwood on 06-16-2025 Anion gap [Moles/Vol] 11 mmol/L 5-15 [facility] Automated lymphocyte count a s percentage of total leukocytesOrdered By: Flaco Sherwood on 06-16-2025 Lymphocytes/100 WBC Auto (Unsp spec) 22.8 % 19-41 [facility] BUN/creatinine ratioOrdered By: Flaco Sherwood on 06-16-2025 Urea nitrogen/Creatinine [Mass ratio] 29.6 mg/mg High 10- [facility] Basophil percentageOrdered B y: Flaco Sherwood on 06-16-2025 Basophils/100 WBC (Bld) 0.6 % 0-1 [facility] Bedside Glucoseon 06-16-2025 FINGERSTICK GLU 166 mg/dL High 74-106 [facility] Comment on above: Result Comment: TIN BESS OF PATIENT CARE PER NURSING PROTOCOL Performed By: #### L 501.080 ####[facility] [address] [place], [address] FINGERSTICK GLU 234 mg/dL High 74-106 [facility] Comment on above: Result Comment: TIN BESS OF PATIENT CARE PER NURSING PROTOCOL Performed By: #### L 501.080 ####[facility] [address] [place], [address] Bilirubin, totalOrdered By: Flaco Sherwood on 06-16-2025 Bilirubin [Mass/Vol] 0.34 mg/dL 0.00-1.30 [facility] CBC W/Diff, Automatedon 05-25 Absolute Lymph 2.47 X10 3/uL Normal 0.83-4.51 [facility] Comment on above: Performed By: #### L 100.0100, L501.2300, L500.4050 ####[facility] [address] [place], [address] Absolute Neut 7.3 X10 3/uL Normal 2.0-7.7 [facility] Comment on above: Performed By: #### L 100.0100, L501.2300, [id number] ####[facility] [address] [place], [address] Basophils/100 WBC (Bld) 0.6 % Normal 0-1 [facility] Comment on above: Performed By: #### L 100.0100, L501.2300, [id number] ####[facility] [address] [place], [address] Eosinophils/100 WBC (Bld) 1.6 % Normal 0-5 [facility] Comment on above: Performed By: #### L 100.0100, L501.2300, [id number] ####[facility] [address] [place], [address] Erythrocyte distribution width (RBC) [Ratio] 15.7 % High 11.6-14.6 [facility] Comment on above: Performed By: #### L 100.0100, L501.2300, [id number] ####[facility] [address] [place], [address] Hematocrit (Bld) [Volume fraction] 44.0 % Normal 40-54 [facility] Comment on above: Performed By: #### L 100.0100, L501.2300, [id number] ####[facility] [address] [place], [address] Hemoglobin (Bld) [Mass/Vol] 14.2 g/dL Normal 13.0-16.5 [facility] Comment on above: Performed By: #### L 100.0100, L501.2300, [id number] ####[facility] [address] [place], [address] IG% 0.900 Normal 0.0-0.9 [facility] Comment on above: Result Comment: IG% - Immature Granulocytes (promyelocytes, myelocytes and metamyelocytes) > 1% indicates that a LEFT SHIFT is Present. Performed By: #### L 100.0100, L501.2300, [id number] ####[facility] [address] [place], [address] Lymphocytes/100 WBC (Bld) 22.8 % Normal 19-41 [facility] Comment on above: Performed By: #### L 100.0100, L501.2300, [id number] ####[facility] [address] [place], [address] MCH (RBC) [Entitic mass] 28.3 pg Normal 27.0-32.0 [facility] Comment on above: Performed By: #### L 100.0100, L501.2300, [id number] ####[facility] [address] [place], [address] MCHC (RBC) [Mass/Vol] 32.3 g/dL Normal 32-36 [facility] Comment on above: Performed By: #### L 100.0100, L501.2300, [id number] ####[facility] [address] [place], [address] MCV (RBC) [Entitic vol] 87.8 fL Normal 80-94 [facility] Comment on above: Performed By: #### L 100.0100, L501.2300, [id number] ####[facility] [address] [place], [address] Monocytes/100 WBC (Bld) 6.8 % Normal 0-10 [facility] Comment on above: Performed By: #### L 100.0100, L501.2300, [id number] ####[facility] [address] [place], [address] Neutrophils/100 WBC (Bld) 67.3 % Normal 47-70 [facility] Comment on above: Performed By: #### L 100.0100, L501.2300, [id number] ####[facility] [address] [place], [address] Nucleated RBC (Bld) [#/Vol] 0 10*3/uL Normal 0-5 [facility] Comment on above: Performed By: #### L 100.0100, L501.2300, [id number] ####[facility] [address] [place], [address] Platelet mean volume (Bld) [Entitic vol] 11.5 fL Normal 6.2-12.0 [facility] Comment on above: Performed By: #### L 100.0100, L501.2300, [id number] ####[facility] [address] [place], [address] Platelets (Bld) [#/Vol] 197 10*3/uL Normal 150-450 [facility] Comment on above: Performed By: #### L 100.0100, L501.2300, [id number] ####[facility] [address] [place], [address] RBC (Bld) [#/Vol] 5.01 10*6/uL Normal 4.6-6.2 [facility] Comment on above: Performed By: #### L 100.0100, L501.2300, [id number] ####[facility] [address] [place], [address] RDW SD 50.1 fl High 35.1-43.9 [facility] Comment on above: Performed By: #### L 100.0100, L501.2300, [id number] ####[facility] [address] [place], [address] WBC (Bld) [#/Vol] 10.8 10*3/uL Normal 4.4-11.0 [facility] Comment on above: Performed By: #### L 100.0100, L501.2300, [id number] ####[facility] [address] [place], [address] Carbon dioxide, total [Moles /volume] in Central venous bloodOrdered By: Flaco Sherwood on 06-16-2025 CO2 [Moles/Vol] 23.8 mmol/L 21.0-32.0 [facility] Chloride assayOrdered By: Eliel Sherwood on 06-16-2025 Chloride [Moles/Vol] 104 mmol/L 98-108 [facility] Comprehensive Metabolic Prof ilon 06-16-2025 Albumin [Mass/Vol] 3.7 g/dL Normal 3.5-5.0 [facility] Comment on above: Performed By: #### L 100.0100, L501.2300, [id number] ####[facility] [address] [place], [address] Albumin/Globulin [Mass ratio] 1.1 {ratio} Normal 0.9-2.4 [facility] Comment on above: Performed By: #### L 100.0100, L501.2300, [id number] ####[facility] [address] [place], [address] ALK PHOS 92 U/L Normal 40-129 [facility] Comment on above: Performed By: #### L 100.0100, L501.2300, [id number] ####[facility] [address] [place], [address] ALT [Catalytic activity/Vol] 19 U/L Normal <=46 [facility] Comment on above: Performed By: #### L 100.0100, L501.2300, [id number] ####[facility] [address] [place], [address] AST [Catalytic activity/Vol] 18 U/L Normal <=37 [facility] Comment on above: Performed By: #### L 100.0100, L501.2300, [id number] ####[facility] [address] [place], [address] Bilirubin [Mass/Vol] 0.34 mg/dL Normal 0.00-1.30 [facility] Comment on above: Performed By: #### L 100.0100, L501.2300, [id number] ####[facility] [address] [place], [address] BUN/CRE 29.6 RATIO High 10-20 [facility] Comment on above: Performed By: #### L 100.0100, L501.2300, [id number] ####[facility] [address] [place], [address] Calcium [Mass/Vol] 8.6 mg/dL Normal 7.6-11.0 [facility] Comment on above: Performed By: #### L 100.0100, L501.2300, [id number] ####[facility] [address] [place], [address] Chloride [Moles/Vol] 104 mmol/L Normal 98-108 [facility] Comment on above: Performed By: #### L 100.0100, L501.2300, [id number] ####[facility] [address] [place], [address] CO2 [Moles/Vol] 23.8 mmol/L Normal 21.0-32.0 [facility] Comment on above: Performed By: #### L 100.0100, L501.2300, [id number] ####[facility] [address] [place], [address] Creatinine [Mass/Vol] 0.62 mg/dL Low 0.70-1.20 [facility] Comment on above: Performed By: #### L 100.0100, L501.2300, [id number] ####[facility] [address] [place], [address] ECRCL 218.94 ml/min Normal 50-250 [facility] Comment on above: Performed By: #### L 100.0100, L501.2300, [id number] ####[facility] [address] [place], [address] GAP 11 Normal 5-15 [facility] Comment on above: Performed By: #### L 100.0100, L501.2300, [id number] ####[facility] [address] [place], [address] GFR/1.73 sq M.predicted among non-blacks MDRD (S/P/Bld) [Vol rate/Area] 123 mL/min/{1.73_m2} Normal >60 [facility] Comment on above: Result Comment: mL/m in/1.73m2 CKD-EPI Creatinine Equation (2020) Performed By: #### L 100.0100, L501.2300, [id number] ####[facility] [address] [place], [address] Globulin (S) [Mass/Vol] 3.4 g/dL Normal 2.2-4.2 [facility] Comment on above: Performed By: #### L 100.0100, L501.2300, [id number] ####[facility] [address] [place], [address] Glucose [Mass/Vol] 252 mg/dL High 70-99 [facility] Comment on above: Performed By: #### L 100.0100, L501.2300, L500.4050 ####[facility] [address] [place], [address] Potassium [Moles/Vol] 4.3 mmol/L Normal 3.3-5.1 [facility] Comment on above: Performed By: #### L 100.0100, L501.2300, L500.4050 ####[facility] [address] [place], [address] Sodium [Moles/Vol] 139 mmol/L Normal 133-145 [facility] Comment on above: Performed By: #### L 100.0100, L501.2300, L500.4050 ####[facility] [address] [place], [address] T PROT 7.1 g/dL Normal 5.9-8.4 [facility] Comment on above: Performed By: #### L 100.0100, L501.2300, L500.4050 ####[facility] [address] [place], [address] Urea nitrogen [Mass/Vol] 18 mg/dL Normal 4- [facility] Comment on above: Performed By: #### L 100.0100, L501.2300, L500.4050 ####[facility] [address] [place], [address] Discharge Instructionon 05-25 Discharge Instruction [facility] Medical Records Department [address] [place] [address] Instructions for Home/Discharge Instructions 06/16/25 1254 MR#: [id number] Acct: [id number] Name: DONNA RODRIGES Rep #: [id number] : 1985 40 From: Hector Harris DO PCP: Dr. Aliza Roman MD Status:ADM JESSICA Discharge Instructions DC O2, CPAP, BIPAP needs Home O2 Discharge instructions: No Dressing / Incision Discharge Activity: Return to Normal Activity Weight Bearing Status: Full weight bearing Follow Up Care Test Results: Test results from this visit will be discussed in further detail at your follow-up appointment, if applicable. Discharge Plan Admission Admit Date/Time: 06/15/25 21:54 Primary Reason for Your Visit: left hip osteoartritis Attending Provider: Hector Harris Primary Care Provider: Aliza Roman Consulting Providers: Flaco Hardin Discharge Orders/Prescriptions Prescriptions: New oxycodone 5 mg tablet 15 mg PO TID 7 Days Qty: 63 0RF Rx Instructions: two-three tid for pain Continued colchicine 0.6 mg tablet 0.6 mg PO [...] inh inhalation Q4H PRN PRN (Reason: Sob /Or Wheezing) Qty: 8.5 11RF Patient Comments: has not taken, on standby montelukast 10 mg tablet 10 mg PO DAILY Qty: 90 3RF (DME) spacer See Rx Instructions .ROUTE .MEDSUPPLY Qty: 1 0RF Rx Instructions: As directed potassium citrate 10 mEq (1,080 mg) tablet extended release 10 meq PO DAILY Patient Comments: TAKE 1 TABLET BY MOUTH EVERY DAY (DME) FreeStyle Nancy 3 Holly Misc See Rx Instructions .Route Qty: 1 0RF Rx Instructions: As directed rosuvastatin 5 mg tablet 5 mg PO QDAY Qty: 30 5RF budesonide-formoterol [Symbicort] 160-4.5 mcg/actuation HFA aerosol inhaler 2 inh inhalation BID Qty: 1 11RF Rx Instructions: administer with spacer, rinse mouth after each use (DME) FreeStyle Nancy 3 Plus Sensor Device See Rx Instructions .Route Qty: 2 5RF Rx Instructions: 1 sensor 15 q days allopurinol 300 mg tablet 300 mg PO BID Patient Comments: gout nebivolol 10 mg tablet 10 mg PO DAILY Patient Comments: blood pressure baclofen 20 MG tablet 20 mg PO Q12H pantoprazole 40 MG tablet 40 mg PO DAILY levetiracetam 500 mg tablet 500 mg PO BID Patient Comments: seizure furosemide 20 MG tablet 40 mg PO BID Patient Comments: Diuretic (water pill) Humulin R U-500 (Conc) Kwikpen 500 unit/mL (3 mL) insulin pen See Rx Instructions subcut TIDWMEAL Rx Instructions: SLIDING SCALE subcutaneously 3 times per day with meals; Mounjaro 5 mg/0.5 mL pen injector 5 mg subcut .tuesdays Changed celecoxib 200 mg capsule 200 mg PO BIDCM Qty: 1 0RF Rx Instructions: Increase your Celebrex to 1 twice a day No Action BIPAP -Bilevel Positive Airway Pressure ([facility] INFORMATIONAL USE ONLY) Patient Comments: DME: Sha Pt is unaware of settings however knows he has a 2L oxygen bleed in OXYGEN - Supplemental ([facility] INFORM[facility] USE ONLY) Patient Comments: DME: desiree Dalton CM not patient wear 2lpm at rest and with exertion as needed. Referrals / Follow Up: Aliza Roman MD [Primary Care Provider, Family Practice] Carlos Ibarra MD [Med Staff - Active Staff, Pain Management] - Within 2 Weeks Disposition Disposition (needs filled in before D/C Order can be placed): Home, Self Care 06/16/25 1321 Hector Harris DO CC: Dr. Flaco Hardin DO; Dr. Aliza Roman MD Signed Normal [facility] Eosinophil percentageOrdered By: Flaco Sherwood on 06-16-2025 Eosinophils/100 WBC (Bld) 1.6 % 0-5 [facility] Erythrocyte distribution wid th ratioOrdered By: Flaco Sherwood on 06-16-2025 Erythrocyte distribution width (RBC) [Ratio] 15.7 % High 11.6-14.6 [facility] Erythrocyte distribution wid th standard deviationOrdered By: Flaco Sherwood on 06-16-2025 Erythrocyte distribution width (RBC) [Ratio] 50.1 fl High 35.1-43.9 [facility] Glomerular filtration rate ( GFR) estimation/1.73 sq m using serum, plasma, or whole bOrdered By: Flaco Sherwood on 06-16-2025 GFR/1.73 sq M.predicted among non-blacks MDRD (S/P/Bld) [Vol rate/Area] 123 mL/min/{1.73_m2} >60 [facility] Comment on above: mL/min/1.73m2 CKD-EP I Creatinine Equation (2020) [facility]dered By: Hector Harris on 06-16-2025 Glucose [Mass/Vol] 166 mg/dL High 74-106 [facility] Comment on above: MANAGEMENT OF PATIEN T CARE PER NURSING PROTOCOL Hematocrit Auto (Bld) [Volum e fraction]Ordered By: Flaco Sherwood on 06-16-2025 Hematocrit (Bld) [Volume fraction] 44.0 % 40-54 [facility] Hemoglobin measurementOrdere d By: Flaco Sherwood on 06-16-2025 Hemoglobin (Bld) [Mass/Vol] 14.2 g/dL 13.0-16.5 [facility] Immature granulocytes/100 WB C Auto (Bld)Ordered By: Flaco Sherwood on 06-16-2025 Immature granulocytes/100 WBC (Bld) 0.900 % 0.0-0.9 [facility] Comment on above: IG% - Immature Granu locytes (promyelocytes, myelocytes and metamyelocytes) > 1% indicates that a LEFT SHIFT is Present. Laboratory - Chemistry and C hemistry - challengeOrdered By: Flaco Sherwood on 06-16-2025 AST [Catalytic activity/Vol] 18 U/L <38 [facility] MCV (mean corpuscular volume ) determinationOrdered By: Flaco Sherwood on 06-16-2025 MCV (RBC) [Entitic vol] 87.8 fL 80-94 [facility] Mean corpuscular hemoglobin (MCH) determinationOrdered By: Flaco Sherwood on 06-16-2025 MCH (RBC) [Entitic mass] 28.3 pg 27.0-32.0 [facility] Mean corpuscular hemoglobin concentration (MCHC) determinationOrdered By: Flaco Sherwood on 06-16-2025 MCHC (RBC) [Mass/Vol] 32.3 g/dL 32-36 [facility] Mean platelet volume determi nationOrdered By: Flaco Sherwood on 06-16-2025 Platelet mean volume (Bld) [Entitic vol] 11.5 fL 6.2-12.0 [facility] Monocyte percentageOrdered B y: Flaco Sherwood on 06-16-2025 Monocytes/100 WBC (Bld) 6.8 % 0-10 [facility] Neutrophil percentageOrdered By: Flaco Sherwood on 06-16-2025 Neutrophils/100 WBC (Bld) 67.3 % 47-70 [facility] Nucleated red blood cell per centageOrdered By: Flaco Sherwood on 06-16-2025 Nucleated RBC/100 WBC (Bld) [Ratio] 0 % 0-5 [facility] Phosphoruson 06-16-2025 Phosphate [Mass/Vol] 4.2 mg/dL Normal 2.7-4.5 [facility] Comment on above: Performed By: #### L 100.0100, L501.2300, L500.4050 ####[facility] [address] [place], [address] Platelet countOrdered By: Eliel Sherwood on 06-16-2025 Platelets (Bld) [#/Vol] 197 10*3/uL 150-450 [facility] Potassium measurement (mass/ volume)Ordered By: Flaco Sherwood on 06-16-2025 Potassium (Unsp spec) [Mass/Vol] 4.3 mmol/L 3.3-5.1 [facility] RBC Auto (Bld) [#/Vol]Ordere d By: Flaco Sherwood on 06-16-2025 RBC (Bld) [#/Vol] 5.01 10*6/uL 4.6-6.2 [facility] Serum creatinine measurement (mass/volume)Ordered By: Flaco Sherwood on 06-16-2025 Creatinine [Mass/Vol] 0.62 mg/dL Low 0.70-1.20 [facility] Serum globulin measurementOr dered By: Flaco Sherwood on 06-16-2025 Globulin (S) [Mass/Vol] 3.4 g/dL 2.2-4.2 [facility] Serum glucose measurement (m ass/volume)Ordered By: Flaco Sherwood on 06-16-2025 Glucose [Mass/Vol] 252 mg/dL High 70-99 [facility] Serum or plasma alanine elizondo otransferase (ALT) measurementOrdered By: Flaco Sherwood on 06-16-2025 ALT [Catalytic activity/Vol] 19 U/L <47 [facility] Serum or plasma albumin gloria urement (mass/volume)Ordered By: Flaco Sherwood on 06-16-2025 Albumin [Mass/Vol] 3.7 g/dL 3.5-5.0 [facility] Serum or plasma albumin/glob ulin mass ratioOrdered By: Flaco Sherwood on 06-16-2025 Albumin/Globulin [Mass ratio] 1.1 {ratio} 0.9-2.4 [facility] Serum or plasma alkaline ramesh sphatase measurementOrdered By: Flaco Sehrwood on 06-16-2025 ALP [Catalytic activity/Vol] 92 U/L 40-129 [facility] Serum or plasma calcium gloria urement (mass/volume)Ordered By: Flaco Sherwood on 06-16-2025 Calcium [Mass/Vol] 8.6 mg/dL 7.6-11.0 [facility] Serum or plasma urea nitroge n measurement (mass/volume)Ordered By: Flaco Sherwood on 06-16-2025 Urea nitrogen [Mass/Vol] 18 mg/dL 4-19 [facility] Sodium levelOrdered By: Kojo Sherwood on 06-16-2025 Sodium [Moles/Vol] 139 mmol/L 133-145 [facility] Total proteinOrdered By: Obdulio Sherwood on 06-16-2025 Protein [Mass/Vol] 7.1 g/dL 5.9-8.4 [facility] White blood cell (WBC) count Ordered By: Flaco Sherwood on 06-16-2025 WBC (Bld) [#/Vol] 10.8 10*3/uL 4.4-11.0 [facility] Bedside Glucoseon 06-15-2025 FINGERSTICK GLU 148 mg/dL High 74-106 [facility] Comment on above: Result Comment: TIN BESS OF PATIENT CARE PER NURSING PROTOCOL Performed By: #### L 501.9985, L501.5200, L501.9520 #### [facility] [address] [place], [address] CBC W/Diff, Automatedon 05-25 Absolute Lymph 2.58 X10 3/uL Normal 0.83-4.51 [facility] Comment on above: Performed By: #### L 100.0100, L500.4050 #### [facility] [address] [place], [address] Absolute Neut 9.0 X10 3/uL High 2.0-7.7 [facility] Comment on above: Performed By: #### L 100.0100, L500.4050 #### [facility] [address] [place], [address] Basophils/100 WBC (Bld) 0.8 % Normal 0-1 [facility] Comment on above: Performed By: #### L 100.0100, L500.4050 #### [facility] [address] [place], [address] Eosinophils/100 WBC (Bld) 1.0 % Normal 0-5 [facility] Comment on above: Performed By: #### L 100.0100, L500.4050 #### [facility] [address] [place], [address] Erythrocyte distribution width (RBC) [Ratio] 15.6 % High 11.6-14.6 [facility] Comment on above: Performed By: #### L 100.0100, L500.4050 #### [facility] [address] [place], [address] Hematocrit (Bld) [Volume fraction] 44.1 % Normal 40-54 [facility] Comment on above: Performed By: #### L 100.0100, L500.4050 #### [facility] [address] [place], [address] Hemoglobin (Bld) [Mass/Vol] 14.5 g/dL Normal 13.0-16.5 [facility] Comment on above: Performed By: #### L 100.0100, L500.4050 #### [facility] [address] [place], [address] IG% 1.000 High 0.0-0.9 [facility] Comment on above: Result Comment: IG% - Immature Granulocytes (promyelocytes, myelocytes and metamyelocytes) > 1% indicates that a LEFT SHIFT is Present. Performed By: #### L 100.0100, L500.4050 #### [facility] [address] [place], [address] Lymphocytes/100 WBC (Bld) 20.1 % Normal 19-41 [facility] Comment on above: Performed By: #### L 100.0100, L500.4050 #### [facility] [address] [place], [address] MCH (RBC) [Entitic mass] 28.3 pg Normal 27.0-32.0 [facility] Comment on above: Performed By: #### L 100.0100, L500.4050 #### [facility] [address] [place], [address] MCHC (RBC) [Mass/Vol] 32.9 g/dL Normal 32-36 [facility] Comment on above: Performed By: #### L 100.0100, L500.4050 #### [facility] [address] [place], [address] MCV (RBC) [Entitic vol] 86.0 fL Normal 80-94 [facility] Comment on above: Performed By: #### L 100.0100, L500.4050 #### [facility] [address] [place], [address] Monocytes/100 WBC (Bld) 7.1 % Normal 0-10 [facility] Comment on above: Performed By: #### L 100.0100, L500.4050 #### [facility] [address] [place], [address] Neutrophils/100 WBC (Bld) 70.0 % Normal 47-70 [facility] Comment on above: Performed By: #### L 100.0100, L500.4050 #### [facility] [address] [place], [address] Nucleated RBC (Bld) [#/Vol] 0 10*3/uL Normal 0-5 [facility] Comment on above: Performed By: #### L 100.0100, L500.4050 #### [facility] [address] [place], [address] Platelet mean volume (Bld) [Entitic vol] 10.8 fL Normal 6.2-12.0 [facility] Comment on above: Performed By: #### L 100.0100, L500.4050 #### [facility] [address] [place], [address] Platelets (Bld) [#/Vol] 201 10*3/uL Normal 150-450 [facility] Comment on above: Performed By: #### L 100.0100, L500.4050 #### [facility] [address] [place], [address] RBC (Bld) [#/Vol] 5.13 10*6/uL Normal 4.6-6.2 [facility] Comment on above: Performed By: #### L 100.0100, L500.4050 #### [facility] [address] [place], [address] RDW SD 48.4 fl High 35.1-43.9 [facility] Comment on above: Performed By: #### L 100.0100, L500.4050 #### [facility] [address] [place], [address] WBC (Bld) [#/Vol] 12.8 10*3/uL High 4.4-11.0 [facility] Comment on above: Performed By: #### L 100.0100, L500.4050 #### [facility] [address] [place], [address] Comprehensive Metabolic Prof ilon 06-15-2025 Albumin [Mass/Vol] 4.0 g/dL Normal 3.5-5.0 [facility] Comment on above: Performed By: #### L 100.0100, L500.4050 #### [facility] [address] [place], [address] Albumin/Globulin [Mass ratio] 1.1 {ratio} Normal 0.9-2.4 [facility] Comment on above: Performed By: #### L 100.0100, L500.4050 #### [facility] [address] [place], [address] ALK PHOS 98 U/L Normal 40-129 [facility] Comment on above: Performed By: #### L 100.0100, L500.4050 #### [facility] [address] [place], [address] ALT [Catalytic activity/Vol] 24 U/L Normal <=46 [facility] Comment on above: Performed By: #### L 100.0100, L500.4050 #### [facility] [address] [place], [address] AST [Catalytic activity/Vol] 18 U/L Normal <=37 [facility] Comment on above: Performed By: #### L 100.0100, L500.4050 #### [facility] [address] [place], [address] Bilirubin [Mass/Vol] 0.37 mg/dL Normal 0.00-1.30 [facility] Comment on above: Performed By: #### L 100.0100, L500.4050 #### [facility] [address] [place], [address] BUN/CRE 30.9 RATIO High 10-20 [facility] Comment on above: Performed By: #### L 100.0100, L500.4050 #### [facility] [address] [place], [address] Calcium [Mass/Vol] 8.9 mg/dL Normal 7.6-11.0 [facility] Comment on above: Performed By: #### L 100.0100, L500.4050 #### [facility] [address] [place], [address] Chloride [Moles/Vol] 105 mmol/L Normal 98-108 [facility] Comment on above: Performed By: #### L 100.0100, L500.4050 #### [facility] [address] [place], [address] CO2 [Moles/Vol] 25.6 mmol/L Normal 21.0-32.0 [facility] Comment on above: Performed By: #### L 100.0100, L500.4050 #### [facility] [address] [place], [address] Creatinine [Mass/Vol] 0.56 mg/dL Low 0.70-1.20 [facility] Comment on above: Performed By: #### L 100.0100, L500.4050 #### [facility] [address] [place], [address] ECRCL 247.60 ml/min Normal 50-250 [facility] Comment on above: Performed By: #### L 100.0100, L500.4050 #### [facility] [address] [place], [address] GAP 10 Normal 5-15 [facility] Comment on above: Performed By: #### L 100.0100, L500.4050 #### [facility] [address] [place], [address] GFR/1.73 sq M.predicted among non-blacks MDRD (S/P/Bld) [Vol rate/Area] 127 mL/min/{1.73_m2} Normal >60 [facility] Comment on above: Result Comment: mL/m in/1.73m2 CKD-EPI Creatinine Equation (2020) Performed By: #### L 100.0100, L500.4050 #### [facility] [address] [place], [address] Globulin (S) [Mass/Vol] 3.6 g/dL Normal 2.2-4.2 [facility] Comment on above: Performed By: #### L 100.0100, L500.4050 #### [facility] [address] [place], [address] Glucose [Mass/Vol] 173 mg/dL High 70-99 [facility] Comment on above: Performed By: #### L 100.0100, L500.4050 #### [facility] [address] [place], [address] Potassium [Moles/Vol] 4.5 mmol/L Normal 3.3-5.1 [facility] Comment on above: Performed By: #### L 100.0100, L500.4050 #### [facility] [address] [place], [address] Sodium [Moles/Vol] 141 mmol/L Normal 133-145 [facility] Comment on above: Performed By: #### L 100.0100, L500.4050 #### [facility] [address] [place], [address] T PROT 7.6 g/dL Normal 5.9-8.4 [facility] Comment on above: Performed By: #### L 100.0100, L500.4050 #### [facility] [address] [place], [address] Urea nitrogen [Mass/Vol] 17 mg/dL Normal 4-19 [facility] Comment on above: Performed By: #### L 100.0100, L500.4050 #### [facility] [address] [place], [address] Emergency Department Summary on 06-15-2025 Emergency Department Summary [facility] Medical Records Department [address] [place] [address] Emergency Department Summary 06/15/25 MR#: [id number] Acct: [id number] Name: DONNA RODRIGES Rep #: [id number] : 1985 40 From: Romulo Estrella MD PCP: Dr. Aliza Roman MD Status:REG ER Location: ED HPI History of Present Illness Chief Complaint: Lower Extremity Injury Narrative Narrative: 40-year-old male past medical history of obesity, chronic left hip pain secondary to hip dysplasia presents with increasing left hip pain. He relates history that he has been seen by his pain man agement physician, Dr. Alexis. Yesterday he had cortisone injections into his left hip. However, today he is experiencing increased pain with weightbearing. No fevers or chills, no nausea or vomiting. He called Dr. Alexis, and because of his increasing pain was prescribed hydrocodone but he has been unable to take it. He states that no orthopedic surgeon in the area will touch him and that he has been following up with Dr. Guadalupe in [facility]. He states that there is a piece of bone, that may be projecting into the tissue. He is concerned that this piece of bone may have shifted and is causing him more pain. Additionally, he denies any recent falls or trauma. 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 12/19/24 Unknown Rx (FreeStyle Nancy 3 Holly) celecoxib 200 mg capsule 200 mg PO [...] device) insulin regular hum U-500 conc 500 See Rx Instructions subcut TIDWM EAL 06/01/25 Unknown History unit/mL(3 mL) subcut pen (Humulin R U-500 (Conc) Insulin Kwikpen) tirzepatide 5 mg/0.5 mL 5 mg subcut .tuesdays06/15/25 Unk nown History subcutaneous pen injector (Mounjaro) Allergy/AdvReac Type Severity Reaction Status Date / Time duloxetine Allergy Severe Other Verified 06/15/25 14:52 animal dander Allergy Chest Verified 06/15/25 14:52 tightness grass pollen Allergy Other Verified 06/15/25 14:52 house dust Allergy Other Verified 06/15/25 14:52 pollen extracts Allergy Other Verified 06/15/25 14:52 Family History Father Chronic a-fib CVA (cerebral vascular accident) Mother ROBERT (obstructive sleep apnea) Breast cancer Grandfather Cancer bladder Other Diabetes Hypertension Thyroid disorder Surgical History History of surgery History of surgery H/O hernia repair H/O eye surgery 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 Normal [facility] Extremity Lower without Cont raon 06-15-2025 Extremity Lower without Contra [facility] Imaging Services [address] [place] [address] Extremity Lower without Contra MR#: [id number] Acct: [id number] Name: DONNA RODRIGES Rep #: [id number] : 1985 M 40 From: Leslie Nunes MD PCP: Dr. Aliza Roman MD Status: REG ER Study: Extremity Lower without Contra Date of Exam: 1 Exam# [id number] Ordering Dr: Romulo Estrella MD PROCEDURE: EXTREMITY LOWER WITHOUT CONTRA 06/15/2025 REASON FOR EXAM: Chronic left hip pain, worse today. TECHNIQUE: Procedure Code: CTELWO Modality: CT Procedure: EXTREMITY LOWER WITHOUT CONTRA Coronal and Sagittal reconstruction series were provided. One or more dose reduction techniques were used (e.g., Automated exposure control, adjustment of the mA and/or kV according to patient size, use of iterative reconstruction technique). RADIATION DOSE SUMMARY: CTDlvol: 62.15 mGy DLP: 2483.48 mGycm COMPARISON: XR LT HIP w/ Pelvis 2-3 Views, 04/23/2025 FINDINGS: BONES: No acute fracture or focal osseous lesion. JOINTS: No dislocation. Severe left hip joint space narrowing with subchondral sclerosis, cystic change and mild femoral head flattening. Small hip joint effusion. SOFT TISSUES: Linear calcifications in the left rectus femoris muscle near the myotendinous junction, likely related to prior injury. Bilateral ductus deferens calcification, can result from diabetes (most common), normal aging or chronic infection/inflammation. CT/Extremity Lower without Contra IMPRESSION: Severe left hip osteoarthrosis with small joint effusion. Reading Location: [facility] CC: Dr. Romulo Estrella MD; Dr. Aliza Roman MD Signals Intelligence Analyst: Signed Normal [facility] H AND P Exam - Hospitaliston 06-15-2025 H&P Exam - Hospitalist [facility] Medical Records Department [address] [place] [address] H P Exam - Hospitalist 06/15/252108 MR#: [id number] Acct: [id number] Name: DONNA RODRIGES Rep #: [id number] : 1985 40 From: Flaco Hardin DO PCP: Dr. Aliza Roman MD Status:ADM JESSICA [place] [facility] [place] HPI - General General Date of Admission: 06/15/25 Date of Service: 06/15/25 Chief Complaint: Uncontrolled Left Hip Pain with Inability to Ambulate. 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 Alexis of pain management yesterday, also on celecoxib plus prn hydrocodone who presents to [facility] ER complaining of uncontrolled Left hip pain with inability to ambulate. Mr. Rodriges reports his acute symptoms began shortly after his recent cortisol injection in the Left hip when today he noticed increased pain with weightbearing radiating in to his Left groin causing him to be unable to ambulate. He then contacted Dr. Alexis and was called in a prescription for hydrocodone but he states he was unable to take it so he decided to come in for further evaluation and treatment. He denies recent fall or injury. He informed the ER physician his orthopedic surgeon / Dr. Guadalupe in [place], [place] has been apparently been justifiably hesitant to proceed with surgery due to concerns surrounding his excess weight and multiple comorbidities. There was no report of fever, chills, runny nose, sore throat, ear pain, chest pain, palpitations, heart racing, LE edema, abdominal pain, nausea, vomiting, diarrhea, constipation, dysuria, hematuria, headache or rash. In the ER he underwent LLE CT that revealed severe Left hip osteoarthritis with small joint effusion with Leukocytosis of 12.8K thought to be due to recent steroid administration complicated by Intractable Left Hip Pain with Ambulatory Dysfunction and he was then admitted to the general medical floor under observation status for a stay that is expected to be less than 2 midnights. [facility] Medical History Wears glasses Alcohol use Arthritis Uses wheelchair High cholesterol Restless legs Seizures History of edema BiPAP (biphasic positive airway pressure) dependence On home oxygen therapy ROBERT treated with BiPAP Cerebral palsy Anxiety [...] tablet 20 mg PO Q12H muscle spasms 06/15/25 History pantoprazole 40 mg tablet,delayed 40 mg PO DAILY gi 06/25/18 History release furosemide 20 mg tablet 40 mg PO [...] mg PO DAILY allergies #90 tabs 01/05/23 06/15/25 Rx spacer #1 ea 01/05/23 Unknown Rx potassium citrate 10 mEq (1,080 10 meq PO DAILY 07/23/23 06/15/25 History mg) tablet,extended release allopurinol 300 mg tablet 300 mg PO BID gout 12/19/24 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 Normal [facility] Hemoglobin A1con 06-15-2025 HbA1c (Bld) [Mass fraction] 6.4 % High <=5.6 [facility] Comment on above: Result Comment: Norm al < 5.7 % Prediabetic 5.7 - 6.4 % Diabetic >or= 6.5 % Please note range changes. Performed By: #### L 501.9985, L501.5200, L501.9520 #### [facility] [address] [place], [place], [id number] Hemoglobin A1c percentageOrd ered By: Flaco Sherwood on 06-15-2025 HbA1c (Bld) [Mass fraction] 6.4 % High <5.7 [facility] Comment on above: Normal < 5.7 % Predi abetic 5.7 - 6.4 % Diabetic >or= 6.5 % Please note range changes. Magnesiumon 06-15-2025 Magnesium [Mass/Vol] 2.2 mg/dL Normal 1.5-2.2 [facility] Comment on above: Performed By: #### L 501.9985, L501.5200, L501.9520 #### [facility] [address] [place], [place], [id number] Magnesium measurement (mass/ volume)Ordered By: Flaco Sherwood on 06-15-2025 Magnesium (Unsp spec) [Mass/Vol] 2.2 mg/dL 1.5-2.2 [facility] TSH DL <= 0.005 mIU/L QnOrde red By: Flaco Sherwood on 06-15-2025 TSH Qn 4.280 uIU/mL High 0.300-4.200 [facility] Thyroid Stim Hormone (TSH)on 06-15-2025 TSH 4.280 uIU/mL High 0.300-4.200 [facility] Comment on above: Performed By: #### L 501.9985, L501.5200, L501.9520 #### [facility] [address] [place], [address] Bedside Glucoseon 06-12-2025 FINGERSTICK GLU 112 mg/dL High 74-106 [facility] Comment on above: Result Comment: TIN BESS OF PATIENT CARE PER NURSING PROTOCOL Performed By: #### L 501.080 #### [facility] [address] [place], [address] Fluoro Guided Needle Placeme nton 06-12-2025 Fluoro Guided Needle Placement [facility] Imaging Services [address] [place], [place] [address] Fluoro Guided Needle Placement MR#: [id number] Acct: [id number] Name: DONNA RODRIGES Rep #: [id number] : 1985 M 40 From: Donaldo powell MD PCP: Dr. Aliza Roman MD Status: [facility] Study: Fluoro Guided Needle Placement Date of Exam: Exam# [id number] Ordering Dr: Carlos Ibarra MD PROCEDURE: FLUORO [...] provided for left hip injection. Reading Location: [place] [address] CC: Dr. Aliza Roman MD; Dr. Carlos Ibarra MD Signals Intelligence Analyst: Signed [facility] Glucose measurement at [facility] deOrdered By: Carlos Ibarra on 06-12-2025 Glucose [Mass/Vol] 112 mg/dL High 74-106 [facility] Comment on above: MANAGEMENT OF PATIEN T CARE PER NURSING PROTOCOL MR/POSTOP.ANEon 06-12-2025 MR/POSTOP.[facility] Medical Records Department [address] [place] [address] Anesthesia Postop Eval I 06/12/25 0856 MR#: [id number] Acct: [id number] Name: DONNA RODRIGES Rep #: [id number] : 1985 40 From: Diane Lee MANAGER WILLOW PCP: Dr. Aliza Roman MD Status:REG SDC Y Race: C Location: [place] [address] Anesthesia: Postop Eval I Current Vital Signs Temperature: 98 F Pulse Rate: 98 Blood Pressure: 142/78 Respiratory Rate: 18 Pulse Ox: 99 Assessment Airway patent: Yes Spontaneous unlabored respirations: Yes nausea: No Vomiting: No Anesthesia Complication: No Fluid Hydration Crystalloid volume administer (ml): 100 Total IV fluid infused: 100 Progress Note Anesthesia document: Postop Eval 1 completed: Yes 06/12/25 0857 Date Diane Sirca MANAGER WILLOW Cosigner Signature: Date CC: Signed [facility] MR/[id number] 06-12-2025 MR/POSTOPAN2 [facility] Medical Records Department [address] [place] [address] Anesthesia Postop Eval II 06/12/25 120 MR#: [id number] Acct: [id number] Name: DONNA RODRIGES Rep #: [id number] : 1985 40 From: Sridhar Cardozo MD PCP: Dr. Aliza Roman MD Status:[facility] Y Race: C Location: [facility] Anesthesia Postop Eval I Sum Postop Eval Completion status Anesthesia document: Postop Eval 1 completed: Yes Anesthesia Postop Eval I Summary Anesthesia Postop Eval I Summary: Anesthesia Postop Eval I: Assessment Summary Airway patent Yes 06/12/25 08:56 MANAGER WILLOW.CSIR Spontaneous unlabored Yes 06/12/25 08:56 MANAGER WILLOW.CSIR respirations Mental status nausea No 06/12/25 08:56 MANAGER WILLOW.CSIR Vomiting No 06/12/25 08:56 MANAGER WILLOW.CSIR Anesthesia Postop Eval I: Fluid Summary Crystalloid volume administer 100 06/12/25 08:56 MANAGER WILLOW.CSIR (ml) Colloids volume administered ( ml) Blood Product volume administered (ml) Total IV fluid infused 100 06/12/25 08:56 MANAGER WILLOW.CSIR Anesthesia Postop Eval I: Summary Notes Anesthesia Complication No 06/12/25 08:56 MANAGER WILLOW.CSIR Anesthesia Complication Comment: Post-operative progress note Anesthesia: Postop Eval II Evaluation Mental status: Awake Pain Level: 2 nausea: No Vomiting: No 06/12/251204 Date Sridhar Cardozo MD Cosigner Signature: Date CC: Signed [facility] Operative Reporton Operative Report [facility] Medical Records Department [address] [place] [address] Operative Report 06/12/25 0857 MR#: [id number] Acct: [id number] Name: DONNA RODRIGES Rep #: [id number] : 1985 40 From: Carlos Ibarra MD PCP: Dr. Aliza Roman MD Status:REG [facility] Location: [address] Operative Report (Standard) Operative Information Date of Procedure: 06/12/25 Pre-Operative Diagnosis: Osteoarthritis of the left hip Post-Operative Diagnosis: Osteoarthritis of the left hip Surgery/Procedure Performed: Left hip intraarticular steroid injection under fluoroscopy guidance. pantograph transferrer: No Type of Anesthesia: Local MAC RN [...] MD; Dr. Carlos Ibarra MD Signed Normal [facility] Absolute lymphocyte countOrd ered By: [facility] on 04-23-2025 Lymphocytes Auto (Unsp spec) [#/Vol] 2.44 10*3/uL 0.83-4.51 [facility] Absolute neutrophil countOrd ered By: [facility] on 04-23-2025 Neutrophils (Bld) [#/Vol] 6.3 10*3/uL 2.0-7.7 [facility] Anion gap in Serum or Plasma Ordered By: [facility] on 04-23-2025 Anion gap [Moles/Vol] 13 mmol/L 5- [facility] Automated lymphocyte count a s percentage of total leukocytesOrdered By: [facility] on 04-23-2025 Lymphocytes/100 WBC Auto (Unsp spec) 24.9 % [facility] BUN/creatinine ratioOrdered By: Dre Johnson on 04-23-2025 Urea nitrogen/Creatinine [Mass ratio] 20.1 mg/mg High 06-12 [facility] Basic Metabolic Profile (BMP )on 04-23-2025 BUN/CRE 20.1 RATIO High 06-12 [facility] Comment on above: Performed By: #### L 500.2500, L100.0100, L101.9900 ####[facility] [address] [place], [address] Calcium [Mass/Vol] 8.9 mg/dL Normal 7.6-11.0 [facility] Comment on above: Performed By: #### L 500.2500, L100.0100, L101.9900 ####[facility] [address] [place], [address] Chloride [Moles/Vol] 105 mmol/L Normal 98-108 [facility] Comment on above: Performed By: #### L 500.2500, L100.0100, L101.9900 ####[facility] [address] [place], [address] CO2 [Moles/Vol] 25.1 mmol/L Normal 21.0-32.0 [facility] Comment on above: Performed By: #### L 500.2500, L100.0100, L101.9900 ####[facility] [address] [place], [address] Creatinine [Mass/Vol] 0.60 mg/dL Low 0.70-1.20 [facility] Comment on above: Performed By: #### L 500.2500, L100.0100, L101.9900 ####[facility] [address] [place], [address] ECRCL 227.69 ml/min Normal 50-250 [facility] Comment on above: Performed By: #### L 500.2500, L100.0100, L101.9900 ####[facility] [address] [place], [address] GAP 13 Normal 5-15 [facility] Comment on above: Performed By: #### L 500.2500, L100.0100, L101.9900 ####[facility] [address] [place], [address] GFR/1.73 sq M.predicted among non-blacks MDRD (S/P/Bld) [Vol rate/Area] 125 mL/min/{1.73_m2} Normal >60 [facility] Comment on above: Result Comment: mL/m in/1.73m2 CKD-EPI Creatinine Equation (2020) Performed By: #### L 500.2500, L100.0100, L101.9900 ####[facility] [address] [place], [address] Glucose [Mass/Vol] 195 mg/dL High 70-99 [facility] Comment on above: Performed By: #### L 500.2500, L100.0100, L101.9900 ####[facility] [address] [place], [address] Potassium [Moles/Vol] 4.0 mmol/L Normal 3.3-5.1 [facility] Comment on above: Performed By: #### L 500.2500, L100.0100, L101.9900 ####[facility] [address] [place], [address] Sodium [Moles/Vol] 143 mmol/L Normal 133-145 [facility] Comment on above: Performed By: #### L 500.2500, L100.0100, L101.9900 ####[facility] [address] [place], [address] Urea nitrogen [Mass/Vol] 12 mg/dL Normal 4-19 [facility] Comment on above: Performed By: #### L 500.2500, L100.0100, L101.9900 ####[facility] [address] [place], [address] Basophil percentageOrdered B y: Dre Johnson on 04-23-2025 Basophils/100 WBC (Bld) 0.5 % 0-1 [facility] CBC W/Diff, Automatedon 03-26 Absolute Lymph 2.44 X10 3/uL Normal 0.83-4.51 [facility] Comment on above: Performed By: #### L 500.2500, L100.0100, L101.9900 ####[facility] [address] [place], [address] Absolute Neut 6.3 X10 3/uL Normal 2.0-7.7 [facility] Comment on above: Performed By: #### L 500.2500, L100.0100, L101.9900 ####[facility] [address] [place], [address] Basophils/100 WBC (Bld) 0.5 % Normal 0-1 [facility] Comment on above: Performed By: #### L 500.2500, L100.0100, L101.9900 ####[facility] [address] [place], [address] Eosinophils/100 WBC (Bld) 3.1 % Normal 0-5 [facility] Comment on above: Performed By: #### L 500.2500, L100.0100, L101.9900 ####[facility] [address] [place], [address] Erythrocyte distribution width (RBC) [Ratio] 14.9 % High 11.6-14.6 [facility] Comment on above: Performed By: #### L 500.2500, L100.0100, L101.9900 ####[facility] [address] [place], [address] Hematocrit (Bld) [Volume fraction] 43.6 % Normal 40-54 [facility] Comment on above: Performed By: #### L 500.2500, L100.0100, L101.9900 ####[facility] [address] [place], [address] Hemoglobin (Bld) [Mass/Vol] 14.5 g/dL Normal 13.0-16.5 [facility] Comment on above: Performed By: #### L 500.2500, L100.0100, L101.9900 ####[facility] [address] [place], [address] IG% 0.900 Normal 0.0-0.9 [facility] Comment on above: Result Comment: IG% - Immature Granulocytes (promyelocytes, myelocytes and metamyelocytes) > 1% indicates that a LEFT SHIFT is Present. Performed By: #### L 500.2500, L100.0100, L101.9900 ####[facility] [address] [place], [address] Lymphocytes/100 WBC (Bld) 24.9 % Normal 19-41 [facility] Comment on above: Performed By: #### L 500.2500, L100.0100, L101.9900 ####[facility] [address] [place], [address] MCH (RBC) [Entitic mass] 28.8 pg Normal 27.0-32.0 [facility] Comment on above: Performed By: #### L 500.2500, L100.0100, L101.9900 ####[facility] [address] [place], [address] MCHC (RBC) [Mass/Vol] 33.3 g/dL Normal 32-36 [facility] Comment on above: Performed By: #### L 500.2500, L100.0100, L101.9900 ####[facility] [address] [place], [address] MCV (RBC) [Entitic vol] 86.7 fL Normal 80-94 [facility] Comment on above: Performed By: #### L 500.2500, L100.0100, L101.9900 ####[facility] [address] [place], [address] Monocytes/100 WBC (Bld) 6.6 % Normal 0-10 [facility] Comment on above: Performed By: #### L 500.2500, L100.0100, L101.9900 ####[facility] [address] [place], [address] Neutrophils/100 WBC (Bld) 64.0 % Normal 47-70 [facility] Comment on above: Performed By: #### L 500.2500, L100.0100, L101.9900 ####[facility] [address] [place], [address] Nucleated RBC (Bld) [#/Vol] 0 10*3/uL Normal 0-5 [facility] Comment on above: Performed By: #### L 500.2500, L100.0100, L101.9900 ####[facility] [address] [place], [address] Platelet mean volume (Bld) [Entitic vol] 10.7 fL Normal 6.2-12.0 [facility] Comment on above: Performed By: #### L 500.2500, L100.0100, L101.9900 ####[facility] [address] [place], [address] Platelets (Bld) [#/Vol] 206 10*3/uL Normal 150-450 [facility] Comment on above: Performed By: #### L 500.2500, L100.0100, L101.9900 ####[facility] [address] [place], [address] RBC (Bld) [#/Vol] 5.03 10*6/uL Normal 4.6-6.2 [facility] Comment on above: Performed By: #### L 500.2500, L100.0100, L101.9900 ####[facility] [address] [place], [address] RDW SD 46.8 fl High 35.1-43.9 [facility] Comment on above: Performed By: #### L 500.2500, L100.0100, L101.9900 ####[facility] [address] [place], [address] WBC (Bld) [#/Vol] 9.8 10*3/uL Normal 4.4-11.0 [facility] Comment on above: Performed By: #### L 500.2500, L100.0100, L101.9900 ####[facility] [address] [place], [address] Carbon dioxide, total [Moles /volume] in Central venous bloodOrdered By: Dre Johnson on 04-23-2025 CO2 [Moles/Vol] 25.1 mmol/L 21.0-32.0 [facility] Chloride assayOrdered By: Molina Johnson on 04-23-2025 Chloride [Moles/Vol] 105 mmol/L 98-108 [facility] Emergency Department Summary on 04-23-2025 Emergency Department Summary [facility] Medical Records Department [address] [place] [address] Emergency Department Summary 04/23/25 MR#: [id number] Acct: [id number] Name: DONNA RODRIGES Rep #: [id number] : 1985 39 From: Dre Johnson MD [...] joint. He was asked if he has lavu-ng-exoa. He responded yes. 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 Normal [place] [facility] Eosinophil percentageOrdered By: [facility] on 04-23-2025 Eosinophils/100 WBC (Bld) 3.1 % 0-5 [facility] Erythrocyte Sed Rateon 04-23 SED RATE 37 mm/hr High 0-20 [facility] Comment on above: Performed By: #### L 500.2500, L100.0100, L101.9900 ####[facility] [address] [place], [place], [address] Erythrocyte distribution wid th ratioOrdered By: [facility] on 04-23-2025 Erythrocyte distribution width (RBC) [Ratio] 14.9 % High 11.6-14.6 [facility] Erythrocyte distribution wid th standard deviationOrdered By: [facility] on 04-23-2025 Erythrocyte distribution width (RBC) [Ratio] 46.8 fl High 35.1-43.9 [facility] Erythrocyte sedimentation ra teOrdered By: [facility] on 04-23-2025 ESR (Bld) [Velocity] 37 mm/h High 0-20 [facility] Glomerular filtration rate ( GFR) estimation/1.73 sq m using serum, plasma, or whole bOrdered By: [facility] on 04-23-2025 GFR/1.73 sq M.predicted among non-blacks MDRD (S/P/Bld) [Vol rate/Area] 125 mL/min/{1.73_m2} >60 [facility] Comment on above: mL/min/1.73m2 CKD-EP I Creatinine Equation (2020) HIP, UNI W/ Pelvis 2-3 Views on 04-23-2025 HIP, UNI W/ Pelvis 2-3 Views [facility] Imaging Services [address] [place], [place] [address] HIP, UNI W/ Pelvis 2-3 Views MR#: [id number] Acct: [id number] Name: DONNA RODRIGES Rep #: [id number] : 1985 M 39 From: Rylan Meyer MD PCP: Dr. Alzia Roman MD Status: REG ER Study: HIP, UNI W/ Pelvis 2-3 Views Date of Exam: Exam# [id number] Ordering Dr: Dre Johnson MD PROCEDURE: HIP, [...] acetabulum in this young patient. Reading Location: [id number] CC: Dr. Aliza Roman MD; Dr. Dre Johnson MD Signals Intelligence Analyst: Signed [facility] Hematocrit Auto (Bld) [Volum e fraction]Ordered By: Dre Johnson on 04-23-2025 Hematocrit (Bld) [Volume fraction] 43.6 % 40-54 [facility] Hemoglobin measurementOrdere d By: Dre Johnson on 04-23-2025 Hemoglobin (Bld) [Mass/Vol] 14.5 g/dL 13.0-16.5 [facility] Immature granulocytes/100 WB C Auto (Bld)Ordered By: Dre Johnson on 04-23-2025 Immature granulocytes/100 WBC (Bld) 0.900 % 0.0-0.9 [facility] Comment on above: IG% - Immature Granu locytes (promyelocytes, myelocytes and metamyelocytes) > 1% indicates that a LEFT SHIFT is Present. MCV (mean corpuscular volume ) determinationOrdered By: Dre Johnson on 04-23-2025 MCV (RBC) [Entitic vol] 86.7 fL 80-94 [facility] Mean corpuscular hemoglobin (MCH) determinationOrdered By: Dre Johnson on 04-23-2025 MCH (RBC) [Entitic mass] 28.8 pg 27.0-32.0 [facility] Mean corpuscular hemoglobin concentration (MCHC) determinationOrdered By: Dre Johnson on 04-23-2025 MCHC (RBC) [Mass/Vol] 33.3 g/dL 32-36 [facility] Mean platelet volume determi nationOrdered By: Dre Johnson on 04-23-2025 Platelet mean volume (Bld) [Entitic vol] 10.7 fL 6.2-12.0 [facility] Monocyte percentageOrdered B y: Dre Johnson on 04-23-2025 Monocytes/100 WBC (Bld) 6.6 % 0-10 [facility] Neutrophil percentageOrdered By: Dre Johnson on 04-23-2025 Neutrophils/100 WBC (Bld) 64.0 % 47-70 [facility] Nucleated red blood cell per centageOrdered By: Dre Johnson on 04-23-2025 Nucleated RBC/100 WBC (Bld) [Ratio] 0 % 0-5 [facility] Platelet countOrdered By: Molina Johnson on 04-23-2025 Platelets (Bld) [#/Vol] 206 10*3/uL 150-450 [facility] Potassium measurement (mass/ volume)Ordered By: Dre Johnson on 04-23-2025 Potassium (Unsp spec) [Mass/Vol] 4.0 mmol/L 3.3-5.1 [facility] RBC Auto (Bld) [#/Vol]Ordere d By: Dre Johnson on 04-23-2025 RBC (Bld) [#/Vol] 5.03 10*6/uL 4.6-6.2 [facility] Serum creatinine measurement (mass/volume)Ordered By: Dre Johnson on 04-23-2025 Creatinine [Mass/Vol] 0.60 mg/dL Low 0.70-1.20 [facility] Serum glucose measurement (m ass/volume)Ordered By: Dre Johnson on 04-23-2025 Glucose [Mass/Vol] 195 mg/dL High 70-99 [facility] Serum or plasma calcium gloria urement (mass/volume)Ordered By: [facility] on 04-23-2025 Calcium [Mass/Vol] 8.9 mg/dL 7.6-11.0 [facility] Serum or plasma urea nitroge n measurement (mass/volume)Ordered By: [facility] on 04-23-2025 Urea nitrogen [Mass/Vol] 12 mg/dL 4-19 [facility] Sodium levelOrdered By: [facility] on 04-23-2025 Sodium [Moles/Vol] 143 mmol/L 133-145 [facility] White blood cell (WBC) count Ordered By: [facility] on 04-23-2025 WBC (Bld) [#/Vol] 9.8 10*3/uL 4.4-11.0 [facility] Endocrinology Visit Reporton 02-06-2025 Endocrinology Visit Report [facility] 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 02/06/25 Rx (FreeStyle Nancy 3 Holly) celecoxib 200 mg capsule 200 mg PO DAILY 12/19/24 02/06/25 History rosuvastatin 5 mg tablet 5 mg PO QDAY #30 tabs 12/19/24 Rx budesonide-formoterol HFA 160 2 inh inhalation BID #1 ea 01/23/2 5 02/06/25 Rx mcg-4.5 mcg/actuation aerosol inhaler [...] 02/06/25 02/06/25 Rx subcutaneous pen injector (Mounjaro) [facility] Medical History ROBERT treated with BiPAP Cerebral [...] H/O hernia repair H/O eye surgery S/P FISH CLEANER MACHINE TENDER shunt Family History Father Chronic a-fib CVA [...] any significan (more content not included)... Normal [facility] Pulmonary Visit Reporton Pulmonary Visit Report [facility] [place] [address] [place] [address] OFFICE VISIT Date of Service: 01/23/25 MR#: [id number] Acct: [id number] Name: DONNA RODRIGES Rep #: [id number] : 1985 Provider: ROBERT Norris Age/Sex: 39/M Location[facility] Status: Signed Assessment and Plan [...] Additional Comments: This note was generated with [employer] software. It may contain incorrect words, spelling, [...] exertion. 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 Recently started Mounjaro. He [...] Allergy (Verif (more content not included)... Normal [facility] Fluoro Guided Needle Placeme nton 01-09-2025 Fluoro Guided Needle Placement [facility] Imaging Services [address] [place] [address] Fluoro Guided Needle Placement MR#: [id number] Acct: [id number] Name: DONNA RODRIGES Rep #: [id number] : 1985 M 39 From: Donaldo powell MD PCP: Dr. Aliza Roman MD Status: [facility] Study: Fluoro Guided Needle Placement Date of Exam: 0 01/09/25 Exam# [id number] Ordering Dr: Carlos Ibarra MD PROCEDURE: FLUORO GUIDED NEEDLE PLACEMENT 01/09/2025 REASON FOR EXAM: INJECTION LT HIP TECHNIQUE: Intraoperative fluoroscopic services provided for left hip injection. 8.4 seconds of fluoroscopy. 2.99 mGy. 3 images were obtained. COMPARISON: None FINDINGS: Intraoperative fluoroscopic services provided for left hip injection. RAD/Fluoro Guided Needle Placement IMPRESSION: Intraoperative fluoroscopic services provided for left hip injection. [facility] CC: Dr. Aliza Roman MD; Dr. Carlos Ibarra MD Signals Intelligence Analyst: Signed [facility] MR/POSTOP.ANEon 01-09-2025 MR/POSTOP.[facility] Medical Records Department [address] [place] [address] Anesthesia Postop Eval I 01/09/25 0859 MR#: [id number] Acct: [id number] Name: DONNA RODRIGES Rep #: [id number] : 1985 39 From: Ike Sanchez CRNA PCP: Dr. Aliza Roman MD Status:[facility] Y Race: C Location: [facility] Anesthesia: Postop Eval I Current Vital Signs [...] Eval 1 completed: Yes 01/09/25899 Date Ike Sanchez MANAGER WILLOW Cosigner Signature: Date CC: Signed [facility] MR/[id number] 01-09-2025 [facility] Medical Records Department [address] [place] [address] Anesthesia Postop Eval II 01/09/25908 MR#: [id number] Acct: [id number] Name: DONNA RODRIGES Rep #: [id number] : 1985 39 From: Sridhar Cardozo MD PCP: Dr. Aliza Roman MD Status:[facility] Y Race: C Location: [facility] Anesthesia Postop Eval I Sum Postop Eval Completion status Anesthesia document: Postop Eval 1 completed: Yes Anesthesia Postop Eval I Summary Anesthesia Postop Eval I Summary: Anesthesia Postop Eval I: Assessment Summary Airway patent Yes 01/09/25 09:00 MANAGER [email or web address] Spontaneous unlabored Yes 01/09/25 09:00 MANAGER [email or web address] respirations Mental status Awake,Calm 01/09/25 09:00 MANAGER [email or web address] nausea No 01/09/25 09:00 MANAGER [email or web address] Vomiting No 01/09/25 09:00 MANAGER [email or web address].[email or web address] Anesthesia Postop Eval I: Fluid Summary Crystalloid volume administer 200 01/09/25 09:00 MANAGER [email or web address].[email or web address] (ml) Colloids volume administered ( ml) Blood Product volume administered (ml) Total IV fluid infused 200 01/09/25 09:00 MANAGER [email or web address] Anesthesia Postop Eval I: Summary Notes Anesthesia Complication No 01/09/25 09:00 MANAGER [email or web address].[email or web address] Anesthesia Complication Comment: Post-operative progress note Anesthesia: Postop Eval II Evaluation Mental status: Awake Pain Level: 2 nausea: No Vomiting: No 01/09/25908 Date Sridhar Puentes Signature: Date CC: Signed [facility] Operative Reporton 5 Operative Report [facility] Medical Records Department [address] [place] [address] Operative Report 01/09/25823 MR#: [id number] Acct: [id number] Name: DONNA RODRIGES Mariana Rep #: [id number] : 1985 39 From: Carlos Ibarra MD PCP: Dr. Aliza Roman MD Status:[facility] Location: [place] [address] Operative Report (Standard) Operative Information Date of Procedure: 01/09/25 Pre-Operative Diagnosis: 1 Post-Operative Diagnosis: 1 Surgery/Procedure Performed: 1 pantograph transferrer: No Type of Anesthesia: Local MAC RN [...] MD; Dr. Carlos Ibarra MD Signed [facility] Endocrinology Visit Reporton 12-19-2024 Endocrinology Visit Report [facility] [address] [place] [address] OFFICE VISIT Date of Service: 12/19/24 MR#: [id number] Acct: [id number] Name: DONNA RODRIGES Rep #: [id number] : 1985 Provider: ROBERT munoz Age/Sex: 39/M [place] [facility] Status: Signed Intake Vital Signs 11/27/24 11:01 [...] ea 12/19/24 12/19/24 Rx (FreeStyle Nancy 3 Holly) 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 sensor (FreeStyle #2 ea 12/19/24 12/19/24 [...] 12/19/24 12/19/24 Rx subcutaneous pen injector (Ean) [facility] Medical History ROBERT treated with BiPAP Cerebral [...] H/O hernia repair H/O eye surgery S/P FISH CLEANER MACHINE TENDER shunt Family History (Updated 12/19/24 @ 13:25 [...] income an (more content not included)... [facility] Laboratory - Hematology and Cell countsOrdered By: Lesvia Russo on 12-19-2024 HbA1c (Bld) [Mass fraction] 9.6 % High 4.2-6.3 [facility] 12 Lead EKGon 11-27-2024 12 Lead EKG [facility] Cardiovascular Services [address] [place] [address] 12 Lead EKG 11/27/24 1148 MR#: [id number] Acct: [id number] Name: DONNA RODRIGES Rep #: [id number] : 1985 39 From: Bruce Victor MD [...] ECG Confirmed by BRUCE VICTOR MD ([id number]), supervising editor news reel CATHERINE PATTERSON ([id number]) on 11/28/2024 9:15:43 AM Referred By: Confirmed By: BRUCE VICTOR MD 11/28/24914 Date Bruce Victor MD CC: Dr. Aliza Roman MD; Dr. Davonte Mendez DO; GUICHO Jarrell Signed [facility] Absolute lymphocyte countOrd ered By: Krystina Hernández on 11-27-2024 Lymphocytes Auto (Unsp spec) [#/Vol] 1.95 10*3/uL 0.83-4.51 [facility] Absolute neutrophil countOrd ered By: Krystina Hernández on 11-27-2024 Neutrophils (Bld) [#/Vol] 4.9 10*3/uL 2.0-7.7 [facility] Anion gap in Serum or Plasma Ordered By: Krystina Hernández on 11-27-2024 Anion gap [Moles/Vol] 14 mmol/L 5-15 [facility] Automated lymphocyte count a s percentage of total leukocytesOrdered By: Krystina Hernández on 11-27-2024 Lymphocytes/100 WBC Auto (Unsp spec) 25.6 % - [facility] BUN/creatinine ratioOrdered By: Krystina Hernández on 11-27-2024 Urea nitrogen/Creatinine [Mass ratio] 26.2 mg/mg High 10- [facility] Basic Metabolic Profile (BMP )on 11-27-2024 BUN/CRE 26.2 RATIO High 10-20 [facility] Comment on above: Performed By: #### L 501.9985, L501.5200, L501.9520 #### [facility] [address] [place], [address] Calcium [Mass/Vol] 9.2 mg/dL Normal 7.6-11.0 [facility] Comment on above: Performed By: #### L 501.9985, L501.5200, L501.9520 #### [facility] [address] [place], [address] Chloride [Moles/Vol] 100 mmol/L Normal 98-108 [facility] Comment on above: Performed By: #### L 501.9985, L501.5200, L501.9520 #### [facility] [address] [place], [address] CO2 [Moles/Vol] 24.1 mmol/L Normal 21.0-32.0 [facility] Comment on above: Performed By: #### L 501.9985, L501.5200, L501.9520 #### [facility] [address] [place], [address] Creatinine [Mass/Vol] 0.61 mg/dL Low 0.70-1.20 [facility] Comment on above: Performed By: #### L 501.9985, L501.5200, L501.9520 #### [facility] [address] [place], [address] ECRCL 227.50 ml/min Normal 50-250 [facility] Comment on above: Performed By: #### L 501.9985, L501.5200, L501.9520 #### [facility] [address] [place], [address] GAP 14 Normal 5-15 [facility] Comment on above: Performed By: #### L 501.9985, L501.5200, L501.9520 #### [facility] [address] [place], [address] GFR/1.73 sq M.predicted among non-blacks MDRD (S/P/Bld) [Vol rate/Area] 125 mL/min/{1.73_m2} Normal >60 [facility] Comment on above: Result Comment: mL/m in/1.73m2 CKD-EPI Creatinine Equation (2020) Performed By: #### L 501.9985, L501.5200, L501.9520 #### [facility] [address] [place], [address] Glucose [Mass/Vol] 303 mg/dL High 70-99 [facility] Comment on above: Performed By: #### L 501.9985, L501.5200, L501.9520 #### [facility] [address] [place], [address] Potassium [Moles/Vol] 3.9 mmol/L Normal 3.3-5.1 [facility] Comment on above: Performed By: #### L 501.9985, L501.5200, L501.9520 #### [facility] [address] [place], [address] Sodium [Moles/Vol] 138 mmol/L Normal 133-145 [facility] Comment on above: Performed By: #### L 501.9985, L501.5200, L501.9520 #### [facility] [address] [place], [address] Urea nitrogen [Mass/Vol] 16 mg/dL Normal 4-19 [facility] Comment on above: Performed By: #### L 501.9985, L501.5200, L501.9520 #### [facility] [address] [place], [address] Basophil percentageOrdered B y: Krystina Hernández on 11-27-2024 Basophils/100 WBC (Bld) 0.7 % 0-1 [facility] Brain/Head without Contrasto n 11-27-2024 Brain/Head without Contrast [facility] Imaging Services [address] [place] [address] Brain/Head without Contrast MR#: [id number] Acct: [id number] Name: DONNA RODRIGES Rep #: [id number] : 1985 M 39 From: Asif Toledo DO PCP: Dr. Aliza Roman MD Status: REG ER Study: Brain/Head without Contrast Date of Exam: 02/15 Exam# [id number] Ordering Dr: Krystina Hernández PROCEDURE: BRAIN/HEAD WITHOUT CONTRAST 11/27/2024 REASON FOR EXAM: HEAD INJURY, POSSIBLE SEIZURE FISH CLEANER MACHINE TENDER shunt surgery. History of seizures TECHNIQUE: Head CT without intravenous contrast. Coronal and Sagittal reconstruction series were provided. One or more dose reduction techniques were used (e.g., Automated exposure control, adjustment of the mA and/or kV according to patient size, use of iterative reconstruction technique. RADIATION DOSE SUMMARY: CTDlvol: 44.99 mGy DLP: 796.11 mGycm COMPARISON: None. FINDINGS: Brain: Right parietal FISH CLEANER MACHINE TENDER shunt tube appears satisfactorily positioned. No ventriculomegaly. No mass, mass effect or midline shift. No intra-axial or extra-axial hemorrhage. CSF Spaces: Again FISH CLEANER MACHINE TENDER shunt tube in place. Ventricles and sulci are normal in size. Sinuses/Mastoids: Mucous retention cyst in the base of the left maxillary sinus. Mastoid air cells and remaining sinuses are clear. Bones: Unremarkable. CT/Brain/Head without Contrast IMPRESSION: No acute process detected. Reading Location: [facility] CC: Dr. Aliza Roman MD; GUICHO Jarrell Signals Intelligence Analyst: Signed [facility] CBC W/Diff, Automatedon Absolute Lymph 1.95 X10 3/uL Normal 0.83-4.51 [facility] Comment on above: Performed By: #### L 501.9985, L501.5200, L501.9520 #### [facility] [address] [place], [address] Absolute Neut 4.9 X10 3/uL Normal 2.0-7.7 [facility] Comment on above: Performed By: #### L 501.9985, L501.5200, L501.9520 #### [facility] [address] [place], [address] Basophils/100 WBC (Bld) 0.7 % Normal 0-1 [facility] Comment on above: Performed By: #### L 501.9985, L501.5200, L501.9520 #### [facility] [address] [place], [address] Eosinophils/100 WBC (Bld) 2.6 % Normal 0-5 [facility] Comment on above: Performed By: #### L 501.9985, L501.5200, L501.9520 #### [facility] [address] [place], [address] Erythrocyte distribution width (RBC) [Ratio] 15.4 % High 11.6-14.6 [facility] Comment on above: Performed By: #### L 501.9985, L501.5200, L501.9520 #### [facility] [address] [place], [address] Hematocrit (Bld) [Volume fraction] 45.3 % Normal 40-54 [facility] Comment on above: Performed By: #### L 501.9985, L501.5200, L501.9520 #### [facility] [address] [place], [address] Hemoglobin (Bld) [Mass/Vol] 15.1 g/dL Normal 13.0-16.5 [facility] Comment on above: Performed By: #### L 501.9985, L501.5200, L501.9520 #### [facility] [address] [place], [address] IG% 1.300 High 0.0-0.9 [facility] Comment on above: Result Comment: IG% - Immature Granulocytes (promyelocytes, myelocytes and metamyelocytes) > 1% indicates that a LEFT SHIFT is Present. Performed By: #### L 501.9985, L501.5200, L501.9520 #### [facility] [address] [place], [address] Lymphocytes/100 WBC (Bld) 25.6 % Normal 19-41 [facility] Comment on above: Performed By: #### L 501.9985, L501.5200, L501.9520 #### [facility] [address] [place], [address] MCH (RBC) [Entitic mass] 29.4 pg Normal 27.0-32.0 [facility] Comment on above: Performed By: #### L 501.9985, L501.5200, L501.9520 #### [facility] [address] [place], [address] MCHC (RBC) [Mass/Vol] 33.3 g/dL Normal 32-36 [facility] Comment on above: Performed By: #### L 501.9985, L501.5200, L501.9520 #### [facility] [address] [place], [address] MCV (RBC) [Entitic vol] 88.1 fL Normal 80-94 [facility] Comment on above: Performed By: #### L 501.9985, L501.5200, L501.9520 #### [facility] [address] [place], [address] Monocytes/100 WBC (Bld) 5.5 % Normal 0-10 [facility] Comment on above: Performed By: #### L 501.9985, L501.5200, L501.9520 #### [facility] [address] [place], [address] Neutrophils/100 WBC (Bld) 64.3 % Normal 47-70 [facility] Comment on above: Performed By: #### L 501.9985, L501.5200, L501.9520 #### [facility] [address] [place], [address] Nucleated RBC (Bld) [#/Vol] 0 10*3/uL Normal 0-5 [facility] Comment on above: Performed By: #### L 501.9985, L501.5200, L501.9520 #### [facility] [address] [place], [address] Platelet mean volume (Bld) [Entitic vol] 11.8 fL Normal 6.2-12.0 [facility] Comment on above: Performed By: #### L 501.9985, L501.5200, L501.9520 #### [facility] [address] [place], [address] Platelets (Bld) [#/Vol] 190 10*3/uL Normal 150-450 [facility] Comment on above: Performed By: #### L 501.9985, L501.5200, L501.9520 #### [facility] [address] [place], [address] RBC (Bld) [#/Vol] 5.14 10*6/uL Normal 4.6-6.2 [facility] Comment on above: Performed By: #### L 501.9985, L501.5200, L501.9520 #### [facility] [address] [place], [address] RDW SD 49.7 fl High 35.1-43.9 [facility] Comment on above: Performed By: #### L 501.9985, L501.5200, L501.9520 #### [facility] [address] [place], [address] WBC (Bld) [#/Vol] 7.6 10*3/uL Normal 4.4-11.0 [facility] Comment on above: Performed By: #### L 501.9985, L501.5200, L501.9520 #### [facility] [address] [place], [address] Carbon dioxide, total [Moles /volume] in Central venous bloodOrdered By: Krystina Hernández on 11-27-2024 CO2 [Moles/Vol] 24.1 mmol/L 21.0-32.0 [facility] Chloride assayOrdered By: Prema Hernández on 11-27-2024 Chloride [Moles/Vol] 100 mmol/L 98-108 [facility] Emergency Department Summary on 11-27-2024 Emergency Department Summary [facility] Medical Records Department [address] [place] [address] Emergency Department Summary 11/27/24 MR#: [id number] Acct: [id number] Name: DONNA RODRIGES Rep #: [id number] : 1985 39 From: Krystina LINDO PCP: [...] has a PMH of T2DM, cerebral palsy, FISH CLEANER MACHINE TENDER shunt, obesity, HTN, and ROBERT. [facility] [...] (0.03 2 spray intranasal BID #30 mL 04/0 09/1608/28/24 Rx %) nasal spray naproxen 500 [...] Diabetes Surgica (more content not included)... [facility] Eosinophil percentageOrdered By: Krystina Hernández on 11-27-2024 Eosinophils/100 WBC (Bld) 2.6 % 0-5 [facility] Erythrocyte distribution wid th (RBC) [Ratio]Ordered By: Krystina Hernández on 11-27-2024 Erythrocyte distribution width (RBC) [Entitic vol] 49.7 fL High 35.1-43.9 [facility] Erythrocyte distribution wid th ratioOrdered By: Krystina Hernández on 11-27-2024 Erythrocyte distribution width (RBC) [Ratio] 15.4 % High 11.6-14.6 [facility] Erythrocyte distribution wid th standard deviationOrdered By: Krystina Hernández on 11-27-2024 Erythrocyte distribution width (RBC) [Ratio] 49.7 fl High 35.1-43.9 [facility] Estimation of creatinine dorothy aranceOrdered By: Krystina Hernández on 11-27-2024 Estimated Creatinine Clearance Calc 227.50 ml/min 50-250 [facility] GFR/1.73 sq M.predicted supa g non-blacks MDRD (S/P/Bld) [Vol rate/Area]Ordered By: Krystina Hernández on 11-27-2024 Estimated GFR (MDRD) Non-Af Amer 125 >60 [facility] Comment on above: mL/min/1.73m2 CKD-EP I Creatinine Equation (2020) Glomerular filtration rate ( GFR) estimation/1.73 sq m using serum, plasma, or whole bOrdered By: Krystina Hernández on 11-27-2024 GFR/1.73 sq M.predicted among non-blacks MDRD (S/P/Bld) [Vol rate/Area] 125 mL/min/{1.73_m2} >60 [facility] Comment on above: mL/min/1.73m2 CKD-EP I Creatinine Equation (2020) HIP, UNI W/ Pelvis 2-3 Views on 11-27-2024 HIP, UNI W/ Pelvis 2-3 Views [facility] Imaging Services [address] [place] [address] HIP, UNI W/ Pelvis 2-3 Views MR#: [id number] Acct: [id number] Name: DONNA RODRIGES Rep #: [id number] : 1985 M 39 From: Asif Toledo DO PCP: Dr. Aliza Roman MD Status: REG ER Study: HIP, UNI W/ Pelvis 2-3 Views Date of Exam: 02/15 Exam# [id number] Ordering Dr: Krystina Hernández PROCEDURE: HIP, UNI [...] Advanced osteoarthritis of left hip. Reading [facility] CC: Dr. Aliza Roman MD; GUICHO Jarrell Signals Intelligence Analyst: Signed [facility] Hematocrit Auto (Bld) [Volum e fraction]Ordered By: Krystina Hernández on 11-27-2024 Hematocrit (Bld) [Volume fraction] 45.3 % 40-54 [facility] Hemoglobin measurementOrdere d By: Krystina Hernández on 11-27-2024 Hemoglobin (Bld) [Mass/Vol] 15.1 g/dL 13.0-16.5 [facility] Immature granulocytes/100 WB C Auto (Bld)Ordered By: Krystina Hernández on 11-27-2024 Immature granulocytes/100 WBC (Bld) 1.300 % High 0.0-0.9 [facility] Comment on above: IG% - Immature Granu locytes (promyelocytes, myelocytes and metamyelocytes) > 1% indicates that a LEFT SHIFT is Present. L501.4021on 11-27-2024 Trop T High Sen 12 ng/L Normal <=22 [facility] Comment on above: Performed By: #### L 501.9959, L501.5200, L501.9520 #### [facility] [address] [place], [place], [address] L503.7505on 11-27-2024 proBNP < 36 Normal <=450 [facility] Comment on above: Result Comment: Hear t Failure Unlikely: < 300 pg/mL Heart Failure Likely < 50 Years: > 450 pg/mL 50-75 Years: > 900 pg/mL >75 Years: > 1800 pg/mL Performed By: #### L 501.9985, L501.5200, L501.9520 #### [facility] [address] [place], [address] Lymphocytes Auto (Unsp spec) [#/Vol]Ordered By: Krystina Hernández on 11-27-2024 Lymphocytes (Bld) [#/Vol] 1.95 10*3/uL 0.83-4.5 1 [facility] Lymphocytes/100 WBC Auto (Un sp spec)Ordered By: Krystina Hernández on 11-27-2024 Lymphocytes/100 WBC (Bld) 25.6 % 19-41 [facility] MCV (mean corpuscular volume ) determinationOrdered By: Krystina Hernández on 11-27-2024 MCV (RBC) [Entitic vol] 88.1 fL 80-94 [facility] Mean corpuscular hemoglobin (MCH) determinationOrdered By: Krystina Hernández on 11-27-2024 MCH (RBC) [Entitic mass] 29.4 pg 27.0-32.0 [facility] Mean corpuscular hemoglobin concentration (MCHC) determinationOrdered By: Krystina Hernández on 11-27-2024 MCHC (RBC) [Mass/Vol] 33.3 g/dL 32-36 [facility] Mean platelet volume determi nationOrdered By: Krystina Hernández on 11-27-2024 Platelet mean volume (Bld) [Entitic vol] 11.8 fL 6.2-12.0 [facility] Monocyte percentageOrdered B y: Krystina Hernández on 11-27-2024 Monocytes/100 WBC (Bld) 5.5 % 0-10 [facility] Natriuretic peptide.B prohor valentine N-Terminal [Mass/Vol]Ordered By: Krystina Hernández on 11-27-2024 EG-OtrQ-Ytro Natriuretic Peptide II < 36 pg/mL <450 [facility] Comment on above: Heart Failure Unlike ly: < 300 pg/mLHeart Failure Likely< 50 Years: > 450 pg/mL50-75 Years: > 900 pg/mL>75 Years: > 1800 pg/mL Natriuretic peptide.B prohor valentine N-Terminal [Mass/volume] in Serum or PlasmaOrdered By: Krystina Hernández on 11-27-2024 Natriuretic peptide.B prohormone N-Terminal [Mass/Vol] < 36 pg/mL <450 [facility] Comment on above: Heart Failure Unlike ly: < 300 pg/mLHeart Failure Likely< 50 Years: > 450 pg/mL50-75 Years: > 900 pg/mL>75 Years: > 1800 pg/mL Neutrophil percentageOrdered By: Krystina Hernández on 11-27-2024 Neutrophils/100 WBC (Bld) 64.3 % 47-70 [facility] Nucleated red blood cell per centageOrdered By: Krystina Hernández on 11-27-2024 Nucleated RBC/100 WBC (Bld) [Ratio] 0 % 0-5 [facility] Platelet countOrdered By: Prema Hernández on 11-27-2024 Platelets (Bld) [#/Vol] 190 10*3/uL 150-450 [facility] Potassium (Unsp spec) [Mass/ Vol]Ordered By: Krystina Hernández on 11-27-2024 Potassium [Moles/Vol] 3.9 mmol/L 3.3-5.1 [facility] Potassium measurement (mass/ volume)Ordered By: Krystina Hernández on 11-27-2024 Potassium (Unsp spec) [Mass/Vol] 3.9 mmol/L 3.3-5.1 [facility] RBC Auto (Bld) [#/Vol]Ordere d By: Krystina Hernández on 11-27-2024 RBC (Bld) [#/Vol] 5.14 10*6/uL 4.6-6.2 [facility] Serum creatinine measurement (mass/volume)Ordered By: Krystina Hernández on 11-27-2024 Creatinine [Mass/Vol] 0.61 mg/dL Low 0.70-1.20 [facility] Serum glucose measurement (m ass/volume)Ordered By: Krystina Hernández on 11-27-2024 Glucose [Mass/Vol] 303 mg/dL High 70-99 [facility] Serum or plasma calcium gloria urement (mass/volume)Ordered By: Krystina Hernández on 11-27-2024 Calcium [Mass/Vol] 9.2 mg/dL 7.6-11.0 [facility] Serum or plasma urea nitroge n measurement (mass/volume)Ordered By: Krystina Hernández on 11-27-2024 Urea nitrogen [Mass/Vol] 16 mg/dL 4-19 [facility] Shuntogram/Prev Placed Shunt on 11-27-2024 Shuntogram/Prev Placed Shunt [facility] Imaging Services [address] [place] [address] Shuntogram/Prev Placed Shunt MR#: [id number] Acct: [id number] Name: DONNA RODRIGES Rep #: [id number] : 1985 M 39 From: Asif Toledo DO PCP: Dr. Aliza Roman MD Status: [facility] ER Study: Shuntogram/Prev Placed Shunt Date of Exam: 02/15 Exam# [id number] Ordering Dr: Davonte Mendez DO EXAM: Diagnostic shuntogram of placed shunt. CLINICAL HISTORY: Bilateral lower extremity edema for 2 days. COMPARISON: Yesterday, November 26 pelvis and November 27 brain TECHNIQUE: Plain films were obtained to survey the entire course of the right-sided FISH CLEANER MACHINE TENDER shunt. FINDINGS: Skull demonstrates right parietal shunt. The tubing traverses the right skull and right thorax and then is seen right abdomen initially and then crosses over to the left abdomen. No obvious kinking or other abnormality. RAD/Shuntogram/Prev Placed Shunt IMPRESSION: Patent FISH CLEANER MACHINE TENDER shunt. Reading [facility] CC: Dr. Aliza Roman MD; Dr. Davonte Mendez DO Signals Intelligence Analyst: Signed [facility] Sodium levelOrdered By: Obey Hernández on 11-27-2024 Sodium [Moles/Vol] 138 mmol/L 133-145 [facility] Troponin T.cardiac High sens itivity method [Mass/Vol]Ordered By: Krystina Hernández on 11-27-2024 Troponin T High Sensitivity 12 ng/L <22 [facility] Troponin T.cardiac [Mass/vol ume] in Serum or Plasma by High sensitivity methodOrdered By: Krystina Hernández on 11-27-2024 Troponin T.cardiac High sensitivity method [Mass/Vol] 12 ng/L <22 [facility] White blood cell (WBC) count Ordered By: Krystina Hernández on 11-27-2024 WBC (Bld) [#/Vol] 7.6 10*3/uL 4.4-11.0 [facility] [place] Emergency Department Summary on 10-28-2024 Emergency Department Summary [facility] Medical Records Department [address] [place] [address] Emergency Department Summary 10/28/24 MR#: [id number] Acct: [id number] Name: DONNA RODRIGES Rep #: [id number] : 1985 39 From: Madhu Page DO [...] mg tablet 300 mg PO DAILY gout 06/09/15/0 01/15 History nebivolol 10 mg tablet 10 mg PO DAILY heart 10/17/15 01/0 5/25 History baclofen 20 mg tablet 20 mg [...] H/O hernia repair H/O eye surgery S/P [employer] shunt Social History Smoking Status: Never smoker [...] Musculoskeletal Musc (more content not included)... Normal [facility] Venous Duplex US, Unilateral on 10-28-2024 Venous Duplex US, Unilateral [facility] [address] [place] [address] Venous Duplex US, Unilateral 10/28/24 1307 MR#: [id number] Acct: [id number] Name: DONNA RODRIGES Rep #: [id number] : 1985 39 From: Mamadou Mendoza MD [...] Date Dictated: 10/28/24 1307 Date Transcribed: 10/31/241809 Signals Intelligence Analyst: Signed Normal [facility] Albumin to globulin ratioOrd ered By: Aliza Roman on 09-21-2024 Albumin/Globulin [Mass ratio] 0.7 {ratio} Low 0.9-2.4 [facility] Bilirubin, totalOrdered By: Aliza Roman on 09-21-2024 Bilirubin [Mass/Vol] 0.40 mg/dL 0.20-1.00 [facility] Comment on above: For patients on eltr ombopag therapy, use of Dimension [place] TBIL is not recommended. Blood urea nitrogen (BUN)/cr eatinine ratioOrdered By: Aliza Roman on 09-21-2024 Urea nitrogen/Creatinine [Mass ratio] 22.3 mg/mg High 10-20 [facility] Carbon dioxide measurementOr dered By: Aliza Roman on 09-21-2024 CO2 [Moles/Vol] 27.0 mmol/L 21.0-32.0 [facility] Chloride measurementOrdered By: Aliza Roman on 09-21-2024 Chloride [Moles/Vol] 101 mmol/L 98-107 [facility] Comprehensive Metabolic Prof ilon 09-21-2024 Albumin [Mass/Vol] 3.4 g/dL Normal 3.2-5.0 [facility] Comment on above: Performed By: #### L 501.9985, L501.5200, L501.9520 #### [facility] [address] [place], [address] Albumin/Globulin [Mass ratio] 0.7 {ratio} Low 0.9-2.4 [facility] Comment on above: Performed By: #### L 501.9985, L501.5200, L501.9520 #### [facility] [address] [place], [address] ALK P 126 U/L High 45-117 [facility] Comment on above: Performed By: #### L 501.9985, L501.5200, L501.9520 #### [facility] [address] [place], [address] ALT [Catalytic activity/Vol] 84 U/L High 16-61 [facility] Comment on above: Performed By: #### L 501.9985, L501.5200, L501.9520 #### [facility] [address] [place], [address] AST [Catalytic activity/Vol] 54 U/L High 15-37 [facility] Comment on above: Performed By: #### L 501.9985, L501.5200, L501.9520 #### [facility] [address] [place], [address] Bilirubin [Mass/Vol] 0.40 mg/dL Normal 0.20-1.00 [facility] Comment on above: Result Comment: For patients on eltrombopag therapy, use of Dimension [place] TBIL is not recommended. Performed By: #### L 501.9985, L501.5200, L501.9520 #### [facility] [address] [place], [address] BUN/CRE 22.3 RATIO High 10-20 [facility] Comment on above: Performed By: #### L 501.9985, L501.5200, L501.9520 #### [facility] [address] [place], [address] CA,Total 9.4 mg/dL Normal 8.5-10.1 [facility] Comment on above: Performed By: #### L 501.9985, L501.5200, L501.9520 #### [facility] [address] [place], [address] Chloride [Moles/Vol] 101 mmol/L Normal 98-107 [facility] Comment on above: Performed By: #### L 501.9985, L501.5200, L501.9520 #### [facility] [address] [place], [address] CO2 [Moles/Vol] 27.0 mmol/L Normal 21.0-32.0 [facility] Comment on above: Performed By: #### L 501.9985, L501.5200, L501.9520 #### [facility] [address] [place], [address] Creatinine [Mass/Vol] 0.72 mg/dL Normal 0.70-1.30 [facility] Comment on above: Result Comment: The validity of the calculated GFR GFRAA in patients over 70 years has not been determined. Clinical correlation is essential. Performed By: #### L 501.9985, L501.5200, L501.9520 #### [facility] [address] [place], [address] EST GFR - AA 156 mL/min Normal >60 [facility] Comment on above: Result Comment: Afri can Macedonian GFR Calc Performed By: #### L 501.9985, L501.5200, L501.9520 #### [facility] [address] [place], [address] GAP 8 Normal 5-15 [facility] Comment on above: Performed By: #### L 501.9985, L501.5200, L501.9520 #### [facility] [address] [place], [address] GFR/1.73 sq M.predicted among non-blacks MDRD (S/P/Bld) [Vol rate/Area] 129 mL/min/{1.73_m2} Normal >60 [facility] Comment on above: Result Comment: Non- GFR Calc Performed By: #### L 501.9985, L501.5200, L501.9520 #### [facility] [address] [place], [address] Globulin (S) [Mass/Vol] 4.7 g/dL High 2.2-4.2 [facility] Comment on above: Performed By: #### L 501.9985, L501.5200, L501.9520 #### [facility] [address] [place], [address] Glucose [Mass/Vol] 319 mg/dL High 74-106 [facility] Comment on above: Result Comment: Gluc ose result greater than or equal to 200 mg/dL suggests DIABETES MELLITUS per A.D.A. criteria. Performed By: #### L 501.9985, L501.5200, L501.9520 #### [facility] [address] [place], [address] Potassium [Moles/Vol] 4.3 mmol/L Normal 3.5-5.1 [facility] Comment on above: Performed By: #### L 501.9985, L501.5200, L501.9520 #### [facility] [address] [place], [address] Sodium [Moles/Vol] 136 mmol/L Normal 136-145 [facility] Comment on above: Performed By: #### L 501.9985, L501.5200, L501.9520 #### [facility] [address] [place], [address] T PROT 8.1 g/dL Normal 6.4-8.2 [facility] Comment on above: Performed By: #### L 501.9985, L501.5200, L501.9520 #### [facility] [address] [place], [address] Urea nitrogen [Mass/Vol] 16 mg/dL Normal 7-18 [facility] Comment on above: Performed By: #### L 501.9985, L501.5200, L501.9520 #### [facility] [address] [place], [address] Estimated glomerular filtrat ion rate (GFR) AmericanOrdered By: Aliza Roman on 09-21-2024 Estimated GFR (MDRD) Amer 156 mL/min >60 [facility] Comment on above: GFR Calc Glomerular filtration rate ( GFR) estimationOrdered By: Aliza Roman on 09-21-2024 Estimated GFR (MDRD) Non-Af Amer 129 mL/min >60 [facility] Comment on above: Non- GFR Calc GFR/1.73 sq M.predicted among non-blacks MDRD (S/P/Bld) [Vol rate/Area] 129 mL/min/{1.73_m2} >60 [facility] Comment on above: Non- GFR Calc Glucose measurementOrdered B y: Aliza Roman on 09-21-2024 Glucose [Mass/Vol] 319 mg/dL High 74-106 [facility] Comment on above: Glucose result great er than or equal to 200 mg/dLsuggests DIABETES MELLITUS per A.D.A. criteria. High density lipoprotein (HD L) measurementOrdered By: Aliza Roman on 09-21-2024 Cholesterol in HDL [Mass/Vol] 37 mg/dL Low >40 [facility] Comment on above: The drugs N-Acetylcy steine and Metamizole may falsely depress this assay. Reference Range HDL <40 mg/dL Low HDL Cholesterol HDL >or= 60 mg/dL High HDL Cholesterol Laboratory - Chemistry and C hemistry - challengeOrdered By: Aliza Roman on 09-21-2024 AST [Catalytic activity/Vol] 54 U/L High 15-37 [facility] Lipid Profileon 09-21-2024 Cholesterol [Mass/Vol] 233 mg/dL High 200 [facility] Comment on above: Result Comment: <200 mg/dL Desirable 200-240 mg/dL Borderline >240 mg/dL High Risk Performed By: #### L 501.9985, L501.5200, L501.9520 #### [facility] [address] [place], [place], [address] Cholesterol in HDL [Mass/Vol] 37 mg/dL Low [facility] Comment on above: Result Comment: The drugs N-Acetylcysteine and Metamizole may falsely depress this assay. Reference Range HDL <40 mg/dL Low HDL Cholesterol HDL >or= 60 mg/dL High HDL Cholesterol Performed By: #### L 501.9985, L501.5200, L501.9520 #### [facility] [address] [place], [address] Cholesterol in LDL [Mass/Vol] 134 mg/dL High 0-130 [facility] Comment on above: Performed By: #### L 501.9985, L501.5200, L501.9520 #### [facility] [address] [place], [address] Cholesterol in VLDL [Mass/Vol] 62 mg/dL High 5-40 [facility] Comment on above: Performed By: #### L 501.9985, L501.5200, L501.9520 #### [facility] [address] [place], [address] Triglyceride [Mass/Vol] 311 mg/dL High [facility] Comment on above: Result Comment: The drugs N-Acetylcysteine and Metamizole may falsely depress this assay. Serum Triglycerides Reference Interval Normal <150 mg/dL Borderline high 150 - 199 mg/dL High 200 - 499 mg/dL Very High > or = 500 mg/dL Performed By: #### L 501.9985, L501.5200, L501.9520 #### [facility] [address] [place], [address] Low density lipoprotein (LDL ) cholesterol measurementOrdered By: Aliza Roman on 09-21-2024 Cholesterol in LDL [Mass/Vol] 134 mg/dL High 0-130 [facility] Microalb:Creat Ratio,Random URon 09-21-2024 Creatinine [Mass/Vol] 55.10 mg/dL Normal NO RAN GE EST. [facility] Comment on above: Performed By: #### L 501.9985, L501.5200, L501.9520 #### [facility] [address] [place], [address] MALB:CRE 16.1 mg/g CRE Normal <30 mg/g CRE [facility] Comment on above: Performed By: #### L 501.9985, L501.5200, L501.9520 #### [facility] [address] [place], [address] MICROALBUMIN,UR 8.8 mg/L Normal NO RANGE EST. [facility] Comment on above: Performed By: #### L 501.9985, L501.5200, L501.9520 #### [facility] [address] [place], [address] Potassium measurementOrdered By: Aliza Roman on 09-21-2024 Potassium [Moles/Vol] 4.3 mmol/L 3.5-5.1 [facility] Random urine microalbumin me asurementOrdered By: Aliza Roman on 09-21-2024 Urine Random Microalbumin 8.8 mg/L NO RANGE EST. [facility] Serum anion gap measurementO rdered By: Aliza Roman on 09-21-2024 Anion gap [Moles/Vol] 8 mmol/L 5-15 [facility] Serum globulin measurementOr dered By: Aliza Roman on 09-21-2024 Globulin (S) [Mass/Vol] 4.7 g/dL High 2.2-4.2 [facility] Serum or plasma alanine elizondo otransferase (ALT) measurementOrdered By: Aliza Roman on 09-21-2024 ALT [Catalytic activity/Vol] 84 U/L High 16-61 [facility] Serum or plasma albumin gloria urement (mass/volume)Ordered By: Aliza Roman on 09-21-2024 Albumin [Mass/Vol] 3.4 g/dL 3.2-5.0 [facility] Serum or plasma alkaline ramesh sphatase measurementOrdered By: Aliza Roman on 09-21-2024 ALP [Catalytic activity/Vol] 126 U/L High 45-117 [facility] Serum or plasma calcium gloria urement (mass/volume)Ordered By: Aliza Roman on 09-21-2024 Calcium [Mass/Vol] 9.4 mg/dL 8.5-10.1 [facility] Serum or plasma cholesterol measurement (mass/volume)Ordered By: Aliza Roman on 09-21-2024 Cholesterol [Mass/Vol] 233 mg/dL High <200 [facility] Comment on above: <200 mg/dL Desirable 200-240 mg/dL Borderline >240 mg/dL High Risk Serum or plasma creatinine m easurement (mass/volume)Ordered By: Aliza Roman on 09-21-2024 Creatinine [Mass/Vol] 0.72 mg/dL 0.70-1.30 [facility] Comment on above: The validity of the calculated GFR & GFRAA in patients over 70 years has not been determined. Clinical correlation is essential. Serum or plasma urea nitroge n measurement (mass/volume)Ordered By: Aliza Roman on 09-21-2024 Urea nitrogen [Mass/Vol] 16 mg/dL 7-18 [facility] Sodium levelOrdered By: Snuny Roman on 09-21-2024 Sodium [Moles/Vol] 136 mmol/L 136-145 [facility] Total proteinOrdered By: Byron Roman on 09-21-2024 Protein [Mass/Vol] 8.1 g/dL 6.4-8.2 [facility] Triglycerides measurementOrd ered By: Aliza Roman on 09-21-2024 Triglyceride [Mass/Vol] 311 mg/dL High <199 [facility] Comment on above: The drugs N-Acetylcy steine and Metamizole may falsely depress this assay.Serum Triglycerides Reference Interval Normal <150 mg/dL Borderline high 150 - 199 mg/dL High 200 - 499 mg/dL Very High > or = 500 mg/dL Urine albumin/creatinine rat io for detection of microalbuminuriaOrdered By: Aliza Roman on 09-21-2024 Urine Microalbumin/Creatinine Ratio 16.1 mg/g CRE <30 [facility] Urine creatinine measurement (mass/volume)Ordered By: Aliza Roman on 09-21-2024 Creatinine (U) [Mass/Vol] 55.10 mg/dL NO RANGE EST. [facility] Very low density lipoprotein (VLDL) cholesterol measurementOrdered By: Aliza Roman on 09-21-2024 Very low density lipoprotein (VLDL) cholesterol measurement 62 mg/dL High 5-40 [facility] VLDL Cholesterol 62 mg/dL High 5-40 [facility] Bedside Glucoseon 08-29-2024 FINGERSTICK GLU 287 mg/dL High 74-106 [facility] Comment on above: Result Comment: TIN BESS OF PATIENT CARE PER NURSING PROTOCOL Performed By: #### L 501.080 #### [facility] [address] [facility] [address] Performed By: #### L 501.080 ####[facility] [address] [place], [address] Fluoro Guided Needle Placeme nton 08-29-2024 Fluoro Guided Needle Placement [facility] Imaging Services [address] [place], [place] [address] Fluoro Guided Needle Placement MR#: [id number] Acct: [id number] Name: DONNA RODRIGES Rep #: [id number] : 1985 M 39 From: Donaldo powell MD PCP: Dr. Aliza Roman MD Status: [facility] Study: Fluoro Guided Needle Placement Date of Exam: 0 08/29/24 Exam# [id number] Ordering [place]: [place] [id number] STUDY: HIP INJECTION. LEFT REASON FOR EXAM: Male, 39 years old. LT HIP INJECTION FLUOROSCOPY TIME (if supplied): ( 4 seconds ) minutes/seconds. 1.94 mGy. One image was submitted. FINDINGS: Intraoperative imaging provided for left hip injection. RAD/Fluoro Guided Needle Placement IMPRESSION: Intraoperative imaging provided for left hip injection. Electronically Signed: Donaldo Roldan MD at 12:02 EST Reading Location ID and State: [address] [place] [address] , Service support , CC: Dr. Aliza Roman MD; Dr. Carlos Ibarra MD Signals Intelligence Analyst: Signed [facility] Fluoro Guided Needle Placement [facility] Imaging Services [address] [place], [place] [id number] Fluoro Guided Needle Placement MR#: [id number] Acct: [id number] Name: DONNA RODRIGES Rep #: [id number] : 1985 M 39 From: Donaldo powell MD PCP: Dr. Aliza Roman MD Status: PRE [facility] Study: Fluoro Guided Needle Placement Date of Exam: 0 08/29/24 Exam# [id number] Ordering [place]: [place] [id number] STUDY: HIP INJECTION. LEFT REASON FOR EXAM: Male, 39 years old. LT HIP INJECTION FLUOROSCOPY TIME (if supplied): ( 4 seconds ) minutes/seconds. 1.94 mGy. One image was submitted. FINDINGS: Intraoperative imaging provided for left hip injection. RAD/Fluoro Guided Needle Placement IMPRESSION: Intraoperative imaging provided for left hip injection. Electronically Signed: Donaldo Roldan MD at 12:02 EST Reading Location ID and State: [facility] / [place] , Service support , CC: Dr. Aliza Roman MD; Dr. Carlos Ibarra MD Signals Intelligence Analyst: Signed Normal [facility] Operative Reporton 5 Operative Report [facility] Medical Records Department [address] [place] [address] Operative Report 08/29/24 1114 MR#: [id number] Acct: [id number] Name: DONNA RODRIGES Rep #: [id number] : 1985 39 From: Carlos Ibarra MD PCP: Dr. Aliza Roman MD Status:REG [facility] Location: [place] [address] Operative Report (Standard) Operative Information Date of Procedure: 08/29/24 Pre-Operative Diagnosis: 1 Post-Operative Diagnosis: 1 Surgery/Procedure Performed: 1 pantograph transferrer: No Type of Anesthesia: Local RN Documented [...] MD; Dr. Carlos Ibarra MD Signed Normal [facility] XR SHUNTOGRAMon 02-03-2024 XR SHUNTOGRAM ORIGINAL EXAMINATION: [...] 9:18:07 AM Ordering Provider: [facility]AIL[facility] HEAD OR BRAIN W/O CONTRAS Ton [...] 02/02/2024 3:05:07 PM Ordering Provider: KAIL[facility]FE[facility] Absolute lymphocyte countOrd ered By: Robinson Guillen on 12-23-2023 Lymphocytes Auto (Unsp spec) [#/Vol] 1.77 10*3/uL 0.83-4.51 [facility] Automated lymphocyte count a s percentage of total leukocytesOrdered By: Robinson Guillen on 12-23-2023 Lymphocytes/100 WBC Auto (Unsp spec) 21.6 % 19-41 [facility] Basophil percentageOrdered B y: Robinson Guillen on 12-23-2023 Basophils/100 WBC (Bld) 0.5 % 0-1 [facility] Bilirubin [Mass/Vol] 0.40 mg/dL 0.20-1.00 [facility] Comment on above: For patients on eltr ombopag therapy, use of Dimension [place] TBIL is not recommended. Chloride [Moles/Vol] 102 mmol/L 98-107 [facility] Eosinophils/100 WBC (Bld) 2.2 % 0-5 [facility] Glucose [Mass/Vol] 243 mg/dL 74-106 [facility] Comment on above: Glucose result great er than or equal to 200 mg/dLsuggests DIABETES MELLITUS per A.D.A. criteria. Hemoglobin (Bld) [Mass/Vol] 15.1 g/dL 13.0-16.5 [facility] Monocytes/100 WBC (Bld) 7.3 % 0-10 [facility] Neutrophils (Bld) [#/Vol] 5.5 10*3/uL 2.0-7.7 [facility] Neutrophils/100 WBC (Bld) 67.2 % 47-70 [facility] Potassium [Moles/Vol] 4.3 mmol/L 3.5-5.1 [facility] Comment on above: Moderate Hemolysis, Result may be falsely increased. Protein [Mass/Vol] 8.2 g/dL 6.4-8.2 [facility] Sodium [Moles/Vol] 138 mmol/L 136-145 [facility] WBC (Bld) [#/Vol] 8.2 10*3/uL 4.4-11.0 [facility] Determination of erythrocyte mean corpuscular volume (MCV)Ordered By: Robinson Guillen on 12-23-2023 MCV (RBC) [Entitic vol] 86.8 fL 80-94 [facility] Erythrocyte distribution wid th ratioOrdered By: Robinson Guillen on 12-23-2023 Erythrocyte distribution width (RBC) [Ratio] 15.3 % 11.6-14.6 [facility] Erythrocyte distribution wid th standard deviationOrdered By: Robinson Guillen on 12-23-2023 Erythrocyte distribution width (RBC) [Entitic vol] 47.8 fL 35.1-43.9 [facility] Hematocrit Auto (Bld) [Volum e fraction]Ordered By: Robinson Guillen on 12-23-2023 Hematocrit (Bld) [Volume fraction] 46.0 % 40-54 [facility] Immature granulocytes/100 WB C Auto (Bld)Ordered By: Robinson Guillen on 12-23-2023 Immature granulocytes/100 WBC (Bld) 1.200 % 0.0-0.9 [facility] Comment on above: IG% - Immature Granu locytes (promyelocytes, myelocytes and metamyelocytes) > 1% indicates that a LEFT SHIFT is Present. Laboratory - Chemistry and C hemistry - challengeOrdered By: Robinson Guillen on 12-23-2023 Albumin/Globulin [Mass ratio] 0.8 {ratio} 0.9-2.4 [facility] ALP [Catalytic activity/Vol] 84 U/L 45-117 [facility] ALT [Catalytic activity/Vol] 41 U/L 16-61 [facility] CO2 [Moles/Vol] 32.0 mmol/L 21.0-32.0 [facility] Globulin (S) [Mass/Vol] 4.5 g/dL 2.2-4.2 [facility] Urea nitrogen/Creatinine [Mass ratio] 22.1 mg/mg 10-20 [facility] - Hematology and Cell countsOrdered By: Robinson Guillen on 12-23-2023 MCH (RBC) [Entitic mass] 28.5 pg 27.0-32.0 [facility] MCHC (RBC) [Mass/Vol] 32.8 g/dL 32-36 [facility] Nucleated RBC/100 WBC (Bld) [Ratio] 0 % 0-5 [facility] Platelet mean volume (Bld) [Entitic vol] 10.2 fL 6.2-12.0 [facility] Platelets (Bld) [#/Vol] 218 10*3/uL 150-450 [facility] No Panel InformationOrdered By: Robinson Guillen on 12-23-2023 Estimated Creatinine Clearance Calc 204.27 ml/min [facility] Estimated GFR (MDRD) Amer 167 mL/min >60 [facility] Comment on above: GFR Calc Estimated GFR (MDRD) Non-Af Amer 138 mL/min >60 [facility] Comment on above: Non- GFR Calc Troponin I High Sensitivity < 3 pg/mL 3.0-78.0 [facility] Comment on above: Please Note: New Katja t Units and Gender Specific Reference Ranges. For more information see Policy Stat Procedure [place] High Sensitivity Troponin (TNIH) and attachments. RBC Auto (Bld) [#/Vol]Ordere d By: Robinson Guillen on 12-23-2023 RBC (Bld) [#/Vol] 5.30 10*6/uL 4.6-6.2 [facility] Serum or plasma calcium gloria urement (mass/volume)Ordered By: Robinson Guillen on 12-23-2023 Calcium [Mass/Vol] 9.1 mg/dL 8.5-10.1 [facility] Serum or plasma creatinine m easurement (mass/volume)Ordered By: Robinson Guillen on 12-23-2023 Creatinine [Mass/Vol] 0.68 mg/dL 0.70-1.30 [facility] Comment on above: The validity of the calculated GFR & GFRAA in patients over 70 years has not been determined. Clinical correlation is essential. Serum or plasma urea nitroge n measurement (mass/volume)Ordered By: Robinson Guillen on 12-23-2023 Urea nitrogen [Mass/Vol] 15 mg/dL 7-18 [facility] Thin prep Papanicolaou smear with manual screeningOrdered By: Robinson Guillen on 12-23-2023 Thin prep Papanicolaou smear with manual screening 3.7 g/dL 3.2-5.0 [facility] Thin prep Papanicolaou smear with manual screening 31 U/L 15-37 [facility] Comment on above: Moderate Hemolysis, Result may be falsely increased. Thin prep Papanicolaou smear with manual screening 4 5-15 [facility] Absolute lymphocyte countOrd ered By: Zeny Dumont on 12-18-2023 Lymphocytes Auto (Unsp spec) [#/Vol] 2.65 10*3/uL 0.83-4.51 [facility] Automated lymphocyte count a s percentage of total leukocytesOrdered By: Zeny Dumont on 12-18-2023 Lymphocytes/100 WBC Auto (Unsp spec) 27.8 % 19-41 [facility] Basophil percentageOrdered B y: Zeny Dumont on 12-18-2023 Basophils/100 WBC (Bld) 0.6 % 0-1 [facility] Chloride [Moles/Vol] 104 mmol/L 98-107 [facility] Eosinophils/100 WBC (Bld) 2.0 % 0-5 [facility] Glucose [Mass/Vol] 216 mg/dL 74-106 [facility] Comment on above: Glucose result great er than or equal to 200 mg/dLsuggests DIABETES MELLITUS per A.D.A. criteria. Hemoglobin (Bld) [Mass/Vol] 14.7 g/dL 13.0-16.5 [facility] Monocytes/100 WBC (Bld) 7.9 % 0-10 [facility] Neutrophils (Bld) [#/Vol] 5.8 10*3/uL 2.0-7.7 [facility] Neutrophils/100 WBC (Bld) 60.9 % 47-70 [facility] Potassium [Moles/Vol] 4.6 mmol/L 3.5-5.1 [facility] Comment on above: Moderate Hemolysis, Result may be falsely increased. Sodium [Moles/Vol] 139 mmol/L 136-145 [facility] WBC (Bld) [#/Vol] 9.5 10*3/uL 4.4-11.0 [facility] Determination of erythrocyte mean corpuscular volume (MCV)Ordered By: Zeny Dumont on 12-18-2023 MCV (RBC) [Entitic vol] 87.8 fL 80-94 [facility] Erythrocyte distribution wid th ratioOrdered By: Zeny Dumont on 12-18-2023 Erythrocyte distribution width (RBC) [Ratio] 15.2 % 11.6-14.6 [facility] Erythrocyte distribution wid th standard deviationOrdered By: Zeny uDmont on 12-18-2023 Erythrocyte distribution width (RBC) [Entitic vol] 48.0 fL 35.1-43.9 [facility] Hematocrit Auto (Bld) [Volum e fraction]Ordered By: Zeny Dumont on 12-18-2023 Hematocrit (Bld) [Volume fraction] 44.7 % 40-54 [facility] Immature granulocytes/100 WB C Auto (Bld)Ordered By: Zeny Dumont on 12-18-2023 Immature granulocytes/100 WBC (Bld) 0.800 % 0.0-0.9 [facility] Comment on above: IG% - Immature Granu locytes (promyelocytes, myelocytes and metamyelocytes) > 1% indicates that a LEFT SHIFT is Present. Laboratory - Chemistry and C hemistry - challengeOrdered By: Zeny Dumont on 12-18-2023 CO2 [Moles/Vol] 31.0 mmol/L 21.0-32.0 [facility] Urea nitrogen/Creatinine [Mass ratio] 27.1 mg/mg 10-20 [facility] Laboratory - Hematology and Cell countsOrdered By: Zeny Dumont on 12-18-2023 MCH (RBC) [Entitic mass] 28.9 pg 27.0-32.0 [facility] MCHC (RBC) [Mass/Vol] 32.9 g/dL 32-36 [facility] Nucleated RBC/100 WBC (Bld) [Ratio] 0 % 0-5 [facility] Platelet mean volume (Bld) [Entitic vol] 10.8 fL 6.2-12.0 [facility] Platelets (Bld) [#/Vol] 225 10*3/uL 150-450 [facility] No Panel InformationOrdered By: Zeny Dumont on 12-18-2023 Estimated Creatinine Clearance Calc 194.38 ml/min [facility] Estimated GFR (MDRD) Amer 160 mL/min >60 [facility] Comment on above: GFR Calc Estimated GFR (MDRD) Non-Af Amer 133 mL/min >60 [facility] Comment on above: Non- GFR Calc RBC Auto (Bld) [#/Vol]Ordere d By: Zeny Dumont on 12-18-2023 RBC (Bld) [#/Vol] 5.09 10*6/uL 4.6-6.2 [facility] Serum or plasma calcium gloria urement (mass/volume)Ordered By: Zeny Dumont on 12-18-2023 Calcium [Mass/Vol] 8.7 mg/dL 8.5-10.1 [facility] [place] Serum or plasma creatinine m easurement (mass/volume)Ordered By: Zeny Dumont on 12-18-2023 Creatinine [Mass/Vol] 0.70 mg/dL 0.70-1.30 [facility] Comment on above: The validity of the calculated GFR & GFRAA in patients over 70 years has not been determined. Clinical correlation is essential. Serum or plasma urea nitroge n measurement (mass/volume)Ordered By: Zeny Dumont on 12-18-2023 Urea nitrogen [Mass/Vol] 19 mg/dL 7-18 [facility] Thin prep Papanicolaou smear with manual screeningOrdered By: Zeny Dumont on 12-18-2023 Thin prep Papanicolaou smear with manual screening 4 5-15 [facility] Absolute lymphocyte countOrd ered By: Romulo Estrella on 12-05-2023 Lymphocytes Auto (Unsp spec) [#/Vol] 2.57 10*3/uL 0.83-4.51 [facility] Automated lymphocyte count a s percentage of total leukocytesOrdered By: Romulo Estrella on 12-05-2023 Lymphocytes/100 WBC Auto (Unsp spec) 31.9 % 19-41 [facility] Basophil percentageOrdered B y: Romulo Estrella on 12-05-2023 Basophil percentage 25-50 SEEN /hpf 0-5 [facility] Basophils/100 WBC (Bld) 0.6 % 0-1 [facility] Bilirubin [Mass/Vol] 0.40 mg/dL 0.20-1.00 [facility] Comment on above: For patients on eltr ombopag therapy, use of Dimension [place] TBIL is not recommended. Chloride [Moles/Vol] 108 mmol/L 98-107 [facility] Eosinophils/100 WBC (Bld) 1.5 % 0-5 [facility] Glucose [Mass/Vol] 129 mg/dL 74-106 [facility] [place] Comment on above: Fasting Glucose resu lt greater than or equal to 126 mg/dL suggests DIABETES MELLITUS per A.D.A. criteria. Hemoglobin (Bld) [Mass/Vol] 15.2 g/dL 13.0-16.5 [facility] Monocytes/100 WBC (Bld) 7.5 % 0-10 [facility] Neutrophils (Bld) [#/Vol] 4.6 10*3/uL 2.0-7.7 [facility] Neutrophils/100 WBC (Bld) 57.5 % 47-70 [facility] Potassium [Moles/Vol] 4.3 mmol/L 3.5-5.1 [facility] Comment on above: Moderate Hemolysis, Result may be falsely increased. Protein [Mass/Vol] 8.1 g/dL 6.4-8.2 [facility] [place] Sodium [Moles/Vol] 139 mmol/L 136-145 [facility] WBC (Bld) [#/Vol] 8.1 10*3/uL 4.4-11.0 [facility] Bilirubin Test strip Ql (U)O rdered By: Romulo Estrella on 12-05-2023 Bilirubin Ql (U) Negative Negative [facility] Determination of erythrocyte mean corpuscular volume (MCV)Ordered By: Romulo Estrella on 12-05-2023 MCV (RBC) [Entitic vol] 87.3 fL 80-94 [facility] Erythrocyte distribution wid th ratioOrdered By: Romulo Estrella on 12-05-2023 Erythrocyte distribution width (RBC) [Ratio] 15.6 % 11.6-14.6 [facility] Erythrocyte distribution wid th standard deviationOrdered By: Romulo Estrella on 12-05-2023 Erythrocyte distribution width (RBC) [Entitic vol] 49.2 fL 35.1-43.9 [facility] Hematocrit Auto (Bld) [Volum e fraction]Ordered By: Romulo Estrella on 12-05-2023 Hematocrit (Bld) [Volume fraction] 47.4 % 40-54 [facility] Immature granulocytes/100 WB C Auto (Bld)Ordered By: Romulo Estrella on 12-05-2023 Immature granulocytes/100 WBC (Bld) 1.000 % 0.0-0.9 [facility] Comment on above: IG% - Immature Granu locytes (promyelocytes, myelocytes and metamyelocytes) > 1% indicates that a LEFT SHIFT is Present. Ketones Test strip Ql (U)Ord ered By: Romulo Estrella on 12-05-2023 Ketones Ql (U) Negative Negative [facility] Laboratory - Chemistry and C hemistry - challengeOrdered By: Romulo Estrella on 12-05-2023 Albumin/Globulin [Mass ratio] 0.8 {ratio} 0.9-2.4 [facility] ALP [Catalytic activity/Vol] 96 U/L 45-117 [facility] ALT [Catalytic activity/Vol] 48 U/L 16-61 [facility] CO2 [Moles/Vol] 28.0 mmol/L 21.0-32.0 [facility] Globulin (S) [Mass/Vol] 4.5 g/dL 2.2-4.2 [facility] Urea nitrogen/Creatinine [Mass ratio] 29.3 mg/mg 10-20 [facility] Laboratory - Hematology and Cell countsOrdered By: Romulo Estrella on 12-05-2023 MCH (RBC) [Entitic mass] 28.0 pg 27.0-32.0 [facility] MCHC (RBC) [Mass/Vol] 32.1 g/dL 32-36 [facility] Nucleated RBC/100 WBC (Bld) [Ratio] 0 % 0-5 [facility] Platelet mean volume (Bld) [Entitic vol] 11.1 fL 6.2-12.0 [facility] Platelets (Bld) [#/Vol] 202 10*3/uL 150-450 [facility] Mucus LM Ql (Urine sed)Order ed By: Romulo Estrella on 12-05-2023 Mucus Ql (Urine sed) 0 SEEN /hpf [facility] Nitrite Test strip Ql (U)Ord ered By: Romulo Estrella on 12-05-2023 Nitrite Ql (U) Negative Negative [facility] No Panel InformationOrdered By: Romulo Estrella on 12-05-2023 Urine RBC 0-5 SEEN /hpf 0-5 [facility] Estimated GFR (MDRD) Amer 187 mL/min >60 [facility] Comment on above: GFR Calc Estimated GFR (MDRD) Non-Af Amer 155 mL/min >60 [facility] Comment on above: Non- GFR Calc Protein Test strip Ql (U)Ord ered By: Romulo Estrella on 12-05-2023 Protein Ql (U) 30 mg/dl Negative [facility] RBC Auto (Bld) [#/Vol]Ordere d By: Romulo Estrella on 12-05-2023 RBC (Bld) [#/Vol] 5.43 10*6/uL 4.6-6.2 [facility] Serum or plasma calcium gloria urement (mass/volume)Ordered By: Romulo Estrella on 12-05-2023 Calcium [Mass/Vol] 8.9 mg/dL 8.5-10.1 [facility] [place] Serum or plasma creatinine m easurement (mass/volume)Ordered By: Romulo Estrella on 12-05-2023 Creatinine [Mass/Vol] 0.61 mg/dL 0.70-1.30 [facility] Comment on above: The validity of the calculated GFR & GFRAA in patients over 70 years has not been determined. Clinical correlation is essential. Serum or plasma urea nitroge n measurement (mass/volume)Ordered By: Romulo Estrella on 12-05-2023 Urea nitrogen [Mass/Vol] 18 mg/dL 7-18 [facility] Squamous epithelial cells de tection in urine sediment by light microscopyOrdered By: Romulo Estrella on 12-05-2023 Epithelial cells.squamous LM Ql (Urine sed) 0 SEEN /hpf 0-5 [facility] Thin prep Papanicolaou smear with manual screeningOrdered By: Romulo Estrella on 12-05-2023 Thin prep Papanicolaou smear with manual screening 3.6 g/dL 3.2-5.0 [facility] Thin prep Papanicolaou smear with manual screening 36 U/L 15-37 [facility] Comment on above: Moderate Hemolysis, Result may be falsely increased. Thin prep Papanicolaou smear with manual screening 3 5-15 [facility] Urine blood detectionOrdered By: Romulo Estrella on 12-05-2023 RBC Ql (U) 150 /ul Negative [facility] Urine clarityOrdered By: Jocelyn Estrella on 12-05-2023 Clarity (U) Sl. Cloudy Clear [facility] Urine color determinationOrd ered By: Romulo Estrella on 12-05-2023 Color (U) Yellow Yellow [facility] Urine glucose detectionOrder ed By: Romulo Estrella on 12-05-2023 Glucose Ql (U) 1000 mg/dl Normal [facility] Urine leukocyte esterase det ection by dipstickOrdered By: Romulo Estrella on 12-05-2023 Leukocyte esterase Test strip Ql (U) 500 /ul Negative [facility] Urine pHOrdered By: Romulo latif on 12-05-2023 pH (U) 5.0 [pH] 5.0 - 8.0 [facility] Urine sediment bacteria coun t by microscopy (number/high power field)Ordered By: Romulo Estrella on 12-05-2023 Bacteria LM.HPF (Urine sed) [#/Area] 1 /[HPF] None Seen [facility] Urine specific gravity measu rementOrdered By: Romulo Estrella on 12-05-2023 Specific gravity (U) [Rel density] 1.010 1.002-1.030 [facility] Urine urobilinogen measureme ntOrdered By: Romulo Estrella on 12-05-2023 Urobilinogen Ql (U) Normal mg/dl Normal [facility] CNOVon 11-19-2023 CNOV Office Visit (ORTHIN ) DONNA RODRIGES ([id number]) 1985 M Date Time Provider Department 11/19/23 [...] Review of Systems: Reviewed and charted into [employer]. Physical Exam: PE reveals a male with [...] (I hav (more content not included)... Normal [facility] XR HIP 3V PELV+ AP/LAT LTon [...] erosions. IMPRESSION: Advanced left hip degenerative change. Signals Intelligence Analyst: PSCB Transcribe Date/Time: Nov 18 2023 4:59P Dictated by : BOBBY BANUELOS MD This examination was interpreted and the report reviewed and electronically signed by: BOBBY BANUELOS MD on Nov 18 2023 5:13PM EST [id number] Normal [facility] CNOVon 10-06-2023 CNOV Office Visit (PODIWS ) DONNA RODRIGES ([id number]) 1985 M Date Time Provider Department 10/06/23 [...] Gout HTN (hypertension) Hydrocephalus with operating shunt ([facility]) Obesity hypoventilation syndrome ([facility]) Sleep apnea on BiPap Current Outpatient Medications [...] full wit (more content not included)... Normal [facility] XR FOOT 3V AP/LAT/OBL BILon 10-06-2023 [...] fifth toes. IMPRESSION: No acute osseous abnormality Signals Intelligence Analyst: EVERARDO Transcribe Date/Time: Oct 07 2023 12:11P Dictated by : ARIANNA RODRIGUEZ MD This examination was interpreted and the report reviewed and electronically signed by: ARIANNA RODRIGUEZ MD on Oct 07 2023 12:13PM EST [id number] Normal [facility] Laboratory - Drug toxicology Ordered By: Alejandro Gray on 09-10-2023 Amphetamines Ql (U) Negative <1000 ng/mL [facility] Benzodiazepines Ql (U) Negative < 200 ng/mL [facility] Cannabinoids Screen Ql (U) Negative < 50 ng/mL [facility] Cocaine Ql (U) Negative < 300 ng/mL [facility] Opiates Ql (U) Negative < 300 ng/mL [facility] No Panel InformationOrdered By: Alejandro Gray on 09-10-2023 MDMA (Ecstasy) Screen Negative < 500 ng/mL [facility] Miscellaneous Test See comment [facility] Comment on above: TEST RESULTS LIMITS Tramadol Positive [id number] Tramadol Conf, [place], [place] 1312 ng/mL [id number] TESTING PERFORMED AT [facility]. ORIGINAL REPORT ON FILE IN LAB CONTAINS ADDITIONAL TEST SITE INFORMATION. Urine Barbiturates Screen Negative < 200 ng/m L [facility] Urine Drug Screen Comment [facility] Comment on above: CONFIRMATORY TESTING FOR [...] TESTING MUST BE ORDERED SEPARATELY. USE TESTMNEMONIC: [facility] Urine Methadone Screen Negative < 300 ng/mL [facility] Urine phencyclidine (PCP) de tectionOrdered By: Alejandro rGay on 09-10-2023 Phencyclidine Ql (U) Negative < 25 ng/mL [facility] Laboratory - Drug toxicology Ordered By: Alejandro Gray on 09-03-2023 Amphetamines Ql (U) Negative <1000 ng/mL [facility] Benzodiazepines Ql (U) Negative < 200 ng/mL [facility] Cannabinoids Screen Ql (U) Negative < 50 ng/mL [facility] Cocaine Ql (U) Negative < 300 ng/mL [facility] Opiates Ql (U) Negative < 300 ng/mL [facility] No Panel InformationOrdered By: Alejandro Gray on 09-03-2023 MDMA (Ecstasy) Screen Negative < 500 ng/mL [facility] Urine Barbiturates Screen Negative < 200 ng/m L [facility] Urine Drug Screen Comment [facility] Comment on above: CONFIRMATORY TESTING FOR [...] TESTING MUST BE ORDERED SEPARATELY. USE TESTMNEMONIC: [facility] Urine Methadone Screen Negative < 300 ng/mL [facility] Urine phencyclidine (PCP) de tectionOrdered By: Alejandro Gray on 09-03-2023 Phencyclidine Ql (U) Negative < 25 ng/mL [facility] Absolute lymphocyte countOrd ered By: Dr. Guillen on 02-15-2023 Lymphocytes Auto (Unsp spec) [#/Vol] 2.26 10*3/uL 0.83-4.51 [facility] Basophil percentageOrdered B y: Dr. Guillen on 02-15-2023 Basophil percentage 0 SEEN /hpf 0-5 [facility] Lactate [Moles/Vol] 1.3 mmol/L 0.4-2.0 [facility] Basophils/100 WBC (Bld) 0.7 % 0-1 [facility] Bilirubin [Mass/Vol] 0.40 mg/dL 0.20-1.00 [facility] Comment on above: For patients on eltr ombopag therapy, use of Dimension [place] TBIL is not recommended. Chloride [Moles/Vol] 103 mmol/L 98-107 [facility] Eosinophils/100 WBC (Bld) 3.2 % 0-5 [facility] Glucose [Mass/Vol] 151 mg/dL 74-106 [facility] Comment on above: Fasting Glucose resu lt greater than or equal to 126 mg/dL suggests DIABETES MELLITUS per A.D.A. criteria. Neutrophils (Bld) [#/Vol] 5.9 10*3/uL 2.0-7.7 [facility] Neutrophils/100 WBC (Bld) 64.2 % 47-70 [facility] Potassium [Moles/Vol] 3.9 mmol/L 3.5-5.1 [facility] Protein [Mass/Vol] 7.8 g/dL 6.4-8.2 [facility] Sodium [Moles/Vol] 140 mmol/L 136-145 [facility] WBC (Bld) [#/Vol] 9.1 10*3/uL 4.4-11.0 [facility] Bilirubin Test strip Ql (U)O rdered By: Dr. Guillen on 02-15-2023 Bilirubin Ql (U) Negative Negative [facility] Blood erythrocytes count (nu mber/volume)Ordered By: Dr. Guillen on 02-15-2023 RBC (Bld) [#/Vol] 5.36 10*6/uL 4.6-6.2 [facility] Blood hemoglobin measurement (mass/volume)Ordered By: Dr. Guillen on 02-15-2023 Hemoglobin (Bld) [Mass/Vol] 15.3 g/dL 13.0-16.5 [facility] Blood lymphocytes/100 leukoc ytesOrdered By: Dr. Guillen on 02-15-2023 Lymphocytes/100 WBC (Bld) 24.8 % 19-41 [facility] Blood monocytes/100 leukocyt esOrdered By: Dr. Guillen on 02-15-2023 Monocytes/100 WBC (Bld) 6.4 % 0-10 [facility] Blood platelet mean volumeOr dered By: Dr. Guillen on 02-15-2023 Platelet mean volume (Bld) [Entitic vol] 11.1 fL 6.2-12.0 [facility] Determination of erythrocyte mean corpuscular volume (MCV)Ordered By: Dr. Guillen on 02-15-2023 MCV (RBC) [Entitic vol] 87.9 fL 80-94 [facility] Hematocrit Auto (Bld) [Volum e fraction]Ordered By: Dr. Guillen on 02-15-2023 Hematocrit (Bld) [Volume fraction] 47.1 % 40-54 [facility] Ketones Test strip Ql (U)Ord ered By: Dr. Guillen on 02-15-2023 Ketones Ql (U) Negative Negative [facility] Laboratory - Chemistry and C hemistry - challengeOrdered By: Dr. Guillen on 02-15-2023 ALP [Catalytic activity/Vol] 96 U/L 45-117 [facility] ALT [Catalytic activity/Vol] 48 U/L 16-61 [facility] CO2 [Moles/Vol] 28.0 mmol/L 21.0-32.0 [facility] Globulin (S) [Mass/Vol] 4.4 g/dL 2.2-4.2 [facility] Lipase [Catalytic activity/Vol] 26 U/L 13-75 [facility] Comment on above: Please note:LIPASE r evised reference range effective 22. New Lipase methodology. Expected to produce lower values than the previous assay method. NEW Reference Range: 13 - 75 U/L Urea nitrogen/Creatinine [Mass ratio] 21.9 mg/mg 10-20 [facility] Laboratory - Hematology and Cell countsOrdered By: Dr. Guillen on 02-15-2023 Erythrocyte distribution width (RBC) [Entitic vol] 48.9 fL 35.1-43.9 [facility] Erythrocyte distribution width (RBC) [Ratio] 15.5 % 11.6-14.6 [facility] Immature granulocytes/100 WBC (Bld) 0.700 % 0.0-0.9 [facility] Comment on above: IG% - Immature Granu locytes (promyelocytes, myelocytes and metamyelocytes) > 1% indicates that a LEFT SHIFT is Present. MCH (RBC) [Entitic mass] 28.5 pg 27.0-32.0 [facility] Nucleated RBC/100 WBC (Bld) [Ratio] 0 % 0-5 [facility] MCHC Auto (RBC) [Mass/Vol]Or dered By: Dr. Guillen on 02-15-2023 MCHC (RBC) [Mass/Vol] 32.5 g/dL 32-36 [facility] Mucus LM Ql (Urine sed)Order ed By: Dr. Guillen on 02-15-2023 Mucus Ql (Urine sed) 0 SEEN /hpf [facility] Nitrite Test strip Ql (U)Ord ered By: Dr. Guillen on 02-15-2023 Nitrite Ql (U) Negative Negative [facility] No Panel InformationOrdered By: Dr. Guillen on 02-15-2023 Estimated Creatinine Clearance Calc 114.89 ml/min [facility] Estimated GFR (MDRD) Amer 154 mL/min >60 [facility] Comment on above: GFR Calc Estimated GFR (MDRD) Non-Af Amer 127 mL/min >60 [facility] Comment on above: Non- GFR Calc Platelets bldOrdered By: Dr. Guillen on 02-15-2023 Platelets (Bld) [#/Vol] 196 10*3/uL 150-450 [facility] Protein Test strip Ql (U)Ord ered By: Dr. Guillen on 02-15-2023 Protein Ql (U) Negative Negative [facility] Serum or plasma albumin gloria urement (mass/volume)Ordered By: Dr. Guillen on 02-15-2023 Albumin [Mass/Vol] 3.4 g/dL 3.2-5.0 [facility] Serum or plasma albumin/glob ulin mass ratioOrdered By: Dr. Guillen on 02-15-2023 Albumin/Globulin [Mass ratio] 0.8 {ratio} 0.9-2.4 [facility] Serum or plasma calcium gloria urement (mass/volume)Ordered By: Dr. Guillen on 02-15-2023 Calcium [Mass/Vol] 8.8 mg/dL 8.5-10.1 [facility] Serum or plasma creatinine m easurement (mass/volume)Ordered By: Dr. Guillen on 02-15-2023 Creatinine [Mass/Vol] 0.73 mg/dL 0.70-1.30 [facility] Comment on above: The validity of the calculated GFR & GFRAA in patients over 70 years has not been determined. Clinical correlation is essential. Serum or plasma urea nitroge n measurement (mass/volume)Ordered By: Dr. Guillen on 02-15-2023 Urea nitrogen [Mass/Vol] 16 mg/dL 7-18 [facility] Squamous epithelial cells de tection in urine sediment by light microscopyOrdered By: Dr. Guillen on 02-15-2023 Epithelial cells.squamous LM Ql (Urine sed) 0 SEEN /hpf 0-5 [facility] Thin prep Papanicolaou smear with manual screeningOrdered By: Dr. Guillen on 02-15-2023 Thin prep Papanicolaou smear with manual screening 24 U/L 15-37 [facility] Thin prep Papanicolaou smear with manual screening 9 5-15 [facility] Urine blood detectionOrdered By: Dr. Guillen on 02-15-2023 RBC Ql (U) Negative Negative [facility] RBC Ql (U) 0 SEEN /hpf 0-5 [facility] Urine clarityOrdered By: Dr. Guillen on 02-15-2023 Clarity (U) Clear Clear [facility] Urine color determinationOrd ered By: Dr. Guillen on 02-15-2023 Color (U) Yellow Yellow [facility] Urine glucose detectionOrder ed By: Dr. Guillen on 02-15-2023 Glucose Ql (U) 1000 mg/dl Normal [facility] Urine leukocyte esterase det ection by dipstickOrdered By: Dr. Guillen on 02-15-2023 Leukocyte esterase Test strip Ql (U) Negative Negative [facility] Urine pHOrdered By: Dr. Kai conklin on 02-15-2023 pH (U) 8.0 [pH] 5.0 - 8.0 [facility] Urine sediment bacteria coun t by microscopy (number/high power field)Ordered By: Dr. Guillen on 02-15-2023 Bacteria LM.HPF (Urine sed) [#/Area] 0 /[HPF] None Seen [facility] Urine specific gravity measu rementOrdered By: Dr. Guillen on 02-15-2023 Specific gravity (U) [Rel density] 1.015 1.002-1.030 [facility] Urobilinogen Auto test strip Ql (U)Ordered By: Dr. Guillen on 02-15-2023 Urobilinogen Ql (U) Normal mg/dl Normal [facility] Basophil percentageOrdered B y: Dr. Roman on 01-30-2023 Bilirubin [Mass/Vol] 0.40 mg/dL 0.20-1.00 [facility] Comment on above: For patients on eltr ombopag therapy, use of Dimension [place] TBIL is not recommended. Chloride [Moles/Vol] 104 mmol/L 98-107 [facility] Cholesterol [Mass/Vol] 180 mg/dL <200 [facility] Comment on above: <200 mg/dL Desirable 200-240 mg/dL Borderline >240 mg/dL High Risk Glucose [Mass/Vol] 177 mg/dL 74-106 [facility] Comment on above: Fasting Glucose resu lt greater than or equal to 126 mg/dL suggests DIABETES MELLITUS per A.D.A. criteria. Potassium [Moles/Vol] 4.0 mmol/L 3.5-5.1 [facility] Protein [Mass/Vol] 7.4 g/dL 6.4-8.2 [facility] Sodium [Moles/Vol] 138 mmol/L 136-145 [facility] Triglyceride [Mass/Vol] 304 mg/dL <199 [facility] Comment on above: The drugs N-Acetylcy steine and Metamizole may falsely depress this assay.Serum Triglycerides Reference Interval Normal <150 mg/dL Borderline high 150 - 199 mg/dL High 200 - 499 mg/dL Very High > or = 500 mg/dL Laboratory - Chemistry and C hemistry - challengeOrdered By: Dr. Roman on 01-30-2023 ALP [Catalytic activity/Vol] 86 U/L 45-117 [facility] ALT [Catalytic activity/Vol] 42 U/L 16-61 [facility] CO2 [Moles/Vol] 26.0 mmol/L 21.0-32.0 [facility] Globulin (S) [Mass/Vol] 4.2 g/dL 2.2-4.2 [facility] Urea nitrogen/Creatinine [Mass ratio] 21.0 mg/mg 10-20 [facility] No Panel InformationOrdered By: Dr. Roman on 01-30-2023 Estimated GFR (MDRD) Amer 171 mL/min >60 [facility] Comment on above: GFR Calc Estimated GFR (MDRD) Non-Af Amer 142 mL/min >60 [facility] Comment on above: Non- GFR Calc Serum or plasma albumin gloria urement (mass/volume)Ordered By: Dr. Roman on 01-30-2023 Albumin [Mass/Vol] 3.2 g/dL 3.2-5.0 [facility] Serum or plasma albumin/glob ulin mass ratioOrdered By: Dr. Roman on 01-30-2023 Albumin/Globulin [Mass ratio] 0.8 {ratio} 0.9-2.4 [facility] Serum or plasma calcium gloria urement (mass/volume)Ordered By: Dr. Roman on 01-30-2023 Calcium [Mass/Vol] 8.5 mg/dL 8.5-10.1 [facility] Serum or plasma cholesterol in HDL measurement (mass/volume)Ordered By: Dr. Roman on 01-30-2023 Cholesterol in HDL [Mass/Vol] 37 mg/dL >40 [facility] Comment on above: The drugs N-Acetylcy steine and Metamizole may falsely depress this assay. Reference Range HDL <40 mg/dL Low HDL Cholesterol HDL >or= 60 mg/dL High HDL Cholesterol Serum or plasma cholesterol in VLDL measurement (mass/volume)Ordered By: Dr. Roman on 01-30-2023 Cholesterol in VLDL [Mass/Vol] 61 mg/dL 5-40 [facility] Serum or plasma creatinine m easurement (mass/volume)Ordered By: Dr. Roman on 01-30-2023 Creatinine [Mass/Vol] 0.67 mg/dL 0.70-1.30 [facility] Comment on above: The validity of the calculated GFR & GFRAA in patients over 70 years has not been determined. Clinical correlation is essential. Serum or plasma low density lipoprotein (LDL) cholesterol measurement (mass/volume)Ordered By: Dr. Roman on 01-30-2023 Cholesterol in LDL [Mass/Vol] 82 mg/dL 0-130 [facility] Serum or plasma urea nitroge n measurement (mass/volume)Ordered By: Dr. Roman on 01-30-2023 Urea nitrogen [Mass/Vol] 14 mg/dL 7-18 [facility] Thin prep Papanicolaou smear with manual screeningOrdered By: Dr. Roman on 01-30-2023 Thin prep Papanicolaou smear with manual screening 28 U/L 15-37 [facility] Thin prep Papanicolaou smear with manual screening 8 5-15 [facility] Absolute lymphocyte counton 02-14-2022 Lymphocytes Auto (Unsp spec) [#/Vol] 0.88 10*3/uL 0.83-4.51 [facility] Work Phone: Basophil percentageon 2021 Lactate [Moles/Vol] 1.7 mmol/L 0.4-2.0 [facility] Work Phone: Bilirubin [Mass/Vol] 0.50 mg/dL 0.20-1.00 [facility] Work Phone: Comment on above: For patients on eltr ombopag therapy, use of Dimension [place] TBIL is not recommended. Chloride [Moles/Vol] 105 mmol/L 98-107 [facility] Work Phone: Glucose [Mass/Vol] 198 mg/dL 74-106 [facility] [place] Work Phone: Comment on above: Fasting Glucose resu lt greater than or equal to 126 mg/dL suggests DIABETES MELLITUS per A.D.A. criteria. Potassium [Moles/Vol] 3.8 mmol/L 3.5-5.1 [facility] Work Phone: Protein [Mass/Vol] 8.0 g/dL 6.4-8.2 [facility] [place] Work Phone: Sodium [Moles/Vol] 139 mmol/L 136-145 [facility] [place] Work Phone: Basophil percentage 0 SEEN /hpf 0-5 [facility] Work Phone: [phone] Basophils/100 WBC (Bld) 0.4 % 0-1 [facility] Work Phone: Eosinophils/100 WBC (Bld) 1.2 % 0-5 [facility] Work Phone: [phone] Neutrophils (Bld) [#/Vol] 9.8 10*3/uL 2.0-7.7 [facility] Work Phone: Neutrophils/100 WBC (Bld) 85.1 % 47-70 [facility] Work Phone: [phone] WBC (Bld) [#/Vol] 11.6 10*3/uL 4.4-11.0 [facility] Work Phone: Bilirubin Test strip Ql (U)o n 02-14-2022 Bilirubin Ql (U) Negative Negative [facility] Work Phone: Blood erythrocytes count (nu mber/volume)on 02-14-2022 RBC (Bld) [#/Vol] 5.04 10*6/uL 4.6-6.2 [facility] Work Phone: Blood hemoglobin measurement (mass/volume)on 02-14-2022 Hemoglobin (Bld) [Mass/Vol] 14.8 g/dL 13.0-16.5 [facility] Work Phone: Blood lymphocytes/100 leukoc yteson 02-14-2022 Lymphocytes/100 WBC (Bld) 7.6 % 19-41 [facility] Work Phone: [phone] Blood monocytes/100 leukocyt eson 02-14-2022 Monocytes/100 WBC (Bld) 4.8 % 0-10 [facility] Work Phone: Blood platelet mean volumeon 02-14-2022 Platelet mean volume (Bld) [Entitic vol] 11.0 fL 6.2-12.0 [facility] Work Phone: Determination of erythrocyte mean corpuscular volume (MCV)on 02-14-2022 MCV (RBC) [Entitic vol] 90.5 fL 80-94 [facility] Work Phone: Hematocrit Auto (Bld) [Volum e fraction]on 02-14-2022 Hematocrit (Bld) [Volume fraction] 45.6 % 40-54 [facility] Work Phone: INR in Blood by Coagulation assayon 02-14-2022 INR Coag (Bld) [Relative time] 1.0 {INR} [facility] Work Phone: Ketones Test strip Ql (U)on 02-14-2022 Ketones Ql (U) Negative Negative [facility] Work Phone: Laboratory - Chemistry and C hemistry - challengeon 02-14-2022 ALP [Catalytic activity/Vol] 96 U/L 45-117 [facility] Work Phone: ALT [Catalytic activity/Vol] 42 U/L 16-61 [facility] Work Phone: CO2 [Moles/Vol] 27.0 mmol/L 21.0-32.0 [facility] Work Phone: Globulin (S) [Mass/Vol] 4.5 g/dL 2.2-4.2 [facility] Work Phone: Urea nitrogen/Creatinine [Mass ratio] 17.0 mg/mg 10-20 [facility] Work Phone: Laboratory - Coagulationon 0 02-14-2022 aPTT Coag (Bld) [Time] 27.7 s 24.1-36.2 [facility] Work Phone: PT Coag (PPP) [Time] 13.3 s 11.7-14.[address] [facility] Work Phone: Laboratory - Hematology and Cell countson 02-14-2022 Erythrocyte distribution width (RBC) [Entitic vol] 49.9 fL 35.1-43.9 oste [facility] Work Phone: Erythrocyte distribution width (RBC) [Ratio] 15.2 % 11.6-14.6 [facility] Work Phone: Immature granulocytes/100 WBC (Bld) 0.900 % 0.0-0.9 [facility] Work Phone: Comment on above: IG% - Immature Granu locytes (promyelocytes, myelocytes and metamyelocytes) > 1% indicates that a LEFT SHIFT is Present. MCH (RBC) [Entitic mass] 29.4 pg 27.0-32.0 [facility] Work Phone: Nucleated RBC/100 WBC (Bld) [Ratio] 0 % 0-5 [facility] Work Phone: MCHC Auto (RBC) [Mass/Vol]on 02-14-2022 MCHC (RBC) [Mass/Vol] 32.5 g/dL 32-36 [facility] Work Phone: Mucus LM Ql (Urine sed)on Mucus Ql (Urine sed) 0 SEEN /hpf [facility] Work Phone: Nitrite Test strip Ql (U)on 02-14-2022 Nitrite Ql (U) Negative Negative [facility] Work Phone: No Panel Informationon 02-14 Estimated Creatinine Clearance Calc 103.28 ml/min [facility] Work Phone: Estimated GFR (MDRD) Amer 134 mL/min >60 [facility] Work Phone: Comment on above: GFR Calc Estimated GFR (MDRD) Non-Af Amer 111 mL/min >60 [facility] Work Phone: Comment on above: Non- GFR Calc Platelets bldon 02-14-2022 Platelets (Bld) [#/Vol] 200 10*3/uL 150-450 [facility] Work Phone: Protein Test strip Ql (U)on 02-14-2022 Protein Ql (U) 15 mg/dl Negative [facility] Work Phone: Serum or plasma albumin gloria urement (mass/volume)on 02-14-2022 Albumin [Mass/Vol] 3.5 g/dL 3.2-5.0 [facility] Work Phone: Serum or plasma albumin/glob ulin mass ratioon 02-14-2022 Albumin/Globulin [Mass ratio] 0.8 {ratio} 0.9-2.4 [facility] Work Phone: Serum or plasma calcium gloria urement (mass/volume)on 02-14-2022 Calcium [Mass/Vol] 8.8 mg/dL 8.5-10.1 [facility] [place] Work Phone: Serum or plasma creatinine m easurement (mass/volume)on 02-14-2022 Creatinine [Mass/Vol] 0.82 mg/dL 0.70-1.30 [facility] Work Phone: Comment on above: The validity of the calculated GFR & GFRAA in patients over 70 years has not been determined. Clinical correlation is essential. Serum or plasma urea nitroge n measurement (mass/volume)on 02-14-2022 Urea nitrogen [Mass/Vol] 14 mg/dL 7-18 [facility] Work Phone: Squamous epithelial cells de tection in urine sediment by light microscopyon 02-14-2022 Epithelial cells.squamous LM Ql (Urine sed) 0 SEEN /hpf 0-5 [facility] Work Phone: Thin prep Papanicolaou smear with manual screeningon 02-14-2022 Thin prep Papanicolaou smear with manual screening 26 U/L 15-37 [facility] Work Phone: Thin prep Papanicolaou smear with manual screening 7 5-15 [facility] Work Phone: Urine blood detectionon 01-23 RBC Ql (U) Negative Negative [facility] Work Phone: RBC Ql (U) 0 SEEN /hpf 0-5 [facility] Work Phone: Urine clarityon 02-14-2022 Clarity (U) Clear Clear [facility] Work Phone: Urine color determinationon 02-14-2022 Color (U) Yellow Yellow [facility] Work Phone: Urine glucose detectionon Glucose Ql (U) 100 mg/dl Normal [facility] Work Phone: Urine leukocyte esterase det ection by dipstickon 02-14-2022 Leukocyte esterase Test strip Ql (U) Negative Negative [facility] Work Phone: Urine pHon 02-14-2022 pH (U) 6.0 [pH] 5.0 - 8.0 [facility] Work Phone: Urine sediment bacteria coun t by microscopy (number/high power field)on 02-14-2022 Bacteria LM.HPF (Urine sed) [#/Area] 0 /[HPF] None Seen [facility] Work Phone: Urine specific gravity measu rementon 02-14-2022 Specific gravity (U) [Rel density] 1.010 1.002-1.030 [facility] Work Phone: Urobilinogen Auto test strip Ql (U)on 02-14-2022 Urobilinogen Ql (U) Normal mg/dl Normal [facility] Work Phone: Culture, urine Bacteria identified Cx Nom (U) Proteus mirabilis [facility] Work Phone: Laboratory - Microbiology an d Antimicrobial susceptibility Bacteria identified Cx Nom (Bld) No growth in 5 days. [facility] Work Phone: No Panel Information SARS-CoV-2 & FLU Antigen (Rapid) [facility] Work Phone: Vital Signs Date Time Vital Sign Value Performing Clinician Facility 06-16-2025 13:15-0400 Body temperature 98 [degF] Dr. Aliza Roman MD Work Phone: [facility] 06-16-2025 13:15-0400 Diastolic blood pressure 93 mm[Hg] Dr. Aliza Roman MD Work Phone: [facility] 06-16-2025 13:15-0400 Heart rate 72 /min Dr. Aliza Roman MD Work Phone: [facility] 06-16-2025 13:15-0400 Respiratory rate 18 /min Dr. Aliza Roman MD Work Phone: [facility] 06-16-2025 13:15-0400 SaO2% (BldA) [Mass fraction] 92 % Dr. Aliza Roman MD Work Phone: [facility] 06-16-2025 13:15-0400 Systolic blood pressure 140 mm[Hg] Dr. Aliza Roman MD Work Phone: [facility] 06-16-2025 07:20-0400 Inhaled oxygen flow rate 2 L/min Dr. Aliza Roman MD Work Phone: [facility] 06-16-2025 06:00-0400 Body mass index (BMI) [Ratio] 59.4 kg/m2 Dr. Aliza Roman MD Work Phone: [facility] 06-16-2025 06:00-0400 Body weight [address] Aliza Roman MD Work Phone: [facility] 06-15-2025 22:28-0400 Body height 162.[address] Aliza Roman MD Work Phone: [facility] 06-12-2025 09:09-0400 Body temperature 98.3 [degF] Dr. Aliza Roman MD Work Phone: [facility] 06-12-2025 09:09-0400 Diastolic blood pressure 93 mm[Hg] Dr. Aliza Roman MD Work Phone: [facility] 06-12-2025 09:09-0400 Heart rate 80 /min Dr. Aliza Roman MD Work Phone: [facility] 06-12-2025 09:09-0400 Respiratory rate 16 /min Dr. Aliza Roman MD Work Phone: [facility] 06-12-2025 09:09-0400 SaO2% (BldA) [Mass fraction] 92 % Dr. Aliza Roman MD Work Phone: [facility] 06-12-2025 09:09-0400 Systolic blood pressure 132 mm[Hg] Dr. Aliza Roman MD Work Phone: [facility] 06-12-2025 07:13-0400 Body mass index (BMI) [Ratio] 60.9 kg/m2 Dr. Aliza Roman MD Work Phone: [facility] 06-12-2025 07:13-0400 Body weight [address] Aliza Roman MD Work Phone: [facility] 05-29-2025 12:01-0400 Body height 162.56 cm Flaco Guadalupe MD [facility] 05-29-2025 12:01-0400 Body mass index (BMI) [Ratio] 58.18 kg/m2 Flaco Guadalupe MD [facility] 05-29-2025 12:01-0400 Body weight 153.77 kg Flaco Guadalupe MD [facility] 04-23-2025 18:45-0400 Body temperature 97.6 [degF] Dr. Aliza Roman MD Work Phone: [facility] 04-23-2025 18:45-0400 Diastolic blood pressure 82 mm[Hg] Dr. Aliza Roman MD Work Phone: [facility] 04-23-2025 18:45-0400 Heart rate 87 /min Dr. Aliza Roman MD Work Phone: [facility] 04-23-2025 18:45-0400 Respiratory rate 15 /min Dr. Aliza Roman MD Work Phone: [facility] 04-23-2025 18:45-0400 SaO2% (BldA) [Mass fraction] 99 % Dr. Aliza Roman MD Work Phone: [facility] 04-23-2025 18:45-0400 Systolic blood pressure 124 mm[Hg] Dr. Aliza Roman MD Work Phone: [facility] 04-23-2025 16:30-0400 Body height 162.[address] Aliza Roman MD Work Phone: [facility] 04-23-2025 16:30-0400 Body mass index (BMI) [Ratio] 59.4 kg/m2 Dr. Aliza Roman MD Work Phone: [phone] [place] [address] 04-23-2025 16:30-0400 Body weight 157.[address] Aliza Roman MD Work Phone: [facility] 02-06-2025 13:03-0400 Body height 162.[address] Aliza Roman MD Work Phone: 2(601)[phone] [place] [address] 02-06-2025 13:03-0400 Body mass index (BMI) [Ratio] 61.1 kg/m2 Dr. Aliza Roman MD Work Phone: [facility] 02-06-2025 13:03-0400 Body weight 161.[address] Aliza Roman MD Work Phone: [facility] 02-06-2025 13:03-0400 Diastolic blood pressure 85 mm[Hg] Dr. Aliza Roman MD Work Phone: [facility] 02-06-2025 13:03-0400 Heart rate 85 /min Dr. Aliza Roman MD Work Phone: [facility] 02-06-2025 13:03-0400 SaO2% (BldA) [Mass fraction] 93 % Dr. Aliza Roman MD Work Phone: [facility] 02-06-2025 13:03-0400 Systolic blood pressure 140 mm[Hg] Dr. Aliza Roman MD Work Phone: [facility] 01-23-2025 08:20-0400 Body mass index (BMI) [Ratio] 60.4 kg/m2 Dr. Aliza Roman MD Work Phone: [facility] 01-23-2025 08:20-0400 Body temperature 97.8 [degF] Dr. Aliza Roman MD Work Phone: [facility] 01-23-2025 08:20-0400 Body weight 159.[address] Aliza Roman MD Work Phone: [facility] 01-23-2025 08:20-0400 Diastolic blood pressure 70 mm[Hg] Dr. Aliza Roman MD Work Phone: [facility] 01-23-2025 08:20-0400 Heart rate 84 /min Dr. Aliza Roman MD Work Phone: [facility] 01-23-2025 08:20-0400 Inhaled oxygen flow rate 2 L/min Dr. Aliza Roman MD Work Phone: [facility] 01-23-2025 08:20-0400 Respiratory rate 22 /min Dr. Aliza Roman MD Work Phone: [facility] 01-23-2025 08:20-0400 SaO2% (BldA) [Mass fraction] 95 % Dr. Aliza Roman MD Work Phone: [facility] 01-23-2025 08:20-0400 Systolic blood pressure 118 mm[Hg] Dr. Aliza Roman MD Work Phone: [facility] 01-09-2025 09:00-0400 Body temperature 98 [degF] Dr. Aliza Roman MD Work Phone: [facility] 01-09-2025 09:00-0400 Diastolic blood pressure 87 mm[Hg] Dr. Aliza Roman MD Work Phone: [facility] 01-09-2025 09:00-0400 Heart rate 85 /min Dr. Aliza Roman MD Work Phone: [facility] 01-09-2025 09:00-0400 Respiratory rate 16 /min Dr. Aliza Roman MD Work Phone: [facility] 01-09-2025 09:00-0400 SaO2% (BldA) [Mass fraction] 98 % Dr. Aliza Roman MD Work Phone: [facility] 01-09-2025 09:00-0400 Systolic blood pressure 154 mm[Hg] Dr. Aliza Roman MD Work Phone: [facility] 01-09-2025 08:35-0400 Body temperature 98 [degF] Dr. Aliza Roman MD Work Phone: [facility] 01-09-2025 08:35-0400 Diastolic blood pressure 87 mm[Hg] Dr. Aliza Roman MD Work Phone: [facility] 01-09-2025 08:35-0400 Heart rate 85 /min Dr. Aliza Roman MD Work Phone: [facility] 01-09-2025 08:35-0400 Respiratory rate 16 /min Dr. Aliza Roman MD Work Phone: [facility] 01-09-2025 08:35-0400 SaO2% (BldA) [Mass fraction] 96 % Dr. Aliza Roman MD Work Phone: [facility] 01-09-2025 08:35-0400 Systolic blood pressure 154 mm[Hg] Dr. Aliza Roman MD Work Phone: [facility] 01-09-2025 06:48-0400 Body height 162.[address] Aliza Roman MD Work Phone: [facility] 01-09-2025 06:48-0400 Body mass index (BMI) [Ratio] 60.1 kg/m2 Dr. Aliza Roman MD Work Phone: [facility] 01-09-2025 06:48-0400 Body weight [address] Aliza Roman MD Work Phone: [facility] 12-19-2024 13:26-0400 Body mass index (BMI) [Ratio] 59.7 kg/m2 Dr. Aliza Roman MD Work Phone: [facility] 12-19-2024 13:26-0400 Body weight 157.[address] Aliza Roman MD Work Phone: [facility] 12-19-2024 13:26-0400 Diastolic blood pressure 82 mm[Hg] Dr. Aliza Roman MD Work Phone: [facility] 12-19-2024 13:26-0400 Heart rate 81 /min Dr. Aliza Roman MD Work Phone: [facility] 12-19-2024 13:26-0400 SaO2% (BldA) [Mass fraction] 93 % Dr. Aliza Roman MD Work Phone: [facility] 12-19-2024 13:26-0400 Systolic blood pressure 141 mm[Hg] Dr. Aliza Roman MD Work Phone: [facility] 11-27-2024 13:21-0400 Body temperature 98.4 [degF] Dr. Aliza Roman MD Work Phone: [facility] 11-27-2024 13:21-0400 Diastolic blood pressure 69 mm[Hg] Dr. Aliza Romna MD Work Phone: [facility] 11-27-2024 13:21-0400 Heart rate 81 /min Dr. Aliza Roman MD Work Phone: [facility] 11-27-2024 13:21-0400 Respiratory rate 16 /min Dr. Aliza Roman MD Work Phone: [facility] 11-27-2024 13:21-0400 SaO2% (BldA) [Mass fraction] 94 % Dr. Aliza Roman MD Work Phone: [facility] 11-27-2024 13:21-0400 Systolic blood pressure 131 mm[Hg] Dr. Aliza Roman MD Work Phone: [facility] 11-27-2024 11:01-0400 Body height 162.[address] Aliza Roman MD Work Phone: [facility] 11-27-2024 11:01-0400 Body mass index (BMI) [Ratio] 60.9 kg/m2 Dr. Aliza Roman MD Work Phone: [facility] 11-27-2024 11:01-0400 Body weight [address] Aliza Roman MD Work Phone: [facility] 10-28-2024 12:49-0500 Body height 162.[address] Aliza Roman MD Work Phone: [facility] 10-28-2024 12:49-0500 Body temperature 98.1 [degF] Dr. Aliza Roman MD Work Phone: [facility] 10-28-2024 12:49-0500 Diastolic blood pressure 102 mm[Hg] Dr. Aliza Roman MD Work Phone: [facility] 10-28-2024 12:49-0500 Heart rate 105 /min Dr. Aliza Roman MD Work Phone: [facility] 10-28-2024 12:49-0500 Respiratory rate 16 /min Dr. Aliza Roman MD Work Phone: [facility] 10-28-2024 12:49-0500 SaO2% (BldA) [Mass fraction] 94 % Dr. Aliza Roman MD Work Phone: [facility] 10-28-2024 12:49-0500 Systolic blood pressure 153 mm[Hg] Dr. Aliza Roman MD Work Phone: [facility] 08-29-2024 13:50-0500 Diastolic blood pressure 105 mm[Hg] Dr. Aliza Roman MD Work Phone: [facility] 08-29-2024 13:50-0500 Systolic blood pressure 167 mm[Hg] Dr. Aliza Roman MD Work Phone: 7(335)[phone] [place] [address] 08-29-2024 11:34-0500 Body temperature 98.1 [degF] Dr. Aliza Roman MD Work Phone: [facility] 08-29-2024 11:34-0500 Heart rate 96 /min Dr. Aliza Roman MD Work Phone: [facility] 08-29-2024 11:34-0500 Respiratory rate 16 /min Dr. Aliza Roman MD Work Phone: [facility] 08-29-2024 11:34-0500 SaO2% (BldA) [Mass fraction] 96 % Dr. Aliza Roman MD Work Phone: [facility] 08-29-2024 10:14-0500 Body mass index (BMI) [Ratio] 57.6 kg/m2 Dr. Aliza Roman MD Work Phone: [facility] 08-29-2024 10:14-0500 Body weight 152.[address] Aliza Roman MD Work Phone: [facility] 12-23-2023 22:37-0400 Body temperature 98.5 [degF] Dr. Aliza Roman Work Phone: [facility] 12-23-2023 22:37-0400 Diastolic blood pressure 76 mm[Hg] Dr. Aliza Roman Work Phone: [facility] 12-23-2023 22:37-0400 Heart rate 76 /min Dr. Aliza Roman Work Phone: [facility] 12-23-2023 22:37-0400 Respiratory rate 18 /min Dr. Aliza Roman Work Phone: [facility] 12-23-2023 22:37-0400 SaO2% (BldA) [Mass fraction] 94 % Dr. Aliza Roman Work Phone: [facility] 12-23-2023 22:37-0400 Systolic blood pressure 126 mm[Hg] Dr. Aliza Roman Work Phone: [facility] 12-23-2023 19:06-0400 Body mass index (BMI) [Ratio] 60 kg/m2 Dr. Aliza Roman Work Phone: [facility] 12-23-2023 19:06-0400 Body weight 158.[address] Aliza Roman Work Phone: [facility] 12-23-2023 17:08-0400 Body height 162.[address] Aliza Roman Work Phone: [facility] 12-19-2023 00:54-0400 Diastolic blood pressure 96 mm[Hg] Dr. Aliza Roman Work Phone: [facility] 12-19-2023 00:54-0400 Heart rate 99 /min Dr. Aliza Roman Work Phone: [facility] 12-19-2023 00:54-0400 Respiratory rate 20 /min Dr. Aliza Roman Work Phone: [facility] 12-19-2023 00:54-0400 SaO2% (BldA) [Mass fraction] 91 % Dr. Aliza Roman Work Phone: [facility] 12-19-2023 00:54-0400 Systolic blood pressure 128 mm[Hg] Dr. Aliza Roman Work Phone: [facility] 12-18-2023 22:28-0400 Body height 162.[address] Aliza Roman Work Phone: [facility] 12-18-2023 22:28-0400 Body mass index (BMI) [Ratio] 58.1 kg/m2 Dr. Aliza Roman Work Phone: [facility] 12-18-2023 22:28-0400 Body temperature 98.4 [degF] Dr. Aliza Roman Work Phone: [facility] 12-18-2023 22:28-0400 Body weight 153.[address] Aliza Roman Work Phone: [facility] 12-05-2023 14:42-0400 Body temperature 97.9 [degF] Dr. lAiza Roman Work Phone: [facility] 12-05-2023 14:42-0400 Diastolic blood pressure 84 mm[Hg] Dr. Aliza Roman Work Phone: [facility] 12-05-2023 14:42-0400 Heart rate 86 /min Dr. Aliza Roman Work Phone: [facility] 12-05-2023 14:42-0400 Respiratory rate 20 /min Dr. Aliza Roman Work Phone: [facility] 12-05-2023 14:42-0400 SaO2% (BldA) [Mass fraction] 95 % Dr. Aliza Roman Work Phone: [facility] 12-05-2023 14:42-0400 Systolic blood pressure 162 mm[Hg] Dr. Aliza Roman Work Phone: [facility] 12-05-2023 11:03-0400 Body height 162.[address] Aliza Roman Work Phone: [facility] 11-23-2023 08:19-0400 Body mass index (BMI) [Ratio] 56.9 kg/m2 Dr. Aliza Roman Work Phone: [facility] 11-23-2023 08:19-0400 Body temperature 97.5 [degF] Dr. Aliza Roman Work Phone: [facility] 11-23-2023 08:19-0400 Body weight 150.[address] Aliza Roman Work Phone: [facility] 11-23-2023 08:19-0400 Diastolic blood pressure 83 mm[Hg] Dr. Aliza Roman Work Phone: [facility] 11-23-2023 08:19-0400 Heart rate 96 /min Dr. Aliza Roman Work Phone: [facility] 11-23-2023 08:19-0400 Inhaled oxygen flow rate 2 L/min Dr. Aliza Roman Work Phone: [facility] 11-23-2023 08:19-0400 Respiratory rate 20 /min Dr. Aliza Roman Work Phone: [facility] 11-23-2023 08:19-0400 SaO2% (BldA) [Mass fraction] 94 % Dr. Aliza Roman Work Phone: [facility] 11-23-2023 08:19-0400 Systolic blood pressure 131 mm[Hg] Dr. Aliza Roman Work Phone: [facility] 08-31-2023 10:46-0500 Body height 162.[address] Aliza Roman Work Phone: [facility] 08-31-2023 10:46-0500 Body mass index (BMI) [Ratio] 58.7 kg/m2 Dr. Aliza Roman Work Phone: [facility] 08-31-2023 10:46-0500 Body weight 155.[address] Aliza Roman Work Phone: [facility] 07-23-2023 06:22-0500 Body mass index (BMI) [Ratio] 57.3 kg/m2 Dr. Aliza Roman Work Phone: [facility] 07-23-2023 06:22-0500 Body temperature 97.3 [degF] Dr. Aliza Roman Work Phone: [facility] 07-23-2023 06:22-0500 Body weight 151.[address] Aliza Roman Work Phone: [facility] 07-23-2023 06:22-0500 Diastolic blood pressure 82 mm[Hg] Dr. Aliza Roman Work Phone: [facility] 07-23-2023 06:22-0500 Heart rate 105 /min Dr. Aliza Roman Work Phone: [facility] 07-23-2023 06:22-0500 Respiratory rate 18 /min Dr. Aliza Roman Work Phone: [facility] 07-23-2023 06:22-0500 SaO2% (BldA) [Mass fraction] 93 % Dr. Aliza Roman Work Phone: [facility] 07-23-2023 06:22-0500 Systolic blood pressure 130 mm[Hg] Dr. Aliza Roman Work Phone: [facility] 02-15-2023 10:05-0400 Body height 162.[address] Aliza Roman Work Phone: [facility] 02-15-2023 10:05-0400 Body mass index (BMI) [Ratio] 57.4 kg/m2 Dr. Aliza Roman Work Phone: [facility] 02-15-2023 10:05-0400 Body temperature 97.9 [degF] Dr. Aliza Roman Work Phone: [facility] 02-15-2023 10:05-0400 Body weight 151.[address] Aliza Roman Work Phone: [facility] 02-15-2023 10:05-0400 Diastolic blood pressure 95 mm[Hg] Dr. Aliza Roman Work Phone: [facility] 02-15-2023 10:05-0400 Heart rate 96 /min Dr. Aliza Roman Work Phone: [facility] 02-15-2023 10:05-0400 Respiratory rate 16 /min Dr. Aliza Roman Work Phone: [facility] 02-15-2023 10:05-0400 SaO2% (BldA) [Mass fraction] 94 % Dr. Aliza Roman Work Phone: [facility] 02-15-2023 10:05-0400 Systolic blood pressure 135 mm[Hg] Dr. Aliza Roman Work Phone: [facility] 01-13-2023 13:03-0400 Body height 162.[address] Aliza Roman Work Phone: [facility] 01-13-2023 13:03-0400 Body temperature 98 [degF] Dr. Aliza Roman Work Phone: [facility] 01-13-2023 13:03-0400 Diastolic blood pressure 95 mm[Hg] Dr. Aliza Roman Work Phone: [facility] 01-13-2023 13:03-0400 Heart rate 100 /min Dr. Aliza Roman Work Phone: [facility] 01-13-2023 13:03-0400 Respiratory rate 16 /min Dr. Aliza Roman Work Phone: [facility] 01-13-2023 13:03-0400 SaO2% (BldA) [Mass fraction] 96 % Dr. Aliza Roman Work Phone: [facility] 01-13-2023 13:03-0400 Systolic blood pressure 152 mm[Hg] Dr. Aliza Roman Work Phone: [facility] 01-05-2023 07:46-0400 Body mass index (BMI) [Ratio] 56.8 kg/m2 Dr. Aliza Roman Work Phone: [facility] 01-05-2023 07:46-0400 Body temperature 97.6 [degF] Dr. Aliza Roman Work Phone: [facility] 01-05-2023 07:46-0400 Body weight 150.[address] Aliza Roman Work Phone: [facility] 01-05-2023 07:46-0400 Diastolic blood pressure 84 mm[Hg] Dr. Aliza Roman Work Phone: [facility] 01-05-2023 07:46-0400 Heart rate 106 /min Dr. Aliza Roman Work Phone: [facility] 01-05-2023 07:46-0400 Inhaled oxygen flow rate 2 L/min Dr. Aliza Roman Work Phone: [facility] 01-05-2023 07:46-0400 Respiratory rate 18 /min Dr. Aliza Roman Work Phone: [facility] 01-05-2023 07:46-0400 SaO2% (BldA) [Mass fraction] 94 % Dr. Aliza Roman Work Phone: [facility] 01-05-2023 07:46-0400 Systolic blood pressure 142 mm[Hg] Dr. Aliza Roman Work Phone: [facility] 05-02-2022 21:59-0400 Diastolic blood pressure 84 mm[Hg] Dr. Aliza Roman Work Phone: [facility] Work Phone: 05-02-2022 21:59-0400 Heart rate 88 /min Dr. Aliza Roman Work Phone: [facility] Work Phone: 05-02-2022 21:59-0400 Respiratory rate 49 /min Dr. Aliza Roamn Work Phone: [facility] Work Phone: 05-02-2022 21:59-0400 SaO2% (BldA) [Mass fraction] 98 % Dr. Aliza Roman Work Phone: [facility] Work Phone: 05-02-2022 21:59-0400 Systolic blood pressure 142 mm[Hg] Dr. Aliza Roman Work Phone: [facility] Work Phone: 05-02-2022 21:07-0400 Body temperature 97.7 [degF] Dr. Aliza Roman Work Phone: [facility] Work Phone: 05-02-2022 21:05-0400 Body height 162.[address] Aliza Roman Work Phone: [facility] Work Phone: 05-02-2022 21:05-0400 Body mass index (BMI) [Ratio] 60.5 kg/m2 Dr. Aliza Roman Work Phone: [facility] Work Phone: 05-02-2022 21:05-0400 Body weight 159.[address] Aliza Roman Work Phone: [facility] Work Phone: 02-27-2022 07:56-0400 Body mass index (BMI) [Ratio] 59.5 kg/m2 Dr. Aliza Roman Work Phone: [facility] Work Phone: 02-27-2022 07:56-0400 Body temperature 98.7 [degF] Dr. Aliza Roman Work Phone: [facility] Work Phone: 02-27-2022 07:56-0400 Body weight 157.[address] Aliza Roman Work Phone: [facility] Work Phone: 02-27-2022 07:56-0400 Diastolic blood pressure 81 mm[Hg] Dr. Aliza Roman Work Phone: [facility] Work Phone: 02-27-2022 07:56-0400 Heart rate 86 /min Dr. Aliza Roman Work Phone: [facility] Work Phone: 02-27-2022 07:56-0400 Inhaled oxygen flow rate 2 L/min Dr. Aliza Roman Work Phone: [facility] Work Phone: 02-27-2022 07:56-0400 Respiratory rate 20 /min Dr. Aliza Roman Work Phone: [facility] Work Phone: 02-27-2022 07:56-0400 SaO2% (BldA) [Mass fraction] 96 % Dr. Aliza Roman Work Phone: [facility] Work Phone: 02-27-2022 07:56-0400 Systolic blood pressure 147 mm[Hg] Dr. Aliza Roman Work Phone: [facility] Work Phone: 02-14-2022 18:46-0400 Body temperature 97.9 [degF] Dr. Aliza Roman Work Phone: [facility] Work Phone: 02-14-2022 18:46-0400 Diastolic blood pressure 60 mm[Hg] Dr. Aliza Roman Work Phone: [facility] Work Phone: 02-14-2022 18:46-0400 Heart rate 107 /min Dr. Aliza Roman Work Phone: [facility] Work Phone: 02-14-2022 18:46-0400 Respiratory rate 20 /min Dr. Aliza Roman Work Phone: [facility] Work Phone: 02-14-2022 18:46-0400 SaO2% (BldA) [Mass fraction] 94 % Dr. Aliza Roman Work Phone: [facility] Work Phone: 02-14-2022 18:46-0400 Systolic blood pressure 92 mm[Hg] Dr. Aliza Roman Work Phone: [facility] Work Phone: 02-14-2022 15:03-0400 Inhaled oxygen flow rate 2 L/min Dr. Aliza Roman Work Phone: [facility] Work Phone: 02-14-2022 12:35-0400 Body height 162.[address] Aliza Roman Work Phone: [facility] Work Phone: 02-14-2022 12:35-0400 Body mass index (BMI) [Ratio] 60 kg/m2 Dr. Aliza Roman Work Phone: [facility] Work Phone: 02-14-2022 12:35-0400 Body weight 158.[address] Aliza Roman Work Phone: [facility] Work Phone: 12-02-2021 13:46-0400 Body mass index (BMI) [Ratio] 59.1 kg/m2 Dr. Aliza Roman Work Phone: [facility] Work Phone: 12-02-2021 13:46-0400 Body weight 156.[address] Aliza Roman Work Phone: [facility] Work Phone: 10-17-2021 06:25-0500 Body mass index (BMI) [Ratio] 59.7 kg/m2 Dr. Aliza Roman Work Phone: [facility] Work Phone: 10-17-2021 06:25-0500 Body temperature 97.5 [degF] Dr. Aliza Roman Work Phone: [facility] Work Phone: 10-17-2021 06:25-0500 Body weight 157.[address] Aliza Roman Work Phone: [facility] Work Phone: 10-17-2021 06:25-0500 Diastolic blood pressure 83 mm[Hg] Dr. Aliza Roman Work Phone: [facility] Work Phone: 10-17-2021 06:25-0500 Heart rate 89 /min Dr. Aliza Roman Work Phone: [facility] Work Phone: 10-17-2021 06:25-0500 Respiratory rate 18 /min Dr. Aliza Roman Work Phone: [facility] Work Phone: 10-17-2021 06:25-0500 SaO2% (BldA) [Mass fraction] 95 % Dr. Aliza Roman Work Phone: [facility] Work Phone: 10-17-2021 06:25-0500 Systolic blood pressure 145 mm[Hg] Dr. Aliza Roman Work Phone: [facility] Work Phone: Encounters Encounter Date Encounter Type Care Provider Facility Start: 06-30-2025 End: 06-30-2025 Encounter identifier Flaco Guadalupe [facility] Start: 06-30-2025 ambulatory [facility] Start: 06-16-2025 End: 06-16-2025 Encounter identifier Flaco Guadalupe Work Phone[facility] Start: 06-16-2025 ambulatory [facility] Start: 06-15-2025 End: 06-16-2025 ambulatory [facility] Facility:[facility] Start: 06-12-2025 End: 06-12-2025 Admission to same day surgery center Dr. Carlos Ibarra MD [facility] Start: 06-12-2025 End: 06-12-2025 ambulatory [facility] Facility:[facility] Start: 06-02-2025 End: 06-02-2025 Encounter identifier Flaco Guadalupe Work Phone: [facility] [place] Start: 06-02-2025 ambulatory [facility] Start: 05-29-2025 End: 05-29-2025 Office outpatient new 45 minutes Bobby Mas Work Phone: [facility] Start: 05-29-2025 ambulatory [facility] Start: 04-23-2025 End: 04-23-2025 Emergency department patient visit Dr. Aliza Roman MD Work Phone: -Emergency Department Work Phone: Start: 02-06-2025 End: 02-06-2025 Patient encounter procedure Lesvia Russo HOOD MAKER-C -[facility] Work Phone: Start: 02-06-2025 End: 02-06-[address] Aliza Roman MD Work Phone: [facility] Work Phone: Start: 01-23-2025 End: 01-23-2025 Patient encounter procedure Danai Norris HOOD MAKER-C -[facility] Work Phone: Start: 01-23-2025 End: 01-23-[address] Aliza Roman MD Work Phone: [facility] Work Phone: Start: 01-09-2025 End: 01-09-2025 Admission to same day surgery center Dr. Carlos Ibarra MD -[facility] Start: 01-09-2025 End: 01-09-[address] Aliza Roman MD Work Phone: [facility] Work Phone: Start: 12-19-2024 End: 12-19-2024 Patient encounter procedure Lesvia Russo NP-C -[facility] Work Phone: Start: 12-19-2024 End: 12-19-2024 ambulatory Aliza Roman Facility:[facility] Start: 11-27-2024 End: 11-27-2024 Emergency department patient visit Dr. Aliza Roman MD Work Phone: -Emergency Department Work Phone: Start: 10-28-2024 End: 10-28-2024 Emergency department patient visit Dr. Aliza Roman MD Work Phone: -Emergency Department Work Phone: Start: 09-21-2024 End: 09-21-[address] Aliza Roman MD -Laboratory, [place] Work Phone: Start: 09-21-2024 End: 09-21-2024 ambulatory Aliza Miedandrey Facility:[facility] Start: 08-29-2024 ambulatory [facility] Facility: [facility] Start: 08-29-2024 End: 08-29-2024 Admission to same day surgery center Dr. Carlos Ibarra MD -[facility] Start: 08-29-2024 End: 08-29-2024 ambulatory [facility] Facility:[facility] Start: 02-02-2024 End: 02-02-2024 ambulatory KAILA PFEIFFER [employer] HARDWARE ANALYST-HAND TWISTER Facility:[facility] Start: 02-02-2024 End: 02-02-2024 Patient encounter procedure KAILA PFEIFFER [employer] HARDWARE ANALYST-HAND TWISTER [facility] Start: 01-19-2024 End: 01-19-2024 ambulatory KAILA PFEIFFER [employer] HARDWARE ANALYST-HAND TWISTER Facility:[facility] Start: 01-19-2024 End: 01-19-2024 Patient encounter procedure KAILA PFEIFFER [employer] HARDWARE ANALYST-HAND TWISTER [facility] Start: 12-23-2023 End: 12-23-2023 Emergency department patient visit Dr. Aliza Roman Work Phone: [facility] Work Phone: Start: 12-18-2023 End: 12-19-2023 Emergency department patient visit Dr. Aliza Roman Work Phone: [facility] Work Phone: Start: 12-05-2023 End: 12-05-2023 Emergency department patient visit Dr. Aliza Roman Work Phone: [facility] Work Phone: Start: 11-23-2023 End: 11-23-[address] Aliza Roman Work Phone: [facility] Work Phone: Start: 11-19-2023 End: 11-19-2023 ambulatory DENNY STEVENS Facility:[facility] Start: 11-16-2023 End: 11-16-2023 ambulatory DENNY STEVENS Facility:[facility] Start: 11-16-2023 End: 11-16-2023 Subsequent hospital visit by physician [facility] Work Phone: Radiology Comment on above: Pain [R52] Start: 10-30-2023 End: 10-30-[address] Aliza Roman Work Phone: [facility] Work Phone: Start: 10-30-2023 End: 10-30-[address] Aliza Roman Work Phone: [facility]iology, [facility] Work Phone: Start: 10-13-2023 Orders Only Torito Mccormick Work Phone: [facility] Comment on above: Pain (Primary Dx) Pain in left hip (Pr imary Dx) Start: 10-06-2023 End: 10-06-2023 ambulatory SIMIN HENDRIX Facility:[facility] Start: 10-06-2023 End: 10-06-2023 ambulatory SIMIN HENDRIX Facility:[facility] Start: 10-06-2023 End: 10-06-2023 Patient encounter procedure Simin Hendrix Work Phone: Podiatry Comment on above: Onychomycosis (Prima ry Dx); Pain in toe of left foot; Pain in toe of right foot; Callus of foot Start: 10-06-2023 End: 10-06-2023 Subsequent hospital visit by physician [facility] Work Phone: Radiology Comment on above: Pain [R52] Start: 09-10-2023 End: 09-10-[address] Aliza Roman Work Phone: [facility] Work Phone: Start: 09-03-2023 End: 09-03-[address] Aliza Roman Work Phone: [facility] Work Phone: Start: 09-03-2023 End: 09-03-[address] Aliza Roman Work Phone: [facility] Work Phone: Start: 08-31-2023 End: 08-31-[address] Aliza Roman Work Phone: [facility] Work Phone: Start: 07-23-2023 End: 07-23-[address] Aliza Roman Work Phone: [facility] Work Phone: Start: 02-15-2023 End: 02-15-2023 Emergency department patient visit Dr. Aliza Roman Work Phone: [facility]Emergency [facility] Start: 02-02-2023 End: 02-02-[address] Aliza Roman Work Phone: [facility] Work Phone: Start: 02-02-2023 End: 02-02-[address] Aliza Roman Work Phone: [facility] Start: 01-30-2023 End: 01-30-[address] Aliza Roman Work Phone: [facility]atory Start: 01-21-2023 End: 01-21-[address] Aliza Roman Work Phone: [facility] Start: 01-13-2023 End: 01-13-2023 Emergency department patient [facility] Start: 01-05-2023 End: 01-05-[address] Aliza Roman Work Phone: [facility] Start: 05-02-2022 End: 05-02-2022 Emergency department patient [facility] Start: 02-27-2022 End: 02-27-[address] Aliza Roman Work Phone: [facility] Start: 02-14-2022 End: 02-14-2022 Emergency department patient [facility] Start: 12-02-2021 End: 12-02-[address] Aliza Roman Work Phone: [facility] Start: 10-17-2021 End: 10-17-[address] Aliza Roman Work Phone: [facility] Start: 10-10-2021 End: 10-10-2021 Patient encounter procedure TONNY SONG MD [facility] Procedures Date Procedure Procedure Detail Performing Clinician Start: 06-16-[address] Aliza Roman MD Work Phone: Start: 06-16-2025 Serum inorganic phos phate measurement Dr. 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 Aliza balderas Work Phone: SARS-CoV-2 & FLU Ant igen (Rapid) Dr. Aliza Roman Work Phone: Surgical fistula (morphologic abnormality) KAIL[employer] PFEIFFER [employer] HARDWARE ANALYST-HAND TWISTER Urine culture Dr. Aliza aly Work Phone: Plan of Treatment Date Care Activity Detail Author Start: 08-07-2025 End: 08-07-2025 Donna Rodriges [facility] Work Phone: Start: 06-16-2025 Non-patient / Non-visit Non-pa tient / Non-visit -[facility] Work Phone: Start: 06-16-2025 Patient discharge [facility] Start: 06-15-2025 Continuous pulse oximetry [facility] Start: 06-15-2025 Dual pressure spontaneous ventilation support [facility] Start: 06-15-2025 Application of intermittent pneumatic compression device [facility] Start: 06-15-2025 Following clinical pathway protocol [facility] Start: 06-15-2025 Ambulation without limitation [facility] Start: 06-15-2025 Assessment of risk o f venous thromboembolism [facility] Start: 06-15-2025 Care regimes management [facility] Start: 06-15-2025 Inhalation therapy procedure [facility] Start: 06-15-2025 Insertion of cathete r into peripheral vein [facility] Start: 06-15-2025 Measuring intake and output [facility] Start: 06-15-2025 Notification of physician [facility] Start: 06-15-2025 Oxygen therapy [facility] Start: 06-15-2025 Providing care accor ding to standard [facility] Start: 06-15-2025 Provision of activit y privileges [facility] Start: 06-15-2025 Referral for physica l therapy [facility] Start: 06-15-2025 Referral to occupati onal therapist [facility] Start: 06-15-2025 Referral to service [facility] Start: 06-15-2025 End: 06-15-2025 [facility] Start: 06-15-2025 Admission procedure [facility] Start: 06-15-2025 End: 06-16-2025 Evaluation and management of inpatient Hyperglycemia due to type 2 diabetes mellitus -[facility] Work Phone: Start: 06-15-2025 MRI of lower extremity Extremi ty Lower without Contra [facility] Start: 06-15-2025 [facility] Start: 06-12-2025 Anesthesia closed hi p joint procedure ANESTH HIP JOINT PROCEDURE [facility] Start: 06-12-2025 Procedure on extremity DRAIN/I NJ JOINT/BURSA W/O US [facility] Start: 06-12-2025 Patient discharge [facility] Start: 04-23-2025 [facility] Start: 01-09-2025 Arthrocentesis aspir&/inj major jt/bursa w/o us DRAIN/INJ JOINT/BURSA W/O US [facility] Start: 01-09-2025 Fluoroscopic guidance [facility] Start: 01-09-2025 Patient discharge [facility] Start: 11-27-2024 [facility] Start: 11-27-2024 [facility] Start: 10-28-2024 [facility] Start: 08-29-2024 Arthrocentesis aspir&/inj major jt/bursa w/o us DRAIN/INJ JOINT/BURSA W/O US [facility] Start: 08-29-2024 Patient discharge [facility] Start: 12-23-2023 [facility] Start: 12-19-2023 [facility] Start: 12-05-2023 [facility] Start: 09-03-2023 Procedure [facility] Start: 08-31-2023 Patient referral [facility] Work Phone: Start: 08-24-2023 Depression Assessment Depression Ass essment [facility] Start: 04-24-2023 Covid-19 Vaccine ( season) Covid-19 Vaccine ( season) [facility] Start: 05-02-2022 Plain x-ray of hand Hand Min 3 Views [facility] Work Phone: Start: 05-02-2022 XR Hand GE 3 Views [facility] Work Phone: Start: 02-14-2022 End: 02-14-2022 [facility] Work Phone: Start: 02-14-2022 End: 02-14-2022 Blood culture [facility] Work Phone: Start: 01-27-2015 Pneumococcal vaccination Pneum ococcal Vaccine (2 of 2 - PCV) [facility] Start: 2003 Hepatitis B Vaccine (1 of 3 - 19+ 3-dose series) Hepatitis B Vaccine (1 of 3 - 19+ 3-dose series) [facility] Start: 2003 Urine microalbumin profile DTaP,Tdap,Td Vaccine (1 - Tdap) [facility] Start: 2002 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 oswaldo Disease Visit Annual PCP Team Chronic Disease Visit [facility] Start: 2002 Hepatitis B surface antibody level LDL Cholesterol [facility] Start: 2002 Hepatitis C screening Hepatitis C Sc reening [facility] Start: 2002 HIV screening HIV Screening [facility] Start: 1994 Diabetic foot examination Diabetic Foot Exam [facility] Start: 1994 Glaucoma screening Dilated Retinal E xam [facility] Start: 1994 Hepatitis B screening Urine Albumin:Creatinine Ratio [facility] Start: 1989 Hemoglobin A1c measurement HbA1C [facility] Start: 1984 Hepatitis B Vaccine (1 of 3 - 3-dose series) Hepatitis B Vaccine (1 of 3 - 3-dose series) [facility] Bacteria identified in Blood by Culture Blood Culture [facility] Work Phone: Bacteria identified in Urine by Culture Urine Culture [facility] Work Phone: Blood culture [facility] Work Phone: Patient Education [facility] Work Phone: Patient referral [facility] Work Phone: XR Foot - bilateral AP and Lateral and oblique XR FOOT GENERAL 3V AP/LAT/OBL BILATERAL Radiology Routine Pain 10/06/2023 12:52 PM EST [facility] Work Phone: End: 11-11-2024 XR Pelvis and Hip - left AP and Lateral frog [facility] Work Phone: Comment on above: 1 Occurrences starti ng 10/13/2023 until 11/11/2024 1 Occurrences starti ng 10/14/2023 until 11/11/2024 XR Pelvis and Hip - left AP and Lateral frog XR HIP GENERAL 3V PELV/AP/LAT LEFT Radiology Routine Pain 11/16/2023 10:36 AM EDT [facility] Work Phone: [facility] Work Phone: [facility] Immunizations Immunization Date Immunization Notes Care Provider Dusty burden 05-12-2025 Influenza, injectabl e, Madin Vermilion Canine Kidney, preservative free, quadrivalent Dr. Aliza Roman MD Work Phone: [facility] 06-03-2024 influenza, seasonal, injectable, preservative free Dr. Aliza Roman MD Work Phone: [facility] 10-19-2023 Covid (Spikevax) Dr. Aliza Roman MD Work Phone: [facility] 05-21-2023 influenza, injectabl e, quadrivalent, preservative free Dr. Aliza Roman MD Work Phone: [facility] 04-29-2022 influenza, injectabl e, quadrivalent, preservative free Dr. Aliza Roman MD Work Phone: [facility] 07-25-2021 Covid (Moderna) Dr. Aliza flores MD Work Phone: [facility] 01-11-2021 Covid (Moderna) Dr. Aliza flores MD Work Phone: [facility] 12-14-2020 Covid (Moderna) Dr. Aliza flores Work Phone: [facility] 06-04-2020 influenza, injectabl e, quadrivalent, preservative free Dr. Aliza Roman MD Work Phone: [facility] 05-30-[address] Aliza Roman Work Phone: [facility] 06-06-2019 influenza, injectabl e, quadrivalent, preservative free Dr. Aliza Roman MD Work Phone: [facility] 05-25-[address] Aliza Roman Work Phone: [facility] 05-24-[address] Aliza Roman Work Phone: [facility] 05-03-2018 influenza, injectabl e, quadrivalent, preservative free Dr. Aliza Roman MD Work Phone: [facility] 06-04-2017 influenza, injectabl e, quadrivalent, preservative free Dr. Aliza Roman MD Work Phone: [facility] 05-12-[address] Aliza Roman Work Phone: [facility] 05-25-[address] Aliza Roman Work Phone: [facility] 01-27-2014 pneumococcal polysaccharide vaccine, [address] Aliza Roman MD Work Phone: [facility] 01-27-[address] Byron Roman Work Phone: [facility] Work Phone: 01-27-2014 pneumococcal vaccine , unspecified formulation Dr. Aliza Roman Work Phone: [facility] 05-03-2013 influenza, injectabl e, quadrivalent, preservative free Dr. Aliaz Roman MD Work Phone: [facility] Payers Date Payer Category Payer Self-pay [id number] 2015 Medicaid [facility] MEDICAID [id number] 2015-Present [phone] [place] [address] Medicaid [id number] 2015 Medicare [employer] [id number] 2015-Present [phone] [address] [place] [address] Medicare [id number] 2014 Unknown [id number] 2014 Unknown [id number] 1984 Unknown [id number] 1984 Unknown [id number] 1984 Unknown [id number] 1984 Unknown [id number] 1984 Unknown [id number] Unknown [id number] Unknown [id number] Unknown [id number] Unknown [id number] Unknown [id number] Unknown [id number] Unknown [id number] [id number] Unknown [id number] Unknown [id number] Unknown [id number] Unknown [id number] Unknown [id number] Unknown [id number] Unknown [id number] Social History Date Type Detail Facility [facility] Start: 1985 Sex Assigned At Male [facility] Start: 02-14-2022 End: 06-16-2025 Tobacco smoking status KSIS Unknown if ever smoked [facility] Start: 10-27-2020 None [facility] Start: 10-27-2020 Spouse/ Signif icant Other [facility] Start: 10-27-2020 Non-smoker [facility] Start: 05-16-2014 End: 06-15-2025 Tobacco smoking status KSIS Never smoked tobacco [facility] Start: 05-16-2014 Tobacco use and exposure Smokeless tobacco non-user [facility] Start: 10-06-2023 Alcohol intake Current drinke r of alcohol (finding) [facility] Start: 10-06-2023 History of Social function [facility] Start: 10-06-2023 Tobacco use panel [facility] National Score (1-100), lower number is lower risk 66 [facility] Start: 10-06-2023 Alcohol [facility] Start: 1985 Sex Assigned At Not on file [facility] Start: 10-28-2024 End: 11-27-2024 Sex Male (finding) [facility] Start: 05-29-2025 Alcohol intake Alcohol Use Details [facility] Start: 05-29-2025 Tobacco use and exposure Non-Smoking Tobacco Use Details [facility] Start: 11-21-2024 Sexual Orientation Choose not to disclose [facility] Start: 07-11-2024 Sexual Orientation Straight or heterosexual [facility] NEGATED: Highlighted rowStart: 05-29-2025 Tobacco smoking status NHIS Never smoker [facility] NEGATED: Highlighted rowStart: 06-02-2025 Tobacco smoking status NHIS Unknown if ever smoked [facility] Goals Date Patient Goal Desired Activity /State Functional Status Date Assessment Result Facility 06-16-2025 Functional status With Assist of 2 [facility] Work Phone: Mental Status Date Assessment Result Facility 06-16-2025 Cognitive function Voice/Name [facility] Work Phone: 06-12-2025 Cognitive function Voice/Name [facility] Work Phone: 01-09-2025 Cognitive function Voice/Name [facility] Work Phone: 11-27-2024 Cognitive function Level Of Cons ciousness Awake;Alert;Appropriate;Follow s Commands [facility] Work Phone: 08-29-2024 Cognitive function Voice/Name [facility] Work Phone: 02-14-2022 Cognitive function Level Of Cons ciousness Awake;Alert;Appropriate;Follow s Commands [facility] Work Phone: Clinical Notes 10-06-2023 to 06-16-2025 Note Date & Type Note Facility 06-16-2025 Note [facility] Medical Records Department [address] [place] [address] Discharge Summary 06/16/25 1321 MR#: [id number] Acct: [id number] Name: DONNA RODRIGES Rep #: [id number] : [id number] 40 From: Hector Harris DO PCP: Dr. Aliza Roman MD Status:DIS JESSICA [place] [facility] [id number] Providers Date of Admission: 06/15/25 Date of Discharge: 06/16/25 Primary Care Physician: Dr. Aliza Roman MD Reason For Visit: LEFT HIP PAIN W. 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: Status: Acute Code(s): M16.32 - Unilateral osteoarthritis resulting from hip dysplasia, left hip (4) Leukocytosis: Status: Acute Code(s): D72.829 - Elevated white blood cell count, unspecified Qualifiers: Leukocytosis type: unspecified Qualified Code(s): D72.829 - Elevated white blood cell count, unspecified (5) Morbid obesity with BMI of 60.0-69.9, adult: Status: Acute Code(s): E66.01 - Morbid (severe) obesity due to excess calories; Z68.44 - Body mass index [BMI] 60.0-69.9, adult (6) Hyperglycemia due to type 2 diabetes mellitus: Status: Acute Code(s): E11.65 - Type 2 diabetes mellitus with hyperglycemia Qualifiers: 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 Uncontrolled acute on chronic pain secondary to congenital dysplasia of the left hip #2 class III obesity #3 type 2 diabetes #4 seizure disorder #5 hyperlipidemia #6 essential hypertension Medications at Discharge Home Medications baclofen 20 mg tablet 20 mg PO Q12H muscle spasms 06/25/18 pantoprazole 40 mg tablet,delayed release 40 mg PO DAILY gi 06/25/18 furosemide 20 mg tablet 40 mg PO BID diuretic 10/13/21 colchicine 0.6 mg tablet 0.6 mg PO PRN gout 12/02/21 albuterol sulfate 2.5 mg/3 mL (0.083 %) solution for nebulization 2.5 mg (3 mL) inhalation Q4H PRN shortness of breath or wheezing #180 mL 01/05/23 albuterol sulfate 90 mcg/actuation aerosol inhaler 2 inh inhalation Q4H PRN PRN Sob /Or Wheezing #8.5 grams 01/05/23 montelukast 10 mg tablet 10 mg PO DAILY allergies #90 tabs 01/05/23 spacer #1 ea 01/05/23 potassium citrate 10 mEq (1,080 mg) tablet,extended release 10 meq PO DAILY 07/23/23 allopurinol 300 mg tablet 300 mg PO BID gout 12/19/24 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,personal injury litigation paralegal,cont (FreeStyle Nancy 3 Holly) #1 ea 12/19/24 rosuvastatin 5 mg tablet 5 mg PO QDAY #30 tabs 12/19/24 budesonide-formoterol HFA 160 mcg-4.5 mcg/actuation aerosol inhaler (Symbicort) 2 inh inhalation BID #1 ea 01/23/25 levetiracetam 500 mg tablet 500 mg PO BID seizures 01/23/25 nebivolol 10 mg tablet 10 mg PO DAILY heart 01/23/25 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 sensor (FreeStyle Nancy 3 Plus Sensor device) #2 ea 02/06/25 insulin regular hum U-500 conc 500 unit/mL(3 mL) subcut pen (Humulin R U-500 (Conc) Insulin Kwikpen) See Rx Instructions subcut TIDWMEAL 06/01/25 tirzepatide 5 mg/0.5 mL subcutaneous pen injector (Mounjaro) 5 mg subcut .tuesdays06/15/25 BIPAP -Bilevel Positive Airway Pressure ([facility] INFORMATIONAL USE ONLY) ROBERT 06/16/25 OXYGEN - Supplemental ([facility]FORM[facility] USE ONLY) 06/16/25 celecoxib 200 mg capsule 200 mg PO BIDCM #1 cap 06/16/25 oxycodone 5 mg tablet 15 mg (3 x 5 mg) PO TID pain 7 days #63 tabs 06/16/25 Hospital Course Operations None Procedures None Summary of Care Provided Minutes Spent on Discharge: 31 Hospital Course: This 40-year-old white male was seen in the emergency room at [facility] with complaints of increasing pain in his left hip with inability to ambulate and perform ADLs at home. Patient has a history of chronic left hip pain from a congenital dysplasia of the hip, he has seen orthopedic surgeon, the plan is to replace the left hip but according to the patient, they would like him to lose weight before the surgery and they are also having trouble getting his insurance to cover the surgery itself. Patient is due to see his orthopedic surgeon in July of this year again. Patient sees Dr. Alexis for chronic pain and recently had a left intra-articular hip injection a few days ago. CT of the left hip showed severe osteoarthritic changes of the left hip, patient was placed in observation status on MedSurg 3, he received narcotic analgesics and PT and OT were scheduled to see the patient. I had a long discussion with the patient, his left hip pain has been chronic in nature and it has worsened over the past several weeks, I contacted his pain management physician and went over treatment plans with the pain management physician and (more content not included)... [facility] 06-12-2025 Consult note [facility] 06-12-2025 Radiology Diagnostic study note [facility] Imaging Services [address] [place] [address] Fluoro Guided Needle Placement MR#: [id number] Acct: [id number] Name: DONNA RODRIGES Rep #: [id number] : 1985 M 40 From: Lennox Roldan MD PCP: Dr. Aliza Roman MD Status: [facility] Study:Fluoro Guided Needle Placement Date of Exam: 06/12/25 Exam# [id number] Ordering Dr: Carlos Ibarra MD PROCEDURE: FLUORO [...] provided for left hip injection. Reading Location: [place] [address] CC: Dr. Aliza Roman MD; Dr. Carlos Ibarra MD ~ Signals Intelligence Analyst: Signed [facility] 06-12-2025 Procedure note [facility] 06-12-2025 Consult note [facility] 06-12-2025 Consult note Note Date/Time June 12, 2025 10:38am [facility] Medical Records Department [address] [place] [address] Pre-Anesthesia Evaluation 06/12/25 0750 MR#: [id number] Acct: [id number] Name: DONNA RODRIGES Rep #:[id number] : 1985 40 From: Sridhar Cardozo MD PCP: Dr. Aliza Roman MD Status:REG SDC Y Race: C Location: [place] [address] ASA Classification* ASA Classification ASA Classification: 3 [...] Anesthesia Type: MAC Anesthesia Focused Assessment* Temperature: 98 F Pulse Rate: 77 Blood Pressure: 139/79 Respiratory Rate: 16 Pulse Ox: 95 Airway Assessment Mouth opens: >3 cm Mallampati Score: II Labs Anesthesia Preop lab: CBC WBC, (4.4-11.0) 9.8 K/mm3 04/23/25, 16:58 RBC, (4.6-6.2) 5.03 M/mm3 04/23/25, 16:58 Hgb, (13.0-16.5) 14.5 g/dL 04/23/25, 16:58 Hct, (40-54) 43.6 % 04/23/25, 16:58 Plt Count, (150-450) 206 K/mm3 04/23/25, 16:58 CHEMISTRY Potassium, (3.3-5.1) 4.0 mmol/L 04/23/25, 16:58 Sodium, (133-145) 143 mmol/L 04/23/25, 16:58 Magnesium, (1.6-2.6) 2.1 mg/dL 10/28/20, 05:30 Phosphorus, (2.5-4.9) 2.4 mg/dL L 01/28/20, 08:30 BUN, (4-19) 12 mg/dL 04/23/25, 16:58 Creatinine, (0.70-1.20) 0.60 mg/dL L 04/23/25, 16:58 Glucose, (70-99) 195 mg/dL H 04/23/25, 16:58 POC Glucose, (74-106) 112 mg/dL H Today, 07:17 TSH, (0.358-3.74) 3.80 uIU/mL H 01/29/20, 06:12 COAG PT, (11.7-14.9) 13.3 SECONDS 02/14/22, 13:37 Pre-Assessment Diagnosis/Proposed Procedure Planned Operative Procedure(s): (L) Injection, Hip Anesthesia History 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 When Was Last Pacemaker Check QUESTION #4 FULL TEXT: You/Your Family Experience fever (hyperthermia) with Anesthesia Last Oral Intake Last Oral intake: Last Oral Intake NPO since 02:00 06/12/25 07:13 Meds taken in AM with sips of No 06/12/25 07:13 water? 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 - casting carrier: PONV - casting carrier Female No 06/01/25 15:29 HX of Motion Sickness Yes 06/01/25 15:29 HX of N/V After Surgery No 06/01/25 15:29 Non-Smoker Yes 06/01/25 15:29 Duration of Surgery greater No 06/01/25 15:29 than 60 minutes Number of Risk Factors 2 06/01/25 15:29 PONV Score Moderate Risk 06/01/25 15:29 Height & Weight Height & Weight: Anesthesia: Height & Weight Height 5 ft 4 in 06/12/25 07:13 Weight: 161 kg 06/12/25 07:13 Body Mass Index (BMI) 60.9 06/12/25 07:13 Respiratory Assessment Respiratory Assessment - casting carrier: Respiratory Tract Infection Hx - casting carrier Hx Respiratory Tract Infection No 06/01/25 15:29 STOP Sleep Apnea STOP Sleep Apnea - casting carrier: STOP Sleep Apnea - casting carrier Hx Hypertension Yes: CONTROLLED WITH MEDS 06/01/25 15:29 Hx Sleep Apnea Yes 06/01/25 15:29 CPAP No 06/01/25 15:29 BIPAP Yes 06/01/25 15:29 Do you snore loudly (louder than talking or can be heard Do you often feel tired/ fatigued/ sleepy during daytime? Has anyone observed you stop breathing during sleep? STOP Results Positive 06/01/25 15:29 QUESTION #5 FULL TEXT : Do you snore loudly (louder than talking or can be heard through closed doors)? Tobacco Use History Tobacco Use History - casting carrier: Tobacco Use History - casting carrier Tobacco Use Non-smoker 02/27/22 14:09 Smoking Status Never smoker 06/01/25 15:29 Hx Tobacco Use No 06/01/25 15:29 Years Smoking Packs Smoked per Day Smoking Cessation Date was within the last 15 years Hx Smoking Cessation Date Hx Smoking Cessation Counseling Hematologic Medial History Hematologic Hx - casting carrier: Hematologic Medical Hx - cobol engineer Hx of Blood Transfusion No 06/01/25 15:29 Hx of Transfusion in last 3 No 06/01/25 15:29 Months Date of Last Transfusion (if within last 3 months) Ever experience any problems No 06/01/25 15:29 with transfusion(s)? Specify any problems Hx of Preganancy in last 3 N/A 06/01/25 15:29 Months Nurse Filling Out Transfusion MGRIFFITH 06/01/25 15:29 & Questions: Date: 06/01/25 06/01/25 15:29 Time: 15:33 06/01/25 15:29 Patient unable to answer at this time (ie. confused, unrespo /Reproduction History /Reproductive History - casting carrier: /Reproductive Hx- casting carrier Hx Now No 06/01/25 15:29 Gestational Age (in weeks): EDC: Hx Hx Para Hx Section SAB Active Medications Active Medications: Current Medications Generic Name Dose Route Start Last Admin Trade Name Freq PRN Reason Stop Dose Admin Lactated Ringer's 1,000 mls @ 15 mls/hr 06/12/25 07:15 06/12/25 07:31 IV 15 mls/hr .Q48H ZAIN Administration PFSH Medical History Wears glasses Alcohol use Arthritis Uses wheelchair High cholesterol Restless legs Seizures History of edema BiPAP (biphasic positive airway pressure) dependence On home oxygen therapy ROBERT treated with BiPAP Cerebral palsy Anxiety [...] mg PO BID gout 12/19/24 Unknown History 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,personal injury litigation paralegal,cont #1 ea 12/19/24 Unknown Rx (FreeStyle Nancy 3 Holly) celecoxib 200 mg capsule 200 mg PO [...] device) insulin regular hum U-500 conc 500 See Rx Instructions subcut TIDWMEAL 06/01/25 Unknown History unit/mL(3 mL) subcut pen (Humulin R U-500 (Conc) Insulin Kwikpen) tirzepatide 5 mg/0.5 mL 5 mg subcut SA 06/01/2512/16 History subcutaneous pen injector (Mounjaro) Allergy/AdvReac Type Severity Reaction Status Date / Time duloxetine Allergy Severe Other Verified 06/12/25 07:11 animal dander Allergy Chest Verified 06/12/25 07:11 tightness grass pollen Allergy Other Verified 06/12/25 07:11 house dust Allergy Other Verified 06/12/25 07:11 pollen extracts Allergy Other Verified 06/12/25 07:11 Family History Father Chronic a-fib CVA (cerebral vascular accident) Mother ROBERT (obstructive sleep apnea) Breast cancer Grandfather Cancer bladder Other Diabetes Hypertension Thyroid disorder Surgical History History of surgery History of surgery H/O hernia repair H/O eye surgery S/P FISH CLEANER MACHINE TENDER shunt Social History household members: spouse Smoking Status: Never smoker Review of Systems (Anesthesia) ROS Narrative System reviewed and no additional complaints, except as documented. 06/12/25 0750 <Electronically signed by Sridhar Cardozo MD > Date _ Sridhar Cardozo MD Cosigner Signature: Date CC: ~ Signed [facility] Work Phone: 1(263) 640-226310-10-2025 Evaluation note* Type Assessment Date assessment [facility] Work Phone: 1(939) 815-356410-06-2025 Evaluation note* Type Assessment Date assessment assessment [facility] [place] Work Phone: 1(501) 606-726810-06-2025 History of Present illness Narrative* Encounter Date Complaint History Of Prese nt Illness New Hip Patient is here [...] the left secondary to the Cerberal Palsy. [facility] [place] Work Phone: 1(105) 456-138308-31-2025 Discharge summary [facility] Medical Records Department [address] [place] [address] Emergency Department Summary 04/23/25 MR#: [id number] Acct: [id number] Name: DONNA RODRIGES Rep #:[id number] : 1985 39 From: Dre Johnson MD [...] joint. He was asked if he has fttf-sk-noty. He responded yes. 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 Reading Location: [id number] The report by radiologist was reviewed at [...] He is even been seen by the [facility] and they are reluctant to do [...] left hip, Type II diabetes mellitus, S/P FISH CLEANER MACHINE TENDER shunt, Obesity hypoventilation syndrome, Fatty liver disease, [...] mg PO DAILY (DME) FreeStyle Nancy 3 Holly Misc See Rx Instructions .Route Qty: 1 [...] name of the bicycle sharps are dirty [employer] bicycle works and at [employer] Language: German Disposition Disposition: Home, Self Care What to do if you have Problems For any increased pain, shortness of breath, bleeding, nausea or vomiting, chestpain, or any unexpected problems, contact your Primary Care Provider. Call [facility] ([phone]) or report tothe closest Emergency Room. Call 911 if necessary. 04/23/25 1839 Cosigner Signature (if applicable): CC: Dr. Aliza Roman MD ~ Signed [facility]08-31-2025 Radiology Diagnostic study note [facility] Imaging Services [address] [place], [place] [address] HIP, UNI W/ Pelvis 2-3 Views MR#: [id number] Acct: [id number] Name: DONNA RODRIGES Rep #: [id number] : 1985 M 39 From: Fran Meyer MD PCP: Dr. Aliza Roman MD Status: REG ER Study:HIP, UNI W/ Pelvis 2-3 Views Date of Ex am: 04/23/25 Exam# [id number] Ordering Dr: Moilna Johnson MD PROCEDURE: HIP, UNI W/ PELVIS 2-3 VIEWS 04/23/2025 REASON FOR EXAM: INJURY/PAIN TECHNIQUE: Procedure Code: RAD Modality: DX Procedure: HIP, UNI W/ PELVIS [...] acetabulum in this young patient. Reading Location: [facility] CC: Dr. Aliza Roman MD; Dr. Dre Johnson MD ~ Signals Intelligence Analyst: Signed [facility]08-31-2025 Discharge summary Author Dre Johnson [facility] Note Date/Time April 23, 2025 6: 39pm [facility] Medical Records Department [address] [place] [address] Emergency Department Summary 04/23/25 MR#: [id number] Acct: [id number] Name: DONNA RODRIGES Rep #:[id number] : 1985 39 From: Dre Johnson MD [...] joint. He was asked if he has ljha-pv-dstg. He responded yes. He denies fever, chills [...] mg PO BID gout 12/19/24 Unknown History 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,personal injury litigation paralegal,cont #1 ea 12/19/24 Unknown Rx (FreeStyle Nancy 3 Holly) celecoxib 200 mg capsule 200 mg PO [...] H/O hernia repair H/O eye surgery S/P FISH CLEANER MACHINE TENDER shunt Surgical History no surgical history Social [...] % (Auto) 64.0 Lymph % (Auto) 24.9 [place] % (Auto) 6.6 Eos % (Auto) 3.1 [...] acetabulum in this young patient. Reading Location: [facility] The report by radiologist was reviewed at [...] He is even been seen by the [facility] and they are reluctant to do [...] left hip, Type II diabetes mellitus, S/P FISH CLEANER MACHINE TENDER shunt, Obesity hypoventilation syndrome, Fatty liver disease, [...] mg PO DAILY (DME) FreeStyle Nancy 3 Holly Misc See Rx Instructions .Route Qty: 1 [...] name of the bicycle sharps are dirty [employer] bicycle works and at [employer] Language: German Disposition Disposition: Home, Self Care What to do if you have Problems For any increased pain, shortness of breath, bleeding, nausea or vomiting, chestpain, or any unexpected problems, contact your Primary Care Provider. Call [facility] ([phone]) or report to the closest Emergency Room. Call 911 if necessary. 04/23/25 7254 <Electronically signed by Dre Johnson MD> Cosigner Signature (if applicable): CC: Dr. Aliza Roman MD ~ Signed [facility] Work Phone: 1(634) 397-565906-02-2025 Evaluation note* Diagnosis Onset Date Resolution Status Admit Date Bronchial asthma chronic January 2:35pm Hypoxia chronic January 23, 2025 2:35pm Obesity hypoventilation syndrome chr onic January 23, 2025 2:35pm Super obesity chronic January 23 025 2:35pm Benign hypertension chronic February 06, 2025 12:58pm Hyperlipemia chronic February 06 025 12:58pm Obesity chronic February 06 12:58pm Type II diabetes mellitus chronic February 06, 2025 12:58pm [facility] Work Phone: 1([phone]) 366-382805-19-2025 Procedure note [facility] Medical Records Department [address] [place] [address] Operative Report 01/09/25823 MR#: [id number] Acct: [id number] Name: DONNA RODRIGES Rep #:[id number] : 1985 39 From: Carlos Ibarra MD PCP: Dr. Aliza Roman MD Status:[facility] Location: [place] [address]- Operative Report (Standard) Operative Information Date of Procedure: 01/09/25 Pre-Operative Diagnosis: 1 Post-Operative Diagnosis: 1 Surgery/Procedure Performed: 1 pantograph transferrer: No Type of Anesthesia: Local MAC RN [...] Roman MD; Dr. Carlos Ibarra MD~ Signed [facility]05-19-2025 Consult note [facility] Medical Records Department [address] [place] [address] Pre-Anesthesia Evaluation 01/09/25 0718 MR#: [id number] Acct: [id number] Name: DONNA RODRIGES Rep #:[id number] : 1985 39 From: Sridhar Cardozo MD PCP: Dr. Aliza Roman MD Status:REG [facility] Y Race: C Location: [place] [address] ASA Classification* ASA Classification ASA Classification: 3 [...] hip injection Anesthesia History Anesthesia History - casting carrier: Anesthesia History - casting carrier Hx Hospitalization No 03/17/24 08:06 Any Problems [...] take am of surgery PONV PONV - casting carrier: PONV - casting carrier Female HX of Motion Sickness HX of N/V After Surgery Non-Smoker Duration of Surgery greater than 60 minutes Number of Risk Factors PONV Score Height & Weight Height & Weight: Anesthesia: Height & Weight Height 5 ft 4 in 01/09/25 06:48 Weight: 159 kg 01/09/25 06:48 Body Mass Index (BMI) 60.1 01/09/25 06:48 Respiratory Assessment Respiratory Assessment - casting carrier: Respiratory Tract Infection Hx - casting carrier Hx Respiratory Tract Infection No 03/17/24 08:06 STOP Sleep Apnea STOP Sleep Apnea - casting carrier: STOP Sleep Apnea - casting carrier Hx Hypertension Yes: CONTROLLED WITH MEDS 03/17/24 [...] Tobacco Use History Tobacco Use History - casting carrier: Tobacco Use History - casting carrier Tobacco Use Non-smoker 02/27/22 14:09 Smoking Status Never smoker 11/27/24 11:04 Hx Tobacco Use No 03/17/24 08:06 Years Smoking Packs Smoked per Day Smoking Cessation Date was within the last 15 years Hx Smoking Cessation Date Hx Smoking Cessation Counseling Hematologic Medial History Hematologic Hx - casting carrier: 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 Specify any problems Hx of Preganancy in last 3 Months Nurse Filling Out Transfusion & Questions: Date: Time: Patient unable to answer at this time (ie. confused, unrespo /Reproduction History /Reproductive History - casting carrier: /Reproductive Hx- casting carrier Hx Now Gestational Age (in weeks): EDC: [...] Unknown Rx Nancy 3 Plus Sensor device) 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,personal injury litigation paralegal,cont #1 ea 12/19/24 Unknown Rx (FreeStyle Nancy 3 Holly) celecoxib 200 mg capsule 200 mg PO [...] H/O hernia repair H/O eye surgery S/P FISH CLEANER MACHINE TENDER shunt Social History Smoking Status: Never smoker Review of Systems (Anesthesia) ROS Narrative System reviewed and no additional complaints, except as documented. 01/09/25 0719 > Date _ Sridhar Cardozo MD Cosigner Signature: Date CC: ~ Signed [facility]04-28-2025 Evaluation note* Diagnosis Onset Date Resolution Status Admit Date Benign hypertension chronic December 19, 2024 1:29pm Fatty liver disease, nonalcoholic chronic December 19, 2024 1:29pm Hyperlipemia chronic December 19, 2024 1:29pm Obesity chronic December 19 1:29pm Type II diabetes mellitus chronic December 19, 2024 1:29pm [facility] Work Phone: 1([phone]) 156-890204-28-2025 Evaluation note* Diagnosis Onset Date Resolution Status [...] obesity chronic January 23, 2 025 2:35pm [facility] Work Phone: 1([phone]) 777-686504-06-2025 Radiology Diagnostic study note [facility] Imaging Services [address] [place], [place] [address] Shuntogram/Prev Placed Shunt MR#: [id number] Acct: [id number] Name: DONNA RODRIGES Rep #: [id number] : 1985 M 39 From: Pet er Peer DO PCP: Dr. Aliza Roman MD Status: REG ER Study:Shuntogram/Prev Placed Shunt Date of Ex am: 11/27/24 Exam# [id number] Ordering Dr: Mica Mendez DO EXAM: Diagnostic shuntogram of placed shunt. CLINICAL HISTORY: Bilateral lower extremity edema for 2 days. COMPARISON: Yesterday, November 26 pelvis and November 27 brain TECHNIQUE: Plain films were obtained to survey the entire course of the right-sided FISH CLEANER MACHINE TENDER shunt. FINDINGS: Skull demonstrates right parietal shunt. The tubing traverses the right skull and right thorax and then is seen right abdomen initially and then crosses over to the left abdomen. No obvious kinking or other abnormality. RAD/Shuntogram/Prev Placed Shunt IMPRESSION: Patent FISH CLEANER MACHINE TENDER shunt. Reading Location: [facility] CC: Dr. Aliza Roman MD; Dr. Davonte Mendez DO ~ Signals Intelligence Analyst: Signed [facility]04-06-2025 Radiology Diagnostic study note [facility] Imaging Services [address] [place] [address] HIP, UNI W/ Pelvis 2-3 Views MR#: [id number] Acct: [id number] Name: DONNA RODRIGES Rep #: [id number] : 1985 M 39 From: Pet er Peer PCP: Dr. Aliza Roman MD Status: REG ER Study:HIP, UNI W/ Pelvis 2-3 Views Date of Ex am: 11/27/24 Exam# [id number] Ordering Dr: Krystina Bunch PROCEDURE: HIP, UNI [...] Advanced osteoarthritis of left hip. Reading Location[facility] CC: Dr. Aliza Roman MD; GUICHO Jarrell ~ Signals Intelligence Analyst: Signed [facility]04-06-2025 Radiology Diagnostic study note [facility] Imaging Services [address] [place] [address] Brain/Head without Contrast MR#: [id number] Acct: [id number] Name: DONNA RODRIGES Rep #: [id number] : 1985 M 39 From: Pet er Peer DO PCP: Dr. Aliza Roman MD Status: REG ER Study:Brain/Head without Contrast Date of Exa m: 11/27/24 Exam# [id number] Ordering Dr: Krystina Bunch PROCEDURE: BRAIN/HEAD WITHOUT CONTRAST 11/27/2024 REASON FOR EXAM: HEAD INJURY, POSSIBLE SEIZURE FISH CLEANER MACHINE TENDER shunt surgery. History of seizures TECHNIQUE: Head CT without intravenous contrast. Coronal and Sagittal reconstruction serieswere provided. One or more dose reduction techniques were used (e.g., Automated exposure control, adjustment of the mA and/or kV according to patient size, use of iterative reconstruction technique. RADIATION DOSE SUMMARY: CTDlvol: 44.99 mGy DLP: 796.11 mGycm COMPARISON: None. FINDINGS: Brain: Right parietal FISH CLEANER MACHINE TENDER shunt tube appears satisfactorily positioned. No ventriculomegaly. No mass, mass effect or midline shift. No intra-axial or extra-axial hemorrhage. CSF Spaces: Again FISH CLEANER MACHINE TENDER shunt tube in place. Ventricles and sulci are normal in size. Sinuses/Mastoids: Mucous retention cyst in the base of the left maxillary sinus. Mastoid air cells and remaining sinuses are clear. Bones: Unremarkable. CT/Brain/Head without Contrast IMPRESSION: No acute process detected. Reading Location: [facility] CC: Dr. Aliza Roman MD; GUICHO Jarrell ~ Signals Intelligence Analyst: Signed [facility]06-11-2024 Note ORIGINAL EXAMINATION: CT OF THE [...] Sign Date: 02/02/2024 3:05:07 PM Ordering Provider: [facility] [place] Discharge summary Author Zeny Dumont [facility] December 19, 2023 1:20am Note Date/Time December 18, 2023 11: 05pm [facility] Medical Records Department [address] [place] [address] Emergency Department Summary 12/18/23 MR#: [id number] Acct: [id number] Name: DONNA RODRIGES Rep #:[id number] : 1985 38 From: Zeny Dumont MD [...] controlled. He finished his last prescription of Penn Laird today and states he doesnot want to go greens picker his new prescription tomorrow because the [...] H/O eye surgery H/O hernia repair S/P FISH CLEANER MACHINE TENDER shunt Social History Smoking Status: Never smoker [...] % (Auto) 60.9 Lymph % (Auto) 27.8 [place] % (Auto) 7.9 Eos % (Auto) 2.0 [...] him a prescription for naproxen. He has Penn Laird and baclofen to greens picker at the pharmacy tomorrow. Return instructions [...] your Primary Care Provider. Call [facility] ([phone]) or report to the closest Emergency Room. Call 911 if necessary. 12/19/23 0120 <Electronically signed by Zeny Dumont MD> Cosigner Signature (if applicable): CC: Dr. Aliza Roman MD ~ Signed [facility] Work Phone: 1(218) 638-762204-13-2024 Discharge summary Author Romulo [facility] December 05, 2023 2:16pm Note Date/Time December 05, 2023 11: 23am [facility] Medical Records Department [address] [place] [address] Emergency Department Summary 12/05/23 MR#: [id number] Acct: [id number] Name: DONNA RODRIGES Rep #:[id number] : 1985 38 From: Romulo Estrella MD [...] H/O eye surgery H/O hernia repair S/P FISH CLEANER MACHINE TENDER shunt Social History Smoking Status: Never smoker [...] Ox 95 Oxygen Delivery Method Room Air [facility] Narrative Medical decision making narrative: In the [...] % (Auto) 57.5 Lymph % (Auto) 31.9 [place] % (Auto) 7.5 Eos % (Auto) 1.5 [...] Sl. Cloudy Urine pH 5.0 Ur Specific [place] 1.010 Urine Protein 30 H Urine Glucose [...] your Primary Care Provider. Call [facility] ([phone]) or report to the closest Emergency Room. Call 911 if necessary. 12/05/23 1416 <Electronically signed by Romulo Estrella MD> Cosigner Signature (if applicable): CC: Dr. Aliza Roman MD ~ Signed [facility] Work Phone: 1(301) 556-563303-28-2024 NoteHNO ID: [id number] Author: TORITO DUEÑAS PA-C Service: ? Author Type: Physician Maintenance Mechanic Helper Type: Progress Notes Filed: 11/19/2023 18:52 Note [...] Review of Systems: Reviewed and charted into [employer]. Physical Exam: PE reveals a male with [...] degenerative change. Maintained sacroiliac (more content not included)...[facility]03-25-2024 NoteHNO ID: [id number] Author: RICHIE LOUIS RT(R) Service: Radiology Author [...] PATIENT PRESENTS WITH AN IMPLANTABLE OR ATTACHED ENVIRONMENTAL JOURNALIST: No RADIOLOGY DEPARTMENT: General X-ray: Exam(s) Completed: Pelvis X-Ray: Pelvis with Hip Left PERIPHERAL IV DATA: Not applicable SIGNED BY: RT Shahrzad(R) November 16, 2023 10:28 [facility]03-25-2024 History of Present illness Narrative* Richie [...] PATIENT PRESENTS WITH AN IMPLANTABLE OR ATTACHED ENVIRONMENTAL JOURNALIST: No RADIOLOGY DEPARTMENT: General X-ray: Exam(s) Completed: Pelvis X-Ray: Pelvis with Hip Left PERIPHERAL IV DATA: Not applicable SIGNED BY: RT Shahrzad(R) November 16, 2023 10:28 AM [facility]24 NoteHNO ID: [id number] Author: SIMIN HENDRIX, ? Service: ? Author [...] palsy (HCC) DM2 (diabetes mellitus, type 2) ([facility]) Gout HTN (hypertension) Hydrocephalus with operating shunt ([facility]) Obesity hypoventilation syndrome ([facility]) Sleep apnea on BiPap Current Outpatient Medications [...] seen and evaluated. 2. (more content not included)...[facility]02-13-2024 NoteHNO ID: [id number] Author: CAMRYN MILAN LPN Service: ? Author Type: LICENSED NURSE Type: Progress Notes Filed: 10/06/2023 14:44 Note Text: AMB ROOMING INTAKE FLOWSHEET DATA Risk Screening Do you have concerns about personal safety or safety in the home?: No Patient presents with: Left Foot - New, Diabetic Foot Care Right Foot - New, Diabetic Foot Care [facility]24 NoteHNO ID: [id number] Author: TONI GONZALEZ RT(Juliano) Service: Radiology Author Type: Technologist [...] PATIENT PRESENTS WITH AN IMPLANTABLE OR ATTACHED ENVIRONMENTAL JOURNALIST: No RADIOLOGY DEPARTMENT: General X-ray: Exam(s) Completed: Lower Extremity X-Ray(s): Foot, Bilateral PERIPHERAL IV DATA: Not applicable SIGNED BY: RT King(R) October 06, 2023 12:37 [facility]02-13-2024 Instructions* Patient Instructions* Simin Hendrix [...] (or decreased sensation in your feet) a copy chaser should always cut your toenails. Be Careful [...] Go to your health care provider or copy chaser to treat these conditions. documented in [facility] History of Present illness Narrative* [...] palsy (HCC) DM2 (diabetes mellitus, type 2) ([facility]) Gout HTN (hypertension) Hydrocephalus with operating shunt ([facility]) Obesity hypoventilation syndrome ([facility]) Sleep apnea on BiPap Current Outpatient Medications [...] Care Camryn Milan LPN documented in [facility] History of Present illness Narrative* Toni Gonzalez, RT(R) - 10/06/2023 1:20 PM EST Radiology [...] PATIENT PRESENTS WITH AN IMPLANTABLE OR ATTACHED ENVIRONMENTAL JOURNALIST: No RADIOLOGY DEPARTMENT: General X-ray: Exam(s) Completed: Lower Extremity X- Ray(s): Foot, Bilateral PERIPHERAL IV DATA: Not applicable SIGNED BY: RT King(R) October 06, 2023 12:37 PM [facility] Author Sridhar Cardozo [facility] Note Date/Time January 09, 2025 7:19a m [facility] Medical Records Department [address] [facility] [place] [address] Pre-Anesthesia Evaluation 01/09/25 0718 MR#: [id number] Acct: [id number] Name: DONNA RODRIGES Rep #:[id number] : 1985 39 From: Sridhar Cardozo MD PCP: Dr. Aliza Roman MD Status:REG SDC Y Race: C Location: [place] [address] ASA Classification* ASA Classification ASA Classification: 3 [...] hip injection Anesthesia History Anesthesia History - casting carrier: Anesthesia History - casting carrier Hx Hospitalization No 03/17/24 08:06 Any Problems [...] take am of surgery PONV PONV - casting carrier: PONV - casting carrier Female HX of Motion Sickness HX of N/V After Surgery Non-Smoker Duration of Surgery greater than 60 minutes Number of Risk Factors PONV Score Height & Weight Height & Weight: Anesthesia: Height & Weight Height 5 ft 4 in 01/09/25 06:48 Weight: 159 kg 01/09/25 06:48 Body Mass Index (BMI) 60.1 01/09/25 06:48 Respiratory Assessment Respiratory Assessment - casting carrier: Respiratory Tract Infection Hx - casting carrier Hx Respiratory Tract Infection No 03/17/24 08:06 STOP Sleep Apnea STOP Sleep Apnea - casting carrier: STOP Sleep Apnea - casting carrier Hx Hypertension Yes: CONTROLLED WITH MEDS 03/17/24 [...] Tobacco Use History Tobacco Use History - casting carrier: Tobacco Use History - casting carrier Tobacco Use Non-smoker 02/27/22 14:09 Smoking Status Never smoker 11/27/24 11:04 Hx Tobacco Use No 03/17/24 08:06 Years Smoking Packs Smoked per Day Smoking Cessation Date was within the last 15 years Hx Smoking Cessation Date Hx Smoking Cessation Counseling Hematologic Medial History Hematologic Hx - casting carrier: 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 Specify any problems Hx of Preganancy in last 3 Months Nurse Filling Out Transfusion & Questions: Date: Time: Patient unable to answer at this time (ie. confused, unrespo /Reproduction History /Reproductive History - casting carrier: /Reproductive Hx- casting carrier Hx Now Gestational Age (in weeks): EDC: [...] Unknown Rx Nancy 3 Plus Sensor device) 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,personal injury litigation paralegal,cont #1 ea 12/19/24 Unknown Rx (FreeStyle Nancy 3 Holly) celecoxib 200 mg capsule 200 mg PO [...] H/O hernia repair H/O eye surgery S/P FISH CLEANER MACHINE TENDER shunt Social History Smoking Status: Never smoker Review of Systems (Anesthesia) ROS Narrative System reviewed and no additional complaints, except as documented. 01/09/25 0719 <Electronically signed by Sridhar Cardozo MD > Date _ Sridhar Cardozo MD Cosigner Signature: Date CC: ~ Signed [facility] Work Phone: Consult note* Clinical Note Date No Information [facility] Work Phone: Consult note [facility] Medical Records Department [address] [place] [address] Anesthesia Postop Eval II 06/12/25 1205 MR#: [id number] Acct: [id number] Name: DONNA RODRIGES Rep #:[id number] : 1985 40 From: Sridhar Cardozo MD PCP: Dr. Aliza Roman MD Status:[facility] Y Race: C Location: [facility] Anesthesia Postop Eval I Sum Postop Eval Completion status Anesthesia document: Postop Eval 1 completed: Yes Anesthesia Postop Eval I Summary Anesthesia Postop Eval I Summary: Anesthesia Postop Eval I: Assessment Summary Airway patent Yes 06/12/25 08:56 MANAGER WILLOW.CSIR Spontaneous unlabored Yes 06/12/25 08:56 MANAGER WILLOW.CSIR respirations Mental status nausea No 06/12/25 08:56 MANAGER WILLOW.CSIR Vomiting No 06/12/25 08:56 MANAGER WILLOW.CSIR Anesthesia Postop Eval I: Fluid Summary Crystalloid volume administer 100 06/12/25 08:56 MANAGER WILLOW.CSIR (ml) Colloids volume administered ( ml) Blood Product volume administered (ml) Total IV fluid infused 100 06/12/25 08:56 MANAGER WILLOW.CSIR Anesthesia Postop Eval I: Summary Notes Anesthesia Complication No 06/12/25 08:56 MANAGER WILLOW.CSIR Anesthesia Complication Comment: Post-operative progress note Anesthesia: Postop Eval II Evaluation Mental status: Awake Pain Level: 2 nausea: No Vomiting: No 06/12/25 1205 > Date _ Sridhar Cardozo MD Cosigner Signature: Date CC: ~ [facility]igned [facility] Note Date/Time June 12, 2025 9 :57am [facility] Medical Records Department [address] [place], [place] [address] [address] Anesthesia Postop Eval I 06/12/25 0856 MR#: [id number] Acct: [id number] Name: DONNA RODRIGES Mariana Rep #:[id number] : 1985 40 From: Diane Lee CRNA PCP: Dr. Aliza Roman MD Status:REG SD Y Race: C Location: [place] [address] Anesthesia: Postop Eval I Current Vital Signs Temperature: 98 F Pulse Rate: 98 Blood Pressure: 142/78 Respiratory Rate: 18 Pulse Ox: 99 Assessment Airway patent: Yes Spontaneous unlabored respirations: Yes nausea: No Vomiting: No Anesthesia Complication: No Fluid Hydration Crystalloid volume administer (ml): 100 Total IV fluid infused: 100 Progress Note Anesthesia document: Postop Eval 1 completed: Yes 06/12/25 0857 <Electronically signed by Diane lobato MANAGER WILLOW> Date _ Diane Lee CRNA Cosigner Signature: Date CC: ~ Signed [facility] Work Phone: Consult note Author Sridhar Cardozo [facility] Note Date/Time June 12, 2025 1 :05pm [facility] Medical Records Department [address] [place] [address] Anesthesia Postop Eval II 06/12/25 1205 MR#: [id number] Acct: [id number] Name: DONNA RODRIGES Rep #:[id number] : 1985 40 From: Sridhar Cardozo MD PCP: Dr. Aliza Roman MD Status:DEP [facility] Y Race: C Location: [facility] Anesthesia Postop Eval I Sum Postop Eval Completion status Anesthesia document: Postop Eval 1 completed: Yes Anesthesia Postop Eval I Summary Anesthesia Postop Eval I Summary: Anesthesia Postop Eval I: Assessment Summary Airway patent Yes 06/12/25 08:56 MANAGER WILLOW.CSIR Spontaneous unlabored Yes 06/12/25 08:56 MANAGER WILLOW.CSIR respirations Mental status nausea No 06/12/25 08:56 MANAGER WILLOW.CSIR Vomiting No 06/12/25 08:56 MANAGER WILLOW.CSIR Anesthesia Postop Eval I: Fluid Summary Crystalloid volume administer 100 06/12/25 08:56 MANAGER WILLOW.CSIR (ml) Colloids volume administered ( ml) Blood Product volume administered (ml) Total IV fluid infused 100 06/12/25 08:56 MANAGER WILLOW.CSIR Anesthesia Postop Eval I: Summary Notes Anesthesia Complication No 06/12/25 08:56 MANAGER WILLOW.CSIR Anesthesia Complication Comment: Post-operative progress note Anesthesia: Postop Eval II Evaluation Mental status: Awake Pain Level: 2 nausea: No Vomiting: No 06/12/255 <Electronically signed by Sridhar Cardozo MD > Date _ Sridhar Cardozo MD Cosigner Signature: Date CC: ~ Signed [facility] Work Phone: Discharge summary* Clinical Note Date No Information [facility] Work Phone: Evaluation + Plan note No data available for this section [facility] Evaluation + Plan note Future Appointments Appointment Date:02/02/2024 01:30:00 PM Scheduled Provider: Location:[facility] Appointment Type:CT Head or Brain w/o Contrast Future Scheduled Tests Radiology* XR Shuntogram 01/19/24 * CT Head or Brain w/o Contrast 02/02/24 * XR Skull Minimum 4 Views 01/19/24 [facility] Evaluation note* Diagnosis Onset Date Resolution Status Obesity hypoventilation syndrome acute Bronchial asthma chronic Super obesity chronic History of cerebral palsy ch ronic Congenital dysplasia of left hip noneactive [facility] Work Phone: Evaluation note* Diagnosis Onset Date Resolution Status Hypoxia acute Obesity hypoventilation syndrome acute Bronchial asthma [facility] Work Phone: Evaluation note* Diagnosis Onset Date Resolution Status Obesity hypoventilation syndrome acute Bronchial asthma chronic Super obesity chronic History of cerebral palsy ch ronic Cerebral palsy noneactive Congenital dysplasia of left hip noneactive [facility] Work Phone: Evaluation note* Diagnosis Onset Date Resolution Status Obesity hypoventilation syndrome acute Bronchial asthma chronic Super obesity chronic Hip pain acute 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 acute [facility] Work Phone: Evaluation note* Diagnosis Onychomycosis- Primary Dermatophytosis of nail Pain in toe of left foot Pain in limb Pain in toe of right foot Pain in limb Callus of foot Corns and callosities [facility] Diagnosis Pain Generalized pain [facility] Diagnosis Pain- Primary Generalized pain [facility] encounter [facility] Diagnosis Pain in left hip- Primary Pain in joint, pelvic region and thigh [facility] Pain Generalized pain [facility] Diagnosis Onset Date Resolution Status Hip pain acute 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 acute Obesity hypoventilation syndrome acute Bronchial asthma chronic Super obesity chronic [facility] Work Phone: Evaluation noteNo assessment information available [facility] Work Phone: Evaluation note* Diagnosis Onset Date Resolution Status Admit Date Hyperglycemia due to type 2 diabetes mellitus inactive June 15, 2025 9:54pm Inability to ambulate due to left hip inactive June 15 9:54pm Intractable pain inactive June 15, 2025 9:54pm Leukocytosis inactive May 9:54pm Morbid obesity with BMI of 60.0-69.9, adult inactive June 15, 025 9:54pm Obesity inactive June 15, 2025 9:54pm 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 inactive May 252024 9:54pm [facility] Work Phone: Evaluation note* Type Assessment Date No Information [facility] Work Phone: History and physical note* Clinical Note Date No Information [facility] Work Phone: Hospital Discharge instructions No data available for this section [facility] Hospital Discharge instructions Additional Instructions Call your pain management physician on Thursday. You can continue Tylenol up to 3 g / 3000 mg a day. Continue your tramadol as previously directed. You have evidence of spinal stenosis on your CT scan.[facility] Work Phone: Hospital Discharge instructions Additional Instructions Follow-up with your PCP and return for any worsening symptoms.[facility] Work Phone: Hospital Discharge instructionsAdditional Instructions The name of the bicycle sharps are [employer] and at [employer] shopGerman Hospital Work Phone: Instructions* Date Instruction Additional Infor mation No Information [facility] Work Phone: Progress note No data available for this section [facility] Progress note* Clinical Note Date No Information [facility] Work Phone: Reason for referral (narrative)* Diagnostic Procedure Only (Routine) - Authorized Specialty Diagnoses / Procedures Referred By Contac t Referred To Contact XR IMAGING Diagnoses Pain Procedures XR HIP GENERAL 3V PELV/AP/LAT LEFT RADEX HIP UNILATERAL WITH PELVIS 2-3 VIEWS Torito Dueñas PA-C [address] [place] [id number] Xr Imaging [place] [address] Referral ID Status Reason Start Date Expiration Date Visits Requested Visits Authorized [id number] Authorized Auto-Generat ed Referral 10/13/2023 11/11/2024 1 1 [facility] for referral (narrative)* Diagnostic Procedure Only (Routine) - Pending Review Specialty Diagnoses / Procedures Referred By Contac t Referred To Contact XR IMAGING Diagnoses Pain in left hip Procedures XR HIP GENERAL 3V PELV/AP/LAT LEFT RADEX HIP UNILATERAL WITH PELVIS 2-3 VIEWS Philippe Lamb MD [address] [place] [address] Xr Imaging [place] [address] Referral ID Status Reason Start Date Expiration Date Visits Requested Visits Authorized [id number] Pending Review Auto-Generat ed Referral 10/14/2023 11/11/2024 1 1 [facility] for referral (narrative)No reason for referral information availableGerman Hospital Work Phone: Reason for referral (narrative)* Reason For Referral No Information [facility] Reason for visit Narrative* Diagnostic Procedure Only (Routine) - Closed Specialty Diagnoses / Procedures Referred By Contac t Referred To Contact XR IMAGING Diagnoses Pain Procedures XR FOOT GENERAL 3V AP/LAT/OBL BILATERAL RADEX FOOT COMPLETE MINIMUM 3 VIEWS Simin Hendrix [address] [place] [address] Xr Imaging [place] [address] Referral ID Status Reason Start Date Expiration Date V isits Requested Visits Authorized [id number] Closed Auto-Generate d Referral 09/18/2023 10/17/2024 1 1 [facility]* Diagnostic Procedure Only (Routine) - Closed Specialty Diagnoses / Procedures Referred By Stephen vega Referred To Contact XR IMAGING Diagnoses Pain Procedures XR HIP GENERAL 3V PELV/AP/LAT LEFT RADEX HIP UNILATERAL WITH PELVIS 2-3 VIEWS Torito Dueñas PA-C [address] [address] Xr Imaging [place] [address] Referral ID Status Reason Start Date Expiration Date V isits Requested Visits Authorized [id number] Closed Auto-Generate d Referral 10/13/2023 11/11/2024 1 1 [facility] Chief Complaint and Reason for [...] 23, 2025 2:35p m Obesity hypoventilation syndrome Shayy 2n d, 2025 2:35pm Super obesity January 23, 2025 2:35p m Benign hypertension February 06, 2025 12:5 8pm Hyperlipemia February 06, 2025 12:5 8pm Obesity February 06, 2025 12:5 8pm Type II diabetes mellitus February 06 12:58pm Chief Complaint Admit Date lower ex April 23, 2025 4: 29pm Injection, Hip June 12, 2025 6 :48am LEFT HIP PAIN W. INABILITY TO AMBULATE O ctober 2024 9:54pm LEFT HIP PAIN W. INABILITY TO AMBULATE O ctober 2024 1:21pm Reason for Visit Admit Date Hyperglycemia due to type 2 diabetes michael litus June 15, 2025 9:54pm Inability to ambulate due to left hip Oc tober 2024 9:54pm Intractable pain June 15, 2025 9 :54pm Leukocytosis June 15, 2025 9 :54pm Morbid obesity with BMI of 60.0-69.9, ad ult June 15, 2025 9:54pm Obesity June 15, 2025 9 :54pm 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 June 15, 2025 9:54pm Family History No Family History Records Found [...] Age At Onset No Information Advance Directives No Advanced Directives Records Found Advance Directive Response Recorded Date/ Time Advance Directives Yes April 11:10am Living Will No February 14, 2022 1:41pm Power of Supervisor Data Processing No February 14 1:41pm Advance Directive Response Recorded Date/ Time Advance Directives Yes February 27 2:09pm Living Will No May 02 9:07pm Power of Supervisor Data Processing No May 02, 2022 9:07pm Advance Directive Response Recorded Date/ Time Advance Directives Yes Jana 7th, 202 2 2:09pm Living Will No January 13, 2023 2 :25pm Power of Supervisor Data Processing No January 13, 2023 2:25pm Advance Directive Response Recorded Date/ Time Advance Directives Yes February 27 2:09pm Living Will No February 15, 2023 10:20am Power of Supervisor Data Processing No February 15 10:20am Advance Directive Response Recorded Date/ Time Advance Directives Yes February 27 1:09pm Living Will No February 15, 2023 9:20am Power of Supervisor Data Processing No February 15 9:20am Advance Directive Response Recorded Date/ Time Advance Directives Yes February 27 2:09pm Living Will No December 05, 2023 11:10am Power of Supervisor Data Processing No December 04 11:10am Advance Directive Response Recorded Date/ Time Advance Directives Yes February 27 2:09pm Living Will No December 18, 2023 10:28pm Power of Supervisor Data Processing No December 17 10:28pm Advance Directive Response Recorded Date/ Time Advance Directives Yes February 27 2:09pm Living Will No December 23, 2023 5: 08pm Power of Supervisor Data Processing No December 23, 2023 5:08pm Advance Directive Response Recorded Date/ Time Living Will No October 28, 2024 2:17pm Power of Supervisor Data Processing No October 28 2:17pm Advance Directives Yes February 27 1:09pm Advance Directive Response Recorded Date/ Time Living Will No October 28, 2024 3:17pm Do you have a Healthcare Power of Supervisor Data Processing? No October 28, 2024 3:17pm Living Will No November 27, 2024 11:04am Do you have a Healthcare Power of Supervisor Data Processing? No November 27, 2024 11:04am Advance Directives Yes February 27 2:09pm Advance Directive Response Recorded Date/ Time Do you have a Healthcare Power of Supervisor Data Processing? No April 23, 2025 4:33pm Advance Directives Yes February 27 2:09pm Directive Yes / No Effective Date File Name No Information Advance Directive Response Recorded Date/ Time Do you have a Healthcare Power of Supervisor Data Processing? No April 23, 2025 3:33pm Do you have a Healthcare Power of Supervisor Data Processing? No June 01, 2025 2:29pm Do you have a Healthcare Power of Supervisor Data Processing? No June 15, 2025 9:28pm Advance Directives Yes February 27 1:09pm Summary Purpose Additional Source Comments Goals (unrecognized [...] Provider, Referrin g Provider Active Dania Norris HOOD MAKER, HOOD MAKER-C Attending Provider Active Team Status: Inactive Member [...] MD Attending Provider, Referring Pr ovider Active Hydro Operator Relationship Specialty Start Date End Date Denny Stevens MD [address] [place] [address] PCP - General Family Medicine 07/21/22 Denny Santos MD [address] [place] [id number] Referring Sports Medicine 08/31/23 Hydro Operator Relationship Specialty Start Date End Date Denny Stevens MD [address] [place], [place] [id number] PCP - General Family Medicine 07/21/22 Denny Santos MD [address] [place] [address] 5 [place], [place] [id number] Referring Sports Medicine 08/31/23 Hydro Operator Relationship Specialty Start Date End Date Denny Stevens MD [address] [place], [place] [address] PCP - General Family Medicine 07/21/22 Denny Santos MD [address] [place] [address] [id number] Referring Sports Medicine 08/31/23 Hydro Operator Relationship Specialty Start Date End Date Denny Stevens MD [address] [place], [place] [id number] PCP - General Family Medicine 07/21/22 Denny Santos MD [address] [place] [address] 5 [place], [place] [id number] Referring Sports Medicine 08/31/23 Team Status: Inactive [...] End: January 23, 2025 Dania Norris NP HOOD MAKER-C Attending Provider Active Start: January 23, 2025 [...] End: January 23, 2025 Dania Norris NP HOOD MAKER-C Attending Provider Active Start: January 23, 2025 [...] (start - stop) Status Members No Information Team Status: Active Member Role/Relationship Status Dates Dr. Aliza Roman MD Primary care physician Active Team Status: Inactive Member Role/Relationship Status Dates Dr. Aliza Roman MD Primary care physician Active Start: April 23, 2025 End: April 23, 2025 Dr. Dre Johnson MD Attending physician Active St art: April 23, 2025 End: April 23, 2025 Dr. Dre Johnson MD Emergency Department Physician Acti ve Start: April 23, 2025 End: April 23, 2025 Team Status: Inactive Member Role/Relationship Status Dates Dr. Aliaz Roman MD Primary care physician Active Start: June 12, 2025 End: June 12, 2025 Dr. Carlos Ibarra MD Attending physician Active Start: June 12, 2025 End: June 12, 2025 Dr. Carlos Ibarra MD Referring Provider Active Start: June 12, 2025 End: June 12, 2025 Team Status: Inactive Member Role/Relationship Status Dates Dr. Aliza Roman MD Primary care physician Active Start: June 15, 2025 End: June 16, 2025 Romulo Estrella MD Emergency Department Physician Active Start: June 15, 2025 End: June 16, 2025 Dr. Flaco Hardin DO Admitting physician Active Start: June 15, 2025 End: June 16, 2025 Dr. Flaco Hardin DO Nurse Practitioner Active Start: June 15, 2025 End: June 16, 2025 Dr. Hector Harris DO Attending physician Active Start: June 15, 2025 End: June 16, 2025 Team Status: Active Member Role/Relationship Status Dates Dr. Aliza Roman MD Primary care physician Active Start: June 16, 2025 Romulo Estrella MD Emergency Department Physician Active Start: June 16, 2025 Dr. Flaco Hardin DO Admitting physician Active Start: June 16, 2025 Dr. Flaco Hardin DO Nurse Practitioner Active Start: June 16, 2025 Dr. Hector Harris DO Attending physician Active Start: June 16, 2025 Dr. Hector Harris DO Nurse Practitioner Active Start: June 16, 2025 Source Comments (unrecognize d section and content) In the event this informatio n is protected by the Federal Confidentiality of Alcohol and Drug Abuse Patient Records regulations: The Federal rules restrict any use of the information to criminally investigate or prosecute any alcohol or drug abuse patient.[facility] the event this information is protected by the Federal Confidentiality of Alcohol and Drug Abuse Patient Records regulations: The Federal rules restrict any use of the information to criminally investigate or prosecute any alcohol or drug abuse patient.[facility] the event this information is protected by the Federal Confidentiality of Alcohol and Drug Abuse Patient Records regulations: The Federal rules restrict any use of the information to criminally investigate or prosecute any alcohol or drug abuse patient.[facility] the event this information is protected by the Federal Confidentiality of Alcohol and Drug Abuse Patient Records regulations: The Federal rules restrict any use of the information to criminally investigate or prosecute any alcohol or drug abuse patient.[facility] the event this information is protected by the Federal Confidentiality of Alcohol and Drug Abuse Patient Records regulations: The Federal rules restrict any use of the information to criminally investigate or prosecute any alcohol or drug abuse patient.[facility] Reason for Visit (unrecogniz ed section and content) Reason Comments New Diabetic Foot Care (unrecognized sect ion and content) No Status Records FoundNo Status Records FoundNo Status Records FoundNo Status Records Found INFORMATION SOURCE (unrecogn ized section and content) DATE CREATED AUTHOR 11/20/2023 [facility] DATE CREATED AUTHOR AUTHOR'S ORGANIZ ATION 02/04/2024 [facility] ([place]) DATE CREATED AUTHOR AUTHOR'S ORGANIZ ATION 06/29/2025 [facility] DATE CREATED AUTHOR AUTHOR'S ORGANIZ ATION 07/03/2025 [facility] FOR RECORDS PERTAINING TO PATIENTS WHO ARE [...] BE BASED ON THE PRIMARY CLINICAL RECORDS. [employer] provides no warranty or guarantee of the accuracy or completeness of information in this document.
--- NOTE | 2025-07-05 23:38 | RAD_ITS ---
PROCEDURE: CHEST 1 VIEW (PORTABLE) 07/05/2025 REASON FOR EXAM: CHEST PAIN TECHNIQUE: Frontal view of the chest. COMPARISON: 02/14/2022 FINDINGS: Lungs/Pleura: Clear. No pneumothorax or sizable pleural effusion. Heart/Mediastinum: Within normal limits. Bones/Soft tissues: No significant osseous abnormality. Right-sided ventriculoperitoneal shunt catheter traversing the right hemithorax partially imaged. RAD/Chest 1 View (Portable) IMPRESSION: No evidence of acute cardiopulmonary disease. Reading Location: [id number]
[2025-07-06] LABS: Hematocrit 39.8 % (40-54); Hemoglobin 13.1 g/dL (13.0-16.5); Immature Granulocytes Count 0.160 X10^3/uL (0.0-0.0); Mean Corp Hgb Conc 32.9 g/dL (32-36); Mean Corpuscular Volume 86.3 fL (80-94); Mean Platelet Vol. 10.4 fl (6.2-12.0); NRBC Flagged by Analyzer 0 % (0-5); Platelet Count 223 K/mm3 (150-450); RBC Distribution Width CV 14.9 % (11.6-14.6); RBC Distribution Width SD 46.8 fl (35.1-43.9); Red Blood Count 4.61 M/mm3 (4.6-6.2); White Blood Count 9.0 K/mm3 (4.4-11.0)
[2025-07-06 00:10] LABS: Troponin T High Sensitivity 12 ng/L (<=22)
[2025-07-06 00:14] LABS: Anion Gap 13 (5-15); BUN 17 mg/dL (4-19); BUN/Creat Ratio 28.2 RATIO (10-20); Calcium,Total 9.2 mg/dL (7.6-11.0); Carbon Dioxide 24.8 mmol/L (21.0-32.0); Chloride 101 mmol/L (98-108); Estimated Creatinine Clearance 220.00 ml/min (50-250); Glucose 208 mg/dL (70-99); Potassium 4.2 mmol/L (3.3-5.1); Pro- Brain NATRIURETIC PEPTIDE < 36 pg/mL (<=450)
--- NOTE | 2025-07-06 00:45 | EX.ED.DYSGE1 ---
HPI History of Present Illness Chief Complaint: Edema Narrative Narrative: Patient was seen and examined after presenting to ED for evaluation for shortness of breath and chest pain that he is having I actually saw this patient earlier today for right lower extremity swelling that he was having he had a negative DVT study patient went home was taking additional Lasix called his PCP because he started noticing some mild chest pain and some shortness of breath and they advised that he come to the ER again for evaluation. Patient was describing it less like chest pain and more like heartburn which he has. [facility] Medical History Leukocytosis Hyperglycemia due to type 2 diabetes mellitus Morbid obesity with BMI of 60.0-69.9, adult Inability to ambulate due to left hip Intractable pain Obesity Wears glasses Alcohol use Arthritis Uses wheelchair High cholesterol Restless legs Seizures History of edema BiPAP (biphasic positive airway pressure) dependence On home oxygen therapy ROBERT treated with BiPAP Cerebral palsy Anxiety Chronic cough Diabetes Non-smoker History of echocardiogram History of stress test 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 Seizure disorder Depression Hypertension History of bronchitis History of pneumonia GERD (gastroesophageal reflux disease) Chest pain Vertigo Super obesity Bronchial asthma Gout Type II diabetes mellitus History of cerebral palsy Obstructive sleep apnea Benign hypertension Home Medications Medication Instructions Recorded Last Taken Type baclofen 20 mg tablet 20 mg PO Q12H muscle spasms 06/25/18 06/15/25 History pantoprazole 40 mg tablet,delayed 40 mg PO DAILY gi 06/25/18 06/15/25 History release furosemide 20 mg tablet 40 mg PO BID diuretic 10/13/21 06/13/25 History colchicine 0.6 mg tablet 0.6 mg PO PRN gout 12/02/21 08/22/24 History albuterol sulfate 2.5 mg/3 mL 2.5 mg (3 mL) inhalation Q4H PRN 01/05/23 Unknown Rx (0.083 %) solution for nebulization shortness of breath or wheezing #180 mL albuterol sulfate 90 mcg/actuation 2 inh inhalation Q4H PRN PRN Sob 01/05/23 Unknown Rx aerosol inhaler &/Or Wheezing #8.5 grams montelukast 10 mg tablet 10 mg PO DAILY allergies #90 tabs 01/05/23 06/15/25 Rx spacer #1 ea 01/05/23 Unknown Rx potassium citrate 10 mEq (1,080 10 meq PO DAILY 07/23/23 06/15/25 History mg) tablet,extended release allopurinol 300 mg tablet 300 mg PO BID gout 12/19/24 06/15/25 History 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,legal word processor,cont #1 ea 12/19/24 Unknown Rx (FreeStyle Nancy 3 [place]) rosuvastatin 5 mg tablet 5 mg PO QDAY #30 tabs 12/19/24 06/14/25 Rx budesonide-formoterol HFA 160 2 inh inhalation BID #1 ea 01/23/25 06/15/25 Rx mcg-4.5 mcg/actuation aerosol inhaler (Symbicort) levetiracetam 500 mg tablet 500 mg PO BID seizures 01/23/25 06/15/25 History nebivolol 10 mg tablet 10 mg PO DAILY heart 01/23/25 06/15/25 History 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 sensor (FreeStyle #2 ea 02/06/25 Unknown Rx Nancy 3 Plus Sensor device) insulin regular hum U-500 conc 500 See Rx Instructions subcut TIDWMEAL 06/01/25 06/13/25 History unit/mL(3 mL) subcut pen (Humulin R U-500 (Conc) Insulin Kwikpen) tirzepatide 5 mg/0.5 mL 5 mg subcut .tuesdays06/15/25 06/13/25 History subcutaneous pen injector (Mounakashro) BIPAP -Bilevel Positive Airway ROBERT 06/16/25 Unknown History Pressure ([facility] INFORMATIONAL USE ONLY) OXYGEN - Supplemental ([facility] 06/16/25 Unknown History INFORMATIONAL USE ONLY) celecoxib 200 mg capsule 200 mg PO BIDCM #1 cap 06/16/25 06/15/25 Rx oxycodone 5 mg tablet 15 mg (3 x 5 mg) PO TID pain 7 06/16/25 Unknown Rx days #63 tabs Allergy/AdvReac Type Severity Reaction Status Date / Time duloxetine Allergy Severe Other Verified 07/05/25 12:17 animal dander Allergy Chest Verified 07/05/25 12:17 tightness grass pollen Allergy Other Verified 07/05/25 12:17 house dust Allergy Other Verified 07/05/25 12:17 pollen extracts Allergy Other Verified 07/05/25 12:17 Family History Father Chronic a-fib CVA (cerebral vascular accident) Mother ROBERT (obstructive sleep apnea) Breast cancer Grandfather Cancer bladder Other Diabetes Hypertension Thyroid disorder Surgical History History of surgery History of surgery H/O hernia repair H/O eye surgery S/P PROJECT ENG shunt Social History household members: spouse Smoking Status: Never smoker ROS ROS ED ROS Narrative Pertinent Positives: Acid reflux type chest pain shortness of breath history of diabetes Pertinent Negatives: Chest pressure sharpness or changes in position fevers nausea vomiting diarrhea black or bloody stools The remainder of review of systems negative unless otherwise stated in the HPI above. Systems reviewed including constitutional, psychiatric, cardiovascular, respiratory, integument, HENT, gastrointestinal. EXAM Physical Exam Narrative Exam Narrative: Afebrile hemodynamically stable does not appear toxic or in distress he is normocephalic and atraumatic. Patient is oxygenating well on room air. Abdomen soft nontender nondistended no palpable pulsatile mass. He has intact and equal MSPs in his extremities. Normal heart lung sounds. No pericardial friction rub. Const Vital Signs: 07/05/25 22:46 07/05/25 23:13 07/05/25 23:36 Temperature 97.8 F Temperature Source Oral Pulse Rate 95 96 Respiratory Rate 16 96 H Blood Pressure 179/75 H Blood Pressure Mean 109 Pulse Ox 96 97 Oxygen Delivery Method Room Air Room Air 07/06/25 01:00 Temperature Temperature Source Pulse Rate 89 Respiratory Rate 20 H Blood Pressure 117/57 L Blood Pressure Mean 77 Pulse Ox 98 Oxygen Delivery Method Room Air MDM MDM MDM Narrative Medical decision making narrative: Nursing notes, triage notes, available previous documentation, and vital signs were reviewed. Any discrepancies noted were addressed. Differential Diagnoses: Low suspicion for ACS or PE or aortic etiology or pericarditis or myocarditis Labs Reviewed: No leukocytosis leukopenia anemia electrolyte abnormality renal insufficiency troponin is 12 with a proBNP of less than 36 delta troponin is pending Imaging Reviewed: Personally reviewed and interpreted by me: Chest x-ray no pneumonia edema 1 mediastinum ordered thoraces EKG: Sinus rhythm rate of 99 he does have a right bundle branch block no ST segment elevation of concern. EKG interpretation is noted and agreed to in the EMR. The interpretation of this patient's EKG contributed directly to the care and management of this patient. Previous Documentation Reviewed: None available or applicable at this time. ED Course: Patient presenting with chest pain and shortness of breath was just seen earlier today did not have a DVT in regards to his right lower extremity edema and pain patient's workup so far unremarkable delta troponin is pending barring any significant changes with the delta troponin patient can follow-up again outpatient with return precautions and follow-up recommendations. Patient is pending delta troponin which has been endorsed oncoming physician plan for discharge barring any significant changes This note was made utilizing voice recognition software. All attempts were made to correct spelling or other errors prior to note completion. However, due to the fast-paced nature of emergency medicine, some errors may still be present. Lab Data Labs: Laboratory Results - last 24 hr 07/05/25 23:30 WBC 9.0 RBC 4.61 Hgb 13.1 Hct 39.8 L MCV 86.3 MCH 28.4 MCHC 32.9 RDW Std Deviation 46.8 H RDW Coeff of Kusum 14.9 H Plt Count 223 MPV 10.4 Immature Gran % (Auto) 1.800 H Neut % (Auto) 63.2 Lymph % (Auto) 23.6 [place] % (Auto) 7.0 Eos % (Auto) 3.7 Baso % (Auto) 0.7 Absolute Neuts (auto) 5.7 Absolute Lymphs (auto) 2.12 Nucleated RBC % 0 Sodium 139 Potassium 4.2 Chloride 101 Carbon Dioxide 24.8 Anion Gap 13 BUN 17 Creatinine 0.62 L Estim Creat Clear Calc 220.00 Est GFR (MDRD) Non-Af 123 BUN/Creatinine Ratio 28.2 H Glucose 208 H Calcium 9.2 Troponin T High Sens 12 NT pro BNP II < 36 Radiography Diagnostic Testing: Clinical Impression(s) from Imaging Studies Chest X-Ray 07/05/25 23:38 IMPRESSION: No evidence of acute cardiopulmonary disease. Reading Location: [facility] Discharge Plan Triage Chief Complaint: Edema ED Provider: Luna Esparza Dx/Rx/DC Orders Clinical Impression: Indigestion, Shortness of breath, Chest pain of uncertain etiology, History of diabetes mellitus Instructions: ED Chest Pain, Uncertain Cause Prescriptions: No Action colchicine 0.6 mg tablet 0.6 mg PO PRN Patient Comments: take 1 tablet by mouth every 6 hours if needed for GOUT FLARE albuterol sulfate 2.5 mg /3 mL (0.083 %) solution for nebulization 2.5 mg inhalation Q4H PRN (Reason: shortness of breath or wheezing) Qty: 180 11RF Patient Comments: has not taken to date, on standby albuterol sulfate 90 mcg/actuation HFA aerosol inhaler 2 inh inhalation Q4H PRN PRN (Reason: Sob &/Or Wheezing) Qty: 8.5 11RF Patient Comments: has not taken, on standby montelukast 10 mg tablet 10 mg PO DAILY Qty: 90 3RF (DME) spacer See Rx Instructions .ROUTE .MEDSUPPLY Qty: 1 0RF Rx Instructions: As directed potassium citrate 10 mEq (1,080 mg) tablet extended release 10 meq PO DAILY Patient Comments: TAKE 1 TABLET BY MOUTH EVERY DAY (DME) FreeStyle Nancy 3 [place] Misc See Rx Instructions .Route Qty: 1 0RF Rx Instructions: As directed rosuvastatin 5 mg tablet 5 mg PO QDAY Qty: 30 5RF budesonide-formoterol [Symbicort] 160-4.5 mcg/actuation HFA aerosol inhaler 2 inh inhalation BID Qty: 1 11RF Rx Instructions: administer with spacer, rinse mouth after each use (DME) FreeStyle Nancy 3 Plus Sensor Device See Rx Instructions .Route Qty: 2 5RF Rx Instructions: 1 sensor 15 q days allopurinol 300 mg tablet 300 mg PO BID Patient Comments: gout nebivolol 10 mg tablet 10 mg PO DAILY Patient Comments: blood pressure baclofen 20 MG tablet 20 mg PO Q12H pantoprazole 40 MG tablet 40 mg PO DAILY levetiracetam 500 mg tablet 500 mg PO BID Patient Comments: seizure furosemide 20 MG tablet 40 mg PO BID Patient Comments: Diuretic (water pill) Humulin R U-500 (Conc) Kwikpen 500 unit/mL (3 mL) insulin pen See Rx Instructions subcut TIDWMEAL Rx Instructions: SLIDING SCALE subcutaneously 3 times per day with meals; Mounjaro 5 mg/0.5 mL pen injector 5 mg subcut .tuesdays oxycodone 5 mg tablet 15 mg PO TID 7 Days Qty: 63 0RF Rx Instructions: two-three tid for pain BIPAP -Bilevel Positive Airway Pressure ([facility] INFORMATIONAL USE ONLY) Patient Comments: DME: Sha Pt is unaware of settings however knows he has a 2L oxygen bleed in OXYGEN - Supplemental ([facility] INFORMATIONAL USE ONLY) Patient Comments: DME: desiree Dalton CM not patient wear 2lpm at rest and with exertion as needed. celecoxib 200 mg capsule 200 mg PO BIDCM Qty: 1 0RF Rx Instructions: Increase your Celebrex to 1 twice a day Primary Care Provider: Aliza Roman Referrals: Aliza Roman MD [Primary Care Provider, [facility]] Activity Restrictions/Additional Instructions: Be sure to follow-up with your primary care doctor you can always come back if you are worse Print Language: Maori Disposition Disposition: Home, Self Care D/C Safety Score for UGIB Assessment Omayra-Blatchford Bleeding Score (GBS): Stratifies upper GI bleeding patients who are "low-risk" and candidates for outpatient management. Hemoglobin, BUN, Recent Vital Signs: Hgb 13.1 g/dL (13.0-16.5) 07/05/25 23:30 BUN 17 mg/dL (4-19) 07/05/25 23:30 Pulse Rate 89 Blood Pressure 117/57 Score Interpretation: Score of 0: A GBS of 0 is a “Low Risk” GI bleed, and is highly sensitive (99.6% in a 2007 retrospective study) for predicting which patients did not require any “medical intervention”: blood transfusion, endoscopy, or surgery. This was confirmed in a 2009 Lanc study where patients with a score of 0 were actually discharged and had no GI bleeding mortality at 6 month followup Score above 0: A GBS greater than zero suggests a “High Risk” GI bleed that is likely to require “medical intervention”: transfusion, endoscopy, or surgery. A higher GBS also correlated with a higher likelihood of needing intervention Scores >/= 6 are associated with >50% risk of needing intervention D/C Safety Score for LGIB Assessment Assessment Tool: Readmission and adverse event risk in patients with acute lower GI bleeding. Hemoglobin and Recent Vital Signs: Hgb 13.1 g/dL (13.0-16.5) 07/05/25 23:30 Pulse Rate 89 07/06/25 01:00 Blood Pressure 117/57 07/06/25 01:00 Score Interpretation: Probability Percentage of safe discharge (absence of rebleeding, blood transfusion, therapeutic intervention, 28 day readmission, or ) Score of 8 or below: Consider discharge, with appropriate precautions. Score of 9 or above: Discharge NOT recommended. Consider admission with further workup and resuscitation as necessary.
[2025-07-06 01:00] VITALS: BP 117/57; PULSE 89; RESP 20; O2SAT 98
[2025-07-06] MEDS: Lidocaine 2% Viscous15 ML UDC 15 ML PO (01:08)
[2025-07-06 02:10] LABS: Troponin T High Sens 2 HR 14 ng/L (<=22)
[2025-07-06 02:31] VITALS: BP 138/73; PULSE 96; RESP 17; TEMP 36.7; O2SAT 98
== END 2025-07-06 02:32 | disposition home or self-care (01) ==
PROVIDERS: Emergency Provider Specialist/Technologist Athletic Trainer; PCP Family Medicine; Visit Provider Specialist/Technologist Athletic Trainer
DX: M79.604 Pain in right leg (principal); E11.9 Type 2 diabetes mellitus without complications; K30 Functional dyspepsia; R07.9 Chest pain, unspecified; E78.00 Pure hypercholesterolemia, unspecified; R06.02 Shortness of breath; I10 Essential (primary) hypertension; M79.89 Other specified soft tissue disorders; K21.9 Gastro-esophageal reflux disease without esophagitis; Q65.89 Other specified congenital deformities of hip
CPT/HCPCS: 71045; 80048; 83880; 84484; 85025; 93005; 93971; 99285; A4216

== ENCOUNTER → 2025-08-14 | Outpatient (CLI) | payer MEDICARE, MEDICAID, SELFPAY ==
[2025-08-14 12:58] LABS: Creatinine, Urine (random) 173.00 mg/dL (39.00-259.00); Microalbumin,Random Urine < 12.0 mg/L (<20 mg/L)
[2025-08-14 13:19] LABS: AST(SGOT) 19 U/L (<=37); Alanine Aminotransfer ALT/SGPT 21 U/L (<=46); Albumin, Serum 4.0 g/dL (3.5-5.0); Alkaline Phosphatase 103 U/L (40-129); Anion Gap 11 (7-18); BUN 18 mg/dL (4-19); BUN/Creat Ratio 25.7 RATIO (10-20); Calcium,Total 9.3 mg/dL (7.6-11.0); Carbon Dioxide 30.0 mmol/L (20.0-29.0); Chloride 100 mmol/L (96-106); Cholesterol 149 mg/dL (<=200); Globulin 3.9 g/dL (2.2-4.2); Glucose 168 mg/dL (70-99); Low Density Lipoprotein Calc. 83 mg/dL; Potassium 3.8 mmol/L (3.5-5.1); Triglycerides 183 mg/dL; Very Low Density Lipoprotein 37 mg/dL (5-40); Vitamin D,25 Hydroxy 12.1 ng/mL (30-100); cholesterol:hdl ratio screen 4.33
== END | disposition home or self-care (01) ==
LOC: MTLAB 10:00
PROVIDERS: PCP Family Medicine; Referring Provider Nurse Practitioner Family; Visit Provider Nurse Practitioner Family
DX: E11.65 Type 2 diabetes mellitus with hyperglycemia (principal); Z79.4 Long term (current) use of insulin; E55.9 Vitamin D deficiency, unspecified
CPT/HCPCS: 36415; 80053; 80061; 82043; 82306; 82570; 84443